=== PATIENT | female | born 1960 | race Caucasian/White ===

== ENCOUNTER 2016-08-14 20:20 | Inpatient (IN) | payer OTHER ==
[2016-08-14] VITALS (10 sets, daily range): BP systolic 69–183; BP diastolic 34–105; PULSE 84–110; RESP 18–36; TEMP 100.4–100.6; O2SAT 35–96
[~2016-08-14] VITALS: Ht 162.6 cm; Wt 96.4 kg
[~2016-08-14 20:20] MED LIST: HYDR-2768 PO; LEVO175T21 PO; MEVA40TA PO
[2016-08-14] MEDS ORDERED: NITROGLYCERIN 2% OINT 1 GM PACKET TOPICAL ONE (20:30)
[2016-08-14] MEDS ORDERED: FUROSEMIDE 100 MG/10 ML VIAL IVP ONE (20:30)
--- NOTE | 2016-08-14 20:39 | PD ---
HPI . Respiratory distress Chief Complaint: Respiratory Distress Time Seen by Provider: 20:26 Travel History International Travel<30 days: No Contact w/Intl Traveler<30days: No Traveled to known affect area: No History of Present Illness HPI Patient is brought in ambulatory by her daughter in respiratory distress. Very little history can be obtained from the patient because she is in respiratory distress. The majority of the history is obtained from her daughter notes her father (the patient's ). She has been sick for about a week with symptoms consistent with UTI. She's had fevers and chills. She's been short of breath. She's had fatigue. She has had a cough and chest pain with coughing. The father reports that she's been delirious for the last 3 days. [id number]: Respiratory SEVERITY: Severe DURATION: One week TIMING: Progressively worsening CONTEXT: Medical history of hypertension, obstructive sleep apnea and hypothyroidism MODIFYING FACTORS: No exacerbating or relieving factors ASSOCIATED SYMPTOMS: Fever, delirium, fatigue and cough PFSH Past Medical History Heart Rhythm Problems: No Cancer: No Cardiac Catheterization: No Cardiovascular Problems: No High Cholesterol: Yes Congestive Heart Failure: No Diabetes: No Endocrine: No Genitourinary: No Hepatitis: No Hiatal Hernia: No Immune Disorder: No Musculoskeletal: No Neurologic: No Psychiatric: No Reproductive: No Respiratory: Yes (SLEEP APNEA) Sleep Apnea: Yes Thyroid Disease: Yes (HYPOTHYRIOD) Tubal Ligation: Yes (1995) Past Surgical History Abdominal Surgery: No AICD: No Cardiac Surgery: No Coronary Artery Bypass Graft: No Ear Surgery: No Endocrine Surgery: No Eye Surgery: No Genitourinary Surgery: No Gynecologic Surgery: Yes (PARTIAL HYSTERECTOMY) Joint Replacement: No Oral Surgery: No Pacemaker: No Thoracic Surgery: No Social History Alcohol Use: No Tobacco Use: Yes (1PPD) Allergies-Medications (Allergen,Severity, Reaction): Coded Allergies: No Known Allergies (Verified , 08/14/16) Reported Meds & Prescriptions Reported Meds & Active Scripts Active Reported Levothyroxine (Levothyroxine Sodium) 50 Mcg Tab 50 Mcg PO DAILY Lovastatin 20 Mg Tab 20 Mg PO HS Levothyroxine (Levothyroxine Sodium) 200 Mcg Tab 200 Mcg PO DAILY Hydrochlorothiazide 12.5 Mg Cap 12.5 Mg PO DAILY Review of Systems ROS Limitations: Clinical Condition Except as stated in HPI: all other systems reviewed are Neg General / Constitutional: Positive: Fever, Chills Cardiovascular: Positive: Chest Pain or Discomfort Respiratory: Positive: Cough, Shortness of Breath Genitourinary: Positive: Urgency, Frequency, Dysuria Musculoskeletal: Positive: Myalgias Neurologic: Positive: Weakness, Change in Mentation Physical Exam Narrative GENERAL: The patient is very cyanotic with sats in the 30s to 40s on presentation. She is lucid. She is able to nod her head yes and no to questions. However, I am reluctant ask her questions because she is so short of breath. SKIN: Warm and dry. HEAD: Atraumatic. Normocephalic. EYES: Pupils equal and round. ENT: No nasal bleeding or discharge. Mucous membranes pink and moist. NECK: Trachea midline. Neck is supple. CARDIOVASCULAR: Regular, tachycardic rhythm. RESPIRATORY: No accessory muscle use. Diffuse rales. GASTROINTESTINAL: Abdomen soft, non-tender, nondistended. MUSCULOSKELETAL: No obvious deformities. One plus pretibial pitting edema. NEUROLOGICAL: Awake and alert. No obvious cranial nerve deficits. Motor grossly within normal limits. Minimal speech due to respiratory distress. PSYCHIATRIC: Unable to assess. Data Data Last Documented VS Vital Signs Date Time Temp Pulse Resp B/P Pulse Ox O2 Delivery O2 Flow Rate FiO2 08/14/16 22:21 92 100 08/14/16 20:54 106 36 BiPAP 08/14/16 20:50 100.6 178/103 08/14/16 20:20 15 Orders Complete Blood Count With Diff (08/14/16 20:26) Comprehensive Metabolic Panel (08/14/16 20:26) B-Type Natriuretic Peptide (08/14/16 20:26) D-Dimer (08/14/16 20:26) Magnesium (Mg) (08/14/16 20:26) Ckmb (Isoenzyme) Profile (08/14/16 20:26) Troponin I (08/14/16 20:26) Urinalysis - C+S If Indicated (08/14/16 20:26) Iv Access Insert/Monitor (08/14/16 20:26) Electrocardiogram (08/14/16 20:26) Ecg Monitoring (08/14/16 20:26) Oximetry (08/14/16 20:26) Oxygen Administration (08/14/16 20:26) Chest, Single Ap (08/14/16 20:26) Urinary Catheter Insert/Apply (08/14/16 20:26) Sodium Chloride 0.9% Flush (Ns Flush) (08/14/16 20:30) Furosemide Inj (Lasix Inj) (08/14/16 20:30) Resp Bipap / Cpap Non Invas Vt (08/14/16 20:26) Nitroglycerin 2% Oint (Nitroglycerin 2% (08/14/16 20:30) Arterial Blood Gas (Abg) (08/14/16 ) CKMB (08/14/16 20:30) CKMB% (08/14/16 20:30) Ceftriaxone Inj (Rocephin Inj) (08/14/16 21:30) Azithromycin Inj (Zithromax Inj) (08/14/16 21:30) Ct Pulmonary Angiogram (08/14/16 21:56) Arterial Blood Gas (Abg) (08/14/16 22:30) Labs Laboratory Tests Test 08/14/16 08/14/16 20:30 20:40 White Blood Count 13.6 TH/MM3 Red Blood Count 5.13 MIL/MM3 Hemoglobin 14.5 GM/DL Hematocrit 44.7 % Mean Corpuscular Volume 87.1 FL Mean Corpuscular Hemoglobin 28.2 PG Mean Corpuscular Hemoglobin 32.4 % Concent Red Cell Distribution Width 16.0 % Platelet Count 423 TH/MM3 Mean Platelet Volume 8.4 FL Neutrophils (%) (Auto) 87.3 % Lymphocytes (%) (Auto) 8.1 % Monocytes (%) (Auto) 4.3 % Eosinophils (%) (Auto) 0.0 % Basophils (%) (Auto) 0.3 % Neutrophils # (Auto) 11.9 TH/MM3 Lymphocytes # (Auto) 1.1 TH/MM3 Monocytes # (Auto) 0.6 TH/MM3 Eosinophils # (Auto) 0.0 TH/MM3 Basophils # (Auto) 0.0 TH/MM3 CBC Comment AUTO DIFF Differential Total Cells 100 Counted Neutrophils % (Manual) 69 % Band Neutrophils % 18 % Lymphocytes % 7 % Monocytes % 1 % Basophils % 1 % Neutrophils # (Manual) 12.4 TH/MM3 Metamyelocytes 1 % Myelocytes 1 % Promyelocytes 2 % Nucleated Red Blood Cells 10 /100 WBC Differential Comment FINAL DIFF MANUAL Platelet Estimate HIGH Platelet Morphology Comment ENLARGED D-Dimer Quantitative (PE/DVT) 1.62 MG/L FEU Sodium Level 135 MEQ/L Potassium Level 3.1 MEQ/L Chloride Level 87 MEQ/L Carbon Dioxide Level 40.7 MEQ/L Anion Gap 7 MEQ/L Blood Urea Nitrogen 23 MG/DL Creatinine 0.77 MG/DL Estimat Glomerular Filtration 78 ML/MIN Rate Random Glucose 204 MG/DL Calcium Level 8.3 MG/DL Magnesium Level 2.8 MG/DL Total Bilirubin 0.4 MG/DL Aspartate Amino Transf 77 U/L (AST/SGOT) Alanine Aminotransferase 72 U/L (ALT/SGPT) Alkaline Phosphatase 143 U/L Total Creatine Kinase 298 U/L Creatine Kinase MB 3.2 NG/ML Creatine Kinase MB % 1.1 % Troponin I 0.09 NG/ML B-Type Natriuretic Peptide 110 PG/ML Total Protein 8.1 GM/DL Albumin 2.5 GM/DL Urine Color YELLOW Urine Turbidity CLEAR Urine pH 6.0 Urine Specific [place] 1.033 Urine Protein 100 mg/dL Urine Glucose (UA) 70 mg/dL Urine Ketones NEG mg/dL Urine Occult Blood SMALL Urine Nitrite NEG Urine Bilirubin NEG Urine Urobilinogen 8.0 MG/DL Urine Leukocyte Esterase NEG Urine RBC 4 /hpf Urine WBC 5 /hpf Urine Squamous Epithelial 1 /hpf Cells Urine Mucus FEW /lpf Microscopic Urinalysis Comment CULT NOT INDICATED MDM Medical Decision Making Medical Screen Exam Complete: Yes Emergency Medical Condition: Yes Medical Record Reviewed: Yes (this patient does not have a whole lot of medical records in our system. She does have a history of hypertension and hypothyroidism.) Interpretation(s) EKG shows sinus tach at 111. No ST segment elevation or depression. Differential Diagnosis Differential diagnosis of dyspnea includes but is not limited to congestive heart failure, pneumonia, wheezing, pneumothorax, pulmonary embolism Narrative Course Patient presents in respiratory distress. Sats quickly improved with oxygen. She has not been placed on BiPAP and sats continued to improve. Her color is much better. Last Impressions Chest X-Ray 08/14/162025 Signed Impressions: Service Date/Time: Sunday, August 14, 2016 20:41 - CONCLUSION: 1. Bibasilar infiltrates, right greater than left 2. Pulmonary venous congestion 3. Cardiomegaly Kieran Ford MD The chest x-ray was independently viewed by me. She had already been given Nitropaste and based upon her physical exam. After seeing the chest x-ray, she was also given Rocephin and Zithromax for pneumonia. CBC & BMP Diagram 08/14/16 20:30 Her CK-MB is normal but her troponin is 0.09. BNP is 110. D-dimer is 1.62. UA is negative. Her blood gasses not in the computer but her PCO2 initially was 90. This patient has respiratory failure and both CHF and pneumonia. She probably also has COPD. Critical Care Narrative Aggregate critical care time was 45 minutes. Time to perform other separately billable procedures was not included in the critical care time. My time did not include minutes spent treating any other patients simultaneously or on activities that did not directly contribute to the patient's treatment. The services I provided to this patient were to treat and/or prevent clinically significant deterioration due to respiratory distress I provided critical care services requiring my management, as noted below: Chart data review, documentation time, medication orders and management, vital sign assessments/reviewing monitor data, ordering and reviewing lab tests, ordering and interpreting/reviewing x-rays and diagnostic studies, care of the patient and discussion of the patient with the admitting physicians Physician Communication Physician Communication Case discussed with Dr. Earl who will be admitting the patient to the ICU. Diagnosis Primary Impression: Respiratory failure Qualified Code: J96.02 - Acute respiratory failure with hypercapnia Additional Impressions: CHF (congestive heart failure) Qualified Code: I50.9 - Acute congestive heart failure, unspecified congestive heart failure type Pneumonia Qualified Code: J18.9 - Pneumonia of both lungs due to infectious organism, unspecified part of lung Admitting Information Admitting Physician Requests: Admit Condition: Serious Gissel Lopez MD Aug 14, 2016 20:39
--- NOTE | 2016-08-14 20:48 | RADRPT ---
EXAM DATE/TIME: 08/14/2016 20:41 [facility] COMPARISON: No previous studies available for comparison. INDICATIONS : Short of breath MEDICAL HISTORY : None. SURGICAL HISTORY : None. ENCOUNTER: Initial ACUITY: 1 week PAIN SCORE: 0/10 LOCATION: chest FINDINGS: A single view of the chest demonstrates bibasilar infiltrates, right greater than left. There is prom inence of the pulmonary vasculature characteristic of pulmonary venous congestion. The heart size is enlarged. Bony structures are grossly intact.. CONCLUSION: 1. Bibasilar infiltrates, right greater than left 2. Pulmonary venous congestion 3. Cardiomegaly Kieran Ford MD on August 14, 2016 at 20:46 Board Certified Radiologist. This report was verified electronically.
[2016-08-14 20:59] LABS: AUTOMATED NEUTROPHIL # 11.9 TH/MM3 (1.8-7.7); BASOPHIL % 0.3 % (0.0-2.0); HEMATOCRIT 44.7 % (35.0-46.0); LYMPH % 8.1 % (9.0-44.0); LYMPHOCYTE # 1.1 TH/MM3 (1.0-4.8); MEAN CELL VOLUME 87.1 FL (80.0-100.0); MEAN CORPUSCULAR HEMOGLOBIN 28.2 PG (27.0-34.0); MEAN CORPUSCULAR HGB CONC 32.4 % (32.0-36.0); MONO % 4.3 % (0.0-8.0); NEUT % 87.3 % (16.0-70.0); PLATELET COUNT 423 TH/MM3 (150-450); RED BLOOD COUNT 5.13 MIL/MM3 (4.00-5.30); WHITE BLOOD COUNT 13.6 TH/MM3 (4.0-11.0)
[2016-08-14 21:01] LABS: BLOOD, URINE SMALL (NEG); COMMENT (UR) CULT NOT INDICATED; CULTURE IF INDICATED CULT NOT INDICATED; GLUCOSE,URINE 70 mg/dL (NEG); KETONE, URINE NEG (NEG); MUCUS URINE FEW /lpf (OCC); NITRITE,URINE NEG (NEG); SQUAMOUS EPITHELIAL CELL URINE 1 /hpf (0-5); URINE COLOR YELLOW (YELLW/STRAW)
[2016-08-14 21:02] LABS: HEMO FLAGS AUTO DIFF
[2016-08-14 21:14] LABS: ANION GAP 7 MEQ/L (5-15); AST (GOT) 77 U/L (15-37); BICARBONATE 40.7 MEQ/L (21.0-32.0); BLOOD UREA NITROGEN 23 MG/DL (7-18); CHLORIDE 87 MEQ/L (98-107); GLOMERULAR FILTRATION RATE 78 ML/MIN (>89); MAGNESIUM 2.8 MG/DL (1.5-2.5); POTASSIUM 3.1 MEQ/L (3.5-5.1); SODIUM (NA) 135 MEQ/L (136-145)
[2016-08-14 21:19] LABS: ALKALINE PHOSPHATASE 143 U/L (45-117); ALT (GPT) 72 U/L (10-53); CREATINE KINASE 298 U/L (26-192); TOTAL BILIRUBIN ADULT 0.4 MG/DL (0.2-1.0)
[2016-08-14] MEDS ORDERED: HYDR12.57 PO (21:26)
[2016-08-14] MEDS ORDERED: LEVO200T4 PO (21:26)
[2016-08-14] MEDS ORDERED: LOVA20TA PO (21:26)
[2016-08-14] MEDS ORDERED: LEVO50TA4 PO (21:27)
[2016-08-14] MEDS ORDERED: AZITHROMYCIN INJ 500 MG in SODIUM CHLOR 0.9% 250 ML INJ 250 ML IV ONE (21:30)
[2016-08-14] MEDS ORDERED: cefTRIAXone INJ 2,000 MG in SODIUM CHLORIDE 0.9% INJ 100 ML IV ONE (21:30)
[2016-08-14 21:31] LABS: CKMB 3.2 NG/ML (0.5-3.6)
[2016-08-14 21:34] LABS: BANDS 18 % (0-6); BASOPHILS 1 % (0-2); CORRECTED NUCLEATED RBC 10 /100 WBC (0-0); METAMYELOCYTES 1 % (0-1); MYELOCYTES 1 % (0-0); NEUTROPHIL # MANUAL DIFF 12.4 TH/MM3 (1.8-7.7); POLYS (SEG NEUTROPHILS) 69 % (16-70); PROMYELOCYTES 2 % (0-0); SCAN/DIFF FINAL DIFF MANUAL; WBC DIFF SAMPLE 100
[2016-08-14 21:35] LABS: PLATELET ESTIMATE SMEAR HIGH (NORMAL); PLATELET MORPHOLOGY ENLARGED (NORMAL)
[2016-08-14] MEDS ORDERED: SUCCINYLCHOLINE CHLORIDE 200 MG/10 ML VIAL IM ONE (22:45)
[2016-08-14] MEDS ORDERED: SUCCINYLCHOLINE CHLORIDE 200 MG/10 ML VIAL ONE (22:45)
[2016-08-14] MEDS ORDERED: PROPOFOL 1000 MG/100 ML BTL IV PRN (22:45)
[2016-08-14] MEDS ORDERED: ETOMIDATE 20 MG/10 ML VIAL IV PUSH ONE (22:45)
[2016-08-14] MEDS ORDERED: MIDAZOLAM 100 MG/100 ML INJ 100 ML IV SCH (23:15)
[2016-08-14] MEDS ORDERED: MISCELLANEOUS NURSING INFORMATION XX SCH (23:15)
[2016-08-14] MEDS ORDERED: CHLORHEXIDINE GLUCONATE 2 % 1 PACK (2 CLOTHS) TOP PRN (23:15)
[2016-08-14] MEDS ORDERED: ONDANSETRON HCL 4 MG/2 ML VIAL IV PRN (23:15)
[2016-08-14] MEDS: DOCUSATE SODIUM 100 MG/10 ML UDC G-TUBE SCH (23:15)
[2016-08-14] MEDS ORDERED: METOCLOPRAMIDE HCL 10 MG/2 ML VIAL IV PRN (23:15)
--- NOTE | 2016-08-14 23:17 | HHI.HP ---
HPI Service Critical Care Medicine Primary Care Physician Unknown Admission Diagnosis RESP FAILURE, PNEUMONIA, CHF Diagnosis: Travel History International Travel<30 Days: No Contact w/Intl Traveler <30 Da: No Traveled to Known Affected Are: No History of Present Illness 56-year-old morbidly obese female brought in the emergency department in respiratory distress. She was intubated by ER attending. She has been sick for about a week with symptoms consistent with UTI. She's had fevers and chills. She's been short of breath. She's had fatigue. She has had a cough and chest pain with coughing. The family reports that she's been delirious for the last 3 days. Review of Systems ROS Unable to obtain patient is intubated Past Family Social History Allergies: Coded Allergies: No Known Allergies (Verified , 08/14/16) Past Medical History Hypothyroidism Dyslipidemia Obstructive sleep apnea Obesity hypoventilation syndrome Tobacco use disorder Past Surgical History Tubal ligation Hysterectomy Reported Medications Reported Meds & Active Scripts Active Reported Levothyroxine (Levothyroxine Sodium) 50 Mcg Tab 50 Mcg PO DAILY Lovastatin 20 Mg Tab 20 Mg PO HS Levothyroxine (Levothyroxine Sodium) 200 Mcg Tab 200 Mcg PO DAILY Hydrochlorothiazide 12.5 Mg Cap 12.5 Mg PO DAILY Active Ordered Medications Current Medications Medications (Trade) Dose Ordered Sig/Josephine Route PRN Reason Start Time Stop Time Status Last Admin Dose Admin IV Flush (NS Flush) 2 ml UNSCH PRN IVF FLUSH AFTER USING IV ACCESS 08/14/16 20:30 Propofol (Diprivan 1000 Mg/100ml Inj) search Sets for Drip. TITRATE PRN IV AGITATION 08/14/16 22:45 08/14/16 23:21 Hydrochlorothiazide (Microzide) 12.5 mg DAILY PO 08/15/16 09:00 Levothyroxine Sodium (Synthroid) 200 mcg DAILY@06 PO 08/15/16 06:00 Pravastatin Sodium 20 mg 20 mg HS PO 08/15/16 21:00 Sodium Chloride (NS 1000 ml Inj) 1,000 ml @ 84 mls/hr [id number] IV 08/14/16 23:09 Sodium Chloride (NS Flush) 2 ml UNSCH PRN IVF FLUSH AFTER USING IV ACCESS 08/14/16 23:15 Sodium Chloride (NS Flush) 2 ml BID IV FLUSH 08/15/16 09:00 Acetaminophen (Tylenol) 650 mg Q6H PRN PO PAIN 1-10 AND/OR FEVER >101F 08/14/16 23:15 Morphine Sulfate (Morphine Inj) 2 mg Q2H PRN IV PAIN SCALE 6 TO 10 08/14/16 23:15 Lorazepam (Ativan Inj) 2 mg Q4H PRN IV Agitation/Sedation 08/14/16 23:15 Artificial Tears (Tears Naturale Opth Soln) 1 drop TID EACH EYE 08/15/16 09:00 Ondansetron HCl (Zofran Inj) 4 mg Q6H PRN IV NAUSEA OR VOMITING 08/14/16 23:15 Metoclopramide HCl (Reglan Inj) 10 mg Q6H PRN IV NAUSEA OR VOMITING 08/14/16 23:15 Docusate Sodium (Colace Liq) 100 mg Q12H G-TUBE 08/14/16 23:15 Heparin Sodium (Porcine) (Heparin Inj) 5,000 units Q8H SQ 08/14/16 23:15 Miscellaneous Information 1 [id number] XX 08/14/16 23:15 Chlorhexidine Gluconate (Chlorhexidine 2% Cloth) 3 pack Taper DAILY@04 TOP 08/15/16 04:00 08/11/17 03:59 Chlorhexidine Gluconate 3 pack 3 pack UNSCH PRN TOP HYGIENIC CARE 08/14/16 23:15 Propofol (Diprivan 1000 Mg/100ml Inj) 100 ml @ 0 mls/hr TITRATE IV 08/14/16 23:15 Protein 2 pack 2 pack TID G-TUBE 08/15/16 09:00 Midazolam HCl 100 ml @ 0 mls/hr TITRATE IV 08/14/16 23:15 Fentanyl Citrate (fentaNYL DRIP) 250 ml @ 0 mls/hr TITRATE IV 08/14/16 23:15 Family History Noncontributory Social History Tobacco use Physical Exam Vital Signs Vital Signs Date Time Temp Pulse Resp B/P Pulse Ox O2 Delivery O2 Flow Rate FiO2 08/14/16 22:21 92 100 08/14/16 20:54 106 36 95 BiPAP 08/14/16 20:50 100.6 110 36 178/103 95 BiPAP 08/14/16 20:37 91 100 08/14/16 20:30 110 36 183/105 92 BiPAP 100 08/14/16 20:20 76 Non-Rebreather 15 08/14/16 20:20 108 28 158/88 35 Room Air Physical Exam GENERAL: Morbidly obese female, intubated, well-developed patient. SKIN: Warm and dry. HEAD: Normocephalic. EYES: No scleral icterus. No injection or drainage. NECK: Supple, trachea midline. No JVD or lymphadenopathy. CARDIOVASCULAR: Regular rate and rhythm without murmurs, gallops, or rubs. RESPIRATORY: Breath sounds equal bilaterally. No accessory muscle use. GASTROINTESTINAL: Abdomen soft, non-tender, nondistended. MUSCULOSKELETAL: No cyanosis, or edema. BACK: Nontender without obvious deformity. No CVA tenderness. EXTREMITIES: No edema clubbing or cyanosis Laboratory Laboratory Tests Test 08/14/16 08/14/16 20:30 20:40 White Blood Count 13.6 Red Blood Count 5.13 Hemoglobin 14.5 Hematocrit 44.7 Mean Corpuscular Volume 87.1 Mean Corpuscular Hemoglobin 28.2 Mean Corpuscular Hemoglobin 32.4 Concent Red Cell Distribution Width 16.0 Platelet Count 423 Mean Platelet Volume 8.4 Neutrophils (%) (Auto) 87.3 Lymphocytes (%) (Auto) 8.1 Monocytes (%) (Auto) 4.3 Eosinophils (%) (Auto) 0.0 Basophils (%) (Auto) 0.3 Neutrophils # (Auto) 11.9 Lymphocytes # (Auto) 1.1 Monocytes # (Auto) 0.6 Eosinophils # (Auto) 0.0 Basophils # (Auto) 0.0 CBC Comment AUTO DIFF Differential Total Cells 100 Counted Neutrophils % (Manual) 69 Band Neutrophils % 18 Lymphocytes % 7 Monocytes % 1 Basophils % 1 Neutrophils # (Manual) 12.4 Metamyelocytes 1 Myelocytes 1 Promyelocytes 2 Nucleated Red Blood Cells 10 Differential Comment FINAL DIFF MANUAL Platelet Estimate HIGH Platelet Morphology Comment ENLARGED D-Dimer Quantitative (PE/DVT) 1.62 Sodium Level 135 Potassium Level 3.1 Chloride Level 87 Carbon Dioxide Level 40.7 Anion Gap 7 Blood Urea Nitrogen 23 Creatinine 0.77 Estimat Glomerular Filtration 78 Rate Random Glucose 204 Calcium Level 8.3 Magnesium Level 2.8 Total Bilirubin 0.4 Aspartate Amino Transf 77 (AST/SGOT) Alanine Aminotransferase 72 (ALT/SGPT) Alkaline Phosphatase 143 Total Creatine Kinase 298 Creatine Kinase MB 3.2 Creatine Kinase MB % 1.1 Troponin I 0.09 B-Type Natriuretic Peptide 110 Total Protein 8.1 Albumin 2.5 Urine Color YELLOW Urine Turbidity CLEAR Urine pH 6.0 Urine Specific [place] 1.033 Urine Protein 100 Urine Glucose (UA) 70 Urine Ketones NEG Urine Occult Blood SMALL Urine Nitrite NEG Urine Bilirubin NEG Urine Urobilinogen 8.0 Urine Leukocyte Esterase NEG Urine RBC 4 Urine WBC 5 Urine Squamous Epithelial 1 Cells Urine Mucus FEW Microscopic Urinalysis Comment CULT NOT INDICATED Result Diagram: 08/14/16202908/14/162029 Imaging Last 24 hours Impressions Chest X-Ray 08/14/162025 Signed Impressions: Service Date/Time: Sunday, August 14, 2016 20:41 - CONCLUSION: 1. Bibasilar infiltrates, right greater than left 2. Pulmonary venous congestion 3. Cardiomegaly Kieran Ford MD Assessment and Plan Problem List: (1) CHF (congestive heart failure) ICD Code: I50.9 Status: Acute (2) Respiratory failure ICD Code: J96.90 Status: Acute (3) Pneumonia ICD Code: J18.9 Status: Acute Assessment and Plan Respiratory failure - Pneumonia community-acquired - Tobacco use disorder - Mechanical ventilation - DuoNeb scheduled and as needed - Broad-spectrum antibiotics - No weaning until acidosis resolves - We'll rule out cardiac origin of the distress with series of troponins and EKGs - Echocardiogram a.m. Pneumonia - Blood culture - Zosyn and azithromycin - Respiratory cultures - Follow-up results and sensitivity - Urine antigens Hypothyroidism - Repeat TSH level - Continue levothyroxine per home dosing Dyslipidemia - Statins DVT GI prophylaxis - Heparin subcutaneous and Pepcid Critical Care: The total critical care time was 35 minutes. Time to perform other separately billable procedures was not included in the critical care time. Problem Qualifiers (1) CHF (congestive heart failure): Qualified Code: I50.9 - Acute congestive heart failure, unspecified congestive heart failure type (2) Respiratory failure: Qualified Code: J96.02 - Acute respiratory failure with hypercapnia (3) Pneumonia: Qualified Code: J18.9 - Pneumonia of both lungs due to infectious organism, unspecified part of lung Arturo Ortiz MD Aug 14, 2016 23:17
[2016-08-14 23:38] LABS: BLOOD GAS BASE EXCESS 18.5 mmol/L (-2-2); BLOOD GAS CARBOXYHEMOGLOBIN 1.4 % (0-4); BLOOD GAS HCO3 46 mmol/L (22-26); BLOOD GAS METHEMOGLOBIN 0.9 % (0-2); BLOOD GAS O2 HGB SATURATION 94 % (90-100); BLOOD GAS OXYGEN CONTENT 19.7 Vol % (12.0-20.0); BLOOD GAS PCO2 95 mmHg (38-42); BLOOD GAS PO2 101 mmHG (61-120); BLOOD GAS TOTAL HGB 14.9 G/DL (12.0-16.0); TEMP CORR TO 98.6
[2016-08-14 23:39] LABS: CRITICAL VALUE YES; DRAW SITE LT RADIAL; FIO2 100 %; NUMBER OF ARTERIAL PUNCTURES 1; OXYGEN DEVICE BIPAP; STAT YES; ULNAR PULSE Y
[2016-08-14 23:40] LABS: BLOOD GAS BASE EXCESS 20.8 mmol/L (-2-2); BLOOD GAS CARBOXYHEMOGLOBIN 1.1 % (0-4); BLOOD GAS HCO3 50 mmol/L (22-26); BLOOD GAS METHEMOGLOBIN 1.2 % (0-2); BLOOD GAS O2 HGB SATURATION 91 % (90-100); BLOOD GAS OXYGEN CONTENT 19.6 Vol % (12.0-20.0); BLOOD GAS PCO2 146 mmHg (38-42); BLOOD GAS PO2 92 mmHG (61-120); BLOOD GAS TOTAL HGB 15.3 G/DL (12.0-16.0); TEMP CORR TO 98.6
[2016-08-14 23:41] LABS: CRITICAL VALUE YES; DRAW SITE LT RADIAL; FIO2 100 %; NUMBER OF ARTERIAL PUNCTURES 1; OXYGEN DEVICE BIPAP; STAT YES; ULNAR PULSE Y
[2016-08-14 23:42] LABS: BLOOD GAS BASE EXCESS 15.8 mmol/L (-2-2); BLOOD GAS CARBOXYHEMOGLOBIN 1.2 % (0-4); BLOOD GAS HCO3 43 mmol/L (22-26); BLOOD GAS METHEMOGLOBIN 0.9 % (0-2); BLOOD GAS O2 HGB SATURATION 90 % (90-100); BLOOD GAS OXYGEN CONTENT 17.6 Vol % (12.0-20.0); BLOOD GAS PCO2 98 mmHg (38-42); BLOOD GAS PO2 75 mmHG (61-120); BLOOD GAS TOTAL HGB 13.9 G/DL (12.0-16.0); TEMP CORR TO 98.6
[2016-08-14 23:43] LABS: CRITICAL VALUE YES; DRAW SITE RT RADIAL; NUMBER OF ARTERIAL PUNCTURES 1; OXYGEN DEVICE VENT; STAT NO; ULNAR PULSE Y
[2016-08-15] VITALS (21 sets, daily range): BP systolic 85–115; BP diastolic 55–66; PULSE 65–83; RESP 18–21; TEMP 98.8–100.6; O2SAT 91–99
--- NOTE | 2016-08-15 00:15 | RADRPT ---
EXAM DATE/TIME: 08/15/2016 00:04 [facility] COMPARISON: CHEST SINGLE AP, August 14, 2016, 20:41. INDICATIONS : Post intubation. MEDICAL HISTORY : None. SURGICAL HISTORY : None. ENCOUNTER: Initial ACUITY: 1 day PAIN SCORE: Non-responsive. LOCATION: Bilateral chest FINDINGS: Bilateral pleural effusions are again seen. Endotracheal tube tip at the inferior margin of the clavi cles. Enteric tube courses beneath the diaphragm. Patchy bilateral airspace disease. CONCLUSION: Endotracheal tube as above. Terry Estrada MD on August 15, 2016 at 0:13 Board Certified Radiologist. This report was verified electronically.
[2016-08-15] MEDS ORDERED: fentaNYL DRIP 250 ML ONE (00:31)
[2016-08-15] MEDS ORDERED: MIDAZOLAM 100 MG/100 ML INJ 100 ML ONE (00:32)
[2016-08-15] MEDS: SODIUM CHLOR 0.9% 1000 ML INJ 1,000 ML IV SCH ×3 (00:49→22:04)
[2016-08-15] MEDS: fentaNYL DRIP 250 ML IV SCH (00:49)
[2016-08-15] MEDS: HEPARIN SODIUM - SQ 10,000 UNITS/ML VIAL SQ SCH ×4 (00:50→22:05)
[2016-08-15] MEDS ORDERED: IOHEXOL 350 MG/ML 10 ML VIAL (for RAD DIAG) IV ONE (02:35)
--- NOTE | 2016-08-15 02:47 | RADRPT ---
EXAM DATE/TIME: 08/15/2016 02:33 [facility] COMPARISON: No previous studies available for comparison. INDICATIONS : Respiratory failure. Elevated D-Dimer. Possible emboli. IV CONTRAST: 72 cc Omnipaque 350 (iohexol) IV RADIATION DOSE: 23.38 CTDIvol (mGy) MEDICAL HISTORY : Hypertension. SURGICAL HISTORY : None. ENCOUNTER: Initial ACUITY: 1 day PAIN SCALE: 0/10 LOCATION: Bilateral chest TECHNIQUE: Volumetric scanning of the chest was performed using a pulmonary embolism protocol MIP images were re constructed. Using automated exposure control and adjustment of the mA and/or kV according to patien t size, radiation dose was kept as low as reasonably achievable to obtain optimal diagnostic quality images. FINDINGS: There is bilateral lower lobe consolidation with air bronchogram formation noted and minimal aerated right lower lobe. Patchy areas of consolidation right middle lobe and both upper lobes also noted. Th ere is subcarinal adenopathy measuring up to 2.1 cm in short axis dimension, right hilar adenopathy u p to 1.9 cm in short axis dimension, and right paratracheal adenopathy up to 1.5 cm in short axis dim ension. There is no evidence for pulmonary embolism. Endotracheal tube is present as well as an NG tu be. CONCLUSION: 1. No evidence for pulmonary embolism. 2. Multifocal consolidation greatest in the right lower lobe and associated adenopathy. Terry Estrada MD on August 15, 2016 at 2:42 Board Certified Radiologist. This report was verified electronically.
[2016-08-15] MEDS: RESP: ALBUTEROL 2.5 MG/IPRATROPIUM 0.5 MG NEB (SCH) INH ×4 (03:06→21:48)
[2016-08-15] MEDS: PIPERACIL-TAZO 4.5 GM PREMIX 100 ML IV SCH ×5 (03:51→22:10)
[2016-08-15] MEDS: CHLORHEXIDINE GLUCONATE 2 % 1 PACK (2 CLOTHS) TOP SCH (04:00)
[2016-08-15 04:17] LABS: BASOPHIL % 0.2 % (0.0-2.0); HEMATOCRIT 36.7 % (35.0-46.0); LYMPH % 7.4 % (9.0-44.0); LYMPHOCYTE # 0.7 TH/MM3 (1.0-4.8); MEAN CELL VOLUME 87.5 FL (80.0-100.0); MEAN CORPUSCULAR HEMOGLOBIN 29.5 PG (27.0-34.0); MEAN CORPUSCULAR HGB CONC 33.7 % (32.0-36.0); NEUT % 89.4 % (16.0-70.0); PLATELET COUNT 340 TH/MM3 (150-450); RED BLOOD COUNT 4.19 MIL/MM3 (4.00-5.30); RED CELL DISTRIBUTION WIDTH 16.3 % (11.6-17.2)
[2016-08-15 04:22] LABS: HEMO FLAGS AUTO DIFF
[2016-08-15 04:29] LABS: BICARBONATE 38.5 MEQ/L (21.0-32.0); CALCIUM-PROTEIN CORRECTED 7.8 MG/DL (8.5-10.1); MAGNESIUM 2.3 MG/DL (1.5-2.5); POTASSIUM 3.3 MEQ/L (3.5-5.1); TOTAL BILIRUBIN ADULT 0.2 MG/DL (0.2-1.0)
--- NOTE | 2016-08-15 05:44 | RADRPT ---
EXAM DATE/TIME: 08/15/2016 04:59 [facility] COMPARISON: CHEST SINGLE AP, August 15, 2016, 0:04. INDICATIONS : Respiratory failure. MEDICAL HISTORY : Unobtainable. SURGICAL HISTORY : Unobtainable. ENCOUNTER: Subsequent ACUITY: 1 day PAIN SCORE: Non-responsive. LOCATION: Bilateral chest FINDINGS: There is consolidation within both lower lobes. Endotracheal tube tip at the inferior margin of the c lavicles. NG tube courses beneath the diaphragm. Cardiomegaly. CONCLUSION: Pulmonary consolidation as above. Terry Estrada MD on August 15, 2016 at 5:42 Board Certified Radiologist. This report was verified electronically.
[2016-08-15] MEDS: LEVOTHYROXINE SODIUM 200 MCG TAB PO SCH (06:00)
[2016-08-15 06:35] LABS: BLOOD GAS BASE EXCESS 13.4 mmol/L (-2-2); BLOOD GAS CARBOXYHEMOGLOBIN 1.5 % (0-4); BLOOD GAS HCO3 38 mmol/L (22-26); BLOOD GAS METHEMOGLOBIN 1.2 % (0-2); BLOOD GAS O2 HGB SATURATION 91 % (90-100); BLOOD GAS OXYGEN CONTENT 16.1 Vol % (12.0-20.0); BLOOD GAS PCO2 50 mmHg (38-42); BLOOD GAS PO2 65 mmHg (61-120); BLOOD GAS TOTAL HGB 12.6 G/DL (12.0-16.0); CRITICAL VALUE NO; OXYGEN DEVICE VENTILATOR; TEMP CORR TO 98.6
[2016-08-15 06:36] LABS: DRAW SITE RT BRACHIAL; FIO2 75 %; NUMBER OF ARTERIAL PUNCTURES 1; STAT NO; VENT SETTINGS PRVC/AC
[2016-08-15 06:50] LABS: BANDS 6 % (0-6); CORRECTED NUCLEATED RBC 8 /100 WBC (0-0); NEUTROPHIL # MANUAL DIFF 8.6 TH/MM3 (1.8-7.7); POLYS (SEG NEUTROPHILS) 90 % (16-70); WBC DIFF SAMPLE 100
[2016-08-15 06:51] LABS: PLATELET ESTIMATE SMEAR NORMAL (NORMAL); PLATELET MORPHOLOGY NORMAL (NORMAL); SCAN/DIFF FINAL DIFF MANUAL
[2016-08-15] MEDS ORDERED: POTASSIUM PHOSPHATE INJ 30 MMOL in SODIUM CHLOR 0.9% 250 ML INJ 250 ML IV PRN (08:15)
[2016-08-15] MEDS ORDERED: POTASSIUM PHOSPHATE MONOBASIC 500 MG TAB PO/TUBE PRN (08:15)
[2016-08-15] MEDS ORDERED: SODIUM PHOSPHATE INJ 30 MMOL in SODIUM CHLOR 0.9% 250 ML INJ 240 ML IV PRN (08:15)
[2016-08-15] MEDS ORDERED: POTASSIUM PHOSPHATE MONOBASIC 500 MG TAB PO PRN (08:15)
[2016-08-15] MEDS ORDERED: MAGNESIUM OXIDE 400 MG TAB PO PRN (08:15)
[2016-08-15] MEDS ORDERED: MAGNESIUM SULFATE INJ 2 GM in SODIUM CHLORIDE 0.9% INJ 96 ML IV PRN (08:15)
[2016-08-15] MEDS ORDERED: MAGNESIUM SULFATE INJ 4 GM in SODIUM CHLORIDE 0.9% INJ 92 ML IV PRN (08:15)
[2016-08-15] MEDS: ARTIFICIAL TEARS OPTH SOLN 15 ML BTL EACH EYE SCH ×3 (08:23→17:01)
[2016-08-15] MEDS: BENEPROTEIN POWDER 1 PACK G-TUBE SCH ×3 (08:24→17:01)
[2016-08-15] MEDS: SODIUM CHLORIDE 0.9% FLUSH 10 ML FLUSH IV FLUSH SCH ×2 (08:25→21:00)
[2016-08-15] MEDS: SODIUM CHLORIDE 0.9% FLUSH 5 ML FLUSH IVF PRN ×2 (08:25→21:58)
--- NOTE | 2016-08-15 08:49 | HHI.CCPN ---
Subjective Remarks/Hospital Course 56-year-old morbidly obese female brought in the emergency department in respiratory distress. She was intubated by ER attending. She has been sick for about a week with symptoms consistent with UTI. She's had fevers and chills. She's been short of breath. She's had fatigue. She has had a cough and chest pain with coughing. The family reports that she's been delirious for the last 3 days. 08/15 Patient is sedated with Diprivan, Versed, Fentanyl and intubated. CTA chest showed no PE multifocal consolidation greatest in RLL. Tmax 100.6 Objective Vital Signs Date Time Temp Pulse Resp B/P Pulse Ox O2 Delivery O2 Flow Rate FiO2 08/15/16 07:22 93 50 08/15/16 06:00 69 08/15/16 04:00 99.4 18 101/56 08/15/16 01:05 Ventilator 08/14/16 20:20 15 Result Diagram: 08/15/16 0349 08/15/16 0349 Other Results Laboratory Tests Test 08/14/16 08/14/16 08/14/16 08/14/16 20:30 20:40 21:19 22:30 White Blood Count 13.6 TH/MM3 Red Blood Count 5.13 MIL/MM3 Hemoglobin 14.5 GM/DL Hematocrit 44.7 % Mean Corpuscular Volume 87.1 FL Mean Corpuscular Hemoglobin 28.2 PG Mean Corpuscular Hemoglobin 32.4 % Concent Red Cell Distribution Width 16.0 % Platelet Count 423 TH/MM3 Mean Platelet Volume 8.4 FL Neutrophils (%) (Auto) 87.3 % Lymphocytes (%) (Auto) 8.1 % Monocytes (%) (Auto) 4.3 % Eosinophils (%) (Auto) 0.0 % Basophils (%) (Auto) 0.3 % Neutrophils # (Auto) 11.9 TH/MM3 Lymphocytes # (Auto) 1.1 TH/MM3 Monocytes # (Auto) 0.6 TH/MM3 Eosinophils # (Auto) 0.0 TH/MM3 Basophils # (Auto) 0.0 TH/MM3 CBC Comment AUTO DIFF Differential Total Cells 100 Counted Neutrophils % (Manual) 69 % Band Neutrophils % 18 % Lymphocytes % 7 % Monocytes % 1 % Basophils % 1 % Neutrophils # (Manual) 12.4 TH/MM3 Metamyelocytes 1 % Myelocytes 1 % Promyelocytes 2 % Nucleated Red Blood Cells 10 /100 WBC Differential Comment FINAL DIFF MANUAL Platelet Estimate HIGH Platelet Morphology Comment ENLARGED D-Dimer Quantitative (PE/DVT) 1.62 MG/L FEU Sodium Level 135 MEQ/L Potassium Level 3.1 MEQ/L Chloride Level 87 MEQ/L Carbon Dioxide Level 40.7 MEQ/L Anion Gap 7 MEQ/L Blood Urea Nitrogen 23 MG/DL Creatinine 0.77 MG/DL Estimat Glomerular Filtration 78 ML/MIN Rate Random Glucose 204 MG/DL Calcium Level 8.3 MG/DL Magnesium Level 2.8 MG/DL Total Bilirubin 0.4 MG/DL Aspartate Amino Transf 77 U/L (AST/SGOT) Alanine Aminotransferase 72 U/L (ALT/SGPT) Alkaline Phosphatase 143 U/L Total Creatine Kinase 298 U/L Creatine Kinase MB 3.2 NG/ML Creatine Kinase MB % 1.1 % Troponin I 0.09 NG/ML B-Type Natriuretic Peptide 110 PG/ML Total Protein 8.1 GM/DL Albumin 2.5 GM/DL Urine Color YELLOW Urine Turbidity CLEAR Urine pH 6.0 Urine Specific [place] 1.033 Urine Protein 100 mg/dL Urine Glucose (UA) 70 mg/dL Urine Ketones NEG mg/dL Urine Occult Blood SMALL Urine Nitrite NEG Urine Bilirubin NEG Urine Urobilinogen 8.0 MG/DL Urine Leukocyte Esterase NEG Urine RBC 4 /hpf Urine WBC 5 /hpf Urine Squamous Epithelial 1 /hpf Cells Urine Mucus FEW /lpf Microscopic Urinalysis Comment CULT NOT INDICATED Blood Gas Puncture Site LT RADIAL LT RADIAL Blood Gas Patient Temperature 98.6 98.6 Blood Gas HCO3 46 mmol/L 50 mmol/L Blood Gas Base Excess 18.5 mmol/L 20.8 mmol/L Blood Gas Oxygen Saturation 94 % 91 % Arterial Blood pH 7.30 7.16 Arterial Blood Partial 95 mmHg 146 mmHg Pressure CO2 Arterial Blood Partial 101 mmHG 92 mmHG Pressure O2 Arterial Blood Oxygen Content 19.7 Vol % 19.6 Vol % Arterial Blood 1.4 % 1.1 % Carboxyhemoglobin Arterial Blood Methemoglobin 0.9 % 1.2 % Blood Gas Hemoglobin 14.9 G/DL 15.3 G/DL Oxygen Delivery Device BIPAP BIPAP Blood Gas Ventilator Setting SEE COMMENT SEE COMMENT Blood Gas Inspired Oxygen 100 % 100 % Test 08/14/16 08/15/16 08/15/16 08/15/16 23:30 03:17 03:49 06:20 Blood Gas Puncture Site RT RADIAL RT BRACHIAL Blood Gas Patient Temperature 98.6 98.6 Blood Gas HCO3 43 mmol/L 38 mmol/L Blood Gas Base Excess 15.8 mmol/L 13.4 mmol/L Blood Gas Oxygen Saturation 90 % 91 % Arterial Blood pH 7.27 7.49 Arterial Blood Partial 98 mmHg 50 mmHg Pressure CO2 Arterial Blood Partial 75 mmHG 65 mmHg Pressure O2 Arterial Blood Oxygen Content 17.6 Vol % 16.1 Vol % Arterial Blood 1.2 % 1.5 % Carboxyhemoglobin Arterial Blood Methemoglobin 0.9 % 1.2 % Blood Gas Hemoglobin 13.9 G/DL 12.6 G/DL Oxygen Delivery Device VENT VENTILATOR Blood Gas Ventilator Setting SEE COMMENT PRVC/AC Nasal Screen MRSA (PCR) NEGATIVE White Blood Count 9.0 TH/MM3 Red Blood Count 4.19 MIL/MM3 Hemoglobin 12.4 GM/DL Hematocrit 36.7 % Mean Corpuscular Volume 87.5 FL Mean Corpuscular Hemoglobin 29.5 PG Mean Corpuscular Hemoglobin 33.7 % Concent Red Cell Distribution Width 16.3 % Platelet Count 340 TH/MM3 Mean Platelet Volume 8.4 FL Neutrophils (%) (Auto) 89.4 % Lymphocytes (%) (Auto) 7.4 % Monocytes (%) (Auto) 3.0 % Eosinophils (%) (Auto) 0.0 % Basophils (%) (Auto) 0.2 % Neutrophils # (Auto) 8.0 TH/MM3 Lymphocytes # (Auto) 0.7 TH/MM3 Monocytes # (Auto) 0.3 TH/MM3 Eosinophils # (Auto) 0.0 TH/MM3 Basophils # (Auto) 0.0 TH/MM3 CBC Comment AUTO DIFF Differential Total Cells 100 Counted Neutrophils % (Manual) 90 % Band Neutrophils % 6 % Lymphocytes % 3 % Monocytes % 1 % Neutrophils # (Manual) 8.6 TH/MM3 Nucleated Red Blood Cells 8 /100 WBC Differential Comment FINAL DIFF MANUAL Platelet Estimate NORMAL Platelet Morphology Comment NORMAL Sodium Level 139 MEQ/L Potassium Level 3.3 MEQ/L Chloride Level 95 MEQ/L Carbon Dioxide Level 38.5 MEQ/L Anion Gap 6 MEQ/L Blood Urea Nitrogen 20 MG/DL Creatinine 0.63 MG/DL Estimat Glomerular Filtration 98 ML/MIN Rate Random Glucose 129 MG/DL Calcium Level 7.4 MG/DL Protein Corrected Calcium 7.8 MG/DL Phosphorus Level 3.4 MG/DL Magnesium Level 2.3 MG/DL Total Bilirubin 0.2 MG/DL Aspartate Amino Transf 61 U/L (AST/SGOT) Alanine Aminotransferase 55 U/L (ALT/SGPT) Alkaline Phosphatase 113 U/L Troponin I 0.09 NG/ML Total Protein 6.4 GM/DL Albumin 1.9 GM/DL Blood Gas Inspired Oxygen 75 % Imaging Last Impressions Chest X-Ray 08/15/16 0000 Signed Impressions: Service Date/Time: Monday, August 15, 2016 04:59 - CONCLUSION: Pulmonary consolidation as above. Terry Estrada MD CT Angiography 08/15/16 0000 Signed Impressions: Service Date/Time: Monday, August 15, 2016 02:33 - CONCLUSION: 1. No evidence for pulmonary embolism. 2. Multifocal consolidation greatest in the right lower lobe and associated adenopathy. Terry Estrada MD Objective Remarks GENERAL: Patient is intubated and sedated SKIN: Warm and dry. HEAD: Normocephalic. EYES: No scleral icterus. No injection or drainage. NECK: Supple, trachea midline. No JVD or lymphadenopathy. CARDIOVASCULAR: Regular rate and rhythm without murmurs, gallops, or rubs. RESPIRATORY: Breath sounds equal bilaterally. No accessory muscle use. GASTROINTESTINAL: Abdomen soft, non-tender, nondistended. MUSCULOSKELETAL: No cyanosis, or edema. Neuro: Sedated A/P Problem List: (1) CHF (congestive heart failure) ICD Code: I50.9 Status: Acute (2) Respiratory failure ICD Code: J96.90 Status: Acute (3) Pneumonia ICD Code: J18.9 Status: Acute Assessment and Plan 1)Acute hypercapnic and hypoxemic resp failure 2)Pneumonia community-acquired 3)Elevated LFT 4)Hypokalemia 5)Hypothyroidism 6)Dyslipidemia 7)Mild elevated trop likely 2nd resp failure 8)Morbid obesity Plan Neuro: On Diprivan, Versed, Fentanyl for sedation. Daily sedation vacation. Pulm: On PRVC/AC RR 18, TV 500, PEEP 5, IT: 1.0 and FIO2 75%. Decrease FIO2 as tiki. Continue with vent support keep sat >92% Bronchodilators, place on solumederol 60mg Q8 ICU vent bundle. CV: Monitor HR and BP keep MAP>65mmg Check 2D echo to eval LV function. : Monitor renal function, I/O's. electrolytes replacement per protocol. Will need K replacement today. On NS@84ml/hr GI: Monitor LFT's, check US liver. Place on Protonix 40mg daily for GI prophylaxis Start TF Glucerna 1.5 with goal rate 45ml/hr ID: Continue with abx ( Zithromax, Zosyn) monitor for signs of infections. Check sputum cx, follow up on strep pneumonia and Legionella urinary Ag Heme: Monitor CBC Endo: SSI for glycemic control GI prophylaxis- Protonix 40mg daily DVT prophylaxis- On Heparin SQ CCT 30 mins Problem Qualifiers (1) CHF (congestive heart failure): Qualified Code: I50.9 - Acute congestive heart failure, unspecified congestive heart failure type (2) Respiratory failure: Qualified Code: J96.02 - Acute respiratory failure with hypercapnia (3) Pneumonia: Qualified Code: J18.9 - Pneumonia of both lungs due to infectious organism, unspecified part of lung Ute Santamaria MD Aug 15, 2016 08:49
[2016-08-15] MEDS ORDERED: HYDROCHLOROTHIAZIDE 12.5 MG CAP PO SCH (09:00)
[2016-08-15] MEDS ORDERED: CALCIUM GLUCONATE INJ 1 GM in SODIUM CHLORIDE 0.9% INJ 100 ML IV ONE (09:40)
[2016-08-15] MEDS: POTASSIUM CHLOR 20 MEQ PREMIX 100 ML IV PRN ×2 (09:55→11:32)
--- NOTE | 2016-08-15 10:06 | EKG ---
Date Performed: 08/14/2016 Time Performed: 20:27:09 PTAGE: 56 years EKG: SINUS TACHYCARDIA ABNORMAL RHYTHM ECG PREVIOUS TRACING : 02/10/2015 08.16 DOCTOR: Nilesh Martinez Interpretating Date/Time 08/15/2016 10:04:50
[2016-08-15] MEDS: PANTOPRAZOLE SODIUM 40 MG VIAL IV PUSH SCH (11:29)
[2016-08-15] MEDS: methylPREDNISolone SOD SUCC 125 MG/2 ML VIAL IV SCH ×3 (11:30→21:58)
[2016-08-15] MEDS: DOCUSATE SODIUM 100 MG/10 ML UDC G-TUBE SCH ×2 (11:30→22:05)
--- NOTE | 2016-08-15 12:18 | EC ---
Study Study Date:08/15/2016 STUDY CONCLUSIONS SUMMARY - Procedure narrative: Transthoracic echocardiography. Image quality was fair. Scanning was performed from the parasternal, apical, and subcostal acoustic windows. - Left ventricle: The cavity size was normal. Wall thickness was normal. Systolic function was vigorous. The estimated ejection fraction was in the range of 65% to 70%. Although no diagnostic regional wall motion abnormality was identified, this possibility cannot be completely excluded on the basis of this study. - Aortic valve: Trileaflet; possible mild leaflet sclerosis. Trace regurgitation. - Tricuspid valve: Trace regurgitation. If LV function is below 40, please consider prescribing an ACEI or ARB or document rationale for non-use. PROCEDURE DATA STUDY STATUS: Elective. Procedure: Transthoracic echocardiography. Image quality was fair. Scanning was performed from the parasternal, apical, and subcostal acoustic windows. Study completion: The patient tolerated the procedure well. Transthoracic echocardiography. M-mode, complete 2D, complete spectral Doppler, and color Doppler. Weight: Weight: 199.6lb. Patient status: Inpatient. CARDIAC ANATOMY LEFT VENTRICLE: The cavity size was normal. Wall thickness was normal. Systolic function was vigorous. The estimated ejection fraction was in the range of 65% to 70%. Although no diagnostic regional wall motion abnormality was identified, this possibility cannot be completely excluded on the basis of this study. AORTIC VALVE: Trileaflet; possible mild leaflet sclerosis. Doppler: Transvalvular velocity was within the normal range. There was no stenosis. Trace regurgitation. Mean gradient: 6mm Hg (S). Peak gradient: 11mm Hg (S). AORTA: Aortic root: The aortic root was normal in size. MITRAL VALVE: Structurally normal valve. Doppler: Transvalvular velocity was within the normal range. There was no evidence for stenosis. No regurgitation. Peak gradient: 2mm Hg (D). LEFT ATRIUM: The atrium was normal in size. RIGHT VENTRICLE: The cavity size was normal. Wall thickness was normal. PULMONIC VALVE: Doppler: Transvalvular velocity was within the normal range. There was no evidence for stenosis. No regurgitation. TRICUSPID VALVE: Structurally normal valve. Doppler: Transvalvular velocity was within the normal range. Trace regurgitation. PULMONARY ARTERY: The main pulmonary artery was normal-sized. Systolic pressure was within the normal range. RIGHT ATRIUM: The atrium was normal in size. PERICARDIUM: There was no pericardial effusion. SYSTEMIC VEINS: Inferior vena cava: The vessel was normal in size. Patient weight: 199.6lb _Ejection fraction:_ 65-75% _Fractional shortening:_ 32% up to 5Kg 5-11.5Kg 11.6-22.9Kg 23-45Kg 45-57Kg Aortic Root 7-13 <17 13-22 17-27 17-27 LA diam 6-13 <23 24-38 33-47 37-40 RVID 10-17 7-15 7-15 7-18 8-17 LVIDd 12-22 <32 24-38 33-47 37-40 LVPW 2-4 3-6 5-7 6-8 7-8 IVS 2-4 3-6 5-7 6-8 7-8 BASIC MEASUREMENTS ADULT Normal Left ventricle LV internal dimension, ED, chordal level, 45.1 mm 43-52 PLAX LV internal dimension, ES, chordal level, 35 mm 23-38 PLAX Fractional shortening, chordal level, PLAX *22 % >29 LV posterior wall thickness, ED 7.76 mm IVS/LVPW ratio, ED *1.31 <1.3 Ventricular septum Septal thickness, ED 10.2 mm Aortic valve Leaflet separation 18 mm 15-26 Left atrium Anterior-posterior dimension 32 mm Right ventricle RV internal dimension, ED, PLAX 25.1 mm 19-38 BASIC MEASUREMENTS ADULT Normal Aortic valve Leaflet separation 18 mm 15-26 Aorta Root diameter, ED 36 mm 20-37 DOPPLER MEASUREMENTS ADULT Normal Aortic valve Peak velocity, S 168 cm/s Mean velocity, S 112 cm/s VTI, S 39.4 cm Mean gradient, S 6 mm Hg Peak gradient, S 11 mm Hg Mitral valve Peak E-wave velocity 72.6 cm/s Peak A-wave velocity 69.1 cm/s Peak gradient, D 2 mm Hg Peak E/A ratio 1.1 Tricuspid valve Regurgitant peak velocity 263 cm/s Peak RV-RA gradient, S 28 mm Hg LEGEND: Mean values are shown as u=mean value. Asterisk (*) newton values outside specified normal range. Prepared and signed by Levi Pratt [id number]
[2016-08-15 14:11] LABS: BLOOD GAS BASE EXCESS 13.6 mmol/L (-2-2); BLOOD GAS CARBOXYHEMOGLOBIN 1.3 % (0-4); BLOOD GAS HCO3 39 mmol/L (22-26); BLOOD GAS METHEMOGLOBIN 1.2 % (0-2); BLOOD GAS O2 HGB SATURATION 89 % (90-100); BLOOD GAS OXYGEN CONTENT 16.3 Vol % (12.0-20.0); BLOOD GAS PCO2 57 mmHg (38-42); BLOOD GAS PO2 66 mmHg (61-120); BLOOD GAS TOTAL HGB 12.9 G/DL (12.0-16.0); TEMP CORR TO 98.6
[2016-08-15 14:12] LABS: CRITICAL VALUE YES; DRAW SITE RT RADIAL; FIO2 65 %; NUMBER OF ARTERIAL PUNCTURES 1; OXYGEN DEVICE VENTILATOR; STAT NO; ULNAR PULSE PRESENT; VENT SETTINGS SEE COMMENTS
[2016-08-15] MEDS: PROPOFOL 1000 MG/100 ML INJ 100 ML IV SCH ×2 (17:02→22:30)
--- NOTE | 2016-08-15 18:11 | RADRPT ---
EXAM DATE/TIME: 08/15/2016 15:45 [facility] COMPARISON: No previous studies available for comparison. INDICATIONS : Increased lab values. MEDICAL HISTORY : Hypercholesterolemia. Hypertension. Hypothyroidism. Sleep apnea. SURGICAL HISTORY : Tubal ligation. Hysterectomy. ENCOUNTER: Initial ACUITY: 1 day PAIN SCORE: Nonresponsive. LOCATION: Bilateral upper quadrant MEASUREMENTS: LIVER: 23.4 cm length COMMON DUCT: 9 mm RIGHT KIDNEY: 12.8 x 5.8 x 6.6 cm SPLEEN: 10.7 cm length FINDINGS: The liver is slightly echogenic which maybe due to fatty infiltration and or hepatocellular dysfuncti on. The gallbladder has a stone in the neck with slight gallbladder wall thickening, and no perichole cystic fluid. The visualized head of the pancreas, and right kidney appear grossly intact for techni que. CONCLUSION: Fatty liver and cholelithiasis. Common bile duct is dilated and common bile duct ston e is not excluded. Danyel Escalante MD on August 15, 2016 at 18:08 Board Certified Radiologist. This report was verified electronically.
[2016-08-15 18:26] LABS: ALKALINE PHOSPHATASE 113 U/L (45-117); TOTAL BILIRUBIN ADULT 0.3 MG/DL (0.2-1.0)
[2016-08-15 18:49] LABS: ALT (GPT) 54 U/L (10-53); ANION GAP 7 MEQ/L (5-15); AST (GOT) 63 U/L (15-37); BICARBONATE 34.7 MEQ/L (21.0-32.0); BLOOD UREA NITROGEN 16 MG/DL (7-18); CHLORIDE 97 MEQ/L (98-107); GLOMERULAR FILTRATION RATE 104 ML/MIN (>89); MAGNESIUM 2.4 MG/DL (1.5-2.5); POTASSIUM 3.8 MEQ/L (3.5-5.1); SODIUM (NA) 139 MEQ/L (136-145)
--- NOTE | 2016-08-15 21:35 | MB ---
cc: ELGIN SANTAMARIA M.D., JOHN DATE OF CONSULTATION: 08/15/2016 REASON FOR CONSULTATION: Respiratory failure and possible sleep apnea. HISTORY OF PRESENT ILLNESS: This is a 56 year-old extremely obese white female who was brought to the emergency room with severe respiratory distress and respiratory failure. The patient was intubated in the ER for respiratory failure and placed on ventilator support. She was suspected to have UTI as well as pneumonia, and a chest x-ray done upon admission demonstrated evidence of infiltrates in the lower lung palafox and patchy bilateral pulmonary infiltreates. CT angiogram was done today which showed no evidence of pulmonary emboli but had multifocal consolidation moreso on the right lower lobe and adenopathy in the hilar areas. The patient's blood gases showed evidence of hypercapnia and hypoxemia. She is presently on 70% FIO2. PEEP of 10. The cultures on blood and sputum have not grown anything specific. PAST HISTORY The patient's past history has included dyslipidemia, hypothyroidism, obstructive sleep apnea, COPD. PAST SURGICAL HISTORY: Hysterectomy, tubal ligation. HABITS The patient was a prior smoker for over 10 years. Alcohol use unknown. FAMILY HISTORY: Noncontributory. MEDICATIONS: 1. Lovastatin 20 milligrams hs. 2. Synthroid 50 micrograms a day. 3. Hydrochlorothiazide 12.5 milligrams a day. SYSTEM REVIEW: The patient is intubated on ventilatory support. ALLERGIES No drug allergies are listed. PHYSICAL EXAMINATION This is an obese middle-aged white female who is sedated. She does open her eyes. She is intubated orally assisting the ventilator. VITAL SIGNS: Blood pressure 170/90, pulse is 110, respirations 26, temperature 100.4. HEENT: Head normocephalic. Pupils reactive and equal. Sclerae are injected. Throat has secretions. Nasal mucosa injected. Neck: Supple. No bruits, no thyroid enlargement, no lymphadenopathy. Chest: Distant breath sounds. Expiratory wheezes in the upper lung palafox. No crackles on both sides. Heart: Heart sounds were regular. S1-S2 no murmur, no S3. Abdomen: Soft, benign. No masses, no organomegaly or tenderness. Bowel sounds are active. Extremities: Mild edema with no calf tenderness. Reflexes are not elicited. She is sedated. IMPRESSION 1. Acute hypercapnic respiratory failure. 2. Pulmonary edema. 3. Basilar pneumonia 4. Obstructive sleep apnea syndrome 5. Hypertension 6. Hypothyroidism. 7. Obesity. PLAN The patient is already on antibiotic coverage which we will continue, Solu-Medrol 60 mg IV q. 8 hours could be continued as well. The patient will be given nebulized DuoNeb solution q.i.d. and sedation will be maintained for ventilator control. Cultures from the trach aspirated and blood cultures are pending. Mucomyst 2 cc 20% added with nebulizer solution. Repeat chest x-ray will be done in the a.m. If we can wean her down to 40% FIO2, attempts will be made to wean her to C-PAP and hopefully extubate. Thank you Dr. Santamaria for this consultation. MD JOSY Reis/JORGE /8:04 PM /9:26 PM
[2016-08-15] MEDS: PRAVASTATIN SOD 20 MG TAB PO SCH (21:58)
[2016-08-15] MEDS: AZITHROMYCIN INJ 500 MG in SODIUM CHLOR 0.9% 250 ML INJ 250 ML IV SCH ×3 (22:11)
[2016-08-16] VITALS (19 sets, daily range): BP systolic 97–129; BP diastolic 60–74; PULSE 55–94; RESP 18–24; TEMP 98.4–99.4; O2SAT 89–98
[2016-08-16] MEDS: PROPOFOL 1000 MG/100 ML INJ 100 ML IV SCH ×5 (02:31→22:22)
--- NOTE | 2016-08-16 02:57 | RADRPT ---
EXAM DATE/TIME: 08/16/2016 02:14 [facility] COMPARISON: CHEST SINGLE AP, August 15, 2016, 4:59. INDICATIONS : Shortness of breath. MEDICAL HISTORY : Hypertension. SURGICAL HISTORY : None. ENCOUNTER: Subsequent ACUITY: 2 days PAIN SCORE: Non-responsive. LOCATION: Bilateral chest FINDINGS: Cardiomegaly and patchy bilateral airspace disease increased from previous. Endotracheal tube in sati sfactory position. Enteric tube courses beneath the diaphragm. CONCLUSION: Increasing consolidation. Terry Estrada MD on August 16, 2016 at 2:55 Board Certified Radiologist. This report was verified electronically.
[2016-08-16] MEDS: RESP: ALBUTEROL 2.5 MG/IPRATROPIUM 0.5 MG NEB (SCH) INH ×4 (03:31→21:48)
[2016-08-16] MEDS: CHLORHEXIDINE GLUCONATE 2 % 1 PACK (2 CLOTHS) TOP SCH (04:00)
[2016-08-16 05:15] LABS: AUTOMATED NEUTROPHIL # 6.1 TH/MM3 (1.8-7.7); BASOPHIL % 0.4 % (0.0-2.0); HEMATOCRIT 35.5 % (35.0-46.0); LYMPH % 5.9 % (9.0-44.0); LYMPHOCYTE # 0.4 TH/MM3 (1.0-4.8); MEAN CELL VOLUME 90.2 FL (80.0-100.0); MEAN CORPUSCULAR HEMOGLOBIN 29.2 PG (27.0-34.0); MEAN CORPUSCULAR HGB CONC 32.4 % (32.0-36.0); NEUT % 89.7 % (16.0-70.0); PLATELET COUNT 339 TH/MM3 (150-450); RED BLOOD COUNT 3.93 MIL/MM3 (4.00-5.30); RED CELL DISTRIBUTION WIDTH 16.4 % (11.6-17.2); WHITE BLOOD COUNT 6.8 TH/MM3 (4.0-11.0)
[2016-08-16] MEDS: fentaNYL DRIP 250 ML IV SCH ×3 (05:18→22:23)
[2016-08-16 05:22] LABS: HEMO FLAGS AUTO DIFF
[2016-08-16] MEDS: methylPREDNISolone SOD SUCC 125 MG/2 ML VIAL IV SCH ×3 (05:23→20:58)
[2016-08-16] MEDS: LEVOTHYROXINE SODIUM 200 MCG TAB PO SCH (05:23)
[2016-08-16 05:35] LABS: ALT (GPT) 51 U/L (10-53); ANION GAP 6 MEQ/L (5-15); AST (GOT) 51 U/L (15-37); BICARBONATE 36.6 MEQ/L (21.0-32.0); BLOOD UREA NITROGEN 18 MG/DL (7-18); CHLORIDE 99 MEQ/L (98-107); GLOMERULAR FILTRATION RATE 134 ML/MIN (>89); MAGNESIUM 2.7 MG/DL (1.5-2.5); POTASSIUM 3.3 MEQ/L (3.5-5.1); SODIUM (NA) 142 MEQ/L (136-145)
[2016-08-16 05:37] LABS: ALKALINE PHOSPHATASE 106 U/L (45-117); TOTAL BILIRUBIN ADULT 0.3 MG/DL (0.2-1.0)
[2016-08-16] MEDS: PIPERACIL-TAZO 4.5 GM PREMIX 100 ML IV SCH ×4 (06:38→23:02)
[2016-08-16 07:33] LABS: BANDS 22 % (0-6); CORRECTED NUCLEATED RBC 2 /100 WBC (0-0); METAMYELOCYTES 1 % (0-1); NEUTROPHIL # MANUAL DIFF 6.4 TH/MM3 (1.8-7.7); POLYS (SEG NEUTROPHILS) 71 % (16-70); WBC DIFF SAMPLE 100
[2016-08-16 07:34] LABS: PLATELET ESTIMATE SMEAR NORMAL (NORMAL); PLATELET MORPHOLOGY NORMAL (NORMAL); SCAN/DIFF FINAL DIFF MANUAL
[2016-08-16] MEDS: PANTOPRAZOLE SODIUM 40 MG VIAL IV PUSH SCH (08:01)
[2016-08-16] MEDS: HEPARIN SODIUM - SQ 10,000 UNITS/ML VIAL SQ SCH ×3 (08:01→22:22)
[2016-08-16] MEDS: SODIUM CHLORIDE 0.9% FLUSH 5 ML FLUSH IVF PRN ×2 (08:02→20:57)
[2016-08-16] MEDS: SODIUM CHLORIDE 0.9% FLUSH 10 ML FLUSH IV FLUSH SCH ×2 (08:03→20:58)
[2016-08-16] MEDS: BENEPROTEIN POWDER 1 PACK G-TUBE SCH ×3 (08:03→17:44)
[2016-08-16] MEDS ORDERED: DEXTROSE 50% IN WATER 50 ML VIAL(D50) IV PUSH PRN (09:15)
[2016-08-16] MEDS ORDERED: GLUCAGON 1 MG/ML VIAL OTHER PRN (09:15)
--- NOTE | 2016-08-16 09:20 | HHI.CCPN ---
Subjective Remarks/Hospital Course 56-year-old morbidly obese female brought in the emergency department in respiratory distress. She was intubated by ER attending. She has been sick for about a week with symptoms consistent with UTI. She's had fevers and chills. She's been short of breath. She's had fatigue. She has had a cough and chest pain with coughing. The family reports that she's been delirious for the last 3 days. 08/15 Patient is sedated with Diprivan, Versed, Fentanyl and intubated. CTA chest showed no PE multifocal consolidation greatest in RLL. Tmax 100.6 08/16 Patient is sedated with Diprivan and Fentanyl. Afebrile. CXR this morning showed increase consolidation. Objective Vital Signs Date Time Temp Pulse Resp B/P Pulse Ox O2 Delivery O2 Flow Rate FiO2 08/16/16 08:48 92 70 08/16/16 06:00 63 08/16/16 04:00 98.8 18 97/60 08/15/16 01:05 Ventilator 08/14/16 20:20 15 Intake and Output 08/15/16 08/15/16 08/16/16 08:00 16:00 00:00 Intake Total 607 ml 1391 ml 1148 ml Output Total 1465 ml 475 ml 365 ml Balance -858 ml 916 ml 783 ml Result Diagram: 08/16/16 0449 08/16/16 0449 Other Results Laboratory Tests Test 08/15/16 08/15/16 08/15/16 08/16/16 11:17 14:05 17:17 04:49 Phosphorus Level 2.1 MG/DL 2.4 MG/DL 2.3 MG/DL Troponin I 0.05 NG/ML 0.03 NG/ML Thyroid Stimulating Hormone 1.370 uIU/ML 3rd Gen Blood Gas Puncture Site RT RADIAL Blood Gas Patient Temperature 98.6 Blood Gas HCO3 39 mmol/L Blood Gas Base Excess 13.6 mmol/L Blood Gas Oxygen Saturation 89 % Arterial Blood pH 7.45 Arterial Blood Partial 57 mmHg Pressure CO2 Arterial Blood Partial 66 mmHg Pressure O2 Arterial Blood Oxygen Content 16.3 Vol % Arterial Blood 1.3 % Carboxyhemoglobin Arterial Blood Methemoglobin 1.2 % Blood Gas Hemoglobin 12.9 G/DL Oxygen Delivery Device VENTILATOR Blood Gas Ventilator Setting SEE COMMENTS Blood Gas Inspired Oxygen 65 % Sodium Level 139 MEQ/L 142 MEQ/L Potassium Level 3.8 MEQ/L 3.3 MEQ/L Chloride Level 97 MEQ/L 99 MEQ/L Carbon Dioxide Level 34.7 MEQ/L 36.6 MEQ/L Anion Gap 7 MEQ/L 6 MEQ/L Blood Urea Nitrogen 16 MG/DL 18 MG/DL Creatinine 0.60 MG/DL 0.48 MG/DL Estimat Glomerular Filtration 104 ML/MIN 134 ML/MIN Rate Random Glucose 152 MG/DL 194 MG/DL Calcium Level 8.1 MG/DL 7.7 MG/DL Magnesium Level 2.4 MG/DL 2.7 MG/DL Total Bilirubin 0.3 MG/DL 0.3 MG/DL Aspartate Amino Transf 63 U/L 51 U/L (AST/SGOT) Alanine Aminotransferase 54 U/L 51 U/L (ALT/SGPT) Alkaline Phosphatase 113 U/L 106 U/L Total Protein 6.5 GM/DL 6.3 GM/DL Albumin 2.0 GM/DL 1.8 GM/DL White Blood Count 6.8 TH/MM3 Red Blood Count 3.93 MIL/MM3 Hemoglobin 11.5 GM/DL Hematocrit 35.5 % Mean Corpuscular Volume 90.2 FL Mean Corpuscular Hemoglobin 29.2 PG Mean Corpuscular Hemoglobin 32.4 % Concent Red Cell Distribution Width 16.4 % Platelet Count 339 TH/MM3 Mean Platelet Volume 8.4 FL Neutrophils (%) (Auto) 89.7 % Lymphocytes (%) (Auto) 5.9 % Monocytes (%) (Auto) 4.0 % Eosinophils (%) (Auto) 0.0 % Basophils (%) (Auto) 0.4 % Neutrophils # (Auto) 6.1 TH/MM3 Lymphocytes # (Auto) 0.4 TH/MM3 Monocytes # (Auto) 0.3 TH/MM3 Eosinophils # (Auto) 0.0 TH/MM3 Basophils # (Auto) 0.0 TH/MM3 CBC Comment AUTO DIFF Differential Total Cells 100 Counted Neutrophils % (Manual) 71 % Band Neutrophils % 22 % Lymphocytes % 3 % Monocytes % 3 % Neutrophils # (Manual) 6.4 TH/MM3 Metamyelocytes 1 % Nucleated Red Blood Cells 2 /100 WBC Differential Comment FINAL DIFF MANUAL Platelet Estimate NORMAL Platelet Morphology Comment NORMAL Red Cell Morphology Comment NORMAL Imaging Last Impressions Chest X-Ray 08/16/16 0600 Signed Impressions: Service Date/Time: Tuesday, August 16, 2016 02:14 - CONCLUSION: Increasing consolidation. Terry Estrada MD Liver Ultrasound 08/15/16 0000 Signed Impressions: Service Date/Time: Monday, August 15, 2016 15:45 - CONCLUSION: Fatty liver and cholelithiasis. Common bile duct is dilated and common bile duct stone is not excluded. Danyel Escalante MD CT Angiography 08/15/16 0000 Signed Impressions: Service Date/Time: Monday, August 15, 2016 02:33 - CONCLUSION: 1. No evidence for pulmonary embolism. 2. Multifocal consolidation greatest in the right lower lobe and associated adenopathy. Terry Estrada MD Objective Remarks GENERAL: Patient is intubated and sedated SKIN: Warm and dry. HEAD: Normocephalic. EYES: No scleral icterus. No injection or drainage. NECK: Supple, trachea midline. No JVD or lymphadenopathy. CARDIOVASCULAR: Regular rate and rhythm without murmurs, gallops, or rubs. RESPIRATORY: Breath sounds equal bilaterally. No accessory muscle use. GASTROINTESTINAL: Abdomen soft, non-tender, nondistended. MUSCULOSKELETAL: No cyanosis, or edema. Neuro: Sedated A/P Problem List: (1) CHF (congestive heart failure) ICD Code: I50.9 Status: Acute (2) Respiratory failure ICD Code: J96.90 Status: Acute (3) Pneumonia ICD Code: J18.9 Status: Acute Assessment and Plan 1)Acute hypercapnic and hypoxemic resp failure 2)Pneumonia community-acquired 3)Elevated LFT 4)Hypokalemia 5)Hypothyroidism 6)Dyslipidemia 7)Mild elevated trop likely 2nd resp failure 8)Morbid obesity Plan Neuro: On Diprivan, Versed, Fentanyl for sedation. Daily sedation vacation. Pulm: On PRVC/AC RR 18, TV 500, PEEP 5, IT: 1.0 and FIO2 70%. Decrease FIO2 as tiki. Continue with vent support keep sat >92% check ABG Bronchodilators, place on solumederol 60mg Q8 ICU vent bundle. Pulm is following- Dr. Beck CV: Monitor HR and BP keep MAP>65mmg Echo showed EG 65-70% : Monitor renal function, I/O's. electrolytes replacement per protocol. d/c IVF and diurese with Bumex 1mg x1 GI: Monitor LFT's..trending down, on Protonix 40mg daily for GI prophylaxis US liver: Fatty liver and cholelithiasis. TF Glucerna 1.5 with goal rate 45ml/hr ID: Continue with abx ( Zithromax, Zosyn) Give Vanco 1gram [id number] for signs of infections. Follow up on blood and sputum cx, strep pneumonia and Legionella urinary Ag negative Heme: Monitor CBC Endo: Place on SSI ( medium scale) for glycemic control On Synthroid 200mcg daily. TSH 1.37 GI prophylaxis- Protonix 40mg daily DVT prophylaxis- On Heparin SQ CCT 30 mins Problem Qualifiers (1) CHF (congestive heart failure): Qualified Code: I50.9 - Acute congestive heart failure, unspecified congestive heart failure type (2) Respiratory failure: Qualified Code: J96.02 - Acute respiratory failure with hypercapnia (3) Pneumonia: Qualified Code: J18.9 - Pneumonia of both lungs due to infectious organism, unspecified part of lung Ute Santamaria MD Aug 16, 2016 09:20
[2016-08-16] MEDS: ARTIFICIAL TEARS OPTH SOLN 15 ML BTL EACH EYE SCH ×3 (09:54→17:44)
[2016-08-16] MEDS ORDERED: VANCOMYCIN INJ 1,000 MG in SODIUM CHLOR 0.9% 250 ML INJ 250 ML IV ONE (10:00)
[2016-08-16] MEDS ORDERED: BUMETANIDE INJ 1 MG/4 ML VIAL IV PUSH ONE (10:00)
[2016-08-16 10:27] LABS: BLOOD GAS BASE EXCESS 11.2 mmol/L (-2-2); BLOOD GAS CARBOXYHEMOGLOBIN 1.1 % (0-4); BLOOD GAS HCO3 37 mmol/L (22-26); BLOOD GAS METHEMOGLOBIN 1.2 % (0-2); BLOOD GAS O2 HGB SATURATION 91 % (90-100); BLOOD GAS OXYGEN CONTENT 15.7 Vol % (12.0-20.0); BLOOD GAS PCO2 63 mmHg (38-42); BLOOD GAS PO2 70 mmHg (61-120); BLOOD GAS TOTAL HGB 12.3 G/DL (12.0-16.0); TEMP CORR TO 98.6
[2016-08-16 10:28] LABS: CRITICAL VALUE YES; OXYGEN DEVICE VENTILATOR
[2016-08-16 10:29] LABS: DRAW SITE LT RADIAL; FIO2 70 %; NUMBER OF ARTERIAL PUNCTURES 1; STAT NO; ULNAR PULSE PRESENT
[2016-08-16] MEDS: DOCUSATE SODIUM 100 MG/10 ML UDC G-TUBE SCH ×2 (11:52→22:22)
[2016-08-16] MEDS: INSULIN NovoLIN REGULAR SUPPLEMENTAL SCALE SQ SCH ×3 (11:57→22:21)
--- NOTE | 2016-08-16 19:29 | HHI.PR ---
Subjective Remarks Sedated on the vent . FIO2 at 70 %. CXR is worse. Objective Vital Signs Date Time Temp Pulse Resp B/P Pulse Ox O2 Delivery O2 Flow Rate FiO2 08/16/16 18:00 56 08/16/16 17:02 92 65 08/16/16 16:00 65 08/16/16 16:00 57 08/16/16 16:00 99.2 57 18 125/74 93 08/16/16 14:00 55 08/16/16 13:09 95 65 08/16/16 12:00 57 08/16/16 12:00 65 08/16/16 12:00 99.0 57 18 125/66 93 08/16/16 10:00 78 08/16/16 08:48 92 70 08/16/16 08:00 65 08/16/16 08:00 98.4 94 24 129/70 94 08/16/16 08:00 94 08/16/16 06:00 63 08/16/16 04:09 93 70 08/16/16 04:00 63 08/16/16 04:00 70 08/16/16 04:00 98.8 55 18 97/60 94 08/16/16 02:00 56 08/16/16 00:06 93 70 08/16/16 00:00 60 08/16/16 00:00 70 08/16/16 00:00 98.7 60 18 102/62 91 08/15/16 22:00 65 08/15/16 21:50 92 60 08/15/16 20:00 98.8 76 18 112/62 94 08/15/16 20:00 60 08/15/16 20:00 76 I/O 08/15/16 08/15/16 08/15/16 08/16/16 08/16/16 08/16/16 07:00 15:00 23:00 07:00 15:00 23:00 Intake Total 607 ml 1391 ml 1148 ml 1292 ml 1571 ml Output Total 1465 ml 475 ml 365 ml 250 ml 650 ml Balance -858 ml 916 ml 783 ml 1042 ml 921 ml Intake IV Total 577 ml 1291 ml 982 ml 1085 ml 1288 ml Tube Feeding 136 ml 177 ml 223 ml Tube Irrigant 100 ml 30 ml 30 ml 60 ml Other 30 ml Output Urine Total 1445 ml 475 ml 365 ml 250 ml 650 ml Gastric Drainage Total 20 ml Result Diagram: 08/16/1644808/16/169 Objective Remarks This is an obese middle-aged white female who is sedated. She does open her eyes. She is intubated orally assisting the ventilator. HEENT: Head normocephalic. Pupils reactive and equal. Sclerae are injected. Throat has secretions. Nasal mucosa injected. Neck: Supple. No bruits, no thyroid enlargement, no lymphadenopathy. Chest: Distant breath sounds. Expiratory wheezes in the upper lung palafox. No crackles on both sides. Heart: Heart sounds were regular. S1-S2 no murmur, no S3. Abdomen: Soft, benign. No masses, no organomegaly or tenderness. Bowel sounds are active. Extremities: Mild edema with no calf tenderness. Reflexes are not elicited. She is sedated. Assessment and Plan Assessment and Plan IMPRESSION 1. Acute hypercapnic respiratory failure. 2. Pulmonary edema. 3. Basilar pneumonia 4. Obstructive sleep apnea syndrome 5. Hypertension 6. Hypothyroidism. 7. Obesity. Plan : 1. Cont Antibiotics. 2. Wean FIo2 to keep sat >92. 3. Nebs qid , duoneb. 4. Continue Versed /Fentanyl. 5. Chest X ray ,BMP in am. 6. Trach suction and b lavage. 7. Tube feeds at 30 CC Abimael Beck MD Aug 16, 2016 19:29
[2016-08-16 19:38] LABS: POTASSIUM 3.9 MEQ/L (3.5-5.1)
[2016-08-16] MEDS: PRAVASTATIN SOD 20 MG TAB PO SCH (20:58)
[2016-08-16] MEDS: AZITHROMYCIN INJ 500 MG in SODIUM CHLOR 0.9% 250 ML INJ 250 ML IV SCH (23:02)
[2016-08-17] VITALS (19 sets, daily range): BP systolic 104–124; BP diastolic 64–69; PULSE 51–78; RESP 18–19; TEMP 98.2–100.4; O2SAT 89–95
[2016-08-17] MEDS: RESP: ALBUTEROL 2.5 MG/IPRATROPIUM 0.5 MG NEB (SCH) INH ×4 (03:39→21:36)
[2016-08-17] MEDS: CHLORHEXIDINE GLUCONATE 2 % 1 PACK (2 CLOTHS) TOP SCH (03:45)
[2016-08-17] MEDS: INSULIN NovoLIN REGULAR SUPPLEMENTAL SCALE SQ SCH ×3 (03:45→16:00)
[2016-08-17] MEDS: PROPOFOL 1000 MG/100 ML INJ 100 ML IV SCH ×7 (03:46→23:51)
[2016-08-17] MEDS: LEVOTHYROXINE SODIUM 200 MCG TAB PO SCH (05:22)
[2016-08-17] MEDS: methylPREDNISolone SOD SUCC 125 MG/2 ML VIAL IV SCH ×2 (05:23→13:35)
[2016-08-17] MEDS: PIPERACIL-TAZO 4.5 GM PREMIX 100 ML IV SCH ×3 (05:24→17:39)
[2016-08-17 05:59] LABS: AUTOMATED NEUTROPHIL # 5.8 TH/MM3 (1.8-7.7); BASOPHIL % 0.6 % (0.0-2.0); HEMATOCRIT 34.2 % (35.0-46.0); LYMPH % 7.4 % (9.0-44.0); LYMPHOCYTE # 0.5 TH/MM3 (1.0-4.8); MEAN CELL VOLUME 94.8 FL (80.0-100.0); MEAN CORPUSCULAR HEMOGLOBIN 32.5 PG (27.0-34.0); MEAN CORPUSCULAR HGB CONC 34.3 % (32.0-36.0); MONO % 7.7 % (0.0-8.0); NEUT % 84.3 % (16.0-70.0); PLATELET COUNT 335 TH/MM3 (150-450); RED BLOOD COUNT 3.61 MIL/MM3 (4.00-5.30); WHITE BLOOD COUNT 6.9 TH/MM3 (4.0-11.0)
[2016-08-17 06:05] LABS: ALT (GPT) 51 U/L (10-53); ANION GAP 6 MEQ/L (5-15); AST (GOT) 44 U/L (15-37); BICARBONATE 36.8 MEQ/L (21.0-32.0); BLOOD UREA NITROGEN 22 MG/DL (7-18); CHLORIDE 100 MEQ/L (98-107); GLOMERULAR FILTRATION RATE 93 ML/MIN (>89); MAGNESIUM 3.2 MG/DL (1.5-2.5); POTASSIUM 3.8 MEQ/L (3.5-5.1); SODIUM (NA) 143 MEQ/L (136-145)
[2016-08-17 06:07] LABS: ALKALINE PHOSPHATASE 115 U/L (45-117); TOTAL BILIRUBIN ADULT 0.3 MG/DL (0.2-1.0)
[2016-08-17 06:16] LABS: HEMO FLAGS AUTO DIFF
[2016-08-17 07:07] LABS: BANDS 7 % (0-6); CORRECTED NUCLEATED RBC 1 /100 WBC (0-0); POLYS (SEG NEUTROPHILS) 80 % (16-70); WBC DIFF SAMPLE 100
[2016-08-17 07:08] LABS: PLATELET ESTIMATE SMEAR NORMAL (NORMAL); PLATELET MORPHOLOGY NORMAL (NORMAL); POLYCHROMASIA 2.3 % (0.0-1.9); SCAN/DIFF FINAL DIFF MANUAL
--- NOTE | 2016-08-17 07:55 | HHI.CCPN ---
Subjective Remarks/Hospital Course 56-year-old morbidly obese female brought in the emergency department in respiratory distress. She was intubated by ER attending. She has been sick for about a week with symptoms consistent with UTI. She's had fevers and chills. She's been short of breath. She's had fatigue. She has had a cough and chest pain with coughing. The family reports that she's been delirious for the last 3 days. 08/15 Patient is sedated with Diprivan, Versed, Fentanyl and intubated. CTA chest showed no PE multifocal consolidation greatest in RLL. Tmax 100.6 08/16 Patient is sedated with Diprivan and Fentanyl. Afebrile. CXR this morning showed increase consolidation. 08/17 Patient remains sedated and intubated. T:100.4 On PRVC/AC RR 18, Tv 500, IT :1.0 PEEP:10, FIO2 75% Objective Vital Signs Date Time Temp Pulse Resp B/P Pulse Ox O2 Delivery O2 Flow Rate FiO2 08/17/16 06:00 60 08/17/16 04:00 75 08/17/16 04:00 100.4 19 115/68 93 08/15/16 01:05 Ventilator 08/14/16 20:20 15 Intake and Output 08/16/16 08/16/16 08/17/16 08:00 16:00 00:00 Intake Total 1292 ml 1571 ml 823 ml Output Total 250 ml 650 ml 250 ml Balance 1042 ml 921 ml 573 ml Result Diagram: 08/17/16 0516 08/17/16 0516 Other Results Laboratory Tests Test 08/16/16 08/16/16 08/17/16 10:18 18:40 05:16 Blood Gas Puncture Site LT RADIAL Blood Gas Patient Temperature 98.6 Blood Gas HCO3 37 mmol/L Blood Gas Base Excess 11.2 mmol/L Blood Gas Oxygen Saturation 91 % Arterial Blood pH 7.38 Arterial Blood Partial 63 mmHg Pressure CO2 Arterial Blood Partial 70 mmHg Pressure O2 Arterial Blood Oxygen Content 15.7 Vol % Arterial Blood 1.1 % Carboxyhemoglobin Arterial Blood Methemoglobin 1.2 % Blood Gas Hemoglobin 12.3 G/DL Oxygen Delivery Device VENTILATOR Blood Gas Ventilator Setting Blood Gas Inspired Oxygen 70 % Potassium Level 3.9 MEQ/L 3.8 MEQ/L Phosphorus Level 2.8 MG/DL 2.5 MG/DL White Blood Count 6.9 TH/MM3 Red Blood Count 3.61 MIL/MM3 Hemoglobin 11.7 GM/DL Hematocrit 34.2 % Mean Corpuscular Volume 94.8 FL Mean Corpuscular Hemoglobin 32.5 PG Mean Corpuscular Hemoglobin 34.3 % Concent Red Cell Distribution Width 17.0 % Platelet Count 335 TH/MM3 Mean Platelet Volume 8.7 FL Neutrophils (%) (Auto) 84.3 % Lymphocytes (%) (Auto) 7.4 % Monocytes (%) (Auto) 7.7 % Eosinophils (%) (Auto) 0.0 % Basophils (%) (Auto) 0.6 % Neutrophils # (Auto) 5.8 TH/MM3 Lymphocytes # (Auto) 0.5 TH/MM3 Monocytes # (Auto) 0.5 TH/MM3 Eosinophils # (Auto) 0.0 TH/MM3 Basophils # (Auto) 0.0 TH/MM3 CBC Comment AUTO DIFF Differential Total Cells 100 Counted Neutrophils % (Manual) 80 % Band Neutrophils % 7 % Lymphocytes % 7 % Monocytes % 6 % Neutrophils # (Manual) 6.0 TH/MM3 Nucleated Red Blood Cells 1 /100 WBC Differential Comment FINAL DIFF MANUAL Platelet Estimate NORMAL Platelet Morphology Comment NORMAL Polychromasia 2.3 % Sodium Level 143 MEQ/L Chloride Level 100 MEQ/L Carbon Dioxide Level 36.8 MEQ/L Anion Gap 6 MEQ/L Blood Urea Nitrogen 22 MG/DL Creatinine 0.66 MG/DL Estimat Glomerular Filtration 93 ML/MIN Rate Random Glucose 165 MG/DL Calcium Level 8.3 MG/DL Magnesium Level 3.2 MG/DL Total Bilirubin 0.3 MG/DL Aspartate Amino Transf 44 U/L (AST/SGOT) Alanine Aminotransferase 51 U/L (ALT/SGPT) Alkaline Phosphatase 115 U/L Total Protein 6.5 GM/DL Albumin 2.0 GM/DL Imaging Last Impressions Chest X-Ray 08/16/16 0600 Signed Impressions: Service Date/Time: Tuesday, August 16, 2016 02:14 - CONCLUSION: Increasing consolidation. Terry Estrada MD Liver Ultrasound 08/15/16 0000 Signed Impressions: Service Date/Time: Monday, August 15, 2016 15:45 - CONCLUSION: Fatty liver and cholelithiasis. Common bile duct is dilated and common bile duct stone is not excluded. Danyel Escalante MD CT Angiography 08/15/16 0000 Signed Impressions: Service Date/Time: Monday, August 15, 2016 02:33 - CONCLUSION: 1. No evidence for pulmonary embolism. 2. Multifocal consolidation greatest in the right lower lobe and associated adenopathy. Terry Estrada MD Objective Remarks GENERAL: Patient is intubated and sedated SKIN: Warm and dry. HEAD: Normocephalic. EYES: No scleral icterus. No injection or drainage. NECK: Supple, trachea midline. No JVD or lymphadenopathy. CARDIOVASCULAR: Regular rate and rhythm without murmurs, gallops, or rubs. RESPIRATORY: Breath sounds equal bilaterally. No accessory muscle use. GASTROINTESTINAL: Abdomen soft, non-tender, nondistended. MUSCULOSKELETAL: No cyanosis, or edema. Neuro: Sedated A/P Problem List: (1) CHF (congestive heart failure) ICD Code: I50.9 Status: Acute (2) Respiratory failure ICD Code: J96.90 Status: Acute (3) Pneumonia ICD Code: J18.9 Status: Acute Assessment and Plan 1)Acute hypercapnic and hypoxemic resp failure 2)Pneumonia community-acquired 3)Elevated LFT 4)Hypokalemia 5)Hypothyroidism 6)Dyslipidemia 7)Mild elevated trop likely 2nd resp failure 8)Morbid obesity Plan Neuro: On Diprivan, Fentanyl for sedation. Daily sedation vacation. Pulm: On PRVC/AC RR 18, TV 500, PEEP 10, IT: 1.0 and FIO2 75%. Decrease FIO2 as tiki. Continue with vent support keep sat >92% Bronchodilators, solumederol 60mg Q8 ICU vent bundle. Pulm is following- Dr. Beck CV: Monitor HR and BP keep MAP>65mmg Echo showed EG 65-70% : Monitor renal function, I/O's. electrolytes replacement per protocol. Place on Bumex 1mg daily GI: Monitor LFT's..trending down, on Protonix 40mg daily for GI prophylaxis US liver: Fatty liver and cholelithiasis. TF Glucerna 1.5 with goal rate 45ml/hr ID: Continue with abx ( Zithromax, Zosyn) Vanco 1gram x1 given yesterday monitor for signs of infections. Follow up on blood and sputum cx- NGTD strep pneumonia and Legionella urinary Ag negative Heme: Monitor CBC Endo: on SSI ( medium scale) for glycemic control On Synthroid 200mcg daily. TSH 1.37 GI prophylaxis- Protonix 40mg daily DVT prophylaxis- On Heparin SQ CCT 30 mins Problem Qualifiers (1) CHF (congestive heart failure): Qualified Code: I50.9 - Acute congestive heart failure, unspecified congestive heart failure type (2) Respiratory failure: Qualified Code: J96.02 - Acute respiratory failure with hypercapnia (3) Pneumonia: Qualified Code: J18.9 - Pneumonia of both lungs due to infectious organism, unspecified part of lung Ute Santamaria MD Aug 17, 2016 07:55
[2016-08-17] MEDS: PANTOPRAZOLE SODIUM 40 MG VIAL IV PUSH SCH (08:27)
[2016-08-17] MEDS: HEPARIN SODIUM - SQ 10,000 UNITS/ML VIAL SQ SCH ×2 (08:28→15:59)
[2016-08-17] MEDS: SODIUM CHLORIDE 0.9% FLUSH 5 ML FLUSH IVF PRN (08:30)
[2016-08-17] MEDS: BENEPROTEIN POWDER 1 PACK G-TUBE SCH ×3 (08:31→17:39)
[2016-08-17] MEDS: SODIUM CHLORIDE 0.9% FLUSH 10 ML FLUSH IV FLUSH SCH ×2 (08:34→20:22)
[2016-08-17] MEDS: ARTIFICIAL TEARS OPTH SOLN 15 ML BTL EACH EYE SCH ×3 (08:34→17:39)
[2016-08-17] MEDS ORDERED: BUMETANIDE INJ 1 MG/4 ML VIAL IV PUSH SCH (09:00)
[2016-08-17] MEDS: DOCUSATE SODIUM 100 MG/10 ML UDC G-TUBE SCH ×2 (10:29→23:15)
[2016-08-17] MEDS: fentaNYL DRIP 250 ML IV SCH (16:01)
--- NOTE | 2016-08-17 17:33 | HHI.PR ---
Subjective Remarks Sedated on the vent . FIO2 at 70 %. CXR is worse. She is restless when awake. Objective Vital Signs Date Time Temp Pulse Resp B/P Pulse Ox O2 Delivery O2 Flow Rate FiO2 08/17/16 16:00 56 08/17/16 16:00 70 08/17/16 16:00 100.1 56 18 109/69 89 08/17/16 15:16 91 70 08/17/16 14:00 52 08/17/16 12:00 51 08/17/16 12:00 70 08/17/16 12:00 99.6 51 18 104/64 93 08/17/16 11:03 92 70 08/17/16 10:00 58 08/17/16 08:00 78 08/17/16 08:00 98.2 78 18 124/64 95 08/17/16 08:00 65 08/17/16 07:44 94 65 08/17/16 06:00 60 08/17/16 04:00 68 08/17/16 04:00 75 08/17/16 04:00 100.4 68 19 115/68 93 08/17/16 03:39 94 75 08/17/16 02:00 54 08/17/16 01:01 94 75 08/17/16 00:00 56 08/17/16 00:00 65 08/17/16 00:00 99.3 56 18 109/67 94 08/16/16 22:00 55 08/16/16 21:47 89 75 08/16/16 20:00 55 08/16/16 20:00 65 08/16/16 20:00 99.4 55 18 107/67 98 08/16/16 19:55 94 70 08/16/16 18:00 56 I/O 08/16/16 08/16/16 08/16/16 08/17/16 08/17/16 08/17/16 07:00 15:00 23:00 07:00 15:00 23:00 Intake Total 1292 ml 1571 ml 823 ml 1000 ml 1180 ml Output Total 250 ml 650 ml 250 ml 250 ml 1000 ml Balance 1042 ml 921 ml 573 ml 750 ml 180 ml Intake IV Total 1085 ml 1288 ml 383 ml 838 ml 747 ml Tube Feeding 177 ml 223 ml 380 ml 102 ml 433 ml Tube Irrigant 30 ml 60 ml 60 ml 60 ml Output Urine Total 250 ml 650 ml 250 ml 250 ml 1000 ml # Bowel Movements 0 0 Result Diagram: 08/17/16 0516 08/17/16 0516 Objective Remarks This is an obese middle-aged white female who is sedated. She does open her eyes. She is intubated orally assisting the ventilator. HEENT: Head normocephalic. Pupils reactive and equal. Sclerae are injected. Throat has secretions. Nasal mucosa clear Neck: Supple. No bruits, no thyroid enlargement, no lymphadenopathy. Chest: Distant breath sounds. Expiratory wheezes in the upper lung palafox. No crackles on both sides. Heart: Heart sounds were regular. S1-S2 no murmur, no S3. Abdomen: Soft, benign. No masses, no organomegaly or tenderness. Bowel sounds are active. Extremities: Mild edema with no calf tenderness. Reflexes are not elicited. She is sedated. Assessment and Plan Assessment and Plan IMPRESSION 1. Acute hypercapnic respiratory failure. 2. Pulmonary edema. 3. Basilar pneumonia 4. Obstructive sleep apnea syndrome 5. Hypertension 6. Hypothyroidism. 7. Obesity. Plan : 1. Cont Antibiotics. 2. Wean FIo2 to keep sat >92. 3. Nebs qid , duoneb. 4. Continue Diprivan /Fentanyl. 5. Chest X ray ,BMP, CBC in am. 6. Trach suction and lavage. 7. Tube feeds at 50 CC 8. Reduce sedation in am Abimael Beck MD Aug 17, 2016 17:33
[2016-08-17] MEDS: PRAVASTATIN SOD 20 MG TAB PO SCH (20:20)
[2016-08-18] VITALS (20 sets, daily range): BP systolic 106–138; BP diastolic 61–91; PULSE 51–91; RESP 18–38; TEMP 98.2–100.2; O2SAT 91–96
[2016-08-18] MEDS: methylPREDNISolone SOD SUCC 125 MG/2 ML VIAL IV SCH ×4 (00:32→20:16)
[2016-08-18] MEDS: INSULIN NovoLIN REGULAR SUPPLEMENTAL SCALE SQ SCH ×5 (00:33→21:44)
[2016-08-18] MEDS: PIPERACIL-TAZO 4.5 GM PREMIX 100 ML IV SCH ×4 (00:34→17:30)
[2016-08-18] MEDS: AZITHROMYCIN INJ 500 MG in SODIUM CHLOR 0.9% 250 ML INJ 250 ML IV SCH (00:34)
[2016-08-18] MEDS: HEPARIN SODIUM - SQ 10,000 UNITS/ML VIAL SQ SCH ×3 (00:35→17:29)
[2016-08-18] MEDS: fentaNYL DRIP 250 ML IV SCH ×3 (00:37→22:53)
[2016-08-18] MEDS: PROPOFOL 1000 MG/100 ML INJ 100 ML IV SCH ×3 (01:55→08:24)
[2016-08-18] MEDS: CHLORHEXIDINE GLUCONATE 2 % 1 PACK (2 CLOTHS) TOP SCH (03:25)
[2016-08-18] MEDS: RESP: ALBUTEROL 2.5 MG/IPRATROPIUM 0.5 MG NEB (SCH) INH ×4 (04:56→21:08)
[2016-08-18] MEDS: LEVOTHYROXINE SODIUM 200 MCG TAB PO SCH (04:59)
--- NOTE | 2016-08-18 05:38 | RADRPT ---
EXAM DATE/TIME: 08/18/2016 03:08 [facility] COMPARISON: CHEST SINGLE AP, August 16, 2016, 2:14. INDICATIONS : Evaluate for pneumonia. MEDICAL HISTORY : Hypertension. SURGICAL HISTORY : None. ENCOUNTER: Subsequent ACUITY: 4 - 6 days PAIN SCORE: Non-responsive. LOCATION: chest FINDINGS: A single portable frontal view the chest shows an endotracheal tube with the tip approximately 3 cm p roximal to the armaan. Nasogastric tube tip courses off the inferior margin of the film. Bilateral pl eural effusions and bibasilar intra-alveolar infiltrates are unchanged. Heart is at the upper limits of normal in terms of size. CONCLUSION: Unchanged bilateral pleural effusions and bibasilar infiltrates. Taco Haas Jr., MD on August 18, 2016 at 5:35 Board Certified Radiologist. This report was verified electronically.
[2016-08-18 05:56] LABS: BASOPHIL # 0.1 TH/MM3 (0-0.2); BASOPHIL % 0.5 % (0.0-2.0); HEMATOCRIT 35.8 % (35.0-46.0); HEMO FLAGS DIFF FINAL; LYMPH % 5.7 % (9.0-44.0); LYMPHOCYTE # 0.7 TH/MM3 (1.0-4.8); MEAN CELL VOLUME 90.6 FL (80.0-100.0); MEAN CORPUSCULAR HEMOGLOBIN 29.9 PG (27.0-34.0); MONO % 6.1 % (0.0-8.0); NEUT % 87.7 % (16.0-70.0); PLATELET COUNT 335 TH/MM3 (150-450); RED BLOOD COUNT 3.95 MIL/MM3 (4.00-5.30); RED CELL DISTRIBUTION WIDTH 16.9 % (11.6-17.2); WHITE BLOOD COUNT 11.5 TH/MM3 (4.0-11.0)
[2016-08-18 06:25] LABS: BICARBONATE 35.5 MEQ/L (21.0-32.0); POTASSIUM 4.4 MEQ/L (3.5-5.1)
[2016-08-18] MEDS ORDERED: BUMETANIDE INJ 1 MG/4 ML VIAL IV PUSH ONE (08:15)
--- NOTE | 2016-08-18 08:23 | HHI.CCPN ---
Subjective Remarks/Hospital Course 56-year-old morbidly obese female brought in the emergency department in respiratory distress. She was intubated by ER attending. She has been sick for about a week with symptoms consistent with UTI. She's had fevers and chills. She's been short of breath. She's had fatigue. She has had a cough and chest pain with coughing. The family reports that she's been delirious for the last 3 days. 08/15 Patient is sedated with Diprivan, Versed, Fentanyl and intubated. CTA chest showed no PE multifocal consolidation greatest in RLL. Tmax 100.6 08/16 Patient is sedated with Diprivan and Fentanyl. Afebrile. CXR this morning showed increase consolidation. 08/17 Patient remains sedated and intubated. T:100.4 On PRVC/AC RR 18, Tv 500, IT :1.0 PEEP:10, FIO2 75% 08/18 Remains sedated and intubated. Afebrile. CXR this morning unchanged bibasilar infiltrates and effusions. Objective Vital Signs Date Time Temp Pulse Resp B/P Pulse Ox O2 Delivery O2 Flow Rate FiO2 08/18/16 07:28 91 75 08/18/16 06:00 60 08/18/16 04:00 98.2 18 113/74 08/15/16 01:05 Ventilator 08/14/16 20:20 15 Intake and Output 08/17/16 08/17/16 08/18/16 08:00 16:00 00:00 Intake Total 1000 ml 1180 ml 829 ml Output Total 250 ml 1000 ml 250 ml Balance 750 ml 180 ml 579 ml Result Diagram: 08/18/16 0530 08/18/16 0530 Other Results Laboratory Tests Test 08/18/16 05:30 White Blood Count 11.5 TH/MM3 Red Blood Count 3.95 MIL/MM3 Hemoglobin 11.8 GM/DL Hematocrit 35.8 % Mean Corpuscular Volume 90.6 FL Mean Corpuscular Hemoglobin 29.9 PG Mean Corpuscular Hemoglobin 33.0 % Concent Red Cell Distribution Width 16.9 % Platelet Count 335 TH/MM3 Mean Platelet Volume 8.7 FL Neutrophils (%) (Auto) 87.7 % Lymphocytes (%) (Auto) 5.7 % Monocytes (%) (Auto) 6.1 % Eosinophils (%) (Auto) 0.0 % Basophils (%) (Auto) 0.5 % Neutrophils # (Auto) 10.0 TH/MM3 Lymphocytes # (Auto) 0.7 TH/MM3 Monocytes # (Auto) 0.7 TH/MM3 Eosinophils # (Auto) 0.0 TH/MM3 Basophils # (Auto) 0.1 TH/MM3 CBC Comment DIFF FINAL Differential Comment Sodium Level 141 MEQ/L Potassium Level 4.4 MEQ/L Chloride Level 100 MEQ/L Carbon Dioxide Level 35.5 MEQ/L Anion Gap 6 MEQ/L Blood Urea Nitrogen 25 MG/DL Creatinine 0.55 MG/DL Estimat Glomerular Filtration 115 ML/MIN Rate Random Glucose 174 MG/DL Calcium Level 8.2 MG/DL Imaging Last Impressions Chest X-Ray 08/18/16 0600 Signed Impressions: Service Date/Time: Thursday, August 18, 2016 03:08 - CONCLUSION: Unchanged bilateral pleural effusions and bibasilar infiltrates. Taco Haas Jr., MD Liver Ultrasound 08/15/16 0000 Signed Impressions: Service Date/Time: Monday, August 15, 2016 15:45 - CONCLUSION: Fatty liver and cholelithiasis. Common bile duct is dilated and common bile duct stone is not excluded. Danyel Escalante MD CT Angiography 08/15/16 0000 Signed Impressions: Service Date/Time: Monday, August 15, 2016 02:33 - CONCLUSION: 1. No evidence for pulmonary embolism. 2. Multifocal consolidation greatest in the right lower lobe and associated adenopathy. Terry Estrada MD Objective Remarks GENERAL: Patient is intubated and sedated SKIN: Warm and dry. HEAD: Normocephalic. EYES: No scleral icterus. No injection or drainage. NECK: Supple, trachea midline. No JVD or lymphadenopathy. CARDIOVASCULAR: Regular rate and rhythm without murmurs, gallops, or rubs. RESPIRATORY: Breath sounds equal bilaterally. No accessory muscle use. GASTROINTESTINAL: Abdomen soft, non-tender, nondistended. MUSCULOSKELETAL: No cyanosis, or edema. Neuro: Sedated A/P Problem List: (1) CHF (congestive heart failure) ICD Code: I50.9 Status: Acute (2) Respiratory failure ICD Code: J96.90 Status: Acute (3) Pneumonia ICD Code: J18.9 Status: Acute Assessment and Plan 1)Acute hypercapnic and hypoxemic resp failure 2)Pneumonia community-acquired 3)Elevated LFT 4)Hypokalemia 5)Hypothyroidism 6)Dyslipidemia 7)Mild elevated trop likely 2nd resp failure 8)Morbid obesity Plan Neuro: On Diprivan, Fentanyl for sedation. Daily sedation vacation. Pulm: On PRVC/AC RR 18, TV 500, PEEP 12, IT: 1.0 and FIO2 75%. Decrease FIO2 as tiki. Will decrease TV to 6ml/kg/IBW and proceed with pronation. Continue with vent support keep sat >92% Bronchodilators, solumederol 60mg Q8 ICU vent bundle. Pulm is following- Dr. Beck CV: Monitor HR and BP keep MAP>65mmg Echo showed EG 65-70% : Monitor renal function, I/O's. electrolytes replacement per protocol. Will given Bumex 2mg IV x1 then Bumex drip 0.5mg/hr ( fluid overload) GI: Monitor LFT's..trending down, on Protonix 40mg daily for GI prophylaxis US liver: Fatty liver and cholelithiasis. TF Glucerna 1.5 with goal rate 45ml/hr ID: Continue with abx ( Zithromax, Zosyn) add Vanco, monitor for signs of infections. Follow up on blood and sputum cx- NGTD strep pneumonia and Legionella urinary Ag negative Heme: Monitor CBC Endo: on SSI ( medium scale) for glycemic control On Synthroid 200mcg daily. TSH 1.37 GI prophylaxis- Protonix 40mg daily DVT prophylaxis- On Heparin SQ CCT 30 mins Problem Qualifiers (1) CHF (congestive heart failure): Qualified Code: I50.9 - Acute congestive heart failure, unspecified congestive heart failure type (2) Respiratory failure: Qualified Code: J96.02 - Acute respiratory failure with hypercapnia (3) Pneumonia: Qualified Code: J18.9 - Pneumonia of both lungs due to infectious organism, unspecified part of lung Ute Santamaria MD Aug 18, 2016 08:23
[2016-08-18] MEDS: BENEPROTEIN POWDER 1 PACK G-TUBE SCH ×3 (09:00→17:29)
[2016-08-18] MEDS: SODIUM CHLORIDE 0.9% FLUSH 10 ML FLUSH IV FLUSH SCH ×2 (09:00→20:15)
[2016-08-18] MEDS: ARTIFICIAL TEARS OPTH SOLN 15 ML BTL EACH EYE SCH ×3 (09:00→17:29)
[2016-08-18] MEDS: PANTOPRAZOLE SODIUM 40 MG VIAL IV PUSH SCH (09:46)
[2016-08-18] MEDS ORDERED: BUMETANIDE INJ 100 ML IV SCH (10:15)
[2016-08-18] MEDS: DOCUSATE SODIUM 100 MG/10 ML UDC G-TUBE SCH ×3 (10:55→22:51)
[2016-08-18] MEDS: MIDAZOLAM 100 MG/100 ML INJ 100 ML IV SCH ×2 (11:59→22:53)
[2016-08-18] MEDS ORDERED: Vancomycin Consult Pharmacy 1 EA OTHER SCH ×2 (17:00)
[2016-08-18] MEDS ORDERED: VANCOMYCIN INJ 1,000 MG in SODIUM CHLOR 0.9% 250 ML INJ 250 ML IV ONE (17:00)
--- NOTE | 2016-08-18 17:39 | HHI.PR ---
Subjective Remarks Sedated on the vent . FIO2 at 75 %. CXR is stable . She is restless when awake. Objective Vital Signs Date Time Temp Pulse Resp B/P Pulse Ox O2 Delivery O2 Flow Rate FiO2 08/18/16 16:00 100.2 91 38 129/91 92 08/18/16 16:00 75 08/18/16 16:00 91 08/18/16 15:02 94 75 08/18/16 14:00 69 08/18/16 12:00 55 08/18/16 12:00 75 08/18/16 12:00 98.9 55 18 111/61 91 08/18/16 11:43 91 75 08/18/16 10:00 58 08/18/16 08:00 75 08/18/16 08:00 99.9 61 18 122/69 93 08/18/16 08:00 61 08/18/16 07:28 91 75 08/18/16 06:00 60 08/18/16 05:15 94 75 08/18/16 04:55 96 75 08/18/16 04:00 98.2 51 18 113/74 93 08/18/16 04:00 51 08/18/16 04:00 70 08/18/16 02:00 57 08/18/16 01:14 93 75 08/18/16 00:00 70 08/18/16 00:00 86 08/18/16 00:00 99.1 86 20 138/82 91 08/17/16 22:00 59 08/17/16 21:35 94 70 08/17/16 20:00 99.4 54 18 114/66 92 08/17/16 20:00 54 08/17/16 20:00 70 08/17/16 19:24 92 70 08/17/16 18:00 55 I/O 08/17/16 08/17/16 08/17/16 08/18/16 08/18/16 08/18/16 07:00 15:00 23:00 07:00 15:00 23:00 Intake Total 1000 ml 1180 ml 829 ml 1423 ml 1647 ml Output Total 250 ml 1000 ml 250 ml 360 ml 3400 ml Balance 750 ml 180 ml 579 ml 1063 ml -1753 ml Intake IV Total 838 ml 747 ml 549 ml 803 ml 887 ml Tube Feeding 102 ml 433 ml 280 ml 560 ml 400 ml Tube Irrigant 60 ml 60 ml Other 360 ml Output Urine Total 250 ml 1000 ml 250 ml 300 ml 3400 ml Gastric Drainage Total 60 ml # Bowel Movements 0 Result Diagram: 08/18/1652908/18/16529 Objective Remarks This is an obese middle-aged white female who is sedated. She does open her eyes. She is intubated orally assisting the ventilator. HEENT: Head normocephalic. Pupils reactive and equal. Sclerae are clear Throat has secretions. Nasal mucosa clear Neck: Supple. No bruits, no thyroid enlargement, no lymphadenopathy. Chest: Distant breath sounds. Expiratory wheezes in the upper lung palafox. Heart: Heart sounds were regular. S1-S2 no murmur, no S3. Abdomen: Soft, benign. No masses, no organomegaly or tenderness. Bowel sounds are active. Extremities: Mild edema . Reflexes are not elicited. She is sedated. Assessment and Plan Assessment and Plan IMPRESSION 1. Acute hypercapnic respiratory failure. 2. Pulmonary edema. 3. Basilar pneumonia 4. Obstructive sleep apnea syndrome 5. Hypertension 6. Hypothyroidism. 7. Obesity. Plan : 1. Cont Antibiotics. 2. Wean FIo2 to keep sat >92. 3. Nebs qid , duoneb. 4. Continue Diprivan /Fentanyl. 5. Chest X ray ,BMP, CBC in am. 6. Trach suction and lavage. 7. Tube feeds at 50 CC 8. May need bronchoscopy Abimael Beck MD Aug 18, 2016 17:39
[2016-08-18] MEDS ORDERED: VANCOMYCIN INJ 2,000 MG in SODIUM CHLORID 0.9% 500 ML INJ 500 ML IV ONE (18:00)
[2016-08-18 19:43] LABS: BLOOD GAS BASE EXCESS 16.3 mmol/L (-2-2); BLOOD GAS CARBOXYHEMOGLOBIN 1.4 % (0-4); BLOOD GAS HCO3 41 mmol/L (22-26); BLOOD GAS METHEMOGLOBIN 1.1 % (0-2); BLOOD GAS O2 HGB SATURATION 90 % (90-100); BLOOD GAS OXYGEN CONTENT 15.6 Vol % (12.0-20.0); BLOOD GAS PCO2 60 mmHg (38-42); BLOOD GAS PO2 68 mmHg (61-120); BLOOD GAS TOTAL HGB 12.3 G/DL (12.0-16.0); TEMP CORR TO 98.6
[2016-08-18 19:44] LABS: CRITICAL VALUE YES; OXYGEN DEVICE VENTILATOR
[2016-08-18 19:45] LABS: DRAW SITE RT RADIAL; FIO2 75 %; NUMBER OF ARTERIAL PUNCTURES 1; STAT NO; ULNAR PULSE PRESENT; VENT SETTINGS PRVC/AC
[2016-08-18] MEDS: PRAVASTATIN SOD 20 MG TAB PO SCH (20:15)
[2016-08-18] MEDS: RESP: ACETYLCYSTEINE 10% 30 ML NEB NEB SCH (21:21)
--- NOTE | 2016-08-18 22:54 | RADRPT ---
EXAM DATE/TIME: 08/18/2016 22:09 [facility] COMPARISON: CHEST SINGLE AP, August 18, 2016, 3:08. INDICATIONS : Central line placement. MEDICAL HISTORY : None. SURGICAL HISTORY : None. ENCOUNTER: Initial ACUITY: 1 day PAIN SCORE: Non-responsive. LOCATION: Bilateral chest FINDINGS: Endotracheal tube and nasogastric tube are stable. A right neck central line descends into the SVC. T here is no evidence of pneumothorax. Hazy bilateral pleural-parenchymal opacity persists, slightly wo rse on the right than the left. Visualized cardiac contours are grossly stable. CONCLUSION: Central line placement without pneumothorax. Dejan Cervantes MD on August 18, 2016 at 22:51 Board Certified Radiologist. This report was verified electronically.
--- NOTE | 2016-08-18 23:58 | PD.PROCEDR ---
Procedure Note Procedure Right IJ CL A time-out was completed verifying correct patient, procedure, site, positioning , and special equipment if applicable. The patient was placed in a dependent position appropriate for central line placement based on the vein to be cannulated. The patients right neck was prepped and draped in sterile fashion. 1% Lidocaine was used to anesthetize the surrounding skin area. A triple lumen 9 -[place] Cordis catheter was introduced into the the internal jugular vein using the Seldinger technique and under ultrasound guidance. The catheter was threaded smoothly over the guide wire and appropriate blood return was obtained. Each lumen of the catheter was evacuated of air and flushed with sterile saline. The catheter was then sutured in place to the skin and a sterile dressing applied. Perfusion to the extremity distal to the point of catheter insertion was checked and found to be adequate. Estimated Blood Loss: 1ml The patient tolerated the procedure well and there were no complications. Arturo Ortiz MD Aug 18, 2016 23:58
--- NOTE | 2016-08-18 23:59 | PD.PROCEDR ---
Procedure Note Procedure Right A. Line A time-out was completed verifying correct patient, procedure, site, positioning , and special equipment if applicable. Allens test was performed to ensure adequate perfusion. The patients right wrist was prepped and draped in sterile fashion. 1% Lidocaine was used to anesthetize the area. A 18G Arrow arterial line was introduced into the radial artery. The catheter was threaded over the guide wire and the needle was removed with appropriate pulsatile blood return. The catheter was then sutured in place to the skin and a sterile dressing applied. Perfusion to the extremity distal to the point of catheter insertion was checked and found to be adequate. Estimated Blood Loss: 1ml The patient tolerated the procedure well and there were no complications Arturo Ortiz MD Aug 18, 2016 23:59
[2016-08-19] VITALS (19 sets, daily range): BP systolic 95–137; BP diastolic 56–81; PULSE 58–72; RESP 20; TEMP 98.4–98.9; O2SAT 91–98
[2016-08-19] MEDS: AZITHROMYCIN INJ 500 MG in SODIUM CHLOR 0.9% 250 ML INJ 250 ML IV SCH ×2 (00:07→23:17)
[2016-08-19] MEDS: PIPERACIL-TAZO 4.5 GM PREMIX 100 ML IV SCH ×5 (00:07→23:17)
[2016-08-19] MEDS: HEPARIN SODIUM - SQ 10,000 UNITS/ML VIAL SQ SCH ×4 (00:08→23:17)
[2016-08-19] MEDS: PROPOFOL 1000 MG/100 ML INJ 100 ML IV SCH ×4 (01:10→23:17)
[2016-08-19] MEDS: RESP: ACETYLCYSTEINE 10% 30 ML NEB NEB SCH ×4 (04:02→22:00)
[2016-08-19] MEDS: RESP: ALBUTEROL 2.5 MG/IPRATROPIUM 0.5 MG NEB (PRN) INH (04:02)
[2016-08-19 05:04] LABS: AUTOMATED NEUTROPHIL # 8.5 TH/MM3 (1.8-7.7); BASOPHIL % 0.1 % (0.0-2.0); HEMATOCRIT 35.2 % (35.0-46.0); HEMO FLAGS DIFF FINAL; LYMPH % 5.8 % (9.0-44.0); LYMPHOCYTE # 0.6 TH/MM3 (1.0-4.8); MEAN CELL VOLUME 90.4 FL (80.0-100.0); MEAN CORPUSCULAR HEMOGLOBIN 29.9 PG (27.0-34.0); MEAN CORPUSCULAR HGB CONC 33.1 % (32.0-36.0); MONO % 5.8 % (0.0-8.0); NEUT % 88.3 % (16.0-70.0); PLATELET COUNT 330 TH/MM3 (150-450); RED CELL DISTRIBUTION WIDTH 16.2 % (11.6-17.2); WHITE BLOOD COUNT 9.7 TH/MM3 (4.0-11.0)
[2016-08-19] MEDS: LEVOTHYROXINE SODIUM 200 MCG TAB PO SCH (05:17)
[2016-08-19] MEDS: VANCOMYCIN INJ 1,250 MG in SODIUM CHLOR 0.9% 250 ML INJ 250 ML IV SCH ×2 (05:17→17:52)
[2016-08-19] MEDS: methylPREDNISolone SOD SUCC 125 MG/2 ML VIAL IV SCH ×3 (05:17→22:16)
[2016-08-19] MEDS: CHLORHEXIDINE GLUCONATE 2 % 1 PACK (2 CLOTHS) TOP SCH (05:18)
[2016-08-19] MEDS: INSULIN NovoLIN REGULAR SUPPLEMENTAL SCALE SQ SCH ×4 (05:18→22:00)
[2016-08-19 05:30] LABS: ALKALINE PHOSPHATASE 101 U/L (45-117); ALT (GPT) 57 U/L (10-53); ANION GAP 4 MEQ/L (5-15); AST (GOT) 46 U/L (15-37); BICARBONATE 44.1 MEQ/L (21.0-32.0); BLOOD UREA NITROGEN 21 MG/DL (7-18); CHLORIDE 91 MEQ/L (98-107); GLOMERULAR FILTRATION RATE 104 ML/MIN (>89); MAGNESIUM 2.3 MG/DL (1.5-2.5); POTASSIUM 3.6 MEQ/L (3.5-5.1); SODIUM (NA) 139 MEQ/L (136-145); TOTAL BILIRUBIN ADULT 0.5 MG/DL (0.2-1.0)
--- NOTE | 2016-08-19 07:23 | HHI.CCPN ---
Subjective Remarks/Hospital Course 56-year-old morbidly obese female brought in the emergency department in respiratory distress. She was intubated by ER attending. She has been sick for about a week with symptoms consistent with UTI. She's had fevers and chills. She's been short of breath. She's had fatigue. She has had a cough and chest pain with coughing. The family reports that she's been delirious for the last 3 days. 08/15 Patient is sedated with Diprivan, Versed, Fentanyl and intubated. CTA chest showed no PE multifocal consolidation greatest in RLL. Tmax 100.6 08/16 Patient is sedated with Diprivan and Fentanyl. Afebrile. CXR this morning showed increase consolidation. 08/17 Patient remains sedated and intubated. T:100.4 On PRVC/AC RR 18, Tv 500, IT :1.0 PEEP:10, FIO2 75% 08/18 Remains sedated and intubated. Afebrile. CXR this morning unchanged bibasilar infiltrates and effusions. 08/19 Patient was placed on rotoprone bed last night for proning sedated with Diprivan, Versed and Fentnayl in addition she is on Nimbex. On PRVC/AC RR 20, TV 400, IT:1.1, PEEP:14 and FIO2 80%. Afebrile. Objective Vital Signs Date Time Temp Pulse Resp B/P Pulse Ox O2 Delivery O2 Flow Rate FiO2 08/19/16 06:00 72 08/19/16 04:10 94 100 08/19/16 04:00 98.7 20 137/62 Intake and Output 08/18/16 08/18/16 08/19/16 08:00 16:00 00:00 Intake Total 1423 ml 1647 ml 1141 ml Output Total 360 ml 3400 ml 1725 ml Balance 1063 ml -1753 ml -584 ml Result Diagram: 08/19/16 0431 08/19/16 0431 Other Results Laboratory Tests Test 08/18/16 08/19/16 19:34 04:31 Blood Gas Puncture Site RT RADIAL Blood Gas Patient Temperature 98.6 Blood Gas HCO3 41 mmol/L Blood Gas Base Excess 16.3 mmol/L Blood Gas Oxygen Saturation 90 % Arterial Blood pH 7.46 Arterial Blood Partial 60 mmHg Pressure CO2 Arterial Blood Partial 68 mmHg Pressure O2 Arterial Blood Oxygen Content 15.6 Vol % Arterial Blood 1.4 % Carboxyhemoglobin Arterial Blood Methemoglobin 1.1 % Blood Gas Hemoglobin 12.3 G/DL Oxygen Delivery Device VENTILATOR Blood Gas Ventilator Setting PRVC/AC Blood Gas Inspired Oxygen 75 % White Blood Count 9.7 TH/MM3 Red Blood Count 3.90 MIL/MM3 Hemoglobin 11.7 GM/DL Hematocrit 35.2 % Mean Corpuscular Volume 90.4 FL Mean Corpuscular Hemoglobin 29.9 PG Mean Corpuscular Hemoglobin 33.1 % Concent Red Cell Distribution Width 16.2 % Platelet Count 330 TH/MM3 Mean Platelet Volume 8.8 FL Neutrophils (%) (Auto) 88.3 % Lymphocytes (%) (Auto) 5.8 % Monocytes (%) (Auto) 5.8 % Eosinophils (%) (Auto) 0.0 % Basophils (%) (Auto) 0.1 % Neutrophils # (Auto) 8.5 TH/MM3 Lymphocytes # (Auto) 0.6 TH/MM3 Monocytes # (Auto) 0.6 TH/MM3 Eosinophils # (Auto) 0.0 TH/MM3 Basophils # (Auto) 0.0 TH/MM3 CBC Comment DIFF FINAL Differential Comment Sodium Level 139 MEQ/L Potassium Level 3.6 MEQ/L Chloride Level 91 MEQ/L Carbon Dioxide Level 44.1 MEQ/L Anion Gap 4 MEQ/L Blood Urea Nitrogen 21 MG/DL Creatinine 0.60 MG/DL Estimat Glomerular Filtration 104 ML/MIN Rate Random Glucose 148 MG/DL Calcium Level 8.3 MG/DL Phosphorus Level 4.8 MG/DL Magnesium Level 2.3 MG/DL Total Bilirubin 0.5 MG/DL Aspartate Amino Transf 46 U/L (AST/SGOT) Alanine Aminotransferase 57 U/L (ALT/SGPT) Alkaline Phosphatase 101 U/L Total Protein 7.2 GM/DL Albumin 2.2 GM/DL Imaging Last Impressions Chest X-Ray 08/18/16 0600 Signed Impressions: Service Date/Time: Thursday, August 18, 2016 03:08 - CONCLUSION: Unchanged bilateral pleural effusions and bibasilar infiltrates. Taco Haas Jr., MD Liver Ultrasound 08/15/16 0000 Signed Impressions: Service Date/Time: Monday, August 15, 2016 15:45 - CONCLUSION: Fatty liver and cholelithiasis. Common bile duct is dilated and common bile duct stone is not excluded. Danyel Escalante MD CT Angiography 08/15/16 0000 Signed Impressions: Service Date/Time: Monday, August 15, 2016 02:33 - CONCLUSION: 1. No evidence for pulmonary embolism. 2. Multifocal consolidation greatest in the right lower lobe and associated adenopathy. Terry Estrada MD Objective Remarks GENERAL: Patient is intubated and sedated SKIN: Warm and dry. HEAD: Normocephalic. EYES: No scleral icterus. No injection or drainage. NECK: Supple, trachea midline. No JVD or lymphadenopathy. CARDIOVASCULAR: Regular rate and rhythm without murmurs, gallops, or rubs. RESPIRATORY: Breath sounds equal bilaterally. No accessory muscle use. GASTROINTESTINAL: Abdomen soft, non-tender, nondistended. MUSCULOSKELETAL: No cyanosis, or edema. Neuro: Sedated A/P Problem List: (1) CHF (congestive heart failure) ICD Code: I50.9 Status: Acute (2) Respiratory failure ICD Code: J96.90 Status: Acute (3) Pneumonia ICD Code: J18.9 Status: Acute Assessment and Plan 1)Acute hypercapnic and hypoxemic resp failure -ARDS 2)Pneumonia community-acquired 3)Elevated LFT 4)Hypokalemia 5)Hypothyroidism 6)Dyslipidemia 7)Mild elevated trop likely 2nd resp failure 8)Morbid obesity Plan Neuro: On Diprivan, Fentanyl and versed infusions for sedation in addition she is on neuromuscular blockade ( Nimbex) Pulm: On PRVC/AC RR 20, TV 400, PEEP 14, IT: 1.1 and FIO2 80%. Decrease FIO2 as tiki. Continue with vent support keep sat >92% Bronchodilators, solumederol 60mg Q8 , give Diamox 250mg IV x1 ICU vent bundle. Pulm is following- Dr. Beck Continue with pronation. CV: Monitor HR and BP keep MAP>65mmg Echo showed EG 65-70% : Monitor renal function, I/O's. electrolytes replacement per protocol. Continue with Bumex drip 0.5mg/hr GI: Monitor LFT's..trending down, on Protonix 40mg daily for GI prophylaxis US liver: Fatty liver and cholelithiasis. Resume TF Glucerna 1.5 with goal rate 45ml/hr ID: Continue with abx ( Zithromax, Zosyn, Vanco), monitor for signs of infections. Follow up on blood and sputum cx- NGTD strep pneumonia and Legionella urinary Ag negative Heme: Monitor CBC Endo: on SSI ( medium scale) for glycemic control On Synthroid 200mcg daily. TSH 1.37 GI prophylaxis- Protonix 40mg daily DVT prophylaxis- On Heparin SQ Lines: Right IJ CVP, right rad A-line CCT 30 mins Problem Qualifiers (1) CHF (congestive heart failure): Qualified Code: I50.9 - Acute congestive heart failure, unspecified congestive heart failure type (2) Respiratory failure: Qualified Code: J96.02 - Acute respiratory failure with hypercapnia (3) Pneumonia: Qualified Code: J18.9 - Pneumonia of both lungs due to infectious organism, unspecified part of lung Ute Santamaria MD Aug 19, 2016 07:23
--- NOTE | 2016-08-19 08:00 | RADRPT ---
EXAM DATE/TIME: 08/19/2016 07:25 [facility] COMPARISON: CHEST SINGLE AP, August 18, 2016, 22:09. INDICATIONS : VDRF. MEDICAL HISTORY : Hypercholesterolemia. Hypertension. Hypothyroidism. Sleep apnea. SURGICAL HISTORY : Tubal ligation. Hysterectomy. ENCOUNTER: Subsequent ACUITY: 1 day PAIN SCORE: Non-responsive. LOCATION: Bilateral chest FINDINGS: Single AP supine portable view the chest demonstrates stable appearance of a right-sided central line , endotracheal tube and gastric tube with the proximal port below the level of the diaphragm. The amaris gs are significant for persistent by basilar airspace consolidation and likely pleural fluid. The amaris g apices remain well aerated. The heart size appears mildly enlarged with prominence of the pulmonary vasculature, likely secondary to portable technique. CONCLUSION: Stable lines and tubes. Stable by basilar airspace consolidation and/or pleural fluid. No evidence of pneumothorax. Samantha Montenegro MD on August 19, 2016 at 7:56 Board Certified Radiologist. This report was verified electronically.
[2016-08-19] MEDS: RESP: ALBUTEROL 2.5 MG/IPRATROPIUM 0.5 MG NEB (SCH) NEB ×4 (08:06→20:07)
[2016-08-19] MEDS: MIDAZOLAM 100 MG/100 ML INJ 100 ML IV SCH ×2 (08:35→17:52)
[2016-08-19] MEDS: fentaNYL DRIP 250 ML IV SCH ×2 (08:37→17:52)
[2016-08-19] MEDS: PANTOPRAZOLE SODIUM 40 MG VIAL IV PUSH SCH (08:37)
[2016-08-19] MEDS: SODIUM CHLORIDE 0.9% FLUSH 10 ML FLUSH IV FLUSH SCH ×2 (08:38→19:24)
[2016-08-19] MEDS: BENEPROTEIN POWDER 1 PACK G-TUBE SCH ×3 (08:39→17:52)
[2016-08-19] MEDS: ARTIFICIAL TEARS OPTH SOLN 15 ML BTL EACH EYE SCH ×3 (08:40→17:52)
[2016-08-19] MEDS: DOCUSATE SODIUM 100 MG/10 ML UDC G-TUBE SCH ×2 (10:38→22:16)
[2016-08-19] MEDS: CISATRACURIUM INJ 100 MG in SODIUM CHLOR 0.9% 250 ML INJ 240 ML IV SCH ×2 (13:15→19:12)
--- NOTE | 2016-08-19 15:27 | HHI.PR ---
Subjective Remarks Sedated on the vent . FIO2 at 80 %. CXR is worse . She is restless. Now on prone bed. Objective Vital Signs Date Time Temp Pulse Resp B/P Pulse Ox O2 Delivery O2 Flow Rate FiO2 08/19/16 14:00 70 08/19/16 12:00 80 08/19/16 12:00 65 08/19/16 12:00 98.4 63 20 125/58 97 107/61 08/19/16 11:27 96 80 08/19/16 10:00 63 08/19/16 08:06 93 80 08/19/16 08:00 80 08/19/16 08:00 98.9 70 20 128/58 93 108/58 08/19/16 08:00 70 08/19/16 06:00 72 08/19/16 04:10 94 100 08/19/16 04:00 100 08/19/16 04:00 64 08/19/16 04:00 98.7 64 20 137/62 94 08/19/16 02:00 64 08/19/16 01:25 94 100 08/19/16 00:00 63 08/19/16 00:00 100 08/19/16 00:00 98.6 63 20 135/81 91 08/18/16 22:00 76 08/18/16 21:47 92 75 08/18/16 20:00 75 08/18/16 20:00 60 08/18/16 20:00 98.8 60 20 106/63 93 08/18/16 19:05 91 75 08/18/16 18:00 88 08/18/16 16:00 100.2 91 38 129/91 92 08/18/16 16:00 75 08/18/16 16:00 91 I/O 08/18/16 08/18/16 08/18/16 08/19/16 08/19/16 08/19/16 07:00 15:00 23:00 07:00 15:00 23:00 Intake Total 1423 ml 1647 ml 1141 ml 1394 ml 1174 ml Output Total 360 ml 3400 ml 1725 ml 2760 ml 2200 ml Balance 1063 ml -1753 ml -584 ml -1366 ml -1026 ml Intake IV Total 803 ml 887 ml 841 ml 1040 ml 1040 ml Tube Feeding 560 ml 400 ml 240 ml 294 ml 34 ml Tube Irrigant 60 ml Other 360 ml 60 ml 60 ml 100 ml Output Urine Total 300 ml 3400 ml 1725 ml 2500 ml 1900 ml Stool Total 200 ml 300 ml Gastric Drainage Total 60 ml 60 ml # Bowel Movements 1 Result Diagram: 08/19/1643008/19/16430 Objective Remarks This is an obese middle-aged white female who is sedated. She does open her eyes. She is intubated orally assisting the ventilator. HEENT: Head normocephalic. Pupils reactive and equal. Sclerae are clear Throat has secretions. Nasal mucosa clear Neck: Supple. No bruits, no thyroid enlargement, no lymphadenopathy. Chest: Distant breath sounds. Expiratory wheezes in the upper lung palafox. Heart: Heart sounds were regular. S1-S2 no murmur, no S3. Abdomen: Soft, benign. No masses, no organomegaly or tenderness. Bowel sounds are active. Extremities: Mild edema . Reflexes are not elicited. She is sedated. Assessment and Plan Assessment and Plan IMPRESSION 1. Acute hypercapnic respiratory failure. 2. Pulmonary edema. 3. Basilar pneumonia 4. Obstructive sleep apnea syndrome 5. Hypertension 6. Hypothyroidism. 7. Obesity. Plan : 1. Cont Antibiotics. 2. Wean FIo2 to keep sat >92. 3. Nebs qid , duoneb. 4. Continue Prone bed 5. Chest X ray ,BMP, CBC in am. 6. Trach suction and lavage. 7. Tube feeds at 50 CC 8. Keep sedated. Abimael Beck MD Aug 19, 2016 15:27
[2016-08-19] MEDS: PRAVASTATIN SOD 20 MG TAB PO SCH (19:24)
[2016-08-20] VITALS (20 sets, daily range): BP systolic 92–148; BP diastolic 53–79; PULSE 53–74; RESP 20; TEMP 98.7–99.5; O2SAT 92–97
[2016-08-20] MEDS: RESP: ALBUTEROL 2.5 MG/IPRATROPIUM 0.5 MG NEB (SCH) NEB ×7 (00:29→23:29)
[2016-08-20] MEDS: fentaNYL DRIP 250 ML IV SCH ×3 (03:34→23:09)
[2016-08-20] MEDS: CISATRACURIUM INJ 100 MG in SODIUM CHLOR 0.9% 250 ML INJ 240 ML IV SCH ×4 (03:34→23:16)
[2016-08-20] MEDS: MIDAZOLAM 100 MG/100 ML INJ 100 ML IV SCH ×3 (03:34→23:08)
[2016-08-20] MEDS: RESP: ACETYLCYSTEINE 10% 30 ML NEB NEB SCH ×4 (03:37→19:15)
[2016-08-20] MEDS: INSULIN NovoLIN REGULAR SUPPLEMENTAL SCALE SQ SCH ×4 (04:00→22:00)
[2016-08-20] MEDS: CHLORHEXIDINE GLUCONATE 2 % 1 PACK (2 CLOTHS) TOP SCH (04:00)
[2016-08-20 05:14] LABS: AUTOMATED NEUTROPHIL # 7.7 TH/MM3 (1.8-7.7); BASOPHIL % 0.2 % (0.0-2.0); HEMATOCRIT 33.5 % (35.0-46.0); HEMO FLAGS DIFF FINAL; LYMPH % 4.4 % (9.0-44.0); LYMPHOCYTE # 0.4 TH/MM3 (1.0-4.8); MEAN CELL VOLUME 88.3 FL (80.0-100.0); MEAN CORPUSCULAR HEMOGLOBIN 29.6 PG (27.0-34.0); MEAN CORPUSCULAR HGB CONC 33.6 % (32.0-36.0); MONO % 5.2 % (0.0-8.0); NEUT % 90.2 % (16.0-70.0); PLATELET COUNT 368 TH/MM3 (150-450); RED CELL DISTRIBUTION WIDTH 16.4 % (11.6-17.2); WHITE BLOOD COUNT 8.6 TH/MM3 (4.0-11.0)
[2016-08-20] MEDS: LEVOTHYROXINE SODIUM 200 MCG TAB PO SCH (05:23)
[2016-08-20] MEDS: methylPREDNISolone SOD SUCC 125 MG/2 ML VIAL IV SCH ×2 (05:24→13:19)
[2016-08-20] MEDS: PIPERACIL-TAZO 4.5 GM PREMIX 100 ML IV SCH ×3 (05:24→17:18)
[2016-08-20] MEDS: VANCOMYCIN INJ 1,250 MG in SODIUM CHLOR 0.9% 250 ML INJ 250 ML IV SCH (05:24)
[2016-08-20] MEDS ORDERED: PHARMACY ORDERED LAB XX ONE (05:45)
[2016-08-20 05:54] LABS: ALKALINE PHOSPHATASE 90 U/L (45-117); ALT (GPT) 70 U/L (10-53); ANION GAP 8 MEQ/L (5-15); AST (GOT) 57 U/L (15-37); BICARBONATE 35.7 MEQ/L (21.0-32.0); BLOOD UREA NITROGEN 21 MG/DL (7-18); CHLORIDE 94 MEQ/L (98-107); GLOMERULAR FILTRATION RATE 112 ML/MIN (>89); MAGNESIUM 2.6 MG/DL (1.5-2.5); POTASSIUM 3.7 MEQ/L (3.5-5.1); SODIUM (NA) 138 MEQ/L (136-145); TOTAL BILIRUBIN ADULT 0.5 MG/DL (0.2-1.0)
[2016-08-20] MEDS: PROPOFOL 1000 MG/100 ML INJ 100 ML IV SCH ×3 (05:56→21:35)
--- NOTE | 2016-08-20 07:20 | HHI.CCPN ---
Subjective Remarks/Hospital Course 56-year-old morbidly obese female brought in the emergency department in respiratory distress. She was intubated by ER attending. She has been sick for about a week with symptoms consistent with UTI. She's had fevers and chills. She's been short of breath. She's had fatigue. She has had a cough and chest pain with coughing. The family reports that she's been delirious for the last 3 days. 08/15 Patient is sedated with Diprivan, Versed, Fentanyl and intubated. CTA chest showed no PE multifocal consolidation greatest in RLL. Tmax 100.6 08/16 Patient is sedated with Diprivan and Fentanyl. Afebrile. CXR this morning showed increase consolidation. 08/17 Patient remains sedated and intubated. T:100.4 On PRVC/AC RR 18, Tv 500, IT :1.0 PEEP:10, FIO2 75% 08/18 Remains sedated and intubated. Afebrile. CXR this morning unchanged bibasilar infiltrates and effusions. 08/19 Patient was placed on rotoprone bed last night for proning sedated with Diprivan, Versed and Fentnayl in addition she is on Nimbex. On PRVC/AC RR 20, TV 400, IT:1.1, PEEP:14 and FIO2 80%. Afebrile. 08/20 Patient remains sedated and intubated. Remains on PRVC/AC mode with improvements in her oxygenation on FIO2 50% from 80% yesterday and PEEP:12. Objective Vital Signs Date Time Temp Pulse Resp B/P Pulse Ox O2 Delivery O2 Flow Rate FiO2 08/20/16 06:00 60 08/20/16 04:00 98.8 20 143/71 97 104/58 08/20/16 04:00 60 Intake and Output 08/19/16 08/19/16 08/20/16 08:00 16:00 00:00 Intake Total 1394 ml 1174 ml 1483 ml Output Total 2760 ml 2200 ml 2550 ml Balance -1366 ml -1026 ml -1067 ml Result Diagram: 08/20/16 0416 08/20/16 0416 Other Results Laboratory Tests Test 08/20/16 04:16 White Blood Count 8.6 TH/MM3 Red Blood Count 3.80 MIL/MM3 Hemoglobin 11.3 GM/DL Hematocrit 33.5 % Mean Corpuscular Volume 88.3 FL Mean Corpuscular Hemoglobin 29.6 PG Mean Corpuscular Hemoglobin 33.6 % Concent Red Cell Distribution Width 16.4 % Platelet Count 368 TH/MM3 Mean Platelet Volume 8.7 FL Neutrophils (%) (Auto) 90.2 % Lymphocytes (%) (Auto) 4.4 % Monocytes (%) (Auto) 5.2 % Eosinophils (%) (Auto) 0.0 % Basophils (%) (Auto) 0.2 % Neutrophils # (Auto) 7.7 TH/MM3 Lymphocytes # (Auto) 0.4 TH/MM3 Monocytes # (Auto) 0.5 TH/MM3 Eosinophils # (Auto) 0.0 TH/MM3 Basophils # (Auto) 0.0 TH/MM3 CBC Comment DIFF FINAL Differential Comment Sodium Level 138 MEQ/L Potassium Level 3.7 MEQ/L Chloride Level 94 MEQ/L Carbon Dioxide Level 35.7 MEQ/L Anion Gap 8 MEQ/L Blood Urea Nitrogen 21 MG/DL Creatinine 0.56 MG/DL Estimat Glomerular Filtration 112 ML/MIN Rate Random Glucose 173 MG/DL Calcium Level 8.5 MG/DL Phosphorus Level 3.0 MG/DL Magnesium Level 2.6 MG/DL Total Bilirubin 0.5 MG/DL Aspartate Amino Transf 57 U/L (AST/SGOT) Alanine Aminotransferase 70 U/L (ALT/SGPT) Alkaline Phosphatase 90 U/L Total Protein 7.0 GM/DL Albumin 2.0 GM/DL Imaging Last Impressions Chest X-Ray 08/19/16 0000 Signed Impressions: Service Date/Time: Friday, August 19, 2016 07:25 - CONCLUSION: Stable lines and tubes. Stable by basilar airspace consolidation and/or pleural fluid. No evidence of pneumothorax. Samantha Montenegro MD Liver Ultrasound 08/15/16 0000 Signed Impressions: Service Date/Time: Monday, August 15, 2016 15:45 - CONCLUSION: Fatty liver and cholelithiasis. Common bile duct is dilated and common bile duct stone is not excluded. Danyel Escalante MD CT Angiography 08/15/16 0000 Signed Impressions: Service Date/Time: Monday, August 15, 2016 02:33 - CONCLUSION: 1. No evidence for pulmonary embolism. 2. Multifocal consolidation greatest in the right lower lobe and associated adenopathy. Terry Estrada MD Objective Remarks GENERAL: Patient is intubated and sedated SKIN: Warm and dry. HEAD: Normocephalic. EYES: No scleral icterus. No injection or drainage. NECK: Supple, trachea midline. No JVD or lymphadenopathy. CARDIOVASCULAR: Regular rate and rhythm without murmurs, gallops, or rubs. RESPIRATORY: Breath sounds equal bilaterally. No accessory muscle use. GASTROINTESTINAL: Abdomen soft, non-tender, nondistended. MUSCULOSKELETAL: No cyanosis, or edema. Neuro: Sedated A/P Problem List: (1) CHF (congestive heart failure) ICD Code: I50.9 Status: Acute (2) Respiratory failure ICD Code: J96.90 Status: Acute (3) Pneumonia ICD Code: J18.9 Status: Acute Assessment and Plan 1)Acute hypercapnic and hypoxemic resp failure -ARDS 2)Pneumonia community-acquired 3)Elevated LFT 4)Hypokalemia 5)Hypothyroidism 6)Dyslipidemia 7)Mild elevated trop likely 2nd resp failure 8)Morbid obesity Plan Neuro: On Diprivan, Fentanyl and versed infusions for sedation in addition she is on neuromuscular blockade ( Nimbex) Not a candidate for sedation vacation yet as she is on rotoprone bed. Pulm: On PRVC/AC RR 20, TV 400, PEEP 12, IT: 1.1 and FIO2 50%. Decrease FIO2 as tiki. Continue with vent support keep sat >92% Bronchodilators, solumederol 60mg Q8 ICU vent bundle. Pulm is following- Dr. Beck Continue with pronation. CV: Monitor HR and BP keep MAP>65mmg Echo showed EG 65-70% : Monitor renal function, I/O's. electrolytes replacement per protocol. Continue with Bumex drip 0.5mg/hr GI: Monitor LFT's..trending down, on Protonix 40mg daily for GI prophylaxis US liver: Fatty liver and cholelithiasis. On TF Glucerna 1.5 with goal rate 45ml/hr ID: Continue with abx ( Zithromax, Zosyn) d/c, monitor for signs of infections. Follow up on blood and sputum cx- NGTD strep pneumonia and Legionella urinary Ag negative Heme: Monitor CBC Endo: on SSI ( medium scale) for glycemic control On Synthroid 200mcg daily. TSH 1.37 GI prophylaxis- Protonix 40mg daily DVT prophylaxis- On Heparin SQ Lines: Right IJ CVP, right rad A-line placed 08/18 CCT 30 mins Problem Qualifiers (1) CHF (congestive heart failure): Qualified Code: I50.9 - Acute congestive heart failure, unspecified congestive heart failure type (2) Respiratory failure: Qualified Code: J96.02 - Acute respiratory failure with hypercapnia (3) Pneumonia: Qualified Code: J18.9 - Pneumonia of both lungs due to infectious organism, unspecified part of lung Ute Santamaria MD Aug 20, 2016 07:20
[2016-08-20] MEDS: PANTOPRAZOLE SODIUM 40 MG VIAL IV PUSH SCH (07:52)
[2016-08-20] MEDS: SODIUM CHLORIDE 0.9% FLUSH 10 ML FLUSH IV FLUSH SCH ×2 (07:53→21:00)
[2016-08-20] MEDS: ARTIFICIAL TEARS OPTH SOLN 15 ML BTL EACH EYE SCH ×3 (07:53→17:18)
[2016-08-20] MEDS: BENEPROTEIN POWDER 1 PACK G-TUBE SCH ×3 (07:53→17:19)
[2016-08-20] MEDS: HEPARIN SODIUM - SQ 10,000 UNITS/ML VIAL SQ SCH ×2 (07:53→17:19)
[2016-08-20] MEDS ORDERED: BUMETANIDE INJ 100 ML IV SCH (09:00)
[2016-08-20] MEDS: DOCUSATE SODIUM 100 MG/10 ML UDC G-TUBE SCH ×2 (11:56→22:11)
--- NOTE | 2016-08-20 13:31 | HHI.PR ---
Subjective Remarks Sedated on the vent . FIO2 at 70 %. . She is on a prone bed. Desaturated early today Objective Vital Signs Date Time Temp Pulse Resp B/P Pulse Ox O2 Delivery O2 Flow Rate FiO2 08/20/16 13:08 92 70 08/20/16 12:00 68 08/20/16 12:00 98.7 67 20 148/79 93 104/56 08/20/16 12:00 70 08/20/16 10:00 66 08/20/16 09:49 96 50 08/20/16 08:00 50 08/20/16 08:00 71 08/20/16 08:00 99.0 71 20 141/73 93 108/59 08/20/16 07:30 50 08/20/16 07:21 93 50 08/20/16 06:00 60 08/20/16 04:00 98.8 53 20 143/71 97 104/58 08/20/16 04:00 53 08/20/16 04:00 60 08/20/16 03:37 97 60 08/20/16 02:00 58 08/20/16 00:29 96 70 08/20/16 00:00 60 08/20/16 00:00 70 08/20/16 00:00 98.7 60 20 136/65 97 92/53 08/19/16 22:00 61 08/19/16 20:07 98 70 08/19/16 20:00 70 08/19/16 20:00 66 08/19/16 20:00 98.9 58 20 134/60 97 95/56 08/19/16 18:00 63 08/19/16 17:38 97 70 08/19/16 16:00 70 08/19/16 16:00 68 08/19/16 16:00 97 70 08/19/16 16:00 98.8 68 20 136/61 97 106/61 08/19/16 15:00 70 08/19/16 14:32 98 80 08/19/16 14:00 70 I/O 08/19/16 08/19/16 08/19/16 08/20/16 08/20/16 08/20/16 07:00 15:00 23:00 07:00 15:00 23:00 Intake Total 1394 ml 1174 ml 1483 ml 1552 ml Output Total 2760 ml 2200 ml 2550 ml 1000 ml Balance -1366 ml -1026 ml -1067 ml 552 ml Intake IV Total 1040 ml 1040 ml 1325 ml 1286 ml Tube Feeding 294 ml 34 ml 98 ml 206 ml Tube Irrigant 60 ml Other 60 ml 100 ml 60 ml Output Urine Total 2500 ml 1900 ml 2350 ml 900 ml Stool Total 200 ml 300 ml 200 ml 100 ml Gastric Drainage Total 60 ml Result Diagram: 08/20/16 0416 08/20/16 041 Objective Remarks This is an obese middle-aged white female who is sedated. She does open her eyes. She is intubated orally assisting the ventilator. HEENT: Head normocephalic. Pupils reactive and equal. Throat clear Neck: Supple. No bruits, no thyroid enlargement, no lymphadenopathy. Chest: Distant breath sounds. Expiratory wheezes in the upper lung palafox. Heart: Heart sounds were regular. S1-S2 no murmur, no S3. Abdomen: Soft, benign. No masses, no organomegaly or tenderness. Bowel sounds are active. Extremities: Mild edema . Reflexes are not elicited.Moves feet She is sedated. Assessment and Plan Assessment and Plan IMPRESSION 1. Acute hypercapnic respiratory failure. 2. Pulmonary edema. 3. Basilar pneumonia 4. Obstructive sleep apnea syndrome 5. Hypertension 6. Hypothyroidism. 7. Obesity. Plan : 1. Cont Antibiotics. 2. Wean FIo2 to keep sat >92. 3. Nebs qid , duoneb. 4. Continue Prone bed 5. Chest X ray ,BMP, CBC in am. 6. Trach suction and lavage. 7. Tube feeds at 50 CC 8. Keep sedated. 9. Taper solumedrol to 40 mg q8h. Abimael Beck MD Aug 20, 2016 13:31
[2016-08-20] MEDS: methylPREDNISolone SOD SUCC 40 MG/1 ML VIAL IV SCH ×2 (14:00→21:06)
[2016-08-20] MEDS: PRAVASTATIN SOD 20 MG TAB PO SCH (21:06)
[2016-08-20] MEDS: AZITHROMYCIN INJ 500 MG in SODIUM CHLOR 0.9% 250 ML INJ 250 ML IV SCH (23:08)
[2016-08-21] VITALS (20 sets, daily range): BP systolic 103–150; BP diastolic 57–82; PULSE 54–96; RESP 20; TEMP 98.3–99.8; O2SAT 90–98
[2016-08-21] MEDS: PIPERACIL-TAZO 4.5 GM PREMIX 100 ML IV SCH ×5 (00:31→23:01)
[2016-08-21] MEDS: HEPARIN SODIUM - SQ 10,000 UNITS/ML VIAL SQ SCH ×4 (00:31→23:01)
[2016-08-21 02:28] LABS: AUTOMATED NEUTROPHIL # 7.2 TH/MM3 (1.8-7.7); BASOPHIL % 0.2 % (0.0-2.0); HEMATOCRIT 33.2 % (35.0-46.0); HEMO FLAGS DIFF FINAL; LYMPH % 3.1 % (9.0-44.0); LYMPHOCYTE # 0.3 TH/MM3 (1.0-4.8); MEAN CELL VOLUME 88.1 FL (80.0-100.0); MEAN CORPUSCULAR HEMOGLOBIN 28.9 PG (27.0-34.0); MEAN CORPUSCULAR HGB CONC 32.8 % (32.0-36.0); MONO % 8.3 % (0.0-8.0); NEUT % 88.4 % (16.0-70.0); PLATELET COUNT 386 TH/MM3 (150-450); RED BLOOD COUNT 3.77 MIL/MM3 (4.00-5.30); RED CELL DISTRIBUTION WIDTH 16.3 % (11.6-17.2); WHITE BLOOD COUNT 8.1 TH/MM3 (4.0-11.0)
[2016-08-21 02:41] LABS: ALT (GPT) 97 U/L (10-53); ANION GAP 6 MEQ/L (5-15); AST (GOT) 56 U/L (15-37); BICARBONATE 35.5 MEQ/L (21.0-32.0); BLOOD UREA NITROGEN 27 MG/DL (7-18); CHLORIDE 99 MEQ/L (98-107); GLOMERULAR FILTRATION RATE 115 ML/MIN (>89); POTASSIUM 3.8 MEQ/L (3.5-5.1); SODIUM (NA) 140 MEQ/L (136-145)
[2016-08-21 02:43] LABS: ALKALINE PHOSPHATASE 82 U/L (45-117); TOTAL BILIRUBIN ADULT 0.4 MG/DL (0.2-1.0)
[2016-08-21] MEDS: CHLORHEXIDINE GLUCONATE 2 % 1 PACK (2 CLOTHS) TOP SCH (03:10)
[2016-08-21] MEDS: RESP: ALBUTEROL 2.5 MG/IPRATROPIUM 0.5 MG NEB (SCH) NEB ×6 (03:41→23:14)
[2016-08-21] MEDS: RESP: ACETYLCYSTEINE 10% 30 ML NEB NEB SCH ×4 (03:41→19:10)
[2016-08-21] MEDS: INSULIN NovoLIN REGULAR SUPPLEMENTAL SCALE SQ SCH ×4 (04:00→22:00)
[2016-08-21] MEDS: methylPREDNISolone SOD SUCC 40 MG/1 ML VIAL IV SCH ×3 (05:09→20:08)
[2016-08-21] MEDS: LEVOTHYROXINE SODIUM 200 MCG TAB PO SCH (05:09)
[2016-08-21] MEDS: PROPOFOL 1000 MG/100 ML INJ 100 ML IV SCH ×4 (06:13→23:02)
[2016-08-21] MEDS: CISATRACURIUM INJ 100 MG in SODIUM CHLOR 0.9% 250 ML INJ 240 ML IV SCH ×3 (06:13→20:04)
--- NOTE | 2016-08-21 07:16 | HHI.CCPN ---
Subjective Remarks/Hospital Course 56-year-old morbidly obese female brought in the emergency department in respiratory distress. She was intubated by ER attending. She has been sick for about a week with symptoms consistent with UTI. She's had fevers and chills. She's been short of breath. She's had fatigue. She has had a cough and chest pain with coughing. The family reports that she's been delirious for the last 3 days. 08/15 Patient is sedated with Diprivan, Versed, Fentanyl and intubated. CTA chest showed no PE multifocal consolidation greatest in RLL. Tmax 100.6 08/16 Patient is sedated with Diprivan and Fentanyl. Afebrile. CXR this morning showed increase consolidation. 08/17 Patient remains sedated and intubated. T:100.4 On PRVC/AC RR 18, Tv 500, IT :1.0 PEEP:10, FIO2 75% 08/18 Remains sedated and intubated. Afebrile. CXR this morning unchanged bibasilar infiltrates and effusions. 08/19 Patient was placed on rotoprone bed last night for proning sedated with Diprivan, Versed and Fentnayl in addition she is on Nimbex. On PRVC/AC RR 20, TV 400, IT:1.1, PEEP:14 and FIO2 80%. Afebrile. 08/20 Patient remains sedated and intubated. Remains on PRVC/AC mode with improvements in her oxygenation on FIO2 50% from 80% yesterday and PEEP:12. 08/21 Patient remains sedated and intubated. On PRVC/AC mode with RR 20, TV 400, IT:1.1, PEEP: 12 and FIO2 50%. Afebrile. Objective Vital Signs Date Time Temp Pulse Resp B/P Pulse Ox O2 Delivery O2 Flow Rate FiO2 08/21/16 06:00 59 08/21/16 04:00 98.5 20 150/82 97 111/59 08/21/16 04:00 60 Intake and Output 08/20/16 08/20/16 08/20/16 07:59 15:59 23:59 Intake Total 1552 ml 1137 ml 1787 ml Output Total 1000 ml 2100 ml 1600 ml Balance 552 ml -963 ml 187 ml Result Diagram: 08/21/16 0154 08/21/16 0154 Other Results Laboratory Tests Test 08/20/16 08/21/16 17:30 01:54 Potassium Level 3.6 MEQ/L 3.8 MEQ/L White Blood Count 8.1 TH/MM3 Red Blood Count 3.77 MIL/MM3 Hemoglobin 10.9 GM/DL Hematocrit 33.2 % Mean Corpuscular Volume 88.1 FL Mean Corpuscular Hemoglobin 28.9 PG Mean Corpuscular Hemoglobin 32.8 % Concent Red Cell Distribution Width 16.3 % Platelet Count 386 TH/MM3 Mean Platelet Volume 8.6 FL Neutrophils (%) (Auto) 88.4 % Lymphocytes (%) (Auto) 3.1 % Monocytes (%) (Auto) 8.3 % Eosinophils (%) (Auto) 0.0 % Basophils (%) (Auto) 0.2 % Neutrophils # (Auto) 7.2 TH/MM3 Lymphocytes # (Auto) 0.3 TH/MM3 Monocytes # (Auto) 0.7 TH/MM3 Eosinophils # (Auto) 0.0 TH/MM3 Basophils # (Auto) 0.0 TH/MM3 CBC Comment DIFF FINAL Differential Comment Sodium Level 140 MEQ/L Chloride Level 99 MEQ/L Carbon Dioxide Level 35.5 MEQ/L Anion Gap 6 MEQ/L Blood Urea Nitrogen 27 MG/DL Creatinine 0.55 MG/DL Estimat Glomerular Filtration 115 ML/MIN Rate Random Glucose 199 MG/DL Calcium Level 8.4 MG/DL Total Bilirubin 0.4 MG/DL Aspartate Amino Transf 56 U/L (AST/SGOT) Alanine Aminotransferase 97 U/L (ALT/SGPT) Alkaline Phosphatase 82 U/L Total Protein 6.8 GM/DL Albumin 2.1 GM/DL Imaging Last Impressions Chest X-Ray 08/19/16 0000 Signed Impressions: Service Date/Time: Friday, August 19, 2016 07:25 - CONCLUSION: Stable lines and tubes. Stable by basilar airspace consolidation and/or pleural fluid. No evidence of pneumothorax. Samantha Montenegro MD Liver Ultrasound 08/15/16 0000 Signed Impressions: Service Date/Time: Monday, August 15, 2016 15:45 - CONCLUSION: Fatty liver and cholelithiasis. Common bile duct is dilated and common bile duct stone is not excluded. Danyel Escalante MD CT Angiography 08/15/16 0000 Signed Impressions: Service Date/Time: Monday, August 15, 2016 02:33 - CONCLUSION: 1. No evidence for pulmonary embolism. 2. Multifocal consolidation greatest in the right lower lobe and associated adenopathy. Terry Estrada MD Objective Remarks GENERAL: Patient is intubated and sedated SKIN: Warm and dry. HEAD: Normocephalic. EYES: No scleral icterus. No injection or drainage. NECK: Supple, trachea midline. No JVD or lymphadenopathy. CARDIOVASCULAR: Regular rate and rhythm without murmurs, gallops, or rubs. RESPIRATORY: Breath sounds equal bilaterally. No accessory muscle use. GASTROINTESTINAL: Abdomen soft, non-tender, nondistended. MUSCULOSKELETAL: No cyanosis, or edema. Neuro: Sedated A/P Problem List: (1) CHF (congestive heart failure) ICD Code: I50.9 Status: Acute (2) Respiratory failure ICD Code: J96.90 Status: Acute (3) Pneumonia ICD Code: J18.9 Status: Acute Assessment and Plan 1)Acute hypercapnic and hypoxemic resp failure -ARDS 2)Pneumonia community-acquired 3)Elevated LFT 4)Hypokalemia 5)Hypothyroidism 6)Dyslipidemia 7)Mild elevated trop likely 2nd resp failure 8)Morbid obesity Plan Neuro: On Diprivan, Fentanyl and versed infusions for sedation in addition she is on neuromuscular blockade ( Nimbex) Not a candidate for sedation vacation yet as she is on rotoprone bed. Pulm: On PRVC/AC RR 20, TV 400, PEEP 12, IT: 1.1 and FIO2 50%. Decrease FIO2 as tiki. Continue with vent support keep sat >92% Bronchodilators, solumederol 60mg Q8 ICU vent bundle. Pulm is following- Dr. Beck Continue with pronation. Check CXR and ABG CV: Monitor HR and BP keep MAP>65mmg Echo showed EG 65-70% : Monitor renal function, I/O's. electrolytes replacement per protocol. Continue with Bumex drip 0.5mg/hr GI: Monitor LFT's, on Protonix 40mg daily for GI prophylaxis US liver: Fatty liver and cholelithiasis. On TF Glucerna 1.5 @ 45ml/hr ID: Continue with abx ( Zithromax, Zosyn) monitor for signs of infections. Follow up on blood and sputum cx- NGTD strep pneumonia and Legionella urinary Ag negative Heme: Monitor CBC Endo: on SSI ( medium scale) for glycemic control On Synthroid 200mcg daily. TSH 1.37 GI prophylaxis- Protonix 40mg daily DVT prophylaxis- On Heparin SQ Lines: Right IJ CVP, right rad A-line placed 08/18 CCT 30 mins Problem Qualifiers (1) CHF (congestive heart failure): Qualified Code: I50.9 - Acute congestive heart failure, unspecified congestive heart failure type (2) Respiratory failure: Qualified Code: J96.02 - Acute respiratory failure with hypercapnia (3) Pneumonia: Qualified Code: J18.9 - Pneumonia of both lungs due to infectious organism, unspecified part of lung Ute Santamaria MD Aug 21, 2016 07:15
[2016-08-21] MEDS: BENEPROTEIN POWDER 1 PACK G-TUBE SCH ×3 (08:25→17:31)
[2016-08-21] MEDS: ARTIFICIAL TEARS OPTH SOLN 15 ML BTL EACH EYE SCH ×3 (08:25→17:31)
[2016-08-21] MEDS: SODIUM CHLORIDE 0.9% FLUSH 10 ML FLUSH IV FLUSH SCH ×2 (08:26→20:05)
[2016-08-21] MEDS: PANTOPRAZOLE SODIUM 40 MG VIAL IV PUSH SCH (08:26)
--- NOTE | 2016-08-21 08:42 | RADRPT ---
EXAM DATE/TIME: 08/21/2016 07:23 [facility] COMPARISON: CHEST SINGLE AP, August 19, 2016, 7:25. INDICATIONS : VDRF. MEDICAL HISTORY : Hypercholesterolemia. Hypertension. Hypothyroidism. Sleep apnea. SURGICAL HISTORY : Tubal ligation. Hysterectomy. ENCOUNTER: Subsequent ACUITY: 3 days PAIN SCORE: Non-responsive. LOCATION: Bilateral chest FINDINGS: A single portable frontal chest shows better aeration than on the prior study. A right lower lobe inf iltrate persists. No discrete effusion. Left lung is clear. Heart is mildly enlarged but stable. Righ t-sided central line and nasogastric tube noted. Tip of the endotracheal tube approximately 5 cm prox imal to the armaan. CONCLUSION: Better aeration from the prior study. Right lower lobe infiltrate is unchanged. Taco Haas Jr., MD on August 21, 2016 at 8:39 Board Certified Radiologist. This report was verified electronically.
[2016-08-21] MEDS: DOCUSATE SODIUM 100 MG/10 ML UDC G-TUBE SCH ×2 (10:17→20:08)
[2016-08-21 10:28] LABS: BLOOD GAS CARBOXYHEMOGLOBIN 1.3 % (0-4); BLOOD GAS HCO3 32 mmol/L (22-26); BLOOD GAS METHEMOGLOBIN 1.4 % (0-2); BLOOD GAS O2 HGB SATURATION 93 % (90-100); BLOOD GAS OXYGEN CONTENT 14.5 Vol % (12.0-20.0); BLOOD GAS PCO2 55 mmHg (38-42); BLOOD GAS PO2 81 mmHg (61-120); BLOOD GAS TOTAL HGB 11.1 G/DL (12.0-16.0); TEMP CORR TO 98.6
[2016-08-21 10:29] LABS: CRITICAL VALUE YES; DRAW SITE ART LINE; FIO2 45 %; OXYGEN DEVICE VENTILATOR; VENT SETTINGS PRVC/AC 400/20
[2016-08-21 10:30] LABS: STAT NO
[2016-08-21] MEDS: MIDAZOLAM 100 MG/100 ML INJ 100 ML IV SCH ×2 (11:23→20:05)
[2016-08-21] MEDS: fentaNYL DRIP 250 ML IV SCH ×2 (11:23→16:33)
--- NOTE | 2016-08-21 12:50 | HHI.PR ---
Subjective Remarks Sedated on the vent . FIO2 at 45 %. She is on a prone bed. CXR stable. Objective Vital Signs Date Time Temp Pulse Resp B/P Pulse Ox O2 Delivery O2 Flow Rate FiO2 08/21/16 12:00 71 08/21/16 12:00 99.5 70 20 131/65 90 107/61 08/21/16 12:00 45 08/21/16 11:50 98 45 08/21/16 10:00 61 08/21/16 08:00 50 08/21/16 08:00 98.7 60 20 136/72 94 134/79 08/21/16 08:00 60 08/21/16 07:30 94 50 08/21/16 06:00 59 08/21/16 04:00 54 08/21/16 04:00 98.5 54 20 150/82 97 111/59 08/21/16 04:00 60 08/21/16 03:41 96 60 08/21/16 02:00 55 08/21/16 01:00 98.3 67 20 127/65 98 126/75 08/21/16 00:00 96 08/21/16 00:00 100 08/20/16 23:29 96 60 08/20/16 22:00 64 08/20/16 20:00 99.5 71 20 125/56 96 104/55 08/20/16 20:00 71 08/20/16 20:00 60 08/20/16 19:15 95 60 08/20/16 18:00 74 08/20/16 16:50 96 70 08/20/16 16:00 70 08/20/16 16:00 72 08/20/16 16:00 99.1 71 20 131/60 96 100/55 08/20/16 14:00 74 08/20/16 13:08 92 70 I/O 08/20/16 08/20/16 08/20/16 08/21/16 08/21/16 08/21/16 07:00 15:00 23:00 07:00 15:00 23:00 Intake Total 1552 ml 1137 ml 1787 ml 1295 ml Output Total 1000 ml 2100 ml 1600 ml 500 ml Balance 552 ml -963 ml 187 ml 795 ml Intake IV Total 1286 ml 802 ml 1313 ml 1062 ml Tube Feeding 206 ml 235 ml 354 ml 173 ml Other 60 ml 100 ml 120 ml 60 ml Output Urine Total 900 ml 2100 ml 1600 ml 500 ml Stool Total 100 ml 0 ml 0 ml 0 ml Result Diagram: 08/21/1615308/21/16153 Objective Remarks This is an obese middle-aged white female who is sedated. She does open her eyes. She is intubated orally assisting the ventilator. HEENT: Head normocephalic. Pupils reactive and equal. Throat clear Neck: Supple. No bruits, no thyroid enlargement, no lymphadenopathy. Chest: Distant breath sounds. Expiratory wheezes in the upper lung palafox. Decreased breath sounds. Heart: Heart sounds were regular. S1-S2 no murmur, no S3. Abdomen: Soft, benign. No masses, no organomegaly or tenderness. Bowel sounds are active. Extremities: Mild edema . Reflexes are not elicited.Moves feet She is sedated. Assessment and Plan Assessment and Plan IMPRESSION 1. Acute hypercapnic respiratory failure. 2. Pulmonary edema. 3. Basilar pneumonia 4. Obstructive sleep apnea syndrome 5. Hypertension 6. Hypothyroidism. 7. Obesity. Plan : 1. Cont Antibiotics. 2. Wean FIo2 to keep sat >92. 3. Nebs qid , duoneb. 4. Continue Prone bed 5. Chest X ray ,BMP, CBC in am. 6. Trach suction and lavage. 7. Tube feeds at 50 CC 8. Keep sedated. 9. Cont solumedrol to 40 mg q8h. Abimael Beck MD Aug 21, 2016 12:50
[2016-08-21] MEDS: PRAVASTATIN SOD 20 MG TAB PO SCH (20:04)
[2016-08-21] MEDS: AZITHROMYCIN INJ 500 MG in SODIUM CHLOR 0.9% 250 ML INJ 250 ML IV SCH (23:01)
[2016-08-22] VITALS (18 sets, daily range): BP systolic 106–146; BP diastolic 58–80; PULSE 61–87; RESP 20; TEMP 97.2–99.8; O2SAT 91–96
[2016-08-22] MEDS: fentaNYL DRIP 250 ML IV SCH ×3 (03:06→19:27)
[2016-08-22] MEDS: PROPOFOL 1000 MG/100 ML INJ 100 ML IV SCH ×6 (03:06→19:26)
[2016-08-22] MEDS: CISATRACURIUM INJ 100 MG in SODIUM CHLOR 0.9% 250 ML INJ 240 ML IV SCH ×2 (03:06→17:17)
[2016-08-22 03:32] LABS: AUTOMATED NEUTROPHIL # 5.9 TH/MM3 (1.8-7.7); BASOPHIL % 0.4 % (0.0-2.0); HEMATOCRIT 34.6 % (35.0-46.0); HEMO FLAGS DIFF FINAL; LYMPHOCYTE # 0.5 TH/MM3 (1.0-4.8); MEAN CELL VOLUME 87.2 FL (80.0-100.0); MEAN CORPUSCULAR HEMOGLOBIN 28.4 PG (27.0-34.0); MEAN CORPUSCULAR HGB CONC 32.6 % (32.0-36.0); MONO % 9.4 % (0.0-8.0); NEUT % 83.2 % (16.0-70.0); PLATELET COUNT 398 TH/MM3 (150-450); RED BLOOD COUNT 3.97 MIL/MM3 (4.00-5.30); RED CELL DISTRIBUTION WIDTH 16.7 % (11.6-17.2); WHITE BLOOD COUNT 7.1 TH/MM3 (4.0-11.0)
[2016-08-22] MEDS: RESP: ALBUTEROL 2.5 MG/IPRATROPIUM 0.5 MG NEB (SCH) NEB ×6 (03:43→23:15)
[2016-08-22] MEDS: RESP: ACETYLCYSTEINE 10% 30 ML NEB NEB SCH ×3 (03:43→16:26)
[2016-08-22 03:51] LABS: ALT (GPT) 86 U/L (10-53); ANION GAP 8 MEQ/L (5-15); AST (GOT) 29 U/L (15-37); BICARBONATE 31.2 MEQ/L (21.0-32.0); BLOOD UREA NITROGEN 27 MG/DL (7-18); CHLORIDE 103 MEQ/L (98-107); GLOMERULAR FILTRATION RATE 131 ML/MIN (>89); MAGNESIUM 2.6 MG/DL (1.5-2.5); POTASSIUM 4.4 MEQ/L (3.5-5.1); SODIUM (NA) 142 MEQ/L (136-145)
[2016-08-22 03:54] LABS: ALKALINE PHOSPHATASE 75 U/L (45-117); TOTAL BILIRUBIN ADULT 0.3 MG/DL (0.2-1.0)
[2016-08-22] MEDS: INSULIN NovoLIN REGULAR SUPPLEMENTAL SCALE SQ SCH ×4 (04:00→22:00)
[2016-08-22] MEDS: CHLORHEXIDINE GLUCONATE 2 % 1 PACK (2 CLOTHS) TOP SCH (04:00)
[2016-08-22] MEDS: methylPREDNISolone SOD SUCC 40 MG/1 ML VIAL IV SCH ×2 (05:55→13:09)
[2016-08-22] MEDS: LEVOTHYROXINE SODIUM 200 MCG TAB PO SCH (05:55)
[2016-08-22] MEDS: PIPERACIL-TAZO 4.5 GM PREMIX 100 ML IV SCH ×3 (05:55→17:17)
--- NOTE | 2016-08-22 07:09 | HHI.CCPN ---
Subjective Remarks/Hospital Course 56-year-old morbidly obese female brought in the emergency department in respiratory distress. She was intubated by ER attending. She has been sick for about a week with symptoms consistent with UTI. She's had fevers and chills. She's been short of breath. She's had fatigue. She has had a cough and chest pain with coughing. The family reports that she's been delirious for the last 3 days. 08/15 Patient is sedated with Diprivan, Versed, Fentanyl and intubated. CTA chest showed no PE multifocal consolidation greatest in RLL. Tmax 100.6 08/16 Patient is sedated with Diprivan and Fentanyl. Afebrile. CXR this morning showed increase consolidation. 08/17 Patient remains sedated and intubated. T:100.4 On PRVC/AC RR 18, Tv 500, IT :1.0 PEEP:10, FIO2 75% 08/18 Remains sedated and intubated. Afebrile. CXR this morning unchanged bibasilar infiltrates and effusions. 08/19 Patient was placed on rotoprone bed last night for proning sedated with Diprivan, Versed and Fentnayl in addition she is on Nimbex. On PRVC/AC RR 20, TV 400, IT:1.1, PEEP:14 and FIO2 80%. Afebrile. 08/20 Patient remains sedated and intubated. Remains on PRVC/AC mode with improvements in her oxygenation on FIO2 50% from 80% yesterday and PEEP:12. 08/21 Patient remains sedated and intubated. On PRVC/AC mode with RR 20, TV 400, IT:1.1, PEEP: 12 and FIO2 50%. Afebrile. 08/22 No acute events overnight. Remains sedated, intubated and on Nimbex.. T: 99.8. On PRVC mode with PEP: 12, FIO2 50%. CXR from yesterday showed better aeration, RLL infiltrate unchanged. Objective Vital Signs Date Time Temp Pulse Resp B/P Pulse Ox O2 Delivery O2 Flow Rate FiO2 08/22/16 04:00 64 08/22/16 04:00 94 50 08/22/16 00:00 99.8 20 106/58 Intake and Output 308/21/16 08/22/16 08:00 16:00 00:00 Intake Total 1295 ml 1427 ml 1674 ml Output Total 500 ml 875 ml 750.0 ml Balance 795 ml 552 ml 924.0 ml Result Diagram: 08/22/16 0310 08/22/16 0310 Other Results Laboratory Tests Test 08/21/16 08/22/16 10:20 03:10 Blood Gas Puncture Site ART LINE Blood Gas Patient Temperature 98.6 Blood Gas HCO3 32 mmol/L Blood Gas Base Excess 7.0 mmol/L Blood Gas Oxygen Saturation 93 % Arterial Blood pH 7.38 Arterial Blood Partial 55 mmHg Pressure CO2 Arterial Blood Partial 81 mmHg Pressure O2 Arterial Blood Oxygen Content 14.5 Vol % Arterial Blood 1.3 % Carboxyhemoglobin Arterial Blood Methemoglobin 1.4 % Blood Gas Hemoglobin 11.1 G/DL Oxygen Delivery Device VENTILATOR Blood Gas Ventilator Setting PRVC/AC 400/20 Blood Gas Inspired Oxygen 45 % White Blood Count 7.1 TH/MM3 Red Blood Count 3.97 MIL/MM3 Hemoglobin 11.3 GM/DL Hematocrit 34.6 % Mean Corpuscular Volume 87.2 FL Mean Corpuscular Hemoglobin 28.4 PG Mean Corpuscular Hemoglobin 32.6 % Concent Red Cell Distribution Width 16.7 % Platelet Count 398 TH/MM3 Mean Platelet Volume 8.6 FL Neutrophils (%) (Auto) 83.2 % Lymphocytes (%) (Auto) 7.0 % Monocytes (%) (Auto) 9.4 % Eosinophils (%) (Auto) 0.0 % Basophils (%) (Auto) 0.4 % Neutrophils # (Auto) 5.9 TH/MM3 Lymphocytes # (Auto) 0.5 TH/MM3 Monocytes # (Auto) 0.7 TH/MM3 Eosinophils # (Auto) 0.0 TH/MM3 Basophils # (Auto) 0.0 TH/MM3 CBC Comment DIFF FINAL Differential Comment Sodium Level 142 MEQ/L Potassium Level 4.4 MEQ/L Chloride Level 103 MEQ/L Carbon Dioxide Level 31.2 MEQ/L Anion Gap 8 MEQ/L Blood Urea Nitrogen 27 MG/DL Creatinine 0.49 MG/DL Estimat Glomerular Filtration 131 ML/MIN Rate Random Glucose 158 MG/DL Calcium Level 8.3 MG/DL Phosphorus Level 2.8 MG/DL Magnesium Level 2.6 MG/DL Total Bilirubin 0.3 MG/DL Aspartate Amino Transf 29 U/L (AST/SGOT) Alanine Aminotransferase 86 U/L (ALT/SGPT) Alkaline Phosphatase 75 U/L Total Protein 6.7 GM/DL Albumin 2.2 GM/DL Imaging Last Impressions Chest X-Ray 08/21/16 0000 Signed Impressions: Service Date/Time: Sunday, August 21, 2016 07:23 - CONCLUSION: Better aeration from the prior study. Right lower lobe infiltrate is unchanged. Taco Haas Jr., MD Liver Ultrasound 08/15/16 0000 Signed Impressions: Service Date/Time: Monday, August 15, 2016 15:45 - CONCLUSION: Fatty liver and cholelithiasis. Common bile duct is dilated and common bile duct stone is not excluded. Danyel Escalante MD CT Angiography 08/15/16 0000 Signed Impressions: Service Date/Time: Monday, August 15, 2016 02:33 - CONCLUSION: 1. No evidence for pulmonary embolism. 2. Multifocal consolidation greatest in the right lower lobe and associated adenopathy. Terry Estrada MD Objective Remarks GENERAL: Patient is intubated and sedated SKIN: Warm and dry. HEAD: Normocephalic. EYES: No scleral icterus. No injection or drainage. NECK: Supple, trachea midline. No JVD or lymphadenopathy. CARDIOVASCULAR: Regular rate and rhythm without murmurs, gallops, or rubs. RESPIRATORY: Breath sounds equal bilaterally. No accessory muscle use. GASTROINTESTINAL: Abdomen soft, non-tender, nondistended. MUSCULOSKELETAL: No cyanosis, or edema. Neuro: Sedated A/P Problem List: (1) CHF (congestive heart failure) ICD Code: I50.9 Status: Acute (2) Respiratory failure ICD Code: J96.90 Status: Acute (3) Pneumonia ICD Code: J18.9 Status: Acute Assessment and Plan 1)Acute hypercapnic and hypoxemic resp failure -ARDS 2)Pneumonia community-acquired 3)Elevated LFT 4)Hypokalemia 5)Hypothyroidism 6)Dyslipidemia 7)Mild elevated trop likely 2nd resp failure 8)Morbid obesity Plan Neuro: On Diprivan, Fentanyl and versed infusions for sedation in addition she is on neuromuscular blockade ( Nimbex) Not a candidate for sedation vacation yet as she is on rotoprone bed. Pulm: On PRVC/AC RR 20, TV 400, PEEP 12, IT: 1.1 and FIO2 50%. Decrease FIO2 as tiki. Continue with vent support keep sat >92% Bronchodilators, solumederol 60mg Q8 ICU vent bundle. Pulm is following- Dr. Beck Continue with pronation. CXR yesterday showed better aeration and RLL infiltrate unchanged. CV: Monitor HR and BP keep MAP>65mmg Echo showed EG 65-70% : Monitor renal function, I/O's. electrolytes replacement per protocol. Diurese with Bumex 1mg x1 GI: Monitor LFT's ( trending down), on Protonix 40mg daily for GI prophylaxis US liver: Fatty liver and cholelithiasis. On TF Glucerna 1.5 @ 45ml/hr ID: Continue with abx ( Zosyn) d/c Zithromax has been on it since 08/15. monitor for signs of infections( Fever, WBC). Follow up on blood and sputum cx- NGTD strep pneumonia and Legionella urinary Ag negative Heme: Monitor CBC Endo: on SSI ( medium scale) for glycemic control On Synthroid 200mcg daily. TSH 1.37 GI prophylaxis- Protonix 40mg daily DVT prophylaxis- On Heparin SQ Lines: Right IJ CVP, right rad A-line placed 08/18 CCT 30 mins Problem Qualifiers (1) CHF (congestive heart failure): Qualified Code: I50.9 - Acute congestive heart failure, unspecified congestive heart failure type (2) Respiratory failure: Qualified Code: J96.02 - Acute respiratory failure with hypercapnia (3) Pneumonia: Qualified Code: J18.9 - Pneumonia of both lungs due to infectious organism, unspecified part of lung Ute Santamaria MD Aug 22, 2016 07:09
[2016-08-22] MEDS ORDERED: BUMETANIDE INJ 1 MG/4 ML VIAL IV PUSH ONE (07:15)
[2016-08-22] MEDS: MIDAZOLAM 100 MG/100 ML INJ 100 ML IV SCH ×2 (07:35→15:52)
[2016-08-22] MEDS: ARTIFICIAL TEARS OPTH SOLN 15 ML BTL EACH EYE SCH ×3 (08:16→17:17)
[2016-08-22] MEDS: BENEPROTEIN POWDER 1 PACK G-TUBE SCH ×3 (08:16→17:17)
[2016-08-22] MEDS: HEPARIN SODIUM - SQ 10,000 UNITS/ML VIAL SQ SCH ×2 (08:16→15:52)
[2016-08-22] MEDS: PANTOPRAZOLE SODIUM 40 MG VIAL IV PUSH SCH (08:16)
[2016-08-22] MEDS: SODIUM CHLORIDE 0.9% FLUSH 10 ML FLUSH IV FLUSH SCH ×2 (08:17→19:26)
[2016-08-22] MEDS: DOCUSATE SODIUM 100 MG/10 ML UDC G-TUBE SCH ×2 (10:15→22:22)
[2016-08-22] MEDS: PRAVASTATIN SOD 20 MG TAB PO SCH (19:26)
--- NOTE | 2016-08-22 19:50 | HHI.PR ---
Subjective Remarks Sedated on the vent . FIO2 at 50 %. She is on a prone bed. CXR stable. no fever. Objective Vital Signs Date Time Temp Pulse Resp B/P Pulse Ox O2 Delivery O2 Flow Rate FiO2 08/22/16 18:00 71 08/22/16 16:59 92 45 08/22/16 16:00 98.5 64 20 146/80 91 109/67 08/22/16 16:00 45 08/22/16 16:00 64 08/22/16 14:00 69 08/22/16 12:23 94 50 08/22/16 12:00 87 08/22/16 12:00 97.2 87 20 121/62 93 114/69 08/22/16 12:00 50 08/22/16 10:00 66 08/22/16 08:00 60 08/22/16 08:00 67 08/22/16 08:00 97.8 67 20 135/72 92 127/72 08/22/16 07:45 95 50 08/22/16 04:00 64 08/22/16 04:00 94 50 08/22/16 04:00 60 08/22/16 02:20 96 50 08/22/16 02:00 61 08/22/16 02:00 50 08/22/16 01:06 94 60 08/22/16 01:06 94 50 08/22/16 00:00 64 08/22/16 00:00 99.8 69 20 106/58 93 08/22/16 00:00 60 08/21/16 22:08 94 50 08/21/16 22:00 63 08/21/16 20:00 50 08/21/16 20:00 99.6 63 20 103/58 92 08/21/16 20:00 60 I/O 08/21/16 08/21/16 08/21/16 08/22/16 08/22/16 08/22/16 07:00 15:00 23:00 07:00 15:00 23:00 Intake Total 1295 ml 1427 ml 1674 ml 1290 ml 1950 ml Output Total 500 ml 875 ml 750 ml 700 ml 2150 ml Balance 795 ml 552 ml 924 ml 590 ml -200 ml Intake Oral 0 ml 0 ml IV Total 1062 ml 1051 ml 1172 ml 848 ml 1532 ml Tube Feeding 173 ml 316 ml 352 ml 292 ml 318 ml Tube Irrigant 60 ml 100 ml Other 60 ml 150 ml 150 ml Output Urine Total 500 ml 725 ml 650 ml 600 ml 1950 ml Stool Total 0 ml 150 ml 100 ml 100 ml 200 ml Gastric Drainage Total 0 ml Tube Feeding Residual Discard 0 ml 0 ml Result Diagram: 08/22/1630908/22/16309 Objective Remarks This is an obese middle-aged white female who is sedated. She is intubated orally assisting the ventilator. HEENT: Head normocephalic. Pupils reactive and equal. Throat clear Neck: Supple. No bruits, no thyroid enlargement, no lymphadenopathy. Chest: Decreased breath sounds. Heart: Heart sounds were regular. S1-S2 no murmur, no S3. Abdomen: Soft, benign. No masses, no organomegaly or tenderness. Bowel sounds are active. Extremities: Mild edema . Reflexes are not elicited. Moves feet She is sedated. Assessment and Plan Assessment and Plan IMPRESSION 1. Acute hypercapnic respiratory failure. 2. Pulmonary edema. 3. Basilar pneumonia 4. Obstructive sleep apnea syndrome 5. Hypertension 6. Hypothyroidism. 7. Obesity. Plan : 1. Cont Antibiotics. 2. Wean FIo2 to keep sat >92. 3. Nebs qid , duoneb. 4. Continue Prone bed 10 hrs and supine for 2 hrs. every shift. 5. CBC,BMP. 6. Trach suction and lavage. 7. Tube feeds at 50 CC 8. Keep sedated. 9. solumedrol to 40 mg q12h. Abimael Beck MD Aug 22, 2016 19:50
[2016-08-23] VITALS (21 sets, daily range): BP systolic 94–143; BP diastolic 57–78; PULSE 68–87; RESP 20; TEMP 99.3–100.3; O2SAT 88–96
[2016-08-23] MEDS: HEPARIN SODIUM - SQ 10,000 UNITS/ML VIAL SQ SCH ×4 (00:32→23:18)
[2016-08-23] MEDS: PIPERACIL-TAZO 4.5 GM PREMIX 100 ML IV SCH ×5 (00:32→23:18)
[2016-08-23] MEDS: PROPOFOL 1000 MG/100 ML INJ 100 ML IV SCH ×7 (00:57→23:19)
[2016-08-23] MEDS: MIDAZOLAM 100 MG/100 ML INJ 100 ML IV SCH ×3 (00:58→19:51)
[2016-08-23] MEDS: RESP: ALBUTEROL 2.5 MG/IPRATROPIUM 0.5 MG NEB (SCH) NEB (02:40)
[2016-08-23] MEDS: CHLORHEXIDINE GLUCONATE 2 % 1 PACK (2 CLOTHS) TOP SCH (04:00)
[2016-08-23] MEDS: INSULIN NovoLIN REGULAR SUPPLEMENTAL SCALE SQ SCH ×4 (04:00→21:38)
[2016-08-23] MEDS: LEVOTHYROXINE SODIUM 200 MCG TAB PO SCH (05:15)
[2016-08-23 06:16] LABS: AUTOMATED NEUTROPHIL # 6.5 TH/MM3 (1.8-7.7); BASOPHIL % 0.1 % (0.0-2.0); EOSINOPHIL % 0.5 % (0.0-4.0); HEMO FLAGS DIFF FINAL; LYMPH % 11.4 % (9.0-44.0); LYMPHOCYTE # 0.9 TH/MM3 (1.0-4.8); MEAN CELL VOLUME 89.2 FL (80.0-100.0); MEAN CORPUSCULAR HEMOGLOBIN 29.8 PG (27.0-34.0); MEAN CORPUSCULAR HGB CONC 33.4 % (32.0-36.0); MONO % 10.3 % (0.0-8.0); NEUT % 77.7 % (16.0-70.0); PLATELET COUNT 393 TH/MM3 (150-450); RED BLOOD COUNT 3.81 MIL/MM3 (4.00-5.30); RED CELL DISTRIBUTION WIDTH 16.5 % (11.6-17.2); WHITE BLOOD COUNT 8.3 TH/MM3 (4.0-11.0)
--- NOTE | 2016-08-23 06:31 | RADRPT ---
EXAM DATE/TIME: 08/23/2016 04:37 [facility] COMPARISON: CHEST SINGLE AP, August 21, 2016, 7:23. INDICATIONS : Shortness of breath. MEDICAL HISTORY : Hypercholesterolemia. Hypertension. Hypothyroidism. Sleep apnea. SURGICAL HISTORY : Tubal ligation. Hysterectomy ENCOUNTER: Subsequent ACUITY: 4 - 6 days PAIN SCORE: Non-responsive. LOCATION: Bilateral chest FINDINGS: A single view of the chest demonstrates endotracheal tube in satisfactory position. NG enters stomach . Right central line in superior vena cava. Again seen is right basilar airspace disease. Left perihi lar airspace disease slightly increased from August 21.. CONCLUSION: 1. Left perihilar airspace disease slightly increased from August 21. Right basilar consolidation pers ists. Endotracheal tube, nasogastric tube and right central line unchanged. Rony Malloy MD on August 23, 2016 at 6:29 Board Certified Radiologist. This report was verified electronically.
[2016-08-23 06:41] LABS: ALKALINE PHOSPHATASE 76 U/L (45-117); ALT (GPT) 70 U/L (10-53); ANION GAP 5 MEQ/L (5-15); AST (GOT) 22 U/L (15-37); BICARBONATE 34.9 MEQ/L (21.0-32.0); BLOOD UREA NITROGEN 31 MG/DL (7-18); CHLORIDE 100 MEQ/L (98-107); GLOMERULAR FILTRATION RATE 131 ML/MIN (>89); MAGNESIUM 2.5 MG/DL (1.5-2.5); POTASSIUM 3.9 MEQ/L (3.5-5.1); SODIUM (NA) 140 MEQ/L (136-145); TOTAL BILIRUBIN ADULT 0.3 MG/DL (0.2-1.0)
[2016-08-23] MEDS: ARTIFICIAL TEARS OPTH SOLN 15 ML BTL EACH EYE SCH ×3 (08:41→17:22)
[2016-08-23] MEDS: BENEPROTEIN POWDER 1 PACK G-TUBE SCH ×3 (08:41→17:22)
[2016-08-23] MEDS: CISATRACURIUM INJ 100 MG in SODIUM CHLOR 0.9% 250 ML INJ 240 ML IV SCH (08:41)
[2016-08-23] MEDS: SODIUM CHLORIDE 0.9% FLUSH 10 ML FLUSH IV FLUSH SCH ×2 (08:42→19:49)
[2016-08-23] MEDS: fentaNYL DRIP 250 ML IV SCH ×2 (08:42→17:23)
[2016-08-23] MEDS: PANTOPRAZOLE SODIUM 40 MG VIAL IV PUSH SCH (08:42)
[2016-08-23] MEDS: methylPREDNISolone SOD SUCC 40 MG/1 ML VIAL IV SCH ×2 (08:44→19:49)
[2016-08-23] MEDS: ACETAMINOPHEN 325 MG TAB PO PRN (09:16)
--- NOTE | 2016-08-23 10:20 | HHI.CCPN ---
Subjective Remarks/Hospital Course 56-year-old morbidly obese female brought in the emergency department in respiratory distress. She was intubated by ER attending. She has been sick for about a week with symptoms consistent with UTI. She's had fevers and chills. She's been short of breath. She's had fatigue. She has had a cough and chest pain with coughing. The family reports that she's been delirious for the last 3 days. 08/15 Patient is sedated with Diprivan, Versed, Fentanyl and intubated. CTA chest showed no PE multifocal consolidation greatest in RLL. Tmax 100.6 08/16 Patient is sedated with Diprivan and Fentanyl. Afebrile. CXR this morning showed increase consolidation. 08/17 Patient remains sedated and intubated. T:100.4 On PRVC/AC RR 18, Tv 500, IT :1.0 PEEP:10, FIO2 75% 08/18 Remains sedated and intubated. Afebrile. CXR this morning unchanged bibasilar infiltrates and effusions. 08/19 Patient was placed on rotoprone bed last night for proning sedated with Diprivan, Versed and Fentnayl in addition she is on Nimbex. On PRVC/AC RR 20, TV 400, IT:1.1, PEEP:14 and FIO2 80%. Afebrile. 08/20 Patient remains sedated and intubated. Remains on PRVC/AC mode with improvements in her oxygenation on FIO2 50% from 80% yesterday and PEEP:12. 08/21 Patient remains sedated and intubated. On PRVC/AC mode with RR 20, TV 400, IT:1.1, PEEP: 12 and FIO2 50%. Afebrile. 08/22 No acute events overnight. Remains sedated, intubated and on Nimbex.. T: 99.8. On PRVC mode with PEP: 12, FIO2 50%. CXR from yesterday showed better aeration, RLL infiltrate unchanged. 08/23 Chest x-ray worsening. Methylprednisolone taper to twice a day by pulmonary. The patient's FiO2 was found to be 100% this a.m., will continue to wean. Objective Vital Signs Date Time Temp Pulse Resp B/P Pulse Ox O2 Delivery O2 Flow Rate FiO2 08/23/16 10:00 77 08/23/16 08:13 93 60 08/23/16 08:00 100.3 20 143/78 94/57 Intake and Output 08/22/16 08/22/16 08/23/16 08:00 16:00 00:00 Intake Total 1290 ml 1950 ml 1332 ml Output Total 700 ml 2150 ml 825 ml Balance 590 ml -200 ml 507 ml Result Diagram: 08/23/16 0500 08/23/16 0500 Imaging Last Impressions Chest X-Ray 08/21/16 0000 Signed Impressions: Service Date/Time: Sunday, August 21, 2016 07:23 - CONCLUSION: Better aeration from the prior study. Right lower lobe infiltrate is unchanged. Taco Haas Jr., MD Liver Ultrasound 08/15/16 0000 Signed Impressions: Service Date/Time: Monday, August 15, 2016 15:45 - CONCLUSION: Fatty liver and cholelithiasis. Common bile duct is dilated and common bile duct stone is not excluded. Danyel Escalante MD CT Angiography 08/15/16 0000 Signed Impressions: Service Date/Time: Monday, August 15, 2016 02:33 - CONCLUSION: 1. No evidence for pulmonary embolism. 2. Multifocal consolidation greatest in the right lower lobe and associated adenopathy. Terry Estrada MD Objective Remarks GENERAL: Patient is intubated and sedated, on paralytics Rota prone SKIN: Warm and dry. HEAD: Normocephalic. EYES: No scleral icterus. No injection or drainage. NECK: Supple, trachea midline. No JVD or lymphadenopathy. CARDIOVASCULAR: Regular rate and rhythm without murmurs, gallops, or rubs. RESPIRATORY: Breath sounds equal bilaterally. No accessory muscle use. GASTROINTESTINAL: Abdomen soft, non-tender, nondistended. MUSCULOSKELETAL: No cyanosis, or edema. Neuro: Sedated Urinary Catheter: Yes Miller insert reason: Prolonged Immobilization A/P Problem List: (1) CHF (congestive heart failure) ICD Code: I50.9 Status: Acute (2) Respiratory failure ICD Code: J96.90 Status: Acute (3) Pneumonia ICD Code: J18.9 Status: Acute Assessment and Plan 1)Acute hypercapnic and hypoxemic resp failure -ARDS 2)Pneumonia community-acquired 3)Elevated LFT 4)Hypokalemia 5)Hypothyroidism 6)Dyslipidemia 7)Mild elevated trop likely 2nd resp failure 8)Morbid obesity Plan Neuro: On , Fentanyl and versed infusions for sedation in addition she is on neuromuscular blockade ( Nimbex) Not a candidate for sedation vacation yet as she is on rotoprone bed. Pulm: On PRVC/AC RR 20, TV 400, PEEP 12, IT: 1.1 and FIO2 1.0%. Decrease FIO2 as tiki. Continue with vent support keep sat >92% Bronchodilators, solumederol 60mg Q8 ICU vent bundle. Pulm is following- Dr. Beck Continue with pronation. CXR today revealed worsening aeration and RLL infiltrate unchanged. CV: Monitor HR and BP keep MAP>65mmg Echo showed EG 65-70% : Monitor renal function, I/O's. electrolytes replacement per protocol. Diurese with Bumex 1mg x1 GI: Monitor LFT's ( trending down), on Protonix 40mg daily for GI prophylaxis US liver: Fatty liver and cholelithiasis. On TF Glucerna 1.5 @ 45ml/hr, minimal residual ID: Continue with abx ( Zosyn) d/c Zithromax has been on it since 08/15. monitor for signs of infections( Fever, WBC). Follow up on blood and sputum cx- NGTD strep pneumonia and Legionella urinary Ag negative Heme: Monitor CBC Endo: on SSI ( medium scale) for glycemic control On Synthroid 200mcg daily. TSH 1.37 GI prophylaxis- Protonix 40mg daily DVT prophylaxis- On Heparin SQ Lines: Right IJ CVP, right rad A-line placed 08/18 my billing statement This patient remains critically ill with one or more organ systems which are or may become a threat to life. I have spent in excess of 39 minutes discontinuously in the care and management of this patient. This time is exclusive of procedures, and includes, but is not limited to, evaluation of the patient, review of the medical record, discussions with family, consultants, nursing staff, or respiratory therapy, and documentation in the medical record. Physician Noemi Payton Problem Qualifiers (1) CHF (congestive heart failure): Qualified Code: I50.9 - Acute congestive heart failure, unspecified congestive heart failure type (2) Respiratory failure: Qualified Code: J96.02 - Acute respiratory failure with hypercapnia (3) Pneumonia: Qualified Code: J18.9 - Pneumonia of both lungs due to infectious organism, unspecified part of lung Noemi aPyton MD Aug 23, 2016 10:20
[2016-08-23 10:42] LABS: BLOOD GAS VENOUS BASE EXCESS 7.3 mmol/L (-2-2); BLOOD GAS VENOUS HCO3 33 mmol/L (22-26); BLOOD GAS VENOUS O2 CONTENT 11.8 Vol % (9.0-17.0); BLOOD GAS VENOUS O2 HGB SAT 75 % (70-76); BLOOD GAS VENOUS PCO2 62 mmHg (44-48); BLOOD GAS VENOUS PO2 46 mmHg (35-40); BLOOD GAS VENOUS pH 7.34 (7.360-7.400); TEMP CORR TO 98.6
[2016-08-23 10:43] LABS: CRITICAL VALUE YES; OXYGEN DEVICE VENTILATOR
[2016-08-23 10:44] LABS: DRAW SITE RN; FIO2 60 %; STAT NO; VENT SETTINGS PRVC/AC
[2016-08-23] MEDS: DOCUSATE SODIUM 100 MG/10 ML UDC G-TUBE SCH ×2 (10:50→21:38)
[2016-08-23] MEDS: BUMETANIDE INJ 1 MG/4 ML VIAL IV PUSH SCH ×2 (10:50→19:50)
[2016-08-23] MEDS: RESP: ALBUTEROL 2.5 MG/IPRATROPIUM 0.5 MG NEB (PRN) INH (12:26)
--- NOTE | 2016-08-23 12:52 | HHI.PR ---
Subjective Remarks Sedated on the vent . FIO2 at 55 %. She is on a prone bed. CXR worse.. no fever. Objective Vital Signs Date Time Temp Pulse Resp B/P Pulse Ox O2 Delivery O2 Flow Rate FiO2 08/23/16 12:25 93 55 08/23/16 12:00 55 08/23/16 12:00 99.3 77 20 121/62 90 103/59 08/23/16 12:00 79 08/23/16 10:48 92 55 08/23/16 10:00 77 08/23/16 08:13 93 60 08/23/16 08:00 100.3 75 20 143/78 92 94/57 08/23/16 08:00 60 08/23/16 08:00 75 08/23/16 06:00 81 08/23/16 04:10 92 60 08/23/16 04:00 45 08/23/16 04:00 99.8 81 20 127/62 90 105/66 08/23/16 04:00 81 08/23/16 02:40 88 50 08/23/16 02:00 76 08/23/16 01:35 89 45 08/23/16 00:00 45 08/23/16 00:00 75 08/23/16 00:00 99.6 75 20 122/57 90 104/60 08/22/16 22:13 93 45 08/22/16 22:00 69 08/22/16 20:20 92 45 08/22/16 20:00 65 08/22/16 20:00 45 08/22/16 20:00 98.5 65 20 139/79 91 107/69 08/22/16 18:00 71 08/22/16 16:59 92 45 08/22/16 16:00 98.5 64 20 146/80 91 109/67 08/22/16 16:00 45 08/22/16 16:00 64 08/22/16 14:00 69 I/O 08/22/16 08/22/16 08/22/16 08/23/16 08/23/16 08/23/16 07:00 15:00 23:00 07:00 15:00 23:00 Intake Total 1290 ml 1950 ml 1332 ml 1472 ml Output Total 700 ml 2150 ml 825 ml 400 ml Balance 590 ml -200 ml 507 ml 1072 ml Intake Oral 0 ml 0 ml IV Total 848 ml 1532 ml 924 ml 1083 ml Tube Feeding 292 ml 318 ml 348 ml 329 ml Tube Irrigant 100 ml 60 ml 60 ml Other 150 ml Output Urine Total 600 ml 1950 ml 675 ml 400 ml Stool Total 100 ml 200 ml 150 ml 0 ml Gastric Drainage Total 0 ml 0 ml Tube Feeding Residual Discard 0 ml Result Diagram: 08/23/16 0500 08/23/16 0500 Objective Remarks This is an obese middle-aged white female who is sedated. She is intubated orally assisting the ventilator. HEENT: Head normocephalic. Pupils reactive and equal. Throat clear Neck: Supple. No bruits, no thyroid enlargement, no lymphadenopathy. Chest: Decreased breath sounds. Heart: Heart sounds were regular. S1-S2 no murmur, no S3. Abdomen: Soft, benign. No masses, no organomegaly or tenderness. Bowel sounds are active. Extremities: Mild edema . Reflexes are not elicited. She is sedated. Assessment and Plan Assessment and Plan IMPRESSION 1. Acute hypercapnic respiratory failure. 2. Pulmonary edema. 3. Basilar pneumonia 4. Obstructive sleep apnea syndrome 5. Hypertension 6. Hypothyroidism. 7. Obesity. Plan : 1. Cont Antibiotics. 2. Wean FIo2 to keep sat >92. 3. Nebs qid , duoneb. 4. Continue Prone bed 10 hrs and supine for 2 hrs. every shift. 5. CBC,BMP in am. 6. Trach suction and lavage. 7. Tube feeds at 50 CC 8. Keep sedated. 9. solumedrol to 40 mg q12h. Abimael Beck MD Aug 23, 2016 12:52
[2016-08-23] MEDS: PRAVASTATIN SOD 20 MG TAB PO SCH (19:50)
[2016-08-24] VITALS (18 sets, daily range): BP systolic 94–157; BP diastolic 45–87; PULSE 56–74; RESP 20; TEMP 98.7–100.7; O2SAT 91–96
[2016-08-24] MEDS: CISATRACURIUM INJ 100 MG in SODIUM CHLOR 0.9% 250 ML INJ 240 ML IV SCH ×3 (01:32→18:16)
[2016-08-24] MEDS: CHLORHEXIDINE GLUCONATE 2 % 1 PACK (2 CLOTHS) TOP SCH (02:26)
[2016-08-24] MEDS: PROPOFOL 1000 MG/100 ML INJ 100 ML IV SCH ×7 (02:38→21:44)
[2016-08-24] MEDS: INSULIN NovoLIN REGULAR SUPPLEMENTAL SCALE SQ SCH ×4 (03:59→21:28)
[2016-08-24 04:06] LABS: MEAN CELL VOLUME 86.8 FL (80.0-100.0); MEAN CORPUSCULAR HEMOGLOBIN 28.7 PG (27.0-34.0); MEAN CORPUSCULAR HGB CONC 33.1 % (32.0-36.0); PLATELET COUNT 387 TH/MM3 (150-450); RED BLOOD COUNT 3.92 MIL/MM3 (4.00-5.30); RED CELL DISTRIBUTION WIDTH 16.5 % (11.6-17.2); REVIEW FLAG FINAL; WHITE BLOOD COUNT 7.3 TH/MM3 (4.0-11.0)
[2016-08-24 04:35] LABS: BICARBONATE 36.7 MEQ/L (21.0-32.0); MAGNESIUM 2.6 MG/DL (1.5-2.5); POTASSIUM 4.1 MEQ/L (3.5-5.1)
[2016-08-24] MEDS: PIPERACIL-TAZO 4.5 GM PREMIX 100 ML IV SCH ×3 (04:51→17:45)
[2016-08-24] MEDS: LEVOTHYROXINE SODIUM 200 MCG TAB PO SCH (04:51)
[2016-08-24] MEDS: fentaNYL DRIP 250 ML IV SCH ×2 (05:05→14:12)
--- NOTE | 2016-08-24 05:48 | RADRPT ---
EXAM DATE/TIME: 08/24/2016 03:33 [facility] COMPARISON: CHEST SINGLE AP, August 23, 2016, 4:37. INDICATIONS : Shortness of breath, possible pulmonary disease. MEDICAL HISTORY : Hypercholesterolemia. Hypertension Hypothyroidism. Sleep apnea SURGICAL HISTORY : Tubal ligation. Hysterectomy. ENCOUNTER: Subsequent ACUITY: 4 - 6 days PAIN SCORE: Non-responsive. LOCATION: Bilateral chest FINDINGS: A single view of the chest demonstrates mild basilar airspace disease. No significant effusion. No pn eumothorax. NG tube tip in stomach. Right central line near cavoatrial junction. CONCLUSION: 1. NG tube in stomach. Bilateral mostly basilar airspace disease similar to August 23. Rony Malloy MD on August 24, 2016 at 5:44 Board Certified Radiologist. This report was verified electronically.
[2016-08-24] MEDS: MIDAZOLAM 100 MG/100 ML INJ 100 ML IV SCH ×2 (06:41→14:12)
[2016-08-24] MEDS: BUMETANIDE INJ 1 MG/4 ML VIAL IV PUSH SCH ×2 (07:35→19:53)
[2016-08-24] MEDS: HEPARIN SODIUM - SQ 10,000 UNITS/ML VIAL SQ SCH ×2 (07:35→16:47)
[2016-08-24] MEDS: methylPREDNISolone SOD SUCC 40 MG/1 ML VIAL IV SCH ×2 (07:35→19:53)
[2016-08-24] MEDS: PANTOPRAZOLE SODIUM 40 MG VIAL IV PUSH SCH (07:35)
[2016-08-24] MEDS: BENEPROTEIN POWDER 1 PACK G-TUBE SCH ×3 (07:36→17:45)
[2016-08-24] MEDS: ARTIFICIAL TEARS OPTH SOLN 15 ML BTL EACH EYE SCH ×3 (07:36→17:45)
[2016-08-24] MEDS: SODIUM CHLORIDE 0.9% FLUSH 10 ML FLUSH IV FLUSH SCH ×2 (07:38→19:53)
--- NOTE | 2016-08-24 08:47 | HHI.CCPN ---
Subjective Remarks/Hospital Course 56-year-old morbidly obese female brought in the emergency department in respiratory distress. She was intubated by ER attending. She has been sick for about a week with symptoms consistent with UTI. She's had fevers and chills. She's been short of breath. She's had fatigue. She has had a cough and chest pain with coughing. The family reports that she's been delirious for the last 3 days. 08/15 Patient is sedated with Diprivan, Versed, Fentanyl and intubated. CTA chest showed no PE multifocal consolidation greatest in RLL. Tmax 100.6 08/16 Patient is sedated with Diprivan and Fentanyl. Afebrile. CXR this morning showed increase consolidation. 08/17 Patient remains sedated and intubated. T:100.4 On PRVC/AC RR 18, Tv 500, IT :1.0 PEEP:10, FIO2 75% 08/18 Remains sedated and intubated. Afebrile. CXR this morning unchanged bibasilar infiltrates and effusions. 08/19 Patient was placed on rotoprone bed last night for proning sedated with Diprivan, Versed and Fentnayl in addition she is on Nimbex. On PRVC/AC RR 20, TV 400, IT:1.1, PEEP:14 and FIO2 80%. Afebrile. 08/20 Patient remains sedated and intubated. Remains on PRVC/AC mode with improvements in her oxygenation on FIO2 50% from 80% yesterday and PEEP:12. 08/21 Patient remains sedated and intubated. On PRVC/AC mode with RR 20, TV 400, IT:1.1, PEEP: 12 and FIO2 50%. Afebrile. 08/22 No acute events overnight. Remains sedated, intubated and on Nimbex.. T: 99.8. On PRVC mode with PEP: 12, FIO2 50%. CXR from yesterday showed better aeration, RLL infiltrate unchanged. 08/23 Chest x-ray worsening. Methylprednisolone taper to twice a day by pulmonary. The patient's FiO2 was found to be 100% this a.m., will continue to wean. 08/24: 1 desat episode yesterday when supine. still remains prone now. no vasopressors. sedated and paralyzed. Objective Vital Signs Date Time Temp Pulse Resp B/P Pulse Ox O2 Delivery O2 Flow Rate FiO2 08/24/16 08:39 93 60 08/24/16 08:00 60 08/24/16 08:00 100.7 20 144/79 105/62 Intake and Output 08/23/16 08/23/16 08/24/16 08:00 16:00 00:00 Intake Total 1472 ml 1347 ml 1545 ml Output Total 400 ml 1275 ml 1700 ml Balance 1072 ml 72 ml -155 ml Result Diagram: 08/24/16 0315 08/24/16 031 Other Results Laboratory Tests Test 08/23/16 10:30 Blood Gas Puncture Site RN Blood Gas Patient Temperature 98.6 Venous Blood pH 7.34 (7.360-7.400) Venous Blood Partial Pressure 62 mmHg (44-48) CO2 Venous Blood Partial Pressure 46 mmHg (35-40) O2 Venous Blood HCO3 33 mmol/L (22-26) Venous Blood Oxygen Saturation 75 % (70-76) Venous Blood Oxygen Content 11.8 Vol % (9.0-17.0) Venous Blood Base Excess 7.3 mmol/L (-2-2) Oxygen Delivery Device VENTILATOR Blood Gas Ventilator Setting PRVC/AC Blood Gas Inspired Oxygen 60 % Imaging Last Impressions Chest X-Ray 08/21/16 0000 Signed Impressions: Service Date/Time: Sunday, August 21, 2016 07:23 - CONCLUSION: Better aeration from the prior study. Right lower lobe infiltrate is unchanged. Taco Haas Jr., MD Liver Ultrasound 08/15/16 0000 Signed Impressions: Service Date/Time: Monday, August 15, 2016 15:45 - CONCLUSION: Fatty liver and cholelithiasis. Common bile duct is dilated and common bile duct stone is not excluded. Danyel Escalante MD CT Angiography 08/15/16 0000 Signed Impressions: Service Date/Time: Monday, August 15, 2016 02:33 - CONCLUSION: 1. No evidence for pulmonary embolism. 2. Multifocal consolidation greatest in the right lower lobe and associated adenopathy. Terry Estrada MD Objective Remarks GENERAL: Patient is intubated and sedated, on paralytics Rota prone SKIN: Warm and dry. HEAD: Normocephalic. EYES: No scleral icterus. No injection or drainage. NECK: trachea midline. morbid obesity prevents accurate assessment of JVD. CARDIOVASCULAR: Regular rate and rhythm without murmurs, gallops, or rubs. RESPIRATORY: Breath sounds equal bilaterally. No accessory muscle use. GASTROINTESTINAL: Abdomen soft, non-tender, nondistended. MUSCULOSKELETAL: No cyanosis, or edema. Neuro: Sedated, paralyzed. RASS -5. A/P Problem List: (1) CHF (congestive heart failure) ICD Code: I50.9 Status: Acute (2) Respiratory failure ICD Code: J96.90 Status: Acute (3) Pneumonia ICD Code: J18.9 Status: Acute Assessment and Plan 1)Acute hypercapnic and hypoxemic resp failure -ARDS 2)Pneumonia community-acquired 3)Elevated LFT 4)Hypokalemia 5)Hypothyroidism 6)Dyslipidemia 7)Mild elevated trop likely 2nd resp failure 8)Morbid obesity Plan Neuro: fentanyl, propofol, versed while paralyzed. will continue nimbex today. RASS goal -5. no sedation vacation. Pulm: On PRVC/AC RR 20, TV 400, PEEP 12, IT: 1.1 and FIO2 0.6%. Decrease FIO2 as tiki. for goal spo2 > 88% Bronchodilators, solumederol 40mg Q12 ICU vent bundle. Pulm is following- Dr. Beck will attempt unproning today to evaluate. unclear if she is ready to be supine or not today. she may need bronch for her persistent atelectasis. add flolan today. CV: Monitor HR and BP keep MAP>65mmg Echo showed EG 65-70% : Monitor renal function, I/O's. electrolytes replacement per protocol. Diurese with Bumex 1mg iv bid GI: Monitor LFT's ( trending down), on Protonix 40mg daily for GI prophylaxis US liver: Fatty liver and cholelithiasis. On TF Glucerna 1.5 @ 45ml/hr, minimal residual ID: today is day 7 of empiric abx. will complete full 7 day course and then d/c after today. if she spikes fever, leukocytosis, will re-culture and broaden abx. Follow up on blood and sputum cx- NGTD strep pneumonia and Legionella urinary Ag negative Heme: Monitor CBC Endo: on SSI ( medium scale) for glycemic control On Synthroid 200mcg daily. TSH 1.37 GI prophylaxis- Protonix 40mg daily DVT prophylaxis- On Heparin SQ Lines: Right IJ CVP, right rad A-line placed 08/18 my billing statement This patient remains critically ill with one or more organ systems which are or may become a threat to life. I have spent in excess of 34 minutes discontinuously in the care and management of this patient. This time is exclusive of procedures, and includes, but is not limited to, evaluation of the patient, review of the medical record, discussions with family, consultants, nursing staff, or respiratory therapy, and documentation in the medical record. Problem Qualifiers (1) CHF (congestive heart failure): Qualified Code: I50.9 - Acute congestive heart failure, unspecified congestive heart failure type (2) Respiratory failure: Qualified Code: J96.02 - Acute respiratory failure with hypercapnia (3) Pneumonia: Qualified Code: J18.9 - Pneumonia of both lungs due to infectious organism, unspecified part of lung Tutu Hoffman MD Aug 24, 2016 08:47 Tutu Hoffman MD Aug 24, 2016 08:47
[2016-08-24] MEDS: EPOPROSTENOL NEB SOLUTION 50 NG/KG/MIN 100 ML NEB SCH ×4 (10:34→18:33)
[2016-08-24] MEDS: RESP: ALBUTEROL 2.5 MG/IPRATROPIUM 0.5 MG NEB (SCH) INH ×4 (11:21→23:33)
[2016-08-24] MEDS: DOCUSATE SODIUM 100 MG/10 ML UDC G-TUBE SCH ×2 (12:07→21:44)
[2016-08-24] MEDS ORDERED: FUROSEMIDE 20 MG/2 ML VIAL IV PUSH ONE (13:45)
--- NOTE | 2016-08-24 18:40 | HHI.PR ---
Subjective Remarks Sedated on the vent . FIO2 at 70 %. She is on a prone bed. CXR worse..Has fever. Objective Vital Signs Date Time Temp Pulse Resp B/P Pulse Ox O2 Delivery O2 Flow Rate FiO2 08/24/16 18:00 58 08/24/16 16:00 56 08/24/16 16:00 60 08/24/16 16:00 98.9 56 20 130/71 92 100/56 08/24/16 15:48 93 55 08/24/16 14:00 56 08/24/16 12:00 60 08/24/16 12:00 74 08/24/16 12:00 100.5 74 20 134/79 91 101/45 08/24/16 11:22 96 60 08/24/16 10:00 63 08/24/16 08:39 93 60 08/24/16 08:00 60 08/24/16 08:00 60 08/24/16 08:00 100.7 60 20 144/79 94 105/62 08/24/16 08:00 105/62 08/24/16 06:00 61 08/24/16 04:06 96 60 08/24/16 04:00 62 08/24/16 04:00 100.3 62 20 140/76 94 110/68 08/24/16 04:00 60 08/24/16 02:00 64 08/24/16 00:00 68 08/24/16 00:00 99.5 68 20 157/87 94 113/67 08/24/16 00:00 60 08/23/16 23:26 94 60 08/23/16 22:00 68 08/23/16 20:00 69 08/23/16 20:00 100.2 69 20 126/63 96 103/60 08/23/16 20:00 60 08/23/16 19:27 95 60 I/O 08/23/16 08/23/16 08/23/16 08/24/16 08/24/16 08/24/16 07:00 15:00 23:00 07:00 15:00 23:00 Intake Total 1472 ml 1347 ml 1545 ml 1367 ml 1869 ml Output Total 400 ml 1275 ml 1700 ml 750 ml 1550 ml Balance 1072 ml 72 ml -155 ml 617 ml 319 ml Intake Oral 0 ml IV Total 1083 ml 1083 ml 1083 ml 990 ml 1280 ml Tube Feeding 329 ml 164 ml 402 ml 277 ml 289 ml Tube Irrigant 60 ml 100 ml Other 60 ml 100 ml 300 ml Output Urine Total 400 ml 1225 ml 1650 ml 700 ml 1550 ml Stool Total 0 ml 50 ml 50 ml 50 ml 0 ml Gastric Drainage Total 0 ml Result Diagram: 08/24/1631408/24/16314 Objective Remarks This is an obese middle-aged white female who is sedated. She is intubated orally . HEENT: Head normocephalic. ET tube in orally Neck: No bruits, no thyroid enlargement, no lymphadenopathy. Chest: Decreased breath sounds. Heart: Heart sounds were regular. S1-S2 no murmur, no S3. Abdomen: Soft, benign. No masses, or tenderness. Bowel sounds are active. Extremities: Mild edema . Neuro : She is sedated. Assessment and Plan Assessment and Plan IMPRESSION 1. Acute hypercapnic respiratory failure. 2. Pulmonary edema. 3. Basilar pneumonia 4. Obstructive sleep apnea syndrome 5. Hypertension 6. Hypothyroidism. 7. Obesity. Plan : 1. Cont Antibiotics. 2. Wean FIo2 to keep sat >92. 3. Nebs qid , duoneb. 4. Continue Prone bed 10 hrs and supine for 2 hrs. every shift. 5. Flolan inhalation 6. Trach suction and lavage. 7. Tube feeds at 50 CC 8. Keep sedated. 9. solumedrol 40 mg q12h. 10. CXR ,BMP in am Abimael Beck MD Aug 24, 2016 18:40
[2016-08-24] MEDS: PRAVASTATIN SOD 20 MG TAB PO SCH (19:54)
[2016-08-25] VITALS (21 sets, daily range): BP systolic 94–148; BP diastolic 58–87; PULSE 56–109; RESP 20; TEMP 98.5–99.7; O2SAT 88–95
[2016-08-25] MEDS: HEPARIN SODIUM - SQ 10,000 UNITS/ML VIAL SQ SCH ×4 (00:01→22:56)
[2016-08-25] MEDS: fentaNYL DRIP 250 ML IV SCH ×3 (00:01→20:52)
[2016-08-25] MEDS: PROPOFOL 1000 MG/100 ML INJ 100 ML IV SCH ×9 (00:01→22:56)
[2016-08-25] MEDS: MIDAZOLAM 100 MG/100 ML INJ 100 ML IV SCH ×2 (00:01→09:41)
[2016-08-25] MEDS: CISATRACURIUM INJ 100 MG in SODIUM CHLOR 0.9% 250 ML INJ 240 ML IV SCH (02:57)
[2016-08-25] MEDS: CHLORHEXIDINE GLUCONATE 2 % 1 PACK (2 CLOTHS) TOP SCH (02:57)
[2016-08-25] MEDS: RESP: ALBUTEROL 2.5 MG/IPRATROPIUM 0.5 MG NEB (SCH) INH ×6 (03:08→23:04)
[2016-08-25] MEDS: INSULIN NovoLIN REGULAR SUPPLEMENTAL SCALE SQ SCH ×4 (04:00→21:09)
[2016-08-25 05:17] LABS: POTASSIUM 4.1 MEQ/L (3.5-5.1)
[2016-08-25 05:20] LABS: HEMATOCRIT 32.2 % (35.0-46.0); MEAN CORPUSCULAR HEMOGLOBIN 30.5 PG (27.0-34.0); MEAN CORPUSCULAR HGB CONC 34.3 % (32.0-36.0); PLATELET COUNT 376 TH/MM3 (150-450); RED BLOOD COUNT 3.62 MIL/MM3 (4.00-5.30); RED CELL DISTRIBUTION WIDTH 16.5 % (11.6-17.2); REVIEW FLAG FINAL; WHITE BLOOD COUNT 6.5 TH/MM3 (4.0-11.0)
[2016-08-25] MEDS: LEVOTHYROXINE SODIUM 200 MCG TAB PO SCH (05:40)
--- NOTE | 2016-08-25 05:56 | RADRPT ---
EXAM DATE/TIME: 08/25/2016 04:06 [facility] COMPARISON: CHEST SINGLE AP, August 24, 2016, 3:33. INDICATIONS : Shortness of breath. MEDICAL HISTORY : Hypertension. Hypercholesterolemia. Sleep apnea. SURGICAL HISTORY : None. ENCOUNTER: Subsequent ACUITY: 1 week PAIN SCORE: Non-responsive. LOCATION: Bilateral chest FINDINGS: Portable AP view of the chest demonstrates a normal-sized cardiac silhouette. ETT, NG tube, and right IJ line remain present. Lungs are underinflated. There is mild opacity at the right lung base and ai rspace consolidation versus atelectasis at the left lung base. No pleural effusion or pneumothorax is visualized. CONCLUSION: Underinflated examination with mild bibasilar opacity representing atelectasis or consolidation. No s ignificant change is appreciated. Dejan Allison MD on August 25, 2016 at 5:54 Board Certified Radiologist. This report was verified electronically.
[2016-08-25] MEDS: BENEPROTEIN POWDER 1 PACK G-TUBE SCH ×3 (08:19→17:31)
[2016-08-25] MEDS: ARTIFICIAL TEARS OPTH SOLN 15 ML BTL EACH EYE SCH ×3 (08:19→17:31)
[2016-08-25] MEDS: SODIUM CHLORIDE 0.9% FLUSH 10 ML FLUSH IV FLUSH SCH ×2 (08:20→20:30)
[2016-08-25] MEDS: methylPREDNISolone SOD SUCC 40 MG/1 ML VIAL IV SCH ×2 (08:20→20:30)
[2016-08-25] MEDS: PANTOPRAZOLE SODIUM 40 MG VIAL IV PUSH SCH (08:20)
[2016-08-25] MEDS: SODIUM CHLORIDE 0.9% FLUSH 10 ML FLUSH IVF PRN (08:20)
[2016-08-25] MEDS: BUMETANIDE INJ 1 MG/4 ML VIAL IV PUSH SCH (08:20)
[2016-08-25] MEDS: EPOPROSTENOL NEB SOLUTION 50 NG/KG/MIN 100 ML NEB SCH ×4 (08:52→17:32)
--- NOTE | 2016-08-25 09:19 | HHI.CCPN ---
Subjective Remarks/Hospital Course 56-year-old morbidly obese female brought in the emergency department in respiratory distress. She was intubated by ER attending. She has been sick for about a week with symptoms consistent with UTI. She's had fevers and chills. She's been short of breath. She's had fatigue. She has had a cough and chest pain with coughing. The family reports that she's been delirious for the last 3 days. 08/15 Patient is sedated with Diprivan, Versed, Fentanyl and intubated. CTA chest showed no PE multifocal consolidation greatest in RLL. Tmax 100.6 08/16 Patient is sedated with Diprivan and Fentanyl. Afebrile. CXR this morning showed increase consolidation. 08/17 Patient remains sedated and intubated. T:100.4 On PRVC/AC RR 18, Tv 500, IT :1.0 PEEP:10, FIO2 75% 08/18 Remains sedated and intubated. Afebrile. CXR this morning unchanged bibasilar infiltrates and effusions. 08/19 Patient was placed on rotoprone bed last night for proning sedated with Diprivan, Versed and Fentnayl in addition she is on Nimbex. On PRVC/AC RR 20, TV 400, IT:1.1, PEEP:14 and FIO2 80%. Afebrile. 08/20 Patient remains sedated and intubated. Remains on PRVC/AC mode with improvements in her oxygenation on FIO2 50% from 80% yesterday and PEEP:12. 08/21 Patient remains sedated and intubated. On PRVC/AC mode with RR 20, TV 400, IT:1.1, PEEP: 12 and FIO2 50%. Afebrile. 08/22 No acute events overnight. Remains sedated, intubated and on Nimbex.. T: 99.8. On PRVC mode with PEP: 12, FIO2 50%. CXR from yesterday showed better aeration, RLL infiltrate unchanged. 08/23 Chest x-ray worsening. Methylprednisolone taper to twice a day by pulmonary. The patient's FiO2 was found to be 100% this a.m., will continue to wean. 08/24: 1 desat episode yesterday when supine. still remains prone now. no vasopressors. sedated and paralyzed. 08/25: flolan added yesterday. fio2 down to 60%. remained supine all night. still on neuromuscular blockade. net -500cc/24h. Objective Vital Signs Date Time Temp Pulse Resp B/P Pulse Ox O2 Delivery O2 Flow Rate FiO2 08/25/16 08:00 61 133/78 104/70 08/25/16 08:00 98.5 20 89 08/25/16 08:00 60 Intake and Output 08/24/16 08/24/16 08/25/16 08:00 16:00 00:00 Intake Total 1367 ml 1869 ml 1660 ml Output Total 750 ml 1550 ml 2700 ml Balance 617 ml 319 ml -1040 ml Result Diagram: 08/25/16 0310 08/25/16 0310 Imaging Last Impressions Chest X-Ray 08/21/16 0000 Signed Impressions: Service Date/Time: Sunday, August 21, 2016 07:23 - CONCLUSION: Better aeration from the prior study. Right lower lobe infiltrate is unchanged. Taco Haas Jr., MD Liver Ultrasound 08/15/16 0000 Signed Impressions: Service Date/Time: Monday, August 15, 2016 15:45 - CONCLUSION: Fatty liver and cholelithiasis. Common bile duct is dilated and common bile duct stone is not excluded. Danyel Escalante MD CT Angiography 08/15/16 0000 Signed Impressions: Service Date/Time: Monday, August 15, 2016 02:33 - CONCLUSION: 1. No evidence for pulmonary embolism. 2. Multifocal consolidation greatest in the right lower lobe and associated adenopathy. Terry Estrada MD Objective Remarks GENERAL: Patient is intubated and sedated, on paralytics supine but still on Rotaprone bed. SKIN: Warm and dry. HEAD: Normocephalic. EYES: No scleral icterus. No injection or drainage. NECK: trachea midline. morbid obesity prevents accurate assessment of JVD. CARDIOVASCULAR: Regular rate and rhythm without murmurs, gallops, or rubs. RESPIRATORY: Breath sounds equal bilaterally. No accessory muscle use. GASTROINTESTINAL: Abdomen soft, non-tender, nondistended. MUSCULOSKELETAL: No cyanosis, or edema. Neuro: Sedated, paralyzed. RASS -5. A/P Problem List: (1) CHF (congestive heart failure) ICD Code: I50.9 Status: Acute (2) Respiratory failure ICD Code: J96.90 Status: Acute (3) Pneumonia ICD Code: J18.9 Status: Acute Assessment and Plan 1)Acute hypercapnic and hypoxemic resp failure -ARDS 2)Pneumonia community-acquired 3)Elevated LFT 4)Hypokalemia 5)Hypothyroidism 6)Dyslipidemia 7)Mild elevated trop likely 2nd resp failure 8)Morbid obesity Plan Neuro: fentanyl, propofol, versed while paralyzed. d/c nimbex today. RASS goal - 2. wean versed today. Pulm: On PRVC/AC RR 20, TV 400, PEEP 12, IT: 1.1 and FIO2 0.6%. Decrease FIO2 as tiki. for goal spo2 > 88% continue flolan. Bronchodilators, solumederol 40mg Q12 ICU vent bundle. Pulm is following- Dr. Beck move to regular bed today continue flolan. no SBT today. CV: Monitor HR and BP keep MAP>65mmg Echo showed EG 65-70% : Monitor renal function, I/O's. electrolytes replacement per protocol. hold scheduled bumex. will start bumex drip 0.5mg/hr add diamox 500mg iv q8h x 3 doses for metabolic alkalosis. GI: Monitor LFT's ( trending down), on Protonix 40mg daily for GI prophylaxis US liver: Fatty liver and cholelithiasis. On TF Glucerna 1.5 @ 45ml/hr, minimal residual ID: d/c abx yesterday. if she spikes fever, leukocytosis, will re-culture and broaden abx. blood and sputum cx 08/15- NGTD strep pneumonia and Legionella urinary Ag negative Heme: Monitor CBC Endo: on SSI ( medium scale) for glycemic control On Synthroid 200mcg daily. TSH 1.37 GI prophylaxis- Protonix 40mg daily DVT prophylaxis- On Heparin SQ Lines: Right IJ CVP, right rad A-line placed 08/18 my billing statement This patient remains critically ill with one or more organ systems which are or may become a threat to life. I have spent in excess of 31 minutes discontinuously in the care and management of this patient. This time is exclusive of procedures, and includes, but is not limited to, evaluation of the patient, review of the medical record, discussions with family, consultants, nursing staff, or respiratory therapy, and documentation in the medical record. Problem Qualifiers (1) CHF (congestive heart failure): Qualified Code: I50.9 - Acute congestive heart failure, unspecified congestive heart failure type (2) Respiratory failure: Qualified Code: J96.02 - Acute respiratory failure with hypercapnia (3) Pneumonia: Qualified Code: J18.9 - Pneumonia of both lungs due to infectious organism, unspecified part of lung Tutu Hoffman MD Aug 25, 2016 09:19
[2016-08-25] MEDS ORDERED: BUMETANIDE INJ 100 ML IV SCH (10:00)
[2016-08-25] MEDS: DOCUSATE SODIUM 100 MG/10 ML UDC G-TUBE SCH ×2 (10:33→22:55)
[2016-08-25 10:44] LABS: BICARBONATE 37.8 MEQ/L (21.0-32.0); MAGNESIUM 2.4 MG/DL (1.5-2.5); POTASSIUM 3.8 MEQ/L (3.5-5.1)
[2016-08-25] MEDS: POTASSIUM CHLOR 20 MEQ PREMIX 100 ML IV PRN (10:59)
--- NOTE | 2016-08-25 13:03 | HHI.PR ---
Subjective Remarks Sedated on the vent . FIO2 at 60 %. PEEP is at 12 CM. She is Supine today CXR stable. Objective Vital Signs Date Time Temp Pulse Resp B/P Pulse Ox O2 Delivery O2 Flow Rate FiO2 08/25/16 12:00 67 08/25/16 12:00 60 08/25/16 12:00 99.5 67 20 136/72 90 112/63 08/25/16 10:21 88 60 08/25/16 10:00 66 08/25/16 08:00 61 133/78 104/70 08/25/16 08:00 98.5 61 20 133/78 89 103/71 08/25/16 08:00 60 08/25/16 08:00 61 08/25/16 07:09 92 60 08/25/16 06:00 60 08/25/16 04:03 95 60 08/25/16 04:00 60 08/25/16 04:00 63 08/25/16 04:00 98.8 63 20 137/76 94 109/62 08/25/16 02:00 63 08/25/16 01:05 93 60 08/25/16 00:00 98.8 66 20 126/65 92 109/63 08/25/16 00:00 60 08/25/16 00:00 66 08/24/16 22:02 95 60 08/24/16 22:00 60 08/24/16 20:00 57 08/24/16 20:00 57 129/74 94/52 08/24/16 20:00 98.7 57 20 129/74 91 94/52 08/24/16 20:00 60 08/24/16 19:43 92 60 08/24/16 18:00 58 08/24/16 16:00 56 08/24/16 16:00 60 08/24/16 16:00 98.9 56 20 130/71 92 100/56 08/24/16 15:48 93 55 08/24/16 14:00 56 I/O 08/24/16 08/24/16 08/24/16 08/25/16 08/25/16 08/25/16 07:00 15:00 23:00 07:00 15:00 23:00 Intake Total 1367 ml 1869 ml 1660 ml 1081 ml 943 ml Output Total 750 ml 1550 ml 2700 ml 950 ml 2250 ml Balance 617 ml 319 ml -1040 ml 131 ml -1307 ml IV Total 990 ml 1280 ml 1217 ml 772 ml 943 ml Tube Feeding 277 ml 289 ml 343 ml 249 ml Other 100 ml 300 ml 100 ml 60 ml Output Urine Total 700 ml 1550 ml 2600 ml 550 ml 2250 ml Stool Total 50 ml 0 ml 100 ml 400 ml Result Diagram: 08/25/16 0310 08/25/16 0945 Objective Remarks This is an obese middle-aged white female who is sedated. She is intubated orally . HEENT: Head normocephalic. PEERl ET tube in orally Neck: No bruits, no thyroid enlargement, no lymphadenopathy. Chest: Decreased breath sounds.Occ wheeze Heart: Heart sounds were regular. S1-S2 no murmur, no S3. Abdomen: Soft, benign. No masses, or tenderness. Bowel sounds are active. Extremities: Mild edema . Neuro : She is sedated. Assessment and Plan Assessment and Plan IMPRESSION 1. Acute hypercapnic respiratory failure. 2. Pulmonary edema. 3. Basilar pneumonia 4. Obstructive sleep apnea syndrome 5. Hypertension 6. Hypothyroidism. 7. Obesity. Plan : 1. Cont Antibiotics.Per Dr Haas. 2. Wean FIo2 to keep sat >92. 3. Nebs qid , duoneb. 4. Off Prone bed today 5. Flolan inhalation 6. Trach suction and lavage. 7. Tube feeds at 50 CC 8. Keep sedated. 9. solumedrol 40 mg q12h. 10. CXR ,CBC, BMP in am Abimael Beck MD Aug 25, 2016 13:03
[2016-08-25 16:23] LABS: MAGNESIUM 2.6 MG/DL (1.5-2.5); POTASSIUM 3.5 MEQ/L (3.5-5.1)
[2016-08-25] MEDS: POTASSIUM CHLOR 40 MEQ PREMIX 100 ML IV PRN (16:49)
[2016-08-25] MEDS: PRAVASTATIN SOD 20 MG TAB PO SCH (20:30)
[2016-08-25 21:31] LABS: MAGNESIUM 2.4 MG/DL (1.5-2.5); POTASSIUM 3.2 MEQ/L (3.5-5.1)
[2016-08-25] MEDS: POTASSIUM CHLORIDE INJ 30 MEQ in SODIUM CHLORIDE 0.9% INJ 100 ML IV-CENTRAL SCH (22:09)
[2016-08-26] VITALS (17 sets, daily range): BP systolic 96–183; BP diastolic 57–92; PULSE 54–110; RESP 20–21; TEMP 99.2–100; O2SAT 88–94
[2016-08-26] MEDS: POTASSIUM CHLORIDE INJ 30 MEQ in SODIUM CHLORIDE 0.9% INJ 100 ML IV-CENTRAL SCH ×3 (00:49→08:31)
[2016-08-26] MEDS: PROPOFOL 1000 MG/100 ML INJ 100 ML IV SCH ×9 (01:21→23:32)
[2016-08-26] MEDS: RESP: ALBUTEROL 2.5 MG/IPRATROPIUM 0.5 MG NEB (SCH) INH ×6 (03:34→23:34)
[2016-08-26] MEDS: INSULIN NovoLIN REGULAR SUPPLEMENTAL SCALE SQ SCH ×4 (04:00→20:40)
[2016-08-26] MEDS: CHLORHEXIDINE GLUCONATE 2 % 1 PACK (2 CLOTHS) TOP SCH ×2 (04:00→19:52)
[2016-08-26 04:36] LABS: HEMATOCRIT 38.4 % (35.0-46.0); MEAN CELL VOLUME 88.4 FL (80.0-100.0); MEAN CORPUSCULAR HGB CONC 32.7 % (32.0-36.0); PLATELET COUNT 387 TH/MM3 (150-450); RED BLOOD COUNT 4.35 MIL/MM3 (4.00-5.30); RED CELL DISTRIBUTION WIDTH 16.7 % (11.6-17.2); REVIEW FLAG FINAL; WHITE BLOOD COUNT 9.6 TH/MM3 (4.0-11.0)
[2016-08-26 04:49] LABS: BICARBONATE 34.4 MEQ/L (21.0-32.0); MAGNESIUM 2.7 MG/DL (1.5-2.5); POTASSIUM 3.4 MEQ/L (3.5-5.1)
[2016-08-26] MEDS: LEVOTHYROXINE SODIUM 200 MCG TAB PO SCH (05:32)
--- NOTE | 2016-08-26 08:05 | HHI.CCPN ---
Subjective Remarks/Hospital Course 56-year-old morbidly obese female brought in the emergency department in respiratory distress. She was intubated by ER attending. She has been sick for about a week with symptoms consistent with UTI. She's had fevers and chills. She's been short of breath. She's had fatigue. She has had a cough and chest pain with coughing. The family reports that she's been delirious for the last 3 days. 08/15 Patient is sedated with Diprivan, Versed, Fentanyl and intubated. CTA chest showed no PE multifocal consolidation greatest in RLL. Tmax 100.6 08/16 Patient is sedated with Diprivan and Fentanyl. Afebrile. CXR this morning showed increase consolidation. 08/17 Patient remains sedated and intubated. T:100.4 On PRVC/AC RR 18, Tv 500, IT :1.0 PEEP:10, FIO2 75% 08/18 Remains sedated and intubated. Afebrile. CXR this morning unchanged bibasilar infiltrates and effusions. 08/19 Patient was placed on rotoprone bed last night for proning sedated with Diprivan, Versed and Fentnayl in addition she is on Nimbex. On PRVC/AC RR 20, TV 400, IT:1.1, PEEP:14 and FIO2 80%. Afebrile. 08/20 Patient remains sedated and intubated. Remains on PRVC/AC mode with improvements in her oxygenation on FIO2 50% from 80% yesterday and PEEP:12. 08/21 Patient remains sedated and intubated. On PRVC/AC mode with RR 20, TV 400, IT:1.1, PEEP: 12 and FIO2 50%. Afebrile. 08/22 No acute events overnight. Remains sedated, intubated and on Nimbex.. T: 99.8. On PRVC mode with PEP: 12, FIO2 50%. CXR from yesterday showed better aeration, RLL infiltrate unchanged. 08/23 Chest x-ray worsening. Methylprednisolone taper to twice a day by pulmonary. The patient's FiO2 was found to be 100% this a.m., will continue to wean. 08/24: 1 desat episode yesterday when supine. still remains prone now. no vasopressors. sedated and paralyzed. 08/25: flolan added yesterday. fio2 down to 60%. remained supine all night. still on neuromuscular blockade. net -500cc/24h. 08/26: good diuresis. remained supine. fio2 70%. weaning flolan. remains with significant respiratory support and high peep despite 6L diuresis overnight. Cr still stable. Objective Vital Signs Date Time Temp Pulse Resp B/P Pulse Ox O2 Delivery O2 Flow Rate FiO2 08/26/16 06:00 64 08/26/16 04:47 94 70 08/26/16 04:00 99.2 20 128/68 104/63 Intake and Output 08/25/16 08/25/16 08/26/16 08:00 16:00 00:00 Intake Total 1081 ml 1696 ml 815 ml Output Total 950 ml 4925 ml 3430 ml Balance 131 ml -3229 ml -2615 ml Result Diagram: 08/26/16 0345 08/26/16 0345 Imaging Last Impressions Chest X-Ray 08/21/16 0000 Signed Impressions: Service Date/Time: Sunday, August 21, 2016 07:23 - CONCLUSION: Better aeration from the prior study. Right lower lobe infiltrate is unchanged. Taco Haas Jr., MD Liver Ultrasound 08/15/16 0000 Signed Impressions: Service Date/Time: Monday, August 15, 2016 15:45 - CONCLUSION: Fatty liver and cholelithiasis. Common bile duct is dilated and common bile duct stone is not excluded. Danyel Escalante MD CT Angiography 08/15/16 0000 Signed Impressions: Service Date/Time: Monday, August 15, 2016 02:33 - CONCLUSION: 1. No evidence for pulmonary embolism. 2. Multifocal consolidation greatest in the right lower lobe and associated adenopathy. Terry Estrada MD Objective Remarks GENERAL: Patient is intubated and sedated, critically ill SKIN: Warm and dry. HEAD: Normocephalic. EYES: No scleral icterus. No injection or drainage. NECK: trachea midline. morbid obesity prevents accurate assessment of JVD. CARDIOVASCULAR: Regular rate and rhythm without murmurs, gallops, or rubs. RESPIRATORY: Breath sounds equal bilaterally. No accessory muscle use. GASTROINTESTINAL: Abdomen soft, non-tender, nondistended. MUSCULOSKELETAL: No cyanosis, or edema. Neuro: RASS -2. follows commands. A/P Problem List: (1) CHF (congestive heart failure) ICD Code: I50.9 Status: Acute (2) Respiratory failure ICD Code: J96.90 Status: Acute (3) Pneumonia ICD Code: J18.9 Status: Acute Assessment and Plan 1)Acute hypercapnic and hypoxemic resp failure -ARDS 2)Pneumonia community-acquired 3)Elevated LFT 4)Hypokalemia 5)Hypothyroidism 6)Dyslipidemia 7)Mild elevated trop likely 2nd resp failure 8)Morbid obesity Plan Neuro: fentanyl, propofol for goal RASS -2. d/c versed yesterday. off nimbex. daily sedation vacation. Pulm: On PRVC/AC RR 20, TV 400, PEEP 12, IT: 1.1 and FIO2 0.7%. Decrease FIO2 as tiki. for goal spo2 > 88% wean flolan today. Bronchodilators, solumederol 40mg Q12 ICU vent bundle. Pulm is following- Dr. Beck no SBT today. still too hypoxic with high vent settings. CV: Monitor HR and BP keep MAP>65mmg Echo showed EG 65-70% : Monitor renal function, I/O's. electrolytes replacement per protocol. continue bumex drip 0.5mg/hr. Cr stable and we continue to have good diuresis. she still has edema and evidence of intravascular volume overload. continue diamox 500mg iv q8h for metabolic alkalosis. GI: Monitor LFT's ( trending down), on Protonix 40mg daily for GI prophylaxis US liver: Fatty liver and cholelithiasis. On TF Glucerna 1.5 @ 45ml/hr, minimal residual ID: s/p full course of broad spectrum abx. blood and sputum cx 08/15- NGTD strep pneumonia and Legionella urinary Ag negative Heme: Monitor CBC Endo: on SSI ( medium scale) for glycemic control On Synthroid 200mcg daily. TSH 1.37 GI prophylaxis- Protonix 40mg daily DVT prophylaxis- On Heparin SQ Lines: Right IJ CVP, right rad A-line placed 08/18 my billing statement This patient remains critically ill with one or more organ systems which are or may become a threat to life. I have spent in excess of 36 minutes discontinuously in the care and management of this patient. This time is exclusive of procedures, and includes, but is not limited to, evaluation of the patient, review of the medical record, discussions with family, consultants, nursing staff, or respiratory therapy, and documentation in the medical record. Problem Qualifiers (1) CHF (congestive heart failure): Qualified Code: I50.9 - Acute congestive heart failure, unspecified congestive heart failure type (2) Respiratory failure: Qualified Code: J96.02 - Acute respiratory failure with hypercapnia (3) Pneumonia: Qualified Code: J18.9 - Pneumonia of both lungs due to infectious organism, unspecified part of lung Tutu Hoffman MD Aug 26, 2016 08:05
[2016-08-26] MEDS: BENEPROTEIN POWDER 1 PACK G-TUBE SCH ×3 (08:30→16:43)
[2016-08-26] MEDS: PANTOPRAZOLE SODIUM 40 MG VIAL IV PUSH SCH (08:30)
[2016-08-26] MEDS: HEPARIN SODIUM - SQ 10,000 UNITS/ML VIAL SQ SCH ×3 (08:30→22:35)
[2016-08-26] MEDS: fentaNYL DRIP 250 ML IV SCH ×2 (08:30→20:27)
[2016-08-26] MEDS: methylPREDNISolone SOD SUCC 40 MG/1 ML VIAL IV SCH ×2 (08:30→20:25)
[2016-08-26] MEDS: ARTIFICIAL TEARS OPTH SOLN 15 ML BTL EACH EYE SCH ×3 (08:30→16:43)
[2016-08-26] MEDS: EPOPROSTENOL NEB SCH ×2 (08:31→16:00)
[2016-08-26] MEDS: SODIUM CHLORIDE NEB SCH ×2 (08:31→16:00)
[2016-08-26] MEDS: SODIUM CHLORIDE 0.9% FLUSH 10 ML FLUSH IV FLUSH SCH ×2 (09:04→19:53)
[2016-08-26] MEDS: DOCUSATE SODIUM 100 MG/10 ML UDC G-TUBE SCH ×2 (10:40→21:06)
[2016-08-26] MEDS ORDERED: BUMETANIDE INJ 100 ML IV SCH (11:00)
[2016-08-26 11:33] LABS: BICARBONATE 32.1 MEQ/L (21.0-32.0); MAGNESIUM 2.7 MG/DL (1.5-2.5); POTASSIUM 3.6 MEQ/L (3.5-5.1)
--- NOTE | 2016-08-26 13:05 | HHI.PR ---
Subjective Remarks Sedated on the vent . FIO2 at 60 %. PEEP is at 12 CM. She is back on a regular bed today CXR stable. Bibasal atelectasis. Objective Vital Signs Date Time Temp Pulse Resp B/P Pulse Ox O2 Delivery O2 Flow Rate FiO2 08/26/16 12:00 110 08/26/16 12:00 60 08/26/16 12:00 99.4 110 20 183/92 88 155/87 08/26/16 11:13 92 60 08/26/16 10:00 84 08/26/16 08:00 65 08/26/16 08:00 54 127/60 96/57 08/26/16 08:00 99.2 54 20 127/60 94 96/57 08/26/16 08:00 54 08/26/16 07:57 94 70 08/26/16 06:00 64 08/26/16 04:47 94 70 08/26/16 04:00 70 08/26/16 04:00 59 08/26/16 04:00 99.2 59 20 128/68 94 104/63 08/26/16 02:00 63 08/26/16 00:00 99.4 90 21 163/88 91 138/81 08/26/16 00:00 80 08/26/16 00:00 90 08/25/16 23:04 91 80 08/25/16 22:00 69 08/25/16 20:00 56 08/25/16 20:00 70 08/25/16 20:00 56 121/69 100/61 08/25/16 20:00 99.1 56 20 121/69 95 100/61 08/25/16 19:51 95 70 08/25/16 18:00 69 08/25/16 17:35 63 20 122/66 91 94/58 08/25/16 17:16 89 70 08/25/16 16:00 109 08/25/16 16:00 99.7 109 20 148/87 88 08/25/16 16:00 70 08/25/16 14:00 58 08/25/16 13:16 89 60 I/O 08/25/16 08/25/16 08/25/16 08/26/16 08/26/16 08/26/16 07:00 15:00 23:00 07:00 15:00 23:00 Intake Total 1081 ml 1696 ml 815 ml 1451 ml Output Total 950 ml 4475 ml 3355 ml 2395 ml 965 ml Balance 131 ml -2779 ml -2540 ml -944 ml -965 ml IV Total 772 ml 1204 ml 575 ml 951 ml Tube Feeding 249 ml 392 ml 180 ml 440 ml Tube Irrigant 100 ml Other 60 ml 60 ml 60 ml Output Urine Total 550 ml 4425 ml 2655 ml 2045 ml 965 ml Stool Total 400 ml 50 ml 700 ml 350 ml Result Diagram: 08/26/16 0345 08/26/16 1030 Objective Remarks This is an obese middle-aged white female who is sedated. She is intubated orally . HEENT: Head normocephalic. PEERl ET tube in orally Neck: No bruits, no thyroid enlargement, no lymphadenopathy. Chest: Decreased breath sounds.Occ wheeze Heart: Heart sounds were regular. S1-S2 no murmur, no S3. Abdomen: Soft, benign. No masses, or tenderness. Bowel sounds are active. Extremities: Mild edema . Neuro : She is sedated. Assessment and Plan Assessment and Plan IMPRESSION 1. Acute hypercapnic respiratory failure. 2. Pulmonary edema. 3. Basilar pneumonia 4. Obstructive sleep apnea syndrome 5. Hypertension 6. Hypothyroidism. 7. Obesity. Plan : 1. Cont Antibiotics.Per Dr Haas. 2. Wean FIo2 to keep sat >92. 3. Nebs qid , duoneb. 4. ABG today. 5. Wean Flolan . 6. Trach suction and lavage. 7. Tube feeds at 50 CC 8. Keep sedated. 9. Cont Bumex drip. 10. CBC, BMP in am Abimael Beck MD Aug 26, 2016 13:05
[2016-08-26] MEDS: POTASSIUM CHLOR 40 MEQ PREMIX 100 ML IV PRN ×2 (13:06→16:55)
[2016-08-26 15:58] LABS: BICARBONATE 33.3 MEQ/L (21.0-32.0); MAGNESIUM 2.6 MG/DL (1.5-2.5); POTASSIUM 3.6 MEQ/L (3.5-5.1)
[2016-08-26 16:57] LABS: BLOOD GAS BASE EXCESS 6.8 mmol/L (-2-2); BLOOD GAS CARBOXYHEMOGLOBIN 1.3 % (0-4); BLOOD GAS HCO3 31 mmol/L (22-26); BLOOD GAS METHEMOGLOBIN 1.2 % (0-2); BLOOD GAS O2 HGB SATURATION 94 % (90-100); BLOOD GAS OXYGEN CONTENT 17.3 Vol % (12.0-20.0); BLOOD GAS PCO2 50 mmHg (38-42); BLOOD GAS PO2 92 mmHg (61-120); CRITICAL VALUE NO; OXYGEN DEVICE VENTILATOR; TEMP CORR TO 98.6
[2016-08-26 17:00] LABS: DRAW SITE ART LINE; FIO2 60 %; STAT NO
[2016-08-26] MEDS: PRAVASTATIN SOD 20 MG TAB PO SCH (20:26)
[2016-08-27] VITALS (19 sets, daily range): BP systolic 102–161; BP diastolic 60–92; PULSE 58–109; RESP 20; TEMP 99.1–99.8; O2SAT 89–98
[2016-08-27 00:15] LABS: BICARBONATE 34.5 MEQ/L (21.0-32.0); MAGNESIUM 2.6 MG/DL (1.5-2.5); POTASSIUM 3.2 MEQ/L (3.5-5.1)
[2016-08-27] MEDS: POTASSIUM CHLOR 40 MEQ PREMIX 100 ML IV PRN ×3 (01:51→13:25)
[2016-08-27] MEDS: PROPOFOL 1000 MG/100 ML INJ 100 ML IV SCH ×8 (01:51→21:17)
[2016-08-27] MEDS: INSULIN NovoLIN REGULAR SUPPLEMENTAL SCALE SQ SCH ×4 (04:00→21:20)
[2016-08-27] MEDS: RESP: ALBUTEROL 2.5 MG/IPRATROPIUM 0.5 MG NEB (SCH) INH ×6 (04:28→23:41)
[2016-08-27] MEDS: LEVOTHYROXINE SODIUM 200 MCG TAB PO SCH (04:58)
[2016-08-27 07:36] LABS: HEMATOCRIT 40.1 % (35.0-46.0); MEAN CELL VOLUME 86.8 FL (80.0-100.0); MEAN CORPUSCULAR HEMOGLOBIN 28.2 PG (27.0-34.0); MEAN CORPUSCULAR HGB CONC 32.5 % (32.0-36.0); PLATELET COUNT 351 TH/MM3 (150-450); RED BLOOD COUNT 4.62 MIL/MM3 (4.00-5.30); RED CELL DISTRIBUTION WIDTH 16.5 % (11.6-17.2); REVIEW FLAG FINAL; WHITE BLOOD COUNT 9.3 TH/MM3 (4.0-11.0)
[2016-08-27 07:53] LABS: BICARBONATE 34.3 MEQ/L (21.0-32.0); MAGNESIUM 2.7 MG/DL (1.5-2.5); POTASSIUM 3.5 MEQ/L (3.5-5.1)
[2016-08-27] MEDS: ARTIFICIAL TEARS OPTH SOLN 15 ML BTL EACH EYE SCH ×3 (08:38→18:21)
[2016-08-27] MEDS: HEPARIN SODIUM - SQ 10,000 UNITS/ML VIAL SQ SCH ×2 (08:38→16:14)
[2016-08-27] MEDS: BENEPROTEIN POWDER 1 PACK G-TUBE SCH ×3 (08:39→18:00)
[2016-08-27] MEDS: PANTOPRAZOLE SODIUM 40 MG VIAL IV PUSH SCH (08:39)
[2016-08-27] MEDS: methylPREDNISolone SOD SUCC 40 MG/1 ML VIAL IV SCH ×2 (08:39→21:19)
[2016-08-27] MEDS: SODIUM CHLORIDE 0.9% FLUSH 10 ML FLUSH IV FLUSH SCH ×2 (08:39→21:19)
[2016-08-27] MEDS: SODIUM CHLORIDE 0.9% FLUSH 10 ML FLUSH IVF PRN (08:39)
--- NOTE | 2016-08-27 10:12 | HHI.CCPN ---
Subjective Remarks/Hospital Course 56-year-old morbidly obese female brought in the emergency department in respiratory distress. She was intubated by ER attending. She has been sick for about a week with symptoms consistent with UTI. She's had fevers and chills. She's been short of breath. She's had fatigue. She has had a cough and chest pain with coughing. The family reports that she's been delirious for the last 3 days. 08/15 Patient is sedated with Diprivan, Versed, Fentanyl and intubated. CTA chest showed no PE multifocal consolidation greatest in RLL. Tmax 100.6 08/16 Patient is sedated with Diprivan and Fentanyl. Afebrile. CXR this morning showed increase consolidation. 08/17 Patient remains sedated and intubated. T:100.4 On PRVC/AC RR 18, Tv 500, IT :1.0 PEEP:10, FIO2 75% 08/18 Remains sedated and intubated. Afebrile. CXR this morning unchanged bibasilar infiltrates and effusions. 08/19 Patient was placed on rotoprone bed last night for proning sedated with Diprivan, Versed and Fentnayl in addition she is on Nimbex. On PRVC/AC RR 20, TV 400, IT:1.1, PEEP:14 and FIO2 80%. Afebrile. 08/20 Patient remains sedated and intubated. Remains on PRVC/AC mode with improvements in her oxygenation on FIO2 50% from 80% yesterday and PEEP:12. 08/21 Patient remains sedated and intubated. On PRVC/AC mode with RR 20, TV 400, IT:1.1, PEEP: 12 and FIO2 50%. Afebrile. 08/22 No acute events overnight. Remains sedated, intubated and on Nimbex.. T: 99.8. On PRVC mode with PEP: 12, FIO2 50%. CXR from yesterday showed better aeration, RLL infiltrate unchanged. 08/23 Chest x-ray worsening. Methylprednisolone taper to twice a day by pulmonary. The patient's FiO2 was found to be 100% this a.m., will continue to wean. 08/24: 1 desat episode yesterday when supine. still remains prone now. no vasopressors. sedated and paralyzed. 08/25: flolan added yesterday. fio2 down to 60%. remained supine all night. still on neuromuscular blockade. net -500cc/24h. 08/26: good diuresis. remained supine. fio2 70%. weaning flolan. remains with significant respiratory support and high peep despite 6L diuresis overnight. Cr still stable. 08/27: continues with good diuresis. net negative 3L/24h. fio2 down to 55%. flolan off. still high peep. not ready for SBT. more agitated today. Cr remains stable despite aggressive diuresis. Objective Vital Signs Date Time Temp Pulse Resp B/P Pulse Ox O2 Delivery O2 Flow Rate FiO2 08/27/16 08:11 96 55 08/27/16 08:00 99.1 61 20 127/61 110/70 Intake and Output 08/26/16 08/26/16 08/27/16 08:00 16:00 00:00 Intake Total 1451 ml 1246 ml 516 ml Output Total 2025 ml 2740 ml 1665 ml Balance -574 ml -1494 ml -1149 ml Result Diagram: 08/27/16 0600 08/27/16 0600 Other Results Laboratory Tests Test 08/26/16 16:45 Blood Gas Puncture Site ART LINE Blood Gas Patient Temperature 98.6 Blood Gas HCO3 31 mmol/L (22-26) Blood Gas Base Excess 6.8 mmol/L (-2-2) Blood Gas Oxygen Saturation 94 % (90-100) Arterial Blood pH 7.42 (7.380-7.420) Arterial Blood Partial 50 mmHg (38-42) Pressure CO2 Arterial Blood Partial 92 mmHg Pressure O2 (61-120) Arterial Blood Oxygen Content 17.3 Vol % (12.0-20.0) Arterial Blood 1.3 % (0-4) Carboxyhemoglobin Arterial Blood Methemoglobin 1.2 % (0-2) Blood Gas Hemoglobin 13.0 G/DL (12.0-16.0) Oxygen Delivery Device VENTILATOR Blood Gas Ventilator Setting Blood Gas Inspired Oxygen 60 % Imaging Last Impressions Chest X-Ray 08/21/16 0000 Signed Impressions: Service Date/Time: Sunday, August 21, 2016 07:23 - CONCLUSION: Better aeration from the prior study. Right lower lobe infiltrate is unchanged. Taco Haas Jr., MD Liver Ultrasound 08/15/16 0000 Signed Impressions: Service Date/Time: Monday, August 15, 2016 15:45 - CONCLUSION: Fatty liver and cholelithiasis. Common bile duct is dilated and common bile duct stone is not excluded. Danyel Escalante MD CT Angiography 08/15/16 0000 Signed Impressions: Service Date/Time: Monday, August 15, 2016 02:33 - CONCLUSION: 1. No evidence for pulmonary embolism. 2. Multifocal consolidation greatest in the right lower lobe and associated adenopathy. Terry Estrada MD Objective Remarks GENERAL: Patient is intubated and sedated, critically ill SKIN: Warm and dry. HEAD: Normocephalic. EYES: No scleral icterus. No injection or drainage. NECK: trachea midline. morbid obesity prevents accurate assessment of JVD. CARDIOVASCULAR: Regular rate and rhythm without murmurs, gallops, or rubs. RESPIRATORY: Breath sounds equal bilaterally. No accessory muscle use. GASTROINTESTINAL: Abdomen soft, non-tender, nondistended. MUSCULOSKELETAL: No cyanosis, or edema. Neuro: RASS -2. follows commands. A/P Problem List: (1) CHF (congestive heart failure) ICD Code: I50.9 Status: Acute (2) Respiratory failure ICD Code: J96.90 Status: Acute (3) Pneumonia ICD Code: J18.9 Status: Acute Assessment and Plan 1)Acute hypercapnic and hypoxemic resp failure -ARDS 2)Pneumonia community-acquired 3)Elevated LFT 4)Hypokalemia 5)Hypothyroidism 6)Dyslipidemia 7)Mild elevated trop likely 2nd resp failure 8)Morbid obesity 9) agitated delirium Plan Neuro: fentanyl, propofol for goal RASS -2. daily sedation vacation. add seroquel 50mg po q8h for delirium and oxycodone 10mg po q4h femi for pain. Pulm: On PRVC/AC RR 20, TV 400, PEEP 12, IT: 1.1 and FIO2 0.55%. Decrease FIO2 as tiki. for goal spo2 > 88% Bronchodilators, solumederol 40mg Q12 ICU vent bundle. Pulm is following- Dr. Beck no SBT today. still too hypoxic with high vent settings. CV: Monitor HR and BP keep MAP>65mmg Echo showed EG 65-70% : Monitor renal function, I/O's. electrolytes replacement per protocol. continue bumex drip 0.5mg/hr. Cr stable and we continue to have good diuresis. she still has edema and evidence of intravascular volume overload. continue diamox 500mg iv q8h for metabolic alkalosis. GI: Monitor LFT's ( trending down), on Protonix 40mg daily for GI prophylaxis US liver: Fatty liver and cholelithiasis. On TF Glucerna 1.5 @ 45ml/hr, minimal residual ID: s/p full course of broad spectrum abx. blood and sputum cx 08/15- NGTD strep pneumonia and Legionella urinary Ag negative Heme: Monitor CBC Endo: on SSI ( medium scale) for glycemic control On Synthroid 200mcg daily. TSH 1.37 GI prophylaxis- Protonix 40mg daily DVT prophylaxis- On Heparin SQ Lines: Right IJ CVP, right rad A-line placed 08/18 my billing statement This patient remains critically ill with one or more organ systems which are or may become a threat to life. I have spent in excess of 32 minutes discontinuously in the care and management of this patient. This time is exclusive of procedures, and includes, but is not limited to, evaluation of the patient, review of the medical record, discussions with family, consultants, nursing staff, or respiratory therapy, and documentation in the medical record. Problem Qualifiers (1) CHF (congestive heart failure): Qualified Code: I50.9 - Acute congestive heart failure, unspecified congestive heart failure type (2) Respiratory failure: Qualified Code: J96.02 - Acute respiratory failure with hypercapnia (3) Pneumonia: Qualified Code: J18.9 - Pneumonia of both lungs due to infectious organism, unspecified part of lung Tutu Hoffman MD Aug 27, 2016 10:12
[2016-08-27] MEDS: oxyCODONE HCL ORAL CONC 20 MG/ML SYRINGE PO SCH ×4 (10:54→21:19)
[2016-08-27] MEDS: fentaNYL DRIP 250 ML IV SCH ×2 (10:54→21:18)
[2016-08-27] MEDS: DOCUSATE SODIUM 100 MG/10 ML UDC G-TUBE SCH ×2 (10:54→20:26)
[2016-08-27 10:55] LABS: BICARBONATE 34.8 MEQ/L (21.0-32.0); MAGNESIUM 2.6 MG/DL (1.5-2.5)
[2016-08-27] MEDS: LORazepam 2 MG/ML VIAL IV PRN ×2 (11:19→16:30)
--- NOTE | 2016-08-27 13:12 | HHI.PR ---
Subjective Remarks Sedated on the vent . FIO2 at 55 %. PEEP is at 12 CM. She is back on a regular bed . CXR stable. Bibasal atelectasis. Output was good with Bumex. Objective Vital Signs Date Time Temp Pulse Resp B/P Pulse Ox O2 Delivery O2 Flow Rate FiO2 08/27/16 12:23 91 55 08/27/16 12:00 72 08/27/16 12:00 99.8 72 20 118/60 90 105/68 08/27/16 12:00 55 08/27/16 10:00 109 08/27/16 08:11 96 55 08/27/16 08:00 55 08/27/16 08:00 99.1 61 20 127/61 95 110/70 08/27/16 08:00 61 08/27/16 06:00 62 08/27/16 04:28 95 60 08/27/16 04:00 60 08/27/16 04:00 99.4 63 20 146/77 92 118/77 08/27/16 04:00 63 08/27/16 02:00 58 08/27/16 01:01 94 60 08/27/16 00:00 90 08/27/16 00:00 60 08/27/16 00:00 99.1 90 20 161/79 93 160/92 08/26/16 22:00 62 08/26/16 20:00 60 08/26/16 20:00 61 08/26/16 20:00 99.3 61 20 131/69 93 141/71 08/26/16 20:00 54 133/69 141/71 08/26/16 19:28 94 60 08/26/16 18:00 84 08/26/16 16:00 60 08/26/16 16:00 64 08/26/16 16:00 100.0 64 20 138/68 93 111/69 08/26/16 15:16 92 60 08/26/16 14:00 104 I/O 08/26/16 08/26/16 08/26/16 08/27/16 08/27/16 08/27/16 07:00 15:00 23:00 07:00 15:00 23:00 Intake Total 1451 ml 1246 ml 446 ml 570 ml Output Total 2395 ml 2715 ml 1670 ml 1645 ml 1110 ml Balance -944 ml -1469 ml -1224 ml -1075 ml -1110 ml IV Total 951 ml 884 ml 446 ml 570 ml Tube Feeding 440 ml 362 ml Other 60 ml Output Urine Total 2045 ml 2515 ml 1670 ml 1645 ml 1110 ml Stool Total 350 ml 200 ml Result Diagram: 08/27/16 0600 08/27/16 0930 Objective Remarks This is an obese middle-aged white female who is sedated. She is intubated orally . HEENT: Head normocephalic. Pupils react Neck: No bruits, no thyroid enlargement, no lymphadenopathy. Chest: Decreased breath sounds.Occ wheeze and crackles Heart: Heart sounds were regular. S1-S2 no murmur, no S3. Abdomen: Soft, benign. No masses, or tenderness. Bowel sounds are active. Extremities: Mild edema . Neuro : She is sedated. Assessment and Plan Assessment and Plan IMPRESSION 1. Acute hypercapnic respiratory failure. 2. Pulmonary edema. 3. Basilar pneumonia 4. Obstructive sleep apnea syndrome 5. Hypertension 6. Hypothyroidism. 7. Obesity. Plan : 1. Cont Antibiotics.Per Dr Haas. 2. Wean FIo2 to keep sat >92. 3. Nebs qid , duoneb. 4. Reduce sedation 5. CPAP trial in am 6. Trach suction and lavage. 7. Tube feeds at 50 CC 8. Consider trach this week. 9. Cont Bumex bid 10. CBC, BMP in am Abimael Beck MD Aug 27, 2016 13:11
[2016-08-27] MEDS: QUEtiapine FUMARATE 25 MG TAB PO SCH ×2 (13:25→21:19)
[2016-08-27] MEDS: POTASSIUM CHLOR 20 MEQ PREMIX 100 ML IV PRN ×2 (16:13→18:34)
--- NOTE | 2016-08-27 16:26 | RADRPT ---
EXAM DATE/TIME: 08/27/2016 13:35 [facility] COMPARISON: CHEST SINGLE AP, August 25, 2016, 4:06. INDICATIONS : Short of breath. MEDICAL HISTORY : Hypertension. Hypercholesterolemia. SURGICAL HISTORY : None. ENCOUNTER: Subsequent ACUITY: 1 week PAIN SCORE: Non-responsive. LOCATION: Bilateral chest FINDINGS: A single view of the chest demonstrates endotracheal tube in good position. NG enters stomach. Right central line in superior vena cava. Mild bilateral mostly basilar airspace disease. No significant ef fusion. No pneumothorax. CONCLUSION: 1. Apparatus in satisfactory position. Basilar airspace disease slightly increased from August 25. Rony Malloy MD on August 27, 2016 at 16:23 Board Certified Radiologist. This report was verified electronically.
[2016-08-27] MEDS ORDERED: MIDAZOLAM HCL 2 MG/2 ML VIAL IV PUSH ONE (16:45)
[2016-08-27] MEDS ORDERED: MIDAZOLAM HCL 2 MG/2 ML VIAL IV ONE (17:00)
[2016-08-27 18:08] LABS: BICARBONATE 34.6 MEQ/L (21.0-32.0); MAGNESIUM 2.9 MG/DL (1.5-2.5); POTASSIUM 3.8 MEQ/L (3.5-5.1)
[2016-08-27] MEDS: PRAVASTATIN SOD 20 MG TAB PO SCH (21:19)
[2016-08-27] MEDS: CHLORHEXIDINE GLUCONATE 2 % 1 PACK (2 CLOTHS) TOP SCH (22:29)
[2016-08-28] VITALS (18 sets, daily range): BP systolic 105–137; BP diastolic 54–65; PULSE 69–93; RESP 17–21; TEMP 99.2–102.3; O2SAT 91–98
[2016-08-28] MEDS: HEPARIN SODIUM - SQ 10,000 UNITS/ML VIAL SQ SCH ×3 (00:10→17:03)
[2016-08-28] MEDS: PROPOFOL 1000 MG/100 ML INJ 100 ML IV SCH ×6 (00:10→21:47)
[2016-08-28] MEDS: oxyCODONE HCL ORAL CONC 20 MG/ML SYRINGE PO SCH ×6 (00:10→20:39)
[2016-08-28 01:08] LABS: BICARBONATE 34.4 MEQ/L (21.0-32.0); MAGNESIUM 2.9 MG/DL (1.5-2.5); POTASSIUM 3.4 MEQ/L (3.5-5.1)
[2016-08-28] MEDS: POTASSIUM CHLOR 40 MEQ PREMIX 100 ML IV PRN ×2 (02:09→08:21)
[2016-08-28] MEDS: ACETAMINOPHEN 325 MG TAB PO PRN ×3 (03:29→18:33)
[2016-08-28] MEDS: INSULIN NovoLIN REGULAR SUPPLEMENTAL SCALE SQ SCH ×4 (03:30→22:22)
[2016-08-28] MEDS: RESP: ALBUTEROL 2.5 MG/IPRATROPIUM 0.5 MG NEB (SCH) INH ×6 (03:50→23:39)
[2016-08-28] MEDS: QUEtiapine FUMARATE 25 MG TAB PO SCH ×3 (05:50→21:47)
[2016-08-28] MEDS: LEVOTHYROXINE SODIUM 200 MCG TAB PO SCH (05:50)
[2016-08-28 06:25] LABS: HEMATOCRIT 39.5 % (35.0-46.0); MEAN CELL VOLUME 86.4 FL (80.0-100.0); MEAN CORPUSCULAR HEMOGLOBIN 27.8 PG (27.0-34.0); MEAN CORPUSCULAR HGB CONC 32.2 % (32.0-36.0); PLATELET COUNT 300 TH/MM3 (150-450); RED BLOOD COUNT 4.57 MIL/MM3 (4.00-5.30); RED CELL DISTRIBUTION WIDTH 16.7 % (11.6-17.2); REVIEW FLAG FINAL; WHITE BLOOD COUNT 16.8 TH/MM3 (4.0-11.0)
[2016-08-28 06:56] LABS: BICARBONATE 35.5 MEQ/L (21.0-32.0); POTASSIUM 3.5 MEQ/L (3.5-5.1)
[2016-08-28] MEDS ORDERED: Vancomycin Consult Pharmacy 1 EA OTHER SCH (07:15)
[2016-08-28] MEDS: PANTOPRAZOLE SODIUM 40 MG VIAL IV PUSH SCH (08:21)
[2016-08-28] MEDS: methylPREDNISolone SOD SUCC 40 MG/1 ML VIAL IV SCH ×2 (08:22→20:04)
[2016-08-28] MEDS: CEFEPIME INJ 1,000 MG in SODIUM CHLORIDE 0.9% INJ 100 ML IV SCH ×2 (08:22→17:03)
[2016-08-28] MEDS: ARTIFICIAL TEARS OPTH SOLN 15 ML BTL EACH EYE SCH ×3 (08:23→17:04)
[2016-08-28] MEDS: BENEPROTEIN POWDER 1 PACK G-TUBE SCH ×3 (08:23→17:04)
[2016-08-28] MEDS: SODIUM CHLORIDE 0.9% FLUSH 10 ML FLUSH IV FLUSH SCH ×2 (08:23→20:04)
--- NOTE | 2016-08-28 08:57 | HHI.CCPN ---
Subjective Remarks/Hospital Course 56-year-old morbidly obese female brought in the emergency department in respiratory distress. She was intubated by ER attending. She has been sick for about a week with symptoms consistent with UTI. She's had fevers and chills. She's been short of breath. She's had fatigue. She has had a cough and chest pain with coughing. The family reports that she's been delirious for the last 3 days. 08/15 Patient is sedated with Diprivan, Versed, Fentanyl and intubated. CTA chest showed no PE multifocal consolidation greatest in RLL. Tmax 100.6 08/16 Patient is sedated with Diprivan and Fentanyl. Afebrile. CXR this morning showed increase consolidation. 08/17 Patient remains sedated and intubated. T:100.4 On PRVC/AC RR 18, Tv 500, IT :1.0 PEEP:10, FIO2 75% 08/18 Remains sedated and intubated. Afebrile. CXR this morning unchanged bibasilar infiltrates and effusions. 08/19 Patient was placed on rotoprone bed last night for proning sedated with Diprivan, Versed and Fentnayl in addition she is on Nimbex. On PRVC/AC RR 20, TV 400, IT:1.1, PEEP:14 and FIO2 80%. Afebrile. 08/20 Patient remains sedated and intubated. Remains on PRVC/AC mode with improvements in her oxygenation on FIO2 50% from 80% yesterday and PEEP:12. 08/21 Patient remains sedated and intubated. On PRVC/AC mode with RR 20, TV 400, IT:1.1, PEEP: 12 and FIO2 50%. Afebrile. 08/22 No acute events overnight. Remains sedated, intubated and on Nimbex.. T: 99.8. On PRVC mode with PEP: 12, FIO2 50%. CXR from yesterday showed better aeration, RLL infiltrate unchanged. 08/23 Chest x-ray worsening. Methylprednisolone taper to twice a day by pulmonary. The patient's FiO2 was found to be 100% this a.m., will continue to wean. 08/24: 1 desat episode yesterday when supine. still remains prone now. no vasopressors. sedated and paralyzed. 08/25: flolan added yesterday. fio2 down to 60%. remained supine all night. still on neuromuscular blockade. net -500cc/24h. 08/26: good diuresis. remained supine. fio2 70%. weaning flolan. remains with significant respiratory support and high peep despite 6L diuresis overnight. Cr still stable. 08/27: continues with good diuresis. net negative 3L/24h. fio2 down to 55%. flolan off. still high peep. not ready for SBT. more agitated today. Cr remains stable despite aggressive diuresis. 08/28: diuresis continues. -3.3L/24h. spiked fever overnight with a jump in wbc to 16 this AM. fio2 60%, but her pulmonary improvements have plateaued at this point. still on peep 12. Objective Vital Signs Date Time Temp Pulse Resp B/P Pulse Ox O2 Delivery O2 Flow Rate FiO2 08/28/16 07:11 93 60 08/28/16 06:00 78 08/28/16 04:00 101.5 20 110/54 105/64 Intake and Output 08/27/16 08/27/16 08/28/16 08:00 16:00 00:00 Intake Total 500 ml 1268 ml 616 ml Output Total 1645 ml 2220 ml 1660 ml Balance -1145 ml -952 ml -1044 ml Result Diagram: 08/28/16 0600 08/28/16 0600 Imaging Last Impressions Chest X-Ray 08/21/16 0000 Signed Impressions: Service Date/Time: Sunday, August 21, 2016 07:23 - CONCLUSION: Better aeration from the prior study. Right lower lobe infiltrate is unchanged. Taco Haas Jr., MD Liver Ultrasound 08/15/16 0000 Signed Impressions: Service Date/Time: Monday, August 15, 2016 15:45 - CONCLUSION: Fatty liver and cholelithiasis. Common bile duct is dilated and common bile duct stone is not excluded. Danyel Escalante MD CT Angiography 08/15/16 0000 Signed Impressions: Service Date/Time: Monday, August 15, 2016 02:33 - CONCLUSION: 1. No evidence for pulmonary embolism. 2. Multifocal consolidation greatest in the right lower lobe and associated adenopathy. Terry Estrada MD Objective Remarks GENERAL: Patient is intubated and sedated, critically ill SKIN: Warm and dry. HEAD: Normocephalic. EYES: No scleral icterus. No injection or drainage. NECK: trachea midline. morbid obesity prevents accurate assessment of JVD. CARDIOVASCULAR: Regular rate and rhythm without murmurs, gallops, or rubs. RESPIRATORY: Breath sounds equal bilaterally. No accessory muscle use. GASTROINTESTINAL: Abdomen obese, soft, non-tender, nondistended. MUSCULOSKELETAL: No cyanosis, or edema. Neuro: RASS -2. follows commands. A/P Problem List: (1) CHF (congestive heart failure) ICD Code: I50.9 Status: Acute (2) Respiratory failure ICD Code: J96.90 Status: Acute (3) Pneumonia ICD Code: J18.9 Status: Acute Assessment and Plan 1)Acute hypercapnic and hypoxemic resp failure -ARDS 2)Pneumonia community-acquired 3)Elevated LFT 4)Hypokalemia 5)Hypothyroidism 6)Dyslipidemia 7)Mild elevated trop likely 2nd resp failure 8)Morbid obesity 9) agitated delirium 10) fever, leukocytosis Plan Neuro: fentanyl, propofol for goal RASS -2. daily sedation vacation. continue seroquel 50mg po q8h for delirium and oxycodone 10mg po q4h femi for pain. these are improving her agitation. Pulm: On PRVC/AC RR 20, TV 400, PEEP 12, IT: 1.1 and FIO2 0.6%. Decrease FIO2 as tiki. for goal spo2 > 88% Bronchodilators, solumederol 40mg Q12 ICU vent bundle. Pulm is following- Dr. Beck no SBT today. still too hypoxic with high vent settings. she is not progressing as we would expect. she is off pathway. she will likely require tracheostomy, but fio2 and peep still too high. CV: Monitor HR and BP keep MAP>65mmg Echo showed EG 65-70% : Monitor renal function, I/O's. electrolytes replacement per protocol. continue bumex drip 0.5mg/hr. Cr stable and we continue to have good diuresis. she still has edema and evidence of intravascular volume overload. continue diamox 500mg iv q8h for metabolic alkalosis. will add 24h of continuous albumin infusion. I am worried she may have a new infection, and I do not want to cause intravascular volume depletion in the setting of a new infection, but her pulmonary status requires further diuresis. we will use the albumin to preserve intravascular volume in the setting of ongoing diuresis. GI: Monitor LFT's ( trending down), on Protonix 40mg daily for GI prophylaxis US liver: Fatty liver and cholelithiasis. On TF Glucerna 1.5 @ 45ml/hr, minimal residual ID: s/p full course of broad spectrum abx. blood and sputum cx 08/15- NGTD strep pneumonia and Legionella urinary Ag negative new fever: rudolph culture. start vancomycin and cefepime. may need to add flagyl , but will re-evaluate. most likely sources are urine and VAP. Heme: Monitor CBC Endo: on SSI ( medium scale) for glycemic control On Synthroid 200mcg daily. TSH 1.37 GI prophylaxis- Protonix 40mg daily DVT prophylaxis- On Heparin SQ Lines: Right IJ CVP, right rad A-line placed 08/18. we will replace the CVL in the setting of new fever and concern for infection. d/c art line. my billing statement This patient remains critically ill with one or more organ systems which are or may become a threat to life. I have spent in excess of 47 minutes discontinuously in the care and management of this patient. This time is exclusive of procedures, and includes, but is not limited to, evaluation of the patient, review of the medical record, discussions with family, consultants, nursing staff, or respiratory therapy, and documentation in the medical record. Problem Qualifiers (1) CHF (congestive heart failure): Qualified Code: I50.9 - Acute congestive heart failure, unspecified congestive heart failure type (2) Respiratory failure: Qualified Code: J96.02 - Acute respiratory failure with hypercapnia (3) Pneumonia: Qualified Code: J18.9 - Pneumonia of both lungs due to infectious organism, unspecified part of lung Tutu Hoffman MD Aug 28, 2016 08:57
[2016-08-28] MEDS ORDERED: VANCOMYCIN INJ 1,750 MG in SODIUM CHLORID 0.9% 500 ML INJ 500 ML IV ONE (09:00)
[2016-08-28] MEDS: ALBUMIN HUMAN 25% 12.5 GM/50 ML BAGP IV SCH ×2 (09:40→17:04)
[2016-08-28 10:30] LABS: BLOOD, URINE NEG (NEG); GLUCOSE,URINE NEG (NEG); HYALINE CAST, URINE 4 /lpf (RARE); KETONE, URINE NEG (NEG); MUCUS URINE FEW /lpf (OCC); NITRITE,URINE NEG (NEG); SQUAMOUS EPITHELIAL CELL URINE 1 /hpf (0-5); TRANSITIONAL EPI CELLS, URINE 1 /hpf; URINE COLOR LIGHT-YELLOW (YELLW/STRAW)
[2016-08-28 10:45] LABS: COMMENT (UR) CATH-CULT NOT IND; CULTURE IF INDICATED CATH CULTURE NOT IND
--- NOTE | 2016-08-28 11:06 | RADRPT ---
EXAM DATE/TIME: 08/28/2016 11:38 [facility] COMPARISON: CHEST SINGLE AP, August 27, 2016, 13:35. INDICATIONS : Central line placement MEDICAL HISTORY : None. SURGICAL HISTORY : None. ENCOUNTER: Initial ACUITY: 1 day PAIN SCORE: Non-responsive. LOCATION: Bilateral chest FINDINGS: A single view of the chest demonstrates stable linear atelectatic changes in the left perihilar distr ibution. Bibasilar consolidation/effusion, unchanged. Endotracheal tube remains appropriately positio lynn above the armaan nasogastric tube entering the stomach extending off the inferior aspect of the f ilm. Right IJ central venous catheter is unchanged in position. Interval placement of a left subclavi an central venous catheter with tip projecting over the central venous system. No pneumothorax. [place] us structures are intact. CONCLUSION: 1. Interval placement of a left subclavian central venous catheter with the tip projecting over the c entral venous system. Life support tubes are otherwise stable. 2. Stable right basilar consolidation/effusion with stable linear atelectatic changes in the left per ihilar distribution. 3. No pneumothorax. Beto Barbosa MD on August 28, 2016 at 11:00 Board Certified Radiologist. This report was verified electronically.
--- NOTE | 2016-08-28 12:49 | HHI.PR ---
Subjective Remarks Sedated on the vent . FIO2 at 60 %. PEEP is at 12 CM. CXR stable. Bibasal atelectasis. Output was good . Objective Vital Signs Date Time Temp Pulse Resp B/P Pulse Ox O2 Delivery O2 Flow Rate FiO2 08/28/16 12:00 78 08/28/16 12:00 60 08/28/16 10:00 74 08/28/16 09:50 94 60 08/28/16 08:00 60 08/28/16 08:00 73 08/28/16 07:11 93 60 08/28/16 06:00 78 08/28/16 04:00 60 08/28/16 04:00 101.5 70 20 110/54 92 105/64 08/28/16 04:00 70 08/28/16 03:50 94 60 08/28/16 02:00 71 08/28/16 00:00 99.2 74 20 123/58 92 108/65 08/28/16 00:00 60 08/28/16 00:00 74 08/27/16 23:41 92 60 08/27/16 22:00 74 08/27/16 20:12 93 60 08/27/16 20:00 99.4 77 20 115/61 93 102/63 08/27/16 20:00 77 08/27/16 20:00 60 08/27/16 18:00 88 08/27/16 16:00 60 08/27/16 16:00 99.4 85 20 122/65 98 138/82 08/27/16 16:00 85 08/27/16 15:08 89 70 08/27/16 14:20 25 08/27/16 14:00 96 I/O 08/27/16 08/27/16 08/27/16 08/28/16 08/28/16 08/28/16 07:00 15:00 23:00 07:00 15:00 23:00 Intake Total 570 ml 1268 ml 518 ml 741 ml Output Total 1645 ml 1975 ml 1905 ml 1720 ml Balance -1075 ml -707 ml -1387 ml -979 ml IV Total 570 ml 788 ml 270 ml 418 ml Tube Feeding 380 ml 248 ml 323 ml Tube Irrigant 100 ml Output Urine Total 1645 ml 1850 ml 1775 ml 1450 ml Stool Total 125 ml 130 ml 270 ml Result Diagram: 08/28/1659908/28/16 06 Objective Remarks This is an obese middle-aged white female who is sedated. She is intubated orally . HEENT: Head normocephalic. Pupils react Neck: No bruits, no thyroid enlargement, no lymphadenopathy. Chest: Decreased breath sounds.Occ wheeze and crackles Heart: Heart sounds were regular. S1-S2 no murmur, no S3. Abdomen: Soft, benign. No masses, or tenderness. Bowel sounds are active. Extremities: Mild edema . Neuro : She is sedated. Assessment and Plan Assessment and Plan IMPRESSION 1. Acute hypercapnic respiratory failure. 2. Pulmonary edema. 3. Basilar pneumonia 4. Obstructive sleep apnea syndrome 5. Hypertension 6. Hypothyroidism. 7. Obesity. Plan : 1. Cont Antibiotics. 2. Wean FIo2 to keep sat >92. 3. Nebs qid , duoneb. 4. Reduce PEEP to 10 cm 5. CPAP trial in am 6. Trach suction and lavage. 7. Tube feeds at 50 CC 8. Consider trach this week. 9. Cont Bumex bid 10. CBC, BMP in am Abimael Beck MD Aug 28, 2016 12:49
[2016-08-28] MEDS: DOCUSATE SODIUM 100 MG/10 ML UDC G-TUBE SCH ×2 (13:10→21:47)
--- NOTE | 2016-08-28 18:30 | PD.PROCEDR ---
Procedure Note Procedure Central Line Procedure Note Left subclavian 7 Tongan triple-lumen catheter Diagnosis: Severe ARDS Indications: Need for vasoactive substances, need for central pressure monitoring Consent: Written consent was obtained Anesthesia: Propofol IV Description of the Procedure: The patient was placed in the supine, mild- Trendelenburg position. The area was prepped and draped sterilely. A 19g needle was inserted under negative pressure aspiration and dark venous blood was obtained. A guidewire was inserted easily without resistance. A small incision was made using a #11 blade. Using a modified Seldinger technique, the dilator and 7 Tongan, 20 cm catheter were advanced over the guidewire without resistance. All ports were aspirated and flushed, and had brisk blood return. The line was secured at 20 cm at the skin using 2-0 silk interrupted sutures. A Biopatch and Transparent sterile dressing were applied. There were no immediate complications noted. There was minimal EBL. The patient tolerated the procedure well. Ultrasound guidance was not used for this procedure A Chest x-ray has been ordered. I personally performed the procedure. Tutu Hoffman MD Aug 28, 2016 18:30
[2016-08-28] MEDS: VANCOMYCIN INJ 1,250 MG in SODIUM CHLOR 0.9% 250 ML INJ 250 ML IV SCH (20:03)
[2016-08-28] MEDS: PRAVASTATIN SOD 20 MG TAB PO SCH (20:04)
[2016-08-29] VITALS (19 sets, daily range): BP systolic 116–138; BP diastolic 57–63; PULSE 66–85; RESP 17–22; TEMP 100.2–102.5; O2SAT 89–94
[2016-08-29] MEDS: ALBUMIN HUMAN 25% 12.5 GM/50 ML BAGP IV SCH (00:06)
[2016-08-29] MEDS: HEPARIN SODIUM - SQ 10,000 UNITS/ML VIAL SQ SCH ×4 (00:06→23:31)
[2016-08-29] MEDS: CEFEPIME INJ 1,000 MG in SODIUM CHLORIDE 0.9% INJ 100 ML IV SCH ×4 (00:06→23:30)
[2016-08-29] MEDS: PROPOFOL 1000 MG/100 ML INJ 100 ML IV SCH ×8 (00:22→23:31)
[2016-08-29] MEDS: ACETAMINOPHEN 325 MG TAB PO PRN ×2 (00:31→06:17)
[2016-08-29] MEDS: CHLORHEXIDINE GLUCONATE 2 % 1 PACK (2 CLOTHS) TOP SCH (03:27)
[2016-08-29] MEDS: RESP: ALBUTEROL 2.5 MG/IPRATROPIUM 0.5 MG NEB (SCH) INH ×5 (03:29→20:21)
[2016-08-29 03:53] LABS: HEMATOCRIT 34.8 % (35.0-46.0); MEAN CORPUSCULAR HEMOGLOBIN 28.1 PG (27.0-34.0); MEAN CORPUSCULAR HGB CONC 31.9 % (32.0-36.0); PLATELET COUNT 275 TH/MM3 (150-450); RED BLOOD COUNT 3.96 MIL/MM3 (4.00-5.30); REVIEW FLAG FINAL; WHITE BLOOD COUNT 21.2 TH/MM3 (4.0-11.0)
[2016-08-29 04:13] LABS: BICARBONATE 34.7 MEQ/L (21.0-32.0)
[2016-08-29 04:19] LABS: POTASSIUM 2.6 MEQ/L (3.5-5.1)
[2016-08-29] MEDS: oxyCODONE HCL ORAL CONC 20 MG/ML SYRINGE PO SCH ×7 (04:23→23:31)
[2016-08-29] MEDS: INSULIN NovoLIN REGULAR SUPPLEMENTAL SCALE SQ SCH ×4 (04:24→22:00)
[2016-08-29] MEDS: POTASSIUM CHLOR 40 MEQ PREMIX 100 ML IV PRN ×5 (04:24→17:14)
[2016-08-29] MEDS: LEVOTHYROXINE SODIUM 200 MCG TAB PO SCH (05:40)
[2016-08-29] MEDS: QUEtiapine FUMARATE 25 MG TAB PO SCH ×3 (05:40→22:19)
[2016-08-29] MEDS: metroNIDAZOLE 500 MG INJ 100 ML IV SCH ×4 (06:33→23:31)
--- NOTE | 2016-08-29 07:50 | HHI.CCPN ---
Subjective Remarks/Hospital Course 56-year-old morbidly obese female brought in the emergency department in respiratory distress. She was intubated by ER attending. She has been sick for about a week with symptoms consistent with UTI. She's had fevers and chills. She's been short of breath. She's had fatigue. She has had a cough and chest pain with coughing. The family reports that she's been delirious for the last 3 days. 08/15 Patient is sedated with Diprivan, Versed, Fentanyl and intubated. CTA chest showed no PE multifocal consolidation greatest in RLL. Tmax 100.6 08/16 Patient is sedated with Diprivan and Fentanyl. Afebrile. CXR this morning showed increase consolidation. 08/17 Patient remains sedated and intubated. T:100.4 On PRVC/AC RR 18, Tv 500, IT :1.0 PEEP:10, FIO2 75% 08/18 Remains sedated and intubated. Afebrile. CXR this morning unchanged bibasilar infiltrates and effusions. 08/19 Patient was placed on rotoprone bed last night for proning sedated with Diprivan, Versed and Fentnayl in addition she is on Nimbex. On PRVC/AC RR 20, TV 400, IT:1.1, PEEP:14 and FIO2 80%. Afebrile. 08/20 Patient remains sedated and intubated. Remains on PRVC/AC mode with improvements in her oxygenation on FIO2 50% from 80% yesterday and PEEP:12. 08/21 Patient remains sedated and intubated. On PRVC/AC mode with RR 20, TV 400, IT:1.1, PEEP: 12 and FIO2 50%. Afebrile. 08/22 No acute events overnight. Remains sedated, intubated and on Nimbex.. T: 99.8. On PRVC mode with PEP: 12, FIO2 50%. CXR from yesterday showed better aeration, RLL infiltrate unchanged. 08/23 Chest x-ray worsening. Methylprednisolone taper to twice a day by pulmonary. The patient's FiO2 was found to be 100% this a.m., will continue to wean. 08/24: 1 desat episode yesterday when supine. still remains prone now. no vasopressors. sedated and paralyzed. 08/25: flolan added yesterday. fio2 down to 60%. remained supine all night. still on neuromuscular blockade. net -500cc/24h. 08/26: good diuresis. remained supine. fio2 70%. weaning flolan. remains with significant respiratory support and high peep despite 6L diuresis overnight. Cr still stable. 08/27: continues with good diuresis. net negative 3L/24h. fio2 down to 55%. flolan off. still high peep. not ready for SBT. more agitated today. Cr remains stable despite aggressive diuresis. 08/28: diuresis continues. -3.3L/24h. spiked fever overnight with a jump in wbc to 16 this AM. fio2 60%, but her pulmonary improvements have plateaued at this point. still on peep 12. 08/29: net -1.7L/24h. Cr starting to rise. still spiking fevers despite vanc/ cefepime added yesterday. wbc continues to rise. clinically appears infected, although unclear source. peep 10, fio2 60%. will likely need trach. Objective Vital Signs Date Time Temp Pulse Resp B/P Pulse Ox O2 Delivery O2 Flow Rate FiO2 08/29/16 07:10 92 60 08/29/16 06:00 71 08/29/16 04:00 101.2 20 135/60 Intake and Output 08/28/16 08/28/16 08/29/16 08:00 16:00 00:00 Intake Total 643 ml 1519 ml 1087 ml Output Total 1714 ml 2499 ml 1752 ml Balance -1071 ml -980 ml -665 ml Result Diagram: 08/29/16 0315 08/29/16 0315 Imaging Last Impressions Chest X-Ray 08/21/16 0000 Signed Impressions: Service Date/Time: Sunday, August 21, 2016 07:23 - CONCLUSION: Better aeration from the prior study. Right lower lobe infiltrate is unchanged. Taco Haas Jr., MD Liver Ultrasound 08/15/16 0000 Signed Impressions: Service Date/Time: Monday, August 15, 2016 15:45 - CONCLUSION: Fatty liver and cholelithiasis. Common bile duct is dilated and common bile duct stone is not excluded. Danyel Escalante MD CT Angiography 08/15/16 0000 Signed Impressions: Service Date/Time: Monday, August 15, 2016 02:33 - CONCLUSION: 1. No evidence for pulmonary embolism. 2. Multifocal consolidation greatest in the right lower lobe and associated adenopathy. Terry Estrada MD Objective Remarks GENERAL: Patient is intubated and sedated, critically ill SKIN: Warm and dry. HEAD: Normocephalic. EYES: No scleral icterus. No injection or drainage. NECK: trachea midline. morbid obesity prevents accurate assessment of JVD. CARDIOVASCULAR: Regular rate and rhythm without murmurs, gallops, or rubs. RESPIRATORY: Breath sounds equal bilaterally. No accessory muscle use. GASTROINTESTINAL: Abdomen obese, soft, non-tender, nondistended. MUSCULOSKELETAL: No cyanosis, or edema. Neuro: RASS -2. follows commands. A/P Problem List: (1) CHF (congestive heart failure) ICD Code: I50.9 Status: Acute (2) Respiratory failure ICD Code: J96.90 Status: Acute (3) Pneumonia ICD Code: J18.9 Status: Acute Assessment and Plan 1)Acute hypercapnic and hypoxemic resp failure -ARDS 2)Pneumonia community-acquired 3)Elevated LFT 4)Hypokalemia 5)Hypothyroidism 6)Dyslipidemia 7)Mild elevated trop likely 2nd resp failure 8)Morbid obesity 9) agitated delirium 10) fever, leukocytosis Plan Neuro: fentanyl, propofol for goal RASS -2. daily sedation vacation. continue seroquel 50mg po q8h for delirium and oxycodone 10mg po q4h femi for pain. these are improving her agitation. Pulm: On PRVC/AC RR 20, TV 400, PEEP 10, IT: 1.1 and FIO2 0.6%. Decrease FIO2 as tiki. for goal spo2 > 88% Bronchodilators, d/c solumedrol, start prednisone taper. ICU vent bundle. Pulm is following- Dr. Beck no SBT today. still too hypoxic with high vent settings. she is not progressing as we would expect. she is off pathway. she will likely require tracheostomy, but fio2 and peep still too high. CV: Monitor HR and BP keep MAP>65mmg Echo showed EG 65-70% : Monitor renal function, I/O's. electrolytes replacement per protocol. hold bumex drip, as it appears that though her total body volume is still overloaded, her intravascular volume is deplete. continue diamox 500mg iv q8h for metabolic alkalosis. GI: Monitor LFT's ( trending down), on Protonix 40mg daily for GI prophylaxis US liver: Fatty liver and cholelithiasis. On TF Glucerna 1.5 @ 45ml/hr, minimal residual ID: s/p full course of broad spectrum abx. blood and sputum cx 08/15- NGTD strep pneumonia and Legionella urinary Ag negative Persistent fever. Blood cultures 08/28: NGTD Sputum culture 08/28: NGTD will send C. Diff continue Vanc/Cefepime Start Flagyl 500mg iv q6h. Add Levaquin 750mg iv q24h. Lines changed 08/28. Heme: Monitor CBC Endo: on SSI ( medium scale) for glycemic control On Synthroid 200mcg daily. TSH 1.37 GI prophylaxis- Protonix 40mg daily DVT prophylaxis- On Heparin SQ Lines: - Left SC TLC 08/28 - Miller my billing statement This patient remains critically ill with one or more organ systems which are or may become a threat to life. I have spent in excess of 33 minutes discontinuously in the care and management of this patient. This time is exclusive of procedures, and includes, but is not limited to, evaluation of the patient, review of the medical record, discussions with family, consultants, nursing staff, or respiratory therapy, and documentation in the medical record. Problem Qualifiers (1) CHF (congestive heart failure): Qualified Code: I50.9 - Acute congestive heart failure, unspecified congestive heart failure type (2) Respiratory failure: Qualified Code: J96.02 - Acute respiratory failure with hypercapnia (3) Pneumonia: Qualified Code: J18.9 - Pneumonia of both lungs due to infectious organism, unspecified part of lung Tutu Hoffman MD Aug 29, 2016 07:49
[2016-08-29] MEDS: LEVOFLOXACIN 750 MG PREMIX INJ 150 ML IV SCH (08:00)
[2016-08-29] MEDS: PANTOPRAZOLE SODIUM 40 MG VIAL IV PUSH SCH (08:54)
[2016-08-29] MEDS: BENEPROTEIN POWDER 1 PACK G-TUBE SCH ×3 (08:55→17:34)
[2016-08-29] MEDS: ARTIFICIAL TEARS OPTH SOLN 15 ML BTL EACH EYE SCH ×3 (08:55→17:36)
[2016-08-29] MEDS: VANCOMYCIN INJ 1,250 MG in SODIUM CHLOR 0.9% 250 ML INJ 250 ML IV SCH ×2 (08:56→19:37)
[2016-08-29] MEDS: SODIUM CHLORIDE 0.9% FLUSH 10 ML FLUSH IV FLUSH SCH ×2 (09:00→19:38)
[2016-08-29] MEDS: predniSONE 5 MG/5 ML CUP PO SCH (11:21)
[2016-08-29] MEDS: DOCUSATE SODIUM 100 MG/10 ML UDC G-TUBE SCH ×2 (11:21→22:19)
[2016-08-29 11:27] LABS: C. DIFF EPI 027 PRESUMPTIVE NEGATIVE (NEGATIVE)
--- NOTE | 2016-08-29 12:12 | HHI.PR ---
Subjective Remarks Sedated on the vent . FIO2 at 50 %. PEEP is at 12 CM. CXR with. Bibasal atelectasis. Output was good .Pseudomonas on trach culture Objective Vital Signs Date Time Temp Pulse Resp B/P Pulse Ox O2 Delivery O2 Flow Rate FiO2 08/29/16 10:14 94 60 08/29/16 10:00 74 08/29/16 08:00 68 08/29/16 08:00 60 08/29/16 07:10 92 60 08/29/16 06:00 71 08/29/16 04:40 94 60 08/29/16 04:00 101.2 72 20 135/60 91 08/29/16 04:00 60 08/29/16 04:00 72 08/29/16 02:27 94 60 08/29/16 02:00 69 08/29/16 00:00 102.5 72 22 138/62 90 08/29/16 00:00 60 08/29/16 00:00 72 08/28/16 22:00 69 08/28/16 20:00 60 08/28/16 20:00 100.4 76 21 137/65 94 Arterial Line 08/28/16 20:00 76 08/28/16 19:12 96 60 08/28/16 18:00 77 08/28/16 16:42 91 60 08/28/16 16:00 71 08/28/16 16:00 60 08/28/16 16:00 101.8 79 17 128/58 92 08/28/16 14:00 79 08/28/16 12:48 92 60 I/O 08/28/16 08/28/16 08/28/16 08/29/16 08/29/16 08/29/16 07:00 15:00 23:00 07:00 15:00 23:00 Intake Total 741 ml 1519 ml 1087 ml 838 ml Output Total 1807 ml 2278 ml 1905 ml 950 ml Balance -1066 ml -759 ml -818 ml -112 ml IV Total 418 ml 1148 ml 676 ml 469 ml Tube Feeding 323 ml 371 ml 291 ml 249 ml Other 120 ml 120 ml Output Urine Total 1537 ml 1878 ml 1505 ml 850 ml Stool Total 270 ml 400 ml 400 ml 100 ml Result Diagram: 08/29/1631408/29/165 Objective Remarks This is an obese middle-aged white female who is sedated. She is intubated orally . HEENT: Head normocephalic. Pupils react Neck: No bruits, no thyroid enlargement, no lymphadenopathy. Chest: Decreased breath sounds.Occ wheeze and crackles. Heart: Heart sounds were regular. S1-S2 no murmur, no S3. Abdomen: Soft, benign. No masses, or tenderness. Bowel sounds are active. Extremities: No edema . Neuro : She is sedated. Assessment and Plan Assessment and Plan IMPRESSION 1. Acute hypercapnic respiratory failure. 2. Pulmonary edema. 3. Basilar pneumonia 4. Obstructive sleep apnea syndrome 5. Hypertension 6. Hypothyroidism. 7. Obesity. Plan : 1. Cont Antibiotics.Zosyn /levaquin 2. Wean FIo2 to keep sat >92. 3. Nebs qid , duoneb. 4. Reduce sedation. 5. CPAP trial in am 6. Trach suction and lavage. 7. Tube feeds at 50 CC 8. Consider trach this week. 9. Cont Bumex bid 10. CBC, BMP in am Abimael Beck MD Aug 29, 2016 12:12
[2016-08-29 13:20] LABS: BICARBONATE 35.1 MEQ/L (21.0-32.0); MAGNESIUM 2.9 MG/DL (1.5-2.5)
[2016-08-29] MEDS: fentaNYL DRIP 250 ML IV SCH (17:34)
--- NOTE | 2016-08-29 18:25 | RADRPT ---
EXAM DATE/TIME: 08/29/2016 15:21 [facility] COMPARISON: No previous studies available for comparison. INDICATIONS : Gallstones. MEDICAL HISTORY : Hypothyroidism. Hypercholesterolemia. Hypertension. Apnea. SURGICAL HISTORY : Hysterectomy. Tubal ligation. ENCOUNTER: Initial ACUITY: 1 day PAIN SCORE: Nonresponsive. LOCATION: Right upper quadrant MEASUREMENTS: LIVER: 21.2 cm length COMMON DUCT: 5 mm RIGHT KIDNEY: 13.4 x 6.1 x 6.0 cm FINDINGS: LIVER: Mildly heterogeneous echotexture without focal lesion or ductal dilatation. Hepatopedal flow seen in the portal vein. COMMON DUCT: No intraluminal mass or stone visualized. GALLBLADDER: There is an echogenic focus with in the gallbladder near the neck which measures 1.4 x 1.0 cm suggest enzo of a stone. However, despite the large size, there is no shadowing on any of the views. Gallbla dder wall is normal thickness. No pericholecystic fluid. PANCREAS: The visualized portions are within normal limits. RIGHT KIDNEY: No evidence of hydronephrosis, stone, or mass. CONCLUSION: 1. Hepatomegaly with heterogeneous echotexture throughout the liver. 2. There is a large echogenic area near the neck of the gallbladder suggestive of a stone, but despit e its large size, demonstrates no acoustic shadowing in any of the views. Taco Davidson MD on August 29, 2016 at 18:20 Board Certified Radiologist. This report was verified electronically.
[2016-08-29] MEDS ORDERED: PHARMACY ORDERED LAB ONE (19:45)
[2016-08-29] MEDS: PRAVASTATIN SOD 20 MG TAB PO SCH (20:01)
[2016-08-29 20:40] LABS: BICARBONATE 31.5 MEQ/L (21.0-32.0); MAGNESIUM 2.9 MG/DL (1.5-2.5); POTASSIUM 3.7 MEQ/L (3.5-5.1)
[2016-08-29 20:57] LABS: VANCOMYCIN TROUGH 15.3 MCG/ML (5.0-10.0)
[2016-08-30] VITALS (20 sets, daily range): BP systolic 119–137; BP diastolic 60–67; PULSE 58–80; RESP 20–28; TEMP 99–99.7; O2SAT 93–97
[2016-08-30] MEDS: RESP: ALBUTEROL 2.5 MG/IPRATROPIUM 0.5 MG NEB (SCH) INH ×7 (01:03→23:09)
[2016-08-30] MEDS: CHLORHEXIDINE GLUCONATE 2 % 1 PACK (2 CLOTHS) TOP SCH (02:22)
[2016-08-30 02:49] LABS: BICARBONATE 31.4 MEQ/L (21.0-32.0); POTASSIUM 3.4 MEQ/L (3.5-5.1)
[2016-08-30] MEDS: POTASSIUM CHLOR 40 MEQ PREMIX 100 ML IV PRN (03:00)
[2016-08-30] MEDS: PROPOFOL 1000 MG/100 ML INJ 100 ML IV SCH ×5 (03:41→21:40)
[2016-08-30] MEDS: INSULIN NovoLIN REGULAR SUPPLEMENTAL SCALE SQ SCH ×4 (04:00→20:50)
[2016-08-30] MEDS: oxyCODONE HCL ORAL CONC 20 MG/ML SYRINGE PO SCH ×5 (04:26→20:50)
[2016-08-30] MEDS: LEVOTHYROXINE SODIUM 200 MCG TAB PO SCH (05:29)
[2016-08-30] MEDS: QUEtiapine FUMARATE 25 MG TAB PO SCH ×3 (05:29→20:49)
[2016-08-30] MEDS: metroNIDAZOLE 500 MG INJ 100 ML IV SCH (05:30)
[2016-08-30 06:02] LABS: HEMATOCRIT 31.7 % (35.0-46.0); MEAN CELL VOLUME 87.5 FL (80.0-100.0); PLATELET COUNT 247 TH/MM3 (150-450); RED BLOOD COUNT 3.62 MIL/MM3 (4.00-5.30); RED CELL DISTRIBUTION WIDTH 17.1 % (11.6-17.2); REVIEW FLAG FINAL; WHITE BLOOD COUNT 16.7 TH/MM3 (4.0-11.0)
[2016-08-30 06:20] LABS: BICARBONATE 29.8 MEQ/L (21.0-32.0); MAGNESIUM 3.1 MG/DL (1.5-2.5); POTASSIUM 3.7 MEQ/L (3.5-5.1)
[2016-08-30] MEDS: LEVOFLOXACIN 750 MG PREMIX INJ 150 ML IV SCH (08:00)
[2016-08-30] MEDS: predniSONE 5 MG/5 ML CUP PO SCH (08:07)
[2016-08-30] MEDS: CEFEPIME INJ 1,000 MG in SODIUM CHLORIDE 0.9% INJ 100 ML IV SCH ×3 (08:08→23:31)
[2016-08-30] MEDS: HEPARIN SODIUM - SQ 10,000 UNITS/ML VIAL SQ SCH ×3 (08:09→23:31)
[2016-08-30] MEDS: PANTOPRAZOLE SODIUM 40 MG VIAL IV PUSH SCH (08:09)
[2016-08-30] MEDS: ARTIFICIAL TEARS OPTH SOLN 15 ML BTL EACH EYE SCH ×3 (08:09→18:02)
[2016-08-30] MEDS: SODIUM CHLORIDE 0.9% FLUSH 10 ML FLUSH IV FLUSH SCH ×2 (08:09→20:48)
[2016-08-30] MEDS: BENEPROTEIN POWDER 1 PACK G-TUBE SCH ×3 (08:13→18:00)
--- NOTE | 2016-08-30 09:58 | HHI.CCPN ---
Subjective Remarks/Hospital Course 56-year-old morbidly obese female brought in the emergency department in respiratory distress. She was intubated by ER attending. She has been sick for about a week with symptoms consistent with UTI. She's had fevers and chills. She's been short of breath. She's had fatigue. She has had a cough and chest pain with coughing. The family reports that she's been delirious for the last 3 days. 08/15 Patient is sedated with Diprivan, Versed, Fentanyl and intubated. CTA chest showed no PE multifocal consolidation greatest in RLL. Tmax 100.6 08/16 Patient is sedated with Diprivan and Fentanyl. Afebrile. CXR this morning showed increase consolidation. 08/17 Patient remains sedated and intubated. T:100.4 On PRVC/AC RR 18, Tv 500, IT :1.0 PEEP:10, FIO2 75% 08/18 Remains sedated and intubated. Afebrile. CXR this morning unchanged bibasilar infiltrates and effusions. 08/19 Patient was placed on rotoprone bed last night for proning sedated with Diprivan, Versed and Fentnayl in addition she is on Nimbex. On PRVC/AC RR 20, TV 400, IT:1.1, PEEP:14 and FIO2 80%. Afebrile. 08/20 Patient remains sedated and intubated. Remains on PRVC/AC mode with improvements in her oxygenation on FIO2 50% from 80% yesterday and PEEP:12. 08/21 Patient remains sedated and intubated. On PRVC/AC mode with RR 20, TV 400, IT:1.1, PEEP: 12 and FIO2 50%. Afebrile. 08/22 No acute events overnight. Remains sedated, intubated and on Nimbex.. T: 99.8. On PRVC mode with PEP: 12, FIO2 50%. CXR from yesterday showed better aeration, RLL infiltrate unchanged. 08/23 Chest x-ray worsening. Methylprednisolone taper to twice a day by pulmonary. The patient's FiO2 was found to be 100% this a.m., will continue to wean. 08/24: 1 desat episode yesterday when supine. still remains prone now. no vasopressors. sedated and paralyzed. 08/25: flolan added yesterday. fio2 down to 60%. remained supine all night. still on neuromuscular blockade. net -500cc/24h. 08/26: good diuresis. remained supine. fio2 70%. weaning flolan. remains with significant respiratory support and high peep despite 6L diuresis overnight. Cr still stable. 08/27: continues with good diuresis. net negative 3L/24h. fio2 down to 55%. flolan off. still high peep. not ready for SBT. more agitated today. Cr remains stable despite aggressive diuresis. 08/28: diuresis continues. -3.3L/24h. spiked fever overnight with a jump in wbc to 16 this AM. fio2 60%, but her pulmonary improvements have plateaued at this point. still on peep 12. 08/29: net -1.7L/24h. Cr starting to rise. still spiking fevers despite vanc/ cefepime added yesterday. wbc continues to rise. clinically appears infected, although unclear source. peep 10, fio2 60%. will likely need trach. 08/30: net +800cc, but Cr downtrending. appears clinically euvolemic. fever curve downtrending. wbc downtrending. on 40% fio2, peep 8 today. still following commands. Objective Vital Signs Date Time Temp Pulse Resp B/P Pulse Ox O2 Delivery O2 Flow Rate FiO2 08/30/16 08:00 59 08/30/16 08:00 40 08/30/16 08:00 99.7 23 119/60 96 Intake and Output 08/29/16 08/29/16 08/30/16 08:00 16:00 00:00 Intake Total 838 ml 1667 ml 1218 ml Output Total 1156 ml 1305 ml 885 ml Balance -318 ml 362 ml 333 ml Result Diagram: 08/30/16 0540 08/30/16 0540 Imaging Last Impressions Chest X-Ray 08/21/16 0000 Signed Impressions: Service Date/Time: Sunday, August 21, 2016 07:23 - CONCLUSION: Better aeration from the prior study. Right lower lobe infiltrate is unchanged. Taco Haas Jr., MD Liver Ultrasound 08/15/16 0000 Signed Impressions: Service Date/Time: Monday, August 15, 2016 15:45 - CONCLUSION: Fatty liver and cholelithiasis. Common bile duct is dilated and common bile duct stone is not excluded. Danyel Escalante MD CT Angiography 08/15/16 0000 Signed Impressions: Service Date/Time: Monday, August 15, 2016 02:33 - CONCLUSION: 1. No evidence for pulmonary embolism. 2. Multifocal consolidation greatest in the right lower lobe and associated adenopathy. Terry Estrada MD Objective Remarks GENERAL: Patient is intubated and sedated, critically ill SKIN: Warm and dry. HEAD: Normocephalic. EYES: No scleral icterus. No injection or drainage. NECK: trachea midline. morbid obesity prevents accurate assessment of JVD. CARDIOVASCULAR: Regular rate and rhythm without murmurs, gallops, or rubs. RESPIRATORY: Breath sounds equal bilaterally. No accessory muscle use. GASTROINTESTINAL: Abdomen obese, soft, non-tender, nondistended. MUSCULOSKELETAL: No cyanosis, or edema. Neuro: RASS -2. follows commands. A/P Problem List: (1) CHF (congestive heart failure) ICD Code: I50.9 Status: Acute (2) Respiratory failure ICD Code: J96.90 Status: Acute (3) Pneumonia ICD Code: J18.9 Status: Acute Assessment and Plan 1)Acute hypercapnic and hypoxemic resp failure -ARDS 2)Pneumonia community-acquired 3)Elevated LFT 4)Hypokalemia 5)Hypothyroidism 6)Dyslipidemia 7)Mild elevated trop likely 2nd resp failure 8)Morbid obesity 9) agitated delirium 10) fever, leukocytosis Plan Neuro: fentanyl, propofol for goal RASS -2. daily sedation vacation. continue seroquel 50mg po q8h for delirium and oxycodone 10mg po q4h femi for pain. Pulm: On PRVC/AC RR 20, TV 400, PEEP 8, IT: 1.1 and FIO2 0.6%. Decrease FIO2 as tiki. for goal spo2 > 88% Bronchodilators, d/c solumedrol, prednisone taper. ICU vent bundle. Pulm is following- Dr. Beck We will attempt SBT today. If she fails, then we will talk about pursuing tracheostomy. CV: Monitor HR and BP keep MAP>65mmg Echo showed EG 65-70% : Monitor renal function, I/O's. electrolytes replacement per protocol. clinically euvolemic continue diamox 500mg iv q8h for metabolic alkalosis. GI: Monitor LFT's ( trending down), on Protonix 40mg daily for GI prophylaxis US liver: Fatty liver and cholelithiasis. On TF Glucerna 1.5 @ 45ml/hr, minimal residual ID: s/p full course of broad spectrum abx. blood and sputum cx 08/15- NGTD strep pneumonia and Legionella urinary Ag negative Blood cultures 08/28: NGTD Sputum culture 08/28: Pseudomonas, sensitivities pending. CDiff negative 08/28. d/c vanc. d/c flagyl. continue cefepime and levaquin until sensitivities return. Lines changed 08/28. Heme: Monitor CBC Endo: on SSI ( medium scale) for glycemic control On Synthroid 200mcg daily. TSH 1.37 GI prophylaxis- Protonix 40mg daily DVT prophylaxis- On Heparin SQ Lines: - Left SC TLC 08/28 - Miller my billing statement This patient remains critically ill with one or more organ systems which are or may become a threat to life. I have spent in excess of 31 minutes discontinuously in the care and management of this patient. This time is exclusive of procedures, and includes, but is not limited to, evaluation of the patient, review of the medical record, discussions with family, consultants, nursing staff, or respiratory therapy, and documentation in the medical record. Problem Qualifiers (1) CHF (congestive heart failure): Qualified Code: I50.9 - Acute congestive heart failure, unspecified congestive heart failure type (2) Respiratory failure: Qualified Code: J96.02 - Acute respiratory failure with hypercapnia (3) Pneumonia: Qualified Code: J18.9 - Pneumonia of both lungs due to infectious organism, unspecified part of lung Tutu Hoffman MD Aug 30, 2016 09:58
[2016-08-30] MEDS: DOCUSATE SODIUM 100 MG/10 ML UDC G-TUBE SCH ×2 (10:54→23:30)
[2016-08-30] MEDS: fentaNYL DRIP 250 ML IV SCH ×2 (18:01→21:41)
--- NOTE | 2016-08-30 19:04 | HHI.PR ---
Subjective Remarks Sedated on the vent . FIO2 at 40 %. PEEP is at 8 CM. CXR with. Bibasal atelectasis. Output was good .Pseudomonas on trach culture, and on antibiotics Objective Vital Signs Date Time Temp Pulse Resp B/P Pulse Ox O2 Delivery O2 Flow Rate FiO2 08/30/16 18:00 76 08/30/16 16:00 40 08/30/16 16:00 63 08/30/16 16:00 99.3 63 28 131/64 96 08/30/16 15:12 97 40 08/30/16 14:00 63 08/30/16 12:00 66 08/30/16 12:00 40 08/30/16 12:00 99.3 66 21 134/65 95 08/30/16 11:22 94 40 08/30/16 10:00 80 08/30/16 08:00 59 08/30/16 08:00 40 08/30/16 08:00 99.7 59 23 119/60 96 08/30/16 07:54 96 40 08/30/16 06:02 97 40 08/30/16 06:00 40 08/30/16 06:00 64 08/30/16 04:31 96 45 08/30/16 04:00 45 08/30/16 04:00 99.4 71 22 129/67 95 08/30/16 04:00 71 08/30/16 02:00 67 08/30/16 01:03 96 50 08/30/16 00:00 67 08/30/16 00:00 50 08/30/16 00:00 99.6 67 20 128/60 93 08/29/16 22:00 67 08/29/16 20:21 93 50 08/29/16 20:00 100.5 73 20 116/57 91 08/29/16 20:00 73 08/29/16 20:00 50 I/O 08/29/16 08/29/16 08/29/16 08/30/16 08/30/16 08/30/16 07:00 15:00 23:00 07:00 15:00 23:00 Intake Total 838 ml 1667 ml 1218 ml 996 ml 972 ml Output Total 1132 ml 1479 ml 735 ml 695 ml 585 ml 370 ml Balance -294 ml 188 ml 483 ml 301 ml 387 ml -370 ml IV Total 469 ml 1347 ml 1088 ml 627 ml 633 ml Tube Feeding 249 ml 320 ml 70 ml 249 ml 339 ml Other 120 ml 60 ml 120 ml Output Urine Total 1032 ml 1279 ml 635 ml 695 ml 585 ml 370 ml Stool Total 100 ml 200 ml 100 ml 0 ml # Bowel Movements 100 Result Diagram: 08/30/1640 08/30/16539 Objective Remarks This is an obese middle-aged white female who is sedated. She is intubated orally . HEENT: Head normocephalic. Pupils react, and throat clear. Neck: No bruits, no thyroid enlargement, no lymphadenopathy. Chest: Decreased breath sounds.Occ wheeze and crackles at bases. Heart: Heart sounds were regular. S1-S2 no murmur, no S3. Abdomen: Soft, benign. No masses, or tenderness. Bowel sounds are active. Extremities: No edema . Neuro : She is sedated. Assessment and Plan Assessment and Plan IMPRESSION 1. Acute hypercapnic respiratory failure. 2. Pulmonary edema. 3. Basilar pneumonia 4. Obstructive sleep apnea syndrome 5. Hypertension 6. Hypothyroidism. 7. Obesity. Plan : 1. Cont Antibiotics.Zosyn /levaquin 2. Wean FIo2 to keep sat >92. 3. Nebs qid , duoneb. 4. Reduce sedation. 5. CPAP trial for 1 hr. 6. Trach suction and lavage. 7. Tube feeds at 50 CC 8. Consider trach this week. 9. Cont Bumex 1 mg bid 10. CBC, BMP in am Abimael Beck MD Aug 30, 2016 19:04
[2016-08-30] MEDS: PRAVASTATIN SOD 20 MG TAB PO SCH (20:49)
[2016-08-31] VITALS (19 sets, daily range): BP systolic 121–160; BP diastolic 64–90; PULSE 57–86; RESP 16–29; TEMP 98.2–99.1; O2SAT 92–100
[2016-08-31] MEDS: oxyCODONE HCL ORAL CONC 20 MG/ML SYRINGE PO SCH ×6 (03:19→20:05)
[2016-08-31] MEDS: CHLORHEXIDINE GLUCONATE 2 % 1 PACK (2 CLOTHS) TOP SCH (03:20)
[2016-08-31] MEDS: RESP: ALBUTEROL 2.5 MG/IPRATROPIUM 0.5 MG NEB (SCH) INH ×6 (03:23→23:16)
[2016-08-31] MEDS: INSULIN NovoLIN REGULAR SUPPLEMENTAL SCALE SQ SCH ×4 (03:33→21:47)
[2016-08-31 04:30] LABS: HEMATOCRIT 31.6 % (35.0-46.0); MEAN CORPUSCULAR HEMOGLOBIN 28.5 PG (27.0-34.0); MEAN CORPUSCULAR HGB CONC 32.8 % (32.0-36.0); PLATELET COUNT 255 TH/MM3 (150-450); RED BLOOD COUNT 3.63 MIL/MM3 (4.00-5.30); RED CELL DISTRIBUTION WIDTH 16.8 % (11.6-17.2); REVIEW FLAG FINAL; WHITE BLOOD COUNT 10.6 TH/MM3 (4.0-11.0)
[2016-08-31 04:47] LABS: BICARBONATE 29.8 MEQ/L (21.0-32.0); POTASSIUM 3.2 MEQ/L (3.5-5.1)
[2016-08-31] MEDS: QUEtiapine FUMARATE 25 MG TAB PO SCH ×3 (05:17→21:47)
[2016-08-31] MEDS: LEVOTHYROXINE SODIUM 200 MCG TAB PO SCH (05:17)
[2016-08-31] MEDS: POTASSIUM CHLOR 40 MEQ PREMIX 100 ML IV PRN ×2 (05:27→05:30)
[2016-08-31] MEDS: LEVOFLOXACIN 750 MG PREMIX INJ 150 ML IV SCH (08:00)
[2016-08-31] MEDS ORDERED: MISC INFORMATION OTHER ONE (08:00)
[2016-08-31] MEDS: PANTOPRAZOLE SODIUM 40 MG VIAL IV PUSH SCH (08:07)
[2016-08-31] MEDS: predniSONE 5 MG/5 ML CUP PO SCH (08:07)
[2016-08-31] MEDS: CEFEPIME INJ 1,000 MG in SODIUM CHLORIDE 0.9% INJ 100 ML IV SCH (08:08)
[2016-08-31] MEDS: BENEPROTEIN POWDER 1 PACK G-TUBE SCH ×3 (08:09→17:18)
[2016-08-31] MEDS: ARTIFICIAL TEARS OPTH SOLN 15 ML BTL EACH EYE SCH ×3 (08:09→17:18)
[2016-08-31] MEDS: SODIUM CHLORIDE 0.9% FLUSH 10 ML FLUSH IV FLUSH SCH ×2 (08:09→20:04)
[2016-08-31] MEDS: PROPOFOL 1000 MG/100 ML INJ 100 ML IV SCH ×4 (09:40→21:55)
--- NOTE | 2016-08-31 09:48 | PD.CONS ---
HPI History of Present Illness This is a 56 year old who came to the ER on 08/14/16 for respiratory distress and was intubated by the ER physician. Since that time, she has remained on the mechanical ventilator. She is currently in the ICU, sedated- unable to provide any history and therefore the history has been obtained from the EMR and nursing staff. She is currently being treated for acute respiratory failure , CHF, pneumonia, hypothyroidism, and multiple electrolyte abnormalities. She has an OGT and is gettign Glucerna 1.5 at 45cc/hr via OGT as recommended by the lidar analyst. This was turned off at 8am per nursing staff in anticipation of having tracheostomy placed today at 2pm. GI was consulted for PEG tube placement. Called daughter Loree Marinelli to discuss EGD with PEG tube placement- procedure, risks, benefits and she would like to proceed. (Michelle Alba) PFSH Past Medical History Obesity Hypothyroidism Obstructive sleep apnea Past Surgical History Tubal ligation Hysterectomy (Michelle Alba) Coded Allergies: No Known Allergies (Verified , 08/14/16) Medications Allergies Coded Allergies Type Severity Reaction Last Updated Verified No Known Allergies 08/14/16 Yes Active Scripts Medications Dose Route/Sig Days Date Category Levothyroxine (Levothyroxine Sodium) 50 Mcg Tab 50 Mcg PO DAILY 08/14/16 Reported Lovastatin 20 Mg Tab 20 Mg PO HS 08/14/16 Reported Levothyroxine (Levothyroxine Sodium) 200 Mcg Tab 200 Mcg PO DAILY 08/14/16 Reported Hydrochlorothiazide 12.5 Mg Cap 12.5 Mg PO DAILY 08/14/16 Reported Family History Unable to obtain Social History Unable to obtain (Michelle Alba) Review of Systems ROS Unable to obtain (Michelle Alba) GI Exam Vitals I&O Vital Signs Date Time Temp Pulse Resp B/P Pulse Ox O2 Delivery O2 Flow Rate FiO2 08/31/16 08:00 40 08/31/16 08:00 86 08/31/16 08:00 98.2 86 29 134/67 97 08/31/16 07:37 97 40 08/31/16 06:00 83 08/31/16 04:32 92 40 08/31/16 04:00 83 08/31/16 04:00 98.9 83 16 129/90 93 08/31/16 04:00 40 08/31/16 02:00 68 08/31/16 01:32 93 40 08/31/16 00:00 40 08/31/16 00:00 75 08/31/16 00:00 98.8 75 20 122/70 94 08/30/16 22:34 93 40 08/30/16 22:00 58 08/30/16 20:00 40 08/30/16 20:00 72 08/30/16 20:00 99.0 72 24 137/66 96 08/30/16 19:26 97 40 08/30/16 18:00 76 08/30/16 16:00 40 08/30/16 16:00 63 08/30/16 16:00 99.3 63 28 131/64 96 08/30/16 15:12 97 40 08/30/16 14:00 63 08/30/16 12:00 66 08/30/16 12:00 40 08/30/16 12:00 99.3 66 21 134/65 95 08/30/16 11:22 94 40 08/30/16 10:00 80 I/O 08/30/16 08/30/16 08/30/16 08/31/16 08/31/16 08/31/16 07:00 15:00 23:00 07:00 15:00 23:00 Intake Total 996 ml 972 ml 435 ml 725 ml 60 ml Output Total 695 ml 585 ml 895 ml 365 ml 190 ml Balance 301 ml 387 ml -460 ml 360 ml -130 ml IV Total 627 ml 633 ml 210 ml 410 ml Tube Feeding 249 ml 339 ml 225 ml 315 ml 60 ml Other 120 ml Output Urine Total 695 ml 585 ml 845 ml 340 ml 190 ml Stool Total 0 ml 50 ml 25 ml # Bowel Movements 100 Laboratory Test 08/31/16 03:45 White Blood Count 10.6 TH/MM3 Red Blood Count 3.63 MIL/MM3 Hemoglobin 10.4 GM/DL Hematocrit 31.6 % Mean Corpuscular Volume 87.0 FL Mean Corpuscular Hemoglobin 28.5 PG Mean Corpuscular Hemoglobin 32.8 % Concent Red Cell Distribution Width 16.8 % Platelet Count 255 TH/MM3 Mean Platelet Volume 9.8 FL Sodium Level 141 MEQ/L Potassium Level 3.2 MEQ/L Chloride Level 104 MEQ/L Carbon Dioxide Level 29.8 MEQ/L Anion Gap 7 MEQ/L Blood Urea Nitrogen 27 MG/DL Creatinine 0.39 MG/DL Estimat Glomerular Filtration 171 ML/MIN Rate Random Glucose 107 MG/DL Calcium Level 9.0 MG/DL Date/Time Procedure Status Source Growth 08/28/16 08:55 Aerobic Blood Culture - Preliminary Resulted Blood Peripheral NO GROWTH IN 2 DAYS 08/28/16 08:55 Anaerobic Blood Culture - Preliminary Resulted Blood Peripheral NO GROWTH IN 2 DAYS 08/28/16 08:00 Gram Stain - Final Complete Sputum Endotracheal 08/28/16 08:00 Sputum Culture - Final Complete Pseudomonas Aeruginosa Physical Examination HEENT: Normocephalic; atraumatic; no jaundice. CHEST: Resp even/unlabored, diminished breath sounds. OETT to vent. CARDIAC: RRR ABDOMEN: Soft, obese, nondistended, nontender; no hepatosplenomegaly; bowel sounds are present in all four quadrants. EXTREMITIES: Generalized edema. SKIN: Normal; no rash; no jaundice. RETIREMENT ACTUARY: Sedated on vent. (Michelle Alba) Assessment and Plan Plan ASSESSMENT: - Dysphagia, FEN. In ICU being treated for acute respiratory failure, CHF, pneumonia, hypothyroidism, and multiple electrolyte abnormalities. Currently with OGT. Housing Assistant Property Manager recommends Glucerna 1.5 at 45cc/hr. Her TF was just turned off at 8am. She is scheduled for tracheostomy today 2-3pm. Unfortunately, her TF was turned off at 8am and it will be hard to schedule this to be placed today because we would be looking at after 4 today. Will schedule for Sunday. Called daughter Loree Marinelli to discuss EGD with PEG tube placement- procedure, risks, benefits and she would like to proceed. PLAN: - Plan for egd with peg tube placement - Obtain consents - Hold TF after MN - If anticoagulation restarted, hold after MN - Supportive care - Further recommendations to follow based on results of above - Pt seen and examined by Dr. Garcia and myself and this note is written on his behalf (Michelle Alba) Physician Comments Seen and examined with JINA, discussed with family at bedside. EGD/Peg tomorrow. Thank you (Kat Garcia MD) Michelle Alba Aug 31, 2016 09:48 Kat Garcia MD Aug 31, 2016 19:02
--- NOTE | 2016-08-31 11:36 | HHI.CCPN ---
Subjective Remarks/Hospital Course 56-year-old morbidly obese female brought in the emergency department in respiratory distress. She was intubated by ER attending. She has been sick for about a week with symptoms consistent with UTI. She's had fevers and chills. She's been short of breath. She's had fatigue. She has had a cough and chest pain with coughing. The family reports that she's been delirious for the last 3 days. 08/15 Patient is sedated with Diprivan, Versed, Fentanyl and intubated. CTA chest showed no PE multifocal consolidation greatest in RLL. Tmax 100.6 08/16 Patient is sedated with Diprivan and Fentanyl. Afebrile. CXR this morning showed increase consolidation. 08/17 Patient remains sedated and intubated. T:100.4 On PRVC/AC RR 18, Tv 500, IT :1.0 PEEP:10, FIO2 75% 08/18 Remains sedated and intubated. Afebrile. CXR this morning unchanged bibasilar infiltrates and effusions. 08/19 Patient was placed on rotoprone bed last night for proning sedated with Diprivan, Versed and Fentnayl in addition she is on Nimbex. On PRVC/AC RR 20, TV 400, IT:1.1, PEEP:14 and FIO2 80%. Afebrile. 08/20 Patient remains sedated and intubated. Remains on PRVC/AC mode with improvements in her oxygenation on FIO2 50% from 80% yesterday and PEEP:12. 08/21 Patient remains sedated and intubated. On PRVC/AC mode with RR 20, TV 400, IT:1.1, PEEP: 12 and FIO2 50%. Afebrile. 08/22 No acute events overnight. Remains sedated, intubated and on Nimbex.. T: 99.8. On PRVC mode with PEP: 12, FIO2 50%. CXR from yesterday showed better aeration, RLL infiltrate unchanged. 08/23 Chest x-ray worsening. Methylprednisolone taper to twice a day by pulmonary. The patient's FiO2 was found to be 100% this a.m., will continue to wean. 08/24: 1 desat episode yesterday when supine. still remains prone now. no vasopressors. sedated and paralyzed. 08/25: flolan added yesterday. fio2 down to 60%. remained supine all night. still on neuromuscular blockade. net -500cc/24h. 08/26: good diuresis. remained supine. fio2 70%. weaning flolan. remains with significant respiratory support and high peep despite 6L diuresis overnight. Cr still stable. 08/27: continues with good diuresis. net negative 3L/24h. fio2 down to 55%. flolan off. still high peep. not ready for SBT. more agitated today. Cr remains stable despite aggressive diuresis. 08/28: diuresis continues. -3.3L/24h. spiked fever overnight with a jump in wbc to 16 this AM. fio2 60%, but her pulmonary improvements have plateaued at this point. still on peep 12. 08/29: net -1.7L/24h. Cr starting to rise. still spiking fevers despite vanc/ cefepime added yesterday. wbc continues to rise. clinically appears infected, although unclear source. peep 10, fio2 60%. will likely need trach. 08/30: net +800cc, but Cr downtrending. appears clinically euvolemic. fever curve downtrending. wbc downtrending. on 40% fio2, peep 8 today. still following commands. 08/31: failed SBT after only 45 minutes yesterday. intubated for > 2 weeks at this point. will attempt to pursue trach/peg today. will continue with pulmonary strengthening. daily SBTs. Objective Vital Signs Date Time Temp Pulse Resp B/P Pulse Ox O2 Delivery O2 Flow Rate FiO2 08/31/16 11:11 99 40 08/31/16 08:00 86 08/31/16 08:00 98.2 29 134/67 Intake and Output 08/30/16 08/30/16 08/31/16 08:00 16:00 00:00 Intake Total 996 ml 972 ml 620 ml Output Total 620 ml 760 ml 720 ml Balance 376 ml 212 ml -100 ml Result Diagram: 08/31/16 0345 08/31/16 0345 Imaging Last Impressions Chest X-Ray 08/21/16 0000 Signed Impressions: Service Date/Time: Sunday, August 21, 2016 07:23 - CONCLUSION: Better aeration from the prior study. Right lower lobe infiltrate is unchanged. Taco Haas Jr., MD Liver Ultrasound 08/15/16 0000 Signed Impressions: Service Date/Time: Monday, August 15, 2016 15:45 - CONCLUSION: Fatty liver and cholelithiasis. Common bile duct is dilated and common bile duct stone is not excluded. Danyel Escalante MD CT Angiography 08/15/16 0000 Signed Impressions: Service Date/Time: Monday, August 15, 2016 02:33 - CONCLUSION: 1. No evidence for pulmonary embolism. 2. Multifocal consolidation greatest in the right lower lobe and associated adenopathy. Terry Estrada MD Objective Remarks GENERAL: Patient is intubated and sedated, critically ill SKIN: Warm and dry. HEAD: Normocephalic. EYES: No scleral icterus. No injection or drainage. NECK: trachea midline. morbid obesity prevents accurate assessment of JVD. CARDIOVASCULAR: Regular rate and rhythm without murmurs, gallops, or rubs. RESPIRATORY: Breath sounds equal bilaterally. No accessory muscle use. GASTROINTESTINAL: Abdomen obese, soft, non-tender, nondistended. MUSCULOSKELETAL: No cyanosis, or edema. Neuro: RASS -2. follows commands. A/P Problem List: (1) CHF (congestive heart failure) ICD Code: I50.9 Status: Acute (2) Respiratory failure ICD Code: J96.90 Status: Acute (3) Pneumonia ICD Code: J18.9 Status: Acute Assessment and Plan 1)Acute hypercapnic and hypoxemic resp failure -ARDS 2)Pneumonia community-acquired 3)Elevated LFT 4)Hypokalemia 5)Hypothyroidism 6)Dyslipidemia 7)Mild elevated trop likely 2nd resp failure 8)Morbid obesity 9) agitated delirium 10) fever, leukocytosis Plan Neuro: fentanyl, propofol for goal RASS -2. daily sedation vacation. continue seroquel 50mg po q8h for delirium and oxycodone 10mg po q4h femi for pain. Pulm: On PRVC/AC RR 20, TV 400, PEEP 8, IT: 1.1 and FIO2 0.4%. Decrease FIO2 as tiki. for goal spo2 > 88% Bronchodilators, prednisone taper. ICU vent bundle. Pulm is following- Dr. Beck consult gen surg for trach. may need palliative's assistance in clarifying goals of care with the family. CV: Monitor HR and BP keep MAP>65mmg Echo showed EG 65-70% : Monitor renal function, I/O's. electrolytes replacement per protocol. clinically euvolemic continue diamox 500mg iv q8h for metabolic alkalosis. GI: Monitor LFT's ( trending down), on Protonix 40mg daily for GI prophylaxis US liver: Fatty liver and cholelithiasis. On TF Glucerna 1.5 @ 45ml/hr, minimal residual consult GI for PEG tube placement. ID: s/p full course of broad spectrum abx. blood and sputum cx 08/15- NGTD strep pneumonia and Legionella urinary Ag negative Blood cultures 08/28: NGTD Sputum culture 08/28: Pseudomonas CDiff negative 08/28. Lines changed 08/28. d/c Cefepime continue Levaquin 750mg iv q24h for a full 7 day course (anticipated stop date 09/04) for Pseudomonas VAP Heme: Monitor CBC Endo: on SSI ( medium scale) for glycemic control On Synthroid 200mcg daily. TSH 1.37 GI prophylaxis- Protonix 40mg daily DVT prophylaxis- On Heparin SQ Lines: - Left SC TLC 08/28 - [facility] Case management to start LTAC work-up. With trach/PEG, she is nearing the end of her acute medical stay. Problem Qualifiers (1) CHF (congestive heart failure): Qualified Code: I50.9 - Acute congestive heart failure, unspecified congestive heart failure type (2) Respiratory failure: Qualified Code: J96.02 - Acute respiratory failure with hypercapnia (3) Pneumonia: Qualified Code: J18.9 - Pneumonia of both lungs due to infectious organism, unspecified part of lung Tutu Hoffman MD Aug 31, 2016 11:36
[2016-08-31] MEDS: DOCUSATE SODIUM 100 MG/10 ML UDC G-TUBE SCH (12:45)
--- NOTE | 2016-08-31 17:28 | PD.CONS ---
cc: Scotty Ortega MD HPI Service General Surgery Consult Requested By Dr. Hoffman Reason for Consult Percutaneous trach placement Primary Care Physician Unknown History of Present Illness This is a 56-year-old morbidly obese female who came to the emergency room in respiratory distress. She was intubated in the emergency department. Per reports, the family states the patient has been delirious for the past 3 days. She was out of breath and fatigue. She had subjective fevers. During this hospitalization she has required high ventilator settings. She was placed on a RotoProne bed. She has not been able to wean from the ventilator. A General Surgery consultation has been requested for placement of a percutaneous tracheostomy. Review of Systems ROS Limitations: Clinical Condition, Intubated Past Family Social History Past Medical History Hypothyroidism Dyslipidemia Obstructive sleep apnea Morbidly obese Past Surgical History Tubal ligation Hysterectomy Reported Medications See chart Allergies: Coded Allergies: No Known Allergies (Verified , 08/14/16) Active Ordered Medications Current Medications Medications (Trade) Dose Ordered Sig/Josephine Route Start Time Stop Time Status Last Admin (Synthroid) 200 mcg DAILY@06 PO 08/15/16 06:00 08/31/16 05:17 (Pravachol) 20 mg HS PO 08/15/16 21:00 08/30/16 20:49 (NS Flush) 2 ml UNSCH PRN IVF 08/14/16 23:15 08/27/16 08:39 (NS Flush) 2 ml BID IV FLUSH 08/15/16 09:00 08/31/16 08:09 (Tylenol) 650 mg Q6H PRN PO 08/14/16 23:15 08/29/16 06:17 (Morphine Inj) 2 mg Q2H PRN IV 08/14/16 23:15 (Tears Naturale Opth Soln) 1 drop TID EACH EYE 08/15/16 09:00 08/31/16 12:45 (Zofran Inj) 4 mg Q6H PRN IV 08/14/16 23:15 (Colace Liq) 100 mg Q12H G-TUBE 08/14/16 23:15 08/31/16 12:45 Miscellaneous Information 1 Q361D XX 08/14/16 23:15 (Chlorhexidine 2% Cloth) Taper DAILY@04 TOP 08/15/16 04:00 08/11/17 03:59 08/21/16 03:10 Chlorhexidine Gluconate 3 pack 3 pack UNSCH PRN TOP 08/14/16 23:15 (Diprivan 1000 Mg/100ml Inj) 100 ml @ 0 mls/hr TITRATE IV 08/14/16 23:15 08/31/16 12:45 Protein 2 pack 2 pack TID G-TUBE 08/15/16 09:00 08/31/16 12:45 Fentanyl Citrate 250 ml @ 0 mls/hr TITRATE IV 08/14/16 23:15 08/30/16 21:41 Potassium Chloride 100 ml @ 50 mls/hr Q2H PRN IV 08/15/16 08:15 08/31/16 05:30 Potassium Chloride 100 ml @ 50 mls/hr Q2H PRN IV 08/15/16 08:15 08/27/16 18:34 Potassium Chloride 100 ml @ 25 mls/hr UNSCH PRN IV 08/15/16 08:15 08/30/16 03:00 Potassium Chloride 100 ml @ 50 mls/hr Q2H PRN IV 08/15/16 08:15 08/25/16 10:59 (Magnesium Sulfate Inj/NS Inj) 100 ml @ 50 mls/hr UNSCH PRN IV 08/15/16 08:15 Magnesium Oxide 800 mg 800 mg UNSCH PRN PO 08/15/16 08:15 (Magnesium Sulfate Inj/NS Inj) 100 ml @ 50 mls/hr UNSCH PRN IV 08/15/16 08:15 Potassium Phosphate 2000 mg 2,000 mg Q4H PRN PO 08/15/16 08:15 (Sodium Phosphate Inj/NS 250 ml Inj) 250 ml @ 42 mls/hr UNSCH PRN IV 08/15/16 08:15 Potassium Phosphate 2000 mg 2,000 mg UNSCH PRN PO/TUBE 08/15/16 08:15 (Potassium Phosphate Inj/NS 250 ml Inj) 260 ml @ 42 mls/hr UNSCH PRN IV 08/15/16 08:15 08/16/16 08:01 (Protonix Inj) 40 mg DAILY IV PUSH 08/15/16 09:44 08/31/16 08:07 (D50w (Vial) Inj) 25 ml UNSCH PRN IV PUSH 08/16/16 09:15 (NovoLIN R SUPPLEMENTAL SCALE) 1 Q6H SQ 08/16/16 10:00 08/30/16 16:00 (Heparin Inj) 5,000 units Q8H SQ 08/17/16 16:00 08/30/16 23:31 (SEROquel) 50 mg Q8HR PO 08/27/16 14:00 08/31/16 15:44 (Roxicodone Intensol Liq) 10 mg Q4HR PO 08/27/16 10:15 08/31/16 15:44 Acetazolamide Sodium 500 mg 500 mg Q8H IV PUSH 08/28/16 10:00 08/31/16 09:40 (Levaquin 750 Mg Premix Inj) 150 ml @ 100 mls/hr Q24H IV 08/29/16 08:00 09/04/16 09:00 08/31/16 08:00 (predniSONE LIQ) 20 mg Taper DAILY PO 08/29/16 09:00 09/03/16 08:59 08/31/16 08:07 Family History Non-obtainable Social History Per chart positive tobacco use Unobtainable information about EtOH use Unobtainable information about illicit drug use Physical Exam Vital Signs Vital Signs Date Time Temp Pulse Resp B/P Pulse Ox O2 Delivery O2 Flow Rate FiO2 08/31/16 16:00 59 08/31/16 15:21 99 40 08/31/16 14:00 65 08/31/16 13:53 40 08/31/16 12:00 40 08/31/16 12:00 80 08/31/16 12:00 98.6 80 29 160/72 98 08/31/16 11:11 99 40 08/31/16 10:00 77 08/31/16 08:00 40 08/31/16 08:00 86 08/31/16 08:00 98.2 86 29 134/67 97 08/31/16 07:37 97 40 08/31/16 06:00 83 08/31/16 04:32 92 40 08/31/16 04:00 83 08/31/16 04:00 98.9 83 16 129/90 93 08/31/16 04:00 40 08/31/16 02:00 68 08/31/16 01:32 93 40 08/31/16 00:00 40 08/31/16 00:00 75 08/31/16 00:00 98.8 75 20 122/70 94 08/30/16 22:34 93 40 08/30/16 22:00 58 08/30/16 20:00 40 08/30/16 20:00 72 08/30/16 20:00 99.0 72 24 137/66 96 08/30/16 19:26 97 40 08/30/16 18:00 76 Physical Exam GENERAL: A 56-year-old morbidly obese female resting in bed on ventilator. SKIN: Warm and dry. HEAD: Atraumatic. Normocephalic. EYES: Pupils equal and round. No scleral icterus. No injection or drainage. ENT: No nasal bleeding or discharge. Mucous membranes pink and moist. NECK: Trachea midline. Obese neck. Palpable trachea. CARDIOVASCULAR: Regular rate and rhythm. RESPIRATORY: No accessory muscle use. Clear to auscultation. Breath sounds equal bilaterally. GASTROINTESTINAL: Abdomen soft, non-tender, nondistended. . MUSCULOSKELETAL: Extremities without clubbing, cyanosis, or edema. No obvious deformities. NEUROLOGICAL: Sedated on mechanical ventilation. PSYCHIATRIC: Unable to obtain due to clinical condition. Laboratory Laboratory Tests Test 08/31/16 03:45 White Blood Count 10.6 Red Blood Count 3.63 Hemoglobin 10.4 Hematocrit 31.6 Mean Corpuscular Volume 87.0 Mean Corpuscular Hemoglobin 28.5 Mean Corpuscular Hemoglobin 32.8 Concent Red Cell Distribution Width 16.8 Platelet Count 255 Mean Platelet Volume 9.8 Sodium Level 141 Potassium Level 3.2 Chloride Level 104 Carbon Dioxide Level 29.8 Anion Gap 7 Blood Urea Nitrogen 27 Creatinine 0.39 Estimat Glomerular Filtration 171 Rate Random Glucose 107 Calcium Level 9.0 Date/Time Procedure Status Source Growth 08/28/16 08:55 Aerobic Blood Culture - Preliminary Resulted Blood Peripheral NO GROWTH IN 3 DAYS 08/28/16 08:55 Anaerobic Blood Culture - Preliminary Resulted Blood Peripheral NO GROWTH IN 3 DAYS 08/28/16 08:00 Gram Stain - Final Complete Sputum Endotracheal 08/28/16 08:00 Sputum Culture - Final Complete Pseudomonas Aeruginosa Result Diagram: 08/31/16 0345 08/31/16 0345 Assessment and Plan Assessment and Plan This is a 56-year-old female with ventilator-dependent respiratory failure; in need of percutaneous tracheostomy placement General Surgery plan to place percutaneous tracheostomy when family agrees and signs consent At that time anticoagulation with need to be held in NPO status Obtain consent General Surgery will be available for placement of percutaneous tracheostomy tube at the bedside when family agrees I attempted to call daughter Loree ([phone]); no answer Discussed with Dr. Hoffman Thank you for allowing us to participate in Ms. rOtega's care General Surgery will follow along with you Attending Note - Dr. Ortega Patient morbidly obese; seen and examined Neck should be thin enough to do bedside trach Will proceed once consent obtained. The exam, history, and the medical decision-making described in the above note were completed with the assistance of the mid-level provider. I reviewed and agree with the findings presented. I attest that I had a [id number] encounter with the patient on the same day, and personally performed and documented my assessment and findings in the medical record. Discussed Condition With Kalyani Knutson Dr. Aug 31, 2016 17:28 Scotty Ortega MD Sep 20, 2016 11:42
--- NOTE | 2016-08-31 18:17 | HHI.PR ---
Subjective Remarks Sedated on the vent . FIO2 at 40 %. PEEP is at 8 CM. Opens eyes. Output was good .Pseudomonas on trach culture, and on antibiotics Objective Vital Signs Date Time Temp Pulse Resp B/P Pulse Ox O2 Delivery O2 Flow Rate FiO2 08/31/16 16:00 98.2 68 21 121/64 100 08/31/16 16:00 40 08/31/16 16:00 59 08/31/16 15:21 99 40 08/31/16 14:00 65 08/31/16 13:53 40 08/31/16 12:00 40 08/31/16 12:00 80 08/31/16 12:00 98.6 80 29 160/72 98 08/31/16 11:11 99 40 08/31/16 10:00 77 08/31/16 08:00 40 08/31/16 08:00 86 08/31/16 08:00 98.2 86 29 134/67 97 08/31/16 07:37 97 40 08/31/16 06:00 83 08/31/16 04:32 92 40 08/31/16 04:00 83 08/31/16 04:00 98.9 83 16 129/90 93 08/31/16 04:00 40 08/31/16 02:00 68 08/31/16 01:32 93 40 08/31/16 00:00 40 08/31/16 00:00 75 08/31/16 00:00 98.8 75 20 122/70 94 08/30/16 22:34 93 40 08/30/16 22:00 58 08/30/16 20:00 40 08/30/16 20:00 72 08/30/16 20:00 99.0 72 24 137/66 96 08/30/16 19:26 97 40 I/O 08/30/16 08/30/16 08/30/16 08/31/16 08/31/16 08/31/16 07:00 15:00 23:00 07:00 15:00 23:00 Intake Total 996 ml 972 ml 435 ml 725 ml 60 ml Output Total 695 ml 585 ml 895 ml 365 ml 540 ml 120 ml Balance 301 ml 387 ml -460 ml 360 ml -480 ml -120 ml IV Total 627 ml 633 ml 210 ml 410 ml Tube Feeding 249 ml 339 ml 225 ml 315 ml 60 ml Other 120 ml Output Urine Total 695 ml 585 ml 845 ml 340 ml 540 ml 120 ml Stool Total 0 ml 50 ml 25 ml # Bowel Movements 100 Result Diagram: 08/31/1634408/31/16344 Objective Remarks This is an obese middle-aged white female who is sedated. She is intubated orally . HEENT: Head normocephalic. Pupils react, and throat clear. Neck: No bruits, no thyroid enlargement, no lymphadenopathy. Chest: Decreased breath sounds.Occ wheeze heard. Heart: Heart sounds were regular. S1-S2 no murmur, no S3. Abdomen: Soft, benign. No masses, or tenderness. Bowel sounds are active. Extremities: No edema . Neuro : She is sedated. Assessment and Plan Assessment and Plan IMPRESSION 1. Acute hypercapnic respiratory failure. 2. Pulmonary edema. 3. Basilar pneumonia 4. Obstructive sleep apnea syndrome 5. Hypertension 6. Hypothyroidism. 7. Obesity. Plan : 1. Cont Antibiotics.Cefipime /Levaquin 2. Wean FIo2 to keep sat >92. 3. Nebs qid , duoneb. 4. Reduce sedation. 5. CPAP trial for 4 hrs 6. Trach suction and lavage. 7. Tube feeds at 50 CC 8. For trach this week. 9. Cont Bumex 1 mg bid 10. CBC, BMP in am Abimael Beck MD Aug 31, 2016 18:17
--- NOTE | 2016-08-31 18:47 | HHI.HCPN ---
Palliative care was consulted to assist with further clarification of treatment goals (trach/PEG) as there is disagreement among family. Discussed with nurse, Flaca to request her assistance in arranging family meeting on 09/01/16. She will notify palliative care team of time family is available on 09/01/16. . RUMA COOPER-Des Aug 31, 2016 18:47
[2016-08-31] MEDS: PRAVASTATIN SOD 20 MG TAB PO SCH (21:47)
[2016-09-01] VITALS (20 sets, daily range): BP systolic 105–137; BP diastolic 54–78; PULSE 56–92; RESP 16–27; TEMP 98.6–99.7; O2SAT 92–99
[2016-09-01] MEDS: DOCUSATE SODIUM 100 MG/10 ML UDC G-TUBE SCH ×3 (00:02→23:35)
[2016-09-01] MEDS: oxyCODONE HCL ORAL CONC 20 MG/ML SYRINGE PO SCH ×7 (00:02→23:35)
[2016-09-01] MEDS: fentaNYL DRIP 250 ML IV SCH ×2 (00:03→18:06)
[2016-09-01] MEDS: PROPOFOL 1000 MG/100 ML INJ 100 ML IV SCH ×6 (02:43→20:12)
[2016-09-01] MEDS: RESP: ALBUTEROL 2.5 MG/IPRATROPIUM 0.5 MG NEB (SCH) INH ×6 (03:19→23:44)
[2016-09-01] MEDS: INSULIN NovoLIN REGULAR SUPPLEMENTAL SCALE SQ SCH ×4 (04:00→21:02)
[2016-09-01] MEDS: CHLORHEXIDINE GLUCONATE 2 % 1 PACK (2 CLOTHS) TOP SCH (04:00)
--- NOTE | 2016-09-01 05:27 | RADRPT ---
EXAM DATE/TIME: 09/01/2016 04:28 [facility] COMPARISON: CHEST SINGLE AP, August 28, 2016, 11:38. INDICATIONS : Shortness of breath. MEDICAL HISTORY : Hypertension. Hypercholesterolemia. Sleep apnea. SURGICAL HISTORY : None. ENCOUNTER: Subsequent ACUITY: 2 weeks PAIN SCORE: Non-responsive. LOCATION: Bilateral chest FINDINGS: Lines and tubes are present not significantly changed. There is moderate bilateral mixed interstitial and alveolar process would mainly alveolar component in the left upper lobe worse since the prior ex am. Bibasilar opacities are present may be due to a combination of consolidation and or pleural effus ion. CONCLUSION: Probable worsening pulmonary edema, however pneumonia particularly in the lung bases is difficult to exclude. Danyel Escalante MD on September 01, 2016 at 5:25 Board Certified Radiologist. This report was verified electronically.
[2016-09-01] MEDS: QUEtiapine FUMARATE 25 MG TAB PO SCH ×3 (05:38→21:02)
[2016-09-01] MEDS: LEVOTHYROXINE SODIUM 200 MCG TAB PO SCH (05:38)
[2016-09-01] MEDS: LEVOFLOXACIN 750 MG PREMIX INJ 150 ML IV SCH (08:00)
[2016-09-01] MEDS: SODIUM CHLORIDE 0.9% FLUSH 10 ML FLUSH IVF PRN (08:27)
[2016-09-01] MEDS: ARTIFICIAL TEARS OPTH SOLN 15 ML BTL EACH EYE SCH ×3 (08:27→18:00)
[2016-09-01] MEDS: BENEPROTEIN POWDER 1 PACK G-TUBE SCH ×3 (08:27→18:00)
[2016-09-01] MEDS: SODIUM CHLORIDE 0.9% FLUSH 10 ML FLUSH IV FLUSH SCH ×2 (08:27→20:11)
[2016-09-01] MEDS: PANTOPRAZOLE SODIUM 40 MG VIAL IV PUSH SCH (08:28)
[2016-09-01] MEDS: predniSONE 5 MG/5 ML CUP PO SCH (08:28)
--- NOTE | 2016-09-01 09:32 | HHI.PR ---
Subjective Subjective Notes Intubated/Sedated Objective Vitals/I&O Vital Signs Date Time Temp Pulse Resp B/P Pulse Ox O2 Delivery O2 Flow Rate FiO2 09/01/16 08:00 99.3 74 27 117/58 93 09/01/16 08:00 40 Labs Laboratory Tests Test 08/31/16 18:55 Potassium Level 3.8 Date/Time Procedure Status Source Growth 08/28/16 08:55 Aerobic Blood Culture - Preliminary Resulted Blood Peripheral NO GROWTH IN 3 DAYS 08/28/16 08:55 Anaerobic Blood Culture - Preliminary Resulted Blood Peripheral NO GROWTH IN 3 DAYS 08/28/16 08:00 Gram Stain - Final Complete Sputum Endotracheal 08/28/16 08:00 Sputum Culture - Final Complete Pseudomonas Aeruginosa Cardiovascular: Regular Lungs: Clear Abdomen: Non-distended, Non-tender Extremities: No edema A/P Assessment and Plan 56 year old female with ventilator dependent respiratory failure in need of perc trach placement -Trach on hold until family establishes goals of treatment -PEG planned for today per RN -GS will be available next week if family agrees to have trach placed -I will follow up with Palliative Care team after family meeting Attending Note - Dr. Ortega Discussed with quarryman and RN As above No change in exam, except peripheral edema improved The exam, history, and the medical decision-making described in the above note were completed with the assistance of the mid-level provider. I reviewed and agree with the findings presented. I attest that I had a [id number] encounter with the patient on the same day, and personally performed and documented my assessment and findings in the medical record. Kalyani Rose Sep 01, 2016 09:32 Scotty Ortega MD Sep 20, 2016 11:44
[2016-09-01] MEDS ORDERED: PROPOFOL 200 MG/20 ML AMP IV ONE (10:35)
--- NOTE | 2016-09-01 10:48 | GIPROC ---
[facility] [address] [facility]. [facility] [place], [address] EGD PROCEDURE REPORT EXAM DATE: 09/01/2016 PATIENT NAME: Barbara Clayton MR #: [id number] BIRTHDATE: 1960 ATTENDING: Kat Garcia MD ORDER #: [id number] FRONT END UI DEVELOPER: Sabino Puckett and Jonna Willis STATUS: inpatient INDICATIONS: The patient is a 56 yr old female here for an EGD due to dysphagia PROCEDURE PERFORMED: EGD w/ percutaneous gastrostomy tube placement MEDICATIONS: Per Anesthesia and None. TOPICAL ANESTHETIC: CONSENT: The patient understands the risks and benefits of the procedure and understands that these risks include, but are not limited to: sedation, allergic reaction, infection, perforation and/or bleeding. Alternative means of evaluation and treatment include, among others: physical exam, x-rays, and/or surgical intervention. The patient elects to proceed with this endoscopic procedure. medical equipment was checked for proper function. Hand hygiene and appropriate measures for infection prevention was taken. After the risks, benefits and alternatives of the procedure were thoroughly explained, Informed consent was verified, confirmed and timeout was successfully executed by the treatment team. The patient was anesthetized with topical anesthesia and the Pentax EG-[id number] endoscope was introduced through the mouth and advanced to the second portion of the duodenum. Retroflexed views revealed no abnormalities The gastroscope was then slowly withdrawn and removed. ESOPHAGUS: The mucosa of the esophagus appeared normal. STOMACH: There was erythematous moderate gastritis in the gastric antrum. G tube placement , 20 Fr. ADVERSE EVENTS: There were no complications. IMPRESSIONS: 1. The esophagus appeared normal 2. There was erythematous gastritis in the gastric antrum 3. G tube placement , 20 Fr 4. Retroflexed views revealed no abnormalities RECOMMENDATIONS: PEG recomendations: 1- NPO for 6 hours except for meds 2- Flush PEG tube every 6 hours with water and after each PEG feeding 3- May resume regular diet in the morning 4- May use Ensure or Boost etc. for PEG tube feeding PATIENT CONDITION: stable DISPOSITION: Inpatient REPEAT EXAM: NONE Kat Garcia MD eSigned: Kat Garcia MD 09/01/2016 10:48 AM cc:
--- NOTE | 2016-09-01 10:52 | PD.CONS ---
Consult Service Palliative Care . Consult Requested By Dr. Hoffman . Primary Care Physician Unknown Reason for Consultation a. To assist with evaluation and management of symptoms including: dyspnea, pain. b. To assist medical decision maker(s) with: better understanding of current medical conditions; weighing benefits/burdens of medical treatment options; making medical treatment decisions. . HPI History of Present Illness Ms. Clayton is a 56 year old female with past medical history of hypothyroidism , obstructive sleep apnea, elevated BMI and high cholesterol. Patient presented to [facility] emergency department by family on 08/14/16 for evaluation of respiratory distress. Notes indicate the patient had reported being sick for one week prior to presentation with progressively worsening symptoms including fever, chills, shortness of breath, cough, chest pain with coughing, increase confusion and fatigue. Initial evaluation revealed : * temp 100.6, pulse 106, respiration 36, BP 178/103, oxygen saturation 92% on BiPAP 100% FI 02 * WBC 13.6, hemoglobin 14.5, hematocrit 44.7, platelet count 423, neutrophils 87.3% * D dimer 1.62 * sodium 135, potassium 3.1, chloride 87, carbon dioxide 40.7, BUN 23, creatinine 0.77, GFR 78, glucose 204, calcium 8.3, magnesium 2.8 * Total bilirubin 0.4, AST 77, ALT 72, Alk phos 143 * total creatine kinase 298, CK MB 3.2, troponin 0.09 * BNP 110 * total protein 8.1, albumin 2.5 * urinalysis negative * chest x-ray bibasilar infiltrates, right greater than left, pulmonary venous congestion, cardiomegaly. * EKG sinus tachycardia no ST segment elevation or depression. Patient is admitted to ICU with respiratory failure, CHF, pneumonia, probable underlying COPD. Patient was intubated and placed on mechanical ventilation. Pulmonology, Dr. Beck was consulted for respiratory failure/sleep apnea and continues to follow. 08/15/16 CTA showed no evidence of pulmonary embolism, multifocal consolidation greatest right lower lobe. Hospital course has been complicated by continued high oxygen ventilator needs, ARDS and inability to wean from vent. In speaking with Dr. Hoffman, he feels patient may be able to survive this acute illness, however will need trach/ PEG and LTAC. Daughter (Loree) gave consent for PEG tube which was placed 09/01/16. Chest x-ray showing increased bibasilar infiltrate. Failed CPAP trial after 5 minutes due to severe tachypnea today. sputum culture positive pseudomonas aeruginosa. Apparently there has been disagreement between the daughter (HCP) and patient's significant other (Rony) regarding tracheostomy. Per staff, daughter had consented to trach and then rescinded after significant other felt patient would not want it. Palliative care was consulted to assist with further clarification of treatment goals. Palliative care requested nursing temporary staff accountant arranging family meeting on 08/31/16, however they have not been able to get in touch with the family. Left message for Loree denson 09/01/16 to further clarify treatment goals, awaiting return call. . Function/Cognitive Trajectory Left message for patient's daughterLoree/HCP for further clarification of treatment goals in particular tracheostomy decision. Awaiting return call. Review of Systems ROS Limitations: Intubated (sedated on mechanical vent, patient unable to provide ROS, RS per EMR review, no family at bedside.) Constitutional: COMPLAINS OF: Fatigue, Change in appetite (decreased), Generalized weakness Respiratory: COMPLAINS OF: Cough, Shortness of breath Cardiovascular: COMPLAINS OF: Chest pain, Dyspnea on Exertion Musculoskeletal: COMPLAINS OF: Back pain Hematologic/Lymphatics: COMPLAINS OF: Bruising Neurologic: COMPLAINS OF: Headache Psychiatric: COMPLAINS OF: Anxiety Past Family Social History Coded Allergies: No Known Allergies (Verified , 08/14/16) Past Medical History Elevated BMI Hypothyroidism Obstructive sleep apnea Obesity hypoventilation syndrome Tobacco use disorder probable COPD hyperlipidemia hypertension . Past Surgical History Tubal ligation Partial hysterectomy . Reported Medications Reported Meds & Active Scripts Active Reported Levothyroxine (Levothyroxine Sodium) 50 Mcg Tab 50 Mcg PO DAILY Lovastatin 20 Mg Tab 20 Mg PO HS Levothyroxine (Levothyroxine Sodium) 200 Mcg Tab 200 Mcg PO DAILY Hydrochlorothiazide 12.5 Mg Cap 12.5 Mg PO DAILY . Current Medications Medications (Trade) Dose Ordered Sig/Josephine Route Start Time Stop Time Status Last Admin (Synthroid) 200 mcg DAILY@06 PO 08/15/16 06:00 09/01/16 05:38 (Pravachol) 20 mg HS PO 08/15/16 21:00 08/31/16 21:47 (NS Flush) 2 ml UNSCH PRN IVF 08/14/16 23:15 09/01/16 08:27 (NS Flush) 2 ml BID IV FLUSH 08/15/16 09:00 09/01/16 08:27 (Tylenol) 650 mg Q6H PRN PO 08/14/16 23:15 08/29/16 06:17 (Morphine Inj) 2 mg Q2H PRN IV 08/14/16 23:15 (Tears Naturale Opth Soln) 1 drop TID EACH EYE 08/15/16 09:00 09/01/16 08:27 (Zofran Inj) 4 mg Q6H PRN IV 08/14/16 23:15 (Colace Liq) 100 mg Q12H G-TUBE 08/14/16 23:15 09/01/16 00:02 Miscellaneous Information 1 Q361D XX 08/14/16 23:15 (Chlorhexidine 2% Cloth) Taper DAILY@04 TOP 08/15/16 04:00 08/11/17 03:59 08/21/16 03:10 Chlorhexidine Gluconate 3 pack 3 pack UNSCH PRN TOP 08/14/16 23:15 (Diprivan 1000 Mg/100ml Inj) 100 ml @ 0 mls/hr TITRATE IV 08/14/16 23:15 09/01/16 06:48 Protein 2 pack 2 pack TID G-TUBE 08/15/16 09:00 09/01/16 08:27 Fentanyl Citrate 250 ml @ 0 mls/hr TITRATE IV 08/14/16 23:15 09/01/16 00:03 Potassium Chloride 100 ml @ 50 mls/hr Q2H PRN IV 08/15/16 08:15 08/31/16 05:30 Potassium Chloride 100 ml @ 50 mls/hr Q2H PRN IV 08/15/16 08:15 08/27/16 18:34 Potassium Chloride 100 ml @ 25 mls/hr UNSCH PRN IV 08/15/16 08:15 08/30/16 03:00 Potassium Chloride 100 ml @ 50 mls/hr Q2H PRN IV 08/15/16 08:15 08/25/16 10:59 (Magnesium Sulfate Inj/NS Inj) 100 ml @ 50 mls/hr UNSCH PRN IV 08/15/16 08:15 Magnesium Oxide 800 mg 800 mg UNSCH PRN PO 08/15/16 08:15 (Magnesium Sulfate Inj/NS Inj) 100 ml @ 50 mls/hr UNSCH PRN IV 08/15/16 08:15 Potassium Phosphate 2000 mg 2,000 mg Q4H PRN PO 08/15/16 08:15 (Sodium Phosphate Inj/NS 250 ml Inj) 250 ml @ 42 mls/hr UNSCH PRN IV 08/15/16 08:15 Potassium Phosphate 2000 mg 2,000 mg UNSCH PRN PO/TUBE 08/15/16 08:15 (Potassium Phosphate Inj/NS 250 ml Inj) 260 ml @ 42 mls/hr UNSCH PRN IV 08/15/16 08:15 08/16/16 08:01 (Protonix Inj) 40 mg DAILY IV PUSH 08/15/16 09:44 09/01/16 08:28 (D50w (Vial) Inj) 25 ml UNSCH PRN IV PUSH 08/16/16 09:15 (NovoLIN R SUPPLEMENTAL SCALE) 1 Q6H SQ 08/16/16 10:00 08/30/16 16:00 (Heparin Inj) 5,000 units Q8H SQ 08/17/16 16:00 08/30/16 23:31 (SEROquel) 50 mg Q8HR PO 08/27/16 14:00 09/01/16 05:38 (Roxicodone Intensol Liq) 10 mg Q4HR PO 08/27/16 10:15 09/01/16 08:27 Acetazolamide Sodium 500 mg 500 mg Q8H IV PUSH 08/28/16 10:00 09/01/16 09:44 (Levaquin 750 Mg Premix Inj) 150 ml @ 100 mls/hr Q24H IV 08/29/16 08:00 09/04/16 09:00 09/01/16 08:00 (predniSONE LIQ) 10 mg Taper DAILY PO 08/29/16 09:00 09/03/16 08:59 09/01/16 08:28 . Family History Mother of lung cancer. Father of diabetes. Substance Use Tobacco: smokes 1 PPD Alcohol: none. Prescription med abuse: none. Illicits: none. . Psychosocial History Has a significant other, not legally have been together for approximately 38 years. Lives in [place]. Has a daughter, Loree. Has 2 sisters. From [place]. Moved to [place] in 1999. Worked in the [employer] business. . Spiritual/Cultural Factors Was raised Presbyterian. Declines cvt rn support. Family reports cvt rn support would scare the patient more than help. . Living Will: Never completed Health Care Surrogate: Never completed Durable Power of Him Director: Never completed Ethical and Legal Issues Patient is currently incapacitated to participate in healthcare decision- making. Single, does have a significant other not legally . Has one daughter. According to 4 to statutes, health care proxy decision-making falls to daughter Loree. . Physical Exam Vital Signs Date Time Temp Pulse Resp B/P Pulse Ox O2 Delivery O2 Flow Rate FiO2 09/01/16 09:44 25 09/01/16 08:00 99.3 74 27 117/58 93 09/01/16 08:00 40 09/01/16 08:00 74 09/01/16 07:49 98 40 09/01/16 06:00 71 09/01/16 04:56 92 50 09/01/16 04:37 95 40 09/01/16 04:00 92 09/01/16 04:00 99.1 92 20 137/78 96 09/01/16 04:00 40 09/01/16 02:00 59 09/01/16 01:22 94 40 09/01/16 00:00 98.6 58 23 105/54 99 09/01/16 00:00 40 09/01/16 00:00 58 08/31/16 22:50 100 40 08/31/16 22:00 66 08/31/16 20:00 62 08/31/16 20:00 99.1 62 23 143/67 98 08/31/16 20:00 40 08/31/16 19:24 99 40 08/31/16 18:00 57 08/31/16 16:00 98.2 68 21 121/64 100 08/31/16 16:00 40 08/31/16 16:00 59 08/31/16 15:21 99 40 08/31/16 14:00 65 08/31/16 13:53 40 08/31/16 12:00 40 08/31/16 12:00 80 08/31/16 12:00 98.6 80 29 160/72 98 08/31/16 11:11 99 40 08/31/16 09/01/16 19:00 07:00 Intake Total 1228 ml 617 ml Output Total 735 ml 1070.0 ml Balance 493 ml -453.0 ml IV Total 1108 ml 497 ml Tube Feeding 120 ml 0 ml Other 120 ml Output Urine Total 735 ml 900 ml Stool Total 110 ml Tube Feeding Residual Discard 60.0 ml Exam CONSTITUTIONAL/GENERAL: This is an adequately nourished patient, sedated on mechanical ventilation. TUBES/LINES/DRAINS: ETT, left subclavian centerline, PIV times 2 left, PEG tube , Miller,podus boots, specialty bed. SKIN: No jaundice, rashes, or lesions. Ecchymoses on upper extremities. No wounds seen anteriorly. Skin temperature appropriate. Not diaphoretic. HEAD: Atraumatic. Normocephalic. EYES: Eyes closed. ENT: Unable to assess hearing. earing grossly normal. Nose without bleeding or purulent drainage. Throat difficult to visualize secondary to ETT, poor dentition. NECK: Trachea midline. CARDIOVASCULAR: Regular rate and rhythm without murmurs, gallops, or rubs. No JVD. Peripheral pulses symmetric. RESPIRATORY/CHEST: Symmetric, unlabored respirations on mechanical vent. Few basilar crackles noted. GASTROINTESTINAL: Abdomen soft, non-tender, nondistended. No guarding. Bowel sounds present. GENITOURINARY: Without palpable bladder distension. Miller catheter in place. MUSCULOSKELETAL: Extremities without clubbing, cyanosis, or edema. No mottling or clubbing. LYMPHATICS: No palpable cervical or supraclavicular adenopathy. NEUROLOGICAL: sedated. PSYCHIATRIC: sedated. . Diagnostic Tests Laboratory Laboratory Tests Test 08/29/16 08/29/16 08/30/16 08/30/16 12:00 19:45 02:05 05:40 Sodium Level 141 MEQ/L 141 MEQ/L 141 MEQ/L 140 MEQ/L (136-145) (136-145) (136-145) (136-145) Potassium Level 3.0 MEQ/L 3.7 MEQ/L 3.4 MEQ/L 3.7 MEQ/L (3.5-5.1) (3.5-5.1) (3.5-5.1) (3.5-5.1) Chloride Level 98 MEQ/L 101 MEQ/L 103 MEQ/L 105 MEQ/L (98-107) (98-107) (98-107) (98-107) Carbon Dioxide Level 35.1 MEQ/L 31.5 MEQ/L 31.4 MEQ/L 29.8 MEQ/L (21.0-32.0) (21.0-32.0) (21.0-32.0) (21.0-32.0) Anion Gap 8 MEQ/L (5-15) 9 MEQ/L (5-15) 7 MEQ/L (5-15) 5 MEQ/L (5-15) Blood Urea Nitrogen 31 MG/DL (7-18) 32 MG/DL (7-18) 30 MG/DL (7-18) 30 MG/DL (7- 18) Creatinine 0.82 MG/DL 0.79 MG/DL 0.64 MG/DL 0.60 MG/DL (0.50-1.00) (0.50-1.00) (0.50-1.00) (0.50-1.00) Estimat Glomerular Filtration 72 ML/MIN (>89) 76 ML/MIN (>89) 96 ML/MIN (>89) 104 ML/MIN Rate (>89) Random Glucose 131 MG/DL 187 MG/DL 152 MG/DL 133 MG/DL (74-106) (74-106) (74-106) (74-106) Calcium Level 9.1 MG/DL 9.0 MG/DL 9.1 MG/DL 9.2 MG/DL (8.5-10.1) (8.5-10.1) (8.5-10.1) (8.5-10.1) Magnesium Level 2.9 MG/DL 2.9 MG/DL 3.0 MG/DL 3.1 MG/DL (1.5-2.5) (1.5-2.5) (1.5-2.5) (1.5-2.5) Lipase 56 U/L (73-393) Vancomycin Level Trough 15.3 MCG/ML (5.0-10.0) White Blood Count 16.7 TH/MM3 (4.0-11.0) Red Blood Count 3.62 MIL/MM3 (4.00-5.30) Hemoglobin 10.1 GM/DL (11.6-15.3) Hematocrit 31.7 % (35.0-46.0) Mean Corpuscular Volume 87.5 FL (80.0-100.0) Mean Corpuscular Hemoglobin 28.0 PG (27.0-34.0) Mean Corpuscular Hemoglobin 32.0 % Concent (32.0-36.0) Red Cell Distribution Width 17.1 % (11.6-17.2) Platelet Count 247 TH/MM3 (150-450) Mean Platelet Volume 9.5 FL (7.0-11.0) Test 08/31/16 08/31/16 03:45 18:55 White Blood Count 10.6 TH/MM3 (4.0-11.0) Red Blood Count 3.63 MIL/MM3 (4.00-5.30) Hemoglobin 10.4 GM/DL (11.6-15.3) Hematocrit 31.6 % (35.0-46.0) Mean Corpuscular Volume 87.0 FL (80.0-100.0) Mean Corpuscular Hemoglobin 28.5 PG (27.0-34.0) Mean Corpuscular Hemoglobin 32.8 % Concent (32.0-36.0) Red Cell Distribution Width 16.8 % (11.6-17.2) Platelet Count 255 TH/MM3 (150-450) Mean Platelet Volume 9.8 FL (7.0-11.0) Sodium Level 141 MEQ/L (136-145) Potassium Level 3.2 MEQ/L 3.8 MEQ/L (3.5-5.1) (3.5-5.1) Chloride Level 104 MEQ/L (98-107) Carbon Dioxide Level 29.8 MEQ/L (21.0-32.0) Anion Gap 7 MEQ/L (5-15) Blood Urea Nitrogen 27 MG/DL (7-18) Creatinine 0.39 MG/DL (0.50-1.00) Estimat Glomerular Filtration 171 ML/MIN Rate (>89) Random Glucose 107 MG/DL (74-106) Calcium Level 9.0 MG/DL (8.5-10.1) Result Diagram: 08/31/16 0345 08/31/16 1855 Microbiology Microbiology Date/Time Procedure Status Source Growth 08/28/16 08:55 Aerobic Blood Culture - Preliminary Resulted Blood Peripheral NO GROWTH IN 4 DAYS 08/28/16 08:55 Anaerobic Blood Culture - Preliminary Resulted Blood Peripheral NO GROWTH IN 4 DAYS 08/28/16 08:00 Gram Stain - Final Complete Sputum Endotracheal 08/28/16 08:00 Sputum Culture - Final Complete Pseudomonas Aeruginosa Imaging Last Impressions Chest X-Ray 09/01/16 0600 Signed Impressions: Service Date/Time: Thursday, September 01, 2016 04:28 - CONCLUSION: Probable worsening pulmonary edema, however pneumonia particularly in the lung bases is difficult to exclude. Danyel Escalante MD Gall Bladder Ultrasound 08/29/16 0000 Signed Impressions: Service Date/Time: Monday, August 29, 2016 15:21 - CONCLUSION: 1. Hepatomegaly with heterogeneous echotexture throughout the liver. 2. There is a large echogenic area near the neck of the gallbladder suggestive of a stone, but despite its large size, demonstrates no acoustic shadowing in any of the views. Taco Davidson MD Liver Ultrasound 08/15/16 0000 Signed Impressions: Service Date/Time: Monday, August 15, 2016 15:45 - CONCLUSION: Fatty liver and cholelithiasis. Common bile duct is dilated and common bile duct stone is not excluded. Danyel Escalante MD CT Angiography 08/15/16 0000 Signed Impressions: Service Date/Time: Monday, August 15, 2016 02:33 - CONCLUSION: 1. No evidence for pulmonary embolism. 2. Multifocal consolidation greatest in the right lower lobe and associated adenopathy. Terry Estrada MD . Procedures * 09/01/16 PEG tube placed * 08/28/16 left subclavian central line placed * 08/18/16 right arterial line placed * 08/18/16 right IJ central line placed * 08/14/16 intubation . Patient/Family Conference Present at Family Conference: Left message for daughterLoree to further clarify treatment goals. Awaiting return call. . Issues Discussed: * Palliative care contact information provided . Assessment and Plan Disease Oriented Problem List: (1) ARDS (adult respiratory distress syndrome) (2) acute hypercapneic and hypoxemic respiratory failure (3) HCAP (healthcare-associated pneumonia) (4) CHF (congestive heart failure) (5) Hypokalemia (6) Morbid obesity (7) Hypothyroidism (8) Dyslipidemia (9) Metabolic encephalopathy (10) Sepsis (11) Elevated LFTs Symptom Scale: (1) Pain 0-10 Scale: Unable to quantify Comment: Sedated with fentanyl and propofol (2) Dyspnea 0-10 Scale: Unable to quantify Comment: Remains on mechanical ventilation, sedated with fentanyl and propofol Pertinent Non-Medical Issues Psychosocial: single, significant other, not legally . As one daughter. Spiritual: [employer] benja. Legal: Patient is currently incapacitated to participate in healthcare decision- making. Single, does have a significant other not legally . Has one daughter. According to 4 to statutes, health care proxy decision-making falls to jarett Ralph. Ethical issues impacting care: no known concerns at this time. . Important Contacts * Loree Marinelli, daughter (HCP): [phone] * Rony Marinelli, significant other: [phone] . Code Status: Full Code Plan * Patient is currently incapacitated to participate in healthcare decision- making. Single, does have a significant other not legally . Has one daughter. According to 4 to statutes, health care proxy decision-making falls to jarett Ralph. * FULL CODE. * Palliative care requested nursing temporary staff accountant arranging family meeting on 08/31/16, however they have not been able to get in touch with the family. Left message for Loree denson 09/01/16 to further clarify treatment goals, awaiting return call. * SYMPTOMS: dyspnea: remains on mechanical ventilation, sedated with Fentanyl and Diprivan. Pain : secondary to infection, mech vent, recent PEG tube placement and bedbound status. * Palliative care number provided. * Palliative care will continue to follow to assist with symptom management and further clarification of treatment goals as needed. . Thank you for the opportunity to participate in the care of Ms. Clayton. Attestation To help prompt me to consider important information that might be impacting today's encounter and assessment, information from prior notes written by myself or my colleagues may have been "brought forward" into today's note. My signature on this note, however, is an attestation that I personally performed the exam, history, and/or decision-making noted today, and, unless otherwise indicated, the interactions with patient, family, and staff as well as the review of records all occurred today. I also attest that the listed assessment and stated plan reflect my best clinical judgment today based on the combination of historical information, prior notes, and today's exam/ interactions. When time spent is documented, it refers only to time spent today by the signer, or if indicated, combined time spent today by collaborating physician/nurse practitioner. RUMA COOPER Sep 01, 2016 10:52
--- NOTE | 2016-09-01 11:23 | HHI.CCPN ---
Subjective Remarks/Hospital Course 56-year-old morbidly obese female brought in the emergency department in respiratory distress. She was intubated by ER attending. She has been sick for about a week with symptoms consistent with UTI. She's had fevers and chills. She's been short of breath. She's had fatigue. She has had a cough and chest pain with coughing. The family reports that she's been delirious for the last 3 days. 08/15 Patient is sedated with Diprivan, Versed, Fentanyl and intubated. CTA chest showed no PE multifocal consolidation greatest in RLL. Tmax 100.6 08/16 Patient is sedated with Diprivan and Fentanyl. Afebrile. CXR this morning showed increase consolidation. 08/17 Patient remains sedated and intubated. T:100.4 On PRVC/AC RR 18, Tv 500, IT :1.0 PEEP:10, FIO2 75% 08/18 Remains sedated and intubated. Afebrile. CXR this morning unchanged bibasilar infiltrates and effusions. 08/19 Patient was placed on rotoprone bed last night for proning sedated with Diprivan, Versed and Fentnayl in addition she is on Nimbex. On PRVC/AC RR 20, TV 400, IT:1.1, PEEP:14 and FIO2 80%. Afebrile. 08/20 Patient remains sedated and intubated. Remains on PRVC/AC mode with improvements in her oxygenation on FIO2 50% from 80% yesterday and PEEP:12. 08/21 Patient remains sedated and intubated. On PRVC/AC mode with RR 20, TV 400, IT:1.1, PEEP: 12 and FIO2 50%. Afebrile. 08/22 No acute events overnight. Remains sedated, intubated and on Nimbex.. T: 99.8. On PRVC mode with PEP: 12, FIO2 50%. CXR from yesterday showed better aeration, RLL infiltrate unchanged. 08/23 Chest x-ray worsening. Methylprednisolone taper to twice a day by pulmonary. The patient's FiO2 was found to be 100% this a.m., will continue to wean. 08/24: 1 desat episode yesterday when supine. still remains prone now. no vasopressors. sedated and paralyzed. 08/25: flolan added yesterday. fio2 down to 60%. remained supine all night. still on neuromuscular blockade. net -500cc/24h. 08/26: good diuresis. remained supine. fio2 70%. weaning flolan. remains with significant respiratory support and high peep despite 6L diuresis overnight. Cr still stable. 08/27: continues with good diuresis. net negative 3L/24h. fio2 down to 55%. flolan off. still high peep. not ready for SBT. more agitated today. Cr remains stable despite aggressive diuresis. 08/28: diuresis continues. -3.3L/24h. spiked fever overnight with a jump in wbc to 16 this AM. fio2 60%, but her pulmonary improvements have plateaued at this point. still on peep 12. 08/29: net -1.7L/24h. Cr starting to rise. still spiking fevers despite vanc/ cefepime added yesterday. wbc continues to rise. clinically appears infected, although unclear source. peep 10, fio2 60%. will likely need trach. 08/30: net +800cc, but Cr downtrending. appears clinically euvolemic. fever curve downtrending. wbc downtrending. on 40% fio2, peep 8 today. still following commands. 08/31: failed SBT after only 45 minutes yesterday. intubated for > 2 weeks at this point. will attempt to pursue trach/peg today. will continue with pulmonary strengthening. daily SBTs. 09/01 CXR showing increasing bibasilar infiltrate. Failed C Pap trial in 5 minutes due to severe tachypnea. PEG tube today. Family has not decided on trach yet Objective Vital Signs Date Time Temp Pulse Resp B/P Pulse Ox O2 Delivery O2 Flow Rate FiO2 09/01/16 10:00 73 09/01/16 09:44 25 09/01/16 08:00 99.3 117/58 93 09/01/16 08:00 40 Intake and Output 08/31/16 08/31/16 09/01/16 08:00 16:00 00:00 Intake Total 600 ml 1380 ml Output Total 480 ml 470 ml 485.0 ml Balance 120 ml -470 ml 895.0 ml Result Diagram: 08/31/16 0345 08/31/16 3137 Imaging Last Impressions Chest X-Ray 08/21/16 0000 Signed Impressions: Service Date/Time: Sunday, August 21, 2016 07:23 - CONCLUSION: Better aeration from the prior study. Right lower lobe infiltrate is unchanged. Taco Haas Jr., MD Liver Ultrasound 08/15/16 0000 Signed Impressions: Service Date/Time: Monday, August 15, 2016 15:45 - CONCLUSION: Fatty liver and cholelithiasis. Common bile duct is dilated and common bile duct stone is not excluded. Danyel Escalante MD CT Angiography 08/15/16 0000 Signed Impressions: Service Date/Time: Monday, August 15, 2016 02:33 - CONCLUSION: 1. No evidence for pulmonary embolism. 2. Multifocal consolidation greatest in the right lower lobe and associated adenopathy. Terry Estrada MD Objective Remarks GENERAL: Patient is intubated and sedated, critically ill SKIN: Warm and dry. HEAD: Normocephalic. EYES: No scleral icterus. No injection or drainage. NECK: trachea midline. morbid obesity prevents accurate assessment of JVD. CARDIOVASCULAR: Regular rate and rhythm without murmurs, gallops, or rubs. RESPIRATORY: Breath sounds equal bilaterally. No accessory muscle use. Few basilar crackles GASTROINTESTINAL: Abdomen obese, soft, non-tender, nondistended. MUSCULOSKELETAL: No cyanosis, or edema. Neuro: RASS -2. follows commands on sedation hold Urinary Catheter: Yes Assessment to: Continue Vascular Central Line Catheter: Yes Assessment to: Continue A/P Problem List: (1) CHF (congestive heart failure) ICD Code: I50.9 Status: Acute (2) Respiratory failure ICD Code: J96.90 Status: Acute (3) Pneumonia ICD Code: J18.9 Status: Acute Assessment and Plan Acute hypercapnic and hypoxemic resp failure ARDS Pneumonia community-acquired, now with probable HCAP with pseudomonas Agitated delirium/metabolic encephalopathy Sepsis Elevated LFT Hypokalemia Hypothyroidism Dyslipidemia Mild elevated trop likely 2nd resp failure Morbid obesity Plan Neuro: fentanyl, propofol for goal RASS -2. daily sedation vacation. continue seroquel 50mg po q8h for delirium and oxycodone 10mg po q4h femi for pain. Pulm: On PRVC/AC RR 20, TV 400, PEEP 8, IT: 1.1 and FIO2 0.4%. Decrease FIO2 as tiki. for goal spo2 > 88% Bronchodilators, prednisone taper. ICU vent bundle. Pulm is following- Dr. Beck Gen surg consulted for trach. Palliative care following in clarifying goals of care with the family. Not decided on trach yet Vent day 18 CV: Monitor HR and BP keep MAP>65mmg Echo showed EG 65-70% : Monitor renal function, I/O's. electrolytes replacement per protocol. clinically euvolemic continue diamox 500mg iv q8h for metabolic alkalosis. GI: Monitor LFT's ( trending down), on Protonix 40mg daily for GI prophylaxis US liver: Fatty liver and cholelithiasis. On TF Glucerna 1.5 @ 45ml/hr, minimal residual consult GI for PEG tube placement-plan for today ID: s/p full course of broad spectrum abx. blood and sputum cx 08/15- NGTD strep pneumonia and Legionella urinary Ag negative Blood cultures 08/28: NGTD Sputum culture 08/28: Pseudomonas CDiff negative 08/28. Lines changed 08/28. d/cd Cefepime continue Levaquin 750mg iv q24h for a full 10day day course (anticipated stop date 09/04) for Pseudomonas VAP Heme: Monitor CBC Endo: on SSI ( medium scale) for glycemic control On Synthroid 200mcg daily. TSH 1.37 GI prophylaxis- Protonix 40mg daily DVT prophylaxis- On Heparin SQ Lines: - Left SC TLC 08/28 - [facility] Case management to start LTAC work-up. Need trach/PEG CCT 35 MIN Problem Qualifiers (1) CHF (congestive heart failure): Qualified Code: I50.9 - Acute congestive heart failure, unspecified congestive heart failure type (2) Respiratory failure: Qualified Code: J96.02 - Acute respiratory failure with hypercapnia (3) Pneumonia: Qualified Code: J18.9 - Pneumonia of both lungs due to infectious organism, unspecified part of lung Darian Wylie MD Sep 01, 2016 11:23
--- NOTE | 2016-09-01 12:18 | HHI.PR ---
Subjective Remarks Sedated on the vent .Still FIO2 at 40 %. PEEP is at 8 CM. Had PEG today Needs inge.Pseudomonas on trach culture, and on antibiotics Objective Vital Signs Date Time Temp Pulse Resp B/P Pulse Ox O2 Delivery O2 Flow Rate FiO2 09/01/16 11:19 93 50 09/01/16 10:00 73 09/01/16 09:44 25 09/01/16 08:00 99.3 74 27 117/58 93 09/01/16 08:00 40 09/01/16 08:00 74 09/01/16 07:49 98 40 09/01/16 06:00 71 09/01/16 04:56 92 50 09/01/16 04:37 95 40 09/01/16 04:00 92 09/01/16 04:00 99.1 92 20 137/78 96 09/01/16 04:00 40 09/01/16 02:00 59 09/01/16 01:22 94 40 09/01/16 00:00 98.6 58 23 105/54 99 09/01/16 00:00 40 09/01/16 00:00 58 08/31/16 22:50 100 40 08/31/16 22:00 66 08/31/16 20:00 62 08/31/16 20:00 99.1 62 23 143/67 98 08/31/16 20:00 40 08/31/16 19:24 99 40 08/31/16 18:00 57 08/31/16 16:00 98.2 68 21 121/64 100 08/31/16 16:00 40 08/31/16 16:00 59 08/31/16 15:21 99 40 08/31/16 14:00 65 08/31/16 13:53 40 I/O 08/31/16 08/31/16 08/31/16 09/01/16 09/01/16 09/01/16 07:00 15:00 23:00 07:00 15:00 23:00 Intake Total 725 ml 60 ml 1380 ml 405 ml 58 ml Output Total 365 ml 540 ml 605.0 ml 660.0 ml Balance 360 ml -480 ml 775.0 ml -255.0 ml 58 ml IV Total 410 ml 1260 ml 345 ml 58 ml Tube Feeding 315 ml 60 ml 60 ml 0 ml Other 60 ml 60 ml Output Urine Total 340 ml 540 ml 545 ml 550 ml Stool Total 25 ml 60 ml 50 ml Tube Feeding Residual Discard 0 ml 60.0 ml Result Diagram: 08/31/16 0345 08/31/16 1855 Objective Remarks This is an obese middle-aged white female who is sedated. HEENT: Head normocephalic. Pupils react, and throat clear. Neck: No bruits, no thyroid enlargement, no lymphadenopathy. Chest: Decreased breath sounds.Occ wheeze heard. Heart: Heart sounds were regular. S1-S2 no murmur, no S3. Abdomen: Soft, benign. No masses, or tenderness. Bowel sounds are active. Extremities: No edema . Neuro : She is sedated. Assessment and Plan Assessment and Plan IMPRESSION 1. Acute hypercapnic respiratory failure. 2. Pulmonary edema. 3. Basilar pneumonia 4. Obstructive sleep apnea syndrome 5. Hypertension 6. Hypothyroidism. 7. Obesity. Plan : 1. Cont Antibiotics. 2. Wean FIo2 to keep sat >92. 3. Nebs qid , duoneb. 4. Reduce sedation. 5. CPAP trial daily. 6. Trach suction and lavage. 7. Tube feeds at 50 CC 8. For trach this week. 9. Cont Bumex 1 mg bid Abimael Beck MD Sep 01, 2016 12:18
[2016-09-01] MEDS: PRAVASTATIN SOD 20 MG TAB PO SCH (20:11)
[2016-09-02] VITALS (20 sets, daily range): BP systolic 112–130; BP diastolic 54–61; PULSE 61–87; RESP 16–28; TEMP 98.9–101.1; O2SAT 93–99
--- NOTE | 2016-09-02 02:32 | RADRPT ---
EXAM DATE/TIME: 09/02/2016 01:23 [facility] COMPARISON: CT PULMONARY ANGIOGRAM, August 15, 2016, 2:33. CHEST SINGLE AP, September 01, 2016, 4:28. INDICATIONS : Shortness of breath, possible pulmonary disease. MEDICAL HISTORY : Hypertension. Hypercholesterolemia. Sleep Apnea SURGICAL HISTORY : None. ENCOUNTER: Subsequent ACUITY: 2 weeks PAIN SCORE: Non-responsive. LOCATION: Bilateral chest FINDINGS: ET tube and left subclavian line are well placed. The heart size is within normal limits. There some widening of the superior mediastinum. There continues to be increased density in the left upper lung and left perihilar region. There is an increased density at the right base with silhouetting of the r ight hemidiaphragm. CONCLUSION: Persistent suspected consolidation in the left upper lung and right base. Dejan Tucker MD on September 02, 2016 at 2:29 Board Certified Radiologist. This report was verified electronically.
[2016-09-02] MEDS: RESP: ALBUTEROL 2.5 MG/IPRATROPIUM 0.5 MG NEB (SCH) INH ×6 (03:36→23:22)
[2016-09-02] MEDS: INSULIN NovoLIN REGULAR SUPPLEMENTAL SCALE SQ SCH ×4 (04:00→22:00)
[2016-09-02] MEDS: CHLORHEXIDINE GLUCONATE 2 % 1 PACK (2 CLOTHS) TOP SCH (04:00)
[2016-09-02] MEDS: PROPOFOL 1000 MG/100 ML INJ 100 ML IV SCH ×5 (04:15→20:20)
[2016-09-02] MEDS: oxyCODONE HCL ORAL CONC 20 MG/ML SYRINGE PO SCH ×5 (04:15→20:20)
[2016-09-02 04:56] LABS: AUTOMATED NEUTROPHIL # 8.6 TH/MM3 (1.8-7.7); BASOPHIL # 0.1 TH/MM3 (0-0.2); BASOPHIL % 0.9 % (0.0-2.0); EOSINOPHIL # 0.2 TH/MM3 (0-0.4); EOSINOPHIL % 1.7 % (0.0-4.0); LYMPH % 10.1 % (9.0-44.0); LYMPHOCYTE # 1.1 TH/MM3 (1.0-4.8); MEAN CELL VOLUME 86.8 FL (80.0-100.0); MEAN CORPUSCULAR HEMOGLOBIN 27.6 PG (27.0-34.0); MEAN CORPUSCULAR HGB CONC 31.8 % (32.0-36.0); MONO % 6.6 % (0.0-8.0); NEUT % 80.7 % (16.0-70.0); PLATELET COUNT 239 TH/MM3 (150-450); RED BLOOD COUNT 3.92 MIL/MM3 (4.00-5.30); RED CELL DISTRIBUTION WIDTH 16.6 % (11.6-17.2); WHITE BLOOD COUNT 10.7 TH/MM3 (4.0-11.0)
[2016-09-02 05:15] LABS: HEMO FLAGS AUTO DIFF
[2016-09-02 05:57] LABS: ALKALINE PHOSPHATASE 89 U/L (45-117); ALT (GPT) 42 U/L (10-53); ANION GAP 8 MEQ/L (5-15); AST (GOT) 19 U/L (15-37); BICARBONATE 25.9 MEQ/L (21.0-32.0); BLOOD UREA NITROGEN 12 MG/DL (7-18); CHLORIDE 104 MEQ/L (98-107); GLOMERULAR FILTRATION RATE 214 ML/MIN (>89); MAGNESIUM 2.2 MG/DL (1.5-2.5); POTASSIUM 3.2 MEQ/L (3.5-5.1); SODIUM (NA) 138 MEQ/L (136-145); TOTAL BILIRUBIN ADULT 0.5 MG/DL (0.2-1.0)
[2016-09-02] MEDS: LEVOTHYROXINE SODIUM 200 MCG TAB PO SCH (06:01)
[2016-09-02] MEDS: QUEtiapine FUMARATE 25 MG TAB PO SCH ×3 (06:01→22:15)
[2016-09-02] MEDS: LEVOFLOXACIN 750 MG PREMIX INJ 150 ML IV SCH (07:43)
[2016-09-02] MEDS: ACETAMINOPHEN 325 MG TAB PO PRN (07:43)
[2016-09-02] MEDS: predniSONE 5 MG/5 ML CUP PO SCH (08:44)
[2016-09-02] MEDS: PANTOPRAZOLE SODIUM 40 MG VIAL IV PUSH SCH (08:44)
[2016-09-02] MEDS: SODIUM CHLORIDE 0.9% FLUSH 10 ML FLUSH IVF PRN (08:45)
[2016-09-02] MEDS: ARTIFICIAL TEARS OPTH SOLN 15 ML BTL EACH EYE SCH ×3 (08:45→17:09)
[2016-09-02] MEDS: BENEPROTEIN POWDER 1 PACK G-TUBE SCH ×3 (08:45→17:09)
[2016-09-02] MEDS: SODIUM CHLORIDE 0.9% FLUSH 10 ML FLUSH IV FLUSH SCH ×2 (08:45→20:19)
[2016-09-02] MEDS: fentaNYL DRIP 250 ML IV SCH (08:45)
[2016-09-02] MEDS: POTASSIUM CHLOR 40 MEQ PREMIX 100 ML IV PRN ×2 (08:46→13:36)
[2016-09-02] MEDS ORDERED: VANCOMYCIN INJ 1,000 MG in SODIUM CHLOR 0.9% 250 ML INJ 250 ML IV SCH (09:30)
[2016-09-02] MEDS: CEFEPIME INJ 2,000 MG in SODIUM CHLORIDE 0.9% INJ 100 ML IV SCH ×2 (10:06→17:08)
--- NOTE | 2016-09-02 10:21 | HHI.CCPN ---
Subjective Remarks/Hospital Course 56-year-old morbidly obese female brought in the emergency department in respiratory distress. She was intubated by ER attending. She has been sick for about a week with symptoms consistent with UTI. She's had fevers and chills. She's been short of breath. She's had fatigue. She has had a cough and chest pain with coughing. The family reports that she's been delirious for the last 3 days. 08/15 Patient is sedated with Diprivan, Versed, Fentanyl and intubated. CTA chest showed no PE multifocal consolidation greatest in RLL. Tmax 100.6 08/16 Patient is sedated with Diprivan and Fentanyl. Afebrile. CXR this morning showed increase consolidation. 08/17 Patient remains sedated and intubated. T:100.4 On PRVC/AC RR 18, Tv 500, IT :1.0 PEEP:10, FIO2 75% 08/18 Remains sedated and intubated. Afebrile. CXR this morning unchanged bibasilar infiltrates and effusions. 08/19 Patient was placed on rotoprone bed last night for proning sedated with Diprivan, Versed and Fentnayl in addition she is on Nimbex. On PRVC/AC RR 20, TV 400, IT:1.1, PEEP:14 and FIO2 80%. Afebrile. 08/20 Patient remains sedated and intubated. Remains on PRVC/AC mode with improvements in her oxygenation on FIO2 50% from 80% yesterday and PEEP:12. 08/21 Patient remains sedated and intubated. On PRVC/AC mode with RR 20, TV 400, IT:1.1, PEEP: 12 and FIO2 50%. Afebrile. 08/22 No acute events overnight. Remains sedated, intubated and on Nimbex.. T: 99.8. On PRVC mode with PEP: 12, FIO2 50%. CXR from yesterday showed better aeration, RLL infiltrate unchanged. 08/23 Chest x-ray worsening. Methylprednisolone taper to twice a day by pulmonary. The patient's FiO2 was found to be 100% this a.m., will continue to wean. 08/24: 1 desat episode yesterday when supine. still remains prone now. no vasopressors. sedated and paralyzed. 08/25: flolan added yesterday. fio2 down to 60%. remained supine all night. still on neuromuscular blockade. net -500cc/24h. 08/26: good diuresis. remained supine. fio2 70%. weaning flolan. remains with significant respiratory support and high peep despite 6L diuresis overnight. Cr still stable. 08/27: continues with good diuresis. net negative 3L/24h. fio2 down to 55%. flolan off. still high peep. not ready for SBT. more agitated today. Cr remains stable despite aggressive diuresis. 08/28: diuresis continues. -3.3L/24h. spiked fever overnight with a jump in wbc to 16 this AM. fio2 60%, but her pulmonary improvements have plateaued at this point. still on peep 12. 08/29: net -1.7L/24h. Cr starting to rise. still spiking fevers despite vanc/ cefepime added yesterday. wbc continues to rise. clinically appears infected, although unclear source. peep 10, fio2 60%. will likely need trach. 08/30: net +800cc, but Cr downtrending. appears clinically euvolemic. fever curve downtrending. wbc downtrending. on 40% fio2, peep 8 today. still following commands. 08/31: failed SBT after only 45 minutes yesterday. intubated for > 2 weeks at this point. will attempt to pursue trach/peg today. will continue with pulmonary strengthening. daily SBTs. 09/01 CXR showing increasing bibasilar infiltrate. Failed C Pap trial in 5 minutes due to severe tachypnea. PEG tube today. Family has not decided on trach yet 09/02: Patient febrile to 101.1, CXR increased infiltrate left upper lung and right lower lobe. Pancultured. Cefepime added today and one dose of vancomycin. Continues to fail C Pap trial due to tachypnea and respiratory distress Objective Vital Signs Date Time Temp Pulse Resp B/P Pulse Ox O2 Delivery O2 Flow Rate FiO2 09/02/16 10:14 95 50 09/02/16 08:44 26 09/02/16 08:00 87 09/02/16 08:00 101.1 127/58 Intake and Output 09/01/16 09/01/16 09/02/16 08:00 16:00 00:00 Intake Total 405 ml 670 ml 343 ml Output Total 660.0 ml 600 ml 600 ml Balance -255.0 ml 70 ml -257 ml Result Diagram: 09/02/16 0405 09/02/16 0405 Imaging Last Impressions Chest X-Ray 08/21/16 0000 Signed Impressions: Service Date/Time: Sunday, August 21, 2016 07:23 - CONCLUSION: Better aeration from the prior study. Right lower lobe infiltrate is unchanged. Taco Haas Jr., MD Liver Ultrasound 08/15/16 0000 Signed Impressions: Service Date/Time: Monday, August 15, 2016 15:45 - CONCLUSION: Fatty liver and cholelithiasis. Common bile duct is dilated and common bile duct stone is not excluded. Danyel Escalante MD CT Angiography 08/15/16 0000 Signed Impressions: Service Date/Time: Monday, August 15, 2016 02:33 - CONCLUSION: 1. No evidence for pulmonary embolism. 2. Multifocal consolidation greatest in the right lower lobe and associated adenopathy. Terry Estrada MD Objective Remarks GENERAL: Patient is intubated and sedated, critically ill SKIN: Warm and dry. HEAD: Normocephalic. EYES: No scleral icterus. No injection or drainage. NECK: trachea midline. morbid obesity prevents accurate assessment of JVD. CARDIOVASCULAR: Regular rate and rhythm without murmurs, gallops, or rubs. RESPIRATORY: Breath sounds equal bilaterally. Tachypneic on the ventilator. Few basilar crackles GASTROINTESTINAL: Abdomen obese, soft, non-tender, nondistended. MUSCULOSKELETAL: No cyanosis, or edema. Neuro: RASS -2. follows commands very weakly on sedation hold. Currently sedated with propofol and fentanyl A/P Problem List: (1) CHF (congestive heart failure) ICD Code: I50.9 Status: Acute (2) Respiratory failure ICD Code: J96.90 Status: Acute (3) Pneumonia ICD Code: J18.9 Status: Acute Assessment and Plan ASSESSMENT: Acute hypercapnic and hypoxemic respiratory failure ARDS Pneumonia community-acquired, now with HCAP with pseudomonas Sepsis Agitated delirium/metabolic encephalopathy Elevated LFT Hypokalemia Hypothyroidism Dyslipidemia Mild elevated trop likely 2nd resp failure Morbid obesity Plan Neuro: Fentanyl, propofol for goal RASS -2. Daily sedation vacation. continue seroquel 50mg po q8h for delirium and oxycodone 10mg po q4h femi for pain. Pulm: On PRVC/AC RR 20, TV 400, PEEP 8, IT: 1.1 and FIO2 0.4%. Decrease FIO2 as tiki. for goal spo2 > 88% Bronchodilators, prednisone taper. ICU vent bundle. Pulm is following- Dr. Beck Gen surg consulted for trach. Palliative care following in clarifying goals of care with the family. Not decided on trach yet Vent day , will definitely need trach -will talk to family CV: Monitor HR and BP keep MAP>65mmg Echo showed EG 65-70% : Monitor renal function, I/O's. electrolytes replacement per protocol. clinically euvolemic Hold diamox 500mg iv q8h due to new sepsis GI: Monitor LFT's ( trending down), on Protonix 40mg daily for GI prophylaxis US liver: Fatty liver and cholelithiasis. On TF Glucerna 1.5 @ 45ml/hr, minimal residual s/p PEG placement 09/01/16 ID: On Levaquin for PSAE VAP, add Cefepime and 1 dose of vancomycin. Panculture today. New sepsis due to HCAP blood and sputum cx 08/15- NGTD strep pneumonia and Legionella urinary Ag negative Blood cultures 08/28: NGTD Sputum culture 08/28: Pseudomonas C Diff negative 08/28. Lines changed 08/28. d/cd Cefepime Heme: Monitor CBC Endo: on SSI ( medium scale) for glycemic control On Synthroid 200mcg daily. TSH 1.37 GI prophylaxis- Protonix 40mg daily DVT prophylaxis- On Heparin SQ Lines: - Left SC TLC 08/28 - [facility] - PEG 09/01/16 Case management to start LTAC work-up. Need trach CCT 45 MIN Problem Qualifiers (1) CHF (congestive heart failure): Qualified Code: I50.9 - Acute congestive heart failure, unspecified congestive heart failure type (2) Respiratory failure: Qualified Code: J96.02 - Acute respiratory failure with hypercapnia (3) Pneumonia: Qualified Code: J18.9 - Pneumonia of both lungs due to infectious organism, unspecified part of lung Darian Wylie MD Sep 02, 2016 10:21 Darian Wylie MD Sep 02, 2016 10:21
--- NOTE | 2016-09-02 11:12 | HHI.PR ---
Subjective Remarks Patient remains sedated with Diprivan and Fentanyl and intubated. Spiked fever with T: 101.0 at 8 am. s/p PEG tube placement yesterday Objective Vital Signs Vital Signs Date Time Temp Pulse Resp B/P Pulse Ox O2 Delivery O2 Flow Rate FiO2 09/02/16 10:14 95 50 09/02/16 08:44 26 09/02/16 08:44 26 09/02/16 08:00 50 09/02/16 08:00 87 09/02/16 08:00 101.1 87 28 127/58 94 09/02/16 07:16 94 50 09/02/16 06:00 75 09/02/16 04:06 99 50 09/02/16 04:00 87 09/02/16 04:00 50 09/02/16 04:00 98.9 87 16 124/59 95 09/02/16 02:00 73 09/02/16 01:10 97 50 09/02/16 00:00 99.1 61 16 130/59 97 09/02/16 00:00 61 09/02/16 00:00 50 09/01/16 22:35 94 50 09/01/16 22:00 63 09/01/16 20:17 98 50 09/01/16 20:00 50 09/01/16 20:00 56 09/01/16 20:00 99.1 56 16 127/59 97 09/01/16 18:00 58 09/01/16 16:00 64 09/01/16 16:00 50 09/01/16 16:00 99.1 64 22 132/59 95 09/01/16 14:32 96 50 09/01/16 14:00 68 09/01/16 12:00 72 09/01/16 12:00 99.7 72 25 134/61 93 09/01/16 12:00 50 09/01/16 11:19 93 50 I/O 09/01/16 09/01/16 09/01/16 09/02/16 09/02/16 09/02/16 07:00 15:00 23:00 07:00 15:00 23:00 Intake Total 405 ml 670 ml 343 ml 267 ml Output Total 660.0 ml 600 ml 600 ml 500 ml Balance -255.0 ml 70 ml -257 ml -233 ml IV Total 345 ml 470 ml 293 ml 267 ml Tube Feeding 0 ml Tube Irrigant 200 ml Other 60 ml 50 ml Output Urine Total 550 ml 500 ml 600 ml 500 ml Stool Total 50 ml 100 ml Tube Feeding Residual Discard 60.0 ml Result Diagram: 09/02/16 0405 09/02/16 0405 Other Results Laboratory Tests Test 09/02/16 04:05 White Blood Count 10.7 TH/MM3 Red Blood Count 3.92 MIL/MM3 Hemoglobin 10.8 GM/DL Hematocrit 34.0 % Mean Corpuscular Volume 86.8 FL Mean Corpuscular Hemoglobin 27.6 PG Mean Corpuscular Hemoglobin 31.8 % Concent Red Cell Distribution Width 16.6 % Platelet Count 239 TH/MM3 Mean Platelet Volume 9.3 FL Neutrophils (%) (Auto) 80.7 % Lymphocytes (%) (Auto) 10.1 % Monocytes (%) (Auto) 6.6 % Eosinophils (%) (Auto) 1.7 % Basophils (%) (Auto) 0.9 % Neutrophils # (Auto) 8.6 TH/MM3 Lymphocytes # (Auto) 1.1 TH/MM3 Monocytes # (Auto) 0.7 TH/MM3 Eosinophils # (Auto) 0.2 TH/MM3 Basophils # (Auto) 0.1 TH/MM3 CBC Comment AUTO DIFF Sodium Level 138 MEQ/L Potassium Level 3.2 MEQ/L Chloride Level 104 MEQ/L Carbon Dioxide Level 25.9 MEQ/L Anion Gap 8 MEQ/L Blood Urea Nitrogen 12 MG/DL Creatinine 0.32 MG/DL Estimat Glomerular Filtration 214 ML/MIN Rate Random Glucose 88 MG/DL Calcium Level 8.7 MG/DL Magnesium Level 2.2 MG/DL Total Bilirubin 0.5 MG/DL Aspartate Amino Transf 19 U/L (AST/SGOT) Alanine Aminotransferase 42 U/L (ALT/SGPT) Alkaline Phosphatase 89 U/L Total Protein 6.6 GM/DL Albumin 2.0 GM/DL Objective Remarks GENERAL: Patient is 56y intubated and sedated SKIN: Warm and dry. HEAD: Normocephalic. EYES: No scleral icterus. No injection or drainage. NECK: Supple, trachea midline. No JVD or lymphadenopathy. CARDIOVASCULAR: Regular rate and rhythm without murmurs, gallops, or rubs. RESPIRATORY: Breath sounds equal bilaterally. No accessory muscle use. GASTROINTESTINAL: Abdomen soft, non-tender, nondistended. MUSCULOSKELETAL: No cyanosis, or edema. Neuro: Sedated A/P Assessment and Plan 1)VDRF 2)Pneumonia - sputum cx: Pseudomonas 3)Obstructive sleep apnea syndrome 4)Hypertension 5)Hypothyroidism. 6)Obesity 7)Anemia Plan Continue with vent support keep sat >92% Bronchodilators, ICU vent bundle On Prednisone 5 mg daily-taper dose. On PRVC/AC RR 16, TV 500, IT: 1.10, PEEP:8, FIO2 50%. Decrease FIO2 40%. CXR this morning showed TRELL consolidation and right base. Continue with abx ( Levaquin, Cefepime started today, Vanco x1 dose given) Follow up on sputum cx, check BC. Daughter agreed for trach per nursing staff. GI/DVT prophylaxis Continue treatment plan. Ute Santamaria MD Sep 02, 2016 11:12
--- NOTE | 2016-09-02 11:14 | HHI.GIFU ---
Subjective Remarks Pt sedated,on vent. (Maria Isabel Wayne) Objective Vitals I&O Vital Signs Date Time Temp Pulse Resp B/P Pulse Ox O2 Delivery O2 Flow Rate FiO2 09/02/16 10:14 95 50 09/02/16 08:44 26 09/02/16 08:44 26 09/02/16 08:00 50 09/02/16 08:00 87 09/02/16 08:00 101.1 87 28 127/58 94 09/02/16 07:16 94 50 09/02/16 06:00 75 09/02/16 04:06 99 50 09/02/16 04:00 87 09/02/16 04:00 50 09/02/16 04:00 98.9 87 16 124/59 95 09/02/16 02:00 73 09/02/16 01:10 97 50 09/02/16 00:00 99.1 61 16 130/59 97 09/02/16 00:00 61 09/02/16 00:00 50 09/01/16 22:35 94 50 09/01/16 22:00 63 09/01/16 20:17 98 50 09/01/16 20:00 50 09/01/16 20:00 56 09/01/16 20:00 99.1 56 16 127/59 97 09/01/16 18:00 58 09/01/16 16:00 64 09/01/16 16:00 50 09/01/16 16:00 99.1 64 22 132/59 95 09/01/16 14:32 96 50 09/01/16 14:00 68 09/01/16 12:00 72 09/01/16 12:00 99.7 72 25 134/61 93 09/01/16 12:00 50 09/01/16 11:19 93 50 I/O 09/01/16 09/01/16 09/01/16 09/02/16 09/02/16 09/02/16 07:00 15:00 23:00 07:00 15:00 23:00 Intake Total 405 ml 670 ml 343 ml 267 ml Output Total 660.0 ml 600 ml 600 ml 500 ml Balance -255.0 ml 70 ml -257 ml -233 ml IV Total 345 ml 470 ml 293 ml 267 ml Tube Feeding 0 ml Tube Irrigant 200 ml Other 60 ml 50 ml Output Urine Total 550 ml 500 ml 600 ml 500 ml Stool Total 50 ml 100 ml Tube Feeding Residual Discard 60.0 ml Laboratory Laboratory Tests Test 09/02/16 04:05 White Blood Count 10.7 Red Blood Count 3.92 Hemoglobin 10.8 Hematocrit 34.0 Mean Corpuscular Volume 86.8 Mean Corpuscular Hemoglobin 27.6 Mean Corpuscular Hemoglobin 31.8 Concent Red Cell Distribution Width 16.6 Platelet Count 239 Mean Platelet Volume 9.3 Neutrophils (%) (Auto) 80.7 Lymphocytes (%) (Auto) 10.1 Monocytes (%) (Auto) 6.6 Eosinophils (%) (Auto) 1.7 Basophils (%) (Auto) 0.9 Neutrophils # (Auto) 8.6 Lymphocytes # (Auto) 1.1 Monocytes # (Auto) 0.7 Eosinophils # (Auto) 0.2 Basophils # (Auto) 0.1 CBC Comment AUTO DIFF Sodium Level 138 Potassium Level 3.2 Chloride Level 104 Carbon Dioxide Level 25.9 Anion Gap 8 Blood Urea Nitrogen 12 Creatinine 0.32 Estimat Glomerular Filtration 214 Rate Random Glucose 88 Calcium Level 8.7 Magnesium Level 2.2 Total Bilirubin 0.5 Aspartate Amino Transf 19 (AST/SGOT) Alanine Aminotransferase 42 (ALT/SGPT) Alkaline Phosphatase 89 Total Protein 6.6 Albumin 2.0 Date/Time Procedure Status Source Growth 09/02/16 09:38 Gram Stain Received Sputum Endotracheal Pending 09/02/16 09:38 Sputum Culture Received Sputum Endotracheal Pending 09/02/16 09:12 Urine Culture Received Urine Catheterized Urine Pending Imaging Last Impressions Chest X-Ray 09/02/16 0600 Signed Impressions: Service Date/Time: Friday, September 02, 2016 01:23 - CONCLUSION: Persistent suspected consolidation in the left upper lung and right base. Dejan Tucker MD Gall Bladder Ultrasound 08/29/16 0000 Signed Impressions: Service Date/Time: Monday, August 29, 2016 15:21 - CONCLUSION: 1. Hepatomegaly with heterogeneous echotexture throughout the liver. 2. There is a large echogenic area near the neck of the gallbladder suggestive of a stone, but despite its large size, demonstrates no acoustic shadowing in any of the views. Taco Davidson MD Liver Ultrasound 08/15/16 0000 Signed Impressions: Service Date/Time: Monday, August 15, 2016 15:45 - CONCLUSION: Fatty liver and cholelithiasis. Common bile duct is dilated and common bile duct stone is not excluded. Danyel Escalante MD CT Angiography 08/15/16 0000 Signed Impressions: Service Date/Time: Monday, August 15, 2016 02:33 - CONCLUSION: 1. No evidence for pulmonary embolism. 2. Multifocal consolidation greatest in the right lower lobe and associated adenopathy. Terry Estrada MD Physical Exam HEENT: pt on vent, normocephalic NECK: Neck is supple CHEST: course breath sounds CARDIAC: Regular rate and rhythm with no murmur gallop or rubs. ABDOMEN: Soft, obese; bowel sounds are present in all four quadrants. Peg site clean, dry, no redness or drainage. EXTREMITIES: No clubbing, cyanosis, or edema. SKIN: Normal; no rash; no jaundice. 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 In ICU being treated for acute respiratory failure, CHF, pneumonia, hypothyroidism, and multiple electrolyte abnormalities. s/p peg tube placement, EGD showed erythematous gastritis. PLAN: - await recommendation from dietary re TF - Supportive care -Pt seen and examined by Dr. Cooper and myself and this note is written on his behalf (Maria Isabel Wayne) Physician Comments Patient was seen and examined, agree with above note and plan, we will sign off. PEG tube site is in good condition, start previous feeding gradually ( Terra Cooper MD) Maria Isabel Wayne Sep 02, 2016 11:14 Terra Cooper MD Sep 02, 2016 16:51
[2016-09-02 11:39] LABS: BANDS 13 % (0-6); EOSINOPHILS 1 % (0-4); NEUTROPHIL # MANUAL DIFF 9.2 TH/MM3 (1.8-7.7); PLATELET ESTIMATE SMEAR NORMAL (NORMAL); PLATELET MORPHOLOGY NORMAL (NORMAL); POLYS (SEG NEUTROPHILS) 73 % (16-70); SCAN/DIFF FINAL DIFF MANUAL; WBC DIFF SAMPLE 100
[2016-09-02] MEDS: DOCUSATE SODIUM 100 MG/10 ML UDC G-TUBE SCH ×2 (11:54→22:15)
[2016-09-02] MEDS: PRAVASTATIN SOD 20 MG TAB PO SCH (20:20)
[2016-09-03] VITALS (20 sets, daily range): BP systolic 100–132; BP diastolic 54–68; PULSE 81–125; RESP 16–28; TEMP 98.5–101; O2SAT 90–95
[2016-09-03] MEDS: PROPOFOL 1000 MG/100 ML INJ 100 ML IV SCH ×5 (00:33→22:51)
[2016-09-03] MEDS: fentaNYL DRIP 250 ML IV SCH ×2 (00:34→17:23)
[2016-09-03] MEDS: CHLORHEXIDINE GLUCONATE 2 % 1 PACK (2 CLOTHS) TOP SCH (03:04)
[2016-09-03] MEDS: CEFEPIME INJ 2,000 MG in SODIUM CHLORIDE 0.9% INJ 100 ML IV SCH ×3 (03:04→17:21)
[2016-09-03] MEDS: RESP: ALBUTEROL 2.5 MG/IPRATROPIUM 0.5 MG NEB (SCH) INH ×5 (03:21→20:04)
[2016-09-03] MEDS: INSULIN NovoLIN REGULAR SUPPLEMENTAL SCALE SQ SCH ×4 (04:00→22:50)
[2016-09-03] MEDS: ACETAMINOPHEN 325 MG TAB PO PRN ×2 (05:00→22:50)
[2016-09-03] MEDS: oxyCODONE HCL ORAL CONC 20 MG/ML SYRINGE PO SCH ×6 (05:00→20:31)
[2016-09-03] MEDS: LEVOTHYROXINE SODIUM 200 MCG TAB PO SCH (05:01)
[2016-09-03] MEDS: QUEtiapine FUMARATE 25 MG TAB PO SCH ×3 (05:01→22:50)
[2016-09-03 06:39] LABS: BLOOD GAS BASE EXCESS -3.3 mmol/L (-2-2); BLOOD GAS CARBOXYHEMOGLOBIN 1.7 % (0-4); BLOOD GAS HCO3 21 mmol/L (22-26); BLOOD GAS METHEMOGLOBIN 1.1 % (0-2); BLOOD GAS O2 HGB SATURATION 90 % (90-100); BLOOD GAS OXYGEN CONTENT 13.9 Vol % (12.0-20.0); BLOOD GAS PCO2 40 mmHg (38-42); BLOOD GAS PO2 68 mmHg (61-120); TEMP CORR TO 98.6
[2016-09-03 06:40] LABS: CRITICAL VALUE NO; OXYGEN DEVICE VENTILATOR
[2016-09-03 06:41] LABS: DRAW SITE RT RADIAL; FIO2 70 %; NUMBER OF ARTERIAL PUNCTURES 1; STAT NO; ULNAR PULSE PRESENT; VENT SETTINGS PRVC/AC
[2016-09-03] MEDS: BENEPROTEIN POWDER 1 PACK G-TUBE SCH ×3 (09:00→17:23)
[2016-09-03] MEDS: SODIUM CHLORIDE 0.9% FLUSH 10 ML FLUSH IV FLUSH SCH ×2 (09:00→20:31)
[2016-09-03] MEDS: PANTOPRAZOLE SODIUM 40 MG VIAL IV PUSH SCH (09:02)
[2016-09-03] MEDS: LEVOFLOXACIN 750 MG PREMIX INJ 150 ML IV SCH (09:03)
[2016-09-03] MEDS: ARTIFICIAL TEARS OPTH SOLN 15 ML BTL EACH EYE SCH ×3 (09:04→17:23)
[2016-09-03] MEDS: DOCUSATE SODIUM 100 MG/10 ML UDC G-TUBE SCH ×2 (12:20→22:50)
--- NOTE | 2016-09-03 14:07 | RADRPT ---
EXAM DATE/TIME: 09/03/2016 13:13 [facility] COMPARISON: CHEST SINGLE AP, September 02, 2016, 1:23. INDICATIONS : Respiratory distress MEDICAL HISTORY : Hypertension. Hypercholesterolemia. SURGICAL HISTORY : None. ENCOUNTER: Initial ACUITY: 2 weeks PAIN SCORE: Non-responsive. LOCATION: Bilateral chest FINDINGS: Portable supine view of the chest is obtained. Stable appearance of endotracheal tube with the tip at the level of the clavicles. There is improved aeration of the right hemithorax. There is stable to h azy increased opacity of the left hemithorax. The heart size appears grossly normal. CONCLUSION: Improved aeration of the right hemithorax. Stable appearance of the left. Samantha Montenegro MD on September 03, 2016 at 14:04 Board Certified Radiologist. This report was verified electronically.
--- NOTE | 2016-09-03 14:18 | HHI.CCPN ---
Subjective Remarks/Hospital Course 56-year-old morbidly obese female brought in the emergency department in respiratory distress. She was intubated by ER attending. She has been sick for about a week with symptoms consistent with UTI. She's had fevers and chills. She's been short of breath. She's had fatigue. She has had a cough and chest pain with coughing. The family reports that she's been delirious for the last 3 days. 08/15 Patient is sedated with Diprivan, Versed, Fentanyl and intubated. CTA chest showed no PE multifocal consolidation greatest in RLL. Tmax 100.6 08/16 Patient is sedated with Diprivan and Fentanyl. Afebrile. CXR this morning showed increase consolidation. 08/17 Patient remains sedated and intubated. T:100.4 On PRVC/AC RR 18, Tv 500, IT :1.0 PEEP:10, FIO2 75% 08/18 Remains sedated and intubated. Afebrile. CXR this morning unchanged bibasilar infiltrates and effusions. 08/19 Patient was placed on rotoprone bed last night for proning sedated with Diprivan, Versed and Fentnayl in addition she is on Nimbex. On PRVC/AC RR 20, TV 400, IT:1.1, PEEP:14 and FIO2 80%. Afebrile. 08/20 Patient remains sedated and intubated. Remains on PRVC/AC mode with improvements in her oxygenation on FIO2 50% from 80% yesterday and PEEP:12. 08/21 Patient remains sedated and intubated. On PRVC/AC mode with RR 20, TV 400, IT:1.1, PEEP: 12 and FIO2 50%. Afebrile. 08/22 No acute events overnight. Remains sedated, intubated and on Nimbex.. T: 99.8. On PRVC mode with PEP: 12, FIO2 50%. CXR from yesterday showed better aeration, RLL infiltrate unchanged. 08/23 Chest x-ray worsening. Methylprednisolone taper to twice a day by pulmonary. The patient's FiO2 was found to be 100% this a.m., will continue to wean. 08/24: 1 desat episode yesterday when supine. still remains prone now. no vasopressors. sedated and paralyzed. 08/25: flolan added yesterday. fio2 down to 60%. remained supine all night. still on neuromuscular blockade. net -500cc/24h. 08/26: good diuresis. remained supine. fio2 70%. weaning flolan. remains with significant respiratory support and high peep despite 6L diuresis overnight. Cr still stable. 08/27: continues with good diuresis. net negative 3L/24h. fio2 down to 55%. flolan off. still high peep. not ready for SBT. more agitated today. Cr remains stable despite aggressive diuresis. 08/28: diuresis continues. -3.3L/24h. spiked fever overnight with a jump in wbc to 16 this AM. fio2 60%, but her pulmonary improvements have plateaued at this point. still on peep 12. 08/29: net -1.7L/24h. Cr starting to rise. still spiking fevers despite vanc/ cefepime added yesterday. wbc continues to rise. clinically appears infected, although unclear source. peep 10, fio2 60%. will likely need trach. 08/30: net +800cc, but Cr downtrending. appears clinically euvolemic. fever curve downtrending. wbc downtrending. on 40% fio2, peep 8 today. still following commands. 08/31: failed SBT after only 45 minutes yesterday. intubated for > 2 weeks at this point. will attempt to pursue trach/peg today. will continue with pulmonary strengthening. daily SBTs. 09/01 CXR showing increasing bibasilar infiltrate. Failed C Pap trial in 5 minutes due to severe tachypnea. PEG tube today. Family has not decided on trach yet 09/02: Patient febrile to 101.1, CXR increased infiltrate left upper lung and right lower lobe. Pancultured. Cefepime added today and one dose of vancomycin. Continues to fail C Pap trial due to tachypnea and respiratory distress 09/03: Remains hypoxemic on 75% oxygen with new pneumonia. Sputum culture 09/02/16 with GNR. Family agreeable for tracheostomy but patient is not stable at this point for trach Objective Vital Signs Date Time Temp Pulse Resp B/P Pulse Ox O2 Delivery O2 Flow Rate FiO2 09/03/16 13:40 92 75 09/03/16 10:00 90 09/03/16 08:00 99.1 28 100/54 Intake and Output 09/02/16 09/02/16 09/03/16 08:00 16:00 00:00 Intake Total 267 ml 922 ml 432 ml Output Total 500 ml 1400 ml 1000 ml Balance -233 ml -478 ml -568 ml Result Diagram: 09/02/16 0405 09/02/16 1655 Other Results Laboratory Tests Test 09/03/16 06:29 Blood Gas Puncture Site RT RADIAL Blood Gas Patient Temperature 98.6 Blood Gas HCO3 21 mmol/L (22-26) Blood Gas Base Excess -3.3 mmol/L (-2-2) Blood Gas Oxygen Saturation 90 % (90-100) Arterial Blood pH 7.35 (7.380-7.420) Arterial Blood Partial 40 mmHg (38-42) Pressure CO2 Arterial Blood Partial 68 mmHg Pressure O2 (61-120) Arterial Blood Oxygen Content 13.9 Vol % (12.0-20.0) Arterial Blood 1.7 % (0-4) Carboxyhemoglobin Arterial Blood Methemoglobin 1.1 % (0-2) Blood Gas Hemoglobin 11.0 G/DL (12.0-16.0) Oxygen Delivery Device VENTILATOR Blood Gas Ventilator Setting PRVC/AC Blood Gas Inspired Oxygen 70 % Imaging Last Impressions Chest X-Ray 08/21/16 0000 Signed Impressions: Service Date/Time: Sunday, August 21, 2016 07:23 - CONCLUSION: Better aeration from the prior study. Right lower lobe infiltrate is unchanged. Taco Haas Jr., MD Liver Ultrasound 08/15/16 0000 Signed Impressions: Service Date/Time: Monday, August 15, 2016 15:45 - CONCLUSION: Fatty liver and cholelithiasis. Common bile duct is dilated and common bile duct stone is not excluded. Danyel Escalante MD CT Angiography 08/15/16 0000 Signed Impressions: Service Date/Time: Monday, August 15, 2016 02:33 - CONCLUSION: 1. No evidence for pulmonary embolism. 2. Multifocal consolidation greatest in the right lower lobe and associated adenopathy. Terry Estrada MD Objective Remarks GENERAL: Patient is intubated and sedated, critically ill SKIN: Warm and dry. HEAD: Normocephalic. EYES: No scleral icterus. No injection or drainage. NECK: trachea midline. morbid obesity prevents accurate assessment of JVD. CARDIOVASCULAR: Regular rate and rhythm without murmurs, gallops, or rubs. RESPIRATORY: Breath sounds equal bilaterally. Tachypneic on the ventilator. Few basilar crackles GASTROINTESTINAL: Abdomen obese, soft, non-tender, nondistended. MUSCULOSKELETAL: No cyanosis, or edema. Neuro: RASS -2. follows commands very weakly on sedation hold. Currently sedated with propofol and fentanyl Urinary Catheter: Yes Assessment to: Continue A/P Problem List: (1) CHF (congestive heart failure) ICD Code: I50.9 Status: Acute (2) Respiratory failure ICD Code: J96.90 Status: Acute (3) Pneumonia ICD Code: J18.9 Status: Acute (4) ARDS (adult respiratory distress syndrome) ICD Code: J80 Status: Acute Assessment and Plan ASSESSMENT: Acute hypercapnic and hypoxemic respiratory failure ARDS Pneumonia community-acquired, now with HCAP with pseudomonas Sepsis Agitated delirium/metabolic encephalopathy Elevated LFT Hypokalemia Hypothyroidism Dyslipidemia Mild elevated trop likely 2nd resp failure Morbid obesity PLAN: Neuro: Fentanyl, propofol for goal RASS -2. Hold Daily sedation vacation due to hypoxia. continue Seroquel 50mg po q8h for delirium and oxycodone 10mg po q4h femi for pain. Pulm: On PRVC/AC RR 18, TV 550, PEEP 12, IT: 1.1 and FIO2 0.75%. Decrease FIO2 as tiki. for goal spo2 > 88% Bronchodilators, prednisone taper. ICU vent bundle. Pulm is following- Dr. Kiran Culver surg consulted for trach. Palliative care following in clarifying goals of care with the family. Not decided on trach yet Vent day 20, family agreeable for trach -currently not stable resp thompson for trach. Gen surgery on board CV: Monitor HR and BP keep MAP>65mmg Echo showed EG 65-70% : Monitor renal function, I/O's. electrolytes replacement per protocol. Clinically euvolemic Holding Diamox 500mg iv q8h due to new sepsis GI: Monitor LFT's ( trending down), on Protonix 40mg daily for GI prophylaxis US liver: Fatty liver and cholelithiasis. Repeat US if fever persists On TF Glucerna 1.5 @ 45ml/hr, minimal residual s/p PEG placement 09/01/16 ID: On Levaquin for PSAE VAP, added Cefepime scheduled and 1 dose of vancomycin on 09/02. New sepsis due to HCAP blood and sputum cx 08/15- NGTD strep pneumonia and Legionella urinary Ag negative Blood cultures 08/28: NGTD Sputum culture 08/28: Pseudomonas C Diff negative 08/28. Lines changed 08/28. Sputum 09/02 GNR Heme: Monitor CBC Endo: on SSI ( medium scale) for glycemic control On Synthroid 200mcg daily. TSH 1.37 GI prophylaxis- Protonix 40mg daily DVT prophylaxis- On Heparin SQ Lines: - Left SC TLC 08/28 - Miller - PEG 09/01/16 Not stable for trach at this time. Anticipate transfer to LTAC after Trach CCT 45 MIN Problem Qualifiers (1) CHF (congestive heart failure): Qualified Code: I50.9 - Acute congestive heart failure, unspecified congestive heart failure type (2) Respiratory failure: Qualified Code: J96.02 - Acute respiratory failure with hypercapnia (3) Pneumonia: Qualified Code: J18.9 - Pneumonia of both lungs due to infectious organism, unspecified part of lung Darian Wylie MD Sep 03, 2016 14:18
[2016-09-03] MEDS: PRAVASTATIN SOD 20 MG TAB PO SCH (20:31)
[2016-09-04] VITALS (19 sets, daily range): BP systolic 102–115; BP diastolic 53–57; PULSE 85–114; RESP 16–28; TEMP 98.9–100.1; O2SAT 90–96
[2016-09-04] MEDS: oxyCODONE HCL ORAL CONC 20 MG/ML SYRINGE PO SCH ×6 (00:03→19:31)
[2016-09-04] MEDS: RESP: ALBUTEROL 2.5 MG/IPRATROPIUM 0.5 MG NEB (SCH) INH ×7 (00:50→23:00)
[2016-09-04] MEDS: PROPOFOL 1000 MG/100 ML INJ 100 ML IV SCH ×6 (02:43→22:18)
[2016-09-04] MEDS: CEFEPIME INJ 2,000 MG in SODIUM CHLORIDE 0.9% INJ 100 ML IV SCH ×3 (02:43→18:03)
[2016-09-04] MEDS: CHLORHEXIDINE GLUCONATE 2 % 1 PACK (2 CLOTHS) TOP SCH (04:00)
[2016-09-04 04:43] LABS: AUTOMATED NEUTROPHIL # 12.4 TH/MM3 (1.8-7.7); BASOPHIL % 0.1 % (0.0-2.0); EOSINOPHIL # 0.1 TH/MM3 (0-0.4); EOSINOPHIL % 0.8 % (0.0-4.0); LYMPH % 3.7 % (9.0-44.0); LYMPHOCYTE # 0.5 TH/MM3 (1.0-4.8); MEAN CELL VOLUME 86.1 FL (80.0-100.0); MEAN CORPUSCULAR HEMOGLOBIN 28.1 PG (27.0-34.0); MEAN CORPUSCULAR HGB CONC 32.6 % (32.0-36.0); MONO % 2.6 % (0.0-8.0); NEUT % 92.8 % (16.0-70.0); PLATELET COUNT 229 TH/MM3 (150-450); RED BLOOD COUNT 3.95 MIL/MM3 (4.00-5.30); WHITE BLOOD COUNT 13.4 TH/MM3 (4.0-11.0)
[2016-09-04 04:49] LABS: HEMO FLAGS AUTO DIFF
[2016-09-04 05:07] LABS: ALKALINE PHOSPHATASE 130 U/L (45-117); ALT (GPT) 43 U/L (10-53); ANION GAP 9 MEQ/L (5-15); AST (GOT) 31 U/L (15-37); BICARBONATE 25.9 MEQ/L (21.0-32.0); BLOOD UREA NITROGEN 12 MG/DL (7-18); CHLORIDE 103 MEQ/L (98-107); GLOMERULAR FILTRATION RATE 181 ML/MIN (>89); MAGNESIUM 2.1 MG/DL (1.5-2.5); POTASSIUM 3.5 MEQ/L (3.5-5.1); SODIUM (NA) 138 MEQ/L (136-145); TOTAL BILIRUBIN ADULT 0.6 MG/DL (0.2-1.0)
[2016-09-04] MEDS: QUEtiapine FUMARATE 25 MG TAB PO SCH ×3 (05:07→22:00)
[2016-09-04] MEDS: LEVOTHYROXINE SODIUM 200 MCG TAB PO SCH (05:07)
[2016-09-04] MEDS: INSULIN NovoLIN REGULAR SUPPLEMENTAL SCALE SQ SCH ×4 (05:46→22:00)
--- NOTE | 2016-09-04 06:11 | RADRPT ---
EXAM DATE/TIME: 09/04/2016 03:31 [facility] COMPARISON: CHEST SINGLE AP, September 03, 2016, 13:13. INDICATIONS : Shortness of breath, possible pulmonary disease. MEDICAL HISTORY : Hypertension. Hypercholesterolemia. SURGICAL HISTORY : None. ENCOUNTER: Subsequent ACUITY: 2 weeks PAIN SCORE: Non-responsive. LOCATION: Bilateral chest FINDINGS: A single view of the chest demonstrates slightly improving left upper lobe consolidation. There is al so increased density in the right upper and right lower lobe. Endotracheal tube and left subclavian c entral line unchanged in position. The cardiomediastinal contours are unremarkable. Osseous structur es are intact. CONCLUSION: Slight improvement of left upper lobe air space disease. Patchy densities are seen throughout the rig ht lung. Tyrel White MD on September 04, 2016 at 6:07 Board Certified Radiologist. This report was verified electronically.
[2016-09-04 07:05] LABS: BANDS 32 % (0-6); METAMYELOCYTES 1 % (0-1); NEUTROPHIL # MANUAL DIFF 12.6 TH/MM3 (1.8-7.7); POLYS (SEG NEUTROPHILS) 61 % (16-70); WBC DIFF SAMPLE 100
[2016-09-04 07:06] LABS: PLATELET ESTIMATE SMEAR NORMAL (NORMAL); PLATELET MORPHOLOGY NORMAL (NORMAL); SCAN/DIFF FINAL DIFF MANUAL
[2016-09-04] MEDS: LEVOFLOXACIN 750 MG PREMIX INJ 150 ML IV SCH (07:52)
[2016-09-04] MEDS: PANTOPRAZOLE SODIUM 40 MG VIAL IV PUSH SCH (07:53)
[2016-09-04] MEDS: ARTIFICIAL TEARS OPTH SOLN 15 ML BTL EACH EYE SCH ×3 (07:53→18:03)
[2016-09-04] MEDS: SODIUM CHLORIDE 0.9% FLUSH 10 ML FLUSH IV FLUSH SCH ×2 (09:00→19:31)
[2016-09-04] MEDS: POTASSIUM CHLOR 40 MEQ PREMIX 100 ML IV PRN (09:08)
[2016-09-04] MEDS: BENEPROTEIN POWDER 1 PACK G-TUBE SCH ×3 (09:21→18:03)
[2016-09-04] MEDS: fentaNYL DRIP 250 ML IV SCH ×2 (09:30→22:19)
--- NOTE | 2016-09-04 09:50 | HHI.CCPN ---
Subjective Remarks/Hospital Course 56-year-old morbidly obese female brought in the emergency department in respiratory distress. She was intubated by ER attending. She has been sick for about a week with symptoms consistent with UTI. She's had fevers and chills. She's been short of breath. She's had fatigue. She has had a cough and chest pain with coughing. The family reports that she's been delirious for the last 3 days. 08/15 Patient is sedated with Diprivan, Versed, Fentanyl and intubated. CTA chest showed no PE multifocal consolidation greatest in RLL. Tmax 100.6 08/16 Patient is sedated with Diprivan and Fentanyl. Afebrile. CXR this morning showed increase consolidation. 08/17 Patient remains sedated and intubated. T:100.4 On PRVC/AC RR 18, Tv 500, IT :1.0 PEEP:10, FIO2 75% 08/18 Remains sedated and intubated. Afebrile. CXR this morning unchanged bibasilar infiltrates and effusions. 08/19 Patient was placed on rotoprone bed last night for proning sedated with Diprivan, Versed and Fentnayl in addition she is on Nimbex. On PRVC/AC RR 20, TV 400, IT:1.1, PEEP:14 and FIO2 80%. Afebrile. 08/20 Patient remains sedated and intubated. Remains on PRVC/AC mode with improvements in her oxygenation on FIO2 50% from 80% yesterday and PEEP:12. 08/21 Patient remains sedated and intubated. On PRVC/AC mode with RR 20, TV 400, IT:1.1, PEEP: 12 and FIO2 50%. Afebrile. 08/22 No acute events overnight. Remains sedated, intubated and on Nimbex.. T: 99.8. On PRVC mode with PEP: 12, FIO2 50%. CXR from yesterday showed better aeration, RLL infiltrate unchanged. 08/23 Chest x-ray worsening. Methylprednisolone taper to twice a day by pulmonary. The patient's FiO2 was found to be 100% this a.m., will continue to wean. 08/24: 1 desat episode yesterday when supine. still remains prone now. no vasopressors. sedated and paralyzed. 08/25: flolan added yesterday. fio2 down to 60%. remained supine all night. still on neuromuscular blockade. net -500cc/24h. 08/26: good diuresis. remained supine. fio2 70%. weaning flolan. remains with significant respiratory support and high peep despite 6L diuresis overnight. Cr still stable. 08/27: continues with good diuresis. net negative 3L/24h. fio2 down to 55%. flolan off. still high peep. not ready for SBT. more agitated today. Cr remains stable despite aggressive diuresis. 08/28: diuresis continues. -3.3L/24h. spiked fever overnight with a jump in wbc to 16 this AM. fio2 60%, but her pulmonary improvements have plateaued at this point. still on peep 12. 08/29: net -1.7L/24h. Cr starting to rise. still spiking fevers despite vanc/ cefepime added yesterday. wbc continues to rise. clinically appears infected, although unclear source. peep 10, fio2 60%. will likely need trach. 08/30: net +800cc, but Cr downtrending. appears clinically euvolemic. fever curve downtrending. wbc downtrending. on 40% fio2, peep 8 today. still following commands. 08/31: failed SBT after only 45 minutes yesterday. intubated for > 2 weeks at this point. will attempt to pursue trach/peg today. will continue with pulmonary strengthening. daily SBTs. 09/01 CXR showing increasing bibasilar infiltrate. Failed C Pap trial in 5 minutes due to severe tachypnea. PEG tube today. Family has not decided on trach yet 09/02: Patient febrile to 101.1, CXR increased infiltrate left upper lung and right lower lobe. Pancultured. Cefepime added today and one dose of vancomycin. Continues to fail C Pap trial due to tachypnea and respiratory distress 09/03: Remains hypoxemic on 75% oxygen with new pneumonia. Sputum culture 09/02/16 with GNR. Family agreeable for tracheostomy but patient is not stable at this point for trach 09/04: still on 70% fio2. still hypoxic. pneumonia persists. needs trach, but too unstable at this point. Objective Vital Signs Date Time Temp Pulse Resp B/P Pulse Ox O2 Delivery O2 Flow Rate FiO2 09/04/16 09:16 94 70 09/04/16 06:33 16 09/04/16 06:00 93 09/04/16 04:00 99.2 110/53 Intake and Output 09/03/16 09/03/16 09/04/16 08:00 16:00 00:00 Intake Total 480 ml 1027 ml 728 ml Output Total 550 ml 675 ml 600 ml Balance -70 ml 352 ml 128 ml Result Diagram: 09/04/16 0300 09/04/16 0300 Other Results Microbiology Date/Time Procedure Status Source Growth 09/02/16 09:12 Urine Culture - Final Complete Urine Catheterized Urine NO GROWTH IN 48 HOURS. Imaging Last Impressions Chest X-Ray 08/21/16 0000 Signed Impressions: Service Date/Time: Sunday, August 21, 2016 07:23 - CONCLUSION: Better aeration from the prior study. Right lower lobe infiltrate is unchanged. Taco Haas Jr., MD Liver Ultrasound 08/15/16 0000 Signed Impressions: Service Date/Time: Monday, August 15, 2016 15:45 - CONCLUSION: Fatty liver and cholelithiasis. Common bile duct is dilated and common bile duct stone is not excluded. Danyel Escalante MD CT Angiography 08/15/16 0000 Signed Impressions: Service Date/Time: Monday, August 15, 2016 02:33 - CONCLUSION: 1. No evidence for pulmonary embolism. 2. Multifocal consolidation greatest in the right lower lobe and associated adenopathy. Terry Estrada MD Objective Remarks GENERAL: Patient is intubated and sedated, critically ill SKIN: Warm and dry. HEAD: Normocephalic. EYES: No scleral icterus. No injection or drainage. NECK: trachea midline. morbid obesity prevents accurate assessment of JVD. CARDIOVASCULAR: Regular rate and rhythm without murmurs, gallops, or rubs. RESPIRATORY: Breath sounds equal bilaterally. Tachypneic on the ventilator. Few basilar crackles GASTROINTESTINAL: Abdomen obese, soft, non-tender, nondistended. MUSCULOSKELETAL: No cyanosis, or edema. Neuro: RASS -2. follows commands very weakly on sedation hold. Currently sedated with propofol and fentanyl A/P Problem List: (1) CHF (congestive heart failure) ICD Code: I50.9 Status: Acute (2) Respiratory failure ICD Code: J96.90 Status: Acute (3) Pneumonia ICD Code: J18.9 Status: Acute (4) ARDS (adult respiratory distress syndrome) ICD Code: J80 Status: Acute Assessment and Plan ASSESSMENT: Acute hypercapnic and hypoxemic respiratory failure ARDS Pneumonia community-acquired, now with HCAP with pseudomonas Sepsis Agitated delirium/metabolic encephalopathy Elevated LFT Hypokalemia Hypothyroidism Dyslipidemia Mild elevated trop likely 2nd resp failure Morbid obesity PLAN: Neuro: Fentanyl, propofol for goal RASS -2. Hold Daily sedation vacation due to hypoxia. continue Seroquel 50mg po q8h for delirium and oxycodone 10mg po q4h femi for pain. Pulm: On PRVC/AC RR 22, TV 550, PEEP 12, IT: 1.1 and FIO2 0.70. Decrease FIO2 as tiki. for goal spo2 > 88% Bronchodilators, prednisone taper. ICU vent bundle. Pulm is following- Dr. Kiran Culver surg consulted for trach. Palliative care following in clarifying goals of care with the family. Vent day 21, family agreeable for trach -currently not stable resp thompson for trach. Gen surgery on board CV: Monitor HR and BP keep MAP>65mmg Echo showed EG 65-70% : Monitor renal function, I/O's. electrolytes replacement per protocol. Clinically euvolemic GI: Monitor LFT's ( trending down), on Protonix 40mg daily for GI prophylaxis US liver: Fatty liver and cholelithiasis. Repeat US if fever persists On TF Glucerna 1.5 @ 45ml/hr, minimal residual, restart after PEG. s/p PEG placement 09/01/16 ID: On Levaquin for PSAE VAP, added Cefepime scheduled and 1 dose of vancomycin on 09/02. New sepsis due to HCAP blood and sputum cx 08/15- NG strep pneumonia and Legionella urinary Ag negative Blood cultures 08/28: NGTD Sputum culture 08/28: Pseudomonas C Diff negative 08/28. Lines changed 08/28. Sputum 09/02 GNR, speciation pending. Heme: Monitor CBC Endo: on SSI ( medium scale) for glycemic control On Synthroid 200mcg daily. TSH 1.37 GI prophylaxis- d/c protonix, start prevacid per tube. DVT prophylaxis-restart Heparin SQ Lines: - Left SC TLC 08/28 - Miller - PEG 09/01/16 Not stable for trach at this time. Anticipate transfer to LTAC after Trach CCT 40 minutes, exclusive of separately billable procedures. Problem Qualifiers (1) CHF (congestive heart failure): Qualified Code: I50.9 - Acute congestive heart failure, unspecified congestive heart failure type (2) Respiratory failure: Qualified Code: J96.02 - Acute respiratory failure with hypercapnia (3) Pneumonia: Qualified Code: J18.9 - Pneumonia of both lungs due to infectious organism, unspecified part of lung Tutu Hoffman MD Sep 04, 2016 09:50
[2016-09-04] MEDS: HEPARIN SODIUM - SQ 10,000 UNITS/ML VIAL SQ SCH (15:38)
[2016-09-04] MEDS: SODIUM CHLORIDE 0.9% FLUSH 10 ML FLUSH IVF PRN ×2 (15:42→18:07)
--- NOTE | 2016-09-04 15:48 | HHI.HCPN ---
Reason for visit a. To assist with evaluation and management of symptoms including: dyspnea, pain. b. To assist medical decision maker(s) with: better understanding of current medical conditions; weighing benefits/burdens of medical treatment options; making medical treatment decisions. . (RUMA COOPER) Subjective/Interval History Patient seen and examined in ICU. Discussed with nurse En[place] and Dr. Hoffman. Daughter, Loree and sister, Gabi bedside. Patient remains sedated on mechanical ventilation, FI 02 70%, PEEP 12. Patient is required increasing oxygen needs on mechanical ventilation over the past few days. Tmax 101. Vital signs otherwise stable. WBC 13.4, increased from 10.7. Alkaline phosphatase increased from 89 to 130. Albumin remains low at 1.8, total protein 6.3. Patient had PEG tube placed last week, tolerating PEG tube feedings, during my visit rate 20 mL per hour as tube feedings were held overnight for possible tracheostomy. Patient too unstable to undergo tracheostomy at this time. 09/02/16 sputum culture positive pseudomonas aeruginosa, blood cultures no growth in 2 days. Chest x-ray slight improvement left upper lobe airspace disease, patchy density seen throughout the right lung. In speaking with Dr. Hoffman, he feels patient has pneumonia complicated by worsening COPD, while she will likely have a long road to recovery it is possible she will survive given her young age. She also remains high risk for further setbacks her decline given prolonged ICU stay and prolonged mechanical ventilation. . Family/friend interactions Family meeting arranged 09/04/16 4 PM. Met with daughter (Loree), sister (Rochelle ) and significant other of 38 years (Wili). Palliative care meeting with family at 4 PM. Lengthy conversation reviewing hospital course, medical update and prognosis. Explained patient unable to have trach at this time, though medical team will need a decision, they will consider tonight and let me know. They desires FULL CODE. Many questions about lack of insurance, they are working to gather necessary information to apply for Medicaid. . (RUMA COOPER) Advance Directives Living Will: Never completed Health Care Surrogate: Never completed Durable Power of Cytologist: Never completed (RUMA COOPER) Advance Directive Specifics Health Care Surrogate(s): No known written advance directives. Patient is currently incapacitated to make her own health care decisions, uncertain if she will regain capacity. According to [place] statutes, health care proxy decision-making falls to the patient's daughter, Loree. Patient is not legally . . Significant change in goals: FULL CODE. Family is going to talk tonight about trach and will let me know. . (RUMA COOPER) Objective Vital Signs Date Time Temp Pulse Resp B/P Pulse Ox O2 Delivery O2 Flow Rate FiO2 09/04/16 14:00 101 09/04/16 13:17 94 70 09/04/16 12:00 98 09/04/16 12:00 70 09/04/16 12:00 100.1 98 26 113/56 94 09/04/16 10:00 85 09/04/16 09:16 94 70 09/04/16 08:00 99.8 94 28 109/56 96 09/04/16 08:00 87 09/04/16 08:00 70 09/04/16 06:33 16 09/04/16 06:00 93 09/04/16 04:00 70 09/04/16 04:00 99.2 95 16 110/53 92 09/04/16 04:00 95 09/04/16 03:55 92 70 09/04/16 02:00 101 09/04/16 00:50 91 70 09/04/16 00:00 114 09/04/16 00:00 70 09/04/16 00:00 100.0 114 16 115/54 90 09/03/16 22:00 125 09/03/16 20:04 93 70 09/03/16 20:00 75 09/03/16 20:00 114 09/03/16 20:00 101.0 114 16 132/68 93 09/03/16 18:00 120 09/03/16 16:21 92 70 09/03/16 16:00 75 09/03/16 16:00 98.7 90 27 103/54 93 09/03/16 16:00 90 Intake & Output 09/04/16 09/04/16 07:00 19:00 Intake Total 1166 ml 333 ml Output Total 1200 ml 350 ml Balance -34 ml -17 ml Intake Oral 0 ml IV Total 882 ml 278 ml Tube Feeding 284 ml 55 ml Output Urine Total 850 ml 350 ml Stool Total 350 ml Physical Exam CONSTITUTIONAL/GENERAL: This is an adequately nourished patient, sedated on mechanical ventilation. TUBES/LINES/DRAINS: ETT, left subclavian centerline, PIV times 2 left, PEG tube , Miller,podus boots, specialty bed. SKIN: No jaundice, rashes, or lesions. Ecchymoses on upper extremities. No wounds seen anteriorly. Skin temperature appropriate. Not diaphoretic. ENT: Unable to assess hearing. earing grossly normal. Nose without bleeding or purulent drainage. Throat difficult to visualize secondary to ETT, poor dentition. CARDIOVASCULAR: Regular rate and rhythm without murmurs, gallops, or rubs. RESPIRATORY/CHEST: Symmetric, tachypneic on mechanical vent. Few basilar crackles noted. GASTROINTESTINAL: Abdomen soft, non-tender, nondistended. No guarding. Bowel sounds present. GENITOURINARY: Without palpable bladder distension. Miller catheter in place. MUSCULOSKELETAL: Extremities without clubbing, cyanosis, or edema. No mottling or clubbing. NEUROLOGICAL: sedated. PSYCHIATRIC: sedated. . (RUMA COOPER-Des) Diagnostic Tests Laboratory Laboratory Tests Test 09/02/16 09/02/16 09/03/16 09/04/16 04:05 16:55 06:29 03:00 White Blood Count 10.7 TH/MM3 13.4 TH/MM3 (4.0-11.0) (4.0-11.0) Red Blood Count 3.92 MIL/MM3 3.95 MIL/MM3 (4.00-5.30) (4.00-5.30) Hemoglobin 10.8 GM/DL 11.1 GM/DL (11.6-15.3) (11.6-15.3) Hematocrit 34.0 % 34.0 % (35.0-46.0) (35.0-46.0) Mean Corpuscular Volume 86.8 FL 86.1 FL (80.0-100.0) (80.0-100.0) Mean Corpuscular Hemoglobin 27.6 PG 28.1 PG (27.0-34.0) (27.0-34.0) Mean Corpuscular Hemoglobin 31.8 % 32.6 % Concent (32.0-36.0) (32.0-36.0) Red Cell Distribution Width 16.6 % 17.0 % (11.6-17.2) (11.6-17.2) Platelet Count 239 TH/MM3 229 TH/MM3 (150-450) (150-450) Mean Platelet Volume 9.3 FL 9.1 FL (7.0-11.0) (7.0-11.0) Neutrophils (%) (Auto) 80.7 % 92.8 % (16.0-70.0) (16.0-70.0) Lymphocytes (%) (Auto) 10.1 % 3.7 % (9.0-44.0) (9.0-44.0) Monocytes (%) (Auto) 6.6 % (0.0-8.0) 2.6 % (0.0-8.0) Eosinophils (%) (Auto) 1.7 % (0.0-4.0) 0.8 % (0.0-4.0) Basophils (%) (Auto) 0.9 % (0.0-2.0) 0.1 % (0.0-2.0) Neutrophils # (Auto) 8.6 TH/MM3 12.4 TH/MM3 (1.8-7.7) (1.8-7.7) Lymphocytes # (Auto) 1.1 TH/MM3 0.5 TH/MM3 (1.0-4.8) (1.0-4.8) Monocytes # (Auto) 0.7 TH/MM3 0.4 TH/MM3 (0-0.9) (0-0.9) Eosinophils # (Auto) 0.2 TH/MM3 0.1 TH/MM3 (0-0.4) (0-0.4) Basophils # (Auto) 0.1 TH/MM3 0.0 TH/MM3 (0-0.2) (0-0.2) CBC Comment AUTO DIFF AUTO DIFF Differential Total Cells 100 100 Counted Neutrophils % (Manual) 73 % (16-70) 61 % (16-70) Band Neutrophils % 13 % (0-6) 32 % (0-6) Lymphocytes % 9 % (9-44) 3 % (9-44) Monocytes % 4 % (0-8) 3 % (0-8) Eosinophils % 1 % (0-4) Neutrophils # (Manual) 9.2 TH/MM3 12.6 TH/MM3 (1.8-7.7) (1.8-7.7) Differential Comment FINAL DIFF FINAL DIFF MANUAL MANUAL Platelet Estimate NORMAL NORMAL (NORMAL) (NORMAL) Platelet Morphology Comment NORMAL NORMAL (NORMAL) (NORMAL) Sodium Level 138 MEQ/L 138 MEQ/L (136-145) (136-145) Potassium Level 3.2 MEQ/L 3.9 MEQ/L 3.5 MEQ/L (3.5-5.1) (3.5-5.1) (3.5-5.1) Chloride Level 104 MEQ/L 103 MEQ/L (98-107) (98-107) Carbon Dioxide Level 25.9 MEQ/L 25.9 MEQ/L (21.0-32.0) (21.0-32.0) Anion Gap 8 MEQ/L (5-15) 9 MEQ/L (5-15) Blood Urea Nitrogen 12 MG/DL (7-18) 12 MG/DL (7-18) Creatinine 0.32 MG/DL 0.37 MG/DL (0.50-1.00) (0.50-1.00) Estimat Glomerular Filtration 214 ML/MIN 181 ML/MIN Rate (>89) (>89) Random Glucose 88 MG/DL 152 MG/DL (74-106) (74-106) Calcium Level 8.7 MG/DL 8.6 MG/DL (8.5-10.1) (8.5-10.1) Magnesium Level 2.2 MG/DL 2.1 MG/DL (1.5-2.5) (1.5-2.5) Total Bilirubin 0.5 MG/DL 0.6 MG/DL (0.2-1.0) (0.2-1.0) Aspartate Amino Transf 19 U/L (15-37) 31 U/L (15-37) (AST/SGOT) Alanine Aminotransferase 42 U/L (10-53) 43 U/L (10-53) (ALT/SGPT) Alkaline Phosphatase 89 U/L (45-117) 130 U/L (45-117) Total Protein 6.6 GM/DL 6.3 GM/DL (6.4-8.2) (6.4-8.2) Albumin 2.0 GM/DL 1.8 GM/DL (3.4-5.0) (3.4-5.0) Blood Gas Puncture Site RT RADIAL Blood Gas Patient Temperature 98.6 Blood Gas HCO3 21 mmol/L (22-26) Blood Gas Base Excess -3.3 mmol/L (-2-2) Blood Gas Oxygen Saturation 90 % (90-100) Arterial Blood pH 7.35 (7.380-7.420) Arterial Blood Partial 40 mmHg (38-42) Pressure CO2 Arterial Blood Partial 68 mmHg Pressure O2 (61-120) Arterial Blood Oxygen Content 13.9 Vol % (12.0-20.0) Arterial Blood 1.7 % (0-4) Carboxyhemoglobin Arterial Blood Methemoglobin 1.1 % (0-2) Blood Gas Hemoglobin 11.0 G/DL (12.0-16.0) Oxygen Delivery Device VENTILATOR Blood Gas Ventilator Setting PRVC/AC Blood Gas Inspired Oxygen 70 % Metamyelocytes 1 % (0-1) (RUMA COOPER) Result Diagram: 09/04/16 0300 09/04/16 0300 Microbiology Microbiology Date/Time Procedure Status Source Growth 09/02/16 09:12 Urine Culture - Final Complete Urine Catheterized Urine NO GROWTH IN 48 HOURS. 09/02/16 09:38 Gram Stain - Final Complete Sputum Endotracheal 09/02/16 09:38 Sputum Culture - Final Complete Pseudomonas Aeruginosa 09/02/16 11:00 Aerobic Blood Culture - Preliminary Resulted Blood Peripheral NO GROWTH IN 2 DAYS 09/02/16 11:00 Anaerobic Blood Culture - Preliminary Resulted Blood Peripheral NO GROWTH IN 2 DAYS 09/02/16 11:10 Aerobic Blood Culture - Preliminary Resulted Blood Peripheral NO GROWTH IN 2 DAYS 09/02/16 11:10 Anaerobic Blood Culture - Preliminary Resulted Blood Peripheral NO GROWTH IN 2 DAYS . Imaging Last Impressions Chest X-Ray 09/04/16 0600 Signed Impressions: Service Date/Time: Sunday, September 04, 2016 03:31 - CONCLUSION: Slight improvement of left upper lobe air space disease. Patchy densities are seen throughout the right lung. Tyrel White MD Gall Bladder Ultrasound 08/29/16 0000 Signed Impressions: Service Date/Time: Monday, August 29, 2016 15:21 - CONCLUSION: 1. Hepatomegaly with heterogeneous echotexture throughout the liver. 2. There is a large echogenic area near the neck of the gallbladder suggestive of a stone, but despite its large size, demonstrates no acoustic shadowing in any of the views. Taco Davidson MD Liver Ultrasound 08/15/16 0000 Signed Impressions: Service Date/Time: Monday, August 15, 2016 15:45 - CONCLUSION: Fatty liver and cholelithiasis. Common bile duct is dilated and common bile duct stone is not excluded. Danyel Escalante MD CT Angiography 08/15/16 0000 Signed Impressions: Service Date/Time: Monday, August 15, 2016 02:33 - CONCLUSION: 1. No evidence for pulmonary embolism. 2. Multifocal consolidation greatest in the right lower lobe and associated adenopathy. Terry Estrada MD . Procedures * 09/01/16 PEG tube placed * 08/28/16 left subclavian central line placed * 08/18/16 right arterial line placed * 08/18/16 right IJ central line placed * 08/14/16 intubation . (RUMA COOPER PUNCH BOX TENDER-C) Assessment and Plan Disease Oriented Problem List: (1) ARDS (adult respiratory distress syndrome) (2) acute hypercapneic and hypoxemic respiratory failure (3) HCAP (healthcare-associated pneumonia) (4) CHF (congestive heart failure) (5) Hypokalemia (6) Morbid obesity (7) Hypothyroidism (8) Dyslipidemia (9) Metabolic encephalopathy (10) Sepsis (11) Elevated LFTs Symptom Scale: (1) Pain 0-10 Scale: Unable to quantify Comment: Sedated with fentanyl 150 and propofol 25 (2) Dyspnea 0-10 Scale: Unable to quantify Comment: Remains on mechanical ventilation, sedated with fentanyl and propofol Pertinent Non-Medical Issues Psychosocial: single, significant other, not legally . As one daughter. Spiritual: [employer]. Legal: Patient is currently incapacitated to participate in healthcare decision- making. Single, does have a significant other not legally . Has one daughter. According to 4 to statutes, health care proxy decision-making falls to jarett Ralph. Ethical issues impacting care: no known concerns at this time. . Important Contacts * Loree Marinelli, daughter (HCP): [phone] * Rony Marinelli, significant other: [phone] . Prognosis In speaking with Dr. Hoffman, he feels patient has pneumonia complicated by worsening COPD, while she will likely have a long road to recovery it is possible she will survive given her young age. She also remains high risk for further setbacks her decline given prolonged ICU stay and prolonged mechanical ventilation. . Code Status: Full Code Plan * Patient is currently incapacitated to participate in healthcare decision- making. Single, does have a significant other not legally . Has one daughter. According to 4 to statutes, health care proxy decision-making falls to daughter Loree. * FULL CODE. * Palliative care meeting with family 09/04/16 at 4 PM. Lengthy conversation reviewing hospital course, medical update and prognosis. Explained patient unable to have trach at this time, though medical team will need a decision, they will consider tonight and let me know. They desires FULL CODE. Many questions about lack of insurance, they are working to gather necessary information to apply for Medicaid. * SYMPTOMS: dyspnea: remains on mechanical ventilation, sedated with Fentanyl and Diprivan. Pain : secondary to infection, mech vent, recent PEG tube placement and bedbound status. * Palliative care number provided. * Palliative care will continue to follow to assist with symptom management and further clarification of treatment goals as needed. . (RUMA COOPER) Time Spent Total Floor Time (mins): 100 Face to Face Time (mins): 75 >50% Counseling/Coord of Care: Yes (RUMA COOPER) Attestation To help prompt me to consider important information that might be impacting today's encounter and assessment, information from prior notes written by myself or my colleagues may have been "brought forward" into today's note. My signature on this note, however, is an attestation that I personally performed the exam, history, and/or decision-making noted today, and, unless otherwise indicated, the interactions with patient, family, and staff as well as the review of records all occurred today. I also attest that the listed assessment and stated plan reflect my best clinical judgment today based on the combination of historical information, prior notes, and today's exam/ interactions. When time spent is documented, it refers only to time spent today by the signer, or if indicated, combined time spent today by collaborating physician/nurse practitioner. (RUMA COOPER) Collaborating MD Comments . Chart reviewed. Cased discussed with palliative care PUNCH BOX TENDER. Above PUNCH BOX TENDER note reviewed and I concur. . (Benny Sosa MD) RUMA COOPER Sep 04, 2016 15:48 Benny Sosa MD October 23, 2016 14:50
[2016-09-04] MEDS: PRAVASTATIN SOD 20 MG TAB PO SCH (19:31)
[2016-09-05] VITALS (18 sets, daily range): BP systolic 93–116; BP diastolic 53–58; PULSE 90–108; RESP 20–59; TEMP 98.7–102; O2SAT 85–97
[2016-09-05] MEDS: oxyCODONE HCL ORAL CONC 20 MG/ML SYRINGE PO SCH ×6 (00:28→19:49)
[2016-09-05] MEDS: HEPARIN SODIUM - SQ 10,000 UNITS/ML VIAL SQ SCH ×3 (00:28→15:48)
[2016-09-05] MEDS: CEFEPIME INJ 2,000 MG in SODIUM CHLORIDE 0.9% INJ 100 ML IV SCH (02:13)
[2016-09-05] MEDS: RESP: ALBUTEROL 2.5 MG/IPRATROPIUM 0.5 MG NEB (SCH) INH ×6 (03:10→23:26)
[2016-09-05] MEDS: CHLORHEXIDINE GLUCONATE 2 % 1 PACK (2 CLOTHS) TOP SCH (04:00)
[2016-09-05] MEDS: INSULIN NovoLIN REGULAR SUPPLEMENTAL SCALE SQ SCH ×4 (04:00→22:00)
[2016-09-05] MEDS: QUEtiapine FUMARATE 25 MG TAB PO SCH ×3 (04:20→21:09)
[2016-09-05] MEDS: PROPOFOL 1000 MG/100 ML INJ 100 ML IV SCH ×4 (04:48→19:49)
[2016-09-05 05:04] LABS: HEMATOCRIT 32.3 % (35.0-46.0); MEAN CELL VOLUME 86.7 FL (80.0-100.0); MEAN CORPUSCULAR HGB CONC 32.3 % (32.0-36.0); PLATELET COUNT 238 TH/MM3 (150-450); RED BLOOD COUNT 3.73 MIL/MM3 (4.00-5.30); RED CELL DISTRIBUTION WIDTH 17.6 % (11.6-17.2); REVIEW FLAG FINAL; WHITE BLOOD COUNT 13.1 TH/MM3 (4.0-11.0)
[2016-09-05 05:20] LABS: BICARBONATE 24.8 MEQ/L (21.0-32.0); POTASSIUM 3.6 MEQ/L (3.5-5.1)
[2016-09-05] MEDS: LEVOTHYROXINE SODIUM 200 MCG TAB PO SCH (05:52)
[2016-09-05] MEDS: ARTIFICIAL TEARS OPTH SOLN 15 ML BTL EACH EYE SCH ×3 (07:48→18:22)
[2016-09-05] MEDS: BENEPROTEIN POWDER 1 PACK G-TUBE SCH ×3 (07:48→18:00)
[2016-09-05] MEDS: LANSOPRAZOLE SOLUTAB 30 MG TAB NG SCH (07:49)
[2016-09-05] MEDS: SODIUM CHLORIDE 0.9% FLUSH 10 ML FLUSH IV FLUSH SCH ×2 (07:49→19:53)
[2016-09-05] MEDS: ACETAMINOPHEN 325 MG TAB PO PRN ×2 (08:05→16:00)
[2016-09-05] MEDS ORDERED: LEVOFLOXACIN 750 MG PREMIX INJ 150 ML IV SCH (09:00)
--- NOTE | 2016-09-05 10:13 | HHI.CCPN ---
Subjective Remarks/Hospital Course 56-year-old morbidly obese female brought in the emergency department in respiratory distress. She was intubated by ER attending. She has been sick for about a week with symptoms consistent with UTI. She's had fevers and chills. She's been short of breath. She's had fatigue. She has had a cough and chest pain with coughing. The family reports that she's been delirious for the last 3 days. 08/15 Patient is sedated with Diprivan, Versed, Fentanyl and intubated. CTA chest showed no PE multifocal consolidation greatest in RLL. Tmax 100.6 08/16 Patient is sedated with Diprivan and Fentanyl. Afebrile. CXR this morning showed increase consolidation. 08/17 Patient remains sedated and intubated. T:100.4 On PRVC/AC RR 18, Tv 500, IT :1.0 PEEP:10, FIO2 75% 08/18 Remains sedated and intubated. Afebrile. CXR this morning unchanged bibasilar infiltrates and effusions. 08/19 Patient was placed on rotoprone bed last night for proning sedated with Diprivan, Versed and Fentnayl in addition she is on Nimbex. On PRVC/AC RR 20, TV 400, IT:1.1, PEEP:14 and FIO2 80%. Afebrile. 08/20 Patient remains sedated and intubated. Remains on PRVC/AC mode with improvements in her oxygenation on FIO2 50% from 80% yesterday and PEEP:12. 08/21 Patient remains sedated and intubated. On PRVC/AC mode with RR 20, TV 400, IT:1.1, PEEP: 12 and FIO2 50%. Afebrile. 08/22 No acute events overnight. Remains sedated, intubated and on Nimbex.. T: 99.8. On PRVC mode with PEP: 12, FIO2 50%. CXR from yesterday showed better aeration, RLL infiltrate unchanged. 08/23 Chest x-ray worsening. Methylprednisolone taper to twice a day by pulmonary. The patient's FiO2 was found to be 100% this a.m., will continue to wean. 08/24: 1 desat episode yesterday when supine. still remains prone now. no vasopressors. sedated and paralyzed. 08/25: flolan added yesterday. fio2 down to 60%. remained supine all night. still on neuromuscular blockade. net -500cc/24h. 08/26: good diuresis. remained supine. fio2 70%. weaning flolan. remains with significant respiratory support and high peep despite 6L diuresis overnight. Cr still stable. 08/27: continues with good diuresis. net negative 3L/24h. fio2 down to 55%. flolan off. still high peep. not ready for SBT. more agitated today. Cr remains stable despite aggressive diuresis. 08/28: diuresis continues. -3.3L/24h. spiked fever overnight with a jump in wbc to 16 this AM. fio2 60%, but her pulmonary improvements have plateaued at this point. still on peep 12. 08/29: net -1.7L/24h. Cr starting to rise. still spiking fevers despite vanc/ cefepime added yesterday. wbc continues to rise. clinically appears infected, although unclear source. peep 10, fio2 60%. will likely need trach. 08/30: net +800cc, but Cr downtrending. appears clinically euvolemic. fever curve downtrending. wbc downtrending. on 40% fio2, peep 8 today. still following commands. 08/31: failed SBT after only 45 minutes yesterday. intubated for > 2 weeks at this point. will attempt to pursue trach/peg today. will continue with pulmonary strengthening. daily SBTs. 09/01 CXR showing increasing bibasilar infiltrate. Failed C Pap trial in 5 minutes due to severe tachypnea. PEG tube today. Family has not decided on trach yet 09/02: Patient febrile to 101.1, CXR increased infiltrate left upper lung and right lower lobe. Pancultured. Cefepime added today and one dose of vancomycin. Continues to fail C Pap trial due to tachypnea and respiratory distress 09/03: Remains hypoxemic on 75% oxygen with new pneumonia. Sputum culture 09/02/16 with GNR. Family agreeable for tracheostomy but patient is not stable at this point for trach 09/04: still on 70% fio2. still hypoxic. pneumonia persists. needs trach, but too unstable at this point. 09/05: remains on 75% fio2. pseudomonas sensitivities came back resistant to carbapenems, intermediate to levaquin. still spiking fevers. not clinically improving. wbc remains elevated. Objective Vital Signs Date Time Temp Pulse Resp B/P Pulse Ox O2 Delivery O2 Flow Rate FiO2 09/05/16 09:01 94 75 09/05/16 08:00 108 09/05/16 08:00 102.0 59 116/58 Intake and Output 09/04/16 09/04/16 09/05/16 08:00 16:00 00:00 Intake Total 438 ml 333 ml 865 ml Output Total 600 ml 350 ml 500 ml Balance -162 ml -17 ml 365 ml Result Diagram: 09/05/16 0416 09/05/16 0416 Imaging Last Impressions Chest X-Ray 08/21/16 0000 Signed Impressions: Service Date/Time: Sunday, August 21, 2016 07:23 - CONCLUSION: Better aeration from the prior study. Right lower lobe infiltrate is unchanged. Taco Haas Jr., MD Liver Ultrasound 08/15/16 0000 Signed Impressions: Service Date/Time: Monday, August 15, 2016 15:45 - CONCLUSION: Fatty liver and cholelithiasis. Common bile duct is dilated and common bile duct stone is not excluded. Danyel Escalante MD CT Angiography 08/15/16 0000 Signed Impressions: Service Date/Time: Monday, August 15, 2016 02:33 - CONCLUSION: 1. No evidence for pulmonary embolism. 2. Multifocal consolidation greatest in the right lower lobe and associated adenopathy. Terry Estrada MD Objective Remarks GENERAL: Patient is intubated and sedated, critically ill SKIN: Warm and dry. HEAD: Normocephalic. EYES: No scleral icterus. No injection or drainage. NECK: trachea midline. morbid obesity prevents accurate assessment of JVD. CARDIOVASCULAR: Regular rate and rhythm without murmurs, gallops, or rubs. RESPIRATORY: Breath sounds equal bilaterally. Tachypneic on the ventilator. Few basilar crackles GASTROINTESTINAL: Abdomen obese, soft, non-tender, nondistended. MUSCULOSKELETAL: No cyanosis, or edema. Neuro: RASS -2. follows commands very weakly on sedation hold. Currently sedated with propofol and fentanyl A/P Problem List: (1) CHF (congestive heart failure) ICD Code: I50.9 Status: Acute (2) Respiratory failure ICD Code: J96.90 Status: Acute (3) Pneumonia ICD Code: J18.9 Status: Acute (4) ARDS (adult respiratory distress syndrome) ICD Code: J80 Status: Acute Assessment and Plan ASSESSMENT: Acute hypercapnic and hypoxemic respiratory failure ARDS Pneumonia community-acquired, now with HCAP with carbapenem-resistant pseudomonas Sepsis Agitated delirium/metabolic encephalopathy Elevated LFT Hypokalemia Hypothyroidism Dyslipidemia Mild elevated trop likely 2nd resp failure Morbid obesity PLAN: Neuro: Fentanyl, propofol for goal RASS -2. Hold Daily sedation vacation due to hypoxia. continue Seroquel 50mg po q8h for delirium and oxycodone 10mg po q4h femi for pain. Pulm: On PRVC/AC RR 22, TV 550, PEEP 12, IT: 1.1 and FIO2 0.75. Decrease FIO2 as tiki. for goal spo2 > 88% Bronchodilators, prednisone taper. ICU vent bundle. Pulm is following- Dr. Kiran Culver surg consulted for trach. Palliative care following in clarifying goals of care with the family. Vent day 22, family agreeable for trach -currently not stable resp htompson for trach. Gen surgery on board CV: Monitor HR and BP keep MAP>65mmg Echo showed EG 65-70% : Monitor renal function, I/O's. electrolytes replacement per protocol. Clinically euvolemic GI: Monitor LFT's ( trending down), on Protonix 40mg daily for GI prophylaxis US liver: Fatty liver and cholelithiasis. Repeat US if fever persists On TF Glucerna 1.5 @ 45ml/hr, minimal residual, restart after PEG. s/p PEG placement 09/01/16 ID: d/c blood and sputum cx 08/15- NG strep pneumonia and Legionella urinary Ag negative Blood cultures 08/28: NGTD Sputum culture 08/28: Pseudomonas C Diff negative 08/28. Lines changed 08/28. Sputum 09/02 PSAE, resistant to carbapenem, intermediate to levaquin. - will d/c cefepime/levaquin. start zosyn 4.5gm iv q6h and tobramycin 7 mg/kg/ day. I think she has clearly failed monotherapy given the development of resistance without clinical improvement. we will plan on full course of double coverage. Heme: Monitor CBC Endo: on SSI ( medium scale) for glycemic control On Synthroid 200mcg daily. TSH 1.37 GI prophylaxis- d/c protonix, start prevacid per tube. DVT prophylaxis-Heparin SQ, SCDs Lines: - Left SC TLC 08/28 - Miller - PEG 09/01/16 Not stable for trach at this time. Anticipate transfer to LTAC after Trach CCT 48 minutes, exclusive of separately billable procedures. Problem Qualifiers (1) CHF (congestive heart failure): Qualified Code: I50.9 - Acute congestive heart failure, unspecified congestive heart failure type (2) Respiratory failure: Qualified Code: J96.02 - Acute respiratory failure with hypercapnia (3) Pneumonia: Qualified Code: J18.9 - Pneumonia of both lungs due to infectious organism, unspecified part of lung Tutu Hoffman MD Sep 05, 2016 10:12
[2016-09-05] MEDS ORDERED: [UNRECOGNIZED DRUG - REMARK] OTHER SCH (10:15)
[2016-09-05] MEDS ORDERED: Tobramycin Consult Pharmacy 1 EA OTHER SCH (10:15)
[2016-09-05] MEDS: TOBRAMYCIN INJ 560 MG in SODIUM CHLORIDE 0.9% INJ 100 ML IV SCH (11:07)
[2016-09-05] MEDS: PIPERACIL-TAZO 4.5 GM PREMIX 100 ML IV SCH ×3 (11:07→21:10)
[2016-09-05] MEDS: fentaNYL DRIP 250 ML IV SCH ×2 (15:47→19:52)
[2016-09-05] MEDS: PRAVASTATIN SOD 20 MG TAB PO SCH (19:52)
[2016-09-06] VITALS (19 sets, daily range): BP systolic 95–109; BP diastolic 52–56; PULSE 90–101; RESP 20–25; TEMP 99–102; O2SAT 93–99
[2016-09-06] MEDS: PROPOFOL 1000 MG/100 ML INJ 100 ML IV SCH ×5 (00:03→20:55)
[2016-09-06] MEDS: HEPARIN SODIUM - SQ 10,000 UNITS/ML VIAL SQ SCH ×3 (00:09→16:32)
[2016-09-06] MEDS: oxyCODONE HCL ORAL CONC 20 MG/ML SYRINGE PO SCH ×6 (00:10→20:14)
[2016-09-06] MEDS: RESP: ALBUTEROL 2.5 MG/IPRATROPIUM 0.5 MG NEB (SCH) INH ×6 (03:51→23:22)
[2016-09-06] MEDS: INSULIN NovoLIN REGULAR SUPPLEMENTAL SCALE SQ SCH ×4 (04:00→22:00)
[2016-09-06] MEDS: CHLORHEXIDINE GLUCONATE 2 % 1 PACK (2 CLOTHS) TOP SCH (04:00)
[2016-09-06] MEDS: PIPERACIL-TAZO 4.5 GM PREMIX 100 ML IV SCH ×4 (04:01→22:15)
[2016-09-06 04:23] LABS: HEMATOCRIT 31.9 % (35.0-46.0); MEAN CELL VOLUME 86.2 FL (80.0-100.0); MEAN CORPUSCULAR HEMOGLOBIN 27.2 PG (27.0-34.0); MEAN CORPUSCULAR HGB CONC 31.6 % (32.0-36.0); PLATELET COUNT 244 TH/MM3 (150-450); RED BLOOD COUNT 3.71 MIL/MM3 (4.00-5.30); RED CELL DISTRIBUTION WIDTH 17.2 % (11.6-17.2); REVIEW FLAG FINAL; WHITE BLOOD COUNT 11.5 TH/MM3 (4.0-11.0)
[2016-09-06 04:53] LABS: BICARBONATE 25.4 MEQ/L (21.0-32.0); POTASSIUM 3.8 MEQ/L (3.5-5.1)
[2016-09-06] MEDS: LEVOTHYROXINE SODIUM 200 MCG TAB PO SCH (05:55)
[2016-09-06] MEDS: QUEtiapine FUMARATE 25 MG TAB PO SCH ×3 (05:55→22:15)
[2016-09-06] MEDS: BENEPROTEIN POWDER 1 PACK G-TUBE SCH ×3 (09:00→18:00)
[2016-09-06] MEDS: ACETAMINOPHEN 325 MG TAB PO PRN ×2 (10:27→16:48)
[2016-09-06] MEDS: LANSOPRAZOLE SOLUTAB 30 MG TAB NG SCH (10:27)
[2016-09-06] MEDS: ARTIFICIAL TEARS OPTH SOLN 15 ML BTL EACH EYE SCH ×3 (10:28→16:32)
[2016-09-06] MEDS: SODIUM CHLORIDE 0.9% FLUSH 10 ML FLUSH IV FLUSH SCH ×2 (10:29→20:15)
--- NOTE | 2016-09-06 11:13 | HHI.CCPN ---
Subjective Remarks/Hospital Course 56-year-old morbidly obese female brought in the emergency department in respiratory distress. She was intubated by ER attending. She has been sick for about a week with symptoms consistent with UTI. She's had fevers and chills. She's been short of breath. She's had fatigue. She has had a cough and chest pain with coughing. The family reports that she's been delirious for the last 3 days. 08/15 Patient is sedated with Diprivan, Versed, Fentanyl and intubated. CTA chest showed no PE multifocal consolidation greatest in RLL. Tmax 100.6 08/16 Patient is sedated with Diprivan and Fentanyl. Afebrile. CXR this morning showed increase consolidation. 08/17 Patient remains sedated and intubated. T:100.4 On PRVC/AC RR 18, Tv 500, IT :1.0 PEEP:10, FIO2 75% 08/18 Remains sedated and intubated. Afebrile. CXR this morning unchanged bibasilar infiltrates and effusions. 08/19 Patient was placed on rotoprone bed last night for proning sedated with Diprivan, Versed and Fentnayl in addition she is on Nimbex. On PRVC/AC RR 20, TV 400, IT:1.1, PEEP:14 and FIO2 80%. Afebrile. 08/20 Patient remains sedated and intubated. Remains on PRVC/AC mode with improvements in her oxygenation on FIO2 50% from 80% yesterday and PEEP:12. 08/21 Patient remains sedated and intubated. On PRVC/AC mode with RR 20, TV 400, IT:1.1, PEEP: 12 and FIO2 50%. Afebrile. 08/22 No acute events overnight. Remains sedated, intubated and on Nimbex.. T: 99.8. On PRVC mode with PEP: 12, FIO2 50%. CXR from yesterday showed better aeration, RLL infiltrate unchanged. 08/23 Chest x-ray worsening. Methylprednisolone taper to twice a day by pulmonary. The patient's FiO2 was found to be 100% this a.m., will continue to wean. 08/24: 1 desat episode yesterday when supine. still remains prone now. no vasopressors. sedated and paralyzed. 08/25: flolan added yesterday. fio2 down to 60%. remained supine all night. still on neuromuscular blockade. net -500cc/24h. 08/26: good diuresis. remained supine. fio2 70%. weaning flolan. remains with significant respiratory support and high peep despite 6L diuresis overnight. Cr still stable. 08/27: continues with good diuresis. net negative 3L/24h. fio2 down to 55%. flolan off. still high peep. not ready for SBT. more agitated today. Cr remains stable despite aggressive diuresis. 08/28: diuresis continues. -3.3L/24h. spiked fever overnight with a jump in wbc to 16 this AM. fio2 60%, but her pulmonary improvements have plateaued at this point. still on peep 12. 08/29: net -1.7L/24h. Cr starting to rise. still spiking fevers despite vanc/ cefepime added yesterday. wbc continues to rise. clinically appears infected, although unclear source. peep 10, fio2 60%. will likely need trach. 08/30: net +800cc, but Cr downtrending. appears clinically euvolemic. fever curve downtrending. wbc downtrending. on 40% fio2, peep 8 today. still following commands. 08/31: failed SBT after only 45 minutes yesterday. intubated for > 2 weeks at this point. will attempt to pursue trach/peg today. will continue with pulmonary strengthening. daily SBTs. 09/01 CXR showing increasing bibasilar infiltrate. Failed C Pap trial in 5 minutes due to severe tachypnea. PEG tube today. Family has not decided on trach yet 09/02: Patient febrile to 101.1, CXR increased infiltrate left upper lung and right lower lobe. Pancultured. Cefepime added today and one dose of vancomycin. Continues to fail C Pap trial due to tachypnea and respiratory distress 09/03: Remains hypoxemic on 75% oxygen with new pneumonia. Sputum culture 09/02/16 with GNR. Family agreeable for tracheostomy but patient is not stable at this point for trach 09/04: still on 70% fio2. still hypoxic. pneumonia persists. needs trach, but too unstable at this point. 09/05: remains on 75% fio2. pseudomonas sensitivities came back resistant to carbapenems, intermediate to levaquin. still spiking fevers. not clinically improving. wbc remains elevated. 09/06: Remains on 12 of PEEP and FiO2 75%. Zosyn and tobramycin started yesterday. WBC count trending down today 11.5 from 13.1. Remains heavily sedated for ventilator synchrony. MAXIMUM TEMPERATURE 100.3 Objective Vital Signs Date Time Temp Pulse Resp B/P Pulse Ox O2 Delivery O2 Flow Rate FiO2 09/06/16 08:03 94 75 09/06/16 06:00 92 09/06/16 04:00 100.1 22 100/56 Intake and Output 09/05/16 09/05/16 09/06/16 08:00 16:00 00:00 Intake Total 705 ml 1218 ml 950 ml Output Total 400 ml 550 ml 500 ml Balance 305 ml 668 ml 450 ml Result Diagram: 09/06/16 0330 09/06/16 0330 Imaging Last Impressions Chest X-Ray 08/21/16 0000 Signed Impressions: Service Date/Time: Sunday, August 21, 2016 07:23 - CONCLUSION: Better aeration from the prior study. Right lower lobe infiltrate is unchanged. Taco Haas Jr., MD Liver Ultrasound 08/15/16 0000 Signed Impressions: Service Date/Time: Monday, August 15, 2016 15:45 - CONCLUSION: Fatty liver and cholelithiasis. Common bile duct is dilated and common bile duct stone is not excluded. Danyel Escalante MD CT Angiography 08/15/16 0000 Signed Impressions: Service Date/Time: Monday, August 15, 2016 02:33 - CONCLUSION: 1. No evidence for pulmonary embolism. 2. Multifocal consolidation greatest in the right lower lobe and associated adenopathy. Trery Estrada MD Objective Remarks GENERAL: Patient is intubated and sedated, critically ill SKIN: Warm and dry. HEAD: Normocephalic. EYES: No scleral icterus. No injection or drainage. NECK: trachea midline. morbid obesity prevents accurate assessment of JVD. CARDIOVASCULAR: Regular rate and rhythm without murmurs, gallops, or rubs. RESPIRATORY: Breath sounds equal bilaterally. Tachypneic on the ventilator. Few basilar crackles. On 12 PEEP, 75% FiO2 GASTROINTESTINAL: Abdomen obese, soft, non-tender, nondistended. MUSCULOSKELETAL: No cyanosis, or edema. Neuro: RASS -2. follows commands very weakly on sedation hold. Currently sedated with propofol and fentanyl A/P Problem List: (1) CHF (congestive heart failure) ICD Code: I50.9 Status: Acute (2) Respiratory failure ICD Code: J96.90 Status: Acute (3) Pneumonia ICD Code: J18.9 Status: Acute (4) ARDS (adult respiratory distress syndrome) ICD Code: J80 Status: Acute Assessment and Plan ASSESSMENT: Acute hypercapnic and hypoxemic respiratory failure ARDS Pneumonia community-acquired, now with HCAP with carbapenem-resistant pseudomonas Sepsis Agitated delirium/metabolic encephalopathy Elevated LFT Hypokalemia Hypothyroidism Dyslipidemia Mild elevated trop likely 2nd resp failure Morbid obesity PLAN: Neuro: Fentanyl, propofol for goal RASS -2. Hold Daily sedation vacation due to hypoxia. continue Seroquel 50mg po q8h for delirium and oxycodone 10mg po q4h femi for pain. Pulm: On PRVC/AC RR 16, TV 550, PEEP 12--increase to 14, IT: 1.1 and FIO2 0.70. Decrease FIO2 as tiki. for goal spo2 > 88% Bronchodilators, prednisone taper. ICU vent bundle. Pulm is following- Dr. Beck Palliative care following in clarifying goals of care with the family. Vent day 23, family agreeable for trach -currently not stable resp thompson for trach. Gen surgery on board CV: Monitor HR and BP keep MAP>65mmg Echo showed EF 65-70% : Monitor renal function, I/O's. electrolytes replacement per protocol. Clinically euvolemic GI: Monitor LFT's ( trending down), on Protonix 40mg daily for GI prophylaxis US liver: Fatty liver and cholelithiasis. Repeat US if fever persists On TF Glucerna 1.5 @ 45ml/hr, minimal residual, restart after PEG. s/p PEG placement 09/01/16 ID: blood and sputum cx 08/15- NG strep pneumonia and Legionella urinary Ag negative Blood cultures 08/28: NGTD Sputum culture 08/28: Pseudomonas C Diff negative 08/28. Lines changed 08/28. Sputum 09/02 PSAE, resistant to carbapenem, intermediate to Levaquin. - Dcd cefepime/Levaquin on 09/05. started on Zosyn 4.5gm iv q6h and tobramycin 7 mg/kg/day. - she has clearly failed monotherapy given the development of resistance without clinical improvement. we will plan on full course of double coverage. - Consult ID if no improvement in 24-48 hours Heme: Monitor CBC Endo: on SSI ( medium scale) for glycemic control On Synthroid 200mcg daily. TSH 1.37 GI prophylaxis- Prevacid per tube. DVT prophylaxis-Heparin SQ, SCDs Lines: - Left SC TLC 08/28 - Miller - PEG 09/01/16 Not stable for trach at this time. Anticipate transfer to LTAC after Trach, if patient clinically improves CCT 45 minutes, exclusive of separately billable procedures. Problem Qualifiers (1) CHF (congestive heart failure): Qualified Code: I50.9 - Acute congestive heart failure, unspecified congestive heart failure type (2) Respiratory failure: Qualified Code: J96.02 - Acute respiratory failure with hypercapnia (3) Pneumonia: Qualified Code: J18.9 - Pneumonia of both lungs due to infectious organism, unspecified part of lung Darian Wylie MD Sep 06, 2016 11:12
--- NOTE | 2016-09-06 12:13 | RADRPT ---
EXAM DATE/TIME: 09/06/2016 11:09 [facility] COMPARISON: CHEST SINGLE AP, September 04, 2016, 3:31. INDICATIONS : Respiratory distress. MEDICAL HISTORY : Hypothyroidism. Hypercholesterolemia. Hypertension. Apnea. SURGICAL HISTORY : Hysterectomy. Tubal ligation. ENCOUNTER: Subsequent ACUITY: 4 - 6 days PAIN SCORE: Non-responsive. LOCATION: Bilateral chest FINDINGS: Endotracheal tube at the superior margin the clavicles. Patchy bilateral consolidation greatest in th e right lung base and left upper lobe. Cardiomegaly. CONCLUSION: No significant change has occurred. Terry Estrada MD on September 06, 2016 at 12:11 Board Certified Radiologist. This report was verified electronically.
[2016-09-06] MEDS: TOBRAMYCIN INJ 560 MG in SODIUM CHLORIDE 0.9% INJ 100 ML IV SCH (13:20)
[2016-09-06] MEDS: fentaNYL DRIP 250 ML IV SCH (17:14)
--- NOTE | 2016-09-06 17:33 | HHI.HCPN ---
Reason for visit a. To assist with evaluation and management of symptoms including: dyspnea, pain. b. To assist medical decision maker(s) with: better understanding of current medical conditions; weighing benefits/burdens of medical treatment options; making medical treatment decisions. . (RUMA COOPER) Subjective/Interval History Patient seen and examined in ICU. Discussed with nurse, . Also present Sara Candelario, [employer] med student. Patient remains sedated on mechanical ventilation , FI 02 70%, PEEP 14. Patient continues with high FiO2 needs. Chest xray no significant change. Tmax 102. BP 97/53. WBC 11.5. Remains on Fentanyl and Diprivan drips. No obvious signs of pain during my visit. Nurse reports increased HR, respirations and BP when off sedation. . Family/friend interactions Spoke with daughterLoree via telephone. She indicates family now on the same page and wants to proceed with trach when medically stable. She understands patient is not yet stable enough to proceed. Medical update provided. . (RUMA COOPER) Advance Directives Living Will: Never completed Health Care Surrogate: Never completed Durable Power of Dj Instructor: Never completed (RUMA COOPER) Advance Directive Specifics Health Care Surrogate(s): No known written advance directives. Patient is currently incapacitated to make her own health care decisions, uncertain if she will regain capacity. According to [place] statutes, health care proxy decision-making falls to the patient's daughter, Loree. Patient is not legally . . Significant change in goals: FULL CODE. Desires continued aggressive care including trach when medically stable. . (RUMA COOPER) Objective Vital Signs Date Time Temp Pulse Resp B/P Pulse Ox O2 Delivery O2 Flow Rate FiO2 09/06/16 15:38 96 70 09/06/16 14:21 22 09/06/16 14:00 98 09/06/16 12:24 94 70 09/06/16 12:00 100.7 96 24 97/53 94 09/06/16 12:00 96 09/06/16 12:00 75 09/06/16 11:26 22 09/06/16 10:00 101 09/06/16 08:03 94 75 09/06/16 08:00 75 4/12/17 08:00 102.0 90 22 102/55 94 09/06/16 08:00 90 09/06/16 06:00 92 09/06/16 04:00 93 09/06/16 04:00 75 09/06/16 04:00 100.1 93 22 100/56 94 09/06/16 03:51 97 75 09/06/16 02:05 93 75 09/06/16 02:00 96 09/06/16 00:00 75 09/06/16 00:00 99.0 90 20 95/52 93 09/06/16 00:00 90 09/05/16 22:00 94 09/05/16 21:33 93 75 09/05/16 20:00 92 09/05/16 20:00 75 09/05/16 20:00 99.6 92 20 95/53 93 09/05/16 18:00 90 Intake & Output 09/06/16 09/06/16 07:00 19:00 Intake Total 2049 ml 893 ml Output Total 1100 ml 800 ml Balance 949 ml 93 ml IV Total 968 ml 437 ml Tube Feeding 181 ml 156 ml Other 900 ml 300 ml Output Urine Total 1100 ml 800 ml Physical Exam CONSTITUTIONAL/GENERAL: This is an adequately nourished patient, sedated on mechanical ventilation. TUBES/LINES/DRAINS: ETT, left subclavian central line, PEG tube, Miller,podus boots, specialty bed. SKIN: No jaundice, rashes, or lesions. Ecchymoses on upper extremities. No wounds seen anteriorly. Skin temperature appropriate. Not diaphoretic. ENT: Unable to assess hearing. earing grossly normal. Nose without bleeding or purulent drainage. Throat difficult to visualize secondary to ETT, poor dentition. CARDIOVASCULAR: Regular rate and rhythm without murmurs, gallops, or rubs. RESPIRATORY/CHEST: Symmetric, tachypneic on mechanical vent. Few basilar crackles noted. GASTROINTESTINAL: Abdomen soft, non-tender, nondistended. No guarding. Bowel sounds present. GENITOURINARY: Without palpable bladder distension. Miller catheter in place. MUSCULOSKELETAL: Extremities without clubbing, cyanosis, or edema. No mottling or clubbing. NEUROLOGICAL: sedated. PSYCHIATRIC: sedated. . (RUMA COOPER-Des) Diagnostic Tests Laboratory Laboratory Tests Test 09/04/16 09/05/16 09/06/16 03:00 04:16 03:30 White Blood Count 13.4 TH/MM3 13.1 TH/MM3 11.5 TH/MM3 (4.0-11.0) (4.0-11.0) (4.0-11.0) Red Blood Count 3.95 MIL/MM3 3.73 MIL/MM3 3.71 MIL/MM3 (4.00-5.30) (4.00-5.30) (4.00-5.30) Hemoglobin 11.1 GM/DL 10.4 GM/DL 10.1 GM/DL (11.6-15.3) (11.6-15.3) (11.6-15.3) Hematocrit 34.0 % 32.3 % 31.9 % (35.0-46.0) (35.0-46.0) (35.0-46.0) Mean Corpuscular Volume 86.1 FL 86.7 FL 86.2 FL (80.0-100.0) (80.0-100.0) (80.0-100.0) Mean Corpuscular Hemoglobin 28.1 PG 28.0 PG 27.2 PG (27.0-34.0) (27.0-34.0) (27.0-34.0) Mean Corpuscular Hemoglobin 32.6 % 32.3 % 31.6 % Concent (32.0-36.0) (32.0-36.0) (32.0-36.0) Red Cell Distribution Width 17.0 % 17.6 % 17.2 % (11.6-17.2) (11.6-17.2) (11.6-17.2) Platelet Count 229 TH/MM3 238 TH/MM3 244 TH/MM3 (150-450) (150-450) (150-450) Mean Platelet Volume 9.1 FL 9.1 FL 9.2 FL (7.0-11.0) (7.0-11.0) (7.0-11.0) Neutrophils (%) (Auto) 92.8 % (16.0-70.0) Lymphocytes (%) (Auto) 3.7 % (9.0-44.0) Monocytes (%) (Auto) 2.6 % (0.0-8.0) Eosinophils (%) (Auto) 0.8 % (0.0-4.0) Basophils (%) (Auto) 0.1 % (0.0-2.0) Neutrophils # (Auto) 12.4 TH/MM3 (1.8-7.7) Lymphocytes # (Auto) 0.5 TH/MM3 (1.0-4.8) Monocytes # (Auto) 0.4 TH/MM3 (0-0.9) Eosinophils # (Auto) 0.1 TH/MM3 (0-0.4) Basophils # (Auto) 0.0 TH/MM3 (0-0.2) CBC Comment AUTO DIFF Differential Total Cells 100 Counted Neutrophils % (Manual) 61 % (16-70) Band Neutrophils % 32 % (0-6) Lymphocytes % 3 % (9-44) Monocytes % 3 % (0-8) Neutrophils # (Manual) 12.6 TH/MM3 (1.8-7.7) Metamyelocytes 1 % (0-1) Differential Comment FINAL DIFF MANUAL Platelet Estimate NORMAL (NORMAL) Platelet Morphology Comment NORMAL (NORMAL) Sodium Level 138 MEQ/L 138 MEQ/L 136 MEQ/L (136-145) (136-145) (136-145) Potassium Level 3.5 MEQ/L 3.6 MEQ/L 3.8 MEQ/L (3.5-5.1) (3.5-5.1) (3.5-5.1) Chloride Level 103 MEQ/L 104 MEQ/L 102 MEQ/L (98-107) (98-107) (98-107) Carbon Dioxide Level 25.9 MEQ/L 24.8 MEQ/L 25.4 MEQ/L (21.0-32.0) (21.0-32.0) (21.0-32.0) Anion Gap 9 MEQ/L (5-15) 9 MEQ/L (5-15) 9 MEQ/L (5-15) Blood Urea Nitrogen 12 MG/DL (7-18) 12 MG/DL (7-18) 11 MG/DL (7-18) Creatinine 0.37 MG/DL 0.30 MG/DL 0.37 MG/DL (0.50-1.00) (0.50-1.00) (0.50-1.00) Estimat Glomerular Filtration 181 ML/MIN 231 ML/MIN 181 ML/MIN Rate (>89) (>89) (>89) Random Glucose 152 MG/DL 133 MG/DL 103 MG/DL (74-106) (74-106) (74-106) Calcium Level 8.6 MG/DL 8.7 MG/DL 8.4 MG/DL (8.5-10.1) (8.5-10.1) (8.5-10.1) Magnesium Level 2.1 MG/DL (1.5-2.5) Total Bilirubin 0.6 MG/DL (0.2-1.0) Aspartate Amino Transf 31 U/L (15-37) (AST/SGOT) Alanine Aminotransferase 43 U/L (10-53) (ALT/SGPT) Alkaline Phosphatase 130 U/L (45-117) Total Protein 6.3 GM/DL (6.4-8.2) Albumin 1.8 GM/DL (3.4-5.0) (RUMA COOPER) Result Diagram: 09/06/16 03309/06/16 0330 Microbiology Microbiology Date/Time Procedure Status Source Growth 09/02/16 11:10 Aerobic Blood Culture - Preliminary Resulted Blood Peripheral NO GROWTH IN 4 DAYS 09/02/16 11:10 Anaerobic Blood Culture - Preliminary Resulted Blood Peripheral NO GROWTH IN 4 DAYS 09/02/16 09:38 Gram Stain - Final Complete Sputum Endotracheal 09/02/16 09:38 Sputum Culture - Final Complete Pseudomonas Aeruginosa 09/02/16 09:12 Urine Culture - Final Complete Urine Catheterized Urine NO GROWTH IN 48 HOURS. . Imaging Last Impressions Chest X-Ray 09/06/16 0000 Signed Impressions: Service Date/Time: Tuesday, September 06, 2016 11:09 - CONCLUSION: No significant change has occurred. Terry Estrada MD Gall Bladder Ultrasound 08/29/16 0000 Signed Impressions: Service Date/Time: Monday, August 29, 2016 15:21 - CONCLUSION: 1. Hepatomegaly with heterogeneous echotexture throughout the liver. 2. There is a large echogenic area near the neck of the gallbladder suggestive of a stone, but despite its large size, demonstrates no acoustic shadowing in any of the views. Taco Davidson MD Liver Ultrasound 08/15/16 0000 Signed Impressions: Service Date/Time: Monday, August 15, 2016 15:45 - CONCLUSION: Fatty liver and cholelithiasis. Common bile duct is dilated and common bile duct stone is not excluded. Danyel Escalante MD CT Angiography 08/15/16 0000 Signed Impressions: Service Date/Time: Monday, August 15, 2016 02:33 - CONCLUSION: 1. No evidence for pulmonary embolism. 2. Multifocal consolidation greatest in the right lower lobe and associated adenopathy. Trery Estrada MD . Procedures * 09/01/16 PEG tube placed * 08/28/16 left subclavian central line placed * 08/18/16 right arterial line placed * 08/18/16 right IJ central line placed * 08/14/16 intubation . (RUMA COOPER TANK CLEANING SUPERVISOR-C) Assessment and Plan Disease Oriented Problem List: (1) ARDS (adult respiratory distress syndrome) (2) acute hypercapneic and hypoxemic respiratory failure (3) HCAP (healthcare-associated pneumonia) (4) CHF (congestive heart failure) (5) Hypokalemia (6) Morbid obesity (7) Hypothyroidism (8) Dyslipidemia (9) Metabolic encephalopathy (10) Sepsis (11) Elevated LFTs Symptom Scale: (1) Pain 0-10 Scale: Unable to quantify Comment: Sedated with fentanyl and propofol. (2) Dyspnea 0-10 Scale: Unable to quantify Comment: Remains on mechanical ventilation, sedated with fentanyl and propofol Pertinent Non-Medical Issues Psychosocial: single, significant other, not legally . As one daughter. Spiritual: [employer]. Legal: Patient is currently incapacitated to participate in healthcare decision- making. Single, does have a significant other not legally . Has one daughter. According to 4 to statutes, health care proxy decision-making falls to daughter Loree. Ethical issues impacting care: no known concerns at this time. . Important Contacts * Loree Marinelli, daughter (HCP): [phone] * Rony Marinelli, significant other: [phone] . Prognosis In speaking with Dr. Hoffman, he feels patient has pneumonia complicated by worsening COPD, while she will likely have a long road to recovery it is possible she will survive given her young age. She also remains high risk for further setbacks her decline given prolonged ICU stay and prolonged mechanical ventilation. . Code Status: Full Code Plan * Patient is currently incapacitated to participate in healthcare decision- making. Single, does have a significant other not legally . Has one daughter. According to [place] statutes, health care proxy decision-making falls to daughter Loree. * FULL CODE. * 09/06/16 - Spoke with daughter, Loree via telephone. She indicates family now on the same page and wants to proceed with trach when medically stable. She understands patient is not yet stable enough to proceed. Medical update provided. * SYMPTOMS: dyspnea: remains on mechanical ventilation, sedated with Fentanyl and Diprivan. Pain : secondary to infection, mech vent, recent PEG tube placement and bedbound status. No new medication recommendations at this time. * Palliative care will continue to follow to assist with symptom management and further clarification of treatment goals as needed. . (RUMA COOPER) Attestation To help prompt me to consider important information that might be impacting today's encounter and assessment, information from prior notes written by myself or my colleagues may have been "brought forward" into today's note. My signature on this note, however, is an attestation that I personally performed the exam, history, and/or decision-making noted today, and, unless otherwise indicated, the interactions with patient, family, and staff as well as the review of records all occurred today. I also attest that the listed assessment and stated plan reflect my best clinical judgment today based on the combination of historical information, prior notes, and today's exam/ interactions. When time spent is documented, it refers only to time spent today by the signer, or if indicated, combined time spent today by collaborating physician/nurse practitioner. (RUMA COOPER) Collaborating MD Comments . Chart reviewed. Cased discussed with palliative care TANK CLEANING SUPERVISOR. Above TANK CLEANING SUPERVISOR note reviewed and I concur. . (Benny Sosa MD) RUMA COOPER Sep 06, 2016 17:33 Benny Sosa MD October 23, 2016 15:03
[2016-09-06] MEDS: PRAVASTATIN SOD 20 MG TAB PO SCH (20:15)
[2016-09-07] VITALS (19 sets, daily range): BP systolic 95–109; BP diastolic 49–58; PULSE 86–104; RESP 23–26; TEMP 99.5–102; O2SAT 92–100
[2016-09-07] MEDS: HEPARIN SODIUM - SQ 10,000 UNITS/ML VIAL SQ SCH ×4 (01:14→23:58)
[2016-09-07] MEDS: PROPOFOL 1000 MG/100 ML INJ 100 ML IV SCH ×5 (01:14→22:19)
[2016-09-07] MEDS: RESP: ALBUTEROL 2.5 MG/IPRATROPIUM 0.5 MG NEB (SCH) INH ×6 (03:00→23:26)
[2016-09-07] MEDS: CHLORHEXIDINE GLUCONATE 2 % 1 PACK (2 CLOTHS) TOP SCH (04:00)
[2016-09-07] MEDS: INSULIN NovoLIN REGULAR SUPPLEMENTAL SCALE SQ SCH ×4 (04:00→22:00)
[2016-09-07] MEDS: oxyCODONE HCL ORAL CONC 20 MG/ML SYRINGE PO SCH ×7 (04:52→23:58)
[2016-09-07] MEDS: PIPERACIL-TAZO 4.5 GM PREMIX 100 ML IV SCH ×2 (04:52→10:45)
[2016-09-07] MEDS: ACETAMINOPHEN 325 MG TAB PO PRN (04:53)
[2016-09-07] MEDS: QUEtiapine FUMARATE 25 MG TAB PO SCH ×3 (04:53→22:20)
[2016-09-07] MEDS: LEVOTHYROXINE SODIUM 200 MCG TAB PO SCH (04:53)
[2016-09-07 05:22] LABS: AUTOMATED NEUTROPHIL # 7.7 TH/MM3 (1.8-7.7); BASOPHIL # 0.1 TH/MM3 (0-0.2); BASOPHIL % 0.6 % (0.0-2.0); EOSINOPHIL # 0.1 TH/MM3 (0-0.4); EOSINOPHIL % 1.6 % (0.0-4.0); HEMATOCRIT 30.8 % (35.0-46.0); LYMPH % 6.2 % (9.0-44.0); LYMPHOCYTE # 0.6 TH/MM3 (1.0-4.8); MEAN CELL VOLUME 85.4 FL (80.0-100.0); MEAN CORPUSCULAR HEMOGLOBIN 28.3 PG (27.0-34.0); MEAN CORPUSCULAR HGB CONC 33.2 % (32.0-36.0); MONO % 6.4 % (0.0-8.0); NEUT % 85.2 % (16.0-70.0); PLATELET COUNT 270 TH/MM3 (150-450); RED BLOOD COUNT 3.61 MIL/MM3 (4.00-5.30); RED CELL DISTRIBUTION WIDTH 17.3 % (11.6-17.2)
[2016-09-07 05:25] LABS: HEMO FLAGS AUTO DIFF
[2016-09-07 05:46] LABS: ALT (GPT) 28 U/L (10-53); ANION GAP 9 MEQ/L (5-15); AST (GOT) 23 U/L (15-37); BICARBONATE 26.5 MEQ/L (21.0-32.0); BLOOD UREA NITROGEN 10 MG/DL (7-18); CHLORIDE 102 MEQ/L (98-107); GLOMERULAR FILTRATION RATE 148 ML/MIN (>89); MAGNESIUM 2.3 MG/DL (1.5-2.5); POTASSIUM 3.6 MEQ/L (3.5-5.1); SODIUM (NA) 137 MEQ/L (136-145)
[2016-09-07 05:48] LABS: ALKALINE PHOSPHATASE 147 U/L (45-117); TOTAL BILIRUBIN ADULT 0.6 MG/DL (0.2-1.0)
[2016-09-07 06:55] LABS: BANDS 9 % (0-6); EOSINOPHILS 2 % (0-4); METAMYELOCYTES 1 % (0-1); NEUTROPHIL # MANUAL DIFF 7.7 TH/MM3 (1.8-7.7); POLYS (SEG NEUTROPHILS) 75 % (16-70); WBC DIFF SAMPLE 100
[2016-09-07 06:56] LABS: PLATELET ESTIMATE SMEAR NORMAL (NORMAL); PLATELET MORPHOLOGY NORMAL (NORMAL); SCAN/DIFF FINAL DIFF MANUAL
[2016-09-07] MEDS: BENEPROTEIN POWDER 1 PACK G-TUBE SCH ×3 (09:00→18:00)
[2016-09-07] MEDS: TOBRAMYCIN INJ 560 MG in SODIUM CHLORIDE 0.9% INJ 100 ML IV SCH (10:45)
[2016-09-07] MEDS: ARTIFICIAL TEARS OPTH SOLN 15 ML BTL EACH EYE SCH ×3 (10:45→18:18)
[2016-09-07] MEDS: fentaNYL DRIP 250 ML IV SCH ×2 (10:48→22:19)
[2016-09-07] MEDS: LANSOPRAZOLE SOLUTAB 30 MG TAB NG SCH (10:48)
[2016-09-07] MEDS: SODIUM CHLORIDE 0.9% FLUSH 10 ML FLUSH IV FLUSH SCH ×2 (10:49→20:47)
[2016-09-07] MEDS ORDERED: BUMETANIDE INJ 1 MG/4 ML VIAL IV PUSH ONE (12:30)
[2016-09-07] MEDS: POTASSIUM CHLORIDE 20 MEQ CONTROLLED RELEASE TAB PO SCH ×2 (12:30→20:47)
--- NOTE | 2016-09-07 12:51 | HHI.CCPN ---
Subjective Remarks/Hospital Course 56-year-old morbidly obese female brought in the emergency department in respiratory distress. She was intubated by ER attending. She has been sick for about a week with symptoms consistent with UTI. She's had fevers and chills. She's been short of breath. She's had fatigue. She has had a cough and chest pain with coughing. The family reports that she's been delirious for the last 3 days. 08/15 Patient is sedated with Diprivan, Versed, Fentanyl and intubated. CTA chest showed no PE multifocal consolidation greatest in RLL. Tmax 100.6 08/16 Patient is sedated with Diprivan and Fentanyl. Afebrile. CXR this morning showed increase consolidation. 08/17 Patient remains sedated and intubated. T:100.4 On PRVC/AC RR 18, Tv 500, IT :1.0 PEEP:10, FIO2 75% 08/18 Remains sedated and intubated. Afebrile. CXR this morning unchanged bibasilar infiltrates and effusions. 08/19 Patient was placed on rotoprone bed last night for proning sedated with Diprivan, Versed and Fentnayl in addition she is on Nimbex. On PRVC/AC RR 20, TV 400, IT:1.1, PEEP:14 and FIO2 80%. Afebrile. 08/20 Patient remains sedated and intubated. Remains on PRVC/AC mode with improvements in her oxygenation on FIO2 50% from 80% yesterday and PEEP:12. 08/21 Patient remains sedated and intubated. On PRVC/AC mode with RR 20, TV 400, IT:1.1, PEEP: 12 and FIO2 50%. Afebrile. 08/22 No acute events overnight. Remains sedated, intubated and on Nimbex.. T: 99.8. On PRVC mode with PEP: 12, FIO2 50%. CXR from yesterday showed better aeration, RLL infiltrate unchanged. 08/23 Chest x-ray worsening. Methylprednisolone taper to twice a day by pulmonary. The patient's FiO2 was found to be 100% this a.m., will continue to wean. 08/24: 1 desat episode yesterday when supine. still remains prone now. no vasopressors. sedated and paralyzed. 08/25: flolan added yesterday. fio2 down to 60%. remained supine all night. still on neuromuscular blockade. net -500cc/24h. 08/26: good diuresis. remained supine. fio2 70%. weaning flolan. remains with significant respiratory support and high peep despite 6L diuresis overnight. Cr still stable. 08/27: continues with good diuresis. net negative 3L/24h. fio2 down to 55%. flolan off. still high peep. not ready for SBT. more agitated today. Cr remains stable despite aggressive diuresis. 08/28: diuresis continues. -3.3L/24h. spiked fever overnight with a jump in wbc to 16 this AM. fio2 60%, but her pulmonary improvements have plateaued at this point. still on peep 12. 08/29: net -1.7L/24h. Cr starting to rise. still spiking fevers despite vanc/ cefepime added yesterday. wbc continues to rise. clinically appears infected, although unclear source. peep 10, fio2 60%. will likely need trach. 08/30: net +800cc, but Cr downtrending. appears clinically euvolemic. fever curve downtrending. wbc downtrending. on 40% fio2, peep 8 today. still following commands. 08/31: failed SBT after only 45 minutes yesterday. intubated for > 2 weeks at this point. will attempt to pursue trach/peg today. will continue with pulmonary strengthening. daily SBTs. 09/01 CXR showing increasing bibasilar infiltrate. Failed C Pap trial in 5 minutes due to severe tachypnea. PEG tube today. Family has not decided on trach yet 09/02: Patient febrile to 101.1, CXR increased infiltrate left upper lung and right lower lobe. Pancultured. Cefepime added today and one dose of vancomycin. Continues to fail C Pap trial due to tachypnea and respiratory distress 09/03: Remains hypoxemic on 75% oxygen with new pneumonia. Sputum culture 09/02/16 with GNR. Family agreeable for tracheostomy but patient is not stable at this point for trach 09/04: still on 70% fio2. still hypoxic. pneumonia persists. needs trach, but too unstable at this point. 09/05: remains on 75% fio2. pseudomonas sensitivities came back resistant to carbapenems, intermediate to levaquin. still spiking fevers. not clinically improving. wbc remains elevated. 09/06: Remains on 12 of PEEP and FiO2 75%. Zosyn and tobramycin started yesterday. WBC count trending down today 11.5 from 13.1. Remains heavily sedated for ventilator synchrony. MAXIMUM TEMPERATURE 100.3 09/07: Continues to spike fever. CXR unchanged. WBC count improving. PEEP 14. FiO2 60%. Will start IV Bumex 1mg IV q12 Objective Vital Signs Date Time Temp Pulse Resp B/P Pulse Ox O2 Delivery O2 Flow Rate FiO2 09/07/16 11:37 94 70 09/07/16 06:00 89 09/07/16 04:00 102.0 26 106/54 Intake and Output 09/06/16 09/06/16 09/07/16 08:00 16:00 00:00 Intake Total 1099 ml 893 ml 806 ml Output Total 600 ml 800 ml 1000 ml Balance 499 ml 93 ml -194 ml Result Diagram: 09/07/16 0500 09/07/16 0500 Imaging Last Impressions Chest X-Ray 08/21/16 0000 Signed Impressions: Service Date/Time: Sunday, August 21, 2016 07:23 - CONCLUSION: Better aeration from the prior study. Right lower lobe infiltrate is unchanged. Taco Haas Jr., MD Liver Ultrasound 08/15/16 0000 Signed Impressions: Service Date/Time: Monday, August 15, 2016 15:45 - CONCLUSION: Fatty liver and cholelithiasis. Common bile duct is dilated and common bile duct stone is not excluded. Danyel Escalante MD CT Angiography 08/15/16 0000 Signed Impressions: Service Date/Time: Monday, August 15, 2016 02:33 - CONCLUSION: 1. No evidence for pulmonary embolism. 2. Multifocal consolidation greatest in the right lower lobe and associated adenopathy. Terry Estrada MD Objective Remarks GENERAL: Patient is intubated and sedated, critically ill SKIN: Warm and dry. HEAD: Normocephalic. EYES: No scleral icterus. No injection or drainage. NECK: trachea midline. morbid obesity prevents accurate assessment of JVD. CARDIOVASCULAR: Regular rate and rhythm without murmurs, gallops, or rubs. RESPIRATORY: Breath sounds equal bilaterally. Tachypneic on the ventilator. Few basilar crackles. On 14 PEEP, 60% FiO2 GASTROINTESTINAL: Abdomen obese, soft, non-tender, nondistended. MUSCULOSKELETAL: No cyanosis, or edema. Neuro: RASS -2. follows commands very weakly on sedation hold. Currently sedated with propofol and fentanyl Urinary Catheter: Yes Assessment to: Continue A/P Problem List: (1) CHF (congestive heart failure) ICD Code: I50.9 Status: Acute (2) Respiratory failure ICD Code: J96.90 Status: Acute (3) Pneumonia ICD Code: J18.9 Status: Acute (4) ARDS (adult respiratory distress syndrome) ICD Code: J80 Status: Acute Assessment and Plan ASSESSMENT: Acute hypercapnic and hypoxemic respiratory failure ARDS Pneumonia community-acquired, now with HCAP with carbapenem-resistant pseudomonas Severe sepsis Agitated delirium/metabolic encephalopathy Elevated LFT Hypokalemia Hypothyroidism Dyslipidemia Mild elevated trop likely 2nd resp failure Morbid obesity PLAN: Neuro: Fentanyl, propofol for goal RASS -2. Holding Daily sedation vacation due to hypoxia. continue Seroquel 50mg po q8h for delirium and oxycodone 10mg po q4h femi for pain. Pulm: On PRVC/AC RR 16, TV 550, PEEP 14, IT: 1.1 and FIO2 0.70. Decrease FIO2 as tiki. for goal spo2 > 88% Bronchodilators, prednisone taper. ICU vent bundle. Pulm is following- Dr. Beck Palliative care following in clarifying goals of care with the family. Vent day 24, family agreeable for trach -currently not stable resp thompson for trach. Gen surgery on board CV: Monitor HR and BP keep MAP>65mmg Echo showed EF 65-70% : Monitor renal function, I/O's. electrolytes replacement per protocol. Clinically euvolemic GI: Monitor LFT's ( trending down), on Protonix 40mg daily for GI prophylaxis US liver: Fatty liver and cholelithiasis. Repeat today to evaluate cholecystitis On TF Glucerna 1.5 @ 45ml/hr, minimal residual, restart after PEG. s/p PEG placement 09/01/16 ID: blood and sputum cx 08/15- NG strep pneumonia and Legionella urinary Ag negative Blood cultures 08/28: NGTD Sputum culture 08/28: Pseudomonas C Diff negative 08/28. Lines changed 08/28. Sputum 09/02 PSAE, resistant to carbapenem, intermediate to Levaquin. - Dcd cefepime/Levaquin on 09/05. started on Zosyn 4.5gm iv q6h and tobramycin 7 mg/kg/day. - she has clearly failed monotherapy given the development of resistance without clinical improvement. we will plan on full course of double coverage. - Consult ID today due to recurrent fever. Add vancomycin. Coelho culture Heme: Monitor CBC Endo: on SSI ( medium scale) for glycemic control On Synthroid 200mcg daily. TSH 1.37 GI prophylaxis- Prevacid per tube. DVT prophylaxis Heparin SQ, SCDs Lines: - Left SC TLC 08/28 - Miller - PEG 09/01/16 Not stable for trach at this time. CCT 45 minutes, exclusive of separately billable procedures. Problem Qualifiers (1) CHF (congestive heart failure): Qualified Code: I50.9 - Acute congestive heart failure, unspecified congestive heart failure type (2) Respiratory failure: Qualified Code: J96.02 - Acute respiratory failure with hypercapnia (3) Pneumonia: Qualified Code: J18.9 - Pneumonia of both lungs due to infectious organism, unspecified part of lung Darian Wylie MD Sep 07, 2016 12:50
[2016-09-07] MEDS: POTASSIUM CHLOR 20 MEQ PREMIX 100 ML IV PRN (13:04)
--- NOTE | 2016-09-07 14:07 | PD.ID.CON ---
History of Present Illness Service ID Consult Requested By Dr.Sinoj Wylie Reason for Consult Evaluation and Mment of new fevers in patient being treated for PSAE pneumonia. Primary Care Physician Unknown Diagnoses: History of Present Illness Patient intubated. No family in the room. Most of the history is from review of medical records and discussion with RN taking care of the patient. Ms. Clayton is a 56 year old female with past medical history of Morbid Obesity , hypothyroidism, obstructive sleep apnea, and high cholesterol. Patient reportedly is on oxygen at home 2L, and was supposed to be using BiPAP at night for OJE but was reportedly non compliant. Patient presented to [facility] emergency department with family on 08/14/16 for evaluation of respiratory distress. Review of notes indicate the patient had reported being sick for one week prior to presentation with progressively worsening symptoms including fever , chills, shortness of breath, cough, chest pain with coughing, increase confusion and fatigue. Initial evaluation in the ED revealed temp of 100.6 F, HR 106, RR 36, BP 178/103, O2 Sats 100% FiO2. Her WBC was 13.6, Plts 423, Cr 0.77. LFTs were elevated total bilirubin 0.4, AST 77, ALT 72, Alk phos 143. Patient had sepsis workup initiated. UA was negative CXR with bilateral infiltrated. Patient is admitted to ICU with respiratory failure, CHF, pneumonia, probable underlying COPD. Patient was intubated and placed on mechanical ventilation. Pulmonology, Dr. Beck was consulted for respiratory failure/sleep apnea and continues to follow. 08/15/16 CTA showed no evidence of pulmonary embolism, multifocal consolidation greatest right lower lobe. Hospital course has been complicated by continued high oxygen ventilator needs, ARDS and inability to wean from vent. Patient was started on Zosyn IV and Tobramycin pharmacy consult placed by Toy Stuffer. At the time of my evaluation patient is in the ICU on ventilator (AC 16, PEEP 14 , FiO2 60%). Upon discussion with RN it appears patient does not have much in terms of respiratory secretions but are mcpherson colored and thick. Patient has a macular fine rash all over her abdomen and chest wall as well as back. Urine output is good. Not on any pressors. Sedation vacation not attempted today but patient appears to be moving her extremities and opens eyes spontaneously transiently per discussion with RN. Review of Systems ROS Limitations: Intubated, Altered Mental Status Past Family Social History Allergies: Coded Allergies: No Known Allergies (Verified , 08/14/16) Past Medical History Elevated BMI Hypothyroidism Obstructive sleep apnea Obesity hypoventilation syndrome Tobacco use disorder probable COPD hyperlipidemia hypertension Past Surgical History Tubal ligation Partial hysterectomy Reported Medications Reported Meds & Active Scripts Active Reported Levothyroxine (Levothyroxine Sodium) 50 Mcg Tab 50 Mcg PO DAILY Lovastatin 20 Mg Tab 20 Mg PO HS Levothyroxine (Levothyroxine Sodium) 200 Mcg Tab 200 Mcg PO DAILY Hydrochlorothiazide 12.5 Mg Cap 12.5 Mg PO DAILY Active Ordered Medications Current Medications Medications (Trade) Dose Ordered Sig/Josephine Route Start Time Stop Time Status Last Admin (Synthroid) 200 mcg DAILY@06 PO 08/15/16 06:00 09/07/16 04:53 (Pravachol) 20 mg HS PO 08/15/16 21:00 09/06/16 20:15 (NS Flush) 2 ml UNSCH PRN IVF 08/14/16 23:15 09/04/16 18:07 (NS Flush) 2 ml BID IV FLUSH 08/15/16 09:00 09/07/16 10:49 (Tylenol) 650 mg Q6H PRN PO 08/14/16 23:15 09/07/16 04:53 (Morphine Inj) 2 mg Q2H PRN IV 08/14/16 23:15 (Tears Naturale Opth Soln) 1 drop TID EACH EYE 08/15/16 09:00 09/07/16 13:04 (Zofran Inj) 4 mg Q6H PRN IV 08/14/16 23:15 Miscellaneous Information 1 Q361D XX 08/14/16 23:15 (Chlorhexidine 2% Cloth) 3 pack Taper DAILY@04 TOP 08/15/16 04:00 08/11/17 03:59 09/07/16 04:00 Chlorhexidine Gluconate 3 pack 3 pack UNSCH PRN TOP 08/14/16 23:15 (Diprivan 1000 Mg/100ml Inj) 100 ml @ 0 mls/hr TITRATE IV 08/14/16 23:15 09/07/16 13:03 Protein 2 pack 2 pack TID G-TUBE 08/15/16 09:00 09/07/16 13:00 Fentanyl Citrate 250 ml @ 0 mls/hr TITRATE IV 08/14/16 23:15 09/07/16 10:48 Potassium Chloride 100 ml @ 50 mls/hr Q2H PRN IV 08/15/16 08:15 09/02/16 13:36 Potassium Chloride 100 ml @ 50 mls/hr Q2H PRN IV 08/15/16 08:15 09/07/16 13:04 Potassium Chloride 100 ml @ 25 mls/hr UNSCH PRN IV 08/15/16 08:15 09/04/16 09:08 Potassium Chloride 100 ml @ 50 mls/hr Q2H PRN IV 08/15/16 08:15 08/25/16 10:59 (Magnesium Sulfate Inj/NS Inj) 100 ml @ 50 mls/hr UNSCH PRN IV 08/15/16 08:15 Magnesium Oxide 800 mg 800 mg UNSCH PRN PO 08/15/16 08:15 (Magnesium Sulfate Inj/NS Inj) 100 ml @ 50 mls/hr UNSCH PRN IV 08/15/16 08:15 Potassium Phosphate 2000 mg 2,000 mg Q4H PRN PO 08/15/16 08:15 (Sodium Phosphate Inj/NS 250 ml Inj) 250 ml @ 42 mls/hr UNSCH PRN IV 08/15/16 08:15 Potassium Phosphate 2000 mg 2,000 mg UNSCH PRN PO/TUBE 08/15/16 08:15 (Potassium Phosphate Inj/NS 250 ml Inj) 260 ml @ 42 mls/hr UNSCH PRN IV 08/15/16 08:15 08/16/16 08:01 (D50w (Vial) Inj) 25 ml UNSCH PRN IV PUSH 08/16/16 09:15 (NovoLIN R SUPPLEMENTAL SCALE) 1 Q6H SQ 08/16/16 10:00 09/04/16 10:23 (Heparin Inj) 5,000 units Q8H SQ 08/17/16 16:00 09/07/16 11:04 (SEROquel) 50 mg Q8HR PO 08/27/16 14:00 09/07/16 13:03 (Roxicodone Intensol Liq) 10 mg Q4HR PO 08/27/16 10:15 09/07/16 10:44 (Prevacid Odt) 30 mg DAILY NG 09/05/16 09:00 09/07/16 10:48 (Bumex Inj) 1 mg BID@09,18 IV PUSH 09/07/16 18:00 Potassium Chloride 20 meq 20 meq Q12HR PO 09/07/16 12:30 (Maxipime Inj/NS Inj) 100 ml @ 200 mls/hr Q8H IV 09/07/16 15:00 Family History Mother of lung cancer. Father of diabetes. Social History Tobacco: smokes 1 PPD ? duration unknown. Alcohol: none. Prescription med abuse: none. Illicits: none. Has a significant other, not legally have been together for approximately 38 years. Lives in [place]. Has a daughter, Loree. Has 2 sisters. From [place]. Moved to [place] in 1999. Worked in the [employer] business. Physical Exam Vital Signs Vital Signs Date Time Temp Pulse Resp B/P Pulse Ox O2 Delivery O2 Flow Rate FiO2 09/07/16 13:04 20 09/07/16 11:37 94 70 09/07/16 07:33 96 70 09/07/16 06:00 89 09/07/16 04:06 100 70 09/07/16 04:00 70 09/07/16 04:00 102.0 88 26 106/54 96 09/07/16 04:00 88 09/07/16 02:00 86 09/07/16 01:05 98 70 09/07/16 00:00 70 09/07/16 00:00 100.2 90 25 106/58 99 09/07/16 00:00 90 09/06/16 22:05 97 70 09/06/16 22:00 91 09/06/16 20:00 92 09/06/16 20:00 99.7 92 25 109/55 98 09/06/16 20:00 70 09/06/16 19:22 99 70 09/06/16 18:00 99 09/06/16 17:33 25 09/06/16 16:00 100.3 91 24 105/56 97 09/06/16 16:00 75 09/06/16 16:00 91 09/06/16 15:38 96 70 Physical Exam GENERAL: Morbidly obese CF patient, in no apparent distress. SKIN: Fine macular rash on chest, abdomen, back. Skin folds with erythema noted. HEAD: Atraumatic. Normocephalic. No temporal or scalp tenderness. EYES: Pupils equal round and reactive. Extraocular motions intact. No scleral icterus. No injection or drainage. ENT: Intubated. NECK: Large neck. Intubated. Supple, nontender, no meningeal signs. CARDIOVASCULAR: RRR. RESPIRATORY: Clear to auscultation. Breath sounds equal bilaterally. GASTROINTESTINAL: Abdomen soft, non-tender, nondistended. MUSCULOSKELETAL: Extremities without clubbing, cyanosis. Edema. NEUROLOGICAL: Sedated. IV line sites with no e.o infection. Miller in place with clear urine. Laboratory Laboratory Tests Test 09/07/16 05:00 White Blood Count 9.0 Red Blood Count 3.61 Hemoglobin 10.2 Hematocrit 30.8 Mean Corpuscular Volume 85.4 Mean Corpuscular Hemoglobin 28.3 Mean Corpuscular Hemoglobin 33.2 Concent Red Cell Distribution Width 17.3 Platelet Count 270 Mean Platelet Volume 8.6 Neutrophils (%) (Auto) 85.2 Lymphocytes (%) (Auto) 6.2 Monocytes (%) (Auto) 6.4 Eosinophils (%) (Auto) 1.6 Basophils (%) (Auto) 0.6 Neutrophils # (Auto) 7.7 Lymphocytes # (Auto) 0.6 Monocytes # (Auto) 0.6 Eosinophils # (Auto) 0.1 Basophils # (Auto) 0.1 CBC Comment AUTO DIFF Differential Total Cells 100 Counted Neutrophils % (Manual) 75 Band Neutrophils % 9 Lymphocytes % 9 Monocytes % 4 Eosinophils % 2 Neutrophils # (Manual) 7.7 Metamyelocytes 1 Differential Comment FINAL DIFF MANUAL Platelet Estimate NORMAL Platelet Morphology Comment NORMAL Sodium Level 137 Potassium Level 3.6 Chloride Level 102 Carbon Dioxide Level 26.5 Anion Gap 9 Blood Urea Nitrogen 10 Creatinine 0.44 Estimat Glomerular Filtration 148 Rate Random Glucose 127 Calcium Level 8.3 Magnesium Level 2.3 Total Bilirubin 0.6 Aspartate Amino Transf 23 (AST/SGOT) Alanine Aminotransferase 28 (ALT/SGPT) Alkaline Phosphatase 147 Total Protein 6.1 Albumin 1.5 Date/Time Procedure Status Source Growth 09/07/16 13:30 Urine Culture Received Urine Catheterized Urine Pending 09/07/16 13:30 Gram Stain Received Sputum Endotracheal Pending 09/07/16 13:30 Sputum Culture Received Sputum Endotracheal Pending Result Diagram: 09/07/16 0500 09/07/16 0500 Imaging Last Impressions Chest X-Ray 09/06/16 Signed Impressions: Service Date/Time: Tuesday, September 06, 2016 11:09 - CONCLUSION: No significant change has occurred. Terry Estrada MD Gall Bladder Ultrasound 08/29/16 Signed Impressions: Service Date/Time: Monday, August 29, 2016 15:21 - CONCLUSION: 1. Hepatomegaly with heterogeneous echotexture throughout the liver. 2. There is a large echogenic area near the neck of the gallbladder suggestive of a stone, but despite its large size, demonstrates no acoustic shadowing in any of the views. Taco Davidson MD Liver Ultrasound 08/15/16 Signed Impressions: Service Date/Time: Monday, August 15, 2016 15:45 - CONCLUSION: Fatty liver and cholelithiasis. Common bile duct is dilated and common bile duct stone is not excluded. Danyel Escalante MD CT Angiography 08/15/16 Signed Impressions: Service Date/Time: Monday, August 15, 2016 02:33 - CONCLUSION: 1. No evidence for pulmonary embolism. 2. Multifocal consolidation greatest in the right lower lobe and associated adenopathy. Terry Estrada MD Assessment and Plan Assessment and Plan Sepsis present on admission. Now with SIRS/Sepsis new. New Rash: ? cause for SIRS. Drug induced: Zosyn IV most likely. Reviewed MAR. PSAE pneumonia: pansensitive. R/o HCAP/VAP. Morbid Obesity (BMI 45.8 kg/m2) Obstructive Sleep Apnea (supposed to be on CPAP at home and home oxygen 2L) Acute respiratory failure vent dependent. Acute metabolic encephalopathy: infection, meds. Recs: Agree with rudolph cultures. Blood culture from periphery and line (d.w salvage winder and inspector to label line appropriately) DC Zosyn IV DC Tobramycin IV Start Cefepime IV Start Tobramycin nebs. Depending on clinical progression, if clinically stable if infiltrates not improving consider bronchoscopy (diagnostic and therapeutic) Lisa Pandey: Nick for rash as appropriate, Possible need for bronchoscopy. MAR reviewed, imaging reviewed and compared, WBC and fever trends reviewed (wbc normal today), critical thinking and decision making, d.w RN and MD. d/w pts significant other: Mr. Marinelli. Terri Uribe MD Sep 07, 2016 14:07 improving consider bronchoscopy (diagnostic and therapeutic) Lisa Pandey: Benadryl for rash as appropriate, Possible need for bronchoscopy. MAR reviewed, imaging reviewed and compared, WBC and fever trends reviewed (wbc normal today), critical thinking and decision making, lisa RN and MD. Terri Uribe MD Sep 07, 2016 14:07
[2016-09-07] MEDS: CEFEPIME INJ 2,000 MG in SODIUM CHLORIDE 0.9% INJ 100 ML IV SCH ×2 (15:32→22:19)
[2016-09-07] MEDS: BUMETANIDE INJ 1 MG/4 ML VIAL IV PUSH SCH (18:00)
[2016-09-07] MEDS: RESP: TOBRAMYCIN SULFATE 80 MG/2 ML NEB NEB SCH (19:16)
[2016-09-07] MEDS: PRAVASTATIN SOD 20 MG TAB PO SCH (20:47)
[2016-09-08] VITALS (20 sets, daily range): BP systolic 95–119; BP diastolic 50–71; PULSE 96–115; RESP 22–28; TEMP 98.6–99.8; O2SAT 92–97
[2016-09-08] MEDS: RESP: ALBUTEROL 2.5 MG/IPRATROPIUM 0.5 MG NEB (SCH) INH ×6 (03:21→23:08)
[2016-09-08] MEDS: oxyCODONE HCL ORAL CONC 20 MG/ML SYRINGE PO SCH ×5 (04:00→20:00)
[2016-09-08] MEDS: CHLORHEXIDINE GLUCONATE 2 % 1 PACK (2 CLOTHS) TOP SCH (04:00)
[2016-09-08] MEDS: INSULIN NovoLIN REGULAR SUPPLEMENTAL SCALE SQ SCH ×4 (04:00→21:18)
[2016-09-08 04:41] LABS: AUTOMATED NEUTROPHIL # 5.7 TH/MM3 (1.8-7.7); BASOPHIL % 0.5 % (0.0-2.0); EOSINOPHIL # 0.2 TH/MM3 (0-0.4); EOSINOPHIL % 2.2 % (0.0-4.0); HEMATOCRIT 31.7 % (35.0-46.0); LYMPH % 12.4 % (9.0-44.0); LYMPHOCYTE # 0.9 TH/MM3 (1.0-4.8); MEAN CELL VOLUME 85.4 FL (80.0-100.0); MEAN CORPUSCULAR HEMOGLOBIN 28.5 PG (27.0-34.0); MEAN CORPUSCULAR HGB CONC 33.4 % (32.0-36.0); MONO % 8.5 % (0.0-8.0); NEUT % 76.4 % (16.0-70.0); PLATELET COUNT 311 TH/MM3 (150-450); RED BLOOD COUNT 3.71 MIL/MM3 (4.00-5.30); RED CELL DISTRIBUTION WIDTH 17.6 % (11.6-17.2); WHITE BLOOD COUNT 7.4 TH/MM3 (4.0-11.0)
[2016-09-08 04:50] LABS: HEMO FLAGS AUTO DIFF
[2016-09-08 05:01] LABS: BICARBONATE 27.8 MEQ/L (21.0-32.0); POTASSIUM 3.5 MEQ/L (3.5-5.1)
[2016-09-08] MEDS: QUEtiapine FUMARATE 25 MG TAB PO SCH ×3 (06:05→21:18)
[2016-09-08] MEDS: LEVOTHYROXINE SODIUM 200 MCG TAB PO SCH (06:05)
[2016-09-08] MEDS: CEFEPIME INJ 2,000 MG in SODIUM CHLORIDE 0.9% INJ 100 ML IV SCH ×3 (06:07→23:00)
[2016-09-08] MEDS: PROPOFOL 1000 MG/100 ML INJ 100 ML IV SCH ×3 (06:07→21:19)
[2016-09-08 06:59] LABS: BANDS 22 % (0-6); EOSINOPHILS 2 % (0-4); MYELOCYTES 1 % (0-0); NEUTROPHIL # MANUAL DIFF 6.4 TH/MM3 (1.8-7.7); POLYS (SEG NEUTROPHILS) 63 % (16-70); WBC DIFF SAMPLE 100
[2016-09-08 07:01] LABS: PLATELET ESTIMATE SMEAR NORMAL (NORMAL)
[2016-09-08 07:02] LABS: PLATELET MORPHOLOGY NORMAL (NORMAL); SCAN/DIFF FINAL DIFF MANUAL
[2016-09-08] MEDS: RESP: TOBRAMYCIN SULFATE 80 MG/2 ML NEB NEB SCH ×2 (07:37→20:43)
[2016-09-08] MEDS: BENEPROTEIN POWDER 1 PACK G-TUBE SCH ×3 (09:00→17:26)
[2016-09-08] MEDS: HEPARIN SODIUM - SQ 10,000 UNITS/ML VIAL SQ SCH ×2 (09:05→17:25)
[2016-09-08] MEDS: LANSOPRAZOLE SOLUTAB 30 MG TAB NG SCH (09:06)
[2016-09-08] MEDS: POTASSIUM CHLORIDE 20 MEQ CONTROLLED RELEASE TAB PO SCH ×2 (09:06→21:00)
[2016-09-08] MEDS: BUMETANIDE INJ 1 MG/4 ML VIAL IV PUSH SCH ×2 (09:06→17:25)
[2016-09-08] MEDS: ARTIFICIAL TEARS OPTH SOLN 15 ML BTL EACH EYE SCH ×3 (09:07→17:31)
[2016-09-08] MEDS: SODIUM CHLORIDE 0.9% FLUSH 10 ML FLUSH IV FLUSH SCH ×2 (09:08→20:13)
--- NOTE | 2016-09-08 10:24 | RADRPT ---
EXAM DATE/TIME: 09/08/2016 08:45 [facility] COMPARISON: US ABDOMEN - GALLBLADDER, August 29, 2016, 15:21. US ABDOMEN - LIVER, August 15, 2016, 15:45. INDICATIONS : Now has fever, follow up to prior ultrasound. Acute cholecystitis. MEDICAL HISTORY : Hypothyroidism. Hypercholesterolemia. Hypertension. Apnea. SURGICAL HISTORY : Hysterectomy. Tubal ligation. ENCOUNTER: Subsequent ACUITY: 1 week PAIN SCORE: Nonresponsive. LOCATION: Bilateral upper quadrant MEASUREMENTS: LIVER: 19.0 cm length COMMON DUCT: 6 mm RIGHT KIDNEY: 13.9 x 7.0 X 6.7 cm SPLEEN: 11.7 cm length FINDINGS: LIVER: Very heterogeneous and increased echotexture without focal lesion or ductal dilatation. COMMON DUCT: No intraluminal mass or stone visualized. GALLBLADDER: There are multiple stones within the gallbladder. No wall thickening or pericholecystic fluid is pres ent. Sonographic Segundo's sinus negative. Gallbladder is distended measuring 13.7 cm in length. PANCREAS: Not well visualized due to bowel gas. RIGHT KIDNEY: No hydronephrosis, stone or mass. SPLEEN: No focal lesion. CONCLUSION: 1. Cholelithiasis with distended gallbladder. However, there are no associated findings present to di agnose acute cholecystitis. If there is persistent clinical concern for acute cholecystitis could shazia luate for cystic duct obstruction with hepatobiliary scintigraphy. 2. Hepatomegaly with very heterogeneous echotexture and steatosis. Dejan Allison MD on September 08, 2016 at 10:19 Board Certified Radiologist. This report was verified electronically.
--- NOTE | 2016-09-08 15:40 | HHI.IDPN ---
Subjective Subjective Remarks Ms. Clayton is a 56 year old female with past medical history of Morbid Obesity , hypothyroidism, obstructive sleep apnea, and high cholesterol. Patient reportedly is on oxygen at home 2L, and was supposed to be using BiPAP at night for JOE but was reportedly non compliant. Patient presented to [facility] emergency department with family on 08/14/16 for evaluation of respiratory distress. Review of notes indicate the patient had reported being sick for one week prior to presentation with progressively worsening symptoms including fever , chills, shortness of breath, cough, chest pain with coughing, increase confusion and fatigue. Initial evaluation in the ED revealed temp of 100.6 F, HR 106, RR 36, BP 178/103, O2 Sats 100% FiO2. Her WBC was 13.6, Plts 423, Cr 0.77. LFTs were elevated total bilirubin 0.4, AST 77, ALT 72, Alk phos 143. Patient had sepsis workup initiated. UA was negative CXR with bilateral infiltrated. Patient is admitted to ICU with respiratory failure, CHF, pneumonia, probable underlying COPD. Patient was intubated and placed on mechanical ventilation. Pulmonology, Dr. Beck was consulted for respiratory failure/sleep apnea and continues to follow. 08/15/16 CTA showed no evidence of pulmonary embolism, multifocal consolidation greatest right lower lobe. Hospital course has been complicated by continued high oxygen ventilator needs, ARDS and inability to wean from vent. Patient was started on Zosyn IV and Tobramycin pharmacy consult placed by Gemologist. ID consulted for fever in patient being treated for PSAE Pneumonia. Fevers defervescing. Rash better. No diarrhea Not much secretions. small, mcpherson mostly oral. UO ok remains on vent. Antibiotics Cefepime IV tobramycin nebs Lines Line sites with no e.o infection Past Medical History reviewed. Allergies: Coded Allergies: No Known Allergies (Verified , 08/14/16) Objective . Vital Signs Date Time Temp Pulse Resp B/P Pulse Ox O2 Delivery O2 Flow Rate FiO2 09/08/16 12:48 95 45 09/08/16 10:43 93 40 09/08/16 10:17 18 09/08/16 07:40 95 40 09/08/16 06:00 111 09/08/16 04:05 95 50 09/08/16 04:00 50 09/08/16 04:00 99.6 109 28 103/50 95 4/14/17 04:00 109 09/08/16 02:00 101 09/08/16 01:06 94 50 09/08/16 00:00 50 09/08/16 00:00 96 09/08/16 00:00 99.8 96 24 95/54 94 09/07/16 22:05 93 50 09/07/16 22:00 91 09/07/16 20:00 50 09/07/16 20:00 100.0 101 25 97/49 94 09/07/16 20:00 101 09/07/16 19:15 95 50 09/07/16 18:00 101 09/07/16 16:00 70 09/07/16 16:00 104 09/07/16 16:00 99.5 104 26 99/53 93 09/07/16 15:41 94 50 09/07/16 09/07/16 09/08/16 15:00 23:00 07:00 Intake Total 902 ml 745 ml 455 ml Output Total 550 ml 1350 ml 350 ml Balance 352 ml -605 ml 105 ml IV Total 516 ml 552 ml 180 ml Tube Feeding 136 ml 133 ml 215 ml Tube Irrigant 60 ml 60 ml Other 250 ml Output Urine Total 550 ml 1350 ml 350 ml # Bowel Movements 0 0 . Laboratory Tests Test 09/07/16 09/08/16 05:00 04:20 White Blood Count 9.0 TH/MM3 7.4 TH/MM3 Red Blood Count 3.61 MIL/MM3 3.71 MIL/MM3 Hemoglobin 10.2 GM/DL 10.6 GM/DL Hematocrit 30.8 % 31.7 % Mean Corpuscular Volume 85.4 FL 85.4 FL Mean Corpuscular Hemoglobin 28.3 PG 28.5 PG Mean Corpuscular Hemoglobin 33.2 % 33.4 % Concent Red Cell Distribution Width 17.3 % 17.6 % Platelet Count 270 TH/MM3 311 TH/MM3 Mean Platelet Volume 8.6 FL 8.5 FL Neutrophils (%) (Auto) 85.2 % 76.4 % Lymphocytes (%) (Auto) 6.2 % 12.4 % Monocytes (%) (Auto) 6.4 % 8.5 % Eosinophils (%) (Auto) 1.6 % 2.2 % Basophils (%) (Auto) 0.6 % 0.5 % Neutrophils # (Auto) 7.7 TH/MM3 5.7 TH/MM3 Lymphocytes # (Auto) 0.6 TH/MM3 0.9 TH/MM3 Monocytes # (Auto) 0.6 TH/MM3 0.6 TH/MM3 Eosinophils # (Auto) 0.1 TH/MM3 0.2 TH/MM3 Basophils # (Auto) 0.1 TH/MM3 0.0 TH/MM3 CBC Comment AUTO DIFF AUTO DIFF Differential Total Cells 100 100 Counted Neutrophils % (Manual) 75 % 63 % Band Neutrophils % 9 % 22 % Lymphocytes % 9 % 10 % Monocytes % 4 % 2 % Eosinophils % 2 % 2 % Neutrophils # (Manual) 7.7 TH/MM3 6.4 TH/MM3 Metamyelocytes 1 % Differential Comment FINAL DIFF FINAL DIFF MANUAL MANUAL Platelet Estimate NORMAL NORMAL Platelet Morphology Comment NORMAL NORMAL Myelocytes 1 % Stomatocytes Laboratory Tests Test 09/07/16 09/08/16 05:00 04:20 Sodium Level 137 MEQ/L 139 MEQ/L Potassium Level 3.6 MEQ/L 3.5 MEQ/L Chloride Level 102 MEQ/L 101 MEQ/L Carbon Dioxide Level 26.5 MEQ/L 27.8 MEQ/L Anion Gap 9 MEQ/L 10 MEQ/L Blood Urea Nitrogen 10 MG/DL 14 MG/DL Creatinine 0.44 MG/DL 0.58 MG/DL Estimat Glomerular Filtration 148 ML/MIN 108 ML/MIN Rate Random Glucose 127 MG/DL 127 MG/DL Calcium Level 8.3 MG/DL 8.3 MG/DL Magnesium Level 2.3 MG/DL Total Bilirubin 0.6 MG/DL Aspartate Amino Transf 23 U/L (AST/SGOT) Alanine Aminotransferase 28 U/L (ALT/SGPT) Alkaline Phosphatase 147 U/L Total Protein 6.1 GM/DL Albumin 1.5 GM/DL Microbiology Date/Time Procedure Status Source Growth 09/07/16 13:30 Gram Stain - Final Resulted Sputum Endotracheal 09/07/16 13:30 Sputum Culture - Preliminary Resulted Pseudomonas Species 09/07/16 13:30 Urine Culture - Preliminary Resulted Urine Catheterized Urine Yeast-Id To Follow 09/07/16 14:23 Aerobic Blood Culture - Preliminary Resulted Blood Peripheral NO GROWTH IN 1 DAY 09/07/16 14:23 Anaerobic Blood Culture - Preliminary Resulted Blood Peripheral NO GROWTH IN 1 DAY 09/07/16 18:00 Aerobic Blood Culture - Preliminary Resulted Blood Peripheral NO GROWTH IN 1 DAY 09/07/16 18:00 Anaerobic Blood Culture - Preliminary Resulted Blood Peripheral NO GROWTH IN 1 DAY Imaging Last Impressions Liver Ultrasound 09/08/16 0000 Signed Impressions: Service Date/Time: Thursday, September 08, 2016 08:45 - CONCLUSION: 1. Cholelithiasis with distended gallbladder. However, there are no associated findings present to diagnose acute cholecystitis. If there is persistent clinical concern for acute cholecystitis could evaluate for cystic duct obstruction with hepatobiliary scintigraphy. 2. Hepatomegaly with very heterogeneous echotexture and steatosis. Dejan Allison MD Chest X-Ray 09/06/16 0000 Signed Impressions: Service Date/Time: Tuesday, September 06, 2016 11:09 - CONCLUSION: No significant change has occurred. Terry Estrada MD Gall Bladder Ultrasound 08/29/16 0000 Signed Impressions: Service Date/Time: Monday, August 29, 2016 15:21 - CONCLUSION: 1. Hepatomegaly with heterogeneous echotexture throughout the liver. 2. There is a large echogenic area near the neck of the gallbladder suggestive of a stone, but despite its large size, demonstrates no acoustic shadowing in any of the views. Taco Davidson MD CT Angiography 08/15/16 0000 Signed Impressions: Service Date/Time: Monday, August 15, 2016 02:33 - CONCLUSION: 1. No evidence for pulmonary embolism. 2. Multifocal consolidation greatest in the right lower lobe and associated adenopathy. Terry Estrada MD Physical Exam GENERAL: Morbidly obese CF patient, in no apparent distress. SKIN: Fine macular rash on chest, abdomen, back fading today. Skin folds with erythema noted. HEAD: Atraumatic. Normocephalic. No temporal or scalp tenderness. EYES: Pupils equal round and reactive. Extraocular motions intact. No scleral icterus. No injection or drainage. ENT: Intubated. NECK: Large neck. Intubated. Supple, nontender, no meningeal signs. CARDIOVASCULAR: RRR. RESPIRATORY: Clear to auscultation. Breath sounds equal bilaterally. GASTROINTESTINAL: Abdomen soft, non-tender, nondistended. MUSCULOSKELETAL: Extremities without clubbing, cyanosis. Edema. NEUROLOGICAL: Sedated. IV line sites with no e.o infection. Miller in place with clear urine. Assessment & Plan Remarks Sepsis present on admission. Now with SIRS/Sepsis new. New Rash: ? cause for SIRS. Drug induced: Zosyn IV most likely. Reviewed JUL. PSA pneumonia: pansensitive. R/o HCAP/VAP. Morbid Obesity (BMI 45.8 kg/m2) Obstructive Sleep Apnea (supposed to be on CPAP at home and home oxygen 2L) Acute respiratory failure vent dependent. Acute metabolic encephalopathy: infection, meds. Recs: Continue Cefepime IV Continue Tobramycin nebs. Depending on clinical progression, if clinically stable if infiltrates not improving consider bronchoscopy (diagnostic and therapeutic) Follow cultures Follow clinically. d/w RN to cover for me this weekend. Terri Uribe MD Sep 08, 2016 15:40
[2016-09-08] MEDS: PRAVASTATIN SOD 20 MG TAB PO SCH (21:18)
[2016-09-08] MEDS: POTASSIUM CHLOR 20 MEQ PREMIX 100 ML IV PRN (21:18)
[2016-09-09] VITALS (19 sets, daily range): BP systolic 96–118; BP diastolic 52–74; PULSE 86–117; RESP 19–27; TEMP 98.3–99.7; O2SAT 91–99
[2016-09-09] MEDS: HEPARIN SODIUM - SQ 10,000 UNITS/ML VIAL SQ SCH ×4 (00:32→23:33)
[2016-09-09] MEDS: RESP: ALBUTEROL 2.5 MG/IPRATROPIUM 0.5 MG NEB (SCH) INH ×5 (03:10→23:10)
[2016-09-09 03:17] LABS: BACTERIA, URINE FEW /hpf; BLOOD, URINE MOD (NEG); GLUCOSE,URINE NEG (NEG); KETONE, URINE NEG (NEG); MUCUS URINE FEW /lpf (OCC); NITRITE,URINE NEG (NEG); PH, URINE 5.5 (5.0-8.5); SQUAMOUS EPITHELIAL CELL URINE 5 /hpf (0-5); URINE COLOR YELLOW (YELLW/STRAW)
[2016-09-09 03:18] LABS: COMMENT (UR) CATH-CULTURE IND; CULTURE IF INDICATED CATH CULTURE IND
[2016-09-09] MEDS: oxyCODONE HCL ORAL CONC 20 MG/ML SYRINGE PO SCH ×6 (03:46→20:51)
[2016-09-09] MEDS: PROPOFOL 1000 MG/100 ML INJ 100 ML IV SCH ×4 (03:47→18:48)
[2016-09-09] MEDS: CHLORHEXIDINE GLUCONATE 2 % 1 PACK (2 CLOTHS) TOP SCH (03:47)
[2016-09-09] MEDS: INSULIN NovoLIN REGULAR SUPPLEMENTAL SCALE SQ SCH ×4 (04:00→22:00)
[2016-09-09] MEDS: fentaNYL DRIP 250 ML IV SCH (05:00)
[2016-09-09 05:09] LABS: HEMATOCRIT 32.2 % (35.0-46.0); MEAN CELL VOLUME 84.7 FL (80.0-100.0); MEAN CORPUSCULAR HEMOGLOBIN 27.8 PG (27.0-34.0); MEAN CORPUSCULAR HGB CONC 32.8 % (32.0-36.0); PLATELET COUNT 318 TH/MM3 (150-450); RED CELL DISTRIBUTION WIDTH 17.3 % (11.6-17.2); REVIEW FLAG FINAL; WHITE BLOOD COUNT 5.8 TH/MM3 (4.0-11.0)
[2016-09-09 05:32] LABS: BICARBONATE 30.2 MEQ/L (21.0-32.0)
[2016-09-09] MEDS: QUEtiapine FUMARATE 25 MG TAB PO SCH ×3 (06:23→23:34)
[2016-09-09] MEDS: CEFEPIME INJ 2,000 MG in SODIUM CHLORIDE 0.9% INJ 100 ML IV SCH ×3 (06:23→23:33)
[2016-09-09] MEDS: ACETAMINOPHEN 325 MG TAB PO PRN (06:23)
[2016-09-09] MEDS: LEVOTHYROXINE SODIUM 200 MCG TAB PO SCH (06:23)
[2016-09-09] MEDS: POTASSIUM CHLOR 40 MEQ PREMIX 100 ML IV PRN ×2 (06:49→12:09)
[2016-09-09] MEDS: BUMETANIDE INJ 1 MG/4 ML VIAL IV PUSH SCH ×2 (08:05→18:45)
[2016-09-09] MEDS: SODIUM CHLORIDE 0.9% FLUSH 10 ML FLUSH IV FLUSH SCH ×2 (08:06→20:50)
[2016-09-09] MEDS: ARTIFICIAL TEARS OPTH SOLN 15 ML BTL EACH EYE SCH ×3 (08:06→18:46)
[2016-09-09] MEDS: POTASSIUM CHLORIDE 20 MEQ CONTROLLED RELEASE TAB PO SCH (08:06)
[2016-09-09] MEDS: LANSOPRAZOLE SOLUTAB 30 MG TAB NG SCH (08:06)
[2016-09-09] MEDS: BENEPROTEIN POWDER 1 PACK G-TUBE SCH ×3 (08:19→18:46)
--- NOTE | 2016-09-09 11:02 | HHI.CCPN ---
Subjective Remarks/Hospital Course 56-year-old morbidly obese female brought in the emergency department in respiratory distress. She was intubated by ER attending. She has been sick for about a week with symptoms consistent with UTI. She's had fevers and chills. She's been short of breath. She's had fatigue. She has had a cough and chest pain with coughing. The family reports that she's been delirious for the last 3 days. 08/15 Patient is sedated with Diprivan, Versed, Fentanyl and intubated. CTA chest showed no PE multifocal consolidation greatest in RLL. Tmax 100.6 08/16 Patient is sedated with Diprivan and Fentanyl. Afebrile. CXR this morning showed increase consolidation. 08/17 Patient remains sedated and intubated. T:100.4 On PRVC/AC RR 18, Tv 500, IT :1.0 PEEP:10, FIO2 75% 08/18 Remains sedated and intubated. Afebrile. CXR this morning unchanged bibasilar infiltrates and effusions. 08/19 Patient was placed on rotoprone bed last night for proning sedated with Diprivan, Versed and Fentnayl in addition she is on Nimbex. On PRVC/AC RR 20, TV 400, IT:1.1, PEEP:14 and FIO2 80%. Afebrile. 08/20 Patient remains sedated and intubated. Remains on PRVC/AC mode with improvements in her oxygenation on FIO2 50% from 80% yesterday and PEEP:12. 08/21 Patient remains sedated and intubated. On PRVC/AC mode with RR 20, TV 400, IT:1.1, PEEP: 12 and FIO2 50%. Afebrile. 08/22 No acute events overnight. Remains sedated, intubated and on Nimbex.. T: 99.8. On PRVC mode with PEP: 12, FIO2 50%. CXR from yesterday showed better aeration, RLL infiltrate unchanged. 08/23 Chest x-ray worsening. Methylprednisolone taper to twice a day by pulmonary. The patient's FiO2 was found to be 100% this a.m., will continue to wean. 08/24: 1 desat episode yesterday when supine. still remains prone now. no vasopressors. sedated and paralyzed. 08/25: flolan added yesterday. fio2 down to 60%. remained supine all night. still on neuromuscular blockade. net -500cc/24h. 08/26: good diuresis. remained supine. fio2 70%. weaning flolan. remains with significant respiratory support and high peep despite 6L diuresis overnight. Cr still stable. 08/27: continues with good diuresis. net negative 3L/24h. fio2 down to 55%. flolan off. still high peep. not ready for SBT. more agitated today. Cr remains stable despite aggressive diuresis. 08/28: diuresis continues. -3.3L/24h. spiked fever overnight with a jump in wbc to 16 this AM. fio2 60%, but her pulmonary improvements have plateaued at this point. still on peep 12. 08/29: net -1.7L/24h. Cr starting to rise. still spiking fevers despite vanc/ cefepime added yesterday. wbc continues to rise. clinically appears infected, although unclear source. peep 10, fio2 60%. will likely need trach. 08/30: net +800cc, but Cr downtrending. appears clinically euvolemic. fever curve downtrending. wbc downtrending. on 40% fio2, peep 8 today. still following commands. 08/31: failed SBT after only 45 minutes yesterday. intubated for > 2 weeks at this point. will attempt to pursue trach/peg today. will continue with pulmonary strengthening. daily SBTs. 09/01 CXR showing increasing bibasilar infiltrate. Failed C Pap trial in 5 minutes due to severe tachypnea. PEG tube today. Family has not decided on trach yet 09/02: Patient febrile to 101.1, CXR increased infiltrate left upper lung and right lower lobe. Pancultured. Cefepime added today and one dose of vancomycin. Continues to fail C Pap trial due to tachypnea and respiratory distress 09/03: Remains hypoxemic on 75% oxygen with new pneumonia. Sputum culture 09/02/16 with GNR. Family agreeable for tracheostomy but patient is not stable at this point for trach 09/04: still on 70% fio2. still hypoxic. pneumonia persists. needs trach, but too unstable at this point. 09/05: remains on 75% fio2. pseudomonas sensitivities came back resistant to carbapenems, intermediate to levaquin. still spiking fevers. not clinically improving. wbc remains elevated. 09/06: Remains on 12 of PEEP and FiO2 75%. Zosyn and tobramycin started yesterday. WBC count trending down today 11.5 from 13.1. Remains heavily sedated for ventilator synchrony. MAXIMUM TEMPERATURE 100.3 09/07: Continues to spike fever. CXR unchanged. WBC count improving. PEEP 14. FiO2 60%. Will start IV Bumex 1mg IV q12 Subjective 09/09: Tolerating tube feeds at goal. Afebrile. No documented bowel movement. Currently sedated on the ventilator Objective Vital Signs Date Time Temp Pulse Resp B/P Pulse Ox O2 Delivery O2 Flow Rate FiO2 09/09/16 09:15 98 40 09/09/16 06:00 96 09/09/16 04:00 99.7 27 114/57 Intake and Output 09/08/16 09/08/16 09/09/16 08:00 16:00 00:00 Intake Total 455 ml 662 ml 628 ml Output Total 350 ml 750 ml 1550 ml Balance 105 ml -88 ml -922 ml Result Diagram: 09/09/16 0440 09/09/16 0440 Other Results Microbiology Date/Time Procedure Status Source Growth 09/09/16 01:48 Urine Culture Received Urine Catheterized Urine Pending 09/07/16 18:00 Aerobic Blood Culture - Preliminary Resulted Blood Peripheral NO GROWTH IN 1 DAY 09/07/16 18:00 Anaerobic Blood Culture - Preliminary Resulted Blood Peripheral NO GROWTH IN 1 DAY 09/07/16 13:30 Urine Culture - Preliminary Resulted Urine Catheterized Urine Yeast-Id To Follow 09/07/16 13:30 Gram Stain - Final Resulted Sputum Endotracheal 09/07/16 13:30 Sputum Culture - Preliminary Resulted Pseudomonas Species Imaging Last Impressions Liver Ultrasound 09/08/16 0000 Signed Impressions: Service Date/Time: Thursday, September 08, 2016 08:45 - CONCLUSION: 1. Cholelithiasis with distended gallbladder. However, there are no associated findings present to diagnose acute cholecystitis. If there is persistent clinical concern for acute cholecystitis could evaluate for cystic duct obstruction with hepatobiliary scintigraphy. 2. Hepatomegaly with very heterogeneous echotexture and steatosis. Dejan Allison MD Chest X-Ray 09/06/16 0000 Signed Impressions: Service Date/Time: Tuesday, September 06, 2016 11:09 - CONCLUSION: No significant change has occurred. Terry Estrada MD Gall Bladder Ultrasound 08/29/16 0000 Signed Impressions: Service Date/Time: Monday, August 29, 2016 15:21 - CONCLUSION: 1. Hepatomegaly with heterogeneous echotexture throughout the liver. 2. There is a large echogenic area near the neck of the gallbladder suggestive of a stone, but despite its large size, demonstrates no acoustic shadowing in any of the views. Taco Davidson MD CT Angiography 08/15/16 0000 Signed Impressions: Service Date/Time: Monday, August 15, 2016 02:33 - CONCLUSION: 1. No evidence for pulmonary embolism. 2. Multifocal consolidation greatest in the right lower lobe and associated adenopathy. Terry Estrada MD Objective Remarks GENERAL: 56 yo female, critically ill currently orotracheally intubated SKIN: Warm and dry. Positive rash resolving HEAD: Normocephalic. EYES: No scleral icterus. No injection or drainage. NECK: trachea midline. Neck is obese. CARDIOVASCULAR: RR. S1, S2 no S4 murmur RESPIRATORY: Breath sounds equal bilaterally. Tachypneic on the ventilator. Few basilar crackles. On 14 PEEP, 60% FiO2 GASTROINTESTINAL: Abdomen obese, soft, non-tender, I Colbert bowel sounds MUSCULOSKELETAL: Trace lower extremity edema Neuro: RASS -2. follows commands very weakly on sedation hold. Currently sedated with propofol and fentanyl A/P Problem List: (1) CHF (congestive heart failure) ICD Code: I50.9 Status: Acute (2) Respiratory failure ICD Code: J96.90 Status: Acute (3) Pneumonia ICD Code: J18.9 Status: Acute (4) ARDS (adult respiratory distress syndrome) ICD Code: J80 Status: Acute Assessment and Plan PLAN: Neuro/Psych: Acute toxic metabolic encephalopathy Agitated delirium Fentanyl at 90 g an hour, propofol at 15 mics as per kilogram per minute for sedation/analgesia while intubated. Goal RASS -2. Holding Daily sedation vacation due to hypoxia. continue Seroquel 50mg po q8h for delirium and oxycodone 10mg po q4h femi for pain. EEG ordered today. No CT since admission Pulm: Acute hypercapnic and hypoxemic respiratory failure ARDS Pneumonia community-acquired, now with HCAP with carbapenem-resistant pseudomonas Likely JOE On PRVC/AC RR 16, TV 550, PEEP 10, IT: 1.1 and FIO2 0.40. Decrease FIO2 as tiki. for goal spo2 > 88% Bronchodilator therapy every 4 hours and as needed ICU vent bundle. Pulm is following- Dr. Beck Vent day 25, family agreeable for trach -currently not stable resp thompson for trach. Gen surgery on board CV: Hypertension Dyslipidemia Elevated troponin - likely strain Monitor HR and BP keep MAP>65mmg Echo 08/14 showed EF 65-70% mild AR/TR Home medications HCTZ 12.5 mill grams daily currently on hold while on Bumex. Resume when clinically indicated Home medication lovastatin 20 mg by mouth daily switch to Pravachol 20 mg a night. : Maintain Miller while on diuretics and exchange with funguria Monitor renal function, I/O's GI: Elevated transaminases Cholelithiasis Monitor LFT's ( trending down), on Protonix 40mg daily for GI prophylaxis US liver: Fatty liver and cholelithiasis. Repeat 09/08 revealed cholelithiasis with no acute signs of cholecystitis. Recommend a HIDA scan if indicated On TF Glucerna 1.5 @ 45ml/hr with 2 packets of been a protein 3 times a day minimal residual, restart after PEG. s/p PEG placement 09/01/[address] Ritter Prevacid 30 mg daily for GI prophylaxis Colace/Senokot for bowel regimen. Lactulose daily added ID: Pseudomonas pneumonia Funguria Pertinent cultures blood and sputum cx 08/15- NG strep pneumonia and Legionella urinary Ag negative Blood cultures 08/28: NGTD C Diff negative 08/28. Lines changed 08/28. Sputum 08/30 - Pseudomonas Sputum 09/02 PSAE, resistant to carbapenem, intermediate to Levaquin. 09/07 - urine - yeast 09/07 - blood cultures 2 - no growth 09/09 - urine - pending - Dcd cefepime/Levaquin on 09/05. started on Zosyn 4.5gm iv q6h and tobramycin 7 mg/kg/day. Zosyn discontinued secondary to rash Currently on cefepime and tobramycin aerosols per infectious disease - Consult ID today due to recurrent fever. Add vancomycin. Coelho culture Heme: Normocytic anemia Monitor CBC No indication for transfusion of blood product at this time Endo: Diabetes mellitus Hypothyroidism on SSI ( medium scale) for glycemic control On Synthroid 200mcg daily. TSH 1.37 FEN: Hypokalemia ICU electrolyte protocol initiated. 40 mEq IV potassium is 1. Recheck at 1800 along with magnesium KCl 20 mEq scheduled daily GI prophylaxis- Prevacid per tube. DVT prophylaxis Heparin SQ, SCDs Lines: - Left SC TLC 08/28 - Miller - PEG 09/01/16 Not stable for trach at this time. Critical Care: The total critical care time was 35 minutes. Time to perform other separately billable procedures was not included in the critical care time. Problem Qualifiers (1) CHF (congestive heart failure): Qualified Code: I50.9 - Acute congestive heart failure, unspecified congestive heart failure type (2) Respiratory failure: Qualified Code: J96.02 - Acute respiratory failure with hypercapnia (3) Pneumonia: Qualified Code: J18.9 - Pneumonia of both lungs due to infectious organism, unspecified part of lung Fadi Villa MD Sep 09, 2016 11:02
[2016-09-09] MEDS ORDERED: POTASSIUM CHLOR 40 MEQ PREMIX 100 ML IV ONE (11:15)
[2016-09-09] MEDS ORDERED: LACTULOSE SYRUP 20 GM/30 ML CUP PO ONE (11:15)
[2016-09-09] MEDS: RESP: TOBRAMYCIN SULFATE 80 MG/2 ML NEB NEB SCH ×2 (11:44→20:16)
[2016-09-09] MEDS: SENNOSIDES SYRUP 8.8 MG/5 ML CUP PO SCH (20:50)
[2016-09-09] MEDS: PRAVASTATIN SOD 20 MG TAB PO SCH (20:50)
[2016-09-09] MEDS: DOCUSATE SODIUM 100 MG CAP PO SCH (20:50)
[2016-09-09 22:30] LABS: POTASSIUM 4.3 MEQ/L (3.5-5.1)
[2016-09-10] VITALS (18 sets, daily range): BP systolic 104–112; BP diastolic 53–64; PULSE 97–109; RESP 20–23; TEMP 99.2–102.6; O2SAT 90–99
[2016-09-10] MEDS: PROPOFOL 1000 MG/100 ML INJ 100 ML IV SCH ×5 (00:24→23:13)
[2016-09-10] MEDS: oxyCODONE HCL ORAL CONC 20 MG/ML SYRINGE PO SCH ×6 (00:26→20:53)
[2016-09-10] MEDS: fentaNYL DRIP 250 ML IV SCH (00:37)
[2016-09-10] MEDS: RESP: ALBUTEROL 2.5 MG/IPRATROPIUM 0.5 MG NEB (SCH) INH ×6 (03:07→23:39)
[2016-09-10] MEDS: CHLORHEXIDINE GLUCONATE 2 % 1 PACK (2 CLOTHS) TOP SCH (04:00)
[2016-09-10] MEDS: INSULIN NovoLIN REGULAR SUPPLEMENTAL SCALE SQ SCH ×4 (04:00→22:00)
[2016-09-10 05:30] LABS: AUTOMATED NEUTROPHIL # 4.3 TH/MM3 (1.8-7.7); BASOPHIL # 0.1 TH/MM3 (0-0.2); BASOPHIL % 0.9 % (0.0-2.0); EOSINOPHIL # 0.2 TH/MM3 (0-0.4); EOSINOPHIL % 3.6 % (0.0-4.0); LYMPH % 15.9 % (9.0-44.0); MEAN CELL VOLUME 84.7 FL (80.0-100.0); MEAN CORPUSCULAR HEMOGLOBIN 28.2 PG (27.0-34.0); MEAN CORPUSCULAR HGB CONC 33.3 % (32.0-36.0); NEUT % 71.6 % (16.0-70.0); PLATELET COUNT 315 TH/MM3 (150-450); RED BLOOD COUNT 3.66 MIL/MM3 (4.00-5.30); RED CELL DISTRIBUTION WIDTH 17.4 % (11.6-17.2)
[2016-09-10] MEDS: QUEtiapine FUMARATE 25 MG TAB PO SCH ×3 (05:38→20:54)
[2016-09-10] MEDS: CEFEPIME INJ 2,000 MG in SODIUM CHLORIDE 0.9% INJ 100 ML IV SCH ×3 (05:39→23:13)
[2016-09-10] MEDS: LEVOTHYROXINE SODIUM 200 MCG TAB PO SCH (05:39)
[2016-09-10 05:40] LABS: HEMO FLAGS AUTO DIFF
--- NOTE | 2016-09-10 05:44 | MG ---
cc: EDUARDO SARKAR MD Sex: F DATE OF STUDY: 09/09/2016 [id number] DATE OF : 1960 HISTORY: 56-year-old with history of confusion, respiratory distress, 1-3 Hz delta activity 10 to 15 microvolts alternating with 4-5 Hz theta activity in a generalized fashion. No significant driving with photic stimulation. Single lead EKG showing sinus rhythm with occasional artifact. INTERPRETATION Moderate to severe encephalopathy, no epileptic activity. Clinical correlation. Eduardo Sarkar MD MG/JORGE /11:45 PM /5:12 AM
[2016-09-10 05:48] LABS: ANION GAP 7 MEQ/L (5-15); AST (GOT) 36 U/L (15-37); BICARBONATE 32.1 MEQ/L (21.0-32.0); BLOOD UREA NITROGEN 22 MG/DL (7-18); CHLORIDE 98 MEQ/L (98-107); GLOMERULAR FILTRATION RATE 104 ML/MIN (>89); SODIUM (NA) 137 MEQ/L (136-145)
[2016-09-10 05:52] LABS: ALKALINE PHOSPHATASE 132 U/L (45-117); ALT (GPT) 32 U/L (10-53); TOTAL BILIRUBIN ADULT 0.4 MG/DL (0.2-1.0)
[2016-09-10 06:03] LABS: CREATINE KINASE 14 U/L (26-192)
--- NOTE | 2016-09-10 07:31 | HHI.CCPN ---
Subjective Remarks/Hospital Course *LATE ENTRY NOTE FOR 09/08/16* 56-year-old morbidly obese female brought in the emergency department in respiratory distress. She was intubated by ER attending. She has been sick for about a week with symptoms consistent with UTI. She's had fevers and chills. She's been short of breath. She's had fatigue. She has had a cough and chest pain with coughing. The family reports that she's been delirious for the last 3 days. 08/15 Patient is sedated with Diprivan, Versed, Fentanyl and intubated. CTA chest showed no PE multifocal consolidation greatest in RLL. Tmax 100.6 08/16 Patient is sedated with Diprivan and Fentanyl. Afebrile. CXR this morning showed increase consolidation. 08/17 Patient remains sedated and intubated. T:100.4 On PRVC/AC RR 18, Tv 500, IT :1.0 PEEP:10, FIO2 75% 08/18 Remains sedated and intubated. Afebrile. CXR this morning unchanged bibasilar infiltrates and effusions. 08/19 Patient was placed on rotoprone bed last night for proning sedated with Diprivan, Versed and Fentnayl in addition she is on Nimbex. On PRVC/AC RR 20, TV 400, IT:1.1, PEEP:14 and FIO2 80%. Afebrile. 08/20 Patient remains sedated and intubated. Remains on PRVC/AC mode with improvements in her oxygenation on FIO2 50% from 80% yesterday and PEEP:12. 08/21 Patient remains sedated and intubated. On PRVC/AC mode with RR 20, TV 400, IT:1.1, PEEP: 12 and FIO2 50%. Afebrile. 08/22 No acute events overnight. Remains sedated, intubated and on Nimbex.. T: 99.8. On PRVC mode with PEP: 12, FIO2 50%. CXR from yesterday showed better aeration, RLL infiltrate unchanged. 08/23 Chest x-ray worsening. Methylprednisolone taper to twice a day by pulmonary. The patient's FiO2 was found to be 100% this a.m., will continue to wean. 08/24: 1 desat episode yesterday when supine. still remains prone now. no vasopressors. sedated and paralyzed. 08/25: flolan added yesterday. fio2 down to 60%. remained supine all night. still on neuromuscular blockade. net -500cc/24h. 08/26: good diuresis. remained supine. fio2 70%. weaning flolan. remains with significant respiratory support and high peep despite 6L diuresis overnight. Cr still stable. 08/27: continues with good diuresis. net negative 3L/24h. fio2 down to 55%. flolan off. still high peep. not ready for SBT. more agitated today. Cr remains stable despite aggressive diuresis. 08/28: diuresis continues. -3.3L/24h. spiked fever overnight with a jump in wbc to 16 this AM. fio2 60%, but her pulmonary improvements have plateaued at this point. still on peep 12. 08/29: net -1.7L/24h. Cr starting to rise. still spiking fevers despite vanc/ cefepime added yesterday. wbc continues to rise. clinically appears infected, although unclear source. peep 10, fio2 60%. will likely need trach. 08/30: net +800cc, but Cr downtrending. appears clinically euvolemic. fever curve downtrending. wbc downtrending. on 40% fio2, peep 8 today. still following commands. 08/31: failed SBT after only 45 minutes yesterday. intubated for > 2 weeks at this point. will attempt to pursue trach/peg today. will continue with pulmonary strengthening. daily SBTs. 09/01 CXR showing increasing bibasilar infiltrate. Failed C Pap trial in 5 minutes due to severe tachypnea. PEG tube today. Family has not decided on trach yet 09/02: Patient febrile to 101.1, CXR increased infiltrate left upper lung and right lower lobe. Pancultured. Cefepime added today and one dose of vancomycin. Continues to fail C Pap trial due to tachypnea and respiratory distress 09/03: Remains hypoxemic on 75% oxygen with new pneumonia. Sputum culture 09/02/16 with GNR. Family agreeable for tracheostomy but patient is not stable at this point for trach 09/04: still on 70% fio2. still hypoxic. pneumonia persists. needs trach, but too unstable at this point. 09/05: remains on 75% fio2. pseudomonas sensitivities came back resistant to carbapenems, intermediate to levaquin. still spiking fevers. not clinically improving. wbc remains elevated. 09/06: Remains on 12 of PEEP and FiO2 75%. Zosyn and tobramycin started yesterday. WBC count trending down today 11.5 from 13.1. Remains heavily sedated for ventilator synchrony. MAXIMUM TEMPERATURE 100.3 09/07: Continues to spike fever. CXR unchanged. WBC count improving. PEEP 14. FiO2 60%. Will start IV Bumex 1mg IV q12 Subjective *LATE ENTRY NOTE FOR 09/08/16* 09/08: Fever trending down. Fio2 reduced to 40%, stile heavily sedated. WBC Count improving. Plan for trach when PEEP improves. UO excellent on Bumex Objective Vital Signs Date Time Temp Pulse Resp B/P Pulse Ox O2 Delivery O2 Flow Rate FiO2 09/10/16 04:15 90 40 09/10/16 04:00 98 09/10/16 00:00 99.2 23 112/60 Intake and Output 09/09/16 09/09/16 09/10/16 08:00 16:00 00:00 Intake Total 611 ml 906 ml 928 ml Output Total 500 ml 1150 ml 750 ml Balance 111 ml -244 ml 178 ml Result Diagram: 09/10/16 0500 09/10/16 0500 Other Results Microbiology Date/Time Procedure Status Source Growth 09/07/16 13:30 Urine Culture - Final Complete Urine Catheterized Urine Maribell Guilliermondii Imaging Last Impressions Liver Ultrasound 09/08/16 0000 Signed Impressions: Service Date/Time: Thursday, September 08, 2016 08:45 - CONCLUSION: 1. Cholelithiasis with distended gallbladder. However, there are no associated findings present to diagnose acute cholecystitis. If there is persistent clinical concern for acute cholecystitis could evaluate for cystic duct obstruction with hepatobiliary scintigraphy. 2. Hepatomegaly with very heterogeneous echotexture and steatosis. Dejan Allison MD Chest X-Ray 09/06/16 0000 Signed Impressions: Service Date/Time: Tuesday, September 06, 2016 11:09 - CONCLUSION: No significant change has occurred. Terry Estrada MD Gall Bladder Ultrasound 08/29/16 0000 Signed Impressions: Service Date/Time: Monday, August 29, 2016 15:21 - CONCLUSION: 1. Hepatomegaly with heterogeneous echotexture throughout the liver. 2. There is a large echogenic area near the neck of the gallbladder suggestive of a stone, but despite its large size, demonstrates no acoustic shadowing in any of the views. Taco Davidson MD CT Angiography 08/15/16 0000 Signed Impressions: Service Date/Time: Monday, August 15, 2016 02:33 - CONCLUSION: 1. No evidence for pulmonary embolism. 2. Multifocal consolidation greatest in the right lower lobe and associated adenopathy. Terry Estrada MD Objective Remarks GENERAL: 56 yo female, critically ill currently orotracheally intubated SKIN: Warm and dry. Rash resolving, ? drug rash HEAD: Normocephalic. EYES: No scleral icterus. No injection or drainage. NECK: trachea midline. Neck is obese. CARDIOVASCULAR: RR. S1, S2 no S4 murmur RESPIRATORY: Breath sounds equal bilaterally. Tachypneic on the ventilator. Few basilar crackles. 40-45% FiO2 GASTROINTESTINAL: Abdomen obese, soft, non-tender MUSCULOSKELETAL: Trace lower extremity edema Neuro: RASS -2. follows commands very weakly on sedation hold. Currently sedated with propofol and fentanyl A/P Problem List: (1) ARDS (adult respiratory distress syndrome) ICD Code: J80 Status: Acute (2) CHF (congestive heart failure) ICD Code: I50.9 Status: Acute (3) Respiratory failure ICD Code: J96.90 Status: Acute (4) Pneumonia ICD Code: J18.9 Status: Acute Assessment and Plan PLAN: Neuro/Psych: Acute toxic metabolic encephalopathy Agitated delirium Fentanyl and propofol for sedation/analgesia while intubated. Goal RASS -2. Resume Daily sedation vacation due to hypoxia. Continue Seroquel 50mg po q8h for delirium and oxycodone 10mg po q4h femi for pain. Pulm: Acute hypercapnic and hypoxemic respiratory failure ARDS Pneumonia community-acquired, now with HCAP with carbapenem-resistant pseudomonas Likely JOE On PRVC/AC RR 16, TV 550, PEEP 10, IT: 1.1 and FIO2 0.40. Decrease FIO2 as tiki. for goal spo2 > 88% Bronchodilator therapy every 4 hours and as needed ICU vent bundle. Pulm is following- Dr. Beck Resume daily CPAP trials if tolerated Vent day 25, family agreeable for trach -currently not stable resp thompson for trach. Gen surgery on board CV: Hypertension Dyslipidemia Elevated troponin - likely strain Monitor HR and BP keep MAP>65mmg Echo 08/14 showed EF 65-70% mild AR/TR Continue Bumex IV Home medication lovastatin 20 mg by mouth daily switch to Pravachol 20 mg a night. : Maintain Miller while on diuretics and exchange with funguria Monitor renal function, I/O's Bumex as above GI: Elevated transaminases Cholelithiasis Monitor LFT's ( trending down), on Protonix 40mg daily for GI prophylaxis US liver: Fatty liver and cholelithiasis. Repeat US 09/08 rprevious US showed revealed cholelithiasis On TF Glucerna 1.5 @ 45ml/hr with 2 packets of been a protein 3 times a day minimal residual, restart after PEG. s/p PEG placement 09/01/[address] Ritter Prevacid 30 mg daily for GI prophylaxis Colace/Senokot for bowel regimen. Lactulose daily added ID: Pseudomonas pneumonia Funguria Pertinent cultures blood and sputum cx 08/15- NG strep pneumonia and Legionella urinary Ag negative Blood cultures 08/28: NGTD C Diff negative 08/28. Lines changed 08/28. Sputum 08/30 - Pseudomonas Sputum 09/02 PSAE, resistant to carbapenem, intermediate to Levaquin. 09/07 - urine - yeast 09/07 - blood cultures 2 - no growth - Dcd cefepime/Levaquin on 09/05. started on Zosyn 4.5gm iv q6h and tobramycin 7 mg/kg/day. Zosyn discontinued secondary to rash Currently on cefepime and tobramycin aerosols per infectious disease Heme: Normocytic anemia Monitor CBC No indication for transfusion of blood product at this time Endo: Diabetes mellitus Hypothyroidism on SSI ( medium scale) for glycemic control On Synthroid 200mcg daily. TSH 1.37 FEN: Hypokalemia Aggressive electrolyte replacement GI prophylaxis- Prevacid per tube. DVT prophylaxis Heparin SQ, SCDs Lines: - Left SC TLC 08/28 - Miller - PEG 09/01/16 Not stable for trach at this time. Critical Care: The total critical care time was 35 minutes. Time to perform other separately billable procedures was not included in the critical care time. Problem Qualifiers (1) CHF (congestive heart failure): Qualified Code: I50.9 - Acute congestive heart failure, unspecified congestive heart failure type (2) Respiratory failure: Qualified Code: J96.02 - Acute respiratory failure with hypercapnia (3) Pneumonia: Qualified Code: J18.9 - Pneumonia of both lungs due to infectious organism, unspecified part of lung Darian Wylie MD Sep 10, 2016 07:31 (3) Pneumonia: Qualified Code: J18.9 - Pneumonia of both lungs due to infectious organism, unspecified part of lung Darian Wylie MD Sep 10, 2016 07:31
[2016-09-10] MEDS: BUMETANIDE INJ 1 MG/4 ML VIAL IV PUSH SCH ×2 (08:17→17:57)
[2016-09-10] MEDS: LANSOPRAZOLE SOLUTAB 30 MG TAB NG SCH (08:18)
[2016-09-10] MEDS: POTASSIUM CHLORIDE 25 MEQ EFFERVESCENT TAB NG SCH (08:18)
[2016-09-10] MEDS: SODIUM CHLORIDE 0.9% FLUSH 10 ML FLUSH IV FLUSH SCH ×2 (08:18→20:54)
[2016-09-10] MEDS: ARTIFICIAL TEARS OPTH SOLN 15 ML BTL EACH EYE SCH ×3 (08:18→17:56)
[2016-09-10] MEDS: SENNOSIDES SYRUP 8.8 MG/5 ML CUP PO SCH ×2 (08:18→20:53)
[2016-09-10] MEDS: DOCUSATE SODIUM 100 MG CAP PO SCH ×2 (08:18→20:53)
[2016-09-10] MEDS: BENEPROTEIN POWDER 1 PACK G-TUBE SCH ×3 (08:19→17:57)
[2016-09-10] MEDS: HEPARIN SODIUM - SQ 10,000 UNITS/ML VIAL SQ SCH ×3 (08:19→23:15)
[2016-09-10] MEDS ORDERED: LACTULOSE SYRUP 20 GM/30 ML CUP PO SCH (09:00)
[2016-09-10 09:08] LABS: BANDS 19 % (0-6); BASOPHILS 3 % (0-2); CORRECTED NUCLEATED RBC 3 /100 WBC (0-0); EOSINOPHILS 2 % (0-4); METAMYELOCYTES 2 % (0-1); MYELOCYTES 4 % (0-0); NEUTROPHIL # MANUAL DIFF 4.8 TH/MM3 (1.8-7.7); POLYS (SEG NEUTROPHILS) 55 % (16-70); WBC DIFF SAMPLE 100
[2016-09-10 09:10] LABS: PLATELET ESTIMATE SMEAR NORMAL (NORMAL); PLATELET MORPHOLOGY NORMAL (NORMAL); SCAN/DIFF FINAL DIFF MANUAL
[2016-09-10] MEDS ORDERED: METHYLNALTREXONE BROMIDE 12 MG/0.6 ML VIAL SQ ONE (10:15)
[2016-09-10] MEDS ORDERED: MINERAL OIL LIQUID 30 ML CUP PO ONE (10:15)
--- NOTE | 2016-09-10 10:19 | HHI.CCPN ---
Subjective Remarks/Hospital Course 56-year-old morbidly obese female brought in the emergency department in respiratory distress. She was intubated by ER attending. She has been sick for about a week with symptoms consistent with UTI. She's had fevers and chills. She's been short of breath. She's had fatigue. She has had a cough and chest pain with coughing. The family reports that she's been delirious for the last 3 days. 08/15 Patient is sedated with Diprivan, Versed, Fentanyl and intubated. CTA chest showed no PE multifocal consolidation greatest in RLL. Tmax 100.6 08/16 Patient is sedated with Diprivan and Fentanyl. Afebrile. CXR this morning showed increase consolidation. 08/17 Patient remains sedated and intubated. T:100.4 On PRVC/AC RR 18, Tv 500, IT :1.0 PEEP:10, FIO2 75% 08/18 Remains sedated and intubated. Afebrile. CXR this morning unchanged bibasilar infiltrates and effusions. 08/19 Patient was placed on rotoprone bed last night for proning sedated with Diprivan, Versed and Fentnayl in addition she is on Nimbex. On PRVC/AC RR 20, TV 400, IT:1.1, PEEP:14 and FIO2 80%. Afebrile. 08/20 Patient remains sedated and intubated. Remains on PRVC/AC mode with improvements in her oxygenation on FIO2 50% from 80% yesterday and PEEP:12. 08/21 Patient remains sedated and intubated. On PRVC/AC mode with RR 20, TV 400, IT:1.1, PEEP: 12 and FIO2 50%. Afebrile. 08/22 No acute events overnight. Remains sedated, intubated and on Nimbex.. T: 99.8. On PRVC mode with PEP: 12, FIO2 50%. CXR from yesterday showed better aeration, RLL infiltrate unchanged. 08/23 Chest x-ray worsening. Methylprednisolone taper to twice a day by pulmonary. The patient's FiO2 was found to be 100% this a.m., will continue to wean. 08/24: 1 desat episode yesterday when supine. still remains prone now. no vasopressors. sedated and paralyzed. 08/25: flolan added yesterday. fio2 down to 60%. remained supine all night. still on neuromuscular blockade. net -500cc/24h. 08/26: good diuresis. remained supine. fio2 70%. weaning flolan. remains with significant respiratory support and high peep despite 6L diuresis overnight. Cr still stable. 08/27: continues with good diuresis. net negative 3L/24h. fio2 down to 55%. flolan off. still high peep. not ready for SBT. more agitated today. Cr remains stable despite aggressive diuresis. 08/28: diuresis continues. -3.3L/24h. spiked fever overnight with a jump in wbc to 16 this AM. fio2 60%, but her pulmonary improvements have plateaued at this point. still on peep 12. 08/29: net -1.7L/24h. Cr starting to rise. still spiking fevers despite vanc/ cefepime added yesterday. wbc continues to rise. clinically appears infected, although unclear source. peep 10, fio2 60%. will likely need trach. 08/30: net +800cc, but Cr downtrending. appears clinically euvolemic. fever curve downtrending. wbc downtrending. on 40% fio2, peep 8 today. still following commands. 08/31: failed SBT after only 45 minutes yesterday. intubated for > 2 weeks at this point. will attempt to pursue trach/peg today. will continue with pulmonary strengthening. daily SBTs. 09/01 CXR showing increasing bibasilar infiltrate. Failed C Pap trial in 5 minutes due to severe tachypnea. PEG tube today. Family has not decided on trach yet 09/02: Patient febrile to 101.1, CXR increased infiltrate left upper lung and right lower lobe. Pancultured. Cefepime added today and one dose of vancomycin. Continues to fail C Pap trial due to tachypnea and respiratory distress 09/03: Remains hypoxemic on 75% oxygen with new pneumonia. Sputum culture 09/02/16 with GNR. Family agreeable for tracheostomy but patient is not stable at this point for trach 09/04: still on 70% fio2. still hypoxic. pneumonia persists. needs trach, but too unstable at this point. 09/05: remains on 75% fio2. pseudomonas sensitivities came back resistant to carbapenems, intermediate to levaquin. still spiking fevers. not clinically improving. wbc remains elevated. 09/06: Remains on 12 of PEEP and FiO2 75%. Zosyn and tobramycin started yesterday. WBC count trending down today 11.5 from 13.1. Remains heavily sedated for ventilator synchrony. MAXIMUM TEMPERATURE 100.3 09/07: Continues to spike fever. CXR unchanged. WBC count improving. PEEP 14. FiO2 60%. Will start IV Bumex 1mg IV q12 09/09: Tolerating tube feeds at goal. Afebrile. No documented bowel movement. Currently sedated on the ventilator Subjective 09/10: Tmax 99.7. Currently 99.4. No bowel movement yesterday. None document since 09/04. Arousable on the ventilator Objective Vital Signs Date Time Temp Pulse Resp B/P Pulse Ox O2 Delivery O2 Flow Rate FiO2 09/10/16 06:00 97 09/10/16 04:15 90 40 09/10/16 04:00 99.4 22 110/59 Intake and Output 09/09/16 09/09/16 09/10/16 08:00 16:00 00:00 Intake Total 611 ml 906 ml 928 ml Output Total 500 ml 1150 ml 750 ml Balance 111 ml -244 ml 178 ml Result Diagram: 09/10/16 0500 09/10/16 0500 Other Results Microbiology Date/Time Procedure Status Source Growth 09/09/16 01:48 Urine Culture Received Urine Catheterized Urine Pending 09/07/16 18:00 Aerobic Blood Culture - Preliminary Resulted Blood Peripheral NO GROWTH IN 2 DAYS 09/07/16 18:00 Anaerobic Blood Culture - Preliminary Resulted Blood Peripheral NO GROWTH IN 2 DAYS 09/07/16 13:30 Urine Culture - Final Complete Urine Catheterized Urine Maribell Guilliermondii 09/07/16 13:30 Gram Stain - Final Resulted Sputum Endotracheal 09/07/16 13:30 Sputum Culture - Preliminary Resulted Pseudomonas Aeruginosa Imaging Last Impressions Liver Ultrasound 09/08/16 0000 Signed Impressions: Service Date/Time: Thursday, September 08, 2016 08:45 - CONCLUSION: 1. Cholelithiasis with distended gallbladder. However, there are no associated findings present to diagnose acute cholecystitis. If there is persistent clinical concern for acute cholecystitis could evaluate for cystic duct obstruction with hepatobiliary scintigraphy. 2. Hepatomegaly with very heterogeneous echotexture and steatosis. Dejan Allison MD Chest X-Ray 09/06/16 0000 Signed Impressions: Service Date/Time: Tuesday, September 06, 2016 11:09 - CONCLUSION: No significant change has occurred. Terry Estrada MD Gall Bladder Ultrasound 08/29/16 0000 Signed Impressions: Service Date/Time: Monday, August 29, 2016 15:21 - CONCLUSION: 1. Hepatomegaly with heterogeneous echotexture throughout the liver. 2. There is a large echogenic area near the neck of the gallbladder suggestive of a stone, but despite its large size, demonstrates no acoustic shadowing in any of the views. Taco Davidson MD CT Angiography 08/15/16 0000 Signed Impressions: Service Date/Time: Monday, August 15, 2016 02:33 - CONCLUSION: 1. No evidence for pulmonary embolism. 2. Multifocal consolidation greatest in the right lower lobe and associated adenopathy. Terry Estrada MD Objective Remarks GENERAL: 56 yo female, critically ill currently orotracheally intubated SKIN: Warm and dry. Positive diffuse rash resolving HEAD: Normocephalic. EYES: No scleral icterus. No injection or drainage. NECK: trachea midline. Neck is obese. CARDIOVASCULAR: RRR. S1, S2 no S4 . No murmur RESPIRATORY: Breath sounds equal bilaterally. Tachypneic on the ventilator. Few basilar crackles. On 14 PEEP, 60% FiO2 GASTROINTESTINAL: Abdomen obese, soft, non-tender, no active bowel sounds MUSCULOSKELETAL: Trace bilateral lower extremity edema Neuro: RASS -2. follows commands very weakly on sedation hold. Currently sedated with propofol and fentanyl A/P Problem List: (1) ARDS (adult respiratory distress syndrome) ICD Code: J80 Status: Acute (2) CHF (congestive heart failure) ICD Code: I50.9 Status: Acute (3) Respiratory failure ICD Code: J96.90 Status: Acute (4) Pneumonia ICD Code: J18.9 Status: Acute Assessment and Plan PLAN: Neuro/Psych: Acute toxic metabolic encephalopathy Agitated delirium Fentanyl at 150 g an hour, propofol at 15 mics as per kilogram per minute for sedation/analgesia while intubated. Goal RASS -2. Holding Daily sedation vacation due to hypoxia. continue Seroquel 50mg po q8h for delirium and oxycodone 10mg po q4h [facility] for pain. EEG 09/09 moderate to severe encephalopathy Pulm: Acute hypercapnic and hypoxemic respiratory failure ARDS Pneumonia community-acquired, now with HCAP with carbapenem-resistant pseudomonas Likely JOE On PRVC/AC RR 16, TV 550, PEEP 10, IT: 1.1 and FIO2 0.50. Decrease FIO2 as tiki. for goal spo2 > 88% Bronchodilator therapy every 4 hours and as needed ICU vent bundle. Pulm is following- Dr. Beck Vent day , family agreeable for trach -currently not stable resp thompson for trach. Gen surgery on board CV: Hypertension Dyslipidemia Elevated troponin - likely strain Monitor HR and BP keep MAP>65mmg Echo 08/14 showed EF 65-70% mild AR/TR Home medications HCTZ 12.5 mill grams daily currently on hold while on Bumex. Resume when clinically indicated Home medication lovastatin 20 mg by mouth daily switch to Pravachol 20 mg a night. : Maintain Miller while on diuretics and exchange Miller with funguria Monitor renal function, I/O's GI: Elevated transaminases Cholelithiasis Monitor LFT's ( trending down), on Protonix 40mg daily for GI prophylaxis US liver: Fatty liver and cholelithiasis. Repeat 09/08 revealed cholelithiasis with no acute signs of cholecystitis. Recommend a HIDA scan if indicated On TF Glucerna 1.5 @ 45ml/hr with 2 packets of been a protein 3 times a day minimal residual, restart after PEG. s/p PEG placement 09/01/[address] Ritter Prevacid 30 mg daily for GI prophylaxis Colace/Senokot for bowel regimen. Lactulose daily added ID: Pseudomonas pneumonia Funguria Pertinent cultures blood and sputum cx 08/15- NG strep pneumonia and Legionella urinary Ag negative Blood cultures 08/28: NGTD C Diff negative 08/28. Lines changed 08/28. Sputum 08/30 - Pseudomonas Sputum 09/02 PSAE, resistant to carbapenem, intermediate to Levaquin. 09/07 - urine - yeast 09/07 - blood cultures 2 - no growth 09/09 - urine - no growth - Dcd cefepime/Levaquin on 09/05. started on Zosyn 4.5gm iv q6h and tobramycin 7 mg/kg/day. Zosyn discontinued secondary to rash Currently on cefepime and tobramycin aerosols per infectious disease - Consult ID today due to recurrent fever. Add vancomycin. Coelho culture Heme: Normocytic anemia Monitor CBC No indication for transfusion of blood product at this time Endo: Diabetes mellitus Hypothyroidism on SSI ( medium scale) for glycemic control On Synthroid 200mcg daily. TSH 1.37 FEN: Hypokalemia - resolved ICU electrolyte protocol initiated. 40 mEq IV potassium is 1. Recheck at 1800 along with magnesium KCl 20 mEq scheduled daily GI prophylaxis- Prevacid per tube. DVT prophylaxis Heparin SQ, SCDs Lines: - Left SC TLC 08/28 - Miller - PEG 09/01/16 Not stable for trach at this time. Critical Care: The total critical care time was 35 minutes. Time to perform other separately billable procedures was not included in the critical care time. Problem Qualifiers (1) CHF (congestive heart failure): Qualified Code: I50.9 - Acute congestive heart failure, unspecified congestive heart failure type (2) Respiratory failure: Qualified Code: J96.02 - Acute respiratory failure with hypercapnia (3) Pneumonia: Qualified Code: J18.9 - Pneumonia of both lungs due to infectious organism, unspecified part of lung Fadi Villa MD Sep 10, 2016 10:19 Fadi Villa MD Sep 10, 2016 10:19
[2016-09-10] MEDS: LACTULOSE SYRUP 20 GM/30 ML CUP PO SCH ×3 (10:31→23:14)
[2016-09-10] MEDS: RESP: TOBRAMYCIN SULFATE 80 MG/2 ML NEB NEB SCH ×2 (11:54→20:24)
[2016-09-10 15:35] LABS: C. DIFF EPI 027 PRESUMPTIVE NEGATIVE (NEGATIVE)
[2016-09-10] MEDS ORDERED: Vancomycin Consult Pharmacy 1 EA OTHER SCH (17:45)
[2016-09-10] MEDS: ACETAMINOPHEN 325 MG TAB PO PRN (17:56)
--- NOTE | 2016-09-10 19:14 | PD.PROCEDR ---
Central Line Procedure REASON FOR PROCEDURE Central venous access PROCEDURE PERFORMED Central line placement: Left IJ CVL CONSENT Informed consent for procedure was obtained. The risks and benefits of the procedure were discussed to include but limited to bleeding, clot formation, infection, and even . ANESTHESIA Local injection of 1% Lidocaine DESCRIPTION OF THE PROCEDURE The patient was placed in supine, mild Trendelenburg position. The area was exposed and cleansed with ChloraPrep, times two. Large sterile drape was used to cover the patient, with the site exposed, under sterile conditions including cap, face mask, sterile gown, and sterile gloves. On single attempt, the introducer needle was inserted with negative pressure in syringe and venous flash was obtained. The guide wire was then advanced without any restriction and the needle was removed. The dilator was used without any complications. Using Seldinger technique the triple lumen catheter was advanced over the guide wire to a depth of 20 centimeters. The guide wire was removed. All ports were aspirated with dark venous blood return and flushed easily with sterile saline. All ports were capped. Antibiotic disc was placed around central line at puncture site. The central line was secured to the skin with two interrupted 2.0 silk sutures. The area was bandaged with sterile see-through central line bandage. RADIOLOGICAL DATA Ultrasound guidance was used to locate the left IJ. Doppler/color flow was used to confirm venous flow. COMPLICATIONS: No apparent complications ESTIMATED BLOOD LOSS: Less than 10 cc. Fadi Villa MD Sep 10, 2016 19:14
--- NOTE | 2016-09-10 19:52 | RADRPT ---
EXAM DATE/TIME: 09/10/2016 19:29 [facility] COMPARISON: No previous studies available for comparison. INDICATIONS : Central line placement. MEDICAL HISTORY : Hypothyroidism. Hypercholesterolemia. Hypertension. Apnea. SURGICAL HISTORY : None. ENCOUNTER: Subsequent ACUITY: 1 week PAIN SCORE: Non-responsive. LOCATION: Bilateral chest FINDINGS: A single view of the chest demonstrates endotracheal tube in satisfactory position. Left central line in superior vena cava. Bilateral airspace disease present, slightly increased on the left since Apri l 12. CONCLUSION: 1. Left central line in superior vena cava without pneumothorax. Endotracheal tube unchanged. Rony Malloy MD on September 10, 2016 at 19:50 Board Certified Radiologist. This report was verified electronically.
[2016-09-10] MEDS: VANCOMYCIN INJ 1,300 MG in SODIUM CHLORID 0.9% 500 ML INJ 500 ML IV SCH (20:50)
[2016-09-10] MEDS: PRAVASTATIN SOD 20 MG TAB PO SCH (20:53)
[2016-09-11] VITALS (19 sets, daily range): BP systolic 111–120; BP diastolic 58–67; PULSE 94–107; RESP 17–22; TEMP 98.6–100.7; O2SAT 90–96
[2016-09-11] MEDS: oxyCODONE HCL ORAL CONC 20 MG/ML SYRINGE PO SCH ×7 (00:50→22:51)
[2016-09-11] MEDS: fentaNYL DRIP 250 ML IV SCH ×2 (00:59→23:01)
[2016-09-11] MEDS: RESP: ALBUTEROL 2.5 MG/IPRATROPIUM 0.5 MG NEB (SCH) INH ×6 (03:29→23:28)
[2016-09-11] MEDS: CHLORHEXIDINE GLUCONATE 2 % 1 PACK (2 CLOTHS) TOP SCH (04:00)
[2016-09-11] MEDS: PROPOFOL 1000 MG/100 ML INJ 100 ML IV SCH ×4 (04:30→20:53)
[2016-09-11] MEDS: INSULIN NovoLIN REGULAR SUPPLEMENTAL SCALE SQ SCH ×4 (05:35→22:00)
[2016-09-11] MEDS: LACTULOSE SYRUP 20 GM/30 ML CUP PO SCH ×2 (07:51→12:00)
[2016-09-11] MEDS: CEFEPIME INJ 2,000 MG in SODIUM CHLORIDE 0.9% INJ 100 ML IV SCH ×3 (07:52→22:51)
[2016-09-11] MEDS: LEVOTHYROXINE SODIUM 200 MCG TAB PO SCH (07:52)
[2016-09-11] MEDS: QUEtiapine FUMARATE 25 MG TAB PO SCH ×3 (07:52→20:54)
[2016-09-11] MEDS: RESP: TOBRAMYCIN SULFATE 80 MG/2 ML NEB NEB SCH ×2 (08:12→19:42)
[2016-09-11 08:53] LABS: HEMATOCRIT 32.1 % (35.0-46.0); MEAN CELL VOLUME 85.5 FL (80.0-100.0); MEAN CORPUSCULAR HEMOGLOBIN 28.3 PG (27.0-34.0); MEAN CORPUSCULAR HGB CONC 33.1 % (32.0-36.0); PLATELET COUNT 256 TH/MM3 (150-450); RED BLOOD COUNT 3.75 MIL/MM3 (4.00-5.30)
[2016-09-11 08:54] LABS: REVIEW FLAG FINAL
[2016-09-11] MEDS ORDERED: FLUCONAZOLE 400 MG PREMIX BAG 200 ML IV SCH (09:00)
[2016-09-11] MEDS: ARTIFICIAL TEARS OPTH SOLN 15 ML BTL EACH EYE SCH ×3 (09:00→17:39)
[2016-09-11] MEDS: SODIUM CHLORIDE 0.9% FLUSH 10 ML FLUSH IV FLUSH SCH ×2 (09:00→20:54)
[2016-09-11] MEDS: SENNOSIDES SYRUP 8.8 MG/5 ML CUP PO SCH ×2 (09:00→20:54)
[2016-09-11] MEDS: DOCUSATE SODIUM 100 MG CAP PO SCH ×2 (09:00→20:54)
[2016-09-11] MEDS: BENEPROTEIN POWDER 1 PACK G-TUBE SCH ×3 (09:00→17:38)
[2016-09-11] MEDS: SODIUM CHLORIDE 0.9% FLUSH 10 ML FLUSH IVF SCH (09:00)
[2016-09-11] MEDS: VANCOMYCIN INJ 1,300 MG in SODIUM CHLORID 0.9% 500 ML INJ 500 ML IV SCH ×2 (09:06→20:53)
[2016-09-11] MEDS: BUMETANIDE INJ 1 MG/4 ML VIAL IV PUSH SCH ×2 (09:07→17:38)
[2016-09-11] MEDS: POTASSIUM CHLORIDE 25 MEQ EFFERVESCENT TAB NG SCH (09:07)
[2016-09-11] MEDS: HEPARIN SODIUM - SQ 10,000 UNITS/ML VIAL SQ SCH ×3 (09:07→22:51)
[2016-09-11] MEDS: LANSOPRAZOLE SOLUTAB 30 MG TAB NG SCH (09:07)
[2016-09-11 09:26] LABS: BICARBONATE 30.5 MEQ/L (21.0-32.0); POTASSIUM 3.6 MEQ/L (3.5-5.1)
--- NOTE | 2016-09-11 10:42 | HHI.CCPN ---
Subjective Remarks/Hospital Course 56-year-old morbidly obese female brought in the emergency department in respiratory distress. She was intubated by ER attending. She has been sick for about a week with symptoms consistent with UTI. She's had fevers and chills. She's been short of breath. She's had fatigue. She has had a cough and chest pain with coughing. The family reports that she's been delirious for the last 3 days. 08/15 Patient is sedated with Diprivan, Versed, Fentanyl and intubated. CTA chest showed no PE multifocal consolidation greatest in RLL. Tmax 100.6 08/16 Patient is sedated with Diprivan and Fentanyl. Afebrile. CXR this morning showed increase consolidation. 08/17 Patient remains sedated and intubated. T:100.4 On PRVC/AC RR 18, Tv 500, IT :1.0 PEEP:10, FIO2 75% 08/18 Remains sedated and intubated. Afebrile. CXR this morning unchanged bibasilar infiltrates and effusions. 08/19 Patient was placed on rotoprone bed last night for proning sedated with Diprivan, Versed and Fentnayl in addition she is on Nimbex. On PRVC/AC RR 20, TV 400, IT:1.1, PEEP:14 and FIO2 80%. Afebrile. 08/20 Patient remains sedated and intubated. Remains on PRVC/AC mode with improvements in her oxygenation on FIO2 50% from 80% yesterday and PEEP:12. 08/21 Patient remains sedated and intubated. On PRVC/AC mode with RR 20, TV 400, IT:1.1, PEEP: 12 and FIO2 50%. Afebrile. 08/22 No acute events overnight. Remains sedated, intubated and on Nimbex.. T: 99.8. On PRVC mode with PEP: 12, FIO2 50%. CXR from yesterday showed better aeration, RLL infiltrate unchanged. 08/23 Chest x-ray worsening. Methylprednisolone taper to twice a day by pulmonary. The patient's FiO2 was found to be 100% this a.m., will continue to wean. 08/24: 1 desat episode yesterday when supine. still remains prone now. no vasopressors. sedated and paralyzed. 08/25: flolan added yesterday. fio2 down to 60%. remained supine all night. still on neuromuscular blockade. net -500cc/24h. 08/26: good diuresis. remained supine. fio2 70%. weaning flolan. remains with significant respiratory support and high peep despite 6L diuresis overnight. Cr still stable. 08/27: continues with good diuresis. net negative 3L/24h. fio2 down to 55%. flolan off. still high peep. not ready for SBT. more agitated today. Cr remains stable despite aggressive diuresis. 08/28: diuresis continues. -3.3L/24h. spiked fever overnight with a jump in wbc to 16 this AM. fio2 60%, but her pulmonary improvements have plateaued at this point. still on peep 12. 08/29: net -1.7L/24h. Cr starting to rise. still spiking fevers despite vanc/ cefepime added yesterday. wbc continues to rise. clinically appears infected, although unclear source. peep 10, fio2 60%. will likely need trach. 08/30: net +800cc, but Cr downtrending. appears clinically euvolemic. fever curve downtrending. wbc downtrending. on 40% fio2, peep 8 today. still following commands. 08/31: failed SBT after only 45 minutes yesterday. intubated for > 2 weeks at this point. will attempt to pursue trach/peg today. will continue with pulmonary strengthening. daily SBTs. 09/01 CXR showing increasing bibasilar infiltrate. Failed C Pap trial in 5 minutes due to severe tachypnea. PEG tube today. Family has not decided on trach yet 09/02: Patient febrile to 101.1, CXR increased infiltrate left upper lung and right lower lobe. Pancultured. Cefepime added today and one dose of vancomycin. Continues to fail C Pap trial due to tachypnea and respiratory distress 09/03: Remains hypoxemic on 75% oxygen with new pneumonia. Sputum culture 09/02/16 with GNR. Family agreeable for tracheostomy but patient is not stable at this point for trach 09/04: still on 70% fio2. still hypoxic. pneumonia persists. needs trach, but too unstable at this point. 09/05: remains on 75% fio2. pseudomonas sensitivities came back resistant to carbapenems, intermediate to levaquin. still spiking fevers. not clinically improving. wbc remains elevated. 09/06: Remains on 12 of PEEP and FiO2 75%. Zosyn and tobramycin started yesterday. WBC count trending down today 11.5 from 13.1. Remains heavily sedated for ventilator synchrony. MAXIMUM TEMPERATURE 100.3 09/07: Continues to spike fever. CXR unchanged. WBC count improving. PEEP 14. FiO2 60%. Will start IV Bumex 1mg IV q12 09/09: Tolerating tube feeds at goal. Afebrile. No documented bowel movement. Currently sedated on the ventilator 09/10: Tmax 99.7. Currently 99.4. No bowel movement yesterday. None document since 09/04. Arousable on the ventilator Subjective 09/11: Tmax 102.6. Currently 100. Positive BM. Arousable on the ventilator. Tolerating tube feeds. Central line changed yesterday. Plan for bronchoscopy at 1 PM. Objective Vital Signs Date Time Temp Pulse Resp B/P Pulse Ox O2 Delivery O2 Flow Rate FiO2 09/11/16 07:41 90 40 09/11/16 04:00 100.0 95 22 117/67 Intake and Output 09/10/16 09/10/16 09/11/16 08:00 16:00 00:00 Intake Total 784 ml 1031 ml 577 ml Output Total 450 ml 1050 ml 725 ml Balance 334 ml -19 ml -148 ml Result Diagram: 09/11/16 0640 09/11/16 0640 Other Results Microbiology Date/Time Procedure Status Source Growth 09/10/16 20:07 Aerobic Blood Culture Received Blood Peripheral Pending 09/10/16 20:07 Anaerobic Blood Culture Received Blood Peripheral Pending 09/09/16 01:48 Urine Culture - Preliminary Resulted Urine Catheterized Urine Yeast-Id To Follow 09/07/16 18:00 Aerobic Blood Culture - Preliminary Resulted Blood Peripheral NO GROWTH IN 3 DAYS 09/07/16 18:00 Anaerobic Blood Culture - Preliminary Resulted Blood Peripheral NO GROWTH IN 3 DAYS 09/07/16 13:30 Urine Culture - Final Complete Urine Catheterized Urine Maribell Guilliermondii 09/07/16 13:30 Gram Stain - Final Complete Sputum Endotracheal 09/07/16 13:30 Sputum Culture - Final Complete Pseudomonas Aeruginosa Imaging Last Impressions Chest X-Ray 09/10/16 1912 Signed Impressions: Service Date/Time: Saturday, September 10, 2016 19:29 - CONCLUSION: 1. Left central line in superior vena cava without pneumothorax. Endotracheal tube unchanged. Rony Malloy MD Liver Ultrasound 09/08/16 0000 Signed Impressions: Service Date/Time: Thursday, September 08, 2016 08:45 - CONCLUSION: 1. Cholelithiasis with distended gallbladder. However, there are no associated findings present to diagnose acute cholecystitis. If there is persistent clinical concern for acute cholecystitis could evaluate for cystic duct obstruction with hepatobiliary scintigraphy. 2. Hepatomegaly with very heterogeneous echotexture and steatosis. Dejan Allison MD Gall Bladder Ultrasound 08/29/16 0000 Signed Impressions: Service Date/Time: Monday, August 29, 2016 15:21 - CONCLUSION: 1. Hepatomegaly with heterogeneous echotexture throughout the liver. 2. There is a large echogenic area near the neck of the gallbladder suggestive of a stone, but despite its large size, demonstrates no acoustic shadowing in any of the views. Taco Davidson MD CT Angiography 08/15/16 0000 Signed Impressions: Service Date/Time: Monday, August 15, 2016 02:33 - CONCLUSION: 1. No evidence for pulmonary embolism. 2. Multifocal consolidation greatest in the right lower lobe and associated adenopathy. Terry Estrada MD Objective Remarks GENERAL: 56 yo female, critically ill currently orotracheally intubated SKIN: Warm and dry. Positive diffuse rash resolving HEAD: Normocephalic. EYES: No scleral icterus. No injection or drainage. NECK: trachea midline. Neck is obese. Left IJ clean dry and intact CARDIOVASCULAR: RRR. S1, S2 no S4 . No murmur RESPIRATORY: Breath sounds equal bilaterally. Tachypneic on the ventilator. Few basilar crackles. On 14 PEEP, 60% FiO2 GASTROINTESTINAL: Abdomen obese, soft, non-tender, no active bowel sounds MUSCULOSKELETAL: Trace bilateral lower extremity edema Neuro: RASS -2. follows commands very weakly on sedation hold. Currently sedated with propofol and fentanyl A/P Problem List: (1) ARDS (adult respiratory distress syndrome) ICD Code: J80 Status: Acute (2) CHF (congestive heart failure) ICD Code: I50.9 Status: Acute (3) Respiratory failure ICD Code: J96.90 Status: Acute (4) Pneumonia ICD Code: J18.9 Status: Acute Assessment and Plan PLAN: Neuro/Psych: Acute toxic metabolic encephalopathy Agitated delirium Fentanyl at 150 g an hour, propofol at 15 mics as per kilogram per minute for sedation/analgesia while intubated. Goal RASS -2. Holding Daily sedation vacation due to hypoxia. continue Seroquel 50mg po q8h for delirium and oxycodone 10mg po q4h femi for pain. EEG 09/09 moderate to severe encephalopathy Pulm: Acute hypercapnic and hypoxemic respiratory failure ARDS Pneumonia community-acquired, now with HCAP with carbapenem-resistant pseudomonas Likely JOE On PRVC/AC RR 16, TV 550, PEEP 10, IT: 1.1 and FIO2 0.40. Decrease FIO2 as tiki. for goal spo2 > 88% Bronchodilator therapy every 4 hours and as needed ICU vent bundle. Pulm is following- Dr. Beck ID request bronchoscopy for samples. Vent day 28, family agreeable for trach -currently stable resp thompson for trach. Gen surgery Dr. Ortega on board. Plan tracheostomy on CV: Hypertension Dyslipidemia Elevated troponin - likely strain Monitor HR and BP keep MAP>65mmg Echo 08/14 showed EF 65-70% mild AR/TR Home medications HCTZ 12.5 mill grams daily currently on hold while on Bumex. Resume when clinically indicated Home medication lovastatin 20 mg by mouth daily switch to Pravachol 20 mg a night. : Maintain Miller while on diuretics Bumex 1 mg twice a day and exchange Miller with funguria Monitor renal function, I/O's GI: Elevated transaminases Cholelithiasis Monitor LFT's ( trending down), on Protonix 40mg daily for GI prophylaxis US liver: Fatty liver and cholelithiasis. Repeat 09/08 revealed cholelithiasis with no acute signs of cholecystitis. Recommend a HIDA scan if indicated On TF Glucerna 1.5 @ 45ml/hr with 2 packets of been a protein 3 times a day minimal residual, restart after PEG. s/p PEG placement 09/01/[address] Ritter Prevacid 30 mg daily for GI prophylaxis Colace/Senokot for bowel regimen. Lactulose daily added ID: Pseudomonas pneumonia Funguria Pertinent cultures blood and sputum cx 08/15- NG strep pneumonia and Legionella urinary Ag negative Blood cultures 08/28: NGTD C Diff negative 08/28. Lines changed 08/28. Sputum 08/30 - Pseudomonas Sputum 09/02 PSAE, resistant to carbapenem, intermediate to Levaquin. 09/07 - urine -Maribell Guilliermondii 09/07 - blood cultures 2 - no growth 09/09 - urine - no growth 09/10 - blood cultures 2 - pending - Dcd cefepime/Levaquin on 09/05. started on Zosyn 4.5gm iv q6h and tobramycin 7 mg/kg/day. Zosyn discontinued secondary to rash Currently on cefepime and tobramycin aerosols per infectious disease and Diflucan - Consult ID due to recurrent fever. Add vancomycin Heme: Normocytic anemia Monitor CBC No indication for transfusion of blood product at this time Endo: Diabetes mellitus Hypothyroidism on SSI ( medium scale) for glycemic control On Synthroid 200mcg daily. TSH 1.37 FEN: Hypokalemia - resolved ICU electrolyte protocol initiated. 20 mEq down tube 1.. KCl 25 mEq scheduled daily GI prophylaxis- Prevacid per tube. DVT prophylaxis Heparin SQ, SCDs Lines: - Left IJ TLC 09/10 the present - Miller - PEG 09/01/16 Critical Care: The total critical care time was 35 minutes. Time to perform other separately billable procedures was not included in the critical care time. Problem Qualifiers (1) CHF (congestive heart failure): Qualified Code: I50.9 - Acute congestive heart failure, unspecified congestive heart failure type (2) Respiratory failure: Qualified Code: J96.02 - Acute respiratory failure with hypercapnia (3) Pneumonia: Qualified Code: J18.9 - Pneumonia of both lungs due to infectious organism, unspecified part of lung Fadi Villa MD Sep 11, 2016 10:42
[2016-09-11] MEDS ORDERED: POTASSIUM CHLORIDE 20 MEQ PWD PACKET PO ONE (10:45)
[2016-09-11] MEDS ORDERED: ROCURONIUM INJ 100 MG/10 ML VIAL IV ONE (13:15)
[2016-09-11] MEDS ORDERED: MIDAZOLAM HCL 5 MG/5 ML VIAL IV PUSH ONE (13:15)
--- NOTE | 2016-09-11 13:47 | PD.PROCEDR ---
Procedure Note Procedure DATE: 09/11/2016 FIBREOPTIC BRONCHOSCOPY INDICATION: Vent dependent respiratory failure/persistent fevers CONSENT Informed consent for procedure was obtained from healthcare proxy/daughter. DESCRIPTION OF THE PROCEDURE The patient is placed on PRVC ventilation with FiO2 100%. Rate of 18. Tidal volume around 600. PEEP to 10. I time 1.2. Patient sedated on propofol and fentanyl drips. Patient received 25 fentanyl and 2 mg Versed IV along with 100 mg rocuronium. The fibrotic [place] of Synvisc into the 8.0 ET tube. Findings the main armaan was sharp. The left mainstem bronchus/upper and lower lobes are clear of any secretions. Mucosa appeared somewhat erythematous. Hyperdynamic airway. The scope was retracted in the right mainstem was evaluated. Right upper lobe findings were normal. The right bronchus intermedius was then evaluated to right middle lobe revealed can't thin white mucus that was suctioned with 30 cc sterile saline into a Luken's trap. Sent for appropriate cultures. The right lower lobe showed again erythematous mucosa without secretions. The bronchoscope was removed. Saturations remained above 95% all times. ESTIMATED BLOOD LOSS: Minimal COMPLICATIONS: No apparent complications. STAT chest x-ray pending at time of dictation Fadi Villa MD Sep 11, 2016 13:47
--- NOTE | 2016-09-11 14:33 | HHI.IDPN ---
Subjective Subjective Remarks Ms. Clayton is a 56 year old female with past medical history of Morbid Obesity , hypothyroidism, obstructive sleep apnea, and high cholesterol. Patient reportedly is on oxygen at home 2L, and was supposed to be using BiPAP at night for JOE but was reportedly non compliant. Patient presented to [facility] emergency department with family on 08/14/16 for evaluation of respiratory distress. Review of notes indicate the patient had reported being sick for one week prior to presentation with progressively worsening symptoms including fever , chills, shortness of breath, cough, chest pain with coughing, increase confusion and fatigue. Initial evaluation in the ED revealed temp of 100.6 F, HR 106, RR 36, BP 178/103, O2 Sats 100% FiO2. Her WBC was 13.6, Plts 423, Cr 0.77. LFTs were elevated total bilirubin 0.4, AST 77, ALT 72, Alk phos 143. Patient had sepsis workup initiated. UA was negative CXR with bilateral infiltrated. Patient is admitted to ICU with respiratory failure, CHF, pneumonia, probable underlying COPD. Patient was intubated and placed on mechanical ventilation. Pulmonology, Dr. Beck was consulted for respiratory failure/sleep apnea and continues to follow. 08/15/16 CTA showed no evidence of pulmonary embolism, multifocal consolidation greatest right lower lobe. Hospital course has been complicated by continued high oxygen ventilator needs, ARDS and inability to wean from vent. Patient was started on Zosyn IV and Tobramycin pharmacy consult placed by Drill Bit Sharpener. ID consulted for fever in patient being treated for PSAE Pneumonia. Persistent fevers low grade. s/p bronchoscopy today: not much resp secretions. No mucus plugs. Rash better. No diarrhea Not much secretions. small, mcpherson mostly oral. UO ok remains on vent. Antibiotics Cefepime IV tobramycin nebs Diflucan Lines Line sites with no e.o infection Past Medical History reviewed. Allergies: Coded Allergies: No Known Allergies (Verified , 08/14/16) Objective . Vital Signs Date Time Temp Pulse Resp B/P Pulse Ox O2 Delivery O2 Flow Rate FiO2 09/11/16 13:20 96 100 09/11/16 12:00 107 09/11/16 11:00 92 40 09/11/16 10:00 105 09/11/16 08:00 96 09/11/16 07:41 90 40 09/11/16 06:00 45 09/11/16 04:23 93 40 09/11/16 04:00 100.0 95 22 117/67 96 09/11/16 04:00 45 09/11/16 02:00 101 09/11/16 01:19 94 50 09/11/16 00:00 45 09/11/16 00:00 103 09/11/16 00:00 100.0 103 21 120/64 95 09/10/16 22:23 94 60 09/10/16 22:00 104 09/10/16 20:24 94 50 09/10/16 20:00 103 09/10/16 20:00 45 09/10/16 20:00 100.1 103 20 108/56 94 09/10/16 18:00 106 09/10/16 16:12 20 09/10/16 16:00 108 09/10/16 16:00 102.6 106 22 111/53 92 09/10/16 16:00 45 09/10/16 15:12 96 50 09/10/16 09/10/16 09/11/16 15:00 23:00 07:00 Intake Total 1031 ml 577 ml 1486 ml Output Total 1050 ml 725 ml 478 ml Balance -19 ml -148 ml 1008 ml IV Total 445 ml 269 ml 888 ml Tube Feeding 386 ml 158 ml 398 ml Other 200 ml 150 ml 200 ml Output Urine Total 1050 ml 725 ml 478 ml # Bowel Movements 2 0 . Laboratory Tests Test 09/10/16 09/11/16 05:00 06:40 White Blood Count 6.0 TH/MM3 8.0 TH/MM3 Red Blood Count 3.66 MIL/MM3 3.75 MIL/MM3 Hemoglobin 10.3 GM/DL 10.6 GM/DL Hematocrit 31.0 % 32.1 % Mean Corpuscular Volume 84.7 FL 85.5 FL Mean Corpuscular Hemoglobin 28.2 PG 28.3 PG Mean Corpuscular Hemoglobin 33.3 % 33.1 % Concent Red Cell Distribution Width 17.4 % 18.0 % Platelet Count 315 TH/MM3 256 TH/MM3 Mean Platelet Volume 8.4 FL 8.7 FL Neutrophils (%) (Auto) 71.6 % Lymphocytes (%) (Auto) 15.9 % Monocytes (%) (Auto) 8.0 % Eosinophils (%) (Auto) 3.6 % Basophils (%) (Auto) 0.9 % Neutrophils # (Auto) 4.3 TH/MM3 Lymphocytes # (Auto) 1.0 TH/MM3 Monocytes # (Auto) 0.5 TH/MM3 Eosinophils # (Auto) 0.2 TH/MM3 Basophils # (Auto) 0.1 TH/MM3 CBC Comment AUTO DIFF Differential Total Cells 100 Counted Neutrophils % (Manual) 55 % Band Neutrophils % 19 % Lymphocytes % 12 % Monocytes % 3 % Eosinophils % 2 % Basophils % 3 % Neutrophils # (Manual) 4.8 TH/MM3 Metamyelocytes 2 % Myelocytes 4 % Nucleated Red Blood Cells 3 /100 WBC Differential Comment FINAL DIFF MANUAL Platelet Estimate NORMAL Platelet Morphology Comment NORMAL Red Cell Morphology Comment NORMAL Laboratory Tests Test 09/09/16 09/09/16 09/10/16 09/11/16 18:00 22:15 05:00 06:40 Potassium Level 4.3 MEQ/L 3.9 MEQ/L 4.0 MEQ/L 3.6 MEQ/L Magnesium Level 2.0 MG/DL 2.0 MG/DL Sodium Level 137 MEQ/L 136 MEQ/L Chloride Level 98 MEQ/L 97 MEQ/L Carbon Dioxide Level 32.1 MEQ/L 30.5 MEQ/L Anion Gap 7 MEQ/L 9 MEQ/L Blood Urea Nitrogen 22 MG/DL 24 MG/DL Creatinine 0.60 MG/DL 0.61 MG/DL Estimat Glomerular Filtration 104 ML/MIN 102 ML/MIN Rate Random Glucose 128 MG/DL 148 MG/DL Calcium Level 8.4 MG/DL 8.7 MG/DL Phosphorus Level 3.2 MG/DL Total Bilirubin 0.4 MG/DL Aspartate Amino Transf 36 U/L (AST/SGOT) Alanine Aminotransferase 32 U/L (ALT/SGPT) Alkaline Phosphatase 132 U/L Ammonia 17 MCMOL/L Total Creatine Kinase 14 U/L Total Protein 6.3 GM/DL Albumin 1.6 GM/DL Microbiology Date/Time Procedure Status Source Growth 09/09/16 01:48 Urine Culture - Final Complete Urine Catheterized Urine Maribell Parapsilosis Viridans Streptococcus Grp 09/10/16 20:00 Aerobic Blood Culture - Preliminary Resulted Blood Peripheral NO GROWTH IN 1 DAY 09/10/16 20:00 Anaerobic Blood Culture - Preliminary Resulted Blood Peripheral NO GROWTH IN 1 DAY 09/10/16 20:07 Aerobic Blood Culture - Preliminary Resulted Blood Peripheral NO GROWTH IN 1 DAY 09/10/16 20:07 Anaerobic Blood Culture - Preliminary Resulted Blood Peripheral NO GROWTH IN 1 DAY 09/11/16 13:40 Gram Stain Received Bronchial Washings Bronchial Pending 09/11/16 13:40 Bronchial Culture Received Bronchial Washings Bronchial Pending 09/11/16 13:40 Acid Fast Stain Received Bronchial Washings Bronchial Pending 09/11/16 13:40 Mycobacterial Culture Received Bronchial Washings Bronchial Pending 09/11/16 13:40 Fungal Smear Received Bronchial Washings Bronchial Pending 09/11/16 13:40 Fungal Culture Received Bronchial Washings Bronchial Pending Imaging Last Impressions Liver Ultrasound 09/08/16 0000 Signed Impressions: Service Date/Time: Thursday, September 08, 2016 08:45 - CONCLUSION: 1. Cholelithiasis with distended gallbladder. However, there are no associated findings present to diagnose acute cholecystitis. If there is persistent clinical concern for acute cholecystitis could evaluate for cystic duct obstruction with hepatobiliary scintigraphy. 2. Hepatomegaly with very heterogeneous echotexture and steatosis. Dejan Allison MD Chest X-Ray 09/06/16 0000 Signed Impressions: Service Date/Time: Tuesday, September 06, 2016 11:09 - CONCLUSION: No significant change has occurred. Terry Estrada MD Gall Bladder Ultrasound 08/29/16 0000 Signed Impressions: Service Date/Time: Monday, August 29, 2016 15:21 - CONCLUSION: 1. Hepatomegaly with heterogeneous echotexture throughout the liver. 2. There is a large echogenic area near the neck of the gallbladder suggestive of a stone, but despite its large size, demonstrates no acoustic shadowing in any of the views. Taco Davidson MD CT Angiography 08/15/16 0000 Signed Impressions: Service Date/Time: Monday, August 15, 2016 02:33 - CONCLUSION: 1. No evidence for pulmonary embolism. 2. Multifocal consolidation greatest in the right lower lobe and associated adenopathy. Terry Estrada MD Physical Exam GENERAL: Morbidly obese CF patient, in no apparent distress. SKIN: Skin folds with erythema noted. HEAD: Atraumatic. Normocephalic. No temporal or scalp tenderness. EYES: Pupils equal round and reactive. Extraocular motions intact. No scleral icterus. No injection or drainage. ENT: Intubated. NECK: Large neck. Intubated. Supple, nontender, no meningeal signs. CARDIOVASCULAR: RRR. RESPIRATORY: Clear to auscultation. Breath sounds equal bilaterally. GASTROINTESTINAL: Abdomen soft, non-tender, nondistended. MUSCULOSKELETAL: Extremities without clubbing, cyanosis. Edema. NEUROLOGICAL: Sedated. IV line sites with no e.o infection. Miller in place with clear urine. Assessment & Plan Remarks Sepsis present on admission. Now with SIRS/Sepsis new. New Rash: ? cause for SIRS. Drug induced: Zosyn IV most likely. Reviewed pneumonia: pansensitive. R/o HCAP/VAP. Morbid Obesity (BMI 45.8 kg/m2) Obstructive Sleep Apnea (supposed to be on CPAP at home and home oxygen 2L) Acute respiratory failure vent dependent. Acute metabolic encephalopathy: infection, meds. Recs: Continue Cefepime IV Continue Tobramycin nebs. Maribell G can be resistant to Diflucan. Miller changed already. Start Voriconazole Follow cultures Follow clinically. d/w RN and Terri Cabello MD Sep 11, 2016 14:33 Terri Uribe MD Sep 11, 2016 14:33
--- NOTE | 2016-09-11 14:35 | RADRPT ---
EXAM DATE/TIME: 09/11/2016 13:42 [facility] COMPARISON: CHEST SINGLE AP, September 10, 2016, 19:29. INDICATIONS : Post bronchoscopy MEDICAL HISTORY : Hypertension. apnea SURGICAL HISTORY : g-tube ENCOUNTER: Subsequent ACUITY: 1 week PAIN SCORE: Non-responsive. LOCATION: Bilateral chest FINDINGS: Diffuse bilateral mixed interstitial and alveolar process has not changed. Lines and tubes have not c hanged. The rest of the examination has not changed. IMPRESSION: No appreciable change. Danyel Escalante MD on September 11, 2016 at 14:29 Board Certified Radiologist. This report was verified electronically.
--- NOTE | 2016-09-11 14:48 | HHI.HCPN ---
Reason for visit a. To assist with evaluation and management of symptoms including: dyspnea, pain. b. To assist medical decision maker(s) with: better understanding of current medical conditions; weighing benefits/burdens of medical treatment options; making medical treatment decisions. . Subjective/Interval History Patient seen and examined in ICU. Discussed with nurse, Shila and Dr. Villa. Plan for bronchoscopy later today and tracheostomy on . Also present Sara Candelario, [employer] med student. Patient remains sedated on mechanical ventilation , FI 02 40%, PEEP 10. No new imaging. Tmax 102.6. WBC 8.0. Remains on Fentanyl and Diprivan drips. No obvious signs of pain during my visit. Albumin 1.6. . Family/friend interactions No family at bedside. Palliative care number previously provided. . Advance Directives Living Will: Never completed Health Care Surrogate: Never completed Durable Power of End Trimmer: Never completed Advance Directive Specifics Health Care Surrogate(s): No known written advance directives. Patient is currently incapacitated to make her own health care decisions, uncertain if she will regain capacity. According to [place] statutes, health care proxy decision-making falls to the patient's daughter, Loree. Patient is not legally . . Significant change in goals: FULL CODE. Family has elected to proceed with bronchoscopy and tracheostomy. . Objective Vital Signs Date Time Temp Pulse Resp B/P Pulse Ox O2 Delivery O2 Flow Rate FiO2 09/11/16 13:20 96 100 09/11/16 12:00 107 09/11/16 11:00 92 40 09/11/16 10:00 105 09/11/16 08:00 96 09/11/16 07:41 90 40 09/11/16 06:00 45 09/11/16 04:23 93 40 09/11/16 04:00 100.0 95 22 117/67 96 09/11/16 04:00 45 09/11/16 02:00 101 09/11/16 01:19 94 50 09/11/16 00:00 45 09/11/16 00:00 103 09/11/16 00:00 100.0 103 21 120/64 95 09/10/16 22:23 94 60 09/10/16 22:00 104 09/10/16 20:24 94 50 09/10/16 20:00 103 09/10/16 20:00 45 09/10/16 20:00 100.1 103 20 108/56 94 09/10/16 18:00 106 09/10/16 16:12 20 09/10/16 16:00 108 09/10/16 16:00 102.6 106 22 111/53 92 09/10/16 16:00 45 09/10/16 15:12 96 50 Physical Exam CONSTITUTIONAL/GENERAL: This is an adequately nourished patient, sedated on mechanical ventilation. TUBES/LINES/DRAINS: ETT, left IJ central line, PEG tube, Miller,podus boots, specialty bed. SKIN: No jaundice, rashes, or lesions. Ecchymoses on upper extremities. No wounds seen anteriorly. Skin temperature appropriate. Not diaphoretic. ENT: Unable to assess hearing. earing grossly normal. Nose without bleeding or purulent drainage. Throat difficult to visualize secondary to ETT, poor dentition. CARDIOVASCULAR: Regular rate and rhythm without murmurs, gallops, or rubs. RESPIRATORY/CHEST: Symmetric on mechanical vent. Few basilar crackles noted. GASTROINTESTINAL: Abdomen soft, non-tender, nondistended. No guarding. Bowel sounds present. GENITOURINARY: Without palpable bladder distension. Miller catheter in place. MUSCULOSKELETAL: Extremities with edema. No mottling or clubbing. NEUROLOGICAL: sedated. PSYCHIATRIC: sedated. . Diagnostic Tests Laboratory Laboratory Tests Test 09/09/16 09/09/16 09/09/16 09/09/16 01:48 04:40 18:00 22:15 Urine Color YELLOW (YELLW/STRAW) Urine Turbidity HAZY (CLEAR) Urine pH 5.5 (5.0-8.5) Urine Specific [place] 1.019 (1.002-1.035) Urine Protein 30 mg/dL (NEG-TRACE) Urine Glucose (UA) NEG mg/dL (NEG) Urine Ketones NEG mg/dL (NEG) Urine Occult Blood MOD (NEG) Urine Nitrite NEG (NEG) Urine Bilirubin NEG (NEG) Urine Urobilinogen LESS THAN 2.0 MG/DL (LESS THAN 2.0) Urine Leukocyte Esterase MOD (NEG) Urine RBC /hpf (0-3) Urine WBC 14 /hpf (0-5) Urine Squamous Epithelial 5 /hpf (0-5) Cells Urine Amorphous Sediment RARE Urine Bacteria FEW /hpf (NONE) Urine Mucus FEW /lpf (OCC) Microscopic Urinalysis Comment CATH-CULTURE IND White Blood Count 5.8 TH/MM3 (4.0-11.0) Red Blood Count 3.80 MIL/MM3 (4.00-5.30) Hemoglobin 10.6 GM/DL (11.6-15.3) Hematocrit 32.2 % (35.0-46.0) Mean Corpuscular Volume 84.7 FL (80.0-100.0) Mean Corpuscular Hemoglobin 27.8 PG (27.0-34.0) Mean Corpuscular Hemoglobin 32.8 % Concent (32.0-36.0) Red Cell Distribution Width 17.3 % (11.6-17.2) Platelet Count 318 TH/MM3 (150-450) Mean Platelet Volume 8.4 FL (7.0-11.0) Sodium Level 140 MEQ/L (136-145) Potassium Level 3.0 MEQ/L 4.3 MEQ/L 3.9 MEQ/L (3.5-5.1) (3.5-5.1) (3.5-5.1) Chloride Level 100 MEQ/L (98-107) Carbon Dioxide Level 30.2 MEQ/L (21.0-32.0) Anion Gap 10 MEQ/L (5-15) Blood Urea Nitrogen 17 MG/DL (7-18) Creatinine 0.49 MG/DL (0.50-1.00) Estimat Glomerular Filtration 131 ML/MIN Rate (>89) Random Glucose 149 MG/DL (74-106) Calcium Level 8.4 MG/DL (8.5-10.1) Magnesium Level 2.0 MG/DL (1.5-2.5) Test 09/10/16 09/10/16 09/11/16 05:00 13:10 06:40 White Blood Count 6.0 TH/MM3 8.0 TH/MM3 (4.0-11.0) (4.0-11.0) Red Blood Count 3.66 MIL/MM3 3.75 MIL/MM3 (4.00-5.30) (4.00-5.30) Hemoglobin 10.3 GM/DL 10.6 GM/DL (11.6-15.3) (11.6-15.3) Hematocrit 31.0 % 32.1 % (35.0-46.0) (35.0-46.0) Mean Corpuscular Volume 84.7 FL 85.5 FL (80.0-100.0) (80.0-100.0) Mean Corpuscular Hemoglobin 28.2 PG 28.3 PG (27.0-34.0) (27.0-34.0) Mean Corpuscular Hemoglobin 33.3 % 33.1 % Concent (32.0-36.0) (32.0-36.0) Red Cell Distribution Width 17.4 % 18.0 % (11.6-17.2) (11.6-17.2) Platelet Count 315 TH/MM3 256 TH/MM3 (150-450) (150-450) Mean Platelet Volume 8.4 FL 8.7 FL (7.0-11.0) (7.0-11.0) Neutrophils (%) (Auto) 71.6 % (16.0-70.0) Lymphocytes (%) (Auto) 15.9 % (9.0-44.0) Monocytes (%) (Auto) 8.0 % (0.0-8.0) Eosinophils (%) (Auto) 3.6 % (0.0-4.0) Basophils (%) (Auto) 0.9 % (0.0-2.0) Neutrophils # (Auto) 4.3 TH/MM3 (1.8-7.7) Lymphocytes # (Auto) 1.0 TH/MM3 (1.0-4.8) Monocytes # (Auto) 0.5 TH/MM3 (0-0.9) Eosinophils # (Auto) 0.2 TH/MM3 (0-0.4) Basophils # (Auto) 0.1 TH/MM3 (0-0.2) CBC Comment AUTO DIFF Differential Total Cells 100 Counted Neutrophils % (Manual) 55 % (16-70) Band Neutrophils % 19 % (0-6) Lymphocytes % 12 % (9-44) Monocytes % 3 % (0-8) Eosinophils % 2 % (0-4) Basophils % 3 % (0-2) Neutrophils # (Manual) 4.8 TH/MM3 (1.8-7.7) Metamyelocytes 2 % (0-1) Myelocytes 4 % (0-0) Nucleated Red Blood Cells 3 /100 WBC (0-0) Differential Comment FINAL DIFF MANUAL Platelet Estimate NORMAL (NORMAL) Platelet Morphology Comment NORMAL (NORMAL) Red Cell Morphology Comment NORMAL (NORMAL) Sodium Level 137 MEQ/L 136 MEQ/L (136-145) (136-145) Potassium Level 4.0 MEQ/L 3.6 MEQ/L (3.5-5.1) (3.5-5.1) Chloride Level 98 MEQ/L 97 MEQ/L (98-107) (98-107) Carbon Dioxide Level 32.1 MEQ/L 30.5 MEQ/L (21.0-32.0) (21.0-32.0) Anion Gap 7 MEQ/L (5-15) 9 MEQ/L (5-15) Blood Urea Nitrogen 22 MG/DL (7-18) 24 MG/DL (7-18) Creatinine 0.60 MG/DL 0.61 MG/DL (0.50-1.00) (0.50-1.00) Estimat Glomerular Filtration 104 ML/MIN 102 ML/MIN Rate (>89) (>89) Random Glucose 128 MG/DL 148 MG/DL (74-106) (74-106) Calcium Level 8.4 MG/DL 8.7 MG/DL (8.5-10.1) (8.5-10.1) Phosphorus Level 3.2 MG/DL (2.5-4.9) Magnesium Level 2.0 MG/DL (1.5-2.5) Total Bilirubin 0.4 MG/DL (0.2-1.0) Aspartate Amino Transf 36 U/L (15-37) (AST/SGOT) Alanine Aminotransferase 32 U/L (10-53) (ALT/SGPT) Alkaline Phosphatase 132 U/L (45-117) Ammonia 17 MCMOL/L (11-32) Total Creatine Kinase 14 U/L (26-192) Total Protein 6.3 GM/DL (6.4-8.2) Albumin 1.6 GM/DL (3.4-5.0) Stool C. difficile Toxin (PCR) NEGATIVE (NEGATIVE) Stl C. difficile Toxin PRESUMPTIVE Epiderm 027 NEGATIVE (NEGATIVE) Result Diagram: 09/11/16 0640 09/11/1640 Microbiology Microbiology Date/Time Procedure Status Source Growth 4/15/17 01:48 Urine Culture - Final Complete Urine Catheterized Urine Maribell Parapsilosis Viridans Streptococcus Grp 09/10/16 20:00 Aerobic Blood Culture - Preliminary Resulted Blood Peripheral NO GROWTH IN 1 DAY 09/10/16 20:00 Anaerobic Blood Culture - Preliminary Resulted Blood Peripheral NO GROWTH IN 1 DAY 09/10/16 20:07 Aerobic Blood Culture - Preliminary Resulted Blood Peripheral NO GROWTH IN 1 DAY 09/10/16 20:07 Anaerobic Blood Culture - Preliminary Resulted Blood Peripheral NO GROWTH IN 1 DAY 09/11/16 13:40 Gram Stain Received Bronchial Washings Bronchial Pending 09/11/16 13:40 Bronchial Culture Received Bronchial Washings Bronchial Pending 09/11/16 13:40 Acid Fast Stain Received Bronchial Washings Bronchial Pending 09/11/16 13:40 Mycobacterial Culture Received Bronchial Washings Bronchial Pending 09/11/16 13:40 Fungal Smear Received Bronchial Washings Bronchial Pending 09/11/16 13:40 Fungal Culture Received Bronchial Washings Bronchial Pending . Imaging Last Impressions Chest X-Ray 09/10/161911 Signed Impressions: Service Date/Time: Saturday, September 10, 2016 19:29 - CONCLUSION: 1. Left central line in superior vena cava without pneumothorax. Endotracheal tube unchanged. Rony Malloy MD Liver Ultrasound 09/08/16 0000 Signed Impressions: Service Date/Time: Thursday, September 08, 2016 08:45 - CONCLUSION: 1. Cholelithiasis with distended gallbladder. However, there are no associated findings present to diagnose acute cholecystitis. If there is persistent clinical concern for acute cholecystitis could evaluate for cystic duct obstruction with hepatobiliary scintigraphy. 2. Hepatomegaly with very heterogeneous echotexture and steatosis. Dejan Allison MD Gall Bladder Ultrasound 08/29/16 0000 Signed Impressions: Service Date/Time: Monday, August 29, 2016 15:21 - CONCLUSION: 1. Hepatomegaly with heterogeneous echotexture throughout the liver. 2. There is a large echogenic area near the neck of the gallbladder suggestive of a stone, but despite its large size, demonstrates no acoustic shadowing in any of the views. Taco Davidson MD CT Angiography 08/15/16 0000 Signed Impressions: Service Date/Time: Monday, August 15, 2016 02:33 - CONCLUSION: 1. No evidence for pulmonary embolism. 2. Multifocal consolidation greatest in the right lower lobe and associated adenopathy. Terry Estrada MD . Procedures * 09/01/16 PEG tube placed * 08/28/16 left subclavian central line placed * 08/18/16 right arterial line placed * 08/18/16 right IJ central line placed * 08/14/16 intubation . Assessment and Plan Disease Oriented Problem List: (1) ARDS (adult respiratory distress syndrome) (2) acute hypercapneic and hypoxemic respiratory failure (3) HCAP (healthcare-associated pneumonia) (4) CHF (congestive heart failure) (5) Hypokalemia (6) Morbid obesity (7) Hypothyroidism (8) Dyslipidemia (9) Metabolic encephalopathy (10) Sepsis (11) Elevated LFTs Symptom Scale: (1) Pain 0-10 Scale: Unable to quantify Comment: Sedated with fentanyl and propofol. (2) Dyspnea 0-10 Scale: Unable to quantify Comment: Remains on mechanical ventilation, sedated with fentanyl and propofol Pertinent Non-Medical Issues Psychosocial: single, significant other, not legally . As one daughter. Spiritual: [employer]. Legal: Patient is currently incapacitated to participate in healthcare decision- making. Single, does have a significant other not legally . Has one daughter. According to [facility] statutes, health care proxy decision-making falls to daughter Loree. Ethical issues impacting care: no known concerns at this time. . Important Contacts * Loree Marinelli, daughter (HCP): [phone] * Rony Marinelli, significant other: [phone] . Prognosis In speaking with Dr. Hoffman, he feels patient has pneumonia complicated by worsening COPD, while she will likely have a long road to recovery it is possible she will survive given her young age. She also remains high risk for further setbacks her decline given prolonged ICU stay and prolonged mechanical ventilation. . Code Status: Full Code Plan * Patient is currently incapacitated to participate in healthcare decision- making. Single, does have a significant other, not legally . Has one daughter. According to [place] statutes, health care proxy decision-making falls to daughter Loree. * FULL CODE. * Goals remain aggressive including FULL CODE, bronchoscopy and proceed with trach later this week. * SYMPTOMS: dyspnea: remains on mechanical ventilation, sedated with Fentanyl and Diprivan. Pain : secondary to infection, mech vent, recent PEG tube placement and bedbound status. No new medication recommendations at this time. * Palliative care will continue to follow to assist with symptom management and further clarification of treatment goals as needed. . Attestation To help prompt me to consider important information that might be impacting today's encounter and assessment, information from prior notes written by myself or my colleagues may have been "brought forward" into today's note. My signature on this note, however, is an attestation that I personally performed the exam, history, and/or decision-making noted today, and, unless otherwise indicated, the interactions with patient, family, and staff as well as the review of records all occurred today. I also attest that the listed assessment and stated plan reflect my best clinical judgment today based on the combination of historical information, prior notes, and today's exam/ interactions. When time spent is documented, it refers only to time spent today by the signer, or if indicated, combined time spent today by collaborating physician/nurse practitioner. RUMA COOPER Sep 11, 2016 14:48
[2016-09-11 14:53] LABS: BRONCHOAVEOLAR EOSINOPHILS 1 %; BRONCHOAVEOLAR HISTIOCYTES 2 %; BRONCHOAVEOLAR LYMPHOCYTES 7 %; BRONCHOAVEOLAR NEUTROPHILS 90 %
[2016-09-11] MEDS: PRAVASTATIN SOD 20 MG TAB PO SCH (20:54)
[2016-09-11] MEDS: VORICONAZOLE 200 MG TAB PO SCH (20:54)
[2016-09-12] VITALS (19 sets, daily range): BP systolic 105–141; BP diastolic 52–76; PULSE 92–117; RESP 17–21; TEMP 97.9–100.1; O2SAT 91–98
[2016-09-12] MEDS: ACETAMINOPHEN 325 MG TAB PO PRN (01:28)
[2016-09-12] MEDS: PROPOFOL 1000 MG/100 ML INJ 100 ML IV SCH ×3 (01:34→19:53)
[2016-09-12] MEDS: RESP: ALBUTEROL 2.5 MG/IPRATROPIUM 0.5 MG NEB (SCH) INH ×6 (03:23→22:44)
[2016-09-12] MEDS: INSULIN NovoLIN REGULAR SUPPLEMENTAL SCALE SQ SCH ×4 (04:00→22:00)
[2016-09-12] MEDS: CHLORHEXIDINE GLUCONATE 2 % 1 PACK (2 CLOTHS) TOP SCH (04:00)
[2016-09-12] MEDS: oxyCODONE HCL ORAL CONC 20 MG/ML SYRINGE PO SCH ×6 (04:22→23:28)
[2016-09-12 04:49] LABS: AUTOMATED NEUTROPHIL # 5.7 TH/MM3 (1.8-7.7); BASOPHIL % 0.6 % (0.0-2.0); EOSINOPHIL # 0.3 TH/MM3 (0-0.4); EOSINOPHIL % 3.8 % (0.0-4.0); LYMPH % 13.5 % (9.0-44.0); MEAN CELL VOLUME 85.9 FL (80.0-100.0); MEAN CORPUSCULAR HEMOGLOBIN 28.6 PG (27.0-34.0); MEAN CORPUSCULAR HGB CONC 33.3 % (32.0-36.0); MONO % 4.7 % (0.0-8.0); NEUT % 77.4 % (16.0-70.0); PLATELET COUNT 196 TH/MM3 (150-450); RED BLOOD COUNT 3.49 MIL/MM3 (4.00-5.30); RED CELL DISTRIBUTION WIDTH 17.1 % (11.6-17.2); WHITE BLOOD COUNT 7.4 TH/MM3 (4.0-11.0)
[2016-09-12 05:00] LABS: HEMO FLAGS AUTO DIFF
[2016-09-12 05:15] LABS: ALT (GPT) 38 U/L (10-53); ANION GAP 8 MEQ/L (5-15); AST (GOT) 42 U/L (15-37); BLOOD UREA NITROGEN 23 MG/DL (7-18); CHLORIDE 98 MEQ/L (98-107); GLOMERULAR FILTRATION RATE 106 ML/MIN (>89); POTASSIUM 3.8 MEQ/L (3.5-5.1); SODIUM (NA) 137 MEQ/L (136-145)
[2016-09-12 05:17] LABS: ALKALINE PHOSPHATASE 126 U/L (45-117); TOTAL BILIRUBIN ADULT 0.3 MG/DL (0.2-1.0)
[2016-09-12] MEDS: LEVOTHYROXINE SODIUM 200 MCG TAB PO SCH (05:51)
[2016-09-12] MEDS: QUEtiapine FUMARATE 25 MG TAB PO SCH ×3 (05:51→20:09)
[2016-09-12] MEDS: CEFEPIME INJ 2,000 MG in SODIUM CHLORIDE 0.9% INJ 100 ML IV SCH ×3 (05:52→22:22)
[2016-09-12 07:20] LABS: BANDS 30 % (0-6); BASOPHILS 1 % (0-2); EOSINOPHILS 5 % (0-4); NEUTROPHIL # MANUAL DIFF 6.5 TH/MM3 (1.8-7.7); POLYS (SEG NEUTROPHILS) 58 % (16-70); WBC DIFF SAMPLE 100
[2016-09-12 07:21] LABS: POLYCHROMASIA 2.4 % (0.0-1.9)
[2016-09-12 07:22] LABS: PLATELET ESTIMATE SMEAR NORMAL (NORMAL); PLATELET MORPHOLOGY NORMAL (NORMAL); SCAN/DIFF FINAL DIFF MANUAL
[2016-09-12] MEDS: VANCOMYCIN INJ 1,300 MG in SODIUM CHLORID 0.9% 500 ML INJ 500 ML IV SCH (07:36)
[2016-09-12] MEDS: LANSOPRAZOLE SOLUTAB 30 MG TAB NG SCH (07:37)
[2016-09-12] MEDS: HEPARIN SODIUM - SQ 10,000 UNITS/ML VIAL SQ SCH ×3 (07:37→23:28)
[2016-09-12] MEDS: POTASSIUM CHLORIDE 25 MEQ EFFERVESCENT TAB NG SCH (07:37)
[2016-09-12] MEDS: BUMETANIDE INJ 1 MG/4 ML VIAL IV PUSH SCH ×2 (07:37→17:31)
[2016-09-12] MEDS: SODIUM CHLORIDE 0.9% FLUSH 10 ML FLUSH IV FLUSH SCH ×2 (07:37→19:54)
[2016-09-12] MEDS: DOCUSATE SODIUM 100 MG CAP PO SCH ×2 (07:38→19:54)
[2016-09-12] MEDS: SODIUM CHLORIDE 0.9% FLUSH 10 ML FLUSH IVF SCH (07:38)
[2016-09-12] MEDS: SENNOSIDES SYRUP 8.8 MG/5 ML CUP PO SCH ×2 (07:38→19:54)
[2016-09-12] MEDS: BENEPROTEIN POWDER 1 PACK G-TUBE SCH ×3 (07:38→17:31)
[2016-09-12] MEDS ORDERED: PHARMACY ORDERED LAB ONE (07:45)
[2016-09-12] MEDS: RESP: TOBRAMYCIN SULFATE 80 MG/2 ML NEB NEB SCH ×2 (07:55→19:27)
[2016-09-12] MEDS: VORICONAZOLE 200 MG TAB PO SCH ×2 (10:10→19:53)
[2016-09-12] MEDS: ARTIFICIAL TEARS OPTH SOLN 15 ML BTL EACH EYE SCH ×3 (10:10→17:31)
[2016-09-12 10:46] LABS: BACTERIA, URINE RARE /hpf; BLOOD, URINE SMALL (NEG); GLUCOSE,URINE NEG (NEG); GRANULAR CAST, URINE 6 /lpf; KETONE, URINE NEG (NEG); MUCUS URINE FEW /lpf (OCC); NITRITE,URINE NEG (NEG); SQUAMOUS EPITHELIAL CELL URINE 2 /hpf (0-5); URINE COLOR LIGHT-YELLOW (YELLW/STRAW)
[2016-09-12 10:47] LABS: COMMENT (UR) CATH-CULTURE IND; CULTURE IF INDICATED CATH CULTURE IND
--- NOTE | 2016-09-12 12:54 | HHI.PR ---
Addendum to Inpatient Note Additional Information DC Vanco IV (no MRSA identified) possible cause of low grade fever. Continue Tobra nebs (for PSAE pneumonia) Continue Cefepime IV (for PSAE pneumonia) Continue Voriconazole (for Maribell Guillermi CAUTI: resistant to Fluconazole) Terri Uribe MD Sep 12, 2016 12:54
--- NOTE | 2016-09-12 13:38 | HHI.CCPN ---
Subjective Remarks/Hospital Course 56-year-old morbidly obese female brought in the emergency department in respiratory distress. She was intubated by ER attending. She has been sick for about a week with symptoms consistent with UTI. She's had fevers and chills. She's been short of breath. She's had fatigue. She has had a cough and chest pain with coughing. The family reports that she's been delirious for the last 3 days. 08/15 Patient is sedated with Diprivan, Versed, Fentanyl and intubated. CTA chest showed no PE multifocal consolidation greatest in RLL. Tmax 100.6 08/16 Patient is sedated with Diprivan and Fentanyl. Afebrile. CXR this morning showed increase consolidation. 08/17 Patient remains sedated and intubated. T:100.4 On PRVC/AC RR 18, Tv 500, IT :1.0 PEEP:10, FIO2 75% 08/18 Remains sedated and intubated. Afebrile. CXR this morning unchanged bibasilar infiltrates and effusions. 08/19 Patient was placed on rotoprone bed last night for proning sedated with Diprivan, Versed and Fentnayl in addition she is on Nimbex. On PRVC/AC RR 20, TV 400, IT:1.1, PEEP:14 and FIO2 80%. Afebrile. 08/20 Patient remains sedated and intubated. Remains on PRVC/AC mode with improvements in her oxygenation on FIO2 50% from 80% yesterday and PEEP:12. 08/21 Patient remains sedated and intubated. On PRVC/AC mode with RR 20, TV 400, IT:1.1, PEEP: 12 and FIO2 50%. Afebrile. 08/22 No acute events overnight. Remains sedated, intubated and on Nimbex.. T: 99.8. On PRVC mode with PEP: 12, FIO2 50%. CXR from yesterday showed better aeration, RLL infiltrate unchanged. 08/23 Chest x-ray worsening. Methylprednisolone taper to twice a day by pulmonary. The patient's FiO2 was found to be 100% this a.m., will continue to wean. 08/24: 1 desat episode yesterday when supine. still remains prone now. no vasopressors. sedated and paralyzed. 08/25: flolan added yesterday. fio2 down to 60%. remained supine all night. still on neuromuscular blockade. net -500cc/24h. 08/26: good diuresis. remained supine. fio2 70%. weaning flolan. remains with significant respiratory support and high peep despite 6L diuresis overnight. Cr still stable. 08/27: continues with good diuresis. net negative 3L/24h. fio2 down to 55%. flolan off. still high peep. not ready for SBT. more agitated today. Cr remains stable despite aggressive diuresis. 08/28: diuresis continues. -3.3L/24h. spiked fever overnight with a jump in wbc to 16 this AM. fio2 60%, but her pulmonary improvements have plateaued at this point. still on peep 12. 08/29: net -1.7L/24h. Cr starting to rise. still spiking fevers despite vanc/ cefepime added yesterday. wbc continues to rise. clinically appears infected, although unclear source. peep 10, fio2 60%. will likely need trach. 08/30: net +800cc, but Cr downtrending. appears clinically euvolemic. fever curve downtrending. wbc downtrending. on 40% fio2, peep 8 today. still following commands. 08/31: failed SBT after only 45 minutes yesterday. intubated for > 2 weeks at this point. will attempt to pursue trach/peg today. will continue with pulmonary strengthening. daily SBTs. 09/01 CXR showing increasing bibasilar infiltrate. Failed C Pap trial in 5 minutes due to severe tachypnea. PEG tube today. Family has not decided on trach yet 09/02: Patient febrile to 101.1, CXR increased infiltrate left upper lung and right lower lobe. Pancultured. Cefepime added today and one dose of vancomycin. Continues to fail C Pap trial due to tachypnea and respiratory distress 09/03: Remains hypoxemic on 75% oxygen with new pneumonia. Sputum culture 09/02/16 with GNR. Family agreeable for tracheostomy but patient is not stable at this point for trach 09/04: still on 70% fio2. still hypoxic. pneumonia persists. needs trach, but too unstable at this point. 09/05: remains on 75% fio2. pseudomonas sensitivities came back resistant to carbapenems, intermediate to levaquin. still spiking fevers. not clinically improving. wbc remains elevated. 09/06: Remains on 12 of PEEP and FiO2 75%. Zosyn and tobramycin started yesterday. WBC count trending down today 11.5 from 13.1. Remains heavily sedated for ventilator synchrony. MAXIMUM TEMPERATURE 100.3 09/07: Continues to spike fever. CXR unchanged. WBC count improving. PEEP 14. FiO2 60%. Will start IV Bumex 1mg IV q12 09/09: Tolerating tube feeds at goal. Afebrile. No documented bowel movement. Currently sedated on the ventilator 09/10: Tmax 99.7. Currently 99.4. No bowel movement yesterday. None document since 09/04. Arousable on the ventilator 09/11: Tmax 102.6. Currently 100. Positive BM. Arousable on the ventilator. Tolerating tube feeds. Central line changed yesterday. Plan for bronchoscopy at 1 PM. Subjective 09/12: Tmax 100.1. Currently afebrile. Follows commands today. Wiggles toes and give thumbs up appropriately. MRI brain canceled. Tolerating tube feeding with positive BM. Tracheostomy currently planned for . Objective Vital Signs Date Time Temp Pulse Resp B/P Pulse Ox O2 Delivery O2 Flow Rate FiO2 09/12/16 12:08 95 40 09/12/16 10:00 117 09/12/16 08:00 100.1 18 141/67 Intake and Output 09/11/16 09/11/16 09/12/16 08:00 16:00 00:00 Intake Total 1486 ml 1697 ml 830 ml Output Total 478 ml 1000 ml 1600 ml Balance 1008 ml 697 ml -770 ml Result Diagram: 09/12/16 0345 09/12/16 0345 Other Results Microbiology Date/Time Procedure Status Source Growth 09/12/16 09:00 Urine Culture Received Urine Catheterized Urine Pending 09/11/16 13:40 Gram Stain - Final Resulted Bronchial Washings Bronchial 09/11/16 13:40 Bronchial Culture - Preliminary Resulted Bronchial Washings Bronchial NO GROWTH IN 24 HOURS. 09/11/16 13:40 Fungal Smear - Final Resulted Bronchial Washings Bronchial NO FUNGAL ELEMENTS SEEN. 09/11/16 13:40 Fungal Culture Resulted Bronchial Washings Bronchial Pending 09/11/16 13:40 Acid Fast Stain - Final Resulted Bronchial Washings Bronchial NO ACID FAST BACILLI SEEN 09/11/16 13:40 Mycobacterial Culture Resulted Bronchial Washings Bronchial Pending 09/10/16 20:07 Aerobic Blood Culture - Preliminary Resulted Blood Peripheral NO GROWTH IN 2 DAYS 09/10/16 20:07 Anaerobic Blood Culture - Preliminary Resulted Blood Peripheral NO GROWTH IN 2 DAYS 09/09/16 01:48 Urine Culture - Final Complete Urine Catheterized Urine Maribell Parapsilosis Viridans Streptococcus Grp 09/07/16 18:00 Aerobic Blood Culture - Final Complete Blood Peripheral NO GROWTH IN 5 DAYS 09/07/16 18:00 Anaerobic Blood Culture - Final Complete Blood Peripheral NO GROWTH IN 5 DAYS Imaging Last Impressions Chest X-Ray 09/10/16 191 Signed Impressions: Service Date/Time: Saturday, September 10, 2016 19:29 - CONCLUSION: 1. Left central line in superior vena cava without pneumothorax. Endotracheal tube unchanged. Rony Malloy MD Liver Ultrasound 09/08/16 0000 Signed Impressions: Service Date/Time: Thursday, September 08, 2016 08:45 - CONCLUSION: 1. Cholelithiasis with distended gallbladder. However, there are no associated findings present to diagnose acute cholecystitis. If there is persistent clinical concern for acute cholecystitis could evaluate for cystic duct obstruction with hepatobiliary scintigraphy. 2. Hepatomegaly with very heterogeneous echotexture and steatosis. Dejan Allison MD Gall Bladder Ultrasound 08/29/16 0000 Signed Impressions: Service Date/Time: Monday, August 29, 2016 15:21 - CONCLUSION: 1. Hepatomegaly with heterogeneous echotexture throughout the liver. 2. There is a large echogenic area near the neck of the gallbladder suggestive of a stone, but despite its large size, demonstrates no acoustic shadowing in any of the views. Taco Davidson MD CT Angiography 08/15/16 0000 Signed Impressions: Service Date/Time: Monday, August 15, 2016 02:33 - CONCLUSION: 1. No evidence for pulmonary embolism. 2. Multifocal consolidation greatest in the right lower lobe and associated adenopathy. Terry Estrada MD Objective Remarks GENERAL: 56 yo female, critically ill currently orotracheally intubated SKIN: Warm and dry. Positive diffuse rash resolving HEAD: Normocephalic. EYES: No scleral icterus. No injection or drainage. NECK: trachea midline. Neck is obese. Left IJ clean dry and intact CARDIOVASCULAR: RRR. S1, S2 no S4 . No murmur RESPIRATORY: Breath sounds equal bilaterally. Tachypneic on the ventilator. Few basilar crackles. On 14 PEEP, 60% FiO2 GASTROINTESTINAL: Abdomen obese, soft, non-tender, no active bowel sounds MUSCULOSKELETAL: Trace bilateral lower extremity edema Neuro: RASS -2. follows commands very weakly on sedation hold. Currently sedated with propofol and fentanyl A/P Problem List: (1) ARDS (adult respiratory distress syndrome) ICD Code: J80 Status: Acute (2) CHF (congestive heart failure) ICD Code: I50.9 Status: Acute (3) Respiratory failure ICD Code: J96.90 Status: Acute (4) Pneumonia ICD Code: J18.9 Status: Acute Assessment and Plan PLAN: Neuro/Psych: Acute toxic metabolic encephalopathy Agitated delirium Fentanyl at 50 g an hour, propofol at 18 mics as per kilogram per minute for sedation/analgesia while intubated. Goal RASS -2. Holding Daily sedation vacation due to hypoxia. continue Seroquel 50mg po q8h for delirium and oxycodone 10mg po q4h femi for pain. EEG 09/09 moderate to severe encephalopathy Pulm: Acute hypercapnic and hypoxemic respiratory failure ARDS Pneumonia community-acquired, now with HCAP with carbapenem-resistant pseudomonas Likely JOE On PRVC/AC RR 16, TV 550, PEEP 10, IT: 1.1 and FIO2 0.40. Decrease FIO2 as tiki. for goal spo2 > 88% Bronchodilator therapy every 4 hours and as needed ICU vent bundle. Pulm is following- Dr. Beck ID request bronchoscopy for samples. Vent day 28, family agreeable for trach -currently stable resp thompson for trach. Gen surgery Dr. Ortega on board. Plan tracheostomy on CV: Hypertension Dyslipidemia Elevated troponin - likely strain Monitor HR and BP keep MAP>65mmg Echo 08/14 showed EF 65-70% mild AR/TR Home medications HCTZ 12.5 mill grams daily currently on hold while on Bumex. Resume when clinically indicated Home medication lovastatin 20 mg by mouth daily switch to Pravachol 20 mg a night. : Maintain Miller while on diuretics Bumex 1 mg twice a day and exchange Miller with funguria Monitor renal function, I/O's GI: Elevated transaminases Cholelithiasis Monitor LFT's ( trending down), on Protonix 40mg daily for GI prophylaxis US liver: Fatty liver and cholelithiasis. Repeat 09/08 revealed cholelithiasis with no acute signs of cholecystitis. Recommend a HIDA scan if indicated On TF Glucerna 1.5 @ 45ml/hr with 2 packets of been a protein 3 times a day minimal residual, restart after PEG. s/p PEG placement 09/01/[address] Ritter Prevacid 30 mg daily for GI prophylaxis Colace/Senokot for bowel regimen. Lactulose daily added ID: Pseudomonas pneumonia Funguria Pertinent cultures blood and sputum cx 08/15- NG strep pneumonia and Legionella urinary Ag negative Blood cultures 08/28: NGTD C Diff negative 08/28. Lines changed 08/28. Sputum 08/30 - Pseudomonas Sputum 09/02 PSAE, resistant to carbapenem, intermediate to Levaquin. 09/07 - urine -Maribell Guilliermondii 09/07 - blood cultures 2 - no growth 09/09 - urine -strep veridians, Maribell parapsilosis 09/10 - blood cultures 2 -no growth 09/11 - broch washings - pending 09/12 - urine - pending - Dcd cefepime/Levaquin on 09/05. started on Zosyn 4.5gm iv q6h and tobramycin 7 mg/kg/day. Zosyn discontinued secondary to rash Currently on cefepime and tobramycin aerosols per infectious disease Vfend day #2 200 every 12 - Consult ID due to recurrent fever. Add vancomycin Heme: Normocytic anemia Monitor CBC No indication for transfusion of blood product at this time Endo: Diabetes mellitus Hypothyroidism on SSI ( medium scale) for glycemic control On Synthroid 200mcg daily. TSH 1.37 FEN: Hypokalemia - resolved ICU electrolyte protocol initiated. KCl 25 mEq scheduled daily GI prophylaxis- Prevacid per tube. DVT prophylaxis Heparin SQ, SCDs Lines: - Left IJ TLC 09/10 to present - Miller - PEG 09/01/16 Critical Care: The total critical care time was 35 minutes. Time to perform other separately billable procedures was not included in the critical care time. Problem Qualifiers (1) CHF (congestive heart failure): Qualified Code: I50.9 - Acute congestive heart failure, unspecified congestive heart failure type (2) Respiratory failure: Qualified Code: J96.02 - Acute respiratory failure with hypercapnia (3) Pneumonia: Qualified Code: J18.9 - Pneumonia of both lungs due to infectious organism, unspecified part of lung Fadi Villa MD Sep 12, 2016 13:38
[2016-09-12] MEDS: SODIUM CHLORIDE 0.9% FLUSH 10 ML FLUSH IVF PRN (17:31)
[2016-09-12] MEDS: PRAVASTATIN SOD 20 MG TAB PO SCH (19:53)
[2016-09-13] VITALS (17 sets, daily range): BP systolic 102–126; BP diastolic 56–67; PULSE 97–118; RESP 17–24; TEMP 98.2–102; O2SAT 92–95
[2016-09-13] MEDS: oxyCODONE HCL ORAL CONC 20 MG/ML SYRINGE PO SCH ×5 (03:02→21:01)
[2016-09-13] MEDS: INSULIN NovoLIN REGULAR SUPPLEMENTAL SCALE SQ SCH ×4 (03:02→22:00)
[2016-09-13] MEDS: CHLORHEXIDINE GLUCONATE 2 % 1 PACK (2 CLOTHS) TOP SCH (03:02)
[2016-09-13] MEDS: RESP: ALBUTEROL 2.5 MG/IPRATROPIUM 0.5 MG NEB (SCH) INH ×5 (03:08→23:18)
[2016-09-13 03:26] LABS: AUTOMATED NEUTROPHIL # 6.6 TH/MM3 (1.8-7.7); BASOPHIL % 0.5 % (0.0-2.0); EOSINOPHIL # 0.5 TH/MM3 (0-0.4); EOSINOPHIL % 5.3 % (0.0-4.0); HEMATOCRIT 33.6 % (35.0-46.0); LYMPH % 13.1 % (9.0-44.0); LYMPHOCYTE # 1.2 TH/MM3 (1.0-4.8); MEAN CELL VOLUME 86.9 FL (80.0-100.0); MEAN CORPUSCULAR HEMOGLOBIN 28.1 PG (27.0-34.0); MEAN CORPUSCULAR HGB CONC 32.4 % (32.0-36.0); MONO % 6.1 % (0.0-8.0); PLATELET COUNT 151 TH/MM3 (150-450); RED BLOOD COUNT 3.87 MIL/MM3 (4.00-5.30); RED CELL DISTRIBUTION WIDTH 17.6 % (11.6-17.2); WHITE BLOOD COUNT 8.8 TH/MM3 (4.0-11.0)
[2016-09-13 03:31] LABS: HEMO FLAGS AUTO DIFF
[2016-09-13 03:56] LABS: BICARBONATE 30.2 MEQ/L (21.0-32.0); MAGNESIUM 2.2 MG/DL (1.5-2.5); POTASSIUM 4.7 MEQ/L (3.5-5.1)
[2016-09-13 04:14] LABS: BANDS 11 % (0-6); BASOPHILS 1 % (0-2); CORRECTED NUCLEATED RBC 2 /100 WBC (0-0); EOSINOPHILS 6 % (0-4); METAMYELOCYTES 1 % (0-1); MYELOCYTES 3 % (0-0); NEUTROPHIL # MANUAL DIFF 7.1 TH/MM3 (1.8-7.7); POLYS (SEG NEUTROPHILS) 66 % (16-70); WBC DIFF SAMPLE 100
[2016-09-13 04:15] LABS: PLATELET ESTIMATE SMEAR LOW (NORMAL); PLATELET MORPHOLOGY NORMAL (NORMAL); SCAN/DIFF FINAL DIFF MANUAL
[2016-09-13] MEDS: PROPOFOL 1000 MG/100 ML INJ 100 ML IV SCH ×2 (04:54→18:50)
[2016-09-13] MEDS: LEVOTHYROXINE SODIUM 200 MCG TAB PO SCH (05:15)
[2016-09-13] MEDS: QUEtiapine FUMARATE 25 MG TAB PO SCH ×3 (05:15→21:02)
[2016-09-13] MEDS: CEFEPIME INJ 2,000 MG in SODIUM CHLORIDE 0.9% INJ 100 ML IV SCH ×2 (05:16→14:27)
[2016-09-13] MEDS: LANSOPRAZOLE SOLUTAB 30 MG TAB NG SCH (08:34)
[2016-09-13] MEDS: BUMETANIDE INJ 1 MG/4 ML VIAL IV PUSH SCH (08:34)
[2016-09-13] MEDS: POTASSIUM CHLORIDE 25 MEQ EFFERVESCENT TAB NG SCH (08:34)
[2016-09-13] MEDS: HEPARIN SODIUM - SQ 10,000 UNITS/ML VIAL SQ SCH ×2 (08:35→17:30)
[2016-09-13] MEDS: ACETAMINOPHEN 325 MG TAB PO PRN ×2 (08:35→17:30)
[2016-09-13] MEDS: VORICONAZOLE 200 MG TAB PO SCH ×2 (08:35→21:02)
[2016-09-13] MEDS: ARTIFICIAL TEARS OPTH SOLN 15 ML BTL EACH EYE SCH ×3 (08:36→18:50)
[2016-09-13] MEDS: DOCUSATE SODIUM 100 MG CAP PO SCH ×2 (08:36→21:02)
[2016-09-13] MEDS: BENEPROTEIN POWDER 1 PACK G-TUBE SCH ×3 (08:36→18:00)
[2016-09-13] MEDS: SENNOSIDES SYRUP 8.8 MG/5 ML CUP PO SCH ×2 (08:37→21:01)
[2016-09-13] MEDS: SODIUM CHLORIDE 0.9% FLUSH 10 ML FLUSH IV FLUSH SCH ×2 (08:37→21:02)
[2016-09-13] MEDS: SODIUM CHLORIDE 0.9% FLUSH 10 ML FLUSH IVF SCH (08:37)
[2016-09-13] MEDS: RESP: TOBRAMYCIN SULFATE 80 MG/2 ML NEB NEB SCH ×2 (11:01→19:33)
--- NOTE | 2016-09-13 13:40 | HHI.CCPN ---
Subjective Remarks/Hospital Course 56-year-old morbidly obese female brought in the emergency department in respiratory distress. She was intubated by ER attending. She has been sick for about a week with symptoms consistent with UTI. She's had fevers and chills. She's been short of breath. She's had fatigue. She has had a cough and chest pain with coughing. The family reports that she's been delirious for the last 3 days. 08/15 Patient is sedated with Diprivan, Versed, Fentanyl and intubated. CTA chest showed no PE multifocal consolidation greatest in RLL. Tmax 100.6 08/16 Patient is sedated with Diprivan and Fentanyl. Afebrile. CXR this morning showed increase consolidation. 08/17 Patient remains sedated and intubated. T:100.4 On PRVC/AC RR 18, Tv 500, IT :1.0 PEEP:10, FIO2 75% 08/18 Remains sedated and intubated. Afebrile. CXR this morning unchanged bibasilar infiltrates and effusions. 08/19 Patient was placed on rotoprone bed last night for proning sedated with Diprivan, Versed and Fentnayl in addition she is on Nimbex. On PRVC/AC RR 20, TV 400, IT:1.1, PEEP:14 and FIO2 80%. Afebrile. 08/20 Patient remains sedated and intubated. Remains on PRVC/AC mode with improvements in her oxygenation on FIO2 50% from 80% yesterday and PEEP:12. 08/21 Patient remains sedated and intubated. On PRVC/AC mode with RR 20, TV 400, IT:1.1, PEEP: 12 and FIO2 50%. Afebrile. 08/22 No acute events overnight. Remains sedated, intubated and on Nimbex.. T: 99.8. On PRVC mode with PEP: 12, FIO2 50%. CXR from yesterday showed better aeration, RLL infiltrate unchanged. 08/23 Chest x-ray worsening. Methylprednisolone taper to twice a day by pulmonary. The patient's FiO2 was found to be 100% this a.m., will continue to wean. 08/24: 1 desat episode yesterday when supine. still remains prone now. no vasopressors. sedated and paralyzed. 08/25: flolan added yesterday. fio2 down to 60%. remained supine all night. still on neuromuscular blockade. net -500cc/24h. 08/26: good diuresis. remained supine. fio2 70%. weaning flolan. remains with significant respiratory support and high peep despite 6L diuresis overnight. Cr still stable. 08/27: continues with good diuresis. net negative 3L/24h. fio2 down to 55%. flolan off. still high peep. not ready for SBT. more agitated today. Cr remains stable despite aggressive diuresis. 08/28: diuresis continues. -3.3L/24h. spiked fever overnight with a jump in wbc to 16 this AM. fio2 60%, but her pulmonary improvements have plateaued at this point. still on peep 12. 08/29: net -1.7L/24h. Cr starting to rise. still spiking fevers despite vanc/ cefepime added yesterday. wbc continues to rise. clinically appears infected, although unclear source. peep 10, fio2 60%. will likely need trach. 08/30: net +800cc, but Cr downtrending. appears clinically euvolemic. fever curve downtrending. wbc downtrending. on 40% fio2, peep 8 today. still following commands. 08/31: failed SBT after only 45 minutes yesterday. intubated for > 2 weeks at this point. will attempt to pursue trach/peg today. will continue with pulmonary strengthening. daily SBTs. 09/01 CXR showing increasing bibasilar infiltrate. Failed C Pap trial in 5 minutes due to severe tachypnea. PEG tube today. Family has not decided on trach yet 09/02: Patient febrile to 101.1, CXR increased infiltrate left upper lung and right lower lobe. Pancultured. Cefepime added today and one dose of vancomycin. Continues to fail C Pap trial due to tachypnea and respiratory distress 09/03: Remains hypoxemic on 75% oxygen with new pneumonia. Sputum culture 09/02/16 with GNR. Family agreeable for tracheostomy but patient is not stable at this point for trach 09/04: still on 70% fio2. still hypoxic. pneumonia persists. needs trach, but too unstable at this point. 09/05: remains on 75% fio2. pseudomonas sensitivities came back resistant to carbapenems, intermediate to levaquin. still spiking fevers. not clinically improving. wbc remains elevated. 09/06: Remains on 12 of PEEP and FiO2 75%. Zosyn and tobramycin started yesterday. WBC count trending down today 11.5 from 13.1. Remains heavily sedated for ventilator synchrony. MAXIMUM TEMPERATURE 100.3 09/07: Continues to spike fever. CXR unchanged. WBC count improving. PEEP 14. FiO2 60%. Will start IV Bumex 1mg IV q12 09/09: Tolerating tube feeds at goal. Afebrile. No documented bowel movement. Currently sedated on the ventilator 09/10: Tmax 99.7. Currently 99.4. No bowel movement yesterday. None document since 09/04. Arousable on the ventilator 09/11: Tmax 102.6. Currently 100. Positive BM. Arousable on the ventilator. Tolerating tube feeds. Central line changed yesterday. Plan for bronchoscopy at 1 PM. 09/12: Tmax 100.1. Currently afebrile. Follows commands today. Wiggles toes and give thumbs up appropriately. MRI brain canceled. Tolerating tube feeding with positive BM. Tracheostomy currently planned for . Subjective 09/13: Tmax 102. Again on sedation vacation falls commands by wiggling toes bilaterally and giving thumbs up bilaterally appropriate. Tolerating tube feeding with positive BM. Tracheostomy planned for tomorrow with Dr. Ortega. Objective Vital Signs Date Time Temp Pulse Resp B/P Pulse Ox O2 Delivery O2 Flow Rate FiO2 09/13/16 12:00 104 09/13/16 11:02 94 40 09/13/16 09:35 22 09/13/16 04:00 98.4 113/56 Intake and Output 09/12/16 09/12/16 09/13/16 08:00 16:00 00:00 Intake Total 760 ml 1423 ml 445 ml Output Total 350 ml 900 ml 500 ml Balance 410 ml 523 ml -55 ml Result Diagram: 09/13/16 0305 09/13/16 0305 Other Results Microbiology Date/Time Procedure Status Source Growth 09/12/16 09:00 Urine Culture - Preliminary Resulted Urine Catheterized Urine IMMATURE GROWTH - REINCUBATE 09/11/16 13:40 Gram Stain - Final Resulted Bronchial Washings Bronchial 09/11/16 13:40 Bronchial Culture - Preliminary Resulted Bronchial Washings Bronchial NO GROWTH IN 24 HOURS. 09/11/16 13:40 Fungal Smear - Final Resulted Bronchial Washings Bronchial NO FUNGAL ELEMENTS SEEN. 09/11/16 13:40 Fungal Culture Resulted Bronchial Washings Bronchial Pending 09/11/16 13:40 Acid Fast Stain - Final Resulted Bronchial Washings Bronchial NO ACID FAST BACILLI SEEN 09/11/16 13:40 Mycobacterial Culture Resulted Bronchial Washings Bronchial Pending 09/10/16 20:07 Aerobic Blood Culture - Preliminary Resulted Blood Peripheral NO GROWTH IN 3 DAYS 09/10/16 20:07 Anaerobic Blood Culture - Preliminary Resulted Blood Peripheral NO GROWTH IN 3 DAYS 09/09/16 01:48 Urine Culture - Final Complete Urine Catheterized Urine Maribell Parapsilosis Viridans Streptococcus Grp Imaging Last Impressions Chest X-Ray 09/10/16 191 Signed Impressions: Service Date/Time: Saturday, September 10, 2016 19:29 - CONCLUSION: 1. Left central line in superior vena cava without pneumothorax. Endotracheal tube unchanged. Rony Malloy MD Liver Ultrasound 09/08/16 0000 Signed Impressions: Service Date/Time: Thursday, September 08, 2016 08:45 - CONCLUSION: 1. Cholelithiasis with distended gallbladder. However, there are no associated findings present to diagnose acute cholecystitis. If there is persistent clinical concern for acute cholecystitis could evaluate for cystic duct obstruction with hepatobiliary scintigraphy. 2. Hepatomegaly with very heterogeneous echotexture and steatosis. Dejan Allison MD Gall Bladder Ultrasound 08/29/16 0000 Signed Impressions: Service Date/Time: Monday, August 29, 2016 15:21 - CONCLUSION: 1. Hepatomegaly with heterogeneous echotexture throughout the liver. 2. There is a large echogenic area near the neck of the gallbladder suggestive of a stone, but despite its large size, demonstrates no acoustic shadowing in any of the views. Taco Davidson MD CT Angiography 08/15/16 0000 Signed Impressions: Service Date/Time: Monday, August 15, 2016 02:33 - CONCLUSION: 1. No evidence for pulmonary embolism. 2. Multifocal consolidation greatest in the right lower lobe and associated adenopathy. Terry Estrada MD Objective Remarks GENERAL: 56 yo female, critically ill currently orotracheally intubated SKIN: Warm and dry. Currently no rash HEAD: Normocephalic. EYES: No scleral icterus. No injection or drainage. NECK: trachea midline. Neck is obese. Left IJ clean dry and intact CARDIOVASCULAR: RRR. S1, S2 no S4 . No murmur RESPIRATORY: Breath sounds equal mahogany but very distant GASTROINTESTINAL: Abdomen obese, soft, non-tender, hypoactive active bowel sounds MUSCULOSKELETAL: Trace bilateral lower extremity edema Neuro: RASS -2. follows commands very weakly on sedation hold. Positive gag and corneal reflex. A/P Problem List: (1) ARDS (adult respiratory distress syndrome) ICD Code: J80 Status: Acute (2) CHF (congestive heart failure) ICD Code: I50.9 Status: Acute (3) Respiratory failure ICD Code: J96.90 Status: Acute (4) Pneumonia ICD Code: J18.9 Status: Acute Assessment and Plan PLAN: Neuro/Psych: Acute toxic metabolic encephalopathy Agitated delirium Fentanyl at 50 g an hour, propofol at 13 mics as per kilogram per minute for sedation/analgesia while intubated. Goal RASS -2. Daily sedation vacation continue Seroquel 50mg po q8h for delirium and oxycodone 10mg po q4h femi for pain. EEG 09/09 moderate to severe encephalopathy Pulm: Acute hypercapnic and hypoxemic respiratory failure ARDS Pneumonia community-acquired, now with HCAP with carbapenem-resistant pseudomonas Likely JOE On PRVC/AC RR 16, TV 550, PEEP 10, IT: 1.1 and FIO2 0.40. Decrease FIO2 as tiki. for goal spo2 > 88% Bronchodilator therapy every 4 hours and as needed ICU vent bundle. Pulm is following- Dr. Beck ID request bronchoscopy for samples. Vent day 29, family agreeable for trach -currently stable resp thompson for trach. Gen surgery Dr. Ortega on board. Plan tracheostomy on CV: Hypertension Dyslipidemia Elevated troponin - likely strain Monitor HR and BP keep MAP>65mmg Echo 08/14 showed EF 65-70% mild AR/TR Home medications HCTZ 12.5 mill grams daily currently on hold while on Bumex. Resume when clinically indicated Home medication lovastatin 20 mg by mouth daily switch to Pravachol 20 mg a night. : Maintain Miller while on diuretics Bumex 1 mg once a day and exchange Miller with funguria Monitor renal function, I/O's GI: Elevated transaminases Cholelithiasis Monitor LFT's ( trending down), on Protonix 40mg daily for GI prophylaxis US liver: Fatty liver and cholelithiasis. Repeat 09/08 revealed cholelithiasis with no acute signs of cholecystitis. Recommend a HIDA scan if indicated On TF Glucerna 1.5 @ 45ml/hr with 2 packets of been a protein 3 times a day minimal residual, restart after PEG. s/p PEG placement 09/01/[address] Ritter Prevacid 30 mg daily for GI prophylaxis Colace/Senokot for bowel regimen. Lactulose daily added ID: Pseudomonas pneumonia Funguria Pertinent cultures blood and sputum cx 08/15- NG strep pneumonia and Legionella urinary Ag negative Blood cultures 08/28: NGTD C Diff negative 08/28. Lines changed 08/28. Sputum 08/30 - Pseudomonas Sputum 09/02 PSAE, resistant to carbapenem, intermediate to Levaquin. 09/07 - urine -Maribell Guilliermondii 09/07 - blood cultures 2 - no growth 09/09 - urine -strep veridians, Maribell parapsilosis 09/10 - blood cultures 2 -no growth 09/11 - broch washings - pending 09/12 - urine - pending - Dcd cefepime/Levaquin on 09/05. started on Zosyn 4.5gm iv q6h and tobramycin 7 mg/kg/day. Zosyn discontinued secondary to rash Currently on cefepime and tobramycin aerosols per infectious disease Vfend day #3 200 every 12 - Consult ID due to recurrent fever. Add vancomycin Heme: Normocytic anemia Monitor CBC No indication for transfusion of blood product at this time Endo: Diabetes mellitus Hypothyroidism on SSI (medium scale) for glycemic control On Synthroid 200mcg daily. TSH 1.37 FEN: Hypokalemia - resolved ICU electrolyte protocol initiated. KCl 25 mEq scheduled daily GI prophylaxis- Prevacid per tube. DVT prophylaxis Heparin SQ, SCDs Lines: - Left IJ TLC 09/10 to present - Miller - PEG 09/01/16 Critical Care: The total critical care time was 35 minutes. Time to perform other separately billable procedures was not included in the critical care time. Problem Qualifiers (1) CHF (congestive heart failure): Qualified Code: I50.9 - Acute congestive heart failure, unspecified congestive heart failure type (2) Respiratory failure: Qualified Code: J96.02 - Acute respiratory failure with hypercapnia (3) Pneumonia: Qualified Code: J18.9 - Pneumonia of both lungs due to infectious organism, unspecified part of lung aFdi Villa MD Sep 13, 2016 13:40
[2016-09-13] MEDS: fentaNYL DRIP 250 ML IV SCH (14:28)
--- NOTE | 2016-09-13 15:11 | HHI.IDPN ---
Subjective Subjective Remarks Ms. Clayton is a 56 year old female with past medical history of Morbid Obesity , hypothyroidism, obstructive sleep apnea, and high cholesterol. Patient reportedly is on oxygen at home 2L, and was supposed to be using BiPAP at night for JOE but was reportedly non compliant. Patient presented to [facility] emergency department with family on 08/14/16 for evaluation of respiratory distress. Review of notes indicate the patient had reported being sick for one week prior to presentation with progressively worsening symptoms including fever , chills, shortness of breath, cough, chest pain with coughing, increase confusion and fatigue. Initial evaluation in the ED revealed temp of 100.6 F, HR 106, RR 36, BP 178/103, O2 Sats 100% FiO2. Her WBC was 13.6, Plts 423, Cr 0.77. LFTs were elevated total bilirubin 0.4, AST 77, ALT 72, Alk phos 143. Patient had sepsis workup initiated. UA was negative CXR with bilateral infiltrated. Patient is admitted to ICU with respiratory failure, CHF, pneumonia, probable underlying COPD. Patient was intubated and placed on mechanical ventilation. Pulmonology, Dr. Beck was consulted for respiratory failure/sleep apnea and continues to follow. 08/15/16 CTA showed no evidence of pulmonary embolism, multifocal consolidation greatest right lower lobe. Hospital course has been complicated by continued high oxygen ventilator needs, ARDS and inability to wean from vent. Patient was started on Zosyn IV and Tobramycin pharmacy consult placed by [employer]. ID consulted for fever in patient being treated for PSAE Pneumonia. Persistent fevers 102 F this am per RN. No diarrhea Not much secretions. small, mcpherson mostly oral. UO ok remains on vent. Antibiotics Cefepime IV tobramycin nebs Diflucan Lines Line sites with no e.o infection Past Medical History reviewed. Allergies: Coded Allergies: No Known Allergies (Verified , 08/14/16) Objective . Vital Signs Date Time Temp Pulse Resp B/P Pulse Ox O2 Delivery O2 Flow Rate FiO2 09/13/16 13:05 18 09/13/16 12:00 45 09/13/16 12:00 100.8 104 21 117/58 93 09/13/16 12:00 104 09/13/16 11:02 94 40 09/13/16 10:00 108 09/13/16 09:35 22 09/13/16 08:00 102.0 110 20 126/67 92 09/13/16 08:00 45 09/13/16 08:00 110 09/13/16 07:59 93 40 09/13/16 06:00 110 09/13/16 04:00 98.4 114 19 113/56 93 09/13/16 04:00 114 09/13/16 04:00 40 09/13/16 03:09 94 40 09/13/16 02:00 115 09/13/16 00:00 112 09/13/16 00:00 40 09/13/16 00:00 98.2 112 17 118/65 94 09/12/16 22:45 94 40 09/12/16 22:00 111 09/12/16 20:00 98.5 115 21 111/76 94 09/12/16 20:00 40 09/12/16 20:00 115 09/12/16 19:27 94 40 09/12/16 18:00 109 09/12/16 16:48 93 40 09/12/16 16:00 40 09/12/16 16:00 115 09/12/16 16:00 100.0 115 19 115/72 91 09/12/16 09/12/16 09/13/16 15:00 23:00 07:00 Intake Total 1423 ml 445 ml 585 ml Output Total 900 ml 500 ml 300 ml Balance 523 ml -55 ml 285 ml Intake Oral 0 ml 0 ml IV Total 686 ml 105 ml 220 ml Tube Feeding 377 ml 280 ml 305 ml Other 360 ml 60 ml 60 ml Output Urine Total 900 ml 500 ml 300 ml # Bowel Movements 0 0 0 . Laboratory Tests Test 09/12/16 09/13/16 03:45 03:05 White Blood Count 7.4 TH/MM3 8.8 TH/MM3 Red Blood Count 3.49 MIL/MM3 3.87 MIL/MM3 Hemoglobin 10.0 GM/DL 10.9 GM/DL Hematocrit 30.0 % 33.6 % Mean Corpuscular Volume 85.9 FL 86.9 FL Mean Corpuscular Hemoglobin 28.6 PG 28.1 PG Mean Corpuscular Hemoglobin 33.3 % 32.4 % Concent Red Cell Distribution Width 17.1 % 17.6 % Platelet Count 196 TH/MM3 151 TH/MM3 Mean Platelet Volume 9.2 FL 9.3 FL Neutrophils (%) (Auto) 77.4 % 75.0 % Lymphocytes (%) (Auto) 13.5 % 13.1 % Monocytes (%) (Auto) 4.7 % 6.1 % Eosinophils (%) (Auto) 3.8 % 5.3 % Basophils (%) (Auto) 0.6 % 0.5 % Neutrophils # (Auto) 5.7 TH/MM3 6.6 TH/MM3 Lymphocytes # (Auto) 1.0 TH/MM3 1.2 TH/MM3 Monocytes # (Auto) 0.4 TH/MM3 0.5 TH/MM3 Eosinophils # (Auto) 0.3 TH/MM3 0.5 TH/MM3 Basophils # (Auto) 0.0 TH/MM3 0.0 TH/MM3 CBC Comment AUTO DIFF AUTO DIFF Differential Total Cells 100 100 Counted Neutrophils % (Manual) 58 % 66 % Band Neutrophils % 30 % 11 % Lymphocytes % 3 % 8 % Monocytes % 3 % 4 % Eosinophils % 5 % 6 % Basophils % 1 % 1 % Neutrophils # (Manual) 6.5 TH/MM3 7.1 TH/MM3 Differential Comment FINAL DIFF FINAL DIFF MANUAL MANUAL Platelet Estimate NORMAL LOW Platelet Morphology Comment NORMAL NORMAL Polychromasia 2.4 % Metamyelocytes 1 % Myelocytes 3 % Nucleated Red Blood Cells 2 /100 WBC Red Cell Morphology Comment NORMAL Laboratory Tests Test 09/12/16 09/13/16 03:45 03:05 Sodium Level 137 MEQ/L 136 MEQ/L Potassium Level 3.8 MEQ/L 4.7 MEQ/L Chloride Level 98 MEQ/L 98 MEQ/L Carbon Dioxide Level 31.0 MEQ/L 30.2 MEQ/L Anion Gap 8 MEQ/L 8 MEQ/L Blood Urea Nitrogen 23 MG/DL 30 MG/DL Creatinine 0.59 MG/DL 0.79 MG/DL Estimat Glomerular Filtration 106 ML/MIN 76 ML/MIN Rate Random Glucose 110 MG/DL 145 MG/DL Calcium Level 8.1 MG/DL 8.2 MG/DL Phosphorus Level 3.4 MG/DL 3.4 MG/DL Magnesium Level 2.0 MG/DL 2.2 MG/DL Total Bilirubin 0.3 MG/DL Aspartate Amino Transf 42 U/L (AST/SGOT) Alanine Aminotransferase 38 U/L (ALT/SGPT) Alkaline Phosphatase 126 U/L Total Protein 5.8 GM/DL Albumin 1.6 GM/DL Microbiology Date/Time Procedure Status Source Growth 09/10/16 20:00 Aerobic Blood Culture - Preliminary Resulted Blood Peripheral NO GROWTH IN 3 DAYS 09/10/16 20:00 Anaerobic Blood Culture - Preliminary Resulted Blood Peripheral NO GROWTH IN 3 DAYS 09/10/16 20:07 Aerobic Blood Culture - Preliminary Resulted Blood Peripheral NO GROWTH IN 3 DAYS 09/10/16 20:07 Anaerobic Blood Culture - Preliminary Resulted Blood Peripheral NO GROWTH IN 3 DAYS 09/11/16 13:40 Gram Stain - Final Complete Bronchial Washings Bronchial 09/11/16 13:40 Bronchial Culture - Final Complete Bronchial Washings Bronchial NO GROWTH IN 48 HOURS. 09/11/16 13:40 Acid Fast Stain - Final Resulted Bronchial Washings Bronchial NO ACID FAST BACILLI SEEN 09/11/16 13:40 Mycobacterial Culture Resulted Bronchial Washings Bronchial Pending 09/11/16 13:40 Fungal Smear - Final Resulted Bronchial Washings Bronchial NO FUNGAL ELEMENTS SEEN. 09/11/16 13:40 Fungal Culture Resulted Bronchial Washings Bronchial Pending 09/12/16 09:00 Urine Culture - Preliminary Resulted Urine Catheterized Urine IMMATURE GROWTH - REINCUBATE Imaging Last Impressions Liver Ultrasound 09/08/16 0000 Signed Impressions: Service Date/Time: Thursday, September 08, 2016 08:45 - CONCLUSION: 1. Cholelithiasis with distended gallbladder. However, there are no associated findings present to diagnose acute cholecystitis. If there is persistent clinical concern for acute cholecystitis could evaluate for cystic duct obstruction with hepatobiliary scintigraphy. 2. Hepatomegaly with very heterogeneous echotexture and steatosis. Dejan Allison MD Chest X-Ray 09/06/16 0000 Signed Impressions: Service Date/Time: Tuesday, September 06, 2016 11:09 - CONCLUSION: No significant change has occurred. Terry Estrada MD Gall Bladder Ultrasound 08/29/16 0000 Signed Impressions: Service Date/Time: Monday, August 29, 2016 15:21 - CONCLUSION: 1. Hepatomegaly with heterogeneous echotexture throughout the liver. 2. There is a large echogenic area near the neck of the gallbladder suggestive of a stone, but despite its large size, demonstrates no acoustic shadowing in any of the views. Taco Davidson MD CT Angiography 08/15/16 0000 Signed Impressions: Service Date/Time: Maryse, August 15, 2016 02:33 - CONCLUSION: 1. No evidence for pulmonary embolism. 2. Multifocal consolidation greatest in the right lower lobe and associated adenopathy. Terry Estrada MD Physical Exam GENERAL: Morbidly obese CF patient, in no apparent distress. SKIN: Skin folds with erythema noted. HEAD: Atraumatic. Normocephalic. No temporal or scalp tenderness. EYES: Pupils equal round and reactive. Extraocular motions intact. No scleral icterus. No injection or drainage. ENT: Intubated. NECK: Large neck. Intubated. Supple, nontender, no meningeal signs. CARDIOVASCULAR: RRR. RESPIRATORY: Clear to auscultation. Breath sounds equal bilaterally. GASTROINTESTINAL: Abdomen soft, non-tender, nondistended. MUSCULOSKELETAL: Extremities without clubbing, cyanosis. Edema. NEUROLOGICAL: Sedated. IV line sites with no e.o infection. Miller in place with clear urine. Assessment & Plan Remarks Sepsis present on admission. Now with SIRS/Sepsis new. New Rash: ? cause for SIRS. Drug induced: Zosyn IV most likely. Reviewed JUL. PSAE pneumonia: pansensitive. R/o HCAP/VAP. Morbid Obesity (BMI 45.8 kg/m2) Obstructive Sleep Apnea (supposed to be on CPAP at home and home oxygen 2L) Acute respiratory failure vent dependent. Acute metabolic encephalopathy: infection, meds. Recs: Continue Cefepime IV Continue Tobramycin nebs. Maribell G can be resistant to Diflucan. Miller changed already. Continue Voriconazole. Check Doppler UE and Doppler LE. Check Procalcitonin will help with trending to assess response to antibiotics and deescalation. Follow cultures Follow clinically. d/w Terri Basilio MD Sep 13, 2016 15:11
[2016-09-13] MEDS: PRAVASTATIN SOD 20 MG TAB PO SCH (21:02)
[2016-09-13] MEDS: DOCUSATE SODIUM 100 MG/10 ML UDC PO SCH (21:30)
--- NOTE | 2016-09-13 23:33 | RADRPT ---
EXAM DATE/TIME: 09/13/2016 22:33 CORRECTION Corrected on: February 21, 2017; Added Bilateral leg swelling to indications [facility] COMPARISON: No previous studies available for comparison. INDICATIONS : Bilateral leg swelling. MEDICAL HISTORY : Hypercholesterolemia. Hypothyroidism. Hypertension. Apnea. SURGICAL HISTORY : Hysterectomy.Tubal ligation. ENCOUNTER: Initial ACUITY: 1 day PAIN SCORE: Non-responsive LOCATION: Bilateral legs. TECHNIQUE: Venous ultrasound of the left and right leg was performed from the inguinal ligament to the proximal calf. Real-time, color Doppler and spectral tracing, compression and augmentation techniques were us ed. FINDINGS: RIGHT LEG: There is normal compressibility of the deep venous system from the inguinal region to the proximal ca lf. No echogenic clot is seen in the lumen of the common femoral, femoral, popliteal, and posterior tibial veins. There is a normal response of the venous system to proximal and distal augmentation an d respiration. LEFT LEG: There is normal compressibility of the deep venous system from the inguinal region to the proximal ca lf. No echogenic clot is seen in the lumen of the common femoral, femoral, popliteal, and posterior tibial veins. There is a normal response of the venous system to proximal and distal augmentation an d respiration. CONCLUSION: Normal examination. Leonides Mason MD on September 13, 2016 at 23:31 Board Certified Radiologist. This report was verified electronically.
[2016-09-14] VITALS (18 sets, daily range): BP systolic 103–155; BP diastolic 55–69; PULSE 90–122; RESP 17–28; TEMP 98–100.5; O2SAT 91–95
[2016-09-14] MEDS: HEPARIN SODIUM - SQ 10,000 UNITS/ML VIAL SQ SCH ×3 (00:11→15:32)
[2016-09-14] MEDS: CEFEPIME INJ 2,000 MG in SODIUM CHLORIDE 0.9% INJ 100 ML IV SCH ×3 (00:12→13:58)
[2016-09-14] MEDS: oxyCODONE HCL ORAL CONC 20 MG/ML SYRINGE PO SCH ×6 (00:12→21:32)
[2016-09-14] MEDS: PROPOFOL 1000 MG/100 ML INJ 100 ML IV SCH ×3 (01:06→09:08)
[2016-09-14] MEDS: RESP: ALBUTEROL 2.5 MG/IPRATROPIUM 0.5 MG NEB (SCH) INH ×6 (02:58→23:51)
[2016-09-14 03:56] LABS: HEMATOCRIT 32.2 % (35.0-46.0); MEAN CELL VOLUME 86.7 FL (80.0-100.0); MEAN CORPUSCULAR HEMOGLOBIN 28.5 PG (27.0-34.0); MEAN CORPUSCULAR HGB CONC 32.9 % (32.0-36.0); PLATELET COUNT 152 TH/MM3 (150-450); RED BLOOD COUNT 3.71 MIL/MM3 (4.00-5.30); RED CELL DISTRIBUTION WIDTH 17.7 % (11.6-17.2); WHITE BLOOD COUNT 10.1 TH/MM3 (4.0-11.0)
[2016-09-14] MEDS: CHLORHEXIDINE GLUCONATE 2 % 1 PACK (2 CLOTHS) TOP SCH (04:00)
[2016-09-14] MEDS: INSULIN NovoLIN REGULAR SUPPLEMENTAL SCALE SQ SCH ×4 (04:00→20:00)
[2016-09-14 04:19] LABS: REVIEW FLAG FINAL
[2016-09-14 04:20] LABS: BICARBONATE 29.8 MEQ/L (21.0-32.0); POTASSIUM 5.7 MEQ/L (3.5-5.1)
[2016-09-14 04:53] LABS: APTT (PATIENT) 27.1 SEC (24.3-30.1); PROTHROMBIN TIME - PATIENT 10.9 SEC (9.8-11.6)
--- NOTE | 2016-09-14 05:05 | RADRPT ---
EXAM DATE/TIME: 09/14/2016 03:21 [facility] COMPARISON: CHEST SINGLE AP, September 11, 2016, 13:42. INDICATIONS : Shortness of breath, possible pulmonary disease. MEDICAL HISTORY : Hypertension. Apnea SURGICAL HISTORY : Gastric tube ENCOUNTER: Subsequent ACUITY: 2 weeks PAIN SCORE: Non-responsive. LOCATION: Bilateral chest FINDINGS: A single view of the chest demonstrates the endotracheal tube and left IJ central line are both in go od position. As the minimal airspace disease in the right lung base and the left lung apex. The card iomediastinal contours are unremarkable. Osseous structures are intact. CONCLUSION: Infiltrates left upper lobe and right lung base slightly more pronounced than onn the previous film. Endotracheal tube in good position. Leonides Mason MD on September 14, 2016 at 5:03 Board Certified Radiologist. This report was verified electronically.
[2016-09-14] MEDS: RESP: TOBRAMYCIN SULFATE 80 MG/2 ML NEB NEB SCH ×2 (08:00→20:05)
[2016-09-14] MEDS: BENEPROTEIN POWDER 1 PACK G-TUBE SCH ×3 (09:00→18:15)
[2016-09-14] MEDS: ARTIFICIAL TEARS OPTH SOLN 15 ML BTL EACH EYE SCH ×3 (09:00→18:15)
[2016-09-14] MEDS ORDERED: BUMETANIDE INJ 1 MG/4 ML VIAL IV PUSH SCH (09:00)
[2016-09-14] MEDS: POTASSIUM CHLORIDE 25 MEQ EFFERVESCENT TAB NG SCH (09:00)
[2016-09-14] MEDS: SENNOSIDES SYRUP 8.8 MG/5 ML CUP PO SCH ×2 (09:09→21:30)
[2016-09-14] MEDS: SODIUM CHLORIDE 0.9% FLUSH 10 ML FLUSH IV FLUSH SCH ×2 (09:09→21:33)
[2016-09-14] MEDS: LANSOPRAZOLE SOLUTAB 30 MG TAB NG SCH (09:09)
[2016-09-14] MEDS: VORICONAZOLE 200 MG TAB PO SCH ×2 (09:09→21:32)
[2016-09-14] MEDS: DOCUSATE SODIUM 100 MG/10 ML UDC PO SCH ×2 (09:09→21:30)
--- NOTE | 2016-09-14 10:17 | HHI.CCPN ---
Subjective Remarks/Hospital Course 56-year-old morbidly obese female brought in the emergency department in respiratory distress. She was intubated by ER attending. She has been sick for about a week with symptoms consistent with UTI. She's had fevers and chills. She's been short of breath. She's had fatigue. She has had a cough and chest pain with coughing. The family reports that she's been delirious for the last 3 days. 08/15 Patient is sedated with Diprivan, Versed, Fentanyl and intubated. CTA chest showed no PE multifocal consolidation greatest in RLL. Tmax 100.6 08/16 Patient is sedated with Diprivan and Fentanyl. Afebrile. CXR this morning showed increase consolidation. 08/17 Patient remains sedated and intubated. T:100.4 On PRVC/AC RR 18, Tv 500, IT :1.0 PEEP:10, FIO2 75% 08/18 Remains sedated and intubated. Afebrile. CXR this morning unchanged bibasilar infiltrates and effusions. 08/19 Patient was placed on rotoprone bed last night for proning sedated with Diprivan, Versed and Fentnayl in addition she is on Nimbex. On PRVC/AC RR 20, TV 400, IT:1.1, PEEP:14 and FIO2 80%. Afebrile. 08/20 Patient remains sedated and intubated. Remains on PRVC/AC mode with improvements in her oxygenation on FIO2 50% from 80% yesterday and PEEP:12. 08/21 Patient remains sedated and intubated. On PRVC/AC mode with RR 20, TV 400, IT:1.1, PEEP: 12 and FIO2 50%. Afebrile. 08/22 No acute events overnight. Remains sedated, intubated and on Nimbex.. T: 99.8. On PRVC mode with PEP: 12, FIO2 50%. CXR from yesterday showed better aeration, RLL infiltrate unchanged. 08/23 Chest x-ray worsening. Methylprednisolone taper to twice a day by pulmonary. The patient's FiO2 was found to be 100% this a.m., will continue to wean. 08/24: 1 desat episode yesterday when supine. still remains prone now. no vasopressors. sedated and paralyzed. 08/25: flolan added yesterday. fio2 down to 60%. remained supine all night. still on neuromuscular blockade. net -500cc/24h. 08/26: good diuresis. remained supine. fio2 70%. weaning flolan. remains with significant respiratory support and high peep despite 6L diuresis overnight. Cr still stable. 08/27: continues with good diuresis. net negative 3L/24h. fio2 down to 55%. flolan off. still high peep. not ready for SBT. more agitated today. Cr remains stable despite aggressive diuresis. 08/28: diuresis continues. -3.3L/24h. spiked fever overnight with a jump in wbc to 16 this AM. fio2 60%, but her pulmonary improvements have plateaued at this point. still on peep 12. 08/29: net -1.7L/24h. Cr starting to rise. still spiking fevers despite vanc/ cefepime added yesterday. wbc continues to rise. clinically appears infected, although unclear source. peep 10, fio2 60%. will likely need trach. 08/30: net +800cc, but Cr downtrending. appears clinically euvolemic. fever curve downtrending. wbc downtrending. on 40% fio2, peep 8 today. still following commands. 08/31: failed SBT after only 45 minutes yesterday. intubated for > 2 weeks at this point. will attempt to pursue trach/peg today. will continue with pulmonary strengthening. daily SBTs. 09/01 CXR showing increasing bibasilar infiltrate. Failed C Pap trial in 5 minutes due to severe tachypnea. PEG tube today. Family has not decided on trach yet 09/02: Patient febrile to 101.1, CXR increased infiltrate left upper lung and right lower lobe. Pancultured. Cefepime added today and one dose of vancomycin. Continues to fail C Pap trial due to tachypnea and respiratory distress 09/03: Remains hypoxemic on 75% oxygen with new pneumonia. Sputum culture 09/02/16 with GNR. Family agreeable for tracheostomy but patient is not stable at this point for trach 09/04: still on 70% fio2. still hypoxic. pneumonia persists. needs trach, but too unstable at this point. 09/05: remains on 75% fio2. pseudomonas sensitivities came back resistant to carbapenems, intermediate to levaquin. still spiking fevers. not clinically improving. wbc remains elevated. 09/06: Remains on 12 of PEEP and FiO2 75%. Zosyn and tobramycin started yesterday. WBC count trending down today 11.5 from 13.1. Remains heavily sedated for ventilator synchrony. MAXIMUM TEMPERATURE 100.3 09/07: Continues to spike fever. CXR unchanged. WBC count improving. PEEP 14. FiO2 60%. Will start IV Bumex 1mg IV q12 09/09: Tolerating tube feeds at goal. Afebrile. No documented bowel movement. Currently sedated on the ventilator 09/10: Tmax 99.7. Currently 99.4. No bowel movement yesterday. None document since 09/04. Arousable on the ventilator 09/11: Tmax 102.6. Currently 100. Positive BM. Arousable on the ventilator. Tolerating tube feeds. Central line changed yesterday. Plan for bronchoscopy at 1 PM. 09/12: Tmax 100.1. Currently afebrile. Follows commands today. Wiggles toes and give thumbs up appropriately. MRI brain canceled. Tolerating tube feeding with positive BM. Tracheostomy currently planned for . Subjective 09/13: Tmax 102. Again on sedation vacation falls commands by wiggling toes bilaterally and giving thumbs up bilaterally appropriate. Tolerating tube feeding with positive BM. Tracheostomy planned for tomorrow with Dr. Ortega. 09/14: Low grade fever. CXR showing more prominent infiltrate on the right lower lobe and left upper lobe. Wbc trending up still in normal range. Patient is on 40% FiO2 but continues to fail CPAP due to tachypnea Objective Vital Signs Date Time Temp Pulse Resp B/P Pulse Ox O2 Delivery O2 Flow Rate FiO2 09/14/16 07:25 95 40 09/14/16 06:00 94 09/14/16 04:00 99.9 22 107/56 Intake and Output 09/13/16 09/13/16 09/14/16 08:00 16:00 00:00 Intake Total 585 ml 885 ml 693 ml Output Total 300 ml 400 ml 400 ml Balance 285 ml 485 ml 293 ml Result Diagram: 09/14/16 0340 09/14/16 0340 Other Results Microbiology Date/Time Procedure Status Source Growth 09/11/16 13:40 Gram Stain - Final Complete Bronchial Washings Bronchial 09/11/16 13:40 Bronchial Culture - Final Complete Bronchial Washings Bronchial NO GROWTH IN 48 HOURS. Imaging Last Impressions Chest X-Ray 09/10/16 1912 Signed Impressions: Service Date/Time: Saturday, September 10, 2016 19:29 - CONCLUSION: 1. Left central line in superior vena cava without pneumothorax. Endotracheal tube unchanged. Rony Malloy MD Liver Ultrasound 09/08/16 0000 Signed Impressions: Service Date/Time: Thursday, September 08, 2016 08:45 - CONCLUSION: 1. Cholelithiasis with distended gallbladder. However, there are no associated findings present to diagnose acute cholecystitis. If there is persistent clinical concern for acute cholecystitis could evaluate for cystic duct obstruction with hepatobiliary scintigraphy. 2. Hepatomegaly with very heterogeneous echotexture and steatosis. Dejan Allison MD Gall Bladder Ultrasound 08/29/16 0000 Signed Impressions: Service Date/Time: Monday, August 29, 2016 15:21 - CONCLUSION: 1. Hepatomegaly with heterogeneous echotexture throughout the liver. 2. There is a large echogenic area near the neck of the gallbladder suggestive of a stone, but despite its large size, demonstrates no acoustic shadowing in any of the views. Taco Davidson MD CT Angiography 08/15/16 0000 Signed Impressions: Service Date/Time: Monday, August 15, 2016 02:33 - CONCLUSION: 1. No evidence for pulmonary embolism. 2. Multifocal consolidation greatest in the right lower lobe and associated adenopathy. Terry Estrada MD Objective Remarks GENERAL: 56 yo female, critically ill currently orotracheally intubated SKIN: Warm and dry. Currently no rash HEAD: Normocephalic. EYES: No scleral icterus. No injection or drainage. NECK: trachea midline. Neck is obese. Left IJ clean dry and intact CARDIOVASCULAR: RRR. S1, S2 no S4 . No murmur RESPIRATORY: Breath sounds equal mahogany but distant GASTROINTESTINAL: Abdomen obese, soft, non-tender, hypoactive active bowel sounds MUSCULOSKELETAL: Trace bilateral lower extremity edema Neuro: RASS -2. follows commands very weakly on sedation hold. Positive gag and corneal reflex. Urinary Catheter: Yes Assessment to: Continue Vascular Central Line Catheter: Yes Assessment to: Continue A/P Problem List: (1) ARDS (adult respiratory distress syndrome) ICD Code: J80 Status: Acute (2) CHF (congestive heart failure) ICD Code: I50.9 Status: Acute (3) Respiratory failure ICD Code: J96.90 Status: Acute (4) Pneumonia ICD Code: J18.9 Status: Acute Assessment and Plan PLAN: Neuro/Psych: Acute toxic metabolic encephalopathy Agitated delirium Continue propofol and fentanyl for sedation/analgesia while intubated. Goal RASS -2. Daily sedation vacation continue Seroquel 50mg po q8h for delirium and oxycodone 10mg po q4h femi for pain. EEG 09/09 moderate to severe encephalopathy Pulm: Acute hypercapnic and hypoxemic respiratory failure ARDS Pneumonia community-acquired, now with HCAP with carbapenem-resistant pseudomonas Likely JOE On PRVC/AC RR 16, TV 550, PEEP 10, IT: 1.1 and FIO2 0.40. Decrease FIO2 as tiki. for goal spo2 > 88% Bronchodilator therapy every 4 hours and as needed ICU vent bundle. Pulm is following- Dr. Beck ID request bronchoscopy for samples. Vent day , family agreeable for trach -currently stable resp thompson for trach. Gen surgery Dr. Ortega on board. Plan tracheostomy on Friday 09/15 CV: Hypertension Dyslipidemia Elevated troponin - likely strain Monitor HR and BP keep MAP>65mmg Echo 08/14 showed EF 65-70% mild AR/TR Home medications HCTZ 12.5 mill grams daily currently on hold while on Bumex. Home medication lovastatin 20 mg by mouth daily switch to Pravachol 20 mg a night. : Maintain Miller while on diuretics Bumex 1 mg once a day -hold Bumex due to increase in BUM s/p exchange Miller with funguria Monitor renal function, I/O's GI: Elevated transaminases Cholelithiasis Monitor LFT's ( trending down), on Protonix 40mg daily for GI prophylaxis US liver: Fatty liver and cholelithiasis. Repeat 09/08 revealed cholelithiasis with no acute signs of cholecystitis. Recommend a HIDA scan if indicated On TF Glucerna 1.5 @ 45ml/hr with 2 packets of been a protein 3 times a day minimal residual, restart after PEG. s/p PEG placement 09/01/[address] Ritter Prevacid 30 mg daily for GI prophylaxis Colace/Senokot for bowel regimen. Lactulose daily added ID: Pseudomonas pneumonia Funguria Pertinent cultures blood and sputum cx 08/15- NG strep pneumonia and Legionella urinary Ag negative Blood cultures 08/28: NGTD C Diff negative 08/28. Lines changed 08/28. Sputum 08/30 - Pseudomonas Sputum 09/02 PSAE, resistant to carbapenem, intermediate to Levaquin. 09/07 - urine -Maribell Guilliermondii 09/07 - blood cultures 2 - no growth 09/09 - urine -strep veridians, Maribell parapsilosis 09/10 - blood cultures 2 -no growth 09/11 - broch washings - pending 09/12 - urine - pending - Dcd cefepime/Levaquin on 09/05. started on Zosyn 4.5gm iv q6h and tobramycin 7 mg/kg/day. Zosyn discontinued secondary to rash Currently on cefepime and tobramycin aerosols per infectious disease Vfend day #4 200 every 12 - ID following Heme: Normocytic anemia Monitor CBC No indication for transfusion of blood product at this time Endo: Diabetes mellitus Hypothyroidism on SSI (medium scale) for glycemic control On Synthroid 200mcg daily. TSH 1.37 FEN: Hypokalemia - resolved ICU electrolyte protocol initiated. KCl 25 mEq scheduled daily-Hold due to K 5.7 GI prophylaxis- Prevacid per tube. DVT prophylaxis Heparin SQ, SCDs Lines: - Left IJ TLC 09/10 to present - Miller - PEG 09/01/16 Critical Care: The total critical care time was 35 minutes. Time to perform other separately billable procedures was not included in the critical care time. Problem Qualifiers (1) CHF (congestive heart failure): Qualified Code: I50.9 - Acute congestive heart failure, unspecified congestive heart failure type (2) Respiratory failure: Qualified Code: J96.02 - Acute respiratory failure with hypercapnia (3) Pneumonia: Qualified Code: J18.9 - Pneumonia of both lungs due to infectious organism, unspecified part of lung Darian Wylie MD Sep 14, 2016 10:17
[2016-09-14] MEDS: SODIUM CHLORIDE 0.9% FLUSH 10 ML FLUSH IVF SCH (12:09)
[2016-09-14] MEDS: QUEtiapine FUMARATE 25 MG TAB PO SCH ×2 (13:58→21:32)
--- NOTE | 2016-09-14 15:37 | RADRPT ---
EXAM DATE/TIME: 09/14/2016 08:32 [facility] COMPARISON: No previous studies available for comparison. INDICATIONS : Thrombosis. MEDICAL HISTORY : Hypercholesterolemia. Hypothyroidism. Hypertension. Apnea. SURGICAL HISTORY : Hysterectomy.Tubal ligation. ENCOUNTER: Initial ACUITY: 1 day PAIN SCORE: Non-responsive LOCATION: Bilateral arm. FINDINGS: RIGHT UPPER EXTREMITY: There is spontaneous flow documented in the brachial, basilic, cephalic, axillary, and subclavian vei ns. The vessels are compressible and augmentation response is documented. No filling defects are se en. The flow is phasic with respiration. Direction of flow in the jugular vein is caudal. LEFT UPPER EXTREMITY: There is spontaneous flow documented in the brachial, basilic, cephalic, axillary veins. There is non occlusive thrombus in the left subclavian and internal jugular veins. CONCLUSION: There is thrombus within the left subclavian and internal jugular veins. Danyel Escalante MD on September 14, 2016 at 15:34 Board Certified Radiologist. This report was verified electronically.
[2016-09-14 17:57] LABS: HEMATOCRIT 32.8 % (35.0-46.0); MEAN CELL VOLUME 87.5 FL (80.0-100.0); MEAN CORPUSCULAR HEMOGLOBIN 27.5 PG (27.0-34.0); MEAN CORPUSCULAR HGB CONC 31.4 % (32.0-36.0); PLATELET COUNT 147 TH/MM3 (150-450); RED BLOOD COUNT 3.75 MIL/MM3 (4.00-5.30); RED CELL DISTRIBUTION WIDTH 17.9 % (11.6-17.2); WHITE BLOOD COUNT 9.8 TH/MM3 (4.0-11.0)
[2016-09-14 17:58] LABS: REVIEW FLAG FINAL
[2016-09-14 18:00] LABS: APTT (PATIENT) 28.8 SEC (24.3-30.1); PROTHROMBIN TIME - PATIENT 10.7 SEC (9.8-11.6)
[2016-09-14 18:07] LABS: ALKALINE PHOSPHATASE 125 U/L (45-117); ALT (GPT) 70 U/L (10-53); ANION GAP 7 MEQ/L (5-15); AST (GOT) 92 U/L (15-37); BICARBONATE 32.3 MEQ/L (21.0-32.0); BLOOD UREA NITROGEN 49 MG/DL (7-18); CHLORIDE 96 MEQ/L (98-107); GLOMERULAR FILTRATION RATE 39 ML/MIN (>89); POTASSIUM 5.2 MEQ/L (3.5-5.1); SODIUM (NA) 135 MEQ/L (136-145); TOTAL BILIRUBIN ADULT 0.3 MG/DL (0.2-1.0)
[2016-09-14] MEDS: HEPARIN-D5W 25,000 U/250 ML 250 ML IV SCH (21:29)
[2016-09-14] MEDS: PRAVASTATIN SOD 20 MG TAB PO SCH (21:32)
[2016-09-15] VITALS (19 sets, daily range): BP systolic 101–154; BP diastolic 53–84; PULSE 92–120; RESP 16–20; TEMP 99.1–101.1; O2SAT 92–98
[2016-09-15 02:29] LABS: APTT (PATIENT) 44.4 SEC (24.3-30.1)
[2016-09-15] MEDS: oxyCODONE HCL ORAL CONC 20 MG/ML SYRINGE PO SCH ×6 (03:04→21:50)
[2016-09-15 03:53] LABS: AUTOMATED NEUTROPHIL # 5.9 TH/MM3 (1.8-7.7); BASOPHIL # 0.2 TH/MM3 (0-0.2); BASOPHIL % 2.2 % (0.0-2.0); EOSINOPHIL % 10.7 % (0.0-4.0); HEMATOCRIT 32.7 % (35.0-46.0); LYMPHOCYTE # 1.3 TH/MM3 (1.0-4.8); MEAN CELL VOLUME 87.5 FL (80.0-100.0); MEAN CORPUSCULAR HEMOGLOBIN 27.9 PG (27.0-34.0); MEAN CORPUSCULAR HGB CONC 31.9 % (32.0-36.0); MONO % 9.5 % (0.0-8.0); NEUT % 63.6 % (16.0-70.0); PLATELET COUNT 148 TH/MM3 (150-450); RED BLOOD COUNT 3.74 MIL/MM3 (4.00-5.30); RED CELL DISTRIBUTION WIDTH 17.7 % (11.6-17.2); WHITE BLOOD COUNT 9.3 TH/MM3 (4.0-11.0)
[2016-09-15 03:54] LABS: APTT (PATIENT) 44.7 SEC (24.3-30.1)
[2016-09-15 04:01] LABS: HEMO FLAGS AUTO DIFF
[2016-09-15] MEDS: RESP: ALBUTEROL 2.5 MG/IPRATROPIUM 0.5 MG NEB (SCH) INH ×4 (04:10→21:24)
[2016-09-15 04:21] LABS: ALT (GPT) 69 U/L (10-53); ANION GAP 7 MEQ/L (5-15); AST (GOT) 84 U/L (15-37); BICARBONATE 28.7 MEQ/L (21.0-32.0); BLOOD UREA NITROGEN 53 MG/DL (7-18); CHLORIDE 98 MEQ/L (98-107); GLOMERULAR FILTRATION RATE 37 ML/MIN (>89); MAGNESIUM 2.8 MG/DL (1.5-2.5); POTASSIUM 5.4 MEQ/L (3.5-5.1); SODIUM (NA) 134 MEQ/L (136-145)
[2016-09-15 04:23] LABS: ALKALINE PHOSPHATASE 124 U/L (45-117); TOTAL BILIRUBIN ADULT 0.3 MG/DL (0.2-1.0)
[2016-09-15 05:00] LABS: BANDS 20 % (0-6); BASOPHILS 1 % (0-2); CORRECTED NUCLEATED RBC 9 /100 WBC (0-0); EOSINOPHILS 11 % (0-4); MYELOCYTES 2 % (0-0); NEUTROPHIL # MANUAL DIFF 6.2 TH/MM3 (1.8-7.7); PLATELET ESTIMATE SMEAR NORMAL (NORMAL); PLATELET MORPHOLOGY NORMAL (NORMAL); POLYS (SEG NEUTROPHILS) 45 % (16-70); SCAN/DIFF FINAL DIFF MANUAL; WBC DIFF SAMPLE 100
[2016-09-15] MEDS: CEFEPIME INJ 2,000 MG in SODIUM CHLORIDE 0.9% INJ 100 ML IV SCH ×2 (05:59→18:04)
[2016-09-15] MEDS: QUEtiapine FUMARATE 25 MG TAB PO SCH ×3 (06:00→21:50)
[2016-09-15] MEDS: LEVOTHYROXINE SODIUM 200 MCG TAB PO SCH (06:00)
--- NOTE | 2016-09-15 06:07 | RADRPT ---
EXAM DATE/TIME: 09/15/2016 03:52 [facility] COMPARISON: CHEST SINGLE AP, September 14, 2016, 3:21. INDICATIONS : Shortness of breath. MEDICAL HISTORY : Hypertension. Apnea. SURGICAL HISTORY : Gastric tube. ENCOUNTER: Subsequent ACUITY: 2 weeks PAIN SCORE: Non-responsive. LOCATION: Bilateral chest FINDINGS: A single portable frontal view of the chest shows persistent basilar consolidations more pronounced o n the right. These are unchanged. No effusions. Heart is normal in size. Tip of endotracheal tube 4 c m proximal to the armaan. Left-sided central line has been removed. CONCLUSION: Persistent and unchanged bibasilar infiltrates. Taco Haas Jr., MD on September 15, 2016 at 6:05 Board Certified Radiologist. This report was verified electronically.
[2016-09-15] MEDS: fentaNYL DRIP 250 ML IV SCH (06:27)
[2016-09-15] MEDS: RESP: TOBRAMYCIN SULFATE 80 MG/2 ML NEB NEB SCH ×2 (07:36→21:24)
[2016-09-15] MEDS: INSULIN NovoLIN REGULAR SUPPLEMENTAL SCALE SQ SCH ×2 (08:00→20:00)
[2016-09-15] MEDS: SODIUM CHLORIDE 0.9% FLUSH 10 ML FLUSH IVF SCH (09:00)
[2016-09-15] MEDS: BENEPROTEIN POWDER 1 PACK G-TUBE SCH ×3 (09:00→18:00)
[2016-09-15] MEDS: DOCUSATE SODIUM 100 MG/10 ML UDC PO SCH ×2 (09:00→21:49)
[2016-09-15] MEDS: SODIUM CHLORIDE 0.9% FLUSH 10 ML FLUSH IV FLUSH SCH (09:00)
[2016-09-15] MEDS: SENNOSIDES SYRUP 8.8 MG/5 ML CUP PO SCH ×2 (09:00→21:49)
[2016-09-15] MEDS: ARTIFICIAL TEARS OPTH SOLN 15 ML BTL EACH EYE SCH ×3 (09:42→18:04)
[2016-09-15] MEDS ORDERED: ROCURONIUM INJ 50 MG/5 ML VIAL IV ONE (09:45)
[2016-09-15] MEDS ORDERED: MIDAZOLAM HCL 2 MG/2 ML VIAL IV PUSH ONE (09:45)
[2016-09-15] MEDS ORDERED: fentaNYL CITRATE 250 MCG/5 ML AMP IV PUSH ONE (09:45)
--- NOTE | 2016-09-15 10:57 | PD.PROCEDR ---
Procedure Note Procedure Procedure: Fiberoptic Bronchoscopy guidance for tracheostomy Diagnosis/Indication: Respiratory failure, unable to wean off the ventilator Consent: Informed consent obtained and a time out performed Anesthesia: Continue sedation with propofol. Total 100 g of fentanyl, 3 mg IV Versed given for pain control and additional sedation. Neuromuscular paralysis with rocuronium Description of the Procedure: The patient was sedated and mechanically ventilated, was placed on 100% FIO2 and a volume control mode of ventilation. The fiberoptic bronchoscopy was inserted via endotracheal tube and the ETT was withdrawn slowly to 16 CM. The trachea, right and left mainstem bronchi, and sub -segmental bronchi were evaluated. The endobronchial anatomy was normal. Insertion of introducer needle, guidewire, followed by serial Blue Rhino dilation and tracheostomy placement was directly visualized on video bronchoscopy. (see separate tracheostomy procedure note from Dr. Ortega). After tracheostomy placement, position was confirmed by introducing the bronchoscope through the new trach and visualizing the main armaan. The patient tolerated the procedure well with no hemodynamic instability or hypoxia. There were no immediate complications noted. A chest x-ray has been ordered. I personally performed the procedure. Darian Wylie MD Sep 15, 2016 10:56
--- NOTE | 2016-09-15 10:58 | HHI.CCPN ---
Subjective Remarks/Hospital Course 56-year-old morbidly obese female brought in the emergency department in respiratory distress. She was intubated by ER attending. She has been sick for about a week with symptoms consistent with UTI. She's had fevers and chills. She's been short of breath. She's had fatigue. She has had a cough and chest pain with coughing. The family reports that she's been delirious for the last 3 days. 08/15 Patient is sedated with Diprivan, Versed, Fentanyl and intubated. CTA chest showed no PE multifocal consolidation greatest in RLL. Tmax 100.6 08/16 Patient is sedated with Diprivan and Fentanyl. Afebrile. CXR this morning showed increase consolidation. 08/17 Patient remains sedated and intubated. T:100.4 On PRVC/AC RR 18, Tv 500, IT :1.0 PEEP:10, FIO2 75% 08/18 Remains sedated and intubated. Afebrile. CXR this morning unchanged bibasilar infiltrates and effusions. 08/19 Patient was placed on rotoprone bed last night for proning sedated with Diprivan, Versed and Fentnayl in addition she is on Nimbex. On PRVC/AC RR 20, TV 400, IT:1.1, PEEP:14 and FIO2 80%. Afebrile. 08/20 Patient remains sedated and intubated. Remains on PRVC/AC mode with improvements in her oxygenation on FIO2 50% from 80% yesterday and PEEP:12. 08/21 Patient remains sedated and intubated. On PRVC/AC mode with RR 20, TV 400, IT:1.1, PEEP: 12 and FIO2 50%. Afebrile. 08/22 No acute events overnight. Remains sedated, intubated and on Nimbex.. T: 99.8. On PRVC mode with PEP: 12, FIO2 50%. CXR from yesterday showed better aeration, RLL infiltrate unchanged. 08/23 Chest x-ray worsening. Methylprednisolone taper to twice a day by pulmonary. The patient's FiO2 was found to be 100% this a.m., will continue to wean. 08/24: 1 desat episode yesterday when supine. still remains prone now. no vasopressors. sedated and paralyzed. 08/25: flolan added yesterday. fio2 down to 60%. remained supine all night. still on neuromuscular blockade. net -500cc/24h. 08/26: good diuresis. remained supine. fio2 70%. weaning flolan. remains with significant respiratory support and high peep despite 6L diuresis overnight. Cr still stable. 08/27: continues with good diuresis. net negative 3L/24h. fio2 down to 55%. flolan off. still high peep. not ready for SBT. more agitated today. Cr remains stable despite aggressive diuresis. 08/28: diuresis continues. -3.3L/24h. spiked fever overnight with a jump in wbc to 16 this AM. fio2 60%, but her pulmonary improvements have plateaued at this point. still on peep 12. 08/29: net -1.7L/24h. Cr starting to rise. still spiking fevers despite vanc/ cefepime added yesterday. wbc continues to rise. clinically appears infected, although unclear source. peep 10, fio2 60%. will likely need trach. 08/30: net +800cc, but Cr downtrending. appears clinically euvolemic. fever curve downtrending. wbc downtrending. on 40% fio2, peep 8 today. still following commands. 08/31: failed SBT after only 45 minutes yesterday. intubated for > 2 weeks at this point. will attempt to pursue trach/peg today. will continue with pulmonary strengthening. daily SBTs. 09/01 CXR showing increasing bibasilar infiltrate. Failed C Pap trial in 5 minutes due to severe tachypnea. PEG tube today. Family has not decided on trach yet 09/02: Patient febrile to 101.1, CXR increased infiltrate left upper lung and right lower lobe. Pancultured. Cefepime added today and one dose of vancomycin. Continues to fail C Pap trial due to tachypnea and respiratory distress 09/03: Remains hypoxemic on 75% oxygen with new pneumonia. Sputum culture 09/02/16 with GNR. Family agreeable for tracheostomy but patient is not stable at this point for trach 09/04: still on 70% fio2. still hypoxic. pneumonia persists. needs trach, but too unstable at this point. 09/05: remains on 75% fio2. pseudomonas sensitivities came back resistant to carbapenems, intermediate to levaquin. still spiking fevers. not clinically improving. wbc remains elevated. 09/06: Remains on 12 of PEEP and FiO2 75%. Zosyn and tobramycin started yesterday. WBC count trending down today 11.5 from 13.1. Remains heavily sedated for ventilator synchrony. MAXIMUM TEMPERATURE 100.3 09/07: Continues to spike fever. CXR unchanged. WBC count improving. PEEP 14. FiO2 60%. Will start IV Bumex 1mg IV q12 09/09: Tolerating tube feeds at goal. Afebrile. No documented bowel movement. Currently sedated on the ventilator 09/10: Tmax 99.7. Currently 99.4. No bowel movement yesterday. None document since 09/04. Arousable on the ventilator 09/11: Tmax 102.6. Currently 100. Positive BM. Arousable on the ventilator. Tolerating tube feeds. Central line changed yesterday. Plan for bronchoscopy at 1 PM. 09/12: Tmax 100.1. Currently afebrile. Follows commands today. Wiggles toes and give thumbs up appropriately. MRI brain canceled. Tolerating tube feeding with positive BM. Tracheostomy currently planned for . Subjective 09/13: Tmax 102. Again on sedation vacation falls commands by wiggling toes bilaterally and giving thumbs up bilaterally appropriate. Tolerating tube feeding with positive BM. Tracheostomy planned for tomorrow with Dr. Ortega. 09/14: Low grade fever. CXR showing more prominent infiltrate on the right lower lobe and left upper lobe. WBC trending up still in normal range. Patient is on 40% FiO2 but continues to fail CPAP due to tachypnea 09/15: Remains intubated sedated, unable to wean off the vent. Plan for tracheostomy today with Dr. Ortega. Continues to have low grade fever. CXR with persistent bibasilar infiltrates Objective Vital Signs Date Time Temp Pulse Resp B/P Pulse Ox O2 Delivery O2 Flow Rate FiO2 09/15/16 07:38 16 09/15/16 07:36 98 100 09/15/16 06:00 103 09/15/16 04:00 99.4 106/59 Intake and Output 09/14/16 09/14/16 09/15/16 08:00 16:00 00:00 Intake Total 729 ml 998 ml 413 ml Output Total 150 ml 750 ml 300 ml Balance 579 ml 248 ml 113 ml Result Diagram: 09/15/16 0324 09/15/16 0324 Imaging Last Impressions Chest X-Ray 09/10/16 1912 Signed Impressions: Service Date/Time: Saturday, September 10, 2016 19:29 - CONCLUSION: 1. Left central line in superior vena cava without pneumothorax. Endotracheal tube unchanged. Rony Malloy MD Liver Ultrasound 09/08/16 0000 Signed Impressions: Service Date/Time: Thursday, September 08, 2016 08:45 - CONCLUSION: 1. Cholelithiasis with distended gallbladder. However, there are no associated findings present to diagnose acute cholecystitis. If there is persistent clinical concern for acute cholecystitis could evaluate for cystic duct obstruction with hepatobiliary scintigraphy. 2. Hepatomegaly with very heterogeneous echotexture and steatosis. Dejan Allison MD Gall Bladder Ultrasound 08/29/16 0000 Signed Impressions: Service Date/Time: Monday, August 29, 2016 15:21 - CONCLUSION: 1. Hepatomegaly with heterogeneous echotexture throughout the liver. 2. There is a large echogenic area near the neck of the gallbladder suggestive of a stone, but despite its large size, demonstrates no acoustic shadowing in any of the views. Taco Davidson MD CT Angiography 08/15/16 0000 Signed Impressions: Service Date/Time: Monday, August 15, 2016 02:33 - CONCLUSION: 1. No evidence for pulmonary embolism. 2. Multifocal consolidation greatest in the right lower lobe and associated adenopathy. Terry Estrada MD Objective Remarks GENERAL: 56 yo female, critically ill currently orotracheally intubated SKIN: Warm and dry. Currently no rash HEAD: Normocephalic. EYES: No scleral icterus. No injection or drainage. NECK: trachea midline. Neck is obese. Left IJ clean dry and intact CARDIOVASCULAR: RRR. S1, S2 no S4 . No murmur RESPIRATORY: Breath sounds equal mahogany but distant, few basilar crackles GASTROINTESTINAL: Abdomen obese, soft, non-tender, hypoactive active bowel sounds MUSCULOSKELETAL: Trace bilateral lower extremity edema Neuro: RASS -2. follows commands very weakly on sedation hold. Positive gag and corneal reflex. Urinary Catheter: Yes Assessment to: Continue A/P Problem List: (1) ARDS (adult respiratory distress syndrome) ICD Code: J80 Status: Acute (2) CHF (congestive heart failure) ICD Code: I50.9 Status: Acute (3) Respiratory failure ICD Code: J96.90 Status: Acute (4) Pneumonia ICD Code: J18.9 Status: Acute Assessment and Plan PLAN: Neuro/Psych: Acute toxic metabolic encephalopathy Agitated delirium Continue propofol and fentanyl for sedation/analgesia while intubated. Goal RASS -2. Daily sedation vacation Continue Seroquel 50mg po q8h for delirium and oxycodone 10mg po q4h femi for pain. EEG 09/09 moderate to severe encephalopathy Pulm: Acute hypercapnic and hypoxemic respiratory failure ARDS Pneumonia community-acquired, now with HCAP with carbapenem-resistant pseudomonas Probable JOE On PRVC/AC RR 16, TV 550, PEEP 8, IT: 1.1 and FIO2 0.40. Decrease FIO2 as tiki. for goal spo2 > 88% Bronchodilator therapy every 4 hours and as needed ICU vent bundle. Pulm is following- Dr. Kiran vides to date Gen surgery Dr. Ortega on board. Plan tracheostomy today 09/15 CV: Hypertension Dyslipidemia Elevated troponin - likely strain Monitor HR and BP keep MAP>65mmg Echo 08/14 showed EF 65-70% mild AR/TR Home medications HCTZ 12.5 mill grams daily currently on hold Home medication lovastatin 20 mg by mouth daily switch to Pravachol 20 mg a night. : Maintain Miller while on diuretics Bumex 1 mg once a day -hold Bumex due to increase in BUN/creat s/p exchange Miller with funguria Monitor renal function, I/O's GI: Elevated transaminases Cholelithiasis Monitor LFT's ( trending down), on Protonix 40mg daily for GI prophylaxis US liver: Fatty liver and cholelithiasis. Repeat 09/08 revealed cholelithiasis with no acute signs of cholecystitis. Recommend a HIDA scan if indicated On TF Glucerna 1.5 @ 45ml/hr with 2 packets of been a protein 3 times a day minimal residual. On hold for trach s/p PEG placement 09/01/[address] Ritter Prevacid 30 mg daily for GI prophylaxis Colace/Senokot for bowel regimen. Lactulose daily added ID: Pseudomonas pneumonia Funguria Pertinent cultures blood and sputum cx 08/15- NG strep pneumonia and Legionella urinary Ag negative Blood cultures 08/28: NGTD C Diff negative 08/28. Lines changed 08/28. Sputum 08/30 - Pseudomonas Sputum 09/02 PSAE, resistant to carbapenem, intermediate to Levaquin. 09/07 - urine -Maribell Guilliermondii 09/07 - blood cultures 2 - no growth 09/09 - urine -strep veridians, Maribell parapsilosis 09/10 - blood cultures 2 -no growth 09/11 - broch washings - pending 09/12 - urine - immature growth - Dcd cefepime/Levaquin on 09/05. started on Zosyn 4.5gm iv q6h and tobramycin 7 mg/kg/day. Zosyn discontinued secondary to rash Currently on cefepime and tobramycin aerosols per infectious disease Vfend day #5 200 every 12 - ID following Heme: Normocytic anemia Monitor CBC No indication for transfusion of blood product at this time Endo: Diabetes mellitus Hypothyroidism on SSI (medium scale) for glycemic control On Synthroid 200mcg daily. TSH 1.37 FEN: Hypokalemia - resolved ICU electrolyte protocol initiated. KCl 25 mEq scheduled daily-Hold due to K 5.7 GI prophylaxis- Prevacid per tube. DVT prophylaxis Heparin SQ, SCDs Lines: - Left IJ TLC 09/10 to present - Miller - PEG 09/01/16 - Trach 09/15 Critical Care: The total critical care time was 35 minutes. Time to perform other separately billable procedures was not included in the critical care time. Problem Qualifiers (1) CHF (congestive heart failure): Qualified Code: I50.9 - Acute congestive heart failure, unspecified congestive heart failure type (2) Respiratory failure: Qualified Code: J96.02 - Acute respiratory failure with hypercapnia (3) Pneumonia: Qualified Code: J18.9 - Pneumonia of both lungs due to infectious organism, unspecified part of lung Darian Wylie MD Sep 15, 2016 10:58
[2016-09-15] MEDS: LANSOPRAZOLE SOLUTAB 30 MG TAB NG SCH (11:24)
[2016-09-15] MEDS: VORICONAZOLE 200 MG TAB PO SCH ×2 (11:24→21:49)
--- NOTE | 2016-09-15 11:54 | RADRPT ---
EXAM DATE/TIME: 09/15/2016 11:00 [facility] COMPARISON: CHEST SINGLE AP, September 15, 2016, 3:52. INDICATIONS : Post tracheostomy MEDICAL HISTORY : Hypertension. SURGICAL HISTORY : Gastric tube ENCOUNTER: Subsequent ACUITY: 2 weeks PAIN SCORE: Non-responsive. LOCATION: chest FINDINGS: Tracheostomy tube is present in satisfactory position. Bilateral parenchymal infiltrates are present mainly in the mid and lower lung palafox with air space process in the left upper lobe not significant ly changed. CONCLUSION: Placement of tracheostomy tube otherwise not changed. Danyel Escalante MD on September 15, 2016 at 11:51 Board Certified Radiologist. This report was verified electronically.
--- NOTE | 2016-09-15 15:21 | HHI.IDPN ---
Subjective Subjective Remarks Ms. Clayton is a 56 year old female with past medical history of Morbid Obesity , hypothyroidism, obstructive sleep apnea, and high cholesterol. Patient reportedly is on oxygen at home 2L, and was supposed to be using BiPAP at night for JOE but was reportedly non compliant. Patient presented to [facility] emergency department with family on 08/14/16 for evaluation of respiratory distress. Review of notes indicate the patient had reported being sick for one week prior to presentation with progressively worsening symptoms including fever , chills, shortness of breath, cough, chest pain with coughing, increase confusion and fatigue. Initial evaluation in the ED revealed temp of 100.6 F, HR 106, RR 36, BP 178/103, O2 Sats 100% FiO2. Her WBC was 13.6, Plts 423, Cr 0.77. LFTs were elevated total bilirubin 0.4, AST 77, ALT 72, Alk phos 143. Patient had sepsis workup initiated. UA was negative CXR with bilateral infiltrated. Patient is admitted to ICU with respiratory failure, CHF, pneumonia, probable underlying COPD. Patient was intubated and placed on mechanical ventilation. Pulmonology, Dr. Beck was consulted for respiratory failure/sleep apnea and continues to follow. 08/15/16 CTA showed no evidence of pulmonary embolism, multifocal consolidation greatest right lower lobe. Hospital course has been complicated by continued high oxygen ventilator needs, ARDS and inability to wean from vent. Patient was started on Zosyn IV and Tobramycin pharmacy consult placed by [employer]. ID consulted for fever in patient being treated for PSAE Pneumonia. Persistent low grade fevers. No diarrhea Not much secretions. small, mcpherson mostly oral. UO ok remains on vent. Trach today. Has a PEG. Antibiotics Cefepime IV tobramycin nebs Diflucan Lines Line sites with no e.o infection Past Medical History reviewed. Allergies: Coded Allergies: No Known Allergies (Verified , 08/14/16) Objective . Vital Signs Date Time Temp Pulse Resp B/P Pulse Ox O2 Delivery O2 Flow Rate FiO2 09/15/16 12:00 100 09/15/16 12:00 120 09/15/16 11:42 92 100 09/15/16 10:45 97 100 09/15/16 10:00 102 09/15/16 08:00 40 09/15/16 08:00 95 09/15/16 08:00 100.1 95 17 101/55 98 09/15/16 07:38 16 09/15/16 07:36 98 100 09/15/16 06:00 103 09/15/16 04:17 93 40 09/15/16 04:00 99.4 100 20 106/59 94 09/15/16 04:00 40 09/15/16 04:00 103 09/15/16 02:00 103 09/15/16 01:02 93 40 09/15/16 00:00 40 09/15/16 00:00 99.1 97 18 154/84 98 09/15/16 00:00 103 09/14/16 22:00 102 09/14/16 20:06 92 40 09/14/16 20:00 98 09/14/16 20:00 99.8 102 28 112/62 94 09/14/16 20:00 40 09/14/16 18:00 104 09/14/16 16:00 110 09/14/16 16:00 98.8 110 27 111/58 93 09/14/16 16:00 40 09/14/16 15:43 92 40 09/14/16 09/14/16 09/15/16 15:00 23:00 07:00 Intake Total 998 ml 413 ml 246 ml Output Total 750 ml 300 ml 250 ml Balance 248 ml 113 ml -4 ml IV Total 365 ml 60 ml 131 ml Tube Feeding 393 ml 353 ml 115 ml Other 240 ml Output Urine Total 750 ml 300 ml 250 ml . Laboratory Tests Test 09/14/16 09/14/16 09/15/16 03:40 17:30 03:24 White Blood Count 10.1 TH/MM3 9.8 TH/MM3 9.3 TH/MM3 Red Blood Count 3.71 MIL/MM3 3.75 MIL/MM3 3.74 MIL/MM3 Hemoglobin 10.6 GM/DL 10.3 GM/DL 10.4 GM/DL Hematocrit 32.2 % 32.8 % 32.7 % Mean Corpuscular Volume 86.7 FL 87.5 FL 87.5 FL Mean Corpuscular Hemoglobin 28.5 PG 27.5 PG 27.9 PG Mean Corpuscular Hemoglobin 32.9 % 31.4 % 31.9 % Concent Red Cell Distribution Width 17.7 % 17.9 % 17.7 % Platelet Count 152 TH/MM3 147 TH/MM3 148 TH/MM3 Mean Platelet Volume 10.1 FL 9.8 FL 9.9 FL Neutrophils (%) (Auto) 63.6 % Lymphocytes (%) (Auto) 14.0 % Monocytes (%) (Auto) 9.5 % Eosinophils (%) (Auto) 10.7 % Basophils (%) (Auto) 2.2 % Neutrophils # (Auto) 5.9 TH/MM3 Lymphocytes # (Auto) 1.3 TH/MM3 Monocytes # (Auto) 0.9 TH/MM3 Eosinophils # (Auto) 1.0 TH/MM3 Basophils # (Auto) 0.2 TH/MM3 CBC Comment AUTO DIFF Differential Total Cells 100 Counted Neutrophils % (Manual) 45 % Band Neutrophils % 20 % Lymphocytes % 9 % Monocytes % 12 % Eosinophils % 11 % Basophils % 1 % Neutrophils # (Manual) 6.2 TH/MM3 Myelocytes 2 % Nucleated Red Blood Cells 9 /100 WBC Differential Comment FINAL DIFF MANUAL Platelet Estimate NORMAL Platelet Morphology Comment NORMAL Laboratory Tests Test 09/13/16 09/14/16 09/14/16 09/15/16 17:20 03:40 17:30 03:24 Procalcitonin 1.97 ng/mL Sodium Level 134 MEQ/L 135 MEQ/L 134 MEQ/L Potassium Level 5.7 MEQ/L 5.2 MEQ/L 5.4 MEQ/L Chloride Level 98 MEQ/L 96 MEQ/L 98 MEQ/L Carbon Dioxide Level 29.8 MEQ/L 32.3 MEQ/L 28.7 MEQ/L Anion Gap 6 MEQ/L 7 MEQ/L 7 MEQ/L Blood Urea Nitrogen 43 MG/DL 49 MG/DL 53 MG/DL Creatinine 1.20 MG/DL 1.40 MG/DL 1.45 MG/DL Estimat Glomerular Filtration 47 ML/MIN 39 ML/MIN 37 ML/MIN Rate Random Glucose 144 MG/DL 133 MG/DL 114 MG/DL Calcium Level 8.2 MG/DL 8.2 MG/DL 8.3 MG/DL Total Bilirubin 0.3 MG/DL 0.3 MG/DL Aspartate Amino Transf 92 U/L 84 U/L (AST/SGOT) Alanine Aminotransferase 70 U/L 69 U/L (ALT/SGPT) Alkaline Phosphatase 125 U/L 124 U/L Total Protein 6.1 GM/DL 6.1 GM/DL Albumin 1.7 GM/DL 1.7 GM/DL Magnesium Level 2.8 MG/DL Imaging Last Impressions Liver Ultrasound 09/08/16 0000 Signed Impressions: Service Date/Time: Thursday, September 08, 2016 08:45 - CONCLUSION: 1. Cholelithiasis with distended gallbladder. However, there are no associated findings present to diagnose acute cholecystitis. If there is persistent clinical concern for acute cholecystitis could evaluate for cystic duct obstruction with hepatobiliary scintigraphy. 2. Hepatomegaly with very heterogeneous echotexture and steatosis. Dejan Allison MD Chest X-Ray 09/06/16 0000 Signed Impressions: Service Date/Time: Tuesday, September 06, 2016 11:09 - CONCLUSION: No significant change has occurred. Terry Estrada MD Gall Bladder Ultrasound 08/29/16 0000 Signed Impressions: Service Date/Time: Monday, August 29, 2016 15:21 - CONCLUSION: 1. Hepatomegaly with heterogeneous echotexture throughout the liver. 2. There is a large echogenic area near the neck of the gallbladder suggestive of a stone, but despite its large size, demonstrates no acoustic shadowing in any of the views. Taco Davidson MD CT Angiography 08/15/16 0000 Signed Impressions: Service Date/Time: Monday, August 15, 2016 02:33 - CONCLUSION: 1. No evidence for pulmonary embolism. 2. Multifocal consolidation greatest in the right lower lobe and associated adenopathy. Terry Estrada MD Physical Exam GENERAL: Morbidly obese CF patient, in no apparent distress. SKIN: Skin folds with erythema noted. HEAD: Atraumatic. Normocephalic. No temporal or scalp tenderness. EYES: Pupils equal round and reactive. Extraocular motions intact. No scleral icterus. No injection or drainage. ENT: Intubated. NECK: Large neck. Intubated. Supple, nontender, no meningeal signs. CARDIOVASCULAR: RRR. RESPIRATORY: Clear to auscultation. Breath sounds equal bilaterally. GASTROINTESTINAL: Abdomen soft, non-tender, nondistended. MUSCULOSKELETAL: Extremities without clubbing, cyanosis. Edema. NEUROLOGICAL: Sedated. IV line sites with no e.o infection. Miller in place with clear urine. Assessment & Plan Remarks Sepsis present on admission. Now with SIRS/Sepsis new. New Rash: ? cause for SIRS. Drug induced: Zosyn IV most likely. Reviewed MAR. PSA pneumonia: pansensitive. R/o HCAP/VAP. Morbid Obesity (BMI 45.8 kg/m2) Obstructive Sleep Apnea (supposed to be on CPAP at home and home oxygen 2L) Acute respiratory failure vent dependent. Acute metabolic encephalopathy: infection, meds. Thrombosis of cephalic vein. Recs: Continue Cefepime IV Continue Tobramycin nebs. Continue Voriconazole (for Maribell G) anticoagulation per primary. Likely cause for persistent low grade fevers. Follow cultures Follow clinically. d/w RN to cover for ri 09/16/16 to 09/18/16. Terri Uribe MD Sep 15, 2016 15:21
[2016-09-15] MEDS: ACETAMINOPHEN 325 MG TAB PO PRN ×2 (16:31→21:49)
[2016-09-15] MEDS: PRAVASTATIN SOD 20 MG TAB PO SCH (21:00)
[2016-09-15] MEDS: HEPARIN-D5W 25,000 U/250 ML 250 ML IV SCH (21:52)
[2016-09-15] MEDS: PROPOFOL 1000 MG/100 ML INJ 100 ML IV SCH (21:59)
[2016-09-15 23:52] LABS: APTT (PATIENT) 34.4 SEC (24.3-30.1)
[2016-09-16] VITALS (19 sets, daily range): BP systolic 98–107; BP diastolic 55–60; PULSE 85–101; RESP 16–21; TEMP 98.5–100.8; O2SAT 93–98
[2016-09-16] MEDS: RESP: ALBUTEROL 2.5 MG/IPRATROPIUM 0.5 MG NEB (SCH) INH ×4 (03:00→21:39)
[2016-09-16] MEDS: oxyCODONE HCL ORAL CONC 20 MG/ML SYRINGE PO SCH ×5 (04:00→22:18)
[2016-09-16] MEDS: CEFEPIME INJ 2,000 MG in SODIUM CHLORIDE 0.9% INJ 100 ML IV SCH ×2 (05:43→18:00)
[2016-09-16] MEDS: ACETAMINOPHEN 325 MG TAB PO PRN (05:43)
[2016-09-16] MEDS: QUEtiapine FUMARATE 25 MG TAB PO SCH ×3 (05:44→22:09)
[2016-09-16] MEDS: LEVOTHYROXINE SODIUM 200 MCG TAB PO SCH (05:44)
[2016-09-16] MEDS: RESP: TOBRAMYCIN SULFATE 80 MG/2 ML NEB NEB SCH ×2 (07:53→19:22)
[2016-09-16] MEDS: INSULIN NovoLIN REGULAR SUPPLEMENTAL SCALE SQ SCH ×2 (08:00→20:00)
[2016-09-16] MEDS: VORICONAZOLE 200 MG TAB PO SCH ×2 (08:29→21:00)
[2016-09-16] MEDS: DOCUSATE SODIUM 100 MG/10 ML UDC PO SCH ×2 (08:29→21:00)
[2016-09-16] MEDS: LANSOPRAZOLE SOLUTAB 30 MG TAB NG SCH (08:29)
[2016-09-16] MEDS: SENNOSIDES SYRUP 8.8 MG/5 ML CUP PO SCH ×2 (08:29→21:00)
[2016-09-16] MEDS: ARTIFICIAL TEARS OPTH SOLN 15 ML BTL EACH EYE SCH ×3 (08:32→18:00)
[2016-09-16] MEDS: BENEPROTEIN POWDER 1 PACK G-TUBE SCH ×3 (08:32→18:00)
[2016-09-16] MEDS: SODIUM CHLORIDE 0.9% FLUSH 10 ML FLUSH IV FLUSH SCH ×2 (08:32→21:15)
[2016-09-16] MEDS: SODIUM CHLORIDE 0.9% FLUSH 10 ML FLUSH IVF SCH (08:32)
--- NOTE | 2016-09-16 08:50 | HHI.IDPN ---
Subjective Subjective Remarks ID COVERAGE Admitte with F/C, Cough, SOB, congestion, confusion, and CP. Patient is admitted to ICU with respiratory failure, CHF, pneumonia, probable underlying COPD. Patient was intubated and placed on mechanical ventilation. NOt weaning and had trach done 09/15. Has been having fevers. ON Rx for PSAE PNA and C glabrat UTI D/W RN Continues to have fevers Sedated on the vent Not a long of secretions WBC normal Creatinine has been rising UO low No diarrhea No central line, has clot in her LUE, on heparin Antibiotics Cefepime IV tobramycin nebs Voriconazole Lines PIV Past Medical History reviewed. Allergies: Coded Allergies: No Known Allergies (Verified , 08/14/16) Objective . Vital Signs Date Time Temp Pulse Resp B/P Pulse Ox O2 Delivery O2 Flow Rate FiO2 09/16/16 07:54 95 50 09/16/16 06:00 96 09/16/16 04:08 94 50 09/16/16 04:00 90 09/16/16 04:00 96 09/16/16 04:00 100.8 98 16 102/57 98 09/16/16 02:00 96 09/16/16 01:04 95 60 09/16/16 00:00 100.0 93 20 98/55 98 09/16/16 00:00 101 09/16/16 00:00 90 09/15/16 22:00 101 09/15/16 20:00 90 09/15/16 20:00 101.0 93 20 119/81 96 09/15/16 20:00 92 09/15/16 19:28 98 90 09/15/16 18:00 100 09/15/16 16:27 97 90 09/15/16 16:00 90 09/15/16 16:00 101.1 104 16 102/55 97 09/15/16 16:00 104 09/15/16 14:00 109 09/15/16 12:00 100 09/15/16 12:00 120 09/15/16 12:00 100.4 120 20 105/53 93 09/15/16 11:42 92 100 09/15/16 10:45 97 100 09/15/16 10:00 102 09/15/16 09/15/16 09/16/16 15:00 23:00 07:00 Intake Total 314 ml 305 ml Output Total 200 ml 200 ml Balance 114 ml 105 ml IV Total 194 ml 165 ml Tube Feeding 0 ml 140 ml Other 120 ml Output Urine Total 200 ml 200 ml # Bowel Movements 1 . Laboratory Tests Test 09/14/16 09/15/16 17:30 03:24 White Blood Count 9.8 TH/MM3 9.3 TH/MM3 Red Blood Count 3.75 MIL/MM3 3.74 MIL/MM3 Hemoglobin 10.3 GM/DL 10.4 GM/DL Hematocrit 32.8 % 32.7 % Mean Corpuscular Volume 87.5 FL 87.5 FL Mean Corpuscular Hemoglobin 27.5 PG 27.9 PG Mean Corpuscular Hemoglobin 31.4 % 31.9 % Concent Red Cell Distribution Width 17.9 % 17.7 % Platelet Count 147 TH/MM3 148 TH/MM3 Mean Platelet Volume 9.8 FL 9.9 FL Neutrophils (%) (Auto) 63.6 % Lymphocytes (%) (Auto) 14.0 % Monocytes (%) (Auto) 9.5 % Eosinophils (%) (Auto) 10.7 % Basophils (%) (Auto) 2.2 % Neutrophils # (Auto) 5.9 TH/MM3 Lymphocytes # (Auto) 1.3 TH/MM3 Monocytes # (Auto) 0.9 TH/MM3 Eosinophils # (Auto) 1.0 TH/MM3 Basophils # (Auto) 0.2 TH/MM3 CBC Comment AUTO DIFF Differential Total Cells 100 Counted Neutrophils % (Manual) 45 % Band Neutrophils % 20 % Lymphocytes % 9 % Monocytes % 12 % Eosinophils % 11 % Basophils % 1 % Neutrophils # (Manual) 6.2 TH/MM3 Myelocytes 2 % Nucleated Red Blood Cells 9 /100 WBC Differential Comment FINAL DIFF MANUAL Platelet Estimate NORMAL Platelet Morphology Comment NORMAL Laboratory Tests Test 09/14/16 09/15/16 17:30 03:24 Sodium Level 135 MEQ/L 134 MEQ/L Potassium Level 5.2 MEQ/L 5.4 MEQ/L Chloride Level 96 MEQ/L 98 MEQ/L Carbon Dioxide Level 32.3 MEQ/L 28.7 MEQ/L Anion Gap 7 MEQ/L 7 MEQ/L Blood Urea Nitrogen 49 MG/DL 53 MG/DL Creatinine 1.40 MG/DL 1.45 MG/DL Estimat Glomerular Filtration 39 ML/MIN 37 ML/MIN Rate Random Glucose 133 MG/DL 114 MG/DL Calcium Level 8.2 MG/DL 8.3 MG/DL Total Bilirubin 0.3 MG/DL 0.3 MG/DL Aspartate Amino Transf 92 U/L 84 U/L (AST/SGOT) Alanine Aminotransferase 70 U/L 69 U/L (ALT/SGPT) Alkaline Phosphatase 125 U/L 124 U/L Total Protein 6.1 GM/DL 6.1 GM/DL Albumin 1.7 GM/DL 1.7 GM/DL Magnesium Level 2.8 MG/DL Imaging Chest X-Ray 09/15/16 0600 Signed Impressions: Service Date/Time: Thursday, September 15, 2016 03:52 - CONCLUSION: Persistent and unchanged bibasilar infiltrates. Taco Haas Jr., MD Chest X-Ray 09/15/16 0000 Signed Impressions: Service Date/Time: Thursday, September 15, 2016 11:00 - CONCLUSION: Placement of tracheostomy tube otherwise not changed. Danyel Escalante MD Liver Ultrasound 09/08/16 0000 Signed Impressions: Service Date/Time: Thursday, September 08, 2016 08:45 - CONCLUSION: 1. Cholelithiasis with distended gallbladder. However, there are no associated findings present to diagnose acute cholecystitis. If there is persistent clinical concern for acute cholecystitis could evaluate for cystic duct obstruction with hepatobiliary scintigraphy. 2. Hepatomegaly with very heterogeneous echotexture and steatosis. Dejan Allison MD Chest X-Ray 09/06/16 0000 Signed Impressions: Service Date/Time: Tuesday, September 06, 2016 11:09 - CONCLUSION: No significant change has occurred. Terry Estrada MD Gall Bladder Ultrasound 08/29/16 0000 Signed Impressions: Service Date/Time: Monday, August 29, 2016 15:21 - CONCLUSION: 1. Hepatomegaly with heterogeneous echotexture throughout the liver. 2. There is a large echogenic area near the neck of the gallbladder suggestive of a stone, but despite its large size, demonstrates no acoustic shadowing in any of the views. Taco Davidson MD CT Angiography 08/15/16 0000 Signed Impressions: Service Date/Time: Monday, August 15, 2016 02:33 - CONCLUSION: 1. No evidence for pulmonary embolism. 2. Multifocal consolidation greatest in the right lower lobe and associated adenopathy. Terry Estrada MD Physical Exam GENERAL: Morbidly obese CF patient, sedated on the vent, NAD SKIN: Skin folds with erythema noted. Has patches of redness on her trunk, and some papules in extremities HEAD: Atraumatic. Normocephalic. No temporal or scalp tenderness. EYES: Pupils equal round and reactive. No scleral icterus. Has conjunctival injection in her left eye ENT: NO nasal discharge. Dry oral mucosa NECK: Large neck. Supple. Trach in place CARDIOVASCULAR: RRR. RESPIRATORY: Clear to auscultation. Breath sounds equal bilaterally. GASTROINTESTINAL: Abdomen soft, obese, non-tender, nondistended. MUSCULOSKELETAL: Extremities without clubbing, cyanosis. Edema. NEUROLOGICAL: Sedated. PIV with no evidence of infection Miller in place with clear urine. Assessment & Plan Remarks Sepsis present on admission. Now with SIRS/Sepsis new. New Rash: ? cause for SIRS. Drug induced: Zosyn IV most likely. Reviewed JUL. PSAE pneumonia: pansensitive. R/O new HCAP/VAP. Morbid Obesity (BMI 45.8 kg/m2) Obstructive Sleep Apnea (supposed to be on CPAP at home and home oxygen 2L) Acute respiratory failure vent dependent. Acute metabolic encephalopathy: infection, meds. Thrombosis of cephalic vein. Renal insufficiency, worsening Recs: Repeat C/S: blood, urine and sputum Continue Cefepime IV Continue Tobramycin nebs. Continue Voriconazole (for Maribell G) Follow cultures MOnitor temps MOnitor progress D/W Sarahi Anthony MD Sep 16, 2016 08:50
[2016-09-16 09:31] LABS: APTT (PATIENT) 31.2 SEC (24.3-30.1)
[2016-09-16] MEDS: HEPARIN-D5W 25,000 U/250 ML 250 ML IV SCH (11:00)
[2016-09-16] MEDS ORDERED: SODIUM CHLOR 0.9% 1000 ML INJ 1,000 ML IV ONE ×3 (13:15→18:15)
--- NOTE | 2016-09-16 13:18 | HHI.CCPN ---
Subjective Remarks/Hospital Course 56-year-old morbidly obese female brought in the emergency department in respiratory distress. She was intubated by ER attending. She has been sick for about a week with symptoms consistent with UTI. She's had fevers and chills. She's been short of breath. She's had fatigue. She has had a cough and chest pain with coughing. The family reports that she's been delirious for the last 3 days. 08/15 Patient is sedated with Diprivan, Versed, Fentanyl and intubated. CTA chest showed no PE multifocal consolidation greatest in RLL. Tmax 100.6 08/16 Patient is sedated with Diprivan and Fentanyl. Afebrile. CXR this morning showed increase consolidation. 08/17 Patient remains sedated and intubated. T:100.4 On PRVC/AC RR 18, Tv 500, IT :1.0 PEEP:10, FIO2 75% 08/18 Remains sedated and intubated. Afebrile. CXR this morning unchanged bibasilar infiltrates and effusions. 08/19 Patient was placed on rotoprone bed last night for proning sedated with Diprivan, Versed and Fentnayl in addition she is on Nimbex. On PRVC/AC RR 20, TV 400, IT:1.1, PEEP:14 and FIO2 80%. Afebrile. 08/20 Patient remains sedated and intubated. Remains on PRVC/AC mode with improvements in her oxygenation on FIO2 50% from 80% yesterday and PEEP:12. 08/21 Patient remains sedated and intubated. On PRVC/AC mode with RR 20, TV 400, IT:1.1, PEEP: 12 and FIO2 50%. Afebrile. 08/22 No acute events overnight. Remains sedated, intubated and on Nimbex.. T: 99.8. On PRVC mode with PEP: 12, FIO2 50%. CXR from yesterday showed better aeration, RLL infiltrate unchanged. 08/23 Chest x-ray worsening. Methylprednisolone taper to twice a day by pulmonary. The patient's FiO2 was found to be 100% this a.m., will continue to wean. 08/24: 1 desat episode yesterday when supine. still remains prone now. no vasopressors. sedated and paralyzed. 08/25: flolan added yesterday. fio2 down to 60%. remained supine all night. still on neuromuscular blockade. net -500cc/24h. 08/26: good diuresis. remained supine. fio2 70%. weaning flolan. remains with significant respiratory support and high peep despite 6L diuresis overnight. Cr still stable. 08/27: continues with good diuresis. net negative 3L/24h. fio2 down to 55%. flolan off. still high peep. not ready for SBT. more agitated today. Cr remains stable despite aggressive diuresis. 08/28: diuresis continues. -3.3L/24h. spiked fever overnight with a jump in wbc to 16 this AM. fio2 60%, but her pulmonary improvements have plateaued at this point. still on peep 12. 08/29: net -1.7L/24h. Cr starting to rise. still spiking fevers despite vanc/ cefepime added yesterday. wbc continues to rise. clinically appears infected, although unclear source. peep 10, fio2 60%. will likely need trach. 08/30: net +800cc, but Cr downtrending. appears clinically euvolemic. fever curve downtrending. wbc downtrending. on 40% fio2, peep 8 today. still following commands. 08/31: failed SBT after only 45 minutes yesterday. intubated for > 2 weeks at this point. will attempt to pursue trach/peg today. will continue with pulmonary strengthening. daily SBTs. 09/01 CXR showing increasing bibasilar infiltrate. Failed C Pap trial in 5 minutes due to severe tachypnea. PEG tube today. Family has not decided on trach yet 09/02: Patient febrile to 101.1, CXR increased infiltrate Tmax Tmax 101.1. Currently 9.7 left upper lung and right lower lobe. Pancultured. Cefepime added today and one dose of vancomycin. Continues to fail C Pap trial due to tachypnea and respiratory distress 09/03: Remains hypoxemic on 75% oxygen with new pneumonia. Sputum culture 09/02/16 with GNR. Family agreeable for tracheostomy but patient is not stable at this point for trach 09/04: still on 70% fio2. still hypoxic. pneumonia persists. needs trach, but too unstable at this point. 09/05: remains on 75% fio2. pseudomonas sensitivities came back resistant to carbapenems, intermediate to levaquin. still spiking fevers. not clinically improving. wbc remains elevated. 09/06: Remains on 12 of PEEP and FiO2 75%. Zosyn and tobramycin started yesterday. WBC count trending down today 11.5 from 13.1. Remains heavily sedated for ventilator synchrony. MAXIMUM TEMPERATURE 100.3 09/07: Continues to spike fever. CXR unchanged. WBC count improving. PEEP 14. FiO2 60%. Will start IV Bumex 1mg IV q12 09/09: Tolerating tube feeds at goal. Afebrile. No documented bowel movement. Currently sedated on the ventilator 09/10: Tmax 99.7. Currently 99.4. No bowel movement yesterday. None document since 09/04. Arousable on the ventilator 09/11: Tmax 102.6. Currently 100. Positive BM. Arousable on the ventilator. Tolerating tube feeds. Central line changed yesterday. Plan for bronchoscopy at 1 PM. 09/12: Tmax 100.1. Currently afebrile. Follows commands today. Wiggles toes and give thumbs up appropriately. MRI brain canceled. Tolerating tube feeding with positive BM. Tracheostomy currently planned for . 09/13: Tmax 102. Again on sedation vacation falls commands by wiggling toes bilaterally and giving thumbs up bilaterally appropriate. Tolerating tube feeding with positive BM. Tracheostomy planned for tomorrow with Dr. Ortega. 09/14: Low grade fever. CXR showing more prominent infiltrate on the right lower lobe and left upper lobe. WBC trending up still in normal range. Patient is on 40% FiO2 but continues to fail CPAP due to tachypnea 09/15: Remains intubated sedated, unable to wean off the vent. Plan for tracheostomy today with Dr. Ortega. Continues to have low grade fever. CXR with persistent bibasilar infiltrates Subjective 09/16: Tmax 101.1. Currently 100.7. Awake and alert. Following commands. Objective Vital Signs Date Time Temp Pulse Resp B/P Pulse Ox O2 Delivery O2 Flow Rate FiO2 09/16/16 12:00 85 09/16/16 12:00 50 09/16/16 11:49 96 09/16/16 08:00 100.7 20 107/60 Intake and Output 09/15/16 09/15/16 09/16/16 08:00 16:00 00:00 Intake Total 246 ml 314 ml Output Total 250 ml 200 ml Balance -4 ml 114 ml Result Diagram: 09/15/16 0324 09/15/16 0324 Other Results Microbiology Date/Time Procedure Status Source Growth 09/16/16 11:08 Aerobic Blood Culture Received Blood Peripheral Pending 09/16/16 11:08 Anaerobic Blood Culture Received Blood Peripheral Pending 09/12/16 09:00 Urine Culture - Final Complete Urine Catheterized Urine Maribell Glabrata Maribell Parapsilosis 09/11/16 13:40 Gram Stain - Final Complete Bronchial Washings Bronchial 09/11/16 13:40 Bronchial Culture - Final Complete Bronchial Washings Bronchial NO GROWTH IN 48 HOURS. 09/11/16 13:40 Fungal Smear - Final Resulted Bronchial Washings Bronchial NO FUNGAL ELEMENTS SEEN. 09/11/16 13:40 Fungal Culture Resulted Bronchial Washings Bronchial Pending 09/11/16 13:40 Acid Fast Stain - Final Resulted Bronchial Washings Bronchial NO ACID FAST BACILLI SEEN 09/11/16 13:40 Mycobacterial Culture Resulted Bronchial Washings Bronchial Pending Imaging Last Impressions Chest X-Ray 09/15/16 0600 Signed Impressions: Service Date/Time: Thursday, September 15, 2016 03:52 - CONCLUSION: Persistent and unchanged bibasilar infiltrates. Taco Haas Jr., MD Upper Extremity Ultrasound 09/14/16 0000 Signed Impressions: Service Date/Time: August 08:32 - CONCLUSION: There is thrombus within the left subclavian and internal jugular veins. Danyel Escalante MD Lower Extremity Ultrasound 09/13/16 0000 Signed Impressions: Service Date/Time: Tuesday, September 13, 2016 22:33 - CONCLUSION: Normal examination. Leonides Mason MD Liver Ultrasound 09/08/16 0000 Signed Impressions: Service Date/Time: Thursday, September 08, 2016 08:45 - CONCLUSION: 1. Cholelithiasis with distended gallbladder. However, there are no associated findings present to diagnose acute cholecystitis. If there is persistent clinical concern for acute cholecystitis could evaluate for cystic duct obstruction with hepatobiliary scintigraphy. 2. Hepatomegaly with very heterogeneous echotexture and steatosis. Dejan Allison MD Gall Bladder Ultrasound 08/29/16 0000 Signed Impressions: Service Date/Time: Monday, August 29, 2016 15:21 - CONCLUSION: 1. Hepatomegaly with heterogeneous echotexture throughout the liver. 2. There is a large echogenic area near the neck of the gallbladder suggestive of a stone, but despite its large size, demonstrates no acoustic shadowing in any of the views. Taco Davidson MD CT Angiography 08/15/16 0000 Signed Impressions: Service Date/Time: Monday, August 15, 2016 02:33 - CONCLUSION: 1. No evidence for pulmonary embolism. 2. Multifocal consolidation greatest in the right lower lobe and associated adenopathy. Terry Estrada MD Objective Remarks GENERAL: 56 yo female, critically ill currently resting in bed in no acute distress SKIN: Warm and dry. Currently no rash HEAD: Normocephalic. EYES: No scleral icterus. No injection or drainage. NECK: trachea midline. Tracheostomy is currently clean dry and intact will packed Neck is obese. Left IJ clean dry and intact CARDIOVASCULAR: RRR. S1, S2 no S4 . No murmur RESPIRATORY: Breath sounds equal mahogany but distant, few basilar crackles GASTROINTESTINAL: Abdomen obese, soft, non-tender, hypoactive active bowel sounds MUSCULOSKELETAL: Trace bilateral lower extremity edema Neuro: RASS -2. follows commands very weakly on sedation hold. Positive gag and corneal reflex. A/P Problem List: (1) ARDS (adult respiratory distress syndrome) ICD Code: J80 Status: Acute (2) CHF (congestive heart failure) ICD Code: I50.9 Status: Acute (3) Respiratory failure ICD Code: J96.90 Status: Acute (4) Pneumonia ICD Code: J18.9 Status: Acute Assessment and Plan Neuro/Psych: Acute toxic metabolic encephalopathy Agitated delirium Continue propofol and fentanyl for sedation/analgesia while intubated. Goal RASS -2. Daily sedation vacation Continue Seroquel 50mg po q8h for delirium and oxycodone 10mg po q4h femi for pain. EEG 09/09 moderate to severe encephalopathy Pulm: Acute hypercapnic and hypoxemic respiratory failure ARDS Pneumonia community-acquired, now with HCAP with carbapenem-resistant pseudomonas Probable JOE On PRVC/AC RR 20, TV 600, PEEP 10, IT: 1.1 and FIO2 0.50. Decrease FIO2 as tiki. for goal spo2 > 88% Bronchodilator therapy every 4 hours and as needed ICU vent bundle. Pulm is following- Dr. Beck Gen surgery Dr. Ortega status post purged history gasping 09/15 CV: Hypertension Dyslipidemia Elevated troponin - likely strain Monitor HR and BP keep MAP>65mmg Echo 08/14 showed EF 65-70% mild AR/TR Home medications HCTZ 12.5 mill grams daily currently on hold Home medication lovastatin 20 mg by mouth daily switched to Pravachol 20 mg a night. : Maintain Miller while on diuretics Bumex 1 mg once a day - Bumex due to increase in BUN/creat s/p exchange Miller with funguria Monitor renal function, I/O's GI: Elevated transaminases Cholelithiasis Monitor LFT's ( trending down), on Protonix 40mg daily for GI prophylaxis US liver: Fatty liver and cholelithiasis. Repeat 09/08 revealed cholelithiasis with no acute signs of cholecystitis. Recommend a HIDA scan if indicated On TF Glucerna 1.5 @ 45ml/hr with 2 packets of been a protein 3 times a day minimal residual. On hold for trach s/p PEG placement 09/01/[address] Ritter Prevacid 30 mg daily for GI prophylaxis Colace/Senokot for bowel regimen. Lactulose daily added ID: Pseudomonas pneumonia Funguria Pertinent cultures blood and sputum cx 08/15- NG strep pneumonia and Legionella urinary Ag negative Blood cultures 08/28: NGTD C Diff negative 08/28. Lines changed 08/28. Sputum 08/30 - Pseudomonas Sputum 09/02 PSAE, resistant to carbapenem, intermediate to Levaquin. 09/07 - urine -Maribell Guilliermondii 09/07 - blood cultures 2 - no growth 09/09 - urine -strep veridians, Maribell parapsilosis 09/10 - blood cultures 2 -no growth 09/11 - broch washings - pending 09/12 - urine -Maribell glabrata and parapsilosis 09/16 - blood cultures 2 - - Dcd cefepime/Levaquin on 09/05. started on Zosyn 4.5gm iv q6h and tobramycin 7 mg/kg/day. Zosyn discontinued secondary to rash Currently on cefepime and tobramycin aerosols per infectious disease Vfend day #6 200 every 12 - ID following Heme: Normocytic anemia Left IJ/subclavian nonocclusive thrombus Monitor CBC No indication for transfusion of blood product at this time Currently heparin drip at 2000 units an hour and transition to Coumadin once stable Endo: Diabetes mellitus Hypothyroidism on SSI (medium scale) for glycemic control On Synthroid 200mcg daily. TSH 1.37 FEN: Hypokalemia - resolved ICU electrolyte protocol initiated. GI prophylaxis- Prevacid per tube. DVT prophylaxis Heparin SQ, SCDs Lines: Peripheral IV. - Miller - PEG 09/01/16 - Trach 09/15 Critical Care: The total critical care time was 35 minutes. Time to perform other separately billable procedures was not included in the critical care time. Problem Qualifiers (1) CHF (congestive heart failure): Qualified Code: I50.9 - Acute congestive heart failure, unspecified congestive heart failure type (2) Respiratory failure: Qualified Code: J96.02 - Acute respiratory failure with hypercapnia (3) Pneumonia: Qualified Code: J18.9 - Pneumonia of both lungs due to infectious organism, unspecified part of lung Fadi Villa MD Sep 16, 2016 13:18
[2016-09-16] MEDS: ALBUMIN HUMAN 25% 25 GM/100 ML BAGP IV SCH ×2 (13:41→18:00)
--- NOTE | 2016-09-16 16:57 | HHI.PR ---
Subjective Subjective Notes ROGE, on vent Objective Vitals/I&O Vital Signs Date Time Temp Pulse Resp B/P Pulse Ox O2 Delivery O2 Flow Rate FiO2 09/16/16 16:09 94 50 09/16/16 16:00 98.8 87 20 107/58 Labs Laboratory Tests Test 09/15/16 09/16/16 22:59 08:55 Activated Partial 34.4 31.2 Thromboplast Time Date/Time Procedure Status Source Growth 09/16/16 11:08 Aerobic Blood Culture Received Blood Peripheral Pending 09/16/16 11:08 Anaerobic Blood Culture Received Blood Peripheral Pending 09/12/16 09:00 Urine Culture - Final Complete Urine Catheterized Urine Maribell Glabrata Maribell Parapsilosis Narrative Exam trach site clean, intact, functioning well A/P Assessment and Plan 56yo f s/p trach, trach site clean, intact, functioning well, will sign off. Valentino Pearson MD Sep 16, 2016 16:57
[2016-09-16 17:13] LABS: AUTOMATED NEUTROPHIL # 5.4 TH/MM3 (1.8-7.7); BASOPHIL # 0.1 TH/MM3 (0-0.2); BASOPHIL % 1.3 % (0.0-2.0); EOSINOPHIL # 1.1 TH/MM3 (0-0.4); HEMATOCRIT 28.3 % (35.0-46.0); LYMPH % 20.1 % (9.0-44.0); LYMPHOCYTE # 1.9 TH/MM3 (1.0-4.8); MEAN CELL VOLUME 88.1 FL (80.0-100.0); MEAN CORPUSCULAR HEMOGLOBIN 27.9 PG (27.0-34.0); MEAN CORPUSCULAR HGB CONC 31.6 % (32.0-36.0); MONO % 10.1 % (0.0-8.0); NEUT % 56.5 % (16.0-70.0); PLATELET COUNT 180 TH/MM3 (150-450); RED BLOOD COUNT 3.21 MIL/MM3 (4.00-5.30); RED CELL DISTRIBUTION WIDTH 18.2 % (11.6-17.2); WHITE BLOOD COUNT 9.5 TH/MM3 (4.0-11.0)
[2016-09-16 17:16] LABS: APTT (PATIENT) 60.4 SEC (24.3-30.1); HEMO FLAGS AUTO DIFF
[2016-09-16 18:02] LABS: BICARBONATE 26.4 MEQ/L (21.0-32.0); MAGNESIUM 3.1 MG/DL (1.5-2.5); POTASSIUM 5.8 MEQ/L (3.5-5.1)
[2016-09-16] MEDS ORDERED: RESP: ALBUTEROL 2.5 MG/3 ML NEB (SCH) NEB ONE (18:15)
[2016-09-16] MEDS ORDERED: CALCIUM GLUCONATE 10% 1 GM/10 ML VIAL SLOW IVP ONE (18:15)
[2016-09-16] MEDS ORDERED: DEXTROSE 50% IN WATER 50 ML VIAL(D50) IV PUSH ONE (18:15)
[2016-09-16] MEDS ORDERED: SODIUM POLYSTYRENE SULFONATE SUSP 15 GM/60 ML CUP PO ONE (18:15)
[2016-09-16] MEDS ORDERED: SODIUM BICARBONATE 8.4% SOLN 50 MEQ/50 ML VIAL SLOW IVP ONE (18:15)
[2016-09-16] MEDS ORDERED: INSULIN HUMAN REGULAR 1,000 UNITS/10 ML VIAL IV PUSH ONE (18:30)
[2016-09-16 19:08] LABS: BANDS 9 % (0-6); BASOPHILS 2 % (0-2); CORRECTED NUCLEATED RBC 3 /100 WBC (0-0); EOSINOPHILS 7 % (0-4); MYELOCYTES 2 % (0-0); NEUTROPHIL # MANUAL DIFF 6.2 TH/MM3 (1.8-7.7); POLYS (SEG NEUTROPHILS) 53 % (16-70); PROMYELOCYTES 1 % (0-0); WBC DIFF SAMPLE 100
[2016-09-16 19:11] LABS: KERATOCYTES OCC (NORMAL); PLATELET ESTIMATE SMEAR NORMAL (NORMAL); POLYCHROMASIA 2.1 % (0.0-1.9)
[2016-09-16 19:12] LABS: PLATELET MORPHOLOGY ENLARGED (NORMAL); SCAN/DIFF FINAL DIFF MANUAL
[2016-09-16] MEDS: PRAVASTATIN SOD 20 MG TAB PO SCH (21:00)
[2016-09-16 21:46] LABS: BACTERIA, URINE RARE /hpf; BLOOD, URINE MOD (NEG); GLUCOSE,URINE NEG (NEG); KETONE, URINE NEG (NEG); MUCUS URINE FEW /lpf (OCC); NITRITE,URINE NEG (NEG); PH, URINE 5.5 (5.0-8.5); SQUAMOUS EPITHELIAL CELL URINE 4 /hpf (0-5); URINE COLOR YELLOW (YELLW/STRAW)
[2016-09-16 21:47] LABS: COMMENT (UR) CATH-CULTURE IND; CULTURE IF INDICATED CATH CULTURE IND
[2016-09-17] VITALS (18 sets, daily range): BP systolic 109–123; BP diastolic 61–84; PULSE 80–103; RESP 20–26; TEMP 98.1–98.9; O2SAT 92–95
[2016-09-17] MEDS: fentaNYL DRIP 250 ML IV SCH (00:25)
[2016-09-17] MEDS: PROPOFOL 1000 MG/100 ML INJ 100 ML IV SCH ×2 (00:25→12:50)
[2016-09-17] MEDS: ALBUMIN HUMAN 25% 25 GM/100 ML BAGP IV SCH ×2 (00:28→08:30)
[2016-09-17] MEDS: oxyCODONE HCL ORAL CONC 20 MG/ML SYRINGE PO SCH ×6 (00:54→20:10)
[2016-09-17] MEDS: RESP: ALBUTEROL 2.5 MG/IPRATROPIUM 0.5 MG NEB (SCH) INH ×4 (03:01→22:15)
[2016-09-17] MEDS: CHLORHEXIDINE GLUCONATE 2 % 1 PACK (2 CLOTHS) TOP SCH (04:00)
[2016-09-17] MEDS: CEFEPIME INJ 2,000 MG in SODIUM CHLORIDE 0.9% INJ 100 ML IV SCH (05:21)
[2016-09-17] MEDS: LEVOTHYROXINE SODIUM 200 MCG TAB PO SCH (05:21)
[2016-09-17] MEDS: QUEtiapine FUMARATE 25 MG TAB PO SCH ×3 (05:22→22:10)
[2016-09-17] MEDS: RESP: TOBRAMYCIN SULFATE 80 MG/2 ML NEB NEB SCH ×2 (07:31→20:22)
[2016-09-17] MEDS: INSULIN NovoLIN REGULAR SUPPLEMENTAL SCALE SQ SCH ×2 (08:00→20:00)
[2016-09-17 08:16] LABS: HEMATOCRIT 27.2 % (35.0-46.0); MEAN CELL VOLUME 87.9 FL (80.0-100.0); MEAN CORPUSCULAR HEMOGLOBIN 28.6 PG (27.0-34.0); MEAN CORPUSCULAR HGB CONC 32.6 % (32.0-36.0); PLATELET COUNT 174 TH/MM3 (150-450); RED CELL DISTRIBUTION WIDTH 18.3 % (11.6-17.2); WHITE BLOOD COUNT 6.5 TH/MM3 (4.0-11.0)
[2016-09-17 08:21] LABS: HEMO FLAGS AUTO DIFF
--- NOTE | 2016-09-17 08:31 | HHI.CCPN ---
Subjective Remarks/Hospital Course 56-year-old morbidly obese female brought in the emergency department in respiratory distress. She was intubated by ER attending. She has been sick for about a week with symptoms consistent with UTI. She's had fevers and chills. She's been short of breath. She's had fatigue. She has had a cough and chest pain with coughing. The family reports that she's been delirious for the last 3 days. 08/15 Patient is sedated with Diprivan, Versed, Fentanyl and intubated. CTA chest showed no PE multifocal consolidation greatest in RLL. Tmax 100.6 08/16 Patient is sedated with Diprivan and Fentanyl. Afebrile. CXR this morning showed increase consolidation. 08/17 Patient remains sedated and intubated. T:100.4 On PRVC/AC RR 18, Tv 500, IT :1.0 PEEP:10, FIO2 75% 08/18 Remains sedated and intubated. Afebrile. CXR this morning unchanged bibasilar infiltrates and effusions. 08/19 Patient was placed on rotoprone bed last night for proning sedated with Diprivan, Versed and Fentnayl in addition she is on Nimbex. On PRVC/AC RR 20, TV 400, IT:1.1, PEEP:14 and FIO2 80%. Afebrile. 08/20 Patient remains sedated and intubated. Remains on PRVC/AC mode with improvements in her oxygenation on FIO2 50% from 80% yesterday and PEEP:12. 08/21 Patient remains sedated and intubated. On PRVC/AC mode with RR 20, TV 400, IT:1.1, PEEP: 12 and FIO2 50%. Afebrile. 08/22 No acute events overnight. Remains sedated, intubated and on Nimbex.. T: 99.8. On PRVC mode with PEP: 12, FIO2 50%. CXR from yesterday showed better aeration, RLL infiltrate unchanged. 08/23 Chest x-ray worsening. Methylprednisolone taper to twice a day by pulmonary. The patient's FiO2 was found to be 100% this a.m., will continue to wean. 08/24: 1 desat episode yesterday when supine. still remains prone now. no vasopressors. sedated and paralyzed. 08/25: flolan added yesterday. fio2 down to 60%. remained supine all night. still on neuromuscular blockade. net -500cc/24h. 08/26: good diuresis. remained supine. fio2 70%. weaning flolan. remains with significant respiratory support and high peep despite 6L diuresis overnight. Cr still stable. 08/27: continues with good diuresis. net negative 3L/24h. fio2 down to 55%. flolan off. still high peep. not ready for SBT. more agitated today. Cr remains stable despite aggressive diuresis. 08/28: diuresis continues. -3.3L/24h. spiked fever overnight with a jump in wbc to 16 this AM. fio2 60%, but her pulmonary improvements have plateaued at this point. still on peep 12. 08/29: net -1.7L/24h. Cr starting to rise. still spiking fevers despite vanc/ cefepime added yesterday. wbc continues to rise. clinically appears infected, although unclear source. peep 10, fio2 60%. will likely need trach. 08/30: net +800cc, but Cr downtrending. appears clinically euvolemic. fever curve downtrending. wbc downtrending. on 40% fio2, peep 8 today. still following commands. 08/31: failed SBT after only 45 minutes yesterday. intubated for > 2 weeks at this point. will attempt to pursue trach/peg today. will continue with pulmonary strengthening. daily SBTs. 09/01 CXR showing increasing bibasilar infiltrate. Failed C Pap trial in 5 minutes due to severe tachypnea. PEG tube today. Family has not decided on trach yet 09/02: Patient febrile to 101.1, CXR increased infiltrate Tmax Tmax 101.1. Currently 9.7 left upper lung and right lower lobe. Pancultured. Cefepime added today and one dose of vancomycin. Continues to fail C Pap trial due to tachypnea and respiratory distress 09/03: Remains hypoxemic on 75% oxygen with new pneumonia. Sputum culture 09/02/16 with GNR. Family agreeable for tracheostomy but patient is not stable at this point for trach 09/04: still on 70% fio2. still hypoxic. pneumonia persists. needs trach, but too unstable at this point. 09/05: remains on 75% fio2. pseudomonas sensitivities came back resistant to carbapenems, intermediate to levaquin. still spiking fevers. not clinically improving. wbc remains elevated. 09/06: Remains on 12 of PEEP and FiO2 75%. Zosyn and tobramycin started yesterday. WBC count trending down today 11.5 from 13.1. Remains heavily sedated for ventilator synchrony. MAXIMUM TEMPERATURE 100.3 09/07: Continues to spike fever. CXR unchanged. WBC count improving. PEEP 14. FiO2 60%. Will start IV Bumex 1mg IV q12 09/09: Tolerating tube feeds at goal. Afebrile. No documented bowel movement. Currently sedated on the ventilator 09/10: Tmax 99.7. Currently 99.4. No bowel movement yesterday. None document since 09/04. Arousable on the ventilator 09/11: Tmax 102.6. Currently 100. Positive BM. Arousable on the ventilator. Tolerating tube feeds. Central line changed yesterday. Plan for bronchoscopy at 1 PM. 09/12: Tmax 100.1. Currently afebrile. Follows commands today. Wiggles toes and give thumbs up appropriately. MRI brain canceled. Tolerating tube feeding with positive BM. Tracheostomy currently planned for . 09/13: Tmax 102. Again on sedation vacation falls commands by wiggling toes bilaterally and giving thumbs up bilaterally appropriate. Tolerating tube feeding with positive BM. Tracheostomy planned for tomorrow with Dr. Ortega. 09/14: Low grade fever. CXR showing more prominent infiltrate on the right lower lobe and left upper lobe. WBC trending up still in normal range. Patient is on 40% FiO2 but continues to fail CPAP due to tachypnea 09/15: Remains intubated sedated, unable to wean off the vent. Plan for tracheostomy today with Dr. Ortega. Continues to have low grade fever. CXR with persistent bibasilar infiltrates 09/16: Tmax 101.1. Currently 100.7. Awake and alert. Following commands. Subjective 09/17: Afebrile. Currently on PSV trial. Tolerating tube feeds. One bowel movement. Noted decreased urine output past 48 hours. Diuretics have been discontinued. This a.m. creatinine currently pending. Objective Vital Signs Date Time Temp Pulse Resp B/P Pulse Ox O2 Delivery O2 Flow Rate FiO2 09/17/16 08:04 45 09/17/16 07:32 93 09/17/16 06:00 103 09/17/16 04:00 98.3 23 116/84 Intake and Output 09/16/16 09/16/16 09/17/16 08:00 16:00 00:00 Intake Total 305 ml 1298 ml 3249 ml Output Total 200 ml 125 ml 125 ml Balance 105 ml 1173 ml 3124 ml Result Diagram: 09/17/16 0807 09/16/162051 Other Results Microbiology Date/Time Procedure Status Source Growth 09/16/16 18:25 Urine Culture Received Urine Catheterized Urine Pending 09/16/16 15:05 Gram Stain - Final Resulted Sputum Endotracheal 09/16/16 15:05 Sputum Culture Resulted Sputum Endotracheal Pending 09/16/16 11:08 Aerobic Blood Culture Received Blood Peripheral Pending 09/16/16 11:08 Anaerobic Blood Culture Received Blood Peripheral Pending 09/12/16 09:00 Urine Culture - Final Complete Urine Catheterized Urine Maribell [place] Maribell Parapsilosis Imaging Last Impressions Chest X-Ray 09/15/16 0600 Signed Impressions: Service Date/Time: Thursday, September 15, 2016 03:52 - CONCLUSION: Persistent and unchanged bibasilar infiltrates. Taco Haas Jr., MD Upper Extremity Ultrasound 09/14/16 0000 Signed Impressions: Service Date/Time: August 08:32 - CONCLUSION: There is thrombus within the left subclavian and internal jugular veins. Danyel Escalante MD Lower Extremity Ultrasound 09/13/16 0000 Signed Impressions: Service Date/Time: Tuesday, September 13, 2016 22:33 - CONCLUSION: Normal examination. Leonides Mason MD Liver Ultrasound 09/08/16 0000 Signed Impressions: Service Date/Time: Thursday, September 08, 2016 08:45 - CONCLUSION: 1. Cholelithiasis with distended gallbladder. However, there are no associated findings present to diagnose acute cholecystitis. If there is persistent clinical concern for acute cholecystitis could evaluate for cystic duct obstruction with hepatobiliary scintigraphy. 2. Hepatomegaly with very heterogeneous echotexture and steatosis. Dejan Allison MD Gall Bladder Ultrasound 08/29/16 0000 Signed Impressions: Service Date/Time: Monday, August 29, 2016 15:21 - CONCLUSION: 1. Hepatomegaly with heterogeneous echotexture throughout the liver. 2. There is a large echogenic area near the neck of the gallbladder suggestive of a stone, but despite its large size, demonstrates no acoustic shadowing in any of the views. Taco Davidson MD CT Angiography 08/15/16 0000 Signed Impressions: Service Date/Time: Monday, August 15, 2016 02:33 - CONCLUSION: 1. No evidence for pulmonary embolism. 2. Multifocal consolidation greatest in the right lower lobe and associated adenopathy. Terry Estrada MD Objective Remarks GENERAL: 56 yo female, critically ill currently resting in bed in no acute distress SKIN: Warm and dry. Currently no rash HEAD: Normocephalic. EYES: No scleral icterus. No injection or drainage. NECK: trachea midline. Tracheostomy is currently clean dry and intact will packed Neck is obese. Left IJ clean dry and intact CARDIOVASCULAR: RRR. S1, S2 no S4 . No murmur RESPIRATORY: Breath sounds equal mahogany but distant, few basilar crackles GASTROINTESTINAL: Abdomen obese, soft, non-tender, hypoactive active bowel sounds MUSCULOSKELETAL: Trace to 1+ lower extremity edema Neuro: Currently following commands moving upper and lower extremity spontaneously Positive gag and corneal reflex. A/P Problem List: (1) ARDS (adult respiratory distress syndrome) ICD Code: J80 Status: Acute (2) CHF (congestive heart failure) ICD Code: I50.9 Status: Acute (3) Respiratory failure ICD Code: J96.90 Status: Acute (4) Pneumonia ICD Code: J18.9 Status: Acute Assessment and Plan Neuro/Psych: Acute toxic metabolic encephalopathy Agitated delirium Currently off propofol and fentanyl for sedation/analgesia while intubated. Goal RASS -2. Daily sedation vacation Continue Seroquel 50mg po q8h for delirium and oxycodone 10mg po q4h femi for pain. EEG 09/09 moderate to severe encephalopathy Pulm: Acute hypercapnic and hypoxemic respiratory failure ARDS Pneumonia community-acquired, now with HCAP with carbapenem-resistant pseudomonas Probable JOE On PRVC/AC RR 20, TV 600, PEEP 10, IT: 1.1 and FIO2 0.50. Decrease FIO2 as tiki. for goal spo2 > 88% Currently on PSV trial 15/10 at 40% Bronchodilator therapy every 4 hours and as needed ICU vent bundle. Pulm is following- Dr. Beck Gen surgery Dr. Ortega status post percutaneous tracheostomy 09/15 CV: Hypertension Dyslipidemia Elevated troponin - likely strain Monitor HR and BP keep MAP>65mmg Echo 08/14 showed EF 65-70% mild AR/TR Home medications HCTZ 12.5 mill grams daily currently on hold Home medication lovastatin 20 mg by mouth daily switched to Pravachol 20 mg a night. Renal/: Acute kidney injury A.m. creatinine currently pending. 2.5 yesterday Received crystalloid and colloid boluses yesterday. Bumex discontinued 09/15 Urine eosinophils negative. Renal ultrasound pending 450 cc urine past 24 hours. s/p exchange Miller with funguria Monitor renal function, I/O's GI: Elevated transaminases Cholelithiasis Monitor LFT's ( trending down), on Protonix 40mg daily for GI prophylaxis US liver: Fatty liver and cholelithiasis. Repeat 09/08 revealed cholelithiasis with no acute signs of cholecystitis. Recommend a HIDA scan if indicated On TF Glucerna 1.5 @ 45ml/hr with 2 packets of been a protein 3 times a day minimal residual. Switch to Nepro's 45 cc an hour with increased phosphorus s/p PEG placement 09/01/[address] Ritter Prevacid 30 mg daily for GI prophylaxis Colace/Senokot for bowel regimen. Lactulose daily added ID: Pseudomonas pneumonia Funguria Pertinent cultures blood and sputum cx 08/15- NG strep pneumonia and Legionella urinary Ag negative Blood cultures 08/28: NGTD C Diff negative 08/28. Lines changed 08/28. Sputum 08/30 - Pseudomonas Sputum 09/02 PSAE, resistant to carbapenem, intermediate to Levaquin. 09/07 - urine -Maribell Guilliermondii 09/07 - blood cultures 2 - no growth 09/09 - urine -strep veridians, Maribell parapsilosis 09/10 - blood cultures 2 -no growth 09/11 - broch washings -no growth to date 09/12 - urine -Maribell glabrata and parapsilosis 09/16 - blood cultures 2 - pending 09/16 - sputum - pending 09/16 - urine - pending - Dcd cefepime/Levaquin on 09/05. started on Zosyn 4.5gm iv q6h and tobramycin 7 mg/kg/day. Zosyn discontinued secondary to rash Currently on cefepime and tobramycin aerosols per infectious disease Vfend day #7 200 every 12 - ID following Heme: Normocytic anemia Left IJ/subclavian nonocclusive thrombus Monitor CBC No indication for transfusion of blood product at this time Daily holding heparin drip for DVT with oozing around tracheostomy. Resume the next day or 2 Endo: Diabetes mellitus Hypothyroidism on SSI (medium scale) for glycemic control On Synthroid 200mcg daily. TSH 1.37 FEN: Hyperkalemia Received D 50/insulin/bicarbonate, calcium overnight. Recheck potassium this AM. Last 4.9 GI prophylaxis- Prevacid per tube. DVT prophylaxis Heparin SQ, SCDs Lines: Peripheral IV. - Miller - PEG 09/01/16 - Trach 09/15 Critical Care: The total critical care time was 35 minutes. Time to perform other separately billable procedures was not included in the critical care time. Problem Qualifiers (1) CHF (congestive heart failure): Qualified Code: I50.9 - Acute congestive heart failure, unspecified congestive heart failure type (2) Respiratory failure: Qualified Code: J96.02 - Acute respiratory failure with hypercapnia (3) Pneumonia: Qualified Code: J18.9 - Pneumonia of both lungs due to infectious organism, unspecified part of lung Fadi Villa MD Sep 17, 2016 08:31
[2016-09-17 08:45] LABS: ALT (GPT) 37 U/L (10-53); ANION GAP 12 MEQ/L (5-15); AST (GOT) 41 U/L (15-37); BICARBONATE 23.7 MEQ/L (21.0-32.0); BLOOD UREA NITROGEN 66 MG/DL (7-18); CHLORIDE 101 MEQ/L (98-107); GLOMERULAR FILTRATION RATE 19 ML/MIN (>89); MAGNESIUM 2.8 MG/DL (1.5-2.5); POTASSIUM 4.7 MEQ/L (3.5-5.1); SODIUM (NA) 137 MEQ/L (136-145)
[2016-09-17] MEDS ORDERED: FLUCONAZOLE 400 MG PREMIX BAG 200 ML IV ONE (08:45)
--- NOTE | 2016-09-17 08:46 | HHI.IDPN ---
Subjective Subjective Remarks ID COVERAGE Admitte with F/C, Cough, SOB, congestion, confusion, and CP. Patient is admitted to ICU with respiratory failure, CHF, pneumonia, probable underlying COPD. Patient was intubated and placed on mechanical ventilation. NOt weaning and had trach done 09/15. Has been having fevers. ON Rx for PSAE PNA and C glabrat UTI Notes reviewed Temps ok overnight UO low Creatinine continues to rise Urine for eos negative On CPAP this morning WBC normal No diarrhea No central line, has clot in her LUE, on heparin Antibiotics Cefepime IV tobramycin nebs Voriconazole Lines PIV Past Medical History reviewed. Allergies: Coded Allergies: No Known Allergies (Verified , 08/14/16) Objective . Vital Signs Date Time Temp Pulse Resp B/P Pulse Ox O2 Delivery O2 Flow Rate FiO2 09/17/16 08:04 45 09/17/16 07:32 93 45 09/17/16 06:00 103 09/17/16 04:05 93 45 09/17/16 04:00 98.3 103 23 116/84 94 09/17/16 04:00 45 09/17/16 04:00 100 09/17/16 02:00 96 09/17/16 01:04 95 45 09/17/16 00:00 45 09/17/16 00:00 92 09/17/16 00:00 98.1 92 20 123/69 94 09/16/16 22:04 94 50 09/16/16 22:00 94 09/16/16 20:00 50 09/16/16 20:00 97 09/16/16 20:00 98.5 97 21 106/57 97 09/16/16 19:20 93 50 09/16/16 18:00 101 09/16/16 16:09 94 50 09/16/16 16:00 50 09/16/16 16:00 98.8 87 20 107/58 94 09/16/16 16:00 87 09/16/16 14:00 85 09/16/16 12:00 85 09/16/16 12:00 50 09/16/16 12:00 98.7 85 20 102/57 95 09/16/16 11:49 96 50 09/16/16 10:00 86 09/16/16 09/16/16 09/17/16 15:00 23:00 07:00 Intake Total 1298 ml 3249 ml 378 ml Output Total 125 ml 125 ml 175 ml Balance 1173 ml 3124 ml 203 ml IV Total 591 ml 2880 ml 156 ml Tube Feeding 367 ml 269 ml 222 ml Albumin 100 ml 100 ml Other 240 ml Output Urine Total 125 ml 125 ml 175 ml . Laboratory Tests Test 09/16/16 09/17/16 16:36 08:07 White Blood Count 9.5 TH/MM3 6.5 TH/MM3 Red Blood Count 3.21 MIL/MM3 3.10 MIL/MM3 Hemoglobin 9.0 GM/DL 8.9 GM/DL Hematocrit 28.3 % 27.2 % Mean Corpuscular Volume 88.1 FL 87.9 FL Mean Corpuscular Hemoglobin 27.9 PG 28.6 PG Mean Corpuscular Hemoglobin 31.6 % 32.6 % Concent Red Cell Distribution Width 18.2 % 18.3 % Platelet Count 180 TH/MM3 174 TH/MM3 Mean Platelet Volume 9.8 FL 9.1 FL Neutrophils (%) (Auto) 56.5 % % Lymphocytes (%) (Auto) 20.1 % % Monocytes (%) (Auto) 10.1 % % Eosinophils (%) (Auto) 12.0 % % Basophils (%) (Auto) 1.3 % % Neutrophils # (Auto) 5.4 TH/MM3 TH/MM3 Lymphocytes # (Auto) 1.9 TH/MM3 TH/MM3 Monocytes # (Auto) 1.0 TH/MM3 TH/MM3 Eosinophils # (Auto) 1.1 TH/MM3 TH/MM3 Basophils # (Auto) 0.1 TH/MM3 TH/MM3 CBC Comment AUTO DIFF AUTO DIFF Differential Total Cells 100 Counted Neutrophils % (Manual) 53 % Band Neutrophils % 9 % Lymphocytes % 18 % Monocytes % 8 % Eosinophils % 7 % Basophils % 2 % Neutrophils # (Manual) 6.2 TH/MM3 Myelocytes 2 % Promyelocytes 1 % Nucleated Red Blood Cells 3 /100 WBC Differential Comment FINAL DIFF MANUAL Platelet Estimate NORMAL Platelet Morphology Comment ENLARGED Polychromasia 2.1 % Keratocytes OCC Laboratory Tests Test 09/16/16 09/16/16 09/17/16 16:36 20:52 08:07 Sodium Level 134 MEQ/L Potassium Level 5.8 MEQ/L 4.9 MEQ/L Chloride Level 96 MEQ/L Carbon Dioxide Level 26.4 MEQ/L Anion Gap 12 MEQ/L Blood Urea Nitrogen 62 MG/DL Creatinine 2.51 MG/DL Estimat Glomerular Filtration 20 ML/MIN Rate Random Glucose 111 MG/DL Calcium Level 8.3 MG/DL Phosphorus Level 6.6 MG/DL Magnesium Level 3.1 MG/DL Lactic Acid Level 1.0 mmol/L Microbiology Date/Time Procedure Status Source Growth 09/16/16 08:55 Aerobic Blood Culture Received Blood Peripheral Pending 09/16/16 08:55 Anaerobic Blood Culture Received Blood Peripheral Pending 09/16/16 11:08 Aerobic Blood Culture Received Blood Peripheral Pending 09/16/16 11:08 Anaerobic Blood Culture Received Blood Peripheral Pending 09/16/16 15:05 Gram Stain - Final Resulted Sputum Endotracheal 09/16/16 15:05 Sputum Culture Resulted Sputum Endotracheal Pending 09/16/16 18:25 Urine Culture Received Urine Catheterized Urine Pending Imaging Chest X-Ray 09/15/16 0600 Signed Impressions: Service Date/Time: Thursday, September 15, 2016 03:52 - CONCLUSION: Persistent and unchanged bibasilar infiltrates. Taco Haas Jr., MD Chest X-Ray 09/15/16 0000 Signed Impressions: Service Date/Time: Thursday, September 15, 2016 11:00 - CONCLUSION: Placement of tracheostomy tube otherwise not changed. Danyel Escalante MD Liver Ultrasound 09/08/16 0000 Signed Impressions: Service Date/Time: Thursday, September 08, 2016 08:45 - CONCLUSION: 1. Cholelithiasis with distended gallbladder. However, there are no associated findings present to diagnose acute cholecystitis. If there is persistent clinical concern for acute cholecystitis could evaluate for cystic duct obstruction with hepatobiliary scintigraphy. 2. Hepatomegaly with very heterogeneous echotexture and steatosis. Dejan Allison MD Chest X-Ray 09/06/16 0000 Signed Impressions: Service Date/Time: Tuesday, September 06, 2016 11:09 - CONCLUSION: No significant change has occurred. Terry Estrada MD Gall Bladder Ultrasound 08/29/16 0000 Signed Impressions: Service Date/Time: Monday, August 29, 2016 15:21 - CONCLUSION: 1. Hepatomegaly with heterogeneous echotexture throughout the liver. 2. There is a large echogenic area near the neck of the gallbladder suggestive of a stone, but despite its large size, demonstrates no acoustic shadowing in any of the views. Taco Davidson MD CT Angiography 08/15/16 0000 Signed Impressions: Service Date/Time: Monday, August 15, 2016 02:33 - CONCLUSION: 1. No evidence for pulmonary embolism. 2. Multifocal consolidation greatest in the right lower lobe and associated adenopathy. Terry Estrada MD Physical Exam GENERAL: Morbidly obese CF patient, awake, did not focus, NAD, on CPAP SKIN: Has patches of redness on her trunk, and some papules in extremities HEAD: Atraumatic. Normocephalic. No temporal or scalp tenderness. EYES: Pupils equal round and reactive. No scleral icterus. Has conjunctival injection in her left eye ENT: No nasal discharge. Dry oral mucosa NECK: Large neck. Supple. Trach in place CARDIOVASCULAR: Regular rate and rhythm RESPIRATORY: Clear to auscultation. Breath sounds equal bilaterally. GASTROINTESTINAL: Abdomen soft, obese, non-tender, nondistended. MUSCULOSKELETAL: Extremities without clubbing, cyanosis. Edema (+) NEUROLOGICAL: eyes open, did not track of focus PIV with no evidence of infection Miller in place with clear urine. Assessment & Plan Remarks Sepsis present on admission. Now with SIRS/Sepsis new. New Rash: ? cause for SIRS. Drug induced: Zosyn IV most likely. . PSAE pneumonia: pansensitive. R/O new HCAP/VAP. Morbid Obesity (BMI 45.8 kg/m2) Obstructive Sleep Apnea (supposed to be on CPAP at home and home oxygen 2L) Acute respiratory failure vent dependent. Acute metabolic encephalopathy: infection, meds. Thrombosis of cephalic vein. Renal insufficiency, worsening Recs: Follow new C/S: blood, urine and sputum Continue Cefepime IV, decrease dose further Continue Tobramycin nebs. Continue Voriconazole (for Maribell G) Agree with renal US Follow cultures Monitor temps Monitor progress Sarahi iPttman MD Sep 17, 2016 08:45
[2016-09-17 08:47] LABS: ALKALINE PHOSPHATASE 95 U/L (45-117); TOTAL BILIRUBIN ADULT 0.4 MG/DL (0.2-1.0)
[2016-09-17] MEDS: VORICONAZOLE 200 MG TAB PO SCH ×2 (08:50→20:10)
[2016-09-17] MEDS: LANSOPRAZOLE SOLUTAB 30 MG TAB NG SCH (08:50)
[2016-09-17] MEDS: SENNOSIDES SYRUP 8.8 MG/5 ML CUP PO SCH ×2 (08:52→20:09)
[2016-09-17] MEDS: DOCUSATE SODIUM 100 MG/10 ML UDC PO SCH ×2 (08:52→20:28)
[2016-09-17] MEDS: SODIUM CHLORIDE 0.9% FLUSH 10 ML FLUSH IV FLUSH SCH ×2 (08:52→20:12)
[2016-09-17] MEDS: ARTIFICIAL TEARS OPTH SOLN 15 ML BTL EACH EYE SCH ×3 (08:52→17:33)
[2016-09-17] MEDS: SODIUM CHLORIDE 0.9% FLUSH 10 ML FLUSH IVF SCH (08:53)
[2016-09-17] MEDS: BENEPROTEIN POWDER 1 PACK G-TUBE SCH ×3 (09:00→17:33)
[2016-09-17] MEDS ORDERED: SODIUM CHLOR 0.9% 1000 ML INJ 1,000 ML IV ONE ×2 (09:15)
[2016-09-17] MEDS ORDERED: ALBUMIN HUMAN 25% 25 GM/100 ML BAGP IV ONE (09:21)
[2016-09-17 09:31] LABS: BETA HCG QUANT 2 MIU/ML (0-5)
[2016-09-17 09:41] LABS: BANDS 12 % (0-6); BASOPHILS 2 % (0-2); CORRECTED NUCLEATED RBC 2 /100 WBC (0-0); EOSINOPHILS 9 % (0-4); MYELOCYTES 2 % (0-0); POLYS (SEG NEUTROPHILS) 48 % (16-70); WBC DIFF SAMPLE 100
[2016-09-17 09:42] LABS: PLATELET ESTIMATE SMEAR NORMAL (NORMAL); PLATELET MORPHOLOGY NORMAL (NORMAL); POLYCHROMASIA 2.4 % (0.0-1.9); SCAN/DIFF FINAL DIFF MANUAL
--- NOTE | 2016-09-17 15:33 | RADRPT ---
EXAM DATE/TIME: 09/17/2016 13:31 [facility] COMPARISON: No previous studies available for comparison. INDICATIONS : Increased BUN and Creatinine. MEDICAL HISTORY : Hypercholesterolemia. Hypothyroidism. Hypertension. Headaches. Sleep apnea. Anxiety. SURGICAL HISTORY : Tubal ligation. Partial hysterectomy. ENCOUNTER: Subsequent ACUITY: 1 day PAIN SCORE: Nonresponsive. LOCATION: Bilateral flank MEASUREMENTS: RIGHT KIDNEY: 13.7 x 6.6 x 7.9 cm LEFT KIDNEY: 13.0 x 7.7 x 6.7 cm FINDINGS: RIGHT KIDNEY: Renal cortex is normal in thickness and echotexture. No hydronephrosis, stone, or mass. LEFT KIDNEY: Renal cortex is normal in thickness and echotexture. No hydronephrosis, stone, or mass. BLADDER: Nondistended. Miller catheter. CONCLUSION: Negative renal sonogram. Taco Davidson MD on September 17, 2016 at 15:31 Board Certified Radiologist. This report was verified electronically.
[2016-09-17] MEDS: PRAVASTATIN SOD 20 MG TAB PO SCH (20:10)
[2016-09-18] VITALS (19 sets, daily range): BP systolic 108–134; BP diastolic 56–78; PULSE 86–105; RESP 20–27; TEMP 98.2–98.8; O2SAT 9–96
[2016-09-18] MEDS: oxyCODONE HCL ORAL CONC 20 MG/ML SYRINGE PO SCH ×6 (00:30→21:00)
[2016-09-18] MEDS: RESP: ALBUTEROL 2.5 MG/IPRATROPIUM 0.5 MG NEB (SCH) INH ×4 (03:14→20:50)
[2016-09-18] MEDS: CHLORHEXIDINE GLUCONATE 2 % 1 PACK (2 CLOTHS) TOP SCH (04:00)
[2016-09-18] MEDS: QUEtiapine FUMARATE 25 MG TAB PO SCH ×3 (05:12→21:01)
[2016-09-18] MEDS: LEVOTHYROXINE SODIUM 200 MCG TAB PO SCH (05:12)
--- NOTE | 2016-09-18 06:04 | RADRPT ---
EXAM DATE/TIME: 09/18/2016 04:38 [facility] COMPARISON: CHEST SINGLE AP, September 15, 2016, 11:00. INDICATIONS : Respiratory failure. Fever. MEDICAL HISTORY : Congestive heart failure. SURGICAL HISTORY : None. ENCOUNTER: Subsequent ACUITY: 4 - 6 days PAIN SCORE: Non-responsive. LOCATION: Bilateral chest FINDINGS: The tracheostomy tube remains in place. There is scattered infiltrates bilaterally. The heart size is stable. No significant pleural effusions. The bony structures are stable. There is no evidence of pn eumothorax. CONCLUSION: Scattered bilateral pulmonary infiltrates. No significant change. Kieran Ford MD on September 18, 2016 at 6:02 Board Certified Radiologist. This report was verified electronically.
[2016-09-18 06:52] LABS: MEAN CORPUSCULAR HEMOGLOBIN 27.8 PG (27.0-34.0); MEAN CORPUSCULAR HGB CONC 31.9 % (32.0-36.0); PLATELET COUNT 181 TH/MM3 (150-450); RED BLOOD COUNT 3.21 MIL/MM3 (4.00-5.30); RED CELL DISTRIBUTION WIDTH 18.8 % (11.6-17.2); WHITE BLOOD COUNT 6.3 TH/MM3 (4.0-11.0)
[2016-09-18 06:54] LABS: HEMO FLAGS AUTO DIFF
[2016-09-18 07:09] LABS: APTT (PATIENT) 30.9 SEC (24.3-30.1); PROTHROMBIN TIME - PATIENT 10.8 SEC (9.8-11.6)
[2016-09-18 07:30] LABS: ALKALINE PHOSPHATASE 114 U/L (45-117); ALT (GPT) 29 U/L (10-53); ANION GAP 12 MEQ/L (5-15); AST (GOT) 30 U/L (15-37); BICARBONATE 24.7 MEQ/L (21.0-32.0); BLOOD UREA NITROGEN 70 MG/DL (7-18); CHLORIDE 101 MEQ/L (98-107); CREATINE KINASE 25 U/L (26-192); GLOMERULAR FILTRATION RATE 18 ML/MIN (>89); MAGNESIUM 2.9 MG/DL (1.5-2.5); POTASSIUM 4.6 MEQ/L (3.5-5.1); SODIUM (NA) 138 MEQ/L (136-145); TOTAL BILIRUBIN ADULT 0.4 MG/DL (0.2-1.0)
[2016-09-18] MEDS: INSULIN NovoLIN REGULAR SUPPLEMENTAL SCALE SQ SCH ×2 (08:00→20:00)
[2016-09-18 08:09] LABS: BANDS 16 % (0-6); BASOPHILS 1 % (0-2); CORRECTED NUCLEATED RBC 4 /100 WBC (0-0); EOSINOPHILS 13 % (0-4); NEUTROPHIL # MANUAL DIFF 3.9 TH/MM3 (1.8-7.7); PLATELET ESTIMATE SMEAR NORMAL (NORMAL); PLATELET MORPHOLOGY NORMAL (NORMAL); POLYS (SEG NEUTROPHILS) 46 % (16-70); SCAN/DIFF FINAL DIFF MANUAL; WBC DIFF SAMPLE 100
[2016-09-18] MEDS: VORICONAZOLE 200 MG TAB PO SCH (08:39)
[2016-09-18] MEDS: LANSOPRAZOLE SOLUTAB 30 MG TAB NG SCH (08:39)
[2016-09-18] MEDS: DOCUSATE SODIUM 100 MG/10 ML UDC PO SCH ×2 (08:40→21:01)
[2016-09-18] MEDS: SENNOSIDES SYRUP 8.8 MG/5 ML CUP PO SCH ×2 (08:40→21:01)
[2016-09-18] MEDS: ARTIFICIAL TEARS OPTH SOLN 15 ML BTL EACH EYE SCH ×3 (08:41→17:14)
[2016-09-18] MEDS: BENEPROTEIN POWDER 1 PACK G-TUBE SCH ×3 (08:41→18:00)
[2016-09-18] MEDS ORDERED: FLUCONAZOLE 200 MG PREMIX BAG 100 ML IV SCH (08:45)
[2016-09-18] MEDS: SODIUM CHLORIDE 0.9% FLUSH 10 ML FLUSH IV FLUSH SCH ×2 (09:00→21:01)
[2016-09-18] MEDS: SODIUM CHLORIDE 0.9% FLUSH 10 ML FLUSH IVF SCH (09:00)
[2016-09-18] MEDS ORDERED: CEFEPIME INJ 2,000 MG in SODIUM CHLORIDE 0.9% INJ 100 ML IV SCH (09:00)
--- NOTE | 2016-09-18 09:44 | HHI.IDPN ---
Subjective Subjective Remarks ID COVERAGE Admitte with F/C, Cough, SOB, congestion, confusion, and CP. Patient is admitted to ICU with respiratory failure, CHF, pneumonia, probable underlying COPD. Patient was intubated and placed on mechanical ventilation. NOt weaning and had trach done 09/15. Has been having fevers. ON Rx for PSAE PNA and C glabrat UTI Notes reviewed D/W RN Temps ok overnight UO better, but creatinine continues to rise BP ok Renal US no hydro Repeat UC negative Sputum negative Creatinine continues to rise Urine for eos negative WBC normal No diarrhea No central line, has clot in her LUE, on heparin Antibiotics Cefepime IV tobramycin nebs Voriconazole Lines PIV Past Medical History reviewed. Allergies: Coded Allergies: No Known Allergies (Verified , 08/14/16) Objective . Vital Signs Date Time Temp Pulse Resp B/P Pulse Ox O2 Delivery O2 Flow Rate FiO2 09/18/16 08:00 98.3 89 20 114/78 96 09/18/16 08:00 45 09/18/16 08:00 86 09/18/16 07:57 9 45 09/18/16 06:00 96 09/18/16 04:00 99 09/18/16 04:00 45 09/18/16 04:00 98.7 99 20 108/72 96 09/18/16 03:58 96 45 09/18/16 02:00 92 09/18/16 01:07 94 45 09/18/16 00:00 45 09/18/16 00:00 98.8 90 21 116/61 95 09/18/16 00:00 90 09/17/16 22:00 86 09/17/16 20:23 95 45 09/17/16 20:00 45 09/17/16 20:00 92 09/17/16 20:00 98.9 92 21 116/61 92 09/17/16 18:10 88 09/17/16 17:37 22 09/17/16 16:42 98.4 82 26 109/63 93 09/17/16 16:00 45 09/17/16 16:00 80 09/17/16 15:09 95 45 09/17/16 14:00 90 09/17/16 12:00 45 09/17/16 12:00 97 09/17/16 10:00 98 409/17/16 09/18/16 15:00 23:00 07:00 Intake Total 2800 ml 1489 ml 484 ml Output Total 600 ml 750 ml 290 ml Balance 2200 ml 739 ml 194 ml IV Total 2650 ml 517 ml 194 ml Tube Feeding 150 ml 822 ml 290 ml Other 150 ml Output Urine Total 600 ml 750 ml 290 ml # Bowel Movements 0 0 . Laboratory Tests Test 09/16/16 09/17/16 09/18/16 16:36 08:07 06:28 White Blood Count 9.5 TH/MM3 6.5 TH/MM3 6.3 TH/MM3 Red Blood Count 3.21 MIL/MM3 3.10 MIL/MM3 3.21 MIL/MM3 Hemoglobin 9.0 GM/DL 8.9 GM/DL 8.9 GM/DL Hematocrit 28.3 % 27.2 % 28.0 % Mean Corpuscular Volume 88.1 FL 87.9 FL 87.0 FL Mean Corpuscular Hemoglobin 27.9 PG 28.6 PG 27.8 PG Mean Corpuscular Hemoglobin 31.6 % 32.6 % 31.9 % Concent Red Cell Distribution Width 18.2 % 18.3 % 18.8 % Platelet Count 180 TH/MM3 174 TH/MM3 181 TH/MM3 Mean Platelet Volume 9.8 FL 9.1 FL 9.1 FL Neutrophils (%) (Auto) 56.5 % % % Lymphocytes (%) (Auto) 20.1 % % % Monocytes (%) (Auto) 10.1 % % % Eosinophils (%) (Auto) 12.0 % % % Basophils (%) (Auto) 1.3 % % % Neutrophils # (Auto) 5.4 TH/MM3 TH/MM3 TH/MM3 Lymphocytes # (Auto) 1.9 TH/MM3 TH/MM3 TH/MM3 Monocytes # (Auto) 1.0 TH/MM3 TH/MM3 TH/MM3 Eosinophils # (Auto) 1.1 TH/MM3 TH/MM3 TH/MM3 Basophils # (Auto) 0.1 TH/MM3 TH/MM3 TH/MM3 CBC Comment AUTO DIFF AUTO DIFF AUTO DIFF Differential Total Cells 100 100 100 Counted Neutrophils % (Manual) 53 % 48 % 46 % Band Neutrophils % 9 % 12 % 16 % Lymphocytes % 18 % 13 % 16 % Monocytes % 8 % 14 % 8 % Eosinophils % 7 % 9 % 13 % Basophils % 2 % 2 % 1 % Neutrophils # (Manual) 6.2 TH/MM3 4.0 TH/MM3 3.9 TH/MM3 Myelocytes 2 % 2 % Promyelocytes 1 % Nucleated Red Blood Cells 3 /100 WBC 2 /100 WBC 4 /100 WBC Differential Comment FINAL DIFF FINAL DIFF FINAL DIFF MANUAL MANUAL MANUAL Platelet Estimate NORMAL NORMAL NORMAL Platelet Morphology Comment ENLARGED NORMAL NORMAL Polychromasia 2.1 % 2.4 % Keratocytes OCC Laboratory Tests Test 09/16/16 09/16/16 09/17/16 09/18/16 16:36 20:52 08:07 06:28 Sodium Level 134 MEQ/L 137 MEQ/L 138 MEQ/L Potassium Level 5.8 MEQ/L 4.9 MEQ/L 4.7 MEQ/L 4.6 MEQ/L Chloride Level 96 MEQ/L 101 MEQ/L 101 MEQ/L Carbon Dioxide Level 26.4 MEQ/L 23.7 MEQ/L 24.7 MEQ/L Anion Gap 12 MEQ/L 12 MEQ/L 12 MEQ/L Blood Urea Nitrogen 62 MG/DL 66 MG/DL 70 MG/DL Creatinine 2.51 MG/DL 2.58 MG/DL 2.77 MG/DL Estimat Glomerular Filtration 20 ML/MIN 19 ML/MIN 18 ML/MIN Rate Random Glucose 111 MG/DL 99 MG/DL 101 MG/DL Calcium Level 8.3 MG/DL 8.2 MG/DL 8.3 MG/DL Phosphorus Level 6.6 MG/DL 5.6 MG/DL 5.3 MG/DL Magnesium Level 3.1 MG/DL 2.8 MG/DL 2.9 MG/DL Lactic Acid Level 1.0 mmol/L Total Bilirubin 0.4 MG/DL 0.4 MG/DL Aspartate Amino Transf 41 U/L 30 U/L (AST/SGOT) Alanine Aminotransferase 37 U/L 29 U/L (ALT/SGPT) Alkaline Phosphatase 95 U/L 114 U/L Total Protein 5.9 GM/DL 5.9 GM/DL Albumin 2.3 GM/DL 2.1 GM/DL Human Chorionic Gonadotropin, 2 MIU/ML Quant Total Creatine Kinase 25 U/L Microbiology Date/Time Procedure Status Source Growth 09/16/16 08:55 Aerobic Blood Culture - Preliminary Resulted Blood Peripheral NO GROWTH IN 1 DAY 09/16/16 08:55 Anaerobic Blood Culture - Preliminary Resulted Blood Peripheral NO GROWTH IN 1 DAY 09/16/16 11:08 Aerobic Blood Culture - Preliminary Resulted Blood Peripheral NO GROWTH IN 1 DAY 09/16/16 11:08 Anaerobic Blood Culture - Preliminary Resulted Blood Peripheral NO GROWTH IN 1 DAY 09/16/16 15:05 Gram Stain - Final Resulted Sputum Endotracheal 09/16/16 15:05 Sputum Culture - Preliminary Resulted Sputum Endotracheal NO GROWTH IN 24 HOURS. 09/16/16 18:25 Urine Culture - Preliminary Resulted Urine Catheterized Urine NO GROWTH IN 24 HOURS. Imaging Chest X-Ray 09/15/16 0600 Signed Impressions: Service Date/Time: Thursday, September 15, 2016 03:52 - CONCLUSION: Persistent and unchanged bibasilar infiltrates. Taco Haas Jr., MD Chest X-Ray 09/15/16 0000 Signed Impressions: Service Date/Time: Thursday, September 15, 2016 11:00 - CONCLUSION: Placement of tracheostomy tube otherwise not changed. Danyel Escalante MD Liver Ultrasound 09/08/16 0000 Signed Impressions: Service Date/Time: Thursday, September 08, 2016 08:45 - CONCLUSION: 1. Cholelithiasis with distended gallbladder. However, there are no associated findings present to diagnose acute cholecystitis. If there is persistent clinical concern for acute cholecystitis could evaluate for cystic duct obstruction with hepatobiliary scintigraphy. 2. Hepatomegaly with very heterogeneous echotexture and steatosis. Dejan Allison MD Chest X-Ray 09/06/16 0000 Signed Impressions: Service Date/Time: Tuesday, September 06, 2016 11:09 - CONCLUSION: No significant change has occurred. Terry Estrada MD Gall Bladder Ultrasound 08/29/16 0000 Signed Impressions: Service Date/Time: Monday, August 29, 2016 15:21 - CONCLUSION: 1. Hepatomegaly with heterogeneous echotexture throughout the liver. 2. There is a large echogenic area near the neck of the gallbladder suggestive of a stone, but despite its large size, demonstrates no acoustic shadowing in any of the views. Taco Davidson MD CT Angiography 08/15/16 0000 Signed Impressions: Service Date/Time: Monday, August 15, 2016 02:33 - CONCLUSION: 1. No evidence for pulmonary embolism. 2. Multifocal consolidation greatest in the right lower lobe and associated adenopathy. Terry Estrada MD Physical Exam GENERAL: Morbidly obese CF patient, awake, NAD, on the vent SKIN: Has patches of redness on her trunk, and some papules in extremities HEAD: Atraumatic. Normocephalic. No temporal or scalp tenderness. EYES: Pupils equal round and reactive. No scleral icterus. Moist mucosa ENT: No nasal discharge. Dry oral mucosa NECK: Large neck. Supple. Trach in place CARDIOVASCULAR: Regular rate and rhythm RESPIRATORY: Clear to auscultation. Breath sounds equal bilaterally. GASTROINTESTINAL: Abdomen soft, obese, non-tender, nondistended. MUSCULOSKELETAL: Extremities without clubbing, cyanosis. Edema (+) NEUROLOGICAL: eyes open, did not track of focus PIV with no evidence of infection Miller in place with clear urine. Assessment & Plan Remarks Sepsis present on admission. Now with SIRS/Sepsis new. Better New Rash: ? cause for SIRS. Drug induced: Zosyn IV most likely. . PSAE pneumonia: pansensitive. R/O new HCAP/VAP. - new C/S negative Morbid Obesity (BMI 45.8 kg/m2) Obstructive Sleep Apnea (supposed to be on CPAP at home and home oxygen 2L) Acute respiratory failure vent dependent. Acute metabolic encephalopathy: infection, meds. Thrombosis of cephalic vein. Renal insufficiency, worsening Candiduria - repeat UC negative Recs: Stop Abx: Cefepime IV, Tobra nebs and Voriconazole Monitor off Abx Monitor renal function - creatinine still rising, but UO has improved Weaning per [facility] Monitor progress Follow oscar Uriarte/Sarahi Garg RN, MD Sep 18, 2016 09:43
[2016-09-18] MEDS: PROPOFOL 1000 MG/100 ML INJ 100 ML IV SCH ×2 (12:37→21:01)
--- NOTE | 2016-09-18 13:01 | HHI.CCPN ---
Subjective Remarks/Hospital Course 56-year-old morbidly obese female brought in the emergency department in respiratory distress. She was intubated by ER attending. She has been sick for about a week with symptoms consistent with UTI. She's had fevers and chills. She's been short of breath. She's had fatigue. She has had a cough and chest pain with coughing. The family reports that she's been delirious for the last 3 days. 08/15 Patient is sedated with Diprivan, Versed, Fentanyl and intubated. CTA chest showed no PE multifocal consolidation greatest in RLL. Tmax 100.6 08/16 Patient is sedated with Diprivan and Fentanyl. Afebrile. CXR this morning showed increase consolidation. 08/17 Patient remains sedated and intubated. T:100.4 On PRVC/AC RR 18, Tv 500, IT :1.0 PEEP:10, FIO2 75% 08/18 Remains sedated and intubated. Afebrile. CXR this morning unchanged bibasilar infiltrates and effusions. 08/19 Patient was placed on rotoprone bed last night for proning sedated with Diprivan, Versed and Fentnayl in addition she is on Nimbex. On PRVC/AC RR 20, TV 400, IT:1.1, PEEP:14 and FIO2 80%. Afebrile. 08/20 Patient remains sedated and intubated. Remains on PRVC/AC mode with improvements in her oxygenation on FIO2 50% from 80% yesterday and PEEP:12. 08/21 Patient remains sedated and intubated. On PRVC/AC mode with RR 20, TV 400, IT:1.1, PEEP: 12 and FIO2 50%. Afebrile. 08/22 No acute events overnight. Remains sedated, intubated and on Nimbex.. T: 99.8. On PRVC mode with PEP: 12, FIO2 50%. CXR from yesterday showed better aeration, RLL infiltrate unchanged. 08/23 Chest x-ray worsening. Methylprednisolone taper to twice a day by pulmonary. The patient's FiO2 was found to be 100% this a.m., will continue to wean. 08/24: 1 desat episode yesterday when supine. still remains prone now. no vasopressors. sedated and paralyzed. 08/25: flolan added yesterday. fio2 down to 60%. remained supine all night. still on neuromuscular blockade. net -500cc/24h. 08/26: good diuresis. remained supine. fio2 70%. weaning flolan. remains with significant respiratory support and high peep despite 6L diuresis overnight. Cr still stable. 08/27: continues with good diuresis. net negative 3L/24h. fio2 down to 55%. flolan off. still high peep. not ready for SBT. more agitated today. Cr remains stable despite aggressive diuresis. 08/28: diuresis continues. -3.3L/24h. spiked fever overnight with a jump in wbc to 16 this AM. fio2 60%, but her pulmonary improvements have plateaued at this point. still on peep 12. 08/29: net -1.7L/24h. Cr starting to rise. still spiking fevers despite vanc/ cefepime added yesterday. wbc continues to rise. clinically appears infected, although unclear source. peep 10, fio2 60%. will likely need trach. 08/30: net +800cc, but Cr downtrending. appears clinically euvolemic. fever curve downtrending. wbc downtrending. on 40% fio2, peep 8 today. still following commands. 08/31: failed SBT after only 45 minutes yesterday. intubated for > 2 weeks at this point. will attempt to pursue trach/peg today. will continue with pulmonary strengthening. daily SBTs. 09/01 CXR showing increasing bibasilar infiltrate. Failed C Pap trial in 5 minutes due to severe tachypnea. PEG tube today. Family has not decided on trach yet 09/02: Patient febrile to 101.1, CXR increased infiltrate Tmax Tmax 101.1. Currently 9.7 left upper lung and right lower lobe. Pancultured. Cefepime added today and one dose of vancomycin. Continues to fail C Pap trial due to tachypnea and respiratory distress 09/03: Remains hypoxemic on 75% oxygen with new pneumonia. Sputum culture 09/02/16 with GNR. Family agreeable for tracheostomy but patient is not stable at this point for trach 09/04: still on 70% fio2. still hypoxic. pneumonia persists. needs trach, but too unstable at this point. 09/05: remains on 75% fio2. pseudomonas sensitivities came back resistant to carbapenems, intermediate to levaquin. still spiking fevers. not clinically improving. wbc remains elevated. 09/06: Remains on 12 of PEEP and FiO2 75%. Zosyn and tobramycin started yesterday. WBC count trending down today 11.5 from 13.1. Remains heavily sedated for ventilator synchrony. MAXIMUM TEMPERATURE 100.3 09/07: Continues to spike fever. CXR unchanged. WBC count improving. PEEP 14. FiO2 60%. Will start IV Bumex 1mg IV q12 09/09: Tolerating tube feeds at goal. Afebrile. No documented bowel movement. Currently sedated on the ventilator 09/10: Tmax 99.7. Currently 99.4. No bowel movement yesterday. None document since 09/04. Arousable on the ventilator 09/11: Tmax 102.6. Currently 100. Positive BM. Arousable on the ventilator. Tolerating tube feeds. Central line changed yesterday. Plan for bronchoscopy at 1 PM. 09/12: Tmax 100.1. Currently afebrile. Follows commands today. Wiggles toes and give thumbs up appropriately. MRI brain canceled. Tolerating tube feeding with positive BM. Tracheostomy currently planned for . 09/13: Tmax 102. Again on sedation vacation falls commands by wiggling toes bilaterally and giving thumbs up bilaterally appropriate. Tolerating tube feeding with positive BM. Tracheostomy planned for tomorrow with Dr. Ortega. 09/14: Low grade fever. CXR showing more prominent infiltrate on the right lower lobe and left upper lobe. WBC trending up still in normal range. Patient is on 40% FiO2 but continues to fail CPAP due to tachypnea 09/15: Remains intubated sedated, unable to wean off the vent. Plan for tracheostomy today with Dr. Ortega. Continues to have low grade fever. CXR with persistent bibasilar infiltrates 09/16: Tmax 101.1. Currently 100.7. Awake and alert. Following commands. 09/17: Afebrile. Currently on PSV trial. Tolerating tube feeds. One bowel movement. Noted decreased urine output past 48 hours. Diuretics have been discontinued. This a.m. creatinine currently pending. Subjective 09/18: Afebrile. Adequate urine output yesterday but decreased 150 past 8 hours. Tolerating tube feeds. One bowel movement. Not tolerating PSV trials today. Objective Vital Signs Date Time Temp Pulse Resp B/P Pulse Ox O2 Delivery O2 Flow Rate FiO2 09/18/16 11:35 95 45 09/18/16 10:00 87 09/18/16 08:00 98.3 20 114/78 Intake and Output 09/17/16 09/17/16 09/18/16 08:00 16:00 00:00 Intake Total 378 ml 2800 ml 1489 ml Output Total 175 ml 600 ml 750 ml Balance 203 ml 2200 ml 739 ml Result Diagram: 09/18/16 0628 09/18/16 0628 Other Results Microbiology Date/Time Procedure Status Source Growth 09/16/16 18:25 Urine Culture - Final Complete Urine Catheterized Urine Maribell Glabrata Maribell Parapsilosis 09/16/16 15:05 Gram Stain - Final Complete Sputum Endotracheal 09/16/16 15:05 Sputum Culture - Final Complete Sputum Endotracheal NO GROWTH IN 48 HOURS. 09/16/16 11:08 Aerobic Blood Culture - Preliminary Resulted Blood Peripheral NO GROWTH IN 2 DAYS 09/16/16 11:08 Anaerobic Blood Culture - Preliminary Resulted Blood Peripheral NO GROWTH IN 2 DAYS Imaging Last Impressions Chest X-Ray 09/18/16 0600 Signed Impressions: Service Date/Time: Sunday, September 18, 2016 04:38 - CONCLUSION: Scattered bilateral pulmonary infiltrates. No significant change. Kieran Ford MD Renal Ultrasound 09/17/16 0000 Signed Impressions: Service Date/Time: Saturday, September 17, 2016 13:31 - CONCLUSION: Negative renal sonogram. Taco Davidson MD Upper Extremity Ultrasound 09/14/16 0000 Signed Impressions: Service Date/Time: August 08:32 - CONCLUSION: There is thrombus within the left subclavian and internal jugular veins. Danyel Escalante MD Lower Extremity Ultrasound 09/13/16 0000 Signed Impressions: Service Date/Time: Tuesday, September 13, 2016 22:33 - CONCLUSION: Normal examination. Leonides Mason MD Liver Ultrasound 09/08/16 0000 Signed Impressions: Service Date/Time: Thursday, September 08, 2016 08:45 - CONCLUSION: 1. Cholelithiasis with distended gallbladder. However, there are no associated findings present to diagnose acute cholecystitis. If there is persistent clinical concern for acute cholecystitis could evaluate for cystic duct obstruction with hepatobiliary scintigraphy. 2. Hepatomegaly with very heterogeneous echotexture and steatosis. Dejan Allison MD Gall Bladder Ultrasound 08/29/16 0000 Signed Impressions: Service Date/Time: Monday, August 29, 2016 15:21 - CONCLUSION: 1. Hepatomegaly with heterogeneous echotexture throughout the liver. 2. There is a large echogenic area near the neck of the gallbladder suggestive of a stone, but despite its large size, demonstrates no acoustic shadowing in any of the views. Taco Davidson MD CT Angiography 08/15/16 0000 Signed Impressions: Service Date/Time: Monday, August 15, 2016 02:33 - CONCLUSION: 1. No evidence for pulmonary embolism. 2. Multifocal consolidation greatest in the right lower lobe and associated adenopathy. Terry Estrada MD Objective Remarks GENERAL: 56 yo female, critically ill currently resting in bed in no acute distress SKIN: Warm and dry. Currently no rash HEAD: Normocephalic. EYES: No scleral icterus. No injection or drainage. NECK: trachea midline. Tracheostomy is currently clean dry and intact will packed Neck is obese. Left IJ clean dry and intact CARDIOVASCULAR: RRR. S1, S2 no S4 . No murmur RESPIRATORY: Breath sounds equal mahogany but distant, few basilar crackles GASTROINTESTINAL: Abdomen obese, soft, non-tender, hypoactive active bowel sounds MUSCULOSKELETAL: Trace to 1+ lower extremity edema Neuro: Currently following commands moving upper and lower extremity spontaneously Positive gag and corneal reflex. A/P Problem List: (1) ARDS (adult respiratory distress syndrome) ICD Code: J80 Status: Acute (2) CHF (congestive heart failure) ICD Code: I50.9 Status: Acute (3) Respiratory failure ICD Code: J96.90 Status: Acute (4) Pneumonia ICD Code: J18.9 Status: Acute Assessment and Plan Neuro/Psych: Acute toxic metabolic encephalopathy Agitated delirium Currently 20 mcg/kg minute propofol and 100 g per minute of fentanyl for sedation/analgesia while tracheostomy/ventilator mode Daily sedation vacation Continue Seroquel 50mg po q8h for delirium and oxycodone 10mg po q4h femi for pain. EEG 09/09 moderate to severe encephalopathy Pulm: Acute hypercapnic and hypoxemic respiratory failure ARDS Pneumonia community-acquired, now with HCAP with carbapenem-resistant pseudomonas Probable JOE On PRVC/AC RR 20, TV 600, PEEP 10, IT: 1.1 and FIO2 0.45. Decrease FIO2 as tiki. for goal spo2 > 88% Currently on PSV trial 11/03 at 40% Bronchodilator therapy every 4 hours and as needed ICU vent bundle. Pulm is following- Dr. Beck Gen surgery Dr. Ortega status post percutaneous tracheostomy 09/15 CV: Hypertension Dyslipidemia Elevated troponin - likely strain Monitor HR and BP keep MAP>65mmg Echo 08/14 showed EF 65-70% mild AR/TR Home medications HCTZ 12.5 mill grams daily currently on hold Home medication lovastatin 20 mg by mouth daily switched to Pravachol 20 mg a night. Renal/: Acute kidney injury A.m. creatinine 2.7. 2.5 yesterday Received crystalloid bolus 2 L normal saline today Bumex discontinued 09/15 Urine eosinophils negative. Renal ultrasound revealed no hydronephrosis 1650 cc urine past 24 hours. s/p exchange Miller with funguria Monitor renal function, I/O's Will consult nephrology. Noted antibiotics antifungals discontinued today GI: Elevated transaminases Cholelithiasis Monitor LFT's ( trending down), on Protonix 40mg daily for GI prophylaxis US liver: Fatty liver and cholelithiasis. Repeat 09/08 revealed cholelithiasis with no acute signs of cholecystitis. Recommend a HIDA scan if indicated On TF Glucerna 1.5 @ 45ml/hr with 2 packets of been a protein 3 times a day minimal residual. Switch to Nepro's 45 cc an hour with increased phosphorus s/p PEG placement 09/01/[address] Ritter Prevacid 30 mg daily for GI prophylaxis Colace/Senokot for bowel regimen. Lactulose daily added ID: Pseudomonas pneumonia Funguria Pertinent cultures blood and sputum cx 08/15- NG strep pneumonia and Legionella urinary Ag negative Blood cultures 08/28: NGTD C Diff negative 08/28. Lines changed 08/28. Sputum 08/30 - Pseudomonas Sputum 09/02 PSAE, resistant to carbapenem, intermediate to Levaquin. 09/07 - urine -Maribell Guilliermondii 09/07 - blood cultures 2 - no growth 09/09 - urine -strep veridians, Maribell parapsilosis 09/10 - blood cultures 2 -no growth 09/11 - broch washings -no growth to date 09/12 - urine -Maribell glabrata and parapsilosis 09/16 - blood cultures 2 - pending 09/16 - sputum -no growth 09/16 - urine -Maribell glabrata and parapsilosis - Dcd cefepime/Levaquin on 09/05. started on Zosyn 4.5gm iv q6h and tobramycin 7 mg/kg/day. Zosyn discontinued secondary to rash Currently cefepime and tobramycin aerosols per infectious disease Vfend day # 8 200 every 12 and Diflucan all discontinued 09/18 - ID following Heme: Normocytic anemia Left IJ/subclavian nonocclusive thrombus Monitor CBC No indication for transfusion of blood product at this time Daily holding heparin drip for DVT with oozing around tracheostomy. Resume today Endo: Diabetes mellitus Hypothyroidism on SSI (medium scale) for glycemic control On Synthroid 200mcg daily. TSH 1.37 FEN: Hyperkalemia Received D 50/insulin/bicarbonate, calcium overnight. Recheck potassium this AM. Last 4.9 GI prophylaxis- Prevacid per tube. DVT prophylaxis Heparin SQ - resume heparin drip today, SCDs Lines: Peripheral IV. - Miller - PEG 09/01/16 - Trach 09/15 Critical Care: The total care time was 35 minutes. Time to perform other separately billable procedures was not included in the critical care time. Problem Qualifiers (1) CHF (congestive heart failure): Qualified Code: I50.9 - Acute congestive heart failure, unspecified congestive heart failure type (2) Respiratory failure: Qualified Code: J96.02 - Acute respiratory failure with hypercapnia (3) Pneumonia: Qualified Code: J18.9 - Pneumonia of both lungs due to infectious organism, unspecified part of lung Fadi Villa MD Sep 18, 2016 13:01
[2016-09-18] MEDS ORDERED: SODIUM CHLOR 0.9% 1000 ML INJ 1,000 ML IV ONE ×2 (13:15)
[2016-09-18 14:14] LABS: BRONCHOALVEOLAR LAVAGE RBC 80 /MM3; BRONCHOALVEOLAR LAVAGE WBC 500 /MM3
--- NOTE | 2016-09-18 15:16 | PD.CONS ---
[facility] Service Nephrology Consult Requested By Dr. Villa Reason for Consult Acute kidney injury Primary Care Physician Unknown History of Present Illness Patient was admitted on the 14 of August, intubated in the ER. Appears to have been on the ventilator since then. ARDS is suspected. Received CT angiogram to rule out PE. Sputum is positive for Pseudomonas. Has Maribell in the urine. Was on Vancomycin, last dose on the of this month. Was on Bumex drip, and then intermittent Bumex. Last dose was 09/15. ID is following the patient. All antimicrobials: Voriconazole, Cefepime, and Tobramycin nebulizer stopped today. Previously was on Levaquin and Zosyn. Appears to be non oliguric. Vancomycin level was 22.5 on the . On the , she had eosinophilia. Creatinine was 0.79 on the , since then it has progressively increased. Review of Systems ROS Limitations: Clinical Condition Past Family Social History Allergies: Coded Allergies: No Known Allergies (Verified , 08/14/16) Past Medical History Hypothyroidism Dyslipidemia Obstructive sleep apnea Obesity hypoventilation syndrome Tobacco use disorder Past Surgical History Tubal ligation Hysterectomy Reported Medications Reported Meds & Active Scripts Active Reported Levothyroxine (Levothyroxine Sodium) 50 Mcg Tab 50 Mcg PO DAILY Lovastatin 20 Mg Tab 20 Mg PO HS Levothyroxine (Levothyroxine Sodium) 200 Mcg Tab 200 Mcg PO DAILY Hydrochlorothiazide 12.5 Mg Cap 12.5 Mg PO DAILY Active Ordered Medications Current Medications Medications (Trade) Dose Ordered Sig/Josephine Route Start Time Stop Time Status Last Admin (Synthroid) 200 mcg DAILY@06 PO 08/15/16 06:00 09/18/16 05:12 (Pravachol) 20 mg HS PO 08/15/16 21:00 09/17/16 20:10 (NS Flush) 2 ml UNSCH PRN IVF 08/14/16 23:15 09/12/16 17:31 (NS Flush) 2 ml BID IV FLUSH 08/15/16 09:00 09/18/16 09:00 (Tylenol) 650 mg Q6H PRN PO 08/14/16 23:15 09/16/16 05:43 (Morphine Inj) 2 mg Q2H PRN IV 08/14/16 23:15 (Tears Naturale Opth Soln) 1 drop TID EACH EYE 08/15/16 09:00 09/18/16 12:38 (Zofran Inj) 4 mg Q6H PRN IV 08/14/16 23:15 Miscellaneous Information 1 Q361D XX 08/14/16 23:15 (Chlorhexidine 2% Cloth) Taper DAILY@04 TOP 08/15/16 04:00 08/11/17 03:59 09/18/16 04:00 Chlorhexidine Gluconate 3 pack 3 pack UNSCH PRN TOP 08/14/16 23:15 (Diprivan 1000 Mg/100ml Inj) 100 ml @ 0 mls/hr TITRATE IV 08/14/16 23:15 09/18/16 12:37 Protein 2 pack 2 pack TID G-TUBE 08/15/16 09:00 09/18/16 12:39 (fentaNYL DRIP) 250 ml @ 0 mls/hr TITRATE IV 08/14/16 23:15 09/17/16 00:25 (D50w (Vial) Inj) 25 ml UNSCH PRN IV PUSH 08/16/16 09:15 (SEROquel) 50 mg Q8HR PO 08/27/16 14:00 09/18/16 12:38 (Roxicodone Intensol Liq) 10 mg Q4HR PO 08/27/16 10:15 09/18/16 12:38 (Prevacid Odt) 30 mg DAILY NG 09/05/16 09:00 09/18/16 08:39 (Senna Liq) 8.8 mg BID PO 09/09/16 21:00 09/17/16 20:09 (NS Flush) DAILY IVF 09/11/16 09:00 09/18/16 09:00 (NS Flush) UNSCH PRN IVF 09/10/16 19:15 (Colace Liq) 100 mg BID PO 09/13/16 21:30 09/17/16 20:28 Insulin Human Regular 1 1 Q12H SQ 09/14/16 20:00 (Heparin-D5W Inj) 250 ml @ 0 mls/hr TITRATE IV 09/18/16 13:30 Family History mother of complications of lung cancer Father had diabetes. Social History smoked 1 ppd Physical Exam Vital Signs Vital Signs Date Time Temp Pulse Resp B/P Pulse Ox O2 Delivery O2 Flow Rate FiO2 09/18/16 11:35 95 45 09/18/16 10:00 87 09/18/16 09:39 22 09/18/16 08:00 98.3 89 20 114/78 96 09/18/16 08:00 45 09/18/16 08:00 86 09/18/16 07:57 9 45 09/18/16 06:00 96 09/18/16 04:00 99 09/18/16 04:00 45 09/18/16 04:00 98.7 99 20 108/72 96 09/18/16 03:58 96 45 09/18/16 02:00 92 09/18/16 01:07 94 45 09/18/16 00:00 45 09/18/16 00:00 98.8 90 21 116/61 95 09/18/16 00:00 90 09/17/16 22:00 86 09/17/16 20:23 95 45 09/17/16 20:00 45 09/17/16 20:00 92 09/17/16 20:00 98.9 92 21 116/61 92 09/17/16 18:10 88 09/17/16 16:42 98.4 82 26 109/63 93 09/17/16 16:00 45 09/17/16 16:00 80 Physical Exam GENERAL: patient is intubated, obese. Sedated. SKIN: Warm and dry. HEAD: Normocephalic. EYES: No scleral icterus. No injection or drainage. NECK: Supple, trachea midline. No JVD or lymphadenopathy. CARDIOVASCULAR: Regular rate and rhythm without murmurs, gallops, or rubs. RESPIRATORY: Vented breath sounds heard bilaterally. GASTROINTESTINAL: Abdomen soft, non-tender, nondistended. MUSCULOSKELETAL: No cyanosis, dependent edema. BACK: Nontender without obvious deformity. Laboratory Laboratory Tests Test 09/18/16 06:28 White Blood Count 6.3 Red Blood Count 3.21 Hemoglobin 8.9 Hematocrit 28.0 Mean Corpuscular Volume 87.0 Mean Corpuscular Hemoglobin 27.8 Mean Corpuscular Hemoglobin 31.9 Concent Red Cell Distribution Width 18.8 Platelet Count 181 Mean Platelet Volume 9.1 Neutrophils (%) (Auto) Lymphocytes (%) (Auto) Monocytes (%) (Auto) Eosinophils (%) (Auto) Basophils (%) (Auto) Neutrophils # (Auto) Lymphocytes # (Auto) Monocytes # (Auto) Eosinophils # (Auto) Basophils # (Auto) CBC Comment AUTO DIFF Differential Total Cells 100 Counted Neutrophils % (Manual) 46 Band Neutrophils % 16 Lymphocytes % 16 Monocytes % 8 Eosinophils % 13 Basophils % 1 Neutrophils # (Manual) 3.9 Nucleated Red Blood Cells 4 Differential Comment FINAL DIFF MANUAL Platelet Estimate NORMAL Platelet Morphology Comment NORMAL Prothrombin Time 10.8 Prothromb Time International 1.0 Ratio Activated Partial 30.9 Thromboplast Time Fibrinogen 377 Sodium Level 138 Potassium Level 4.6 Chloride Level 101 Carbon Dioxide Level 24.7 Anion Gap 12 Blood Urea Nitrogen 70 Creatinine 2.77 Estimat Glomerular Filtration 18 Rate Random Glucose 101 Calcium Level 8.3 Phosphorus Level 5.3 Magnesium Level 2.9 Total Bilirubin 0.4 Aspartate Amino Transf 30 (AST/SGOT) Alanine Aminotransferase 29 (ALT/SGPT) Alkaline Phosphatase 114 Total Creatine Kinase 25 Total Protein 5.9 Albumin 2.1 Date/Time Procedure Status Source Growth 09/16/16 18:25 Urine Culture - Final Complete Urine Catheterized Urine Maribell [place] Maribell Parapsilosis 09/16/16 15:05 Gram Stain - Final Complete Sputum Endotracheal 09/16/16 15:05 Sputum Culture - Final Complete Sputum Endotracheal NO GROWTH IN 48 HOURS. 09/16/16 11:08 Aerobic Blood Culture - Preliminary Resulted Blood Peripheral NO GROWTH IN 2 DAYS 09/16/16 11:08 Anaerobic Blood Culture - Preliminary Resulted Blood Peripheral NO GROWTH IN 2 DAYS Result Diagram: 09/18/1662709/18/16627 Assessment and Plan Problem List: (1) Acute kidney injury Plan: Differential diagnosis is broad. May have ATN due to sepsis, inflammation, hemodynamic instability. Drug induced allergic interstitial nephritis is another possibility. Vancomycin induced nephrotoxicity should also be considered. Appears to have positive fluid balance for the past several days. May need diuresis, may need renal replacement therapy. Avoid nephrotoxic agents. Stop all non essential medications. Monitor urine output and renal function. May need renal replacement therapy. (2) ARDS (adult respiratory distress syndrome) Plan: Ventilator support: PSV mode. Manager Inpatient managing. (3) Morbid obesity (4) Hypothyroidism Plan: continue replacement. (5) Pneumonia Plan: Pseudomonas in the sputum. ID following. Antibiotics stopped. Assessment and Plan Thanks for the consult. We will follow. Problem Qualifiers (1) Pneumonia: Qualified Code: J18.9 - Pneumonia of both lungs due to infectious organism, unspecified part of lung Anshu Tan MD Sep 18, 2016 15:16
[2016-09-18] MEDS: HEPARIN-D5W 25,000 U/250 ML 250 ML IV SCH (17:12)
[2016-09-18] MEDS: PRAVASTATIN SOD 20 MG TAB PO SCH (21:01)
[2016-09-18] MEDS: fentaNYL DRIP 250 ML IV SCH (21:01)
[2016-09-18 22:24] LABS: APTT (PATIENT) 24.2 SEC (24.3-30.1)
[2016-09-19] VITALS (19 sets, daily range): BP systolic 95–137; BP diastolic 51–65; PULSE 87–113; RESP 20–30; TEMP 99–100.5; O2SAT 92–96
[2016-09-19] MEDS: oxyCODONE HCL ORAL CONC 20 MG/ML SYRINGE PO SCH ×6 (00:22→21:20)
[2016-09-19] MEDS: RESP: ALBUTEROL 2.5 MG/IPRATROPIUM 0.5 MG NEB (SCH) INH ×4 (03:03→20:51)
[2016-09-19] MEDS: CHLORHEXIDINE GLUCONATE 2 % 1 PACK (2 CLOTHS) TOP SCH (04:00)
[2016-09-19] MEDS: QUEtiapine FUMARATE 25 MG TAB PO SCH ×3 (04:08→21:21)
[2016-09-19] MEDS: LEVOTHYROXINE SODIUM 200 MCG TAB PO SCH (04:08)
[2016-09-19] MEDS: HEPARIN-D5W 25,000 U/250 ML 250 ML IV SCH ×2 (04:11→13:43)
[2016-09-19 04:30] LABS: APTT (PATIENT) 50.4 SEC (24.3-30.1)
[2016-09-19 04:32] LABS: HEMATOCRIT 28.9 % (35.0-46.0); MEAN CELL VOLUME 86.8 FL (80.0-100.0); MEAN CORPUSCULAR HEMOGLOBIN 28.4 PG (27.0-34.0); MEAN CORPUSCULAR HGB CONC 32.7 % (32.0-36.0); PLATELET COUNT 221 TH/MM3 (150-450); RED BLOOD COUNT 3.33 MIL/MM3 (4.00-5.30)
[2016-09-19 04:38] LABS: HEMO FLAGS AUTO DIFF
[2016-09-19 05:01] LABS: BICARBONATE 24.5 MEQ/L (21.0-32.0); POTASSIUM 4.4 MEQ/L (3.5-5.1)
[2016-09-19 06:05] LABS: BANDS 5 % (0-6); BASOPHILS 2 % (0-2); CORRECTED NUCLEATED RBC 9 /100 WBC (0-0); EOSINOPHILS 14 % (0-4); METAMYELOCYTES 3 % (0-1); POLYS (SEG NEUTROPHILS) 52 % (16-70); WBC DIFF SAMPLE 100
[2016-09-19 06:06] LABS: PLATELET ESTIMATE SMEAR NORMAL (NORMAL); PLATELET MORPHOLOGY NORMAL (NORMAL); SCAN/DIFF FINAL DIFF MANUAL
[2016-09-19] MEDS: PROPOFOL 1000 MG/100 ML INJ 100 ML IV SCH ×3 (06:12→21:21)
--- NOTE | 2016-09-19 06:58 | HHI.PR ---
Addendum to Inpatient Note Addendum Reason: Additional Documentation Additional Information Per chart review documentation etc Off antibiotics no fever overnight. Normal WBC Will sign off please call back if any change in clinical condition or questions. Terri Uribe MD Sep 19, 2016 06:58
[2016-09-19] MEDS: INSULIN NovoLIN REGULAR SUPPLEMENTAL SCALE SQ SCH ×2 (08:00→20:00)
[2016-09-19] MEDS: SENNOSIDES SYRUP 8.8 MG/5 ML CUP PO SCH ×2 (08:03→21:00)
[2016-09-19] MEDS: LANSOPRAZOLE SOLUTAB 30 MG TAB NG SCH (08:03)
[2016-09-19] MEDS: DOCUSATE SODIUM 100 MG/10 ML UDC PO SCH ×2 (08:03→21:00)
[2016-09-19] MEDS: BENEPROTEIN POWDER 1 PACK G-TUBE SCH ×3 (08:04→17:10)
[2016-09-19] MEDS: SODIUM CHLORIDE 0.9% FLUSH 10 ML FLUSH IVF PRN ×2 (08:04)
[2016-09-19] MEDS: SODIUM CHLORIDE 0.9% FLUSH 10 ML FLUSH IVF SCH (08:04)
[2016-09-19] MEDS: ARTIFICIAL TEARS OPTH SOLN 15 ML BTL EACH EYE SCH ×3 (08:04→17:10)
[2016-09-19] MEDS: SODIUM CHLORIDE 0.9% FLUSH 10 ML FLUSH IV FLUSH SCH ×2 (08:04→21:20)
[2016-09-19] MEDS: ACETAMINOPHEN 325 MG TAB PO PRN (08:22)
--- NOTE | 2016-09-19 09:54 | HHI.NPPN ---
Subjective Complaints: Obesity General Problems: Edema, Hypotension Renal Failure: Acute Interval History Remains on vent via trach. Eyes open but does not follow commands. She is demonstrating fluid overload (Genny Lowery) Review of Systems General General Remarks unable to evaluate (Genny Lowery) Objective Data Data 09/18/16 09/19/16 19:00 07:00 Intake Total 3028 ml 1643 ml Output Total 360 ml 700 ml Balance 2668 ml 943 ml Intake Oral 0 ml IV Total 2488 ml 582 ml Tube Feeding 540 ml 1061 ml Output Urine Total 360 ml 700 ml # Bowel Movements 0 Vital Signs Date Time Temp Pulse Resp B/P Pulse Ox O2 Delivery O2 Flow Rate FiO2 09/19/16 08:39 94 40 09/19/16 06:00 96 09/19/16 04:46 95 40 09/19/16 04:00 96 09/19/16 04:00 40 09/19/16 04:00 99.5 96 22 113/58 94 09/19/16 02:00 89 09/19/16 00:08 95 40 09/19/16 00:00 40 09/19/16 00:00 91 09/19/16 00:00 99.0 91 20 102/63 95 09/18/16 22:00 96 09/18/16 20:43 96 40 09/18/16 20:00 45 09/18/16 20:00 98.2 97 27 134/77 94 09/18/16 20:00 97 09/18/16 18:18 103 09/18/16 17:00 18 09/18/16 16:22 98.4 91 20 108/56 96 09/18/16 16:05 103 09/18/16 16:03 45 09/18/16 15:31 95 45 09/18/16 14:00 105 09/18/16 12:00 90 09/18/16 12:00 45 09/18/16 11:35 95 45 09/18/16 10:00 87 (Genny Lowery) -: 09/19/16 0351 09/19/16 0351 Imaging Last 72 hours Impressions Chest X-Ray 09/18/16 0600 Signed Impressions: Service Date/Time: Sunday, September 18, 2016 04:38 - CONCLUSION: Scattered bilateral pulmonary infiltrates. No significant change. Kieran Ford MD Renal Ultrasound 09/17/16 0000 Signed Impressions: Service Date/Time: Saturday, September 17, 2016 13:31 - CONCLUSION: Negative renal sonogram. Taco Davidson MD Tubes & Lines: Miller Tubes & Lines Comment trach, PEG Drip Comment heparin, propofol, fentanyl (Beverley,Genny B. ASSOCIATE DIRECTOR CAREER SERVICES) Physical Exam General Appearance: Well Developed, No Acute Distress, Comfortable, Obese (Beverley, Genny B. ASSOCIATE DIRECTOR CAREER SERVICES) Throat Throat Exam: Oral Mucosa Hilger & Moist (Beverley,Genny B. ASSOCIATE DIRECTOR CAREER SERVICES) Neck Neck Exam: Neck Supple Neck Remarks trach (Beverley,Genny B. ASSOCIATE DIRECTOR CAREER SERVICES) Pulmonary Resp Remarks vented lung sounds (Beverley,Genny B. ASSOCIATE DIRECTOR CAREER SERVICES) Cardiology CV Exam: Regular, Normal Sinus Rhythm (Beverley,Genny B. ASSOCIATE DIRECTOR CAREER SERVICES) Gastrointestinal/Abdomen GI Exam: Soft, Bowel Sounds Present GI Remarks morbidly obese, + PEG infusing (Beverley,Genny B. ASSOCIATE DIRECTOR CAREER SERVICES) Musculoskeletal MS Exam: Joints Intact, Good Strength, Unable to Ambulate (Beverley,Genny B. ASSOCIATE DIRECTOR CAREER SERVICES) Integumentary Skin Exam: Warm, Dry (Beverley,Genny B. ASSOCIATE DIRECTOR CAREER SERVICES) Extremeties Extremities Exam: Pedal Pulses Palpable, Moderate Edema, Pitting Edema ( Beverley,Genny B. ASSOCIATE DIRECTOR CAREER SERVICES) Neurologic Neuro Exam: Awake, Unresponsive (Beverley,Genny B. ASSOCIATE DIRECTOR CAREER SERVICES) VTE Prophylaxis Device: SCDs Meds: Heparin (Beverley,Genny B. ASSOCIATE DIRECTOR CAREER SERVICES) Assessment/Plan Assessment Summary: MIKE/Acute Renal Failure, Acute Tubular Necrosis, Hypotension Problem List: (1) Acute kidney injury Plan: In a pt with normal renal function at [facility] MIKE: ATN may be due to sepsis syndrome and diminished renal perfusion vancomycin induced nephrotoxicity is a possibility, it has since been stopped renal function is worse today, She is demonstrating positive fluid balance, begin Bumex 2 mg IV TID currently non oliguric, monitor response to diuretics, may require dialysis depending on response Avoid nephrotoxic agents. antibiotics have been stopped Avoid IVF maintain adequate MAP, pressors if needed daily renal panel (2) ARDS (adult respiratory distress syndrome) Plan: Ventilator support: PSV mode. settings: 20/600/40/10 Sports Manager managing. (3) Pneumonia Plan: Pseudomonas in the sputum. ID following. monitor the pt clinically, she is currently off antibiotics (4) Hypothyroidism Plan: on synthroid (5) Morbid obesity (Genny Lowery) Plan patient was seen and examined. She has tracheostomy. On the vent. Generalized edema is noted. Positive fluid balance. Renal function is worse. Start diuretics. She likely needs dialysis in the near future. (Anshu Tan MD) Problem Qualifiers (1) Pneumonia: Qualified Code: J18.9 - Pneumonia of both lungs due to infectious organism, unspecified part of lung Genny Lowery Sep 19, 2016 09:54 Anshu Tan MD Sep 19, 2016 11:48
[2016-09-19] MEDS ORDERED: LACTULOSE SYRUP 20 GM/30 ML CUP PO ONE (13:15)
[2016-09-19] MEDS ORDERED: MINERAL OIL LIQUID 30 ML CUP PO ONE (13:15)
[2016-09-19] MEDS ORDERED: POLYETHYLENE GLYCOL 17 GM PKG PO ONE (13:15)
--- NOTE | 2016-09-19 13:21 | HHI.CCPN ---
Subjective Remarks/Hospital Course 56-year-old morbidly obese female brought in the emergency department in respiratory distress. She was intubated by ER attending. She has been sick for about a week with symptoms consistent with UTI. She's had fevers and chills. She's been short of breath. She's had fatigue. She has had a cough and chest pain with coughing. The family reports that she's been delirious for the last 3 days. 08/15 Patient is sedated with Diprivan, Versed, Fentanyl and intubated. CTA chest showed no PE multifocal consolidation greatest in RLL. Tmax 100.6 08/16 Patient is sedated with Diprivan and Fentanyl. Afebrile. CXR this morning showed increase consolidation. 08/17 Patient remains sedated and intubated. T:100.4 On PRVC/AC RR 18, Tv 500, IT :1.0 PEEP:10, FIO2 75% 08/18 Remains sedated and intubated. Afebrile. CXR this morning unchanged bibasilar infiltrates and effusions. 08/19 Patient was placed on rotoprone bed last night for proning sedated with Diprivan, Versed and Fentnayl in addition she is on Nimbex. On PRVC/AC RR 20, TV 400, IT:1.1, PEEP:14 and FIO2 80%. Afebrile. 08/20 Patient remains sedated and intubated. Remains on PRVC/AC mode with improvements in her oxygenation on FIO2 50% from 80% yesterday and PEEP:12. 08/21 Patient remains sedated and intubated. On PRVC/AC mode with RR 20, TV 400, IT:1.1, PEEP: 12 and FIO2 50%. Afebrile. 08/22 No acute events overnight. Remains sedated, intubated and on Nimbex.. T: 99.8. On PRVC mode with PEP: 12, FIO2 50%. CXR from yesterday showed better aeration, RLL infiltrate unchanged. 08/23 Chest x-ray worsening. Methylprednisolone taper to twice a day by pulmonary. The patient's FiO2 was found to be 100% this a.m., will continue to wean. 08/24: 1 desat episode yesterday when supine. still remains prone now. no vasopressors. sedated and paralyzed. 08/25: flolan added yesterday. fio2 down to 60%. remained supine all night. still on neuromuscular blockade. net -500cc/24h. 08/26: good diuresis. remained supine. fio2 70%. weaning flolan. remains with significant respiratory support and high peep despite 6L diuresis overnight. Cr still stable. 08/27: continues with good diuresis. net negative 3L/24h. fio2 down to 55%. flolan off. still high peep. not ready for SBT. more agitated today. Cr remains stable despite aggressive diuresis. 08/28: diuresis continues. -3.3L/24h. spiked fever overnight with a jump in wbc to 16 this AM. fio2 60%, but her pulmonary improvements have plateaued at this point. still on peep 12. 08/29: net -1.7L/24h. Cr starting to rise. still spiking fevers despite vanc/ cefepime added yesterday. wbc continues to rise. clinically appears infected, although unclear source. peep 10, fio2 60%. will likely need trach. 08/30: net +800cc, but Cr downtrending. appears clinically euvolemic. fever curve downtrending. wbc downtrending. on 40% fio2, peep 8 today. still following commands. 08/31: failed SBT after only 45 minutes yesterday. intubated for > 2 weeks at this point. will attempt to pursue trach/peg today. will continue with pulmonary strengthening. daily SBTs. 09/01 CXR showing increasing bibasilar infiltrate. Failed C Pap trial in 5 minutes due to severe tachypnea. PEG tube today. Family has not decided on trach yet 09/02: Patient febrile to 101.1, CXR increased infiltrate Tmax Tmax 101.1. Currently 9.7 left upper lung and right lower lobe. Pancultured. Cefepime added today and one dose of vancomycin. Continues to fail C Pap trial due to tachypnea and respiratory distress 09/03: Remains hypoxemic on 75% oxygen with new pneumonia. Sputum culture 09/02/16 with GNR. Family agreeable for tracheostomy but patient is not stable at this point for trach 09/04: still on 70% fio2. still hypoxic. pneumonia persists. needs trach, but too unstable at this point. 09/05: remains on 75% fio2. pseudomonas sensitivities came back resistant to carbapenems, intermediate to levaquin. still spiking fevers. not clinically improving. wbc remains elevated. 09/06: Remains on 12 of PEEP and FiO2 75%. Zosyn and tobramycin started yesterday. WBC count trending down today 11.5 from 13.1. Remains heavily sedated for ventilator synchrony. MAXIMUM TEMPERATURE 100.3 09/07: Continues to spike fever. CXR unchanged. WBC count improving. PEEP 14. FiO2 60%. Will start IV Bumex 1mg IV q12 09/09: Tolerating tube feeds at goal. Afebrile. No documented bowel movement. Currently sedated on the ventilator 09/10: Tmax 99.7. Currently 99.4. No bowel movement yesterday. None document since 09/04. Arousable on the ventilator 09/11: Tmax 102.6. Currently 100. Positive BM. Arousable on the ventilator. Tolerating tube feeds. Central line changed yesterday. Plan for bronchoscopy at 1 PM. 09/12: Tmax 100.1. Currently afebrile. Follows commands today. Wiggles toes and give thumbs up appropriately. MRI brain canceled. Tolerating tube feeding with positive BM. Tracheostomy currently planned for . 09/13: Tmax 102. Again on sedation vacation falls commands by wiggling toes bilaterally and giving thumbs up bilaterally appropriate. Tolerating tube feeding with positive BM. Tracheostomy planned for tomorrow with Dr. Ortega. 09/14: Low grade fever. CXR showing more prominent infiltrate on the right lower lobe and left upper lobe. WBC trending up still in normal range. Patient is on 40% FiO2 but continues to fail CPAP due to tachypnea 09/15: Remains intubated sedated, unable to wean off the vent. Plan for tracheostomy today with Dr. Ortega. Continues to have low grade fever. CXR with persistent bibasilar infiltrates 09/16: Tmax 101.1. Currently 100.7. Awake and alert. Following commands. 09/17: Afebrile. Currently on PSV trial. Tolerating tube feeds. One bowel movement. Noted decreased urine output past 48 hours. Diuretics have been discontinued. This a.m. creatinine currently pending. 09/18: Afebrile. Adequate urine output yesterday but decreased 150 past 8 hours. Tolerating tube feeds. One bowel movement. Not tolerating PSV trials today. Subjective 09/19: Tmax 100.5. Urine output picking up. Tolerating tube feeds. No bowel movement 48 hours. Not tolerating PSV trials. Objective Vital Signs Date Time Temp Pulse Resp B/P Pulse Ox O2 Delivery O2 Flow Rate FiO2 09/19/16 12:36 93 40 09/19/16 10:00 96 09/19/16 08:00 100.5 23 107/59 Intake and Output 09/18/16 09/18/16 09/19/16 08:00 16:00 00:00 Intake Total 484 ml 3028 ml 933 ml Output Total 290 ml 360 ml 500 ml Balance 194 ml 2668 ml 433 ml Result Diagram: 09/19/16 0351 09/19/16 0351 Other Results Microbiology Date/Time Procedure Status Source Growth 09/16/16 18:25 Urine Culture - Final Complete Urine Catheterized Urine Maribell [place] Maribell Parapsilosis 09/16/16 15:05 Gram Stain - Final Complete Sputum Endotracheal 09/16/16 15:05 Sputum Culture - Final Complete Sputum Endotracheal NO GROWTH IN 48 HOURS. 09/16/16 11:08 Aerobic Blood Culture - Preliminary Resulted Blood Peripheral NO GROWTH IN 3 DAYS 09/16/16 11:08 Anaerobic Blood Culture - Preliminary Resulted Blood Peripheral NO GROWTH IN 3 DAYS Imaging Last Impressions Chest X-Ray 09/18/16 0600 Signed Impressions: Service Date/Time: Sunday, September 18, 2016 04:38 - CONCLUSION: Scattered bilateral pulmonary infiltrates. No significant change. Kieran Ford MD Renal Ultrasound 09/17/16 0000 Signed Impressions: Service Date/Time: Saturday, September 17, 2016 13:31 - CONCLUSION: Negative renal sonogram. Taco Davidson MD Upper Extremity Ultrasound 09/14/16 0000 Signed Impressions: Service Date/Time: August 08:32 - CONCLUSION: There is thrombus within the left subclavian and internal jugular veins. Danyel Escalante MD Lower Extremity Ultrasound 09/13/16 0000 Signed Impressions: Service Date/Time: Tuesday, September 13, 2016 22:33 - CONCLUSION: Normal examination. Leonides Mason MD Liver Ultrasound 09/08/16 0000 Signed Impressions: Service Date/Time: Thursday, September 08, 2016 08:45 - CONCLUSION: 1. Cholelithiasis with distended gallbladder. However, there are no associated findings present to diagnose acute cholecystitis. If there is persistent clinical concern for acute cholecystitis could evaluate for cystic duct obstruction with hepatobiliary scintigraphy. 2. Hepatomegaly with very heterogeneous echotexture and steatosis. Dejan Allison MD Gall Bladder Ultrasound 08/29/16 0000 Signed Impressions: Service Date/Time: Monday, August 29, 2016 15:21 - CONCLUSION: 1. Hepatomegaly with heterogeneous echotexture throughout the liver. 2. There is a large echogenic area near the neck of the gallbladder suggestive of a stone, but despite its large size, demonstrates no acoustic shadowing in any of the views. Taco Davidson MD CT Angiography 08/15/16 0000 Signed Impressions: Service Date/Time: Monday, August 15, 2016 02:33 - CONCLUSION: 1. No evidence for pulmonary embolism. 2. Multifocal consolidation greatest in the right lower lobe and associated adenopathy. Terry Estrada MD Objective Remarks GENERAL: 56 yo female, critically ill currently resting in bed in no acute distress SKIN: Warm and dry. Currently no rash HEAD: Normocephalic. EYES: No scleral icterus. No injection or drainage. NECK: trachea midline. Tracheostomy is currently clean dry and intact with old dried blood packed. Neck is obese. CARDIOVASCULAR: RRR. S1, S2 no S4 . No murmur RESPIRATORY: Breath sounds equal mahogany but distant, few basilar crackles GASTROINTESTINAL: Abdomen obese, soft, non-tender, hypoactive active bowel sounds MUSCULOSKELETAL: 1+ lower extremity edema Neuro: Currently following commands moving upper and lower extremity spontaneously Positive gag and corneal reflex. A/P Problem List: (1) ARDS (adult respiratory distress syndrome) ICD Code: J80 Status: Acute (2) CHF (congestive heart failure) ICD Code: I50.9 Status: Acute (3) Respiratory failure ICD Code: J96.90 Status: Acute (4) Pneumonia ICD Code: J18.9 Status: Acute Assessment and Plan Neuro/Psych: Acute toxic metabolic encephalopathy Agitated delirium Currently 10 mcg/kg minute propofol and 50 g per minute of fentanyl for sedation/analgesia while tracheostomy/ventilator mode Daily sedation vacation Continue Seroquel 50mg po q8h for delirium and oxycodone 10mg po q4h femi for pain. EEG 09/09 moderate to severe encephalopathy Pulm: Acute hypercapnic and hypoxemic respiratory failure ARDS Pneumonia community-acquired, now with HCAP with carbapenem-resistant pseudomonas Probable JOE On PRVC/AC RR 20, TV 600, PEEP 10, IT: 1.1 and FIO2 0.40. Decrease FIO2 as tiki. for goal spo2 > 88% Bronchodilator therapy every 4 hours and as needed ICU vent bundle. Pulm is following- Dr. Beck Gen surgery Dr. Ortega status post percutaneous tracheostomy 09/15 CV: Hypertension Dyslipidemia Elevated troponin - likely strain Monitor HR and BP keep MAP>65mmg Echo 08/14 showed EF 65-70% mild AR/TR Home medications HCTZ 12.5 mill grams daily currently on hold Home medication lovastatin 20 mg by mouth daily switched to Pravachol 20 mg a night. Renal/: Acute kidney injury A.m. creatinine 2.7. 2.5 yesterday Received crystalloid bolus 2 L normal saline today Bumex discontinued 09/15 Urine eosinophils negative. Renal ultrasound revealed no hydronephrosis 1650 cc urine past 24 hours. s/p exchange Miller with funguria Monitor renal function, I/O's Will consult nephrology. Noted antibiotics antifungals discontinued today GI: Elevated transaminases Cholelithiasis Monitor LFT's ( trending down), on Protonix 40mg daily for GI prophylaxis US liver: Fatty liver and cholelithiasis. Repeat 09/08 revealed cholelithiasis with no acute signs of cholecystitis. Recommend a HIDA scan if indicated On TF Glucerna 1.5 @ 45ml/hr with 2 packets of been a protein 3 times a day minimal residual. Switch to Nepro's 45 cc an hour with increased phosphorus s/p PEG placement 09/01/[address] Ritter Prevacid 30 mg daily for GI prophylaxis Colace/Senokot for bowel regimen. Lactulose daily added ID: Pseudomonas pneumonia Funguria Pertinent cultures blood and sputum cx 08/15- NG strep pneumonia and Legionella urinary Ag negative Blood cultures 08/28: NGTD C Diff negative 08/28. Lines changed 08/28. Sputum 08/30 - Pseudomonas Sputum 09/02 PSAE, resistant to carbapenem, intermediate to Levaquin. 09/07 - urine -Maribell Guilliermondii 09/07 - blood cultures 2 - no growth 09/09 - urine -strep veridians, Maribell parapsilosis 09/10 - blood cultures 2 -no growth 09/11 - broch washings -no growth to date 09/12 - urine -Maribell glabrata and parapsilosis 09/16 - blood cultures 2 - pending 09/16 - sputum -no growth 09/16 - urine -Maribell glabrata and parapsilosis - Dcd cefepime/Levaquin on 09/05. started on Zosyn 4.5gm iv q6h and tobramycin 7 mg/kg/day. Zosyn discontinued secondary to rash Currently cefepime and tobramycin aerosols per infectious disease Vfend day # 8 200 every 12 and Diflucan all discontinued 09/18 - ID following Heme: Normocytic anemia Left IJ/subclavian nonocclusive thrombus Monitor CBC No indication for transfusion of blood product at this time Daily holding heparin drip for DVT with oozing around tracheostomy. Resume today Endo: Diabetes mellitus Hypothyroidism on SSI (medium scale) for glycemic control On Synthroid 200mcg daily. TSH 1.37 FEN: Hyperkalemia Received D 50/insulin/bicarbonate, calcium overnight. Recheck potassium this AM. Last 4.9 GI prophylaxis- Prevacid per tube. DVT prophylaxis Heparin SQ - resume heparin drip today, SCDs Lines: Peripheral IV. - Miller - PEG 09/01/16 - Trach 09/15 Critical Care: The total care time was 35 minutes. Time to perform other separately billable procedures was not included in the critical care time. Problem Qualifiers (1) CHF (congestive heart failure): Qualified Code: I50.9 - Acute congestive heart failure, unspecified congestive heart failure type (2) Respiratory failure: Qualified Code: J96.02 - Acute respiratory failure with hypercapnia (3) Pneumonia: Qualified Code: J18.9 - Pneumonia of both lungs due to infectious organism, unspecified part of lung Fadi Villa MD Sep 19, 2016 13:21
[2016-09-19] MEDS: BUMETANIDE INJ 1 MG/4 ML VIAL IV PUSH SCH ×2 (13:26→17:09)
[2016-09-19] MEDS: CALCIUM ACETATE 667 MG CAP PO SCH ×2 (13:26→17:10)
[2016-09-19] MEDS: METOCLOPRAMIDE HCL 10 MG/2 ML VIAL IV PUSH SCH ×2 (13:36→21:21)
[2016-09-19] MEDS: LACTULOSE SYRUP 20 GM/30 ML CUP PO SCH ×2 (17:10→21:00)
--- NOTE | 2016-09-19 18:25 | MP ---
cc: NICHOLE ORTEGA M.D. DATE OF SURGERY: 09/15/2016 PROCEDURE: Percutaneous tracheostomy. PREOPERATIVE DIAGNOSIS: Ventilator dependent secondary to ARDS and COPD. POSTOPERATIVE DIAGNOSIS: Ventilator dependent secondary to ARDS and COPD. ANESTHESIA: IV sedation. SURGEON: Erum Ortega MD. PUBLIC HEALTH NURSE: Dr. Darian Wylie ESTIMATED BLOOD LOSS: Minimal COMPLICATIONS: None. DRAINS: None. SPECIMEN: None. PROCEDURE IN DETAIL: Please see Dr. Wylie's note for the bronchoscopic portion of the procedure. Following this the endotracheal tube tape was loosened and the neck was sterilely prepped and draped. Time-out was taken confirming the correct patient, site and procedure to be performed. The skin was infiltrated with local anesthetic and a small transverse incision was made two fingerbreadths above the sternal notch. The 18 gauge needle and angiocatheter were then passed into the trachea and the needle withdrawn. The guidewire was passed down the angiocatheter and seen to pass toward the armaan. The angiocatheter was removed. The tracheal punch was passed over the guidewire and was seen to be in the trachea. Following this, the blue rhino was passed over the guidewire with the white catheter guide. The blue rhino was removed leaving the white catheter guide. The #8 percutaneous tracheostomy tube with the 28-Pashto tracheostomy guide were both passed over the white catheter guide and the green guidewire. The tracheostomy tube was seen to pass into the trachea by the bronchoscope. The guidewire, white catheter guide, and 28-Pashto tracheostomy guide were all removed. Dr. Wylie then confirmed the tracheostomy tube was in the trachea by direct visualization through the tracheostomy. The balloon was then inflated, the obturator inserted and the circuit switched over to the tracheostomy tube. The endotracheal tube was removed and the tracheostomy tube secured in place with four 2-0 Prolene sutures. There was good volume return and good end-tidal CO2 on the monitor. The tracheostomy site was clean and dry. Stat chest x-ray was obtained which demonstrated no evidence of pneumothorax. The patient tolerated the procedure well with sats in the 100s and 99 range for the entire procedure. MD GLEN Bunn/JORGE /10:36 AM /5:41 PM
[2016-09-19] MEDS: PRAVASTATIN SOD 20 MG TAB PO SCH (21:20)
[2016-09-20] VITALS (19 sets, daily range): BP systolic 88–120; BP diastolic 50–59; PULSE 86–104; RESP 21–26; TEMP 99.5–100.6; O2SAT 91–99
[2016-09-20] MEDS: oxyCODONE HCL ORAL CONC 20 MG/ML SYRINGE PO SCH ×3 (01:32→07:54)
[2016-09-20] MEDS: RESP: ALBUTEROL 2.5 MG/IPRATROPIUM 0.5 MG NEB (SCH) INH ×4 (02:58→19:28)
[2016-09-20] MEDS: CHLORHEXIDINE GLUCONATE 2 % 1 PACK (2 CLOTHS) TOP SCH (03:21)
[2016-09-20] MEDS: PROPOFOL 1000 MG/100 ML INJ 100 ML IV SCH ×5 (03:21→20:58)
--- NOTE | 2016-09-20 03:38 | RADRPT ---
EXAM DATE/TIME: 09/20/2016 02:26 [facility] COMPARISON: CHEST SINGLE AP, September 18, 2016, 4:38. INDICATIONS : Short of breath. MEDICAL HISTORY : Congestive heart failure. SURGICAL HISTORY : None. ENCOUNTER: Subsequent ACUITY: 1 week PAIN SCORE: Non-responsive. LOCATION: Bilateral chest FINDINGS: There continue to be scattered bilateral pulmonary infiltrates without significant change compared to the prior study. No evidence of pneumothorax. The heart size is stable. The tracheostomy tube remain s in place. No significant pleural effusions. CONCLUSION: No significant interval change. Kieran Ford MD on September 20, 2016 at 3:36 Board Certified Radiologist. This report was verified electronically.
[2016-09-20] MEDS: QUEtiapine FUMARATE 25 MG TAB PO SCH ×3 (05:27→21:01)
[2016-09-20] MEDS: LEVOTHYROXINE SODIUM 200 MCG TAB PO SCH (05:27)
[2016-09-20] MEDS: METOCLOPRAMIDE HCL 10 MG/2 ML VIAL IV PUSH SCH ×3 (05:27→21:00)
[2016-09-20] MEDS: HEPARIN-D5W 25,000 U/250 ML 250 ML IV SCH (05:28)
[2016-09-20] MEDS: ACETAMINOPHEN 325 MG TAB PO PRN (05:46)
[2016-09-20 06:08] LABS: BASOPHIL # 0.1 TH/MM3 (0-0.2); BASOPHIL % 1.6 % (0.0-2.0); EOSINOPHIL # 1.2 TH/MM3 (0-0.4); EOSINOPHIL % 18.5 % (0.0-4.0); HEMATOCRIT 29.5 % (35.0-46.0); LYMPH % 21.1 % (9.0-44.0); LYMPHOCYTE # 1.3 TH/MM3 (1.0-4.8); MEAN CORPUSCULAR HEMOGLOBIN 27.8 PG (27.0-34.0); MEAN CORPUSCULAR HGB CONC 31.9 % (32.0-36.0); MONO % 11.1 % (0.0-8.0); NEUT % 47.7 % (16.0-70.0); PLATELET COUNT 227 TH/MM3 (150-450); RED BLOOD COUNT 3.39 MIL/MM3 (4.00-5.30); RED CELL DISTRIBUTION WIDTH 19.4 % (11.6-17.2); WHITE BLOOD COUNT 6.3 TH/MM3 (4.0-11.0)
[2016-09-20 06:13] LABS: HEMO FLAGS AUTO DIFF
[2016-09-20 06:28] LABS: BICARBONATE 21.1 MEQ/L (21.0-32.0); POTASSIUM 4.5 MEQ/L (3.5-5.1)
[2016-09-20] MEDS: LACTULOSE SYRUP 20 GM/30 ML CUP PO SCH ×4 (07:22→20:58)
[2016-09-20] MEDS: CALCIUM ACETATE 667 MG CAP PO SCH ×4 (07:53→17:34)
[2016-09-20] MEDS: DOCUSATE SODIUM 100 MG/10 ML UDC PO SCH ×2 (07:54→20:58)
[2016-09-20] MEDS: POLYETHYLENE GLYCOL 17 GM PKG PO SCH (07:54)
[2016-09-20] MEDS: SENNOSIDES SYRUP 8.8 MG/5 ML CUP PO SCH ×2 (07:54→20:58)
[2016-09-20] MEDS: BUMETANIDE INJ 1 MG/4 ML VIAL IV PUSH SCH ×3 (07:54→17:34)
[2016-09-20] MEDS: SODIUM CHLORIDE 0.9% FLUSH 10 ML FLUSH IV FLUSH SCH ×2 (07:55→20:58)
[2016-09-20] MEDS: SODIUM CHLORIDE 0.9% FLUSH 10 ML FLUSH IVF SCH (07:55)
[2016-09-20] MEDS: LANSOPRAZOLE SOLUTAB 30 MG TAB NG SCH (07:55)
[2016-09-20] MEDS: SODIUM CHLORIDE 0.9% FLUSH 10 ML FLUSH IVF PRN ×2 (07:55)
[2016-09-20] MEDS: BENEPROTEIN POWDER 1 PACK G-TUBE SCH ×3 (07:56→17:34)
[2016-09-20] MEDS: ARTIFICIAL TEARS OPTH SOLN 15 ML BTL EACH EYE SCH ×3 (07:56→17:34)
[2016-09-20] MEDS: INSULIN NovoLIN REGULAR SUPPLEMENTAL SCALE SQ SCH ×2 (07:56→20:00)
[2016-09-20 08:32] LABS: BANDS 14 % (0-6); BASOPHILS 1 % (0-2); CORRECTED NUCLEATED RBC 2 /100 WBC (0-0); EOSINOPHILS 9 % (0-4); MYELOCYTES 1 % (0-0); NEUTROPHIL # MANUAL DIFF 4.7 TH/MM3 (1.8-7.7); POLYS (SEG NEUTROPHILS) 59 % (16-70); WBC DIFF SAMPLE 100
[2016-09-20 08:34] LABS: PLATELET ESTIMATE SMEAR NORMAL (NORMAL); PLATELET MORPHOLOGY NORMAL (NORMAL); POLYCHROMASIA 2.7 % (0.0-1.9); SCAN/DIFF FINAL DIFF MANUAL
[2016-09-20 08:36] LABS: OVALOCYTES 1+ (NORMAL)
--- NOTE | 2016-09-20 10:01 | HHI.CCPN ---
Subjective Remarks/Hospital Course 56-year-old morbidly obese female brought in the emergency department in respiratory distress. She was intubated by ER attending. She has been sick for about a week with symptoms consistent with UTI. She's had fevers and chills. She's been short of breath. She's had fatigue. She has had a cough and chest pain with coughing. The family reports that she's been delirious for the last 3 days. 08/15 Patient is sedated with Diprivan, Versed, Fentanyl and intubated. CTA chest showed no PE multifocal consolidation greatest in RLL. Tmax 100.6 08/16 Patient is sedated with Diprivan and Fentanyl. Afebrile. CXR this morning showed increase consolidation. 08/17 Patient remains sedated and intubated. T:100.4 On PRVC/AC RR 18, Tv 500, IT :1.0 PEEP:10, FIO2 75% 08/18 Remains sedated and intubated. Afebrile. CXR this morning unchanged bibasilar infiltrates and effusions. 08/19 Patient was placed on rotoprone bed last night for proning sedated with Diprivan, Versed and Fentnayl in addition she is on Nimbex. On PRVC/AC RR 20, TV 400, IT:1.1, PEEP:14 and FIO2 80%. Afebrile. 08/20 Patient remains sedated and intubated. Remains on PRVC/AC mode with improvements in her oxygenation on FIO2 50% from 80% yesterday and PEEP:12. 08/21 Patient remains sedated and intubated. On PRVC/AC mode with RR 20, TV 400, IT:1.1, PEEP: 12 and FIO2 50%. Afebrile. 08/22 No acute events overnight. Remains sedated, intubated and on Nimbex.. T: 99.8. On PRVC mode with PEP: 12, FIO2 50%. CXR from yesterday showed better aeration, RLL infiltrate unchanged. 08/23 Chest x-ray worsening. Methylprednisolone taper to twice a day by pulmonary. The patient's FiO2 was found to be 100% this a.m., will continue to wean. 08/24: 1 desat episode yesterday when supine. still remains prone now. no vasopressors. sedated and paralyzed. 08/25: flolan added yesterday. fio2 down to 60%. remained supine all night. still on neuromuscular blockade. net -500cc/24h. 08/26: good diuresis. remained supine. fio2 70%. weaning flolan. remains with significant respiratory support and high peep despite 6L diuresis overnight. Cr still stable. 08/27: continues with good diuresis. net negative 3L/24h. fio2 down to 55%. flolan off. still high peep. not ready for SBT. more agitated today. Cr remains stable despite aggressive diuresis. 08/28: diuresis continues. -3.3L/24h. spiked fever overnight with a jump in wbc to 16 this AM. fio2 60%, but her pulmonary improvements have plateaued at this point. still on peep 12. 08/29: net -1.7L/24h. Cr starting to rise. still spiking fevers despite vanc/ cefepime added yesterday. wbc continues to rise. clinically appears infected, although unclear source. peep 10, fio2 60%. will likely need trach. 08/30: net +800cc, but Cr downtrending. appears clinically euvolemic. fever curve downtrending. wbc downtrending. on 40% fio2, peep 8 today. still following commands. 08/31: failed SBT after only 45 minutes yesterday. intubated for > 2 weeks at this point. will attempt to pursue trach/peg today. will continue with pulmonary strengthening. daily SBTs. 09/01 CXR showing increasing bibasilar infiltrate. Failed C Pap trial in 5 minutes due to severe tachypnea. PEG tube today. Family has not decided on trach yet 09/02: Patient febrile to 101.1, CXR increased infiltrate Tmax Tmax 101.1. Currently 9.7 left upper lung and right lower lobe. Pancultured. Cefepime added today and one dose of vancomycin. Continues to fail C Pap trial due to tachypnea and respiratory distress 09/03: Remains hypoxemic on 75% oxygen with new pneumonia. Sputum culture 09/02/16 with GNR. Family agreeable for tracheostomy but patient is not stable at this point for trach 09/04: still on 70% fio2. still hypoxic. pneumonia persists. needs trach, but too unstable at this point. 09/05: remains on 75% fio2. pseudomonas sensitivities came back resistant to carbapenems, intermediate to levaquin. still spiking fevers. not clinically improving. wbc remains elevated. 09/06: Remains on 12 of PEEP and FiO2 75%. Zosyn and tobramycin started yesterday. WBC count trending down today 11.5 from 13.1. Remains heavily sedated for ventilator synchrony. MAXIMUM TEMPERATURE 100.3 09/07: Continues to spike fever. CXR unchanged. WBC count improving. PEEP 14. FiO2 60%. Will start IV Bumex 1mg IV q12 09/09: Tolerating tube feeds at goal. Afebrile. No documented bowel movement. Currently sedated on the ventilator 09/10: Tmax 99.7. Currently 99.4. No bowel movement yesterday. None document since 09/04. Arousable on the ventilator 09/11: Tmax 102.6. Currently 100. Positive BM. Arousable on the ventilator. Tolerating tube feeds. Central line changed yesterday. Plan for bronchoscopy at 1 PM. 09/12: Tmax 100.1. Currently afebrile. Follows commands today. Wiggles toes and give thumbs up appropriately. MRI brain canceled. Tolerating tube feeding with positive BM. Tracheostomy currently planned for . 09/13: Tmax 102. Again on sedation vacation [place] commands by wiggling toes bilaterally and giving thumbs up bilaterally appropriate. Tolerating tube feeding with positive BM. Tracheostomy planned for tomorrow with Dr. Ortega. 09/14: Low grade fever. CXR showing more prominent infiltrate on the right lower lobe and left upper lobe. WBC trending up still in normal range. Patient is on 40% FiO2 but continues to fail CPAP due to tachypnea 09/15: Remains intubated sedated, unable to wean off the vent. Plan for tracheostomy today with Dr. Ortega. Continues to have low grade fever. CXR with persistent bibasilar infiltrates 09/16: Tmax 101.1. Currently 100.7. Awake and alert. Following commands. 09/17: Afebrile. Currently on PSV trial. Tolerating tube feeds. One bowel movement. Noted decreased urine output past 48 hours. Diuretics have been discontinued. This a.m. creatinine currently pending. 09/18: Afebrile. Adequate urine output yesterday but decreased 150 past 8 hours. Tolerating tube feeds. One bowel movement. Not tolerating PSV trials today. 09/19: Tmax 100.5. Urine output picking up. Tolerating tube feeds. No bowel movement 48 hours. Not tolerating PSV trials. Subjective 09/20: Diffuse drug morbilliform exanthem noted this a.m. Tmax 100.6. Urine output around 20 cc an hour. Not tolerating PSV trials. Possibly new right pleural effusion noted on chest x-ray. Will need hemodialysis Objective Vital Signs Date Time Temp Pulse Resp B/P Pulse Ox O2 Delivery O2 Flow Rate FiO2 09/20/16 07:41 40 09/20/16 07:41 95 09/20/16 06:00 103 09/20/16 04:00 100.6 25 104/57 Intake and Output 09/19/16 09/19/16 09/20/16 08:00 16:00 00:00 Intake Total 710 ml 543 ml 565 ml Output Total 200.0 ml 145.0 ml 325 ml Balance 510.0 ml 398.0 ml 240 ml Result Diagram: 09/20/16 0522 09/20/16 0522 Other Results Microbiology Date/Time Procedure Status Source Growth 09/20/16 01:50 Stool Occult Blood (BRITTANI) Received Stool Stool Pending 09/16/16 18:25 Urine Culture - Final Complete Urine Catheterized Urine Maribell [place] Maribell Parapsilosis 09/16/16 15:05 Gram Stain - Final Complete Sputum Endotracheal 09/16/16 15:05 Sputum Culture - Final Complete Sputum Endotracheal NO GROWTH IN 48 HOURS. 09/16/16 11:08 Aerobic Blood Culture - Preliminary Resulted Blood Peripheral NO GROWTH IN 3 DAYS 09/16/16 11:08 Anaerobic Blood Culture - Preliminary Resulted Blood Peripheral NO GROWTH IN 3 DAYS Imaging Last Impressions Chest X-Ray 09/20/16 0600 Signed Impressions: Service Date/Time: Tuesday, September 20, 2016 02:26 - CONCLUSION: No significant interval change. Kieran Ford MD Renal Ultrasound 09/17/16 0000 Signed Impressions: Service Date/Time: Saturday, September 17, 2016 13:31 - CONCLUSION: Negative renal sonogram. Taco Davidson MD Upper Extremity Ultrasound 09/14/16 0000 Signed Impressions: Service Date/Time: August 08:32 - CONCLUSION: There is thrombus within the left subclavian and internal jugular veins. Danyel Escalante MD Lower Extremity Ultrasound 09/13/16 0000 Signed Impressions: Service Date/Time: Tuesday, September 13, 2016 22:33 - CONCLUSION: Normal examination. Leonides Mason MD Liver Ultrasound 09/08/16 0000 Signed Impressions: Service Date/Time: Thursday, September 08, 2016 08:45 - CONCLUSION: 1. Cholelithiasis with distended gallbladder. However, there are no associated findings present to diagnose acute cholecystitis. If there is persistent clinical concern for acute cholecystitis could evaluate for cystic duct obstruction with hepatobiliary scintigraphy. 2. Hepatomegaly with very heterogeneous echotexture and steatosis. Dejan Allison MD Gall Bladder Ultrasound 08/29/16 0000 Signed Impressions: Service Date/Time: Monday, August 29, 2016 15:21 - CONCLUSION: 1. Hepatomegaly with heterogeneous echotexture throughout the liver. 2. There is a large echogenic area near the neck of the gallbladder suggestive of a stone, but despite its large size, demonstrates no acoustic shadowing in any of the views. Taco Davidson MD CT Angiography 08/15/16 0000 Signed Impressions: Service Date/Time: Monday, August 15, 2016 02:33 - CONCLUSION: 1. No evidence for pulmonary embolism. 2. Multifocal consolidation greatest in the right lower lobe and associated adenopathy. Terry Estrada MD Objective Remarks GENERAL: 56 yo female, critically ill currently resting in bed in no acute distress SKIN: Warm and dry. With diffuse morbilliform exanthem rash HEAD: Normocephalic. EYES: No scleral icterus. No injection or drainage. NECK: trachea midline. Tracheostomy is currently clean dry and intact with old dried blood packed. Neck is obese. CARDIOVASCULAR: RRR. S1, S2 no S4 . No murmur RESPIRATORY: Breath sounds equal mahogany but distant, few basilar crackles GASTROINTESTINAL: Abdomen obese, soft, non-tender, hypoactive active bowel sounds MUSCULOSKELETAL: 1+ lower extremity edema Neuro: Currently following commands moving upper and lower extremity spontaneously Positive gag and corneal reflex. A/P Problem List: (1) ARDS (adult respiratory distress syndrome) ICD Code: J80 Status: Acute (2) CHF (congestive heart failure) ICD Code: I50.9 Status: Acute (3) Respiratory failure ICD Code: J96.90 Status: Acute (4) Pneumonia ICD Code: J18.9 Status: Acute Assessment and Plan Neuro/Psych: Acute toxic metabolic encephalopathy Agitated delirium Currently 10 mcg/kg minute propofol and 50 g per minute of fentanyl for sedation/analgesia while tracheostomy/ventilator mode Discontinue fentanyl today secondary to rash Daily sedation vacation Continue Seroquel 50mg po q8h for delirium and oxycodone 10mg po q4h femi for pain. Discontinued oxycodone secondary to rash EEG 09/09 moderate to severe encephalopathy Pulm: Acute hypercapnic and hypoxemic respiratory failure ARDS Pneumonia community-acquired, now with HCAP with carbapenem-resistant pseudomonas Probable JOE On PRVC/AC RR 20, TV 600, PEEP 10, IT: 1.1 and FIO2 0.40. Decrease FIO2 as tiki. for goal spo2 > 88% Bronchodilator therapy every 4 hours and as needed ICU vent bundle. Pulm rick goins- Dr. Beck Gen surgery Dr. Ortega status post percutaneous tracheostomy 09/15 CV: Hypertension Dyslipidemia Elevated troponin - likely strain Monitor HR and BP keep MAP>65mmg Echo 08/14 showed EF 65-70% mild AR/TR Home medications HCTZ 12.5 mill grams daily currently on hold Home medication lovastatin 20 mg by mouth daily switched to Pravachol 20 mg a night. Renal/: Acute kidney injury A.m. creatinine 3.5. 3.1 yesterday Received crystalloid bolus 2 L normal saline today Bumex discontinued 09/15 and restarted 09/19 Urine eosinophils negative. Renal ultrasound revealed no hydronephrosis 450 cc urine past 24 hours. s/p exchange Miller with funguria Monitor renal function, I/O's Will consult nephrology. Noted antibiotics antifungals discontinued 09/18 GI: Elevated transaminases Cholelithiasis Monitor LFT's ( trending down), on Protonix 40mg daily for GI prophylaxis US liver: Fatty liver and cholelithiasis. Repeat 09/08 revealed cholelithiasis with no acute signs of cholecystitis. Recommend a HIDA scan if indicated On TF Glucerna 1.5 @ 45ml/hr with 2 packets of been a protein 3 times a day minimal residual. Switch to Nepro's 45 cc an hour with increased phosphorus s/p PEG placement 09/01/[address] Ritter Pepcid 10 mg IV twice a day for GI prophylaxis Colace/Senokot for bowel regimen. Lactulose daily added ID: Pseudomonas pneumonia Funguria Pertinent cultures blood and sputum cx 08/15- NG strep pneumonia and Legionella urinary Ag negative Blood cultures 08/28: NGTD C Diff negative 08/28. Lines changed 08/28. Sputum 08/30 - Pseudomonas Sputum 09/02 PSAE, resistant to carbapenem, intermediate to Levaquin. 09/07 - urine -Maribell Guilliermondii 09/07 - blood cultures 2 - no growth 09/09 - urine -strep veridians, Maribell parapsilosis 09/10 - blood cultures 2 -no growth 09/11 - broch washings -no growth to date 09/12 - urine -Maribell glabrata and parapsilosis 09/16 - blood cultures 2 - pending 09/16 - sputum -no growth 09/16 - urine -Maribell glabrata and parapsilosis - Dcd cefepime/Levaquin on 09/05. started on Zosyn 4.5gm iv q6h and tobramycin 7 mg/kg/day. 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 Resume today Endo: Diabetes mellitus Hypothyroidism on SSI (medium scale) for glycemic control On Synthroid 200mcg daily. TSH 1.37 FEN: Hyperkalemia Received D 50/insulin/bicarbonate, calcium overnight. Recheck potassium this AM. Last 4.9 GI prophylaxis- Prevacid per tube. DVT prophylaxis Heparin SQ - resume heparin drip today, SCDs Derm: Exanthem - morbilliform Discontinue fentanyl and oxycodone Pepcid 10 twice a day/Benadryl 25 every 6 and Solu-Medrol 40 every 8 Lines: Peripheral IV. - Miller - PEG 09/01/16 - Trach 09/15 Critical Care: The total care time was 35 minutes. Time to perform other separately billable procedures was not included in the critical care time. Loree Marinelli, daughter (HCP): [phone] Rony Marinelli, significant other: [phone] Problem Qualifiers (1) CHF (congestive heart failure): Qualified Code: I50.9 - Acute congestive heart failure, unspecified congestive heart failure type (2) Respiratory failure: Qualified Code: J96.02 - Acute respiratory failure with hypercapnia (3) Pneumonia: Qualified Code: J18.9 - Pneumonia of both lungs due to infectious organism, unspecified part of lung Fadi Villa MD Sep 20, 2016 10:01
[2016-09-20] MEDS ORDERED: SODIUM CHLOR 0.9% 1000 ML INJ 1,000 ML IV PRN ×2 (10:21)
[2016-09-20] MEDS ORDERED: NITROGLYCERIN 0.4 MG SL 25 TABS/BTL SL PRN (10:30)
[2016-09-20] MEDS ORDERED: HEPARIN SODIUM - IV 10,000 UNITS/10 ML VIAL IVF PRN (10:30)
[2016-09-20] MEDS ORDERED: cloNIDine HCL 0.1 MG TAB PO PRN (10:30)
[2016-09-20] MEDS ORDERED: SODIUM CHLORIDE 0.9% FLUSH 10 ML FLUSH IV FLUSH PRN (10:30)
[2016-09-20] MEDS ORDERED: ACETAMINOPHEN 325 MG TAB PO PRN (10:30)
[2016-09-20] MEDS ORDERED: GELATIN 12 MM/7 MM FOAM TOP PRN (10:30)
[2016-09-20] MEDS ORDERED: ONDANSETRON HCL 4 MG/2 ML VIAL IV PRN (10:30)
[2016-09-20] MEDS: FAMOTIDINE 20 MG/2 ML VIAL IV PUSH SCH ×2 (10:47→22:19)
[2016-09-20] MEDS: diphenhydrAMINE HCL 50 MG/ML VIAL IV PUSH SCH ×3 (10:48→22:19)
--- NOTE | 2016-09-20 11:56 | PD.RAD ---
Post Procedure Progress Note Pre Procedure Diagnosis: (1) Acute kidney injury Post Procedure Diagnosis: (1) Acute kidney injury Procedure Date: Sep 20, 2016 Supervising Radiologist: Beto Barbosa Proceduralist/Assist: RT Channing(R), RT Braydon(R) Anesthesia: Local Plan of Activity Patient to Unit: Critical Care Patient Condition: Poor See PACS Report for procedural detail/treatment Central Venous Access Device Procedure 1 Right Subclavian Hemodialysis Catheter Non-Tunneled Placement dual lumen [place]: 14 PICC Line Length (cm): 20 Beto Barbosa MD Sep 20, 2016 11:56
[2016-09-20] MEDS ORDERED: HEPARIN SODIUM - IV 2,000 UNITS/2 ML VIAL IV FLUSH PRN (12:00)
[2016-09-20] MEDS ORDERED: SODIUM CHLORIDE 0.9% FLUSH 10 ML FLUSH IVF PRN (12:00)
--- NOTE | 2016-09-20 13:10 | RADRPT ---
EXAM DATE/TIME: 09/20/2016 11:11 [place] COMPARISON: No previous studies available for comparison. INDICATIONS : Patient presents with renal insufficiency in need of dialysis catheter placement. MEDICAL HISTORY : Hypothyroidism Dyslipidemia Obstructive sleep apnea Obesity hypoventilation syndrome Tobacco use disorder SURGICAL HISTORY : Tubal ligation Hysterectomy ENCOUNTER: Subsequent ACUITY: 1 month PAIN SCORE: Nonresponsive. LOCATION: N/A. FLUORO TIME: 0.9 minutes IMAGE SERIES: 1 ACCESS: Right subclavian vein (patient has a trach collar) DEVICE(S): 1.) 14 [place] dual lumen 20 cm Schon catheter PROCEDURE : 1. Ultrasound guided venipuncture. 2. Fluoroscopic guidance. 3. Central line placement. The risks, benefits and alternatives to the procedure were explained and verbal and written consent w as obtained. The site was prepped in sterile fashion. Full sterile technique was used, including ca p, mask, sterile gloves and gown and a large sterile sheet. Hand hygiene and 2% chlorhexidine prep w as utilized per protocol for cutaneous antisepsis with appropriate dry time for site. The skin and subcutaneous tissues were infiltrated with local anesthetic solution. A suitable site a faheem the vein was selected with ultrasound and fluoroscopic guidance. A small incision was made. Th e vein was accessed under direct ultrasound visualization using the micropuncture technique. The evangelina ropuncture set was exchanged for a 0.035 wire. The tract was dilated. The catheter was advanced int o position under direct fluoroscopic visualization. The catheter was fixed in place with suture and a sterile dressing was applied. The patient tolerated the procedure well and there were no complications. CONCLUSION: Uncomplicated line placement as above. Beto Barbosa MD on September 20, 2016 at 13:07 Board Certified Radiologist. This report was verified electronically.
--- NOTE | 2016-09-20 13:23 | HHI.NPPN ---
Subjective General Problems: Edema, Hypotension, Obesity Renal Failure: Acute Interval History Renal function is worse, urine output has decreased despite Bumex. She is unresponsive, febrile, tachycardic, fluid overloaded. (Genny Lowery) Review of Systems General General Remarks unable to evaluate (Genny Lowery) Objective Data Data 09/19/16 09/20/16 19:00 07:00 Intake Total 543 ml 1228 ml Output Total 145.0 ml 1350 ml Balance 398.0 ml -122 ml Intake Oral 0 ml 0 ml IV Total 248 ml 602 ml Tube Feeding 295 ml 626 ml Output Urine Total 145 ml 350 ml Stool Total 1000 ml Tube Feeding Residual Discard 0 ml # Bowel Movements 0 2 Vital Signs Date Time Temp Pulse Resp B/P Pulse Ox O2 Delivery O2 Flow Rate FiO2 09/20/16 12:53 95 40 09/20/16 11:57 99 100 09/20/16 10:16 94 40 09/20/16 07:41 40 09/20/16 07:41 95 40 09/20/16 06:00 103 09/20/16 04:00 40 09/20/16 04:00 100.6 102 25 104/57 94 09/20/16 04:00 94 40 09/20/16 04:00 102 09/20/16 02:00 101 09/20/16 00:00 100.3 104 25 109/57 96 09/20/16 00:00 104 09/20/16 00:00 40 09/19/16 23:59 96 40 09/19/16 22:00 113 09/19/16 20:47 92 40 09/19/16 20:00 99.6 111 30 137/65 94 09/19/16 20:00 111 09/19/16 20:00 40 09/19/16 18:00 92 09/19/16 16:00 94 09/19/16 16:00 40 09/19/16 16:00 99.8 94 21 100/52 93 09/19/16 15:00 93 40 09/19/16 14:00 87 (Genny Lowery) -: 09/20/16 0522 09/20/16 0522 Microbiology 09/20/16 Stool Occult Blood (BRITTANI) - Final, Complete HEMOCCULT NEGATIVE Imaging Last 72 hours Impressions Chest X-Ray 09/20/16 06 Signed Impressions: Service Date/Time: Tuesday, September 20, 2016 02:26 - CONCLUSION: No significant interval change. Kieran Ford MD Chest X-Ray 09/18/16 06 Signed Impressions: Service Date/Time: Sunday, September 18, 2016 04:38 - CONCLUSION: Scattered bilateral pulmonary infiltrates. No significant change. Kieran Ford MD Tubes & Lines: Miller Tubes & Lines Comment trach, PEG Drip Comment heparin, propofol, fentanyl (Genny Lowery B. VOCAL MUSIC TEACHER) Physical Exam General Appearance: Well Developed, No Acute Distress, Comfortable, Obese (Genny Lowery B. [employer]OC[employer] MUSIC TEACHER) Throat Throat Exam: Oral Mucosa [place] & Moist (Genny Lowery B. VOCAL MUSIC TEACHER) Neck Neck Exam: Neck Supple Neck Remarks trach (Genny Lowery B. VOCAL MUSIC TEACHER) Pulmonary Resp Remarks vented lung sounds (Genny Lowery B. VOCAL MUSIC TEACHER) Cardiology CV Exam: Regular, Normal Sinus Rhythm (Genny Lowery B. VOC[employer] MUSIC TEACHER) Gastrointestinal/Abdomen GI Exam: Soft, Bowel Sounds Present GI Remarks morbidly obese, + PEG infusing (Genny Lowery B. VOC[employer] MUSIC TEACHER) Musculoskeletal MS Exam: Joints Intact, Good Strength, Unable to Ambulate (Genny Lowery B. VOCAL MUSIC TEACHER) Integumentary Skin Exam: Warm, Dry (Genny Lowery B. VOCAL MUSIC TEACHER) Extremeties Extremities Exam: Pedal Pulses Palpable, Moderate Edema, Pitting Edema ( Genny Lowery B. VOCAL MUSIC TEACHER) Neurologic Neuro Exam: Unresponsive, Sedated (BeverleyGenny B. VOCAL MUSIC TEACHER) VTE Prophylaxis Device: SCDs Meds: Heparin (BeverleyGenny B. VOCAL MUSIC TEACHER) Assessment/Plan Assessment Summary: MIKE/Acute Renal Failure, Acute Tubular Necrosis, Hypotension Problem List: (1) Acute kidney injury Plan: In a pt with normal renal function at [facility] MIKE: ATN from sepsis syndrome and diminished renal perfusion aminoglycoside induced nephrotoxicity likely also contributing , she was given vancomycin and tobramycin renal function is worse today, urine output has dropped despite diuretics vascath to be placed, initiate HD today UF as tolerated avoid IVF, nephrotoxins maintain adequate MAP, pressors if needed daily renal panel (2) ARDS (adult respiratory distress syndrome) Plan: s/p trach placement continue Ventilator support: 20/600/40/10 Vinyl Hanger managing. (3) Pneumonia Plan: Pseudomonas in the sputum. ID following. monitor the pt clinically, she is currently off antibiotics however she is febrile today (4) Hypothyroidism Plan: on synthroid (5) Morbid obesity (Genny Lowery) Plan patient was seen and examined. Inadequate response to diuretics, volume overload persists. To initiate dialysis from today. Discussed with Dr. Villa. Patient had received IV Tobramycin in the past. MIKE likely drug induced, either ATN from aminoglycosides or AIN. (Anshu Tan MD) Problem Qualifiers (1) Pneumonia: Qualified Code: J18.9 - Pneumonia of both lungs due to infectious organism, unspecified part of lung Genny Lowery Sep 20, 2016 13:23 Anshu Tan MD Sep 20, 2016 17:27
[2016-09-20] MEDS: methylPREDNISolone SOD SUCC 40 MG/1 ML VIAL IV PUSH SCH ×2 (15:18→21:00)
[2016-09-20] MEDS: HEPARIN SODIUM - IV 10,000 UNITS/10 ML VIAL PRN (17:14)
[2016-09-20] MEDS: GENTAMICIN SULFATE (DIALYSIS USE ONLY) 20 MG/2 ML VIAL IV PRN (17:14)
--- NOTE | 2016-09-20 17:50 | HHI.PR ---
Subjective Remarks Sedated on the vent .FIO2 at 40 %. PEEP is at 8 CM. Had Trach and PEG. did not tolerate weaning. Output is better Objective Vital Signs Date Time Temp Pulse Resp B/P Pulse Ox O2 Delivery O2 Flow Rate FiO2 09/20/16 16:39 91 50 09/20/16 16:00 86 09/20/16 16:00 100.2 97 26 88/50 95 09/20/16 16:00 50 09/20/16 14:00 93 09/20/16 12:53 95 40 09/20/16 12:00 40 09/20/16 12:00 99.9 104 21 101/52 93 09/20/16 12:00 104 09/20/16 11:57 99 100 09/20/16 10:16 94 40 09/20/16 10:00 98 09/20/16 08:00 101 09/20/16 08:00 40 09/20/16 08:00 99.7 101 24 104/52 94 09/20/16 07:41 40 09/20/16 07:41 95 40 09/20/16 06:00 103 09/20/16 04:00 40 09/20/16 04:00 100.6 102 25 104/57 94 09/20/16 04:00 94 40 09/20/16 04:00 102 09/20/16 02:00 101 09/20/16 00:00 100.3 104 25 109/57 96 09/20/16 00:00 104 09/20/16 00:00 40 09/19/16 23:59 96 40 09/19/16 22:00 113 09/19/16 20:47 92 40 09/19/16 20:00 99.6 111 30 137/65 94 09/19/16 20:00 111 09/19/16 20:00 40 09/19/16 18:00 92 I/O 09/19/16 09/19/16 09/19/16 09/20/16 09/20/16 09/20/16 07:00 15:00 23:00 07:00 15:00 23:00 Intake Total 710 ml 543 ml 565 ml 663 ml 558 ml Output Total 200 ml 145 ml 325 ml 1025 ml 400 ml 4000 ml Balance 510 ml 398 ml 240 ml -362 ml 158 ml -4000 ml Intake Oral 0 ml 0 ml 0 ml 0 ml 0 ml IV Total 320 ml 248 ml 279 ml 323 ml 274 ml Tube Feeding 390 ml 295 ml 286 ml 340 ml 284 ml Output Urine Total 200 ml 145 ml 175 ml 175 ml 200 ml Stool Total 150 ml 850 ml 200 ml Tube Feeding Residual Discard 0 ml 0 ml Hemodialysis 4000 ml # Bowel Movements 0 0 2 Result Diagram: 09/20/1652109/20/16521 Objective Remarks This is an obese middle-aged white female who is sedated. HEENT: Head normocephalic. Pupils react. Neck: No bruits, no thyroid enlargement, no lymphadenopathy. Chest: Decreased breath sounds.Occ wheeze heard. Heart: Heart sounds were regular. S1-S2 no murmur, no S3. Abdomen: Soft, benign. No masses, or tenderness. Bowel sounds are active. Extremities: No edema ,but has a Diffuse excoriating rash . Neuro : She is sedated. Assessment and Plan Assessment and Plan IMPRESSION 1. Acute hypercapnic respiratory failure. 2. Pulmonary edema. 3. Drug rash 4. Obstructive sleep apnea syndrome 5. Hypertension 6. Hypothyroidism. 7. MIKE Plan : 1. Cont weaning FIO2 and PEEP to keep sat >92 2. Trach toilet and suctioning 3. Nebs qid , duoneb. 4. Reduce sedation. 5. CPAP trial daily. 6. Chest X ray. 7. Tube feeds at 50 CC 8. Diuretic per renal. Abimael Beck MD Sep 20, 2016 17:50
[2016-09-20] MEDS: PRAVASTATIN SOD 20 MG TAB PO SCH (20:58)
[2016-09-20 22:56] LABS: APTT (PATIENT) 47.2 SEC (24.3-30.1)
[2016-09-21] VITALS (17 sets, daily range): BP systolic 107–126; BP diastolic 55–59; PULSE 81–105; RESP 20–24; TEMP 98.4–99.5; O2SAT 89–98
[2016-09-21] MEDS: HEPARIN-D5W 25,000 U/250 ML 250 ML IV SCH ×2 (01:08→13:28)
[2016-09-21] MEDS: PROPOFOL 1000 MG/100 ML INJ 100 ML IV SCH ×5 (01:08→21:27)
[2016-09-21] MEDS: CHLORHEXIDINE GLUCONATE 2 % 1 PACK (2 CLOTHS) TOP SCH (04:00)
[2016-09-21] MEDS: RESP: ALBUTEROL 2.5 MG/IPRATROPIUM 0.5 MG NEB (SCH) INH ×4 (04:06→19:38)
--- NOTE | 2016-09-21 04:12 | RADRPT ---
EXAM DATE/TIME: 09/21/2016 02:46 [facility] COMPARISON: CHEST SINGLE AP, September 20, 2016, 2:26. INDICATIONS : Shortness of breath MEDICAL HISTORY : Congestive heart failure. SURGICAL HISTORY : None. ENCOUNTER: Subsequent ACUITY: 1 week PAIN SCORE: Non-responsive. LOCATION: Bilateral chest FINDINGS: The tracheostomy tube remains in place. No pneumothorax. There continues to be bilateral pulmonary in filtrates without significant change compared to the prior examination. The heart size is enlarged bu t stable. The bony structures are stable. CONCLUSION: No significant change of bilateral pulmonary infiltrates. Kieran Ford MD on September 21, 2016 at 4:10 Board Certified Radiologist. This report was verified electronically.
[2016-09-21] MEDS: methylPREDNISolone SOD SUCC 40 MG/1 ML VIAL IV PUSH SCH ×3 (05:09→22:11)
[2016-09-21] MEDS: QUEtiapine FUMARATE 25 MG TAB PO SCH ×3 (05:10→22:11)
[2016-09-21] MEDS: diphenhydrAMINE HCL 50 MG/ML VIAL IV PUSH SCH ×2 (05:10→09:52)
[2016-09-21] MEDS: LEVOTHYROXINE SODIUM 200 MCG TAB PO SCH (05:10)
[2016-09-21] MEDS: METOCLOPRAMIDE HCL 10 MG/2 ML VIAL IV PUSH SCH ×3 (05:10→22:11)
[2016-09-21 06:59] LABS: HEMATOCRIT 29.6 % (35.0-46.0); MEAN CELL VOLUME 86.4 FL (80.0-100.0); MEAN CORPUSCULAR HEMOGLOBIN 27.8 PG (27.0-34.0); MEAN CORPUSCULAR HGB CONC 32.2 % (32.0-36.0); PLATELET COUNT 230 TH/MM3 (150-450); RED BLOOD COUNT 3.43 MIL/MM3 (4.00-5.30); RED CELL DISTRIBUTION WIDTH 19.1 % (11.6-17.2); REVIEW FLAG FINAL; WHITE BLOOD COUNT 6.6 TH/MM3 (4.0-11.0)
[2016-09-21 07:14] LABS: APTT (PATIENT) 65.4 SEC (24.3-30.1)
[2016-09-21 07:50] LABS: BICARBONATE 23.5 MEQ/L (21.0-32.0); MAGNESIUM 2.7 MG/DL (1.5-2.5); POTASSIUM 4.8 MEQ/L (3.5-5.1)
[2016-09-21] MEDS: SODIUM CHLOR 0.9% 1000 ML INJ 1,000 ML IV PRN (08:37)
[2016-09-21] MEDS: HEPARIN SODIUM - IV 10,000 UNITS/10 ML VIAL PRN (08:38)
[2016-09-21] MEDS: GENTAMICIN SULFATE (DIALYSIS USE ONLY) 20 MG/2 ML VIAL IV PRN (08:38)
[2016-09-21] MEDS: ALBUMIN HUMAN 25% 25 GM/100 ML BAGP IV PRN (08:50)
[2016-09-21] MEDS: LACTULOSE SYRUP 20 GM/30 ML CUP PO SCH (09:00)
[2016-09-21] MEDS: POLYETHYLENE GLYCOL 17 GM PKG PO SCH (09:00)
[2016-09-21] MEDS: BENEPROTEIN POWDER 1 PACK G-TUBE SCH ×3 (09:00→17:38)
[2016-09-21] MEDS: SENNOSIDES SYRUP 8.8 MG/5 ML CUP PO SCH ×2 (09:00→20:18)
[2016-09-21] MEDS: CALCIUM ACETATE 667 MG CAP PO SCH ×3 (09:37→17:38)
[2016-09-21] MEDS: BUMETANIDE INJ 1 MG/4 ML VIAL IV PUSH SCH (09:37)
[2016-09-21] MEDS: DOCUSATE SODIUM 100 MG/10 ML UDC PO SCH ×2 (09:37→20:18)
[2016-09-21] MEDS: SODIUM CHLORIDE 0.9% FLUSH 10 ML FLUSH IVF PRN ×2 (09:38)
[2016-09-21] MEDS: SODIUM CHLORIDE 0.9% FLUSH 10 ML FLUSH IVF SCH (09:38)
[2016-09-21] MEDS: ARTIFICIAL TEARS OPTH SOLN 15 ML BTL EACH EYE SCH ×3 (09:38→17:39)
[2016-09-21] MEDS: SODIUM CHLORIDE 0.9% FLUSH 10 ML FLUSH IV FLUSH SCH ×2 (09:38→20:19)
[2016-09-21] MEDS: FAMOTIDINE 20 MG/2 ML VIAL IV PUSH SCH ×2 (09:51→22:11)
[2016-09-21] MEDS: INSULIN NovoLIN REGULAR SUPPLEMENTAL SCALE SQ SCH ×3 (09:53→17:46)
--- NOTE | 2016-09-21 10:47 | HHI.CCPN ---
Subjective Remarks/Hospital Course 56-year-old morbidly obese female brought in the emergency department in respiratory distress. She was intubated by ER attending. She has been sick for about a week with symptoms consistent with UTI. She's had fevers and chills. She's been short of breath. She's had fatigue. She has had a cough and chest pain with coughing. The family reports that she's been delirious for the last 3 days. 08/15 Patient is sedated with Diprivan, Versed, Fentanyl and intubated. CTA chest showed no PE multifocal consolidation greatest in RLL. Tmax 100.6 08/16 Patient is sedated with Diprivan and Fentanyl. Afebrile. CXR this morning showed increase consolidation. 08/17 Patient remains sedated and intubated. T:100.4 On PRVC/AC RR 18, Tv 500, IT :1.0 PEEP:10, FIO2 75% 08/18 Remains sedated and intubated. Afebrile. CXR this morning unchanged bibasilar infiltrates and effusions. 08/19 Patient was placed on rotoprone bed last night for proning sedated with Diprivan, Versed and Fentnayl in addition she is on Nimbex. On PRVC/AC RR 20, TV 400, IT:1.1, PEEP:14 and FIO2 80%. Afebrile. 08/20 Patient remains sedated and intubated. Remains on PRVC/AC mode with improvements in her oxygenation on FIO2 50% from 80% yesterday and PEEP:12. 08/21 Patient remains sedated and intubated. On PRVC/AC mode with RR 20, TV 400, IT:1.1, PEEP: 12 and FIO2 50%. Afebrile. 08/22 No acute events overnight. Remains sedated, intubated and on Nimbex.. T: 99.8. On PRVC mode with PEP: 12, FIO2 50%. CXR from yesterday showed better aeration, RLL infiltrate unchanged. 08/23 Chest x-ray worsening. Methylprednisolone taper to twice a day by pulmonary. The patient's FiO2 was found to be 100% this a.m., will continue to wean. 08/24: 1 desat episode yesterday when supine. still remains prone now. no vasopressors. sedated and paralyzed. 08/25: flolan added yesterday. fio2 down to 60%. remained supine all night. still on neuromuscular blockade. net -500cc/24h. 08/26: good diuresis. remained supine. fio2 70%. weaning flolan. remains with significant respiratory support and high peep despite 6L diuresis overnight. Cr still stable. 08/27: continues with good diuresis. net negative 3L/24h. fio2 down to 55%. flolan off. still high peep. not ready for SBT. more agitated today. Cr remains stable despite aggressive diuresis. 08/28: diuresis continues. -3.3L/24h. spiked fever overnight with a jump in wbc to 16 this AM. fio2 60%, but her pulmonary improvements have plateaued at this point. still on peep 12. 08/29: net -1.7L/24h. Cr starting to rise. still spiking fevers despite vanc/ cefepime added yesterday. wbc continues to rise. clinically appears infected, although unclear source. peep 10, fio2 60%. will likely need trach. 08/30: net +800cc, but Cr downtrending. appears clinically euvolemic. fever curve downtrending. wbc downtrending. on 40% fio2, peep 8 today. still following commands. 08/31: failed SBT after only 45 minutes yesterday. intubated for > 2 weeks at this point. will attempt to pursue trach/peg today. will continue with pulmonary strengthening. daily SBTs. 09/01 CXR showing increasing bibasilar infiltrate. Failed C Pap trial in 5 minutes due to severe tachypnea. PEG tube today. Family has not decided on trach yet 09/02: Patient febrile to 101.1, CXR increased infiltrate Tmax Tmax 101.1. Currently 9.7 left upper lung and right lower lobe. Pancultured. Cefepime added today and one dose of vancomycin. Continues to fail C Pap trial due to tachypnea and respiratory distress 09/03: Remains hypoxemic on 75% oxygen with new pneumonia. Sputum culture 09/02/16 with GNR. Family agreeable for tracheostomy but patient is not stable at this point for trach 09/04: still on 70% fio2. still hypoxic. pneumonia persists. needs trach, but too unstable at this point. 09/05: remains on 75% fio2. pseudomonas sensitivities came back resistant to carbapenems, intermediate to levaquin. still spiking fevers. not clinically improving. wbc remains elevated. 09/06: Remains on 12 of PEEP and FiO2 75%. Zosyn and tobramycin started yesterday. WBC count trending down today 11.5 from 13.1. Remains heavily sedated for ventilator synchrony. MAXIMUM TEMPERATURE 100.3 09/07: Continues to spike fever. CXR unchanged. WBC count improving. PEEP 14. FiO2 60%. Will start IV Bumex 1mg IV q12 09/09: Tolerating tube feeds at goal. Afebrile. No documented bowel movement. Currently sedated on the ventilator 09/10: Tmax 99.7. Currently 99.4. No bowel movement yesterday. None document since 09/04. Arousable on the ventilator 09/11: Tmax 102.6. Currently 100. Positive BM. Arousable on the ventilator. Tolerating tube feeds. Central line changed yesterday. Plan for bronchoscopy at 1 PM. 09/12: Tmax 100.1. Currently afebrile. Follows commands today. Wiggles toes and give thumbs up appropriately. MRI brain canceled. Tolerating tube feeding with positive BM. Tracheostomy currently planned for . 09/13: Tmax 102. Again on sedation vacation [place] commands by wiggling toes bilaterally and giving thumbs up bilaterally appropriate. Tolerating tube feeding with positive BM. Tracheostomy planned for tomorrow with Dr. Ortega. 09/14: Low grade fever. CXR showing more prominent infiltrate on the right lower lobe and left upper lobe. WBC trending up still in normal range. Patient is on 40% FiO2 but continues to fail CPAP due to tachypnea 09/15: Remains intubated sedated, unable to wean off the vent. Plan for tracheostomy today with Dr. Ortega. Continues to have low grade fever. CXR with persistent bibasilar infiltrates 09/16: Tmax 101.1. Currently 100.7. Awake and alert. Following commands. 09/17: Afebrile. Currently on PSV trial. Tolerating tube feeds. One bowel movement. Noted decreased urine output past 48 hours. Diuretics have been discontinued. This a.m. creatinine currently pending. 09/18: Afebrile. Adequate urine output yesterday but decreased 150 past 8 hours. Tolerating tube feeds. One bowel movement. Not tolerating PSV trials today. 09/19: Tmax 100.5. Urine output picking up. Tolerating tube feeds. No bowel movement 48 hours. Not tolerating PSV trials. 09/20: Diffuse drug morbilliform exanthem noted this a.m. Tmax 100.6. Urine output around 20 cc an hour. Not tolerating PSV trials. Possibly new right pleural effusion noted on chest x-ray. Will need hemodialysis Subjective 09/21: Tmax 100.6 currently 98.7. -4 L with hemodialysis yesterday and today. FiO2 to 60%. Tolerating tube feeds. Positive BM. Still requiring sedation Objective Vital Signs Date Time Temp Pulse Resp B/P Pulse Ox O2 Delivery O2 Flow Rate FiO2 09/21/16 09:16 91 60 09/21/16 06:00 102 09/21/16 04:00 98.7 22 126/59 Intake and Output 09/20/16 09/20/16 09/21/16 08:00 16:00 00:00 Intake Total 663 ml 558 ml 713 ml Output Total 1025 ml 400 ml 4200 ml Balance -362 ml 158 ml -3487 ml Result Diagram: 09/21/16 0614 09/21/16 0614 Other Results Microbiology Date/Time Procedure Status Source Growth 09/20/16 01:50 Stool Occult Blood (BRITTANI) - Final Complete Stool Stool HEMOCCULT NEGATIVE 09/16/16 18:25 Urine Culture - Final Complete Urine Catheterized Urine Maribell [place] Maribell Parapsilosis 09/16/16 15:05 Gram Stain - Final Complete Sputum Endotracheal 09/16/16 15:05 Sputum Culture - Final Complete Sputum Endotracheal NO GROWTH IN 48 HOURS. 09/16/16 11:08 Aerobic Blood Culture - Preliminary Resulted Blood Peripheral NO GROWTH IN 4 DAYS 09/16/16 11:08 Anaerobic Blood Culture - Preliminary Resulted Blood Peripheral NO GROWTH IN 4 DAYS Imaging Last Impressions Chest X-Ray 09/21/16 0600 Signed Impressions: Service Date/Time: August 02:46 - CONCLUSION: No significant change of bilateral pulmonary infiltrates. Kieran Ford MD Catheter Placement X-Ray 09/20/16 0000 Signed Impressions: Service Date/Time: Tuesday, September 20, 2016 11:11 - CONCLUSION: Uncomplicated line placement as above. Beto Barbosa MD Renal Ultrasound 09/17/16 Signed Impressions: Service Date/Time: Saturday, September 17, 2016 13:31 - CONCLUSION: Negative renal sonogram. Taco Davidson MD Upper Extremity Ultrasound 09/14/16 0000 Signed Impressions: Service Date/Time: August 08:32 - CONCLUSION: There is thrombus within the left subclavian and internal jugular veins. Danyel Escalante MD Lower Extremity Ultrasound 09/13/16 0000 Signed Impressions: Service Date/Time: Tuesday, September 13, 2016 22:33 - CONCLUSION: Normal examination. Leonides Mason MD Liver Ultrasound 09/08/16 Signed Impressions: Service Date/Time: Thursday, September 08, 2016 08:45 - CONCLUSION: 1. Cholelithiasis with distended gallbladder. However, there are no associated findings present to diagnose acute cholecystitis. If there is persistent clinical concern for acute cholecystitis could evaluate for cystic duct obstruction with hepatobiliary scintigraphy. 2. Hepatomegaly with very heterogeneous echotexture and steatosis. Dejan Allison MD Gall Bladder Ultrasound 08/29/16 Signed Impressions: Service Date/Time: Monday, August 29, 2016 15:21 - CONCLUSION: 1. Hepatomegaly with heterogeneous echotexture throughout the liver. 2. There is a large echogenic area near the neck of the gallbladder suggestive of a stone, but despite its large size, demonstrates no acoustic shadowing in any of the views. Taco Davidson MD CT Angiography 08/15/16 Signed Impressions: Service Date/Time: Monday, August 15, 2016 02:33 - CONCLUSION: 1. No evidence for pulmonary embolism. 2. Multifocal consolidation greatest in the right lower lobe and associated adenopathy. Terry Estrada MD Objective Remarks GENERAL: 56 yo female, critically ill currently resting in bed in no acute distress SKIN: Warm and dry. Much improved diffuse morbilliform exanthem rash HEAD: Normocephalic. EYES: No scleral icterus. No injection or drainage. NECK: trachea midline. Tracheostomy is currently clean dry and intact with old dried blood packed. Neck is obese. Right subclavian hemodialysis catheters clean dry and intact CARDIOVASCULAR: RRR. S1, S2 no S4 . No murmur RESPIRATORY: Breath sounds equal mahogany but distant, few basilar crackles GASTROINTESTINAL: Abdomen obese, soft, non-tender, hypoactive active bowel sounds MUSCULOSKELETAL: 1+ lower extremity edema Neuro: Currently following commands moving upper and lower extremity spontaneously Positive gag and corneal reflex. A/P Problem List: (1) ARDS (adult respiratory distress syndrome) ICD Code: J80 Status: Acute (2) CHF (congestive heart failure) ICD Code: I50.9 Status: Acute (3) Respiratory failure ICD Code: J96.90 Status: Acute (4) Pneumonia ICD Code: J18.9 Status: Acute Assessment and Plan Neuro/Psych: Acute toxic metabolic encephalopathy Agitated delirium Currently 10 mcg/kg minute propofol and 50 g per minute of fentanyl for sedation/analgesia while tracheostomy/ventilator mode Discontinue fentanyl today secondary to rash Daily sedation vacation Continue Seroquel 50mg po q8h for delirium. As needed morphine the pain Discontinued oxycodone secondary to rash EEG 09/09 moderate to severe encephalopathy Pulm: Acute hypercapnic and hypoxemic respiratory failure ARDS Pneumonia community-acquired, now with HCAP with carbapenem-resistant pseudomonas Probable JOE On PRVC/AC RR 20, TV 600, PEEP 10, IT: 1.1 and FIO2 0.60. Decrease FIO2 as tiki. for goal spo2 > 88% Bronchodilator therapy every 4 hours and as needed ICU vent bundle. Pulm rick followrd- Dr. Beck Gen surgery Dr. Ortega status post percutaneous tracheostomy 09/15 CV: Hypertension Dyslipidemia Elevated troponin - likely strain Monitor HR and BP keep MAP>65mmg Echo 08/14 showed EF 65-70% mild AR/TR Home medications HCTZ 12.5 mill grams daily currently on hold Home medication lovastatin 20 mg by mouth daily switched to Pravachol 20 mg a night. Renal/: Acute kidney injury A.m. creatinine 3 3 yesterday Received crystalloid bolus 2 L normal saline today Bumex discontinued 09/15 and restarted 09/19 Urine eosinophils negative. Renal ultrasound revealed no hydronephrosis 450 cc urine past 24 hours. s/p exchange Miller with funguria Monitor renal function, I/O's Status post dialysis yesterday -4 L and today -4 L. GI: Elevated transaminases Cholelithiasis Monitor LFT's ( trending down), on Protonix 40mg daily for GI prophylaxis US liver: Fatty liver and cholelithiasis. Repeat 09/08 revealed cholelithiasis with no acute signs of cholecystitis. Recommend a HIDA scan if indicated On TF Glucerna 1.5 @ 45ml/hr with 2 packets of been a protein 3 times a day minimal residual. Switch to Nepro's 45 cc an hour with increased phosphorus s/p PEG placement 09/01/[address] Ritter Pepcid 10 mg IV twice a day for GI prophylaxis Colace/Senokot for bowel regimen. Lactulose daily added ID: Pseudomonas pneumonia Funguria Pertinent cultures blood and sputum cx 08/15- NG strep pneumonia and Legionella urinary Ag negative Blood cultures 08/28: NGTD C Diff negative 08/28. Lines changed 08/28. Sputum 08/30 - Pseudomonas Sputum 09/02 PSAE, resistant to carbapenem, intermediate to Levaquin. 09/07 - urine -Maribell Guilliermondii 09/07 - blood cultures 2 - no growth 09/09 - urine -strep veridians, Maribell parapsilosis 09/10 - blood cultures 2 -no growth 09/11 - broch washings -no growth to date 09/12 - urine -Maribell glabrata and parapsilosis 09/16 - blood cultures 2 - pending 09/16 - sputum -no growth 09/16 - urine -Maribell glabrata and parapsilosis - Dcd cefepime/Levaquin on 09/05. started on Zosyn 4.5gm iv q6h and tobramycin 7 mg/kg/day. 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 Resume today Endo: Diabetes mellitus Hypothyroidism on SSI (medium scale) for glycemic control On Synthroid 200mcg daily. TSH 1.37 FEN: Hyperkalemia - resolved GI prophylaxis- Prevacid per tube. DVT prophylaxis Heparin SQ - resume heparin drip today, SCDs Derm: Exanthem - morbilliform - resolved Discontinue fentanyl and oxycodone Pepcid 10 twice a day/Benadryl 25 every 6 and Solu-Medrol 40 every 8 Lines: Peripheral IV. - Miller - PEG 09/01/16 - Trach 09/15 - Right subclavian US catheter placed 09/20 by IR Critical Care: The total care time was 35 minutes. Time to perform other separately billable procedures was not included in the critical care time. Loree Marinelli, daughter (HCP): [phone] Rony Marinelli, significant other: [phone] Problem Qualifiers (1) CHF (congestive heart failure): Qualified Code: I50.9 - Acute congestive heart failure, unspecified congestive heart failure type (2) Respiratory failure: Qualified Code: J96.02 - Acute respiratory failure with hypercapnia (3) Pneumonia: Qualified Code: J18.9 - Pneumonia of both lungs due to infectious organism, unspecified part of lung Fadi Villa MD Sep 21, 2016 10:47 Fadi Villa MD Sep 21, 2016 10:47
--- NOTE | 2016-09-21 12:10 | HHI.NPPN ---
Subjective General Problems: Edema, Hypotension, Obesity Renal Failure: Acute Interval History She developed reaction (rash) to fentanyl. On propofol for sedations. On 60% Fi02, PEEP 10. Had dialysis again today. (Genny Lowery) Review of Systems General General Remarks unable to evaluate (Genny Lowery) Objective Data Data 09/20/16 09/21/16 19:00 07:00 Intake Total 558 ml 1467 ml Output Total 4400 ml 335 ml Balance -3842 ml 1132 ml Intake Oral 0 ml IV Total 274 ml 630 ml Tube Feeding 284 ml 557 ml Tube Irrigant 280 ml Output Urine Total 200 ml 335 ml Stool Total 200 ml Hemodialysis 4000 ml # Bowel Movements 0 Vital Signs Date Time Temp Pulse Resp B/P Pulse Ox O2 Delivery O2 Flow Rate FiO2 09/21/16 11:17 93 60 09/21/16 09:16 91 60 09/21/16 06:00 102 09/21/16 04:11 89 50 09/21/16 04:00 98.7 86 22 126/59 89 09/21/16 04:00 50 09/21/16 04:00 85 09/21/16 02:00 86 09/21/16 00:00 87 09/21/16 00:00 50 09/21/16 00:00 99.5 87 23 107/55 91 09/20/16 22:52 92 50 09/20/16 22:00 99 09/20/16 20:00 97 09/20/16 20:00 99.5 97 23 120/59 93 09/20/16 20:00 50 09/20/16 19:28 93 50 09/20/16 18:00 96 09/20/16 16:39 91 50 09/20/16 16:00 86 09/20/16 16:00 100.2 97 26 88/50 95 09/20/16 16:00 50 09/20/16 14:00 93 09/20/16 12:53 95 40 09/20/16 12:00 40 09/20/16 12:00 99.9 104 21 101/52 93 09/20/16 12:00 104 (Genny Lowery) -: 09/21/16 0614 09/21/16 0614 Imaging Last Impressions Chest X-Ray 09/21/16 0600 Signed Impressions: Service Date/Time: August 02:46 - CONCLUSION: No significant change of bilateral pulmonary infiltrates. Kieran Ford MD Catheter Placement X-Ray 09/20/16 0000 Signed Impressions: Service Date/Time: Tuesday, September 20, 2016 11:11 - CONCLUSION: Uncomplicated line placement as above. Beto Barbosa MD Renal Ultrasound 09/17/16 0000 Signed Impressions: Service Date/Time: Saturday, September 17, 2016 13:31 - CONCLUSION: Negative renal sonogram. Taco Davidson MD Upper Extremity Ultrasound 09/14/16 0000 Signed Impressions: Service Date/Time: August 08:32 - CONCLUSION: There is thrombus within the left subclavian and internal jugular veins. Danyel Escalante MD Lower Extremity Ultrasound 09/13/16 0000 Signed Impressions: Service Date/Time: Tuesday, September 13, 2016 22:33 - CONCLUSION: Normal examination. Leonides Mason MD Liver Ultrasound 09/08/16 0000 Signed Impressions: Service Date/Time: Thursday, September 08, 2016 08:45 - CONCLUSION: 1. Cholelithiasis with distended gallbladder. However, there are no associated findings present to diagnose acute cholecystitis. If there is persistent clinical concern for acute cholecystitis could evaluate for cystic duct obstruction with hepatobiliary scintigraphy. 2. Hepatomegaly with very heterogeneous echotexture and steatosis. Dejan Allison MD Gall Bladder Ultrasound 08/29/16 0000 Signed Impressions: Service Date/Time: Monday, August 29, 2016 15:21 - CONCLUSION: 1. Hepatomegaly with heterogeneous echotexture throughout the liver. 2. There is a large echogenic area near the neck of the gallbladder suggestive of a stone, but despite its large size, demonstrates no acoustic shadowing in any of the views. Taco Davidson MD CT Angiography 08/15/16 0000 Signed Impressions: Service Date/Time: Monday, August 15, 2016 02:33 - CONCLUSION: 1. No evidence for pulmonary embolism. 2. Multifocal consolidation greatest in the right lower lobe and associated adenopathy. Terry Estrada MD Tubes & Lines: Miller Tubes & Lines Comment trach, PEG Drip Comment heparin, propofol, fentanyl (Genny Lowery LOG PEELER) Physical Exam General Appearance: Well Developed, No Acute Distress, Comfortable, Obese (Genny Lowery LOG PEELER) Throat Throat Exam: Oral Mucosa Braman & Moist (Genny Lowery LOG PEELER) Neck Neck Exam: Neck Supple Neck Remarks trach (Genny Lowery LOG PEELER) Pulmonary Resp Remarks vented lung sounds (Genny Lowery) Cardiology CV Exam: Regular, Normal Sinus Rhythm (Genny Lowery) Gastrointestinal/Abdomen GI Exam: Soft, Bowel Sounds Present GI Remarks morbidly obese, + PEG infusing (Genny Lowery) Musculoskeletal MS Exam: Joints Intact, Good Strength, Unable to Ambulate (Genny Lowery LOG PEELER) Integumentary Skin Exam: Warm, Dry (Genny Lowery) Extremeties Extremities Exam: Pedal Pulses Palpable, Moderate Edema, Pitting Edema ( Genny Lowery) Neurologic Neuro Exam: Unresponsive, Sedated (Genny Lowery) VTE Prophylaxis Device: SCDs (Genny Lowery) Assessment/Plan Assessment Summary: MIKE/Acute Renal Failure, Acute Tubular Necrosis, Hypotension Problem List: (1) Acute kidney injury Plan: In a pt with normal renal function at baseline MIKE: ATN from sepsis syndrome and diminished renal perfusion ; also aminoglycoside induced nephrotoxicity likely also contributing; possibly AIN HD initiated 09/20 (4L UF) dialyzed again today with another 4L UF reevaluate the pt tomorrow, may convert to TTS dialysis await renal recovery currently oliguric continue phoslo for hyperphosphatemia avoid IVF, nephrotoxins maintain adequate MAP, pressors if needed daily renal panel (2) ARDS (adult respiratory distress syndrome) Plan: s/p trach placement continue Ventilator support: 20/600/60/10 Change Control Specialist managing. (3) Pneumonia Plan: Pseudomonas in the sputum. ID following. monitor the pt clinically, she is currently off antibiotics afebrile today (4) Hypothyroidism Plan: on synthroid (5) Morbid obesity (Genny Lowery) Problem List: (1) Acute kidney injury Plan: In a pt with normal renal function at baseline MIKE: ATN from sepsis syndrome and diminished renal perfusion ; also aminoglycoside induced nephrotoxicity likely also contributing; possibly AIN HD initiated 09/20 (4L UF) dialyzed again today with another 4L UF reevaluate the pt tomorrow, may convert to TTS dialysis await renal recovery currently oliguric continue phoslo for hyperphosphatemia avoid IVF, nephrotoxins maintain adequate MAP, pressors if needed daily renal panel (2) ARDS (adult respiratory distress syndrome) Plan: s/p trach placement continue Ventilator support: 20/600/60/10 Change Control Specialist managing. (3) Pneumonia Plan: Pseudomonas in the sputum. ID following. monitor the pt clinically, she is currently off antibiotics afebrile today (4) Hypothyroidism Plan: on synthroid (5) Morbid obesity Plan patient was seen and examined. Dialyzed today. Continue dialysis TTS. (Anshu Tan MD) Problem Qualifiers (1) Pneumonia: Qualified Code: J18.9 - Pneumonia of both lungs due to infectious organism, unspecified part of lung Genny Lowery Sep 21, 2016 12:10 Anshu Tan MD Sep 22, 2016 13:21
--- NOTE | 2016-09-21 12:56 | HHI.PR ---
Subjective Remarks Sedated on the vent .FIO2 at 60 %. PEEP is at 10 CM. Had Trach and PEG. CXR shows bilat Infiltrates.Had dialysis. Objective Vital Signs Date Time Temp Pulse Resp B/P Pulse Ox O2 Delivery O2 Flow Rate FiO2 09/21/16 11:17 93 60 09/21/16 09:16 91 60 09/21/16 06:00 102 09/21/16 04:11 89 50 09/21/16 04:00 98.7 86 22 126/59 89 09/21/16 04:00 50 09/21/16 04:00 85 09/21/16 02:00 86 09/21/16 00:00 87 09/21/16 00:00 50 09/21/16 00:00 99.5 87 23 107/55 91 09/20/16 22:52 92 50 09/20/16 22:00 99 09/20/16 20:00 97 09/20/16 20:00 99.5 97 23 120/59 93 09/20/16 20:00 50 09/20/16 19:28 93 50 09/20/16 18:00 96 09/20/16 16:39 91 50 09/20/16 16:00 86 09/20/16 16:00 100.2 97 26 88/50 95 09/20/16 16:00 50 09/20/16 14:00 93 I/O 09/20/16 09/20/16 09/20/16 09/21/16 09/21/16 09/21/16 07:00 15:00 23:00 07:00 15:00 23:00 Intake Total 663 ml 558 ml 713 ml 754 ml Output Total 1025 ml 400 ml 4200 ml 135 ml 4000 ml Balance -362 ml 158 ml -3487 ml 619 ml -4000 ml Intake Oral 0 ml 0 ml IV Total 323 ml 274 ml 300 ml 330 ml Tube Feeding 340 ml 284 ml 293 ml 264 ml Tube Irrigant 120 ml 160 ml Output Urine Total 175 ml 200 ml 200 ml 135 ml Stool Total 850 ml 200 ml Hemodialysis 4000 ml 4000 ml # Bowel Movements 0 Result Diagram: 09/21/1661309/21/16613 Objective Remarks This is an obese middle-aged white female who is sedated. HEENT: Head normocephalic. Pupils react. Neck: No bruits, no thyroid enlargement, no lymphadenopathy. Chest: Decreased breath sounds.Occ wheeze heard.Few crackles. Heart: Heart sounds were regular. S1-S2 no murmur, no S3. Abdomen: Soft, benign. No masses, or tenderness. Bowel sounds are active. Extremities: No edema ,but has a Diffuse excoriating rash . Neuro : She is sedated. Assessment and Plan Assessment and Plan IMPRESSION 1. Acute hypercapnic respiratory failure. 2. Pulmonary edema. 3. Drug rash 4. Obstructive sleep apnea syndrome 5. Hypertension 6. Hypothyroidism. 7. MIKE Plan : 1. Cont weaning FIO2 and PEEP to keep sat >92 2. Trach toilet and suctioning 3. Nebs qid , duoneb. 4. Chest X ray in am. 5. CPAP trial daily. 6. CBC,BMP. 7. Tube feeds at 50 CC 8. Diuretic per renal. Abimael Beck MD Sep 21, 2016 12:56
[2016-09-21] MEDS: MORPHINE SULFATE 4 MG/ML INJ IV PRN ×2 (17:46→20:20)
[2016-09-21] MEDS: oxyCODONE HCL ORAL CONC 20 MG/ML SYRINGE G-TUBE SCH (20:19)
[2016-09-21] MEDS: PRAVASTATIN SOD 20 MG TAB PO SCH (20:20)
[2016-09-22] VITALS (20 sets, daily range): BP systolic 129–149; BP diastolic 63–79; PULSE 72–112; RESP 20–28; TEMP 98–99.1; O2SAT 92–98
[2016-09-22] MEDS: PROPOFOL 1000 MG/100 ML INJ 100 ML IV SCH ×6 (00:44→22:33)
[2016-09-22] MEDS: INSULIN NovoLIN REGULAR SUPPLEMENTAL SCALE SQ SCH ×4 (00:44→18:19)
[2016-09-22] MEDS: oxyCODONE HCL ORAL CONC 20 MG/ML SYRINGE G-TUBE SCH ×6 (00:44→20:24)
[2016-09-22] MEDS: CHLORHEXIDINE GLUCONATE 2 % 1 PACK (2 CLOTHS) TOP SCH (04:00)
[2016-09-22] MEDS: RESP: ALBUTEROL 2.5 MG/IPRATROPIUM 0.5 MG NEB (SCH) INH ×4 (04:33→20:36)
[2016-09-22 04:36] LABS: AUTOMATED NEUTROPHIL # 7.1 TH/MM3 (1.8-7.7); BASOPHIL # 0.1 TH/MM3 (0-0.2); BASOPHIL % 0.8 % (0.0-2.0); EOSINOPHIL # 0.1 TH/MM3 (0-0.4); EOSINOPHIL % 0.6 % (0.0-4.0); HEMATOCRIT 27.6 % (35.0-46.0); LYMPH % 10.3 % (9.0-44.0); MEAN CELL VOLUME 86.4 FL (80.0-100.0); MEAN CORPUSCULAR HEMOGLOBIN 28.3 PG (27.0-34.0); MEAN CORPUSCULAR HGB CONC 32.8 % (32.0-36.0); MONO % 11.9 % (0.0-8.0); NEUT % 76.4 % (16.0-70.0); PLATELET COUNT 274 TH/MM3 (150-450); RED CELL DISTRIBUTION WIDTH 19.9 % (11.6-17.2); WHITE BLOOD COUNT 9.2 TH/MM3 (4.0-11.0)
[2016-09-22 04:42] LABS: APTT (PATIENT) 53.9 SEC (24.3-30.1)
[2016-09-22 04:48] LABS: HEMO FLAGS AUTO DIFF
[2016-09-22 04:55] LABS: BICARBONATE 25.5 MEQ/L (21.0-32.0)
[2016-09-22] MEDS: QUEtiapine FUMARATE 25 MG TAB PO SCH ×3 (05:47→22:33)
[2016-09-22] MEDS: methylPREDNISolone SOD SUCC 40 MG/1 ML VIAL IV PUSH SCH ×2 (05:47→12:44)
[2016-09-22] MEDS: LEVOTHYROXINE SODIUM 200 MCG TAB PO SCH (05:47)
[2016-09-22] MEDS: METOCLOPRAMIDE HCL 10 MG/2 ML VIAL IV PUSH SCH ×3 (05:47→22:33)
[2016-09-22] MEDS: HEPARIN-D5W 25,000 U/250 ML 250 ML IV SCH ×2 (05:48→16:14)
[2016-09-22 05:51] LABS: SCAN/DIFF AUTO DIFF CONFIRMED
[2016-09-22] MEDS: MORPHINE SULFATE 4 MG/ML INJ IV PRN ×2 (06:42→09:54)
[2016-09-22] MEDS: SODIUM CHLORIDE 0.9% FLUSH 10 ML FLUSH IVF SCH (09:00)
[2016-09-22] MEDS: BENEPROTEIN POWDER 1 PACK G-TUBE SCH ×3 (09:00→18:00)
[2016-09-22] MEDS: POLYETHYLENE GLYCOL 17 GM PKG PO SCH (09:49)
[2016-09-22] MEDS: DOCUSATE SODIUM 100 MG/10 ML UDC PO SCH ×2 (09:50→20:24)
[2016-09-22] MEDS: CALCIUM ACETATE 667 MG CAP PO SCH ×3 (09:50→18:17)
[2016-09-22] MEDS: SENNOSIDES SYRUP 8.8 MG/5 ML CUP PO SCH ×2 (09:50→20:24)
[2016-09-22] MEDS: SODIUM CHLORIDE 0.9% FLUSH 10 ML FLUSH IV FLUSH SCH ×2 (09:50→20:24)
[2016-09-22] MEDS: FAMOTIDINE 20 MG/2 ML VIAL IV PUSH SCH ×2 (09:54→22:33)
--- NOTE | 2016-09-22 10:02 | HHI.NPPN ---
Subjective General Problems: Edema, Hypotension, Obesity Renal Failure: Acute Interval History Dialyzed yesterday. Oliguric. Sedated on vent. (Genny Lowery) Review of Systems General General Remarks unable to evaluate (Genny Lowery) Objective Data Data 09/21/16 09/22/16 19:00 07:00 Intake Total 699 ml 1592 ml Output Total 4075.0 ml 110 ml Balance -3376.0 ml 1482 ml IV Total 316 ml 703 ml Tube Feeding 263 ml 649 ml Tube Irrigant 120 ml 240 ml Output Urine Total 75 ml 110 ml Tube Feeding Residual Discard 0 ml Hemodialysis 4000 ml # Bowel Movements 0 0 Vital Signs Date Time Temp Pulse Resp B/P Pulse Ox O2 Delivery O2 Flow Rate FiO2 09/22/16 09:25 94 50 09/22/16 06:00 97 09/22/16 04:33 96 50 09/22/16 04:00 99.1 80 20 138/72 96 09/22/16 04:00 60 09/22/16 04:00 80 09/22/16 02:00 92 09/22/16 01:15 95 60 09/22/16 00:00 60 09/22/16 00:00 99.1 89 23 129/70 95 09/22/16 00:00 89 09/21/16 22:00 85 09/21/16 20:00 60 09/21/16 20:00 98.8 96 23 123/59 91 09/21/16 20:00 96 09/21/16 19:38 98 60 09/21/16 18:00 94 09/21/16 16:16 92 60 09/21/16 16:00 60 09/21/16 16:00 99.3 81 20 122/58 92 09/21/16 16:00 81 09/21/16 14:00 85 09/21/16 12:00 81 09/21/16 12:00 98.4 81 20 116/57 93 09/21/16 12:00 60 09/21/16 11:17 93 60 09/21/16 10:00 105 (Genny Lowery) -: 09/22/16 0347 09/22/16 0347 Tubes & Lines: Miller Tubes & Lines Comment trach, PEG Drip Comment heparin, propofol, fentanyl (Genny Lowery REFUELING RAMP ATTENDANT) Physical Exam General Appearance: Well Developed, No Acute Distress, Comfortable, Obese (Genny Lowery REFUELING RAMP ATTENDANT) Throat Throat Exam: Oral Mucosa Dupo & Moist (Genny Lowery REFUELING RAMP ATTENDANT) Neck Neck Exam: Neck Supple Neck Remarks trach (Genny Lowery REFUELING RAMP ATTENDANT) Pulmonary Resp Remarks vented lung sounds (Genny LoweryP) Cardiology CV Exam: Regular, Normal Sinus Rhythm (Genny Lowery REFUELING RAMP ATTENDANT) Gastrointestinal/Abdomen GI Exam: Soft, Bowel Sounds Present GI Remarks morbidly obese, + PEG infusing (Genny Lowery REFUELING RAMP ATTENDANT) Musculoskeletal MS Exam: Joints Intact, Good Strength, Unable to Ambulate (Genny LoweryP) Integumentary Skin Exam: Warm, Dry (Genny Lowery) Extremeties Extremities Exam: Pedal Pulses Palpable, Moderate Edema, Pitting Edema ( Genny Lowery) Neurologic Neuro Exam: Unresponsive, Sedated (Genny Lowery) VTE Prophylaxis Device: SCDs (Genny Lowery) Assessment/Plan Assessment Summary: MIKE/Acute Renal Failure, Acute Tubular Necrosis, Hypotension Problem List: (1) Acute kidney injury Plan: In a pt with normal renal function at baseline MIKE: ATN from sepsis syndrome and diminished renal perfusion ; also aminoglycoside induced nephrotoxicity likely also contributing; possibly AIN HD initiated 09/20 (4L UF) and 09/21 hold HD today, convert to TTS await renal recovery, she is currently oliguric Bumex has been stopped continue phoslo for hyperphosphatemia avoid IVF, nephrotoxins maintain adequate MAP, pressors if needed although not requiring daily renal panel (2) ARDS (adult respiratory distress syndrome) Plan: s/p trach placement continue Ventilator support: 20/600/50/10 Carder Blankets managing. (3) Pneumonia Plan: Pseudomonas in the sputum. ID following. monitor the pt clinically, she is currently off antibiotics afebrile today (4) Hypothyroidism Plan: on synthroid (5) Morbid obesity (Genny Lowery) Plan patient was seen and examined. Agree with above assessment and plan. Dialysis tomorrow. (Anshu Tan MD) Problem Qualifiers (1) Pneumonia: Qualified Code: J18.9 - Pneumonia of both lungs due to infectious organism, unspecified part of lung Genny LoweryP Sep 22, 2016 10:02 Anshu Tan MD Sep 22, 2016 13:44
[2016-09-22] MEDS: ARTIFICIAL TEARS OPTH SOLN 15 ML BTL EACH EYE SCH ×3 (10:05→18:00)
--- NOTE | 2016-09-22 12:48 | HHI.PR ---
Subjective Remarks Awake and on the vent .FIO2 at 50 %. On CPAP now. .Had dialysis. Objective Vital Signs Date Time Temp Pulse Resp B/P Pulse Ox O2 Delivery O2 Flow Rate FiO2 09/22/16 12:05 93 50 09/22/16 10:15 50 09/22/16 10:00 107 09/22/16 09:25 94 50 09/22/16 08:00 78 09/22/16 08:00 98.4 78 21 139/69 94 09/22/16 08:00 50 09/22/16 06:00 97 09/22/16 04:33 96 50 09/22/16 04:00 99.1 80 20 138/72 96 09/22/16 04:00 60 09/22/16 04:00 80 09/22/16 02:00 92 09/22/16 01:15 95 60 09/22/16 00:00 60 09/22/16 00:00 99.1 89 23 129/70 95 09/22/16 00:00 89 09/21/16 22:00 85 09/21/16 20:00 60 09/21/16 20:00 98.8 96 23 123/59 91 09/21/16 20:00 96 09/21/16 19:38 98 60 09/21/16 18:00 94 09/21/16 16:16 92 60 09/21/16 16:00 60 09/21/16 16:00 99.3 81 20 122/58 92 09/21/16 16:00 81 09/21/16 14:00 85 I/O 09/21/16 09/21/16 09/21/16 09/22/16 09/22/16 09/22/16 07:00 15:00 23:00 07:00 15:00 23:00 Intake Total 754 ml 699 ml 817 ml 775 ml Output Total 135 ml 4075.0 ml 60 ml 50 ml 0 ml Balance 619 ml -3376.0 ml 757 ml 725 ml 0 ml IV Total 330 ml 316 ml 370 ml 333 ml Tube Feeding 264 ml 263 ml 327 ml 322 ml Tube Irrigant 160 ml 120 ml 120 ml 120 ml Output Urine Total 135 ml 75 ml 60 ml 50 ml Tube Feeding Residual Discard 0 ml 0 ml 0 ml Hemodialysis 4000 ml # Bowel Movements 0 0 0 Result Diagram: 09/22/16 0347 09/22/16 0347 Objective Remarks This is an obese middle-aged white female who is sedated. HEENT: Head normocephalic. Pupils react. Neck: No bruits, no thyroid enlargement, no lymphadenopathy. Chest: Decreased breath sounds.Occ wheeze heard.Few basal crackles. Heart: Heart sounds were regular. S1-S2 no murmur, no S3. Abdomen: Soft, benign. No masses, or tenderness. Bowel sounds are active. Extremities: No edema ,but has a Diffuse healing rash . Neuro : Awake . Assessment and Plan Assessment and Plan IMPRESSION 1. Acute hypercapnic respiratory failure. 2. Pulmonary edema. 3. Drug rash 4. Obstructive sleep apnea syndrome 5. Hypertension 6. Hypothyroidism. 7. MIKE Plan : 1. Cont weaning vent with PSV /CPAP for 6 hrs. 2. Trach toilet and suctioning 3. Nebs qid , duoneb. 4. A/C rate 15, PEEP +8 after CPAP. 5. Reduce sedation 6. CBC,BMP. 7. Tube feeds at 50 CC 8. Diuretic per renal. Abimael Beck MD Sep 22, 2016 12:48
[2016-09-22] MEDS: PRAVASTATIN SOD 20 MG TAB PO SCH (20:24)
--- NOTE | 2016-09-22 21:09 | HHI.CCPN ---
Subjective Remarks/Hospital Course 56-year-old morbidly obese female brought in the emergency department in respiratory distress. She was intubated by ER attending. She has been sick for about a week with symptoms consistent with UTI. She's had fevers and chills. She's been short of breath. She's had fatigue. She has had a cough and chest pain with coughing. The family reports that she's been delirious for the last 3 days. 08/15 Patient is sedated with Diprivan, Versed, Fentanyl and intubated. CTA chest showed no PE multifocal consolidation greatest in RLL. Tmax 100.6 08/16 Patient is sedated with Diprivan and Fentanyl. Afebrile. CXR this morning showed increase consolidation. 08/17 Patient remains sedated and intubated. T:100.4 On PRVC/AC RR 18, Tv 500, IT :1.0 PEEP:10, FIO2 75% 08/18 Remains sedated and intubated. Afebrile. CXR this morning unchanged bibasilar infiltrates and effusions. 08/19 Patient was placed on rotoprone bed last night for proning sedated with Diprivan, Versed and Fentnayl in addition she is on Nimbex. On PRVC/AC RR 20, TV 400, IT:1.1, PEEP:14 and FIO2 80%. Afebrile. 08/20 Patient remains sedated and intubated. Remains on PRVC/AC mode with improvements in her oxygenation on FIO2 50% from 80% yesterday and PEEP:12. 08/21 Patient remains sedated and intubated. On PRVC/AC mode with RR 20, TV 400, IT:1.1, PEEP: 12 and FIO2 50%. Afebrile. 08/22 No acute events overnight. Remains sedated, intubated and on Nimbex.. T: 99.8. On PRVC mode with PEP: 12, FIO2 50%. CXR from yesterday showed better aeration, RLL infiltrate unchanged. 08/23 Chest x-ray worsening. Methylprednisolone taper to twice a day by pulmonary. The patient's FiO2 was found to be 100% this a.m., will continue to wean. 08/24: 1 desat episode yesterday when supine. still remains prone now. no vasopressors. sedated and paralyzed. 08/25: flolan added yesterday. fio2 down to 60%. remained supine all night. still on neuromuscular blockade. net -500cc/24h. 08/26: good diuresis. remained supine. fio2 70%. weaning flolan. remains with significant respiratory support and high peep despite 6L diuresis overnight. Cr still stable. 08/27: continues with good diuresis. net negative 3L/24h. fio2 down to 55%. flolan off. still high peep. not ready for SBT. more agitated today. Cr remains stable despite aggressive diuresis. 08/28: diuresis continues. -3.3L/24h. spiked fever overnight with a jump in wbc to 16 this AM. fio2 60%, but her pulmonary improvements have plateaued at this point. still on peep 12. 08/29: net -1.7L/24h. Cr starting to rise. still spiking fevers despite vanc/ cefepime added yesterday. wbc continues to rise. clinically appears infected, although unclear source. peep 10, fio2 60%. will likely need trach. 08/30: net +800cc, but Cr downtrending. appears clinically euvolemic. fever curve downtrending. wbc downtrending. on 40% fio2, peep 8 today. still following commands. 08/31: failed SBT after only 45 minutes yesterday. intubated for > 2 weeks at this point. will attempt to pursue trach/peg today. will continue with pulmonary strengthening. daily SBTs. 09/01 CXR showing increasing bibasilar infiltrate. Failed C Pap trial in 5 minutes due to severe tachypnea. PEG tube today. Family has not decided on trach yet 09/02: Patient febrile to 101.1, CXR increased infiltrate Tmax Tmax 101.1. Currently 9.7 left upper lung and right lower lobe. Pancultured. Cefepime added today and one dose of vancomycin. Continues to fail C Pap trial due to tachypnea and respiratory distress 09/03: Remains hypoxemic on 75% oxygen with new pneumonia. Sputum culture 09/02/16 with GNR. Family agreeable for tracheostomy but patient is not stable at this point for trach 09/04: still on 70% fio2. still hypoxic. pneumonia persists. needs trach, but too unstable at this point. 09/05: remains on 75% fio2. pseudomonas sensitivities came back resistant to carbapenems, intermediate to levaquin. still spiking fevers. not clinically improving. wbc remains elevated. 09/06: Remains on 12 of PEEP and FiO2 75%. Zosyn and tobramycin started yesterday. WBC count trending down today 11.5 from 13.1. Remains heavily sedated for ventilator synchrony. MAXIMUM TEMPERATURE 100.3 09/07: Continues to spike fever. CXR unchanged. WBC count improving. PEEP 14. FiO2 60%. Will start IV Bumex 1mg IV q12 09/09: Tolerating tube feeds at goal. Afebrile. No documented bowel movement. Currently sedated on the ventilator 09/10: Tmax 99.7. Currently 99.4. No bowel movement yesterday. None document since 09/04. Arousable on the ventilator 09/11: Tmax 102.6. Currently 100. Positive BM. Arousable on the ventilator. Tolerating tube feeds. Central line changed yesterday. Plan for bronchoscopy at 1 PM. 09/12: Tmax 100.1. Currently afebrile. Follows commands today. Wiggles toes and give thumbs up appropriately. MRI brain canceled. Tolerating tube feeding with positive BM. Tracheostomy currently planned for . 09/13: Tmax 102. Again on sedation vacation falls commands by wiggling toes bilaterally and giving thumbs up bilaterally appropriate. Tolerating tube feeding with positive BM. Tracheostomy planned for tomorrow with Dr. Ortega. 09/14: Low grade fever. CXR showing more prominent infiltrate on the right lower lobe and left upper lobe. WBC trending up still in normal range. Patient is on 40% FiO2 but continues to fail CPAP due to tachypnea 09/15: Remains intubated sedated, unable to wean off the vent. Plan for tracheostomy today with Dr. Ortega. Continues to have low grade fever. CXR with persistent bibasilar infiltrates 09/16: Tmax 101.1. Currently 100.7. Awake and alert. Following commands. 09/17: Afebrile. Currently on PSV trial. Tolerating tube feeds. One bowel movement. Noted decreased urine output past 48 hours. Diuretics have been discontinued. This a.m. creatinine currently pending. 09/18: Afebrile. Adequate urine output yesterday but decreased 150 past 8 hours. Tolerating tube feeds. One bowel movement. Not tolerating PSV trials today. 09/19: Tmax 100.5. Urine output picking up. Tolerating tube feeds. No bowel movement 48 hours. Not tolerating PSV trials. 09/20: Diffuse drug morbilliform exanthem noted this a.m. Tmax 100.6. Urine output around 20 cc an hour. Not tolerating PSV trials. Possibly new right pleural effusion noted on chest x-ray. Will need hemodialysis 09/21: Tmax 100.6 currently 98.7. -4 L with hemodialysis yesterday and today. FiO2 to 60%. Tolerating tube feeds. Positive BM. Still requiring sedation Subjective 09/22: Afebrile. Tolerating tube feeds. Positive BM. 30 g per kilogram per minute of propofol. Tolerated PSV trials 3 hours today Objective Vital Signs Date Time Temp Pulse Resp B/P Pulse Ox O2 Delivery O2 Flow Rate FiO2 09/22/16 18:00 84 09/22/16 16:00 99.1 20 134/71 98 09/22/16 16:00 50 Intake and Output 09/21/16 09/21/16 09/22/16 08:00 16:00 00:00 Intake Total 754 ml 699 ml 817 ml Output Total 135.0 ml 4075.0 ml 60 ml Balance 619.0 ml -3376.0 ml 757 ml Result Diagram: 09/22/16 0347 09/22/16 0347 Other Results Microbiology Date/Time Procedure Status Source Growth 09/20/16 01:50 Stool Occult Blood (BRITTANI) - Final Complete Stool Stool HEMOCCULT NEGATIVE Imaging Last Impressions Chest X-Ray 09/21/16 0600 Signed Impressions: Service Date/Time: August 02:46 - CONCLUSION: No significant change of bilateral pulmonary infiltrates. Kieran Ford MD Catheter Placement X-Ray 09/20/16 0000 Signed Impressions: Service Date/Time: Tuesday, September 20, 2016 11:11 - CONCLUSION: Uncomplicated line placement as above. Beto Barbosa MD Renal Ultrasound 09/17/16 0000 Signed Impressions: Service Date/Time: Saturday, September 17, 2016 13:31 - CONCLUSION: Negative renal sonogram. Taco Davidson MD Upper Extremity Ultrasound 09/14/16 0000 Signed Impressions: Service Date/Time: August 08:32 - CONCLUSION: There is thrombus within the left subclavian and internal jugular veins. Danyel Escalante MD Lower Extremity Ultrasound 09/13/16 0000 Signed Impressions: Service Date/Time: Tuesday, September 13, 2016 22:33 - CONCLUSION: Normal examination. Leonides Mason MD Liver Ultrasound 09/08/16 0000 Signed Impressions: Service Date/Time: Thursday, September 08, 2016 08:45 - CONCLUSION: 1. Cholelithiasis with distended gallbladder. However, there are no associated findings present to diagnose acute cholecystitis. If there is persistent clinical concern for acute cholecystitis could evaluate for cystic duct obstruction with hepatobiliary scintigraphy. 2. Hepatomegaly with very heterogeneous echotexture and steatosis. Dejan Allison MD Gall Bladder Ultrasound 08/29/16 Signed Impressions: Service Date/Time: Monday, August 29, 2016 15:21 - CONCLUSION: 1. Hepatomegaly with heterogeneous echotexture throughout the liver. 2. There is a large echogenic area near the neck of the gallbladder suggestive of a stone, but despite its large size, demonstrates no acoustic shadowing in any of the views. Taco Davidson MD CT Angiography 08/15/16 Signed Impressions: Service Date/Time: Monday, August 15, 2016 02:33 - CONCLUSION: 1. No evidence for pulmonary embolism. 2. Multifocal consolidation greatest in the right lower lobe and associated adenopathy. Terry Estrada MD Objective Remarks GENERAL: 56 yo female, critically ill currently resting in bed in no acute distress SKIN: Warm and dry. Much improved diffuse morbilliform exanthem rash HEAD: Normocephalic. EYES: No scleral icterus. No injection or drainage. NECK: trachea midline. Tracheostomy is currently clean dry and intact with old dried blood packed. Neck is obese. Right subclavian hemodialysis catheters clean dry and intact CARDIOVASCULAR: RRR. S1, S2 no S4 . No murmur RESPIRATORY: Breath sounds equal mahogany but distant, few basilar crackles GASTROINTESTINAL: Abdomen obese, soft, non-tender, hypoactive active bowel sounds MUSCULOSKELETAL: 1+ lower extremity edema Neuro: Currently following commands moving upper and lower extremity spontaneously Positive gag and corneal reflex. A/P Problem List: (1) ARDS (adult respiratory distress syndrome) ICD Code: J80 Status: Acute (2) CHF (congestive heart failure) ICD Code: I50.9 Status: Acute (3) Respiratory failure ICD Code: J96.90 Status: Acute (4) Pneumonia ICD Code: J18.9 Status: Acute Assessment and Plan Neuro/Psych: Acute toxic metabolic encephalopathy Agitated delirium Currently 10 mcg/kg minute propofol and 50 g per minute of fentanyl for sedation/analgesia while tracheostomy/ventilator mode Discontinue fentanyl secondary to rash Daily sedation vacation Continue Seroquel 50mg po q8h for delirium. Oxycodone 10 mg every 4 hours EEG 09/09 moderate to severe encephalopathy Pulm: Acute hypercapnic and hypoxemic respiratory failure ARDS Pneumonia community-acquired, now with HCAP with carbapenem-resistant pseudomonas Probable JOE On PRVC/AC RR 20, TV 650, PEEP 10, IT: 1.16 and FIO2 0.50. Decrease FIO2 as tiki. for goal spo2 > 88% Bronchodilator therapy every 4 hours and as needed ICU vent bundle. Pulm has followed- Dr. Beck Gen surgery Dr. Ortega status post percutaneous tracheostomy 09/15 CV: Hypertension Dyslipidemia Elevated troponin - likely strain Monitor HR and BP keep MAP>65mmg Echo 08/14 showed EF 65-70% mild AR/TR Home medications HCTZ 12.5 milligrams daily currently on hold Home medication lovastatin 20 mg by mouth daily switched to Pravachol 20 mg a night. Renal/: Acute kidney injury - requiring hemodialysis Dr. Tan -nephrology following MIKE: ATN from sepsis syndrome and diminished renal perfusion ; also aminoglycoside induced nephrotoxicity likely also contributing; possibly AIN -> per nephrology note Urine eosinophils negative. Renal ultrasound revealed no hydronephrosis s/p exchange Miller with funguria Monitor renal function, I/O's Status post dialysis 09/20 and 09/21-4 L. Plan for hemodialysis Sunday GI: Elevated transaminases Cholelithiasis Monitor LFT's ( trending down), on Protonix 40mg daily for GI prophylaxis US liver: Fatty liver and cholelithiasis. Repeat 09/08 revealed cholelithiasis with no acute signs of cholecystitis. Recommend a HIDA scan if indicated On TF Glucerna 1.5 @ 45ml/hr with 2 packets of been a protein 3 times a day minimal residual. Switch to Nepro's 45 cc an hour with increased phosphorus s/p PEG placement 09/01/[address] Ritter Pepcid 10 mg IV twice a day for GI prophylaxis Colace/Senokot for bowel regimen. Lactulose 30 cc daily added ID: Pseudomonas pneumonia Funguria Pertinent cultures blood and sputum cx 08/15- NG strep pneumonia and Legionella urinary Ag negative Blood cultures 08/28: NGTD C Diff negative 08/28. Lines changed 08/28. Sputum 08/30 - Pseudomonas Sputum 09/02 PSAE, resistant to carbapenem, intermediate to Levaquin. 09/07 - urine -Maribell Guilliermondii 09/07 - blood cultures 2 - no growth 09/09 - urine -strep veridians, Maribell parapsilosis 09/10 - blood cultures 2 -no growth 09/11 - broch washings -no growth to date 09/12 - urine -Maribell glabrata and parapsilosis 09/16 - blood cultures 2 - pending 09/16 - sputum -no growth 09/16 - urine -Maribell glabrata and parapsilosis - Dcd cefepime/Levaquin on 09/05. started on Zosyn 4.5gm iv q6h and tobramycin 7 mg/kg/day. 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 TSH 1.37 FEN: Hyperkalemia - resolved GI prophylaxis- Prevacid per tube. DVT prophylaxis Heparin SQ - resume heparin drip today, SCDs Derm: Exanthem - morbilliform - resolved Discontinue fentanyl and Ativan allergy list Lines: Peripheral IV. - Miller - PEG 09/01/16 - Trach 09/15 - Right subclavian US catheter placed 09/20 by IR Critical Care: The total care time was 35 minutes. Time to perform other separately billable procedures was not included in the critical care time. Loree Marinelli, daughter (HCP): [phone] Rony Marinelli, significant other: [phone] Problem Qualifiers (1) CHF (congestive heart failure): Qualified Code: I50.9 - Acute congestive heart failure, unspecified congestive heart failure type (2) Respiratory failure: Qualified Code: J96.02 - Acute respiratory failure with hypercapnia (3) Pneumonia: Qualified Code: J18.9 - Pneumonia of both lungs due to infectious organism, unspecified part of lung Fadi Villa MD Sep 22, 2016 21:09 Fadi Villa MD Sep 22, 2016 21:09
[2016-09-23] VITALS (20 sets, daily range): BP systolic 127–161; BP diastolic 62–84; PULSE 80–123; RESP 22–29; TEMP 97.9–98.9; O2SAT 93–98
[2016-09-23] MEDS: oxyCODONE HCL ORAL CONC 20 MG/ML SYRINGE G-TUBE SCH ×6 (00:12→20:11)
[2016-09-23] MEDS: INSULIN NovoLIN REGULAR SUPPLEMENTAL SCALE SQ SCH ×4 (00:12→18:00)
[2016-09-23] MEDS: PROPOFOL 1000 MG/100 ML INJ 100 ML IV SCH ×5 (02:50→21:37)
[2016-09-23] MEDS: RESP: ALBUTEROL 2.5 MG/IPRATROPIUM 0.5 MG NEB (SCH) INH ×4 (03:27→20:32)
[2016-09-23] MEDS: CHLORHEXIDINE GLUCONATE 2 % 1 PACK (2 CLOTHS) TOP SCH (04:00)
[2016-09-23] MEDS: MORPHINE SULFATE 4 MG/ML INJ IV PRN (05:07)
[2016-09-23] MEDS: LEVOTHYROXINE SODIUM 200 MCG TAB PO SCH (05:07)
[2016-09-23] MEDS: QUEtiapine FUMARATE 25 MG TAB PO SCH ×3 (05:07→21:38)
[2016-09-23] MEDS: METOCLOPRAMIDE HCL 10 MG/2 ML VIAL IV PUSH SCH ×3 (05:07→21:38)
--- NOTE | 2016-09-23 06:39 | RADRPT ---
EXAM DATE/TIME: 09/23/2016 05:10 [facility] COMPARISON: CHEST SINGLE AP, September 21, 2016, 2:46. INDICATIONS : Shortness of breath, possible pulmonary disease. MEDICAL HISTORY : Congestive heart failure. SURGICAL HISTORY : None. ENCOUNTER: Subsequent ACUITY: 1 week PAIN SCORE: Non-responsive. LOCATION: Bilateral chest FINDINGS: Mild bibasilar consolidation and small effusions are slightly improved on both sides. No pneumothorax seen. Heart size stable, upper limits of normal. Tracheostomy tube again noted, appears normally positioned. There is a right subclavian central venou s catheter with tip in the right atrium. CONCLUSION: Improving edema and effusions. Dejan Gill MD on September 23, 2016 at 6:37 Board Certified Radiologist. This report was verified electronically.
[2016-09-23 06:59] LABS: BICARBONATE 24.8 MEQ/L (21.0-32.0); POTASSIUM 3.9 MEQ/L (3.5-5.1)
[2016-09-23 07:05] LABS: AUTOMATED NEUTROPHIL # 7.7 TH/MM3 (1.8-7.7); BASOPHIL # 0.1 TH/MM3 (0-0.2); BASOPHIL % 0.5 % (0.0-2.0); EOSINOPHIL # 0.1 TH/MM3 (0-0.4); EOSINOPHIL % 1.2 % (0.0-4.0); HEMATOCRIT 27.4 % (35.0-46.0); LYMPH % 8.1 % (9.0-44.0); LYMPHOCYTE # 0.9 TH/MM3 (1.0-4.8); MEAN CELL VOLUME 85.9 FL (80.0-100.0); MEAN CORPUSCULAR HEMOGLOBIN 27.9 PG (27.0-34.0); MEAN CORPUSCULAR HGB CONC 32.4 % (32.0-36.0); MONO % 17.2 % (0.0-8.0); PLATELET COUNT 299 TH/MM3 (150-450); RED BLOOD COUNT 3.19 MIL/MM3 (4.00-5.30); WHITE BLOOD COUNT 10.6 TH/MM3 (4.0-11.0)
[2016-09-23 07:12] LABS: APTT (PATIENT) 33.1 SEC (24.3-30.1); PROTHROMBIN TIME - PATIENT 10.7 SEC (9.8-11.6)
[2016-09-23] MEDS: HEPARIN-D5W 25,000 U/250 ML 250 ML IV SCH ×2 (07:28→18:08)
[2016-09-23 07:45] LABS: HEMO FLAGS AUTO DIFF
[2016-09-23] MEDS: ARTIFICIAL TEARS OPTH SOLN 15 ML BTL EACH EYE SCH ×3 (08:30→16:24)
[2016-09-23] MEDS: POLYETHYLENE GLYCOL 17 GM PKG PO SCH (08:31)
[2016-09-23] MEDS: BENEPROTEIN POWDER 1 PACK G-TUBE SCH ×3 (08:31→18:00)
[2016-09-23] MEDS: SENNOSIDES SYRUP 8.8 MG/5 ML CUP PO SCH ×2 (08:31→20:11)
[2016-09-23] MEDS: CALCIUM ACETATE 667 MG CAP PO SCH ×3 (08:31→16:24)
[2016-09-23] MEDS: SODIUM CHLORIDE 0.9% FLUSH 10 ML FLUSH IVF SCH (08:32)
[2016-09-23] MEDS: SODIUM CHLORIDE 0.9% FLUSH 10 ML FLUSH IV FLUSH SCH ×2 (08:32→20:12)
[2016-09-23] MEDS: DOCUSATE SODIUM 100 MG/10 ML UDC PO SCH ×2 (08:32→20:11)
--- NOTE | 2016-09-23 10:40 | HHI.NPPN ---
Subjective General Problems: Edema, Hypotension, Obesity Renal Failure: Acute Interval History patient was seen during dialysis. On 3K, UF goal is 3 liters. BFR is 350 ml/ min. Patient remains intubated. Review of Systems General General Remarks unable to evaluate Objective Data Data 09/22/16 09/23/16 19:00 07:00 Intake Total 668 ml 1646 ml Output Total 40.0 ml 195 ml Balance 628.0 ml 1451 ml IV Total 264 ml 740 ml Tube Feeding 284 ml 666 ml Tube Irrigant 120 ml 240 ml Output Urine Total 40 ml 195 ml Tube Feeding Residual Discard 0 ml # Bowel Movements 1 2 Vital Signs Date Time Temp Pulse Resp B/P Pulse Ox O2 Delivery O2 Flow Rate FiO2 09/23/16 07:30 95 35 09/23/16 06:00 101 09/23/16 04:43 98 50 09/23/16 04:00 45 09/23/16 04:00 98.0 107 23 154/84 97 09/23/16 04:00 107 09/23/16 02:00 80 09/23/16 01:41 96 50 09/23/16 00:00 50 09/23/16 00:00 98.9 112 22 154/79 96 09/23/16 00:00 112 09/22/16 22:25 97 50 09/22/16 22:00 72 09/22/16 20:30 96 50 09/22/16 20:00 78 09/22/16 20:00 50 09/22/16 20:00 98.0 100 20 140/79 95 09/22/16 18:00 84 09/22/16 16:00 99.1 103 20 134/71 98 09/22/16 16:00 103 09/22/16 16:00 50 09/22/16 15:30 92 50 09/22/16 14:00 89 09/22/16 13:00 50 09/22/16 12:57 94 50 09/22/16 12:05 93 50 09/22/16 12:00 112 09/22/16 12:00 50 09/22/16 12:00 98.9 112 28 149/63 94 -: 09/23/16 0621 09/23/16 0521 Tubes & Lines: Miller Tubes & Lines Comment trach, PEG Drip Comment heparin, propofol, fentanyl Physical Exam General Appearance: Well Developed, No Acute Distress, Comfortable, Obese Throat Throat Exam: Oral Mucosa [place] & Moist Neck Neck Exam: Neck Supple Cardiology CV Exam: Regular, Normal Sinus Rhythm Gastrointestinal/Abdomen GI Exam: Soft, Bowel Sounds Present Musculoskeletal MS Exam: Joints Intact, Good Strength, Unable to Ambulate Integumentary Skin Exam: Warm, Dry Extremeties Extremities Exam: Pedal Pulses Palpable, Moderate Edema, Pitting Edema Neurologic Neuro Exam: Unresponsive, Sedated VTE Prophylaxis Device: SCDs Assessment/Plan Assessment Summary: MIKE/Acute Renal Failure, Acute Tubular Necrosis, Hypotension Problem List: (1) Acute kidney injury Plan: In a pt with normal renal function at baseline MIKE: ATN from sepsis syndrome and diminished renal perfusion ; also aminoglycoside induced nephrotoxicity likely also contributing; possibly AIN HD initiated 09/20 (4L UF) Dialysis today as above. await renal recovery currently oliguric continue phoslo for hyperphosphatemia avoid IVF, nephrotoxins maintain adequate MAP, pressors if needed daily renal panel (2) ARDS (adult respiratory distress syndrome) Plan: s/p trach placement continue Ventilator support: 20/600/60/10 Hydropulper Operator managing. (3) Pneumonia Plan: Pseudomonas in the sputum. ID following. monitor the pt clinically, she is currently off antibiotics afebrile today (4) Hypothyroidism Plan: on synthroid (5) Morbid obesity Problem Qualifiers (1) Pneumonia: Qualified Code: J18.9 - Pneumonia of both lungs due to infectious organism, unspecified part of lung Anshu Tan MD Sep 23, 2016 10:40
[2016-09-23 11:54] LABS: BANDS 13 % (0-6); CORRECTED NUCLEATED RBC 3 /100 WBC (0-0); METAMYELOCYTES 2 % (0-1); MYELOCYTES 3 % (0-0); NEUTROPHIL # MANUAL DIFF 8.9 TH/MM3 (1.8-7.7); POLYS (SEG NEUTROPHILS) 66 % (16-70); WBC DIFF SAMPLE 100
[2016-09-23 11:55] LABS: PLATELET ESTIMATE SMEAR NORMAL (NORMAL); PLATELET MORPHOLOGY NORMAL (NORMAL); POLYCHROMASIA 2.4 % (0.0-1.9); SCAN/DIFF FINAL DIFF MANUAL
[2016-09-23] MEDS: FAMOTIDINE 20 MG/2 ML VIAL IV PUSH SCH (12:06)
[2016-09-23] MEDS: HEPARIN SODIUM - IV 10,000 UNITS/10 ML VIAL PRN (12:19)
[2016-09-23] MEDS: GENTAMICIN SULFATE (DIALYSIS USE ONLY) 20 MG/2 ML VIAL IV PRN (12:20)
--- NOTE | 2016-09-23 14:48 | HHI.CCPN ---
Subjective Remarks/Hospital Course 56-year-old morbidly obese female brought in the emergency department in respiratory distress. She was intubated by ER attending. She has been sick for about a week with symptoms consistent with UTI. She's had fevers and chills. She's been short of breath. She's had fatigue. She has had a cough and chest pain with coughing. The family reports that she's been delirious for the last 3 days. 08/15 Patient is sedated with Diprivan, Versed, Fentanyl and intubated. CTA chest showed no PE multifocal consolidation greatest in RLL. Tmax 100.6 08/16 Patient is sedated with Diprivan and Fentanyl. Afebrile. CXR this morning showed increase consolidation. 08/17 Patient remains sedated and intubated. T:100.4 On PRVC/AC RR 18, Tv 500, IT :1.0 PEEP:10, FIO2 75% 08/18 Remains sedated and intubated. Afebrile. CXR this morning unchanged bibasilar infiltrates and effusions. 08/19 Patient was placed on rotoprone bed last night for proning sedated with Diprivan, Versed and Fentnayl in addition she is on Nimbex. On PRVC/AC RR 20, TV 400, IT:1.1, PEEP:14 and FIO2 80%. Afebrile. 08/20 Patient remains sedated and intubated. Remains on PRVC/AC mode with improvements in her oxygenation on FIO2 50% from 80% yesterday and PEEP:12. 08/21 Patient remains sedated and intubated. On PRVC/AC mode with RR 20, TV 400, IT:1.1, PEEP: 12 and FIO2 50%. Afebrile. 08/22 No acute events overnight. Remains sedated, intubated and on Nimbex.. T: 99.8. On PRVC mode with PEP: 12, FIO2 50%. CXR from yesterday showed better aeration, RLL infiltrate unchanged. 08/23 Chest x-ray worsening. Methylprednisolone taper to twice a day by pulmonary. The patient's FiO2 was found to be 100% this a.m., will continue to wean. 08/24: 1 desat episode yesterday when supine. still remains prone now. no vasopressors. sedated and paralyzed. 08/25: flolan added yesterday. fio2 down to 60%. remained supine all night. still on neuromuscular blockade. net -500cc/24h. 08/26: good diuresis. remained supine. fio2 70%. weaning flolan. remains with significant respiratory support and high peep despite 6L diuresis overnight. Cr still stable. 08/27: continues with good diuresis. net negative 3L/24h. fio2 down to 55%. flolan off. still high peep. not ready for SBT. more agitated today. Cr remains stable despite aggressive diuresis. 08/28: diuresis continues. -3.3L/24h. spiked fever overnight with a jump in wbc to 16 this AM. fio2 60%, but her pulmonary improvements have plateaued at this point. still on peep 12. 08/29: net -1.7L/24h. Cr starting to rise. still spiking fevers despite vanc/ cefepime added yesterday. wbc continues to rise. clinically appears infected, although unclear source. peep 10, fio2 60%. will likely need trach. 08/30: net +800cc, but Cr downtrending. appears clinically euvolemic. fever curve downtrending. wbc downtrending. on 40% fio2, peep 8 today. still following commands. 08/31: failed SBT after only 45 minutes yesterday. intubated for > 2 weeks at this point. will attempt to pursue trach/peg today. will continue with pulmonary strengthening. daily SBTs. 09/01 CXR showing increasing bibasilar infiltrate. Failed C Pap trial in 5 minutes due to severe tachypnea. PEG tube today. Family has not decided on trach yet 09/02: Patient febrile to 101.1, CXR increased infiltrate Tmax Tmax 101.1. Currently 9.7 left upper lung and right lower lobe. Pancultured. Cefepime added today and one dose of vancomycin. Continues to fail C Pap trial due to tachypnea and respiratory distress 09/03: Remains hypoxemic on 75% oxygen with new pneumonia. Sputum culture 09/02/16 with GNR. Family agreeable for tracheostomy but patient is not stable at this point for trach 09/04: still on 70% fio2. still hypoxic. pneumonia persists. needs trach, but too unstable at this point. 09/05: remains on 75% fio2. pseudomonas sensitivities came back resistant to carbapenems, intermediate to levaquin. still spiking fevers. not clinically improving. wbc remains elevated. 09/06: Remains on 12 of PEEP and FiO2 75%. Zosyn and tobramycin started yesterday. WBC count trending down today 11.5 from 13.1. Remains heavily sedated for ventilator synchrony. MAXIMUM TEMPERATURE 100.3 09/07: Continues to spike fever. CXR unchanged. WBC count improving. PEEP 14. FiO2 60%. Will start IV Bumex 1mg IV q12 09/09: Tolerating tube feeds at goal. Afebrile. No documented bowel movement. Currently sedated on the ventilator 09/10: Tmax 99.7. Currently 99.4. No bowel movement yesterday. None document since 09/04. Arousable on the ventilator 09/11: Tmax 102.6. Currently 100. Positive BM. Arousable on the ventilator. Tolerating tube feeds. Central line changed yesterday. Plan for bronchoscopy at 1 PM. 09/12: Tmax 100.1. Currently afebrile. Follows commands today. Wiggles toes and give thumbs up appropriately. MRI brain canceled. Tolerating tube feeding with positive BM. Tracheostomy currently planned for . 09/13: Tmax 102. Again on sedation vacation [place] commands by wiggling toes bilaterally and giving thumbs up bilaterally appropriate. Tolerating tube feeding with positive BM. Tracheostomy planned for tomorrow with Dr. Ortega. 09/14: Low grade fever. CXR showing more prominent infiltrate on the right lower lobe and left upper lobe. WBC trending up still in normal range. Patient is on 40% FiO2 but continues to fail CPAP due to tachypnea 09/15: Remains intubated sedated, unable to wean off the vent. Plan for tracheostomy today with Dr. Ortega. Continues to have low grade fever. CXR with persistent bibasilar infiltrates 09/16: Tmax 101.1. Currently 100.7. Awake and alert. Following commands. 09/17: Afebrile. Currently on PSV trial. Tolerating tube feeds. One bowel movement. Noted decreased urine output past 48 hours. Diuretics have been discontinued. This a.m. creatinine currently pending. 09/18: Afebrile. Adequate urine output yesterday but decreased 150 past 8 hours. Tolerating tube feeds. One bowel movement. Not tolerating PSV trials today. 09/19: Tmax 100.5. Urine output picking up. Tolerating tube feeds. No bowel movement 48 hours. Not tolerating PSV trials. 09/20: Diffuse drug morbilliform exanthem noted this a.m. Tmax 100.6. Urine output around 20 cc an hour. Not tolerating PSV trials. Possibly new right pleural effusion noted on chest x-ray. Will need hemodialysis 09/21: Tmax 100.6 currently 98.7. -4 L with hemodialysis yesterday and today. FiO2 to 60%. Tolerating tube feeds. Positive BM. Still requiring sedation 09/22: Afebrile. Tolerating tube feeds. Positive BM. 30 g per kilogram per minute of propofol. Tolerated PSV trials 3 hours today Subjective 09/23 HD today with 3.5 L removal. Tolerating CPAP for 8 hours, currently 12/ 10 45% with RSBI 45%. Objective Vital Signs Date Time Temp Pulse Resp B/P Pulse Ox O2 Delivery O2 Flow Rate FiO2 09/23/16 12:33 93 45 09/23/16 12:00 92 09/23/16 09:30 18 09/23/16 08:00 97.9 158/75 Intake and Output 09/22/16 09/22/16 09/23/16 08:00 16:00 00:00 Intake Total 775 ml 668 ml 920 ml Output Total 50.0 ml 40.0 ml 125 ml Balance 725.0 ml 628.0 ml 795 ml Result Diagram: 09/23/16 0621 09/23/16 0521 Imaging Last Impressions Chest X-Ray 09/21/16 0600 Signed Impressions: Service Date/Time: August 02:46 - CONCLUSION: No significant change of bilateral pulmonary infiltrates. Kieran Ford MD Catheter Placement X-Ray 09/20/16 0000 Signed Impressions: Service Date/Time: Tuesday, September 20, 2016 11:11 - CONCLUSION: Uncomplicated line placement as above. Beto Barbosa MD Renal Ultrasound 09/17/16 0000 Signed Impressions: Service Date/Time: Saturday, September 17, 2016 13:31 - CONCLUSION: Negative renal sonogram. Taco Davidson MD Upper Extremity Ultrasound 09/14/16 0000 Signed Impressions: Service Date/Time: August 08:32 - CONCLUSION: There is thrombus within the left subclavian and internal jugular veins. Danyel Escalante MD Lower Extremity Ultrasound 09/13/16 0000 Signed Impressions: Service Date/Time: Tuesday, September 13, 2016 22:33 - CONCLUSION: Normal examination. Leonides Mason MD Liver Ultrasound 09/08/16 0000 Signed Impressions: Service Date/Time: Thursday, September 08, 2016 08:45 - CONCLUSION: 1. Cholelithiasis with distended gallbladder. However, there are no associated findings present to diagnose acute cholecystitis. If there is persistent clinical concern for acute cholecystitis could evaluate for cystic duct obstruction with hepatobiliary scintigraphy. 2. Hepatomegaly with very heterogeneous echotexture and steatosis. Dejan Allison MD Gall Bladder Ultrasound 08/29/16 0000 Signed Impressions: Service Date/Time: Monday, August 29, 2016 15:21 - CONCLUSION: 1. Hepatomegaly with heterogeneous echotexture throughout the liver. 2. There is a large echogenic area near the neck of the gallbladder suggestive of a stone, but despite its large size, demonstrates no acoustic shadowing in any of the views. Taco Davidson MD CT Angiography 08/15/16 0000 Signed Impressions: Service Date/Time: Monday, August 15, 2016 02:33 - CONCLUSION: 1. No evidence for pulmonary embolism. 2. Multifocal consolidation greatest in the right lower lobe and associated adenopathy. Terry Estrada MD Objective Remarks Drips: Propofol 30 g per KG per minute GENERAL: 56 yo female, sitting [place] [facility] [place] via trach. SKIN: Warm and dry. Rash now dry, exfoliative. HEAD: Normocephalic. EYES: No scleral icterus. No injection or drainage. NECK: trachea midline. 8.0 perc Tracheostomy without exudate. Neck is obese. Right subclavian hemodialysis catheters clean dry and intact CARDIOVASCULAR: RRR. S1, S2 no S4 . No murmur RESPIRATORY: Appears reasonably comfortable on C Pap no accessory muscle use. Scattered rhonchi. GASTROINTESTINAL: Abdomen obese, soft, non-tender, hypoactive active bowel sounds. Tolerating tube feeds MUSCULOSKELETAL: Crinkling of bilateral lower extremities. 1+ edema BUE. Neuro: Awake, makes eye contact and nods to questions. Currently following commands moving upper and lower extremity spontaneously. Generally very weak, cannot lift BUE off bed. A/P Problem List: (1) ARDS (adult respiratory distress syndrome) ICD Code: J80 Status: Acute (2) CHF (congestive heart failure) ICD Code: I50.9 Status: Acute (3) Respiratory failure ICD Code: J96.90 Status: Acute (4) Pneumonia ICD Code: J18.9 Status: Acute Assessment and Plan Neuro/Psych: Critical illness associated weakness Acute toxic metabolic encephalopathy Agitated delirium Currently 10 mcg/kg minute propofol. Discontinued fentanyl 09/20 secondary to rash Daily sedation vacation Continue Seroquel 50mg po q8h for delirium. Oxycodone 5 mg every 4 hours. Additional 5 mg q 4hours as needed. EEG 09/09 moderate to severe encephalopathy PT/OT. Ordering multipodus boots. Pulm: Acute hypercapnic and hypoxemic respiratory failure ARDS Pneumonia community-acquired, now with HCAP with carbapenem-resistant pseudomonas Probable JOE CPAP trials daily. . Decrease FIO2 as tiki. for goal spo2 > 88% Bronchodilator therapy every 4 hours and as needed ICU vent bundle. Pulm has followed- Dr. Beck Gen surgery Dr. Ortega status post percutaneous tracheostomy 09/15 CV: Hypertension Dyslipidemia Elevated troponin - likely strain Hypertensive . Metoprolol 12.5 mg by mouth twice a day Echo 08/14 showed EF 65-70% mild AR/TR Home medications HCTZ 12.5 milligrams daily currently on hold Home medication lovastatin 20 mg by mouth daily switched to Pravachol 20 mg a night. Renal/: Acute kidney injury - requiring hemodialysis Dr. Tan -nephrology following MIKE: ATN from sepsis syndrome and diminished renal perfusion ; also aminoglycoside induced nephrotoxicity likely also contributing; possibly AIN -> per nephrology note Urine eosinophils negative. Renal ultrasound revealed no hydronephrosis s/p exchange Miller with funguria Monitor renal function, I/O's. UOP ~ 200 /24 hours. Status post dialysis 09/20 and 09/21-4 L., -3.5 kg on 09/23. GI: Elevated transaminases Cholelithiasis Monitor LFT's ( trending down), on Protonix 40mg daily for GI prophylaxis US liver: Fatty liver and cholelithiasis. Repeat 09/08 revealed cholelithiasis with no acute signs of cholecystitis. Recommend a HIDA scan if indicated On TF Nepro's 45 cc an hour and beneprotein 2 packs 3 times a day s/p PEG placement 09/01/[address] Ritter Pepcid 10 mg IV twice a day for GI prophylaxis Colace/Senokot for bowel regimen. Lactulose 30 cc daily added Having bowel movements ID: Pseudomonas pneumonia Funguria, Maribell glabrata and parapsilosis. Pertinent cultures blood and sputum cx 08/15- NG strep pneumonia and Legionella urinary Ag negative Blood cultures 08/28: NGTD C Diff negative 08/28. Lines changed 08/28. Sputum 08/30 - Pseudomonas Sputum 09/02 PSAE, resistant to carbapenem, intermediate to Levaquin. 09/07 - urine -Maribell Guilliermondii 09/07 - blood cultures 2 - no growth 09/09 - urine -strep veridians, Maribell parapsilosis 09/10 - blood cultures 2 -no growth 09/11 - broch washings -no growth to date 09/12 - urine -Maribell glabrata and parapsilosis 09/16 - blood cultures 2 - pending 09/16 - sputum -no growth 09/16 - urine -Maribell glabrata and parapsilosis - Dcd cefepime/Levaquin on 09/05. started on Zosyn 4.5gm iv q6h and tobramycin 7 mg/kg/day. 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 Warfarin started 09/23 Endo: Diabetes mellitus Hypothyroidism on SSI (medium scale) for glycemic control On Synthroid 200mcg daily. TSH 1.37 FEN: Hyperkalemia - resolved GI prophylaxis- Prevacid per tube. DVT prophylaxis Heparin SQ - Continue , SCDs Derm: Exanthem - morbilliform - resolved Discontinue fentanyl and Ativan allergy list. Now rash is dry, exfoliative. Moisturizer. Lines: Peripheral IV. - PEG 09/01/16 - Trach 09/15 - Right subclavian US catheter placed 09/20 by IR Critical Care: Discussed with Dr. Beck. The total care time was 32 minutes. Time to perform other separately billable procedures was not included in the critical care time. Loree Marinelli, daughter (HCP): [phone] Rony Marinelli, significant other: [phone] Problem Qualifiers (1) CHF (congestive heart failure): Qualified Code: I50.9 - Acute congestive heart failure, unspecified congestive heart failure type (2) Respiratory failure: Qualified Code: J96.02 - Acute respiratory failure with hypercapnia (3) Pneumonia: Qualified Code: J18.9 - Pneumonia of both lungs due to infectious organism, unspecified part of lung Allegra Earl MD Sep 23, 2016 14:48
[2016-09-23] MEDS ORDERED: PETROLATUM 30 GM TUBE TOPICAL ONE (15:00)
--- NOTE | 2016-09-23 15:05 | HHI.PR ---
Subjective Remarks Awake and on CPAP .FIO2 at 45 %. Better over the last 2 days. Able to respond to questions. Objective Vital Signs Date Time Temp Pulse Resp B/P Pulse Ox O2 Delivery O2 Flow Rate FiO2 09/23/16 12:33 93 45 09/23/16 12:00 92 09/23/16 10:00 88 09/23/16 09:30 18 09/23/16 08:00 105 09/23/16 08:00 97.9 105 22 158/75 95 09/23/16 08:00 45 09/23/16 07:30 95 35 09/23/16 06:00 101 09/23/16 04:43 98 50 09/23/16 04:00 45 09/23/16 04:00 98.0 107 23 154/84 97 09/23/16 04:00 107 09/23/16 02:00 80 09/23/16 01:41 96 50 09/23/16 00:00 50 09/23/16 00:00 98.9 112 22 154/79 96 09/23/16 00:00 112 09/22/16 22:25 97 50 09/22/16 22:00 72 09/22/16 20:30 96 50 09/22/16 20:00 78 09/22/16 20:00 50 09/22/16 20:00 98.0 100 20 140/79 95 09/22/16 18:00 84 09/22/16 16:00 99.1 103 20 134/71 98 09/22/16 16:00 103 09/22/16 16:00 50 09/22/16 15:30 92 50 I/O 09/22/16 09/22/16 09/22/16 09/23/16 09/23/16 09/23/16 07:00 15:00 23:00 07:00 15:00 23:00 Intake Total 775 ml 668 ml 920 ml 726 ml Output Total 50 ml 40 ml 125 ml 70 ml 3500 ml Balance 725 ml 628 ml 795 ml 656 ml -3500 ml IV Total 333 ml 264 ml 427 ml 313 ml Tube Feeding 322 ml 284 ml 373 ml 293 ml Tube Irrigant 120 ml 120 ml 120 ml 120 ml Output Urine Total 50 ml 40 ml 125 ml 70 ml Tube Feeding Residual Discard 0 ml 0 ml Hemodialysis 3500 ml # Bowel Movements 0 1 1 1 Result Diagram: 09/23/16 0621 09/23/16 0521 Objective Remarks This is an obese middle-aged white female who is sedated. HEENT: Head normocephalic. Pupils react. Neck: No bruits, no thyroid enlargement, no lymphadenopathy. Chest: Decreased breath sounds.Occ wheeze heard. Few basal crackles. Heart: Heart sounds were regular. S1-S2 no murmur, no S3. Abdomen: Soft, benign. No masses, or tenderness. Bowel sounds are active. Extremities: No edema ,but has a Diffuse healing rash . Neuro : Awake . Assessment and Plan Assessment and Plan IMPRESSION 1. Acute hypercapnic respiratory failure. 2. Pulmonary edema. 3. Drug rash 4. Obstructive sleep apnea syndrome 5. Hypertension 6. Hypothyroidism. 7. MIKE Plan : 1. Cont weaning vent with PSV /CPAP for 12 hrs. 2. Trach toilet and suctioning 3. Nebs qid , duoneb. 4. A/C rate 12, PEEP +10 after CPAP. 5. Reduce sedation 6. PT evaluation 7. Tube feeds at 50 CC 8. Diuretic per renal. Abimael Beck MD Sep 23, 2016 15:05
[2016-09-23] MEDS ORDERED: WARFARIN SOD 2.5 MG TAB PO SCH (16:00)
[2016-09-23] MEDS: PRAVASTATIN SOD 20 MG TAB PO SCH (20:11)
[2016-09-23] MEDS: METOPROLOL TARTRATE 25 MG TAB G-TUBE SCH (20:12)
[2016-09-24] VITALS (17 sets, daily range): BP systolic 113–205; BP diastolic 57–117; PULSE 80–107; RESP 22–30; TEMP 98.7–100; O2SAT 92–96
[2016-09-24] MEDS: oxyCODONE HCL ORAL CONC 20 MG/ML SYRINGE G-TUBE SCH ×6 (00:03→23:55)
[2016-09-24] MEDS: FAMOTIDINE 20 MG/2 ML VIAL IV PUSH SCH ×3 (00:03→23:20)
[2016-09-24] MEDS: PROPOFOL 1000 MG/100 ML INJ 100 ML IV SCH ×4 (02:19→19:45)
[2016-09-24] MEDS: RESP: ALBUTEROL 2.5 MG/IPRATROPIUM 0.5 MG NEB (SCH) INH ×4 (03:11→19:52)
[2016-09-24] MEDS: CHLORHEXIDINE GLUCONATE 2 % 1 PACK (2 CLOTHS) TOP SCH (03:48)
[2016-09-24] MEDS: QUEtiapine FUMARATE 25 MG TAB PO SCH ×3 (05:31→20:39)
[2016-09-24] MEDS: METOCLOPRAMIDE HCL 10 MG/2 ML VIAL IV PUSH SCH ×3 (05:31→20:40)
[2016-09-24] MEDS: LEVOTHYROXINE SODIUM 200 MCG TAB PO SCH (05:31)
[2016-09-24] MEDS: INSULIN NovoLIN REGULAR SUPPLEMENTAL SCALE SQ SCH ×5 (05:34→23:55)
[2016-09-24] MEDS: HEPARIN-D5W 25,000 U/250 ML 250 ML IV SCH (06:10)
[2016-09-24 06:47] LABS: HEMATOCRIT 28.5 % (35.0-46.0); MEAN CELL VOLUME 85.4 FL (80.0-100.0); MEAN CORPUSCULAR HEMOGLOBIN 27.9 PG (27.0-34.0); MEAN CORPUSCULAR HGB CONC 32.6 % (32.0-36.0); PLATELET COUNT 275 TH/MM3 (150-450); RED BLOOD COUNT 3.34 MIL/MM3 (4.00-5.30); WHITE BLOOD COUNT 9.8 TH/MM3 (4.0-11.0)
[2016-09-24 07:12] LABS: APTT (PATIENT) 45.4 SEC (24.3-30.1); PROTHROMBIN TIME - PATIENT 10.7 SEC (9.8-11.6)
[2016-09-24 07:32] LABS: REVIEW FLAG FINAL
--- NOTE | 2016-09-24 08:47 | HHI.NPPN ---
Subjective General Problems: Edema, Hypotension, Obesity Renal Failure: Acute Interval History she was dialyzed yesterday. She is oliguric. Review of Systems General General Remarks unable to evaluate Objective Data Data 09/23/16 09/24/16 19:00 07:00 Intake Total 834 ml 1107 ml Output Total 3550 ml 100 ml Balance -2716 ml 1007 ml IV Total 379 ml 523 ml Tube Feeding 335 ml 584 ml Tube Irrigant 120 ml Output Urine Total 50 ml 100 ml Hemodialysis 3500 ml # Bowel Movements 1 3 Vital Signs Date Time Temp Pulse Resp B/P Pulse Ox O2 Delivery O2 Flow Rate FiO2 09/24/16 07:36 96 45 09/24/16 06:00 95 09/24/16 04:00 45 09/24/16 04:00 102 09/24/16 04:00 98.7 102 27 140/66 92 09/24/16 03:56 92 45 09/24/16 02:00 89 09/24/16 00:00 93 09/24/16 00:00 45 09/24/16 00:00 98.7 93 24 134/65 94 09/23/16 23:00 95 45 09/23/16 22:00 96 09/23/16 20:31 94 45 09/23/16 20:00 45 09/23/16 20:00 90 09/23/16 20:00 98.6 90 24 131/63 95 09/23/16 18:00 109 09/23/16 17:24 21 09/23/16 16:00 45 09/23/16 16:00 123 09/23/16 16:00 98.9 111 29 161/72 94 09/23/16 15:18 93 35 09/23/16 14:00 100 09/23/16 12:33 93 45 09/23/16 12:00 45 09/23/16 12:00 98.6 92 22 127/62 94 09/23/16 12:00 92 09/23/16 10:00 88 -: 09/24/16 0613 09/23/16 0521 Tubes & Lines: Miller Tubes & Lines Comment trach, PEG Drip Comment heparin, propofol, fentanyl Physical Exam General Appearance: Well Developed, No Acute Distress, Comfortable, Obese Throat Throat Exam: Oral Mucosa [place] & Moist Neck Neck Exam: Neck Supple Cardiology CV Exam: Regular, Normal Sinus Rhythm Gastrointestinal/Abdomen GI Exam: Soft, Bowel Sounds Present Musculoskeletal MS Exam: Joints Intact, Good Strength, Unable to Ambulate Integumentary Skin Exam: Warm, Dry Extremeties Extremities Exam: Pedal Pulses Palpable, Moderate Edema, Pitting Edema Neurologic Neuro Exam: Unresponsive, Sedated VTE Prophylaxis Device: SCDs Assessment/Plan Assessment Summary: MIKE/Acute Renal Failure, Acute Tubular Necrosis, Hypotension Problem List: (1) Acute kidney injury Plan: In a pt with normal renal function at baseline MIKE: ATN from sepsis syndrome and diminished renal perfusion ; also aminoglycoside induced nephrotoxicity likely also contributing; possibly AIN HD initiated 09/20 (4L UF) No signs of renal recovery. currently oliguric continue PhosLo for hyperphosphatemia Avoid nephrotoxic agents. Continue supportive care. (2) ARDS (adult respiratory distress syndrome) Plan: s/p trach placement continue Ventilator support: 20/600/60/10 Rehabilitation Manager managing. (3) Pneumonia Plan: Pseudomonas in the sputum. ID following. monitor the pt clinically, she is currently off antibiotics afebrile today (4) Hypothyroidism Plan: on synthroid (5) Morbid obesity Plan Prognosis is guarded. Problem Qualifiers (1) Pneumonia: Qualified Code: J18.9 - Pneumonia of both lungs due to infectious organism, unspecified part of lung Anshu Tan MD Sep 24, 2016 08:47
[2016-09-24] MEDS: DOCUSATE SODIUM 100 MG/10 ML UDC PO SCH ×2 (08:51→20:40)
[2016-09-24] MEDS: SODIUM CHLORIDE 0.9% FLUSH 10 ML FLUSH IVF SCH (08:51)
[2016-09-24] MEDS: ARTIFICIAL TEARS OPTH SOLN 15 ML BTL EACH EYE SCH ×3 (08:51→18:46)
[2016-09-24] MEDS: BENEPROTEIN POWDER 1 PACK G-TUBE SCH ×3 (08:51→18:00)
[2016-09-24] MEDS: SODIUM CHLORIDE 0.9% FLUSH 10 ML FLUSH IV FLUSH SCH ×2 (08:51→20:40)
[2016-09-24] MEDS: POLYETHYLENE GLYCOL 17 GM PKG PO SCH (08:51)
[2016-09-24] MEDS: METOPROLOL TARTRATE 25 MG TAB G-TUBE SCH ×2 (08:51→20:39)
[2016-09-24] MEDS: SENNOSIDES SYRUP 8.8 MG/5 ML CUP PO SCH ×2 (08:52→20:39)
[2016-09-24] MEDS: CALCIUM ACETATE 667 MG CAP PO SCH ×3 (08:52→18:46)
[2016-09-24] MEDS: PANTOPRAZOLE INJ 80 MG in SODIUM CHLORIDE 0.9% INJ 100 ML IV SCH (09:25)
[2016-09-24] MEDS ORDERED: PANTOPRAZOLE INJ 80 MG in SODIUM CHLORIDE 0.9% INJ 35 ML IV ONE (09:45)
--- NOTE | 2016-09-24 12:28 | HHI.GIFU ---
Subjective Remarks 56 yo female lying in bed in no apparent distress. Nurse reports that patient had an episode of liquid BM with red tinged blood in it. Nurse reports foul odor to BM. Patient had been on Heparin drip, but this has been put on hold and patient is taking PO Coumadin. Hemoccult was ordered and results are pending at this time. (Kym Haider) Objective Vitals I&O Vital Signs Date Time Temp Pulse Resp B/P Pulse Ox O2 Delivery O2 Flow Rate FiO2 09/24/16 07:36 96 45 09/24/16 06:00 95 09/24/16 04:00 45 09/24/16 04:00 102 09/24/16 04:00 98.7 102 27 140/66 92 09/24/16 03:56 92 45 09/24/16 02:00 89 09/24/16 00:00 93 09/24/16 00:00 45 09/24/16 00:00 98.7 93 24 134/65 94 09/23/16 23:00 95 45 09/23/16 22:00 96 09/23/16 20:31 94 45 09/23/16 20:00 45 09/23/16 20:00 90 09/23/16 20:00 98.6 90 24 131/63 95 09/23/16 18:00 109 09/23/16 17:24 21 09/23/16 16:00 45 09/23/16 16:00 123 09/23/16 16:00 98.9 111 29 161/72 94 09/23/16 15:18 93 35 09/23/16 14:00 100 09/23/16 12:33 93 45 I/O 09/23/16 09/23/16 09/23/16 09/24/16 09/24/16 09/24/16 07:00 15:00 23:00 07:00 15:00 23:00 Intake Total 726 ml 834 ml 549 ml 558 ml Output Total 70 ml 3550 ml 40 ml 60 ml Balance 656 ml -2716 ml 509 ml 498 ml IV Total 313 ml 379 ml 261 ml 262 ml Tube Feeding 293 ml 335 ml 288 ml 296 ml Tube Irrigant 120 ml 120 ml Output Urine Total 70 ml 50 ml 40 ml 60 ml Hemodialysis 3500 ml # Bowel Movements 1 1 1 2 Laboratory Laboratory Tests Test 09/24/16 06:13 White Blood Count 9.8 Red Blood Count 3.34 Hemoglobin 9.3 Hematocrit 28.5 Mean Corpuscular Volume 85.4 Mean Corpuscular Hemoglobin 27.9 Mean Corpuscular Hemoglobin 32.6 Concent Red Cell Distribution Width 20.0 Platelet Count 275 Mean Platelet Volume 8.4 Prothrombin Time 10.7 Prothromb Time International 1.0 Ratio Activated Partial 45.4 Thromboplast Time Date/Time Procedure Status Source Growth 09/24/16 07:45 Stool Occult Blood (BRITTANI) Received Stool Stool Pending 09/20/16 01:50 Stool Occult Blood (BRITTANI) - Final Complete Stool Stool HEMOCCULT NEGATIVE Imaging Last Impressions Chest X-Ray 09/23/16 0600 Signed Impressions: Service Date/Time: Friday, September 23, 2016 05:10 - CONCLUSION: Improving edema and effusions. Dejan Gill MD Catheter Placement X-Ray 09/20/16 0000 Signed Impressions: Service Date/Time: Tuesday, September 20, 2016 11:11 - CONCLUSION: Uncomplicated line placement as above. Beto Barbosa MD Renal Ultrasound 09/17/16 0000 Signed Impressions: Service Date/Time: Saturday, September 17, 2016 13:31 - CONCLUSION: Negative renal sonogram. Taco Davidson MD Upper Extremity Ultrasound 09/14/16 0000 Signed Impressions: Service Date/Time: August 08:32 - CONCLUSION: There is thrombus within the left subclavian and internal jugular veins. Danyel Escalante MD Lower Extremity Ultrasound 09/13/16 0000 Signed Impressions: Service Date/Time: Tuesday, September 13, 2016 22:33 - CONCLUSION: Normal examination. Leonides Mason MD Liver Ultrasound 09/08/16 0000 Signed Impressions: Service Date/Time: Thursday, September 08, 2016 08:45 - CONCLUSION: 1. Cholelithiasis with distended gallbladder. However, there are no associated findings present to diagnose acute cholecystitis. If there is persistent clinical concern for acute cholecystitis could evaluate for cystic duct obstruction with hepatobiliary scintigraphy. 2. Hepatomegaly with very heterogeneous echotexture and steatosis. Dejan Allison MD Gall Bladder Ultrasound 08/29/16 0000 Signed Impressions: Service Date/Time: Monday, August 29, 2016 15:21 - CONCLUSION: 1. Hepatomegaly with heterogeneous echotexture throughout the liver. 2. There is a large echogenic area near the neck of the gallbladder suggestive of a stone, but despite its large size, demonstrates no acoustic shadowing in any of the views. Taco Davidson MD CT Angiography 08/15/16 0000 Signed Impressions: Service Date/Time: Monday, August 15, 2016 02:33 - CONCLUSION: 1. No evidence for pulmonary embolism. 2. Multifocal consolidation greatest in the right lower lobe and associated adenopathy. Terry Estrada MD Physical Exam HEENT: Pupils equal and round. NECK: Neck is supple. Trachea midline. 8.0 perc Tracheostomy without exudate. Right SC hemodialysis catheter C/D/I CHEST: Course breath sounds CARDIAC: RRR ABDOMEN: Soft, obese; bowel sounds are present, but hypoactive. Peg site clean , dry, no redness or drainage. EXTREMITIES: No clubbing, cyanosis, or edema. SKIN: Normal; no rash; no jaundice. SENIOR JAVASCRIPT DEVELOPER: Awake, makes eye contact. Nods to questions. (Kym Haider) Assessment and Plan Plan ASSESSMENT: - Dysphagia, FEN. In ICU being treated for acute respiratory failure, CHF, pneumonia, hypothyroidism, and multiple electrolyte abnormalities. s/p peg tube placement, EGD showed erythematous gastritis. - GI bleed, Episode of rectal bleeding x 1. Hemoccult ordered, results pending. H/H stable, 9.3/28.5. APTT 45.4, PT 10.7, INR 1. Heparin on hold. PLAN: -Await results of Hemoccult -H/H stable, transfuse as needed -Consider Colonoscopy once stable, if Hemoccult positive -Further recommendations to follow based on the results of above. Patient seen and examined by Dr. Bowers and myself and this note is written on his behalf (Kym Haider) Physician Comments Patient seen and examined Continue with current supportive care Monitor labs If any further episodes of bleeding or a drop in hemoglobin we will consider evaluating with a sigmoidoscopy or colonoscopy At this point the patient does not appear to have active bleeding (Otis Bowers MD) Kym HaiderP Sep 24, 2016 12:28 Otis Bowers MD Sep 24, 2016 21:55
--- NOTE | 2016-09-24 14:14 | HHI.PR ---
Subjective Remarks Awake and on CPAP /PSV10/12 . FIO2 at 45 %. Has a GI bleed now.. Able to respond to questions. Objective Vital Signs Date Time Temp Pulse Resp B/P Pulse Ox O2 Delivery O2 Flow Rate FiO2 09/24/16 12:26 95 45 09/24/16 12:00 86 09/24/16 10:00 96 09/24/16 09:50 28 09/24/16 08:00 107 09/24/16 07:36 96 45 09/24/16 06:00 95 09/24/16 04:00 45 09/24/16 04:00 102 09/24/16 04:00 98.7 102 27 140/66 92 09/24/16 03:56 92 45 09/24/16 02:00 89 09/24/16 00:00 93 09/24/16 00:00 45 09/24/16 00:00 98.7 93 24 134/65 94 09/23/16 23:00 95 45 09/23/16 22:00 96 09/23/16 20:31 94 45 09/23/16 20:00 45 09/23/16 20:00 90 09/23/16 20:00 98.6 90 24 131/63 95 09/23/16 18:00 109 09/23/16 16:00 45 09/23/16 16:00 123 09/23/16 16:00 98.9 111 29 161/72 94 09/23/16 15:18 93 35 I/O 09/23/16 09/23/16 09/23/16 09/24/16 09/24/16 09/24/16 07:00 15:00 23:00 07:00 15:00 23:00 Intake Total 726 ml 834 ml 549 ml 558 ml Output Total 70 ml 3550 ml 40 ml 60 ml Balance 656 ml -2716 ml 509 ml 498 ml IV Total 313 ml 379 ml 261 ml 262 ml Tube Feeding 293 ml 335 ml 288 ml 296 ml Tube Irrigant 120 ml 120 ml Output Urine Total 70 ml 50 ml 40 ml 60 ml Hemodialysis 3500 ml # Bowel Movements 1 1 1 2 Result Diagram: 09/24/16 0613 09/23/16 0521 Objective Remarks This is an obese middle-aged white female who is lethargic. HEENT: Head normocephalic. Pupils react. Neck: No bruits, no thyroid enlargement, no lymphadenopathy. Chest: Decreased breath sounds.Occ wheeze heard. Few basal crackles. Heart: Heart sounds were regular. S1-S2 no murmur, no S3. Abdomen: Soft, benign. No masses, or tenderness. Bowel sounds are active. Extremities: 1 + edema ,but has a Diffuse excoriating rash . Neuro : Awake . Assessment and Plan Assessment and Plan IMPRESSION 1. Acute hypercapnic respiratory failure. 2. Pulmonary edema. 3. Drug rash 4. Obstructive sleep apnea syndrome 5. Hypertension 6. Hypothyroidism. 7. MIKE Plan : 1. Cont weaning vent with PSV /CPAP for 12 hrs. 2. Trach toilet and suctioning 3. Nebs qid , duoneb. 4. A/C rate 12, PEEP +10 after CPAP. 5. CBC,BMP 6. PT evaluation 7. Tube feeds at 50 CC 8. Dialysis in am. Abimael Beck MD Sep 24, 2016 14:14
--- NOTE | 2016-09-24 19:04 | HHI.CCPN ---
Subjective Remarks/Hospital Course 56-year-old morbidly obese female brought in the emergency department in respiratory distress. She was intubated by ER attending. She has been sick for about a week with symptoms consistent with UTI. She's had fevers and chills. She's been short of breath. She's had fatigue. She has had a cough and chest pain with coughing. The family reports that she's been delirious for the last 3 days. 08/15 Patient is sedated with Diprivan, Versed, Fentanyl and intubated. CTA chest showed no PE multifocal consolidation greatest in RLL. Tmax 100.6 08/16 Patient is sedated with Diprivan and Fentanyl. Afebrile. CXR this morning showed increase consolidation. 08/17 Patient remains sedated and intubated. T:100.4 On PRVC/AC RR 18, Tv 500, IT :1.0 PEEP:10, FIO2 75% 08/18 Remains sedated and intubated. Afebrile. CXR this morning unchanged bibasilar infiltrates and effusions. 08/19 Patient was placed on rotoprone bed last night for proning sedated with Diprivan, Versed and Fentnayl in addition she is on Nimbex. On PRVC/AC RR 20, TV 400, IT:1.1, PEEP:14 and FIO2 80%. Afebrile. 08/20 Patient remains sedated and intubated. Remains on PRVC/AC mode with improvements in her oxygenation on FIO2 50% from 80% yesterday and PEEP:12. 08/21 Patient remains sedated and intubated. On PRVC/AC mode with RR 20, TV 400, IT:1.1, PEEP: 12 and FIO2 50%. Afebrile. 08/22 No acute events overnight. Remains sedated, intubated and on Nimbex.. T: 99.8. On PRVC mode with PEP: 12, FIO2 50%. CXR from yesterday showed better aeration, RLL infiltrate unchanged. 08/23 Chest x-ray worsening. Methylprednisolone taper to twice a day by pulmonary. The patient's FiO2 was found to be 100% this a.m., will continue to wean. 08/24: 1 desat episode yesterday when supine. still remains prone now. no vasopressors. sedated and paralyzed. 08/25: flolan added yesterday. fio2 down to 60%. remained supine all night. still on neuromuscular blockade. net -500cc/24h. 08/26: good diuresis. remained supine. fio2 70%. weaning flolan. remains with significant respiratory support and high peep despite 6L diuresis overnight. Cr still stable. 08/27: continues with good diuresis. net negative 3L/24h. fio2 down to 55%. flolan off. still high peep. not ready for SBT. more agitated today. Cr remains stable despite aggressive diuresis. 08/28: diuresis continues. -3.3L/24h. spiked fever overnight with a jump in wbc to 16 this AM. fio2 60%, but her pulmonary improvements have plateaued at this point. still on peep 12. 08/29: net -1.7L/24h. Cr starting to rise. still spiking fevers despite vanc/ cefepime added yesterday. wbc continues to rise. clinically appears infected, although unclear source. peep 10, fio2 60%. will likely need trach. 08/30: net +800cc, but Cr downtrending. appears clinically euvolemic. fever curve downtrending. wbc downtrending. on 40% fio2, peep 8 today. still following commands. 08/31: failed SBT after only 45 minutes yesterday. intubated for > 2 weeks at this point. will attempt to pursue trach/peg today. will continue with pulmonary strengthening. daily SBTs. 09/01 CXR showing increasing bibasilar infiltrate. Failed C Pap trial in 5 minutes due to severe tachypnea. PEG tube today. Family has not decided on trach yet 09/02: Patient febrile to 101.1, CXR increased infiltrate Tmax Tmax 101.1. Currently 9.7 left upper lung and right lower lobe. Pancultured. Cefepime added today and one dose of vancomycin. Continues to fail C Pap trial due to tachypnea and respiratory distress 09/03: Remains hypoxemic on 75% oxygen with new pneumonia. Sputum culture 09/02/16 with GNR. Family agreeable for tracheostomy but patient is not stable at this point for trach 09/04: still on 70% fio2. still hypoxic. pneumonia persists. needs trach, but too unstable at this point. 09/05: remains on 75% fio2. pseudomonas sensitivities came back resistant to carbapenems, intermediate to levaquin. still spiking fevers. not clinically improving. wbc remains elevated. 09/06: Remains on 12 of PEEP and FiO2 75%. Zosyn and tobramycin started yesterday. WBC count trending down today 11.5 from 13.1. Remains heavily sedated for ventilator synchrony. MAXIMUM TEMPERATURE 100.3 09/07: Continues to spike fever. CXR unchanged. WBC count improving. PEEP 14. FiO2 60%. Will start IV Bumex 1mg IV q12 09/09: Tolerating tube feeds at goal. Afebrile. No documented bowel movement. Currently sedated on the ventilator 09/10: Tmax 99.7. Currently 99.4. No bowel movement yesterday. None document since 09/04. Arousable on the ventilator 09/11: Tmax 102.6. Currently 100. Positive BM. Arousable on the ventilator. Tolerating tube feeds. Central line changed yesterday. Plan for bronchoscopy at 1 PM. 09/12: Tmax 100.1. Currently afebrile. Follows commands today. Wiggles toes and give thumbs up appropriately. MRI brain canceled. Tolerating tube feeding with positive BM. Tracheostomy currently planned for . 09/13: Tmax 102. Again on sedation vacation falls commands by wiggling toes bilaterally and giving thumbs up bilaterally appropriate. Tolerating tube feeding with positive BM. Tracheostomy planned for tomorrow with Dr. Ortega. 09/14: Low grade fever. CXR showing more prominent infiltrate on the right lower lobe and left upper lobe. WBC trending up still in normal range. Patient is on 40% FiO2 but continues to fail CPAP due to tachypnea 09/15: Remains intubated sedated, unable to wean off the vent. Plan for tracheostomy today with Dr. Ortega. Continues to have low grade fever. CXR with persistent bibasilar infiltrates 09/16: Tmax 101.1. Currently 100.7. Awake and alert. Following commands. 09/17: Afebrile. Currently on PSV trial. Tolerating tube feeds. One bowel movement. Noted decreased urine output past 48 hours. Diuretics have been discontinued. This a.m. creatinine currently pending. 09/18: Afebrile. Adequate urine output yesterday but decreased 150 past 8 hours. Tolerating tube feeds. One bowel movement. Not tolerating PSV trials today. 09/19: Tmax 100.5. Urine output picking up. Tolerating tube feeds. No bowel movement 48 hours. Not tolerating PSV trials. 09/20: Diffuse drug morbilliform exanthem noted this a.m. Tmax 100.6. Urine output around 20 cc an hour. Not tolerating PSV trials. Possibly new right pleural effusion noted on chest x-ray. Will need hemodialysis 09/21: Tmax 100.6 currently 98.7. -4 L with hemodialysis yesterday and today. FiO2 to 60%. Tolerating tube feeds. Positive BM. Still requiring sedation 09/22: Afebrile. Tolerating tube feeds. Positive BM. 30 g per kilogram per minute of propofol. Tolerated PSV trials 3 hours today 09/23 HD today with 3.5 L removal. Tolerating CPAP for 8 hours, currently 45% with RSBI 45%. Subjective 09/24 Called by RN this morning for concern for bloody BMs. Placed heparin and warfarin on hold. Serial Hgb ordered. Hgb 9.3 -->8.6 and hemodynamically unchanged. Started on protonix drip. Heme stool is negative and now RN states she is concerned about the adequacy of specimen, so sending repeat. Had asked GI to see, however further workup will not be indicated if hemoccult is negative. Tolerating PSV 05/06 Objective Vital Signs Date Time Temp Pulse Resp B/P Pulse Ox O2 Delivery O2 Flow Rate FiO2 09/24/16 18:00 85 09/24/16 16:00 45 09/24/16 16:00 98.9 22 118/71 95 Intake and Output 09/23/16 09/23/16 09/24/16 08:00 16:00 00:00 Intake Total 726 ml 834 ml 549 ml Output Total 70 ml 3550 ml 40 ml Balance 656 ml -2716 ml 509 ml Result Diagram: 09/24/16 1353 09/23/16 0521 Other Results Microbiology Date/Time Procedure Status Source Growth 09/24/16 07:45 Stool Occult Blood (BRITTANI) - Final Complete Stool Stool HEMOCCULT NEGATIVE Imaging Last Impressions Chest X-Ray 09/21/16 0600 Signed Impressions: Service Date/Time: August 02:46 - CONCLUSION: No significant change of bilateral pulmonary infiltrates. Kieran Ford MD Catheter Placement X-Ray 09/20/16 Signed Impressions: Service Date/Time: Tuesday, September 20, 2016 11:11 - CONCLUSION: Uncomplicated line placement as above. Beto Barbosa MD Renal Ultrasound 09/17/16 0000 Signed Impressions: Service Date/Time: Saturday, September 17, 2016 13:31 - CONCLUSION: Negative renal sonogram. Taco Davidson MD Upper Extremity Ultrasound 09/14/16 0000 Signed Impressions: Service Date/Time: August 08:32 - CONCLUSION: There is thrombus within the left subclavian and internal jugular veins. Danyel Escalante MD Lower Extremity Ultrasound 09/13/16 0000 Signed Impressions: Service Date/Time: Tuesday, September 13, 2016 22:33 - CONCLUSION: Normal examination. Leonides Mason MD Liver Ultrasound 09/08/16 Signed Impressions: Service Date/Time: Thursday, September 08, 2016 08:45 - CONCLUSION: 1. Cholelithiasis with distended gallbladder. However, there are no associated findings present to diagnose acute cholecystitis. If there is persistent clinical concern for acute cholecystitis could evaluate for cystic duct obstruction with hepatobiliary scintigraphy. 2. Hepatomegaly with very heterogeneous echotexture and steatosis. Dejan Allison MD Gall Bladder Ultrasound 08/29/16 0000 Signed Impressions: Service Date/Time: Monday, August 29, 2016 15:21 - CONCLUSION: 1. Hepatomegaly with heterogeneous echotexture throughout the liver. 2. There is a large echogenic area near the neck of the gallbladder suggestive of a stone, but despite its large size, demonstrates no acoustic shadowing in any of the views. Taco Davidson MD CT Angiography 08/15/16 Signed Impressions: Service Date/Time: Monday, August 15, 2016 02:33 - CONCLUSION: 1. No evidence for pulmonary embolism. 2. Multifocal consolidation greatest in the right lower lobe and associated adenopathy. Terry Estrada MD Objective Remarks Drips: Propofol 20 g per KG per minute Protonix 8 mg per hour GENERAL: 56 yo female, sitting up in [facility] bed on CPAP via trach. SKIN: Warm and dry. Rash now dry, exfoliative. HEAD: Normocephalic. EYES: No scleral icterus. No injection or drainage. NECK: trachea midline. 8.0 perc Tracheostomy without exudate. Neck is obese. Right subclavian hemodialysis catheters clean dry and intact CARDIOVASCULAR: RRR. S1, S2 no S4 . No murmur RESPIRATORY: Appears reasonably comfortable on C Pap no accessory muscle use. Scattered rhonchi. GASTROINTESTINAL: Abdomen obese, soft, non-tender, hypoactive active bowel sounds. Tolerating tube feeds MUSCULOSKELETAL: Crinkling of bilateral lower extremities. 1+ edema BUE. Neuro: Awake, makes eye contact and nods to questions. Currently following commands moving upper and lower extremity spontaneously. Generally very weak, cannot lift BUE off bed. A/P Problem List: (1) ARDS (adult respiratory distress syndrome) ICD Code: J80 Status: Acute (2) CHF (congestive heart failure) ICD Code: I50.9 Status: Acute (3) Respiratory failure ICD Code: J96.90 Status: Acute (4) Pneumonia ICD Code: J18.9 Status: Acute Assessment and Plan Neuro/Psych: Critical illness associated weakness Acute toxic metabolic encephalopathy Agitated delirium Currently 10 mcg/kg/minute propofol. Discontinued fentanyl 09/20 secondary to rash Daily sedation vacation Continue Seroquel 50mg po q8h . Oxycodone 5 mg every 4 hours. Additional 5 mg q 4hours as needed in an effort to discontinue continuous sedation. . EEG 09/09 moderate to severe encephalopathy PT/OT. Ordering multipodus boots. Pulm: Acute hypercapnic and hypoxemic respiratory failure ARDS Pneumonia community-acquired, now with HCAP with carbapenem-resistant pseudomonas Probable JOE PSV/CPAP trials daily with slow weaning. 05/06 45%. Follow-up chest x-ray in a.m. Bronchodilator therapy every 4 hours and as needed ICU vent bundle. Pulm has followed- Dr. Beck Gen surgery Dr. Ortega status post percutaneous tracheostomy 09/15 CV: Hypertension Dyslipidemia Elevated troponin - likely strain Hypertensive . Metoprolol 12.5 mg by mouth twice a day Echo 08/14 showed EF 65-70% mild AR/TR Home medications HCTZ 12.5 milligrams daily currently on hold Home medication lovastatin 20 mg by mouth daily switched to Pravachol 20 mg a night. Renal/: Acute kidney injury - requiring hemodialysis Dr. Tan -nephrology following MIKE: ATN from sepsis syndrome and diminished renal perfusion ; also aminoglycoside induced nephrotoxicity likely also contributing; possibly AIN -> per nephrology note Urine eosinophils negative. Renal ultrasound revealed no hydronephrosis s/p exchange Miller with funguria Monitor renal function, I/O's. UOP ~ 200 /24 hours. Status post dialysis 09/20 and 09/21-4 L., -3.5 kg on 09/23. Appreciate nephrology assistance with ongoing fluid removal; she is slowly making progress towards vent weaning. GI: ?bloody stools Elevated transaminases Cholelithiasis Hemoccult stool pending Protonix drip. GI reconsulted, will scope if hemoccult positive. Monitor LFT's ( trending down), US liver: Fatty liver and cholelithiasis. Repeat 09/08 revealed cholelithiasis with no acute signs of cholecystitis. Recommend a HIDA scan if indicated On TF Nepro's 45 cc an hour and beneprotein 2 packs 3 times a day s/p PEG placement 09/01/[address] Ritter Pepcid 10 mg IV twice a day for GI prophylaxis Colace/Senokot for bowel regimen. Lactulose 30 cc daily added Having bowel movements ID: Pseudomonas pneumonia Funguria, Maribell glabrata and parapsilosis. Pertinent cultures blood and sputum cx 08/15- NG strep pneumonia and Legionella urinary Ag negative Blood cultures 08/28: NGTD C Diff negative 08/28. Lines changed 08/28. Sputum 08/30 - Pseudomonas Sputum 09/02 PSAE, resistant to carbapenem, intermediate to Levaquin. 09/07 - urine -Maribell Guilliermondii 09/07 - blood cultures 2 - no growth 09/09 - urine -strep veridians, Maribell parapsilosis 09/10 - blood cultures 2 -no growth 09/11 - broch washings -no growth to date 09/12 - urine -Maribell glabrata and parapsilosis 09/16 - blood cultures 2 - pending 09/16 - sputum -no growth 09/16 - urine -Maribell glabrata and parapsilosis Zosyn previously discontinued secondary to rash Has been off abx since 09/18 when ID discontinued Cefepime , tobramycin aerosols per infectious disease, diflucan, and Vfend. - ID following at a distance currently. Afebrile, no leukocytosis. 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 Warfarin started 09/23, holding anticoagulation now until determine if GI bleeding. Endo: Diabetes mellitus Hypothyroidism on SSI (medium scale) for glycemic control On Synthroid 200mcg daily. TSH 1.37 FEN: Hyperkalemia - resolved GI prophylaxis- Prevacid per tube. DVT prophylaxis Heparin SQ - Continue , SCDs Derm: Exanthem - morbilliform - resolved Discontinue fentanyl and Ativan allergy list. Now rash is dry, exfoliative. Moisturizer. Lines: Peripheral IV. - PEG 09/01/16 - Trach 09/15 - Right subclavian US catheter placed 09/20 by IR #5. Critical Care: Discussed with Dr. Beck. Significant other updated at bedside 09/24 and multiple questions answered. Discussed with Dr. Bowers evening of 09/24. He recommends resume heparin and monitor for bleeding. LEvel 3 followup Loree Marinelli, daughter (HCP): [phone] Rony Marinelli, significant other: [phone] Problem Qualifiers (1) CHF (congestive heart failure): Qualified Code: I50.9 - Acute congestive heart failure, unspecified congestive heart failure type (2) Respiratory failure: Qualified Code: J96.02 - Acute respiratory failure with hypercapnia (3) Pneumonia: Qualified Code: J18.9 - Pneumonia of both lungs due to infectious organism, unspecified part of lung Allegra Earl MD Sep 24, 2016 19:03
[2016-09-24] MEDS: PRAVASTATIN SOD 20 MG TAB PO SCH (20:39)
[2016-09-25] VITALS (17 sets, daily range): BP systolic 113–151; BP diastolic 57–70; PULSE 74–113; RESP 21–31; TEMP 98.5–99.2; O2SAT 94–98
[2016-09-25] MEDS: PROPOFOL 1000 MG/100 ML INJ 100 ML IV SCH ×5 (01:47→20:44)
[2016-09-25] MEDS: RESP: ALBUTEROL 2.5 MG/IPRATROPIUM 0.5 MG NEB (SCH) INH ×4 (03:09→21:16)
[2016-09-25] MEDS: CHLORHEXIDINE GLUCONATE 2 % 1 PACK (2 CLOTHS) TOP SCH (04:00)
[2016-09-25] MEDS: oxyCODONE HCL ORAL CONC 20 MG/ML SYRINGE G-TUBE SCH ×6 (04:16→23:33)
[2016-09-25] MEDS: PANTOPRAZOLE INJ 80 MG in SODIUM CHLORIDE 0.9% INJ 100 ML IV SCH ×3 (04:16→16:29)
--- NOTE | 2016-09-25 05:30 | RADRPT ---
EXAM DATE/TIME: 09/25/2016 04:36 [place] COMPARISON: CHEST SINGLE AP, September 23, 2016, 5:10. INDICATIONS : Shortness of breath, possible pulmonary disease. MEDICAL HISTORY : Congestive heart failure. SURGICAL HISTORY : None. ENCOUNTER: Subsequent ACUITY: 2 weeks PAIN SCORE: Non-responsive. LOCATION: Bilateral chest FINDINGS: The cardiac silhouette is enlarged in transverse diameter. A tracheostomy tube is in place in the mid line. There is prominence of the central pulmonary vasculature with indistinct vascular margins sabrina tible with vascular congestion but no evidence of overt failure. There has been no significant change when compared to the prior exam. A small right sided effusion is present. CONCLUSION: 1. Cardiomegaly and findings of vascular congestion without overt failure. Small right effusion 2. There has been no significant change when compared to the prior exam. Didier Zhang MD on September 25, 2016 at 5:28 Board Certified Radiologist. This report was verified electronically.
[2016-09-25] MEDS: METOCLOPRAMIDE HCL 10 MG/2 ML VIAL IV PUSH SCH ×3 (05:47→20:57)
[2016-09-25] MEDS: QUEtiapine FUMARATE 25 MG TAB PO SCH ×3 (05:47→20:58)
[2016-09-25] MEDS: LEVOTHYROXINE SODIUM 200 MCG TAB PO SCH (05:48)
[2016-09-25] MEDS: INSULIN NovoLIN REGULAR SUPPLEMENTAL SCALE SQ SCH ×3 (05:51→17:37)
[2016-09-25] MEDS: DOCUSATE SODIUM 100 MG/10 ML UDC PO SCH ×2 (09:00→20:43)
[2016-09-25] MEDS: SENNOSIDES SYRUP 8.8 MG/5 ML CUP PO SCH ×2 (09:00→20:43)
[2016-09-25] MEDS: POLYETHYLENE GLYCOL 17 GM PKG PO SCH (09:00)
[2016-09-25] MEDS: SODIUM CHLORIDE 0.9% FLUSH 10 ML FLUSH IVF SCH (09:00)
[2016-09-25] MEDS: BENEPROTEIN POWDER 1 PACK G-TUBE SCH ×3 (09:00→16:30)
[2016-09-25] MEDS: ARTIFICIAL TEARS OPTH SOLN 15 ML BTL EACH EYE SCH ×3 (10:01→16:30)
[2016-09-25] MEDS: SODIUM CHLORIDE 0.9% FLUSH 10 ML FLUSH IV FLUSH SCH ×2 (10:03→20:43)
[2016-09-25] MEDS: CALCIUM ACETATE 667 MG CAP PO SCH ×3 (10:04→16:29)
[2016-09-25] MEDS: FAMOTIDINE 20 MG/2 ML VIAL IV PUSH SCH ×2 (10:05→23:32)
[2016-09-25] MEDS: METOPROLOL TARTRATE 25 MG TAB G-TUBE SCH ×2 (10:05→20:43)
--- NOTE | 2016-09-25 10:06 | HHI.NPPN ---
Subjective General Problems: Edema, Hypotension, Obesity Renal Failure: Acute Interval History Remains on vent, on CPAP trial. Has had low grade fevers. Oliguric. (Genny Lowery) Review of Systems General General Remarks unable to evaluate (Genny Lowery) Objective Data Data 09/24/16 09/25/16 19:00 07:00 Intake Total 886 ml 916 ml Output Total 100 ml 140 ml Balance 786 ml 776 ml IV Total 357 ml 278 ml Tube Feeding 529 ml 458 ml Other 180 ml Output Urine Total 100 ml 140 ml # Bowel Movements 4 0 Vital Signs Date Time Temp Pulse Resp B/P Pulse Ox O2 Delivery O2 Flow Rate FiO2 09/25/16 07:29 97 45 09/25/16 07:29 45 09/25/16 06:00 79 09/25/16 04:00 45 09/25/16 04:00 96 45 09/25/16 04:00 99.0 76 22 135/61 96 09/25/16 04:00 76 09/25/16 02:00 74 09/25/16 00:40 97 45 09/25/16 00:00 82 09/25/16 00:00 99.2 82 21 151/70 98 09/25/16 00:00 45 09/24/16 22:00 80 09/24/16 20:00 90 09/24/16 20:00 45 09/24/16 20:00 99.6 90 22 145/69 95 09/24/16 19:45 96 45 09/24/16 18:00 85 09/24/16 16:00 82 09/24/16 16:00 45 09/24/16 16:00 98.9 85 22 118/71 95 09/24/16 14:30 96 45 09/24/16 14:00 88 09/24/16 13:18 22 09/24/16 12:26 95 45 09/24/16 12:00 45 09/24/16 12:00 86 09/24/16 12:00 99.2 86 23 113/57 96 09/24/16 10:00 96 (Genny Lowery) -: 09/25/16 0334 09/23/16 0521 Tubes & Lines: Miller Tubes & Lines Comment trach, PEG Drip Comment protonix, propofol (Genny Lowery) Physical Exam General Appearance: Well Developed, No Acute Distress, Comfortable, Obese (Genny Lowery) Throat Throat Exam: Oral Mucosa [place] & Moist (Genny Lowery) Neck Neck Exam: Neck Supple Neck Remarks trach (Genny LoweryP) Pulmonary Resp Remarks vented lung sounds (Genny Lowery) Cardiology CV Exam: Regular, Normal Sinus Rhythm (Genny Lowery) Gastrointestinal/Abdomen GI Exam: Soft, Bowel Sounds Present GI Remarks morbidly obese, + PEG infusing (Genny Lowery) Musculoskeletal MS Exam: Joints Intact, Good Strength, Unable to Ambulate (Genny Lowery) Integumentary Skin Exam: Warm, Dry Skin Remarks dry flaking skin (Genny Lowery) Extremeties Extremities Exam: Pedal Pulses Palpable, Moderate Edema, Pitting Edema ( Genny Lowery) Neurologic Neuro Exam: Unresponsive, Sedated (Genny Lowery) VTE Prophylaxis Device: SCDs (Genny Lowery) Assessment/Plan Assessment Summary: MIKE/Acute Renal Failure, Acute Tubular Necrosis, Hypotension Problem List: (1) Acute kidney injury Plan: In a pt with normal renal function at baseline MIKE: ATN from sepsis syndrome and diminished renal perfusion ; also aminoglycoside induced nephrotoxicity likely also contributing; possibly AIN HD initiated 09/20; currently on TTS schedule remains oliguric, No signs of renal recovery. daily renal panel continue PhosLo for hyperphosphatemia Avoid nephrotoxic agents. Avoid IVF Continue supportive care. (2) ARDS (adult respiratory distress syndrome) Plan: s/p trach placement continue Ventilator support: on CPAP trials Cement Breaker managing. (3) Pneumonia Plan: Pseudomonas in the sputum. ID following. monitor the pt clinically, she is currently off antibiotics afebrile today (4) Hypothyroidism Plan: on synthroid (5) Anemia Plan: suspected GI bleed heparin is off, she is on protonix gtt repeat stool for OB pending GI has been consulted (6) Morbid obesity Plan Prognosis is guarded. (Genny Lowery) Plan patient was seen and examined. Oliguric. Dialysis dependent. dialysis will be TTS. (Anshu Tan MD) Problem Qualifiers (1) Pneumonia: Qualified Code: J18.9 - Pneumonia of both lungs due to infectious organism, unspecified part of lung Genny Lowery September 25, 2016 10:06 Anshu Tan MD September 26, 2016 10:50
[2016-09-25 11:12] LABS: INTERNATIONAL NORMALIZED RATIO 0.9 RATIO; PROTHROMBIN TIME - PATIENT 10.3 SEC (9.8-11.6)
[2016-09-25 11:13] LABS: APTT (PATIENT) 26.7 SEC (24.3-30.1)
[2016-09-25] MEDS: HEPARIN-D5W 25,000 U/250 ML 250 ML IV SCH (11:59)
--- NOTE | 2016-09-25 12:25 | HHI.PR ---
Subjective Remarks Awake and on CPAP / PSV10/12 . FIO2 at 45 %. Hgb stable. Able to respond to questions. Objective Vital Signs Date Time Temp Pulse Resp B/P Pulse Ox O2 Delivery O2 Flow Rate FiO2 09/25/16 11:23 95 45 09/25/16 07:29 97 45 09/25/16 07:29 45 09/25/16 06:00 79 09/25/16 04:00 45 09/25/16 04:00 96 45 09/25/16 04:00 99.0 76 22 135/61 96 09/25/16 04:00 76 09/25/16 02:00 74 09/25/16 00:40 97 45 09/25/16 00:00 82 09/25/16 00:00 99.2 82 21 151/70 98 09/25/16 00:00 45 09/24/16 22:00 80 09/24/16 20:00 90 09/24/16 20:00 45 09/24/16 20:00 99.6 90 22 145/69 95 09/24/16 19:45 96 45 09/24/16 18:00 85 09/24/16 16:00 82 09/24/16 16:00 45 09/24/16 16:00 98.9 85 22 118/71 95 09/24/16 14:30 96 45 09/24/16 14:00 88 09/24/16 13:18 22 09/24/16 12:26 95 45 I/O 09/24/16 09/24/16 09/24/16 09/25/16 09/25/16 09/25/16 07:00 15:00 23:00 07:00 15:00 23:00 Intake Total 558 ml 886 ml 419 ml 497 ml Output Total 60 ml 100 ml 60 ml 80 ml Balance 498 ml 786 ml 359 ml 417 ml IV Total 262 ml 357 ml 106 ml 172 ml Tube Feeding 296 ml 529 ml 193 ml 265 ml Other 120 ml 60 ml Output Urine Total 60 ml 100 ml 60 ml 80 ml # Bowel Movements 2 4 0 0 Result Diagram: 09/25/16 0334 09/23/16 0521 Objective Remarks This is an obese middle-aged white female who is lethargic. HEENT: Head normocephalic. Pupils react. Neck: No bruits, no thyroid enlargement, no lymphadenopathy. Chest: Decreased breath sounds. Few basal crackles. Heart: Heart sounds were regular. S1-S2 no murmur, no S3. Abdomen: Soft, benign. No masses, or tenderness. Bowel sounds are active. Extremities: 1 + edema . Neuro :Moves feet Awake . Assessment and Plan Assessment and Plan IMPRESSION 1. Acute hypercapnic respiratory failure. 2. Pulmonary edema. 3. Drug rash 4. Obstructive sleep apnea syndrome 5. Hypertension 6. Hypothyroidism. 7. MIKE Plan : 1. Cont weaning vent with PSV /CPAP , FIO2 45 % for 12 hrs. 2. Trach toilet and suctioning 3. Nebs qid , duoneb. 4. A/C rate 12, PEEP +10 after CPAP. 5. CBC,BMP. 6. PT evaluation 7. Tube feeds at 50 CC 8. Dialysis in am. Abimael Beck MD September 25, 2016 12:25
--- NOTE | 2016-09-25 13:55 | HHI.GIFU ---
Subjective Remarks Pt on vent. Per RN no sign of bleeding. (Maria Isabel Wayne) Objective Vitals I&O Vital Signs Date Time Temp Pulse Resp B/P Pulse Ox O2 Delivery O2 Flow Rate FiO2 09/25/16 11:23 95 45 09/25/16 07:29 97 45 09/25/16 07:29 45 09/25/16 06:00 79 09/25/16 04:00 45 09/25/16 04:00 96 45 09/25/16 04:00 99.0 76 22 135/61 96 09/25/16 04:00 76 09/25/16 02:00 74 09/25/16 00:40 97 45 09/25/16 00:00 82 09/25/16 00:00 99.2 82 21 151/70 98 09/25/16 00:00 45 09/24/16 22:00 80 09/24/16 20:00 90 09/24/16 20:00 45 09/24/16 20:00 99.6 90 22 145/69 95 09/24/16 19:45 96 45 09/24/16 18:00 85 09/24/16 16:00 82 09/24/16 16:00 45 09/24/16 16:00 98.9 85 22 118/71 95 09/24/16 14:30 96 45 09/24/16 14:00 88 I/O 09/24/16 09/24/16 09/24/16 09/25/16 09/25/16 09/25/16 07:00 15:00 23:00 07:00 15:00 23:00 Intake Total 558 ml 886 ml 419 ml 497 ml Output Total 60 ml 100 ml 60 ml 80 ml Balance 498 ml 786 ml 359 ml 417 ml IV Total 262 ml 357 ml 106 ml 172 ml Tube Feeding 296 ml 529 ml 193 ml 265 ml Other 120 ml 60 ml Output Urine Total 60 ml 100 ml 60 ml 80 ml # Bowel Movements 2 4 0 0 Laboratory Laboratory Tests Test 09/24/16 09/24/16 09/25/16 09/25/16 13:53 21:27 03:34 10:18 Hemoglobin 8.6 8.6 8.4 Prothrombin Time 10.3 Prothromb Time International 0.9 Ratio Activated Partial 26.7 Thromboplast Time Date/Time Procedure Status Source Growth 09/24/16 07:45 Stool Occult Blood (BRITTANI) - Final Complete Stool Stool HEMOCCULT NEGATIVE Imaging Last Impressions Chest X-Ray 09/25/16 0600 Signed Impressions: Service Date/Time: Sunday, September 25, 2016 04:36 - CONCLUSION: 1. Cardiomegaly and findings of vascular congestion without overt failure. Small right effusion 2. There has been no significant change when compared to the prior exam. Didier Zhang MD Catheter Placement X-Ray 09/20/16 0000 Signed Impressions: Service Date/Time: Tuesday, September 20, 2016 11:11 - CONCLUSION: Uncomplicated line placement as above. Beto Barbosa MD Renal Ultrasound 09/17/16 0000 Signed Impressions: Service Date/Time: Saturday, September 17, 2016 13:31 - CONCLUSION: Negative renal sonogram. Taco Davidson MD Upper Extremity Ultrasound 09/14/16 0000 Signed Impressions: Service Date/Time: August 08:32 - CONCLUSION: There is thrombus within the left subclavian and internal jugular veins. Danyel Escalante MD Lower Extremity Ultrasound 09/13/16 0000 Signed Impressions: Service Date/Time: Tuesday, September 13, 2016 22:33 - CONCLUSION: Normal examination. Leonides Mason MD Liver Ultrasound 09/08/16 0000 Signed Impressions: Service Date/Time: Thursday, September 08, 2016 08:45 - CONCLUSION: 1. Cholelithiasis with distended gallbladder. However, there are no associated findings present to diagnose acute cholecystitis. If there is persistent clinical concern for acute cholecystitis could evaluate for cystic duct obstruction with hepatobiliary scintigraphy. 2. Hepatomegaly with very heterogeneous echotexture and steatosis. Dejan Allison MD Gall Bladder Ultrasound 08/29/16 0000 Signed Impressions: Service Date/Time: Monday, August 29, 2016 15:21 - CONCLUSION: 1. Hepatomegaly with heterogeneous echotexture throughout the liver. 2. There is a large echogenic area near the neck of the gallbladder suggestive of a stone, but despite its large size, demonstrates no acoustic shadowing in any of the views. Taco Davidson MD CT Angiography 08/15/16 0000 Signed Impressions: Service Date/Time: Monday, August 15, 2016 02:33 - CONCLUSION: 1. No evidence for pulmonary embolism. 2. Multifocal consolidation greatest in the right lower lobe and associated adenopathy. Terry Estrada MD Physical Exam HEENT: Pupils equal and round. vent to trach CHEST: Course breath sounds CARDIAC: RRR ABDOMEN: Soft, obese; bowel sounds hypoactive. Peg site clean, dry, no redness or drainage. EXTREMITIES: No clubbing, cyanosis, or edema. SKIN: macular rash SERVICES CLERK: unresponsive (Maria Isabel Wayne) Assessment and Plan Plan ASSESSMENT: - Dysphagia, FEN. In ICU being treated for acute respiratory failure, CHF, pneumonia, hypothyroidism, and multiple electrolyte abnormalities. s/p peg tube placement, EGD showed erythematous gastritis. - GI bleed, Episode of rectal bleeding x 1. Hemoccult negative Hgb stable, 8.4 PLAN: -H/H stable, hemoccult neg, transfuse as needed - supportive care - monitor HH Patient seen and examined by Dr. Garcia and myself and this note is written on his behalf (Maria Isabel Wayne) Physician Comments Seen and examined with MACHINIST INSTRUCTOR, no active bleeding reported. MOnitor labs. Colonoscopy when stable or if active bleeding. TF as tolerated. Will sign off, reconsult as needed. Thank you (Kat Garcia MD) Maria Isabel Wayne September 25, 2016 13:55 Kat Garcia MD September 25, 2016 18:23
--- NOTE | 2016-09-25 18:41 | HHI.CCPN ---
Subjective Remarks/Hospital Course 56-year-old morbidly obese female brought in the emergency department in respiratory distress. She was intubated by ER attending. She has been sick for about a week with symptoms consistent with UTI. She's had fevers and chills. She's been short of breath. She's had fatigue. She has had a cough and chest pain with coughing. The family reports that she's been delirious for the last 3 days. 08/15 Patient is sedated with Diprivan, Versed, Fentanyl and intubated. CTA chest showed no PE multifocal consolidation greatest in RLL. Tmax 100.6 08/16 Patient is sedated with Diprivan and Fentanyl. Afebrile. CXR this morning showed increase consolidation. 08/17 Patient remains sedated and intubated. T:100.4 On PRVC/AC RR 18, Tv 500, IT :1.0 PEEP:10, FIO2 75% 08/18 Remains sedated and intubated. Afebrile. CXR this morning unchanged bibasilar infiltrates and effusions. 08/19 Patient was placed on rotoprone bed last night for proning sedated with Diprivan, Versed and Fentnayl in addition she is on Nimbex. On PRVC/AC RR 20, TV 400, IT:1.1, PEEP:14 and FIO2 80%. Afebrile. 08/20 Patient remains sedated and intubated. Remains on PRVC/AC mode with improvements in her oxygenation on FIO2 50% from 80% yesterday and PEEP:12. 08/21 Patient remains sedated and intubated. On PRVC/AC mode with RR 20, TV 400, IT:1.1, PEEP: 12 and FIO2 50%. Afebrile. 08/22 No acute events overnight. Remains sedated, intubated and on Nimbex.. T: 99.8. On PRVC mode with PEP: 12, FIO2 50%. CXR from yesterday showed better aeration, RLL infiltrate unchanged. 08/23 Chest x-ray worsening. Methylprednisolone taper to twice a day by pulmonary. The patient's FiO2 was found to be 100% this a.m., will continue to wean. 08/24: 1 desat episode yesterday when supine. still remains prone now. no vasopressors. sedated and paralyzed. 08/25: flolan added yesterday. fio2 down to 60%. remained supine all night. still on neuromuscular blockade. net -500cc/24h. 08/26: good diuresis. remained supine. fio2 70%. weaning flolan. remains with significant respiratory support and high peep despite 6L diuresis overnight. Cr still stable. 08/27: continues with good diuresis. net negative 3L/24h. fio2 down to 55%. flolan off. still high peep. not ready for SBT. more agitated today. Cr remains stable despite aggressive diuresis. 08/28: diuresis continues. -3.3L/24h. spiked fever overnight with a jump in wbc to 16 this AM. fio2 60%, but her pulmonary improvements have plateaued at this point. still on peep 12. 08/29: net -1.7L/24h. Cr starting to rise. still spiking fevers despite vanc/ cefepime added yesterday. wbc continues to rise. clinically appears infected, although unclear source. peep 10, fio2 60%. will likely need trach. 08/30: net +800cc, but Cr downtrending. appears clinically euvolemic. fever curve downtrending. wbc downtrending. on 40% fio2, peep 8 today. still following commands. 08/31: failed SBT after only 45 minutes yesterday. intubated for > 2 weeks at this point. will attempt to pursue trach/peg today. will continue with pulmonary strengthening. daily SBTs. 09/01 CXR showing increasing bibasilar infiltrate. Failed C Pap trial in 5 minutes due to severe tachypnea. PEG tube today. Family has not decided on trach yet 09/02: Patient febrile to 101.1, CXR increased infiltrate Tmax Tmax 101.1. Currently 9.7 left upper lung and right lower lobe. Pancultured. Cefepime added today and one dose of vancomycin. Continues to fail C Pap trial due to tachypnea and respiratory distress 09/03: Remains hypoxemic on 75% oxygen with new pneumonia. Sputum culture 09/02/16 with GNR. Family agreeable for tracheostomy but patient is not stable at this point for trach 09/04: still on 70% fio2. still hypoxic. pneumonia persists. needs trach, but too unstable at this point. 09/05: remains on 75% fio2. pseudomonas sensitivities came back resistant to carbapenems, intermediate to levaquin. still spiking fevers. not clinically improving. wbc remains elevated. 09/06: Remains on 12 of PEEP and FiO2 75%. Zosyn and tobramycin started yesterday. WBC count trending down today 11.5 from 13.1. Remains heavily sedated for ventilator synchrony. MAXIMUM TEMPERATURE 100.3 09/07: Continues to spike fever. CXR unchanged. WBC count improving. PEEP 14. FiO2 60%. Will start IV Bumex 1mg IV q12 09/09: Tolerating tube feeds at goal. Afebrile. No documented bowel movement. Currently sedated on the ventilator 09/10: Tmax 99.7. Currently 99.4. No bowel movement yesterday. None document since 09/04. Arousable on the ventilator 09/11: Tmax 102.6. Currently 100. Positive BM. Arousable on the ventilator. Tolerating tube feeds. Central line changed yesterday. Plan for bronchoscopy at 1 PM. 09/12: Tmax 100.1. Currently afebrile. Follows commands today. Wiggles toes and give thumbs up appropriately. MRI brain canceled. Tolerating tube feeding with positive BM. Tracheostomy currently planned for . 09/13: Tmax 102. Again on sedation vacation falls commands by wiggling toes bilaterally and giving thumbs up bilaterally appropriate. Tolerating tube feeding with positive BM. Tracheostomy planned for tomorrow with Dr. Ortega. 09/14: Low grade fever. CXR showing more prominent infiltrate on the right lower lobe and left upper lobe. WBC trending up still in normal range. Patient is on 40% FiO2 but continues to fail CPAP due to tachypnea 09/15: Remains intubated sedated, unable to wean off the vent. Plan for tracheostomy today with Dr. Ortega. Continues to have low grade fever. CXR with persistent bibasilar infiltrates 09/16: Tmax 101.1. Currently 100.7. Awake and alert. Following commands. 09/17: Afebrile. Currently on PSV trial. Tolerating tube feeds. One bowel movement. Noted decreased urine output past 48 hours. Diuretics have been discontinued. This a.m. creatinine currently pending. 09/18: Afebrile. Adequate urine output yesterday but decreased 150 past 8 hours. Tolerating tube feeds. One bowel movement. Not tolerating PSV trials today. 09/19: Tmax 100.5. Urine output picking up. Tolerating tube feeds. No bowel movement 48 hours. Not tolerating PSV trials. 09/20: Diffuse drug morbilliform exanthem noted this a.m. Tmax 100.6. Urine output around 20 cc an hour. Not tolerating PSV trials. Possibly new right pleural effusion noted on chest x-ray. Will need hemodialysis 09/21: Tmax 100.6 currently 98.7. -4 L with hemodialysis yesterday and today. FiO2 to 60%. Tolerating tube feeds. Positive BM. Still requiring sedation 09/22: Afebrile. Tolerating tube feeds. Positive BM. 30 g per kilogram per minute of propofol. Tolerated PSV trials 3 hours today 09/23 HD today with 3.5 L removal. Tolerating CPAP for 8 hours, currently 45% with RSBI 45%. 09/24 Called by RN this morning for concern for bloody BMs. Placed heparin and warfarin on hold. Serial Hgb ordered. Hgb 9.3 -->8.6 and hemodynamically unchanged. Started on protonix drip. Heme stool is negative and now RN states she is concerned about the adequacy of specimen, so sending repeat. Had asked GI to see, however further workup will not be indicated if hemoccult is negative. Tolerating PSV 05/06 Subjective 09/25: heparin restarted. hemocult negative x 2. Objective Vital Signs Date Time Temp Pulse Resp B/P Pulse Ox O2 Delivery O2 Flow Rate FiO2 09/25/16 16:47 96 45 09/25/16 16:00 83 09/25/16 16:00 99.2 31 113/63 Intake and Output 09/24/16 09/24/16 09/25/16 08:00 16:00 00:00 Intake Total 558 ml 886 ml 419 ml Output Total 60 ml 100 ml 60 ml Balance 498 ml 786 ml 359 ml Result Diagram: 09/25/16 1555 09/23/16 0521 Other Results Microbiology Date/Time Procedure Status Source Growth 09/24/16 07:45 Stool Occult Blood (BRITTANI) - Final Complete Stool Stool HEMOCCULT NEGATIVE Imaging Last Impressions Chest X-Ray 09/21/16 0600 Signed Impressions: Service Date/Time: August 02:46 - CONCLUSION: No significant change of bilateral pulmonary infiltrates. Kieran Ford MD Catheter Placement X-Ray 09/20/16 0000 Signed Impressions: Service Date/Time: Tuesday, September 20, 2016 11:11 - CONCLUSION: Uncomplicated line placement as above. Beto Barbosa MD Renal Ultrasound 09/17/16 0000 Signed Impressions: Service Date/Time: Saturday, September 17, 2016 13:31 - CONCLUSION: Negative renal sonogram. Taco Davidson MD Upper Extremity Ultrasound 09/14/16 0000 Signed Impressions: Service Date/Time: August 08:32 - CONCLUSION: There is thrombus within the left subclavian and internal jugular veins. Danyel Escalante MD Lower Extremity Ultrasound 09/13/16 0000 Signed Impressions: Service Date/Time: Tuesday, September 13, 2016 22:33 - CONCLUSION: Normal examination. Leonides Mason MD Liver Ultrasound 09/08/16 0000 Signed Impressions: Service Date/Time: Thursday, September 08, 2016 08:45 - CONCLUSION: 1. Cholelithiasis with distended gallbladder. However, there are no associated findings present to diagnose acute cholecystitis. If there is persistent clinical concern for acute cholecystitis could evaluate for cystic duct obstruction with hepatobiliary scintigraphy. 2. Hepatomegaly with very heterogeneous echotexture and steatosis. Dejan Allison MD Gall Bladder Ultrasound 08/29/16 0000 Signed Impressions: Service Date/Time: Monday, August 29, 2016 15:21 - CONCLUSION: 1. Hepatomegaly with heterogeneous echotexture throughout the liver. 2. There is a large echogenic area near the neck of the gallbladder suggestive of a stone, but despite its large size, demonstrates no acoustic shadowing in any of the views. Taco Davidson MD CT Angiography 08/15/16 0000 Signed Impressions: Service Date/Time: Monday, August 15, 2016 02:33 - CONCLUSION: 1. No evidence for pulmonary embolism. 2. Multifocal consolidation greatest in the right lower lobe and associated adenopathy. Terry Estrada MD Objective Remarks GENERAL: 56 yo female on CPAP via trach. SKIN: Warm and dry. HEAD: Normocephalic. EYES: No scleral icterus. No injection or drainage. NECK: trachea midline. 8.0 perc Tracheostomy without exudate. Neck is obese. Right subclavian hemodialysis catheters clean dry and intact CARDIOVASCULAR: RRR. S1, S2 no S4 . No murmur RESPIRATORY: Appears reasonably comfortable on C Pap no accessory muscle use. Scattered rhonchi. GASTROINTESTINAL: Abdomen obese, soft, non-tender, hypoactive active bowel sounds. Tolerating tube feeds MUSCULOSKELETAL: Crinkling of bilateral lower extremities. 1+ edema BUE. Neuro: Awake, makes eye contact and nods to questions. Currently following commands moving upper and lower extremity spontaneously. Generally very weak, cannot lift BUE off bed. A/P Problem List: (1) ARDS (adult respiratory distress syndrome) ICD Code: J80 Status: Acute (2) CHF (congestive heart failure) ICD Code: I50.9 Status: Acute (3) Respiratory failure ICD Code: J96.90 Status: Acute (4) Pneumonia ICD Code: J18.9 Status: Acute Assessment and Plan Neuro/Psych: Critical illness associated weakness Acute toxic metabolic encephalopathy Agitated delirium start haldol 5mg iv q4h prn Daily sedation vacation Continue Seroquel 50mg po q8h . Oxycodone 5 mg every 4 hours. Additional 5 mg q 4hours as needed in an effort to discontinue continuous sedation. . EEG 09/09 moderate to severe encephalopathy PT/OT. Ordering multipodus boots. Pulm: Acute hypercapnic and hypoxemic respiratory failure ARDS Pneumonia community-acquired, now with HCAP with carbapenem-resistant pseudomonas Probable JOE PSV/CPAP trials daily with slow weaning. 05/06 45%. Bronchodilator therapy every 4 hours and as needed ICU vent bundle. Pulm has followed- Dr. Beck Gen surgery Dr. Ortega status post percutaneous tracheostomy 09/15 OOB to stretcher chair daily. CV: Hypertension Dyslipidemia Elevated troponin - likely strain Hypertensive . Metoprolol 12.5 mg by mouth twice a day Echo 08/14 showed EF 65-70% mild AR/TR Home medications HCTZ 12.5 milligrams daily currently on hold Home medication lovastatin 20 mg by mouth daily switched to Pravachol 20 mg a night. Renal/: Acute kidney injury - requiring hemodialysis Dr. Hoskote -nephrology following MIKE: ATN from sepsis syndrome and diminished renal perfusion ; also aminoglycoside induced nephrotoxicity likely also contributing; possibly AIN -> per nephrology note Urine eosinophils negative. Renal ultrasound revealed no hydronephrosis s/p exchange Miller with funguria Monitor renal function, I/O's. UOP ~ 200 /24 hours. Status post dialysis 09/20 and 09/21-4 L., -3.5 kg on 09/23. Appreciate nephrology assistance with ongoing fluid removal; she is slowly making progress towards vent weaning. GI: ?bloody stools Elevated transaminases Cholelithiasis Hemoccult stool pending Protonix drip. GI reconsulted, will scope if hemoccult positive. Monitor LFT's ( trending down), US liver: Fatty liver and cholelithiasis. Repeat 09/08 revealed cholelithiasis with no acute signs of cholecystitis. Recommend a HIDA scan if indicated On TF Nepro's 45 cc an hour and beneprotein 2 packs 3 times a day s/p PEG placement 09/01/[address] Ritter Pepcid 10 mg IV twice a day for GI prophylaxis Colace/Senokot for bowel regimen. Lactulose 30 cc daily added Having bowel movements ID: Pseudomonas pneumonia Funguria, Maribell glabrata and parapsilosis. Pertinent cultures blood and sputum cx 08/15- NG strep pneumonia and Legionella urinary Ag negative Blood cultures 08/28: NGTD C Diff negative 08/28. Lines changed 08/28. Sputum 08/30 - Pseudomonas Sputum 09/02 PSAE, resistant to carbapenem, intermediate to Levaquin. 09/07 - urine -Maribell Guilliermondii 09/07 - blood cultures 2 - no growth 09/09 - urine -strep veridians, Maribell parapsilosis 09/10 - blood cultures 2 -no growth 09/11 - broch washings -no growth to date 09/12 - urine -Maribell glabrata and parapsilosis 09/16 - blood cultures 2 - pending 09/16 - sputum -no growth 09/16 - urine -Maribell glabrata and parapsilosis Zosyn previously discontinued secondary to rash Has been off abx since 09/18 when ID discontinued Cefepime , tobramycin aerosols per infectious disease, diflucan, and Vfend. - ID following at a distance currently. Afebrile, no leukocytosis. 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 Warfarin started 09/23 Endo: Diabetes mellitus Hypothyroidism on SSI (medium scale) for glycemic control On Synthroid 200mcg daily. TSH 1.37 FEN: Hyperkalemia - resolved GI prophylaxis- Prevacid per tube. DVT prophylaxis Heparin SQ - Continue , SCDs Lines: Peripheral IV. - PEG 09/01/16 - Trach 09/15 - Right subclavian US catheter placed 09/20 by IR. Critical Care: Discussed with Dr. Beck. Significant other updated at bedside 09/24 and multiple questions answered. Discussed with Dr. Bowers evening of 09/24. He recommends resume heparin and monitor for bleeding. Loree Marinelli, daughter (HCP): [phone] Rony Marinelli, significant other: [phone] Problem Qualifiers (1) CHF (congestive heart failure): Qualified Code: I50.9 - Acute congestive heart failure, unspecified congestive heart failure type (2) Respiratory failure: Qualified Code: J96.02 - Acute respiratory failure with hypercapnia (3) Pneumonia: Qualified Code: J18.9 - Pneumonia of both lungs due to infectious organism, unspecified part of lung Tutu Hoffman MD September 25, 2016 18:41
[2016-09-25] MEDS ORDERED: HALOPERIDOL LACTATE 5 MG/ML AMP IV PRN (19:00)
[2016-09-25 19:27] LABS: APTT (PATIENT) 33.3 SEC (24.3-30.1)
[2016-09-25] MEDS: PRAVASTATIN SOD 20 MG TAB PO SCH (20:43)
[2016-09-26] VITALS (17 sets, daily range): BP systolic 109–135; BP diastolic 53–69; PULSE 90–104; RESP 20–31; TEMP 98.4–101.5; O2SAT 90–95
[2016-09-26] MEDS: HEPARIN-D5W 25,000 U/250 ML 250 ML IV SCH ×2 (01:31→13:49)
[2016-09-26] MEDS: PANTOPRAZOLE INJ 80 MG in SODIUM CHLORIDE 0.9% INJ 100 ML IV SCH (01:31)
[2016-09-26] MEDS: RESP: ALBUTEROL 2.5 MG/IPRATROPIUM 0.5 MG NEB (SCH) INH ×4 (03:51→20:04)
[2016-09-26] MEDS: CHLORHEXIDINE GLUCONATE 2 % 1 PACK (2 CLOTHS) TOP SCH (04:00)
[2016-09-26] MEDS: oxyCODONE HCL ORAL CONC 20 MG/ML SYRINGE G-TUBE SCH ×5 (04:04→20:29)
[2016-09-26 04:43] LABS: HEMATOCRIT 25.6 % (35.0-46.0); MEAN CORPUSCULAR HEMOGLOBIN 28.1 PG (27.0-34.0); PLATELET COUNT 256 TH/MM3 (150-450); RED BLOOD COUNT 3.01 MIL/MM3 (4.00-5.30); RED CELL DISTRIBUTION WIDTH 19.5 % (11.6-17.2); REVIEW FLAG FINAL; WHITE BLOOD COUNT 12.4 TH/MM3 (4.0-11.0)
[2016-09-26 04:52] LABS: APTT (PATIENT) 34.9 SEC (24.3-30.1); INTERNATIONAL NORMALIZED RATIO 0.9 RATIO; PROTHROMBIN TIME - PATIENT 10.3 SEC (9.8-11.6)
[2016-09-26] MEDS: QUEtiapine FUMARATE 25 MG TAB PO SCH ×3 (05:10→20:33)
[2016-09-26] MEDS: METOCLOPRAMIDE HCL 10 MG/2 ML VIAL IV PUSH SCH ×3 (05:10→20:32)
[2016-09-26] MEDS: LEVOTHYROXINE SODIUM 200 MCG TAB PO SCH (05:10)
[2016-09-26 05:14] LABS: BICARBONATE 23.6 MEQ/L (21.0-32.0); POTASSIUM 5.5 MEQ/L (3.5-5.1)
[2016-09-26] MEDS: INSULIN NovoLIN REGULAR SUPPLEMENTAL SCALE SQ SCH ×3 (05:29→11:42)
[2016-09-26] MEDS: PROPOFOL 1000 MG/100 ML INJ 100 ML IV SCH ×3 (06:13→20:28)
[2016-09-26] MEDS: METOPROLOL TARTRATE 25 MG TAB G-TUBE SCH ×2 (08:34→20:30)
[2016-09-26] MEDS: BENEPROTEIN POWDER 1 PACK G-TUBE SCH ×3 (08:37→16:31)
[2016-09-26] MEDS: ARTIFICIAL TEARS OPTH SOLN 15 ML BTL EACH EYE SCH ×3 (08:37→16:31)
[2016-09-26] MEDS: SODIUM CHLORIDE 0.9% FLUSH 10 ML FLUSH IV FLUSH SCH ×2 (08:38→20:31)
[2016-09-26] MEDS: SODIUM CHLORIDE 0.9% FLUSH 10 ML FLUSH IVF SCH (08:38)
[2016-09-26] MEDS: DOCUSATE SODIUM 100 MG/10 ML UDC PO SCH ×2 (08:39→20:31)
[2016-09-26] MEDS: POLYETHYLENE GLYCOL 17 GM PKG PO SCH (08:39)
[2016-09-26] MEDS: SENNOSIDES SYRUP 8.8 MG/5 ML CUP PO SCH ×2 (08:40→20:31)
[2016-09-26] MEDS: CALCIUM ACETATE 667 MG CAP PO SCH ×3 (08:40→16:31)
[2016-09-26] MEDS: GENTAMICIN SULFATE (DIALYSIS USE ONLY) 20 MG/2 ML VIAL IV PRN (08:59)
[2016-09-26] MEDS: HEPARIN SODIUM - IV 10,000 UNITS/10 ML VIAL PRN (08:59)
[2016-09-26] MEDS: SODIUM CHLOR 0.9% 1000 ML INJ 1,000 ML IV PRN (08:59)
[2016-09-26] MEDS: ALBUMIN HUMAN 25% 25 GM/100 ML BAGP IV PRN ×2 (09:03→09:32)
--- NOTE | 2016-09-26 10:21 | HHI.NPPN ---
Subjective General Problems: Edema, Hypotension, Obesity Renal Failure: Acute Interval History Seen during dialysis. Oliguric but urine output appears to be increasing. ( Genny Lowery) Review of Systems General General Remarks unable to evaluate (Genny Lowery) Objective Data Data 09/25/16 09/26/16 19:00 07:00 Intake Total 776 ml 1647 ml Output Total 150 ml 230 ml Balance 626 ml 1417 ml Intake Oral 0 ml IV Total 296 ml 739 ml Tube Feeding 420 ml 668 ml Other 60 ml 240 ml Output Urine Total 150 ml 230 ml # Bowel Movements 0 0 Vital Signs Date Time Temp Pulse Resp B/P Pulse Ox O2 Delivery O2 Flow Rate FiO2 09/26/16 08:09 94 40 09/26/16 08:00 101.5 100 28 133/68 93 09/26/16 08:00 45 09/26/16 06:00 100 09/26/16 04:20 92 40 09/26/16 04:00 98.4 102 20 126/61 92 09/26/16 04:00 102 09/26/16 04:00 45 09/26/16 02:00 97 09/26/16 00:16 95 40 09/26/16 00:00 98.7 95 23 135/69 95 09/26/16 00:00 95 09/26/16 00:00 45 09/25/16 22:00 113 09/25/16 21:11 95 40 09/25/16 20:00 45 09/25/16 20:00 79 09/25/16 20:00 98.9 79 27 118/59 95 09/25/16 18:00 80 09/25/16 16:47 96 45 09/25/16 16:00 83 09/25/16 16:00 99.2 83 31 113/63 94 09/25/16 16:00 45 09/25/16 14:00 86 09/25/16 12:00 98.8 85 29 120/57 96 09/25/16 12:00 85 09/25/16 12:00 45 09/25/16 11:23 95 45 (Genny Lowery) -: 09/26/16 0413 09/26/16 0413 Tubes & Lines: Miller Tubes & Lines Comment trach, PEG Drip Comment protonix, propofol (Genny Lowery. MISDRAW HAND) Physical Exam General Appearance: Well Developed, No Acute Distress, Comfortable, Obese (Genny Lowery MISDRAW HAND) Throat Throat Exam: Oral Mucosa [place] & Moist (Genny Lowery MISDRAW HAND) Neck Neck Exam: Neck Supple Neck Remarks trach (Genny Lowery. MISDRAW HAND) Pulmonary Resp Remarks vented lung sounds (Genny Lowery MISDRAW HAND) Cardiology CV Exam: Regular, Normal Sinus Rhythm (Genny Lowery MISDRAW HAND) Gastrointestinal/Abdomen GI Exam: Soft, Bowel Sounds Present GI Remarks morbidly obese, + PEG infusing (Genny Lowery MISDRAW HAND) Musculoskeletal MS Exam: Joints Intact, Good Strength, Unable to Ambulate (Genny Lowery MISDRAW HAND) Integumentary Skin Exam: Warm, Dry Skin Remarks dry flaking skin (Genny Lowery MISDRAW HAND) Extremeties Extremities Exam: Pedal Pulses Palpable, Moderate Edema, Pitting Edema ( Genny Lowery MISDRAW HAND) Neurologic Neuro Exam: Unresponsive, Sedated (Genny Lowery MISDRAW HAND) VTE Prophylaxis Device: SCDs (Genny Lowery MISDRAW HAND) Assessment/Plan Assessment Summary: MIKE/Acute Renal Failure, Acute Tubular Necrosis, Hypotension Problem List: (1) Acute kidney injury Plan: In a pt with normal renal function at baseline MIKE: ATN from sepsis syndrome and diminished renal perfusion ; also aminoglycoside induced nephrotoxicity likely also contributing; possibly AIN HD initiated 09/20; currently on TTS schedule seen during dialysis today on a 2K, 300 BFR, goal 4L remains oliguric, ? improving urine output, await signs of renal recovery daily renal panel continue PhosLo for hyperphosphatemia Nepro tube feeding , avoid free water flushes due to hyponatremia Avoid nephrotoxic agents. Avoid IVF Continue supportive care. (2) ARDS (adult respiratory distress syndrome) Plan: s/p trach placement continue Ventilator support: A/C /40/10 Manager Transmission managing. Sanaz when able (3) Pneumonia Plan: Pseudomonas in the sputum. ID following. monitor the pt clinically, she is currently off antibiotics afebrile today (4) Hypothyroidism Plan: on synthroid (5) Anemia Plan: negative stool for occult blood x 2 heparin is off, she is on protonix gtt but will be converted to BID dosage GI following, transfuse PRN (6) Morbid obesity Plan Prognosis is guarded. (Genny Lowery) Plan patient was seen and examined. Agree with above assessment and plan. Monitor for signs of renal recovery. (Anshu Tan MD) Problem Qualifiers (1) Pneumonia: Qualified Code: J18.9 - Pneumonia of both lungs due to infectious organism, unspecified part of lung Genny Lowery September 26, 2016 10:20 Anshu Tan MD September 26, 2016 11:10
[2016-09-26] MEDS: PANTOPRAZOLE SODIUM 40 MG VIAL IV PUSH SCH (11:19)
[2016-09-26] MEDS: FAMOTIDINE 20 MG/2 ML VIAL IV PUSH SCH (11:20)
[2016-09-26 12:41] LABS: APTT (PATIENT) 50.5 SEC (24.3-30.1)
[2016-09-26] MEDS: BUMETANIDE INJ 1 MG/4 ML VIAL IV PUSH SCH (16:31)
--- NOTE | 2016-09-26 19:59 | HHI.HCPN ---
Reason for visit a. To assist with evaluation and management of symptoms including: dyspnea, pain. b. To assist medical decision maker(s) with: better understanding of current medical conditions; weighing benefits/burdens of medical treatment options; making medical treatment decisions. . Subjective/Interval History Discussed with Dr. Hoffman indicates likely overall poor prognosis, need for prolonged ventilation/tracheostomy. Patient seen and examined in ICU. Patient remains sedated on mechanical ventilation, FI 02 40%, PEEP 10. On Diprivan 20mcg/kg/min. Opens eyes to voice , does not appear to be tracking. Tmax 101.5. WBC 12.4, hemoglobin 8.4, hematocrit 25.6, platelet 256. Creatinine elevated 3.85. Dialysis today with removal 4000 mL. Tolerating tube feeding, albumin 2.4. 09/25/16 chest x-ray cardiomegaly findings of vascular congestion without overt failure, small right effusion, no significant change. . Family/friend interactions Will attempt to call family 09/27/16. Advance Directives Living Will: Never completed Health Care Surrogate: Never completed Durable Power of Dairy Cattle [employer] Manager: Never completed Advance Directive Specifics Health Care Surrogate(s): No known written advance directives. Patient is currently incapacitated to make her own health care decisions, uncertain if she will regain capacity. According to [place] statutes, health care proxy decision-making falls to the patient's daughter, Loree. Patient is not legally . . Significant change in goals: FULL CODE. Goals remain aggressive. Objective Vital Signs Date Time Temp Pulse Resp B/P Pulse Ox O2 Delivery O2 Flow Rate FiO2 09/26/16 16:06 92 40 09/26/16 16:00 99.9 90 24 109/53 93 09/26/16 16:00 40 09/26/16 12:00 102 09/26/16 12:00 100.2 102 31 123/58 92 09/26/16 12:00 40 09/26/16 11:27 93 40 09/26/16 10:00 98 09/26/16 08:09 94 40 09/26/16 08:00 101.5 100 28 133/68 93 09/26/16 08:00 45 09/26/16 08:00 100 09/26/16 06:00 100 09/26/16 04:20 92 40 09/26/16 04:00 98.4 102 20 126/61 92 09/26/16 04:00 102 09/26/16 04:00 45 09/26/16 02:00 97 09/26/16 00:16 95 40 09/26/16 00:00 98.7 95 23 135/69 95 09/26/16 00:00 95 09/26/16 00:00 45 09/25/16 22:00 113 09/25/16 21:11 95 40 09/25/16 20:00 45 09/25/16 20:00 79 09/25/16 20:00 98.9 79 27 118/59 95 Intake & Output 09/26/16 09/26/16 07:00 19:00 Intake Total 1647 ml 1140 ml Output Total 230 ml 4125 ml Balance 1417 ml -2985 ml IV Total 739 ml 501 ml Tube Feeding 668 ml 519 ml Other 240 ml 120 ml Output Urine Total 230 ml 125 ml Hemodialysis 4000 ml # Bowel Movements 0 0 Physical Exam CONSTITUTIONAL/GENERAL: This is an adequately nourished, critically ill patient , sedated on mechanical ventilation. TUBES/LINES/DRAINS: tracheostomy to vent, PEG tube, right upper arm IV,Imller, podus boots, specialty bed. SKIN: severe dry, flaking skin all extremities. ENT: opens eyes to voice. + injection. Nose without bleeding or purulent drainage. CARDIOVASCULAR: Regular rate and rhythm without murmurs, gallops, or rubs. RESPIRATORY/CHEST: Symmetric on mechanical vent. Scattered rhonchi noted. GASTROINTESTINAL: Abdomen protuberant, soft, non-tender, nondistended. Bowel sounds hypoactive. GENITOURINARY: Without palpable bladder distension. Miller catheter in place. MUSCULOSKELETAL: Extremities with edema. No mottling or clubbing. NEUROLOGICAL: sedated. Opens eyes to voice. PSYCHIATRIC: sedated. . Diagnostic Tests Laboratory Laboratory Tests Test 09/24/16 09/24/16 09/24/16 09/25/16 06:13 13:53 21:27 03:34 White Blood Count 9.8 TH/MM3 (4.0-11.0) Red Blood Count 3.34 MIL/MM3 (4.00-5.30) Hemoglobin 9.3 GM/DL 8.6 GM/DL 8.6 GM/DL 8.4 GM/DL (11.6-15.3) (11.6-15.3) (11.6-15.3) (11.6-15.3) Hematocrit 28.5 % (35.0-46.0) Mean Corpuscular Volume 85.4 FL (80.0-100.0) Mean Corpuscular Hemoglobin 27.9 PG (27.0-34.0) Mean Corpuscular Hemoglobin 32.6 % Concent (32.0-36.0) Red Cell Distribution Width 20.0 % (11.6-17.2) Platelet Count 275 TH/MM3 (150-450) Mean Platelet Volume 8.4 FL (7.0-11.0) Prothrombin Time 10.7 SEC (9.8-11.6) Prothromb Time International 1.0 RATIO Ratio Activated Partial 45.4 SEC Thromboplast Time (24.3-30.1) Test 09/25/16 09/25/16 09/25/16 09/26/16 10:18 15:55 19:04 04:13 Prothrombin Time 10.3 SEC 10.3 SEC (9.8-11.6) (9.8-11.6) Prothromb Time International 0.9 RATIO 0.9 RATIO Ratio Activated Partial 26.7 SEC 33.3 SEC 34.9 SEC Thromboplast Time (24.3-30.1) (24.3-30.1) (24.3-30.1) Hemoglobin 8.0 GM/DL 8.4 GM/DL (11.6-15.3) (11.6-15.3) White Blood Count 12.4 TH/MM3 (4.0-11.0) Red Blood Count 3.01 MIL/MM3 (4.00-5.30) Hematocrit 25.6 % (35.0-46.0) Mean Corpuscular Volume 85.0 FL (80.0-100.0) Mean Corpuscular Hemoglobin 28.1 PG (27.0-34.0) Mean Corpuscular Hemoglobin 33.0 % Concent (32.0-36.0) Red Cell Distribution Width 19.5 % (11.6-17.2) Platelet Count 256 TH/MM3 (150-450) Mean Platelet Volume 8.3 FL (7.0-11.0) Sodium Level 127 MEQ/L (136-145) Potassium Level 5.5 MEQ/L (3.5-5.1) Chloride Level 88 MEQ/L (98-107) Carbon Dioxide Level 23.6 MEQ/L (21.0-32.0) Anion Gap 15 MEQ/L (5-15) Blood Urea Nitrogen 82 MG/DL (7-18) Creatinine 3.85 MG/DL (0.50-1.00) Estimat Glomerular Filtration 12 ML/MIN (>89) Rate Random Glucose 100 MG/DL (74-106) Calcium Level 9.1 MG/DL (8.5-10.1) Test 09/26/16 12:07 Activated Partial 50.5 SEC Thromboplast Time (24.3-30.1) Result Diagram: 09/26/16 0413 09/26/16 0413 Microbiology Microbiology Date/Time Procedure Status Source Growth 09/24/16 07:45 Stool Occult Blood (BRITTANI) - Final Complete Stool Stool HEMOCCULT NEGATIVE Imaging Last Impressions Chest X-Ray 09/25/16 0600 Signed Impressions: Service Date/Time: Sunday, September 25, 2016 04:36 - CONCLUSION: 1. Cardiomegaly and findings of vascular congestion without overt failure. Small right effusion 2. There has been no significant change when compared to the prior exam. Didier Zhang MD Catheter Placement X-Ray 09/20/16 0000 Signed Impressions: Service Date/Time: Tuesday, September 20, 2016 11:11 - CONCLUSION: Uncomplicated line placement as above. Beto Barbosa MD Renal Ultrasound 09/17/16 0000 Signed Impressions: Service Date/Time: Saturday, September 17, 2016 13:31 - CONCLUSION: Negative renal sonogram. Taco Davidson MD Upper Extremity Ultrasound 09/14/16 0000 Signed Impressions: Service Date/Time: August 08:32 - CONCLUSION: There is thrombus within the left subclavian and internal jugular veins. Danyel Escalante MD Lower Extremity Ultrasound 09/13/16 0000 Signed Impressions: Service Date/Time: Tuesday, September 13, 2016 22:33 - CONCLUSION: Normal examination. Leonides Mason MD Liver Ultrasound 09/08/16 0000 Signed Impressions: Service Date/Time: Thursday, September 08, 2016 08:45 - CONCLUSION: 1. Cholelithiasis with distended gallbladder. However, there are no associated findings present to diagnose acute cholecystitis. If there is persistent clinical concern for acute cholecystitis could evaluate for cystic duct obstruction with hepatobiliary scintigraphy. 2. Hepatomegaly with very heterogeneous echotexture and steatosis. Dejan Allison MD Gall Bladder Ultrasound 08/29/16 0000 Signed Impressions: Service Date/Time: Monday, August 29, 2016 15:21 - CONCLUSION: 1. Hepatomegaly with heterogeneous echotexture throughout the liver. 2. There is a large echogenic area near the neck of the gallbladder suggestive of a stone, but despite its large size, demonstrates no acoustic shadowing in any of the views. Taco Davidson MD CT Angiography 08/15/16 0000 Signed Impressions: Service Date/Time: Monday, August 15, 2016 02:33 - CONCLUSION: 1. No evidence for pulmonary embolism. 2. Multifocal consolidation greatest in the right lower lobe and associated adenopathy. Terry Estrada MD Procedures * 09/01/16 PEG tube placed * 08/28/16 left subclavian central line placed * 08/18/16 right arterial line placed * 08/18/16 right IJ central line placed * 08/14/16 intubation . Assessment and Plan Disease Oriented Problem List: (1) ARDS (adult respiratory distress syndrome) (2) acute hypercapneic and hypoxemic respiratory failure (3) HCAP (healthcare-associated pneumonia) (4) CHF (congestive heart failure) (5) Morbid obesity (6) Hypothyroidism (7) Dyslipidemia (8) Metabolic encephalopathy Symptom Scale: (1) Pain 0-10 Scale: Unable to quantify Comment: Sedated propofol. (2) Dyspnea 0-10 Scale: Unable to quantify Comment: Remains on mechanical ventilation, sedated with propofol Pertinent Non-Medical Issues Psychosocial: single, significant other, not legally . As one daughter. Spiritual: [employer]. Legal: Patient is currently incapacitated to participate in healthcare decision- making. Single, does have a significant other not legally . Has one daughter. According to 4 to statutes, health care proxy decision-making falls to jarett Ralph. Ethical issues impacting care: no known concerns at this time. . Important Contacts * Loree Isis, daughter (HCP): [phone] * Rony Marinelli, significant other: [phone] . Prognosis In speaking with Dr. Hoffman, he feels patient has pneumonia complicated by worsening COPD, while she will likely have a long road to recovery it is possible she will survive given her young age. She also remains high risk for further setbacks her decline given prolonged ICU stay and prolonged mechanical ventilation. . Code Status: Full Code Plan * Patient is currently incapacitated to participate in healthcare decision- making. Single, does have a significant other, not legally . Has one daughter. According to [place] statutes, health care proxy decision-making falls to daughter Loree. * FULL CODE. * Goals remain aggressive including FULL CODE, will attempt to contact daughter on 09/27/16 to further clarify goals at this time. * SYMPTOMS: dyspnea: remains on mechanical ventilation, sedated with Fentanyl and Diprivan. Pain : secondary to infection, mech vent, recent PEG tube placement and bedbound status. No new medication recommendations at this time. * Palliative care will continue to follow to assist with symptom management and further clarification of treatment goals as needed. . Attestation To help prompt me to consider important information that might be impacting today's encounter and assessment, information from prior notes written by myself or my colleagues may have been "brought forward" into today's note. My signature on this note, however, is an attestation that I personally performed the exam, history, and/or decision-making noted today, and, unless otherwise indicated, the interactions with patient, family, and staff as well as the review of records all occurred today. I also attest that the listed assessment and stated plan reflect my best clinical judgment today based on the combination of historical information, prior notes, and today's exam/ interactions. When time spent is documented, it refers only to time spent today by the signer, or if indicated, combined time spent today by collaborating physician/nurse practitioner. RUMA COOPER September 26, 2016 19:59
[2016-09-26] MEDS: PRAVASTATIN SOD 20 MG TAB PO SCH (20:33)
--- NOTE | 2016-09-26 20:44 | HHI.CCPN ---
Subjective Remarks/Hospital Course 56-year-old morbidly obese female brought in the emergency department in respiratory distress. She was intubated by ER attending. She has been sick for about a week with symptoms consistent with UTI. She's had fevers and chills. She's been short of breath. She's had fatigue. She has had a cough and chest pain with coughing. The family reports that she's been delirious for the last 3 days. 08/15 Patient is sedated with Diprivan, Versed, Fentanyl and intubated. CTA chest showed no PE multifocal consolidation greatest in RLL. Tmax 100.6 08/16 Patient is sedated with Diprivan and Fentanyl. Afebrile. CXR this morning showed increase consolidation. 08/17 Patient remains sedated and intubated. T:100.4 On PRVC/AC RR 18, Tv 500, IT :1.0 PEEP:10, FIO2 75% 08/18 Remains sedated and intubated. Afebrile. CXR this morning unchanged bibasilar infiltrates and effusions. 08/19 Patient was placed on rotoprone bed last night for proning sedated with Diprivan, Versed and Fentnayl in addition she is on Nimbex. On PRVC/AC RR 20, TV 400, IT:1.1, PEEP:14 and FIO2 80%. Afebrile. 08/20 Patient remains sedated and intubated. Remains on PRVC/AC mode with improvements in her oxygenation on FIO2 50% from 80% yesterday and PEEP:12. 08/21 Patient remains sedated and intubated. On PRVC/AC mode with RR 20, TV 400, IT:1.1, PEEP: 12 and FIO2 50%. Afebrile. 08/22 No acute events overnight. Remains sedated, intubated and on Nimbex.. T: 99.8. On PRVC mode with PEP: 12, FIO2 50%. CXR from yesterday showed better aeration, RLL infiltrate unchanged. 08/23 Chest x-ray worsening. Methylprednisolone taper to twice a day by pulmonary. The patient's FiO2 was found to be 100% this a.m., will continue to wean. 08/24: 1 desat episode yesterday when supine. still remains prone now. no vasopressors. sedated and paralyzed. 08/25: flolan added yesterday. fio2 down to 60%. remained supine all night. still on neuromuscular blockade. net -500cc/24h. 08/26: good diuresis. remained supine. fio2 70%. weaning flolan. remains with significant respiratory support and high peep despite 6L diuresis overnight. Cr still stable. 08/27: continues with good diuresis. net negative 3L/24h. fio2 down to 55%. flolan off. still high peep. not ready for SBT. more agitated today. Cr remains stable despite aggressive diuresis. 08/28: diuresis continues. -3.3L/24h. spiked fever overnight with a jump in wbc to 16 this AM. fio2 60%, but her pulmonary improvements have plateaued at this point. still on peep 12. 08/29: net -1.7L/24h. Cr starting to rise. still spiking fevers despite vanc/ cefepime added yesterday. wbc continues to rise. clinically appears infected, although unclear source. peep 10, fio2 60%. will likely need trach. 08/30: net +800cc, but Cr downtrending. appears clinically euvolemic. fever curve downtrending. wbc downtrending. on 40% fio2, peep 8 today. still following commands. 08/31: failed SBT after only 45 minutes yesterday. intubated for > 2 weeks at this point. will attempt to pursue trach/peg today. will continue with pulmonary strengthening. daily SBTs. 09/01 CXR showing increasing bibasilar infiltrate. Failed C Pap trial in 5 minutes due to severe tachypnea. PEG tube today. Family has not decided on trach yet 09/02: Patient febrile to 101.1, CXR increased infiltrate Tmax Tmax 101.1. Currently 9.7 left upper lung and right lower lobe. Pancultured. Cefepime added today and one dose of vancomycin. Continues to fail C Pap trial due to tachypnea and respiratory distress 09/03: Remains hypoxemic on 75% oxygen with new pneumonia. Sputum culture 09/02/16 with GNR. Family agreeable for tracheostomy but patient is not stable at this point for trach 09/04: still on 70% fio2. still hypoxic. pneumonia persists. needs trach, but too unstable at this point. 09/05: remains on 75% fio2. pseudomonas sensitivities came back resistant to carbapenems, intermediate to levaquin. still spiking fevers. not clinically improving. wbc remains elevated. 09/06: Remains on 12 of PEEP and FiO2 75%. Zosyn and tobramycin started yesterday. WBC count trending down today 11.5 from 13.1. Remains heavily sedated for ventilator synchrony. MAXIMUM TEMPERATURE 100.3 09/07: Continues to spike fever. CXR unchanged. WBC count improving. PEEP 14. FiO2 60%. Will start IV Bumex 1mg IV q12 09/09: Tolerating tube feeds at goal. Afebrile. No documented bowel movement. Currently sedated on the ventilator 09/10: Tmax 99.7. Currently 99.4. No bowel movement yesterday. None document since 09/04. Arousable on the ventilator 09/11: Tmax 102.6. Currently 100. Positive BM. Arousable on the ventilator. Tolerating tube feeds. Central line changed yesterday. Plan for bronchoscopy at 1 PM. 09/12: Tmax 100.1. Currently afebrile. Follows commands today. Wiggles toes and give thumbs up appropriately. MRI brain canceled. Tolerating tube feeding with positive BM. Tracheostomy currently planned for . 09/13: Tmax 102. Again on sedation vacation [place] commands by wiggling toes bilaterally and giving thumbs up bilaterally appropriate. Tolerating tube feeding with positive BM. Tracheostomy planned for tomorrow with Dr. Ortega. 09/14: Low grade fever. CXR showing more prominent infiltrate on the right lower lobe and left upper lobe. WBC trending up still in normal range. Patient is on 40% FiO2 but continues to fail CPAP due to tachypnea 09/15: Remains intubated sedated, unable to wean off the vent. Plan for tracheostomy today with Dr. Ortega. Continues to have low grade fever. CXR with persistent bibasilar infiltrates 09/16: Tmax 101.1. Currently 100.7. Awake and alert. Following commands. 09/17: Afebrile. Currently on PSV trial. Tolerating tube feeds. One bowel movement. Noted decreased urine output past 48 hours. Diuretics have been discontinued. This a.m. creatinine currently pending. 09/18: Afebrile. Adequate urine output yesterday but decreased 150 past 8 hours. Tolerating tube feeds. One bowel movement. Not tolerating PSV trials today. 09/19: Tmax 100.5. Urine output picking up. Tolerating tube feeds. No bowel movement 48 hours. Not tolerating PSV trials. 09/20: Diffuse drug morbilliform exanthem noted this a.m. Tmax 100.6. Urine output around 20 cc an hour. Not tolerating PSV trials. Possibly new right pleural effusion noted on chest x-ray. Will need hemodialysis 09/21: Tmax 100.6 currently 98.7. -4 L with hemodialysis yesterday and today. FiO2 to 60%. Tolerating tube feeds. Positive BM. Still requiring sedation 09/22: Afebrile. Tolerating tube feeds. Positive BM. 30 g per kilogram per minute of propofol. Tolerated PSV trials 3 hours today 09/23 HD today with 3.5 L removal. Tolerating CPAP for 8 hours, currently 45% with RSBI 45%. 09/24 Called by RN this morning for concern for bloody BMs. Placed heparin and warfarin on hold. Serial Hgb ordered. Hgb 9.3 -->8.6 and hemodynamically unchanged. Started on protonix drip. Heme stool is negative and now RN states she is concerned about the adequacy of specimen, so sending repeat. Had asked GI to see, however further workup will not be indicated if hemoccult is negative. Tolerating PSV 05/06 09/25: heparin restarted. hemocult negative x 2. Subjective 09/26: no changes. still failing cpap trials. Objective Vital Signs Date Time Temp Pulse Resp B/P Pulse Ox O2 Delivery O2 Flow Rate FiO2 09/26/16 20:06 92 40 09/26/16 16:00 99.9 90 24 109/53 Intake and Output 09/25/16 09/25/16 09/26/16 08:00 16:00 00:00 Intake Total 497 ml 776 ml 879 ml Output Total 80 ml 150 ml 100 ml Balance 417 ml 626 ml 779 ml Result Diagram: 09/26/16 0413 09/26/16 0413 Other Results Microbiology Date/Time Procedure Status Source Growth 09/24/16 07:45 Stool Occult Blood (BRITTANI) - Final Complete Stool Stool HEMOCCULT NEGATIVE Imaging Last Impressions Chest X-Ray 09/21/16 0600 Signed Impressions: Service Date/Time: August 02:46 - CONCLUSION: No significant change of bilateral pulmonary infiltrates. Kieran Ford MD Catheter Placement X-Ray 09/20/16 0000 Signed Impressions: Service Date/Time: Tuesday, September 20, 2016 11:11 - CONCLUSION: Uncomplicated line placement as above. Beto Barbosa MD Renal Ultrasound 09/17/16 0000 Signed Impressions: Service Date/Time: Saturday, September 17, 2016 13:31 - CONCLUSION: Negative renal sonogram. Taco Davidson MD Upper Extremity Ultrasound 09/14/16 0000 Signed Impressions: Service Date/Time: August 08:32 - CONCLUSION: There is thrombus within the left subclavian and internal jugular veins. Danyel Escalante MD Lower Extremity Ultrasound 09/13/16 0000 Signed Impressions: Service Date/Time: Tuesday, September 13, 2016 22:33 - CONCLUSION: Normal examination. Leonides Mason MD Liver Ultrasound 09/08/16 0000 Signed Impressions: Service Date/Time: Thursday, September 08, 2016 08:45 - CONCLUSION: 1. Cholelithiasis with distended gallbladder. However, there are no associated findings present to diagnose acute cholecystitis. If there is persistent clinical concern for acute cholecystitis could evaluate for cystic duct obstruction with hepatobiliary scintigraphy. 2. Hepatomegaly with very heterogeneous echotexture and steatosis. Dejan Allison MD Gall Bladder Ultrasound 08/29/16 0000 Signed Impressions: Service Date/Time: Monday, August 29, 2016 15:21 - CONCLUSION: 1. Hepatomegaly with heterogeneous echotexture throughout the liver. 2. There is a large echogenic area near the neck of the gallbladder suggestive of a stone, but despite its large size, demonstrates no acoustic shadowing in any of the views. Taco Davidson MD CT Angiography 08/15/16 0000 Signed Impressions: Service Date/Time: Monday, August 15, 2016 02:33 - CONCLUSION: 1. No evidence for pulmonary embolism. 2. Multifocal consolidation greatest in the right lower lobe and associated adenopathy. Terry Estrada MD Objective Remarks GENERAL: 56 yo female on CPAP via trach. SKIN: Warm and dry. HEAD: Normocephalic. EYES: No scleral icterus. No injection or drainage. NECK: trachea midline. 8.0 perc Tracheostomy without exudate. Neck is obese. Right subclavian hemodialysis catheters clean dry and intact CARDIOVASCULAR: RRR. S1, S2 no S4 . No murmur RESPIRATORY: Appears reasonably comfortable on C Pap no accessory muscle use. Scattered rhonchi. GASTROINTESTINAL: Abdomen obese, soft, non-tender, hypoactive active bowel sounds. Tolerating tube feeds MUSCULOSKELETAL: Crinkling of bilateral lower extremities. 1+ edema BUE. Neuro: Awake, makes eye contact and nods to questions. Currently following commands moving upper and lower extremity spontaneously. Generally very weak, cannot lift BUE off bed. A/P Problem List: (1) ARDS (adult respiratory distress syndrome) ICD Code: J80 Status: Acute (2) CHF (congestive heart failure) ICD Code: I50.9 Status: Acute (3) Respiratory failure ICD Code: J96.90 Status: Acute (4) Pneumonia ICD Code: J18.9 Status: Acute Assessment and Plan Neuro/Psych: Critical illness associated weakness Acute toxic metabolic encephalopathy Agitated delirium haldol 5mg iv q4h prn Daily sedation vacation Continue Seroquel 50mg po q8h . Oxycodone 5 mg every 4 hours. Additional 5 mg q 4hours as needed in an effort to discontinue continuous sedation. . EEG 09/09 moderate to severe encephalopathy PT/OT. Multipodus boots. Pulm: Acute hypercapnic and hypoxemic respiratory failure ARDS Pneumonia community-acquired, now with HCAP with carbapenem-resistant pseudomonas Probable JOE PSV/CPAP trials daily with slow weaning. 05/06 45%. Bronchodilator therapy every 4 hours and as needed ICU vent bundle. Pulm has followed- Dr. Beck Gen surgery Dr. Ortega status post percutaneous tracheostomy 09/15 OOB to stretcher chair daily. CV: Hypertension Dyslipidemia Elevated troponin - likely strain Hypertensive . Metoprolol 12.5 mg by mouth twice a day Echo 08/14 showed EF 65-70% mild AR/TR Home medications HCTZ 12.5 milligrams daily currently on hold Home medication lovastatin 20 mg by mouth daily switched to Pravachol 20 mg a night. Renal/: Acute kidney injury - requiring hemodialysis Dr. Tan -nephrology following MIKE: ATN from sepsis syndrome and diminished renal perfusion ; also aminoglycoside induced nephrotoxicity likely also contributing; possibly AIN -> per nephrology note Urine eosinophils negative. Renal ultrasound revealed no hydronephrosis s/p exchange Miller with funguria Monitor renal function, I/O's. UOP ~ 200 /24 hours. Status post dialysis 09/20 and 09/21-4 L., -3.5 kg on 09/23. Appreciate nephrology assistance with ongoing fluid removal; she is slowly making progress towards vent weaning. GI: ?bloody stools Elevated transaminases Cholelithiasis Hemoccult stool pending Protonix drip. GI reconsulted, will scope if hemoccult positive but hemocult negative x 2. Monitor LFT's ( trending down), US liver: Fatty liver and cholelithiasis. Repeat 09/08 revealed cholelithiasis with no acute signs of cholecystitis. Recommend a HIDA scan if indicated On TF Nepro's 45 cc an hour and beneprotein 2 packs 3 times a day s/p PEG placement 09/01/[address] Ritter Pepcid 10 mg IV twice a day for GI prophylaxis Colace/Senokot for bowel regimen. Lactulose 30 cc daily added Having bowel movements ID: Pseudomonas pneumonia Funguria, Marbiell glabrata and parapsilosis. Pertinent cultures blood and sputum cx 08/15- NG strep pneumonia and Legionella urinary Ag negative Blood cultures 08/28: NGTD C Diff negative 08/28. Lines changed 08/28. Sputum 08/30 - Pseudomonas Sputum 09/02 PSAE, resistant to carbapenem, intermediate to Levaquin. 09/07 - urine -Maribell Guilliermondii 09/07 - blood cultures 2 - no growth 09/09 - urine -strep veridians, Maribell parapsilosis 09/10 - blood cultures 2 -no growth 09/11 - broch washings -no growth to date 09/12 - urine -Maribell glabrata and parapsilosis 09/16 - blood cultures 2 - pending 09/16 - sputum -no growth 09/16 - urine -Maribell glabrata and parapsilosis Zosyn previously discontinued secondary to rash Has been off abx since 09/18 when ID discontinued Cefepime , tobramycin aerosols per infectious disease, diflucan, and Vfend. - ID following at a distance currently. Afebrile, no leukocytosis. 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 Warfarin started 09/23, held in the setting of possible GI bleed, restarted 09/26. Endo: Diabetes mellitus Hypothyroidism on SSI (medium scale) for glycemic control On Synthroid 200mcg daily. TSH 1.37 FEN: Hyperkalemia - resolved GI prophylaxis- Prevacid per tube. DVT prophylaxis Heparin SQ - Continue , SCDs Lines: Peripheral IV. - PEG 09/01/16 - Trach 09/15 - Right subclavian US catheter placed 09/20 by IR. Critical Care: Discussed with Dr. Beck. Discussed with Dr. Bowers evening of 09/24. He recommends resume heparin and monitor for bleeding. Loere Marinelli, daughter (HCP): [phone] Rony Marinelli, significant other: [phone] Problem Qualifiers (1) CHF (congestive heart failure): Qualified Code: I50.9 - Acute congestive heart failure, unspecified congestive heart failure type (2) Respiratory failure: Qualified Code: J96.02 - Acute respiratory failure with hypercapnia (3) Pneumonia: Qualified Code: J18.9 - Pneumonia of both lungs due to infectious organism, unspecified part of lung Tutu Hoffman MD September 26, 2016 20:44
[2016-09-26 20:47] LABS: APTT (PATIENT) 46.9 SEC (24.3-30.1)
[2016-09-27] VITALS (36 sets, daily range): BP systolic 107–155; BP diastolic 57–75; PULSE 83–125; RESP 12–29; TEMP 98.8–101.5; O2SAT 90–100
[2016-09-27] MEDS: WARFARIN SOD 2.5 MG TAB PO SCH ×2 (00:04→16:08)
[2016-09-27] MEDS: FAMOTIDINE 20 MG/2 ML VIAL IV PUSH SCH ×2 (00:04→09:37)
[2016-09-27] MEDS: PANTOPRAZOLE SODIUM 40 MG VIAL IV PUSH SCH ×3 (00:04→23:56)
[2016-09-27] MEDS: oxyCODONE HCL ORAL CONC 20 MG/ML SYRINGE G-TUBE SCH ×7 (00:05→23:57)
[2016-09-27] MEDS: MORPHINE SULFATE 4 MG/ML INJ IV PRN (00:17)
[2016-09-27] MEDS: ACETAMINOPHEN 325 MG TAB PO PRN ×2 (01:16→09:36)
[2016-09-27] MEDS: PROPOFOL 1000 MG/100 ML INJ 100 ML IV SCH ×4 (01:17→16:09)
[2016-09-27] MEDS: HEPARIN-D5W 25,000 U/250 ML 250 ML IV SCH ×2 (03:07→15:18)
[2016-09-27] MEDS: CHLORHEXIDINE GLUCONATE 2 % 1 PACK (2 CLOTHS) TOP SCH (03:07)
[2016-09-27] MEDS: RESP: ALBUTEROL 2.5 MG/IPRATROPIUM 0.5 MG NEB (SCH) INH ×3 (03:44→19:48)
[2016-09-27 05:21] LABS: HEMATOCRIT 23.6 % (35.0-46.0); MEAN CELL VOLUME 85.3 FL (80.0-100.0); MEAN CORPUSCULAR HEMOGLOBIN 28.1 PG (27.0-34.0); MEAN CORPUSCULAR HGB CONC 32.9 % (32.0-36.0); PLATELET COUNT 262 TH/MM3 (150-450); RED BLOOD COUNT 2.77 MIL/MM3 (4.00-5.30); RED CELL DISTRIBUTION WIDTH 18.9 % (11.6-17.2); REVIEW FLAG FINAL; WHITE BLOOD COUNT 14.6 TH/MM3 (4.0-11.0)
[2016-09-27 05:39] LABS: PROTHROMBIN TIME - PATIENT 11.1 SEC (9.8-11.6)
[2016-09-27] MEDS: METOCLOPRAMIDE HCL 10 MG/2 ML VIAL IV PUSH SCH ×3 (05:43→20:47)
[2016-09-27] MEDS: LEVOTHYROXINE SODIUM 200 MCG TAB PO SCH (05:43)
[2016-09-27] MEDS: QUEtiapine FUMARATE 25 MG TAB PO SCH ×3 (05:43→20:46)
[2016-09-27 05:50] LABS: APTT (PATIENT) 122.8 SEC (24.3-30.1)
[2016-09-27 05:58] LABS: BICARBONATE 25.6 MEQ/L (21.0-32.0); POTASSIUM 4.1 MEQ/L (3.5-5.1)
[2016-09-27] MEDS: ARTIFICIAL TEARS OPTH SOLN 15 ML BTL EACH EYE SCH ×3 (09:00→17:40)
[2016-09-27] MEDS: SENNOSIDES SYRUP 8.8 MG/5 ML CUP PO SCH ×2 (09:00→20:45)
[2016-09-27] MEDS: POLYETHYLENE GLYCOL 17 GM PKG PO SCH (09:00)
[2016-09-27] MEDS: SODIUM CHLORIDE 0.9% FLUSH 10 ML FLUSH IVF SCH (09:00)
[2016-09-27] MEDS: BENEPROTEIN POWDER 1 PACK G-TUBE SCH ×3 (09:00→17:39)
[2016-09-27] MEDS: BUMETANIDE INJ 1 MG/4 ML VIAL IV PUSH SCH ×2 (09:37→16:09)
[2016-09-27] MEDS: METOPROLOL TARTRATE 25 MG TAB G-TUBE SCH ×2 (09:38→20:46)
[2016-09-27] MEDS: CALCIUM ACETATE 667 MG CAP PO SCH ×3 (09:38→18:00)
[2016-09-27] MEDS: SODIUM CHLORIDE 0.9% FLUSH 10 ML FLUSH IV FLUSH SCH ×2 (09:38→20:47)
[2016-09-27] MEDS: DOCUSATE SODIUM 100 MG/10 ML UDC PO SCH ×2 (09:40→20:45)
--- NOTE | 2016-09-27 10:49 | HHI.NPPN ---
Subjective General Problems: Edema, Hypotension, Obesity Renal Failure: Acute Interval History Febrile and tachycardic today. On vent via trach high PEEP requirement. Dialyzed yesterday. (Genny Lowery) Review of Systems General General Remarks unable to evaluate (Genny Lowery) Objective Data Data 09/26/16 09/27/16 19:00 07:00 Intake Total 1140 ml 1141 ml Output Total 4125 ml 160 ml Balance -2985 ml 981 ml IV Total 501 ml 497 ml Tube Feeding 519 ml 524 ml Other 120 ml 120 ml Output Urine Total 125 ml 160 ml Hemodialysis 4000 ml # Bowel Movements 0 0 Vital Signs Date Time Temp Pulse Resp B/P Pulse Ox O2 Delivery O2 Flow Rate FiO2 09/27/16 09:49 96 40 09/27/16 09:41 96 40 09/27/16 09:41 40 09/27/16 09:38 96 40 09/27/16 06:00 116 09/27/16 04:21 90 40 09/27/16 04:16 27 09/27/16 04:00 40 09/27/16 04:00 100.3 104 27 126/64 92 09/27/16 02:00 101 09/27/16 00:31 29 09/27/16 00:13 98 40 09/27/16 00:00 105 09/27/16 00:00 100.8 105 29 127/69 91 09/27/16 00:00 40 09/26/16 22:00 101 09/26/16 20:06 92 40 09/26/16 20:00 40 09/26/16 20:00 104 09/26/16 20:00 100.0 104 27 120/63 90 09/26/16 16:06 92 40 09/26/16 16:00 99.9 90 24 109/53 93 09/26/16 16:00 40 09/26/16 12:00 102 09/26/16 12:00 100.2 102 31 123/58 92 09/26/16 12:00 40 09/26/16 11:27 93 40 (Genny Lowery) -: 09/27/16 0426 09/27/16 0426 Imaging Last 72 hours Impressions Chest X-Ray 09/25/16 0600 Signed Impressions: Service Date/Time: Sunday, September 25, 2016 04:36 - CONCLUSION: 1. Cardiomegaly and findings of vascular congestion without overt failure. Small right effusion 2. There has been no significant change when compared to the prior exam. Didier Zhang MD Tubes & Lines: Miller Tubes & Lines Comment trach, PEG Drip Comment protonix, propofol (Genny Lowery B. PRODUCT MANAGEMENT INTERN) Physical Exam General Appearance: Well Developed, No Acute Distress, Comfortable, Obese Appearance Remarks eyes open with blank stare, no eye movements (Genny Lowery B. PRODUCT MANAGEMENT INTERN) Throat Throat Exam: Oral Mucosa [place] & Moist (Genny Lowery B. PRODUCT MANAGEMENT INTERN) Neck Neck Exam: Neck Supple Neck Remarks trach (Genny Lowery B. PRODUCT MANAGEMENT INTERN) Pulmonary Resp Remarks vented lung sounds clear in upper palafox (Genny Lowery B. PRODUCT MANAGEMENT INTERN) Cardiology CV Exam: Regular, Normal Sinus Rhythm (Genny Lowery B. PRODUCT MANAGEMENT INTERN) Gastrointestinal/Abdomen GI Exam: Soft, Bowel Sounds Present GI Remarks morbidly obese, + PEG infusing (Genny Lowery B. PRODUCT MANAGEMENT INTERN) Musculoskeletal MS Exam: Joints Intact, Good Strength, Unable to Ambulate (Genny Lowery B. PRODUCT MANAGEMENT INTERN) Integumentary Skin Exam: Warm, Dry Skin Remarks dry flaking skin (Genny Lowery. PRODUCT MANAGEMENT INTERN) Extremeties Extremities Exam: Pedal Pulses Palpable, Moderate Edema, Pitting Edema ( Genny Lowery B. PRODUCT MANAGEMENT INTERN) Neurologic Neuro Exam: Unresponsive, Sedated (Genny Lowery. PRODUCT MANAGEMENT INTERN) VTE Prophylaxis Device: SCDs (Genny Lowery. PRODUCT MANAGEMENT INTERN) Assessment/Plan Assessment Summary: MIKE/Acute Renal Failure, Acute Tubular Necrosis, Fluid/ Volume Overload, Hypotension Electrolyte Assessment: Hyponatremia Problem List: (1) Acute kidney injury Plan: In a pt with normal renal function at baseline MIKE: ATN from sepsis syndrome and diminished renal perfusion ; also aminoglycoside induced nephrotoxicity likely also contributing; possibly AIN HD initiated 09/20; currently on TTS schedule 4L UF yesterday, now with negative fluid balance remains oliguric , continue Bumex 2 mg BID IV obtain daily renal panel continue PhosLo for hyperphosphatemia Nepro tube feeding , avoid free water flushes due to hyponatremia Avoid nephrotoxic agents. Avoid IVF await signs of renal recovery Continue supportive care. (2) ARDS (adult respiratory distress syndrome) Plan: s/p trach placement continue Ventilator support: A/C //10 [place] Regenerator managing. Sanaz when able (3) Anemia Plan: worsening anemia, recent stool for occult bleeding negative x 2 on heparin also on protonix GI following, transfuse PRN (4) Pneumonia Plan: Pseudomonas in the sputum. ID following. monitor the pt clinically, she is currently off antibiotics febrile today (5) Hypothyroidism Plan: on synthroid (6) Morbid obesity (7) DVT (deep venous thrombosis) Plan: in IJ after central line was placed on heparin bridge to coumadin (Genny Lowery) Plan patient was seen and examined. Dialysis tomorrow. Monitor urine output and renal function. (Anshu Tan MD) Problem Qualifiers (1) Pneumonia: Qualified Code: J18.9 - Pneumonia of both lungs due to infectious organism, unspecified part of lung Genny Lowery September 27, 2016 10:48 Anshu Tan MD September 28, 2016 10:19
--- NOTE | 2016-09-27 13:11 | HHI.PR ---
Subjective Remarks Awake and on A/C rate 12,. FIO2 at 40 %. Hgb stable. Failed CPAP today. Objective Vital Signs Date Time Temp Pulse Resp B/P Pulse Ox O2 Delivery O2 Flow Rate FiO2 09/27/16 12:00 40 09/27/16 11:45 93 40 09/27/16 11:30 123 153/73 94 09/27/16 11:15 121 152/72 94 09/27/16 11:00 117 136/63 93 09/27/16 10:36 24 09/27/16 10:36 24 09/27/16 10:30 118 94 09/27/16 10:00 105 130/64 95 09/27/16 09:49 96 40 09/27/16 09:41 96 40 09/27/16 09:41 40 09/27/16 09:38 96 40 09/27/16 09:30 104 96 09/27/16 09:00 106 131/66 96 09/27/16 08:30 107 96 09/27/16 08:00 110 143/75 95 09/27/16 08:00 40 09/27/16 06:00 116 09/27/16 04:21 90 40 09/27/16 04:00 40 09/27/16 04:00 100.3 104 27 126/64 92 09/27/16 02:00 101 09/27/16 00:31 29 09/27/16 00:13 98 40 09/27/16 00:00 105 09/27/16 00:00 100.8 105 29 127/69 91 09/27/16 00:00 40 09/26/16 22:00 101 09/26/16 20:06 92 40 09/26/16 20:00 40 09/26/16 20:00 104 09/26/16 20:00 100.0 104 27 120/63 90 09/26/16 16:06 92 40 09/26/16 16:00 99.9 90 24 109/53 93 09/26/16 16:00 40 I/O 09/26/16 09/26/16 09/26/16 09/27/16 09/27/16 09/27/16 07:00 15:00 23:00 07:00 15:00 23:00 Intake Total 768 ml 1140 ml 516 ml 625 ml Output Total 130 ml 4125 ml 75 ml 85 ml Balance 638 ml -2985 ml 441 ml 540 ml IV Total 341 ml 501 ml 225 ml 272 ml Tube Feeding 307 ml 519 ml 231 ml 293 ml Other 120 ml 120 ml 60 ml 60 ml Output Urine Total 130 ml 125 ml 75 ml 85 ml Hemodialysis 4000 ml # Bowel Movements 0 0 0 0 Result Diagram: 09/27/1642509/27/16425 Objective Remarks This is an obese middle-aged white female who is lethargic. HEENT: Head normocephalic. Pupils react. Neck: No bruits, no thyroid enlargement, no lymphadenopathy. Chest: Decreased breath sounds. Occ wheezes and Few basal crackles. Heart: Heart sounds were regular. S1-S2 no murmur, no S3. Abdomen: Soft, benign. No masses, or tenderness. Bowel sounds are active. Extremities: 1 + edema . Neuro :Moves feet Awake . Assessment and Plan Assessment and Plan IMPRESSION 1. Acute hypercapnic respiratory failure. 2. Pulmonary edema. 3. Drug rash 4. Obstructive sleep apnea syndrome 5. Hypertension 6. Hypothyroidism. 7. MIKE Plan : 1. Cont weaning vent with PSV /CPAP , FIO2 40 % in am 2. Trach toilet and suctioning 3. Nebs qid , duoneb. 4. A/C rate 12, PEEP +10 after CPAP. 5. CBC,BMP. 6. PT evaluation 7. Tube feeds at 50 CC 8. Up in chair as tolerated Abimael Beck MD September 27, 2016 13:11
--- NOTE | 2016-09-27 19:08 | HHI.CCPN ---
Subjective Remarks/Hospital Course 56-year-old morbidly obese female brought in the emergency department in respiratory distress. She was intubated by ER attending. She has been sick for about a week with symptoms consistent with UTI. She's had fevers and chills. She's been short of breath. She's had fatigue. She has had a cough and chest pain with coughing. The family reports that she's been delirious for the last 3 days. 08/15 Patient is sedated with Diprivan, Versed, Fentanyl and intubated. CTA chest showed no PE multifocal consolidation greatest in RLL. Tmax 100.6 08/16 Patient is sedated with Diprivan and Fentanyl. Afebrile. CXR this morning showed increase consolidation. 08/17 Patient remains sedated and intubated. T:100.4 On PRVC/AC RR 18, Tv 500, IT :1.0 PEEP:10, FIO2 75% 08/18 Remains sedated and intubated. Afebrile. CXR this morning unchanged bibasilar infiltrates and effusions. 08/19 Patient was placed on rotoprone bed last night for proning sedated with Diprivan, Versed and Fentnayl in addition she is on Nimbex. On PRVC/AC RR 20, TV 400, IT:1.1, PEEP:14 and FIO2 80%. Afebrile. 08/20 Patient remains sedated and intubated. Remains on PRVC/AC mode with improvements in her oxygenation on FIO2 50% from 80% yesterday and PEEP:12. 08/21 Patient remains sedated and intubated. On PRVC/AC mode with RR 20, TV 400, IT:1.1, PEEP: 12 and FIO2 50%. Afebrile. 08/22 No acute events overnight. Remains sedated, intubated and on Nimbex.. T: 99.8. On PRVC mode with PEP: 12, FIO2 50%. CXR from yesterday showed better aeration, RLL infiltrate unchanged. 08/23 Chest x-ray worsening. Methylprednisolone taper to twice a day by pulmonary. The patient's FiO2 was found to be 100% this a.m., will continue to wean. 08/24: 1 desat episode yesterday when supine. still remains prone now. no vasopressors. sedated and paralyzed. 08/25: flolan added yesterday. fio2 down to 60%. remained supine all night. still on neuromuscular blockade. net -500cc/24h. 08/26: good diuresis. remained supine. fio2 70%. weaning flolan. remains with significant respiratory support and high peep despite 6L diuresis overnight. Cr still stable. 08/27: continues with good diuresis. net negative 3L/24h. fio2 down to 55%. flolan off. still high peep. not ready for SBT. more agitated today. Cr remains stable despite aggressive diuresis. 08/28: diuresis continues. -3.3L/24h. spiked fever overnight with a jump in wbc to 16 this AM. fio2 60%, but her pulmonary improvements have plateaued at this point. still on peep 12. 08/29: net -1.7L/24h. Cr starting to rise. still spiking fevers despite vanc/ cefepime added yesterday. wbc continues to rise. clinically appears infected, although unclear source. peep 10, fio2 60%. will likely need trach. 08/30: net +800cc, but Cr downtrending. appears clinically euvolemic. fever curve downtrending. wbc downtrending. on 40% fio2, peep 8 today. still following commands. 08/31: failed SBT after only 45 minutes yesterday. intubated for > 2 weeks at this point. will attempt to pursue trach/peg today. will continue with pulmonary strengthening. daily SBTs. 09/01 CXR showing increasing bibasilar infiltrate. Failed C Pap trial in 5 minutes due to severe tachypnea. PEG tube today. Family has not decided on trach yet 09/02: Patient febrile to 101.1, CXR increased infiltrate Tmax Tmax 101.1. Currently 9.7 left upper lung and right lower lobe. Pancultured. Cefepime added today and one dose of vancomycin. Continues to fail C Pap trial due to tachypnea and respiratory distress 09/03: Remains hypoxemic on 75% oxygen with new pneumonia. Sputum culture 09/02/16 with GNR. Family agreeable for tracheostomy but patient is not stable at this point for trach 09/04: still on 70% fio2. still hypoxic. pneumonia persists. needs trach, but too unstable at this point. 09/05: remains on 75% fio2. pseudomonas sensitivities came back resistant to carbapenems, intermediate to levaquin. still spiking fevers. not clinically improving. wbc remains elevated. 09/06: Remains on 12 of PEEP and FiO2 75%. Zosyn and tobramycin started yesterday. WBC count trending down today 11.5 from 13.1. Remains heavily sedated for ventilator synchrony. MAXIMUM TEMPERATURE 100.3 09/07: Continues to spike fever. CXR unchanged. WBC count improving. PEEP 14. FiO2 60%. Will start IV Bumex 1mg IV q12 09/09: Tolerating tube feeds at goal. Afebrile. No documented bowel movement. Currently sedated on the ventilator 09/10: Tmax 99.7. Currently 99.4. No bowel movement yesterday. None document since 09/04. Arousable on the ventilator 09/11: Tmax 102.6. Currently 100. Positive BM. Arousable on the ventilator. Tolerating tube feeds. Central line changed yesterday. Plan for bronchoscopy at 1 PM. 09/12: Tmax 100.1. Currently afebrile. Follows commands today. Wiggles toes and give thumbs up appropriately. MRI brain canceled. Tolerating tube feeding with positive BM. Tracheostomy currently planned for . 09/13: Tmax 102. Again on sedation [place] commands by wiggling toes bilaterally and giving thumbs up bilaterally appropriate. Tolerating tube feeding with positive BM. Tracheostomy planned for tomorrow with Dr. Ortega. 09/14: Low grade fever. CXR showing more prominent infiltrate on the right lower lobe and left upper lobe. WBC trending up still in normal range. Patient is on 40% FiO2 but continues to fail CPAP due to tachypnea 09/15: Remains intubated sedated, unable to wean off the vent. Plan for tracheostomy today with Dr. Ortega. Continues to have low grade fever. CXR with persistent bibasilar infiltrates 09/16: Tmax 101.1. Currently 100.7. Awake and alert. Following commands. 09/17: Afebrile. Currently on PSV trial. Tolerating tube feeds. One bowel movement. Noted decreased urine output past 48 hours. Diuretics have been discontinued. This a.m. creatinine currently pending. 09/18: Afebrile. Adequate urine output yesterday but decreased 150 past 8 hours. Tolerating tube feeds. One bowel movement. Not tolerating PSV trials today. 09/19: Tmax 100.5. Urine output picking up. Tolerating tube feeds. No bowel movement 48 hours. Not tolerating PSV trials. 09/20: Diffuse drug morbilliform exanthem noted this a.m. Tmax 100.6. Urine output around 20 cc an hour. Not tolerating PSV trials. Possibly new right pleural effusion noted on chest x-ray. Will need hemodialysis 09/21: Tmax 100.6 currently 98.7. -4 L with hemodialysis yesterday and today. FiO2 to 60%. Tolerating tube feeds. Positive BM. Still requiring sedation 09/22: Afebrile. Tolerating tube feeds. Positive BM. 30 g per kilogram per minute of propofol. Tolerated PSV trials 3 hours today 09/23 HD today with 3.5 L removal. Tolerating CPAP for 8 hours, currently 45% with RSBI 45%. 09/24 Called by RN this morning for concern for bloody BMs. Placed heparin and warfarin on hold. Serial Hgb ordered. Hgb 9.3 -->8.6 and hemodynamically unchanged. Started on protonix drip. Heme stool is negative and now RN states she is concerned about the adequacy of specimen, so sending repeat. Had asked GI to see, however further workup will not be indicated if hemoccult is negative. Tolerating PSV 05/06 09/25: heparin restarted. hemocult negative x 2. 09/26: no changes. still failing cpap trials. Subjective 09/27: Tmax 11.5. Currently 99.5. Resting on Diprivan drip at 25 mcg/kg/m. Currently tolerating tube feeding.. One bowel movement. Objective Vital Signs Date Time Temp Pulse Resp B/P Pulse Ox O2 Delivery O2 Flow Rate FiO2 09/27/16 16:00 99.6 104 125/61 96 09/27/16 16:00 40 09/27/16 13:35 24 Intake and Output 09/26/16 09/26/16 09/27/16 08:00 16:00 00:00 Intake Total 768 ml 1140 ml 516 ml Output Total 130 ml 4125 ml 75 ml Balance 638 ml -2985 ml 441 ml Result Diagram: 09/27/16 0426 09/27/16 0426 Other Results Microbiology Date/Time Procedure Status Source Growth 09/24/16 07:45 Stool Occult Blood (BRITTANI) - Final Complete Stool Stool HEMOCCULT NEGATIVE Imaging Last Impressions Chest X-Ray 09/25/16 0600 Signed Impressions: Service Date/Time: Sunday, September 25, 2016 04:36 - CONCLUSION: 1. Cardiomegaly and findings of vascular congestion without overt failure. Small right effusion 2. There has been no significant change when compared to the prior exam. Didier Zhang MD Catheter Placement X-Ray 09/20/16 0000 Signed Impressions: Service Date/Time: Tuesday, September 20, 2016 11:11 - CONCLUSION: Uncomplicated line placement as above. Beto Barbosa MD Renal Ultrasound 09/17/16 0000 Signed Impressions: Service Date/Time: Saturday, September 17, 2016 13:31 - CONCLUSION: Negative renal sonogram. Taco Davidson MD Upper Extremity Ultrasound 09/14/16 0000 Signed Impressions: Service Date/Time: August 08:32 - CONCLUSION: There is thrombus within the left subclavian and internal jugular veins. Danyel Escalante MD Lower Extremity Ultrasound 09/13/16 0000 Signed Impressions: Service Date/Time: Tuesday, September 13, 2016 22:33 - CONCLUSION: Normal examination. Leonides Mason MD Liver Ultrasound 09/08/16 0000 Signed Impressions: Service Date/Time: Thursday, September 08, 2016 08:45 - CONCLUSION: 1. Cholelithiasis with distended gallbladder. However, there are no associated findings present to diagnose acute cholecystitis. If there is persistent clinical concern for acute cholecystitis could evaluate for cystic duct obstruction with hepatobiliary scintigraphy. 2. Hepatomegaly with very heterogeneous echotexture and steatosis. Dejan Allison MD Gall Bladder Ultrasound 08/29/16 0000 Signed Impressions: Service Date/Time: Monday, August 29, 2016 15:21 - CONCLUSION: 1. Hepatomegaly with heterogeneous echotexture throughout the liver. 2. There is a large echogenic area near the neck of the gallbladder suggestive of a stone, but despite its large size, demonstrates no acoustic shadowing in any of the views. Taco Daivdson MD CT Angiography 08/15/16 0000 Signed Impressions: Service Date/Time: Monday, August 15, 2016 02:33 - CONCLUSION: 1. No evidence for pulmonary embolism. 2. Multifocal consolidation greatest in the right lower lobe and associated adenopathy. Terry Estrada MD Objective Remarks GENERAL: 56 yo female currently resting in bed mechanically ventilated SKIN: Warm and dry. Skin is flaky. Rash is resolved. Noted stage I to 2 decubitus ulcer\coccyx and back covered with Mepilex HEAD: Normocephalic. EYES: No scleral icterus. No injection or drainage. NECK: Neck is obese. Right subclavian hemodialysis catheters clean dry and intact. Tracheostomy is clean dry and intact CARDIOVASCULAR: RRR. S1, S2 no S4 . No murmur RESPIRATORY: Diminished breath sounds throughout due to body habitus GASTROINTESTINAL: Abdomen obese, soft, non-tender, hypoactive active bowel sounds. G-tube is clean dry and intact MUSCULOSKELETAL: Crinkling of bilateral lower extremities. 1+ edema BUE. Neuro: Awake, makes eye contact and nods to questions. Currently following commands moving upper and lower extremity spontaneously. A/P Problem List: (1) ARDS (adult respiratory distress syndrome) ICD Code: J80 Status: Acute (2) CHF (congestive heart failure) ICD Code: I50.9 Status: Acute (3) Respiratory failure ICD Code: J96.90 Status: Acute (4) Pneumonia ICD Code: J18.9 Status: Acute Assessment and Plan Neuro/Psych: Acute toxic metabolic encephalopathy Agitated delirium Currently on Diprivan at 25 mics grams per kilogram per minute. Fentanyl allergy Continue Seroquel but increased to 75mg po q8h . Oxycodone 5 mg every 4 hours. Additional 5 mg q 4hours as needed EEG 09/09 moderate to severe encephalopathy Pulm: Acute hypercapnic and hypoxemic respiratory failure ARDS Pneumonia community-acquired, now with HCAP with carbapenem-resistant pseudomonas Probable JOE PRVC 16/650/1.08/05/39 Ventilator bundle Bronchodilator therapy every 4 hours and as needed Pulm has followed- Dr. Beck Gen surgery Dr. Ortega status post percutaneous tracheostomy 09/15 CV: Hypertension Dyslipidemia Elevated troponin - likely strain Metoprolol 12.5 mg by mouth 3 times a day Echo 3/20 showed EF 65-70% mild AR/TR Home medications HCTZ 12.5 milligrams daily currently on hold Home medication lovastatin 20 mg by mouth daily switched to Pravachol 20 mg a night. Renal/: Acute kidney injury - requiring hemodialysis Dr. Tan -nephrology following. Hemodialysis Sunday//Sunday MIKE: ATN from sepsis syndrome and diminished renal perfusion ; also aminoglycoside induced nephrotoxicity likely also contributing; possibly AIN -> per nephrology note Urine eosinophils negative. Renal ultrasound revealed no hydronephrosis s/p exchange Miller with funguria Monitor renal function Restarted on Bumex to IV twice a day Status post dialysis 09/20 on -4 L /2 GI: Elevated transaminases Cholelithiasis US liver: Fatty liver and cholelithiasis. Repeat 09/08 revealed cholelithiasis with no acute signs of cholecystitis. Recommend a HIDA scan if indicated On TF Nepro's 45 cc an hour and beneprotein 2 packs 3 times a day s/p PEG placement 09/01/[address] Stone Mac/Moses for bowel regimen. MiraLAX daily added for bowel regimen Pepcid 20 mg liquid daily GI prophylaxis ID: Pseudomonas pneumonia Funguria, Maribell glabrata and parapsilosis. Pertinent cultures blood and sputum cx 08/15- NG strep pneumonia and Legionella urinary Ag negative Blood cultures 08/28: NGTD C Diff negative 08/28. Lines changed 08/28. Sputum 08/30 - Pseudomonas Sputum 09/02 PSAE, resistant to carbapenem, intermediate to Levaquin. 09/07 - urine -Maribell Guilliermondii 09/07 - blood cultures 2 - no growth 09/09 - urine -strep veridians, Maribell parapsilosis 09/10 - blood cultures 2 -no growth 09/11 - broch washings -no growth to date 09/12 - urine -Maribell glabrata and parapsilosis 09/16 - blood cultures 2 - pending 09/16 - sputum -no growth 09/16 - urine -Maribell glabrata and parapsilosis Zosyn previously discontinued secondary to rash Has been off abx since 09/18 when ID discontinued Cefepime , tobramycin aerosols per infectious disease, diflucan, and Vfend. - ID following at a distance currently. 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 Warfarin started 09/23, held in the setting of possible GI bleed, restarted 09/26 at 2.5 mg daily Endo: Diabetes mellitus Hypothyroidism on SSI (medium scale) for glycemic control On Synthroid 200mcg daily. TSH 1.37 FEN: Hyperkalemia - resolved GI prophylaxis-Pepcid DVT - Heparin gtt - Continue , SCDs Lines: Peripheral IV. - PEG 09/01/16 - Trach 09/15 - Right subclavian US catheter placed 09/20 by IR. Critical Care: Critical Care: The total critical care time was 35 minutes. Time to perform other separately billable procedures was not included in the critical care time. Loree Marinelli, daughter (HCP): [phone] oRny Marinelli, significant other: [phone] Problem Qualifiers (1) CHF (congestive heart failure): Qualified Code: I50.9 - Acute congestive heart failure, unspecified congestive heart failure type (2) Respiratory failure: Qualified Code: J96.02 - Acute respiratory failure with hypercapnia (3) Pneumonia: Qualified Code: J18.9 - Pneumonia of both lungs due to infectious organism, unspecified part of lung Fadi Villa MD September 27, 2016 19:08 Fadi Villa MD September 27, 2016 19:08
[2016-09-27] MEDS: PRAVASTATIN SOD 20 MG TAB PO SCH (20:46)
[2016-09-27] MEDS: EUCERIN CREAM 120 GM JAR TOPICAL SCH (20:46)
[2016-09-28] VITALS (40 sets, daily range): BP systolic 104–144; BP diastolic 54–71; PULSE 70–93; RESP 12–18; TEMP 98–99.5; O2SAT 93–99
[2016-09-28] MEDS: HEPARIN-D5W 25,000 U/250 ML 250 ML IV SCH ×2 (02:54→15:12)
[2016-09-28] MEDS: PROPOFOL 1000 MG/100 ML INJ 100 ML IV SCH ×4 (02:55→18:03)
[2016-09-28] MEDS: CHLORHEXIDINE GLUCONATE 2 % 1 PACK (2 CLOTHS) TOP SCH (04:00)
[2016-09-28 04:26] LABS: HEMATOCRIT 21.9 % (35.0-46.0); MEAN CORPUSCULAR HEMOGLOBIN 27.5 PG (27.0-34.0); MEAN CORPUSCULAR HGB CONC 32.7 % (32.0-36.0); PLATELET COUNT 262 TH/MM3 (150-450); RED BLOOD COUNT 2.61 MIL/MM3 (4.00-5.30); RED CELL DISTRIBUTION WIDTH 18.9 % (11.6-17.2); REVIEW FLAG FINAL; WHITE BLOOD COUNT 11.9 TH/MM3 (4.0-11.0)
[2016-09-28] MEDS: oxyCODONE HCL ORAL CONC 20 MG/ML SYRINGE G-TUBE SCH ×5 (04:32→21:15)
[2016-09-28 04:43] LABS: POTASSIUM 4.1 MEQ/L (3.5-5.1)
[2016-09-28 05:28] LABS: APTT (PATIENT) 41.1 SEC (24.3-30.1); PROTHROMBIN TIME - PATIENT 10.6 SEC (9.8-11.6)
[2016-09-28] MEDS: LEVOTHYROXINE SODIUM 200 MCG TAB PO SCH (05:36)
[2016-09-28] MEDS: METOCLOPRAMIDE HCL 10 MG/2 ML VIAL IV PUSH SCH ×3 (05:36→21:16)
[2016-09-28] MEDS: QUEtiapine FUMARATE 25 MG TAB PO SCH ×3 (05:36→21:15)
[2016-09-28] MEDS: METOPROLOL TARTRATE 25 MG TAB G-TUBE SCH ×3 (05:36→21:15)
[2016-09-28] MEDS: RESP: ALBUTEROL 2.5 MG/IPRATROPIUM 0.5 MG NEB (SCH) INH ×3 (08:23→20:22)
[2016-09-28] MEDS: BENEPROTEIN POWDER 1 PACK G-TUBE SCH ×3 (09:00→18:00)
[2016-09-28] MEDS: DOCUSATE SODIUM 100 MG/10 ML UDC PO SCH ×2 (09:00→21:15)
[2016-09-28] MEDS: FAMOTIDINE 20 MG TAB NG SCH (09:00)
[2016-09-28] MEDS: SODIUM CHLORIDE 0.9% FLUSH 10 ML FLUSH IVF SCH (09:00)
[2016-09-28] MEDS: ARTIFICIAL TEARS OPTH SOLN 15 ML BTL EACH EYE SCH ×3 (09:00→18:04)
[2016-09-28] MEDS: POLYETHYLENE GLYCOL 17 GM PKG PO SCH (09:00)
[2016-09-28] MEDS: EUCERIN CREAM 120 GM JAR TOPICAL SCH ×2 (09:00→21:17)
[2016-09-28] MEDS: SENNOSIDES SYRUP 8.8 MG/5 ML CUP PO SCH ×2 (09:00→21:15)
[2016-09-28] MEDS: CALCIUM ACETATE 667 MG CAP PO SCH ×3 (09:00→18:03)
[2016-09-28] MEDS: BUMETANIDE INJ 1 MG/4 ML VIAL IV PUSH SCH ×2 (09:00→18:04)
[2016-09-28] MEDS: SODIUM CHLORIDE 0.9% FLUSH 10 ML FLUSH IV FLUSH SCH ×2 (09:00→21:15)
[2016-09-28] MEDS: MANNITOL 12.5 GM/50 ML VIAL IV PRN (09:30)
[2016-09-28] MEDS: SODIUM CHLOR 0.9% 1000 ML INJ 1,000 ML IV PRN (09:31)
[2016-09-28] MEDS: GENTAMICIN SULFATE (DIALYSIS USE ONLY) 20 MG/2 ML VIAL IV PRN (09:31)
[2016-09-28] MEDS: ALBUMIN HUMAN 25% 25 GM/100 ML BAGP IV PRN (09:31)
[2016-09-28] MEDS: HEPARIN SODIUM - IV 10,000 UNITS/10 ML VIAL PRN (09:31)
[2016-09-28] MEDS: PANTOPRAZOLE SODIUM 40 MG VIAL IV PUSH SCH (11:00)
--- NOTE | 2016-09-28 11:26 | HHI.CCPN ---
Subjective Remarks/Hospital Course 56-year-old morbidly obese female brought in the emergency department in respiratory distress. She was intubated by ER attending. She has been sick for about a week with symptoms consistent with UTI. She's had fevers and chills. She's been short of breath. She's had fatigue. She has had a cough and chest pain with coughing. The family reports that she's been delirious for the last 3 days. 08/15 Patient is sedated with Diprivan, Versed, Fentanyl and intubated. CTA chest showed no PE multifocal consolidation greatest in RLL. Tmax 100.6 08/16 Patient is sedated with Diprivan and Fentanyl. Afebrile. CXR this morning showed increase consolidation. 08/17 Patient remains sedated and intubated. T:100.4 On PRVC/AC RR 18, Tv 500, IT :1.0 PEEP:10, FIO2 75% 08/18 Remains sedated and intubated. Afebrile. CXR this morning unchanged bibasilar infiltrates and effusions. 08/19 Patient was placed on rotoprone bed last night for proning sedated with Diprivan, Versed and Fentnayl in addition she is on Nimbex. On PRVC/AC RR 20, TV 400, IT:1.1, PEEP:14 and FIO2 80%. Afebrile. 08/20 Patient remains sedated and intubated. Remains on PRVC/AC mode with improvements in her oxygenation on FIO2 50% from 80% yesterday and PEEP:12. 08/21 Patient remains sedated and intubated. On PRVC/AC mode with RR 20, TV 400, IT:1.1, PEEP: 12 and FIO2 50%. Afebrile. 08/22 No acute events overnight. Remains sedated, intubated and on Nimbex.. T: 99.8. On PRVC mode with PEP: 12, FIO2 50%. CXR from yesterday showed better aeration, RLL infiltrate unchanged. 08/23 Chest x-ray worsening. Methylprednisolone taper to twice a day by pulmonary. The patient's FiO2 was found to be 100% this a.m., will continue to wean. 08/24: 1 desat episode yesterday when supine. still remains prone now. no vasopressors. sedated and paralyzed. 08/25: flolan added yesterday. fio2 down to 60%. remained supine all night. still on neuromuscular blockade. net -500cc/24h. 08/26: good diuresis. remained supine. fio2 70%. weaning flolan. remains with significant respiratory support and high peep despite 6L diuresis overnight. Cr still stable. 08/27: continues with good diuresis. net negative 3L/24h. fio2 down to 55%. flolan off. still high peep. not ready for SBT. more agitated today. Cr remains stable despite aggressive diuresis. 08/28: diuresis continues. -3.3L/24h. spiked fever overnight with a jump in wbc to 16 this AM. fio2 60%, but her pulmonary improvements have plateaued at this point. still on peep 12. 08/29: net -1.7L/24h. Cr starting to rise. still spiking fevers despite vanc/ cefepime added yesterday. wbc continues to rise. clinically appears infected, although unclear source. peep 10, fio2 60%. will likely need trach. 08/30: net +800cc, but Cr downtrending. appears clinically euvolemic. fever curve downtrending. wbc downtrending. on 40% fio2, peep 8 today. still following commands. 08/31: failed SBT after only 45 minutes yesterday. intubated for > 2 weeks at this point. will attempt to pursue trach/peg today. will continue with pulmonary strengthening. daily SBTs. 09/01 CXR showing increasing bibasilar infiltrate. Failed C Pap trial in 5 minutes due to severe tachypnea. PEG tube today. Family has not decided on trach yet 09/02: Patient febrile to 101.1, CXR increased infiltrate Tmax Tmax 101.1. Currently 9.7 left upper lung and right lower lobe. Pancultured. Cefepime added today and one dose of vancomycin. Continues to fail C Pap trial due to tachypnea and respiratory distress 09/03: Remains hypoxemic on 75% oxygen with new pneumonia. Sputum culture 09/02/16 with GNR. Family agreeable for tracheostomy but patient is not stable at this point for trach 09/04: still on 70% fio2. still hypoxic. pneumonia persists. needs trach, but too unstable at this point. 09/05: remains on 75% fio2. pseudomonas sensitivities came back resistant to carbapenems, intermediate to levaquin. still spiking fevers. not clinically improving. wbc remains elevated. 09/06: Remains on 12 of PEEP and FiO2 75%. Zosyn and tobramycin started yesterday. WBC count trending down today 11.5 from 13.1. Remains heavily sedated for ventilator synchrony. MAXIMUM TEMPERATURE 100.3 09/07: Continues to spike fever. CXR unchanged. WBC count improving. PEEP 14. FiO2 60%. Will start IV Bumex 1mg IV q12 09/09: Tolerating tube feeds at goal. Afebrile. No documented bowel movement. Currently sedated on the ventilator 09/10: Tmax 99.7. Currently 99.4. No bowel movement yesterday. None document since 09/04. Arousable on the ventilator 09/11: Tmax 102.6. Currently 100. Positive BM. Arousable on the ventilator. Tolerating tube feeds. Central line changed yesterday. Plan for bronchoscopy at 1 PM. 09/12: Tmax 100.1. Currently afebrile. Follows commands today. Wiggles toes and give thumbs up appropriately. MRI brain canceled. Tolerating tube feeding with positive BM. Tracheostomy currently planned for . 09/13: Tmax 102. Again on sedation [place] commands by wiggling toes bilaterally and giving thumbs up bilaterally appropriate. Tolerating tube feeding with positive BM. Tracheostomy planned for tomorrow with Dr. Ortega. 09/14: Low grade fever. CXR showing more prominent infiltrate on the right lower lobe and left upper lobe. WBC trending up still in normal range. Patient is on 40% FiO2 but continues to fail CPAP due to tachypnea 09/15: Remains intubated sedated, unable to wean off the vent. Plan for tracheostomy today with Dr. Ortega. Continues to have low grade fever. CXR with persistent bibasilar infiltrates 09/16: Tmax 101.1. Currently 100.7. Awake and alert. Following commands. 09/17: Afebrile. Currently on PSV trial. Tolerating tube feeds. One bowel movement. Noted decreased urine output past 48 hours. Diuretics have been discontinued. This a.m. creatinine currently pending. 09/18: Afebrile. Adequate urine output yesterday but decreased 150 past 8 hours. Tolerating tube feeds. One bowel movement. Not tolerating PSV trials today. 09/19: Tmax 100.5. Urine output picking up. Tolerating tube feeds. No bowel movement 48 hours. Not tolerating PSV trials. 09/20: Diffuse drug morbilliform exanthem noted this a.m. Tmax 100.6. Urine output around 20 cc an hour. Not tolerating PSV trials. Possibly new right pleural effusion noted on chest x-ray. Will need hemodialysis 09/21: Tmax 100.6 currently 98.7. -4 L with hemodialysis yesterday and today. FiO2 to 60%. Tolerating tube feeds. Positive BM. Still requiring sedation 09/22: Afebrile. Tolerating tube feeds. Positive BM. 30 g per kilogram per minute of propofol. Tolerated PSV trials 3 hours today 09/23 HD today with 3.5 L removal. Tolerating CPAP for 8 hours, currently 45% with RSBI 45%. 09/24 Called by RN this morning for concern for bloody BMs. Placed heparin and warfarin on hold. Serial Hgb ordered. Hgb 9.3 -->8.6 and hemodynamically unchanged. Started on protonix drip. Heme stool is negative and now RN states she is concerned about the adequacy of specimen, so sending repeat. Had asked GI to see, however further workup will not be indicated if hemoccult is negative. Tolerating PSV 05/06 09/25: heparin restarted. hemocult negative x 2. 09/26: no changes. still failing cpap trials. 09/27: Tmax 101.5. Currently 99.5. Resting on Diprivan drip at 25 mcg/kg/m. Currently tolerating tube feeding.. One bowel movement. Subjective 09/28: Hemoglobin trending downward. Transfusing 1 unit PRBCs with hemodialysis today. Currently afebrile. Appears comfortable ventilator 2 bowel movements Objective Vital Signs Date Time Temp Pulse Resp B/P Pulse Ox O2 Delivery O2 Flow Rate FiO2 09/28/16 09:30 85 117/56 93 09/28/16 08:23 40 09/28/16 08:00 98.7 09/28/16 05:36 16 Intake and Output 09/27/16 09/27/16 09/28/16 08:00 16:00 00:00 Intake Total 625 ml 1104 ml 924 ml Output Total 85 ml 100 ml 200 ml Balance 540 ml 1004 ml 724 ml Result Diagram: 09/28/16 0340 09/28/16 0340 Other Results Microbiology Date/Time Procedure Status Source Growth 09/24/16 07:45 Stool Occult Blood (BRITTANI) - Final Complete Stool Stool HEMOCCULT NEGATIVE Imaging Last Impressions Chest X-Ray 09/25/16 0600 Signed Impressions: Service Date/Time: Sunday, September 25, 2016 04:36 - CONCLUSION: 1. Cardiomegaly and findings of vascular congestion without overt failure. Small right effusion 2. There has been no significant change when compared to the prior exam. Didier Zhang MD Catheter Placement X-Ray 09/20/16 0000 Signed Impressions: Service Date/Time: Tuesday, September 20, 2016 11:11 - CONCLUSION: Uncomplicated line placement as above. Beto Barbosa MD Renal Ultrasound 09/17/16 0000 Signed Impressions: Service Date/Time: Saturday, September 17, 2016 13:31 - CONCLUSION: Negative renal sonogram. Taco Davidson MD Upper Extremity Ultrasound 09/14/16 0000 Signed Impressions: Service Date/Time: August 08:32 - CONCLUSION: There is thrombus within the left subclavian and internal jugular veins. Danyel Escalante MD Lower Extremity Ultrasound 09/13/16 0000 Signed Impressions: Service Date/Time: Tuesday, September 13, 2016 22:33 - CONCLUSION: Normal examination. Leonides Mason MD Liver Ultrasound 09/08/16 0000 Signed Impressions: Service Date/Time: Thursday, September 08, 2016 08:45 - CONCLUSION: 1. Cholelithiasis with distended gallbladder. However, there are no associated findings present to diagnose acute cholecystitis. If there is persistent clinical concern for acute cholecystitis could evaluate for cystic duct obstruction with hepatobiliary scintigraphy. 2. Hepatomegaly with very heterogeneous echotexture and steatosis. Dejan Allison MD Gall Bladder Ultrasound 08/29/16 0000 Signed Impressions: Service Date/Time: Monday, August 29, 2016 15:21 - CONCLUSION: 1. Hepatomegaly with heterogeneous echotexture throughout the liver. 2. There is a large echogenic area near the neck of the gallbladder suggestive of a stone, but despite its large size, demonstrates no acoustic shadowing in any of the views. Taco Davidson MD CT Angiography 08/15/16 0000 Signed Impressions: Service Date/Time: Monday, August 15, 2016 02:33 - CONCLUSION: 1. No evidence for pulmonary embolism. 2. Multifocal consolidation greatest in the right lower lobe and associated adenopathy. Terry Estrada MD Objective Remarks GENERAL: 56 yo female currently resting in bed mechanically ventilated SKIN: Warm and dry. Skin is flaky. Rash is resolved. Noted stage I to 2 decubitus ulcer\coccyx and back covered with Mepilex HEAD: Normocephalic. EYES: No scleral icterus. No injection or drainage. NECK: Neck is obese. Right subclavian hemodialysis catheters clean dry and intact. Tracheostomy is clean dry and intact CARDIOVASCULAR: RRR. S1, S2 no S4 . No murmur RESPIRATORY: Diminished breath sounds throughout due to body habitus GASTROINTESTINAL: Abdomen obese, soft, non-tender, hypoactive active bowel sounds. G-tube is clean dry and intact MUSCULOSKELETAL: Crinkling of bilateral lower extremities. 1+ edema BUE. Neuro: Awake, makes eye contact and nods to questions. Currently following commands moving upper and lower extremity spontaneously. A/P Problem List: (1) ARDS (adult respiratory distress syndrome) ICD Code: J80 Status: Acute (2) CHF (congestive heart failure) ICD Code: I50.9 Status: Acute (3) Respiratory failure ICD Code: J96.90 Status: Acute (4) Pneumonia ICD Code: J18.9 Status: Acute Assessment and Plan Neuro/Psych: Acute toxic metabolic encephalopathy Agitated delirium Currently on Diprivan at 25 mics grams per kilogram per minute. Fentanyl allergy Continue Seroquel 75mg po q8h . Oxycodone 5 mg every 4 hours. Additional 5 mg q 4hours as needed EEG 09/09 moderate to severe encephalopathy Pulm: Acute hypercapnic and hypoxemic respiratory failure ARDS Pneumonia community-acquired, now with HCAP with carbapenem-resistant pseudomonas Probable JOE PRVC 16/650/1.3/40 Ventilator bundle Bronchodilator therapy every 4 hours and as needed Pulm has followed- Dr. Beck Gen surgery Dr. Ortega status post percutaneous tracheostomy 09/15 CV: Hypertension Dyslipidemia Elevated troponin - likely strain Metoprolol 12.5 mg by mouth 3 times a day Echo 08/14 showed EF 65-70% mild AR/TR Home medications HCTZ 12.5 milligrams daily currently on hold Home medication lovastatin 20 mg by mouth daily switched to Pravachol 20 mg a night. Renal/: Acute kidney injury - requiring hemodialysis Dr. Tan -nephrology following. Hemodialysis Sunday//Sunday MIKE: ATN from sepsis syndrome and diminished renal perfusion ; also aminoglycoside induced nephrotoxicity likely also contributing; possibly AIN -> per nephrology note Urine eosinophils negative. Renal ultrasound revealed no hydronephrosis s/p exchange Miller with funguria Monitor renal function Restarted on Bumex to IV twice a day Status post dialysis 09/20 on -4 L /2 GI: Elevated transaminases Cholelithiasis US liver: Fatty liver and cholelithiasis. Repeat 09/08 revealed cholelithiasis with no acute signs of cholecystitis. Recommend a HIDA scan if indicated On TF Nepro's 45 cc an hour and beneprotein 2 packs 3 times a day s/p PEG placement 09/01/[address] Stone Mac/Msoes for bowel regimen. MiraLAX daily added for bowel regimen Pepcid 20 mg liquid daily GI prophylaxis ID: Pseudomonas pneumonia Funguria, Maribell glabrata and parapsilosis. Pertinent cultures blood and sputum cx 08/15- NG strep pneumonia and Legionella urinary Ag negative Blood cultures 08/28: NGTD C Diff negative 08/28. Lines changed 08/28. Sputum 08/30 - Pseudomonas Sputum 09/02 PSAE, resistant to carbapenem, intermediate to Levaquin. 09/07 - urine -Maribell Guilliermondii 09/07 - blood cultures 2 - no growth 09/09 - urine -strep viridans, Maribell parapsilosis 09/10 - blood cultures 2 -no growth 09/11 - broch washings -no growth to date 09/12 - urine -Maribell glabrata and parapsilosis 09/16 - blood cultures 2 - pending 09/16 - sputum -no growth 09/16 - urine -Maribell glabrata and parapsilosis Zosyn previously discontinued secondary to rash Has been off abx since 09/18 when ID discontinued Cefepime, tobramycin aerosols , Diflucan, and Vfend. - ID following at a distance currently. 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 Warfarin started 09/23, held in the setting of possible GI bleed, restarted 09/26 at 2.5 mg daily Transfusing 1 unit PRBCs with hemodialysis today. Hemoccult negative 2. Endo: Diabetes mellitus Hypothyroidism on SSI (medium scale) for glycemic control On Synthroid 200mcg daily. TSH 1.37 FEN: Hyponatremia For hemodialysis Sunday/ and Sunday.. GI prophylaxis-Pepcid DVT - Heparin gtt - Continue , SCDs Lines: Peripheral IV. - PEG 09/01/16 - Trach 09/15 - Right subclavian US catheter placed 09/20 by IR. Critical Care: Critical Care: The total critical care time was 35 minutes. Time to perform other separately billable procedures was not included in the critical care time. Loree Marinelli, daughter (HCP): [phone] Rony Marinelli, significant other: [phone] Problem Qualifiers (1) CHF (congestive heart failure): Qualified Code: I50.9 - Acute congestive heart failure, unspecified congestive heart failure type (2) Respiratory failure: Qualified Code: J96.02 - Acute respiratory failure with hypercapnia (3) Pneumonia: Qualified Code: J18.9 - Pneumonia of both lungs due to infectious organism, unspecified part of lung Fadi Villa MD September 28, 2016 11:25
--- NOTE | 2016-09-28 12:23 | HHI.NPPN ---
Subjective General Problems: Edema, Hypotension, Obesity Renal Failure: Acute Interval History Seen during dialysis. No changes. (Genny Lowery) Review of Systems General General Remarks unable to evaluate (Genny Lowery) Objective Data Data 09/27/16 09/28/16 19:00 07:00 Intake Total 1104 ml 1335 ml Output Total 100 ml 285 ml Balance 1004 ml 1050 ml Intake Oral 0 ml IV Total 621 ml 599 ml Tube Feeding 383 ml 636 ml Other 100 ml 100 ml Output Urine Total 100 ml 285 ml # Bowel Movements 1 1 Vital Signs Date Time Temp Pulse Resp B/P Pulse Ox O2 Delivery O2 Flow Rate FiO2 09/28/16 09:30 85 117/56 93 09/28/16 09:15 81 130/63 96 09/28/16 09:00 72 104/54 96 09/28/16 08:45 72 117/59 96 09/28/16 08:30 74 132/62 97 09/28/16 08:23 96 40 09/28/16 08:15 70 111/58 96 09/28/16 08:00 98.7 73 124/58 96 09/28/16 08:00 40 09/28/16 05:36 16 09/28/16 04:01 95 40 09/28/16 04:00 40 09/28/16 04:00 98.2 93 12 144/71 99 09/28/16 00:11 97 40 09/28/16 00:00 98.2 75 12 118/59 97 09/28/16 00:00 40 09/27/16 20:00 98.8 83 12 107/57 95 09/27/16 20:00 40 09/27/16 19:48 100 40 09/27/16 16:00 99.6 104 125/61 96 09/27/16 16:00 40 09/27/16 15:00 104 126/58 95 09/27/16 14:45 104 124/58 95 09/27/16 14:30 106 127/58 95 09/27/16 14:18 93 40 09/27/16 14:15 109 130/60 95 09/27/16 14:00 100.0 111 130/61 95 09/27/16 13:45 112 132/62 94 09/27/16 13:35 24 09/27/16 13:30 114 134/62 95 09/27/16 13:15 100.5 115 141/62 94 09/27/16 13:00 117 140/66 94 09/27/16 12:45 119 137/67 94 09/27/16 12:30 123 145/69 94 (Genny Lowery) -: 09/28/16 0340 09/28/16 0340 Tubes & Lines: Miller Tubes & Lines Comment trach, PEG Drip Comment heparin, propofol (Genny Lowery) Physical Exam General Appearance: Well Developed, No Acute Distress, Comfortable, Obese Appearance Remarks eyes open with blank stare, no eye movements (Genny Lowery) Throat Throat Exam: Oral Mucosa [place] & Moist (Genny Lowery) Neck Neck Exam: Neck Supple Neck Remarks trach (Genny Lowery) Pulmonary Resp Remarks vented lung sounds clear in upper palafox (Genny Lowery) Cardiology CV Exam: Regular, Normal Sinus Rhythm (Genny Lowery) Gastrointestinal/Abdomen GI Exam: Soft, Bowel Sounds Present GI Remarks morbidly obese, + PEG infusing (Genny Lowery) Musculoskeletal MS Exam: Joints Intact, Good Strength, Unable to Ambulate (Genny Lowery) Integumentary Skin Exam: Warm, Dry Skin Remarks dry flaking skin (Genny Lowery) Extremeties Extremities Exam: Pedal Pulses Palpable, Moderate Edema, Pitting Edema ( Genny Lowery) Neurologic Neuro Exam: Unresponsive, Sedated (Genny Lowery) VTE Prophylaxis Device: SCDs (Genny Lowery) Assessment/Plan Assessment Summary: MIKE/Acute Renal Failure, Acute Tubular Necrosis, Fluid/ Volume Overload, Hypotension Electrolyte Assessment: Hyponatremia Problem List: (1) Acute kidney injury Plan: In a pt with normal renal function at baseline MIKE: ATN from sepsis syndrome and diminished renal perfusion ; also aminoglycoside induced nephrotoxicity likely also contributing; possibly AIN HD initiated 09/20; currently on TTS schedule seen during dialysis on a 3K, 300 BFR, goal 4L consult IR for permcath placement tomorrow obtain daily renal panel continue PhosLo for hyperphosphatemia Nepro tube feeding , avoid free water flushes due to hyponatremia Avoid nephrotoxic agents. Avoid IVF await signs of renal recovery Continue supportive care. 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 Ween when able (3) Anemia Plan: worsening anemia, recent stool for occult bleeding negative x 2 on heparin also on protonix GI following, transfuse PRN (4) Pneumonia Plan: Pseudomonas in the sputum. ID following. monitor the pt clinically, she is currently off antibiotics afebrile today (5) Hypothyroidism Plan: on synthroid (6) Morbid obesity (7) DVT (deep venous thrombosis) Plan: in IJ after central line was placed on heparin bridge to coumadin will need anticoagulants held pre procedure (Genny Lowery) Plan patient was seen and examined. Monitor urine output, remains oliguric, but there may be mild improvement in urine output. Needs PermCath. (Anshu Tan MD) Problem Qualifiers (1) Pneumonia: Qualified Code: J18.9 - Pneumonia of both lungs due to infectious organism, unspecified part of lung Genny Lowery September 28, 2016 12:23 Anshu Tan MD September 28, 2016 20:34
--- NOTE | 2016-09-28 12:56 | HHI.HCPN ---
Reason for visit a. To assist with evaluation and management of symptoms including: dyspnea, pain. b. To assist medical decision maker(s) with: better understanding of current medical conditions; weighing benefits/burdens of medical treatment options; making medical treatment decisions. . Subjective/Interval History Patient seen and examined in ICU. Discussed with Dr. Villa. Remains on mech vent. FiO2 40%. Completing dialysis when I visit, removal of 4 liters. LBM 09/28/16. Opens eyes to voice. Tmax 100.0. WBC 11.9, hemoglobin 7.2, hematocrit 21.9, platelet 262. Creatinine 3.82. Tolerating tube feeding. No new imaging. . Family/friend interactions Left message for daughterLoree to attempt to arrange family meeting to further clarify treatment goals. . Advance Directives Living Will: Never completed Health Care Surrogate: Never completed Durable Power of Secondary Connector Armature: Never completed Advance Directive Specifics Health Care Surrogate(s): No known written advance directives. Patient is currently incapacitated to make her own health care decisions, uncertain if she will regain capacity. According to [place] statutes, health care proxy decision-making falls to the patient's daughterLoree. Patient is not legally . . Significant change in goals: FULL CODE. Goals remain aggressive at this time. . Objective Vital Signs Date Time Temp Pulse Resp B/P Pulse Ox O2 Delivery O2 Flow Rate FiO2 09/28/16 12:15 93 40 09/28/16 09:30 85 117/56 93 09/28/16 09:15 81 130/63 96 09/28/16 09:00 72 104/54 96 09/28/16 08:45 72 117/59 96 09/28/16 08:30 74 132/62 97 09/28/16 08:23 96 40 09/28/16 08:15 70 111/58 96 09/28/16 08:00 98.7 73 124/58 96 09/28/16 08:00 40 09/28/16 05:36 16 09/28/16 04:01 95 40 09/28/16 04:00 40 09/28/16 04:00 98.2 93 12 144/71 99 09/28/16 00:11 97 40 09/28/16 00:00 98.2 75 12 118/59 97 09/28/16 00:00 40 09/27/16 20:00 98.8 83 12 107/57 95 09/27/16 20:00 40 09/27/16 19:48 100 40 09/27/16 16:00 99.6 104 125/61 96 09/27/16 16:00 40 09/27/16 15:00 104 126/58 95 09/27/16 14:45 104 124/58 95 09/27/16 14:30 106 127/58 95 09/27/16 14:18 93 40 09/27/16 14:15 109 130/60 95 09/27/16 14:00 100.0 111 130/61 95 09/27/16 13:45 112 132/62 94 09/27/16 13:35 24 09/27/16 13:30 114 134/62 95 09/27/16 13:15 100.5 115 141/62 94 09/27/16 13:00 117 140/66 94 Intake & Output 09/28/16 09/28/16 07:00 19:00 Intake Total 1335 ml Output Total 285 ml 4000 ml Balance 1050 ml -4000 ml Intake Oral 0 ml IV Total 599 ml Tube Feeding 636 ml Other 100 ml Output Urine Total 285 ml Hemodialysis 4000 ml # Bowel Movements 1 Physical Exam CONSTITUTIONAL/GENERAL: This is an adequately nourished, critically ill patient , sedated on mechanical ventilation. TUBES/LINES/DRAINS: tracheostomy to vent, PEG tube, right upper arm IV,Miller, podus boots, specialty bed. SKIN: severe dry, flaking skin all extremities. ENT: opens eyes to voice. + injection. CARDIOVASCULAR: Regular rate and rhythm without murmurs, gallops, or rubs. RESPIRATORY/CHEST: Symmetric on mechanical vent. Scattered rhonchi noted. GASTROINTESTINAL: Abdomen protuberant, soft, non-tender, nondistended. Bowel sounds hypoactive. GENITOURINARY: Without palpable bladder distension. Miller catheter in place. MUSCULOSKELETAL: Extremities with edema. No mottling or clubbing. NEUROLOGICAL: sedated. Opens eyes to voice. PSYCHIATRIC: sedated. . Diagnostic Tests Laboratory Laboratory Tests Test 09/25/16 09/25/16 09/26/16 09/26/16 15:55 19:04 04:13 12:07 Hemoglobin 8.0 GM/DL 8.4 GM/DL (11.6-15.3) (11.6-15.3) Activated Partial 33.3 SEC 34.9 SEC 50.5 SEC Thromboplast Time (24.3-30.1) (24.3-30.1) (24.3-30.1) White Blood Count 12.4 TH/MM3 (4.0-11.0) Red Blood Count 3.01 MIL/MM3 (4.00-5.30) Hematocrit 25.6 % (35.0-46.0) Mean Corpuscular Volume 85.0 FL (80.0-100.0) Mean Corpuscular Hemoglobin 28.1 PG (27.0-34.0) Mean Corpuscular Hemoglobin 33.0 % Concent (32.0-36.0) Red Cell Distribution Width 19.5 % (11.6-17.2) Platelet Count 256 TH/MM3 (150-450) Mean Platelet Volume 8.3 FL (7.0-11.0) Prothrombin Time 10.3 SEC (9.8-11.6) Prothromb Time International 0.9 RATIO Ratio Sodium Level 127 MEQ/L (136-145) Potassium Level 5.5 MEQ/L (3.5-5.1) Chloride Level 88 MEQ/L (98-107) Carbon Dioxide Level 23.6 MEQ/L (21.0-32.0) Anion Gap 15 MEQ/L (5-15) Blood Urea Nitrogen 82 MG/DL (7-18) Creatinine 3.85 MG/DL (0.50-1.00) Estimat Glomerular Filtration 12 ML/MIN (>89) Rate Random Glucose 100 MG/DL (74-106) Calcium Level 9.1 MG/DL (8.5-10.1) Test 09/26/16 09/27/16 09/27/16 09/27/16 18:45 04:26 06:35 14:20 Activated Partial 46.9 SEC 122.8 SEC 45.0 SEC 42.0 SEC Thromboplast Time (24.3-30.1) (24.3-30.1) (24.3-30.1) (24.3-30.1) White Blood Count 14.6 TH/MM3 (4.0-11.0) Red Blood Count 2.77 MIL/MM3 (4.00-5.30) Hemoglobin 7.8 GM/DL (11.6-15.3) Hematocrit 23.6 % (35.0-46.0) Mean Corpuscular Volume 85.3 FL (80.0-100.0) Mean Corpuscular Hemoglobin 28.1 PG (27.0-34.0) Mean Corpuscular Hemoglobin 32.9 % Concent (32.0-36.0) Red Cell Distribution Width 18.9 % (11.6-17.2) Platelet Count 262 TH/MM3 (150-450) Mean Platelet Volume 8.2 FL (7.0-11.0) Prothrombin Time 11.1 SEC (9.8-11.6) Prothromb Time International 1.0 RATIO Ratio Sodium Level 131 MEQ/L (136-145) Potassium Level 4.1 MEQ/L (3.5-5.1) Chloride Level 91 MEQ/L (98-107) Carbon Dioxide Level 25.6 MEQ/L (21.0-32.0) Anion Gap 14 MEQ/L (5-15) Blood Urea Nitrogen 56 MG/DL (7-18) Creatinine 3.16 MG/DL (0.50-1.00) Estimat Glomerular Filtration 15 ML/MIN (>89) Rate Random Glucose 124 MG/DL (74-106) Calcium Level 8.6 MG/DL (8.5-10.1) Test 09/28/16 09/28/16 03:40 10:40 White Blood Count 11.9 TH/MM3 (4.0-11.0) Red Blood Count 2.61 MIL/MM3 (4.00-5.30) Hemoglobin 7.2 GM/DL (11.6-15.3) Hematocrit 21.9 % (35.0-46.0) Mean Corpuscular Volume 84.0 FL (80.0-100.0) Mean Corpuscular Hemoglobin 27.5 PG (27.0-34.0) Mean Corpuscular Hemoglobin 32.7 % Concent (32.0-36.0) Red Cell Distribution Width 18.9 % (11.6-17.2) Platelet Count 262 TH/MM3 (150-450) Mean Platelet Volume 7.9 FL (7.0-11.0) Prothrombin Time 10.6 SEC (9.8-11.6) Prothromb Time International 1.0 RATIO Ratio Activated Partial 41.1 SEC Thromboplast Time (24.3-30.1) Sodium Level 127 MEQ/L (136-145) Potassium Level 4.1 MEQ/L (3.5-5.1) Chloride Level 88 MEQ/L (98-107) Carbon Dioxide Level 25.0 MEQ/L (21.0-32.0) Anion Gap 14 MEQ/L (5-15) Blood Urea Nitrogen 74 MG/DL (7-18) Creatinine 3.82 MG/DL (0.50-1.00) Estimat Glomerular Filtration 12 ML/MIN (>89) Rate Random Glucose 92 MG/DL (74-106) Calcium Level 8.7 MG/DL (8.5-10.1) Blood Type A NEGATIVE Antibody Screen NEGATIVE Crossmatch Leukocyte-Reduced Red Blood Cells Blood Bank Comment Result Diagram: 09/28/16 0340 09/28/16 0340 Microbiology Microbiology Date/Time Procedure Status Source Growth 09/24/16 07:45 Stool Occult Blood (BRITTANI) - Final Complete Stool Stool HEMOCCULT NEGATIVE . Imaging Last Impressions Chest X-Ray 09/25/16 0600 Signed Impressions: Service Date/Time: Sunday, September 25, 2016 04:36 - CONCLUSION: 1. Cardiomegaly and findings of vascular congestion without overt failure. Small right effusion 2. There has been no significant change when compared to the prior exam. Didier Zhang MD Catheter Placement X-Ray 09/20/16 0000 Signed Impressions: Service Date/Time: Tuesday, September 20, 2016 11:11 - CONCLUSION: Uncomplicated line placement as above. Beto Barbosa MD Renal Ultrasound 09/17/16 0000 Signed Impressions: Service Date/Time: Saturday, September 17, 2016 13:31 - CONCLUSION: Negative renal sonogram. Taco Davidson MD Upper Extremity Ultrasound 09/14/16 0000 Signed Impressions: Service Date/Time: August 08:32 - CONCLUSION: There is thrombus within the left subclavian and internal jugular veins. Danyel Escalante MD Lower Extremity Ultrasound 09/13/16 0000 Signed Impressions: Service Date/Time: Tuesday, September 13, 2016 22:33 - CONCLUSION: Normal examination. Leonides Mason MD Liver Ultrasound 09/08/16 0000 Signed Impressions: Service Date/Time: Thursday, September 08, 2016 08:45 - CONCLUSION: 1. Cholelithiasis with distended gallbladder. However, there are no associated findings present to diagnose acute cholecystitis. If there is persistent clinical concern for acute cholecystitis could evaluate for cystic duct obstruction with hepatobiliary scintigraphy. 2. Hepatomegaly with very heterogeneous echotexture and steatosis. Dejan Allison MD Gall Bladder Ultrasound 08/29/16 0000 Signed Impressions: Service Date/Time: Monday, August 29, 2016 15:21 - CONCLUSION: 1. Hepatomegaly with heterogeneous echotexture throughout the liver. 2. There is a large echogenic area near the neck of the gallbladder suggestive of a stone, but despite its large size, demonstrates no acoustic shadowing in any of the views. Taco Davidson MD CT Angiography 08/15/16 0000 Signed Impressions: Service Date/Time: Monday, August 15, 2016 02:33 - CONCLUSION: 1. No evidence for pulmonary embolism. 2. Multifocal consolidation greatest in the right lower lobe and associated adenopathy. Terry Estrada MD . Procedures * 09/01/16 PEG tube placed * 08/28/16 left subclavian central line placed * 08/18/16 right arterial line placed * 08/18/16 right IJ central line placed * 08/14/16 intubation . Assessment and Plan Disease Oriented Problem List: (1) ARDS (adult respiratory distress syndrome) (2) acute hypercapneic and hypoxemic respiratory failure (3) HCAP (healthcare-associated pneumonia) (4) CHF (congestive heart failure) (5) Morbid obesity (6) Hypothyroidism (7) Dyslipidemia (8) Metabolic encephalopathy Symptom Scale: (1) Pain 0-10 Scale: Unable to quantify Comment: Sedated propofol. (2) Dyspnea 0-10 Scale: Unable to quantify Comment: Remains on mechanical ventilation, sedated with propofol Pertinent Non-Medical Issues Psychosocial: single, significant other, not legally . As one daughter. Spiritual: [employer]. Legal: Patient is currently incapacitated to participate in healthcare decision- making. Single, does have a significant other not legally . Has one daughter. According to 4 to statutes, health care proxy decision-making falls to daughter Loree. Ethical issues impacting care: no known concerns at this time. . Important Contacts * Loree Marinelli, daughter (HCP): [phone] * Rony Marinelli, significant other: [phone] . Prognosis In speaking with Dr. Hoffman, he feels patient has pneumonia complicated by worsening COPD, while she will likely have a long road to recovery it is possible she will survive given her young age. She also remains high risk for further setbacks her decline given prolonged ICU stay and prolonged mechanical ventilation. . Code Status: Full Code Plan * Patient is currently incapacitated to participate in healthcare decision- making. Single, does have a significant other, not legally . Has one daughter. According to [place] statutes, health care proxy decision-making falls to jarett Ralph. * FULL CODE. * Discussed with nursing staff and Dr. Villa. * 09/28/16 - Left message for Loree denson to offer family meeting to further clarify halfway goals. * SYMPTOMS: dyspnea: remains on mechanical ventilation, sedated with Fentanyl and Diprivan. Pain : secondary to infection, mech vent, recent PEG tube placement and bedbound status. No new medication recommendations at this time. * Palliative care will continue to follow to assist with symptom management and further clarification of treatment goals as needed. . Attestation To help prompt me to consider important information that might be impacting today's encounter and assessment, information from prior notes written by myself or my colleagues may have been "brought forward" into today's note. My signature on this note, however, is an attestation that I personally performed the exam, history, and/or decision-making noted today, and, unless otherwise indicated, the interactions with patient, family, and staff as well as the review of records all occurred today. I also attest that the listed assessment and stated plan reflect my best clinical judgment today based on the combination of historical information, prior notes, and today's exam/ interactions. When time spent is documented, it refers only to time spent today by the signer, or if indicated, combined time spent today by collaborating physician/nurse practitioner. RUMA COOPER September 28, 2016 12:56
[2016-09-28] MEDS: PRAVASTATIN SOD 20 MG TAB PO SCH (21:15)
[2016-09-29] VITALS (20 sets, daily range): BP systolic 112–123; BP diastolic 57–69; PULSE 79–94; RESP 18–28; TEMP 99–99.7; O2SAT 93–100
[2016-09-29] MEDS: PANTOPRAZOLE SODIUM 40 MG VIAL IV PUSH SCH ×3 (00:28→22:14)
[2016-09-29] MEDS: CHLORHEXIDINE GLUCONATE 2 % 1 PACK (2 CLOTHS) TOP SCH (00:29)
[2016-09-29] MEDS: PROPOFOL 1000 MG/100 ML INJ 100 ML IV SCH ×6 (00:30→22:14)
[2016-09-29] MEDS: oxyCODONE HCL ORAL CONC 20 MG/ML SYRINGE G-TUBE SCH ×6 (04:00→20:57)
[2016-09-29] MEDS: RESP: ALBUTEROL 2.5 MG/IPRATROPIUM 0.5 MG NEB (SCH) INH ×4 (04:23→19:44)
[2016-09-29] MEDS: METOCLOPRAMIDE HCL 10 MG/2 ML VIAL IV PUSH SCH ×3 (04:56→22:15)
[2016-09-29] MEDS: LEVOTHYROXINE SODIUM 200 MCG TAB PO SCH (04:56)
[2016-09-29] MEDS: METOPROLOL TARTRATE 25 MG TAB G-TUBE SCH ×3 (04:56→22:14)
[2016-09-29] MEDS: QUEtiapine FUMARATE 25 MG TAB PO SCH ×3 (04:56→22:15)
[2016-09-29] MEDS: HEPARIN-D5W 25,000 U/250 ML 250 ML IV SCH (05:10)
[2016-09-29] MEDS: ARTIFICIAL TEARS OPTH SOLN 15 ML BTL EACH EYE SCH ×3 (08:15→16:44)
[2016-09-29] MEDS: BUMETANIDE INJ 1 MG/4 ML VIAL IV PUSH SCH ×2 (08:18→16:44)
[2016-09-29] MEDS: FAMOTIDINE 20 MG TAB NG SCH (08:18)
[2016-09-29] MEDS: CALCIUM ACETATE 667 MG CAP PO SCH ×3 (08:19→16:45)
[2016-09-29] MEDS: POLYETHYLENE GLYCOL 17 GM PKG PO SCH (08:19)
[2016-09-29] MEDS: DOCUSATE SODIUM 100 MG/10 ML UDC PO SCH ×2 (08:19→20:57)
[2016-09-29] MEDS: SENNOSIDES SYRUP 8.8 MG/5 ML CUP PO SCH ×2 (08:20→20:58)
[2016-09-29] MEDS: EUCERIN CREAM 120 GM JAR TOPICAL SCH ×2 (08:20→20:58)
[2016-09-29] MEDS: SODIUM CHLORIDE 0.9% FLUSH 10 ML FLUSH IVF SCH (08:20)
[2016-09-29] MEDS: BENEPROTEIN POWDER 1 PACK G-TUBE SCH ×4 (08:21→16:44)
[2016-09-29] MEDS: SODIUM CHLORIDE 0.9% FLUSH 10 ML FLUSH IV FLUSH SCH ×2 (08:21→20:57)
[2016-09-29] MEDS ORDERED: ceFAZolin 2 GM PREMIX 50 ML IV SCH (08:45)
[2016-09-29] MEDS ORDERED: VANCOMYCIN INJ 1,000 MG in SODIUM CHLOR 0.9% 250 ML INJ 250 ML IV SCH (08:45)
[2016-09-29 09:42] LABS: APTT (PATIENT) 43.6 SEC (24.3-30.1); INTERNATIONAL NORMALIZED RATIO 0.9 RATIO; PROTHROMBIN TIME - PATIENT 10.2 SEC (9.8-11.6)
[2016-09-29 09:49] LABS: HEMATOCRIT 24.6 % (35.0-46.0); MEAN CELL VOLUME 84.9 FL (80.0-100.0); MEAN CORPUSCULAR HEMOGLOBIN 27.7 PG (27.0-34.0); MEAN CORPUSCULAR HGB CONC 32.6 % (32.0-36.0); PLATELET COUNT 288 TH/MM3 (150-450); RED CELL DISTRIBUTION WIDTH 18.1 % (11.6-17.2); REVIEW FLAG FINAL; WHITE BLOOD COUNT 9.7 TH/MM3 (4.0-11.0)
--- NOTE | 2016-09-29 10:02 | HHI.NPPN ---
Subjective General Problems: Edema, Hypotension, Obesity Renal Failure: Acute Interval History Dialyzed yesterday. Remains oliguric. NPO for Permcath placement today. ( Genny Lowery) Review of Systems General General Remarks unable to evaluate (Genny Lowery) Objective Data Data 09/28/16 09/29/16 19:00 07:00 Intake Total 928 ml 1008 ml Output Total 4100 ml 185 ml Balance -3172 ml 823 ml IV Total 399 ml 514 ml Tube Feeding 429 ml 374 ml Other 100 ml 120 ml Output Urine Total 100 ml 185 ml Hemodialysis 4000 ml # Bowel Movements 0 Vital Signs Date Time Temp Pulse Resp B/P Pulse Ox O2 Delivery O2 Flow Rate FiO2 09/29/16 09:31 96 40 09/29/16 09:17 17 09/29/16 08:00 40 09/29/16 06:00 89 09/29/16 04:24 99 40 09/29/16 04:00 40 09/29/16 04:00 86 09/29/16 04:00 99.7 86 18 117/58 94 09/29/16 02:00 94 09/29/16 01:33 93 40 09/29/16 00:00 86 09/29/16 00:00 40 09/29/16 00:00 99.5 86 18 112/57 95 09/28/16 22:32 94 40 09/28/16 22:00 91 09/28/16 20:25 97 40 09/28/16 20:00 99.5 85 18 114/56 94 09/28/16 20:00 85 09/28/16 20:00 40 09/28/16 17:30 91 123/58 93 09/28/16 17:15 86 131/61 93 09/28/16 17:00 82 127/60 93 09/28/16 16:45 82 129/60 94 09/28/16 16:30 84 125/61 93 09/28/16 16:15 84 119/59 94 09/28/16 16:00 40 09/28/16 16:00 98.8 86 129/59 94 09/28/16 15:57 94 40 09/28/16 15:45 98.0 86 133/61 94 09/28/16 15:30 85 134/61 94 09/28/16 15:15 87 134/63 94 09/28/16 15:00 77 123/59 94 09/28/16 14:45 77 115/57 94 09/28/16 14:30 79 122/58 94 09/28/16 14:15 79 127/60 94 09/28/16 14:00 80 125/58 94 09/28/16 13:45 79 126/58 95 09/28/16 13:30 79 124/57 95 09/28/16 13:15 80 126/59 95 09/28/16 13:00 82 124/58 96 09/28/16 12:45 82 121/58 95 09/28/16 12:30 83 123/60 95 09/28/16 12:15 93 40 09/28/16 12:15 93 125/69 97 09/28/16 12:00 83 119/62 95 09/28/16 12:00 40 (Genny Lowery) -: 09/29/16 0751 09/28/16 0340 Imaging Last Impressions Chest X-Ray 09/25/16 0600 Signed Impressions: Service Date/Time: Sunday, September 25, 2016 04:36 - CONCLUSION: 1. Cardiomegaly and findings of vascular congestion without overt failure. Small right effusion 2. There has been no significant change when compared to the prior exam. Didier Zhang MD Catheter Placement X-Ray 09/20/16 0000 Signed Impressions: Service Date/Time: Tuesday, September 20, 2016 11:11 - CONCLUSION: Uncomplicated line placement as above. Beto Barbosa MD Renal Ultrasound 09/17/16 0000 Signed Impressions: Service Date/Time: Saturday, September 17, 2016 13:31 - CONCLUSION: Negative renal sonogram. Taco Davidson MD Upper Extremity Ultrasound 09/14/16 0000 Signed Impressions: Service Date/Time: August 08:32 - CONCLUSION: There is thrombus within the left subclavian and internal jugular veins. Danyel Escalante MD Lower Extremity Ultrasound 09/13/16 0000 Signed Impressions: Service Date/Time: Tuesday, September 13, 2016 22:33 - CONCLUSION: Normal examination. Leonides Mason MD Liver Ultrasound 09/08/16 0000 Signed Impressions: Service Date/Time: Thursday, September 08, 2016 08:45 - CONCLUSION: 1. Cholelithiasis with distended gallbladder. However, there are no associated findings present to diagnose acute cholecystitis. If there is persistent clinical concern for acute cholecystitis could evaluate for cystic duct obstruction with hepatobiliary scintigraphy. 2. Hepatomegaly with very heterogeneous echotexture and steatosis. Dejan Allison MD Gall Bladder Ultrasound 08/29/16 0000 Signed Impressions: Service Date/Time: Monday, August 29, 2016 15:21 - CONCLUSION: 1. Hepatomegaly with heterogeneous echotexture throughout the liver. 2. There is a large echogenic area near the neck of the gallbladder suggestive of a stone, but despite its large size, demonstrates no acoustic shadowing in any of the views. Taco Davidson MD CT Angiography 08/15/16 0000 Signed Impressions: Service Date/Time: Monday, August 15, 2016 02:33 - CONCLUSION: 1. No evidence for pulmonary embolism. 2. Multifocal consolidation greatest in the right lower lobe and associated adenopathy. Terry Estrada MD Tubes & Lines: Miller Tubes & Lines Comment trach, PEG Drip Comment heparin, propofol (Genny LoweryP) Physical Exam General Appearance: Well Developed, No Acute Distress, Comfortable, Obese Appearance Remarks eyes open with blank stare, no eye movements (Genny Lowery DATA SYSTEMS ANALYST) Throat Throat Exam: Oral Mucosa [place] & Moist (Genny Lowery BRamos DATA SYSTEMS ANALYST) Neck Neck Exam: Neck Supple Neck Remarks trach (Genny Lowery DATA SYSTEMS ANALYST) Pulmonary Resp Remarks vented lung sounds clear in upper palafox (Genny Lowery BRamos DATA SYSTEMS ANALYST) Cardiology CV Exam: Regular, Normal Sinus Rhythm (Genny Lowery DATA SYSTEMS ANALYST) Gastrointestinal/Abdomen GI Exam: Soft, Bowel Sounds Present GI Remarks morbidly obese, + PEG infusing (Genny Lowery DATA SYSTEMS ANALYST) Musculoskeletal MS Exam: Joints Intact, Good Strength, Unable to Ambulate (Genny Lowery DATA SYSTEMS ANALYST) Integumentary Skin Exam: Warm, Dry Skin Remarks dry flaking skin (Genny Lowery) Extremeties Extremities Exam: Pedal Pulses Palpable, Moderate Edema, Pitting Edema ( Genny Lowery) Neurologic Neuro Exam: Unresponsive, Sedated (Genny Lowery) VTE Prophylaxis Device: SCDs (Genny Lowery) Assessment/Plan Assessment Summary: MIKE/Acute Renal Failure, Acute Tubular Necrosis, Fluid/ Volume Overload, Hypotension Electrolyte Assessment: Hyponatremia Problem List: (1) Acute kidney injury Plan: In a pt with normal renal function at baseline MIKE: ATN from sepsis syndrome and diminished renal perfusion ; also aminoglycoside induced nephrotoxicity likely also contributing; possibly AIN HD initiated 09/20; currently on TTS schedule 4L UF yesterday awaiting permcath placement today obtain daily renal panel continue PhosLo for hyperphosphatemia on Nepro tube feeding , avoid free water flushes due to hyponatremia Avoid nephrotoxic agents. Avoid IVF await signs of renal recovery Continue supportive care. (2) ARDS (adult respiratory distress syndrome) Plan: s/p trach placement continue Ventilator support: A/C 14/650/40/10 Actuarial Science Professor managing. Sanaz when able (3) Anemia Plan: Hb low but improved, had recent stool for occult bleeding test negative x 2 on heparin also on protonix GI following, transfuse PRN; given 1 unit 09/28 (4) Pneumonia Plan: Pseudomonas in the sputum. ID following. monitor the pt clinically, she is currently off antibiotics afebrile today (5) Hypothyroidism Plan: on synthroid (6) Morbid obesity (7) DVT (deep venous thrombosis) Plan: in IJ after central line was placed on heparin bridge to coumadin will need anticoagulants held pre procedure (Genny Lowery) Plan patient was seen and examined. PermCath placement today. Dialysis tomorrow. Continue to monitor for signs of renal recovery. (Anshu Tan MD) Problem Qualifiers (1) Pneumonia: Qualified Code: J18.9 - Pneumonia of both lungs due to infectious organism, unspecified part of lung Genny Lowery September 29, 2016 10:02 Anshu Tan MD September 29, 2016 13:57
[2016-09-29 10:21] LABS: POTASSIUM 3.7 MEQ/L (3.5-5.1)
[2016-09-29] MEDS ORDERED: LIDOCAINE 1%/EPINEPHrine 1:100,000 SOLN 20 ML VIAL ONE (11:44)
--- NOTE | 2016-09-29 12:36 | PD.RAD ---
Post Procedure Progress Note Pre Procedure Diagnosis: (1) Acute kidney injury Post Procedure Diagnosis: (1) Acute kidney injury Procedure Date: September 29, 2016 Supervising Radiologist: Taco Haas JR Proceduralist/Assist: Reba Salmeron, RT(R), Amanda Boogie RT(R) Anesthesia: Conscious Sedation Plan of Activity Patient to Unit: Critical Care Patient Condition: Fair See PACS Report for procedural detail/treatment Central Venous Access Device Procedure 1 Right Subclavian Hemodialysis Catheter Tunneled Conversion dual lumen [place]: 15 Findings: Patient has a trach. Current Vascath exchanged for a permcath. Functions well. OK to use Jr. Haas Thomas Justin MD September 29, 2016 12:36
[2016-09-29] MEDS ORDERED: HEPARIN SODIUM - IV 2,000 UNITS/2 ML VIAL IV FLUSH PRN (12:45)
--- NOTE | 2016-09-29 12:53 | HHI.CCPN ---
Subjective Remarks/Hospital Course 56-year-old morbidly obese female brought in the emergency department in respiratory distress. She was intubated by ER attending. She has been sick for about a week with symptoms consistent with UTI. She's had fevers and chills. She's been short of breath. She's had fatigue. She has had a cough and chest pain with coughing. The family reports that she's been delirious for the last 3 days. 08/15 Patient is sedated with Diprivan, Versed, Fentanyl and intubated. CTA chest showed no PE multifocal consolidation greatest in RLL. Tmax 100.6 08/16 Patient is sedated with Diprivan and Fentanyl. Afebrile. CXR this morning showed increase consolidation. 08/17 Patient remains sedated and intubated. T:100.4 On PRVC/AC RR 18, Tv 500, IT :1.0 PEEP:10, FIO2 75% 08/18 Remains sedated and intubated. Afebrile. CXR this morning unchanged bibasilar infiltrates and effusions. 08/19 Patient was placed on rotoprone bed last night for proning sedated with Diprivan, Versed and Fentnayl in addition she is on Nimbex. On PRVC/AC RR 20, TV 400, IT:1.1, PEEP:14 and FIO2 80%. Afebrile. 08/20 Patient remains sedated and intubated. Remains on PRVC/AC mode with improvements in her oxygenation on FIO2 50% from 80% yesterday and PEEP:12. 08/21 Patient remains sedated and intubated. On PRVC/AC mode with RR 20, TV 400, IT:1.1, PEEP: 12 and FIO2 50%. Afebrile. 08/22 No acute events overnight. Remains sedated, intubated and on Nimbex.. T: 99.8. On PRVC mode with PEP: 12, FIO2 50%. CXR from yesterday showed better aeration, RLL infiltrate unchanged. 08/23 Chest x-ray worsening. Methylprednisolone taper to twice a day by pulmonary. The patient's FiO2 was found to be 100% this a.m., will continue to wean. 08/24: 1 desat episode yesterday when supine. still remains prone now. no vasopressors. sedated and paralyzed. 08/25: flolan added yesterday. fio2 down to 60%. remained supine all night. still on neuromuscular blockade. net -500cc/24h. 08/26: good diuresis. remained supine. fio2 70%. weaning flolan. remains with significant respiratory support and high peep despite 6L diuresis overnight. Cr still stable. 08/27: continues with good diuresis. net negative 3L/24h. fio2 down to 55%. flolan off. still high peep. not ready for SBT. more agitated today. Cr remains stable despite aggressive diuresis. 08/28: diuresis continues. -3.3L/24h. spiked fever overnight with a jump in wbc to 16 this AM. fio2 60%, but her pulmonary improvements have plateaued at this point. still on peep 12. 08/29: net -1.7L/24h. Cr starting to rise. still spiking fevers despite vanc/ cefepime added yesterday. wbc continues to rise. clinically appears infected, although unclear source. peep 10, fio2 60%. will likely need trach. 08/30: net +800cc, but Cr downtrending. appears clinically euvolemic. fever curve downtrending. wbc downtrending. on 40% fio2, peep 8 today. still following commands. 08/31: failed SBT after only 45 minutes yesterday. intubated for > 2 weeks at this point. will attempt to pursue trach/peg today. will continue with pulmonary strengthening. daily SBTs. 09/01 CXR showing increasing bibasilar infiltrate. Failed C Pap trial in 5 minutes due to severe tachypnea. PEG tube today. Family has not decided on trach yet 09/02: Patient febrile to 101.1, CXR increased infiltrate Tmax Tmax 101.1. Currently 9.7 left upper lung and right lower lobe. Pancultured. Cefepime added today and one dose of vancomycin. Continues to fail C Pap trial due to tachypnea and respiratory distress 09/03: Remains hypoxemic on 75% oxygen with new pneumonia. Sputum culture 09/02/16 with GNR. Family agreeable for tracheostomy but patient is not stable at this point for trach 09/04: still on 70% fio2. still hypoxic. pneumonia persists. needs trach, but too unstable at this point. 09/05: remains on 75% fio2. pseudomonas sensitivities came back resistant to carbapenems, intermediate to levaquin. still spiking fevers. not clinically improving. wbc remains elevated. 09/06: Remains on 12 of PEEP and FiO2 75%. Zosyn and tobramycin started yesterday. WBC count trending down today 11.5 from 13.1. Remains heavily sedated for ventilator synchrony. MAXIMUM TEMPERATURE 100.3 09/07: Continues to spike fever. CXR unchanged. WBC count improving. PEEP 14. FiO2 60%. Will start IV Bumex 1mg IV q12 09/09: Tolerating tube feeds at goal. Afebrile. No documented bowel movement. Currently sedated on the ventilator 09/10: Tmax 99.7. Currently 99.4. No bowel movement yesterday. None document since 09/04. Arousable on the ventilator 09/11: Tmax 102.6. Currently 100. Positive BM. Arousable on the ventilator. Tolerating tube feeds. Central line changed yesterday. Plan for bronchoscopy at 1 PM. 09/12: Tmax 100.1. Currently afebrile. Follows commands today. Wiggles toes and give thumbs up appropriately. MRI brain canceled. Tolerating tube feeding with positive BM. Tracheostomy currently planned for . 09/13: Tmax 102. Again on sedation vacation falls commands by wiggling toes bilaterally and giving thumbs up bilaterally appropriate. Tolerating tube feeding with positive BM. Tracheostomy planned for tomorrow with Dr. Ortega. 09/14: Low grade fever. CXR showing more prominent infiltrate on the right lower lobe and left upper lobe. WBC trending up still in normal range. Patient is on 40% FiO2 but continues to fail CPAP due to tachypnea 09/15: Remains intubated sedated, unable to wean off the vent. Plan for tracheostomy today with Dr. Ortega. Continues to have low grade fever. CXR with persistent bibasilar infiltrates 09/16: Tmax 101.1. Currently 100.7. Awake and alert. Following commands. 09/17: Afebrile. Currently on PSV trial. Tolerating tube feeds. One bowel movement. Noted decreased urine output past 48 hours. Diuretics have been discontinued. This a.m. creatinine currently pending. 09/18: Afebrile. Adequate urine output yesterday but decreased 150 past 8 hours. Tolerating tube feeds. One bowel movement. Not tolerating PSV trials today. 09/19: Tmax 100.5. Urine output picking up. Tolerating tube feeds. No bowel movement 48 hours. Not tolerating PSV trials. 09/20: Diffuse drug morbilliform exanthem noted this a.m. Tmax 100.6. Urine output around 20 cc an hour. Not tolerating PSV trials. Possibly new right pleural effusion noted on chest x-ray. Will need hemodialysis 09/21: Tmax 100.6 currently 98.7. -4 L with hemodialysis yesterday and today. FiO2 to 60%. Tolerating tube feeds. Positive BM. Still requiring sedation 09/22: Afebrile. Tolerating tube feeds. Positive BM. 30 g per kilogram per minute of propofol. Tolerated PSV trials 3 hours today 09/23 HD today with 3.5 L removal. Tolerating CPAP for 8 hours, currently 45% with RSBI 45%. 09/24 Called by RN this morning for concern for bloody BMs. Placed heparin and warfarin on hold. Serial Hgb ordered. Hgb 9.3 -->8.6 and hemodynamically unchanged. Started on protonix drip. Heme stool is negative and now RN states she is concerned about the adequacy of specimen, so sending repeat. Had asked GI to see, however further workup will not be indicated if hemoccult is negative. Tolerating PSV 05/06 09/25: heparin restarted. hemocult negative x 2. 09/26: no changes. still failing cpap trials. 09/27: Tmax 101.5. Currently 99.5. Resting on Diprivan drip at 25 mcg/kg/m. Currently tolerating tube feeding.. One bowel movement. Subjective 09/28: Hemoglobin trending downward. Transfusing 1 unit PRBCs with hemodialysis today. Currently afebrile. Appears comfortable ventilator 2 bowel movements 09/29 No events overnight. Sedated with Diprivan and on ventilator via trach. T: 99.9 For Perma Cath placement today. s/p HD yesterday with removal 4L and transfusion 1unit PRBC with HD. Objective Vital Signs Date Time Temp Pulse Resp B/P Pulse Ox O2 Delivery O2 Flow Rate FiO2 09/29/16 09:31 96 40 09/29/16 09:17 17 09/29/16 06:00 89 09/29/16 04:00 99.7 117/58 Intake and Output 09/28/16 09/28/16 09/29/16 08:00 16:00 00:00 Intake Total 411 ml 928 ml 668 ml Output Total 85 ml 4100 ml 110 ml Balance 326 ml -3172 ml 558 ml Result Diagram: 09/29/16 0751 09/29/16 0751 Other Results Laboratory Tests Test 09/29/16 07:51 White Blood Count 9.7 TH/MM3 Red Blood Count 2.90 MIL/MM3 Hemoglobin 8.0 GM/DL Hematocrit 24.6 % Mean Corpuscular Volume 84.9 FL Mean Corpuscular Hemoglobin 27.7 PG Mean Corpuscular Hemoglobin 32.6 % Concent Red Cell Distribution Width 18.1 % Platelet Count 288 TH/MM3 Mean Platelet Volume 7.8 FL Prothrombin Time 10.2 SEC Prothromb Time International 0.9 RATIO Ratio Activated Partial 43.6 SEC Thromboplast Time Sodium Level 132 MEQ/L Potassium Level 3.7 MEQ/L Chloride Level 91 MEQ/L Carbon Dioxide Level 27.0 MEQ/L Anion Gap 14 MEQ/L Blood Urea Nitrogen 52 MG/DL Creatinine 3.13 MG/DL Estimat Glomerular Filtration 15 ML/MIN Rate Random Glucose 81 MG/DL Calcium Level 8.6 MG/DL Phosphorus Level 5.0 MG/DL Imaging Last Impressions Chest X-Ray 09/25/16 0600 Signed Impressions: Service Date/Time: Sunday, September 25, 2016 04:36 - CONCLUSION: 1. Cardiomegaly and findings of vascular congestion without overt failure. Small right effusion 2. There has been no significant change when compared to the prior exam. Didier Zhang MD Catheter Placement X-Ray 09/20/16 0000 Signed Impressions: Service Date/Time: Tuesday, September 20, 2016 11:11 - CONCLUSION: Uncomplicated line placement as above. Beto Barbosa MD Renal Ultrasound 09/17/16 0000 Signed Impressions: Service Date/Time: Saturday, September 17, 2016 13:31 - CONCLUSION: Negative renal sonogram. Taco Davidson MD Upper Extremity Ultrasound 09/14/16 0000 Signed Impressions: Service Date/Time: August 08:32 - CONCLUSION: There is thrombus within the left subclavian and internal jugular veins. KRamos Escalante MD Lower Extremity Ultrasound 09/13/16 0000 Signed Impressions: Service Date/Time: Tuesday, September 13, 2016 22:33 - CONCLUSION: Normal examination. Leonides Mason MD Liver Ultrasound 09/08/16 0000 Signed Impressions: Service Date/Time: Thursday, September 08, 2016 08:45 - CONCLUSION: 1. Cholelithiasis with distended gallbladder. However, there are no associated findings present to diagnose acute cholecystitis. If there is persistent clinical concern for acute cholecystitis could evaluate for cystic duct obstruction with hepatobiliary scintigraphy. 2. Hepatomegaly with very heterogeneous echotexture and steatosis. Dejan Allison MD Gall Bladder Ultrasound 08/29/16 0000 Signed Impressions: Service Date/Time: Monday, August 29, 2016 15:21 - CONCLUSION: 1. Hepatomegaly with heterogeneous echotexture throughout the liver. 2. There is a large echogenic area near the neck of the gallbladder suggestive of a stone, but despite its large size, demonstrates no acoustic shadowing in any of the views. Taco Davidson MD CT Angiography 08/15/16 0000 Signed Impressions: Service Date/Time: Monday, August 15, 2016 02:33 - CONCLUSION: 1. No evidence for pulmonary embolism. 2. Multifocal consolidation greatest in the right lower lobe and associated adenopathy. Terry Estrada MD Objective Remarks GENERAL: 56 yo female currently resting in bed mechanically ventilated SKIN: Warm and dry. Skin is flaky. Rash is resolved. Noted stage I to 2 decubitus ulcer\coccyx and back covered with Mepilex HEAD: Normocephalic. EYES: No scleral icterus. No injection or drainage. NECK: Neck is obese. Right subclavian hemodialysis catheters clean dry and intact. Tracheostomy is clean dry and intact CARDIOVASCULAR: RRR. S1, S2 no S4 . No murmur RESPIRATORY: Diminished breath sounds throughout due to body habitus GASTROINTESTINAL: Abdomen obese, soft, non-tender, hypoactive active bowel sounds. G-tube is clean dry and intact MUSCULOSKELETAL: Crinkling of bilateral lower extremities. 1+ edema BUE. Neuro: Awake, makes eye contact and nods to questions. Currently following commands moving upper and lower extremity spontaneously. A/P Problem List: (1) ARDS (adult respiratory distress syndrome) ICD Code: J80 Status: Acute (2) CHF (congestive heart failure) ICD Code: I50.9 Status: Acute (3) Respiratory failure ICD Code: J96.90 Status: Acute (4) Pneumonia ICD Code: J18.9 Status: Acute Assessment and Plan Neuro/Psych: Acute toxic metabolic encephalopathy Agitated delirium On Diprivan infusion for sedation, daily sedation vacation. Fentanyl allergy Continue Seroquel 75mg po q8h . Oxycodone 5 mg every 4 hours. Additional 5 mg q 4hours as needed EEG 09/09 moderate to severe encephalopathy Pulm: Acute hypercapnic and hypoxemic respiratory failure ARDS Pneumonia community-acquired, now with HCAP with carbapenem-resistant pseudomonas Probable JOE PRVC 14/1.08/05/39, decrease PEEP:5 Ventilator bundle Bronchodilator therapy every 4 hours and as needed Pulm has followed- Dr. Beck Gen surgery Dr. Ortega s/p s tracheostomy 09/15 Pulm toilet, trach care CV: Hypertension Dyslipidemia Elevated troponin - likely strain Metoprolol 12.5 mg by mouth 3 times a day Echo 08/14 showed EF 65-70% mild AR/TR On Pravachol 20 mg a night. Renal/: Acute kidney injury - requiring hemodialysis Dr. Tan -nephrology following. Hemodialysis Sunday//Sunday MIKE: ATN from sepsis syndrome and diminished renal perfusion ; also aminoglycoside induced nephrotoxicity likely also contributing; possibly AIN -> per nephrology note Urine eosinophils negative. Renal ultrasound revealed no hydronephrosis Monitor renal function, I/O's, avoid nephrotoxins On Bumex 2mg IV BID s/p HD yesterday with removal 4L. GI: Elevated transaminases Cholelithiasis US liver: Fatty liver and cholelithiasis. Repeat 09/08 revealed cholelithiasis with no acute signs of cholecystitis. Recommend a HIDA scan if indicated On TF Nepro's 45 cc an hour and beneprotein 2 packs 3 times a day s/p PEG placement 09/01/[address] Stone Mac/Lucero Lopes for bowel regimen. Pepcid 20 mg liquid daily GI prophylaxis ID: Pseudomonas pneumonia Funguria, Maribell glabrata and parapsilosis. Pertinent cultures blood and sputum cx 08/15- NG strep pneumonia and Legionella urinary Ag negative Blood cultures 08/28: NGTD C Diff negative 08/28. Lines changed 08/28. Sputum 08/30 - Pseudomonas Sputum 09/02 PSAE, resistant to carbapenem, intermediate to Levaquin. 09/07 - urine -Maribell Guilliermondii 09/07 - blood cultures 2 - no growth 09/09 - urine -strep viridans, Maribell parapsilosis 09/10 - blood cultures 2 -no growth 09/11 - broch washings -no growth to date 09/12 - urine -Maribell glabrata and parapsilosis 09/16 - blood cultures 2 - pending 09/16 - sputum -no growth 09/16 - urine -Maribell glabrata and parapsilosis Zosyn previously discontinued secondary to rash Has been off abx since 09/18 when ID discontinued Cefepime, tobramycin aerosols , Diflucan, and Vfend. - ID following at a distance currently. 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 Resume Heparin once Perma Cath placed today Endo: Diabetes mellitus Hypothyroidism on SSI (medium scale) for glycemic control On Synthroid 200mcg daily. TSH 1.37 GI prophylaxis-Protonix 40mg Q12 DVT - Heparin gtt - Continue , SCDs Lines: Peripheral IV. - PEG 09/01/16 - Trach 09/15 - Right subclavian US catheter placed 09/20 by IR. Will d/c once Perma cath is placed today. Critical Care: Critical Care: The total critical care time was 30 minutes. Time to perform other separately billable procedures was not included in the critical care time. Loree Marinelli, daughter (HCP): [phone] Rony Marinelli, significant other: [phone] Problem Qualifiers (1) CHF (congestive heart failure): Qualified Code: I50.9 - Acute congestive heart failure, unspecified congestive heart failure type (2) Respiratory failure: Qualified Code: J96.02 - Acute respiratory failure with hypercapnia (3) Pneumonia: Qualified Code: J18.9 - Pneumonia of both lungs due to infectious organism, unspecified part of lung Ute Santamaria MD September 29, 2016 12:53
--- NOTE | 2016-09-29 15:19 | RADRPT ---
EXAM DATE/TIME: 09/29/2016 12:31 [facility] COMPARISON: No previous studies available for comparison. INDICATIONS : Patient with a history of renal insuffiency. MEDICAL HISTORY : Hypothyroidism Dyslipidemia Obstructive sleep apnea Obesity hypoventilation syndrome Tobacco use disorder SURGICAL HISTORY : Tubal ligation Hysterectomy ENCOUNTER: Subsequent ACUITY: 1 month PAIN SCORE: Nonresponsive. FLUORO TIME: 1.2 minutes IMAGE SERIES: 1 DEVICE(S): 1.) 15FR 27cm Permcath PROCEDURE : The risks, benefits, and alternatives of the procedure were explained. The patient fully understood a nd wished to proceed. A signed consent was obtained and placed on the chart. A full sterile field was used. A cap, mask, gown, gloves, and sterile sheet were utilized. 1% lidocai ne was utilized for local anesthetic. Fluoroscopic evaluation of the current tube shows the tip withi n the superior vena cava. The heparin was aspirated from each lumen of the catheter. The catheter was removed over wire. A Leong perm catheter was passed over the wire and back tunneled over the right collar bone. It was appropriately assembled. The tips are at the mid right atrial level. The catheter functions well. Each lumen was flushed with the appropriate 1000 unit per cc heparin solution. 2-0 s ilk suture was used to anchor the catheter. The patient tolerated the procedure well. CONCLUSION: Vas-Cath to PermCath exchange as detailed above. Taco Haas Jr., MD on September 29, 2016 at 15:14 Board Certified Radiologist. This report was verified electronically.
--- NOTE | 2016-09-29 17:02 | HHI.PR ---
Subjective Remarks Sedated and on vent support , FIO2 at 40 %. Was dialyzed. Has a Vascath. Objective Vital Signs Date Time Temp Pulse Resp B/P Pulse Ox O2 Delivery O2 Flow Rate FiO2 09/29/16 13:52 93 40 09/29/16 12:00 40 09/29/16 12:00 99.1 88 22 120/69 98 09/29/16 11:05 98 100 09/29/16 09:31 96 40 09/29/16 09:17 17 09/29/16 08:00 40 09/29/16 08:00 99.2 85 18 123/62 94 09/29/16 06:00 89 09/29/16 04:24 99 40 09/29/16 04:00 40 09/29/16 04:00 86 09/29/16 04:00 99.7 86 18 117/58 94 09/29/16 02:00 94 09/29/16 01:33 93 40 09/29/16 00:00 86 09/29/16 00:00 40 09/29/16 00:00 99.5 86 18 112/57 95 09/28/16 22:32 94 40 09/28/16 22:00 91 09/28/16 20:25 97 40 09/28/16 20:00 99.5 85 18 114/56 94 09/28/16 20:00 85 09/28/16 20:00 40 09/28/16 17:30 91 123/58 93 09/28/16 17:15 86 131/61 93 09/28/16 17:00 82 127/60 93 I/O 09/28/16 09/28/16 09/28/16 09/29/16 09/29/16 09/29/16 07:00 15:00 23:00 07:00 15:00 23:00 Intake Total 411 ml 928 ml 546 ml 462 ml 406 ml Output Total 85 ml 4100 ml 110 ml 75 ml 60 ml Balance 326 ml -3172 ml 436 ml 387 ml 346 ml Intake Oral 0 ml IV Total 208 ml 399 ml 234 ml 280 ml 280 ml Tube Feeding 203 ml 429 ml 252 ml 122 ml 66 ml Other 100 ml 60 ml 60 ml 60 ml Output Urine Total 85 ml 100 ml 110 ml 75 ml 60 ml Hemodialysis 4000 ml # Bowel Movements 1 0 0 0 Result Diagram: 09/29/16 075 09/29/16 0751 Objective Remarks This is an obese middle-aged white female who is lethargic. HEENT: Head normocephalic. Pupils react. Neck: No bruits, no thyroid enlargement, no lymphadenopathy. Chest: Decreased breath sounds. Few basal crackles. Heart: Heart sounds were regular. S1-S2 no murmur, no S3. Abdomen: Soft, benign. No masses, or tenderness. Bowel sounds are active. Extremities: 1 + edema . Neuro :Moves feet. Awake . Assessment and Plan Assessment and Plan IMPRESSION 1. Acute hypercapnic respiratory failure. 2. Pulmonary edema. 3. Drug rash 4. Obstructive sleep apnea syndrome 5. Hypertension 6. Hypothyroidism. 7. MIKE Plan : 1. Cont weaning vent with PSV /CPAP , FIO2 40 % 2. Trach toilet and suctioning. 3. Nebs qid , duoneb. 4. A/C rate 12, PEEP +10 after CPAP. 5. Chest X ray in am 6. PT evaluation 7. Tube feeds at 50 CC 8. Up in chair as tolerated Abimael Beck MD September 29, 2016 17:02
[2016-09-29 17:50] LABS: APTT (PATIENT) 29.3 SEC (24.3-30.1)
[2016-09-29] MEDS: PRAVASTATIN SOD 20 MG TAB PO SCH (20:58)
[2016-09-30] VITALS (20 sets, daily range): BP systolic 113–133; BP diastolic 59–77; PULSE 80–105; RESP 14–21; TEMP 98.9–101.2; O2SAT 90–98
[2016-09-30] MEDS: oxyCODONE HCL ORAL CONC 20 MG/ML SYRINGE G-TUBE SCH ×6 (00:45→20:03)
[2016-09-30] MEDS: RESP: ALBUTEROL 2.5 MG/IPRATROPIUM 0.5 MG NEB (SCH) INH ×4 (02:46→20:28)
[2016-09-30] MEDS: CHLORHEXIDINE GLUCONATE 2 % 1 PACK (2 CLOTHS) TOP SCH (03:29)
[2016-09-30] MEDS: HEPARIN-D5W 25,000 U/250 ML 250 ML IV SCH ×2 (03:54→16:40)
[2016-09-30 04:06] LABS: AUTOMATED NEUTROPHIL # 7.9 TH/MM3 (1.8-7.7); BASOPHIL # 0.1 TH/MM3 (0-0.2); EOSINOPHIL # 1.2 TH/MM3 (0-0.4); LYMPH % 7.8 % (9.0-44.0); LYMPHOCYTE # 0.8 TH/MM3 (1.0-4.8); MEAN CELL VOLUME 83.5 FL (80.0-100.0); MEAN CORPUSCULAR HEMOGLOBIN 28.6 PG (27.0-34.0); MEAN CORPUSCULAR HGB CONC 34.2 % (32.0-36.0); MONO % 5.7 % (0.0-8.0); NEUT % 74.5 % (16.0-70.0); PLATELET COUNT 291 TH/MM3 (150-450); RED CELL DISTRIBUTION WIDTH 18.1 % (11.6-17.2); WHITE BLOOD COUNT 10.6 TH/MM3 (4.0-11.0)
[2016-09-30 04:09] LABS: HEMO FLAGS AUTO DIFF
[2016-09-30 04:16] LABS: INTERNATIONAL NORMALIZED RATIO 0.9 RATIO
[2016-09-30 04:17] LABS: APTT (PATIENT) 35.9 SEC (24.3-30.1)
[2016-09-30 04:32] LABS: BICARBONATE 25.6 MEQ/L (21.0-32.0); POTASSIUM 3.7 MEQ/L (3.5-5.1)
[2016-09-30 04:48] LABS: BANDS 7 % (0-6); EOSINOPHILS 13 % (0-4); MYELOCYTES 1 % (0-0); NEUTROPHIL # MANUAL DIFF 7.7 TH/MM3 (1.8-7.7); POLYS (SEG NEUTROPHILS) 64 % (16-70); PROMYELOCYTES 1 % (0-0); SCAN/DIFF FINAL DIFF MANUAL; WBC DIFF SAMPLE 100
[2016-09-30 04:49] LABS: PLATELET ESTIMATE SMEAR NORMAL (NORMAL); PLATELET MORPHOLOGY NORMAL (NORMAL)
[2016-09-30] MEDS: METOPROLOL TARTRATE 25 MG TAB G-TUBE SCH ×3 (04:52→20:15)
[2016-09-30] MEDS: QUEtiapine FUMARATE 25 MG TAB PO SCH ×3 (04:52→20:14)
[2016-09-30] MEDS: LEVOTHYROXINE SODIUM 200 MCG TAB PO SCH (04:53)
[2016-09-30] MEDS: PROPOFOL 1000 MG/100 ML INJ 100 ML IV SCH ×4 (04:53→20:02)
[2016-09-30] MEDS: METOCLOPRAMIDE HCL 10 MG/2 ML VIAL IV PUSH SCH ×3 (04:57→20:14)
[2016-09-30] MEDS: SODIUM CHLORIDE 0.9% FLUSH 10 ML FLUSH IV FLUSH SCH ×2 (08:12→20:03)
[2016-09-30] MEDS: BENEPROTEIN POWDER 1 PACK G-TUBE SCH ×3 (08:12→17:06)
[2016-09-30] MEDS: ARTIFICIAL TEARS OPTH SOLN 15 ML BTL EACH EYE SCH ×3 (08:12→17:06)
[2016-09-30] MEDS: EUCERIN CREAM 120 GM JAR TOPICAL SCH ×2 (08:12→20:04)
[2016-09-30] MEDS: BUMETANIDE INJ 1 MG/4 ML VIAL IV PUSH SCH ×2 (08:13→17:06)
[2016-09-30] MEDS: SENNOSIDES SYRUP 8.8 MG/5 ML CUP PO SCH ×2 (08:13→20:03)
[2016-09-30] MEDS: DOCUSATE SODIUM 100 MG/10 ML UDC PO SCH ×2 (08:13→20:02)
[2016-09-30] MEDS: POLYETHYLENE GLYCOL 17 GM PKG PO SCH ×2 (08:13→20:03)
[2016-09-30] MEDS: CALCIUM ACETATE 667 MG CAP PO SCH ×3 (08:13→17:06)
[2016-09-30] MEDS: SODIUM CHLORIDE 0.9% FLUSH 10 ML FLUSH IVF SCH (08:14)
[2016-09-30 10:04] LABS: APTT (PATIENT) 39.7 SEC (24.3-30.1)
--- NOTE | 2016-09-30 10:43 | HHI.PR ---
Subjective Remarks 5/6 No acute events overnight. Sedated with Diprivan on ventilator via trach. s/ p Perm a cath placement yesterday for HD today. Afebrile and is on heparin drip. Objective Vital Signs Vital Signs Date Time Temp Pulse Resp B/P Pulse Ox O2 Delivery O2 Flow Rate FiO2 09/30/16 09:50 92 40 09/30/16 07:37 93 40 09/30/16 06:00 83 09/30/16 04:33 94 40 09/30/16 04:00 40 09/30/16 04:00 99.5 88 19 131/77 93 09/30/16 04:00 88 09/30/16 02:00 94 09/30/16 00:18 95 40 09/30/16 00:00 98.9 84 21 117/65 97 09/30/16 00:00 40 09/30/16 00:00 80 09/29/16 23:17 100 40 09/29/16 22:00 80 09/29/16 21:32 95 40 09/29/16 20:00 40 09/29/16 20:00 99.0 82 28 117/65 94 09/29/16 20:00 82 09/29/16 18:00 86 09/29/16 17:06 99 40 09/29/16 16:17 19 09/29/16 16:00 99.2 79 19 115/61 95 09/29/16 16:00 79 09/29/16 16:00 40 09/29/16 14:00 79 09/29/16 13:52 93 40 09/29/16 12:00 88 09/29/16 12:00 40 09/29/16 12:00 99.1 88 22 120/69 98 09/29/16 11:05 98 100 I/O 09/29/16 09/29/16 09/29/16 09/30/16 09/30/16 09/30/16 07:00 15:00 23:00 07:00 15:00 23:00 Intake Total 462 ml 406 ml 630 ml 610 ml Output Total 75 ml 60 ml 200 ml 100 ml Balance 387 ml 346 ml 430 ml 510 ml IV Total 280 ml 280 ml 200 ml 260 ml Tube Feeding 122 ml 66 ml 370 ml 310 ml Tube Irrigant 60 ml 40 ml Other 60 ml 60 ml Output Urine Total 75 ml 60 ml 200 ml 100 ml Stool Total 0 ml 0 ml # Bowel Movements 0 0 Result Diagram: 09/30/16 0256 09/30/16 0311 Other Results Laboratory Tests Test 09/29/16 09/30/16 09/30/16 09/30/16 16:59 02:56 03:11 09:47 Activated Partial 29.3 SEC 35.9 SEC 39.7 SEC Thromboplast Time White Blood Count 10.6 TH/MM3 Red Blood Count 3.00 MIL/MM3 Hemoglobin 8.6 GM/DL Hematocrit 25.0 % Mean Corpuscular Volume 83.5 FL Mean Corpuscular Hemoglobin 28.6 PG Mean Corpuscular Hemoglobin 34.2 % Concent Red Cell Distribution Width 18.1 % Platelet Count 291 TH/MM3 Mean Platelet Volume 7.4 FL Neutrophils (%) (Auto) 74.5 % Lymphocytes (%) (Auto) 7.8 % Monocytes (%) (Auto) 5.7 % Eosinophils (%) (Auto) 11.0 % Basophils (%) (Auto) 1.0 % Neutrophils # (Auto) 7.9 TH/MM3 Lymphocytes # (Auto) 0.8 TH/MM3 Monocytes # (Auto) 0.6 TH/MM3 Eosinophils # (Auto) 1.2 TH/MM3 Basophils # (Auto) 0.1 TH/MM3 CBC Comment AUTO DIFF Differential Total Cells 100 Counted Neutrophils % (Manual) 64 % Band Neutrophils % 7 % Lymphocytes % 9 % Monocytes % 5 % Eosinophils % 13 % Neutrophils # (Manual) 7.7 TH/MM3 Myelocytes 1 % Promyelocytes 1 % Differential Comment FINAL DIFF MANUAL Platelet Estimate NORMAL Platelet Morphology Comment NORMAL Prothrombin Time 10.0 SEC Prothromb Time International 0.9 RATIO Ratio Sodium Level 132 MEQ/L Potassium Level 3.7 MEQ/L Chloride Level 89 MEQ/L Carbon Dioxide Level 25.6 MEQ/L Anion Gap 17 MEQ/L Blood Urea Nitrogen 57 MG/DL Creatinine 3.42 MG/DL Estimat Glomerular Filtration 14 ML/MIN Rate Random Glucose 110 MG/DL Calcium Level 9.0 MG/DL Objective Remarks GENERAL: Patient is 56y intubated and sedated SKIN: Warm and dry. HEAD: Normocephalic. EYES: No scleral icterus. No injection or drainage. NECK: Supple, trachea midline. No JVD or lymphadenopathy. Trach in place CARDIOVASCULAR: Regular rate and rhythm without murmurs, gallops, or rubs. RESPIRATORY: Breath sounds equal bilaterally. No accessory muscle use. GASTROINTESTINAL: Abdomen soft, non-tender, nondistended. MUSCULOSKELETAL: No cyanosis, or edema. Neuro: Sedated A/P Assessment and Plan 1)VDRF 2)Pneumonia - sputum cx: Pseudomonas 3)Obstructive sleep apnea syndrome 4)Hypertension 5)Hypothyroidism. 6)Obesity 7)Anemia 8)ESRD 9)Left IJ/subclavian nonocclusive thrombus Plan On Diprivan infusion for sedation, daily sedation vacation and monitor neuro status. Continue with vent support keep sat >92% Bronchodilators, ICU vent bundle, SBT daily as tiki On PRVC/AC RR 12, TV 650, IT: 1.30, PEEP:10, FIO2 40%. Decrease PEEP: 5 discussed with RT. Off abx monitor for signs of infections ( Fever, WBC) For HD today s/p perma cath placement yesterday, on Bumex 2mg IV BID per renal. GI/DVT prophylaxis- on Heparin drip, monitor PTT. Continue treatment plan. Ute Santamaria MD September 30, 2016 10:43
[2016-09-30] MEDS: PANTOPRAZOLE SODIUM 40 MG VIAL IV PUSH SCH ×2 (11:14→21:37)
--- NOTE | 2016-09-30 12:21 | HHI.NPPN ---
Subjective General Problems: Edema, Hypotension, Obesity Renal Failure: Acute Additional Remarks Patient remain intubated and sedated, moving all extremities. Review of Systems General General Remarks unable to evaluate Objective Data Data 09/29/16 09/30/16 19:00 07:00 Intake Total 406 ml 1240 ml Output Total 60 ml 300 ml Balance 346 ml 940 ml IV Total 280 ml 460 ml Tube Feeding 66 ml 680 ml Tube Irrigant 100 ml Other 60 ml Output Urine Total 60 ml 300 ml Stool Total 0 ml # Bowel Movements 0 Vital Signs Date Time Temp Pulse Resp B/P Pulse Ox O2 Delivery O2 Flow Rate FiO2 09/30/16 12:00 40 09/30/16 12:00 92 09/30/16 12:00 100.8 92 18 117/60 91 09/30/16 10:00 92 09/30/16 09:50 92 40 09/30/16 08:00 100.0 95 16 133/66 92 09/30/16 08:00 40 09/30/16 08:00 95 09/30/16 07:37 93 40 09/30/16 06:00 83 09/30/16 04:33 94 40 09/30/16 04:00 40 09/30/16 04:00 99.5 88 19 131/77 93 09/30/16 04:00 88 09/30/16 02:00 94 09/30/16 00:18 95 40 09/30/16 00:00 98.9 84 21 117/65 97 09/30/16 00:00 40 09/30/16 00:00 80 09/29/16 23:17 100 40 09/29/16 22:00 80 09/29/16 21:32 95 40 09/29/16 20:00 40 09/29/16 20:00 99.0 82 28 117/65 94 09/29/16 20:00 82 09/29/16 18:00 86 09/29/16 17:06 99 40 09/29/16 16:17 19 09/29/16 16:00 99.2 79 19 115/61 95 09/29/16 16:00 79 09/29/16 16:00 40 09/29/16 14:00 79 09/29/16 13:52 93 40 -: 09/30/16 0256 09/30/16 0311 Tubes & Lines: Miller Tubes & Lines Comment trach, PEG Drip Comment heparin, propofol Physical Exam General Appearance: No Acute Distress, Comfortable, Obese Appearance Remarks Intubated and sedated. Throat Throat Exam: Oral Mucosa [place] & Moist Neck Neck Exam: Neck Supple Cardiology CV Exam: Regular, Normal Sinus Rhythm Gastrointestinal/Abdomen GI Exam: Soft, Bowel Sounds Present, Distended Musculoskeletal MS Exam: Joints Intact Integumentary Skin Exam: Warm, Dry Extremeties Extremities Exam: Moderate Edema, Pitting Edema, Dependent Edema Neurologic Neuro Exam: Unresponsive, Sedated VTE Prophylaxis Device: SCDs Assessment/Plan Assessment Summary: MIKE/Acute Renal Failure, Acute Tubular Necrosis, Fluid/ Volume Overload, Hypotension Electrolyte Assessment: Hyponatremia Problem List: (1) Acute kidney injury Plan: In a pt with normal renal function at baseline MIKE: ATN from sepsis syndrome and diminished renal perfusion ; also aminoglycoside induced nephrotoxicity likely also contributing; possibly AIN HD initiated 09/20; currently on TTS schedule permcath placement done yesterday. obtain daily renal panel continue PhosLo for hyperphosphatemia on Nepro tube feeding , avoid free water flushes due to hyponatremia Avoid nephrotoxic agents. Avoid IVF await signs of renal recovery Continue supportive care. HD will be again today. (2) ARDS (adult respiratory distress syndrome) Plan: s/p trach placement continue Ventilator support: A/C 14/650/40/10 Public Policy Analyst managing. [place] when able (3) Anemia Plan: Hb low but improved, had recent stool for occult bleeding test negative x 2 on heparin also on protonix GI following, transfuse PRN; given 1 unit 5/4 (4) Pneumonia Plan: Pseudomonas in the sputum. ID following. monitor the pt clinically, she is currently off antibiotics afebrile today (5) Hypothyroidism Plan: on synthroid (6) Morbid obesity (7) DVT (deep venous thrombosis) Plan: in IJ after central line was placed on heparin bridge to coumadin will need anticoagulants held pre procedure Problem Qualifiers (1) Pneumonia: Qualified Code: J18.9 - Pneumonia of both lungs due to infectious organism, unspecified part of lung Stefanie Dennis MD September 30, 2016 12:21
--- NOTE | 2016-09-30 12:54 | HHI.CCPN ---
Subjective Remarks/Hospital Course 56-year-old morbidly obese female brought in the emergency department in respiratory distress. She was intubated by ER attending. She has been sick for about a week with symptoms consistent with UTI. She's had fevers and chills. She's been short of breath. She's had fatigue. She has had a cough and chest pain with coughing. The family reports that she's been delirious for the last 3 days. 08/15 Patient is sedated with Diprivan, Versed, Fentanyl and intubated. CTA chest showed no PE multifocal consolidation greatest in RLL. Tmax 100.6 08/16 Patient is sedated with Diprivan and Fentanyl. Afebrile. CXR this morning showed increase consolidation. 08/17 Patient remains sedated and intubated. T:100.4 On PRVC/AC RR 18, Tv 500, IT :1.0 PEEP:10, FIO2 75% 08/18 Remains sedated and intubated. Afebrile. CXR this morning unchanged bibasilar infiltrates and effusions. 08/19 Patient was placed on rotoprone bed last night for proning sedated with Diprivan, Versed and Fentnayl in addition she is on Nimbex. On PRVC/AC RR 20, TV 400, IT:1.1, PEEP:14 and FIO2 80%. Afebrile. 08/20 Patient remains sedated and intubated. Remains on PRVC/AC mode with improvements in her oxygenation on FIO2 50% from 80% yesterday and PEEP:12. 08/21 Patient remains sedated and intubated. On PRVC/AC mode with RR 20, TV 400, IT:1.1, PEEP: 12 and FIO2 50%. Afebrile. 08/22 No acute events overnight. Remains sedated, intubated and on Nimbex.. T: 99.8. On PRVC mode with PEP: 12, FIO2 50%. CXR from yesterday showed better aeration, RLL infiltrate unchanged. 08/23 Chest x-ray worsening. Methylprednisolone taper to twice a day by pulmonary. The patient's FiO2 was found to be 100% this a.m., will continue to wean. 08/24: 1 desat episode yesterday when supine. still remains prone now. no vasopressors. sedated and paralyzed. 08/25: flolan added yesterday. fio2 down to 60%. remained supine all night. still on neuromuscular blockade. net -500cc/24h. 08/26: good diuresis. remained supine. fio2 70%. weaning flolan. remains with significant respiratory support and high peep despite 6L diuresis overnight. Cr still stable. 08/27: continues with good diuresis. net negative 3L/24h. fio2 down to 55%. flolan off. still high peep. not ready for SBT. more agitated today. Cr remains stable despite aggressive diuresis. 08/28: diuresis continues. -3.3L/24h. spiked fever overnight with a jump in wbc to 16 this AM. fio2 60%, but her pulmonary improvements have plateaued at this point. still on peep 12. 08/29: net -1.7L/24h. Cr starting to rise. still spiking fevers despite vanc/ cefepime added yesterday. wbc continues to rise. clinically appears infected, although unclear source. peep 10, fio2 60%. will likely need trach. 08/30: net +800cc, but Cr downtrending. appears clinically euvolemic. fever curve downtrending. wbc downtrending. on 40% fio2, peep 8 today. still following commands. 08/31: failed SBT after only 45 minutes yesterday. intubated for > 2 weeks at this point. will attempt to pursue trach/peg today. will continue with pulmonary strengthening. daily SBTs. 09/01 CXR showing increasing bibasilar infiltrate. Failed C Pap trial in 5 minutes due to severe tachypnea. PEG tube today. Family has not decided on trach yet 09/02: Patient febrile to 101.1, CXR increased infiltrate Tmax Tmax 101.1. Currently 9.7 left upper lung and right lower lobe. Pancultured. Cefepime added today and one dose of vancomycin. Continues to fail C Pap trial due to tachypnea and respiratory distress 09/03: Remains hypoxemic on 75% oxygen with new pneumonia. Sputum culture 09/02/16 with GNR. Family agreeable for tracheostomy but patient is not stable at this point for trach 09/04: still on 70% fio2. still hypoxic. pneumonia persists. needs trach, but too unstable at this point. 09/05: remains on 75% fio2. pseudomonas sensitivities came back resistant to carbapenems, intermediate to levaquin. still spiking fevers. not clinically improving. wbc remains elevated. 09/06: Remains on 12 of PEEP and FiO2 75%. Zosyn and tobramycin started yesterday. WBC count trending down today 11.5 from 13.1. Remains heavily sedated for ventilator synchrony. MAXIMUM TEMPERATURE 100.3 09/07: Continues to spike fever. CXR unchanged. WBC count improving. PEEP 14. FiO2 60%. Will start IV Bumex 1mg IV q12 09/09: Tolerating tube feeds at goal. Afebrile. No documented bowel movement. Currently sedated on the ventilator 09/10: Tmax 99.7. Currently 99.4. No bowel movement yesterday. None document since 09/04. Arousable on the ventilator 09/11: Tmax 102.6. Currently 100. Positive BM. Arousable on the ventilator. Tolerating tube feeds. Central line changed yesterday. Plan for bronchoscopy at 1 PM. 09/12: Tmax 100.1. Currently afebrile. Follows commands today. Wiggles toes and give thumbs up appropriately. MRI brain canceled. Tolerating tube feeding with positive BM. Tracheostomy currently planned for . 09/13: Tmax 102. Again on sedation vacation falls commands by wiggling toes bilaterally and giving thumbs up bilaterally appropriate. Tolerating tube feeding with positive BM. Tracheostomy planned for tomorrow with Dr. Ortega. 09/14: Low grade fever. CXR showing more prominent infiltrate on the right lower lobe and left upper lobe. WBC trending up still in normal range. Patient is on 40% FiO2 but continues to fail CPAP due to tachypnea 09/15: Remains intubated sedated, unable to wean off the vent. Plan for tracheostomy today with Dr. Ortega. Continues to have low grade fever. CXR with persistent bibasilar infiltrates 09/16: Tmax 101.1. Currently 100.7. Awake and alert. Following commands. 09/17: Afebrile. Currently on PSV trial. Tolerating tube feeds. One bowel movement. Noted decreased urine output past 48 hours. Diuretics have been discontinued. This a.m. creatinine currently pending. 09/18: Afebrile. Adequate urine output yesterday but decreased 150 past 8 hours. Tolerating tube feeds. One bowel movement. Not tolerating PSV trials today. 09/19: Tmax 100.5. Urine output picking up. Tolerating tube feeds. No bowel movement 48 hours. Not tolerating PSV trials. 09/20: Diffuse drug morbilliform exanthem noted this a.m. Tmax 100.6. Urine output around 20 cc an hour. Not tolerating PSV trials. Possibly new right pleural effusion noted on chest x-ray. Will need hemodialysis 09/21: Tmax 100.6 currently 98.7. -4 L with hemodialysis yesterday and today. FiO2 to 60%. Tolerating tube feeds. Positive BM. Still requiring sedation 09/22: Afebrile. Tolerating tube feeds. Positive BM. 30 g per kilogram per minute of propofol. Tolerated PSV trials 3 hours today 09/23 HD today with 3.5 L removal. Tolerating CPAP for 8 hours, currently 45% with RSBI 45%. 09/24 Called by RN this morning for concern for bloody BMs. Placed heparin and warfarin on hold. Serial Hgb ordered. Hgb 9.3 -->8.6 and hemodynamically unchanged. Started on protonix drip. Heme stool is negative and now RN states she is concerned about the adequacy of specimen, so sending repeat. Had asked GI to see, however further workup will not be indicated if hemoccult is negative. Tolerating PSV 05/06 09/25: heparin restarted. hemocult negative x 2. 09/26: no changes. still failing cpap trials. 09/27: Tmax 101.5. Currently 99.5. Resting on Diprivan drip at 25 mcg/kg/m. Currently tolerating tube feeding.. One bowel movement. 09/28: Hemoglobin trending downward. Transfusing 1 unit PRBCs with hemodialysis today. Currently afebrile. Appears comfortable ventilator 2 bowel movements 5 No events overnight. Sedated with Diprivan and on ventilator via trach. T: 99.9 For Perma Cath placement today. s/p HD yesterday with removal 4L and transfusion 1unit PRBC with HD. Subjective 09/30: Tmax 100.8. No events overnight. No bowel movement. Tolerating tube feeds. Objective Vital Signs Date Time Temp Pulse Resp B/P Pulse Ox O2 Delivery O2 Flow Rate FiO2 09/30/16 12:00 40 09/30/16 12:00 92 09/30/16 12:00 100.8 18 117/60 91 Intake and Output 09/29/16 09/29/16 09/30/16 08:00 16:00 00:00 Intake Total 340 ml 406 ml 630 ml Output Total 75 ml 60 ml 200 ml Balance 265 ml 346 ml 430 ml Result Diagram: 09/30/16 0256 09/30/16 0311 Imaging Last Impressions Catheter Placement X-Ray 09/29/16 1223 Signed Impressions: Service Date/Time: Thursday, September 29, 2016 12:31 - CONCLUSION: Vas-Cath to PermCath exchange as detailed above. Taco Haas Jr., MD Chest X-Ray 09/25/16 0600 Signed Impressions: Service Date/Time: Sunday, September 25, 2016 04:36 - CONCLUSION: 1. Cardiomegaly and findings of vascular congestion without overt failure. Small right effusion 2. There has been no significant change when compared to the prior exam. Didier Zhang MD Renal Ultrasound 09/17/16 0000 Signed Impressions: Service Date/Time: Saturday, September 17, 2016 13:31 - CONCLUSION: Negative renal sonogram. Taco Davidson MD Upper Extremity Ultrasound 09/14/16 0000 Signed Impressions: Service Date/Time: August 08:32 - CONCLUSION: There is thrombus within the left subclavian and internal jugular veins. Danyel Escalante MD Lower Extremity Ultrasound 09/13/16 0000 Signed Impressions: Service Date/Time: Tuesday, September 13, 2016 22:33 - CONCLUSION: Normal examination. Leonides Mason MD Liver Ultrasound 09/08/16 0000 Signed Impressions: Service Date/Time: Thursday, September 08, 2016 08:45 - CONCLUSION: 1. Cholelithiasis with distended gallbladder. However, there are no associated findings present to diagnose acute cholecystitis. If there is persistent clinical concern for acute cholecystitis could evaluate for cystic duct obstruction with hepatobiliary scintigraphy. 2. Hepatomegaly with very heterogeneous echotexture and steatosis. Dejan Allison MD Gall Bladder Ultrasound 08/29/16 0000 Signed Impressions: Service Date/Time: Monday, August 29, 2016 15:21 - CONCLUSION: 1. Hepatomegaly with heterogeneous echotexture throughout the liver. 2. There is a large echogenic area near the neck of the gallbladder suggestive of a stone, but despite its large size, demonstrates no acoustic shadowing in any of the views. Taco Davidson MD CT Angiography 08/15/16 0000 Signed Impressions: Service Date/Time: Monday, August 15, 2016 02:33 - CONCLUSION: 1. No evidence for pulmonary embolism. 2. Multifocal consolidation greatest in the right lower lobe and associated adenopathy. Terry Estrada MD Objective Remarks GENERAL: 56 yo female currently resting in bed mechanically ventilated SKIN: Warm and dry. Skin is flaky. Rash is resolved. Noted stage I to 2 decubitus ulcer\coccyx and back covered with Mepilex HEAD: Normocephalic. EYES: No scleral icterus. No injection or drainage. NECK: Neck is obese. Right subclavian hemodialysis catheters clean dry and intact. Tracheostomy is clean dry and intact CARDIOVASCULAR: RRR. S1, S2 no S4 . No murmur RESPIRATORY: Diminished breath sounds throughout due to body habitus GASTROINTESTINAL: Abdomen obese, soft, non-tender, hypoactive active bowel sounds. G-tube is clean dry and intact MUSCULOSKELETAL: Crinkling of bilateral lower extremities. 1+ edema BUE. Neuro: Awake, makes eye contact and nods to questions. Currently following commands moving upper and lower extremity spontaneously. A/P Problem List: (1) ARDS (adult respiratory distress syndrome) ICD Code: J80 Status: Acute (2) CHF (congestive heart failure) ICD Code: I50.9 Status: Acute (3) Respiratory failure ICD Code: J96.90 Status: Acute (4) Pneumonia ICD Code: J18.9 Status: Acute Assessment and Plan Neuro/Psych: Acute toxic metabolic encephalopathy Agitated delirium On Diprivan infusion for sedation, daily sedation vacation. Fentanyl allergy Continue Seroquel 75mg po q8h . Oxycodone 5 mg every 4 hours. Additional 5 mg q 4hours as needed EEG 09/09 moderate to severe encephalopathy Pulm: Acute hypercapnic and hypoxemic respiratory failure ARDS Pneumonia community-acquired, now with HCAP with carbapenem-resistant pseudomonas Probable JOE PRVC /1.07/31/39, Ventilator bundle Bronchodilator therapy every 4 hours and as needed Pulm has followed- Dr. Beck Gen surgery Dr. Ortega s/p s tracheostomy 09/15 Pulm toilet, trach care CV: Hypertension Dyslipidemia Elevated troponin - likely strain Metoprolol 12.5 mg by mouth 3 times a day Echo 08/14 showed EF 65-70% mild AR/TR On Pravachol 20 mg a night. For dyslipidemia Renal/: Acute kidney injury - requiring hemodialysis Dr. Tan -nephrology following. Hemodialysis Sunday//Sunday MIKE: ATN from sepsis syndrome and diminished renal perfusion ; also aminoglycoside induced nephrotoxicity likely also contributing; possibly AIN -> per nephrology note Urine eosinophils negative. Renal ultrasound revealed no hydronephrosis Monitor renal function, I/O's, avoid nephrotoxins On Bumex 2mg IV BID nephrology HD today with planned removal 4L. GI: Elevated transaminases Cholelithiasis US liver: Fatty liver and cholelithiasis. Repeat 09/08 revealed cholelithiasis with no acute signs of cholecystitis. Recommend a HIDA scan if indicated On TF Nepro's 45 cc an hour and beneprotein 2 packs 3 times a day s/p PEG placement 09/01/[address] Stone Mac/Winston LopesaLAMulugeta for bowel regimen. Pepcid 20 mg liquid daily GI prophylaxis ID: Pseudomonas pneumonia Funguria, Maribell glabrata and parapsilosis. Pertinent cultures blood and sputum cx 08/15- NG strep pneumonia and Legionella urinary Ag negative Blood cultures 08/28: NGTD C Diff negative 08/28. Lines changed 08/28. Sputum 08/30 - Pseudomonas Sputum 09/02 PSAE, resistant to carbapenem, intermediate to Levaquin. 09/07 - urine -Maribell Guilliermondii 09/07 - blood cultures 2 - no growth 09/09 - urine -strep viridans, Maribell parapsilosis 09/10 - blood cultures 2 -no growth 09/11 - broch washings -no growth to date 09/12 - urine -Maribell glabrata and parapsilosis 09/16 - blood cultures 2 - pending 09/16 - sputum -no growth 09/16 - urine -Maribell glabrata and parapsilosis Zosyn previously discontinued secondary to rash Has been off abx since 4/24 when ID discontinued Cefepime, tobramycin aerosols , Diflucan, and Vfend. - ID following at a distance currently. 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 Resume Heparin once Perma Cath placed today Endo: Diabetes mellitus Hypothyroidism on SSI (medium scale) for glycemic control On Synthroid 200mcg daily. TSH 1.37 GI prophylaxis-Protonix 40mg Q12 DVT - Heparin gtt - Continue , SCDs Lines: Peripheral IV. - PEG 09/01/16 - Trach 09/15 -Right Permacath placed 09/29 Critical Care: The total critical care time was 35 minutes. Time to perform other separately billable procedures was not included in the critical care time. Loree Marinelli, daughter (HCP): [phone] Rony Marinelli, significant other: [phone] Problem Qualifiers (1) CHF (congestive heart failure): Qualified Code: I50.9 - Acute congestive heart failure, unspecified congestive heart failure type (2) Respiratory failure: Qualified Code: J96.02 - Acute respiratory failure with hypercapnia (3) Pneumonia: Qualified Code: J18.9 - Pneumonia of both lungs due to infectious organism, unspecified part of lung Fadi Villa MD September 30, 2016 12:54
[2016-09-30] MEDS ORDERED: MINERAL OIL LIQUID 30 ML CUP PO ONE (13:00)
[2016-09-30] MEDS: ALBUMIN HUMAN 25% 25 GM/100 ML BAGP IV PRN (13:29)
[2016-09-30] MEDS: GENTAMICIN SULFATE (DIALYSIS USE ONLY) 20 MG/2 ML VIAL IV PRN (13:29)
[2016-09-30] MEDS: SODIUM CHLOR 0.9% 1000 ML INJ 1,000 ML IV PRN (13:29)
[2016-09-30] MEDS: HEPARIN SODIUM - IV 10,000 UNITS/10 ML VIAL PRN (13:29)
[2016-09-30] MEDS: WARFARIN SOD 2.5 MG TAB PO SCH (16:21)
[2016-09-30] MEDS: PRAVASTATIN SOD 20 MG TAB PO SCH (20:03)
[2016-09-30 20:34] LABS: APTT (PATIENT) 38.1 SEC (24.3-30.1)
[2016-09-30] MEDS: ACETAMINOPHEN 325 MG TAB PO PRN (22:30)
[2016-10-01] VITALS (19 sets, daily range): BP systolic 92–139; BP diastolic 51–75; PULSE 80–104; RESP 12–20; TEMP 98.9–101.3; O2SAT 90–100
[2016-10-01] MEDS: oxyCODONE HCL ORAL CONC 20 MG/ML SYRINGE G-TUBE SCH ×7 (00:36→23:07)
[2016-10-01 03:26] LABS: BICARBONATE 26.9 MEQ/L (21.0-32.0); POTASSIUM 3.6 MEQ/L (3.5-5.1)
[2016-10-01 03:29] LABS: HEMATOCRIT 26.9 % (35.0-46.0); MEAN CORPUSCULAR HEMOGLOBIN 27.5 PG (27.0-34.0); MEAN CORPUSCULAR HGB CONC 32.8 % (32.0-36.0); PLATELET COUNT 269 TH/MM3 (150-450); RED CELL DISTRIBUTION WIDTH 17.9 % (11.6-17.2); REVIEW FLAG FINAL; WHITE BLOOD COUNT 14.9 TH/MM3 (4.0-11.0)
[2016-10-01] MEDS: RESP: ALBUTEROL 2.5 MG/IPRATROPIUM 0.5 MG NEB (SCH) INH ×4 (03:30→21:04)
[2016-10-01 03:45] LABS: APTT (PATIENT) 30.8 SEC (24.3-30.1); PROTHROMBIN TIME - PATIENT 10.7 SEC (9.8-11.6)
[2016-10-01] MEDS: CHLORHEXIDINE GLUCONATE 2 % 1 PACK (2 CLOTHS) TOP SCH (04:00)
[2016-10-01] MEDS: HEPARIN-D5W 25,000 U/250 ML 250 ML IV SCH ×2 (04:38→14:15)
[2016-10-01] MEDS: METOCLOPRAMIDE HCL 10 MG/2 ML VIAL IV PUSH SCH ×3 (05:41→19:55)
[2016-10-01] MEDS: QUEtiapine FUMARATE 25 MG TAB PO SCH ×3 (05:42→19:55)
[2016-10-01] MEDS: METOPROLOL TARTRATE 25 MG TAB G-TUBE SCH ×3 (05:42→19:55)
[2016-10-01] MEDS: LEVOTHYROXINE SODIUM 200 MCG TAB PO SCH (05:42)
[2016-10-01] MEDS: ARTIFICIAL TEARS OPTH SOLN 15 ML BTL EACH EYE SCH ×3 (08:04→17:00)
[2016-10-01] MEDS: EUCERIN CREAM 120 GM JAR TOPICAL SCH ×2 (08:04→19:57)
[2016-10-01] MEDS: DOCUSATE SODIUM 100 MG/10 ML UDC PO SCH ×2 (08:05→19:56)
[2016-10-01] MEDS: BUMETANIDE INJ 1 MG/4 ML VIAL IV PUSH SCH ×2 (08:05→17:01)
[2016-10-01] MEDS: CALCIUM ACETATE 667 MG CAP PO SCH ×3 (08:05→17:01)
[2016-10-01] MEDS: POLYETHYLENE GLYCOL 17 GM PKG PO SCH ×2 (08:05→19:56)
[2016-10-01] MEDS: SODIUM CHLORIDE 0.9% FLUSH 10 ML FLUSH IV FLUSH SCH ×2 (08:05→19:56)
[2016-10-01] MEDS: SENNOSIDES SYRUP 8.8 MG/5 ML CUP PO SCH ×2 (08:05→19:56)
[2016-10-01] MEDS: SODIUM CHLORIDE 0.9% FLUSH 10 ML FLUSH IVF SCH (08:06)
[2016-10-01] MEDS: BENEPROTEIN POWDER 1 PACK G-TUBE SCH ×3 (08:06→17:01)
[2016-10-01] MEDS: PROPOFOL 1000 MG/100 ML INJ 100 ML IV SCH ×3 (08:16→20:08)
[2016-10-01 09:01] LABS: APTT (PATIENT) 39.9 SEC (24.3-30.1)
--- NOTE | 2016-10-01 10:02 | HHI.PR ---
Subjective Remarks Patient remains sedated with Diprivan and on ventilator via trach. s/p HD yesterday with removal 4L. Afebrile and is on heparin drip. Objective Vital Signs Vital Signs Date Time Temp Pulse Resp B/P Pulse Ox O2 Delivery O2 Flow Rate FiO2 10/01/16 07:39 91 40 10/01/16 06:00 91 10/01/16 04:09 90 40 10/01/16 04:00 95 10/01/16 04:00 98.9 95 12 139/75 95 10/01/16 04:00 40 10/01/16 02:00 104 10/01/16 01:09 92 40 10/01/16 00:00 99.0 90 14 106/56 92 10/01/16 00:00 90 10/01/16 00:00 40 09/30/16 22:08 93 40 09/30/16 22:00 93 09/30/16 20:00 40 09/30/16 20:00 102 09/30/16 20:00 101.2 102 14 113/59 90 09/30/16 19:08 98 40 09/30/16 18:00 105 09/30/16 16:27 93 40 09/30/16 16:00 99.5 99 20 124/67 93 09/30/16 16:00 99 09/30/16 16:00 40 09/30/16 14:00 94 09/30/16 13:05 92 40 09/30/16 12:00 40 09/30/16 12:00 92 09/30/16 12:00 100.8 92 18 117/60 91 09/30/16 10:00 92 I/O 09/30/16 09/30/16 09/30/16 10/01/16 10/01/16 10/01/16 07:00 15:00 23:00 07:00 15:00 23:00 Intake Total 610 ml 862 ml 605 ml 614 ml Output Total 100 ml 125 ml 5050 ml 65 ml Balance 510 ml 737 ml -4445 ml 549 ml Intake Oral 0 ml 0 ml IV Total 260 ml 321 ml 280 ml 282 ml Tube Feeding 310 ml 341 ml 265 ml 272 ml Tube Irrigant 40 ml 200 ml 60 ml 60 ml Output Urine Total 100 ml 125 ml 50 ml 65 ml Stool Total 0 ml Hemodialysis 5000 ml # Bowel Movements 1 1 1 Result Diagram: 10/01/16 0239 10/01/16 0239 Other Results Laboratory Tests Test 09/30/16 10/01/16 10/01/16 20:15 02:39 08:19 Activated Partial 38.1 SEC 30.8 SEC 39.9 SEC Thromboplast Time White Blood Count 14.9 TH/MM3 Red Blood Count 3.20 MIL/MM3 Hemoglobin 8.8 GM/DL Hematocrit 26.9 % Mean Corpuscular Volume 84.0 FL Mean Corpuscular Hemoglobin 27.5 PG Mean Corpuscular Hemoglobin 32.8 % Concent Red Cell Distribution Width 17.9 % Platelet Count 269 TH/MM3 Mean Platelet Volume 7.7 FL Prothrombin Time 10.7 SEC Prothromb Time International 1.0 RATIO Ratio Sodium Level 133 MEQ/L Potassium Level 3.6 MEQ/L Chloride Level 93 MEQ/L Carbon Dioxide Level 26.9 MEQ/L Anion Gap 13 MEQ/L Blood Urea Nitrogen 36 MG/DL Creatinine 2.65 MG/DL Estimat Glomerular Filtration 19 ML/MIN Rate Random Glucose 112 MG/DL Calcium Level 8.9 MG/DL Objective Remarks GENERAL: Patient is 56y intubated and sedated SKIN: Warm and dry. HEAD: Normocephalic. EYES: No scleral icterus. No injection or drainage. NECK: Supple, trachea midline. No JVD or lymphadenopathy. Trach in place CARDIOVASCULAR: Regular rate and rhythm without murmurs, gallops, or rubs. RESPIRATORY: Breath sounds equal bilaterally. No accessory muscle use. GASTROINTESTINAL: Abdomen soft, non-tender, nondistended. MUSCULOSKELETAL: No cyanosis, or edema. Neuro: Sedated A/P Assessment and Plan 1)VDRF 2)Pneumonia - sputum cx: Pseudomonas 3)Obstructive sleep apnea syndrome 4)Hypertension 5)Hypothyroidism. 6)Obesity 7)Anemia 8)ESRD 9)Left IJ/subclavian nonocclusive thrombus Plan On Diprivan infusion for sedation, daily sedation vacation and monitor neuro status. Continue with vent support keep sat >92% Bronchodilators, ICU vent bundle, SBT daily as tiki On PRVC/AC RR 12, TV 650, IT: 1.30, PEEP:5, FIO2 40%. Check CXR Off abx monitor for signs of infections ( Fever, WBC) s/p HD today with removal 4L yesterday, on Bumex 2mg IV BID per renal. GI/DVT prophylaxis- on Heparin drip/Coumadin, monitor PTT/INR d/c heparin drip once INR>2.0 Continue treatment plan. Ute Santamaria MD October 01, 2016 10:02
--- NOTE | 2016-10-01 10:24 | RADRPT ---
EXAM DATE/TIME: 10/01/2016 10:04 [facility] COMPARISON: CHEST SINGLE AP, September 25, 2016, 4:36. INDICATIONS : Short of breath MEDICAL HISTORY : Congestive heart failure. SURGICAL HISTORY : None. ENCOUNTER: Subsequent ACUITY: 3 weeks PAIN SCORE: Non-responsive. LOCATION: Bilateral chest FINDINGS: 2 Limited AP supine views of the chest were obtained. The patient is rotated. The tracheostomy tube r emains in place. The heart size appears at the upper limits of normal. A right-sided double-lumen lissette tral venous line remains in place. There is mild streaky opacity at the lung bases most consistent wi th atelectasis. CONCLUSION: 1. Streaky opacity at the lung bases most consistent with atelectasis. 2. Suboptimal exam with no confluent infiltrates. Scotty Huynh MD on October 01, 2016 at 10:21 Board Certified Radiologist. This report was verified electronically.
[2016-10-01] MEDS: ACETAMINOPHEN 325 MG TAB PO PRN ×2 (11:28→17:01)
[2016-10-01] MEDS: PANTOPRAZOLE SODIUM 40 MG VIAL IV PUSH SCH ×2 (11:28→23:07)
--- NOTE | 2016-10-01 12:22 | HHI.NPPN ---
Subjective General Problems: Edema, Hypotension, Obesity Renal Failure: Acute Additional Remarks Patient remain intubated and sedated, moving all extremities, clinically same. Review of Systems General General Remarks unable to evaluate Objective Data Data 09/30/16 10/01/16 19:00 07:00 Intake Total 862 ml 1219 ml Output Total 5125 ml 115 ml Balance -4263 ml 1104 ml Intake Oral 0 ml IV Total 321 ml 562 ml Tube Feeding 341 ml 537 ml Tube Irrigant 200 ml 120 ml Output Urine Total 125 ml 115 ml Hemodialysis 5000 ml # Bowel Movements 1 2 Vital Signs Date Time Temp Pulse Resp B/P Pulse Ox O2 Delivery O2 Flow Rate FiO2 10/01/16 11:05 94 50 10/01/16 10:00 92 10/01/16 08:00 100.8 88 16 124/67 90 10/01/16 08:00 88 10/01/16 08:00 40 10/01/16 07:39 91 40 10/01/16 06:00 91 10/01/16 04:09 90 40 10/01/16 04:00 95 10/01/16 04:00 98.9 95 12 139/75 95 10/01/16 04:00 40 10/01/16 02:00 104 10/01/16 01:09 92 40 10/01/16 00:00 99.0 90 14 106/56 92 10/01/16 00:00 90 10/01/16 00:00 40 09/30/16 22:08 93 40 09/30/16 22:00 93 09/30/16 20:00 40 09/30/16 20:00 102 09/30/16 20:00 101.2 102 14 113/59 90 09/30/16 19:08 98 40 09/30/16 18:00 105 09/30/16 16:27 93 40 09/30/16 16:00 99.5 99 20 124/67 93 09/30/16 16:00 99 09/30/16 16:00 40 09/30/16 14:00 94 09/30/16 13:05 92 40 -: 10/01/16 0239 10/01/16 0239 Tubes & Lines: Miller Tubes & Lines Comment trach, PEG Drip Comment heparin, propofol Physical Exam General Appearance: No Acute Distress, Comfortable, Obese Appearance Remarks Intubated and sedated. Throat Throat Exam: Oral Mucosa Gough & Moist Neck Neck Exam: Neck Supple Cardiology CV Exam: Regular, Normal Sinus Rhythm Gastrointestinal/Abdomen GI Exam: Soft, Bowel Sounds Present, Distended Musculoskeletal MS Exam: Joints Intact Integumentary Skin Exam: Warm, Dry Extremeties Extremities Exam: Moderate Edema, Pitting Edema, Dependent Edema Neurologic Neuro Exam: Unresponsive, Sedated VTE Prophylaxis Device: SCDs Assessment/Plan Assessment Summary: MIKE/Acute Renal Failure, Acute Tubular Necrosis, Fluid/ Volume Overload, Hypotension Electrolyte Assessment: Hyponatremia Problem List: (1) Acute kidney injury Plan: In a pt with normal renal function at baseline MIKE: ATN from sepsis syndrome and diminished renal perfusion ; also aminoglycoside induced nephrotoxicity likely also contributing; possibly AIN HD initiated 09/20; currently on TTS schedule permcath placement done yesterday. obtain daily renal panel continue PhosLo for hyperphosphatemia on Nepro tube feeding , avoid free water flushes due to hyponatremia Avoid nephrotoxic agents. Avoid IVF await signs of renal recovery Continue supportive care. HD done yesterday and 5 liters removed. Urine out put remain low. HD to continue as needed. (2) ARDS (adult respiratory distress syndrome) Plan: s/p trach placement continue Ventilator support: A/C 14/650/40/10 Sap [employer] managing. Sanaz when able (3) Anemia Plan: Hb low but improved, had recent stool for occult bleeding test negative x 2 on heparin also on protonix GI following, transfuse PRN; given 1 unit 5/4 (4) Pneumonia Plan: Pseudomonas in the sputum. ID following. monitor the pt clinically, she is currently off antibiotics afebrile today (5) Hypothyroidism Plan: on synthroid (6) Morbid obesity (7) DVT (deep venous thrombosis) Plan: in IJ after central line was placed on heparin bridge to coumadin will need anticoagulants held pre procedure Problem Qualifiers (1) Pneumonia: Qualified Code: J18.9 - Pneumonia of both lungs due to infectious organism, unspecified part of lung Stefanie Dennis MD October 01, 2016 12:22
--- NOTE | 2016-10-01 13:07 | HHI.CCPN ---
Subjective Remarks/Hospital Course 56-year-old morbidly obese female brought in the emergency department in respiratory distress. She was intubated by ER attending. She has been sick for about a week with symptoms consistent with UTI. She's had fevers and chills. She's been short of breath. She's had fatigue. She has had a cough and chest pain with coughing. The family reports that she's been delirious for the last 3 days. 08/15 Patient is sedated with Diprivan, Versed, Fentanyl and intubated. CTA chest showed no PE multifocal consolidation greatest in RLL. Tmax 100.6 08/16 Patient is sedated with Diprivan and Fentanyl. Afebrile. CXR this morning showed increase consolidation. 08/17 Patient remains sedated and intubated. T:100.4 On PRVC/AC RR 18, Tv 500, IT :1.0 PEEP:10, FIO2 75% 08/18 Remains sedated and intubated. Afebrile. CXR this morning unchanged bibasilar infiltrates and effusions. 08/19 Patient was placed on rotoprone bed last night for proning sedated with Diprivan, Versed and Fentnayl in addition she is on Nimbex. On PRVC/AC RR 20, TV 400, IT:1.1, PEEP:14 and FIO2 80%. Afebrile. 08/20 Patient remains sedated and intubated. Remains on PRVC/AC mode with improvements in her oxygenation on FIO2 50% from 80% yesterday and PEEP:12. 08/21 Patient remains sedated and intubated. On PRVC/AC mode with RR 20, TV 400, IT:1.1, PEEP: 12 and FIO2 50%. Afebrile. 08/22 No acute events overnight. Remains sedated, intubated and on Nimbex.. T: 99.8. On PRVC mode with PEP: 12, FIO2 50%. CXR from yesterday showed better aeration, RLL infiltrate unchanged. 08/23 Chest x-ray worsening. Methylprednisolone taper to twice a day by pulmonary. The patient's FiO2 was found to be 100% this a.m., will continue to wean. 08/24: 1 desat episode yesterday when supine. still remains prone now. no vasopressors. sedated and paralyzed. 08/25: flolan added yesterday. fio2 down to 60%. remained supine all night. still on neuromuscular blockade. net -500cc/24h. 08/26: good diuresis. remained supine. fio2 70%. weaning flolan. remains with significant respiratory support and high peep despite 6L diuresis overnight. Cr still stable. 08/27: continues with good diuresis. net negative 3L/24h. fio2 down to 55%. flolan off. still high peep. not ready for SBT. more agitated today. Cr remains stable despite aggressive diuresis. 08/28: diuresis continues. -3.3L/24h. spiked fever overnight with a jump in wbc to 16 this AM. fio2 60%, but her pulmonary improvements have plateaued at this point. still on peep 12. 08/29: net -1.7L/24h. Cr starting to rise. still spiking fevers despite vanc/ cefepime added yesterday. wbc continues to rise. clinically appears infected, although unclear source. peep 10, fio2 60%. will likely need trach. 08/30: net +800cc, but Cr downtrending. appears clinically euvolemic. fever curve downtrending. wbc downtrending. on 40% fio2, peep 8 today. still following commands. 08/31: failed SBT after only 45 minutes yesterday. intubated for > 2 weeks at this point. will attempt to pursue trach/peg today. will continue with pulmonary strengthening. daily SBTs. 09/01 CXR showing increasing bibasilar infiltrate. Failed C Pap trial in 5 minutes due to severe tachypnea. PEG tube today. Family has not decided on trach yet 09/02: Patient febrile to 101.1, CXR increased infiltrate Tmax Tmax 101.1. Currently 9.7 left upper lung and right lower lobe. Pancultured. Cefepime added today and one dose of vancomycin. Continues to fail C Pap trial due to tachypnea and respiratory distress 09/03: Remains hypoxemic on 75% oxygen with new pneumonia. Sputum culture 09/02/16 with GNR. Family agreeable for tracheostomy but patient is not stable at this point for trach 09/04: still on 70% fio2. still hypoxic. pneumonia persists. needs trach, but too unstable at this point. 09/05: remains on 75% fio2. pseudomonas sensitivities came back resistant to carbapenems, intermediate to levaquin. still spiking fevers. not clinically improving. wbc remains elevated. 09/06: Remains on 12 of PEEP and FiO2 75%. Zosyn and tobramycin started yesterday. WBC count trending down today 11.5 from 13.1. Remains heavily sedated for ventilator synchrony. MAXIMUM TEMPERATURE 100.3 09/07: Continues to spike fever. CXR unchanged. WBC count improving. PEEP 14. FiO2 60%. Will start IV Bumex 1mg IV q12 09/09: Tolerating tube feeds at goal. Afebrile. No documented bowel movement. Currently sedated on the ventilator 09/10: Tmax 99.7. Currently 99.4. No bowel movement yesterday. None document since 09/04. Arousable on the ventilator 09/11: Tmax 102.6. Currently 100. Positive BM. Arousable on the ventilator. Tolerating tube feeds. Central line changed yesterday. Plan for bronchoscopy at 1 PM. 09/12: Tmax 100.1. Currently afebrile. Follows commands today. Wiggles toes and give thumbs up appropriately. MRI brain canceled. Tolerating tube feeding with positive BM. Tracheostomy currently planned for . 09/13: Tmax 102. Again on sedation vacation falls commands by wiggling toes bilaterally and giving thumbs up bilaterally appropriate. Tolerating tube feeding with positive BM. Tracheostomy planned for tomorrow with Dr. Ortega. 09/14: Low grade fever. CXR showing more prominent infiltrate on the right lower lobe and left upper lobe. WBC trending up still in normal range. Patient is on 40% FiO2 but continues to fail CPAP due to tachypnea 09/15: Remains intubated sedated, unable to wean off the vent. Plan for tracheostomy today with Dr. Ortega. Continues to have low grade fever. CXR with persistent bibasilar infiltrates 09/16: Tmax 101.1. Currently 100.7. Awake and alert. Following commands. 09/17: Afebrile. Currently on PSV trial. Tolerating tube feeds. One bowel movement. Noted decreased urine output past 48 hours. Diuretics have been discontinued. This a.m. creatinine currently pending. 09/18: Afebrile. Adequate urine output yesterday but decreased 150 past 8 hours. Tolerating tube feeds. One bowel movement. Not tolerating PSV trials today. 09/19: Tmax 100.5. Urine output picking up. Tolerating tube feeds. No bowel movement 48 hours. Not tolerating PSV trials. 09/20: Diffuse drug morbilliform exanthem noted this a.m. Tmax 100.6. Urine output around 20 cc an hour. Not tolerating PSV trials. Possibly new right pleural effusion noted on chest x-ray. Will need hemodialysis 09/21: Tmax 100.6 currently 98.7. -4 L with hemodialysis yesterday and today. FiO2 to 60%. Tolerating tube feeds. Positive BM. Still requiring sedation 09/22: Afebrile. Tolerating tube feeds. Positive BM. 30 g per kilogram per minute of propofol. Tolerated PSV trials 3 hours today 09/23 HD today with 3.5 L removal. Tolerating CPAP for 8 hours, currently 45% with RSBI 45%. 09/24 Called by RN this morning for concern for bloody BMs. Placed heparin and warfarin on hold. Serial Hgb ordered. Hgb 9.3 -->8.6 and hemodynamically unchanged. Started on protonix drip. Heme stool is negative and now RN states she is concerned about the adequacy of specimen, so sending repeat. Had asked GI to see, however further workup will not be indicated if hemoccult is negative. Tolerating PSV 05/06 09/25: heparin restarted. hemocult negative x 2. 09/26: no changes. still failing cpap trials. 09/27: Tmax 101.5. Currently 99.5. Resting on Diprivan drip at 25 mcg/kg/m. Currently tolerating tube feeding.. One bowel movement. 09/28: Hemoglobin trending downward. Transfusing 1 unit PRBCs with hemodialysis today. Currently afebrile. Appears comfortable ventilator 2 bowel movements 09/29 No events overnight. Sedated with Diprivan and on ventilator via trach. T: 99.9 For Perma Cath placement today. s/p HD yesterday with removal 4L and transfusion 1unit PRBC with HD. 09/30: Tmax 100.8. No events overnight. No bowel movement. Tolerating tube feeds. Subjective 10/01: Tmax 101.3. Currently resting in bed in no acute distress. Tolerating tube feeds. Chest x-ray revealed atelectasis. -5 L with hemodialysis yesterday. Objective Vital Signs Date Time Temp Pulse Resp B/P Pulse Ox O2 Delivery O2 Flow Rate FiO2 10/01/16 12:00 86 10/01/16 12:00 40 10/01/16 12:00 101.3 20 95/55 93 Intake and Output 09/30/16 09/30/16 10/01/16 08:00 16:00 00:00 Intake Total 610 ml 862 ml 605 ml Output Total 100 ml 125 ml 5050 ml Balance 510 ml 737 ml -4445 ml Result Diagram: 10/01/16 0239 10/01/16 0239 Imaging Last Impressions Catheter Placement X-Ray 09/29/16 1223 Signed Impressions: Service Date/Time: Thursday, September 29, 2016 12:31 - CONCLUSION: Vas-Cath to PermCath exchange as detailed above. Taco Haas Jr., MD Chest X-Ray 09/25/16 0600 Signed Impressions: Service Date/Time: Sunday, September 25, 2016 04:36 - CONCLUSION: 1. Cardiomegaly and findings of vascular congestion without overt failure. Small right effusion 2. There has been no significant change when compared to the prior exam. Didier Zhang MD Renal Ultrasound 09/17/16 0000 Signed Impressions: Service Date/Time: Saturday, September 17, 2016 13:31 - CONCLUSION: Negative renal sonogram. Taco Davidson MD Upper Extremity Ultrasound 09/14/16 0000 Signed Impressions: Service Date/Time: August 08:32 - CONCLUSION: There is thrombus within the left subclavian and internal jugular veins. Danyel Escalante MD Lower Extremity Ultrasound 09/13/16 0000 Signed Impressions: Service Date/Time: Tuesday, September 13, 2016 22:33 - CONCLUSION: Normal examination. Leonides Mason MD Liver Ultrasound 09/08/16 0000 Signed Impressions: Service Date/Time: Thursday, September 08, 2016 08:45 - CONCLUSION: 1. Cholelithiasis with distended gallbladder. However, there are no associated findings present to diagnose acute cholecystitis. If there is persistent clinical concern for acute cholecystitis could evaluate for cystic duct obstruction with hepatobiliary scintigraphy. 2. Hepatomegaly with very heterogeneous echotexture and steatosis. Dejan Allison MD Gall Bladder Ultrasound 08/29/16 0000 Signed Impressions: Service Date/Time: Monday, August 29, 2016 15:21 - CONCLUSION: 1. Hepatomegaly with heterogeneous echotexture throughout the liver. 2. There is a large echogenic area near the neck of the gallbladder suggestive of a stone, but despite its large size, demonstrates no acoustic shadowing in any of the views. Taco Davidson MD CT Angiography 08/15/16 0000 Signed Impressions: Service Date/Time: Monday, August 15, 2016 02:33 - CONCLUSION: 1. No evidence for pulmonary embolism. 2. Multifocal consolidation greatest in the right lower lobe and associated adenopathy. Terry Estrada MD Objective Remarks GENERAL: 56 yo female currently resting in bed mechanically ventilated SKIN: Warm and dry. Skin is flaky. Rash is resolved. Noted stage I to 2 decubitus ulcer\coccyx and back covered with Mepilex HEAD: Normocephalic. EYES: No scleral icterus. No injection or drainage. NECK: Neck is obese. Right subclavian hemodialysis catheters clean dry and intact. Tracheostomy is clean dry and intact CARDIOVASCULAR: RRR. S1, S2 no S4 . No murmur RESPIRATORY: Diminished breath sounds throughout due to body habitus GASTROINTESTINAL: Abdomen obese, soft, non-tender, hypoactive active bowel sounds. G-tube is clean dry and intact MUSCULOSKELETAL: Crinkling of bilateral lower extremities. 1+ edema BUE. Neuro: Awake, makes eye contact and nods to questions. Currently following commands moving upper and lower extremity spontaneously. A/P Problem List: (1) ARDS (adult respiratory distress syndrome) ICD Code: J80 Status: Acute (2) CHF (congestive heart failure) ICD Code: I50.9 Status: Acute (3) Respiratory failure ICD Code: J96.90 Status: Acute (4) Pneumonia ICD Code: J18.9 Status: Acute Assessment and Plan Neuro/Psych: Acute toxic metabolic encephalopathy Agitated delirium On Diprivan infusion for sedation, daily sedation vacation. Fentanyl allergy Continue Seroquel 75mg po q8h . Oxycodone 5 mg every 4 hours. Additional 5 mg q 4hours as needed EEG 09/09 moderate to severe encephalopathy Pulm: Acute hypercapnic and hypoxemic respiratory failure ARDS Pneumonia community-acquired, now with HCAP with carbapenem-resistant pseudomonas Probable JOE PRVC 16/650/1.07/30/49, Ventilator bundle Bronchodilator therapy every 4 hours and as needed Pulm has followed- Dr. Beck Gen surgery Dr. Ortega s/p s tracheostomy 09/15 Pulm toilet, trach care Chest x-ray 10/11 revealed atelectasis CV: Hypertension Dyslipidemia Elevated troponin - likely strain Metoprolol 12.5 mg by mouth 3 times a day Echo 08/14 showed EF 65-70% mild AR/TR On Pravachol 20 mg a night. For dyslipidemia Renal/: Acute kidney injury - requiring hemodialysis Dr. Tan -nephrology following. Hemodialysis Sunday//Sunday MIKE: ATN from sepsis syndrome and diminished renal perfusion ; also aminoglycoside induced nephrotoxicity likely also contributing; possibly AIN -> per nephrology note Urine eosinophils negative. Renal ultrasound revealed no hydronephrosis Monitor renal function, I/O's, avoid nephrotoxins On Bumex 2mg IV BID nephrology HD 09/30 with planned removal 5L. GI: Elevated transaminases Cholelithiasis US liver: Fatty liver and cholelithiasis. Repeat 09/08 revealed cholelithiasis with no acute signs of cholecystitis. Recommend a HIDA scan if indicated On TF Nepro's 45 cc an hour and beneprotein 2 packs 3 times a day s/p PEG placement 09/01/[address] Stone Mac/[facility] MiraLAX for bowel regimen. Pepcid 20 mg liquid daily GI prophylaxis ID: Pseudomonas pneumonia Funguria, Maribell glabrata and parapsilosis. Pertinent cultures blood and sputum cx 08/15- NG strep pneumonia and Legionella urinary Ag negative Blood cultures 08/28: NGTD C Diff negative 08/28. Lines changed 08/28. Sputum 08/30 - Pseudomonas Sputum 09/02 PSAE, resistant to carbapenem, intermediate to Levaquin. 09/07 - urine -Maribell Guilliermondii 09/07 - blood cultures 2 - no growth 09/09 - urine -strep viridans, Maribell parapsilosis 09/10 - blood cultures 2 -no growth 09/11 - broch washings -no growth to date 09/12 - urine -Maribell glabrata and parapsilosis 09/16 - blood cultures 2 - pending 09/16 - sputum -no growth 09/16 - urine -Maribell glabrata and parapsilosis Zosyn previously discontinued secondary to rash Has been off abx since 09/18 when ID discontinued Cefepime, tobramycin aerosols , Diflucan, and Vfend. - ID following at a distance currently. 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 Resume Heparin once Perma Cath placed today Endo: Diabetes mellitus Hypothyroidism on SSI (medium scale) for glycemic control On Synthroid 200mcg daily. TSH 1.37 GI prophylaxis-Protonix 40mg Q12 DVT - Heparin gtt - Continue , SCDs Lines: Peripheral IV. - PEG 09/01/16 - Trach 09/15 -Right Permacath placed 09/29 Critical Care: The total critical care time was 35 minutes. Time to perform other separately billable procedures was not included in the critical care time. Loree Marinelli, daughter (HCP): [phone] Rony Marinelli, significant other: [phone] Problem Qualifiers (1) CHF (congestive heart failure): Qualified Code: I50.9 - Acute congestive heart failure, unspecified congestive heart failure type (2) Respiratory failure: Qualified Code: J96.02 - Acute respiratory failure with hypercapnia (3) Pneumonia: Qualified Code: J18.9 - Pneumonia of both lungs due to infectious organism, unspecified part of lung Fadi Villa MD October 01, 2016 13:07
[2016-10-01] MEDS: WARFARIN SOD 2.5 MG TAB PO SCH (14:20)
[2016-10-01 16:22] LABS: APTT (PATIENT) 34.9 SEC (24.3-30.1)
[2016-10-01] MEDS: PRAVASTATIN SOD 20 MG TAB PO SCH (19:56)
[2016-10-01 23:42] LABS: APTT (PATIENT) 46.6 SEC (24.3-30.1)
[2016-10-02] VITALS (18 sets, daily range): BP systolic 96–128; BP diastolic 51–76; PULSE 80–105; RESP 18–22; TEMP 98.8–102.1; O2SAT 92–95
[2016-10-02] MEDS: PROPOFOL 1000 MG/100 ML INJ 100 ML IV SCH (03:14)
[2016-10-02] MEDS: oxyCODONE HCL ORAL CONC 20 MG/ML SYRINGE G-TUBE SCH ×5 (03:15→21:23)
[2016-10-02] MEDS: CHLORHEXIDINE GLUCONATE 2 % 1 PACK (2 CLOTHS) TOP SCH (03:16)
[2016-10-02] MEDS: ACETAMINOPHEN 325 MG TAB PO PRN ×3 (03:26→18:18)
[2016-10-02] MEDS: RESP: ALBUTEROL 2.5 MG/IPRATROPIUM 0.5 MG NEB (SCH) INH ×4 (04:25→22:29)
[2016-10-02] MEDS: HEPARIN-D5W 25,000 U/250 ML 250 ML IV SCH ×2 (04:27→14:33)
[2016-10-02 04:41] LABS: HEMATOCRIT 23.7 % (35.0-46.0); MEAN CELL VOLUME 83.9 FL (80.0-100.0); MEAN CORPUSCULAR HEMOGLOBIN 28.1 PG (27.0-34.0); MEAN CORPUSCULAR HGB CONC 33.5 % (32.0-36.0); PLATELET COUNT 266 TH/MM3 (150-450); RED BLOOD COUNT 2.82 MIL/MM3 (4.00-5.30); RED CELL DISTRIBUTION WIDTH 17.9 % (11.6-17.2); REVIEW FLAG FINAL; WHITE BLOOD COUNT 13.9 TH/MM3 (4.0-11.0)
[2016-10-02 05:02] LABS: APTT (PATIENT) 41.3 SEC (24.3-30.1); PROTHROMBIN TIME - PATIENT 10.7 SEC (9.8-11.6)
[2016-10-02 05:19] LABS: BICARBONATE 26.8 MEQ/L (21.0-32.0); MAGNESIUM 2.2 MG/DL (1.5-2.5); POTASSIUM 3.8 MEQ/L (3.5-5.1)
[2016-10-02] MEDS: METOPROLOL TARTRATE 25 MG TAB G-TUBE SCH ×3 (05:36→21:24)
[2016-10-02] MEDS: LEVOTHYROXINE SODIUM 200 MCG TAB PO SCH (05:36)
[2016-10-02] MEDS: METOCLOPRAMIDE HCL 10 MG/2 ML VIAL IV PUSH SCH ×3 (05:36→21:23)
[2016-10-02] MEDS: QUEtiapine FUMARATE 25 MG TAB PO SCH ×3 (05:36→21:23)
[2016-10-02] MEDS: EUCERIN CREAM 120 GM JAR TOPICAL SCH ×2 (08:03→21:00)
[2016-10-02] MEDS: BUMETANIDE INJ 1 MG/4 ML VIAL IV PUSH SCH ×2 (08:04→18:17)
[2016-10-02] MEDS: CALCIUM ACETATE 667 MG CAP PO SCH ×3 (08:04→18:17)
[2016-10-02] MEDS: SODIUM CHLORIDE 0.9% FLUSH 10 ML FLUSH IVF SCH (08:05)
[2016-10-02] MEDS: SODIUM CHLORIDE 0.9% FLUSH 10 ML FLUSH IV FLUSH SCH ×2 (08:05→20:42)
[2016-10-02] MEDS: BENEPROTEIN POWDER 1 PACK G-TUBE SCH ×3 (08:05→18:00)
[2016-10-02] MEDS: ARTIFICIAL TEARS OPTH SOLN 15 ML BTL EACH EYE SCH ×3 (08:05→18:16)
[2016-10-02] MEDS: DOCUSATE SODIUM 100 MG/10 ML UDC PO SCH ×2 (08:06→20:45)
[2016-10-02] MEDS: SENNOSIDES SYRUP 8.8 MG/5 ML CUP PO SCH ×2 (08:06→20:45)
[2016-10-02] MEDS: POLYETHYLENE GLYCOL 17 GM PKG PO SCH ×2 (08:06→20:45)
--- NOTE | 2016-10-02 08:37 | HHI.CCPN ---
Subjective Remarks/Hospital Course 56-year-old morbidly obese female brought in the emergency department in respiratory distress. She was intubated by ER attending. She has been sick for about a week with symptoms consistent with UTI. She's had fevers and chills. She's been short of breath. She's had fatigue. She has had a cough and chest pain with coughing. The family reports that she's been delirious for the last 3 days. 08/15 Patient is sedated with Diprivan, Versed, Fentanyl and intubated. CTA chest showed no PE multifocal consolidation greatest in RLL. Tmax 100.6 08/16 Patient is sedated with Diprivan and Fentanyl. Afebrile. CXR this morning showed increase consolidation. 08/17 Patient remains sedated and intubated. T:100.4 On PRVC/AC RR 18, Tv 500, IT :1.0 PEEP:10, FIO2 75% 08/18 Remains sedated and intubated. Afebrile. CXR this morning unchanged bibasilar infiltrates and effusions. 08/19 Patient was placed on rotoprone bed last night for proning sedated with Diprivan, Versed and Fentnayl in addition she is on Nimbex. On PRVC/AC RR 20, TV 400, IT:1.1, PEEP:14 and FIO2 80%. Afebrile. 08/20 Patient remains sedated and intubated. Remains on PRVC/AC mode with improvements in her oxygenation on FIO2 50% from 80% yesterday and PEEP:12. 08/21 Patient remains sedated and intubated. On PRVC/AC mode with RR 20, TV 400, IT:1.1, PEEP: 12 and FIO2 50%. Afebrile. 08/22 No acute events overnight. Remains sedated, intubated and on Nimbex.. T: 99.8. On PRVC mode with PEP: 12, FIO2 50%. CXR from yesterday showed better aeration, RLL infiltrate unchanged. 08/23 Chest x-ray worsening. Methylprednisolone taper to twice a day by pulmonary. The patient's FiO2 was found to be 100% this a.m., will continue to wean. 08/24: 1 desat episode yesterday when supine. still remains prone now. no vasopressors. sedated and paralyzed. 08/25: flolan added yesterday. fio2 down to 60%. remained supine all night. still on neuromuscular blockade. net -500cc/24h. 08/26: good diuresis. remained supine. fio2 70%. weaning flolan. remains with significant respiratory support and high peep despite 6L diuresis overnight. Cr still stable. 08/27: continues with good diuresis. net negative 3L/24h. fio2 down to 55%. flolan off. still high peep. not ready for SBT. more agitated today. Cr remains stable despite aggressive diuresis. 08/28: diuresis continues. -3.3L/24h. spiked fever overnight with a jump in wbc to 16 this AM. fio2 60%, but her pulmonary improvements have plateaued at this point. still on peep 12. 08/29: net -1.7L/24h. Cr starting to rise. still spiking fevers despite vanc/ cefepime added yesterday. wbc continues to rise. clinically appears infected, although unclear source. peep 10, fio2 60%. will likely need trach. 08/30: net +800cc, but Cr downtrending. appears clinically euvolemic. fever curve downtrending. wbc downtrending. on 40% fio2, peep 8 today. still following commands. 08/31: failed SBT after only 45 minutes yesterday. intubated for > 2 weeks at this point. will attempt to pursue trach/peg today. will continue with pulmonary strengthening. daily SBTs. 09/01 CXR showing increasing bibasilar infiltrate. Failed C Pap trial in 5 minutes due to severe tachypnea. PEG tube today. Family has not decided on trach yet 09/02: Patient febrile to 101.1, CXR increased infiltrate Tmax Tmax 101.1. Currently 9.7 left upper lung and right lower lobe. Pancultured. Cefepime added today and one dose of vancomycin. Continues to fail C Pap trial due to tachypnea and respiratory distress 09/03: Remains hypoxemic on 75% oxygen with new pneumonia. Sputum culture 09/02/16 with GNR. Family agreeable for tracheostomy but patient is not stable at this point for trach 09/04: still on 70% fio2. still hypoxic. pneumonia persists. needs trach, but too unstable at this point. 09/05: remains on 75% fio2. pseudomonas sensitivities came back resistant to carbapenems, intermediate to levaquin. still spiking fevers. not clinically improving. wbc remains elevated. 09/06: Remains on 12 of PEEP and FiO2 75%. Zosyn and tobramycin started yesterday. WBC count trending down today 11.5 from 13.1. Remains heavily sedated for ventilator synchrony. MAXIMUM TEMPERATURE 100.3 09/07: Continues to spike fever. CXR unchanged. WBC count improving. PEEP 14. FiO2 60%. Will start IV Bumex 1mg IV q12 09/09: Tolerating tube feeds at goal. Afebrile. No documented bowel movement. Currently sedated on the ventilator 09/10: Tmax 99.7. Currently 99.4. No bowel movement yesterday. None document since 09/04. Arousable on the ventilator 09/11: Tmax 102.6. Currently 100. Positive BM. Arousable on the ventilator. Tolerating tube feeds. Central line changed yesterday. Plan for bronchoscopy at 1 PM. 09/12: Tmax 100.1. Currently afebrile. Follows commands today. Wiggles toes and give thumbs up appropriately. MRI brain canceled. Tolerating tube feeding with positive BM. Tracheostomy currently planned for . 09/13: Tmax 102. Again on sedation vacation falls commands by wiggling toes bilaterally and giving thumbs up bilaterally appropriate. Tolerating tube feeding with positive BM. Tracheostomy planned for tomorrow with Dr. Ortega. 09/14: Low grade fever. CXR showing more prominent infiltrate on the right lower lobe and left upper lobe. WBC trending up still in normal range. Patient is on 40% FiO2 but continues to fail CPAP due to tachypnea 09/15: Remains intubated sedated, unable to wean off the vent. Plan for tracheostomy today with Dr. Ortega. Continues to have low grade fever. CXR with persistent bibasilar infiltrates 09/16: Tmax 101.1. Currently 100.7. Awake and alert. Following commands. 09/17: Afebrile. Currently on PSV trial. Tolerating tube feeds. One bowel movement. Noted decreased urine output past 48 hours. Diuretics have been discontinued. This a.m. creatinine currently pending. 09/18: Afebrile. Adequate urine output yesterday but decreased 150 past 8 hours. Tolerating tube feeds. One bowel movement. Not tolerating PSV trials today. 09/19: Tmax 100.5. Urine output picking up. Tolerating tube feeds. No bowel movement 48 hours. Not tolerating PSV trials. 09/20: Diffuse drug morbilliform exanthem noted this a.m. Tmax 100.6. Urine output around 20 cc an hour. Not tolerating PSV trials. Possibly new right pleural effusion noted on chest x-ray. Will need hemodialysis 09/21: Tmax 100.6 currently 98.7. -4 L with hemodialysis yesterday and today. FiO2 to 60%. Tolerating tube feeds. Positive BM. Still requiring sedation 09/22: Afebrile. Tolerating tube feeds. Positive BM. 30 g per kilogram per minute of propofol. Tolerated PSV trials 3 hours today 09/23 HD today with 3.5 L removal. Tolerating CPAP for 8 hours, currently 45% with RSBI 45%. 09/24 Called by RN this morning for concern for bloody BMs. Placed heparin and warfarin on hold. Serial Hgb ordered. Hgb 9.3 -->8.6 and hemodynamically unchanged. Started on protonix drip. Heme stool is negative and now RN states she is concerned about the adequacy of specimen, so sending repeat. Had asked GI to see, however further workup will not be indicated if hemoccult is negative. Tolerating PSV 05/06 09/25: heparin restarted. hemocult negative x 2. 09/26: no changes. still failing cpap trials. 09/27: Tmax 101.5. Currently 99.5. Resting on Diprivan drip at 25 mcg/kg/m. Currently tolerating tube feeding.. One bowel movement. 09/28: Hemoglobin trending downward. Transfusing 1 unit PRBCs with hemodialysis today. Currently afebrile. Appears comfortable ventilator 2 bowel movements 09/29 No events overnight. Sedated with Diprivan and on ventilator via trach. T: 99.9 For Perma Cath placement today. s/p HD yesterday with removal 4L and transfusion 1unit PRBC with HD. 09/30: Tmax 100.8. No events overnight. No bowel movement. Tolerating tube feeds. Subjective 10/01: Tmax 101.3. Currently resting in bed in no acute distress. Tolerating tube feeds. Chest x-ray revealed atelectasis. -5 L with hemodialysis yesterday. 10/02 Patient remains on ventilator via trach on PRVC/AC with PEEP: 10 and FIO2 50 %. T: 102.1 at 4 am. Objective Vital Signs Date Time Temp Pulse Resp B/P Pulse Ox O2 Delivery O2 Flow Rate FiO2 10/02/16 06:00 88 10/02/16 04:25 95 50 10/02/16 04:15 99.4 10/02/16 04:00 18 96/52 Intake and Output 10/01/16 10/01/16 10/02/16 08:00 16:00 00:00 Intake Total 614 ml 846 ml 693 ml Output Total 65 ml 50 ml 25 ml Balance 549 ml 796 ml 668 ml Result Diagram: 10/02/16 0425 10/02/16 0425 Other Results Laboratory Tests Test 10/01/16 10/01/16 10/02/16 15:40 23:07 04:25 Activated Partial 34.9 SEC 46.6 SEC 41.3 SEC Thromboplast Time White Blood Count 13.9 TH/MM3 Red Blood Count 2.82 MIL/MM3 Hemoglobin 7.9 GM/DL Hematocrit 23.7 % Mean Corpuscular Volume 83.9 FL Mean Corpuscular Hemoglobin 28.1 PG Mean Corpuscular Hemoglobin 33.5 % Concent Red Cell Distribution Width 17.9 % Platelet Count 266 TH/MM3 Mean Platelet Volume 7.2 FL Prothrombin Time 10.7 SEC Prothromb Time International 1.0 RATIO Ratio Sodium Level 129 MEQ/L Potassium Level 3.8 MEQ/L Chloride Level 86 MEQ/L Carbon Dioxide Level 26.8 MEQ/L Anion Gap 16 MEQ/L Blood Urea Nitrogen 51 MG/DL Creatinine 3.66 MG/DL Estimat Glomerular Filtration 13 ML/MIN Rate Random Glucose 100 MG/DL Calcium Level 8.4 MG/DL Phosphorus Level 4.0 MG/DL Magnesium Level 2.2 MG/DL Imaging Last Impressions Chest X-Ray 10/01/16 0000 Signed Impressions: Service Date/Time: Saturday, October 01, 2016 10:04 - CONCLUSION: 1. Streaky opacity at the lung bases most consistent with atelectasis. 2. Suboptimal exam with no confluent infiltrates. Scotty Huynh MD Catheter Placement X-Ray 09/29/16 1223 Signed Impressions: Service Date/Time: Thursday, September 29, 2016 12:31 - CONCLUSION: Vas-Cath to PermCath exchange as detailed above. Taco Haas Jr., MD Renal Ultrasound 09/17/16 0000 Signed Impressions: Service Date/Time: Saturday, September 17, 2016 13:31 - CONCLUSION: Negative renal sonogram. Taco Davidson MD Upper Extremity Ultrasound 09/14/16 0000 Signed Impressions: Service Date/Time: August 08:32 - CONCLUSION: There is thrombus within the left subclavian and internal jugular veins. Danyel Escalante MD Lower Extremity Ultrasound 09/13/16 0000 Signed Impressions: Service Date/Time: Tuesday, September 13, 2016 22:33 - CONCLUSION: Normal examination. Leonides Mason MD Liver Ultrasound 09/08/16 0000 Signed Impressions: Service Date/Time: Thursday, September 08, 2016 08:45 - CONCLUSION: 1. Cholelithiasis with distended gallbladder. However, there are no associated findings present to diagnose acute cholecystitis. If there is persistent clinical concern for acute cholecystitis could evaluate for cystic duct obstruction with hepatobiliary scintigraphy. 2. Hepatomegaly with very heterogeneous echotexture and steatosis. Dejan Allison MD Gall Bladder Ultrasound 08/29/16 0000 Signed Impressions: Service Date/Time: Monday, August 29, 2016 15:21 - CONCLUSION: 1. Hepatomegaly with heterogeneous echotexture throughout the liver. 2. There is a large echogenic area near the neck of the gallbladder suggestive of a stone, but despite its large size, demonstrates no acoustic shadowing in any of the views. Taco Davidson MD CT Angiography 08/15/16 0000 Signed Impressions: Service Date/Time: Monday, August 15, 2016 02:33 - CONCLUSION: 1. No evidence for pulmonary embolism. 2. Multifocal consolidation greatest in the right lower lobe and associated adenopathy. Terry Estrada MD Objective Remarks GENERAL: 56 yo female currently resting in bed mechanically ventilated SKIN: Warm and dry. Skin is flaky. Rash is resolved. Noted stage I to 2 decubitus ulcer\coccyx and back covered with Mepilex HEAD: Normocephalic. EYES: No scleral icterus. No injection or drainage. NECK: Neck is obese. Right subclavian hemodialysis catheters clean dry and intact. Tracheostomy is clean dry and intact CARDIOVASCULAR: RRR. S1, S2 no S4 . No murmur RESPIRATORY: Diminished breath sounds throughout due to body habitus GASTROINTESTINAL: Abdomen obese, soft, non-tender, hypoactive active bowel sounds. G-tube is clean dry and intact MUSCULOSKELETAL: Crinkling of bilateral lower extremities. 1+ edema BUE. Neuro: Awake, makes eye contact and nods to questions. Currently following commands moving upper and lower extremity spontaneously. A/P Problem List: (1) ARDS (adult respiratory distress syndrome) ICD Code: J80 Status: Acute (2) CHF (congestive heart failure) ICD Code: I50.9 Status: Acute (3) Respiratory failure ICD Code: J96.90 Status: Acute (4) Pneumonia ICD Code: J18.9 Status: Acute Assessment and Plan Neuro/Psych: Acute toxic metabolic encephalopathy Agitated delirium On Diprivan infusion for sedation, daily sedation vacation. Fentanyl allergy On Seroquel d/c Oxycodone EEG 09/09 moderate to severe encephalopathy Pulm: Acute hypercapnic and hypoxemic respiratory failure ARDS Pneumonia community-acquired, now with HCAP with carbapenem-resistant pseudomonas Probable JOE PRVC 18/650/1.08/04/49, decrease FIO2 40% as tiki Ventilator bundle, check ABG CXR 10/01: Atelectasis. Suboptimal exam with no confluent infiltrates. Bronchodilator therapy every 4 hours and as needed Pulm has followed- Dr. Beck Gen surgery Dr. Ortega s/p s tracheostomy 09/15 Pulm toilet, trach care CV: Hypertension Dyslipidemia Elevated troponin - likely strain Metoprolol 12.5 mg by mouth 3 times a day Echo 08/14 showed EF 65-70% mild AR/TR On Pravachol 20 mg a night for dyslipidemia Renal/: Acute kidney injury - requiring hemodialysis Dr. Tan -nephrology following. Hemodialysis Sunday//Sunday MIKE: ATN from sepsis syndrome and diminished renal perfusion ; also aminoglycoside induced nephrotoxicity likely also contributing; possibly AIN -> per nephrology note Urine eosinophils negative. Renal ultrasound revealed no hydronephrosis Monitor renal function, I/O's, avoid nephrotoxins On Bumex 2mg IV BID nephrology HD 09/30 with planned removal 5L. GI: Elevated transaminases Cholelithiasis US liver: Fatty liver and cholelithiasis. Repeat 09/08 revealed cholelithiasis with no acute signs of cholecystitis. Recommend a HIDA scan if indicated On TF Nepro's 45 cc an hour and beneprotein 2 packs 3 times a day s/p PEG placement 09/01/[address] Stone Mac/Winston LopesaLAMulugeta for bowel regimen. Pepcid 20 mg liquid daily GI prophylaxis ID: Pseudomonas pneumonia Funguria, Maribell glabrata and parapsilosis. Will panculture ( Blood cx x 2 sets, sputum, replace Miller and send UA) Reconsult ID, place on Cefepime and give 1 dose of Vanco Pertinent cultures blood and sputum cx 08/15- NG strep pneumonia and Legionella urinary Ag negative Blood cultures 08/28: NGTD C Diff negative 08/28. Lines changed 08/28. Sputum 08/30 - Pseudomonas Sputum 09/02 PSAE, resistant to carbapenem, intermediate to Levaquin. 09/07 - urine -Maribell Guilliermondii 09/07 - blood cultures 2 - no growth 09/09 - urine -strep viridans, Maribell parapsilosis 09/10 - blood cultures 2 -no growth 09/11 - broch washings -no growth to date 09/12 - urine -Maribell glabrata and parapsilosis 09/16 - blood cultures 2 - pending 09/16 - sputum -no growth 09/16 - urine -Maribell glabrata and parapsilosis Zosyn previously discontinued secondary to rash Heme: Normocytic anemia Left IJ/subclavian nonocclusive thrombus Peripheral smear with leukoerythroblastosis - likely reactive Monitor CBC, s/p transfusion 1unit PRBC with HD 09/29 On heparin drip bridging to therapeutic INR with Warfarin. Monitor PTT/INR Endo: Diabetes mellitus Hypothyroidism on SSI (medium scale) for glycemic control On Synthroid 200mcg daily. TSH 1.37 GI prophylaxis-Protonix 40mg Q12 DVT - Heparin gtt - Continue , SCDs Lines: Peripheral IV. - PEG 09/01/16 - Trach 09/15 -Right Permacath placed 09/29 Critical Care: The total critical care time was 30 minutes. Time to perform other separately billable procedures was not included in the critical care time. Loree Marinelli, daughter (HCP): [phone] Rony Marinelli, significant other: [phone] Problem Qualifiers (1) CHF (congestive heart failure): Qualified Code: I50.9 - Acute congestive heart failure, unspecified congestive heart failure type (2) Respiratory failure: Qualified Code: J96.02 - Acute respiratory failure with hypercapnia (3) Pneumonia: Qualified Code: J18.9 - Pneumonia of both lungs due to infectious organism, unspecified part of lung Ute Santamaria MD October 02, 2016 08:37
[2016-10-02] MEDS ORDERED: VANCOMYCIN INJ 1,000 MG in SODIUM CHLOR 0.9% 250 ML INJ 250 ML IV ONE (09:00)
[2016-10-02] MEDS ORDERED: CEFEPIME INJ 1,000 MG in SODIUM CHLORIDE 0.9% INJ 100 ML IV SCH (10:00)
--- NOTE | 2016-10-02 10:26 | HHI.NPPN ---
Subjective General Problems: Edema, Hypotension, Obesity Renal Failure: Acute Interval History Remains oligoanuric. On vent via trach, 50% Fi02, PEEP 18. Eyes open and locates /tracks to voice but does not follow commands. She is off sedation. Febrile. ( Genny Lowery) Review of Systems General Constitutional: Fever General Remarks unable to evaluate (Genny Lowery) Objective Data Data 10/01/16 10/02/16 18:59 06:59 Intake Total 846 ml 1295 ml Output Total 50 ml 40 ml Balance 796 ml 1255 ml Intake Oral 0 ml IV Total 324 ml 541 ml Tube Feeding 372 ml 634 ml Tube Irrigant 150 ml 120 ml Output Urine Total 50 ml 40 ml # Bowel Movements 1 Vital Signs Date Time Temp Pulse Resp B/P Pulse Ox O2 Delivery O2 Flow Rate FiO2 10/02/16 08:20 95 50 10/02/16 06:00 88 10/02/16 04:25 95 50 10/02/16 04:15 99.4 10/02/16 04:00 50 10/02/16 04:00 102.1 80 18 96/52 94 10/02/16 04:00 80 10/02/16 02:00 84 10/02/16 01:31 94 50 10/02/16 00:00 83 10/02/16 00:00 50 10/02/16 00:00 99.9 83 18 98/51 93 10/01/16 22:00 84 10/01/16 21:04 100 50 10/01/16 20:00 50 10/01/16 20:00 99.8 80 20 92/51 98 10/01/16 20:00 80 10/01/16 18:00 81 10/01/16 16:05 95 50 10/01/16 16:00 40 10/01/16 16:00 101.0 86 20 95/55 93 10/01/16 16:00 82 10/01/16 14:00 89 10/01/16 13:10 94 50 10/01/16 12:00 86 10/01/16 12:00 40 10/01/16 12:00 101.3 86 20 95/55 93 10/01/16 11:05 94 50 (Genny Lowery) -: 10/02/16 0425 10/02/16 0425 Microbiology 10/02/16 Gram Stain, Received Pending 10/02/16 Sputum Culture, Received Pending 10/02/16 Aerobic Blood Culture, Received Pending 10/02/16 Anaerobic Blood Culture, Received Pending 10/02/16 Aerobic Blood Culture, Received Pending 10/02/16 Anaerobic Blood Culture, Received Pending Imaging Last 72 hours Impressions Chest X-Ray 10/01/16 0000 Signed Impressions: Service Date/Time: Saturday, October 01, 2016 10:04 - CONCLUSION: 1. Streaky opacity at the lung bases most consistent with atelectasis. 2. Suboptimal exam with no confluent infiltrates. Scotty Huynh MD Catheter Placement X-Ray 09/29/16 1223 Signed Impressions: Service Date/Time: Thursday, September 29, 2016 12:31 - CONCLUSION: Vas-Cath to PermCath exchange as detailed above. Taco Haas Jr., MD Tubes & Lines: Miller Tubes & Lines Comment trach, PEG Drip Comment heparin, propofol on hold (Genny Lowery) Physical Exam General Appearance: No Acute Distress, Comfortable, Obese Appearance Remarks eyes open with blank stare, tracks with eyes (Genny Lowery) Throat Throat Exam: Oral Mucosa [place] & Moist Throat Remarks increased secretions (Genny Lowery) Neck Neck Exam: Neck Supple Neck Remarks trach (Genny Lowery) Pulmonary Resp Exam: Rhonchi, Sputum, Diminished Breath Sounds Resp Remarks vented lung sounds clear in upper palafox (Genny Lowery) Cardiology CV Exam: Regular, Normal Sinus Rhythm (Genny Lowery) Gastrointestinal/Abdomen GI Exam: Soft, Bowel Sounds Present, Distended GI Remarks morbidly obese, + PEG infusing (Genny Lowery) Musculoskeletal MS Exam: Joints Intact (Genny Lowery) Integumentary Skin Exam: Warm, Dry Skin Remarks flaking/peeling skin (Genny Lowery) Extremeties Extremities Exam: Moderate Edema, Pitting Edema, Dependent Edema (Genny Lowery) Neurologic Neuro Exam: Awake Neuro Remarks awake but unresponsive (Genny Lowery) VTE Prophylaxis Device: SCDs Meds: Heparin (Genny Lowery) Assessment/Plan Assessment Summary: MIKE/Acute Renal Failure, Acute Tubular Necrosis, Fluid/ Volume Overload, Hypotension Electrolyte Assessment: Hyponatremia Problem List: (1) Acute kidney injury Plan: In a pt with normal renal function at baseline MIKE: ATN from sepsis syndrome and diminished renal perfusion; also aminoglycoside induced nephrotoxicity likely also contributing; possibly AIN HD initiated 09/20; currently on TTS schedule s/p permcath placement remains oligoanuric, due for dialysis tomorrow not on pressors or IVF; on Nepro tube feeding , avoid free water flushes due to hyponatremia continue PhosLo for hyperphosphatemia continue Bumex BID IV Avoid nephrotoxic agents. await signs of renal recovery Continue supportive care. (2) ARDS (adult respiratory distress syndrome) Plan: s/p trach placement continue Ventilator support: PSV Fi02 50%, PEEP 18 [employer] managing. [place] when able (3) Anemia Plan: Hb low but improved, had recent stool for occult bleeding test negative x 2 on heparin and protonix GI following, transfuse PRN; given 1 unit 5/4 follow Hb (4) Pneumonia Plan: has had Pseudomonas in the sputum. ID had signed off but she has developed fevers therefore they were reconsulted given a dose of cefepime and vancomycin (5) Hypothyroidism Plan: on synthroid (6) Morbid obesity (7) DVT (deep venous thrombosis) Plan: in IJ after central line placement (provoked) on heparin bridge to Coumadin , follow INR (Genny Lowery) Plan patient was seen and examined. Urine output has dropped. Febrile. ID consulted. Prognosis is guarded. We will continue dialysis support. (Anshu Tan MD) Problem Qualifiers (1) Pneumonia: Qualified Code: J18.9 - Pneumonia of both lungs due to infectious organism, unspecified part of lung Genny Lowery October 02, 2016 10:26 Anshu Tan MD October 02, 2016 16:26
[2016-10-02] MEDS: PANTOPRAZOLE SODIUM 40 MG VIAL IV PUSH SCH ×2 (11:53→23:14)
[2016-10-02 12:29] LABS: BLOOD GAS BASE EXCESS -0.4 mmol/L (-2-2); BLOOD GAS CARBOXYHEMOGLOBIN 1.7 % (0-4); BLOOD GAS HCO3 24 mmol/L (22-26); BLOOD GAS METHEMOGLOBIN 1.8 % (0-2); BLOOD GAS O2 HGB SATURATION 93 % (90-100); BLOOD GAS OXYGEN CONTENT 11.3 Vol % (12.0-20.0); BLOOD GAS PCO2 39 mmHg (38-42); BLOOD GAS PO2 82 mmHg (61-120); BLOOD GAS TOTAL HGB 8.5 G/DL (12.0-16.0); CRITICAL VALUE NO; OXYGEN DEVICE VENTILATOR; TEMP CORR TO 98.6
[2016-10-02 12:30] LABS: DRAW SITE RT RADIAL; FIO2 50 %; NUMBER OF ARTERIAL PUNCTURES 1; ULNAR PULSE PRESENT
[2016-10-02 12:31] LABS: STAT NO
--- NOTE | 2016-10-02 15:07 | HHI.IDPN ---
Subjective Subjective Remarks Patient is admitted to ICU with respiratory failure, CHF, pneumonia, probable underlying COPD. Patient was intubated and placed on mechanical ventilation. NOt weaning and had trach done 09/15. Has been having fevers. s/p Rx for PSAE PNA and C glabrat UTI Chart reviewed since last seen by me. ID reconsulted for persistent high grade fevers with leucocytosis. Oliguric, Now on HD Tues, Thurs, Sat. Remains on vent. Secretions thick, yellow, moderate. Not on pressors. On Tube feeds, tolerating. PEG tube site ok. No diarrhea Has clot in her LUE, on heparin Antibiotics Cefepime IV Linezolid IV tobramycin nebs Lines Line sites with no e.o infection. Past Medical History reviewed. Allergies: Coded Allergies: Fentanyl (Verified Adverse Reaction, Severe, rash, 09/21/16) Objective . Vital Signs Date Time Temp Pulse Resp B/P Pulse Ox O2 Delivery O2 Flow Rate FiO2 10/02/16 12:39 92 50 10/02/16 12:00 101.4 105 21 128/76 93 10/02/16 12:00 105 10/02/16 12:00 50 10/02/16 10:00 100 10/02/16 09:03 20 10/02/16 09:03 20 10/02/16 08:20 95 50 10/02/16 08:00 101.5 98 20 113/59 95 10/02/16 08:00 98 10/02/16 08:00 50 10/02/16 06:00 88 10/02/16 04:25 95 50 10/02/16 04:15 99.4 10/02/16 04:00 50 10/02/16 04:00 102.1 80 18 96/52 94 10/02/16 04:00 80 10/02/16 02:00 84 10/02/16 01:31 94 50 10/02/16 00:00 83 10/02/16 00:00 50 10/02/16 00:00 99.9 83 18 98/51 93 10/01/16 22:00 84 10/01/16 21:04 100 50 10/01/16 20:00 50 10/01/16 20:00 99.8 80 20 92/51 98 10/01/16 20:00 80 10/01/16 18:00 81 10/01/16 16:05 95 50 10/01/16 16:00 40 10/01/16 16:00 101.0 86 20 95/55 93 10/01/16 16:00 82 10/01/16 10/01/16 10/02/16 15:00 23:00 07:00 Intake Total 846 ml 693 ml 602 ml Output Total 50 ml 25 ml 15 ml Balance 796 ml 668 ml 587 ml Intake Oral 0 ml 0 ml IV Total 324 ml 311 ml 230 ml Tube Feeding 372 ml 322 ml 312 ml Tube Irrigant 150 ml 60 ml 60 ml Output Urine Total 50 ml 25 ml 15 ml # Bowel Movements 1 0 . Laboratory Tests Test 10/01/16 10/02/16 02:39 04:25 White Blood Count 14.9 TH/MM3 13.9 TH/MM3 Red Blood Count 3.20 MIL/MM3 2.82 MIL/MM3 Hemoglobin 8.8 GM/DL 7.9 GM/DL Hematocrit 26.9 % 23.7 % Mean Corpuscular Volume 84.0 FL 83.9 FL Mean Corpuscular Hemoglobin 27.5 PG 28.1 PG Mean Corpuscular Hemoglobin 32.8 % 33.5 % Concent Red Cell Distribution Width 17.9 % 17.9 % Platelet Count 269 TH/MM3 266 TH/MM3 Mean Platelet Volume 7.7 FL 7.2 FL Laboratory Tests Test 10/01/16 10/02/16 02:39 04:25 Sodium Level 133 MEQ/L 129 MEQ/L Potassium Level 3.6 MEQ/L 3.8 MEQ/L Chloride Level 93 MEQ/L 86 MEQ/L Carbon Dioxide Level 26.9 MEQ/L 26.8 MEQ/L Anion Gap 13 MEQ/L 16 MEQ/L Blood Urea Nitrogen 36 MG/DL 51 MG/DL Creatinine 2.65 MG/DL 3.66 MG/DL Estimat Glomerular Filtration 19 ML/MIN 13 ML/MIN Rate Random Glucose 112 MG/DL 100 MG/DL Calcium Level 8.9 MG/DL 8.4 MG/DL Phosphorus Level 4.0 MG/DL Magnesium Level 2.2 MG/DL Microbiology Date/Time Procedure Status Source Growth 10/02/16 08:30 Gram Stain Received Sputum Endotracheal Pending 10/02/16 08:30 Sputum Culture Received Sputum Endotracheal Pending 10/02/16 09:39 Aerobic Blood Culture Received Blood Peripheral Pending 10/02/16 09:39 Anaerobic Blood Culture Received Blood Peripheral Pending 10/02/16 09:47 Aerobic Blood Culture Received Blood Peripheral Pending 10/02/16 09:47 Anaerobic Blood Culture Received Blood Peripheral Pending Imaging Chest X-Ray 09/15/16 0600 Signed Impressions: Service Date/Time: Thursday, September 15, 2016 03:52 - CONCLUSION: Persistent and unchanged bibasilar infiltrates. Taco Haas Jr., MD Chest X-Ray 09/15/16 0000 Signed Impressions: Service Date/Time: Thursday, September 15, 2016 11:00 - CONCLUSION: Placement of tracheostomy tube otherwise not changed. Danyel Escalante MD Liver Ultrasound 09/08/16 0000 Signed Impressions: Service Date/Time: Thursday, September 08, 2016 08:45 - CONCLUSION: 1. Cholelithiasis with distended gallbladder. However, there are no associated findings present to diagnose acute cholecystitis. If there is persistent clinical concern for acute cholecystitis could evaluate for cystic duct obstruction with hepatobiliary scintigraphy. 2. Hepatomegaly with very heterogeneous echotexture and steatosis. Dejan Allison MD Chest X-Ray 09/06/16 0000 Signed Impressions: Service Date/Time: Tuesday, September 06, 2016 11:09 - CONCLUSION: No significant change has occurred. Terry Estrada MD Gall Bladder Ultrasound 08/29/16 0000 Signed Impressions: Service Date/Time: Monday, August 29, 2016 15:21 - CONCLUSION: 1. Hepatomegaly with heterogeneous echotexture throughout the liver. 2. There is a large echogenic area near the neck of the gallbladder suggestive of a stone, but despite its large size, demonstrates no acoustic shadowing in any of the views. Taco Davidson MD CT Angiography 08/15/16 0000 Signed Impressions: Service Date/Time: Monday, August 15, 2016 02:33 - CONCLUSION: 1. No evidence for pulmonary embolism. 2. Multifocal consolidation greatest in the right lower lobe and associated adenopathy. Terry Estrada MD Physical Exam GENERAL: Morbidly obese CF patient, awake, NAD, on the vent SKIN: Has patches of redness on her trunk, and some papules in extremities HEAD: Atraumatic. Normocephalic. No temporal or scalp tenderness. EYES: Pupils equal round and reactive. No scleral icterus. Moist mucosa ENT: No nasal discharge. Dry oral mucosa NECK: Large neck. Supple. Trach in place CARDIOVASCULAR: Regular rate and rhythm RESPIRATORY: Clear to auscultation. Breath sounds equal bilaterally. GASTROINTESTINAL: Abdomen soft, obese, non-tender, nondistended. MUSCULOSKELETAL: Extremities without clubbing, cyanosis. Edema (+) NEUROLOGICAL: eyes open, did not track of focus PIV with no evidence of infection Miller in place with clear urine. Assessment & Plan Remarks Sepsis present on admission. Possible HCAP. Possible CLABSI. Morbid Obesity (BMI 45.8 kg/m2) Obstructive Sleep Apnea (supposed to be on CPAP at home and home oxygen 2L) Acute respiratory failure vent dependent. Acute metabolic encephalopathy: infection, meds. Thrombosis of cephalic vein. Renal insufficiency, now on HD Recs: Changed Cefepime IV dose for Hemodialysis. Start Zyvox IV (would like to avoid nephrotoxins, cannot give Dapto IV) Start Moses nebs. Monitor off Abx Monitor renal function - creatinine still rising, but UO has improved Weaning per CCM Monitor progress Follow oscar D/W Terri Basilio MD October 02, 2016 15:07 D/W Terri Basilio MD October 02, 2016 15:07
[2016-10-02 15:32] LABS: BACTERIA, URINE MANY /hpf; BLOOD, URINE MOD (NEG); GLUCOSE,URINE NEG (NEG); KETONE, URINE NEG (NEG); NITRITE,URINE NEG (NEG); RENAL EPITHELIAL CELLS 8 /hpf; SQUAMOUS EPITHELIAL CELL URINE 1 /hpf (0-5)
[2016-10-02 15:33] LABS: COMMENT (UR) CATH-CULTURE IND; CULTURE IF INDICATED CATH CULTURE IND; URINE COLOR LIGHT-RED (YELLW/STRAW)
[2016-10-02] MEDS ORDERED: WARFARIN SOD 2.5 MG TAB PO SCH (16:00)
[2016-10-02] MEDS: LINEZOLID 600 MG PREMIX 300 ML IV SCH (18:16)
[2016-10-02] MEDS: WARFARIN SOD 2.5 MG TAB PO SCH (18:16)
--- NOTE | 2016-10-02 19:14 | HHI.PR ---
Subjective Remarks Awake and on vent support , FIO2 at 50 %. Was dialyzed. No fever. Objective Vital Signs Date Time Temp Pulse Resp B/P Pulse Ox O2 Delivery O2 Flow Rate FiO2 10/02/16 16:24 94 50 10/02/16 16:00 83 10/02/16 16:00 100.8 83 22 114/64 94 10/02/16 16:00 50 10/02/16 15:26 19 10/02/16 12:39 92 50 10/02/16 12:00 101.4 105 21 128/76 93 10/02/16 12:00 105 10/02/16 12:00 50 10/02/16 10:00 100 10/02/16 09:03 20 10/02/16 08:20 95 50 10/02/16 08:00 101.5 98 20 113/59 95 10/02/16 08:00 98 10/02/16 08:00 50 10/02/16 06:00 88 10/02/16 04:25 95 50 10/02/16 04:15 99.4 10/02/16 04:00 50 10/02/16 04:00 102.1 80 18 96/52 94 10/02/16 04:00 80 10/02/16 02:00 84 10/02/16 01:31 94 50 10/02/16 00:00 83 10/02/16 00:00 50 10/02/16 00:00 99.9 83 18 98/51 93 10/01/16 22:00 84 10/01/16 21:04 100 50 10/01/16 20:00 50 10/01/16 20:00 99.8 80 20 92/51 98 10/01/16 20:00 80 I/O 10/01/16 10/01/16 10/01/16 10/02/16 10/02/16 10/02/16 06:59 14:59 22:59 06:59 14:59 22:59 Intake Total 614 ml 846 ml 693 ml 602 ml 944 ml Output Total 65 ml 50 ml 25 ml 15 ml 65 ml Balance 549 ml 796 ml 668 ml 587 ml 879 ml Intake Oral 0 ml 0 ml 0 ml IV Total 282 ml 324 ml 311 ml 230 ml 502 ml Tube Feeding 272 ml 372 ml 322 ml 312 ml 322 ml Tube Irrigant 60 ml 150 ml 60 ml 60 ml 120 ml Output Urine Total 65 ml 50 ml 25 ml 15 ml 65 ml # Bowel Movements 1 1 0 0 Result Diagram: 10/02/165 10/02/16424 Objective Remarks This is an obese middle-aged white female who is lethargic. HEENT: Head normocephalic. Pupils react. Neck: No bruits, no thyroid enlargement, no lymphadenopathy. Chest: Decreased breath sounds. Bilateral Wheezes.Few basal crackles. Heart: Heart sounds were regular. S1-S2 no murmur, no S3. Abdomen: Soft, benign. No masses, or tenderness. Bowel sounds are active. Extremities: 1 + edema . Neuro :Moves feet. Awake . Assessment and Plan Assessment and Plan IMPRESSION 1. Acute hypercapnic respiratory failure. 2. Pulmonary edema. 3. Drug rash 4. Obstructive sleep apnea syndrome 5. Hypertension 6. Hypothyroidism. 7. MIKE Plan : 1. Cont weaning vent and Increase PEEP to 10, FIO2 45 % 2. Trach toilet and suctioning. 3. Nebs qid , duoneb. 4. A/C rate 15,and daily CPAP trial 5. Chest X ray in am 6. PT evaluation 7. Tube feeds at 50 CC Abimael Beck MD October 02, 2016 19:14
[2016-10-02] MEDS: PRAVASTATIN SOD 20 MG TAB PO SCH (21:23)
[2016-10-02] MEDS: RESP: TOBRAMYCIN SULFATE 300 MG/5 ML NEB NEB SCH (22:29)
[2016-10-03] VITALS (29 sets, daily range): BP systolic 83–119; BP diastolic 45–64; PULSE 71–96; RESP 20; TEMP 100.2–101.5; O2SAT 92–97
[2016-10-03] MEDS: oxyCODONE HCL ORAL CONC 20 MG/ML SYRINGE G-TUBE SCH ×5 (01:09→21:10)
[2016-10-03] MEDS: RESP: ALBUTEROL 2.5 MG/IPRATROPIUM 0.5 MG NEB (SCH) INH ×4 (03:31→20:50)
[2016-10-03] MEDS: CHLORHEXIDINE GLUCONATE 2 % 1 PACK (2 CLOTHS) TOP SCH (04:00)
[2016-10-03] MEDS: ACETAMINOPHEN 325 MG TAB PO PRN (05:30)
[2016-10-03] MEDS: QUEtiapine FUMARATE 25 MG TAB PO SCH ×3 (05:31→21:10)
[2016-10-03] MEDS: LINEZOLID 600 MG PREMIX 300 ML IV SCH (05:31)
[2016-10-03] MEDS: METOPROLOL TARTRATE 25 MG TAB G-TUBE SCH ×3 (05:31→21:13)
[2016-10-03] MEDS: LEVOTHYROXINE SODIUM 200 MCG TAB PO SCH (05:31)
[2016-10-03] MEDS: METOCLOPRAMIDE HCL 10 MG/2 ML VIAL IV PUSH SCH ×3 (05:32→21:10)
[2016-10-03 05:57] LABS: AUTOMATED NEUTROPHIL # 12.6 TH/MM3 (1.8-7.7); BASOPHIL # 0.2 TH/MM3 (0-0.2); EOSINOPHIL # 1.4 TH/MM3 (0-0.4); EOSINOPHIL % 8.6 % (0.0-4.0); HEMATOCRIT 25.6 % (35.0-46.0); MEAN CELL VOLUME 84.4 FL (80.0-100.0); MEAN CORPUSCULAR HEMOGLOBIN 27.5 PG (27.0-34.0); MEAN CORPUSCULAR HGB CONC 32.6 % (32.0-36.0); MONO % 4.8 % (0.0-8.0); NEUT % 79.6 % (16.0-70.0); PLATELET COUNT 273 TH/MM3 (150-450); RED BLOOD COUNT 3.03 MIL/MM3 (4.00-5.30); RED CELL DISTRIBUTION WIDTH 18.1 % (11.6-17.2); WHITE BLOOD COUNT 15.9 TH/MM3 (4.0-11.0)
[2016-10-03 06:03] LABS: APTT (PATIENT) 41.2 SEC (24.3-30.1); PROTHROMBIN TIME - PATIENT 10.7 SEC (9.8-11.6)
[2016-10-03 06:05] LABS: HEMO FLAGS AUTO DIFF
[2016-10-03 06:30] LABS: BICARBONATE 23.9 MEQ/L (21.0-32.0)
[2016-10-03 07:59] LABS: BANDS 24 % (0-6); EOSINOPHILS 5 % (0-4); METAMYELOCYTES 3 % (0-1); MYELOCYTES 1 % (0-0); POLYS (SEG NEUTROPHILS) 60 % (16-70); WBC DIFF SAMPLE 100
[2016-10-03 08:00] LABS: SCAN/DIFF FINAL DIFF MANUAL
[2016-10-03] MEDS: MICAFUNGIN INJ 150 MG in SODIUM CHLORIDE 0.9% INJ 100 ML IV SCH (08:07)
[2016-10-03] MEDS: DOCUSATE SODIUM 100 MG/10 ML UDC PO SCH ×2 (08:08→21:10)
[2016-10-03] MEDS: BENEPROTEIN POWDER 1 PACK G-TUBE SCH ×3 (08:08→18:00)
[2016-10-03] MEDS: ARTIFICIAL TEARS OPTH SOLN 15 ML BTL EACH EYE SCH ×3 (08:08→18:00)
[2016-10-03] MEDS: SODIUM CHLORIDE 0.9% FLUSH 10 ML FLUSH IV FLUSH SCH ×2 (08:08→21:09)
[2016-10-03] MEDS: SENNOSIDES SYRUP 8.8 MG/5 ML CUP PO SCH ×2 (08:09→21:10)
[2016-10-03] MEDS: POLYETHYLENE GLYCOL 17 GM PKG PO SCH ×2 (08:09→21:10)
[2016-10-03] MEDS: EUCERIN CREAM 120 GM JAR TOPICAL SCH ×2 (08:09→21:11)
[2016-10-03] MEDS: CALCIUM ACETATE 667 MG CAP PO SCH ×3 (08:10→18:00)
[2016-10-03] MEDS: SODIUM CHLORIDE 0.9% FLUSH 10 ML FLUSH IVF SCH (08:10)
[2016-10-03] MEDS: SODIUM CHLOR 0.9% 1000 ML INJ 1,000 ML IV PRN (08:21)
[2016-10-03] MEDS: GENTAMICIN SULFATE (DIALYSIS USE ONLY) 20 MG/2 ML VIAL IV PRN (08:21)
[2016-10-03] MEDS: HEPARIN SODIUM - IV 10,000 UNITS/10 ML VIAL PRN (08:22)
[2016-10-03] MEDS: ALBUMIN HUMAN 25% 25 GM/100 ML BAGP IV PRN (08:22)
[2016-10-03] MEDS: RESP: TOBRAMYCIN SULFATE 300 MG/5 ML NEB NEB SCH ×2 (09:10→21:50)
--- NOTE | 2016-10-03 09:39 | HHI.NPPN ---
Subjective General Problems: Edema, Hypotension, Obesity Renal Failure: Acute Interval History Remains anuric. Seen during bedside dialysis. Febrile overnight. Antibiotics have been started. (Genny Lowery) Review of Systems General Constitutional: Fever General Remarks unable to evaluate (Genny Lowery) Objective Data Data 10/02/16 10/03/16 19:00 07:00 Intake Total 944 ml 1639 ml Output Total 65 ml 20 ml Balance 879 ml 1619 ml Intake Oral 0 ml IV Total 502 ml 918 ml Tube Feeding 322 ml 541 ml Tube Irrigant 120 ml 180 ml Output Urine Total 65 ml 20 ml # Bowel Movements 0 0 Vital Signs Date Time Temp Pulse Resp B/P Pulse Ox O2 Delivery O2 Flow Rate FiO2 10/03/16 08:45 87 83/45 93 10/03/16 08:31 90 86/45 92 10/03/16 08:30 92 92 10/03/16 08:15 93 104/56 94 10/03/16 08:08 97 50 10/03/16 08:00 79 10/03/16 08:00 50 10/03/16 08:00 100.8 85 115/59 95 10/03/16 07:45 75 95 10/03/16 07:30 78 103/51 96 10/03/16 07:15 78 95 10/03/16 07:00 78 91/52 95 10/03/16 06:00 80 10/03/16 04:00 100.2 92 20 119/64 93 10/03/16 04:00 50 10/03/16 04:00 92 10/03/16 03:31 93 50 10/03/16 02:00 88 10/03/16 01:17 94 50 10/03/16 00:00 50 10/03/16 00:00 87 10/03/16 00:00 100.5 85 20 116/60 93 10/02/16 22:30 95 50 10/02/16 22:00 81 10/02/16 20:00 50 10/02/16 20:00 101.2 84 22 106/56 93 10/02/16 20:00 84 10/02/16 18:00 84 10/02/16 16:24 94 50 10/02/16 16:00 83 10/02/16 16:00 100.8 83 22 114/64 94 10/02/16 16:00 50 10/02/16 15:26 19 10/02/16 12:39 92 50 10/02/16 12:00 101.4 105 21 128/76 93 10/02/16 12:00 105 10/02/16 12:00 50 10/02/16 10:00 100 (Genny Lowery) -: 10/03/16 0445 10/03/16 0445 Microbiology 10/02/16 Aerobic Blood Culture, Received Pending 10/02/16 Anaerobic Blood Culture, Received Pending 10/02/16 Aerobic Blood Culture, Received Pending 10/02/16 Anaerobic Blood Culture, Received Pending 10/02/16 Urine Culture, Received Pending Imaging Last 72 hours Impressions Chest X-Ray 10/01/16 0000 Signed Impressions: Service Date/Time: Saturday, October 01, 2016 10:04 - CONCLUSION: 1. Streaky opacity at the lung bases most consistent with atelectasis. 2. Suboptimal exam with no confluent infiltrates. Scotty Huynh MD Tubes & Lines: Perma-Cath Tubes & Lines Comment trach, PEG Drip Comment heparin only (Genny Lowery) Physical Exam General Appearance: No Acute Distress, Comfortable, Obese Appearance Remarks eyes open with blank stare, tracks with eyes (Genny Lowery) Throat Throat Exam: Oral Mucosa [place] & Moist Throat Remarks increased secretions from trach and oropharynx (Genny Lowery) Neck Neck Exam: Neck Supple Neck Remarks trach (Genny Lowery) Pulmonary Resp Exam: Rhonchi, Sputum, Diminished Breath Sounds Resp Remarks vented lung sounds clear in upper [place] (Genny Lowery) Cardiology CV Exam: Regular, Normal Sinus Rhythm, Good Perfusion (Genny Lowery) Gastrointestinal/Abdomen GI Exam: Soft, Bowel Sounds Present, Distended GI Remarks morbidly obese, + PEG infusing (Genny Lowery) Musculoskeletal MS Exam: Joints Intact (Genny Lowery) Integumentary Skin Exam: Warm, Dry Skin Remarks flaking/peeling skin (Genny Lowery) Extremeties Extremities Exam: Moderate Edema, Pitting Edema, Dependent Edema (Genny Lowery) Neurologic Neuro Exam: Awake Neuro Remarks awake but unresponsive (Genny Lowery) VTE Prophylaxis Device: SCDs (Genny Lowery) Assessment/Plan Assessment Summary: MIKE/Acute Renal Failure, Acute Tubular Necrosis, Fluid/ Volume Overload Electrolyte Assessment: Hyponatremia Problem List: (1) Acute kidney injury Plan: In a pt with normal renal function at baseline MIKE: ATN from sepsis syndrome and diminished renal perfusion; also aminoglycoside induced nephrotoxicity likely also contributing; possibly AIN HD initiated 09/20; currently on TTS schedule seen during bedside dialysis on a 3K, 380 BFR, goal 3.5-4.5 or as tolerated s/p PermCath placement remains oliguric, cline removed not on pressors or IVF; continue Nepro tube feeding , avoid free water flushes due to hyponatremia continue PhosLo for hyperphosphatemia continue Bumex BID IV Avoid nephrotoxic agents. await signs of renal recovery Continue supportive care. (2) ARDS (adult respiratory distress syndrome) Plan: s/p trach placement continue Ventilator support: A/C 18/650/50/10 Maintenance Team Leader managing. [place]az when able (3) Anemia Plan: Hb low but improving on heparin and protonix GI following, transfuse PRN; given 1 unit 5/4 follow Hb (4) Pneumonia Plan: has had Pseudomonas in the sputum. ID following, on cefepime, Zyvox, micafungin, and tobra bebs given a dose of cefepime and vancomycin (5) Hypothyroidism Plan: on synthroid (6) Morbid obesity (7) DVT (deep venous thrombosis) Plan: in IJ after central line placement (provoked) on heparin bridge to Coumadin , follow INR (Genny Lowery) Problem List: (1) Acute kidney injury Plan: In a pt with normal renal function at baseline MIKE: ATN from sepsis syndrome and diminished renal perfusion; also aminoglycoside induced nephrotoxicity likely also contributing; possibly AIN HD initiated 09/20; currently on TTS schedule seen during bedside dialysis on a 3K, 380 BFR, goal 3.5-4.5 or as tolerated s/p PermCath placement remains oliguric, cline removed not on pressors or IVF; continue Nepro tube feeding , avoid free water flushes due to hyponatremia continue PhosLo for hyperphosphatemia continue Bumex BID IV Avoid nephrotoxic agents. await signs of renal recovery Continue supportive care. (2) ARDS (adult respiratory distress syndrome) Plan: s/p trach placement continue Ventilator support: A/C 18/650/50/10 Maintenance Team Leader managing. Ween when able (3) Anemia Plan: Hb low but improving on heparin and protonix GI following, transfuse PRN; given 1 unit 5/4 follow Hb (4) Pneumonia Plan: has had Pseudomonas in the sputum. ID following, on cefepime, Zyvox, micafungin, and tobramycin nebulizer given a dose of cefepime and vancomycin (5) Hypothyroidism Plan: on synthroid (6) Morbid obesity (7) DVT (deep venous thrombosis) Plan: in IJ after central line placement (provoked) on heparin bridge to Coumadin , follow INR Plan patient was seen and examined during dialysis. Involuntary twitching of right lower extremity is noted. Febrile last night. ID has started several antimicrobials. Urine output is very low. Poor prognosis. Continue dialysis support. (Anshu Tan MD) Problem Qualifiers (1) Pneumonia: Qualified Code: J18.9 - Pneumonia of both lungs due to infectious organism, unspecified part of lung Genny Lowery [facility] October 03, 2016 09:38 Anshu Tan MD October 03, 2016 13:59
--- NOTE | 2016-10-03 09:53 | HHI.CCPN ---
Subjective Remarks/Hospital Course 56-year-old morbidly obese female brought in the emergency department in respiratory distress. She was intubated by ER attending. She has been sick for about a week with symptoms consistent with UTI. She's had fevers and chills. She's been short of breath. She's had fatigue. She has had a cough and chest pain with coughing. The family reports that she's been delirious for the last 3 days. 08/15 Patient is sedated with Diprivan, Versed, Fentanyl and intubated. CTA chest showed no PE multifocal consolidation greatest in RLL. Tmax 100.6 08/16 Patient is sedated with Diprivan and Fentanyl. Afebrile. CXR this morning showed increase consolidation. 08/17 Patient remains sedated and intubated. T:100.4 On PRVC/AC RR 18, Tv 500, IT :1.0 PEEP:10, FIO2 75% 08/18 Remains sedated and intubated. Afebrile. CXR this morning unchanged bibasilar infiltrates and effusions. 08/19 Patient was placed on rotoprone bed last night for proning sedated with Diprivan, Versed and Fentnayl in addition she is on Nimbex. On PRVC/AC RR 20, TV 400, IT:1.1, PEEP:14 and FIO2 80%. Afebrile. 08/20 Patient remains sedated and intubated. Remains on PRVC/AC mode with improvements in her oxygenation on FIO2 50% from 80% yesterday and PEEP:12. 08/21 Patient remains sedated and intubated. On PRVC/AC mode with RR 20, TV 400, IT:1.1, PEEP: 12 and FIO2 50%. Afebrile. 08/22 No acute events overnight. Remains sedated, intubated and on Nimbex.. T: 99.8. On PRVC mode with PEP: 12, FIO2 50%. CXR from yesterday showed better aeration, RLL infiltrate unchanged. 08/23 Chest x-ray worsening. Methylprednisolone taper to twice a day by pulmonary. The patient's FiO2 was found to be 100% this a.m., will continue to wean. 08/24: 1 desat episode yesterday when supine. still remains prone now. no vasopressors. sedated and paralyzed. 08/25: flolan added yesterday. fio2 down to 60%. remained supine all night. still on neuromuscular blockade. net -500cc/24h. 08/26: good diuresis. remained supine. fio2 70%. weaning flolan. remains with significant respiratory support and high peep despite 6L diuresis overnight. Cr still stable. 08/27: continues with good diuresis. net negative 3L/24h. fio2 down to 55%. flolan off. still high peep. not ready for SBT. more agitated today. Cr remains stable despite aggressive diuresis. 08/28: diuresis continues. -3.3L/24h. spiked fever overnight with a jump in wbc to 16 this AM. fio2 60%, but her pulmonary improvements have plateaued at this point. still on peep 12. 08/29: net -1.7L/24h. Cr starting to rise. still spiking fevers despite vanc/ cefepime added yesterday. wbc continues to rise. clinically appears infected, although unclear source. peep 10, fio2 60%. will likely need trach. 08/30: net +800cc, but Cr downtrending. appears clinically euvolemic. fever curve downtrending. wbc downtrending. on 40% fio2, peep 8 today. still following commands. 08/31: failed SBT after only 45 minutes yesterday. intubated for > 2 weeks at this point. will attempt to pursue trach/peg today. will continue with pulmonary strengthening. daily SBTs. 09/01 CXR showing increasing bibasilar infiltrate. Failed C Pap trial in 5 minutes due to severe tachypnea. PEG tube today. Family has not decided on trach yet 09/02: Patient febrile to 101.1, CXR increased infiltrate Tmax Tmax 101.1. Currently 9.7 left upper lung and right lower lobe. Pancultured. Cefepime added today and one dose of vancomycin. Continues to fail C Pap trial due to tachypnea and respiratory distress 09/03: Remains hypoxemic on 75% oxygen with new pneumonia. Sputum culture 09/02/16 with GNR. Family agreeable for tracheostomy but patient is not stable at this point for trach 09/04: still on 70% fio2. still hypoxic. pneumonia persists. needs trach, but too unstable at this point. 09/05: remains on 75% fio2. pseudomonas sensitivities came back resistant to carbapenems, intermediate to levaquin. still spiking fevers. not clinically improving. wbc remains elevated. 09/06: Remains on 12 of PEEP and FiO2 75%. Zosyn and tobramycin started yesterday. WBC count trending down today 11.5 from 13.1. Remains heavily sedated for ventilator synchrony. MAXIMUM TEMPERATURE 100.3 09/07: Continues to spike fever. CXR unchanged. WBC count improving. PEEP 14. FiO2 60%. Will start IV Bumex 1mg IV q12 09/09: Tolerating tube feeds at goal. Afebrile. No documented bowel movement. Currently sedated on the ventilator 09/10: Tmax 99.7. Currently 99.4. No bowel movement yesterday. None document since 09/04. Arousable on the ventilator 09/11: Tmax 102.6. Currently 100. Positive BM. Arousable on the ventilator. Tolerating tube feeds. Central line changed yesterday. Plan for bronchoscopy at 1 PM. 09/12: Tmax 100.1. Currently afebrile. Follows commands today. Wiggles toes and give thumbs up appropriately. MRI brain canceled. Tolerating tube feeding with positive BM. Tracheostomy currently planned for . 09/13: Tmax 102. Again on sedation [place] commands by wiggling toes bilaterally and giving thumbs up bilaterally appropriate. Tolerating tube feeding with positive BM. Tracheostomy planned for tomorrow with Dr. Ortega. 09/14: Low grade fever. CXR showing more prominent infiltrate on the right lower lobe and left upper lobe. WBC trending up still in normal range. Patient is on 40% FiO2 but continues to fail CPAP due to tachypnea 09/15: Remains intubated sedated, unable to wean off the vent. Plan for tracheostomy today with Dr. Ortega. Continues to have low grade fever. CXR with persistent bibasilar infiltrates 09/16: Tmax 101.1. Currently 100.7. Awake and alert. Following commands. 09/17: Afebrile. Currently on PSV trial. Tolerating tube feeds. One bowel movement. Noted decreased urine output past 48 hours. Diuretics have been discontinued. This a.m. creatinine currently pending. 09/18: Afebrile. Adequate urine output yesterday but decreased 150 past 8 hours. Tolerating tube feeds. One bowel movement. Not tolerating PSV trials today. 09/19: Tmax 100.5. Urine output picking up. Tolerating tube feeds. No bowel movement 48 hours. Not tolerating PSV trials. 09/20: Diffuse drug morbilliform exanthem noted this a.m. Tmax 100.6. Urine output around 20 cc an hour. Not tolerating PSV trials. Possibly new right pleural effusion noted on chest x-ray. Will need hemodialysis 09/21: Tmax 100.6 currently 98.7. -4 L with hemodialysis yesterday and today. FiO2 to 60%. Tolerating tube feeds. Positive BM. Still requiring sedation 09/22: Afebrile. Tolerating tube feeds. Positive BM. 30 g per kilogram per minute of propofol. Tolerated PSV trials 3 hours today 09/23 HD today with 3.5 L removal. Tolerating CPAP for 8 hours, currently 45% with RSBI 45%. 09/24 Called by RN this morning for concern for bloody BMs. Placed heparin and warfarin on hold. Serial Hgb ordered. Hgb 9.3 -->8.6 and hemodynamically unchanged. Started on protonix drip. Heme stool is negative and now RN states she is concerned about the adequacy of specimen, so sending repeat. Had asked GI to see, however further workup will not be indicated if hemoccult is negative. Tolerating PSV 05/06 09/25: heparin restarted. hemocult negative x 2. 09/26: no changes. still failing cpap trials. 09/27: Tmax 101.5. Currently 99.5. Resting on Diprivan drip at 25 mcg/kg/m. Currently tolerating tube feeding.. One bowel movement. 09/28: Hemoglobin trending downward. Transfusing 1 unit PRBCs with hemodialysis today. Currently afebrile. Appears comfortable ventilator 2 bowel movements 09/29 No events overnight. Sedated with Diprivan and on ventilator via trach. T: 99.9 For Perma Cath placement today. s/p HD yesterday with removal 4L and transfusion 1unit PRBC with HD. 09/30: Tmax 100.8. No events overnight. No bowel movement. Tolerating tube feeds. Subjective 10/01: Tmax 101.3. Currently resting in bed in no acute distress. Tolerating tube feeds. Chest x-ray revealed atelectasis. -5 L with hemodialysis yesterday. 10/02 Patient remains on ventilator via trach on PRVC/AC with PEEP: 10 and FIO2 50 %. T: 102.1 at 4 am. 10/03 Patient is off sedation on ventilator via trach. Tmax 101.2 last night. For HD today. Objective Vital Signs Date Time Temp Pulse Resp B/P Pulse Ox O2 Delivery O2 Flow Rate FiO2 10/03/16 08:45 87 83/45 93 10/03/16 08:08 50 10/03/16 08:00 100.8 10/03/16 04:00 20 Intake and Output 10/02/16 10/02/16 10/03/16 08:00 16:00 00:00 Intake Total 602 ml 944 ml 1009 ml Output Total 15 ml 65 ml 20 ml Balance 587 ml 879 ml 989 ml Result Diagram: 10/03/16 0445 10/03/16 0445 Other Results Laboratory Tests Test 10/02/16 10/02/16 10/03/16 12:20 12:45 04:45 Blood Gas Puncture Site RT RADIAL Blood Gas Patient Temperature 98.6 Blood Gas HCO3 24 mmol/L Blood Gas Base Excess -0.4 mmol/L Blood Gas Oxygen Saturation 93 % Arterial Blood pH 7.41 Arterial Blood Partial 39 mmHg Pressure CO2 Arterial Blood Partial 82 mmHg Pressure O2 Arterial Blood Oxygen Content 11.3 Vol % Arterial Blood 1.7 % Carboxyhemoglobin Arterial Blood Methemoglobin 1.8 % Blood Gas Hemoglobin 8.5 G/DL Oxygen Delivery Device VENTILATOR Blood Gas Ventilator Setting Blood Gas Inspired Oxygen 50 % Urine Color LIGHT-RED Urine Turbidity CLOUDY Urine pH 6.0 Urine Specific [place] 1.021 Urine Protein 100 mg/dL Urine Glucose (UA) NEG mg/dL Urine Ketones NEG mg/dL Urine Occult Blood MOD Urine Nitrite NEG Urine Bilirubin NEG Urine Urobilinogen LESS THAN 2.0 MG/DL Urine Leukocyte Esterase LARGE Urine RBC 72 /hpf Urine WBC /hpf Urine Squamous Epithelial 1 /hpf Cells Urine Renal Epithelial Cells 8 /hpf Urine Bacteria MANY /hpf Microscopic Urinalysis Comment CATH-CULTURE IND White Blood Count 15.9 TH/MM3 Red Blood Count 3.03 MIL/MM3 Hemoglobin 8.3 GM/DL Hematocrit 25.6 % Mean Corpuscular Volume 84.4 FL Mean Corpuscular Hemoglobin 27.5 PG Mean Corpuscular Hemoglobin 32.6 % Concent Red Cell Distribution Width 18.1 % Platelet Count 273 TH/MM3 Mean Platelet Volume 7.7 FL Neutrophils (%) (Auto) 79.6 % Lymphocytes (%) (Auto) 6.0 % Monocytes (%) (Auto) 4.8 % Eosinophils (%) (Auto) 8.6 % Basophils (%) (Auto) 1.0 % Neutrophils # (Auto) 12.6 TH/MM3 Lymphocytes # (Auto) 1.0 TH/MM3 Monocytes # (Auto) 0.8 TH/MM3 Eosinophils # (Auto) 1.4 TH/MM3 Basophils # (Auto) 0.2 TH/MM3 CBC Comment AUTO DIFF Differential Total Cells 100 Counted Neutrophils % (Manual) 60 % Band Neutrophils % 24 % Lymphocytes % 6 % Monocytes % 1 % Eosinophils % 5 % Neutrophils # (Manual) 14.0 TH/MM3 Metamyelocytes 3 % Myelocytes 1 % Differential Comment FINAL DIFF MANUAL Prothrombin Time 10.7 SEC Prothromb Time International 1.0 RATIO Ratio Activated Partial 41.2 SEC Thromboplast Time Sodium Level 126 MEQ/L Potassium Level 4.0 MEQ/L Chloride Level 85 MEQ/L Carbon Dioxide Level 23.9 MEQ/L Anion Gap 17 MEQ/L Blood Urea Nitrogen 65 MG/DL Creatinine 4.11 MG/DL Estimat Glomerular Filtration 11 ML/MIN Rate Random Glucose 128 MG/DL Calcium Level 9.0 MG/DL Phosphorus Level 4.5 MG/DL Imaging Last Impressions Chest X-Ray 10/01/16 0000 Signed Impressions: Service Date/Time: Saturday, October 01, 2016 10:04 - CONCLUSION: 1. Streaky opacity at the lung bases most consistent with atelectasis. 2. Suboptimal exam with no confluent infiltrates. Scotty Huynh MD Catheter Placement X-Ray 09/29/16 1223 Signed Impressions: Service Date/Time: Thursday, September 29, 2016 12:31 - CONCLUSION: Vas-Cath to PermCath exchange as detailed above. Taco Haas Jr., MD Renal Ultrasound 09/17/16 0000 Signed Impressions: Service Date/Time: Saturday, September 17, 2016 13:31 - CONCLUSION: Negative renal sonogram. Taco Davidson MD Upper Extremity Ultrasound 09/14/16 0000 Signed Impressions: Service Date/Time: August 08:32 - CONCLUSION: There is thrombus within the left subclavian and internal jugular veins. Danyel Escalante MD Lower Extremity Ultrasound 09/13/16 0000 Signed Impressions: Service Date/Time: Tuesday, September 13, 2016 22:33 - CONCLUSION: Normal examination. Leonides Mason MD Liver Ultrasound 09/08/16 0000 Signed Impressions: Service Date/Time: Thursday, September 08, 2016 08:45 - CONCLUSION: 1. Cholelithiasis with distended gallbladder. However, there are no associated findings present to diagnose acute cholecystitis. If there is persistent clinical concern for acute cholecystitis could evaluate for cystic duct obstruction with hepatobiliary scintigraphy. 2. Hepatomegaly with very heterogeneous echotexture and steatosis. Dejan Allison MD Gall Bladder Ultrasound 08/29/16 0000 Signed Impressions: Service Date/Time: Monday, August 29, 2016 15:21 - CONCLUSION: 1. Hepatomegaly with heterogeneous echotexture throughout the liver. 2. There is a large echogenic area near the neck of the gallbladder suggestive of a stone, but despite its large size, demonstrates no acoustic shadowing in any of the views. Taco Davidson MD CT Angiography 08/15/16 0000 Signed Impressions: Service Date/Time: Monday, August 15, 2016 02:33 - CONCLUSION: 1. No evidence for pulmonary embolism. 2. Multifocal consolidation greatest in the right lower lobe and associated adenopathy. Terry Estrada MD Objective Remarks GENERAL: 56 yo female currently resting in bed mechanically ventilated SKIN: Warm and dry. Skin is flaky. Rash is resolved. Noted stage I to 2 decubitus ulcer\coccyx and back covered with Mepilex HEAD: Normocephalic. EYES: No scleral icterus. No injection or drainage. NECK: Neck is obese. Right subclavian hemodialysis catheters clean dry and intact. Tracheostomy is clean dry and intact CARDIOVASCULAR: RRR. S1, S2 no S4 . No murmur RESPIRATORY: Diminished breath sounds throughout due to body habitus GASTROINTESTINAL: Abdomen obese, soft, non-tender, hypoactive active bowel sounds. G-tube is clean dry and intact MUSCULOSKELETAL: Crinkling of bilateral lower extremities. 1+ edema BUE. Neuro: Awake, makes eye contact and nods to questions. Currently following commands moving upper and lower extremity spontaneously. A/P Problem List: (1) ARDS (adult respiratory distress syndrome) ICD Code: J80 Status: Acute (2) CHF (congestive heart failure) ICD Code: I50.9 Status: Acute (3) Respiratory failure ICD Code: J96.90 Status: Acute (4) Pneumonia ICD Code: J18.9 Status: Acute Assessment and Plan Neuro/Psych: Acute toxic metabolic encephalopathy Agitated delirium Off sedation. Monitor neuro status. Fentanyl allergy On Seroquel EEG 09/09 moderate to severe encephalopathy Pulm: Acute hypercapnic and hypoxemic respiratory failure ARDS Pneumonia community-acquired, now with HCAP with carbapenem-resistant pseudomonas Probable JOE PRVC 18/650/1.08/04/49, decrease FIO2 40% as tiki Ventilator bundle, check ABG CXR 10/01: Atelectasis. Suboptimal exam with no confluent infiltrates. Bronchodilator therapy every 4 hours and as needed Pulm has followed- Dr. Beck Gen surgery Dr. Ortega s/p s tracheostomy 09/15 Pulm toilet, trach care CV: Hypertension Dyslipidemia Elevated troponin - likely strain Metoprolol 12.5 mg by mouth 3 times a day Echo 08/14 showed EF 65-70% mild AR/TR On Pravachol 20 mg a night for dyslipidemia Renal/: Acute kidney injury - requiring hemodialysis Dr. Tan -nephrology following. Hemodialysis Sunday//Sunday MIKE: ATN from sepsis syndrome and diminished renal perfusion ; also aminoglycoside induced nephrotoxicity likely also contributing; possibly AIN -> per nephrology note Urine eosinophils negative. Renal ultrasound revealed no hydronephrosis Monitor renal function, I/O's, avoid nephrotoxins On Bumex 2mg IV BID nephrology HD 09/30 with planned removal 5L. For HD today GI: Elevated transaminases Cholelithiasis US liver: Fatty liver and cholelithiasis. Repeat 09/08 revealed cholelithiasis with no acute signs of cholecystitis. Recommend a HIDA scan if indicated On TF Nepro's 45 cc an hour and beneprotein 2 packs 3 times a day s/p PEG placement 09/01/[address] Stone Mac/Lucero Lopes for bowel regimen. Pepcid 20 mg liquid daily GI prophylaxis ID: Pseudomonas pneumonia Funguria, Maribell glabrata and parapsilosis. Continue with abx ( Cefepime, Tobra nebs, Micafungin, Zyvox). ID is following. Pancultured 10/03 ( Blood, sputum, urine) Monitor for signs of infections ( Fever , WBC) Pertinent cultures blood and sputum cx 08/15- NG strep pneumonia and Legionella urinary Ag negative Blood cultures 08/28: NGTD C Diff negative 08/28. Lines changed 08/28. Sputum 08/30 - Pseudomonas Sputum 09/02 PSAE, resistant to carbapenem, intermediate to Levaquin. 09/07 - urine -Maribell Guilliermondii 09/07 - blood cultures 2 - no growth 09/09 - urine -strep viridans, Maribell parapsilosis 09/10 - blood cultures 2 -no growth 09/11 - broch washings -no growth to date 09/12 - urine -Maribell glabrata and parapsilosis 09/16 - blood cultures 2 - pending 09/16 - sputum -no growth 09/16 - urine -Maribell glabrata and parapsilosis Zosyn previously discontinued secondary to rash Heme: Normocytic anemia Left IJ/subclavian nonocclusive thrombus Peripheral smear with leukoerythroblastosis - likely reactive Monitor CBC, s/p transfusion 1unit PRBC with HD 09/29 On heparin drip bridging to therapeutic INR with Warfarin. Monitor PTT/INR Endo: Diabetes mellitus Hypothyroidism on SSI (medium scale) for glycemic control On Synthroid 200mcg daily. TSH 1.37 GI prophylaxis-Protonix 40mg Q12 DVT - Heparin gtt/Coumadin d/c heparin drip once INR>2.0 - Continue , SCDs Lines: Peripheral IV. - PEG 09/01/16 - Trach 09/15 -Right Permacath placed 09/29 Level 3 Loree Marinelli, daughter (HCP): [phone] Rony Marinelli, significant other: [phone] Problem Qualifiers (1) CHF (congestive heart failure): Qualified Code: I50.9 - Acute congestive heart failure, unspecified congestive heart failure type (2) Respiratory failure: Qualified Code: J96.02 - Acute respiratory failure with hypercapnia (3) Pneumonia: Qualified Code: J18.9 - Pneumonia of both lungs due to infectious organism, unspecified part of lung Ute Santamaria MD October 03, 2016 09:53
[2016-10-03] MEDS: PANTOPRAZOLE SODIUM 40 MG VIAL IV PUSH SCH (11:00)
[2016-10-03] MEDS: BUMETANIDE INJ 1 MG/4 ML VIAL IV PUSH SCH ×2 (11:30→18:00)
[2016-10-03] MEDS ORDERED: CEFEPIME INJ 1,000 MG in SODIUM CHLORIDE 0.9% INJ 100 ML IV SCH (12:00)
--- NOTE | 2016-10-03 12:40 | HHI.PR ---
Subjective Remarks Awake and on vent support , FIO2 at 45 %. Was dialyzed. Has some fever. Objective Vital Signs Date Time Temp Pulse Resp B/P Pulse Ox O2 Delivery O2 Flow Rate FiO2 10/03/16 12:08 81 83/45 93 10/03/16 12:06 76 10/03/16 12:00 50 10/03/16 11:57 95 50 10/03/16 10:02 75 10/03/16 08:45 87 83/45 93 10/03/16 08:31 90 86/45 92 10/03/16 08:30 92 92 10/03/16 08:15 93 104/56 94 10/03/16 08:08 97 50 10/03/16 08:00 79 10/03/16 08:00 50 10/03/16 08:00 100.8 85 115/59 95 10/03/16 07:45 75 95 10/03/16 07:30 78 103/51 96 10/03/16 07:15 78 95 10/03/16 07:00 78 91/52 95 10/03/16 06:00 80 10/03/16 04:00 100.2 92 20 119/64 93 10/03/16 04:00 50 10/03/16 04:00 92 10/03/16 03:31 93 50 10/03/16 02:00 88 10/03/16 01:17 94 50 10/03/16 00:00 50 10/03/16 00:00 87 10/03/16 00:00 100.5 85 20 116/60 93 10/02/16 22:30 95 50 10/02/16 22:00 81 10/02/16 20:00 50 10/02/16 20:00 101.2 84 22 106/56 93 10/02/16 20:00 84 10/02/16 18:00 84 10/02/16 16:24 94 50 10/02/16 16:00 83 10/02/16 16:00 100.8 83 22 114/64 94 10/02/16 16:00 50 10/02/16 15:26 19 I/O 10/02/16 10/02/16 10/02/16 10/03/16 10/03/16 10/03/16 07:00 15:00 23:00 07:00 15:00 23:00 Intake Total 602 ml 944 ml 1009 ml 630 ml Output Total 15 ml 65 ml 20 ml 0 ml 4500 ml Balance 587 ml 879 ml 989 ml 630 ml -4500 ml Intake Oral 0 ml 0 ml 0 ml IV Total 230 ml 502 ml 618 ml 300 ml Tube Feeding 312 ml 322 ml 331 ml 210 ml Tube Irrigant 60 ml 120 ml 60 ml 120 ml Output Urine Total 15 ml 65 ml 20 ml 0 ml Hemodialysis 4500 ml # Bowel Movements 0 0 0 0 Result Diagram: 10/03/165 10/03/16 0445 Objective Remarks This is an obese middle-aged white female who is lethargic. HEENT: Head normocephalic. Pupils react. Neck: No bruits, no thyroid enlargement, no lymphadenopathy. Chest: Decreased breath sounds. Few basal crackles. Heart: Heart sounds were regular. S1-S2 no murmur, no S3. Abdomen: Soft, benign. No masses, or tenderness. Bowel sounds are active. Extremities: 1 + edema . Neuro :Moves feet. Awake . Assessment and Plan Assessment and Plan IMPRESSION 1. Acute hypercapnic respiratory failure. 2. Pulmonary edema. 3. Drug rash 4. Obstructive sleep apnea syndrome 5. Hypertension 6. Hypothyroidism. 7. MIKE Plan : 1. Cont weaning vent and Increase PEEP to 10, FIO2 45 % 2. Trach toilet and suctioning. 3. Nebs qid , duoneb. 4. A/C rate 14,and daily CPAP trial 5. Labs in am 6. PT evaluation 7. Tube feeds at 50 CC Abimael Beck MD October 03, 2016 12:40
--- NOTE | 2016-10-03 14:02 | HHI.IDPN ---
Subjective Subjective Remarks Patient is admitted to ICU with respiratory failure, CHF, pneumonia, probable underlying COPD. Patient was intubated and placed on mechanical ventilation. NOt weaning and had trach done 09/15. Has been having fevers. s/p Rx for PSAE PNA and C glabrat UTI Chart reviewed since last seen by me. ID reconsulted for persistent high grade fevers with leucocytosis. Oliguric, Now on HD Tues, Thurs, Sat. Remains on vent. Secretions thick, yellow, moderate. Not on pressors. On Tube feeds, tolerating. PEG tube site ok. No diarrhea Has clot in her LUE, on heparin Antibiotics Cefepime IV Linezolid IV tobramycin nebs Lines Line sites with no e.o infection. Past Medical History reviewed. Allergies: Coded Allergies: Fentanyl (Verified Adverse Reaction, Severe, rash, 09/21/16) Objective . Vital Signs Date Time Temp Pulse Resp B/P Pulse Ox O2 Delivery O2 Flow Rate FiO2 10/03/16 12:08 81 83/45 93 10/03/16 12:06 76 10/03/16 12:00 50 10/03/16 11:57 95 50 10/03/16 10:02 75 10/03/16 08:45 87 83/45 93 10/03/16 08:31 90 86/45 92 10/03/16 08:30 92 92 10/03/16 08:15 93 104/56 94 10/03/16 08:08 97 50 10/03/16 08:00 79 10/03/16 08:00 50 10/03/16 08:00 100.8 85 115/59 95 10/03/16 07:45 75 95 10/03/16 07:30 78 103/51 96 10/03/16 07:15 78 95 10/03/16 07:00 78 91/52 95 10/03/16 06:00 80 10/03/16 04:00 100.2 92 20 119/64 93 10/03/16 04:00 50 10/03/16 04:00 92 10/03/16 03:31 93 50 10/03/16 02:00 88 10/03/16 01:17 94 50 10/03/16 00:00 50 10/03/16 00:00 87 10/03/16 00:00 100.5 85 20 116/60 93 10/02/16 22:30 95 50 10/02/16 22:00 81 10/02/16 20:00 50 10/02/16 20:00 101.2 84 22 106/56 93 10/02/16 20:00 84 10/02/16 18:00 84 10/02/16 16:24 94 50 10/02/16 16:00 83 10/02/16 16:00 100.8 83 22 114/64 94 10/02/16 16:00 50 10/02/16 15:26 19 10/02/16 10/02/16 10/03/16 15:00 23:00 07:00 Intake Total 944 ml 1009 ml 630 ml Output Total 65 ml 20 ml 0 ml Balance 879 ml 989 ml 630 ml Intake Oral 0 ml 0 ml IV Total 502 ml 618 ml 300 ml Tube Feeding 322 ml 331 ml 210 ml Tube Irrigant 120 ml 60 ml 120 ml Output Urine Total 65 ml 20 ml 0 ml # Bowel Movements 0 0 0 . Laboratory Tests Test 10/02/16 10/03/16 04:25 04:45 White Blood Count 13.9 TH/MM3 15.9 TH/MM3 Red Blood Count 2.82 MIL/MM3 3.03 MIL/MM3 Hemoglobin 7.9 GM/DL 8.3 GM/DL Hematocrit 23.7 % 25.6 % Mean Corpuscular Volume 83.9 FL 84.4 FL Mean Corpuscular Hemoglobin 28.1 PG 27.5 PG Mean Corpuscular Hemoglobin 33.5 % 32.6 % Concent Red Cell Distribution Width 17.9 % 18.1 % Platelet Count 266 TH/MM3 273 TH/MM3 Mean Platelet Volume 7.2 FL 7.7 FL Neutrophils (%) (Auto) 79.6 % Lymphocytes (%) (Auto) 6.0 % Monocytes (%) (Auto) 4.8 % Eosinophils (%) (Auto) 8.6 % Basophils (%) (Auto) 1.0 % Neutrophils # (Auto) 12.6 TH/MM3 Lymphocytes # (Auto) 1.0 TH/MM3 Monocytes # (Auto) 0.8 TH/MM3 Eosinophils # (Auto) 1.4 TH/MM3 Basophils # (Auto) 0.2 TH/MM3 CBC Comment AUTO DIFF Differential Total Cells 100 Counted Neutrophils % (Manual) 60 % Band Neutrophils % 24 % Lymphocytes % 6 % Monocytes % 1 % Eosinophils % 5 % Neutrophils # (Manual) 14.0 TH/MM3 Metamyelocytes 3 % Myelocytes 1 % Differential Comment FINAL DIFF MANUAL Laboratory Tests Test 10/02/16 10/03/16 04:25 04:45 Sodium Level 129 MEQ/L 126 MEQ/L Potassium Level 3.8 MEQ/L 4.0 MEQ/L Chloride Level 86 MEQ/L 85 MEQ/L Carbon Dioxide Level 26.8 MEQ/L 23.9 MEQ/L Anion Gap 16 MEQ/L 17 MEQ/L Blood Urea Nitrogen 51 MG/DL 65 MG/DL Creatinine 3.66 MG/DL 4.11 MG/DL Estimat Glomerular Filtration 13 ML/MIN 11 ML/MIN Rate Random Glucose 100 MG/DL 128 MG/DL Calcium Level 8.4 MG/DL 9.0 MG/DL Phosphorus Level 4.0 MG/DL 4.5 MG/DL Magnesium Level 2.2 MG/DL Microbiology Date/Time Procedure Status Source Growth 10/02/16 08:30 Gram Stain - Final Resulted Sputum Endotracheal 10/02/16 08:30 Sputum Culture - Preliminary Resulted Gram Negative [place] 10/02/16 09:39 Aerobic Blood Culture - Preliminary Resulted Blood Peripheral NO GROWTH IN 1 DAY 10/02/16 09:39 Anaerobic Blood Culture - Preliminary Resulted Blood Peripheral NO GROWTH IN 1 DAY 10/02/16 09:47 Aerobic Blood Culture - Preliminary Resulted Blood Peripheral NO GROWTH IN 1 DAY 10/02/16 09:47 Anaerobic Blood Culture - Preliminary Resulted Blood Peripheral NO GROWTH IN 1 DAY 10/02/16 12:45 Urine Culture Received Urine Catheterized Urine Pending Imaging Chest X-Ray 09/15/16 0600 Signed Impressions: Service Date/Time: Thursday, September 15, 2016 03:52 - CONCLUSION: Persistent and unchanged bibasilar infiltrates. Taco Haas Jr., MD Chest X-Ray 09/15/16 0000 Signed Impressions: Service Date/Time: Thursday, September 15, 2016 11:00 - CONCLUSION: Placement of tracheostomy tube otherwise not changed. Danyel Escalante MD Liver Ultrasound 09/08/16 0000 Signed Impressions: Service Date/Time: Thursday, September 08, 2016 08:45 - CONCLUSION: 1. Cholelithiasis with distended gallbladder. However, there are no associated findings present to diagnose acute cholecystitis. If there is persistent clinical concern for acute cholecystitis could evaluate for cystic duct obstruction with hepatobiliary scintigraphy. 2. Hepatomegaly with very heterogeneous echotexture and steatosis. Dejan Allison MD Chest X-Ray 09/06/16 0000 Signed Impressions: Service Date/Time: Tuesday, September 06, 2016 11:09 - CONCLUSION: No significant change has occurred. Terry Estrada MD Gall Bladder Ultrasound 08/29/16 0000 Signed Impressions: Service Date/Time: Monday, August 29, 2016 15:21 - CONCLUSION: 1. Hepatomegaly with heterogeneous echotexture throughout the liver. 2. There is a large echogenic area near the neck of the gallbladder suggestive of a stone, but despite its large size, demonstrates no acoustic shadowing in any of the views. Taco Davidson MD CT Angiography 08/15/16 0000 Signed Impressions: Service Date/Time: Monday, August 15, 2016 02:33 - CONCLUSION: 1. No evidence for pulmonary embolism. 2. Multifocal consolidation greatest in the right lower lobe and associated adenopathy. Terry Estrada MD Physical Exam GENERAL: Morbidly obese CF patient, awake, NAD, on the vent SKIN: Has patches of redness on her trunk, and some papules in extremities HEAD: Atraumatic. Normocephalic. No temporal or scalp tenderness. EYES: Pupils equal round and reactive. No scleral icterus. Moist mucosa ENT: No nasal discharge. Dry oral mucosa NECK: Large neck. Supple. Trach in place CARDIOVASCULAR: Regular rate and rhythm RESPIRATORY: Clear to auscultation. Breath sounds equal bilaterally. GASTROINTESTINAL: Abdomen soft, obese, non-tender, nondistended. MUSCULOSKELETAL: Extremities without clubbing, cyanosis. Edema (+) NEUROLOGICAL: eyes open, did not track of focus PIV with no evidence of infection Miller in place with clear urine. Assessment & Plan Remarks Sepsis present on admission. Possible HCAP. Possible CLABSI. Morbid Obesity (BMI 45.8 kg/m2) Obstructive Sleep Apnea (supposed to be on CPAP at home and home oxygen 2L) Acute respiratory failure vent dependent. Acute metabolic encephalopathy: infection, meds. Thrombosis of cephalic vein. Renal insufficiency, now on HD Recs: Changed Cefepime IV dose for Hemodialysis. If overnight any change in clinical condition change Cefepime to Meropenem IV. Continue Zyvox IV (would like to avoid nephrotoxins, cannot give Dapto IV) Continue Moses nebs. Weaning per CCM Monitor progress Follow oscar D/W Terri Basilio MD October 03, 2016 14:02
[2016-10-03] MEDS: WARFARIN SOD 2.5 MG TAB PO SCH (16:00)
[2016-10-03] MEDS ORDERED: WARFARIN SOD 5 MG TAB PO SCH (16:00)
[2016-10-03] MEDS: PRAVASTATIN SOD 20 MG TAB PO SCH (21:10)
[2016-10-04] VITALS (17 sets, daily range): BP systolic 94–139; BP diastolic 56–77; PULSE 87–104; RESP 15–18; TEMP 98.9–101; O2SAT 90–99
[2016-10-04] MEDS: PANTOPRAZOLE SODIUM 40 MG VIAL IV PUSH SCH ×3 (00:43→23:54)
[2016-10-04] MEDS: oxyCODONE HCL ORAL CONC 20 MG/ML SYRINGE G-TUBE SCH ×6 (00:43→21:40)
[2016-10-04] MEDS: HEPARIN-D5W 25,000 U/250 ML 250 ML IV SCH ×2 (01:02→13:18)
[2016-10-04] MEDS: RESP: ALBUTEROL 2.5 MG/IPRATROPIUM 0.5 MG NEB (SCH) INH ×4 (02:53→21:45)
[2016-10-04] MEDS: CHLORHEXIDINE GLUCONATE 2 % 1 PACK (2 CLOTHS) TOP SCH (04:00)
[2016-10-04 05:56] LABS: AUTOMATED NEUTROPHIL # 9.2 TH/MM3 (1.8-7.7); BASOPHIL # 0.1 TH/MM3 (0-0.2); EOSINOPHIL # 1.5 TH/MM3 (0-0.4); EOSINOPHIL % 12.4 % (0.0-4.0); HEMATOCRIT 25.1 % (35.0-46.0); LYMPH % 7.2 % (9.0-44.0); LYMPHOCYTE # 0.9 TH/MM3 (1.0-4.8); MEAN CELL VOLUME 84.9 FL (80.0-100.0); MEAN CORPUSCULAR HEMOGLOBIN 27.2 PG (27.0-34.0); MONO % 5.3 % (0.0-8.0); NEUT % 74.1 % (16.0-70.0); PLATELET COUNT 259 TH/MM3 (150-450); RED BLOOD COUNT 2.95 MIL/MM3 (4.00-5.30); RED CELL DISTRIBUTION WIDTH 18.1 % (11.6-17.2); WHITE BLOOD COUNT 12.4 TH/MM3 (4.0-11.0)
[2016-10-04 06:04] LABS: HEMO FLAGS AUTO DIFF
[2016-10-04 06:14] LABS: APTT (PATIENT) 52.7 SEC (24.3-30.1); PROTHROMBIN TIME - PATIENT 11.5 SEC (9.8-11.6)
[2016-10-04] MEDS: QUEtiapine FUMARATE 25 MG TAB PO SCH ×3 (06:16→21:39)
[2016-10-04] MEDS: LINEZOLID 600 MG PREMIX 300 ML IV SCH (06:16)
[2016-10-04] MEDS: METOCLOPRAMIDE HCL 10 MG/2 ML VIAL IV PUSH SCH ×3 (06:17→21:39)
[2016-10-04] MEDS: LEVOTHYROXINE SODIUM 200 MCG TAB PO SCH (06:17)
[2016-10-04] MEDS: METOPROLOL TARTRATE 25 MG TAB G-TUBE SCH ×4 (06:17→21:39)
[2016-10-04 06:28] LABS: BICARBONATE 27.5 MEQ/L (21.0-32.0); POTASSIUM 3.3 MEQ/L (3.5-5.1)
--- NOTE | 2016-10-04 06:37 | RADRPT ---
EXAM DATE/TIME: 10/04/2016 04:47 [facility] COMPARISON: CHEST SINGLE AP, October 01, 2016, 10:04. INDICATIONS : Shortness of breath. MEDICAL HISTORY : Congestive heart failure. SURGICAL HISTORY : None. ENCOUNTER: Initial ACUITY: 3 weeks PAIN SCORE: Non-responsive. LOCATION: Bilateral chest FINDINGS: A single portable frontal view the chest shows developing infiltrate within the right lung base. The heart is enlarged. Pulmonary vascular engorgement noted. No effusion seen. Dialysis catheter overlies the right chest. Tracheostomy tube observed. CONCLUSION: 1. Pulmonary vascular engorgement. 2. Developing intra-alveolar infiltrate right lung base. Infectious etiology versus asymmetrical pulm onary edema. Taco Haas Jr., MD on October 04, 2016 at 6:35 Board Certified Radiologist. This report was verified electronically.
[2016-10-04] MEDS: RESP: TOBRAMYCIN SULFATE 300 MG/5 ML NEB NEB SCH (08:00)
[2016-10-04] MEDS: ARTIFICIAL TEARS OPTH SOLN 15 ML BTL EACH EYE SCH ×3 (08:10→16:31)
[2016-10-04] MEDS: BENEPROTEIN POWDER 1 PACK G-TUBE SCH ×3 (08:10→16:30)
[2016-10-04] MEDS: POLYETHYLENE GLYCOL 17 GM PKG PO SCH ×2 (08:12→21:38)
[2016-10-04] MEDS: DOCUSATE SODIUM 100 MG/10 ML UDC PO SCH ×2 (08:12→21:38)
[2016-10-04] MEDS: CALCIUM ACETATE 667 MG CAP PO SCH ×3 (08:12→16:29)
[2016-10-04] MEDS: BUMETANIDE INJ 1 MG/4 ML VIAL IV PUSH SCH ×2 (08:12→16:30)
[2016-10-04] MEDS: SENNOSIDES SYRUP 8.8 MG/5 ML CUP PO SCH ×2 (08:13→21:38)
[2016-10-04] MEDS: SODIUM CHLORIDE 0.9% FLUSH 10 ML FLUSH IVF SCH (08:14)
[2016-10-04] MEDS: SODIUM CHLORIDE 0.9% FLUSH 10 ML FLUSH IV FLUSH SCH ×2 (08:14→21:40)
[2016-10-04] MEDS: EUCERIN CREAM 120 GM JAR TOPICAL SCH ×2 (08:14→21:40)
[2016-10-04] MEDS ORDERED: MEROPENEM INJ 500 MG in SODIUM CHLORIDE 0.9% INJ 100 ML IV SCH (09:00)
[2016-10-04] MEDS ORDERED: POTASSIUM CHLORIDE 20 MEQ PWD PACKET PO ONE (09:15)
[2016-10-04 09:43] LABS: BANDS 10 % (0-6); EOSINOPHILS 6 % (0-4); MYELOCYTES 2 % (0-0); NEUTROPHIL # MANUAL DIFF 10.2 TH/MM3 (1.8-7.7); POLYS (SEG NEUTROPHILS) 70 % (16-70); WBC DIFF SAMPLE 100
[2016-10-04 09:44] LABS: PLATELET ESTIMATE SMEAR NORMAL (NORMAL); PLATELET MORPHOLOGY NORMAL (NORMAL); SCAN/DIFF FINAL DIFF MANUAL
--- NOTE | 2016-10-04 10:09 | HHI.NPPN ---
Subjective General Problems: Edema, Hypotension, Obesity Renal Failure: Acute Interval History Borderline hypotensive. Minimally responsive, has generalized twitching on all 4 extremities. She has become anuric. (Genny Lowery) Review of Systems General Constitutional: Fever General Remarks unable to evaluate (Genny Lowery) Objective Data Data 10/03/16 10/04/16 18:59 06:59 Intake Total 799 ml 2114 ml Output Total 4500 ml 0 ml Balance -3701 ml 2114 ml Intake Oral 0 ml IV Total 424 ml 1068 ml Tube Feeding 275 ml 846 ml Tube Irrigant 100 ml 200 ml Output Urine Total 0 ml 0 ml Hemodialysis 4500 ml # Bowel Movements 0 3 Vital Signs Date Time Temp Pulse Resp B/P Pulse Ox O2 Delivery O2 Flow Rate FiO2 10/04/16 09:07 98 50 10/04/16 08:00 98.9 94 18 101/63 98 10/04/16 08:00 50 10/04/16 08:00 91 10/04/16 07:16 18 10/04/16 06:00 94 10/04/16 04:21 93 50 10/04/16 04:00 99.5 93 15 139/77 94 10/04/16 04:00 93 10/04/16 04:00 50 10/04/16 02:00 89 10/04/16 01:41 94 50 10/04/16 00:00 50 10/04/16 00:00 101.0 99 15 116/56 99 10/04/16 00:00 99 10/03/16 22:34 93 50 10/03/16 22:00 96 10/03/16 20:49 94 50 10/03/16 20:00 91 10/03/16 20:00 50 10/03/16 20:00 101.5 91 101/50 94 10/03/16 18:00 73 10/03/16 17:35 81 83/45 93 10/03/16 16:00 50 10/03/16 16:00 71 10/03/16 15:31 95 50 10/03/16 14:00 72 10/03/16 12:08 81 83/45 93 10/03/16 12:06 76 10/03/16 12:00 50 10/03/16 11:57 95 50 (Genny Lowery) -: 10/04/16 0416 10/04/16 0416 Imaging Last Impressions Chest X-Ray 10/04/16 0000 Signed Impressions: Service Date/Time: Tuesday, October 04, 2016 04:47 - CONCLUSION: 1. Pulmonary vascular engorgement. 2. Developing intra-alveolar infiltrate right lung base. Infectious etiology versus asymmetrical pulmonary edema. Taco Haas Jr., MD Catheter Placement X-Ray 09/29/16 1223 Signed Impressions: Service Date/Time: Thursday, September 29, 2016 12:31 - CONCLUSION: Vas-Cath to PermCath exchange as detailed above. Taco Haas Jr., MD Renal Ultrasound 09/17/16 0000 Signed Impressions: Service Date/Time: Saturday, September 17, 2016 13:31 - CONCLUSION: Negative renal sonogram. Taco Davidson MD Upper Extremity Ultrasound 09/14/16 0000 Signed Impressions: Service Date/Time: August 08:32 - CONCLUSION: There is thrombus within the left subclavian and internal jugular veins. Danyel Escalante MD Lower Extremity Ultrasound 09/13/16 0000 Signed Impressions: Service Date/Time: Tuesday, September 13, 2016 22:33 - CONCLUSION: Normal examination. Leonides Mason MD Liver Ultrasound 09/08/16 0000 Signed Impressions: Service Date/Time: Thursday, September 08, 2016 08:45 - CONCLUSION: 1. Cholelithiasis with distended gallbladder. However, there are no associated findings present to diagnose acute cholecystitis. If there is persistent clinical concern for acute cholecystitis could evaluate for cystic duct obstruction with hepatobiliary scintigraphy. 2. Hepatomegaly with very heterogeneous echotexture and steatosis. Dejan Allison MD Gall Bladder Ultrasound 08/29/16 0000 Signed Impressions: Service Date/Time: Monday, August 29, 2016 15:21 - CONCLUSION: 1. Hepatomegaly with heterogeneous echotexture throughout the liver. 2. There is a large echogenic area near the neck of the gallbladder suggestive of a stone, but despite its large size, demonstrates no acoustic shadowing in any of the views. Taco Davidson MD CT Angiography 08/15/16 0000 Signed Impressions: Service Date/Time: Monday, August 15, 2016 02:33 - CONCLUSION: 1. No evidence for pulmonary embolism. 2. Multifocal consolidation greatest in the right lower lobe and associated adenopathy. Terry Estrada MD Tubes & Lines: Perma-Cath Tubes & Lines Comment trach, PEG Drip Comment heparin only (Genny LoweryP) Physical Exam General Appearance: No Acute Distress, Comfortable, Obese Appearance Remarks eyes open with blank stare, tracks with eyes (Genny Lowery MEDICAL DOCTOR MD/MEDICAL DIRECTOR) Throat Throat Exam: Oral Mucosa [place] & Moist Throat Remarks increased secretions from trach and oropharynx (Genny Lowery MEDICAL DOCTOR MD/MEDICAL DIRECTOR) Neck Neck Exam: Neck Supple Neck Remarks trach (Genny Lowery MEDICAL DOCTOR MD/MEDICAL DIRECTOR) Pulmonary Resp Exam: Rhonchi, Sputum, Diminished Breath Sounds Resp Remarks vented lung sounds clear in upper [place] (Genny Lowery MEDICAL DOCTOR MD/MEDICAL DIRECTOR) Cardiology CV Exam: Regular, Normal Sinus Rhythm, Good Perfusion (Genny Lowery MEDICAL DOCTOR MD/MEDICAL DIRECTOR) Gastrointestinal/Abdomen GI Exam: Soft, Bowel Sounds Present, Distended GI Remarks morbidly obese, + PEG infusing (Genny Lowery MEDICAL DOCTOR MD/MEDICAL DIRECTOR) Musculoskeletal MS Exam: Joints Intact (Genny LoweryP) Integumentary Skin Exam: Warm, Dry Skin Remarks flaking/peeling skin (Genny Lowery MEDICAL DOCTOR MD/MEDICAL DIRECTOR) Extremeties Extremities Exam: Moderate Edema, Pitting Edema, Dependent Edema (Genny Lowery. MEDICAL DOCTOR MD/MEDICAL DIRECTOR) Neurologic Neuro Exam: Awake Neuro Remarks awake but unresponsive muscle fasiculation in all 4 extremities, eye twitching (Genny LoweryP) VTE Prophylaxis Device: SCDs (Genny Lowery MEDICAL DOCTOR MD/MEDICAL DIRECTOR) Assessment/Plan Assessment Summary: MIKE/Acute Renal Failure, Acute Tubular Necrosis, Fluid/ Volume Overload Electrolyte Assessment: Hyponatremia Problem List: (1) Acute kidney injury Plan: In a pt with normal renal function at baseline oliguric renal failure, ATN she has become anuric HD initiated 09/20; she is dialysis dependent and currently on TTS schedule (due tomorrow) 4500 ml UF yesterday s/p PermCath placement K was replaced continue Nepro tube feeding ,avoid free water flushes due to hyponatremia; continue PhosLo for hyperphosphatemia continue Bumex BID IV Avoid nephrotoxic agents. Avoid IVF await signs of renal recovery, Continue supportive care. (2) ARDS (adult respiratory distress syndrome) Plan: s/p trach placement continue Ventilator support: A/C 18/650/50/10 Farm Equipment Operator managing. Ween when able (3) Anemia Plan: Hb low but stable on heparin and protonix GI following, transfuse PRN; given 1 unit 5/4 follow Hb (4) Pneumonia Plan: febrile with leukocytosis; recent sputum culture showing Pseudomonas ID following, on cefepime, Zyvox, micafungin, and tobramycin nebulizer (5) Hypothyroidism Plan: on synthroid (6) Morbid obesity (7) DVT (deep venous thrombosis) Plan: in IJ after central line placement (provoked) on heparin bridge to Coumadin , follow INR (Genny Lowery) Problem List: (1) Acute kidney injury Plan: In a pt with normal renal function at baseline oliguric renal failure, ATN she has become anuric HD initiated 09/20; she is dialysis dependent and currently on TTS schedule (due tomorrow) 4500 ml UF yesterday s/p PermCath placement K was replaced continue Nepro tube feeding ,avoid free water flushes due to hyponatremia; continue PhosLo for hyperphosphatemia continue Bumex BID IV Avoid nephrotoxic agents. Avoid IVF await signs of renal recovery, Continue supportive care. (2) ARDS (adult respiratory distress syndrome) Plan: s/p trach placement continue Ventilator support: A/C 18/650/50/10 Farm Equipment Operator managing. Ween when able (3) Anemia Plan: Hb low but stable on heparin and protonix GI following, transfuse PRN; given 1 unit 5/4 follow Hb (4) Pneumonia Plan: febrile with leukocytosis; recent sputum culture showing Pseudomonas ID following, on cefepime, Zyvox, micafungin, and tobramycin nebulizer (5) Hypothyroidism Plan: on synthroid (6) Morbid obesity (7) DVT (deep venous thrombosis) Plan: in IJ after central line placement (provoked) on heparin bridge to Coumadin , follow INR Plan patient was seen and examined. Agree with above assessment and plan. (Anshu Tan MD) Problem Qualifiers (1) Pneumonia: Qualified Code: J18.9 - Pneumonia of both lungs due to infectious organism, unspecified part of lung Genny Lowery October 04, 2016 10:09 Anshu Tan MD October 05, 2016 11:07
--- NOTE | 2016-10-04 10:25 | HHI.CCPN ---
Subjective Remarks/Hospital Course 56-year-old morbidly obese female brought in the emergency department in respiratory distress. She was intubated by ER attending. She has been sick for about a week with symptoms consistent with UTI. She's had fevers and chills. She's been short of breath. She's had fatigue. She has had a cough and chest pain with coughing. The family reports that she's been delirious for the last 3 days. 08/15 Patient is sedated with Diprivan, Versed, Fentanyl and intubated. CTA chest showed no PE multifocal consolidation greatest in RLL. Tmax 100.6 08/16 Patient is sedated with Diprivan and Fentanyl. Afebrile. CXR this morning showed increase consolidation. 08/17 Patient remains sedated and intubated. T:100.4 On PRVC/AC RR 18, Tv 500, IT :1.0 PEEP:10, FIO2 75% 08/18 Remains sedated and intubated. Afebrile. CXR this morning unchanged bibasilar infiltrates and effusions. 08/19 Patient was placed on rotoprone bed last night for proning sedated with Diprivan, Versed and Fentnayl in addition she is on Nimbex. On PRVC/AC RR 20, TV 400, IT:1.1, PEEP:14 and FIO2 80%. Afebrile. 08/20 Patient remains sedated and intubated. Remains on PRVC/AC mode with improvements in her oxygenation on FIO2 50% from 80% yesterday and PEEP:12. 08/21 Patient remains sedated and intubated. On PRVC/AC mode with RR 20, TV 400, IT:1.1, PEEP: 12 and FIO2 50%. Afebrile. 08/22 No acute events overnight. Remains sedated, intubated and on Nimbex.. T: 99.8. On PRVC mode with PEP: 12, FIO2 50%. CXR from yesterday showed better aeration, RLL infiltrate unchanged. 08/23 Chest x-ray worsening. Methylprednisolone taper to twice a day by pulmonary. The patient's FiO2 was found to be 100% this a.m., will continue to wean. 08/24: 1 desat episode yesterday when supine. still remains prone now. no vasopressors. sedated and paralyzed. 08/25: flolan added yesterday. fio2 down to 60%. remained supine all night. still on neuromuscular blockade. net -500cc/24h. 08/26: good diuresis. remained supine. fio2 70%. weaning flolan. remains with significant respiratory support and high peep despite 6L diuresis overnight. Cr still stable. 08/27: continues with good diuresis. net negative 3L/24h. fio2 down to 55%. flolan off. still high peep. not ready for SBT. more agitated today. Cr remains stable despite aggressive diuresis. 08/28: diuresis continues. -3.3L/24h. spiked fever overnight with a jump in wbc to 16 this AM. fio2 60%, but her pulmonary improvements have plateaued at this point. still on peep 12. 08/29: net -1.7L/24h. Cr starting to rise. still spiking fevers despite vanc/ cefepime added yesterday. wbc continues to rise. clinically appears infected, although unclear source. peep 10, fio2 60%. will likely need trach. 08/30: net +800cc, but Cr downtrending. appears clinically euvolemic. fever curve downtrending. wbc downtrending. on 40% fio2, peep 8 today. still following commands. 08/31: failed SBT after only 45 minutes yesterday. intubated for > 2 weeks at this point. will attempt to pursue trach/peg today. will continue with pulmonary strengthening. daily SBTs. 09/01 CXR showing increasing bibasilar infiltrate. Failed C Pap trial in 5 minutes due to severe tachypnea. PEG tube today. Family has not decided on trach yet 09/02: Patient febrile to 101.1, CXR increased infiltrate Tmax Tmax 101.1. Currently 9.7 left upper lung and right lower lobe. Pancultured. Cefepime added today and one dose of vancomycin. Continues to fail C Pap trial due to tachypnea and respiratory distress 09/03: Remains hypoxemic on 75% oxygen with new pneumonia. Sputum culture 09/02/16 with GNR. Family agreeable for tracheostomy but patient is not stable at this point for trach 09/04: still on 70% fio2. still hypoxic. pneumonia persists. needs trach, but too unstable at this point. 09/05: remains on 75% fio2. pseudomonas sensitivities came back resistant to carbapenems, intermediate to levaquin. still spiking fevers. not clinically improving. wbc remains elevated. 09/06: Remains on 12 of PEEP and FiO2 75%. Zosyn and tobramycin started yesterday. WBC count trending down today 11.5 from 13.1. Remains heavily sedated for ventilator synchrony. MAXIMUM TEMPERATURE 100.3 09/07: Continues to spike fever. CXR unchanged. WBC count improving. PEEP 14. FiO2 60%. Will start IV Bumex 1mg IV q12 09/09: Tolerating tube feeds at goal. Afebrile. No documented bowel movement. Currently sedated on the ventilator 09/10: Tmax 99.7. Currently 99.4. No bowel movement yesterday. None document since 09/04. Arousable on the ventilator 09/11: Tmax 102.6. Currently 100. Positive BM. Arousable on the ventilator. Tolerating tube feeds. Central line changed yesterday. Plan for bronchoscopy at 1 PM. 09/12: Tmax 100.1. Currently afebrile. Follows commands today. Wiggles toes and give thumbs up appropriately. MRI brain canceled. Tolerating tube feeding with positive BM. Tracheostomy currently planned for . 09/13: Tmax 102. Again on sedation [place] commands by wiggling toes bilaterally and giving thumbs up bilaterally appropriate. Tolerating tube feeding with positive BM. Tracheostomy planned for tomorrow with Dr. Ortega. 09/14: Low grade fever. CXR showing more prominent infiltrate on the right lower lobe and left upper lobe. WBC trending up still in normal range. Patient is on 40% FiO2 but continues to fail CPAP due to tachypnea 09/15: Remains intubated sedated, unable to wean off the vent. Plan for tracheostomy today with Dr. Ortega. Continues to have low grade fever. CXR with persistent bibasilar infiltrates 09/16: Tmax 101.1. Currently 100.7. Awake and alert. Following commands. 09/17: Afebrile. Currently on PSV trial. Tolerating tube feeds. One bowel movement. Noted decreased urine output past 48 hours. Diuretics have been discontinued. This a.m. creatinine currently pending. 09/18: Afebrile. Adequate urine output yesterday but decreased 150 past 8 hours. Tolerating tube feeds. One bowel movement. Not tolerating PSV trials today. 09/19: Tmax 100.5. Urine output picking up. Tolerating tube feeds. No bowel movement 48 hours. Not tolerating PSV trials. 09/20: Diffuse drug morbilliform exanthem noted this a.m. Tmax 100.6. Urine output around 20 cc an hour. Not tolerating PSV trials. Possibly new right pleural effusion noted on chest x-ray. Will need hemodialysis 09/21: Tmax 100.6 currently 98.7. -4 L with hemodialysis yesterday and today. FiO2 to 60%. Tolerating tube feeds. Positive BM. Still requiring sedation 09/22: Afebrile. Tolerating tube feeds. Positive BM. 30 g per kilogram per minute of propofol. Tolerated PSV trials 3 hours today 09/23 HD today with 3.5 L removal. Tolerating CPAP for 8 hours, currently 45% with RSBI 45%. 09/24 Called by RN this morning for concern for bloody BMs. Placed heparin and warfarin on hold. Serial Hgb ordered. Hgb 9.3 -->8.6 and hemodynamically unchanged. Started on protonix drip. Heme stool is negative and now RN states she is concerned about the adequacy of specimen, so sending repeat. Had asked GI to see, however further workup will not be indicated if hemoccult is negative. Tolerating PSV 05/06 09/25: heparin restarted. hemocult negative x 2. 09/26: no changes. still failing cpap trials. 09/27: Tmax 101.5. Currently 99.5. Resting on Diprivan drip at 25 mcg/kg/m. Currently tolerating tube feeding.. One bowel movement. 09/28: Hemoglobin trending downward. Transfusing 1 unit PRBCs with hemodialysis today. Currently afebrile. Appears comfortable ventilator 2 bowel movements 09/29 No events overnight. Sedated with Diprivan and on ventilator via trach. T: 99.9 For Perma Cath placement today. s/p HD yesterday with removal 4L and transfusion 1unit PRBC with HD. 09/30: Tmax 100.8. No events overnight. No bowel movement. Tolerating tube feeds. 10/01: Tmax 101.3. Currently resting in bed in no acute distress. Tolerating tube feeds. Chest x-ray revealed atelectasis. -5 L with hemodialysis yesterday. 10/02 Patient remains on ventilator via trach on PRVC/AC with PEEP: 10 and FIO2 50 %. T: 102.1 at 4 am. 10/03 Patient is off sedation on ventilator via trach. Tmax 101.2 last night. For HD today. Subjective 10/04: Tmax 101.5. Currently afebrile. Tolerating PSV trial. Hemodialysis - 4.5 L yesterday. Positive BM. New rash. Received chlorhexidine today. Objective Vital Signs Date Time Temp Pulse Resp B/P Pulse Ox O2 Delivery O2 Flow Rate FiO2 10/04/16 09:07 98 50 10/04/16 08:00 98.9 94 18 101/63 Intake and Output 10/03/16 10/03/16 10/04/16 08:00 16:00 00:00 Intake Total 630 ml 799 ml 1444 ml Output Total 0 ml 4500 ml 0 ml Balance 630 ml -3701 ml 1444 ml Result Diagram: 10/04/16 0416 10/04/16 0416 Other Results Microbiology Date/Time Procedure Status Source Growth 10/02/16 12:45 Urine Culture - Final Complete Urine Catheterized Urine Klebsiella Pneumoniae Esbl Pos 10/02/16 09:47 Aerobic Blood Culture - Preliminary Resulted Blood Peripheral Staphylococcus Epidermidis 10/02/16 09:47 Anaerobic Blood Culture - Preliminary Resulted Blood Peripheral NO GROWTH IN 1 DAY 10/02/16 08:30 Gram Stain - Final Resulted Sputum Endotracheal 10/02/16 08:30 Sputum Culture - Preliminary Resulted Gram Negative [facility] Last Impressions Chest X-Ray 10/04/16 0000 Signed Impressions: Service Date/Time: Tuesday, October 04, 2016 04:47 - CONCLUSION: 1. Pulmonary vascular engorgement. 2. Developing intra-alveolar infiltrate right lung base. Infectious etiology versus asymmetrical pulmonary edema. Taco Haas Jr., MD Catheter Placement X-Ray 09/29/16 1223 Signed Impressions: Service Date/Time: Thursday, September 29, 2016 12:31 - CONCLUSION: Vas-Cath to PermCath exchange as detailed above. Taco Haas Jr., MD Renal Ultrasound 09/17/16 0000 Signed Impressions: Service Date/Time: Zhang, September 17, 2016 13:31 - CONCLUSION: Negative renal sonogram. Taco Davidson MD Upper Extremity Ultrasound 09/14/16 0000 Signed Impressions: Service Date/Time: August 08:32 - CONCLUSION: There is thrombus within the left subclavian and internal jugular veins. Danyel Escalante MD Lower Extremity Ultrasound 09/13/16 0000 Signed Impressions: Service Date/Time: Tuesday, September 13, 2016 22:33 - CONCLUSION: Normal examination. Leonides Mason MD Liver Ultrasound 09/08/16 0000 Signed Impressions: Service Date/Time: Thursday, September 08, 2016 08:45 - CONCLUSION: 1. Cholelithiasis with distended gallbladder. However, there are no associated findings present to diagnose acute cholecystitis. If there is persistent clinical concern for acute cholecystitis could evaluate for cystic duct obstruction with hepatobiliary scintigraphy. 2. Hepatomegaly with very heterogeneous echotexture and steatosis. Dejan Allison MD Gall Bladder Ultrasound 08/29/16 0000 Signed Impressions: Service Date/Time: Monday, August 29, 2016 15:21 - CONCLUSION: 1. Hepatomegaly with heterogeneous echotexture throughout the liver. 2. There is a large echogenic area near the neck of the gallbladder suggestive of a stone, but despite its large size, demonstrates no acoustic shadowing in any of the views. Taco Davidson MD CT Angiography 08/15/16 0000 Signed Impressions: Service Date/Time: Monday, August 15, 2016 02:33 - CONCLUSION: 1. No evidence for pulmonary embolism. 2. Multifocal consolidation greatest in the right lower lobe and associated adenopathy. Terry Estrada MD Objective Remarks GENERAL: 56 yo female currently resting in bed mechanically ventilated SKIN: Warm and dry. Skin is flaky. Rash is returned bright red. Noted stage I to 2 decubitus ulcer\coccyx and back covered with Mepilex HEAD: Normocephalic. EYES: No scleral icterus. No injection or drainage. NECK: Neck is obese. Right subclavian hemodialysis catheters clean dry and intact. Tracheostomy is clean dry and intact CARDIOVASCULAR: RRR. S1, S2 no S4 . No murmur RESPIRATORY: Diminished breath sounds throughout due to body habitus GASTROINTESTINAL: Abdomen obese, soft, non-tender, hypoactive active bowel sounds. G-tube is clean dry and intact MUSCULOSKELETAL: Crinkling of bilateral lower extremities. 1+ edema BUE. Neuro: Awake, makes eye contact and nods to questions. Currently following commands moving upper and lower extremity spontaneously. A/P Problem List: (1) ARDS (adult respiratory distress syndrome) ICD Code: J80 Status: Acute (2) CHF (congestive heart failure) ICD Code: I50.9 Status: Acute (3) Respiratory failure ICD Code: J96.90 Status: Acute (4) Pneumonia ICD Code: J18.9 Status: Acute Assessment and Plan Neuro/Psych: Acute toxic metabolic encephalopathy Agitated delirium Off sedation. Monitor neuro status. Fentanyl allergy On Seroquel 75 mg every 8 hours and oxycodone 10 mg every 4 hours EEG 09/09 moderate to severe encephalopathy Pulm: Acute hypercapnic and hypoxemic respiratory failure ARDS Pneumonia community-acquired, now with HCAP with carbapenem-resistant pseudomonas Probable JOE PRVC 18/650/1.08/04/49, decrease FIO2 40% as tiki Ventilator bundle, check ABG CXR 10/01: Atelectasis. Suboptimal exam with no confluent infiltrates. Bronchodilator therapy every 4 hours and as needed Pulm has followed- Dr. Beck Gen surgery Dr. Ortega s/p s tracheostomy 09/15 Pulm toilet, trach care CV: Hypertension Dyslipidemia Elevated troponin - likely strain Metoprolol 12.5 mg by mouth 3 times a day Echo 08/14 showed EF 65-70% mild AR/TR On Pravachol 20 mg a night for dyslipidemia Renal/: Acute kidney injury - requiring hemodialysis Dr. Tan -nephrology following. Hemodialysis Sunday//Sunday MIKE: ATN from sepsis syndrome and diminished renal perfusion ; also aminoglycoside induced nephrotoxicity likely also contributing; possibly AIN -> per nephrology note Urine eosinophils negative. Renal ultrasound revealed no hydronephrosis Monitor renal function, I/O's, avoid nephrotoxins On Bumex 2mg IV BID nephrology HD 09/30 with planned removal 4.5L. For HD tomorrow GI: Elevated transaminases Cholelithiasis US liver: Fatty liver and cholelithiasis. Repeat 09/08 revealed cholelithiasis with no acute signs of cholecystitis. Recommend a HIDA scan if indicated On TF Nepro's 45 cc an hour and beneprotein 2 packs 3 times a day s/p PEG placement 09/01/[address] Stone Mac/Winston LopesaLAX for bowel regimen. Pepcid 20 mg liquid daily GI prophylaxis ID: Pseudomonas pneumonia Funguria, Maribell glabrata and parapsilosis. Continue with abx ( Cefepime, Tobra nebs, Micafungin, Zyvox). ID is following. Will likely switch to carbapenem Pancultured 10/03 ( Blood, sputum, urine) Monitor for signs of infections ( Fever , WBC) Pertinent cultures blood and sputum cx 08/15- NG strep pneumonia and Legionella urinary Ag negative Blood cultures 08/28: NGTD C Diff negative 08/28. Lines changed 08/28. Sputum 08/30 - Pseudomonas Sputum 09/02 PSAE, resistant to carbapenem, intermediate to Levaquin. 09/07 - urine -Maribell Guilliermondii 09/07 - blood cultures 2 - no growth 09/09 - urine -strep viridans, Maribell parapsilosis 09/10 - blood cultures 2 -no growth 09/11 - broch washings -no growth to date 09/12 - urine -Maribell glabrata and parapsilosis 09/16 - blood cultures 2 - pending 09/16 - sputum -no growth 09/16 - urine -Maribell glabrata and parapsilosis 10/02 - blood cultures 2 - staph epi 10/02 - urine - ESBL positive Klebsiella Zosyn previously discontinued secondary to rash Heme: Normocytic anemia Left IJ/subclavian nonocclusive thrombus Peripheral smear with leukoerythroblastosis - likely reactive Monitor CBC, s/p transfusion 1unit PRBC with HD 09/29 On heparin drip bridging to therapeutic INR with Warfarin 7.5 mg daily. Monitor PTT/INR Endo: Diabetes mellitus Hypothyroidism on SSI (medium scale) for glycemic control On Synthroid 200mcg daily. TSH 1.37 GI prophylaxis-Protonix 40mg Q12 DVT - Heparin gtt/Coumadin d/c heparin drip once INR>2.0 - Continue , SCDs Lines: Peripheral IV. - PEG 09/01/16 - Trach 09/15 -Right Permacath placed 09/29 Level 3 Loree Marinelli, daughter (HCP): [phone] Rony Catalanlone, significant other: [phone] Problem Qualifiers (1) CHF (congestive heart failure): Qualified Code: I50.9 - Acute congestive heart failure, unspecified congestive heart failure type (2) Respiratory failure: Qualified Code: J96.02 - Acute respiratory failure with hypercapnia (3) Pneumonia: Qualified Code: J18.9 - Pneumonia of both lungs due to infectious organism, unspecified part of lung Fadi Villa MD October 04, 2016 10:25
[2016-10-04] MEDS: MICAFUNGIN INJ 150 MG in SODIUM CHLORIDE 0.9% INJ 100 ML IV SCH (10:54)
[2016-10-04] MEDS ORDERED: MISCELLANEOUS PHARMACY INFORMATION XX PRN (11:00)
[2016-10-04] MEDS ORDERED: ASP: Path resistant to other antimicrobials, culture proven PRN (11:00)
[2016-10-04] MEDS ORDERED: diphenhydrAMINE HCL 50 MG/ML VIAL IV PUSH PRN (12:00)
--- NOTE | 2016-10-04 12:07 | HHI.PR ---
Subjective Remarks Awake and on vent support , FIO2 at 50 %. Objective Vital Signs Date Time Temp Pulse Resp B/P Pulse Ox O2 Delivery O2 Flow Rate FiO2 10/04/16 09:07 98 50 10/04/16 08:00 98.9 94 18 101/63 98 10/04/16 08:00 50 10/04/16 08:00 91 10/04/16 07:16 18 10/04/16 06:00 94 10/04/16 04:21 93 50 10/04/16 04:00 99.5 93 15 139/77 94 10/04/16 04:00 93 10/04/16 04:00 50 10/04/16 02:00 89 10/04/16 01:41 94 50 10/04/16 00:00 50 10/04/16 00:00 101.0 99 15 116/56 99 10/04/16 00:00 99 10/03/16 22:34 93 50 10/03/16 22:00 96 10/03/16 20:49 94 50 10/03/16 20:00 91 10/03/16 20:00 50 10/03/16 20:00 101.5 91 101/50 94 10/03/16 18:00 73 10/03/16 17:35 81 83/45 93 10/03/16 16:00 50 10/03/16 16:00 71 10/03/16 15:31 95 50 10/03/16 14:00 72 10/03/16 12:08 81 83/45 93 10/03/16 12:06 76 I/O 10/03/16 10/03/16 10/03/16 10/04/16 10/04/16 10/04/16 07:00 15:00 23:00 07:00 15:00 23:00 Intake Total 630 ml 799 ml 1444 ml 670 ml Output Total 0 ml 4500 ml 0 ml 0 ml Balance 630 ml -3701 ml 1444 ml 670 ml Intake Oral 0 ml 0 ml 0 ml IV Total 300 ml 424 ml 804 ml 264 ml Tube Feeding 210 ml 275 ml 540 ml 306 ml Tube Irrigant 120 ml 100 ml 100 ml 100 ml Output Urine Total 0 ml 0 ml 0 ml 0 ml Hemodialysis 4500 ml # Bowel Movements 0 0 1 2 Result Diagram: 10/04/16 0416 10/04/16 0416 Objective Remarks This is an obese middle-aged white female who is lethargic. HEENT: Head normocephalic. Pupils react. Neck: No bruits, no thyroid enlargement, no lymphadenopathy. Chest: Decreased breath sounds. Few basal crackles. Decreased breath sounds Heart: Heart sounds were regular. S1-S2 no murmur, no S3. Abdomen: Soft, benign. No masses, or tenderness. Bowel sounds are active. Extremities: 1 + edema . Neuro :Moves feet. Awake . Assessment and Plan Assessment and Plan IMPRESSION 1. Acute hypercapnic respiratory failure. 2. Pulmonary edema. 3. Drug rash 4. Obstructive sleep apnea syndrome 5. Hypertension 6. Hypothyroidism. 7. MIKE Plan : 1. Cont weaning vent and FIO2 to 45 % 2. Trach toilet and suctioning. 3. Nebs qid , duoneb. 4. A/C rate 15,and PEEP + 10. daily CPAP trial 5. Reduce sedation 6. PT evaluation 7. Tube feeds at 50 CC Abimael Beck MD October 04, 2016 12:07
[2016-10-04] MEDS ORDERED: WARFARIN SOD 7.5 MG TAB PO SCH (16:00)
[2016-10-04] MEDS: WARFARIN SOD 2.5 MG TAB PO SCH (16:29)
--- NOTE | 2016-10-04 16:46 | HHI.IDPN ---
Subjective Subjective Remarks Patient is admitted to ICU with respiratory failure, CHF, pneumonia, probable underlying COPD. Patient was intubated and placed on mechanical ventilation. NOt weaning and had trach done 09/15. Has been having fevers. s/p Rx for PSAE PNA and C glabrat UTI Overnight events reviewed. Oliguric,on HD Tues, Thurs, Sat. Remains on vent. Secretions thick, yellow, moderate. Not on pressors. On Tube feeds, tolerating. PEG tube site ok. No diarrhea Has clot in her LUE, on heparin Antibiotics Cefepime IV Linezolid IV tobramycin nebs Lines Line sites with no e.o infection. Past Medical History reviewed. Allergies: Coded Allergies: Fentanyl (Verified Adverse Reaction, Severe, rash, 09/21/16) *MDRO Multi-Drug Resistant Organism (Verified Adverse Reaction, Unknown, ) ESBL (urine)-10/02/16 Objective . Vital Signs Date Time Temp Pulse Resp B/P Pulse Ox O2 Delivery O2 Flow Rate FiO2 10/04/16 15:04 97 50 10/04/16 14:00 91 10/04/16 12:00 99.3 91 16 99/56 94 10/04/16 12:00 50 10/04/16 12:00 104 10/04/16 10:00 96 10/04/16 09:07 98 50 10/04/16 08:00 98.9 94 18 101/63 98 10/04/16 08:00 50 10/04/16 08:00 91 10/04/16 07:16 18 10/04/16 06:00 94 10/04/16 04:21 93 50 10/04/16 04:00 99.5 93 15 139/77 94 10/04/16 04:00 93 10/04/16 04:00 50 10/04/16 02:00 89 10/04/16 01:41 94 50 10/04/16 00:00 50 10/04/16 00:00 101.0 99 15 116/56 99 10/04/16 00:00 99 10/03/16 22:34 93 50 10/03/16 22:00 96 10/03/16 20:49 94 50 10/03/16 20:00 91 10/03/16 20:00 50 10/03/16 20:00 101.5 91 101/50 94 10/03/16 18:00 73 10/03/16 17:35 81 83/45 93 10/03/16 10/03/16 10/04/16 15:00 23:00 07:00 Intake Total 799 ml 1444 ml 670 ml Output Total 4500 ml 0 ml 0 ml Balance -3701 ml 1444 ml 670 ml Intake Oral 0 ml 0 ml IV Total 424 ml 804 ml 264 ml Tube Feeding 275 ml 540 ml 306 ml Tube Irrigant 100 ml 100 ml 100 ml Output Urine Total 0 ml 0 ml 0 ml Hemodialysis 4500 ml # Bowel Movements 0 1 2 . Laboratory Tests Test 10/03/16 10/04/16 04:45 04:16 White Blood Count 15.9 TH/MM3 12.4 TH/MM3 Red Blood Count 3.03 MIL/MM3 2.95 MIL/MM3 Hemoglobin 8.3 GM/DL 8.0 GM/DL Hematocrit 25.6 % 25.1 % Mean Corpuscular Volume 84.4 FL 84.9 FL Mean Corpuscular Hemoglobin 27.5 PG 27.2 PG Mean Corpuscular Hemoglobin 32.6 % 32.0 % Concent Red Cell Distribution Width 18.1 % 18.1 % Platelet Count 273 TH/MM3 259 TH/MM3 Mean Platelet Volume 7.7 FL 7.7 FL Neutrophils (%) (Auto) 79.6 % 74.1 % Lymphocytes (%) (Auto) 6.0 % 7.2 % Monocytes (%) (Auto) 4.8 % 5.3 % Eosinophils (%) (Auto) 8.6 % 12.4 % Basophils (%) (Auto) 1.0 % 1.0 % Neutrophils # (Auto) 12.6 TH/MM3 9.2 TH/MM3 Lymphocytes # (Auto) 1.0 TH/MM3 0.9 TH/MM3 Monocytes # (Auto) 0.8 TH/MM3 0.7 TH/MM3 Eosinophils # (Auto) 1.4 TH/MM3 1.5 TH/MM3 Basophils # (Auto) 0.2 TH/MM3 0.1 TH/MM3 CBC Comment AUTO DIFF AUTO DIFF Differential Total Cells 100 100 Counted Neutrophils % (Manual) 60 % 70 % Band Neutrophils % 24 % 10 % Lymphocytes % 6 % 7 % Monocytes % 1 % 5 % Eosinophils % 5 % 6 % Neutrophils # (Manual) 14.0 TH/MM3 10.2 TH/MM3 Metamyelocytes 3 % Myelocytes 1 % 2 % Differential Comment FINAL DIFF FINAL DIFF MANUAL MANUAL Platelet Estimate NORMAL Platelet Morphology Comment NORMAL Laboratory Tests Test 10/03/16 10/04/16 04:45 04:16 Sodium Level 126 MEQ/L 134 MEQ/L Potassium Level 4.0 MEQ/L 3.3 MEQ/L Chloride Level 85 MEQ/L 92 MEQ/L Carbon Dioxide Level 23.9 MEQ/L 27.5 MEQ/L Anion Gap 17 MEQ/L 15 MEQ/L Blood Urea Nitrogen 65 MG/DL 49 MG/DL Creatinine 4.11 MG/DL 3.33 MG/DL Estimat Glomerular Filtration 11 ML/MIN 14 ML/MIN Rate Random Glucose 128 MG/DL 129 MG/DL Calcium Level 9.0 MG/DL 9.0 MG/DL Phosphorus Level 4.5 MG/DL Microbiology Date/Time Procedure Status Source Growth 10/02/16 08:30 Gram Stain - Final Resulted Sputum Endotracheal 10/02/16 08:30 Sputum Culture - Preliminary Resulted Klebsiella Pneumoniae Esbl Pos Pseudomonas Species 10/02/16 09:39 Aerobic Blood Culture - Preliminary Resulted Blood Peripheral NO GROWTH IN 2 DAYS 10/02/16 09:39 Anaerobic Blood Culture - Preliminary Resulted Blood Peripheral NO GROWTH IN 2 DAYS 10/02/16 09:47 Aerobic Blood Culture - Preliminary Resulted Blood Peripheral Staphylococcus Epidermidis 10/02/16 09:47 Anaerobic Blood Culture - Preliminary Resulted Blood Peripheral NO GROWTH IN 2 DAYS 10/02/16 12:45 Urine Culture - Final Complete Urine Catheterized Urine Klebsiella Pneumoniae Esbl Pos 10/04/16 11:21 Aerobic Blood Culture Received Blood Peripheral Pending 10/04/16 11:21 Anaerobic Blood Culture Received Blood Peripheral Pending 10/04/16 11:30 Aerobic Blood Culture Received Blood Peripheral Pending 10/04/16 11:30 Anaerobic Blood Culture Received Blood Peripheral Pending Imaging Chest X-Ray 09/15/16 0600 Signed Impressions: Service Date/Time: Thursday, September 15, 2016 03:52 - CONCLUSION: Persistent and unchanged bibasilar infiltrates. Taco Haas Jr., MD Chest X-Ray 09/15/16 0000 Signed Impressions: Service Date/Time: Thursday, September 15, 2016 11:00 - CONCLUSION: Placement of tracheostomy tube otherwise not changed. aDnyel Escalante MD Liver Ultrasound 09/08/16 0000 Signed Impressions: Service Date/Time: Thursday, September 08, 2016 08:45 - CONCLUSION: 1. Cholelithiasis with distended gallbladder. However, there are no associated findings present to diagnose acute cholecystitis. If there is persistent clinical concern for acute cholecystitis could evaluate for cystic duct obstruction with hepatobiliary scintigraphy. 2. Hepatomegaly with very heterogeneous echotexture and steatosis. Dejan Allison MD Chest X-Ray 09/06/16 0000 Signed Impressions: Service Date/Time: Tuesday, September 06, 2016 11:09 - CONCLUSION: No significant change has occurred. Terry Estrada MD Gall Bladder Ultrasound 08/29/16 0000 Signed Impressions: Service Date/Time: Monday, August 29, 2016 15:21 - CONCLUSION: 1. Hepatomegaly with heterogeneous echotexture throughout the liver. 2. There is a large echogenic area near the neck of the gallbladder suggestive of a stone, but despite its large size, demonstrates no acoustic shadowing in any of the views. Taco Davidson MD CT Angiography 08/15/16 0000 Signed Impressions: Service Date/Time: Monday, August 15, 2016 02:33 - CONCLUSION: 1. No evidence for pulmonary embolism. 2. Multifocal consolidation greatest in the right lower lobe and associated adenopathy. Terry Estrada MD Physical Exam GENERAL: Morbidly obese CF patient, awake, NAD, on the vent SKIN: Has patches of redness on her trunk, and some papules in extremities HEAD: Atraumatic. Normocephalic. No temporal or scalp tenderness. EYES: Pupils equal round and reactive. No scleral icterus. Moist mucosa ENT: No nasal discharge. Dry oral mucosa NECK: Large neck. Supple. Trach in place CARDIOVASCULAR: Regular rate and rhythm RESPIRATORY: Clear to auscultation. Breath sounds equal bilaterally. GASTROINTESTINAL: Abdomen soft, obese, non-tender, nondistended. MUSCULOSKELETAL: Extremities without clubbing, cyanosis. Edema (+) NEUROLOGICAL: eyes open, did not track of focus PIV with no evidence of infection Miller in place with clear urine. Assessment & Plan Remarks Sepsis present on admission. Possible HCAP. Possible CLABSI. Morbid Obesity (BMI 45.8 kg/m2) Obstructive Sleep Apnea (supposed to be on CPAP at home and home oxygen 2L) Acute respiratory failure vent dependent. Acute metabolic encephalopathy: infection, meds. Thrombosis of cephalic vein. Renal insufficiency, now on HD Recs: DC Cefepime IV Start Meropenem IV(ASP: ESBL Kleb Pneumo) DC Zyvox IV DC Moses nebs (Moses resistant) Weaning per CCM Monitor progress Follow oscar Uriarte/Terri Stoddard RN, MD October 04, 2016 16:46
[2016-10-04] MEDS: PRAVASTATIN SOD 20 MG TAB PO SCH (21:39)
[2016-10-05] VITALS (18 sets, daily range): BP systolic 89–156; BP diastolic 52–91; PULSE 86–123; RESP 12–13; TEMP 98.9–100; O2SAT 92–97
[2016-10-05] MEDS: HEPARIN-D5W 25,000 U/250 ML 250 ML IV SCH ×2 (00:12→14:32)
[2016-10-05] MEDS: oxyCODONE HCL ORAL CONC 20 MG/ML SYRINGE G-TUBE SCH ×6 (00:13→21:15)
[2016-10-05] MEDS: CHLORHEXIDINE GLUCONATE 2 % 1 PACK (2 CLOTHS) TOP SCH (04:00)
[2016-10-05] MEDS: QUEtiapine FUMARATE 25 MG TAB PO SCH ×3 (05:02→21:16)
[2016-10-05] MEDS: METOCLOPRAMIDE HCL 10 MG/2 ML VIAL IV PUSH SCH ×3 (05:02→21:16)
[2016-10-05] MEDS: METOPROLOL TARTRATE 25 MG TAB G-TUBE SCH ×3 (05:03→14:29)
[2016-10-05] MEDS: LEVOTHYROXINE SODIUM 200 MCG TAB PO SCH (05:03)
[2016-10-05] MEDS: RESP: ALBUTEROL 2.5 MG/IPRATROPIUM 0.5 MG NEB (SCH) INH ×4 (05:27→20:32)
[2016-10-05 05:59] LABS: AUTOMATED NEUTROPHIL # 9.1 TH/MM3 (1.8-7.7); BASOPHIL # 0.1 TH/MM3 (0-0.2); BASOPHIL % 1.1 % (0.0-2.0); EOSINOPHIL # 1.2 TH/MM3 (0-0.4); EOSINOPHIL % 10.4 % (0.0-4.0); HEMATOCRIT 23.5 % (35.0-46.0); LYMPH % 7.5 % (9.0-44.0); LYMPHOCYTE # 0.9 TH/MM3 (1.0-4.8); MEAN CELL VOLUME 84.7 FL (80.0-100.0); MEAN CORPUSCULAR HEMOGLOBIN 27.6 PG (27.0-34.0); MEAN CORPUSCULAR HGB CONC 32.5 % (32.0-36.0); MONO % 4.6 % (0.0-8.0); NEUT % 76.4 % (16.0-70.0); PLATELET COUNT 243 TH/MM3 (150-450); RED BLOOD COUNT 2.77 MIL/MM3 (4.00-5.30); RED CELL DISTRIBUTION WIDTH 18.1 % (11.6-17.2); WHITE BLOOD COUNT 11.9 TH/MM3 (4.0-11.0)
[2016-10-05 06:11] LABS: HEMO FLAGS AUTO DIFF
[2016-10-05 06:26] LABS: BICARBONATE 26.9 MEQ/L (21.0-32.0); MAGNESIUM 2.2 MG/DL (1.5-2.5); POTASSIUM 3.7 MEQ/L (3.5-5.1)
[2016-10-05 06:27] LABS: APTT (PATIENT) 47.4 SEC (24.3-30.1); INTERNATIONAL NORMALIZED RATIO 1.2 RATIO; PROTHROMBIN TIME - PATIENT 13.4 SEC (9.8-11.6)
[2016-10-05 07:18] LABS: BANDS 19 % (0-6); BASOPHILS 2 % (0-2); EOSINOPHILS 9 % (0-4); POLYS (SEG NEUTROPHILS) 57 % (16-70); WBC DIFF SAMPLE 100
[2016-10-05 07:19] LABS: PLATELET ESTIMATE SMEAR NORMAL (NORMAL); PLATELET MORPHOLOGY NORMAL (NORMAL); SCAN/DIFF FINAL DIFF MANUAL
[2016-10-05] MEDS: SENNOSIDES SYRUP 8.8 MG/5 ML CUP PO SCH ×2 (08:14→21:16)
[2016-10-05] MEDS: POLYETHYLENE GLYCOL 17 GM PKG PO SCH ×2 (08:15→21:17)
[2016-10-05] MEDS: CALCIUM ACETATE 667 MG CAP PO SCH ×3 (08:15→17:45)
[2016-10-05] MEDS: DOCUSATE SODIUM 100 MG/10 ML UDC PO SCH ×2 (08:15→21:15)
[2016-10-05] MEDS: BUMETANIDE INJ 1 MG/4 ML VIAL IV PUSH SCH ×2 (08:16→17:45)
[2016-10-05] MEDS: SODIUM CHLORIDE 0.9% FLUSH 10 ML FLUSH IV FLUSH SCH ×2 (08:16→21:17)
[2016-10-05] MEDS: SODIUM CHLORIDE 0.9% FLUSH 10 ML FLUSH IVF SCH (08:16)
[2016-10-05] MEDS: EUCERIN CREAM 120 GM JAR TOPICAL SCH ×2 (08:17→21:16)
[2016-10-05] MEDS: ARTIFICIAL TEARS OPTH SOLN 15 ML BTL EACH EYE SCH ×3 (08:17→17:47)
[2016-10-05] MEDS: BENEPROTEIN POWDER 1 PACK G-TUBE SCH ×3 (08:17→18:00)
[2016-10-05] MEDS ORDERED: MEROPENEM INJ 500 MG in SODIUM CHLORIDE 0.9% INJ 100 ML IV SCH (09:00)
[2016-10-05] MEDS: MANNITOL 12.5 GM/50 ML VIAL IV PRN (09:40)
[2016-10-05] MEDS: ALBUMIN HUMAN 25% 25 GM/100 ML BAGP IV PRN (09:52)
--- NOTE | 2016-10-05 10:06 | HHI.IDPN ---
Subjective Subjective Remarks Patient is admitted to ICU with respiratory failure, CHF, pneumonia, probable underlying COPD. Patient was intubated and placed on mechanical ventilation. NOt weaning and had trach done 09/15. Has been having fevers. s/p Rx for PSAE PNA and C glabrata UTI. ID now following for ESBL HCAP. Overnight events reviewed. Low grade fevers 100 F. Oliguric,on HD Tues, Thurs, Sat. Remains on vent. Secretions thick, yellow, moderate. Not on pressors. On Tube feeds, tolerating. PEG tube site ok. No diarrhea Has clot in her LUE, on heparin Antibiotics Meropenem IV Lines Line sites with no e.o infection. Past Medical History reviewed. Allergies: Coded Allergies: Fentanyl (Verified Adverse Reaction, Severe, rash, 09/21/16) *MDRO Multi-Drug Resistant Organism (Verified Adverse Reaction, Unknown, ) ESBL (urine)-10/02/16 Objective . Vital Signs Date Time Temp Pulse Resp B/P Pulse Ox O2 Delivery O2 Flow Rate FiO2 10/05/16 08:00 105 10/05/16 08:00 98.9 105 12 106/58 96 10/05/16 08:00 50 10/05/16 07:18 96 45 10/05/16 06:00 96 10/05/16 05:27 92 50 10/05/16 04:00 100.0 92 12 95/57 96 10/05/16 04:00 92 10/05/16 04:00 50 10/05/16 02:48 12 10/05/16 02:45 95 50 10/05/16 02:00 93 10/05/16 00:00 50 10/05/16 00:00 109 10/05/16 00:00 100.0 109 89/54 97 10/04/16 22:17 91 50 10/04/16 22:00 95 10/04/16 20:00 50 10/04/16 20:00 99.5 89 94/59 90 10/04/16 20:00 89 10/04/16 18:00 91 10/04/16 16:00 50 10/04/16 16:00 103 10/04/16 16:00 100.0 87 18 132/72 95 10/04/16 15:04 97 50 10/04/16 14:00 91 10/04/16 12:00 99.3 91 16 99/56 94 10/04/16 12:00 50 10/04/16 12:00 104 10/04/16 10/04/16 10/05/16 15:00 23:00 07:00 Intake Total 1094 ml 806 ml 370 ml Output Total 0 ml Balance 1094 ml 806 ml 370 ml Intake Oral 0 ml 0 ml IV Total 495 ml 251 ml 119 ml Tube Feeding 349 ml 355 ml 151 ml Other 250 ml 200 ml 100 ml Output Urine Total 0 ml # Voids 1 0 # Bowel Movements 1 0 2 . Laboratory Tests Test 10/04/16 10/05/16 04:16 04:34 White Blood Count 12.4 TH/MM3 11.9 TH/MM3 Red Blood Count 2.95 MIL/MM3 2.77 MIL/MM3 Hemoglobin 8.0 GM/DL 7.6 GM/DL Hematocrit 25.1 % 23.5 % Mean Corpuscular Volume 84.9 FL 84.7 FL Mean Corpuscular Hemoglobin 27.2 PG 27.6 PG Mean Corpuscular Hemoglobin 32.0 % 32.5 % Concent Red Cell Distribution Width 18.1 % 18.1 % Platelet Count 259 TH/MM3 243 TH/MM3 Mean Platelet Volume 7.7 FL 7.7 FL Neutrophils (%) (Auto) 74.1 % 76.4 % Lymphocytes (%) (Auto) 7.2 % 7.5 % Monocytes (%) (Auto) 5.3 % 4.6 % Eosinophils (%) (Auto) 12.4 % 10.4 % Basophils (%) (Auto) 1.0 % 1.1 % Neutrophils # (Auto) 9.2 TH/MM3 9.1 TH/MM3 Lymphocytes # (Auto) 0.9 TH/MM3 0.9 TH/MM3 Monocytes # (Auto) 0.7 TH/MM3 0.5 TH/MM3 Eosinophils # (Auto) 1.5 TH/MM3 1.2 TH/MM3 Basophils # (Auto) 0.1 TH/MM3 0.1 TH/MM3 CBC Comment AUTO DIFF AUTO DIFF Differential Total Cells 100 100 Counted Neutrophils % (Manual) 70 % 57 % Band Neutrophils % 10 % 19 % Lymphocytes % 7 % 9 % Monocytes % 5 % 4 % Eosinophils % 6 % 9 % Neutrophils # (Manual) 10.2 TH/MM3 9.0 TH/MM3 Myelocytes 2 % Differential Comment FINAL DIFF FINAL DIFF MANUAL MANUAL Platelet Estimate NORMAL NORMAL Platelet Morphology Comment NORMAL NORMAL Basophils % 2 % Laboratory Tests Test 10/04/16 10/05/16 04:16 04:34 Sodium Level 134 MEQ/L 132 MEQ/L Potassium Level 3.3 MEQ/L 3.7 MEQ/L Chloride Level 92 MEQ/L 90 MEQ/L Carbon Dioxide Level 27.5 MEQ/L 26.9 MEQ/L Anion Gap 15 MEQ/L 15 MEQ/L Blood Urea Nitrogen 49 MG/DL 63 MG/DL Creatinine 3.33 MG/DL 4.06 MG/DL Estimat Glomerular Filtration 14 ML/MIN 11 ML/MIN Rate Random Glucose 129 MG/DL 109 MG/DL Calcium Level 9.0 MG/DL 8.9 MG/DL Phosphorus Level 3.4 MG/DL Magnesium Level 2.2 MG/DL Albumin 2.5 GM/DL Microbiology Date/Time Procedure Status Source Growth 10/02/16 12:45 Urine Culture - Final Complete Urine Catheterized Urine Klebsiella Pneumoniae Esbl Pos 10/04/16 11:21 Aerobic Blood Culture Received Blood Peripheral Pending 10/04/16 11:21 Anaerobic Blood Culture Received Blood Peripheral Pending 10/04/16 11:30 Aerobic Blood Culture Received Blood Peripheral Pending 10/04/16 11:30 Anaerobic Blood Culture Received Blood Peripheral Pending Imaging Chest X-Ray 09/15/16 0600 Signed Impressions: Service Date/Time: Thursday, September 15, 2016 03:52 - CONCLUSION: Persistent and unchanged bibasilar infiltrates. Taco Haas Jr., MD Chest X-Ray 09/15/16 0000 Signed Impressions: Service Date/Time: Thursday, September 15, 2016 11:00 - CONCLUSION: Placement of tracheostomy tube otherwise not changed. Danyel Escalante MD Liver Ultrasound 09/08/16 0000 Signed Impressions: Service Date/Time: Thursday, September 08, 2016 08:45 - CONCLUSION: 1. Cholelithiasis with distended gallbladder. However, there are no associated findings present to diagnose acute cholecystitis. If there is persistent clinical concern for acute cholecystitis could evaluate for cystic duct obstruction with hepatobiliary scintigraphy. 2. Hepatomegaly with very heterogeneous echotexture and steatosis. Dejan Allison MD Chest X-Ray 09/06/16 0000 Signed Impressions: Service Date/Time: Tuesday, September 06, 2016 11:09 - CONCLUSION: No significant change has occurred. Terry Estrada MD Gall Bladder Ultrasound 08/29/16 0000 Signed Impressions: Service Date/Time: Monday, August 29, 2016 15:21 - CONCLUSION: 1. Hepatomegaly with heterogeneous echotexture throughout the liver. 2. There is a large echogenic area near the neck of the gallbladder suggestive of a stone, but despite its large size, demonstrates no acoustic shadowing in any of the views. Taco Davidson MD CT Angiography 08/15/16 0000 Signed Impressions: Service Date/Time: Monday, August 15, 2016 02:33 - CONCLUSION: 1. No evidence for pulmonary embolism. 2. Multifocal consolidation greatest in the right lower lobe and associated adenopathy. Terry Estrada MD Physical Exam GENERAL: Morbidly obese CF patient, awake, NAD, on the vent SKIN: Has patches of redness on her trunk, and some papules in extremities HEAD: Atraumatic. Normocephalic. No temporal or scalp tenderness. EYES: Pupils equal round and reactive. No scleral icterus. Moist mucosa ENT: No nasal discharge. Dry oral mucosa NECK: Large neck. Supple. Trach in place CARDIOVASCULAR: Regular rate and rhythm RESPIRATORY: Clear to auscultation. Breath sounds equal bilaterally. GASTROINTESTINAL: Abdomen soft, obese, non-tender, nondistended. MUSCULOSKELETAL: Extremities without clubbing, cyanosis. Edema (+) NEUROLOGICAL: eyes open, did not track of focus PIV with no evidence of infection Miller in place with clear urine. Assessment & Plan Remarks Sepsis present on admission. HCAP: ESBL and very MDR PSAE Staph epidermidis: possible contaminant but will repeat HD cath culture. Morbid Obesity (BMI 45.8 kg/m2) Obstructive Sleep Apnea (supposed to be on CPAP at home and home oxygen 2L) Acute respiratory failure vent dependent. Acute metabolic encephalopathy: infection, meds. Thrombosis of cephalic vein. Renal insufficiency, now on HD Recs: DC Meropenem IV Start Zerbaxa IV (ASP: MDR PSAE resistant to carbapenem, fevers persistent) Vanco IV x 1 dose today. Blood culture 1 from HD cath and 1 from periphery. Weaning per CCM Monitor progress Follow temps D/W RN d/w Micro: MDR PSAE resistant to aminoglyco, Carbapenems. Special contact A isolation, Recommend [facility] room on discharge. d.w Clinical pharmacist. Terri Uribe MD October 05, 2016 10:06
--- NOTE | 2016-10-05 10:11 | HHI.NPPN ---
Subjective General Problems: Edema, Hypotension, Obesity Renal Failure: Acute Interval History Seen during dialysis. She continues to have tremors. Edematous and anuric. ( Genny Lowery) Review of Systems General Constitutional: Fever General Remarks unable to evaluate (Genny Lowery) Objective Data Data 10/04/16 10/05/16 19:00 07:00 Intake Total 1094 ml 1176 ml Output Total 0 ml Balance 1094 ml 1176 ml Intake Oral 0 ml IV Total 495 ml 370 ml Tube Feeding 349 ml 506 ml Other 250 ml 300 ml Output Urine Total 0 ml # Voids 1 # Bowel Movements 1 2 Vital Signs Date Time Temp Pulse Resp B/P Pulse Ox O2 Delivery O2 Flow Rate FiO2 10/05/16 08:00 105 10/05/16 08:00 98.9 105 12 106/58 96 10/05/16 08:00 50 10/05/16 07:18 96 45 10/05/16 06:00 96 10/05/16 05:27 92 50 10/05/16 04:00 100.0 92 12 95/57 96 10/05/16 04:00 92 10/05/16 04:00 50 10/05/16 02:48 12 10/05/16 02:45 95 50 10/05/16 02:00 93 10/05/16 00:00 50 10/05/16 00:00 109 10/05/16 00:00 100.0 109 89/54 97 10/04/16 22:17 91 50 10/04/16 22:00 95 10/04/16 20:00 50 10/04/16 20:00 99.5 89 94/59 90 10/04/16 20:00 89 10/04/16 18:00 91 10/04/16 16:00 50 10/04/16 16:00 103 10/04/16 16:00 100.0 87 18 132/72 95 10/04/16 15:04 97 50 10/04/16 14:00 91 10/04/16 12:00 99.3 91 16 99/56 94 10/04/16 12:00 50 10/04/16 12:00 104 (Genny Lowery) -: 10/05/16 0434 10/05/16 0434 Microbiology 10/04/16 Aerobic Blood Culture, Received Pending 10/04/16 Anaerobic Blood Culture, Received Pending 10/04/16 Aerobic Blood Culture, Received Pending 10/04/16 Anaerobic Blood Culture, Received Pending Imaging Last 72 hours Impressions Chest X-Ray 10/04/16 0000 Signed Impressions: Service Date/Time: Tuesday, October 04, 2016 04:47 - CONCLUSION: 1. Pulmonary vascular engorgement. 2. Developing intra-alveolar infiltrate right lung base. Infectious etiology versus asymmetrical pulmonary edema. Taco Haas Jr., MD Tubes & Lines: Perma-Cath Tubes & Lines Comment trach, PEG Drip Comment heparin only (Genny Lowery) Physical Exam General Appearance: No Acute Distress, Comfortable, Obese Appearance Remarks eyes open with blank stare, tracks with eyes (Genny Lowery) Throat Throat Exam: Oral Mucosa [place] & Moist Throat Remarks increased secretions from trach and oropharynx (Genny Lowery) Neck Neck Exam: Neck Supple Neck Remarks trach (Genny Lowery) Pulmonary Resp Exam: Rhonchi, Sputum, Diminished Breath Sounds Resp Remarks vented lung sounds clear in upper palafox (Genny Lowery) Cardiology CV Exam: Regular, Normal Sinus Rhythm, Good Perfusion (Genny Lowery) Gastrointestinal/Abdomen GI Exam: Soft, Bowel Sounds Present, Distended GI Remarks morbidly obese, + PEG infusing (Genny Lowery) Musculoskeletal MS Exam: Joints Intact (Genny Lowery) Integumentary Skin Exam: Warm, Dry Skin Remarks flaking/peeling skin (Genny Lowery) Extremeties Extremities Exam: Moderate Edema, Pitting Edema, Dependent Edema (Genny Lowery) Neurologic Neuro Exam: Awake Neuro Remarks awake but unresponsive muscle fasiculation in all 4 extremities, eye twitching (Genny Lowery) VTE Prophylaxis Device: SCDs (Genny Lowery) Assessment/Plan Assessment Summary: MIKE/Acute Renal Failure, Acute Tubular Necrosis, Fluid/ Volume Overload Electrolyte Assessment: Hyponatremia Problem List: (1) Acute kidney injury Plan: In a pt with normal renal function at baseline oliguric renal failure, ATN, she is anuric HD initiated 09/20; she is dialysis dependent and currently on TTS schedule (due tomorrow) PermCath for dialysis, seen during treatment today on a 3K, 400 BFR, goal 4L as tolerated K has normalized continue Nepro tube feeding ,avoid free water flushes due to hyponatremia; continue PhosLo for hyperphosphatemia continue Bumex BID IV Avoid nephrotoxic agents. Avoid IVF await signs of renal recovery, Continue supportive care. 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 Sanaz when able (3) Anemia Plan: Hb is dropping, no acute bleeding identified on heparin and protonix GI following, transfuse PRN; given 1 unit 5/4 follow Hb (4) Pneumonia Plan: febrile with leukocytosis; recent sputum culture showing Pseudomonas and Klebsiella ID following, Abx changed to include Meropenem only on contact isolation (5) Hypothyroidism Plan: on synthroid (6) Morbid obesity (7) DVT (deep venous thrombosis) Plan: in IJ after central line placement (provoked) on heparin bridge to Coumadin , follow INR (Genny Lowery) Plan patient was seen and examined. Seen during dialysis. On 3K, UF goal is 4 liters. BP dropped, but now more stable. (Anshu Tan MD) Problem Qualifiers (1) Pneumonia: Qualified Code: J18.9 - Pneumonia of both lungs due to infectious organism, unspecified part of lung Genny Lowery October 05, 2016 10:10 Anshu Tan MD October 05, 2016 14:27
[2016-10-05] MEDS: PANTOPRAZOLE SODIUM 40 MG VIAL IV PUSH SCH ×2 (11:00→22:57)
[2016-10-05] MEDS ORDERED: CEFTOLOZANE-TAZOBACTAM INJ 750 MG in SODIUM CHLORIDE 0.9% INJ 100 ML IV ONE (11:30)
[2016-10-05] MEDS ORDERED: VANCOMYCIN INJ 2,000 MG in SODIUM CHLORID 0.9% 500 ML INJ 500 ML IV ONE (12:00)
[2016-10-05] MEDS ORDERED: CEFTOLOZANE-TAZOBACTAM INJ 150 MG in SODIUM CHLORIDE 0.9% INJ 100 ML IV SCH (12:00)
[2016-10-05] MEDS: HEPARIN SODIUM - IV 10,000 UNITS/10 ML VIAL PRN (12:33)
[2016-10-05] MEDS: GENTAMICIN SULFATE (DIALYSIS USE ONLY) 20 MG/2 ML VIAL IV PRN (12:33)
--- NOTE | 2016-10-05 13:49 | HHI.CCPN ---
Subjective Remarks/Hospital Course 56-year-old morbidly obese female brought in the emergency department in respiratory distress. She was intubated by ER attending. She has been sick for about a week with symptoms consistent with UTI. She's had fevers and chills. She's been short of breath. She's had fatigue. She has had a cough and chest pain with coughing. The family reports that she's been delirious for the last 3 days. 08/15 Patient is sedated with Diprivan, Versed, Fentanyl and intubated. CTA chest showed no PE multifocal consolidation greatest in RLL. Tmax 100.6 08/16 Patient is sedated with Diprivan and Fentanyl. Afebrile. CXR this morning showed increase consolidation. 08/17 Patient remains sedated and intubated. T:100.4 On PRVC/AC RR 18, Tv 500, IT :1.0 PEEP:10, FIO2 75% 08/18 Remains sedated and intubated. Afebrile. CXR this morning unchanged bibasilar infiltrates and effusions. 08/19 Patient was placed on rotoprone bed last night for proning sedated with Diprivan, Versed and Fentnayl in addition she is on Nimbex. On PRVC/AC RR 20, TV 400, IT:1.1, PEEP:14 and FIO2 80%. Afebrile. 08/20 Patient remains sedated and intubated. Remains on PRVC/AC mode with improvements in her oxygenation on FIO2 50% from 80% yesterday and PEEP:12. 08/21 Patient remains sedated and intubated. On PRVC/AC mode with RR 20, TV 400, IT:1.1, PEEP: 12 and FIO2 50%. Afebrile. 08/22 No acute events overnight. Remains sedated, intubated and on Nimbex.. T: 99.8. On PRVC mode with PEP: 12, FIO2 50%. CXR from yesterday showed better aeration, RLL infiltrate unchanged. 08/23 Chest x-ray worsening. Methylprednisolone taper to twice a day by pulmonary. The patient's FiO2 was found to be 100% this a.m., will continue to wean. 08/24: 1 desat episode yesterday when supine. still remains prone now. no vasopressors. sedated and paralyzed. 08/25: flolan added yesterday. fio2 down to 60%. remained supine all night. still on neuromuscular blockade. net -500cc/24h. 08/26: good diuresis. remained supine. fio2 70%. weaning flolan. remains with significant respiratory support and high peep despite 6L diuresis overnight. Cr still stable. 08/27: continues with good diuresis. net negative 3L/24h. fio2 down to 55%. flolan off. still high peep. not ready for SBT. more agitated today. Cr remains stable despite aggressive diuresis. 08/28: diuresis continues. -3.3L/24h. spiked fever overnight with a jump in wbc to 16 this AM. fio2 60%, but her pulmonary improvements have plateaued at this point. still on peep 12. 08/29: net -1.7L/24h. Cr starting to rise. still spiking fevers despite vanc/ cefepime added yesterday. wbc continues to rise. clinically appears infected, although unclear source. peep 10, fio2 60%. will likely need trach. 08/30: net +800cc, but Cr downtrending. appears clinically euvolemic. fever curve downtrending. wbc downtrending. on 40% fio2, peep 8 today. still following commands. 08/31: failed SBT after only 45 minutes yesterday. intubated for > 2 weeks at this point. will attempt to pursue trach/peg today. will continue with pulmonary strengthening. daily SBTs. 09/01 CXR showing increasing bibasilar infiltrate. Failed C Pap trial in 5 minutes due to severe tachypnea. PEG tube today. Family has not decided on trach yet 09/02: Patient febrile to 101.1, CXR increased infiltrate Tmax Tmax 101.1. Currently 9.7 left upper lung and right lower lobe. Pancultured. Cefepime added today and one dose of vancomycin. Continues to fail C Pap trial due to tachypnea and respiratory distress 09/03: Remains hypoxemic on 75% oxygen with new pneumonia. Sputum culture 09/02/16 with GNR. Family agreeable for tracheostomy but patient is not stable at this point for trach 09/04: still on 70% fio2. still hypoxic. pneumonia persists. needs trach, but too unstable at this point. 09/05: remains on 75% fio2. pseudomonas sensitivities came back resistant to carbapenems, intermediate to levaquin. still spiking fevers. not clinically improving. wbc remains elevated. 09/06: Remains on 12 of PEEP and FiO2 75%. Zosyn and tobramycin started yesterday. WBC count trending down today 11.5 from 13.1. Remains heavily sedated for ventilator synchrony. MAXIMUM TEMPERATURE 100.3 09/07: Continues to spike fever. CXR unchanged. WBC count improving. PEEP 14. FiO2 60%. Will start IV Bumex 1mg IV q12 09/09: Tolerating tube feeds at goal. Afebrile. No documented bowel movement. Currently sedated on the ventilator 09/10: Tmax 99.7. Currently 99.4. No bowel movement yesterday. None document since 09/04. Arousable on the ventilator 09/11: Tmax 102.6. Currently 100. Positive BM. Arousable on the ventilator. Tolerating tube feeds. Central line changed yesterday. Plan for bronchoscopy at 1 PM. 09/12: Tmax 100.1. Currently afebrile. Follows commands today. Wiggles toes and give thumbs up appropriately. MRI brain canceled. Tolerating tube feeding with positive BM. Tracheostomy currently planned for . 09/13: Tmax 102. Again on sedation [place] commands by wiggling toes bilaterally and giving thumbs up bilaterally appropriate. Tolerating tube feeding with positive BM. Tracheostomy planned for tomorrow with Dr. Ortega. 09/14: Low grade fever. CXR showing more prominent infiltrate on the right lower lobe and left upper lobe. WBC trending up still in normal range. Patient is on 40% FiO2 but continues to fail CPAP due to tachypnea 09/15: Remains intubated sedated, unable to wean off the vent. Plan for tracheostomy today with Dr. Ortega. Continues to have low grade fever. CXR with persistent bibasilar infiltrates 09/16: Tmax 101.1. Currently 100.7. Awake and alert. Following commands. 09/17: Afebrile. Currently on PSV trial. Tolerating tube feeds. One bowel movement. Noted decreased urine output past 48 hours. Diuretics have been discontinued. This a.m. creatinine currently pending. 09/18: Afebrile. Adequate urine output yesterday but decreased 150 past 8 hours. Tolerating tube feeds. One bowel movement. Not tolerating PSV trials today. 09/19: Tmax 100.5. Urine output picking up. Tolerating tube feeds. No bowel movement 48 hours. Not tolerating PSV trials. 09/20: Diffuse drug morbilliform exanthem noted this a.m. Tmax 100.6. Urine output around 20 cc an hour. Not tolerating PSV trials. Possibly new right pleural effusion noted on chest x-ray. Will need hemodialysis 09/21: Tmax 100.6 currently 98.7. -4 L with hemodialysis yesterday and today. FiO2 to 60%. Tolerating tube feeds. Positive BM. Still requiring sedation 09/22: Afebrile. Tolerating tube feeds. Positive BM. 30 g per kilogram per minute of propofol. Tolerated PSV trials 3 hours today 09/23 HD today with 3.5 L removal. Tolerating CPAP for 8 hours, currently 45% with RSBI 45%. 09/24 Called by RN this morning for concern for bloody BMs. Placed heparin and warfarin on hold. Serial Hgb ordered. Hgb 9.3 -->8.6 and hemodynamically unchanged. Started on protonix drip. Heme stool is negative and now RN states she is concerned about the adequacy of specimen, so sending repeat. Had asked GI to see, however further workup will not be indicated if hemoccult is negative. Tolerating PSV 05/06 09/25: heparin restarted. hemocult negative x 2. 09/26: no changes. still failing cpap trials. 09/27: Tmax 101.5. Currently 99.5. Resting on Diprivan drip at 25 mcg/kg/m. Currently tolerating tube feeding.. One bowel movement. 09/28: Hemoglobin trending downward. Transfusing 1 unit PRBCs with hemodialysis today. Currently afebrile. Appears comfortable ventilator 2 bowel movements 09/29 No events overnight. Sedated with Diprivan and on ventilator via trach. T: 99.9 For Perma Cath placement today. s/p HD yesterday with removal 4L and transfusion 1unit PRBC with HD. 09/30: Tmax 100.8. No events overnight. No bowel movement. Tolerating tube feeds. 10/01: Tmax 101.3. Currently resting in bed in no acute distress. Tolerating tube feeds. Chest x-ray revealed atelectasis. -5 L with hemodialysis yesterday. 10/02 Patient remains on ventilator via trach on PRVC/AC with PEEP: 10 and FIO2 50 %. T: 102.1 at 4 am. 10/03 Patient is off sedation on ventilator via trach. Tmax 101.2 last night. For HD today. 10/04: Tmax 101.5. Currently afebrile. Tolerating PSV trial. Hemodialysis - 4.5 L yesterday. Positive BM. New rash. Received chlorhexidine today. Subjective 10/05: Tmax 100. Currently 98.9. Positive BM. Tolerating tube feeds. Less erythematous today. Currently on dialysis Objective Vital Signs Date Time Temp Pulse Resp B/P Pulse Ox O2 Delivery O2 Flow Rate FiO2 10/05/16 12:00 50 10/05/16 12:00 99.7 123 12 156/91 97 Intake and Output 10/04/16 10/04/16 10/05/16 08:00 16:00 00:00 Intake Total 670 ml 1094 ml 806 ml Output Total 0 ml 0 ml Balance 670 ml 1094 ml 806 ml Result Diagram: 10/05/16 0434 10/05/16 0434 Other Results Microbiology Date/Time Procedure Status Source Growth 10/05/16 10:26 Aerobic Blood Culture Received Blood Peripheral Pending 10/05/16 10:26 Anaerobic Blood Culture Received Blood Peripheral Pending 10/04/16 11:30 Aerobic Blood Culture - Preliminary Resulted Blood Peripheral NO GROWTH IN 1 DAY 10/04/16 11:30 Anaerobic Blood Culture - Preliminary Resulted Blood Peripheral NO GROWTH IN 1 DAY 10/02/16 12:45 Urine Culture - Final Complete Urine Catheterized Urine Klebsiella Pneumoniae Esbl Pos 10/02/16 09:47 Aerobic Blood Culture - Final Resulted Blood Peripheral Staphylococcus Epidermidis 10/02/16 09:47 Anaerobic Blood Culture - Preliminary Resulted Blood Peripheral NO GROWTH IN 3 DAYS 10/02/16 08:30 Gram Stain - Final Resulted Sputum Endotracheal 10/02/16 08:30 Sputum Culture - Preliminary Resulted Klebsiella Pneumoniae Esbl Pos Pseudomonas Aeruginosa Imaging Last Impressions Chest X-Ray 10/04/16 0000 Signed Impressions: Service Date/Time: Tuesday, October 04, 2016 04:47 - CONCLUSION: 1. Pulmonary vascular engorgement. 2. Developing intra-alveolar infiltrate right lung base. Infectious etiology versus asymmetrical pulmonary edema. Taco Haas Jr., MD Catheter Placement X-Ray 09/29/16 1223 Signed Impressions: Service Date/Time: Thursday, September 29, 2016 12:31 - CONCLUSION: Vas-Cath to PermCath exchange as detailed above. Taco Haas Jr., MD Renal Ultrasound 09/17/16 0000 Signed Impressions: Service Date/Time: Saturday, September 17, 2016 13:31 - CONCLUSION: Negative renal sonogram. Taco Davidson MD Upper Extremity Ultrasound 09/14/16 0000 Signed Impressions: Service Date/Time: August 08:32 - CONCLUSION: There is thrombus within the left subclavian and internal jugular veins. Danyel Escalante MD Lower Extremity Ultrasound 09/13/16 0000 Signed Impressions: Service Date/Time: Tuesday, September 13, 2016 22:33 - CONCLUSION: Normal examination. Leonides Mason MD Liver Ultrasound 09/08/16 0000 Signed Impressions: Service Date/Time: Thursday, September 08, 2016 08:45 - CONCLUSION: 1. Cholelithiasis with distended gallbladder. However, there are no associated findings present to diagnose acute cholecystitis. If there is persistent clinical concern for acute cholecystitis could evaluate for cystic duct obstruction with hepatobiliary scintigraphy. 2. Hepatomegaly with very heterogeneous echotexture and steatosis. Dejan Allison MD Gall Bladder Ultrasound 08/29/16 0000 Signed Impressions: Service Date/Time: Monday, August 29, 2016 15:21 - CONCLUSION: 1. Hepatomegaly with heterogeneous echotexture throughout the liver. 2. There is a large echogenic area near the neck of the gallbladder suggestive of a stone, but despite its large size, demonstrates no acoustic shadowing in any of the views. Taco Davidson MD CT Angiography 08/15/16 0000 Signed Impressions: Service Date/Time: Monday, August 15, 2016 02:33 - CONCLUSION: 1. No evidence for pulmonary embolism. 2. Multifocal consolidation greatest in the right lower lobe and associated adenopathy. Terry Estrada MD Objective Remarks GENERAL: 56 yo female currently resting in bed mechanically ventilated SKIN: Warm and dry. Skin is flaky. Rash much improved/less erythematous. Noted stage I to 2 decubitus ulcer\coccyx and back covered with Mepilex HEAD: Normocephalic. EYES: No scleral icterus. No injection or drainage. NECK: Neck is obese. Right subclavian hemodialysis catheters clean dry and intact. Tracheostomy is clean dry and intact CARDIOVASCULAR: RRR. S1, S2 no S4 . No murmur RESPIRATORY: Diminished breath sounds throughout due to body habitus GASTROINTESTINAL: Abdomen obese, soft, non-tender, hypoactive active bowel sounds. G-tube is clean dry and intact MUSCULOSKELETAL: Crinkling of bilateral lower extremities. 1+ edema BUE. Neuro: Awake, makes eye contact and nods to questions. Currently following commands moving upper and lower extremity spontaneously. A/P Problem List: (1) ARDS (adult respiratory distress syndrome) ICD Code: J80 Status: Acute (2) CHF (congestive heart failure) ICD Code: I50.9 Status: Acute (3) Respiratory failure ICD Code: J96.90 Status: Acute (4) Pneumonia ICD Code: J18.9 Status: Acute Assessment and Plan Neuro/Psych: Acute toxic metabolic encephalopathy Agitated delirium Off sedation. Monitor neuro status. Fentanyl allergy On Seroquel 75 mg every 8 hours and oxycodone 10 mg every 4 hours EEG 09/09 moderate to severe encephalopathy Pulm: Acute hypercapnic and hypoxemic respiratory failure ARDS Pneumonia community-acquired, now with HCAP with carbapenem-resistant pseudomonas Probable JOE PRVC /1.08/02/44, decrease FIO2 40% as tiki Ventilator bundle. Bronchodilator therapy every 4 hours and as needed Pulm has followed- Dr. Beck Gen surgery Dr. Ortega s/p s tracheostomy 09/15 Pulm toilet, trach care CV: Hypertension Dyslipidemia Elevated troponin - likely strain Metoprolol 12.5 mg by mouth 3 times a day Echo 08/14 showed EF 65-70% mild AR/TR On Pravachol 20 mg a night for dyslipidemia Renal/: Acute kidney injury - requiring hemodialysis Dr. Tan -nephrology following. Hemodialysis Sunday//Sunday MIKE: ATN from sepsis syndrome and diminished renal perfusion ; also aminoglycoside induced nephrotoxicity likely also contributing; possibly AIN -> per nephrology note Urine eosinophils negative. Renal ultrasound revealed no hydronephrosis Monitor renal function, I/O's, avoid nephrotoxins On Bumex 2mg IV BID nephrology HD 09/30 with planned removal 5 L today GI: Elevated transaminases Cholelithiasis US liver: Fatty liver and cholelithiasis. Repeat 09/08 revealed cholelithiasis with no acute signs of cholecystitis. Recommend a HIDA scan if indicated On TF Nepro's 45 cc an hour and beneprotein 2 packs 3 times a day s/p PEG placement 09/01/[address] Stone Mac/Lucero Lopes for bowel regimen. Pepcid 20 mg liquid daily GI prophylaxis ID: Pseudomonas pneumonia Funguria, Maribell glabrata and parapsilosis. Continue with abx (Zerbaxa, vancomycin). ID is following. Pertinent cultures blood and sputum cx 08/15- NG strep pneumonia and Legionella urinary Ag negative Blood cultures 08/28: NGTD C Diff negative 08/28. Lines changed 08/28. Sputum 08/30 - Pseudomonas Sputum 09/02 PSAE, resistant to carbapenem, intermediate to Levaquin. 09/07 - urine -Maribell Guilliermondii 09/07 - blood cultures 2 - no growth 09/09 - urine -strep viridans, Maribell parapsilosis 09/10 - blood cultures 2 -no growth 09/11 - broch washings -no growth to date 09/12 - urine -Maribell glabrata and parapsilosis 09/16 - blood cultures 2 - pending 09/16 - sputum -no growth 09/16 - urine -Maribell glabrata and parapsilosis 10/02 - blood cultures 2 - staph epi 10/02 - urine - ESBL positive Klebsiella 10/04 - blood cultures 2 - pending 10/05 - blood cultures 2 - pending Zosyn previously discontinued secondary to rash Heme: Normocytic anemia Left IJ/subclavian nonocclusive thrombus Peripheral smear with leukoerythroblastosis - likely reactive Monitor CBC, s/p transfusion 1unit PRBC with HD 09/29 On heparin drip bridging to therapeutic INR with Warfarin 7.5 mg daily. Monitor PTT/INR INR currently 1.2 Endo: Diabetes mellitus Hypothyroidism on SSI (medium scale) for glycemic control On Synthroid 200mcg daily. TSH 1.37 GI prophylaxis-Protonix 40mg Q12 DVT - Heparin gtt/Coumadin d/c heparin drip once INR>2.0 - Continue , SCDs Lines: Peripheral IV. - PEG 09/01/16 - Trach 09/15 -Right Permacath placed 09/29 Level 3 oLree Marinelli, daughter (HCP): [phone] Rony Marinelli, significant other: [phone] Problem Qualifiers (1) CHF (congestive heart failure): Qualified Code: I50.9 - Acute congestive heart failure, unspecified congestive heart failure type (2) Respiratory failure: Qualified Code: J96.02 - Acute respiratory failure with hypercapnia (3) Pneumonia: Qualified Code: J18.9 - Pneumonia of both lungs due to infectious organism, unspecified part of lung Fadi Villa MD October 05, 2016 13:49
[2016-10-05] MEDS ORDERED: WARFARIN SOD 7.5 MG TAB PO SCH (16:00)
[2016-10-05] MEDS: WARFARIN SOD 2.5 MG TAB PO SCH (17:46)
[2016-10-05] MEDS: PRAVASTATIN SOD 20 MG TAB PO SCH (21:16)
[2016-10-05] MEDS: CEFTOLOZANE-TAZOBACTAM INJ 150 MG in SODIUM CHLORIDE 0.9% INJ 100 ML IV SCH (21:17)
[2016-10-06] VITALS (18 sets, daily range): BP systolic 103–128; BP diastolic 57–80; PULSE 86–106; RESP 12–16; TEMP 98.1–99.9; O2SAT 92–100
[2016-10-06] MEDS: HEPARIN-D5W 25,000 U/250 ML 250 ML IV SCH ×3 (00:24→22:28)
[2016-10-06] MEDS: RESP: ALBUTEROL 2.5 MG/IPRATROPIUM 0.5 MG NEB (SCH) INH ×4 (03:26→19:40)
[2016-10-06] MEDS: CHLORHEXIDINE GLUCONATE 2 % 1 PACK (2 CLOTHS) TOP SCH (04:00)
[2016-10-06] MEDS: CEFTOLOZANE-TAZOBACTAM INJ 150 MG in SODIUM CHLORIDE 0.9% INJ 100 ML IV SCH ×3 (04:16→19:31)
[2016-10-06] MEDS: oxyCODONE HCL ORAL CONC 20 MG/ML SYRINGE G-TUBE SCH ×6 (04:16→23:32)
[2016-10-06] MEDS: QUEtiapine FUMARATE 25 MG TAB PO SCH ×3 (05:07→22:10)
[2016-10-06] MEDS: LEVOTHYROXINE SODIUM 200 MCG TAB PO SCH (05:08)
[2016-10-06] MEDS: METOPROLOL TARTRATE 25 MG TAB G-TUBE SCH ×3 (05:08→22:00)
[2016-10-06] MEDS: METOCLOPRAMIDE HCL 10 MG/2 ML VIAL IV PUSH SCH ×3 (05:08→22:10)
[2016-10-06 06:57] LABS: AUTOMATED NEUTROPHIL # 10.3 TH/MM3 (1.8-7.7); BASOPHIL # 0.1 TH/MM3 (0-0.2); EOSINOPHIL # 1.1 TH/MM3 (0-0.4); HEMATOCRIT 23.5 % (35.0-46.0); LYMPH % 7.4 % (9.0-44.0); MEAN CELL VOLUME 84.7 FL (80.0-100.0); MEAN CORPUSCULAR HEMOGLOBIN 27.3 PG (27.0-34.0); MEAN CORPUSCULAR HGB CONC 32.2 % (32.0-36.0); MONO % 5.7 % (0.0-8.0); NEUT % 77.9 % (16.0-70.0); PLATELET COUNT 272 TH/MM3 (150-450); RED BLOOD COUNT 2.78 MIL/MM3 (4.00-5.30); RED CELL DISTRIBUTION WIDTH 18.5 % (11.6-17.2); WHITE BLOOD COUNT 13.2 TH/MM3 (4.0-11.0)
[2016-10-06 07:01] LABS: HEMO FLAGS AUTO DIFF
[2016-10-06 07:09] LABS: APTT (PATIENT) 70.6 SEC (24.3-30.1)
[2016-10-06 07:13] LABS: INTERNATIONAL NORMALIZED RATIO 1.5 RATIO; PROTHROMBIN TIME - PATIENT 16.5 SEC (9.8-11.6)
[2016-10-06 07:31] LABS: BICARBONATE 26.4 MEQ/L (21.0-32.0); POTASSIUM 3.7 MEQ/L (3.5-5.1)
[2016-10-06 07:53] LABS: BANDS 12 % (0-6); EOSINOPHILS 13 % (0-4); MYELOCYTES 2 % (0-0); NEUTROPHIL # MANUAL DIFF 10.6 TH/MM3 (1.8-7.7); POLYS (SEG NEUTROPHILS) 66 % (16-70); WBC DIFF SAMPLE 100
[2016-10-06 07:54] LABS: PLATELET ESTIMATE SMEAR NORMAL (NORMAL); PLATELET MORPHOLOGY NORMAL (NORMAL); SCAN/DIFF FINAL DIFF MANUAL
[2016-10-06] MEDS: BUMETANIDE INJ 1 MG/4 ML VIAL IV PUSH SCH (08:01)
[2016-10-06] MEDS: DOCUSATE SODIUM 100 MG/10 ML UDC PO SCH ×2 (08:01→20:17)
[2016-10-06] MEDS: POLYETHYLENE GLYCOL 17 GM PKG PO SCH ×2 (08:01→20:17)
[2016-10-06] MEDS: SODIUM CHLORIDE 0.9% FLUSH 10 ML FLUSH IV FLUSH SCH ×2 (08:02→20:10)
[2016-10-06] MEDS: SENNOSIDES SYRUP 8.8 MG/5 ML CUP PO SCH ×2 (08:02→20:17)
[2016-10-06] MEDS: ARTIFICIAL TEARS OPTH SOLN 15 ML BTL EACH EYE SCH ×3 (08:06→17:55)
[2016-10-06] MEDS: CALCIUM ACETATE 667 MG CAP PO SCH ×3 (08:06→17:55)
[2016-10-06] MEDS: BENEPROTEIN POWDER 1 PACK G-TUBE SCH ×3 (09:00→17:56)
[2016-10-06] MEDS: EUCERIN CREAM 120 GM JAR TOPICAL SCH ×2 (09:00→20:18)
[2016-10-06] MEDS: PANTOPRAZOLE SODIUM 40 MG VIAL IV PUSH SCH ×2 (10:19→22:11)
[2016-10-06] MEDS: SODIUM CHLORIDE 0.9% FLUSH 10 ML FLUSH IVF SCH (10:22)
--- NOTE | 2016-10-06 10:28 | HHI.IDPN ---
Subjective Subjective Remarks Patient is admitted to ICU with respiratory failure, CHF, pneumonia, probable underlying COPD. Patient was intubated and placed on mechanical ventilation. NOt weaning and had trach done 09/15. Has been having fevers. s/p Rx for PSAE PNA and C glabrata UTI. ID now following for ESBL HCAP. Overnight events reviewed. Low grade fevers 100 F. defervescing. Oliguric,on HD Tues, Thurs, Sat. Remains on vent. Secretions thick, yellow, moderate. Not on pressors. On Tube feeds, tolerating. PEG tube site ok. No diarrhea Has clot in her LUE, on heparin Antibiotics Zerbaxa IV Lines Line sites with no e.o infection. Past Medical History reviewed. Allergies: Coded Allergies: Fentanyl (Verified Adverse Reaction, Severe, rash, 09/21/16) *MDRO Multi-Drug Resistant Organism (Verified Adverse Reaction, Unknown, ) ESBL (urine & sputum)-10/02/16 Objective . Vital Signs Date Time Temp Pulse Resp B/P Pulse Ox O2 Delivery O2 Flow Rate FiO2 10/06/16 08:00 99.9 98 12 112/80 95 10/06/16 08:00 98 10/06/16 08:00 45 10/06/16 07:18 95 45 10/06/16 06:00 94 10/06/16 04:00 98.1 106 12 110/72 92 10/06/16 04:00 106 10/06/16 04:00 45 10/06/16 03:31 96 45 10/06/16 02:00 102 10/06/16 00:00 86 10/06/16 00:00 99.0 86 12 125/74 95 10/06/16 00:00 50 10/05/16 23:44 95 45 10/05/16 22:00 100 10/05/16 20:36 97 45 10/05/16 20:00 99.1 86 12 94/52 95 10/05/16 20:00 50 10/05/16 20:00 86 10/05/16 18:00 86 10/05/16 16:00 99.8 106 13 121/58 94 10/05/16 16:00 108 10/05/16 16:00 50 10/05/16 15:33 92 45 10/05/16 14:00 114 10/05/16 12:00 50 10/05/16 12:00 99.7 123 12 156/91 97 10/05/16 12:00 123 10/05/16 10/05/16 10/06/16 15:00 23:00 07:00 Intake Total 857 ml 756 ml 931 ml Output Total 5000 ml Balance -4143 ml 756 ml 931 ml Intake Oral 0 ml 0 ml IV Total 438 ml 402 ml 677 ml Tube Feeding 219 ml 354 ml 254 ml Other 200 ml Hemodialysis 5000 ml # Voids 0 1 # Bowel Movements 0 1 . Laboratory Tests Test 10/05/16 10/06/16 04:34 05:25 White Blood Count 11.9 TH/MM3 13.2 TH/MM3 Red Blood Count 2.77 MIL/MM3 2.78 MIL/MM3 Hemoglobin 7.6 GM/DL 7.6 GM/DL Hematocrit 23.5 % 23.5 % Mean Corpuscular Volume 84.7 FL 84.7 FL Mean Corpuscular Hemoglobin 27.6 PG 27.3 PG Mean Corpuscular Hemoglobin 32.5 % 32.2 % Concent Red Cell Distribution Width 18.1 % 18.5 % Platelet Count 243 TH/MM3 272 TH/MM3 Mean Platelet Volume 7.7 FL 7.8 FL Neutrophils (%) (Auto) 76.4 % 77.9 % Lymphocytes (%) (Auto) 7.5 % 7.4 % Monocytes (%) (Auto) 4.6 % 5.7 % Eosinophils (%) (Auto) 10.4 % 8.0 % Basophils (%) (Auto) 1.1 % 1.0 % Neutrophils # (Auto) 9.1 TH/MM3 10.3 TH/MM3 Lymphocytes # (Auto) 0.9 TH/MM3 1.0 TH/MM3 Monocytes # (Auto) 0.5 TH/MM3 0.8 TH/MM3 Eosinophils # (Auto) 1.2 TH/MM3 1.1 TH/MM3 Basophils # (Auto) 0.1 TH/MM3 0.1 TH/MM3 CBC Comment AUTO DIFF AUTO DIFF Differential Total Cells 100 100 Counted Neutrophils % (Manual) 57 % 66 % Band Neutrophils % 19 % 12 % Lymphocytes % 9 % 6 % Monocytes % 4 % 1 % Eosinophils % 9 % 13 % Basophils % 2 % Neutrophils # (Manual) 9.0 TH/MM3 10.6 TH/MM3 Differential Comment FINAL DIFF FINAL DIFF MANUAL MANUAL Platelet Estimate NORMAL NORMAL Platelet Morphology Comment NORMAL NORMAL Myelocytes 2 % Laboratory Tests Test 10/05/16 10/06/16 04:34 05:19 Sodium Level 132 MEQ/L 134 MEQ/L Potassium Level 3.7 MEQ/L 3.7 MEQ/L Chloride Level 90 MEQ/L 94 MEQ/L Carbon Dioxide Level 26.9 MEQ/L 26.4 MEQ/L Anion Gap 15 MEQ/L 14 MEQ/L Blood Urea Nitrogen 63 MG/DL 48 MG/DL Creatinine 4.06 MG/DL 3.08 MG/DL Estimat Glomerular Filtration 11 ML/MIN 16 ML/MIN Rate Random Glucose 109 MG/DL 131 MG/DL Calcium Level 8.9 MG/DL 9.0 MG/DL Phosphorus Level 3.4 MG/DL 2.4 MG/DL Magnesium Level 2.2 MG/DL Albumin 2.5 GM/DL 2.7 GM/DL Microbiology Date/Time Procedure Status Source Growth 10/04/16 11:21 Aerobic Blood Culture - Preliminary Resulted Blood Peripheral NO GROWTH IN 1 DAY 10/04/16 11:21 Anaerobic Blood Culture - Preliminary Resulted Blood Peripheral NO GROWTH IN 1 DAY 10/04/16 11:30 Aerobic Blood Culture - Preliminary Resulted Blood Peripheral NO GROWTH IN 1 DAY 10/04/16 11:30 Anaerobic Blood Culture - Preliminary Resulted Blood Peripheral NO GROWTH IN 1 DAY 10/05/16 10:15 Aerobic Blood Culture Received Blood Line Pending 10/05/16 10:15 Anaerobic Blood Culture Received Blood Line Pending 10/05/16 10:26 Aerobic Blood Culture Received Blood Peripheral Pending 10/05/16 10:26 Anaerobic Blood Culture Received Blood Peripheral Pending Imaging Chest X-Ray 09/15/16 0600 Signed Impressions: Service Date/Time: Thursday, September 15, 2016 03:52 - CONCLUSION: Persistent and unchanged bibasilar infiltrates. Taco Haas Jr., MD Chest X-Ray 09/15/16 0000 Signed Impressions: Service Date/Time: Thursday, September 15, 2016 11:00 - CONCLUSION: Placement of tracheostomy tube otherwise not changed. Danyel Escalante MD Liver Ultrasound 09/08/16 0000 Signed Impressions: Service Date/Time: Thursday, September 08, 2016 08:45 - CONCLUSION: 1. Cholelithiasis with distended gallbladder. However, there are no associated findings present to diagnose acute cholecystitis. If there is persistent clinical concern for acute cholecystitis could evaluate for cystic duct obstruction with hepatobiliary scintigraphy. 2. Hepatomegaly with very heterogeneous echotexture and steatosis. Dejan Allison MD Chest X-Ray 09/06/16 0000 Signed Impressions: Service Date/Time: Tuesday, September 06, 2016 11:09 - CONCLUSION: No significant change has occurred. Terry Estrada MD Gall Bladder Ultrasound 08/29/16 0000 Signed Impressions: Service Date/Time: Monday, August 29, 2016 15:21 - CONCLUSION: 1. Hepatomegaly with heterogeneous echotexture throughout the liver. 2. There is a large echogenic area near the neck of the gallbladder suggestive of a stone, but despite its large size, demonstrates no acoustic shadowing in any of the views. Taco Davidson MD CT Angiography 08/15/16 0000 Signed Impressions: Service Date/Time: Monday, August 15, 2016 02:33 - CONCLUSION: 1. No evidence for pulmonary embolism. 2. Multifocal consolidation greatest in the right lower lobe and associated adenopathy. Terry Estrada MD Physical Exam GENERAL: Morbidly obese CF patient, awake, NAD, on the vent SKIN: Has patches of redness on her trunk, and some papules in extremities HEAD: Atraumatic. Normocephalic. No temporal or scalp tenderness. EYES: Pupils equal round and reactive. No scleral icterus. Moist mucosa ENT: No nasal discharge. Dry oral mucosa NECK: Large neck. Supple. Trach in place CARDIOVASCULAR: Regular rate and rhythm RESPIRATORY: Clear to auscultation. Breath sounds equal bilaterally. GASTROINTESTINAL: Abdomen soft, obese, non-tender, nondistended. MUSCULOSKELETAL: Extremities without clubbing, cyanosis. Edema (+) NEUROLOGICAL: eyes open, did not track of focus PIV with no evidence of infection Miller in place with clear urine. Assessment & Plan Remarks Sepsis present on admission. HCAP: ESBL and very MDR PSAE Staph epidermidis: possible contaminant but will repeat HD cath culture. Morbid Obesity (BMI 45.8 kg/m2) Obstructive Sleep Apnea (supposed to be on CPAP at home and home oxygen 2L) Acute respiratory failure vent dependent. Acute metabolic encephalopathy: infection, meds. Thrombosis of cephalic vein. Renal insufficiency, now on HD Recs: Continue Zerbaxa IV (ASP: MDR PSAE resistant to carbapenem, fevers persistent) Follow clinically. If repeat Bcx positive or change in clinical condition ok to restart Vanco in HD (call ID occupational therapy technician for assistance) Weaning per CCM Monitor progress Follow oscar D/W RN Terri Uribe MD October 06, 2016 10:28 d.w Clinical pharmacist. Terri Uribe MD October 06, 2016 10:28
--- NOTE | 2016-10-06 13:39 | HHI.NPPN ---
Subjective General Problems: Edema, Hypotension, Obesity Renal Failure: Acute Interval History Remains on the vent. Had dialysis yesterday with removal of 5 liters. She is oliguric. Review of Systems General Constitutional: Fever General Remarks unable to evaluate Objective Data Data 10/05/16 10/06/16 18:59 06:59 Intake Total 857 ml 1687 ml Output Total 5000 ml Balance -4143 ml 1687 ml Intake Oral 0 ml IV Total 438 ml 1079 ml Tube Feeding 219 ml 608 ml Other 200 ml Hemodialysis 5000 ml # Voids 1 # Bowel Movements 1 Vital Signs Date Time Temp Pulse Resp B/P Pulse Ox O2 Delivery O2 Flow Rate FiO2 10/06/16 12:00 45 10/06/16 12:00 99.7 97 16 118/57 100 10/06/16 12:00 97 10/06/16 11:04 45 10/06/16 10:58 92 45 10/06/16 10:00 96 10/06/16 08:00 99.9 98 12 112/80 95 10/06/16 08:00 98 10/06/16 08:00 45 10/06/16 07:18 95 45 10/06/16 06:00 94 10/06/16 04:00 98.1 106 12 110/72 92 10/06/16 04:00 106 10/06/16 04:00 45 10/06/16 03:31 96 45 10/06/16 02:00 102 10/06/16 00:00 86 10/06/16 00:00 99.0 86 12 125/74 95 10/06/16 00:00 50 10/05/16 23:44 95 45 10/05/16 22:00 100 10/05/16 20:36 97 45 10/05/16 20:00 99.1 86 12 94/52 95 10/05/16 20:00 50 10/05/16 20:00 86 10/05/16 18:00 86 10/05/16 16:00 99.8 106 13 121/58 94 10/05/16 16:00 108 10/05/16 16:00 50 10/05/16 15:33 92 45 10/05/16 14:00 114 -: 10/06/16 0525 10/06/16 0519 Tubes & Lines: Perma-Cath Tubes & Lines Comment trach, PEG Drip Comment heparin only Physical Exam General Appearance: No Acute Distress, Comfortable, Obese Throat Throat Exam: Oral Mucosa [place] & Moist Neck Neck Exam: Neck Supple Pulmonary Resp Exam: Rhonchi, Sputum, Diminished Breath Sounds Cardiology CV Exam: Regular, Normal Sinus Rhythm, Good Perfusion Gastrointestinal/Abdomen GI Exam: Soft, Bowel Sounds Present, Distended Musculoskeletal MS Exam: Joints Intact Integumentary Skin Exam: Warm, Dry Extremeties Extremities Exam: Dependent Edema Neurologic Neuro Exam: Awake VTE Prophylaxis Device: SCDs Assessment/Plan Assessment Summary: MIKE/Acute Renal Failure, Acute Tubular Necrosis, Fluid/ Volume Overload Electrolyte Assessment: Hyponatremia Problem List: (1) Acute kidney injury Plan: In a pt with normal renal function at baseline oliguric renal failure, ATN she has become anuric HD initiated 09/20; she is dialysis dependent and currently on TTS schedule. s/p PermCath placement K was replaced continue Nepro tube feeding ,avoid free water flushes due to hyponatremia; continue PhosLo for hyperphosphatemia I will stop Bumex as she is essentially anuric at this point. Avoid nephrotoxic agents. await signs of renal recovery, Continue supportive care. (2) ARDS (adult respiratory distress syndrome) Plan: s/p trach placement continue Ventilator support: A/C 18/650/50/10 Charge Account Clerk managing. Sanaz when able (3) Anemia Plan: Hb low but stable on heparin and protonix GI following, transfuse PRN; given 1 unit 5/4 follow Hb (4) Pneumonia Plan: febrile with leukocytosis; recent sputum culture showing Pseudomonas multidrug resistant organisms. ID following. She is now on Zerbaxa. (5) Hypothyroidism Plan: on synthroid (6) Morbid obesity (7) DVT (deep venous thrombosis) Plan: in IJ after central line placement (provoked) on heparin bridge to Coumadin , follow INR Problem Qualifiers (1) Pneumonia: Qualified Code: J18.9 - Pneumonia of both lungs due to infectious organism, unspecified part of lung Anshu Tan MD October 06, 2016 13:39
--- NOTE | 2016-10-06 14:46 | HHI.CCPN ---
Subjective Remarks/Hospital Course 56-year-old morbidly obese female brought in the emergency department in respiratory distress. She was intubated by ER attending. She has been sick for about a week with symptoms consistent with UTI. She's had fevers and chills. She's been short of breath. She's had fatigue. She has had a cough and chest pain with coughing. The family reports that she's been delirious for the last 3 days. 08/15 Patient is sedated with Diprivan, Versed, Fentanyl and intubated. CTA chest showed no PE multifocal consolidation greatest in RLL. Tmax 100.6 08/16 Patient is sedated with Diprivan and Fentanyl. Afebrile. CXR this morning showed increase consolidation. 08/17 Patient remains sedated and intubated. T:100.4 On PRVC/AC RR 18, Tv 500, IT :1.0 PEEP:10, FIO2 75% 08/18 Remains sedated and intubated. Afebrile. CXR this morning unchanged bibasilar infiltrates and effusions. 08/19 Patient was placed on rotoprone bed last night for proning sedated with Diprivan, Versed and Fentnayl in addition she is on Nimbex. On PRVC/AC RR 20, TV 400, IT:1.1, PEEP:14 and FIO2 80%. Afebrile. 08/20 Patient remains sedated and intubated. Remains on PRVC/AC mode with improvements in her oxygenation on FIO2 50% from 80% yesterday and PEEP:12. 08/21 Patient remains sedated and intubated. On PRVC/AC mode with RR 20, TV 400, IT:1.1, PEEP: 12 and FIO2 50%. Afebrile. 08/22 No acute events overnight. Remains sedated, intubated and on Nimbex.. T: 99.8. On PRVC mode with PEP: 12, FIO2 50%. CXR from yesterday showed better aeration, RLL infiltrate unchanged. 08/23 Chest x-ray worsening. Methylprednisolone taper to twice a day by pulmonary. The patient's FiO2 was found to be 100% this a.m., will continue to wean. 08/24: 1 desat episode yesterday when supine. still remains prone now. no vasopressors. sedated and paralyzed. 08/25: flolan added yesterday. fio2 down to 60%. remained supine all night. still on neuromuscular blockade. net -500cc/24h. 08/26: good diuresis. remained supine. fio2 70%. weaning flolan. remains with significant respiratory support and high peep despite 6L diuresis overnight. Cr still stable. 08/27: continues with good diuresis. net negative 3L/24h. fio2 down to 55%. flolan off. still high peep. not ready for SBT. more agitated today. Cr remains stable despite aggressive diuresis. 08/28: diuresis continues. -3.3L/24h. spiked fever overnight with a jump in wbc to 16 this AM. fio2 60%, but her pulmonary improvements have plateaued at this point. still on peep 12. 08/29: net -1.7L/24h. Cr starting to rise. still spiking fevers despite vanc/ cefepime added yesterday. wbc continues to rise. clinically appears infected, although unclear source. peep 10, fio2 60%. will likely need trach. 08/30: net +800cc, but Cr downtrending. appears clinically euvolemic. fever curve downtrending. wbc downtrending. on 40% fio2, peep 8 today. still following commands. 08/31: failed SBT after only 45 minutes yesterday. intubated for > 2 weeks at this point. will attempt to pursue trach/peg today. will continue with pulmonary strengthening. daily SBTs. 09/01 CXR showing increasing bibasilar infiltrate. Failed C Pap trial in 5 minutes due to severe tachypnea. PEG tube today. Family has not decided on trach yet 09/02: Patient febrile to 101.1, CXR increased infiltrate Tmax Tmax 101.1. Currently 9.7 left upper lung and right lower lobe. Pancultured. Cefepime added today and one dose of vancomycin. Continues to fail C Pap trial due to tachypnea and respiratory distress 09/03: Remains hypoxemic on 75% oxygen with new pneumonia. Sputum culture 09/02/16 with GNR. Family agreeable for tracheostomy but patient is not stable at this point for trach 09/04: still on 70% fio2. still hypoxic. pneumonia persists. needs trach, but too unstable at this point. 09/05: remains on 75% fio2. pseudomonas sensitivities came back resistant to carbapenems, intermediate to levaquin. still spiking fevers. not clinically improving. wbc remains elevated. 09/06: Remains on 12 of PEEP and FiO2 75%. Zosyn and tobramycin started yesterday. WBC count trending down today 11.5 from 13.1. Remains heavily sedated for ventilator synchrony. MAXIMUM TEMPERATURE 100.3 09/07: Continues to spike fever. CXR unchanged. WBC count improving. PEEP 14. FiO2 60%. Will start IV Bumex 1mg IV q12 09/09: Tolerating tube feeds at goal. Afebrile. No documented bowel movement. Currently sedated on the ventilator 09/10: Tmax 99.7. Currently 99.4. No bowel movement yesterday. None document since 09/04. Arousable on the ventilator 09/11: Tmax 102.6. Currently 100. Positive BM. Arousable on the ventilator. Tolerating tube feeds. Central line changed yesterday. Plan for bronchoscopy at 1 PM. 09/12: Tmax 100.1. Currently afebrile. Follows commands today. Wiggles toes and give thumbs up appropriately. MRI brain canceled. Tolerating tube feeding with positive BM. Tracheostomy currently planned for . 09/13: Tmax 102. Again on sedation [place] commands by wiggling toes bilaterally and giving thumbs up bilaterally appropriate. Tolerating tube feeding with positive BM. Tracheostomy planned for tomorrow with Dr. Ortega. 09/14: Low grade fever. CXR showing more prominent infiltrate on the right lower lobe and left upper lobe. WBC trending up still in normal range. Patient is on 40% FiO2 but continues to fail CPAP due to tachypnea 09/15: Remains intubated sedated, unable to wean off the vent. Plan for tracheostomy today with Dr. Ortega. Continues to have low grade fever. CXR with persistent bibasilar infiltrates 09/16: Tmax 101.1. Currently 100.7. Awake and alert. Following commands. 09/17: Afebrile. Currently on PSV trial. Tolerating tube feeds. One bowel movement. Noted decreased urine output past 48 hours. Diuretics have been discontinued. This a.m. creatinine currently pending. 09/18: Afebrile. Adequate urine output yesterday but decreased 150 past 8 hours. Tolerating tube feeds. One bowel movement. Not tolerating PSV trials today. 09/19: Tmax 100.5. Urine output picking up. Tolerating tube feeds. No bowel movement 48 hours. Not tolerating PSV trials. 09/20: Diffuse drug morbilliform exanthem noted this a.m. Tmax 100.6. Urine output around 20 cc an hour. Not tolerating PSV trials. Possibly new right pleural effusion noted on chest x-ray. Will need hemodialysis 09/21: Tmax 100.6 currently 98.7. -4 L with hemodialysis yesterday and today. FiO2 to 60%. Tolerating tube feeds. Positive BM. Still requiring sedation 09/22: Afebrile. Tolerating tube feeds. Positive BM. 30 g per kilogram per minute of propofol. Tolerated PSV trials 3 hours today 09/23 HD today with 3.5 L removal. Tolerating CPAP for 8 hours, currently 45% with RSBI 45%. 09/24 Called by RN this morning for concern for bloody BMs. Placed heparin and warfarin on hold. Serial Hgb ordered. Hgb 9.3 -->8.6 and hemodynamically unchanged. Started on protonix drip. Heme stool is negative and now RN states she is concerned about the adequacy of specimen, so sending repeat. Had asked GI to see, however further workup will not be indicated if hemoccult is negative. Tolerating PSV 05/06 09/25: heparin restarted. hemocult negative x 2. 09/26: no changes. still failing cpap trials. 09/27: Tmax 101.5. Currently 99.5. Resting on Diprivan drip at 25 mcg/kg/m. Currently tolerating tube feeding.. One bowel movement. 09/28: Hemoglobin trending downward. Transfusing 1 unit PRBCs with hemodialysis today. Currently afebrile. Appears comfortable ventilator 2 bowel movements 09/29 No events overnight. Sedated with Diprivan and on ventilator via trach. T: 99.9 For Perma Cath placement today. s/p HD yesterday with removal 4L and transfusion 1unit PRBC with HD. 09/30: Tmax 100.8. No events overnight. No bowel movement. Tolerating tube feeds. 10/01: Tmax 101.3. Currently resting in bed in no acute distress. Tolerating tube feeds. Chest x-ray revealed atelectasis. -5 L with hemodialysis yesterday. 10/02 Patient remains on ventilator via trach on PRVC/AC with PEEP: 10 and FIO2 50 %. T: 102.1 at 4 am. 10/03 Patient is off sedation on ventilator via trach. Tmax 101.2 last night. For HD today. 10/04: Tmax 101.5. Currently afebrile. Tolerating PSV trial. Hemodialysis - 4.5 L yesterday. Positive BM. New rash. Received chlorhexidine today. 10/05: Tmax 100. Currently 98.9. Positive BM. Tolerating tube feeds. Less erythematous today. Currently on dialysis Subjective 10/06: Tmax 99.9. Currently 99.7. Currently on PSV trial 09/12 @ 45%. Tolerating tube feed. Positive bowel movement Objective Vital Signs Date Time Temp Pulse Resp B/P Pulse Ox O2 Delivery O2 Flow Rate FiO2 10/06/16 12:00 45 10/06/16 12:00 99.7 97 16 118/57 100 Intake and Output 10/05/16 10/05/16 10/06/16 08:00 16:00 00:00 Intake Total 370 ml 857 ml 756 ml Output Total 5000 ml Balance 370 ml -4143 ml 756 ml Result Diagram: 10/06/16 0525 10/06/16 0519 Other Results Microbiology Date/Time Procedure Status Source Growth 10/05/16 10:26 Aerobic Blood Culture - Preliminary Resulted Blood Peripheral NO GROWTH IN 1 DAY 10/05/16 10:26 Anaerobic Blood Culture - Preliminary Resulted Blood Peripheral NO GROWTH IN 1 DAY 10/02/16 12:45 Urine Culture - Final Complete Urine Catheterized Urine Klebsiella Pneumoniae Esbl Pos 10/02/16 09:47 Aerobic Blood Culture - Final Resulted Blood Peripheral Staphylococcus Epidermidis 10/02/16 09:47 Anaerobic Blood Culture - Preliminary Resulted Blood Peripheral NO GROWTH IN 4 DAYS 10/02/16 08:30 Gram Stain - Final Resulted Sputum Endotracheal 10/02/16 08:30 Sputum Culture - Preliminary Resulted Klebsiella Pneumoniae Esbl Pos Pseudomonas Aeruginosa Imaging Last Impressions Chest X-Ray 10/04/16 0000 Signed Impressions: Service Date/Time: Tuesday, October 04, 2016 04:47 - CONCLUSION: 1. Pulmonary vascular engorgement. 2. Developing intra-alveolar infiltrate right lung base. Infectious etiology versus asymmetrical pulmonary edema. Taco Haas Jr., MD Catheter Placement X-Ray 09/29/16 1223 Signed Impressions: Service Date/Time: Thursday, September 29, 2016 12:31 - CONCLUSION: Vas-Cath to PermCath exchange as detailed above. Taco Haas Jr., MD Renal Ultrasound 09/17/16 0000 Signed Impressions: Service Date/Time: Saturday, September 17, 2016 13:31 - CONCLUSION: Negative renal sonogram. Taco Davidson MD Upper Extremity Ultrasound 09/14/16 0000 Signed Impressions: Service Date/Time: August 08:32 - CONCLUSION: There is thrombus within the left subclavian and internal jugular veins. Danyel Escalante MD Lower Extremity Ultrasound 09/13/16 0000 Signed Impressions: Service Date/Time: Tuesday, September 13, 2016 22:33 - CONCLUSION: Normal examination. Leonides Mason MD Liver Ultrasound 09/08/16 0000 Signed Impressions: Service Date/Time: Thursday, September 08, 2016 08:45 - CONCLUSION: 1. Cholelithiasis with distended gallbladder. However, there are no associated findings present to diagnose acute cholecystitis. If there is persistent clinical concern for acute cholecystitis could evaluate for cystic duct obstruction with hepatobiliary scintigraphy. 2. Hepatomegaly with very heterogeneous echotexture and steatosis. Dejan Allison MD Gall Bladder Ultrasound 08/29/16 0000 Signed Impressions: Service Date/Time: Monday, August 29, 2016 15:21 - CONCLUSION: 1. Hepatomegaly with heterogeneous echotexture throughout the liver. 2. There is a large echogenic area near the neck of the gallbladder suggestive of a stone, but despite its large size, demonstrates no acoustic shadowing in any of the views. Taco Davidson MD CT Angiography 08/15/16 0000 Signed Impressions: Service Date/Time: Monday, August 15, 2016 02:33 - CONCLUSION: 1. No evidence for pulmonary embolism. 2. Multifocal consolidation greatest in the right lower lobe and associated adenopathy. Terry Estrada MD Objective Remarks GENERAL: 56 yo female currently resting in bed mechanically ventilated SKIN: Warm and dry. Skin is flaky. Rash much improved/less erythematous. Noted stage I to 2 decubitus ulcer\coccyx and back covered with Mepilex HEAD: Normocephalic. EYES: No scleral icterus. No injection or drainage. NECK: Neck is obese. Right subclavian hemodialysis catheters clean dry and intact. Tracheostomy is clean dry and intact CARDIOVASCULAR: RRR. S1, S2 no S4 . No murmur RESPIRATORY: Diminished breath sounds throughout due to body habitus GASTROINTESTINAL: Abdomen obese, soft, non-tender, hypoactive active bowel sounds. G-tube is clean dry and intact MUSCULOSKELETAL: Crinkling of bilateral lower extremities. 1+ edema BUE. Neuro: Awake, makes eye contact and nods to questions. Currently following commands moving upper and lower extremity spontaneously. A/P Problem List: (1) ARDS (adult respiratory distress syndrome) ICD Code: J80 Status: Acute (2) CHF (congestive heart failure) ICD Code: I50.9 Status: Acute (3) Respiratory failure ICD Code: J96.90 Status: Acute (4) Pneumonia ICD Code: J18.9 Status: Acute Assessment and Plan Neuro/Psych: Acute toxic metabolic encephalopathy Agitated delirium Off sedation. Monitor neuro status. Fentanyl allergy On Seroquel 75 mg every 8 hours and oxycodone 10 mg every 4 hours EEG 09/09 moderate to severe encephalopathy Pulm: Acute hypercapnic and hypoxemic respiratory failure ARDS Pneumonia community-acquired, now with HCAP with carbapenem-resistant pseudomonas Probable JOE PRVC /1.08/02/44, decrease FIO2 40% as tiki Ventilator bundle. Bronchodilator therapy every 4 hours and as needed Pulm has followed- Dr. Beck Gen surgery Dr. Ortega s/p s tracheostomy 09/15 Pulm toilet, trach care CV: Hypertension Dyslipidemia Elevated troponin - likely strain Metoprolol 12.5 mg by mouth 3 times a day Echo 08/14 showed EF 65-70% mild AR/TR On Pravachol 20 mg a night for dyslipidemia Renal/: Acute kidney injury - requiring hemodialysis Dr. Tan -nephrology following. Hemodialysis Sunday//Sunday MIKE: ATN from sepsis syndrome and diminished renal perfusion ; also aminoglycoside induced nephrotoxicity likely also contributing; possibly AIN -> per nephrology note Urine eosinophils negative. Renal ultrasound revealed no hydronephrosis Monitor renal function, I/O's, avoid nephrotoxins On Bumex 2mg IV BID nephrology HD 09/30 with planned removal 5 L 10/05 GI: Elevated transaminases Cholelithiasis US liver: Fatty liver and cholelithiasis. Repeat 09/08 revealed cholelithiasis with no acute signs of cholecystitis. Recommend a HIDA scan if indicated On TF Nepro's 45 cc an hour and beneprotein 2 packs 3 times a day s/p PEG placement 09/01/[address] Stone Mac/Moses, MiraLAX for bowel regimen. Pepcid 20 mg liquid daily GI prophylaxis ID: Pseudomonas pneumonia Funguria, Maribell glabrata and parapsilosis. Continue with abx (Zerbaxa, vancomycin). ID is following. Pertinent cultures blood and sputum cx 08/15- NG strep pneumonia and Legionella urinary Ag negative Blood cultures 08/28: NGTD C Diff negative 08/28. Lines changed 08/28. Sputum 08/30 - Pseudomonas Sputum 09/02 PSAE, resistant to carbapenem, intermediate to Levaquin. 09/07 - urine -Maribell Guilliermondii 09/07 - blood cultures 2 - no growth 09/09 - urine -strep viridans, Maribell parapsilosis 09/10 - blood cultures 2 -no growth 09/11 - broch washings -no growth to date 09/12 - urine -Maribell glabrata and parapsilosis 09/16 - blood cultures 2 - pending 09/16 - sputum -no growth 09/16 - urine -Maribell glabrata and parapsilosis 10/02 - blood cultures 2 - staph epi 10/02 - urine - ESBL positive Klebsiella 10/04 - blood cultures 2 - pending 10/05 - blood cultures 2 - pending Zosyn previously discontinued secondary to rash Heme: Normocytic anemia Left IJ/subclavian nonocclusive thrombus Peripheral smear with leukoerythroblastosis - likely reactive Monitor CBC, s/p transfusion 1unit PRBC with HD 09/29 On heparin drip bridging to therapeutic INR with Warfarin 7.5 mg daily. Monitor PTT/INR INR currently 1.2 Endo: Diabetes mellitus Hypothyroidism on SSI (medium scale) for glycemic control On Synthroid 200mcg daily. TSH 1.37 GI prophylaxis-Protonix 40mg Q12 DVT - Heparin gtt/Coumadin d/c heparin drip once INR>2.0 - Continue , SCDs Lines: Peripheral IV. - PEG 09/01/16 - Trach 09/15 -Right Permacath placed 09/29 Level 2 Loree Marinelli, daughter (HCP): [phone] Rony Marinelli, significant other: [phone] Problem Qualifiers (1) CHF (congestive heart failure): Qualified Code: I50.9 - Acute congestive heart failure, unspecified congestive heart failure type (2) Respiratory failure: Qualified Code: J96.02 - Acute respiratory failure with hypercapnia (3) Pneumonia: Qualified Code: J18.9 - Pneumonia of both lungs due to infectious organism, unspecified part of lung Fadi Villa MD October 06, 2016 14:46
[2016-10-06] MEDS: WARFARIN SOD 5 MG TAB PO SCH (16:00)
--- NOTE | 2016-10-06 18:27 | HHI.PR ---
Subjective Remarks Awake and on vent support , FIO2 at 40 %. Has been on CPAP for 6 hrs Objective Vital Signs Date Time Temp Pulse Resp B/P Pulse Ox O2 Delivery O2 Flow Rate FiO2 10/06/16 16:02 97 45 10/06/16 16:00 99.5 92 12 128/76 10/06/16 16:00 45 10/06/16 16:00 93 10/06/16 14:00 86 10/06/16 12:00 45 10/06/16 12:00 99.7 97 16 118/57 100 10/06/16 12:00 97 10/06/16 11:04 45 10/06/16 10:58 92 45 10/06/16 10:00 96 10/06/16 08:00 99.9 98 12 112/80 95 10/06/16 08:00 98 10/06/16 08:00 45 10/06/16 07:18 95 45 10/06/16 06:00 94 10/06/16 04:00 98.1 106 12 110/72 92 10/06/16 04:00 106 10/06/16 04:00 45 10/06/16 03:31 96 45 10/06/16 02:00 102 10/06/16 00:00 86 10/06/16 00:00 99.0 86 12 125/74 95 10/06/16 00:00 50 10/05/16 23:44 95 45 10/05/16 22:00 100 10/05/16 20:36 97 45 10/05/16 20:00 99.1 86 12 94/52 95 10/05/16 20:00 50 10/05/16 20:00 86 I/O 10/05/16 10/05/16 10/05/16 10/06/16 10/06/16 10/06/16 07:00 15:00 23:00 07:00 15:00 23:00 Intake Total 370 ml 857 ml 756 ml 931 ml 971 ml Output Total 5000 ml Balance 370 ml -4143 ml 756 ml 931 ml 971 ml Intake Oral 0 ml 0 ml 0 ml IV Total 119 ml 438 ml 402 ml 677 ml 456 ml Tube Feeding 151 ml 219 ml 354 ml 254 ml 390 ml Other 100 ml 200 ml 125 ml Hemodialysis 5000 ml # Voids 0 0 1 # Bowel Movements 2 0 1 2 Result Diagram: 10/06/16 0525 10/06/16 0519 Objective Remarks This is an obese middle-aged white female who is responsive HEENT: Head normocephalic. Pupils react. Neck: No bruits, no thyroid enlargement, no lymphadenopathy. Chest: Decreased breath sounds. Few basal crackles. Decreased breath sounds at bases Heart: Heart sounds were regular. S1-S2 no murmur, no S3. Abdomen: Soft, benign. No masses, or tenderness. Bowel sounds are active. Extremities: 1 + edema . Neuro :Moves feet. Awake . Assessment and Plan Assessment and Plan IMPRESSION 1. Acute hypercapnic respiratory failure. 2. Pulmonary edema. 3. Drug rash 4. Obstructive sleep apnea syndrome 5. Hypertension 6. Hypothyroidism. 7. MIKE Plan : 1. Cont weaning vent and FIO2 to 40 % 2. Trach toilet and suctioning. 3. Nebs qid , duoneb. 4. A/C rate 12,and PEEP + 8. at HS and Daily CPAP trial upto 12 Hrs 5. No sedation 6. PT evaluation 7. Tube feeds at 50 CC Abimael Beck MD October 06, 2016 18:27
[2016-10-06] MEDS: PRAVASTATIN SOD 20 MG TAB PO SCH (20:17)
[2016-10-06] MEDS: SODIUM CHLORIDE 0.9% FLUSH 10 ML FLUSH IVF PRN (22:11)
[2016-10-07] VITALS (18 sets, daily range): BP systolic 82–140; BP diastolic 52–97; PULSE 79–113; RESP 12–18; TEMP 98.5–100.6; O2SAT 92–97
[2016-10-07] MEDS: CHLORHEXIDINE GLUCONATE 2 % 1 PACK (2 CLOTHS) TOP SCH (02:31)
[2016-10-07] MEDS: RESP: ALBUTEROL 2.5 MG/IPRATROPIUM 0.5 MG NEB (SCH) INH ×4 (03:24→21:12)
[2016-10-07] MEDS: oxyCODONE HCL ORAL CONC 20 MG/ML SYRINGE G-TUBE SCH ×2 (04:24→09:59)
[2016-10-07] MEDS: CEFTOLOZANE-TAZOBACTAM INJ 150 MG in SODIUM CHLORIDE 0.9% INJ 100 ML IV SCH ×3 (04:24→20:43)
[2016-10-07 05:33] LABS: HEMATOCRIT 23.1 % (35.0-46.0); MEAN CELL VOLUME 83.6 FL (80.0-100.0); MEAN CORPUSCULAR HEMOGLOBIN 27.8 PG (27.0-34.0); MEAN CORPUSCULAR HGB CONC 33.3 % (32.0-36.0); PLATELET COUNT 311 TH/MM3 (150-450); RED BLOOD COUNT 2.77 MIL/MM3 (4.00-5.30); RED CELL DISTRIBUTION WIDTH 17.7 % (11.6-17.2); REVIEW FLAG FINAL; WHITE BLOOD COUNT 9.8 TH/MM3 (4.0-11.0)
[2016-10-07 05:45] LABS: INTERNATIONAL NORMALIZED RATIO 1.7 RATIO; PROTHROMBIN TIME - PATIENT 18.7 SEC (9.8-11.6)
[2016-10-07 05:57] LABS: BICARBONATE 27.3 MEQ/L (21.0-32.0); MAGNESIUM 2.2 MG/DL (1.5-2.5); POTASSIUM 3.6 MEQ/L (3.5-5.1)
[2016-10-07] MEDS: LEVOTHYROXINE SODIUM 200 MCG TAB PO SCH (06:00)
[2016-10-07] MEDS: METOCLOPRAMIDE HCL 10 MG/2 ML VIAL IV PUSH SCH ×3 (06:36→20:42)
[2016-10-07] MEDS: QUEtiapine FUMARATE 25 MG TAB PO SCH ×3 (06:37→20:42)
[2016-10-07] MEDS: SODIUM CHLORIDE 0.9% FLUSH 10 ML FLUSH IVF PRN (06:37)
[2016-10-07] MEDS: METOPROLOL TARTRATE 25 MG TAB G-TUBE SCH ×3 (06:37→20:41)
[2016-10-07] MEDS: SODIUM CHLOR 0.9% 1000 ML INJ 1,000 ML IV PRN (08:19)
[2016-10-07] MEDS: ALBUMIN HUMAN 25% 25 GM/100 ML BAGP IV PRN ×2 (08:19→08:36)
[2016-10-07] MEDS: GENTAMICIN SULFATE (DIALYSIS USE ONLY) 20 MG/2 ML VIAL IV PRN (08:20)
[2016-10-07] MEDS: HEPARIN SODIUM - IV 10,000 UNITS/10 ML VIAL PRN (08:20)
[2016-10-07] MEDS: BENEPROTEIN POWDER 1 PACK G-TUBE SCH ×3 (09:00→17:22)
[2016-10-07] MEDS: ARTIFICIAL TEARS OPTH SOLN 15 ML BTL EACH EYE SCH ×3 (09:00→17:22)
[2016-10-07] MEDS: PANTOPRAZOLE SODIUM 40 MG VIAL IV PUSH SCH ×2 (10:00→23:00)
[2016-10-07] MEDS: DOCUSATE SODIUM 100 MG/10 ML UDC PO SCH ×2 (10:00→20:40)
[2016-10-07] MEDS: EUCERIN CREAM 120 GM JAR TOPICAL SCH ×2 (10:00→20:40)
[2016-10-07] MEDS: SENNOSIDES SYRUP 8.8 MG/5 ML CUP PO SCH ×2 (10:00→20:40)
[2016-10-07] MEDS: SODIUM CHLORIDE 0.9% FLUSH 10 ML FLUSH IV FLUSH SCH ×2 (10:01→20:40)
[2016-10-07] MEDS: CALCIUM ACETATE 667 MG CAP PO SCH ×3 (10:01→17:22)
[2016-10-07] MEDS: POLYETHYLENE GLYCOL 17 GM PKG PO SCH ×2 (10:01→20:40)
[2016-10-07] MEDS: SODIUM CHLORIDE 0.9% FLUSH 10 ML FLUSH IVF SCH (10:02)
[2016-10-07 11:30] LABS: APTT (PATIENT) 65.5 SEC (24.3-30.1)
--- NOTE | 2016-10-07 11:54 | HHI.CCPN ---
Subjective Remarks/Hospital Course 56-year-old morbidly obese female brought in the emergency department in respiratory distress. She was intubated by ER attending. She has been sick for about a week with symptoms consistent with UTI. She's had fevers and chills. She's been short of breath. She's had fatigue. She has had a cough and chest pain with coughing. The family reports that she's been delirious for the last 3 days. 08/15 Patient is sedated with Diprivan, Versed, Fentanyl and intubated. CTA chest showed no PE multifocal consolidation greatest in RLL. Tmax 100.6 08/16 Patient is sedated with Diprivan and Fentanyl. Afebrile. CXR this morning showed increase consolidation. 08/17 Patient remains sedated and intubated. T:100.4 On PRVC/AC RR 18, Tv 500, IT :1.0 PEEP:10, FIO2 75% 08/18 Remains sedated and intubated. Afebrile. CXR this morning unchanged bibasilar infiltrates and effusions. 08/19 Patient was placed on rotoprone bed last night for proning sedated with Diprivan, Versed and Fentnayl in addition she is on Nimbex. On PRVC/AC RR 20, TV 400, IT:1.1, PEEP:14 and FIO2 80%. Afebrile. 08/20 Patient remains sedated and intubated. Remains on PRVC/AC mode with improvements in her oxygenation on FIO2 50% from 80% yesterday and PEEP:12. 08/21 Patient remains sedated and intubated. On PRVC/AC mode with RR 20, TV 400, IT:1.1, PEEP: 12 and FIO2 50%. Afebrile. 08/22 No acute events overnight. Remains sedated, intubated and on Nimbex.. T: 99.8. On PRVC mode with PEP: 12, FIO2 50%. CXR from yesterday showed better aeration, RLL infiltrate unchanged. 08/23 Chest x-ray worsening. Methylprednisolone taper to twice a day by pulmonary. The patient's FiO2 was found to be 100% this a.m., will continue to wean. 08/24: 1 desat episode yesterday when supine. still remains prone now. no vasopressors. sedated and paralyzed. 08/25: flolan added yesterday. fio2 down to 60%. remained supine all night. still on neuromuscular blockade. net -500cc/24h. 08/26: good diuresis. remained supine. fio2 70%. weaning flolan. remains with significant respiratory support and high peep despite 6L diuresis overnight. Cr still stable. 08/27: continues with good diuresis. net negative 3L/24h. fio2 down to 55%. flolan off. still high peep. not ready for SBT. more agitated today. Cr remains stable despite aggressive diuresis. 08/28: diuresis continues. -3.3L/24h. spiked fever overnight with a jump in wbc to 16 this AM. fio2 60%, but her pulmonary improvements have plateaued at this point. still on peep 12. 08/29: net -1.7L/24h. Cr starting to rise. still spiking fevers despite vanc/ cefepime added yesterday. wbc continues to rise. clinically appears infected, although unclear source. peep 10, fio2 60%. will likely need trach. 08/30: net +800cc, but Cr downtrending. appears clinically euvolemic. fever curve downtrending. wbc downtrending. on 40% fio2, peep 8 today. still following commands. 08/31: failed SBT after only 45 minutes yesterday. intubated for > 2 weeks at this point. will attempt to pursue trach/peg today. will continue with pulmonary strengthening. daily SBTs. 09/01 CXR showing increasing bibasilar infiltrate. Failed C Pap trial in 5 minutes due to severe tachypnea. PEG tube today. Family has not decided on trach yet 09/02: Patient febrile to 101.1, CXR increased infiltrate Tmax Tmax 101.1. Currently 9.7 left upper lung and right lower lobe. Pancultured. Cefepime added today and one dose of vancomycin. Continues to fail C Pap trial due to tachypnea and respiratory distress 09/03: Remains hypoxemic on 75% oxygen with new pneumonia. Sputum culture 09/02/16 with GNR. Family agreeable for tracheostomy but patient is not stable at this point for trach 09/04: still on 70% fio2. still hypoxic. pneumonia persists. needs trach, but too unstable at this point. 09/05: remains on 75% fio2. pseudomonas sensitivities came back resistant to carbapenems, intermediate to levaquin. still spiking fevers. not clinically improving. wbc remains elevated. 09/06: Remains on 12 of PEEP and FiO2 75%. Zosyn and tobramycin started yesterday. WBC count trending down today 11.5 from 13.1. Remains heavily sedated for ventilator synchrony. MAXIMUM TEMPERATURE 100.3 09/07: Continues to spike fever. CXR unchanged. WBC count improving. PEEP 14. FiO2 60%. Will start IV Bumex 1mg IV q12 09/09: Tolerating tube feeds at goal. Afebrile. No documented bowel movement. Currently sedated on the ventilator 09/10: Tmax 99.7. Currently 99.4. No bowel movement yesterday. None document since 09/04. Arousable on the ventilator 09/11: Tmax 102.6. Currently 100. Positive BM. Arousable on the ventilator. Tolerating tube feeds. Central line changed yesterday. Plan for bronchoscopy at 1 PM. 09/12: Tmax 100.1. Currently afebrile. Follows commands today. Wiggles toes and give thumbs up appropriately. MRI brain canceled. Tolerating tube feeding with positive BM. Tracheostomy currently planned for . 09/13: Tmax 102. Again on sedation [place] commands by wiggling toes bilaterally and giving thumbs up bilaterally appropriate. Tolerating tube feeding with positive BM. Tracheostomy planned for tomorrow with Dr. Ortega. 09/14: Low grade fever. CXR showing more prominent infiltrate on the right lower lobe and left upper lobe. WBC trending up still in normal range. Patient is on 40% FiO2 but continues to fail CPAP due to tachypnea 09/15: Remains intubated sedated, unable to wean off the vent. Plan for tracheostomy today with Dr. Ortega. Continues to have low grade fever. CXR with persistent bibasilar infiltrates 09/16: Tmax 101.1. Currently 100.7. Awake and alert. Following commands. 09/17: Afebrile. Currently on PSV trial. Tolerating tube feeds. One bowel movement. Noted decreased urine output past 48 hours. Diuretics have been discontinued. This a.m. creatinine currently pending. 09/18: Afebrile. Adequate urine output yesterday but decreased 150 past 8 hours. Tolerating tube feeds. One bowel movement. Not tolerating PSV trials today. 09/19: Tmax 100.5. Urine output picking up. Tolerating tube feeds. No bowel movement 48 hours. Not tolerating PSV trials. 09/20: Diffuse drug morbilliform exanthem noted this a.m. Tmax 100.6. Urine output around 20 cc an hour. Not tolerating PSV trials. Possibly new right pleural effusion noted on chest x-ray. Will need hemodialysis 09/21: Tmax 100.6 currently 98.7. -4 L with hemodialysis yesterday and today. FiO2 to 60%. Tolerating tube feeds. Positive BM. Still requiring sedation 09/22: Afebrile. Tolerating tube feeds. Positive BM. 30 g per kilogram per minute of propofol. Tolerated PSV trials 3 hours today 09/23 HD today with 3.5 L removal. Tolerating CPAP for 8 hours, currently 45% with RSBI 45%. 09/24 Called by RN this morning for concern for bloody BMs. Placed heparin and warfarin on hold. Serial Hgb ordered. Hgb 9.3 -->8.6 and hemodynamically unchanged. Started on protonix drip. Heme stool is negative and now RN states she is concerned about the adequacy of specimen, so sending repeat. Had asked GI to see, however further workup will not be indicated if hemoccult is negative. Tolerating PSV 05/06 09/25: heparin restarted. hemocult negative x 2. 09/26: no changes. still failing cpap trials. 09/27: Tmax 101.5. Currently 99.5. Resting on Diprivan drip at 25 mcg/kg/m. Currently tolerating tube feeding.. One bowel movement. 09/28: Hemoglobin trending downward. Transfusing 1 unit PRBCs with hemodialysis today. Currently afebrile. Appears comfortable ventilator 2 bowel movements 09/29 No events overnight. Sedated with Diprivan and on ventilator via trach. T: 99.9 For Perma Cath placement today. s/p HD yesterday with removal 4L and transfusion 1unit PRBC with HD. 09/30: Tmax 100.8. No events overnight. No bowel movement. Tolerating tube feeds. 10/01: Tmax 101.3. Currently resting in bed in no acute distress. Tolerating tube feeds. Chest x-ray revealed atelectasis. -5 L with hemodialysis yesterday. 10/02 Patient remains on ventilator via trach on PRVC/AC with PEEP: 10 and FIO2 50 %. T: 102.1 at 4 am. 10/03 Patient is off sedation on ventilator via trach. Tmax 101.2 last night. For HD today. 10/04: Tmax 101.5. Currently afebrile. Tolerating PSV trial. Hemodialysis - 4.5 L yesterday. Positive BM. New rash. Received chlorhexidine today. 10/05: Tmax 100. Currently 98.9. Positive BM. Tolerating tube feeds. Less erythematous today. Currently on dialysis 10/06: Tmax 99.9. Currently 99.7. Currently on PSV trial 09/12 @ 45%. Tolerating tube feed. Positive bowel movement Subjective 10/07: Tmax 99.8. currently psv 10//40%. has not been out of bed in weeks due to critical illness. needs to be mobilized. still no placement plan. Objective Vital Signs Date Time Temp Pulse Resp B/P Pulse Ox O2 Delivery O2 Flow Rate FiO2 10/07/16 11:15 94 40 10/07/16 10:00 88 10/07/16 08:00 99.9 12 82/52 Intake and Output 10/06/16 10/06/16 10/07/16 08:00 16:00 00:00 Intake Total 931 ml 971 ml 671 ml Output Total 0 ml Balance 931 ml 971 ml 671 ml Result Diagram: 10/07/16 0508 10/07/16 0508 Imaging Last Impressions Chest X-Ray 10/04/16 0000 Signed Impressions: Service Date/Time: Tuesday, October 04, 2016 04:47 - CONCLUSION: 1. Pulmonary vascular engorgement. 2. Developing intra-alveolar infiltrate right lung base. Infectious etiology versus asymmetrical pulmonary edema. Taco Haas Jr., MD Catheter Placement X-Ray 09/29/16 1223 Signed Impressions: Service Date/Time: Thursday, September 29, 2016 12:31 - CONCLUSION: Vas-Cath to PermCath exchange as detailed above. Taco Haas Jr., MD Renal Ultrasound 09/17/16 0000 Signed Impressions: Service Date/Time: Saturday, September 17, 2016 13:31 - CONCLUSION: Negative renal sonogram. Taco Davidson MD Upper Extremity Ultrasound 09/14/16 0000 Signed Impressions: Service Date/Time: August 08:32 - CONCLUSION: There is thrombus within the left subclavian and internal jugular veins. Danyel Escalante MD Lower Extremity Ultrasound 09/13/16 0000 Signed Impressions: Service Date/Time: Tuesday, September 13, 2016 22:33 - CONCLUSION: Normal examination. Leonides Mason MD Liver Ultrasound 09/08/16 0000 Signed Impressions: Service Date/Time: Thursday, September 08, 2016 08:45 - CONCLUSION: 1. Cholelithiasis with distended gallbladder. However, there are no associated findings present to diagnose acute cholecystitis. If there is persistent clinical concern for acute cholecystitis could evaluate for cystic duct obstruction with hepatobiliary scintigraphy. 2. Hepatomegaly with very heterogeneous echotexture and steatosis. Dejan Allison MD Gall Bladder Ultrasound 08/29/16 0000 Signed Impressions: Service Date/Time: Monday, August 29, 2016 15:21 - CONCLUSION: 1. Hepatomegaly with heterogeneous echotexture throughout the liver. 2. There is a large echogenic area near the neck of the gallbladder suggestive of a stone, but despite its large size, demonstrates no acoustic shadowing in any of the views. Taco Davidson MD CT Angiography 08/15/16 0000 Signed Impressions: Service Date/Time: Monday, August 15, 2016 02:33 - CONCLUSION: 1. No evidence for pulmonary embolism. 2. Multifocal consolidation greatest in the right lower lobe and associated adenopathy. Terry Estrada MD Objective Remarks GENERAL: 56 yo female currently resting in bed mechanically ventilated SKIN: Warm and dry. Skin is flaky. Rash much improved/less erythematous. Noted stage I to 2 decubitus ulcer\coccyx and back covered with Mepilex HEAD: Normocephalic. EYES: No scleral icterus. No injection or drainage. NECK: Neck is obese. Right subclavian hemodialysis catheters clean dry and intact. Tracheostomy is clean dry and intact CARDIOVASCULAR: RRR. sinus by tele. RESPIRATORY: Diminished breath sounds throughout due to body habitus GASTROINTESTINAL: Abdomen obese, soft, non-tender, hypoactive active bowel sounds. G-tube is clean dry and intact MUSCULOSKELETAL: Crinkling of bilateral lower extremities. 1+ edema BUE. Neuro: Awake, makes eye contact and nods to questions. Currently following commands moving upper and lower extremity spontaneously. A/P Problem List: (1) ARDS (adult respiratory distress syndrome) ICD Code: J80 Status: Acute (2) CHF (congestive heart failure) ICD Code: I50.9 Status: Acute (3) Respiratory failure ICD Code: J96.90 Status: Acute (4) Pneumonia ICD Code: J18.9 Status: Acute Assessment and Plan Neuro/Psych: Acute toxic metabolic encephalopathy Agitated delirium- improving. Off sedation. Monitor neuro status. Fentanyl allergy On Seroquel 75 mg every 8 hours and oxycodone 10 mg every 4 hours EEG 09/09 moderate to severe encephalopathy good sleep/wake hygeine. start melatonin 5mg po qHS for sleep. Pulm: Acute on chronic hypercapnic and hypoxemic respiratory failure ARDS- resolved. Pneumonia community-acquired, now with HCAP with carbapenem-resistant pseudomonas and ESBL Klebsiella VAP. Probable JOE PSV 03/04/40%. continue daily SBTs. very slow improvements. Ventilator bundle. Bronchodilator therapy every 4 hours and as needed Pulm has followed- Dr. Beck Gen surgery Dr. Ortega s/p s tracheostomy 09/15 Pulm toilet, trach care CV: Hypertension- improved. Dyslipidemia Elevated troponin - likely strain Metoprolol 12.5 mg by mouth 3 times a day Echo 08/14 showed EF 65-70% mild AR/TR On Pravachol 20 mg a night for dyslipidemia Renal/: Acute kidney injury - requiring hemodialysis Dr. Tan -nephrology following. Hemodialysis Sunday//Sunday MIKE: ATN from sepsis syndrome and diminished renal perfusion ; also aminoglycoside induced nephrotoxicity likely also contributing; possibly AIN -> per nephrology note Urine eosinophils negative. Renal ultrasound revealed no hydronephrosis Monitor renal function, I/O's, avoid nephrotoxins On Bumex 2mg IV BID nephrology HD 09/30 with planned removal 5 L 10/05 GI: Elevated transaminases Cholelithiasis US liver: Fatty liver and cholelithiasis. Repeat 09/08 revealed cholelithiasis with no acute signs of cholecystitis. Recommend a HIDA scan if indicated On TF Nepro's 45 cc an hour and beneprotein 2 packs 3 times a day s/p PEG placement 09/01/[address] Stone Mac/Winston LopesaLAX for bowel regimen. Pepcid 20 mg liquid daily GI prophylaxis ID: Pseudomonas pneumonia Funguria, Maribell glabrata and parapsilosis. Continue with abx (Zerbaxa, vancomycin). ID is following. Pertinent cultures blood and sputum cx 08/15- NG strep pneumonia and Legionella urinary Ag negative Blood cultures 08/28: NGTD C Diff negative 08/28. Lines changed 08/28. Sputum 08/30 - Pseudomonas Sputum 09/02 PSAE, resistant to carbapenem, intermediate to Levaquin. 09/07 - urine -Maribell Guilliermondii 09/07 - blood cultures 2 - no growth 09/09 - urine -strep viridans, Maribell parapsilosis 09/10 - blood cultures 2 -no growth 09/11 - broch washings -no growth to date 09/12 - urine -Maribell glabrata and parapsilosis 09/16 - blood cultures 2 - pending 09/16 - sputum -no growth 09/16 - urine -Maribell glabrata and parapsilosis 10/02 - blood cultures 2 - staph epi 10/02 - urine - ESBL positive Klebsiella 10/04 - blood cultures 2 - pending 10/05 - blood cultures 2 - pending Zosyn previously discontinued secondary to rash Heme: Normocytic anemia Left IJ/subclavian nonocclusive thrombus Peripheral smear with leukoerythroblastosis - likely reactive Monitor CBC, s/p transfusion 1unit PRBC with HD 09/29 On heparin drip bridging to therapeutic INR with Warfarin 7.5 mg daily. Monitor PTT/INR INR currently 1.7 Endo: Diabetes mellitus Hypothyroidism on SSI (medium scale) for glycemic control On Synthroid 200mcg daily. TSH 1.37 GI prophylaxis-Protonix 40mg Q12 DVT - Heparin gtt/Coumadin d/c heparin drip once INR>2.0 - Continue , SCDs Lines: Peripheral IV. - PEG 09/01/16 - Trach 09/15 -Right Permacath placed 09/29 Level 2 Loree Marinelli, daughter (HCP): [phone] Rony Marinelli, significant other: [phone] Problem Qualifiers (1) CHF (congestive heart failure): Qualified Code: I50.9 - Acute congestive heart failure, unspecified congestive heart failure type (2) Respiratory failure: Qualified Code: J96.02 - Acute respiratory failure with hypercapnia (3) Pneumonia: Qualified Code: J18.9 - Pneumonia of both lungs due to infectious organism, unspecified part of lung Tutu Hoffman MD October 07, 2016 11:54
[2016-10-07] MEDS: HEPARIN-D5W 25,000 U/250 ML 250 ML IV SCH (11:55)
--- NOTE | 2016-10-07 12:07 | HHI.NPPN ---
Subjective General Problems: Edema, Hypotension, Obesity Renal Failure: Acute Additional Remarks s/p trach on vent Review of Systems General Constitutional: Fever General Remarks unable to evaluate Objective Data Data 10/06/16 10/07/16 18:59 06:59 Intake Total 971 ml 1030 ml Output Total 0 ml Balance 971 ml 1030 ml IV Total 456 ml 480 ml Tube Feeding 390 ml 550 ml Other 125 ml Output Urine Total 0 ml # Bowel Movements 2 1 Vital Signs Date Time Temp Pulse Resp B/P Pulse Ox O2 Delivery O2 Flow Rate FiO2 10/07/16 11:15 94 40 10/07/16 10:00 88 10/07/16 08:00 40 10/07/16 08:00 99.9 79 12 82/52 94 10/07/16 08:00 84 10/07/16 07:58 94 40 10/07/16 06:00 98 10/07/16 04:00 98.5 113 12 137/97 93 10/07/16 04:00 40 10/07/16 04:00 93 10/07/16 03:26 96 40 10/07/16 02:00 90 10/07/16 00:00 45 10/07/16 00:00 100.6 101 12 119/74 92 10/07/16 00:00 91 10/06/16 23:57 96 45 10/06/16 22:00 101 10/06/16 20:00 99.6 95 12 103/60 92 10/06/16 20:00 95 10/06/16 20:00 45 10/06/16 19:43 98 45 10/06/16 18:00 97 10/06/16 16:02 97 45 10/06/16 16:00 99.5 92 12 128/76 10/06/16 16:00 45 10/06/16 16:00 93 10/06/16 14:00 86 -: 10/07/16 0508 10/07/16 0508 Tubes & Lines: Perma-Cath Tubes & Lines Comment trach, PEG Drip Comment heparin only Physical Exam General Appearance: No Acute Distress, Comfortable, Obese Throat Throat Exam: Oral Mucosa [place] & Moist Neck Neck Exam: Neck Supple Pulmonary Resp Exam: Rhonchi, Sputum, Diminished Breath Sounds Cardiology CV Exam: Regular, Normal Sinus Rhythm, Good Perfusion Gastrointestinal/Abdomen GI Exam: Soft, Bowel Sounds Present, Distended Musculoskeletal MS Exam: Joints Intact Integumentary Skin Exam: Warm, Dry Extremeties Extremities Exam: Dependent Edema Neurologic Neuro Exam: Awake VTE Prophylaxis Device: SCDs Assessment/Plan Assessment Summary: MIKE/Acute Renal Failure, Acute Tubular Necrosis, Fluid/ Volume Overload Electrolyte Assessment: Hyponatremia Problem List: (1) Acute kidney injury Plan: ARF ATN on hemodialysis HD initiated 09/20; she is dialysis dependent and currently on TTS schedule. s/p PermCath placement hemodialysis done today 4 L UF tolerated it well continue Nepro tube feeding ,avoid free water flushes due to hyponatremia; continue PhosLo for hyperphosphatemia Avoid nephrotoxic agents. await signs of renal recovery, Continue supportive care. (2) ARDS (adult respiratory distress syndrome) Plan: s/p trach placement continue Ventilator support Director Of Customer Service managing. Sanaz when able (3) Anemia Plan: Hb low but stable on heparin and protonix GI following, (4) Pneumonia Plan: febrile with leukocytosis; recent sputum culture showing Pseudomonas multidrug resistant organisms. ID following. She is now on Zerbaxa (5) Hypothyroidism Plan: on synthroid (6) Morbid obesity (7) DVT (deep venous thrombosis) Plan: in IJ after central line placement (provoked) on heparin bridge to Coumadin , follow INR Problem Qualifiers (1) Pneumonia: Qualified Code: J18.9 - Pneumonia of both lungs due to infectious organism, unspecified part of lung Babs Cruz MD October 07, 2016 12:07 Babs Cruz MD October 07, 2016 12:07
--- NOTE | 2016-10-07 15:11 | HHI.PR ---
Subjective Remarks Awake and on vent support , FIO2 at 40 %. Has been on CPAP for 4 hrs Was dialyzed Objective Vital Signs Date Time Temp Pulse Resp B/P Pulse Ox O2 Delivery O2 Flow Rate FiO2 10/07/16 15:04 95 40 10/07/16 14:00 102 10/07/16 12:00 99.8 105 16 140/78 96 10/07/16 12:00 40 10/07/16 12:00 105 10/07/16 11:30 40 10/07/16 11:15 94 40 10/07/16 10:00 88 10/07/16 08:00 40 10/07/16 08:00 99.9 79 12 82/52 94 10/07/16 08:00 84 10/07/16 07:58 94 40 10/07/16 06:00 98 10/07/16 04:00 98.5 113 12 137/97 93 10/07/16 04:00 40 10/07/16 04:00 93 10/07/16 03:26 96 40 10/07/16 02:00 90 10/07/16 00:00 45 10/07/16 00:00 100.6 101 12 119/74 92 10/07/16 00:00 91 10/06/16 23:57 96 45 10/06/16 22:00 101 10/06/16 20:00 99.6 95 12 103/60 92 10/06/16 20:00 95 10/06/16 20:00 45 10/06/16 19:43 98 45 10/06/16 18:00 97 10/06/16 16:02 97 45 10/06/16 16:00 99.5 92 12 128/76 10/06/16 16:00 45 10/06/16 16:00 93 I/O 10/06/16 10/06/16 10/06/16 10/07/16 10/07/16 10/07/16 07:00 15:00 23:00 07:00 15:00 23:00 Intake Total 931 ml 971 ml 671 ml 359 ml 580 ml Output Total 0 ml 0 ml 4000 ml Balance 931 ml 971 ml 671 ml 359 ml -3420 ml Intake Oral 0 ml IV Total 677 ml 456 ml 307 ml 173 ml 275 ml Tube Feeding 254 ml 390 ml 364 ml 186 ml 205 ml Other 125 ml 100 ml Output Urine Total 0 ml 0 ml 0 ml Hemodialysis 4000 ml # Voids 1 # Bowel Movements 1 2 0 1 1 Result Diagram: 10/07/16 0508 10/07/16 0508 Objective Remarks This is an obese middle-aged white female who is responsive HEENT: Head normocephalic. Pupils react. Neck: No bruits, no thyroid enlargement, no lymphadenopathy. Chest: Decreased breath sounds. Few basal crackles. Heart: Heart sounds were regular. S1-S2 no murmur, no S3. Abdomen: Soft, benign. No masses, or tenderness. Bowel sounds are active. Extremities: Mild edema . Neuro :Moves feet. Awake . Assessment and Plan Assessment and Plan IMPRESSION 1. Acute hypercapnic respiratory failure. 2. Pulmonary edema. 3. Drug rash 4. Obstructive sleep apnea syndrome 5. Hypertension 6. Hypothyroidism. 7. MIKE Plan : 1. Cont weaning vent and FIO2 to 40 % 2. Trach toilet and suctioning. 3. Nebs qid , duoneb. 4. Daily CPAP trial upto 12 Hrs 5. T Bar 50 % in am 6. Dialysis as planned 7. Tube feeds at 50 CC Abimael Beck MD October 07, 2016 15:11
[2016-10-07] MEDS: WARFARIN SOD 5 MG TAB PO SCH (17:22)
[2016-10-07] MEDS: PRAVASTATIN SOD 20 MG TAB PO SCH (20:40)
[2016-10-07] MEDS: MELATONIN 5 MG TAB PO SCH (20:40)
[2016-10-07] MEDS: ACETAMINOPHEN 325 MG TAB PO PRN (20:43)
[2016-10-08] VITALS (19 sets, daily range): BP systolic 116–151; BP diastolic 68–93; PULSE 89–119; RESP 18–26; TEMP 99–99.9; O2SAT 94–98
[2016-10-08] MEDS: HEPARIN-D5W 25,000 U/250 ML 250 ML IV SCH ×2 (00:02→13:59)
[2016-10-08] MEDS: CEFTOLOZANE-TAZOBACTAM INJ 150 MG in SODIUM CHLORIDE 0.9% INJ 100 ML IV SCH ×3 (03:42→20:07)
[2016-10-08] MEDS: CHLORHEXIDINE GLUCONATE 2 % 1 PACK (2 CLOTHS) TOP SCH (04:00)
[2016-10-08] MEDS: RESP: ALBUTEROL 2.5 MG/IPRATROPIUM 0.5 MG NEB (SCH) INH ×4 (04:26→21:19)
[2016-10-08] MEDS: METOCLOPRAMIDE HCL 10 MG/2 ML VIAL IV PUSH SCH ×3 (05:04→20:05)
[2016-10-08] MEDS: METOPROLOL TARTRATE 25 MG TAB G-TUBE SCH ×3 (05:04→20:04)
[2016-10-08] MEDS: QUEtiapine FUMARATE 25 MG TAB PO SCH ×3 (05:04→20:05)
[2016-10-08] MEDS: LEVOTHYROXINE SODIUM 200 MCG TAB PO SCH (05:04)
[2016-10-08 06:32] LABS: HEMATOCRIT 25.7 % (35.0-46.0); MEAN CELL VOLUME 83.3 FL (80.0-100.0); MEAN CORPUSCULAR HEMOGLOBIN 28.2 PG (27.0-34.0); MEAN CORPUSCULAR HGB CONC 33.9 % (32.0-36.0); PLATELET COUNT 346 TH/MM3 (150-450); RED BLOOD COUNT 3.09 MIL/MM3 (4.00-5.30); RED CELL DISTRIBUTION WIDTH 18.7 % (11.6-17.2); WHITE BLOOD COUNT 10.4 TH/MM3 (4.0-11.0)
[2016-10-08 06:34] LABS: REVIEW FLAG FINAL
[2016-10-08] MEDS: DOCUSATE SODIUM 100 MG/10 ML UDC PO SCH ×2 (08:29→20:03)
[2016-10-08] MEDS: CALCIUM ACETATE 667 MG CAP PO SCH ×3 (08:29→17:03)
[2016-10-08] MEDS: POLYETHYLENE GLYCOL 17 GM PKG PO SCH ×2 (08:29→20:03)
[2016-10-08] MEDS: EUCERIN CREAM 120 GM JAR TOPICAL SCH ×2 (08:29→20:06)
[2016-10-08] MEDS: SENNOSIDES SYRUP 8.8 MG/5 ML CUP PO SCH ×2 (08:29→20:04)
[2016-10-08] MEDS: ARTIFICIAL TEARS OPTH SOLN 15 ML BTL EACH EYE SCH ×3 (08:29→17:04)
[2016-10-08] MEDS: BENEPROTEIN POWDER 1 PACK G-TUBE SCH ×3 (08:30→17:04)
[2016-10-08] MEDS: SODIUM CHLORIDE 0.9% FLUSH 10 ML FLUSH IV FLUSH SCH ×2 (08:30→20:06)
[2016-10-08] MEDS: SODIUM CHLORIDE 0.9% FLUSH 10 ML FLUSH IVF SCH (08:30)
[2016-10-08 10:59] LABS: APTT (PATIENT) 65.8 SEC (24.3-30.1); INTERNATIONAL NORMALIZED RATIO 1.6 RATIO
[2016-10-08] MEDS: PANTOPRAZOLE SODIUM 40 MG VIAL IV PUSH SCH (11:52)
[2016-10-08] MEDS: SODIUM CHLORIDE 0.9% FLUSH 10 ML FLUSH IVF PRN (11:53)
--- NOTE | 2016-10-08 11:59 | HHI.CCPN ---
Subjective Remarks/Hospital Course 56-year-old morbidly obese female brought in the emergency department in respiratory distress. She was intubated by ER attending. She has been sick for about a week with symptoms consistent with UTI. She's had fevers and chills. She's been short of breath. She's had fatigue. She has had a cough and chest pain with coughing. The family reports that she's been delirious for the last 3 days. 08/15 Patient is sedated with Diprivan, Versed, Fentanyl and intubated. CTA chest showed no PE multifocal consolidation greatest in RLL. Tmax 100.6 08/16 Patient is sedated with Diprivan and Fentanyl. Afebrile. CXR this morning showed increase consolidation. 08/17 Patient remains sedated and intubated. T:100.4 On PRVC/AC RR 18, Tv 500, IT :1.0 PEEP:10, FIO2 75% 08/18 Remains sedated and intubated. Afebrile. CXR this morning unchanged bibasilar infiltrates and effusions. 08/19 Patient was placed on rotoprone bed last night for proning sedated with Diprivan, Versed and Fentnayl in addition she is on Nimbex. On PRVC/AC RR 20, TV 400, IT:1.1, PEEP:14 and FIO2 80%. Afebrile. 08/20 Patient remains sedated and intubated. Remains on PRVC/AC mode with improvements in her oxygenation on FIO2 50% from 80% yesterday and PEEP:12. 08/21 Patient remains sedated and intubated. On PRVC/AC mode with RR 20, TV 400, IT:1.1, PEEP: 12 and FIO2 50%. Afebrile. 08/22 No acute events overnight. Remains sedated, intubated and on Nimbex.. T: 99.8. On PRVC mode with PEP: 12, FIO2 50%. CXR from yesterday showed better aeration, RLL infiltrate unchanged. 08/23 Chest x-ray worsening. Methylprednisolone taper to twice a day by pulmonary. The patient's FiO2 was found to be 100% this a.m., will continue to wean. 08/24: 1 desat episode yesterday when supine. still remains prone now. no vasopressors. sedated and paralyzed. 08/25: flolan added yesterday. fio2 down to 60%. remained supine all night. still on neuromuscular blockade. net -500cc/24h. 08/26: good diuresis. remained supine. fio2 70%. weaning flolan. remains with significant respiratory support and high peep despite 6L diuresis overnight. Cr still stable. 08/27: continues with good diuresis. net negative 3L/24h. fio2 down to 55%. flolan off. still high peep. not ready for SBT. more agitated today. Cr remains stable despite aggressive diuresis. 08/28: diuresis continues. -3.3L/24h. spiked fever overnight with a jump in wbc to 16 this AM. fio2 60%, but her pulmonary improvements have plateaued at this point. still on peep 12. 08/29: net -1.7L/24h. Cr starting to rise. still spiking fevers despite vanc/ cefepime added yesterday. wbc continues to rise. clinically appears infected, although unclear source. peep 10, fio2 60%. will likely need trach. 08/30: net +800cc, but Cr downtrending. appears clinically euvolemic. fever curve downtrending. wbc downtrending. on 40% fio2, peep 8 today. still following commands. 08/31: failed SBT after only 45 minutes yesterday. intubated for > 2 weeks at this point. will attempt to pursue trach/peg today. will continue with pulmonary strengthening. daily SBTs. 09/01 CXR showing increasing bibasilar infiltrate. Failed C Pap trial in 5 minutes due to severe tachypnea. PEG tube today. Family has not decided on trach yet 09/02: Patient febrile to 101.1, CXR increased infiltrate Tmax Tmax 101.1. Currently 9.7 left upper lung and right lower lobe. Pancultured. Cefepime added today and one dose of vancomycin. Continues to fail C Pap trial due to tachypnea and respiratory distress 09/03: Remains hypoxemic on 75% oxygen with new pneumonia. Sputum culture 09/02/16 with GNR. Family agreeable for tracheostomy but patient is not stable at this point for trach 09/04: still on 70% fio2. still hypoxic. pneumonia persists. needs trach, but too unstable at this point. 09/05: remains on 75% fio2. pseudomonas sensitivities came back resistant to carbapenems, intermediate to levaquin. still spiking fevers. not clinically improving. wbc remains elevated. 09/06: Remains on 12 of PEEP and FiO2 75%. Zosyn and tobramycin started yesterday. WBC count trending down today 11.5 from 13.1. Remains heavily sedated for ventilator synchrony. MAXIMUM TEMPERATURE 100.3 09/07: Continues to spike fever. CXR unchanged. WBC count improving. PEEP 14. FiO2 60%. Will start IV Bumex 1mg IV q12 09/09: Tolerating tube feeds at goal. Afebrile. No documented bowel movement. Currently sedated on the ventilator 09/10: Tmax 99.7. Currently 99.4. No bowel movement yesterday. None document since 09/04. Arousable on the ventilator 09/11: Tmax 102.6. Currently 100. Positive BM. Arousable on the ventilator. Tolerating tube feeds. Central line changed yesterday. Plan for bronchoscopy at 1 PM. 09/12: Tmax 100.1. Currently afebrile. Follows commands today. Wiggles toes and give thumbs up appropriately. MRI brain canceled. Tolerating tube feeding with positive BM. Tracheostomy currently planned for . 09/13: Tmax 102. Again on sedation [place] commands by wiggling toes bilaterally and giving thumbs up bilaterally appropriate. Tolerating tube feeding with positive BM. Tracheostomy planned for tomorrow with Dr. Ortega. 09/14: Low grade fever. CXR showing more prominent infiltrate on the right lower lobe and left upper lobe. WBC trending up still in normal range. Patient is on 40% FiO2 but continues to fail CPAP due to tachypnea 09/15: Remains intubated sedated, unable to wean off the vent. Plan for tracheostomy today with Dr. Ortega. Continues to have low grade fever. CXR with persistent bibasilar infiltrates 09/16: Tmax 101.1. Currently 100.7. Awake and alert. Following commands. 09/17: Afebrile. Currently on PSV trial. Tolerating tube feeds. One bowel movement. Noted decreased urine output past 48 hours. Diuretics have been discontinued. This a.m. creatinine currently pending. 09/18: Afebrile. Adequate urine output yesterday but decreased 150 past 8 hours. Tolerating tube feeds. One bowel movement. Not tolerating PSV trials today. 09/19: Tmax 100.5. Urine output picking up. Tolerating tube feeds. No bowel movement 48 hours. Not tolerating PSV trials. 09/20: Diffuse drug morbilliform exanthem noted this a.m. Tmax 100.6. Urine output around 20 cc an hour. Not tolerating PSV trials. Possibly new right pleural effusion noted on chest x-ray. Will need hemodialysis 09/21: Tmax 100.6 currently 98.7. -4 L with hemodialysis yesterday and today. FiO2 to 60%. Tolerating tube feeds. Positive BM. Still requiring sedation 09/22: Afebrile. Tolerating tube feeds. Positive BM. 30 g per kilogram per minute of propofol. Tolerated PSV trials 3 hours today 09/23 HD today with 3.5 L removal. Tolerating CPAP for 8 hours, currently 45% with RSBI 45%. 09/24 Called by RN this morning for concern for bloody BMs. Placed heparin and warfarin on hold. Serial Hgb ordered. Hgb 9.3 -->8.6 and hemodynamically unchanged. Started on protonix drip. Heme stool is negative and now RN states she is concerned about the adequacy of specimen, so sending repeat. Had asked GI to see, however further workup will not be indicated if hemoccult is negative. Tolerating PSV 05/06 09/25: heparin restarted. hemocult negative x 2. 09/26: no changes. still failing cpap trials. 09/27: Tmax 101.5. Currently 99.5. Resting on Diprivan drip at 25 mcg/kg/m. Currently tolerating tube feeding.. One bowel movement. 09/28: Hemoglobin trending downward. Transfusing 1 unit PRBCs with hemodialysis today. Currently afebrile. Appears comfortable ventilator 2 bowel movements 09/29 No events overnight. Sedated with Diprivan and on ventilator via trach. T: 99.9 For Perma Cath placement today. s/p HD yesterday with removal 4L and transfusion 1unit PRBC with HD. 09/30: Tmax 100.8. No events overnight. No bowel movement. Tolerating tube feeds. 10/01: Tmax 101.3. Currently resting in bed in no acute distress. Tolerating tube feeds. Chest x-ray revealed atelectasis. -5 L with hemodialysis yesterday. 10/02 Patient remains on ventilator via trach on PRVC/AC with PEEP: 10 and FIO2 50 %. T: 102.1 at 4 am. 10/03 Patient is off sedation on ventilator via trach. Tmax 101.2 last night. For HD today. 10/04: Tmax 101.5. Currently afebrile. Tolerating PSV trial. Hemodialysis - 4.5 L yesterday. Positive BM. New rash. Received chlorhexidine today. 10/05: Tmax 100. Currently 98.9. Positive BM. Tolerating tube feeds. Less erythematous today. Currently on dialysis 10/06: Tmax 99.9. Currently 99.7. Currently on PSV trial 09/12 @ 45%. Tolerating tube feed. Positive bowel movement 10/07: Tmax 99.8. currently psv 10/8/40%. has not been out of bed in weeks due to critical illness. needs to be mobilized. still no placement plan. Subjective 10/08: Tmax 100.4. on t-piece currently. tolerated psv yesterday. have ordered specialty chair and currently awaiting it to arrive. Objective Vital Signs Date Time Temp Pulse Resp B/P Pulse Ox O2 Delivery O2 Flow Rate FiO2 10/08/16 11:00 117 10/08/16 08:00 97 40 10/08/16 08:00 99.3 26 125/82 Intake and Output 10/07/16 10/07/16 10/08/16 08:00 16:00 00:00 Intake Total 359 ml 580 ml 593 ml Output Total 0 ml 4000 ml 0 ml Balance 359 ml -3420 ml 593 ml Result Diagram: 10/08/16 0506 10/07/16 0508 Imaging Last Impressions Chest X-Ray 10/04/16 0000 Signed Impressions: Service Date/Time: Tuesday, October 04, 2016 04:47 - CONCLUSION: 1. Pulmonary vascular engorgement. 2. Developing intra-alveolar infiltrate right lung base. Infectious etiology versus asymmetrical pulmonary edema. Taco Haas Jr., MD Catheter Placement X-Ray 09/29/16 1223 Signed Impressions: Service Date/Time: Thursday, September 29, 2016 12:31 - CONCLUSION: Vas-Cath to PermCath exchange as detailed above. Taco Haas Jr., MD Renal Ultrasound 09/17/16 Signed Impressions: Service Date/Time: Saturday, September 17, 2016 13:31 - CONCLUSION: Negative renal sonogram. Taco Davidson MD Upper Extremity Ultrasound 09/14/16 0000 Signed Impressions: Service Date/Time: August 08:32 - CONCLUSION: There is thrombus within the left subclavian and internal jugular veins. Danyel Escalante MD Lower Extremity Ultrasound 09/13/16 0000 Signed Impressions: Service Date/Time: Tuesday, September 13, 2016 22:33 - CONCLUSION: Normal examination. Leonides Mason MD Liver Ultrasound 09/08/16 Signed Impressions: Service Date/Time: Thursday, September 08, 2016 08:45 - CONCLUSION: 1. Cholelithiasis with distended gallbladder. However, there are no associated findings present to diagnose acute cholecystitis. If there is persistent clinical concern for acute cholecystitis could evaluate for cystic duct obstruction with hepatobiliary scintigraphy. 2. Hepatomegaly with very heterogeneous echotexture and steatosis. Dejan Allison MD Gall Bladder Ultrasound 08/29/16 Signed Impressions: Service Date/Time: Monday, August 29, 2016 15:21 - CONCLUSION: 1. Hepatomegaly with heterogeneous echotexture throughout the liver. 2. There is a large echogenic area near the neck of the gallbladder suggestive of a stone, but despite its large size, demonstrates no acoustic shadowing in any of the views. Taco Davidson MD CT Angiography 08/15/16 Signed Impressions: Service Date/Time: Monday, August 15, 2016 02:33 - CONCLUSION: 1. No evidence for pulmonary embolism. 2. Multifocal consolidation greatest in the right lower lobe and associated adenopathy. Terry Estrada MD Objective Remarks GENERAL: 56 yo female currently resting in bed on t-piece today SKIN: Warm and dry. Skin is flaky. Rash much improved/less erythematous. Noted stage I to 2 decubitus ulcer\coccyx and back covered with Mepilex HEAD: Normocephalic. EYES: No scleral icterus. No injection or drainage. NECK: Neck is obese. Right subclavian hemodialysis catheters clean dry and intact. Tracheostomy is clean dry and intact CARDIOVASCULAR: RRR. sinus by tele. RESPIRATORY: Diminished breath sounds throughout due to body habitus GASTROINTESTINAL: Abdomen obese, soft, non-tender, hypoactive active bowel sounds. G-tube is clean dry and intact MUSCULOSKELETAL: Crinkling of bilateral lower extremities. 1+ edema BUE. Neuro: Awake, makes eye contact and nods to questions. Currently following commands moving upper and lower extremity spontaneously. A/P Problem List: (1) ARDS (adult respiratory distress syndrome) ICD Code: J80 Status: Acute (2) CHF (congestive heart failure) ICD Code: I50.9 Status: Acute (3) Respiratory failure ICD Code: J96.90 Status: Acute (4) Pneumonia ICD Code: J18.9 Status: Acute Assessment and Plan Neuro/Psych: Acute toxic metabolic encephalopathy Agitated delirium- improving. Off sedation. Monitor neuro status. Fentanyl allergy On Seroquel 75 mg every 8 hours and oxycodone 10 mg every 4 hours EEG 09/09 moderate to severe encephalopathy good sleep/wake hygeine. melatonin 5mg po qHS for sleep. Pulm: Acute on chronic hypercapnic and hypoxemic respiratory failure ARDS- resolved. Pneumonia community-acquired, now with HCAP with carbapenem-resistant pseudomonas and ESBL Klebsiella VAP. Probable JOE continue to aggressively wean vent support- t-piece trials daily, psv, and only rest on full support if failing psv. Ventilator bundle. Bronchodilator therapy every 4 hours and as needed Pulm has followed- Dr. Beck Gen surgery Dr. Ortega s/p s tracheostomy 09/15 Pulm toilet, trach care CV: Hypertension- improved. Dyslipidemia Elevated troponin - likely strain Metoprolol 12.5 mg by mouth 3 times a day Echo 08/14 showed EF 65-70% mild AR/TR On Pravachol 20 mg a night for dyslipidemia Renal/: Acute kidney injury - requiring hemodialysis Dr. Tan -nephrology following. Hemodialysis Sunday//Sunday MIKE: ATN from sepsis syndrome and diminished renal perfusion ; also aminoglycoside induced nephrotoxicity likely also contributing; possibly AIN -> per nephrology note Urine eosinophils negative. Renal ultrasound revealed no hydronephrosis Monitor renal function, I/O's, avoid nephrotoxins On Bumex 2mg IV BID nephrology HD 09/30 with planned removal 5 L 10/05 GI: Elevated transaminases Cholelithiasis US liver: Fatty liver and cholelithiasis. Repeat 09/08 revealed cholelithiasis with no acute signs of cholecystitis. Recommend a HIDA scan if indicated On TF Nepro's 45 cc an hour and beneprotein 2 packs 3 times a day s/p PEG placement 09/01/[address] Stone Mac/Moses, MiraLAX for bowel regimen. Pepcid 20 mg liquid daily GI prophylaxis ID: Pseudomonas pneumonia Funguria, Maribell glabrata and parapsilosis. Continue with abx (Zerbaxa, vancomycin). ID is following. Pertinent cultures blood and sputum cx 08/15- NG strep pneumonia and Legionella urinary Ag negative Blood cultures 08/28: NGTD C Diff negative 08/28. Lines changed 08/28. Sputum 08/30 - Pseudomonas Sputum 09/02 PSAE, resistant to carbapenem, intermediate to Levaquin. 09/07 - urine -Maribell Guilliermondii 09/07 - blood cultures 2 - no growth 09/09 - urine -strep viridans, Maribell parapsilosis 09/10 - blood cultures 2 -no growth 09/11 - broch washings -no growth to date 09/12 - urine -Maribell glabrata and parapsilosis 09/16 - blood cultures 2 - pending 09/16 - sputum -no growth 09/16 - urine -Maribell glabrata and parapsilosis 10/02 - blood cultures 2 - staph epi 10/02 - urine - ESBL positive Klebsiella 10/04 - blood cultures 2 - pending 10/05 - blood cultures 2 - pending Zosyn previously discontinued secondary to rash Heme: Normocytic anemia Left IJ/subclavian nonocclusive thrombus Peripheral smear with leukoerythroblastosis - likely reactive Monitor CBC, s/p transfusion 1unit PRBC with HD 09/29 On heparin drip bridging to therapeutic INR with Warfarin 7.5 mg daily. Monitor PTT/INR INR currently 1.6 Endo: Diabetes mellitus Hypothyroidism on SSI (medium scale) for glycemic control On Synthroid 200mcg daily. TSH 1.37 GI prophylaxis-Protonix 40mg Q12 DVT - Heparin gtt/Coumadin d/c heparin drip once INR>2.0 - Continue , SCDs Lines: Peripheral IV. - PEG 09/01/16 - Trach 09/15 -Right Permacath placed 09/29 Level 2 Loree Marinelli, daughter (HCP): [phone] Rony Marinelli, significant other: [phone] Problem Qualifiers (1) CHF (congestive heart failure): Qualified Code: I50.9 - Acute congestive heart failure, unspecified congestive heart failure type (2) Respiratory failure: Qualified Code: J96.02 - Acute respiratory failure with hypercapnia (3) Pneumonia: Qualified Code: J18.9 - Pneumonia of both lungs due to infectious organism, unspecified part of lung Tutu Hoffman MD October 08, 2016 11:59
--- NOTE | 2016-10-08 12:45 | HHI.NPPN ---
Subjective General Problems: Edema, Hypotension, Obesity Renal Failure: Acute Additional Remarks s/p trach on vent trial on T bar for 2 hrs got tired and back on vent Review of Systems General Constitutional: Fever General Remarks unable to evaluate Objective Data Data 10/07/16 10/08/16 18:59 06:59 Intake Total 580 ml 981 ml Output Total 4000 ml 70 ml Balance -3420 ml 911 ml IV Total 275 ml 351 ml Tube Feeding 205 ml 570 ml Other 100 ml 60 ml Output Urine Total 0 ml 10 ml Stool Total 60 ml Hemodialysis 4000 ml # Voids 1 # Bowel Movements 1 1 Vital Signs Date Time Temp Pulse Resp B/P Pulse Ox O2 Delivery O2 Flow Rate FiO2 10/08/16 11:00 117 10/08/16 10:00 92 10/08/16 09:00 107 10/08/16 08:00 97 40 10/08/16 08:00 104 10/08/16 08:00 99.3 104 26 125/82 96 10/08/16 06:00 90 10/08/16 04:24 96 40 10/08/16 04:00 40 10/08/16 04:00 99.0 101 18 145/93 94 10/08/16 04:00 101 10/08/16 02:00 91 10/08/16 01:16 94 40 10/08/16 00:00 40 10/08/16 00:00 99.5 89 18 116/68 95 10/08/16 00:00 89 10/07/16 22:37 97 40 10/07/16 22:37 40 10/07/16 22:00 93 10/07/16 20:00 40 10/07/16 20:00 100.4 92 18 111/68 92 10/07/16 20:00 92 10/07/16 19:44 92 40 10/07/16 18:00 110 10/07/16 16:00 40 10/07/16 16:00 98.8 90 16 110/73 93 10/07/16 16:00 90 10/07/16 15:04 95 40 10/07/16 14:00 102 -: 10/08/16 0506 10/07/16 0508 Tubes & Lines: Perma-Cath Tubes & Lines Comment trach, PEG Drip Comment heparin only Physical Exam General Appearance: No Acute Distress, Comfortable, Obese Throat Throat Exam: Oral Mucosa Decherd & Moist Neck Neck Exam: Neck Supple Pulmonary Resp Exam: Rhonchi, Sputum, Diminished Breath Sounds Cardiology CV Exam: Regular, Normal Sinus Rhythm, Good Perfusion Gastrointestinal/Abdomen GI Exam: Soft, Bowel Sounds Present, Distended Musculoskeletal MS Exam: Joints Intact Integumentary Skin Exam: Warm, Dry Extremeties Extremities Exam: Dependent Edema Neurologic Neuro Exam: Awake VTE Prophylaxis Device: SCDs Assessment/Plan Assessment Summary: MIKE/Acute Renal Failure, Acute Tubular Necrosis, Fluid/ Volume Overload Electrolyte Assessment: Hyponatremia Problem List: (1) Acute kidney injury Plan: ARF ATN on hemodialysis HD initiated 09/20; she is dialysis dependent and currently on TTS schedule. s/p PermCath placement hemodialysis yesterday 4 L UF tolerated it well continue Nepro tube feeding ,avoid free water flushes due to hyponatremia; continue PhosLo for hyperphosphatemia weaning off ventilator trial started Avoid nephrotoxic agents. await signs of renal recovery, Continue supportive care. Dr. Tan to follow (2) ARDS (adult respiratory distress syndrome) Plan: s/p trach placement continue Ventilator support Nurse Staff [facility] Yo when able (3) Anemia Plan: Hb low but stable on heparin and protonix GI following, (4) Pneumonia Plan: febrile with leukocytosis; recent sputum culture showing Pseudomonas multidrug resistant organisms. ID following. She is now on Zerbaxa (5) Hypothyroidism Plan: on synthroid (6) Morbid obesity (7) DVT (deep venous thrombosis) Plan: in IJ after central line placement (provoked) on heparin bridge to Coumadin , follow INR Problem Qualifiers (1) Pneumonia: Qualified Code: J18.9 - Pneumonia of both lungs due to infectious organism, unspecified part of lung Babs Cruz MD October 08, 2016 12:45
--- NOTE | 2016-10-08 14:28 | HHI.PR ---
Subjective Remarks Awake and on vent support , FIO2 at 40 %. Has been on CPAP and was on T Piece for 1 hr Was dialyzed. Moves arms, and feet Objective Vital Signs Date Time Temp Pulse Resp B/P Pulse Ox O2 Delivery O2 Flow Rate FiO2 10/08/16 12:00 99.9 119 25 151/70 95 10/08/16 12:00 40 10/08/16 12:00 119 10/08/16 11:00 117 10/08/16 10:00 92 10/08/16 09:00 107 10/08/16 08:00 97 40 10/08/16 08:00 104 10/08/16 08:00 99.3 104 26 125/82 96 10/08/16 06:00 90 10/08/16 04:24 96 40 10/08/16 04:00 40 10/08/16 04:00 99.0 101 18 145/93 94 10/08/16 04:00 101 10/08/16 02:00 91 10/08/16 01:16 94 40 10/08/16 00:00 40 10/08/16 00:00 99.5 89 18 116/68 95 10/08/16 00:00 89 10/07/16 22:37 97 40 10/07/16 22:37 40 10/07/16 22:00 93 10/07/16 20:00 40 10/07/16 20:00 100.4 92 18 111/68 92 10/07/16 20:00 92 10/07/16 19:44 92 40 10/07/16 18:00 110 10/07/16 16:00 40 10/07/16 16:00 98.8 90 16 110/73 93 10/07/16 16:00 90 10/07/16 15:04 95 40 I/O 10/07/16 10/07/16 10/07/16 10/08/16 10/08/16 10/08/16 07:00 15:00 23:00 07:00 15:00 23:00 Intake Total 359 ml 580 ml 593 ml 388 ml Output Total 0 ml 4000 ml 0 ml 70 ml Balance 359 ml -3420 ml 593 ml 318 ml IV Total 173 ml 275 ml 251 ml 100 ml Tube Feeding 186 ml 205 ml 342 ml 228 ml Other 100 ml 60 ml Output Urine Total 0 ml 0 ml 0 ml 10 ml Stool Total 0 ml 60 ml Hemodialysis 4000 ml # Voids 1 # Bowel Movements 1 1 1 Result Diagram: 10/08/16 0506 10/07/16 0508 Objective Remarks This is an obese middle-aged white female who is responsive HEENT: Head normocephalic. Pupils react. Neck: No bruits, no thyroid enlargement, no lymphadenopathy. Chest: Decreased breath sounds. Occ Wheeze. Heart: Heart sounds were regular. S1-S2 no murmur, no S3. Abdomen: Soft, benign. No masses, or tenderness. Bowel sounds are active. Extremities: Mild edema . Neuro :Moves feet. Awake . Assessment and Plan Assessment and Plan IMPRESSION 1. Acute hypercapnic respiratory failure. 2. Pulmonary edema. 3. Drug rash 4. Obstructive sleep apnea syndrome 5. Hypertension 6. Hypothyroidism. 7. MIKE Plan : 1. T Bar Trial upto 2 hrs daily. 2. Trach toilet and suctioning. 3. Nebs qid , duoneb. 4. Daily CPAP trial upto 12 Hrs. Then to IMV 10 at HS 5. CXR in am 6. Dialysis as planned 7. Tube feeds at 50 CC Abimael Beck MD October 08, 2016 14:28
[2016-10-08] MEDS ORDERED: WARFARIN SOD 5 MG TAB PO ONE (16:00)
[2016-10-08] MEDS: WARFARIN SOD 5 MG TAB PO SCH (17:04)
[2016-10-08] MEDS: MELATONIN 5 MG TAB PO SCH (20:03)
[2016-10-08] MEDS: FAMOTIDINE 40 MG/5 ML LIQ 50 ML BTL NG SCH (20:03)
[2016-10-08] MEDS: PRAVASTATIN SOD 20 MG TAB PO SCH (20:04)
[2016-10-09] VITALS (28 sets, daily range): BP systolic 99–160; BP diastolic 56–121; PULSE 77–121; RESP 18–24; TEMP 97.7–99.9; O2SAT 92–98
[2016-10-09] MEDS: RESP: ALBUTEROL 2.5 MG/IPRATROPIUM 0.5 MG NEB (SCH) INH ×4 (03:53→21:48)
[2016-10-09] MEDS: CHLORHEXIDINE GLUCONATE 2 % 1 PACK (2 CLOTHS) TOP SCH (04:00)
[2016-10-09] MEDS: CEFTOLOZANE-TAZOBACTAM INJ 150 MG in SODIUM CHLORIDE 0.9% INJ 100 ML IV SCH ×3 (04:06→20:14)
[2016-10-09] MEDS: HEPARIN-D5W 25,000 U/250 ML 250 ML IV SCH ×2 (04:46→21:29)
[2016-10-09] MEDS: METOPROLOL TARTRATE 25 MG TAB G-TUBE SCH ×3 (05:53→20:13)
[2016-10-09] MEDS: METOCLOPRAMIDE HCL 10 MG/2 ML VIAL IV PUSH SCH (05:54)
[2016-10-09] MEDS: QUEtiapine FUMARATE 25 MG TAB PO SCH ×3 (05:54→21:29)
[2016-10-09] MEDS: LEVOTHYROXINE SODIUM 200 MCG TAB PO SCH (05:54)
--- NOTE | 2016-10-09 05:55 | RADRPT ---
EXAM DATE/TIME: 10/09/2016 04:49 [facility] COMPARISON: CHEST SINGLE AP, October 04, 2016, 4:47. INDICATIONS : Shortness of breath, possible pulmonary disease. MEDICAL HISTORY : Congestive heart failure. SURGICAL HISTORY : None. ENCOUNTER: Subsequent ACUITY: 1 month PAIN SCORE: Non-responsive. LOCATION: Bilateral chest FINDINGS: A single AP semierect view of the chest was obtained and again demonstrates a tracheostomy tube in pl [place]. The right subclavian double-lumen central venous line remains in place. The heart size is mildly prominent. There is mild hazy opacity at the lung bases. There are overlying electrocardiogram leads . There is no perihilar edema. CONCLUSION: Mild hazy opacity at the lung bases. This appears improved on the right. Scotty Huynh MD on October 09, 2016 at 5:53 Board Certified Radiologist. This report was verified electronically.
[2016-10-09 06:46] LABS: MEAN CELL VOLUME 83.7 FL (80.0-100.0); MEAN CORPUSCULAR HEMOGLOBIN 28.2 PG (27.0-34.0); MEAN CORPUSCULAR HGB CONC 33.7 % (32.0-36.0); PLATELET COUNT 374 TH/MM3 (150-450); RED BLOOD COUNT 2.86 MIL/MM3 (4.00-5.30); RED CELL DISTRIBUTION WIDTH 18.2 % (11.6-17.2); REVIEW FLAG FINAL; WHITE BLOOD COUNT 7.6 TH/MM3 (4.0-11.0)
[2016-10-09 07:08] LABS: APTT (PATIENT) 79.4 SEC (24.3-30.1); INTERNATIONAL NORMALIZED RATIO 1.6 RATIO; PROTHROMBIN TIME - PATIENT 18.6 SEC (9.8-11.6)
--- NOTE | 2016-10-09 08:33 | HHI.NPPN ---
Subjective General Problems: Edema, Hypotension, Obesity Renal Failure: Acute Additional Remarks on the vent. Patient had dialysis on Sunday. Oligoanuric. Review of Systems General Constitutional: Fever General Remarks unable to evaluate Objective Data Data 10/08/16 10/09/16 18:59 06:59 Intake Total 1265 ml 972 ml Output Total 2 ml Balance 1265 ml 970 ml IV Total 426 ml 466 ml Tube Feeding 479 ml 266 ml Other 360 ml 240 ml Output Urine Total 0 ml Stool Total 2 ml # Bowel Movements 2 Vital Signs Date Time Temp Pulse Resp B/P Pulse Ox O2 Delivery O2 Flow Rate FiO2 10/09/16 06:00 79 10/09/16 04:34 94 40 10/09/16 04:00 104 10/09/16 04:00 40 10/09/16 04:00 99.9 90 18 137/93 95 10/09/16 02:10 98 40 10/09/16 02:00 121 10/09/16 00:00 90 10/09/16 00:00 40 10/09/16 00:00 99.9 90 18 125/79 95 10/08/16 22:51 40 10/08/16 22:51 96 40 10/08/16 22:00 90 10/08/16 21:20 95 40 10/08/16 20:00 99.4 93 18 139/78 98 10/08/16 20:00 93 10/08/16 20:00 40 10/08/16 18:00 98 10/08/16 16:00 99.8 94 26 121/74 95 10/08/16 16:00 94 10/08/16 16:00 40 10/08/16 14:25 95 40 10/08/16 14:00 103 10/08/16 12:00 99.9 119 25 151/70 95 10/08/16 12:00 40 10/08/16 12:00 119 10/08/16 11:00 117 10/08/16 10:00 92 10/08/16 09:00 107 -: 10/09/16 0525 10/07/16 0508 Tubes & Lines: Perma-Cath Tubes & Lines Comment trach, PEG Drip Comment heparin only Physical Exam General Appearance: No Acute Distress, Comfortable, Obese Throat Throat Exam: Oral Mucosa Centuria & Moist Neck Neck Exam: Neck Supple Pulmonary Resp Exam: Rhonchi, Sputum, Diminished Breath Sounds Cardiology CV Exam: Regular, Normal Sinus Rhythm, Good Perfusion Gastrointestinal/Abdomen GI Exam: Soft, Bowel Sounds Present Musculoskeletal MS Exam: Joints Intact Integumentary Skin Exam: Warm, Dry Extremeties Extremities Exam: Dependent Edema Neurologic Neuro Exam: Awake VTE Prophylaxis Device: SCDs Assessment/Plan Assessment Summary: MIKE/Acute Renal Failure, Acute Tubular Necrosis, Fluid/ Volume Overload Electrolyte Assessment: Hyponatremia Problem List: (1) Acute kidney injury Plan: ARF ATN on hemodialysis HD initiated 09/20; she is dialysis dependent and currently on TTS schedule. 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 Avoid nephrotoxic agents. await signs of renal recovery, Continue supportive care. (2) ARDS (adult respiratory distress syndrome) Plan: s/p trach placement continue Ventilator support Dance Entertainer managing. Ween when able (3) Anemia Plan: Hb low but stable on heparin and protonix GI following, (4) Pneumonia Plan: febrile with leukocytosis; recent sputum culture showing Pseudomonas multidrug resistant organisms. ID following. She is now on Zerbaxa (5) Hypothyroidism Plan: on synthroid (6) Morbid obesity (7) DVT (deep venous thrombosis) Plan: in IJ after central line placement (provoked) on heparin bridge to Coumadin , follow INR Plan patient was seen and examined. Dialysis today. Await signs of renal recovery. Problem Qualifiers (1) Pneumonia: Qualified Code: J18.9 - Pneumonia of both lungs due to infectious organism, unspecified part of lung Anshu Tan MD October 09, 2016 08:33
--- NOTE | 2016-10-09 08:48 | HHI.CCPN ---
Subjective Remarks/Hospital Course 56-year-old morbidly obese female brought in the emergency department in respiratory distress. She was intubated by ER attending. She has been sick for about a week with symptoms consistent with UTI. She's had fevers and chills. She's been short of breath. She's had fatigue. She has had a cough and chest pain with coughing. The family reports that she's been delirious for the last 3 days. 08/15 Patient is sedated with Diprivan, Versed, Fentanyl and intubated. CTA chest showed no PE multifocal consolidation greatest in RLL. Tmax 100.6 08/16 Patient is sedated with Diprivan and Fentanyl. Afebrile. CXR this morning showed increase consolidation. 08/17 Patient remains sedated and intubated. T:100.4 On PRVC/AC RR 18, Tv 500, IT :1.0 PEEP:10, FIO2 75% 08/18 Remains sedated and intubated. Afebrile. CXR this morning unchanged bibasilar infiltrates and effusions. 08/19 Patient was placed on rotoprone bed last night for proning sedated with Diprivan, Versed and Fentnayl in addition she is on Nimbex. On PRVC/AC RR 20, TV 400, IT:1.1, PEEP:14 and FIO2 80%. Afebrile. 08/20 Patient remains sedated and intubated. Remains on PRVC/AC mode with improvements in her oxygenation on FIO2 50% from 80% yesterday and PEEP:12. 08/21 Patient remains sedated and intubated. On PRVC/AC mode with RR 20, TV 400, IT:1.1, PEEP: 12 and FIO2 50%. Afebrile. 08/22 No acute events overnight. Remains sedated, intubated and on Nimbex.. T: 99.8. On PRVC mode with PEP: 12, FIO2 50%. CXR from yesterday showed better aeration, RLL infiltrate unchanged. 08/23 Chest x-ray worsening. Methylprednisolone taper to twice a day by pulmonary. The patient's FiO2 was found to be 100% this a.m., will continue to wean. 08/24: 1 desat episode yesterday when supine. still remains prone now. no vasopressors. sedated and paralyzed. 08/25: flolan added yesterday. fio2 down to 60%. remained supine all night. still on neuromuscular blockade. net -500cc/24h. 08/26: good diuresis. remained supine. fio2 70%. weaning flolan. remains with significant respiratory support and high peep despite 6L diuresis overnight. Cr still stable. 08/27: continues with good diuresis. net negative 3L/24h. fio2 down to 55%. flolan off. still high peep. not ready for SBT. more agitated today. Cr remains stable despite aggressive diuresis. 08/28: diuresis continues. -3.3L/24h. spiked fever overnight with a jump in wbc to 16 this AM. fio2 60%, but her pulmonary improvements have plateaued at this point. still on peep 12. 08/29: net -1.7L/24h. Cr starting to rise. still spiking fevers despite vanc/ cefepime added yesterday. wbc continues to rise. clinically appears infected, although unclear source. peep 10, fio2 60%. will likely need trach. 08/30: net +800cc, but Cr downtrending. appears clinically euvolemic. fever curve downtrending. wbc downtrending. on 40% fio2, peep 8 today. still following commands. 08/31: failed SBT after only 45 minutes yesterday. intubated for > 2 weeks at this point. will attempt to pursue trach/peg today. will continue with pulmonary strengthening. daily SBTs. 09/01 CXR showing increasing bibasilar infiltrate. Failed C Pap trial in 5 minutes due to severe tachypnea. PEG tube today. Family has not decided on trach yet 09/02: Patient febrile to 101.1, CXR increased infiltrate Tmax Tmax 101.1. Currently 9.7 left upper lung and right lower lobe. Pancultured. Cefepime added today and one dose of vancomycin. Continues to fail C Pap trial due to tachypnea and respiratory distress 09/03: Remains hypoxemic on 75% oxygen with new pneumonia. Sputum culture 09/02/16 with GNR. Family agreeable for tracheostomy but patient is not stable at this point for trach 09/04: still on 70% fio2. still hypoxic. pneumonia persists. needs trach, but too unstable at this point. 09/05: remains on 75% fio2. pseudomonas sensitivities came back resistant to carbapenems, intermediate to levaquin. still spiking fevers. not clinically improving. wbc remains elevated. 09/06: Remains on 12 of PEEP and FiO2 75%. Zosyn and tobramycin started yesterday. WBC count trending down today 11.5 from 13.1. Remains heavily sedated for ventilator synchrony. MAXIMUM TEMPERATURE 100.3 09/07: Continues to spike fever. CXR unchanged. WBC count improving. PEEP 14. FiO2 60%. Will start IV Bumex 1mg IV q12 09/09: Tolerating tube feeds at goal. Afebrile. No documented bowel movement. Currently sedated on the ventilator 09/10: Tmax 99.7. Currently 99.4. No bowel movement yesterday. None document since 09/04. Arousable on the ventilator 09/11: Tmax 102.6. Currently 100. Positive BM. Arousable on the ventilator. Tolerating tube feeds. Central line changed yesterday. Plan for bronchoscopy at 1 PM. 09/12: Tmax 100.1. Currently afebrile. Follows commands today. Wiggles toes and give thumbs up appropriately. MRI brain canceled. Tolerating tube feeding with positive BM. Tracheostomy currently planned for . 09/13: Tmax 102. Again on sedation [place] commands by wiggling toes bilaterally and giving thumbs up bilaterally appropriate. Tolerating tube feeding with positive BM. Tracheostomy planned for tomorrow with Dr. Ortega. 09/14: Low grade fever. CXR showing more prominent infiltrate on the right lower lobe and left upper lobe. WBC trending up still in normal range. Patient is on 40% FiO2 but continues to fail CPAP due to tachypnea 09/15: Remains intubated sedated, unable to wean off the vent. Plan for tracheostomy today with Dr. Ortega. Continues to have low grade fever. CXR with persistent bibasilar infiltrates 09/16: Tmax 101.1. Currently 100.7. Awake and alert. Following commands. 09/17: Afebrile. Currently on PSV trial. Tolerating tube feeds. One bowel movement. Noted decreased urine output past 48 hours. Diuretics have been discontinued. This a.m. creatinine currently pending. 09/18: Afebrile. Adequate urine output yesterday but decreased 150 past 8 hours. Tolerating tube feeds. One bowel movement. Not tolerating PSV trials today. 09/19: Tmax 100.5. Urine output picking up. Tolerating tube feeds. No bowel movement 48 hours. Not tolerating PSV trials. 09/20: Diffuse drug morbilliform exanthem noted this a.m. Tmax 100.6. Urine output around 20 cc an hour. Not tolerating PSV trials. Possibly new right pleural effusion noted on chest x-ray. Will need hemodialysis 09/21: Tmax 100.6 currently 98.7. -4 L with hemodialysis yesterday and today. FiO2 to 60%. Tolerating tube feeds. Positive BM. Still requiring sedation 09/22: Afebrile. Tolerating tube feeds. Positive BM. 30 g per kilogram per minute of propofol. Tolerated PSV trials 3 hours today 09/23 HD today with 3.5 L removal. Tolerating CPAP for 8 hours, currently 45% with RSBI 45%. 09/24 Called by RN this morning for concern for bloody BMs. Placed heparin and warfarin on hold. Serial Hgb ordered. Hgb 9.3 -->8.6 and hemodynamically unchanged. Started on protonix drip. Heme stool is negative and now RN states she is concerned about the adequacy of specimen, so sending repeat. Had asked GI to see, however further workup will not be indicated if hemoccult is negative. Tolerating PSV 05/06 09/25: heparin restarted. hemocult negative x 2. 09/26: no changes. still failing cpap trials. 09/27: Tmax 101.5. Currently 99.5. Resting on Diprivan drip at 25 mcg/kg/m. Currently tolerating tube feeding.. One bowel movement. 09/28: Hemoglobin trending downward. Transfusing 1 unit PRBCs with hemodialysis today. Currently afebrile. Appears comfortable ventilator 2 bowel movements 09/29 No events overnight. Sedated with Diprivan and on ventilator via trach. T: 99.9 For Perma Cath placement today. s/p HD yesterday with removal 4L and transfusion 1unit PRBC with HD. 09/30: Tmax 100.8. No events overnight. No bowel movement. Tolerating tube feeds. 10/01: Tmax 101.3. Currently resting in bed in no acute distress. Tolerating tube feeds. Chest x-ray revealed atelectasis. -5 L with hemodialysis yesterday. 10/02 Patient remains on ventilator via trach on PRVC/AC with PEEP: 10 and FIO2 50 %. T: 102.1 at 4 am. 10/03 Patient is off sedation on ventilator via trach. Tmax 101.2 last night. For HD today. 10/04: Tmax 101.5. Currently afebrile. Tolerating PSV trial. Hemodialysis - 4.5 L yesterday. Positive BM. New rash. Received chlorhexidine today. 10/05: Tmax 100. Currently 98.9. Positive BM. Tolerating tube feeds. Less erythematous today. Currently on dialysis 10/06: Tmax 99.9. Currently 99.7. Currently on PSV trial 09/12 @ 45%. Tolerating tube feed. Positive bowel movement 10/07: Tmax 99.8. currently psv 10/8/40%. has not been out of bed in weeks due to critical illness. needs to be mobilized. still no placement plan. Subjective 10/08: Tmax 100.4. on t-piece currently. tolerated psv yesterday. have ordered specialty chair and currently awaiting it to arrive. 10/09 Patient remains on ventilator via trach, T:99.9 on no sedation. Objective Vital Signs Date Time Temp Pulse Resp B/P Pulse Ox O2 Delivery O2 Flow Rate FiO2 10/09/16 06:00 79 10/09/16 04:34 94 40 10/09/16 04:00 99.9 18 137/93 Intake and Output 10/08/16 10/08/16 10/09/16 08:00 16:00 00:00 Intake Total 388 ml 1265 ml 600 ml Output Total 70 ml 0 ml Balance 318 ml 1265 ml 600 ml Result Diagram: 10/09/16 0525 10/07/16 0508 Other Results Laboratory Tests Test 10/08/16 10/09/16 10/09/16 09:30 05:05 05:25 Prothrombin Time 18.0 SEC 18.6 SEC Prothromb Time International 1.6 RATIO 1.6 RATIO Ratio Activated Partial 65.8 SEC 79.4 SEC Thromboplast Time White Blood Count 7.6 TH/MM3 Red Blood Count 2.86 MIL/MM3 Hemoglobin 8.1 GM/DL Hematocrit 24.0 % Mean Corpuscular Volume 83.7 FL Mean Corpuscular Hemoglobin 28.2 PG Mean Corpuscular Hemoglobin 33.7 % Concent Red Cell Distribution Width 18.2 % Platelet Count 374 TH/MM3 Mean Platelet Volume 7.3 FL Imaging Last Impressions Chest X-Ray 10/09/16 0600 Signed Impressions: Service Date/Time: Sunday, October 09, 2016 04:49 - CONCLUSION: Mild hazy opacity at the lung bases. This appears improved on the right. Scotty Huynh MD Catheter Placement X-Ray 09/29/16 1223 Signed Impressions: Service Date/Time: Thursday, September 29, 2016 12:31 - CONCLUSION: Vas-Cath to PermCath exchange as detailed above. Taco Haas Jr., MD Renal Ultrasound 09/17/16 0000 Signed Impressions: Service Date/Time: Saturday, September 17, 2016 13:31 - CONCLUSION: Negative renal sonogram. Taco Davidson MD Upper Extremity Ultrasound 09/14/16 0000 Signed Impressions: Service Date/Time: August 08:32 - CONCLUSION: There is thrombus within the left subclavian and internal jugular veins. Danyel Escalante MD Lower Extremity Ultrasound 09/13/16 0000 Signed Impressions: Service Date/Time: Tuesday, September 13, 2016 22:33 - CONCLUSION: Normal examination. Leonides Mason MD Liver Ultrasound 09/08/16 0000 Signed Impressions: Service Date/Time: Thursday, September 08, 2016 08:45 - CONCLUSION: 1. Cholelithiasis with distended gallbladder. However, there are no associated findings present to diagnose acute cholecystitis. If there is persistent clinical concern for acute cholecystitis could evaluate for cystic duct obstruction with hepatobiliary scintigraphy. 2. Hepatomegaly with very heterogeneous echotexture and steatosis. Dejan Allison MD Gall Bladder Ultrasound 08/29/16 0000 Signed Impressions: Service Date/Time: Monday, August 29, 2016 15:21 - CONCLUSION: 1. Hepatomegaly with heterogeneous echotexture throughout the liver. 2. There is a large echogenic area near the neck of the gallbladder suggestive of a stone, but despite its large size, demonstrates no acoustic shadowing in any of the views. Taco Davidson MD CT Angiography 08/15/16 0000 Signed Impressions: Service Date/Time: Monday, August 15, 2016 02:33 - CONCLUSION: 1. No evidence for pulmonary embolism. 2. Multifocal consolidation greatest in the right lower lobe and associated adenopathy. Terry Estrada MD Objective Remarks GENERAL: 56 yo female currently resting in bed on t-piece today SKIN: Warm and dry. Skin is flaky. Rash much improved/less erythematous. Noted stage I to 2 decubitus ulcer\coccyx and back covered with Mepilex HEAD: Normocephalic. EYES: No scleral icterus. No injection or drainage. NECK: Neck is obese. Right subclavian hemodialysis catheters clean dry and intact. Tracheostomy is clean dry and intact CARDIOVASCULAR: RRR. sinus by tele. RESPIRATORY: Diminished breath sounds throughout due to body habitus GASTROINTESTINAL: Abdomen obese, soft, non-tender, hypoactive active bowel sounds. G-tube is clean dry and intact MUSCULOSKELETAL: Crinkling of bilateral lower extremities. 1+ edema BUE. Neuro: Awake, makes eye contact and nods to questions. Currently following commands moving upper and lower extremity spontaneously. A/P Problem List: (1) ARDS (adult respiratory distress syndrome) ICD Code: J80 Status: Acute (2) CHF (congestive heart failure) ICD Code: I50.9 Status: Acute (3) Respiratory failure ICD Code: J96.90 Status: Acute (4) Pneumonia ICD Code: J18.9 Status: Acute Assessment and Plan Neuro/Psych: Acute toxic metabolic encephalopathy Agitated delirium- improving. Off sedation. Monitor neuro status. Fentanyl allergy On Seroquel 75 mg every 8 hours EEG 09/09 moderate to severe encephalopathy good sleep/wake hygeine. melatonin 5mg po qHS for sleep. Pulm: Acute on chronic hypercapnic and hypoxemic respiratory failure ARDS- resolved. Pneumonia community-acquired, now with HCAP with carbapenem-resistant pseudomonas and ESBL Klebsiella VAP. Probable JOE Continue with vent support keep sat >92% Ventilator bundle. , ICU vent bundle Bronchodilator therapy every 4 hours and as needed Pulm has followed- Dr. Beck Gen surgery Dr. Ortega s/p s tracheostomy 09/15 Pulm toilet, trach care CV: Hypertension- improved. Dyslipidemia Elevated troponin - likely strain Increase Lopressor 50mg Q12 monitor HR and BP keep MAP>65mmHg Echo 08/14 showed EF 65-70% mild AR/TR On Pravachol 20 mg a night for dyslipidemia Renal/: Acute kidney injury - requiring hemodialysis Dr. Tan -nephrology following. Hemodialysis Sunday//Sunday MIKE: ATN from sepsis syndrome and diminished renal perfusion ; also aminoglycoside induced nephrotoxicity likely also contributing; possibly AIN -> per nephrology note Urine eosinophils negative. Renal ultrasound revealed no hydronephrosis Monitor renal function, I/O's, avoid nephrotoxins GI: Elevated transaminases Cholelithiasis US liver: Fatty liver and cholelithiasis. Repeat 09/08 revealed cholelithiasis with no acute signs of cholecystitis. Recommend a HIDA scan if indicated On TF Nepro's 45 cc an hour and beneprotein 2 packs 3 times a day s/p PEG placement 09/01/[address] Ritter d/c bowel regimen ( Senna, Reglan,Miralax) as patient is having liquid stool. Pepcid 10mg BID GI prophylaxis ID: Pseudomonas pneumonia Funguria, Maribell glabrata and parapsilosis. Continue with abx (Zerbaxa). ID is following. Pertinent cultures blood and sputum cx 08/15- NG strep pneumonia and Legionella urinary Ag negative Blood cultures 08/28: NGTD C Diff negative 08/28. Lines changed 08/28. Sputum 08/30 - Pseudomonas Sputum 09/02 PSAE, resistant to carbapenem, intermediate to Levaquin. 09/07 - urine -Maribell Guilliermondii 09/07 - blood cultures 2 - no growth 09/09 - urine -strep viridans, Maribell parapsilosis 09/10 - blood cultures 2 -no growth 09/11 - broch washings -no growth to date 09/12 - urine -Maribell glabrata and parapsilosis 09/16 - blood cultures 2 - pending 09/16 - sputum -no growth 09/16 - urine -Maribell glabrata and parapsilosis 10/02 - blood cultures 2 - staph epi 10/02 - urine - ESBL positive Klebsiella 10/04 - blood cultures 2 - pending 10/05 - blood cultures 2 - pending Zosyn previously discontinued secondary to rash Heme: Normocytic anemia Left IJ/subclavian nonocclusive thrombus 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 Monitor PTT/INR INR currently 1.6 Endo: Diabetes mellitus Hypothyroidism on SSI (medium scale) for glycemic control On Synthroid 200mcg daily. TSH 1.37 GI prophylaxis-Protonix 40mg Q12 DVT - Heparin gtt/Coumadin d/c heparin drip once INR>2.0 - Continue , SCDs Lines: Peripheral IV. - PEG 09/01/16 - Trach 09/15 -Right Permacath placed 09/29 Level 3 Loree Marinelli, daughter (HCP): [phone] Rony Marinelli, significant other: [phone] Problem Qualifiers (1) CHF (congestive heart failure): Qualified Code: I50.9 - Acute congestive heart failure, unspecified congestive heart failure type (2) Respiratory failure: Qualified Code: J96.02 - Acute respiratory failure with hypercapnia (3) Pneumonia: Qualified Code: J18.9 - Pneumonia of both lungs due to infectious organism, unspecified part of lung Ute Santamaria MD October 09, 2016 08:48
[2016-10-09] MEDS: BENEPROTEIN POWDER 1 PACK G-TUBE SCH ×3 (09:00→17:26)
[2016-10-09] MEDS: DOCUSATE SODIUM 100 MG/10 ML UDC PO SCH ×2 (09:00→20:12)
[2016-10-09] MEDS: ARTIFICIAL TEARS OPTH SOLN 15 ML BTL EACH EYE SCH ×3 (09:40→17:26)
[2016-10-09] MEDS: FAMOTIDINE 40 MG/5 ML LIQ 50 ML BTL NG SCH ×2 (09:41→20:13)
[2016-10-09] MEDS: EUCERIN CREAM 120 GM JAR TOPICAL SCH ×2 (09:41→20:14)
[2016-10-09] MEDS: CALCIUM ACETATE 667 MG CAP PO SCH ×3 (09:42→17:26)
[2016-10-09] MEDS: SODIUM CHLORIDE 0.9% FLUSH 10 ML FLUSH IVF SCH (09:43)
[2016-10-09] MEDS: SODIUM CHLORIDE 0.9% FLUSH 10 ML FLUSH IV FLUSH SCH ×2 (09:43→20:13)
[2016-10-09 10:12] LABS: BICARBONATE 28.7 MEQ/L (21.0-32.0); POTASSIUM 3.3 MEQ/L (3.5-5.1)
--- NOTE | 2016-10-09 11:34 | HHI.IDPN ---
Subjective Subjective Remarks Patient is admitted to ICU with respiratory failure, CHF, pneumonia, probable underlying COPD. Patient was intubated and placed on mechanical ventilation. NOt weaning and had trach done 09/15. Has been having fevers. s/p Rx for PSAE PNA and C glabrata UTI. ID now following for ESBL HCAP. Overnight events reviewed. Low grade fevers 99 F. defervescing. Oliguric,on HD Tues, Thurs, Sat. Remains on vent. Secretions thick, yellow, moderate. Not on pressors. On Tube feeds, tolerating. PEG tube site ok. No diarrhea Has clot in her LUE, on heparin Antibiotics Zerbaxa IV Lines Line sites with no e.o infection. Past Medical History reviewed. Allergies: Coded Allergies: Fentanyl (Verified Adverse Reaction, Severe, rash, 09/21/16) *MDRO Multi-Drug Resistant Organism (Verified Adverse Reaction, Unknown, ) ESBL (urine & sputum)-10/02/16 Objective . Vital Signs Date Time Temp Pulse Resp B/P Pulse Ox O2 Delivery O2 Flow Rate FiO2 10/09/16 08:47 96 40 10/09/16 08:45 96 40 10/09/16 06:00 79 10/09/16 04:34 94 40 10/09/16 04:00 104 10/09/16 04:00 40 10/09/16 04:00 99.9 90 18 137/93 95 10/09/16 02:10 98 40 10/09/16 02:00 121 10/09/16 00:00 90 10/09/16 00:00 40 10/09/16 00:00 99.9 90 18 125/79 95 10/08/16 22:51 40 10/08/16 22:51 96 40 10/08/16 22:00 90 10/08/16 21:20 95 40 10/08/16 20:00 99.4 93 18 139/78 98 10/08/16 20:00 93 10/08/16 20:00 40 10/08/16 18:00 98 10/08/16 16:00 99.8 94 26 121/74 95 10/08/16 16:00 94 10/08/16 16:00 40 10/08/16 14:25 95 40 10/08/16 14:00 103 10/08/16 12:00 99.9 119 25 151/70 95 10/08/16 12:00 40 10/08/16 12:00 119 10/08/16 10/08/16 10/09/16 14:59 22:59 06:59 Intake Total 1265 ml 600 ml 372 ml Output Total 0 ml 2 ml Balance 1265 ml 600 ml 370 ml IV Total 426 ml 214 ml 252 ml Tube Feeding 479 ml 266 ml Other 360 ml 120 ml 120 ml Output Urine Total 0 ml 0 ml Stool Total 0 ml 2 ml # Bowel Movements 2 . Laboratory Tests Test 10/08/16 10/09/16 05:06 05:25 White Blood Count 10.4 TH/MM3 7.6 TH/MM3 Red Blood Count 3.09 MIL/MM3 2.86 MIL/MM3 Hemoglobin 8.7 GM/DL 8.1 GM/DL Hematocrit 25.7 % 24.0 % Mean Corpuscular Volume 83.3 FL 83.7 FL Mean Corpuscular Hemoglobin 28.2 PG 28.2 PG Mean Corpuscular Hemoglobin 33.9 % 33.7 % Concent Red Cell Distribution Width 18.7 % 18.2 % Platelet Count 346 TH/MM3 374 TH/MM3 Mean Platelet Volume 7.8 FL 7.3 FL Laboratory Tests Test 10/09/16 09:16 Sodium Level 137 MEQ/L Potassium Level 3.3 MEQ/L Chloride Level 95 MEQ/L Carbon Dioxide Level 28.7 MEQ/L Anion Gap 13 MEQ/L Blood Urea Nitrogen 55 MG/DL Creatinine 3.50 MG/DL Estimat Glomerular Filtration 14 ML/MIN Rate Random Glucose 131 MG/DL Calcium Level 9.1 MG/DL Imaging Chest X-Ray 09/15/16 0600 Signed Impressions: Service Date/Time: Thursday, September 15, 2016 03:52 - CONCLUSION: Persistent and unchanged bibasilar infiltrates. Taco Haas Jr., MD Chest X-Ray 09/15/16 0000 Signed Impressions: Service Date/Time: Thursday, September 15, 2016 11:00 - CONCLUSION: Placement of tracheostomy tube otherwise not changed. Danyel Escalante MD Liver Ultrasound 09/08/16 0000 Signed Impressions: Service Date/Time: Thursday, September 08, 2016 08:45 - CONCLUSION: 1. Cholelithiasis with distended gallbladder. However, there are no associated findings present to diagnose acute cholecystitis. If there is persistent clinical concern for acute cholecystitis could evaluate for cystic duct obstruction with hepatobiliary scintigraphy. 2. Hepatomegaly with very heterogeneous echotexture and steatosis. Dejan Allison MD Chest X-Ray 09/06/16 0000 Signed Impressions: Service Date/Time: Tuesday, September 06, 2016 11:09 - CONCLUSION: No significant change has occurred. Terry Estrada MD Gall Bladder Ultrasound 08/29/16 0000 Signed Impressions: Service Date/Time: Monday, August 29, 2016 15:21 - CONCLUSION: 1. Hepatomegaly with heterogeneous echotexture throughout the liver. 2. There is a large echogenic area near the neck of the gallbladder suggestive of a stone, but despite its large size, demonstrates no acoustic shadowing in any of the views. Taco Davidson MD CT Angiography 08/15/16 0000 Signed Impressions: Service Date/Time: Monday, August 15, 2016 02:33 - CONCLUSION: 1. No evidence for pulmonary embolism. 2. Multifocal consolidation greatest in the right lower lobe and associated adenopathy. Terry Estrada MD Physical Exam GENERAL: Morbidly obese CF patient, awake, NAD, on the vent SKIN: Has patches of redness on her trunk, and some papules in extremities HEAD: Atraumatic. Normocephalic. No temporal or scalp tenderness. EYES: Pupils equal round and reactive. No scleral icterus. Moist mucosa ENT: No nasal discharge. Dry oral mucosa NECK: Large neck. Supple. Trach in place CARDIOVASCULAR: Regular rate and rhythm RESPIRATORY: Clear to auscultation. Breath sounds equal bilaterally. GASTROINTESTINAL: Abdomen soft, obese, non-tender, nondistended. MUSCULOSKELETAL: Extremities without clubbing, cyanosis. Edema (+) NEUROLOGICAL: eyes open, did not track of focus PIV with no evidence of infection Miller in place with clear urine. Assessment & Plan Remarks Sepsis present on admission. HCAP: ESBL and very MDR PSAE Staph epidermidis: possible contaminant but will repeat HD cath culture. Morbid Obesity (BMI 45.8 kg/m2) Obstructive Sleep Apnea (supposed to be on CPAP at home and home oxygen 2L) Acute respiratory failure vent dependent. Acute metabolic encephalopathy: infection, meds. Thrombosis of cephalic vein. Renal insufficiency, now on HD Recs: Continue Zerbaxa IV (ASP: MDR PSAE resistant to carbapenem, fevers persistent) Follow clinically. If fevers persist or worsening sepsis consider adding Zyvox and repeat rudolph cultures merly sputum. Weaning per CCM Monitor progress Follow oscar Uriarte/Terri Stoddard RN, MD October 09, 2016 11:34
--- NOTE | 2016-10-09 12:14 | HHI.PR ---
Subjective Remarks Awake and on vent support , FIO2 at 40 %. Has been on CPAP this am. Was dialyzed. Objective Vital Signs Date Time Temp Pulse Resp B/P Pulse Ox O2 Delivery O2 Flow Rate FiO2 10/09/16 08:47 96 40 10/09/16 08:45 96 40 10/09/16 06:00 79 10/09/16 04:34 94 40 10/09/16 04:00 104 10/09/16 04:00 40 10/09/16 04:00 99.9 90 18 137/93 95 10/09/16 02:10 98 40 10/09/16 02:00 121 10/09/16 00:00 90 10/09/16 00:00 40 10/09/16 00:00 99.9 90 18 125/79 95 10/08/16 22:51 40 10/08/16 22:51 96 40 10/08/16 22:00 90 10/08/16 21:20 95 40 10/08/16 20:00 99.4 93 18 139/78 98 10/08/16 20:00 93 10/08/16 20:00 40 10/08/16 18:00 98 10/08/16 16:00 99.8 94 26 121/74 95 10/08/16 16:00 94 10/08/16 16:00 40 10/08/16 14:25 95 40 10/08/16 14:00 103 I/O 10/08/16 10/08/16 10/08/16 10/09/16 10/09/16 10/09/16 07:00 15:00 23:00 07:00 15:00 23:00 Intake Total 388 ml 1265 ml 600 ml 372 ml Output Total 70 ml 0 ml 2 ml Balance 318 ml 1265 ml 600 ml 370 ml IV Total 100 ml 426 ml 214 ml 252 ml Tube Feeding 228 ml 479 ml 266 ml Other 60 ml 360 ml 120 ml 120 ml Output Urine Total 10 ml 0 ml 0 ml Stool Total 60 ml 0 ml 2 ml # Voids 1 # Bowel Movements 1 2 Result Diagram: 10/09/16 0525 10/09/16 0916 Objective Remarks This is an obese middle-aged white female who is responsive and cooperative HEENT: Head normocephalic. Pupils react. Neck: No bruits, no thyroid enlargement, no lymphadenopathy. Chest: Decreased breath sounds. Occ Wheeze. Heart: Heart sounds were regular. S1-S2 no murmur, no S3. Abdomen: Soft, benign. No masses, or tenderness. Bowel sounds are active. Extremities: Mild edema . Neuro :Moves feet. Awake . Assessment and Plan Assessment and Plan IMPRESSION 1. Acute hypercapnic respiratory failure. 2. Pulmonary edema. 3. Drug rash 4. Obstructive sleep apnea syndrome 5. Hypertension 6. Hypothyroidism. 7. MIKE Plan : 1. Cont T Bar Trial upto 2 hrs daily. 2. Trach toilet and suctioning. 3. Nebs qid , duoneb. 4. Daily CPAP trial upto 12 Hrs. Then to IMV 10 at HS 5. Labs in am 6. PT and OT 7. Tube feeds at 50 CC Abimael Beck MD October 09, 2016 12:14
[2016-10-09] MEDS ORDERED: WARFARIN SOD 7.5 MG TAB PO SCH (16:00)
[2016-10-09] MEDS: WARFARIN SOD 5 MG TAB PO SCH (17:26)
[2016-10-09 18:11] LABS: APTT (PATIENT) 62.8 SEC (24.3-30.1)
[2016-10-09] MEDS: PRAVASTATIN SOD 20 MG TAB PO SCH (20:12)
[2016-10-09] MEDS: MELATONIN 5 MG TAB PO SCH (20:13)
[2016-10-10] VITALS (46 sets, daily range): BP systolic 110–196; BP diastolic 66–99; PULSE 85–112; RESP 20–24; TEMP 99–100.5; O2SAT 91–99
[2016-10-10] MEDS: CHLORHEXIDINE GLUCONATE 2 % 1 PACK (2 CLOTHS) TOP SCH (03:13)
[2016-10-10] MEDS: RESP: ALBUTEROL 2.5 MG/IPRATROPIUM 0.5 MG NEB (SCH) INH ×4 (03:18→20:45)
[2016-10-10] MEDS: CEFTOLOZANE-TAZOBACTAM INJ 150 MG in SODIUM CHLORIDE 0.9% INJ 100 ML IV SCH ×3 (03:22→19:38)
[2016-10-10 03:34] LABS: APTT (PATIENT) 25.9 SEC (24.3-30.1)
[2016-10-10] MEDS: QUEtiapine FUMARATE 25 MG TAB PO SCH ×3 (05:37→22:04)
[2016-10-10] MEDS: LEVOTHYROXINE SODIUM 200 MCG TAB PO SCH (05:37)
[2016-10-10 05:41] LABS: INTERNATIONAL NORMALIZED RATIO 1.8 RATIO; PROTHROMBIN TIME - PATIENT 20.1 SEC (9.8-11.6)
[2016-10-10 05:42] LABS: AUTOMATED NEUTROPHIL # 4.4 TH/MM3 (1.8-7.7); BASOPHIL # 0.1 TH/MM3 (0-0.2); BASOPHIL % 1.5 % (0.0-2.0); EOSINOPHIL # 0.8 TH/MM3 (0-0.4); EOSINOPHIL % 11.6 % (0.0-4.0); HEMATOCRIT 23.4 % (35.0-46.0); LYMPH % 13.7 % (9.0-44.0); LYMPHOCYTE # 0.9 TH/MM3 (1.0-4.8); MEAN CELL VOLUME 83.3 FL (80.0-100.0); MEAN CORPUSCULAR HEMOGLOBIN 28.6 PG (27.0-34.0); MEAN CORPUSCULAR HGB CONC 34.3 % (32.0-36.0); MONO % 7.6 % (0.0-8.0); NEUT % 65.6 % (16.0-70.0); PLATELET COUNT 352 TH/MM3 (150-450); RED BLOOD COUNT 2.81 MIL/MM3 (4.00-5.30); WHITE BLOOD COUNT 6.7 TH/MM3 (4.0-11.0)
[2016-10-10 05:46] LABS: APTT (PATIENT) 75.1 SEC (24.3-30.1)
[2016-10-10 06:04] LABS: BICARBONATE 27.2 MEQ/L (21.0-32.0); POTASSIUM 3.3 MEQ/L (3.5-5.1)
[2016-10-10 06:23] LABS: HEMO FLAGS AUTO DIFF
[2016-10-10 07:17] LABS: BANDS 10 % (0-6); BASOPHILS 1 % (0-2); EOSINOPHILS 8 % (0-4); MYELOCYTES 1 % (0-0); NEUTROPHIL # MANUAL DIFF 5.2 TH/MM3 (1.8-7.7); PLATELET ESTIMATE SMEAR NORMAL (NORMAL); PLATELET MORPHOLOGY NORMAL (NORMAL); POLYS (SEG NEUTROPHILS) 66 % (16-70); SCAN/DIFF FINAL DIFF MANUAL; WBC DIFF SAMPLE 100
--- NOTE | 2016-10-10 08:56 | HHI.CCPN ---
Subjective Remarks/Hospital Course 56-year-old morbidly obese female brought in the emergency department in respiratory distress. She was intubated by ER attending. She has been sick for about a week with symptoms consistent with UTI. She's had fevers and chills. She's been short of breath. She's had fatigue. She has had a cough and chest pain with coughing. The family reports that she's been delirious for the last 3 days. 08/15 Patient is sedated with Diprivan, Versed, Fentanyl and intubated. CTA chest showed no PE multifocal consolidation greatest in RLL. Tmax 100.6 08/16 Patient is sedated with Diprivan and Fentanyl. Afebrile. CXR this morning showed increase consolidation. 08/17 Patient remains sedated and intubated. T:100.4 On PRVC/AC RR 18, Tv 500, IT :1.0 PEEP:10, FIO2 75% 08/18 Remains sedated and intubated. Afebrile. CXR this morning unchanged bibasilar infiltrates and effusions. 08/19 Patient was placed on rotoprone bed last night for proning sedated with Diprivan, Versed and Fentnayl in addition she is on Nimbex. On PRVC/AC RR 20, TV 400, IT:1.1, PEEP:14 and FIO2 80%. Afebrile. 08/20 Patient remains sedated and intubated. Remains on PRVC/AC mode with improvements in her oxygenation on FIO2 50% from 80% yesterday and PEEP:12. 08/21 Patient remains sedated and intubated. On PRVC/AC mode with RR 20, TV 400, IT:1.1, PEEP: 12 and FIO2 50%. Afebrile. 08/22 No acute events overnight. Remains sedated, intubated and on Nimbex.. T: 99.8. On PRVC mode with PEP: 12, FIO2 50%. CXR from yesterday showed better aeration, RLL infiltrate unchanged. 08/23 Chest x-ray worsening. Methylprednisolone taper to twice a day by pulmonary. The patient's FiO2 was found to be 100% this a.m., will continue to wean. 08/24: 1 desat episode yesterday when supine. still remains prone now. no vasopressors. sedated and paralyzed. 08/25: flolan added yesterday. fio2 down to 60%. remained supine all night. still on neuromuscular blockade. net -500cc/24h. 08/26: good diuresis. remained supine. fio2 70%. weaning flolan. remains with significant respiratory support and high peep despite 6L diuresis overnight. Cr still stable. 08/27: continues with good diuresis. net negative 3L/24h. fio2 down to 55%. flolan off. still high peep. not ready for SBT. more agitated today. Cr remains stable despite aggressive diuresis. 08/28: diuresis continues. -3.3L/24h. spiked fever overnight with a jump in wbc to 16 this AM. fio2 60%, but her pulmonary improvements have plateaued at this point. still on peep 12. 08/29: net -1.7L/24h. Cr starting to rise. still spiking fevers despite vanc/ cefepime added yesterday. wbc continues to rise. clinically appears infected, although unclear source. peep 10, fio2 60%. will likely need trach. 08/30: net +800cc, but Cr downtrending. appears clinically euvolemic. fever curve downtrending. wbc downtrending. on 40% fio2, peep 8 today. still following commands. 08/31: failed SBT after only 45 minutes yesterday. intubated for > 2 weeks at this point. will attempt to pursue trach/peg today. will continue with pulmonary strengthening. daily SBTs. 09/01 CXR showing increasing bibasilar infiltrate. Failed C Pap trial in 5 minutes due to severe tachypnea. PEG tube today. Family has not decided on trach yet 09/02: Patient febrile to 101.1, CXR increased infiltrate Tmax Tmax 101.1. Currently 9.7 left upper lung and right lower lobe. Pancultured. Cefepime added today and one dose of vancomycin. Continues to fail C Pap trial due to tachypnea and respiratory distress 09/03: Remains hypoxemic on 75% oxygen with new pneumonia. Sputum culture 09/02/16 with GNR. Family agreeable for tracheostomy but patient is not stable at this point for trach 09/04: still on 70% fio2. still hypoxic. pneumonia persists. needs trach, but too unstable at this point. 09/05: remains on 75% fio2. pseudomonas sensitivities came back resistant to carbapenems, intermediate to levaquin. still spiking fevers. not clinically improving. wbc remains elevated. 09/06: Remains on 12 of PEEP and FiO2 75%. Zosyn and tobramycin started yesterday. WBC count trending down today 11.5 from 13.1. Remains heavily sedated for ventilator synchrony. MAXIMUM TEMPERATURE 100.3 09/07: Continues to spike fever. CXR unchanged. WBC count improving. PEEP 14. FiO2 60%. Will start IV Bumex 1mg IV q12 09/09: Tolerating tube feeds at goal. Afebrile. No documented bowel movement. Currently sedated on the ventilator 09/10: Tmax 99.7. Currently 99.4. No bowel movement yesterday. None document since 09/04. Arousable on the ventilator 09/11: Tmax 102.6. Currently 100. Positive BM. Arousable on the ventilator. Tolerating tube feeds. Central line changed yesterday. Plan for bronchoscopy at 1 PM. 09/12: Tmax 100.1. Currently afebrile. Follows commands today. Wiggles toes and give thumbs up appropriately. MRI brain canceled. Tolerating tube feeding with positive BM. Tracheostomy currently planned for . 09/13: Tmax 102. Again on sedation [place] commands by wiggling toes bilaterally and giving thumbs up bilaterally appropriate. Tolerating tube feeding with positive BM. Tracheostomy planned for tomorrow with Dr. Ortega. 09/14: Low grade fever. CXR showing more prominent infiltrate on the right lower lobe and left upper lobe. WBC trending up still in normal range. Patient is on 40% FiO2 but continues to fail CPAP due to tachypnea 09/15: Remains intubated sedated, unable to wean off the vent. Plan for tracheostomy today with Dr. Ortega. Continues to have low grade fever. CXR with persistent bibasilar infiltrates 09/16: Tmax 101.1. Currently 100.7. Awake and alert. Following commands. 09/17: Afebrile. Currently on PSV trial. Tolerating tube feeds. One bowel movement. Noted decreased urine output past 48 hours. Diuretics have been discontinued. This a.m. creatinine currently pending. 09/18: Afebrile. Adequate urine output yesterday but decreased 150 past 8 hours. Tolerating tube feeds. One bowel movement. Not tolerating PSV trials today. 09/19: Tmax 100.5. Urine output picking up. Tolerating tube feeds. No bowel movement 48 hours. Not tolerating PSV trials. 09/20: Diffuse drug morbilliform exanthem noted this a.m. Tmax 100.6. Urine output around 20 cc an hour. Not tolerating PSV trials. Possibly new right pleural effusion noted on chest x-ray. Will need hemodialysis 09/21: Tmax 100.6 currently 98.7. -4 L with hemodialysis yesterday and today. FiO2 to 60%. Tolerating tube feeds. Positive BM. Still requiring sedation 09/22: Afebrile. Tolerating tube feeds. Positive BM. 30 g per kilogram per minute of propofol. Tolerated PSV trials 3 hours today 09/23 HD today with 3.5 L removal. Tolerating CPAP for 8 hours, currently 45% with RSBI 45%. 09/24 Called by RN this morning for concern for bloody BMs. Placed heparin and warfarin on hold. Serial Hgb ordered. Hgb 9.3 -->8.6 and hemodynamically unchanged. Started on protonix drip. Heme stool is negative and now RN states she is concerned about the adequacy of specimen, so sending repeat. Had asked GI to see, however further workup will not be indicated if hemoccult is negative. Tolerating PSV 05/06 09/25: heparin restarted. hemocult negative x 2. 09/26: no changes. still failing cpap trials. 09/27: Tmax 101.5. Currently 99.5. Resting on Diprivan drip at 25 mcg/kg/m. Currently tolerating tube feeding.. One bowel movement. 09/28: Hemoglobin trending downward. Transfusing 1 unit PRBCs with hemodialysis today. Currently afebrile. Appears comfortable ventilator 2 bowel movements 09/29 No events overnight. Sedated with Diprivan and on ventilator via trach. T: 99.9 For Perma Cath placement today. s/p HD yesterday with removal 4L and transfusion 1unit PRBC with HD. 09/30: Tmax 100.8. No events overnight. No bowel movement. Tolerating tube feeds. 10/01: Tmax 101.3. Currently resting in bed in no acute distress. Tolerating tube feeds. Chest x-ray revealed atelectasis. -5 L with hemodialysis yesterday. 10/02 Patient remains on ventilator via trach on PRVC/AC with PEEP: 10 and FIO2 50 %. T: 102.1 at 4 am. 10/03 Patient is off sedation on ventilator via trach. Tmax 101.2 last night. For HD today. 10/04: Tmax 101.5. Currently afebrile. Tolerating PSV trial. Hemodialysis - 4.5 L yesterday. Positive BM. New rash. Received chlorhexidine today. 10/05: Tmax 100. Currently 98.9. Positive BM. Tolerating tube feeds. Less erythematous today. Currently on dialysis 10/06: Tmax 99.9. Currently 99.7. Currently on PSV trial 09/12 @ 45%. Tolerating tube feed. Positive bowel movement 10/07: Tmax 99.8. currently psv 10/8/40%. has not been out of bed in weeks due to critical illness. needs to be mobilized. still no placement plan. Subjective 10/08: Tmax 100.4. on t-piece currently. tolerated psv yesterday. have ordered specialty chair and currently awaiting it to arrive. 10/09 Patient remains on ventilator via trach, T:99.9 on no sedation. 10/10 No acute events overnight. For HD today on heparin drip. T:99.8, tolerating tube feeds. Objective Vital Signs Date Time Temp Pulse Resp B/P Pulse Ox O2 Delivery O2 Flow Rate FiO2 10/10/16 07:50 40 10/10/16 07:48 96 10/10/16 06:00 85 10/10/16 04:00 99.8 24 110/77 Intake and Output 10/09/16 10/09/16 10/10/16 08:00 16:00 00:00 Intake Total 372 ml 642 ml 644 ml Output Total 2 ml 1 ml Balance 370 ml 641 ml 644 ml Result Diagram: 10/10/16 0514 10/10/16 0514 Other Results Laboratory Tests Test 10/09/16 10/09/16 10/10/16 10/10/16 09:16 17:40 03:15 05:14 Sodium Level 137 MEQ/L 136 MEQ/L Potassium Level 3.3 MEQ/L 3.3 MEQ/L Chloride Level 95 MEQ/L 94 MEQ/L Carbon Dioxide Level 28.7 MEQ/L 27.2 MEQ/L Anion Gap 13 MEQ/L 15 MEQ/L Blood Urea Nitrogen 55 MG/DL 65 MG/DL Creatinine 3.50 MG/DL 3.72 MG/DL Estimat Glomerular Filtration 14 ML/MIN 13 ML/MIN Rate Random Glucose 131 MG/DL 135 MG/DL Calcium Level 9.1 MG/DL 9.2 MG/DL Activated Partial 62.8 SEC 25.9 SEC 75.1 SEC Thromboplast Time White Blood Count 6.7 TH/MM3 Red Blood Count 2.81 MIL/MM3 Hemoglobin 8.1 GM/DL Hematocrit 23.4 % Mean Corpuscular Volume 83.3 FL Mean Corpuscular Hemoglobin 28.6 PG Mean Corpuscular Hemoglobin 34.3 % Concent Red Cell Distribution Width 18.0 % Platelet Count 352 TH/MM3 Mean Platelet Volume 7.0 FL Neutrophils (%) (Auto) 65.6 % Lymphocytes (%) (Auto) 13.7 % Monocytes (%) (Auto) 7.6 % Eosinophils (%) (Auto) 11.6 % Basophils (%) (Auto) 1.5 % Neutrophils # (Auto) 4.4 TH/MM3 Lymphocytes # (Auto) 0.9 TH/MM3 Monocytes # (Auto) 0.5 TH/MM3 Eosinophils # (Auto) 0.8 TH/MM3 Basophils # (Auto) 0.1 TH/MM3 CBC Comment AUTO DIFF Differential Total Cells 100 Counted Neutrophils % (Manual) 66 % Band Neutrophils % 10 % Lymphocytes % 8 % Monocytes % 6 % Eosinophils % 8 % Basophils % 1 % Neutrophils # (Manual) 5.2 TH/MM3 Myelocytes 1 % Differential Comment FINAL DIFF MANUAL Platelet Estimate NORMAL Platelet Morphology Comment NORMAL Prothrombin Time 20.1 SEC Prothromb Time International 1.8 RATIO Ratio Imaging Last Impressions Chest X-Ray 10/09/16 0600 Signed Impressions: Service Date/Time: Sunday, October 09, 2016 04:49 - CONCLUSION: Mild hazy opacity at the lung bases. This appears improved on the right. Scotty Huynh MD Catheter Placement X-Ray 09/29/16 1223 Signed Impressions: Service Date/Time: Thursday, September 29, 2016 12:31 - CONCLUSION: Vas-Cath to PermCath exchange as detailed above. aTco Haas Jr., MD Renal Ultrasound 09/17/16 0000 Signed Impressions: Service Date/Time: Saturday, September 17, 2016 13:31 - CONCLUSION: Negative renal sonogram. Taco Davidson MD Upper Extremity Ultrasound 09/14/16 0000 Signed Impressions: Service Date/Time: August 08:32 - CONCLUSION: There is thrombus within the left subclavian and internal jugular veins. Danyel Escalante MD Lower Extremity Ultrasound 09/13/16 0000 Signed Impressions: Service Date/Time: Tuesday, September 13, 2016 22:33 - CONCLUSION: Normal examination. Leonides Mason MD Liver Ultrasound 09/08/16 0000 Signed Impressions: Service Date/Time: Thursday, September 08, 2016 08:45 - CONCLUSION: 1. Cholelithiasis with distended gallbladder. However, there are no associated findings present to diagnose acute cholecystitis. If there is persistent clinical concern for acute cholecystitis could evaluate for cystic duct obstruction with hepatobiliary scintigraphy. 2. Hepatomegaly with very heterogeneous echotexture and steatosis. Dejan Allison MD Gall Bladder Ultrasound 08/29/16 0000 Signed Impressions: Service Date/Time: Monday, August 29, 2016 15:21 - CONCLUSION: 1. Hepatomegaly with heterogeneous echotexture throughout the liver. 2. There is a large echogenic area near the neck of the gallbladder suggestive of a stone, but despite its large size, demonstrates no acoustic shadowing in any of the views. Taco Davidson MD CT Angiography 08/15/16 0000 Signed Impressions: Service Date/Time: Monday, August 15, 2016 02:33 - CONCLUSION: 1. No evidence for pulmonary embolism. 2. Multifocal consolidation greatest in the right lower lobe and associated adenopathy. Terry Estrada MD Objective Remarks GENERAL: 56 yo female currently resting in bed on t-piece today SKIN: Warm and dry. Skin is flaky. Rash much improved/less erythematous. Noted stage I to 2 decubitus ulcer\coccyx and back covered with Mepilex HEAD: Normocephalic. EYES: No scleral icterus. No injection or drainage. NECK: Neck is obese. Right subclavian hemodialysis catheters clean dry and intact. Tracheostomy is clean dry and intact CARDIOVASCULAR: RRR. sinus by tele. RESPIRATORY: Diminished breath sounds throughout due to body habitus GASTROINTESTINAL: Abdomen obese, soft, non-tender, hypoactive active bowel sounds. G-tube is clean dry and intact MUSCULOSKELETAL: Crinkling of bilateral lower extremities. 1+ edema BUE. Neuro: Awake, makes eye contact and nods to questions. Currently following commands moving upper and lower extremity spontaneously. A/P Problem List: (1) ARDS (adult respiratory distress syndrome) ICD Code: J80 Status: Acute (2) CHF (congestive heart failure) ICD Code: I50.9 Status: Acute (3) Respiratory failure ICD Code: J96.90 Status: Acute (4) Pneumonia ICD Code: J18.9 Status: Acute Assessment and Plan Neuro/Psych: Acute toxic metabolic encephalopathy Agitated delirium- improving. On no sedation. Monitor neuro status. Fentanyl allergy On Seroquel 75 mg every 8 hours EEG 09/09 moderate to severe encephalopathy good sleep/wake hygeine. melatonin 5mg po qHS for sleep. Pulm: Acute on chronic hypercapnic and hypoxemic respiratory failure ARDS- resolved. Pneumonia community-acquired, now with HCAP with carbapenem-resistant pseudomonas and ESBL Klebsiella VAP. Probable JOE Continue with vent support keep sat >92% Ventilator bundle. , ICU vent bundle Bronchodilator therapy every 4 hours and as needed Pulm has followed- Dr. Beck Gen surgery Dr. Ortega s/p s tracheostomy 09/15 Pulm toilet, trach care CV: Hypertension- improved. Dyslipidemia Elevated troponin - likely strain On Lopressor 50mg Q12 monitor HR and BP keep MAP>65mmHg Echo 08/14 showed EF 65-70% mild AR/TR On Pravachol 20 mg a night for dyslipidemia Renal/: Acute kidney injury - requiring hemodialysis Dr. Tan -nephrology following. Hemodialysis Sunday//Sunday MIKE: ATN from sepsis syndrome and diminished renal perfusion ; also aminoglycoside induced nephrotoxicity likely also contributing; possibly AIN -> per nephrology note Urine eosinophils negative. Renal ultrasound revealed no hydronephrosis Monitor renal function, I/O's, avoid nephrotoxins. For HD today GI: Elevated transaminases Cholelithiasis US liver: Fatty liver and cholelithiasis. Repeat 09/08 revealed cholelithiasis with no acute signs of cholecystitis. Recommend a HIDA scan if indicated On TF Nepro's 45 cc an hour and beneprotein 2 packs 3 times a day s/p PEG placement 09/01/[address] Ritter d/c bowel regimen ( Senna, Reglan,Miralax) as patient is having liquid stool. Pepcid 10mg BID GI prophylaxis ID: Pseudomonas pneumonia Funguria, Maribell glabrata and parapsilosis. Continue with abx ([id number]). ID is following. Pertinent cultures blood and sputum cx 08/15- NG strep pneumonia and Legionella urinary Ag negative Blood cultures 08/28: NGTD C Diff negative 08/28. Lines changed 08/28. Sputum 08/30 - Pseudomonas Sputum 09/02 PSAE, resistant to carbapenem, intermediate to Levaquin. 09/07 - urine -Maribell Guilliermondii 09/07 - blood cultures 2 - no growth 09/09 - urine -strep viridans, Maribell parapsilosis 09/10 - blood cultures 2 -no growth 09/11 - broch washings -no growth to date 09/12 - urine -Maribell glabrata and parapsilosis 09/16 - blood cultures 2 - pending 09/16 - sputum -no growth 09/16 - urine -Maribell glabrata and parapsilosis 10/02 - blood cultures 2 - staph epi 10/02 - urine - ESBL positive Klebsiella 10/04 - blood cultures 2 - pending 10/05 - blood cultures 2 - pending Zosyn previously discontinued secondary to rash Heme: Normocytic anemia Left IJ/subclavian nonocclusive thrombus 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 Monitor PTT/INR INR currently 1.8 today Endo: Diabetes mellitus Hypothyroidism on SSI (medium scale) for glycemic control On Synthroid 200mcg daily. TSH 1.37 GI prophylaxis-Protonix 40mg Q12 DVT - Heparin gtt/Coumadin d/c heparin drip once INR>2.0 - Continue , SCDs Lines: Peripheral IV. - PEG 09/01/16 - Trach 09/15 -Right Permacath placed 09/29 Level 3 Loree Marinelli, daughter (HCP): [phone] Rony Matthewzalone, significant other: [phone] Problem Qualifiers (1) CHF (congestive heart failure): Qualified Code: I50.9 - Acute congestive heart failure, unspecified congestive heart failure type (2) Respiratory failure: Qualified Code: J96.02 - Acute respiratory failure with hypercapnia (3) Pneumonia: Qualified Code: J18.9 - Pneumonia of both lungs due to infectious organism, unspecified part of lung Ute Santamaria MD October 10, 2016 08:56
[2016-10-10] MEDS: BENEPROTEIN POWDER 1 PACK G-TUBE SCH ×3 (09:00→17:38)
--- NOTE | 2016-10-10 09:28 | HHI.NPPN ---
Subjective General Problems: Edema, Hypotension, Obesity Renal Failure: Acute Interval History Seen during dialysis. The nurse states she made some urine overnight that saturated underpad. She is awake, denies pain. On CPAP. (Genny Lowery) Review of Systems General Constitutional: Fever General Remarks no pain (Genny Lowery) Neuro Neuro Remarks generalized muscle fasciculation (Genny Lowery) Objective Data Data 10/09/16 10/10/16 19:00 07:00 Intake Total 642 ml 1134 ml Output Total 1 ml Balance 641 ml 1134 ml IV Total 140 ml 478 ml Tube Feeding 322 ml 596 ml Tube Irrigant 180 ml Other 60 ml Output Urine Total 0 ml Stool Total 1 ml # Voids 1 Vital Signs Date Time Temp Pulse Resp B/P Pulse Ox O2 Delivery O2 Flow Rate FiO2 10/10/16 07:50 40 10/10/16 07:48 96 40 10/10/16 06:00 85 10/10/16 04:30 93 40 10/10/16 04:00 100 10/10/16 04:00 99.8 100 24 110/77 93 10/10/16 04:00 40 10/10/16 02:00 95 10/10/16 01:20 93 40 10/10/16 00:00 99.3 88 20 129/72 93 10/10/16 00:00 40 10/10/16 00:00 88 10/09/16 22:00 77 10/09/16 22:00 40 10/09/16 21:47 96 40 10/09/16 20:00 40 10/09/16 20:00 89 10/09/16 20:00 99.8 89 24 128/81 95 10/09/16 19:25 94 40 10/09/16 18:00 101 10/09/16 17:00 99.0 91 22 114/69 93 10/09/16 16:24 95 40 10/09/16 16:00 83 10/09/16 16:00 40 10/09/16 16:00 83 113/64 95 10/09/16 15:00 91 148/76 96 10/09/16 14:00 81 103/66 95 10/09/16 14:00 81 10/09/16 13:21 96 40 10/09/16 13:00 78 99/56 95 10/09/16 12:00 97.8 84 20 122/75 95 10/09/16 12:00 40 10/09/16 12:00 84 122/75 95 10/09/16 12:00 84 10/09/16 11:00 86 92 10/09/16 10:10 99 160/121 95 10/09/16 10:01 117 159/101 95 10/09/16 10:00 115 96 10/09/16 10:00 115 (Genny Lowery) -: 10/10/16 0514 10/10/16 0514 Imaging Last Impressions Chest X-Ray 10/09/16 0600 Signed Impressions: Service Date/Time: Sunday, October 09, 2016 04:49 - CONCLUSION: Mild hazy opacity at the lung bases. This appears improved on the right. Sctoty Huynh MD Catheter Placement X-Ray 09/29/16 1223 Signed Impressions: Service Date/Time: Thursday, September 29, 2016 12:31 - CONCLUSION: Vas-Cath to PermCath exchange as detailed above. Taco Haas Jr., MD Renal Ultrasound 09/17/16 0000 Signed Impressions: Service Date/Time: Saturday, September 17, 2016 13:31 - CONCLUSION: Negative renal sonogram. Taco Davidson MD Upper Extremity Ultrasound 09/14/16 0000 Signed Impressions: Service Date/Time: August 08:32 - CONCLUSION: There is thrombus within the left subclavian and internal jugular veins. Danyel Escalante MD Lower Extremity Ultrasound 09/13/16 0000 Signed Impressions: Service Date/Time: Tuesday, September 13, 2016 22:33 - CONCLUSION: Normal examination. Leonides Mason MD Liver Ultrasound 09/08/16 0000 Signed Impressions: Service Date/Time: Thursday, September 08, 2016 08:45 - CONCLUSION: 1. Cholelithiasis with distended gallbladder. However, there are no associated findings present to diagnose acute cholecystitis. If there is persistent clinical concern for acute cholecystitis could evaluate for cystic duct obstruction with hepatobiliary scintigraphy. 2. Hepatomegaly with very heterogeneous echotexture and steatosis. Dejan Allison MD Gall Bladder Ultrasound 08/29/16 0000 Signed Impressions: Service Date/Time: Monday, August 29, 2016 15:21 - CONCLUSION: 1. Hepatomegaly with heterogeneous echotexture throughout the liver. 2. There is a large echogenic area near the neck of the gallbladder suggestive of a stone, but despite its large size, demonstrates no acoustic shadowing in any of the views. Taco Davidson MD CT Angiography 08/15/16 0000 Signed Impressions: Service Date/Time: Monday, August 15, 2016 02:33 - CONCLUSION: 1. No evidence for pulmonary embolism. 2. Multifocal consolidation greatest in the right lower lobe and associated adenopathy. Terry Estrada MD Tubes & Lines: Perma-Cath Tubes & Lines Comment trach, PEG, rectal tube Drip Comment heparin only (Genny Lowery B. IT BUSINESS A[employer]LY[employer]) Physical Exam General Appearance: Well Developed, No Acute Distress, Comfortable, Obese Appearance Remarks awake, nods head and mouths words (Genny Lowery B. IT BUSINESS ANALYST) Throat Throat Exam: Oral Mucosa Ruma & Moist Throat Remarks increased secretions from trach and oropharynx (Genny Lowery B. IT BUSINESS ANALYST) Neck Neck Exam: Neck Supple Neck Remarks trach (Genny Lowery B. IT BUSINESS ANALYST) Pulmonary Resp Exam: Crackles, Rhonchi, Sputum, Diminished Breath Sounds Resp Remarks vented lung sounds course throughout (Genny Lowery B. IT BUSINESS ANALYST) Cardiology CV Exam: Regular, Good Perfusion, Tachycardia (Genny Lowery B. IT BUSINESS ANALYST) Gastrointestinal/Abdomen GI Exam: Soft, Bowel Sounds Present GI Remarks morbidly obese, + PEG (Genny Lowery B. IT BUSINESS ANALYST) Musculoskeletal MS Exam: Joints Intact, Normal Tone (Genny Lowery B. IT BUSINESS ANALYST) Integumentary Skin Exam: Warm, Dry Skin Remarks flaking/peeling skin (Genyn Lowery B. IT BUSINESS ANALYST) Extremeties Extremities Exam: Dependent Edema Extremeties Remarks all four extremities (Genny Lowery B. IT BUSINESS ANALYST) Neurologic Neuro Exam: Alert, Awake, Moving All Extremities Neuro Remarks awake but unresponsive muscle fasiculation in all 4 extremities, eye twitching (Genny Lowery B. IT BUSINESS ANALYST) VTE Prophylaxis Meds: Heparin (BeverleyGenny chavez) Assessment/Plan Discussed Condition With: Patient Assessment Summary: MIKE/Acute Renal Failure, Acute Tubular Necrosis, Fluid/ Volume Overload Electrolyte Assessment: Hyponatremia Problem List: (1) Acute kidney injury Plan: ARF due to ATN HD initiated 09/20; she is dialysis dependent and currently on TTS schedule. s/p PermCath placement seen during dialysis today on a 4K, 350 BFR, goal 3L UF edematous, on Bumex, monitor fluid volume status she was anuric, but RN reports the patient did make urine last night, exact volume unknown K should correct, on 4K bath with HD today continue Nepro tube feeding begin free water flushes ; continue PhosLo for hyperphosphatemia Avoid nephrotoxic agents. await signs of renal recovery, Continue supportive care. (2) ARDS (adult respiratory distress syndrome) Plan: s/p trach placement continue Ventilator support, on CPAP 40%, PEEP 8 Floor Layer Helper managing. Ween when able (3) Anemia Plan: Hb low but stable on heparin and protonix GI following, (4) Pneumonia Plan: intermittent fevers, leukocytosis resolved; recent sputum culture showing Pseudomonas multidrug resistant organisms. ID following. She is now on Zerbaxa (5) Hypothyroidism Plan: on synthroid (6) Morbid obesity (7) DVT (deep venous thrombosis) Plan: in IJ after central line placement (provoked) on heparin bridge to Coumadin , follow INR (Genny Lowery) Problem List: (1) Acute kidney injury Plan: ARF due to ATN HD initiated 09/20; she is dialysis dependent and currently on TTS schedule. s/p PermCath placement seen during dialysis today on a 4K, 350 BFR, goal 3L UF edematous, on Bumex, monitor fluid volume status she was anuric, but RN reports the patient did make urine last night, exact volume unknown K should correct, on 4K bath with HD today continue Nepro tube feeding begin free water flushes ; continue PhosLo for hyperphosphatemia Avoid nephrotoxic agents. await signs of renal recovery, Continue supportive care. (2) ARDS (adult respiratory distress syndrome) Plan: s/p trach placement continue Ventilator support, on CPAP 40%, PEEP 8 Floor Layer Helper managing. Ween when able (3) Anemia Plan: Hb low but stable on heparin and protonix GI following, (4) Pneumonia Plan: intermittent fevers, leukocytosis resolved; recent sputum culture showing Pseudomonas multidrug resistant organisms. ID following. She is now on Zerbaxa (5) Hypothyroidism Plan: on synthroid (6) Morbid obesity (7) DVT (deep venous thrombosis) Plan: in IJ after central line placement (provoked) on heparin bridge to Coumadin , follow INR Plan patient was seen and examined. Agree with above assessment and plan. (Anshu Tan MD) Problem Qualifiers (1) Pneumonia: Qualified Code: J18.9 - Pneumonia of both lungs due to infectious organism, unspecified part of lung Genny Lowery [facility] October 10, 2016 09:28 Anshu Tan MD October 10, 2016 11:38
[2016-10-10] MEDS: ALBUMIN HUMAN 25% 25 GM/100 ML BAGP IV PRN (10:10)
--- NOTE | 2016-10-10 11:14 | HHI.IDPN ---
Subjective Subjective Remarks Patient is admitted to ICU with respiratory failure, CHF, pneumonia, probable underlying COPD. Patient was intubated and placed on mechanical ventilation. NOt weaning and had trach done 09/15. Has been having fevers. s/p Rx for PSAE PNA and C glabrata UTI. ID now following for ESBL HCAP. Overnight events reviewed. Low grade fevers 99 F. defervescing. Oliguric,on HD Tues, Thurs, Sat. Remains on vent. Secretions thick, yellow, moderate. Not on pressors. On Tube feeds, tolerating. PEG tube site ok. No diarrhea Has clot in her LUE, on heparin Antibiotics Zerbaxa IV Lines Line sites with no e.o infection. Past Medical History reviewed. Allergies: Coded Allergies: Fentanyl (Verified Adverse Reaction, Severe, rash, 09/21/16) *MDRO Multi-Drug Resistant Organism (Verified Adverse Reaction, Unknown, ) ESBL (urine & sputum)-10/02/16 Objective . Vital Signs Date Time Temp Pulse Resp B/P Pulse Ox O2 Delivery O2 Flow Rate FiO2 10/10/16 10:00 103 121/83 93 10/10/16 10:00 103 10/10/16 09:45 104 134/76 92 10/10/16 09:30 108 148/68 93 10/10/16 09:15 107 164/84 95 10/10/16 09:00 112 160/99 98 10/10/16 08:59 108 148/91 99 10/10/16 08:50 96 144/87 95 10/10/16 08:00 40 10/10/16 08:00 91 10/10/16 08:00 99.0 91 139/81 96 10/10/16 07:50 40 10/10/16 07:48 96 40 10/10/16 07:00 92 134/82 95 10/10/16 06:00 85 10/10/16 06:00 85 127/66 95 10/10/16 05:01 93 151/95 96 10/10/16 05:00 94 95 10/10/16 04:30 93 40 10/10/16 04:04 99 110/77 93 10/10/16 04:00 100 10/10/16 04:00 100 93 10/10/16 04:00 99.8 100 24 110/77 93 10/10/16 04:00 40 10/10/16 02:00 95 10/10/16 01:20 93 40 10/10/16 00:00 99.3 88 20 129/72 93 10/10/16 00:00 40 10/10/16 00:00 88 10/09/16 22:00 77 10/09/16 22:00 40 10/09/16 21:47 96 40 10/09/16 20:00 40 10/09/16 20:00 89 10/09/16 20:00 99.8 89 24 128/81 95 10/09/16 19:25 94 40 10/09/16 18:00 101 10/09/16 17:00 99.0 91 22 114/69 93 10/09/16 16:24 95 40 10/09/16 16:00 83 10/09/16 16:00 40 10/09/16 16:00 83 113/64 95 10/09/16 15:00 91 148/76 96 10/09/16 14:00 81 103/66 95 10/09/16 14:00 81 10/09/16 13:21 96 40 10/09/16 13:00 78 99/56 95 10/09/16 12:00 97.8 84 20 122/75 95 10/09/16 12:00 40 10/09/16 12:00 84 122/75 95 10/09/16 12:00 84 10/09/16 10/09/16 10/10/16 15:00 23:00 07:00 Intake Total 642 ml 644 ml 490 ml Output Total 1 ml Balance 641 ml 644 ml 490 ml IV Total 140 ml 233 ml 245 ml Tube Feeding 322 ml 351 ml 245 ml Tube Irrigant 180 ml Other 60 ml Output Urine Total 0 ml Stool Total 1 ml # Voids 1 . Laboratory Tests Test 10/09/16 10/10/16 05:25 05:14 White Blood Count 7.6 TH/MM3 6.7 TH/MM3 Red Blood Count 2.86 MIL/MM3 2.81 MIL/MM3 Hemoglobin 8.1 GM/DL 8.1 GM/DL Hematocrit 24.0 % 23.4 % Mean Corpuscular Volume 83.7 FL 83.3 FL Mean Corpuscular Hemoglobin 28.2 PG 28.6 PG Mean Corpuscular Hemoglobin 33.7 % 34.3 % Concent Red Cell Distribution Width 18.2 % 18.0 % Platelet Count 374 TH/MM3 352 TH/MM3 Mean Platelet Volume 7.3 FL 7.0 FL Neutrophils (%) (Auto) 65.6 % Lymphocytes (%) (Auto) 13.7 % Monocytes (%) (Auto) 7.6 % Eosinophils (%) (Auto) 11.6 % Basophils (%) (Auto) 1.5 % Neutrophils # (Auto) 4.4 TH/MM3 Lymphocytes # (Auto) 0.9 TH/MM3 Monocytes # (Auto) 0.5 TH/MM3 Eosinophils # (Auto) 0.8 TH/MM3 Basophils # (Auto) 0.1 TH/MM3 CBC Comment AUTO DIFF Differential Total Cells 100 Counted Neutrophils % (Manual) 66 % Band Neutrophils % 10 % Lymphocytes % 8 % Monocytes % 6 % Eosinophils % 8 % Basophils % 1 % Neutrophils # (Manual) 5.2 TH/MM3 Myelocytes 1 % Differential Comment FINAL DIFF MANUAL Platelet Estimate NORMAL Platelet Morphology Comment NORMAL Laboratory Tests Test 10/09/16 10/10/16 09:16 05:14 Sodium Level 137 MEQ/L 136 MEQ/L Potassium Level 3.3 MEQ/L 3.3 MEQ/L Chloride Level 95 MEQ/L 94 MEQ/L Carbon Dioxide Level 28.7 MEQ/L 27.2 MEQ/L Anion Gap 13 MEQ/L 15 MEQ/L Blood Urea Nitrogen 55 MG/DL 65 MG/DL Creatinine 3.50 MG/DL 3.72 MG/DL Estimat Glomerular Filtration 14 ML/MIN 13 ML/MIN Rate Random Glucose 131 MG/DL 135 MG/DL Calcium Level 9.1 MG/DL 9.2 MG/DL Imaging Chest X-Ray 09/15/16 0600 Signed Impressions: Service Date/Time: Thursday, September 15, 2016 03:52 - CONCLUSION: Persistent and unchanged bibasilar infiltrates. Taco Haas Jr., MD Chest X-Ray 09/15/16 0000 Signed Impressions: Service Date/Time: Thursday, September 15, 2016 11:00 - CONCLUSION: Placement of tracheostomy tube otherwise not changed. Danyel Escalante MD Liver Ultrasound 09/08/16 0000 Signed Impressions: Service Date/Time: Thursday, September 08, 2016 08:45 - CONCLUSION: 1. Cholelithiasis with distended gallbladder. However, there are no associated findings present to diagnose acute cholecystitis. If there is persistent clinical concern for acute cholecystitis could evaluate for cystic duct obstruction with hepatobiliary scintigraphy. 2. Hepatomegaly with very heterogeneous echotexture and steatosis. Dejan Allison MD Chest X-Ray 09/06/16 0000 Signed Impressions: Service Date/Time: Tuesday, September 06, 2016 11:09 - CONCLUSION: No significant change has occurred. Terry Estrada MD Gall Bladder Ultrasound 08/29/16 0000 Signed Impressions: Service Date/Time: Monday, August 29, 2016 15:21 - CONCLUSION: 1. Hepatomegaly with heterogeneous echotexture throughout the liver. 2. There is a large echogenic area near the neck of the gallbladder suggestive of a stone, but despite its large size, demonstrates no acoustic shadowing in any of the views. Taco Davidson MD CT Angiography 08/15/16 0000 Signed Impressions: Service Date/Time: Monday, August 15, 2016 02:33 - CONCLUSION: 1. No evidence for pulmonary embolism. 2. Multifocal consolidation greatest in the right lower lobe and associated adenopathy. Terry Estrada MD Physical Exam GENERAL: Morbidly obese CF patient, awake, NAD, on the vent SKIN: Has patches of redness on her trunk, and some papules in extremities HEAD: Atraumatic. Normocephalic. No temporal or scalp tenderness. EYES: Pupils equal round and reactive. No scleral icterus. Moist mucosa ENT: No nasal discharge. Dry oral mucosa NECK: Large neck. Supple. Trach in place CARDIOVASCULAR: Regular rate and rhythm RESPIRATORY: Clear to auscultation. Breath sounds equal bilaterally. GASTROINTESTINAL: Abdomen soft, obese, non-tender, nondistended. MUSCULOSKELETAL: Extremities without clubbing, cyanosis. Edema (+) NEUROLOGICAL: eyes open, did not track of focus PIV with no evidence of infection Miller in place with clear urine. Assessment & Plan Remarks Sepsis present on admission. HCAP: ESBL and very MDR PSAE Staph epidermidis: possible contaminant but will repeat HD cath culture. Morbid Obesity (BMI 45.8 kg/m2) Obstructive Sleep Apnea (supposed to be on CPAP at home and home oxygen 2L) Acute respiratory failure vent dependent. Acute metabolic encephalopathy: infection, meds. Thrombosis of cephalic vein. Renal insufficiency, now on HD Recs: Continue Zerbaxa IV (ASP: MDR PSAE resistant to carbapenem, fevers persistent) Follow clinically. If fevers persist or worsening sepsis consider adding Zyvox and repeat rudolph cultures merly sputum. Weaning per CCM Monitor progress Follow oscar Uriarte/Terri Stoddard RN, MD October 10, 2016 11:14
[2016-10-10] MEDS: GENTAMICIN SULFATE (DIALYSIS USE ONLY) 20 MG/2 ML VIAL IV PRN (11:57)
[2016-10-10] MEDS: HEPARIN SODIUM - IV 10,000 UNITS/10 ML VIAL PRN (11:58)
[2016-10-10] MEDS: FAMOTIDINE 40 MG/5 ML LIQ 50 ML BTL NG SCH ×2 (11:59→19:39)
[2016-10-10] MEDS: HEPARIN-D5W 25,000 U/250 ML 250 ML IV SCH (11:59)
[2016-10-10] MEDS: ARTIFICIAL TEARS OPTH SOLN 15 ML BTL EACH EYE SCH ×3 (12:00→17:38)
[2016-10-10] MEDS: METOPROLOL TARTRATE 25 MG TAB G-TUBE SCH ×2 (12:00→19:39)
[2016-10-10] MEDS: DOCUSATE SODIUM 100 MG/10 ML UDC PO SCH ×2 (12:00→19:39)
[2016-10-10] MEDS: EUCERIN CREAM 120 GM JAR TOPICAL SCH ×2 (12:01→19:39)
[2016-10-10] MEDS: SODIUM CHLORIDE 0.9% FLUSH 10 ML FLUSH IVF SCH (12:01)
[2016-10-10] MEDS: SODIUM CHLORIDE 0.9% FLUSH 10 ML FLUSH IV FLUSH SCH ×2 (12:01→19:39)
[2016-10-10] MEDS: CALCIUM ACETATE 667 MG CAP PO SCH ×3 (12:01→17:38)
[2016-10-10] MEDS: WARFARIN SOD 5 MG TAB PO SCH (15:57)
[2016-10-10] MEDS ORDERED: WARFARIN SOD 7.5 MG TAB PO SCH (16:00)
--- NOTE | 2016-10-10 19:28 | HHI.PR ---
Subjective Remarks Awake and on vent support , FIO2 at 40 %. Has been on CPAP for over 6 hrs. Was dialyzed. Seems more alert and moves arms and legs Objective Vital Signs Date Time Temp Pulse Resp B/P Pulse Ox O2 Delivery O2 Flow Rate FiO2 10/10/16 18:00 87 10/10/16 16:00 100.5 97 121/78 96 10/10/16 16:00 97 10/10/16 16:00 40 10/10/16 15:45 95 98 10/10/16 15:36 97 40 10/10/16 15:00 87 117/72 96 10/10/16 14:45 87 96 10/10/16 14:00 101 10/10/16 14:00 101 138/86 98 10/10/16 13:45 93 98 10/10/16 13:00 91 129/78 96 10/10/16 12:45 90 125/76 95 10/10/16 12:45 90 125/76 95 10/10/16 12:31 97 40 10/10/16 12:30 101 126/77 99 10/10/16 12:15 101 127/83 96 10/10/16 12:00 103 10/10/16 12:00 40 10/10/16 12:00 100.2 103 141/80 95 10/10/16 11:58 105 138/84 95 10/10/16 11:45 103 132/85 96 10/10/16 11:30 102 135/89 93 10/10/16 11:15 105 132/90 95 10/10/16 11:00 101 129/83 91 10/10/16 10:45 107 158/89 97 10/10/16 10:34 109 160/91 97 10/10/16 10:30 109 196/79 96 10/10/16 10:16 111 173/87 98 10/10/16 10:00 103 121/83 93 10/10/16 10:00 103 121/83 93 10/10/16 10:00 103 10/10/16 09:45 104 134/76 92 10/10/16 09:30 108 148/68 93 10/10/16 09:15 107 164/84 95 10/10/16 09:00 112 160/99 98 10/10/16 08:59 108 148/91 99 10/10/16 08:50 96 144/87 95 10/10/16 08:00 40 10/10/16 08:00 91 10/10/16 08:00 99.0 91 139/81 96 10/10/16 07:50 40 10/10/16 07:48 96 40 10/10/16 07:00 92 134/82 95 10/10/16 06:00 85 10/10/16 06:00 85 127/66 95 10/10/16 05:01 93 151/95 96 10/10/16 05:00 94 95 10/10/16 04:30 93 40 10/10/16 04:04 99 110/77 93 10/10/16 04:00 100 10/10/16 04:00 100 93 10/10/16 04:00 99.8 100 24 110/77 93 10/10/16 04:00 40 10/10/16 02:00 95 10/10/16 01:20 93 40 10/10/16 00:00 99.3 88 20 129/72 93 10/10/16 00:00 40 10/10/16 00:00 88 10/09/16 22:00 77 10/09/16 22:00 40 10/09/16 21:47 96 40 10/09/16 20:00 40 10/09/16 20:00 89 10/09/16 20:00 99.8 89 24 128/81 95 I/O 10/09/16 10/09/16 10/09/16 10/10/16 10/10/16 10/10/16 07:00 15:00 23:00 07:00 15:00 23:00 Intake Total 372 ml 642 ml 644 ml 490 ml 661 ml Output Total 2 ml 1 ml 3500 ml Balance 370 ml 641 ml 644 ml 490 ml -2839 ml IV Total 252 ml 140 ml 233 ml 245 ml 249 ml Tube Feeding 322 ml 351 ml 245 ml 252 ml Tube Irrigant 180 ml Other 120 ml 60 ml 160 ml Output Urine Total 0 ml 0 ml Stool Total 2 ml 1 ml Hemodialysis 3500 ml # Voids 1 Result Diagram: 10/10/1651310/10/16513 Objective Remarks This is an obese middle-aged white female who is responsive and cooperative HEENT: Head normocephalic. Pupils react. Neck: No bruits, no thyroid enlargement, no lymphadenopathy. Chest: Decreased breath sounds. Occ crackles. Heart: Heart sounds were regular. S1-S2 no murmur, no S3. Abdomen: Soft, benign. No masses, or tenderness. Bowel sounds are active. Extremities: Mild edema . Neuro :Moves feet. Awake . Assessment and Plan Assessment and Plan IMPRESSION 1. Acute hypercapnic respiratory failure. 2. Pulmonary edema. 3. Drug rash 4. Obstructive sleep apnea syndrome 5. Hypertension 6. Hypothyroidism. 7. MIKE Plan : 1. Cont T Bar Trial upto 4 hrs daily. 2. Trach toilet and suctioning. 3. Nebs qid , duoneb. 4. Daily CPAP trial upto 12 Hrs. Then to A/C 10 at HS 5. No sedation. 6. PT and OT 7. Tube feeds at 50 CC Abimael Beck MD October 10, 2016 19:28
[2016-10-10] MEDS: PRAVASTATIN SOD 20 MG TAB PO SCH (19:39)
[2016-10-10] MEDS: MELATONIN 5 MG TAB PO SCH (19:39)
[2016-10-11] VITALS (30 sets, daily range): BP systolic 113–182; BP diastolic 68–112; PULSE 82–118; RESP 20–24; TEMP 99–99.4; O2SAT 92–100
[2016-10-11] MEDS: CEFTOLOZANE-TAZOBACTAM INJ 150 MG in SODIUM CHLORIDE 0.9% INJ 100 ML IV SCH ×3 (03:37→22:17)
[2016-10-11] MEDS: HEPARIN-D5W 25,000 U/250 ML 250 ML IV SCH (03:40)
[2016-10-11] MEDS: CHLORHEXIDINE GLUCONATE 2 % 1 PACK (2 CLOTHS) TOP SCH (03:41)
[2016-10-11] MEDS: RESP: ALBUTEROL 2.5 MG/IPRATROPIUM 0.5 MG NEB (SCH) INH ×2 (05:36→07:44)
[2016-10-11] MEDS: QUEtiapine FUMARATE 25 MG TAB PO SCH ×3 (05:59→20:00)
[2016-10-11] MEDS: LEVOTHYROXINE SODIUM 200 MCG TAB PO SCH (05:59)
[2016-10-11 06:10] LABS: AUTOMATED NEUTROPHIL # 3.7 TH/MM3 (1.8-7.7); BASOPHIL # 0.1 TH/MM3 (0-0.2); BASOPHIL % 1.6 % (0.0-2.0); EOSINOPHIL # 0.6 TH/MM3 (0-0.4); EOSINOPHIL % 10.8 % (0.0-4.0); HEMATOCRIT 24.4 % (35.0-46.0); LYMPH % 16.5 % (9.0-44.0); MEAN CELL VOLUME 83.2 FL (80.0-100.0); MEAN CORPUSCULAR HEMOGLOBIN 27.6 PG (27.0-34.0); MEAN CORPUSCULAR HGB CONC 33.2 % (32.0-36.0); MONO % 8.6 % (0.0-8.0); NEUT % 62.5 % (16.0-70.0); PLATELET COUNT 330 TH/MM3 (150-450); RED BLOOD COUNT 2.94 MIL/MM3 (4.00-5.30); RED CELL DISTRIBUTION WIDTH 18.2 % (11.6-17.2)
[2016-10-11 06:13] LABS: HEMO FLAGS AUTO DIFF
[2016-10-11 06:20] LABS: INTERNATIONAL NORMALIZED RATIO 2.2 RATIO
[2016-10-11 06:31] LABS: BICARBONATE 29.6 MEQ/L (21.0-32.0); POTASSIUM 3.2 MEQ/L (3.5-5.1)
[2016-10-11 06:35] LABS: APTT (PATIENT) 105.2 SEC (24.3-30.1)
[2016-10-11 07:12] LABS: BANDS 5 % (0-6); BASOPHILS 1 % (0-2); EOSINOPHILS 4 % (0-4); NEUTROPHIL # MANUAL DIFF 4.3 TH/MM3 (1.8-7.7); POLYS (SEG NEUTROPHILS) 66 % (16-70); WBC DIFF SAMPLE 100
[2016-10-11 07:14] LABS: PLATELET ESTIMATE SMEAR NORMAL (NORMAL); PLATELET MORPHOLOGY NORMAL (NORMAL); SCAN/DIFF FINAL DIFF MANUAL
[2016-10-11] MEDS: BENEPROTEIN POWDER 1 PACK G-TUBE SCH ×3 (08:28→17:52)
[2016-10-11] MEDS: ARTIFICIAL TEARS OPTH SOLN 15 ML BTL EACH EYE SCH ×3 (08:28→17:52)
[2016-10-11] MEDS: METOPROLOL TARTRATE 25 MG TAB G-TUBE SCH ×2 (08:28→19:43)
[2016-10-11] MEDS: DOCUSATE SODIUM 100 MG/10 ML UDC PO SCH ×2 (08:29→19:43)
[2016-10-11] MEDS: SODIUM CHLORIDE 0.9% FLUSH 10 ML FLUSH IVF SCH (08:29)
[2016-10-11] MEDS: CALCIUM ACETATE 667 MG CAP PO SCH ×3 (08:29→17:52)
[2016-10-11] MEDS: FAMOTIDINE 40 MG/5 ML LIQ 50 ML BTL NG SCH ×2 (08:29→20:00)
[2016-10-11] MEDS: SODIUM CHLORIDE 0.9% FLUSH 10 ML FLUSH IV FLUSH SCH ×2 (08:29→19:44)
[2016-10-11] MEDS: EUCERIN CREAM 120 GM JAR TOPICAL SCH ×2 (08:30→19:45)
--- NOTE | 2016-10-11 08:35 | HHI.CCPN ---
Subjective Remarks/Hospital Course 56-year-old morbidly obese female brought in the emergency department in respiratory distress. She was intubated by ER attending. She has been sick for about a week with symptoms consistent with UTI. She's had fevers and chills. She's been short of breath. She's had fatigue. She has had a cough and chest pain with coughing. The family reports that she's been delirious for the last 3 days. 08/15 Patient is sedated with Diprivan, Versed, Fentanyl and intubated. CTA chest showed no PE multifocal consolidation greatest in RLL. Tmax 100.6 08/16 Patient is sedated with Diprivan and Fentanyl. Afebrile. CXR this morning showed increase consolidation. 08/17 Patient remains sedated and intubated. T:100.4 On PRVC/AC RR 18, Tv 500, IT :1.0 PEEP:10, FIO2 75% 08/18 Remains sedated and intubated. Afebrile. CXR this morning unchanged bibasilar infiltrates and effusions. 08/19 Patient was placed on rotoprone bed last night for proning sedated with Diprivan, Versed and Fentnayl in addition she is on Nimbex. On PRVC/AC RR 20, TV 400, IT:1.1, PEEP:14 and FIO2 80%. Afebrile. 08/20 Patient remains sedated and intubated. Remains on PRVC/AC mode with improvements in her oxygenation on FIO2 50% from 80% yesterday and PEEP:12. 08/21 Patient remains sedated and intubated. On PRVC/AC mode with RR 20, TV 400, IT:1.1, PEEP: 12 and FIO2 50%. Afebrile. 08/22 No acute events overnight. Remains sedated, intubated and on Nimbex.. T: 99.8. On PRVC mode with PEP: 12, FIO2 50%. CXR from yesterday showed better aeration, RLL infiltrate unchanged. 08/23 Chest x-ray worsening. Methylprednisolone taper to twice a day by pulmonary. The patient's FiO2 was found to be 100% this a.m., will continue to wean. 08/24: 1 desat episode yesterday when supine. still remains prone now. no vasopressors. sedated and paralyzed. 08/25: flolan added yesterday. fio2 down to 60%. remained supine all night. still on neuromuscular blockade. net -500cc/24h. 08/26: good diuresis. remained supine. fio2 70%. weaning flolan. remains with significant respiratory support and high peep despite 6L diuresis overnight. Cr still stable. 08/27: continues with good diuresis. net negative 3L/24h. fio2 down to 55%. flolan off. still high peep. not ready for SBT. more agitated today. Cr remains stable despite aggressive diuresis. 08/28: diuresis continues. -3.3L/24h. spiked fever overnight with a jump in wbc to 16 this AM. fio2 60%, but her pulmonary improvements have plateaued at this point. still on peep 12. 08/29: net -1.7L/24h. Cr starting to rise. still spiking fevers despite vanc/ cefepime added yesterday. wbc continues to rise. clinically appears infected, although unclear source. peep 10, fio2 60%. will likely need trach. 08/30: net +800cc, but Cr downtrending. appears clinically euvolemic. fever curve downtrending. wbc downtrending. on 40% fio2, peep 8 today. still following commands. 08/31: failed SBT after only 45 minutes yesterday. intubated for > 2 weeks at this point. will attempt to pursue trach/peg today. will continue with pulmonary strengthening. daily SBTs. 09/01 CXR showing increasing bibasilar infiltrate. Failed C Pap trial in 5 minutes due to severe tachypnea. PEG tube today. Family has not decided on trach yet 09/02: Patient febrile to 101.1, CXR increased infiltrate Tmax Tmax 101.1. Currently 9.7 left upper lung and right lower lobe. Pancultured. Cefepime added today and one dose of vancomycin. Continues to fail C Pap trial due to tachypnea and respiratory distress 09/03: Remains hypoxemic on 75% oxygen with new pneumonia. Sputum culture 09/02/16 with GNR. Family agreeable for tracheostomy but patient is not stable at this point for trach 09/04: still on 70% fio2. still hypoxic. pneumonia persists. needs trach, but too unstable at this point. 09/05: remains on 75% fio2. pseudomonas sensitivities came back resistant to carbapenems, intermediate to levaquin. still spiking fevers. not clinically improving. wbc remains elevated. 09/06: Remains on 12 of PEEP and FiO2 75%. Zosyn and tobramycin started yesterday. WBC count trending down today 11.5 from 13.1. Remains heavily sedated for ventilator synchrony. MAXIMUM TEMPERATURE 100.3 09/07: Continues to spike fever. CXR unchanged. WBC count improving. PEEP 14. FiO2 60%. Will start IV Bumex 1mg IV q12 09/09: Tolerating tube feeds at goal. Afebrile. No documented bowel movement. Currently sedated on the ventilator 09/10: Tmax 99.7. Currently 99.4. No bowel movement yesterday. None document since 09/04. Arousable on the ventilator 09/11: Tmax 102.6. Currently 100. Positive BM. Arousable on the ventilator. Tolerating tube feeds. Central line changed yesterday. Plan for bronchoscopy at 1 PM. 09/12: Tmax 100.1. Currently afebrile. Follows commands today. Wiggles toes and give thumbs up appropriately. MRI brain canceled. Tolerating tube feeding with positive BM. Tracheostomy currently planned for . 09/13: Tmax 102. Again on sedation [place] commands by wiggling toes bilaterally and giving thumbs up bilaterally appropriate. Tolerating tube feeding with positive BM. Tracheostomy planned for tomorrow with Dr. Ortega. 09/14: Low grade fever. CXR showing more prominent infiltrate on the right lower lobe and left upper lobe. WBC trending up still in normal range. Patient is on 40% FiO2 but continues to fail CPAP due to tachypnea 09/15: Remains intubated sedated, unable to wean off the vent. Plan for tracheostomy today with Dr. Ortega. Continues to have low grade fever. CXR with persistent bibasilar infiltrates 09/16: Tmax 101.1. Currently 100.7. Awake and alert. Following commands. 09/17: Afebrile. Currently on PSV trial. Tolerating tube feeds. One bowel movement. Noted decreased urine output past 48 hours. Diuretics have been discontinued. This a.m. creatinine currently pending. 09/18: Afebrile. Adequate urine output yesterday but decreased 150 past 8 hours. Tolerating tube feeds. One bowel movement. Not tolerating PSV trials today. 09/19: Tmax 100.5. Urine output picking up. Tolerating tube feeds. No bowel movement 48 hours. Not tolerating PSV trials. 09/20: Diffuse drug morbilliform exanthem noted this a.m. Tmax 100.6. Urine output around 20 cc an hour. Not tolerating PSV trials. Possibly new right pleural effusion noted on chest x-ray. Will need hemodialysis 09/21: Tmax 100.6 currently 98.7. -4 L with hemodialysis yesterday and today. FiO2 to 60%. Tolerating tube feeds. Positive BM. Still requiring sedation 09/22: Afebrile. Tolerating tube feeds. Positive BM. 30 g per kilogram per minute of propofol. Tolerated PSV trials 3 hours today 09/23 HD today with 3.5 L removal. Tolerating CPAP for 8 hours, currently 45% with RSBI 45%. 09/24 Called by RN this morning for concern for bloody BMs. Placed heparin and warfarin on hold. Serial Hgb ordered. Hgb 9.3 -->8.6 and hemodynamically unchanged. Started on protonix drip. Heme stool is negative and now RN states she is concerned about the adequacy of specimen, so sending repeat. Had asked GI to see, however further workup will not be indicated if hemoccult is negative. Tolerating PSV 05/06 09/25: heparin restarted. hemocult negative x 2. 09/26: no changes. still failing cpap trials. 09/27: Tmax 101.5. Currently 99.5. Resting on Diprivan drip at 25 mcg/kg/m. Currently tolerating tube feeding.. One bowel movement. 09/28: Hemoglobin trending downward. Transfusing 1 unit PRBCs with hemodialysis today. Currently afebrile. Appears comfortable ventilator 2 bowel movements 09/29 No events overnight. Sedated with Diprivan and on ventilator via trach. T: 99.9 For Perma Cath placement today. s/p HD yesterday with removal 4L and transfusion 1unit PRBC with HD. 09/30: Tmax 100.8. No events overnight. No bowel movement. Tolerating tube feeds. 10/01: Tmax 101.3. Currently resting in bed in no acute distress. Tolerating tube feeds. Chest x-ray revealed atelectasis. -5 L with hemodialysis yesterday. 10/02 Patient remains on ventilator via trach on PRVC/AC with PEEP: 10 and FIO2 50 %. T: 102.1 at 4 am. 10/03 Patient is off sedation on ventilator via trach. Tmax 101.2 last night. For HD today. 10/04: Tmax 101.5. Currently afebrile. Tolerating PSV trial. Hemodialysis - 4.5 L yesterday. Positive BM. New rash. Received chlorhexidine today. 10/05: Tmax 100. Currently 98.9. Positive BM. Tolerating tube feeds. Less erythematous today. Currently on dialysis 10/06: Tmax 99.9. Currently 99.7. Currently on PSV trial 09/12 @ 45%. Tolerating tube feed. Positive bowel movement 10/07: Tmax 99.8. currently psv 10/8/40%. has not been out of bed in weeks due to critical illness. needs to be mobilized. still no placement plan. Subjective 10/08: Tmax 100.4. on t-piece currently. tolerated psv yesterday. have ordered specialty chair and currently awaiting it to arrive. 10/09 Patient remains on ventilator via trach, T:99.9 on no sedation. 10/10 No acute events overnight. For HD today on heparin drip. T:99.8, tolerating tube feeds. 10/11 No events overnight. s/p HD yesterday with removal 3.5L. Tmax 100.5. Tolerating CPAP on PS 10, PEEP: 5 and FIO2 40%. Objective Vital Signs Date Time Temp Pulse Resp B/P Pulse Ox O2 Delivery O2 Flow Rate FiO2 10/11/16 07:40 97 40 10/11/16 06:00 98 10/11/16 04:00 99.3 24 171/89 Intake and Output 10/10/16 10/10/16 10/11/16 08:00 16:00 00:00 Intake Total 490 ml 661 ml 627 ml Output Total 3500 ml Balance 490 ml -2839 ml 627 ml Result Diagram: 10/11/16 0456 10/11/16 0456 Other Results Laboratory Tests Test 10/11/16 04:56 White Blood Count 6.0 TH/MM3 Red Blood Count 2.94 MIL/MM3 Hemoglobin 8.1 GM/DL Hematocrit 24.4 % Mean Corpuscular Volume 83.2 FL Mean Corpuscular Hemoglobin 27.6 PG Mean Corpuscular Hemoglobin 33.2 % Concent Red Cell Distribution Width 18.2 % Platelet Count 330 TH/MM3 Mean Platelet Volume 7.4 FL Neutrophils (%) (Auto) 62.5 % Lymphocytes (%) (Auto) 16.5 % Monocytes (%) (Auto) 8.6 % Eosinophils (%) (Auto) 10.8 % Basophils (%) (Auto) 1.6 % Neutrophils # (Auto) 3.7 TH/MM3 Lymphocytes # (Auto) 1.0 TH/MM3 Monocytes # (Auto) 0.5 TH/MM3 Eosinophils # (Auto) 0.6 TH/MM3 Basophils # (Auto) 0.1 TH/MM3 CBC Comment AUTO DIFF Differential Total Cells 100 Counted Neutrophils % (Manual) 66 % Band Neutrophils % 5 % Lymphocytes % 16 % Monocytes % 8 % Eosinophils % 4 % Basophils % 1 % Neutrophils # (Manual) 4.3 TH/MM3 Differential Comment FINAL DIFF MANUAL Platelet Estimate NORMAL Platelet Morphology Comment NORMAL Prothrombin Time 25.0 SEC Prothromb Time International 2.2 RATIO Ratio Activated Partial 105.2 SEC Thromboplast Time Sodium Level 138 MEQ/L Potassium Level 3.2 MEQ/L Chloride Level 97 MEQ/L Carbon Dioxide Level 29.6 MEQ/L Anion Gap 11 MEQ/L Blood Urea Nitrogen 44 MG/DL Creatinine 2.64 MG/DL Estimat Glomerular Filtration 19 ML/MIN Rate Random Glucose 138 MG/DL Calcium Level 9.4 MG/DL Imaging Last Impressions Chest X-Ray 10/09/16 0600 Signed Impressions: Service Date/Time: Sunday, October 09, 2016 04:49 - CONCLUSION: Mild hazy opacity at the lung bases. This appears improved on the right. Scotty Huynh MD Catheter Placement X-Ray 09/29/16 1223 Signed Impressions: Service Date/Time: Thursday, September 29, 2016 12:31 - CONCLUSION: Vas-Cath to PermCath exchange as detailed above. Taco Haas Jr., MD Renal Ultrasound 09/17/16 0000 Signed Impressions: Service Date/Time: Saturday, September 17, 2016 13:31 - CONCLUSION: Negative renal sonogram. Taco Davidson MD Upper Extremity Ultrasound 09/14/16 0000 Signed Impressions: Service Date/Time: August 08:32 - CONCLUSION: There is thrombus within the left subclavian and internal jugular veins. Danyel Escalante MD Lower Extremity Ultrasound 09/13/16 0000 Signed Impressions: Service Date/Time: Tuesday, September 13, 2016 22:33 - CONCLUSION: Normal examination. Leonides Mason MD Liver Ultrasound 09/08/16 0000 Signed Impressions: Service Date/Time: Thursday, September 08, 2016 08:45 - CONCLUSION: 1. Cholelithiasis with distended gallbladder. However, there are no associated findings present to diagnose acute cholecystitis. If there is persistent clinical concern for acute cholecystitis could evaluate for cystic duct obstruction with hepatobiliary scintigraphy. 2. Hepatomegaly with very heterogeneous echotexture and steatosis. Dejan Allison MD Gall Bladder Ultrasound 08/29/16 Signed Impressions: Service Date/Time: Monday, August 29, 2016 15:21 - CONCLUSION: 1. Hepatomegaly with heterogeneous echotexture throughout the liver. 2. There is a large echogenic area near the neck of the gallbladder suggestive of a stone, but despite its large size, demonstrates no acoustic shadowing in any of the views. Taco Davidson MD CT Angiography 08/15/16 Signed Impressions: Service Date/Time: Monday, August 15, 2016 02:33 - CONCLUSION: 1. No evidence for pulmonary embolism. 2. Multifocal consolidation greatest in the right lower lobe and associated adenopathy. Terry Estrada MD Objective Remarks GENERAL: 56 yo female currently resting in bed on t-piece today SKIN: Warm and dry. Skin is flaky. Rash much improved/less erythematous. Noted stage I to 2 decubitus ulcer\coccyx and back covered with Mepilex HEAD: Normocephalic. EYES: No scleral icterus. No injection or drainage. NECK: Neck is obese. Right subclavian hemodialysis catheters clean dry and intact. Tracheostomy is clean dry and intact CARDIOVASCULAR: RRR. sinus by tele. RESPIRATORY: Diminished breath sounds throughout due to body habitus GASTROINTESTINAL: Abdomen obese, soft, non-tender, hypoactive active bowel sounds. G-tube is clean dry and intact MUSCULOSKELETAL: Crinkling of bilateral lower extremities. 1+ edema BUE. Neuro: Awake, makes eye contact and nods to questions. Currently following commands moving upper and lower extremity spontaneously. A/P Problem List: (1) ARDS (adult respiratory distress syndrome) ICD Code: J80 Status: Acute (2) CHF (congestive heart failure) ICD Code: I50.9 Status: Acute (3) Respiratory failure ICD Code: J96.90 Status: Acute (4) Pneumonia ICD Code: J18.9 Status: Acute Assessment and Plan Neuro/Psych: Acute toxic metabolic encephalopathy Agitated delirium- improving. On no sedation. Monitor neuro status. Fentanyl allergy On Seroquel 75 mg every 8 hours EEG 09/09 moderate to severe encephalopathy good sleep/wake hygeine. melatonin 5mg po qHS for sleep. Pulm: Acute on chronic hypercapnic and hypoxemic respiratory failure ARDS- resolved. Pneumonia community-acquired, now with HCAP with carbapenem-resistant pseudomonas and ESBL Klebsiella VAP. Probable JOE Continue with vent support keep sat >92% Ventilator bundle. , ICU vent bundle Bronchodilator therapy every 4 hours and as needed Pulm has followed- Dr. Beck Gen surgery Dr. Ortega s/p s tracheostomy 09/15 Pulm toilet, trach care CV: Hypertension- improved. Dyslipidemia Elevated troponin - likely strain On Lopressor 50mg Q12 monitor HR and BP keep MAP>65mmHg Echo 08/14 showed EF 65-70% mild AR/TR On Pravachol 20 mg a night for dyslipidemia Renal/: Acute kidney injury - requiring hemodialysis Dr. Tan -nephrology following. Hemodialysis Sunday//Sunday MIKE: ATN from sepsis syndrome and diminished renal perfusion ; also aminoglycoside induced nephrotoxicity likely also contributing; possibly AIN -> per nephrology note Urine eosinophils negative. Renal ultrasound revealed no hydronephrosis Monitor renal function, I/O's, avoid nephrotoxins. s/p HD 10/10 with removal 3.5L GI: Elevated transaminases Cholelithiasis US liver: Fatty liver and cholelithiasis. Repeat 09/08 revealed cholelithiasis with no acute signs of cholecystitis. Recommend a HIDA scan if indicated On TF Nepro's 45 cc an hour and beneprotein 2 packs 3 times a day s/p PEG placement 09/01/[address] Zulfigar Pepcid 10mg BID GI prophylaxis ID: Pseudomonas pneumonia Funguria, Maribell glabrata and parapsilosis. Continue with abx (Zerbaxa). ID is following.check sputum cx Pertinent cultures blood and sputum cx 08/15- NG strep pneumonia and Legionella urinary Ag negative Blood cultures 08/28: NGTD C Diff negative 08/28. Lines changed 08/28. Sputum 08/30 - Pseudomonas Sputum 09/02 PSAE, resistant to carbapenem, intermediate to Levaquin. 09/07 - urine -Maribell Guilliermondii 09/07 - blood cultures 2 - no growth 09/09 - urine -strep viridans, Maribell parapsilosis 09/10 - blood cultures 2 -no growth 09/11 - broch washings -no growth to date 09/12 - urine -Maribell glabrata and parapsilosis 09/16 - blood cultures 2 - pending 09/16 - sputum -no growth 09/16 - urine -Maribell glabrata and parapsilosis 10/02 - blood cultures 2 - staph epi 10/02 - urine - ESBL positive Klebsiella 10/04 - blood cultures 2 - pending 10/05 - blood cultures 2 - pending Zosyn previously discontinued secondary to rash Heme: Normocytic anemia Left IJ/subclavian nonocclusive thrombus 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 Monitor PTT/INR INR: 2.2 today Endo: Diabetes mellitus Hypothyroidism on SSI (medium scale) for glycemic control On Synthroid 200mcg daily. TSH 1.37 GI prophylaxis-Protonix 40mg Q12 DVT - Continue INR:2.2 today, d/c heparin drip Lines: Peripheral IV. - PEG 09/01/16 - Trach 09/15 -Right Permacath placed 09/29 Level 3 Loree Marinelli, daughter (HCP): [phone] Rony Marinelli, significant other: [phone] Problem Qualifiers (1) CHF (congestive heart failure): Qualified Code: I50.9 - Acute congestive heart failure, unspecified congestive heart failure type (2) Respiratory failure: Qualified Code: J96.02 - Acute respiratory failure with hypercapnia (3) Pneumonia: Qualified Code: J18.9 - Pneumonia of both lungs due to infectious organism, unspecified part of lung Ute Santamaria MD October 11, 2016 08:35
[2016-10-11 09:31] LABS: APTT (PATIENT) 51.1 SEC (24.3-30.1)
--- NOTE | 2016-10-11 09:44 | HHI.NPPN ---
Subjective General Problems: Edema, Hypotension, Obesity Renal Failure: Acute Interval History She is sitting up in chair. Has tolerated CPAP, to have T piece placed today. Daughter at bedside. The pt was dialyzed yesterday. (Genny Lowery) Review of Systems General Constitutional: Fever General Remarks no pain (Genny Lowery) Neuro Neuro Remarks generalized muscle fasciculation (Genny Lowery) Objective Data Data 10/10/16 10/11/16 19:00 07:00 Intake Total 661 ml 1219 ml Output Total 3500 ml Balance -2839 ml 1219 ml IV Total 249 ml 462 ml Tube Feeding 252 ml 637 ml Other 160 ml 120 ml Hemodialysis 3500 ml # Bowel Movements 1 Vital Signs Date Time Temp Pulse Resp B/P Pulse Ox O2 Delivery O2 Flow Rate FiO2 10/11/16 07:40 97 40 10/11/16 06:00 98 10/11/16 05:36 96 40 10/11/16 04:00 95 10/11/16 04:00 40 10/11/16 04:00 99.3 95 24 171/89 96 10/11/16 02:00 91 10/11/16 01:10 98 40 10/11/16 00:00 92 10/11/16 00:00 40 10/11/16 00:00 99.4 92 22 129/78 97 10/10/16 22:21 40 10/10/16 22:21 99 40 10/10/16 22:00 99 10/10/16 20:43 95 40 10/10/16 20:00 91 10/10/16 20:00 40 10/10/16 20:00 99.4 91 24 130/78 94 10/10/16 18:00 87 10/10/16 16:00 100.5 97 121/78 96 10/10/16 16:00 97 10/10/16 16:00 40 10/10/16 15:45 95 98 10/10/16 15:36 97 40 10/10/16 15:00 87 117/72 96 10/10/16 14:45 87 96 10/10/16 14:00 101 10/10/16 14:00 101 138/86 98 10/10/16 13:45 93 98 10/10/16 13:00 91 129/78 96 10/10/16 12:45 90 125/76 95 10/10/16 12:45 90 125/76 95 10/10/16 12:31 97 40 10/10/16 12:30 101 126/77 99 10/10/16 12:15 101 127/83 96 10/10/16 12:00 103 10/10/16 12:00 40 10/10/16 12:00 100.2 103 141/80 95 10/10/16 11:58 105 138/84 95 10/10/16 11:45 103 132/85 96 10/10/16 11:30 102 135/89 93 10/10/16 11:15 105 132/90 95 10/10/16 11:00 101 129/83 91 10/10/16 10:45 107 158/89 97 10/10/16 10:34 109 160/91 97 10/10/16 10:30 109 196/79 96 10/10/16 10:16 111 173/87 98 10/10/16 10:00 103 121/83 93 10/10/16 10:00 103 121/83 93 10/10/16 10:00 103 10/10/16 09:45 104 134/76 92 (Genny Lowery) -: 10/11/16 0456 10/11/16 0456 Imaging Last Impressions Chest X-Ray 10/09/16 0600 Signed Impressions: Service Date/Time: Sunday, October 09, 2016 04:49 - CONCLUSION: Mild hazy opacity at the lung bases. This appears improved on the right. Scotty Huynh MD Catheter Placement X-Ray 09/29/16 1223 Signed Impressions: Service Date/Time: Thursday, September 29, 2016 12:31 - CONCLUSION: Vas-Cath to PermCath exchange as detailed above. Taco Haas Jr., MD Renal Ultrasound 09/17/16 0000 Signed Impressions: Service Date/Time: Saturday, September 17, 2016 13:31 - CONCLUSION: Negative renal sonogram. Taco Davidson MD Upper Extremity Ultrasound 09/14/16 0000 Signed Impressions: Service Date/Time: August 08:32 - CONCLUSION: There is thrombus within the left subclavian and internal jugular veins. Danyel Escalante MD Lower Extremity Ultrasound 09/13/16 0000 Signed Impressions: Service Date/Time: Tuesday, September 13, 2016 22:33 - CONCLUSION: Normal examination. Leonides Mason MD Liver Ultrasound 09/08/16 0000 Signed Impressions: Service Date/Time: Thursday, September 08, 2016 08:45 - CONCLUSION: 1. Cholelithiasis with distended gallbladder. However, there are no associated findings present to diagnose acute cholecystitis. If there is persistent clinical concern for acute cholecystitis could evaluate for cystic duct obstruction with hepatobiliary scintigraphy. 2. Hepatomegaly with very heterogeneous echotexture and steatosis. Dejan Allison MD Gall Bladder Ultrasound 08/29/16 0000 Signed Impressions: Service Date/Time: Monday, August 29, 2016 15:21 - CONCLUSION: 1. Hepatomegaly with heterogeneous echotexture throughout the liver. 2. There is a large echogenic area near the neck of the gallbladder suggestive of a stone, but despite its large size, demonstrates no acoustic shadowing in any of the views. Taco Davidson MD CT Angiography 08/15/16 0000 Signed Impressions: Service Date/Time: Monday, August 15, 2016 02:33 - CONCLUSION: 1. No evidence for pulmonary embolism. 2. Multifocal consolidation greatest in the right lower lobe and associated adenopathy. Terry Estrada MD Tubes & Lines: Perma-Cath Tubes & Lines Comment trach, PEG, rectal tube Drip Comment heparin on hold (Genny LoweryP) Physical Exam General Appearance: Well Developed, No Acute Distress, Comfortable, Obese Appearance Remarks awake, nods head and mouths words (Genny Lowery B. SHRUB GROWER) Eyes Eye Exam: Pupils Equal, Pupils Reactive (Genny Lowery B. SHRUB GROWER) Throat Throat Exam: Oral Mucosa [place] & Moist (Genny Lowery BRamos SHRUB GROWER) Neck Neck Exam: Neck Supple Neck Remarks trach (Genny Lowery BRamos SHRUB GROWER) Pulmonary Resp Exam: Crackles, Rhonchi, Sputum, Diminished Breath Sounds Resp Remarks vented lung sounds course throughout (Genny Lowery BRamos SHRUB GROWER) Cardiology CV Exam: Regular, Normal Sinus Rhythm, Good Perfusion (Genny Lowery BRamos SHRUB GROWER) Gastrointestinal/Abdomen GI Exam: Soft, Bowel Sounds Present GI Remarks morbidly obese, + PEG (Genny Lowery) Musculoskeletal MS Exam: Joints Intact, Normal Tone (Genny Lowery) Integumentary Skin Exam: Warm, Dry, Intact (Genny Lowery) Extremeties Extremities Exam: Dependent Edema Extremeties Remarks all four extremities (Genny Lowery) Neurologic Neuro Exam: Alert, Awake, Moving All Extremities Neuro Remarks awake, nods head yes/no to questions muscle fasciculations in all 4 extremities, occasional (Genny Lowery ) VTE Prophylaxis Meds: Heparin (Genny Lowery) Assessment/Plan Discussed Condition With: Patient Assessment Summary: MIKE/Acute Renal Failure, Acute Tubular Necrosis, Fluid/ Volume Overload Electrolyte Assessment: Hyponatremia Problem List: (1) Acute kidney injury Plan: ARF due to ATN HD initiated 09/20; she is dialysis dependent and currently on TTS schedule. She had 3500 ml UF yesterday Using PermCath for dialysis edematous, on Bumex, monitor fluid volume status, fluid removal as tolerated remains anuric, monitor for changes and await signs of renal recovery replace potassium continue Nepro tube feeding begin free water flushes ; continue PhosLo for hyperphosphatemia Avoid nephrotoxic agents. Continue supportive care. (2) ARDS (adult respiratory distress syndrome) Plan: s/p trach placement continue Ventilator support, tolerated CPAP T piece trial later today Tracing Lathe Set Up Operator managing. (3) Anemia Plan: Hb low but stable on heparin and protonix GI has evaluated (4) Pneumonia Plan: intermittent fevers, leukocytosis resolved; recent sputum culture showing Pseudomonas multidrug resistant organisms. ID following. She is now on Zerbaxa (5) Hypothyroidism Plan: on synthroid (6) Morbid obesity (7) DVT (deep venous thrombosis) Plan: in IJ after central line placement (provoked) on heparin bridge to Coumadin , follow INR now therapeutic, heparin on hold, pharmacy managing bridging to Warfarin (Genny Lowery) Plan patient was seen and examined. Remains oliguric. Dialysis tomorrow. Vent weaning as per pulmonary and shank skinner. (Anshu Tan MD) Problem Qualifiers (1) Pneumonia: Qualified Code: J18.9 - Pneumonia of both lungs due to infectious organism, unspecified part of lung Genny Loewry October 11, 2016 09:44 Anshu Tan MD October 11, 2016 20:26
[2016-10-11] MEDS ORDERED: POTASSIUM CHLORIDE 20 MEQ PWD PACKET PEG ONE (09:45)
--- NOTE | 2016-10-11 12:19 | HHI.PR ---
Subjective Remarks Awake and sitting in a chair. On a T Bar 40 %. Much improved Seems more alert and moves arms and legs Objective Vital Signs Date Time Temp Pulse Resp B/P Pulse Ox O2 Delivery O2 Flow Rate FiO2 10/11/16 10:50 95 T-Piece 50 10/11/16 10:00 85 10/11/16 09:08 92 120/89 98 10/11/16 09:00 97 10/11/16 08:00 91 10/11/16 08:00 99.2 91 139/83 98 10/11/16 08:00 40 10/11/16 07:40 97 40 10/11/16 07:00 97 138/75 96 10/11/16 06:00 98 10/11/16 06:00 98 138/95 92 10/11/16 05:36 96 40 10/11/16 05:00 96 144/101 98 10/11/16 04:01 100 171/89 99 10/11/16 04:00 95 10/11/16 04:00 40 10/11/16 04:00 95 96 10/11/16 04:00 99.3 95 24 171/89 96 10/11/16 02:00 91 10/11/16 01:10 98 40 10/11/16 00:00 92 10/11/16 00:00 40 10/11/16 00:00 99.4 92 22 129/78 97 10/10/16 22:21 40 10/10/16 22:21 99 40 10/10/16 22:00 99 10/10/16 20:43 95 40 10/10/16 20:00 91 10/10/16 20:00 40 10/10/16 20:00 99.4 91 24 130/78 94 10/10/16 18:00 87 10/10/16 16:00 100.5 97 121/78 96 10/10/16 16:00 97 10/10/16 16:00 40 10/10/16 15:45 95 98 10/10/16 15:36 97 40 10/10/16 15:00 87 117/72 96 10/10/16 14:45 87 96 10/10/16 14:00 101 10/10/16 14:00 101 138/86 98 10/10/16 13:45 93 98 10/10/16 13:00 91 129/78 96 10/10/16 12:45 90 125/76 95 10/10/16 12:45 90 125/76 95 10/10/16 12:31 97 40 10/10/16 12:30 101 126/77 99 10/10/16 12:15 101 127/83 96 10/10/16 12:00 103 10/10/16 12:00 40 10/10/16 12:00 100.2 103 141/80 95 10/10/16 11:58 105 138/84 95 10/10/16 11:45 103 132/85 96 I/O 10/10/16 10/10/16 10/10/16 10/11/16 10/11/16 10/11/16 07:00 15:00 23:00 07:00 15:00 23:00 Intake Total 490 ml 661 ml 627 ml 592 ml Output Total 3500 ml Balance 490 ml -2839 ml 627 ml 592 ml IV Total 245 ml 249 ml 236 ml 226 ml Tube Feeding 245 ml 252 ml 331 ml 306 ml Other 160 ml 60 ml 60 ml Hemodialysis 3500 ml # Voids 1 # Bowel Movements 1 Result Diagram: 10/11/16 0456 10/11/16 0456 Objective Remarks This is an obese middle-aged white female who is responsive and cooperative HEENT: Head normocephalic. Pupils react. Neck: No bruits, no thyroid enlargement, no lymphadenopathy. Chest: Decreased breath sounds. Occ crackles.at bases. Heart: Heart sounds were regular. S1-S2 no murmur, no S3. Abdomen: Soft, benign. No masses, or tenderness. Bowel sounds are active. Extremities:min edema . Neuro :Moves feet. Awake . Assessment and Plan Assessment and Plan IMPRESSION 1. Acute hypercapnic respiratory failure.Resolving 2. Pulmonary edema. 3. Drug rash 4. Obstructive sleep apnea syndrome 5. Hypertension 6. Hypothyroidism. 7. MIKE Plan : 1. Cont T Bar Trial upto 6 hrs daily. 2. Trach toilet and suctioning. 3. Nebs qid , duoneb. 4. On CPAP trial all day and nite 5. No sedation. 6. PT and OT 7. Tube feeds at 50 CC Abimael Beck MD October 11, 2016 11:38
[2016-10-11] MEDS: WARFARIN SOD 5 MG TAB PO SCH (15:49)
[2016-10-11] MEDS: MELATONIN 5 MG TAB PO SCH (19:43)
[2016-10-11] MEDS: PRAVASTATIN SOD 20 MG TAB PO SCH (19:43)
[2016-10-12] VITALS (17 sets, daily range): BP systolic 140–165; BP diastolic 66–88; PULSE 90–117; RESP 19–22; TEMP 99.1–99.5; O2SAT 94–100
[2016-10-12] MEDS: CHLORHEXIDINE GLUCONATE 2 % 1 PACK (2 CLOTHS) TOP SCH (04:00)
[2016-10-12] MEDS: CEFTOLOZANE-TAZOBACTAM INJ 150 MG in SODIUM CHLORIDE 0.9% INJ 100 ML IV SCH ×3 (04:35→20:47)
[2016-10-12] MEDS: LEVOTHYROXINE SODIUM 200 MCG TAB PO SCH (04:35)
[2016-10-12] MEDS: QUEtiapine FUMARATE 25 MG TAB PO SCH ×3 (04:35→20:22)
[2016-10-12 06:22] LABS: AUTOMATED NEUTROPHIL # 3.7 TH/MM3 (1.8-7.7); BASOPHIL # 0.1 TH/MM3 (0-0.2); BASOPHIL % 1.4 % (0.0-2.0); EOSINOPHIL # 0.6 TH/MM3 (0-0.4); EOSINOPHIL % 9.8 % (0.0-4.0); HEMATOCRIT 25.4 % (35.0-46.0); HEMO FLAGS DIFF FINAL; LYMPH % 18.5 % (9.0-44.0); LYMPHOCYTE # 1.1 TH/MM3 (1.0-4.8); MEAN CELL VOLUME 84.5 FL (80.0-100.0); MEAN CORPUSCULAR HEMOGLOBIN 27.6 PG (27.0-34.0); MEAN CORPUSCULAR HGB CONC 32.7 % (32.0-36.0); MONO % 9.3 % (0.0-8.0); PLATELET COUNT 298 TH/MM3 (150-450); RED CELL DISTRIBUTION WIDTH 18.1 % (11.6-17.2); WHITE BLOOD COUNT 6.1 TH/MM3 (4.0-11.0)
[2016-10-12 06:27] LABS: INTERNATIONAL NORMALIZED RATIO 2.3 RATIO
[2016-10-12 06:53] LABS: BICARBONATE 28.2 MEQ/L (21.0-32.0); POTASSIUM 3.5 MEQ/L (3.5-5.1)
--- NOTE | 2016-10-12 08:59 | HHI.NPPN ---
Subjective General Problems: Edema, Hypotension, Obesity Renal Failure: Acute Interval History Seen during dialysis. She is on CPAP trial this morning. Remains anuric. ( Genny Lowery) Review of Systems General Constitutional: Fever General Remarks no pain (Genny Lowery) Neuro Neuro Remarks generalized muscle fasciculation (Genny Lowery) Objective Data Data 10/11/16 10/12/16 19:00 07:00 Intake Total 360 ml 1399 ml Balance 360 ml 1399 ml IV Total 194 ml Tube Feeding 140 ml 705 ml Other 220 ml 500 ml # Voids 3 # Bowel Movements 2 Vital Signs Date Time Temp Pulse Resp B/P Pulse Ox O2 Delivery O2 Flow Rate FiO2 10/12/16 07:00 97 Mechanical Ventilator 40 10/12/16 06:00 92 10/12/16 04:09 99 40 10/12/16 04:00 99.2 117 22 165/88 97 10/12/16 04:00 117 10/12/16 04:00 40 10/12/16 02:00 106 10/12/16 01:03 94 40 10/12/16 00:00 40 10/12/16 00:00 92 10/12/16 00:00 99.1 92 20 157/76 96 10/11/16 22:10 93 40 10/11/16 22:00 82 10/11/16 20:00 99.0 99 20 158/80 96 10/11/16 20:00 40 10/11/16 20:00 92 10/11/16 19:34 96 40 10/11/16 19:00 99 Mechanical Ventilator 40 10/11/16 18:00 99 10/11/16 17:00 100 130/72 100 10/11/16 16:01 107 146/68 100 10/11/16 16:00 40 10/11/16 16:00 99.0 107 100 10/11/16 16:00 107 10/11/16 15:48 100 40 10/11/16 15:00 99.0 118 154/109 99 10/11/16 15:00 118 154/109 99 10/11/16 14:00 110 165/84 95 10/11/16 14:00 110 10/11/16 13:01 104 182/112 10/11/16 13:00 103 10/11/16 12:00 98 138/99 97 10/11/16 12:00 98 10/11/16 12:00 99.0 98 138/99 97 10/11/16 11:01 94 157/95 10/11/16 11:00 91 10/11/16 10:50 95 T-Piece 50 10/11/16 10:00 85 113/82 100 10/11/16 10:00 85 10/11/16 09:08 92 120/89 98 10/11/16 09:08 92 120/89 98 10/11/16 09:00 97 10/11/16 09:00 97 (Genny Lowery) -: 10/12/16 0537 10/12/16 0524 Tubes & Lines: Perma-Cath Tubes & Lines Comment trach, PEG, rectal tube (Genny Lowery) Physical Exam General Appearance: Well Developed, No Acute Distress, Comfortable, Obese Appearance Remarks awake, nods head and mouths words (Genny Lowery) Eyes Eye Exam: Pupils Equal, Pupils Reactive (Genny Lowery) Throat Throat Exam: Oral Mucosa [place] & Moist (Genny Lowery) Neck Neck Exam: Neck Supple Neck Remarks trach (Genny Lowery) Pulmonary Resp Exam: Crackles, Rhonchi, Sputum, Diminished Breath Sounds Resp Remarks vented lung sounds course throughout (Genny Lowery) Cardiology CV Exam: Regular, Normal Sinus Rhythm, Good Perfusion (Genny Lowery) Gastrointestinal/Abdomen GI Exam: Soft, Bowel Sounds Present GI Remarks morbidly obese, + PEG (Genny Lowery) Musculoskeletal MS Exam: Joints Intact, Normal Tone (Genny Lowery) Integumentary Skin Exam: Warm, Dry, Intact (Genny Lowery) Extremeties Extremities Exam: Dependent Edema Extremeties Remarks all four extremities (Genny Lowery) Neurologic Neuro Exam: Alert, Awake, Moving All Extremities Neuro Remarks awake, nods head yes/no to questions muscle fasciculations in all 4 extremities, occasional (Genny Lowery ) Assessment/Plan Discussed Condition With: Patient Assessment Summary: MIKE/Acute Renal Failure, Acute Tubular Necrosis, Fluid/ Volume Overload Electrolyte Assessment: Hyponatremia Problem List: (1) Acute kidney injury Plan: ARF due to ATN HD initiated 09/20; she is dialysis dependent and currently on TTS schedule. Using PermCath for dialysis seen during dialysis on a 3K, 350 BFR, goal 3L UF remains anuric, stop Bumex, monitor for changes and await signs of renal recovery monitor potassium continue Nepro tube feeding begin free water flushes ; continue PhosLo for hyperphosphatemia Avoid nephrotoxic agents. Continue supportive care. (2) ARDS (adult respiratory distress syndrome) Plan: s/p trach placement continue Ventilator support, on CPAP Press Pipe Inspector managing. (3) Anemia Plan: Hb low but stable on heparin and protonix GI has evaluated (4) Pneumonia Plan: intermittent fevers, leukocytosis resolved; recent sputum culture showing Pseudomonas multidrug resistant organisms. ID following. She is now on Zerbaxa (5) Hypothyroidism Plan: on synthroid (6) Morbid obesity (7) DVT (deep venous thrombosis) Plan: in IJ after central line placement (provoked) on heparin bridge to Coumadin , follow INR now therapeutic, heparin on hold, pharmacy managing bridging to Warfarin (Genny Lowery) Problem List: (1) Acute kidney injury Plan: ARF due to ATN HD initiated 09/20; she is dialysis dependent and currently on TTS schedule. Using PermCath for dialysis seen during dialysis on a 3K, 350 BFR, goal 3L UF remains anuric, stop Bumex, monitor for changes and await signs of renal recovery monitor potassium continue Nepro tube feeding begin free water flushes ; continue PhosLo for hyperphosphatemia Avoid nephrotoxic agents. Continue supportive care. (2) ARDS (adult respiratory distress syndrome) Plan: s/p trach placement continue Ventilator support, on CPAP Press Pipe Inspector managing. (3) Anemia Plan: Hb low but stable on heparin and protonix GI has evaluated (4) Pneumonia Plan: intermittent fevers, leukocytosis resolved; recent sputum culture showing Pseudomonas multidrug resistant organisms. ID following. She is now on Zerbaxa (5) Hypothyroidism Plan: on synthroid (6) Morbid obesity (7) DVT (deep venous thrombosis) Plan: in IJ after central line placement (provoked) on heparin bridge to Coumadin , follow INR now therapeutic, heparin on hold, pharmacy managing bridging to Warfarin Plan patient was seen and examined. Agree with above assessment and plan. Seen during dialysis today. UF goal is 3 liters, on 3K. (Anshu Tan MD) Problem Qualifiers (1) Pneumonia: Qualified Code: J18.9 - Pneumonia of both lungs due to infectious organism, unspecified part of lung Genny Lowery [facility] October 12, 2016 08:59 Anshu Tan MD October 12, 2016 21:26
[2016-10-12] MEDS: BENEPROTEIN POWDER 1 PACK G-TUBE SCH ×3 (09:00→16:58)
[2016-10-12] MEDS: SODIUM CHLORIDE 0.9% FLUSH 10 ML FLUSH IV FLUSH SCH ×2 (09:00→20:23)
[2016-10-12] MEDS: CALCIUM ACETATE 667 MG CAP PO SCH ×3 (09:00→16:57)
[2016-10-12] MEDS: SODIUM CHLORIDE 0.9% FLUSH 10 ML FLUSH IVF SCH (09:00)
--- NOTE | 2016-10-12 10:15 | HHI.IDPN ---
Subjective Subjective Remarks Patient is admitted to ICU with respiratory failure, CHF, pneumonia, probable underlying COPD. Patient was intubated and placed on mechanical ventilation. NOt weaning and had trach done 09/15. Has been having fevers. s/p Rx for PSAE PNA and C glabrata UTI. ID now following for ESBL HCAP. Overnight events reviewed. Fevers defervesced. Oliguric,on HD Tues, Thurs, Sat. Remains on vent. Trach and PEG. No diarrhea Antibiotics Zerbaxa IV Lines Line sites with no e.o infection. Past Medical History reviewed. Allergies: Coded Allergies: Fentanyl (Verified Adverse Reaction, Severe, rash, 09/21/16) *MDRO Multi-Drug Resistant Organism (Verified Adverse Reaction, Unknown, ) ESBL (urine & sputum)-10/02/16 Objective . Vital Signs Date Time Temp Pulse Resp B/P Pulse Ox O2 Delivery O2 Flow Rate FiO2 10/12/16 08:40 96 40 10/12/16 08:00 99 10/12/16 08:00 99.2 99 20 140/66 97 10/12/16 08:00 40 10/12/16 07:00 97 Mechanical Ventilator 40 10/12/16 06:00 92 10/12/16 04:09 99 40 10/12/16 04:00 99.2 117 22 165/88 97 10/12/16 04:00 117 10/12/16 04:00 40 10/12/16 02:00 106 10/12/16 01:03 94 40 10/12/16 00:00 40 10/12/16 00:00 92 10/12/16 00:00 99.1 92 20 157/76 96 10/11/16 22:10 93 40 10/11/16 22:00 82 10/11/16 20:00 99.0 99 20 158/80 96 10/11/16 20:00 40 10/11/16 20:00 92 10/11/16 19:34 96 40 10/11/16 19:00 99 Mechanical Ventilator 40 10/11/16 18:00 99 10/11/16 17:00 100 130/72 100 10/11/16 16:01 107 146/68 100 10/11/16 16:00 40 10/11/16 16:00 99.0 107 100 10/11/16 16:00 107 10/11/16 15:48 100 40 10/11/16 15:00 99.0 118 154/109 99 10/11/16 15:00 118 154/109 99 10/11/16 14:00 110 165/84 95 10/11/16 14:00 110 10/11/16 13:01 104 182/112 10/11/16 13:00 103 10/11/16 12:00 98 138/99 97 10/11/16 12:00 98 10/11/16 12:00 99.0 98 138/99 97 10/11/16 11:01 94 157/95 10/11/16 11:00 91 10/11/16 10:50 95 T-Piece 50 10/11/16 10/11/16 10/12/16 15:00 23:00 07:00 Intake Total 360 ml 792 ml 607 ml Balance 360 ml 792 ml 607 ml IV Total 97 ml 97 ml Tube Feeding 140 ml 495 ml 210 ml Other 220 ml 200 ml 300 ml # Voids 1 2 # Bowel Movements 1 1 . Laboratory Tests Test 10/11/16 10/12/16 04:56 05:37 White Blood Count 6.0 TH/MM3 6.1 TH/MM3 Red Blood Count 2.94 MIL/MM3 3.00 MIL/MM3 Hemoglobin 8.1 GM/DL 8.3 GM/DL Hematocrit 24.4 % 25.4 % Mean Corpuscular Volume 83.2 FL 84.5 FL Mean Corpuscular Hemoglobin 27.6 PG 27.6 PG Mean Corpuscular Hemoglobin 33.2 % 32.7 % Concent Red Cell Distribution Width 18.2 % 18.1 % Platelet Count 330 TH/MM3 298 TH/MM3 Mean Platelet Volume 7.4 FL 7.1 FL Neutrophils (%) (Auto) 62.5 % 61.0 % Lymphocytes (%) (Auto) 16.5 % 18.5 % Monocytes (%) (Auto) 8.6 % 9.3 % Eosinophils (%) (Auto) 10.8 % 9.8 % Basophils (%) (Auto) 1.6 % 1.4 % Neutrophils # (Auto) 3.7 TH/MM3 3.7 TH/MM3 Lymphocytes # (Auto) 1.0 TH/MM3 1.1 TH/MM3 Monocytes # (Auto) 0.5 TH/MM3 0.6 TH/MM3 Eosinophils # (Auto) 0.6 TH/MM3 0.6 TH/MM3 Basophils # (Auto) 0.1 TH/MM3 0.1 TH/MM3 CBC Comment AUTO DIFF DIFF FINAL Differential Total Cells 100 Counted Neutrophils % (Manual) 66 % Band Neutrophils % 5 % Lymphocytes % 16 % Monocytes % 8 % Eosinophils % 4 % Basophils % 1 % Neutrophils # (Manual) 4.3 TH/MM3 Differential Comment FINAL DIFF MANUAL Platelet Estimate NORMAL Platelet Morphology Comment NORMAL Laboratory Tests Test 10/11/16 10/12/16 04:56 05:24 Sodium Level 138 MEQ/L 139 MEQ/L Potassium Level 3.2 MEQ/L 3.5 MEQ/L Chloride Level 97 MEQ/L 99 MEQ/L Carbon Dioxide Level 29.6 MEQ/L 28.2 MEQ/L Anion Gap 11 MEQ/L 12 MEQ/L Blood Urea Nitrogen 44 MG/DL 57 MG/DL Creatinine 2.64 MG/DL 3.03 MG/DL Estimat Glomerular Filtration 19 ML/MIN 16 ML/MIN Rate Random Glucose 138 MG/DL 131 MG/DL Calcium Level 9.4 MG/DL 9.9 MG/DL Phosphorus Level 3.4 MG/DL Imaging Chest X-Ray 09/15/16 0600 Signed Impressions: Service Date/Time: Thursday, September 15, 2016 03:52 - CONCLUSION: Persistent and unchanged bibasilar infiltrates. Taco Haas Jr., MD Chest X-Ray 09/15/16 0000 Signed Impressions: Service Date/Time: Thursday, September 15, 2016 11:00 - CONCLUSION: Placement of tracheostomy tube otherwise not changed. Danyel Escalante MD Liver Ultrasound 09/08/16 0000 Signed Impressions: Service Date/Time: Thursday, September 08, 2016 08:45 - CONCLUSION: 1. Cholelithiasis with distended gallbladder. However, there are no associated findings present to diagnose acute cholecystitis. If there is persistent clinical concern for acute cholecystitis could evaluate for cystic duct obstruction with hepatobiliary scintigraphy. 2. Hepatomegaly with very heterogeneous echotexture and steatosis. Dejan Allison MD Chest X-Ray 09/06/16 0000 Signed Impressions: Service Date/Time: Tuesday, September 06, 2016 11:09 - CONCLUSION: No significant change has occurred. Terry Estrada MD Gall Bladder Ultrasound 4/4/17 0000 Signed Impressions: Service Date/Time: Monday, August 29, 2016 15:21 - CONCLUSION: 1. Hepatomegaly with heterogeneous echotexture throughout the liver. 2. There is a large echogenic area near the neck of the gallbladder suggestive of a stone, but despite its large size, demonstrates no acoustic shadowing in any of the views. Taco Davidson MD CT Angiography 08/15/16 0000 Signed Impressions: Service Date/Time: Monday, August 15, 2016 02:33 - CONCLUSION: 1. No evidence for pulmonary embolism. 2. Multifocal consolidation greatest in the right lower lobe and associated adenopathy. Terry Estrada MD Physical Exam GENERAL: Morbidly obese CF patient, awake, NAD, on the vent SKIN: Has patches of redness on her trunk, and some papules in extremities HEAD: Atraumatic. Normocephalic. No temporal or scalp tenderness. EYES: Pupils equal round and reactive. No scleral icterus. Moist mucosa ENT: No nasal discharge. Dry oral mucosa NECK: Large neck. Supple. Trach in place CARDIOVASCULAR: Regular rate and rhythm RESPIRATORY: Clear to auscultation. Breath sounds equal bilaterally. GASTROINTESTINAL: Abdomen soft, obese, non-tender, nondistended. MUSCULOSKELETAL: Extremities without clubbing, cyanosis. Edema (+) NEUROLOGICAL: eyes open, did not track of focus PIV with no evidence of infection Miller in place with clear urine. Assessment & Plan Remarks Sepsis present on admission. HCAP: ESBL and very MDR PSAE Staph epidermidis: possible contaminant but will repeat HD cath culture. Morbid Obesity (BMI 45.8 kg/m2) Obstructive Sleep Apnea (supposed to be on CPAP at home and home oxygen 2L) Acute respiratory failure vent dependent. Acute metabolic encephalopathy: infection, meds. Thrombosis of cephalic vein. Renal insufficiency, now on HD Recs: Continue Zerbaxa IV (ASP: MDR PSAE resistant to carbapenem, fevers persistent). Tentative stop date early next week based on clinical picture. Follow clinically. If fevers persist or worsening sepsis consider adding Zyvox and repeat rudolph cultures merly sputum. Weaning per CCM Monitor progress Follow oscar D/W RN to cover for me on Sun10/13/2016 and over the weekend. Terri Uribe MD October 12, 2016 10:15
[2016-10-12] MEDS: HEPARIN SODIUM - IV 10,000 UNITS/10 ML VIAL PRN (10:48)
[2016-10-12] MEDS: SODIUM CHLOR 0.9% 1000 ML INJ 1,000 ML IV PRN (10:48)
[2016-10-12] MEDS: GENTAMICIN SULFATE (DIALYSIS USE ONLY) 20 MG/2 ML VIAL IV PRN (10:48)
[2016-10-12] MEDS: DOCUSATE SODIUM 100 MG/10 ML UDC PO SCH ×2 (11:10→20:22)
[2016-10-12] MEDS: METOPROLOL TARTRATE 25 MG TAB G-TUBE SCH ×2 (11:10→20:22)
[2016-10-12] MEDS: ARTIFICIAL TEARS OPTH SOLN 15 ML BTL EACH EYE SCH ×3 (11:11→16:57)
[2016-10-12] MEDS: EUCERIN CREAM 120 GM JAR TOPICAL SCH ×2 (11:11→20:23)
[2016-10-12] MEDS: FAMOTIDINE 40 MG/5 ML LIQ 50 ML BTL NG SCH ×2 (11:12→20:23)
--- NOTE | 2016-10-12 11:42 | HHI.CCPN ---
Subjective Remarks/Hospital Course 56-year-old morbidly obese female brought in the emergency department in respiratory distress. She was intubated by ER attending. She has been sick for about a week with symptoms consistent with UTI. She's had fevers and chills. She's been short of breath. She's had fatigue. She has had a cough and chest pain with coughing. The family reports that she's been delirious for the last 3 days. 08/15 Patient is sedated with Diprivan, Versed, Fentanyl and intubated. CTA chest showed no PE multifocal consolidation greatest in RLL. Tmax 100.6 08/16 Patient is sedated with Diprivan and Fentanyl. Afebrile. CXR this morning showed increase consolidation. 08/17 Patient remains sedated and intubated. T:100.4 On PRVC/AC RR 18, Tv 500, IT :1.0 PEEP:10, FIO2 75% 08/18 Remains sedated and intubated. Afebrile. CXR this morning unchanged bibasilar infiltrates and effusions. 08/19 Patient was placed on rotoprone bed last night for proning sedated with Diprivan, Versed and Fentnayl in addition she is on Nimbex. On PRVC/AC RR 20, TV 400, IT:1.1, PEEP:14 and FIO2 80%. Afebrile. 08/20 Patient remains sedated and intubated. Remains on PRVC/AC mode with improvements in her oxygenation on FIO2 50% from 80% yesterday and PEEP:12. 08/21 Patient remains sedated and intubated. On PRVC/AC mode with RR 20, TV 400, IT:1.1, PEEP: 12 and FIO2 50%. Afebrile. 08/22 No acute events overnight. Remains sedated, intubated and on Nimbex.. T: 99.8. On PRVC mode with PEP: 12, FIO2 50%. CXR from yesterday showed better aeration, RLL infiltrate unchanged. 08/23 Chest x-ray worsening. Methylprednisolone taper to twice a day by pulmonary. The patient's FiO2 was found to be 100% this a.m., will continue to wean. 08/24: 1 desat episode yesterday when supine. still remains prone now. no vasopressors. sedated and paralyzed. 08/25: flolan added yesterday. fio2 down to 60%. remained supine all night. still on neuromuscular blockade. net -500cc/24h. 08/26: good diuresis. remained supine. fio2 70%. weaning flolan. remains with significant respiratory support and high peep despite 6L diuresis overnight. Cr still stable. 08/27: continues with good diuresis. net negative 3L/24h. fio2 down to 55%. flolan off. still high peep. not ready for SBT. more agitated today. Cr remains stable despite aggressive diuresis. 08/28: diuresis continues. -3.3L/24h. spiked fever overnight with a jump in wbc to 16 this AM. fio2 60%, but her pulmonary improvements have plateaued at this point. still on peep 12. 08/29: net -1.7L/24h. Cr starting to rise. still spiking fevers despite vanc/ cefepime added yesterday. wbc continues to rise. clinically appears infected, although unclear source. peep 10, fio2 60%. will likely need trach. 08/30: net +800cc, but Cr downtrending. appears clinically euvolemic. fever curve downtrending. wbc downtrending. on 40% fio2, peep 8 today. still following commands. 08/31: failed SBT after only 45 minutes yesterday. intubated for > 2 weeks at this point. will attempt to pursue trach/peg today. will continue with pulmonary strengthening. daily SBTs. 09/01 CXR showing increasing bibasilar infiltrate. Failed C Pap trial in 5 minutes due to severe tachypnea. PEG tube today. Family has not decided on trach yet 09/02: Patient febrile to 101.1, CXR increased infiltrate Tmax Tmax 101.1. Currently 9.7 left upper lung and right lower lobe. Pancultured. Cefepime added today and one dose of vancomycin. Continues to fail C Pap trial due to tachypnea and respiratory distress 09/03: Remains hypoxemic on 75% oxygen with new pneumonia. Sputum culture 09/02/16 with GNR. Family agreeable for tracheostomy but patient is not stable at this point for trach 09/04: still on 70% fio2. still hypoxic. pneumonia persists. needs trach, but too unstable at this point. 09/05: remains on 75% fio2. pseudomonas sensitivities came back resistant to carbapenems, intermediate to levaquin. still spiking fevers. not clinically improving. wbc remains elevated. 09/06: Remains on 12 of PEEP and FiO2 75%. Zosyn and tobramycin started yesterday. WBC count trending down today 11.5 from 13.1. Remains heavily sedated for ventilator synchrony. MAXIMUM TEMPERATURE 100.3 09/07: Continues to spike fever. CXR unchanged. WBC count improving. PEEP 14. FiO2 60%. Will start IV Bumex 1mg IV q12 09/09: Tolerating tube feeds at goal. Afebrile. No documented bowel movement. Currently sedated on the ventilator 09/10: Tmax 99.7. Currently 99.4. No bowel movement yesterday. None document since 09/04. Arousable on the ventilator 09/11: Tmax 102.6. Currently 100. Positive BM. Arousable on the ventilator. Tolerating tube feeds. Central line changed yesterday. Plan for bronchoscopy at 1 PM. 09/12: Tmax 100.1. Currently afebrile. Follows commands today. Wiggles toes and give thumbs up appropriately. MRI brain canceled. Tolerating tube feeding with positive BM. Tracheostomy currently planned for . 09/13: Tmax 102. Again on sedation [place] commands by wiggling toes bilaterally and giving thumbs up bilaterally appropriate. Tolerating tube feeding with positive BM. Tracheostomy planned for tomorrow with Dr. Ortega. 09/14: Low grade fever. CXR showing more prominent infiltrate on the right lower lobe and left upper lobe. WBC trending up still in normal range. Patient is on 40% FiO2 but continues to fail CPAP due to tachypnea 09/15: Remains intubated sedated, unable to wean off the vent. Plan for tracheostomy today with Dr. Ortega. Continues to have low grade fever. CXR with persistent bibasilar infiltrates 09/16: Tmax 101.1. Currently 100.7. Awake and alert. Following commands. 09/17: Afebrile. Currently on PSV trial. Tolerating tube feeds. One bowel movement. Noted decreased urine output past 48 hours. Diuretics have been discontinued. This a.m. creatinine currently pending. 09/18: Afebrile. Adequate urine output yesterday but decreased 150 past 8 hours. Tolerating tube feeds. One bowel movement. Not tolerating PSV trials today. 09/19: Tmax 100.5. Urine output picking up. Tolerating tube feeds. No bowel movement 48 hours. Not tolerating PSV trials. 09/20: Diffuse drug morbilliform exanthem noted this a.m. Tmax 100.6. Urine output around 20 cc an hour. Not tolerating PSV trials. Possibly new right pleural effusion noted on chest x-ray. Will need hemodialysis 09/21: Tmax 100.6 currently 98.7. -4 L with hemodialysis yesterday and today. FiO2 to 60%. Tolerating tube feeds. Positive BM. Still requiring sedation 09/22: Afebrile. Tolerating tube feeds. Positive BM. 30 g per kilogram per minute of propofol. Tolerated PSV trials 3 hours today 09/23 HD today with 3.5 L removal. Tolerating CPAP for 8 hours, currently 45% with RSBI 45%. 09/24 Called by RN this morning for concern for bloody BMs. Placed heparin and warfarin on hold. Serial Hgb ordered. Hgb 9.3 -->8.6 and hemodynamically unchanged. Started on protonix drip. Heme stool is negative and now RN states she is concerned about the adequacy of specimen, so sending repeat. Had asked GI to see, however further workup will not be indicated if hemoccult is negative. Tolerating PSV 05/06 09/25: heparin restarted. hemocult negative x 2. 09/26: no changes. still failing cpap trials. 09/27: Tmax 101.5. Currently 99.5. Resting on Diprivan drip at 25 mcg/kg/m. Currently tolerating tube feeding.. One bowel movement. 09/28: Hemoglobin trending downward. Transfusing 1 unit PRBCs with hemodialysis today. Currently afebrile. Appears comfortable ventilator 2 bowel movements 09/29 No events overnight. Sedated with Diprivan and on ventilator via trach. T: 99.9 For Perma Cath placement today. s/p HD yesterday with removal 4L and transfusion 1unit PRBC with HD. 09/30: Tmax 100.8. No events overnight. No bowel movement. Tolerating tube feeds. 10/01: Tmax 101.3. Currently resting in bed in no acute distress. Tolerating tube feeds. Chest x-ray revealed atelectasis. -5 L with hemodialysis yesterday. 10/02 Patient remains on ventilator via trach on PRVC/AC with PEEP: 10 and FIO2 50 %. T: 102.1 at 4 am. 10/03 Patient is off sedation on ventilator via trach. Tmax 101.2 last night. For HD today. 10/04: Tmax 101.5. Currently afebrile. Tolerating PSV trial. Hemodialysis - 4.5 L yesterday. Positive BM. New rash. Received chlorhexidine today. 10/05: Tmax 100. Currently 98.9. Positive BM. Tolerating tube feeds. Less erythematous today. Currently on dialysis 10/06: Tmax 99.9. Currently 99.7. Currently on PSV trial 09/12 @ 45%. Tolerating tube feed. Positive bowel movement 10/07: Tmax 99.8. currently psv 10/8/40%. has not been out of bed in weeks due to critical illness. needs to be mobilized. still no placement plan. Subjective 10/08: Tmax 100.4. on t-piece currently. tolerated psv yesterday. have ordered specialty chair and currently awaiting it to arrive. 10/09 Patient remains on ventilator via trach, T:99.9 on no sedation. 10/10 No acute events overnight. For HD today on heparin drip. T:99.8, tolerating tube feeds. 10/11 No events overnight. s/p HD yesterday with removal 3.5L. Tmax 100.5. Tolerating CPAP on PS 10, PEEP: 5 and FIO2 40%. 10/12: Patient receiving hemodialysis today. Tolerating CPAP. Very weakly following commands in all 4 extremities Objective Vital Signs Date Time Temp Pulse Resp B/P Pulse Ox O2 Delivery O2 Flow Rate FiO2 10/12/16 10:00 97 10/12/16 08:40 96 40 10/12/16 08:00 99.2 20 140/66 10/12/16 07:00 Mechanical Ventilator Intake and Output 10/11/16 10/11/16 10/12/16 08:00 16:00 00:00 Intake Total 592 ml 360 ml 792 ml Balance 592 ml 360 ml 792 ml Result Diagram: 10/12/16 0537 10/12/16 0524 Imaging Last Impressions Chest X-Ray 10/09/16 0600 Signed Impressions: Service Date/Time: Sunday, October 09, 2016 04:49 - CONCLUSION: Mild hazy opacity at the lung bases. This appears improved on the right. Scotty Huynh MD Catheter Placement X-Ray 09/29/16 1223 Signed Impressions: Service Date/Time: Thursday, September 29, 2016 12:31 - CONCLUSION: Vas-Cath to PermCath exchange as detailed above. Taco Haas Jr., MD Renal Ultrasound 09/17/16 0000 Signed Impressions: Service Date/Time: Saturday, September 17, 2016 13:31 - CONCLUSION: Negative renal sonogram. Taco Davidson MD Upper Extremity Ultrasound 09/14/16 0000 Signed Impressions: Service Date/Time: August 08:32 - CONCLUSION: There is thrombus within the left subclavian and internal jugular veins. Danyel Escalante MD Lower Extremity Ultrasound 09/13/16 0000 Signed Impressions: Service Date/Time: Tuesday, September 13, 2016 22:33 - CONCLUSION: Normal examination. Leonides Mason MD Liver Ultrasound 09/08/16 0000 Signed Impressions: Service Date/Time: Thursday, September 08, 2016 08:45 - CONCLUSION: 1. Cholelithiasis with distended gallbladder. However, there are no associated findings present to diagnose acute cholecystitis. If there is persistent clinical concern for acute cholecystitis could evaluate for cystic duct obstruction with hepatobiliary scintigraphy. 2. Hepatomegaly with very heterogeneous echotexture and steatosis. Dejan Allison MD Gall Bladder Ultrasound 08/29/16 0000 Signed Impressions: Service Date/Time: Monday, August 29, 2016 15:21 - CONCLUSION: 1. Hepatomegaly with heterogeneous echotexture throughout the liver. 2. There is a large echogenic area near the neck of the gallbladder suggestive of a stone, but despite its large size, demonstrates no acoustic shadowing in any of the views. Taco Davidson MD CT Angiography 08/15/16 0000 Signed Impressions: Service Date/Time: Monday, August 15, 2016 02:33 - CONCLUSION: 1. No evidence for pulmonary embolism. 2. Multifocal consolidation greatest in the right lower lobe and associated adenopathy. Terry Estrada MD Objective Remarks GENERAL: 56 yo female currently resting in bed on CPAP SKIN: Warm and dry. Skin is flaky. Noted stage I to 2 decubitus ulcer\coccyx and back covered with Mepilex HEAD: Normocephalic. EYES: No scleral icterus. No injection or drainage. NECK: Neck is obese. Right subclavian hemodialysis catheters clean dry and intact. Tracheostomy is clean dry and intact CARDIOVASCULAR: RRR. sinus by tele. RESPIRATORY: Diminished breath sounds throughout due to body habitus GASTROINTESTINAL: Abdomen obese, soft, non-tender, hypoactive active bowel sounds. G-tube is clean dry and intact MUSCULOSKELETAL: 1+ edema BUE. Neuro: Awake, makes eye contact and nods to questions. Currently following commands moving upper and lower extremity spontaneously. A/P Problem List: (1) ARDS (adult respiratory distress syndrome) ICD Code: J80 Status: Acute (2) CHF (congestive heart failure) ICD Code: I50.9 Status: Acute (3) Respiratory failure ICD Code: J96.90 Status: Acute (4) Pneumonia ICD Code: J18.9 Status: Acute Assessment and Plan Neuro/Psych: Acute toxic metabolic encephalopathy Agitated delirium- improving. On no sedation. Monitor neuro status. Fentanyl allergy On Seroquel 75 mg every 8 hours EEG 09/09 moderate to severe encephalopathy good sleep/wake hygeine. melatonin 5mg po qHS for sleep. Pulm: Acute on chronic hypercapnic and hypoxemic respiratory failure ARDS- resolved. Pneumonia community-acquired, now with HCAP with carbapenem-resistant pseudomonas and ESBL Klebsiella VAP. Probable JOE Continue with vent support keep sat >90% Ventilator bundle,, ICU vent bundle Bronchodilator therapy every 4 hours and as needed Pulm has followed- Dr. Beck Gen surgery Dr. Ortega s/p s tracheostomy 09/15 Pulm toilet, trach care CV: Hypertension- improved. Dyslipidemia Elevated troponin - likely strain On Lopressor 50mg Q12 monitor HR and BP keep MAP>65mmHg Echo 08/14 showed EF 65-70% mild AR/TR On Pravachol 20 mg a night for dyslipidemia Renal/: Acute kidney injury - requiring hemodialysis Dr. Tan -nephrology following. Hemodialysis Sunday//Sunday MIKE: ATN from sepsis syndrome and diminished renal perfusion; also aminoglycoside induced nephrotoxicity likely also contributing; possibly AIN -> per nephrology note Urine eosinophils negative. Renal ultrasound revealed no hydronephrosis Monitor renal function, I/O's, avoid nephrotoxins. s/p HD 10/10 with removal 3.5L GI: Elevated transaminases Cholelithiasis US liver: Fatty liver and cholelithiasis. Repeat 09/08 revealed cholelithiasis with no acute signs of cholecystitis. Recommend a HIDA scan if indicated On TF Nepro's 45 cc an hour and beneprotein 2 packs 3 times a day s/p PEG placement 09/01/[address] Ritter Pepcid 10mg BID GI prophylaxis ID: Pseudomonas pneumonia Funguria, Maribell glabrata and parapsilosis. Continue with abx (Zerbaxa). ID is following.check sputum cx Pertinent cultures blood and sputum cx 08/15- NG strep pneumonia and Legionella urinary Ag negative Blood cultures 08/28: NGTD C Diff negative 08/28. Lines changed 08/28. Sputum 08/30 - Pseudomonas Sputum 09/02 PSAE, resistant to carbapenem, intermediate to Levaquin. 09/07 - urine -Maribell Guilliermondii 09/07 - blood cultures 2 - no growth 09/09 - urine -strep viridans, Maribell parapsilosis 09/10 - blood cultures 2 -no growth 09/11 - broch washings -no growth to date 09/12 - urine -Maribell glabrata and parapsilosis 09/16 - blood cultures 2 - pending 09/16 - sputum -no growth 09/16 - urine -Maribell glabrata and parapsilosis 10/02 - blood cultures 2 - staph epi 10/02 - urine - ESBL positive Klebsiella 10/04 - blood cultures 2 - pending 10/05 - blood cultures 2 - pending Zosyn previously discontinued secondary to rash Heme: Normocytic anemia Left IJ/subclavian nonocclusive thrombus 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 Monitor PTT/INR INR: 2.2 today Endo: Diabetes mellitus Hypothyroidism on SSI (medium scale) for glycemic control On Synthroid 200mcg daily. TSH 1.37 GI prophylaxis-Protonix 40mg Q12 DVT - Continue Coumadin INR: 2.3 today Lines: Peripheral IV. - PEG 09/01/16 - Trach 09/15 -Right Permacath placed 09/29 Level 3 Loree Marinelli, daughter (HCP): [phone] Rony Marinelli, significant other: [phone] Problem Qualifiers (1) CHF (congestive heart failure): Qualified Code: I50.9 - Acute congestive heart failure, unspecified congestive heart failure type (2) Respiratory failure: Qualified Code: J96.02 - Acute respiratory failure with hypercapnia (3) Pneumonia: Qualified Code: J18.9 - Pneumonia of both lungs due to infectious organism, unspecified part of lung Darian Wylie MD October 12, 2016 11:42
--- NOTE | 2016-10-12 12:41 | HHI.PR ---
Subjective Remarks Doing well and was on CPAP all nite.Was On a T Bar 40 % last PM. Much improved Dialysis done Objective Vital Signs Date Time Temp Pulse Resp B/P Pulse Ox O2 Delivery O2 Flow Rate FiO2 10/12/16 10:00 97 10/12/16 08:40 96 40 10/12/16 08:00 99 10/12/16 08:00 99.2 99 20 140/66 97 10/12/16 08:00 40 10/12/16 07:00 97 Mechanical Ventilator 40 10/12/16 06:00 92 10/12/16 04:09 99 40 10/12/16 04:00 99.2 117 22 165/88 97 10/12/16 04:00 117 10/12/16 04:00 40 10/12/16 02:00 106 10/12/16 01:03 94 40 10/12/16 00:00 40 10/12/16 00:00 92 10/12/16 00:00 99.1 92 20 157/76 96 10/11/16 22:10 93 40 10/11/16 22:00 82 10/11/16 20:00 99.0 99 20 158/80 96 10/11/16 20:00 40 10/11/16 20:00 92 10/11/16 19:34 96 40 10/11/16 19:00 99 Mechanical Ventilator 40 10/11/16 18:00 99 10/11/16 17:00 100 130/72 100 10/11/16 16:01 107 146/68 100 10/11/16 16:00 40 10/11/16 16:00 99.0 107 100 10/11/16 16:00 107 10/11/16 15:48 100 40 10/11/16 15:00 99.0 118 154/109 99 10/11/16 15:00 118 154/109 99 10/11/16 14:00 110 165/84 95 10/11/16 14:00 110 10/11/16 13:01 104 182/112 10/11/16 13:00 103 I/O 10/11/16 10/11/16 10/11/16 10/12/16 10/12/16 10/12/16 07:00 15:00 23:00 07:00 15:00 23:00 Intake Total 592 ml 360 ml 792 ml 607 ml Output Total 3000 ml Balance 592 ml 360 ml 792 ml 607 ml -3000 ml IV Total 226 ml 97 ml 97 ml Tube Feeding 306 ml 140 ml 495 ml 210 ml Other 60 ml 220 ml 200 ml 300 ml Hemodialysis 3000 ml # Voids 1 2 # Bowel Movements 1 1 1 Result Diagram: 10/12/16 0537 10/12/16 0524 Objective Remarks This is an obese middle-aged white female who is responsive and cooperative HEENT: Head normocephalic. Pupils react. Neck: No bruits, no thyroid enlargement, no lymphadenopathy. Chest: Decreased breath sounds. Occ wheeze. Heart: Heart sounds were regular. S1-S2 no murmur, no S3. Abdomen: Soft, benign. No masses, or tenderness. Bowel sounds are active. Extremities:min edema . Neuro :Moves all limbs. Awake . Assessment and Plan Assessment and Plan IMPRESSION 1. Acute hypercapnic respiratory failure.Resolving 2. Pulmonary edema. 3. Drug rash 4. Obstructive sleep apnea syndrome 5. Hypertension 6. Hypothyroidism. 7. MIKE Plan : 1. Cont T Bar 40 % upto 6 hrs daily. 2. Trach toilet and suctioning. 3. Nebs qid , duoneb. 4. On CPAP 5/10 all day and nite 5. No sedation. 6. PT and OT 7. Tube feeds at 50 CC 8. Chest X ray in am Abimael Beck MD October 12, 2016 12:41
--- NOTE | 2016-10-12 14:46 | HHI.HCPN ---
Reason for visit a. To assist with evaluation and management of symptoms including: dyspnea, pain. b. To assist medical decision maker(s) with: better understanding of current medical conditions; weighing benefits/burdens of medical treatment options; making medical treatment decisions. . Subjective/Interval History Patient seen and examined in ICU. Discussed with nurse, Gallo. Opens eyes to voice. She nods yes/ no slightly intermittently. She does not seem to following consistently. On oxygen via t-piece. Tmax 99.5. HR 106. BP stable. Post dialysis with removal of 3 liters today. LBM 10/12/16. CBC and BMP stable. Tolerating tube feeding. No new imaging. No significant clinical change. Per review of block and case maker notes, no discharge plans at this time as there is no payor source. Medicaid and disability pending. . Family/friend interactions Spoke with daughterLoree to provide medical update. She has no questions or concerns. Family desires continued aggressive care. . Advance Directives Living Will: Never completed Health Care Surrogate: Never completed Durable Power of Qualitative Field Project Manager: Never completed Advance Directive Specifics Health Care Surrogate(s): No known written advance directives. Patient is currently incapacitated to make her own health care decisions, uncertain if she will regain capacity. According to [place] statutes, health care proxy decision-making falls to the patient's daughter, Loree. Patient is not legally . . Significant change in goals: Spoke with daughterLoree to provide medical update. She has no questions or concerns. Family desires continued aggressive care. . Objective Vital Signs Date Time Temp Pulse Resp B/P Pulse Ox O2 Delivery O2 Flow Rate FiO2 10/12/16 14:00 101 10/12/16 13:00 96 T-piece 6.00 40 10/12/16 12:00 99.5 93 19 149/70 96 10/12/16 12:00 40 10/12/16 12:00 93 10/12/16 10:00 97 10/12/16 08:40 96 40 10/12/16 08:00 99 10/12/16 08:00 99.2 99 20 140/66 97 10/12/16 08:00 40 10/12/16 07:00 97 Mechanical Ventilator 40 10/12/16 06:00 92 10/12/16 04:09 99 40 10/12/16 04:00 99.2 117 22 165/88 97 10/12/16 04:00 117 10/12/16 04:00 40 10/12/16 02:00 106 10/12/16 01:03 94 40 10/12/16 00:00 40 10/12/16 00:00 92 10/12/16 00:00 99.1 92 20 157/76 96 10/11/16 22:10 93 40 10/11/16 22:00 82 10/11/16 20:00 99.0 99 20 158/80 96 10/11/16 20:00 40 10/11/16 20:00 92 10/11/16 19:34 96 40 10/11/16 19:00 99 Mechanical Ventilator 40 10/11/16 18:00 99 10/11/16 17:00 100 130/72 100 10/11/16 16:01 107 146/68 100 10/11/16 16:00 40 10/11/16 16:00 99.0 107 100 10/11/16 16:00 107 10/11/16 15:48 100 40 10/11/16 15:00 99.0 118 154/109 99 10/11/16 15:00 118 154/109 99 Intake & Output 10/12/16 10/12/16 07:00 19:00 Intake Total 1399 ml 712 ml Output Total 3000 ml Balance 1399 ml -2288 ml IV Total 194 ml 100 ml Tube Feeding 705 ml 372 ml Other 500 ml 240 ml Hemodialysis 3000 ml # Voids 3 1 # Bowel Movements 2 1 Physical Exam CONSTITUTIONAL/GENERAL: This is an adequately nourished, critically ill patient , on oxygen via trach to t-piece. TUBES/LINES/DRAINS: tracheostomy to t-piece, right subclavian perma-cath, PEG tube, PIV, Miller, podus boots, specialty bed. SKIN: severe dry, flaking skin all extremities. ENT: opens eyes to voice. CARDIOVASCULAR: Tachycardic. RESPIRATORY/CHEST: Symmetric, mildly labored, using accessory muscles. diminished bilaterally. GASTROINTESTINAL: Abdomen protuberant, soft, non-tender, nondistended. Bowel sounds active. +BM. GENITOURINARY: Without palpable bladder distension. Miller catheter in place. MUSCULOSKELETAL: Extremities with edema. No mottling or clubbing. NEUROLOGICAL: Opens eyes to voice. Does not consistently track. Seems to nod yes /no to a few questions, difficult to clearly see. PSYCHIATRIC: calm. . Diagnostic Tests Laboratory Laboratory Tests Test 10/09/16 10/10/16 10/10/16 10/11/16 17:40 03:15 05:14 04:56 Activated Partial 62.8 SEC 25.9 SEC 75.1 SEC 105.2 SEC Thromboplast Time (24.3-30.1) (24.3-30.1) (24.3-30.1) (24.3-30.1) White Blood Count 6.7 TH/MM3 6.0 TH/MM3 (4.0-11.0) (4.0-11.0) Red Blood Count 2.81 MIL/MM3 2.94 MIL/MM3 (4.00-5.30) (4.00-5.30) Hemoglobin 8.1 GM/DL 8.1 GM/DL (11.6-15.3) (11.6-15.3) Hematocrit 23.4 % 24.4 % (35.0-46.0) (35.0-46.0) Mean Corpuscular Volume 83.3 FL 83.2 FL (80.0-100.0) (80.0-100.0) Mean Corpuscular Hemoglobin 28.6 PG 27.6 PG (27.0-34.0) (27.0-34.0) Mean Corpuscular Hemoglobin 34.3 % 33.2 % Concent (32.0-36.0) (32.0-36.0) Red Cell Distribution Width 18.0 % 18.2 % (11.6-17.2) (11.6-17.2) Platelet Count 352 TH/MM3 330 TH/MM3 (150-450) (150-450) Mean Platelet Volume 7.0 FL 7.4 FL (7.0-11.0) (7.0-11.0) Neutrophils (%) (Auto) 65.6 % 62.5 % (16.0-70.0) (16.0-70.0) Lymphocytes (%) (Auto) 13.7 % 16.5 % (9.0-44.0) (9.0-44.0) Monocytes (%) (Auto) 7.6 % (0.0-8.0) 8.6 % (0.0-8.0) Eosinophils (%) (Auto) 11.6 % 10.8 % (0.0-4.0) (0.0-4.0) Basophils (%) (Auto) 1.5 % (0.0-2.0) 1.6 % (0.0-2.0) Neutrophils # (Auto) 4.4 TH/MM3 3.7 TH/MM3 (1.8-7.7) (1.8-7.7) Lymphocytes # (Auto) 0.9 TH/MM3 1.0 TH/MM3 (1.0-4.8) (1.0-4.8) Monocytes # (Auto) 0.5 TH/MM3 0.5 TH/MM3 (0-0.9) (0-0.9) Eosinophils # (Auto) 0.8 TH/MM3 0.6 TH/MM3 (0-0.4) (0-0.4) Basophils # (Auto) 0.1 TH/MM3 0.1 TH/MM3 (0-0.2) (0-0.2) CBC Comment AUTO DIFF AUTO DIFF Differential Total Cells 100 100 Counted Neutrophils % (Manual) 66 % (16-70) 66 % (16-70) Band Neutrophils % 10 % (0-6) 5 % (0-6) Lymphocytes % 8 % (9-44) 16 % (9-44) Monocytes % 6 % (0-8) 8 % (0-8) Eosinophils % 8 % (0-4) 4 % (0-4) Basophils % 1 % (0-2) 1 % (0-2) Neutrophils # (Manual) 5.2 TH/MM3 4.3 TH/MM3 (1.8-7.7) (1.8-7.7) Myelocytes 1 % (0-0) Differential Comment FINAL DIFF FINAL DIFF MANUAL MANUAL Platelet Estimate NORMAL NORMAL (NORMAL) (NORMAL) Platelet Morphology Comment NORMAL NORMAL (NORMAL) (NORMAL) Prothrombin Time 20.1 SEC 25.0 SEC (9.8-11.6) (9.8-11.6) Prothromb Time International 1.8 RATIO 2.2 RATIO Ratio Sodium Level 136 MEQ/L 138 MEQ/L (136-145) (136-145) Potassium Level 3.3 MEQ/L 3.2 MEQ/L (3.5-5.1) (3.5-5.1) Chloride Level 94 MEQ/L 97 MEQ/L (98-107) (98-107) Carbon Dioxide Level 27.2 MEQ/L 29.6 MEQ/L (21.0-32.0) (21.0-32.0) Anion Gap 15 MEQ/L (5-15) 11 MEQ/L (5-15) Blood Urea Nitrogen 65 MG/DL (7-18) 44 MG/DL (7-18) Creatinine 3.72 MG/DL 2.64 MG/DL (0.50-1.00) (0.50-1.00) Estimat Glomerular Filtration 13 ML/MIN (>89) 19 ML/MIN (>89) Rate Random Glucose 135 MG/DL 138 MG/DL (74-106) (74-106) Calcium Level 9.2 MG/DL 9.4 MG/DL (8.5-10.1) (8.5-10.1) Phosphorus Level 3.4 MG/DL (2.5-4.9) Test 10/11/16 10/12/16 10/12/16 08:50 05:24 05:37 Activated Partial 51.1 SEC 46.0 SEC Thromboplast Time (24.3-30.1) (24.3-30.1) Prothrombin Time 26.0 SEC (9.8-11.6) Prothromb Time International 2.3 RATIO Ratio Sodium Level 139 MEQ/L (136-145) Potassium Level 3.5 MEQ/L (3.5-5.1) Chloride Level 99 MEQ/L (98-107) Carbon Dioxide Level 28.2 MEQ/L (21.0-32.0) Anion Gap 12 MEQ/L (5-15) Blood Urea Nitrogen 57 MG/DL (7-18) Creatinine 3.03 MG/DL (0.50-1.00) Estimat Glomerular Filtration 16 ML/MIN (>89) Rate Random Glucose 131 MG/DL (74-106) Calcium Level 9.9 MG/DL (8.5-10.1) White Blood Count 6.1 TH/MM3 (4.0-11.0) Red Blood Count 3.00 MIL/MM3 (4.00-5.30) Hemoglobin 8.3 GM/DL (11.6-15.3) Hematocrit 25.4 % (35.0-46.0) Mean Corpuscular Volume 84.5 FL (80.0-100.0) Mean Corpuscular Hemoglobin 27.6 PG (27.0-34.0) Mean Corpuscular Hemoglobin 32.7 % Concent (32.0-36.0) Red Cell Distribution Width 18.1 % (11.6-17.2) Platelet Count 298 TH/MM3 (150-450) Mean Platelet Volume 7.1 FL (7.0-11.0) Neutrophils (%) (Auto) 61.0 % (16.0-70.0) Lymphocytes (%) (Auto) 18.5 % (9.0-44.0) Monocytes (%) (Auto) 9.3 % (0.0-8.0) Eosinophils (%) (Auto) 9.8 % (0.0-4.0) Basophils (%) (Auto) 1.4 % (0.0-2.0) Neutrophils # (Auto) 3.7 TH/MM3 (1.8-7.7) Lymphocytes # (Auto) 1.1 TH/MM3 (1.0-4.8) Monocytes # (Auto) 0.6 TH/MM3 (0-0.9) Eosinophils # (Auto) 0.6 TH/MM3 (0-0.4) Basophils # (Auto) 0.1 TH/MM3 (0-0.2) CBC Comment DIFF FINAL Differential Comment Result Diagram: 10/12/16 0537 10/12/16 0524 Imaging Last Impressions Chest X-Ray 10/09/16 0600 Signed Impressions: Service Date/Time: Sunday, October 09, 2016 04:49 - CONCLUSION: Mild hazy opacity at the lung bases. This appears improved on the right. Scotty Huynh MD Catheter Placement X-Ray 09/29/16 1223 Signed Impressions: Service Date/Time: Thursday, September 29, 2016 12:31 - CONCLUSION: Vas-Cath to PermCath exchange as detailed above. Taco Haas Jr., MD Renal Ultrasound 09/17/16 0000 Signed Impressions: Service Date/Time: Saturday, September 17, 2016 13:31 - CONCLUSION: Negative renal sonogram. Taco Davidson MD Upper Extremity Ultrasound 09/14/16 0000 Signed Impressions: Service Date/Time: August 08:32 - CONCLUSION: There is thrombus within the left subclavian and internal jugular veins. Danyel Escalante MD Lower Extremity Ultrasound 09/13/16 0000 Signed Impressions: Service Date/Time: Tuesday, September 13, 2016 22:33 - CONCLUSION: Normal examination. Leonides Mason MD Liver Ultrasound 09/08/16 0000 Signed Impressions: Service Date/Time: Thursday, September 08, 2016 08:45 - CONCLUSION: 1. Cholelithiasis with distended gallbladder. However, there are no associated findings present to diagnose acute cholecystitis. If there is persistent clinical concern for acute cholecystitis could evaluate for cystic duct obstruction with hepatobiliary scintigraphy. 2. Hepatomegaly with very heterogeneous echotexture and steatosis. Dejan Allison MD Gall Bladder Ultrasound 08/29/16 0000 Signed Impressions: Service Date/Time: Monday, August 29, 2016 15:21 - CONCLUSION: 1. Hepatomegaly with heterogeneous echotexture throughout the liver. 2. There is a large echogenic area near the neck of the gallbladder suggestive of a stone, but despite its large size, demonstrates no acoustic shadowing in any of the views. Taco Davidson MD CT Angiography 08/15/16 0000 Signed Impressions: Service Date/Time: Monday, August 15, 2016 02:33 - CONCLUSION: 1. No evidence for pulmonary embolism. 2. Multifocal consolidation greatest in the right lower lobe and associated adenopathy. Terry Estrada MD . Procedures * 09/01/16 PEG tube placed * 08/28/16 left subclavian central line placed * 08/18/16 right arterial line placed * 08/18/16 right IJ central line placed * 08/14/16 intubation . Assessment and Plan Disease Oriented Problem List: (1) ARDS (adult respiratory distress syndrome) (2) acute hypercapneic and hypoxemic respiratory failure (3) HCAP (healthcare-associated pneumonia) (4) CHF (congestive heart failure) (5) Morbid obesity (6) Hypothyroidism (7) Dyslipidemia Symptom Scale: (1) Pain 0-10 Scale: Unable to quantify Comment: nods yes to pain, unable to nod yes or no to area of pain, unable to further qualify or quantify. . (2) Dyspnea 0-10 Scale: 0 Comment: denies by nodding no slightly. . Pertinent Non-Medical Issues Psychosocial: single, significant other, not legally . Has one daughter. Spiritual: [employer]. Legal: Patient is currently incapacitated to participate in healthcare decision- making. Single, does have a significant other of > 30 years not legally . Has one daughter. According to [place] statutes, health care proxy decision-making falls to jarett Ralph. Ethical issues impacting care: no known concerns at this time. . Important Contacts * Loree Marinelli, daughter (HCP): [phone] * Rony Marinelli, significant other: [phone] . Prognosis In speaking with Dr. Hoffman, he feels patient has pneumonia complicated by worsening COPD, while she will likely have a long road to recovery it is possible she will survive given her young age. She also remains high risk for further setbacks her decline given prolonged ICU stay and prolonged mechanical ventilation. . Code Status: Full Code Plan * Patient is currently incapacitated to participate in healthcare decision- making. Single, does have a significant other, not legally . Has one daughter. According to [place] statutes, health care proxy decision-making falls to jarett Ralph. * FULL CODE. * Discussed with nursing staff. * 10/12/16 - Spoke with Loree denson to provide medical update, family desires continued aggressive care. * SYMPTOMS: dyspnea: on oxygen vis t-piece. Pain: secondary to pneumonia, prolonged hospital/ICU stay and bedbound status. No new medication recommendations at this time. * Palliative care will continue to follow to assist with symptom management and further clarification of treatment goals as needed. . Attestation To help prompt me to consider important information that might be impacting today's encounter and assessment, information from prior notes written by myself or my colleagues may have been "brought forward" into today's note. My signature on this note, however, is an attestation that I personally performed the exam, history, and/or decision-making noted today, and, unless otherwise indicated, the interactions with patient, family, and staff as well as the review of records all occurred today. I also attest that the listed assessment and stated plan reflect my best clinical judgment today based on the combination of historical information, prior notes, and today's exam/ interactions. When time spent is documented, it refers only to time spent today by the signer, or if indicated, combined time spent today by collaborating physician/nurse practitioner. RUMA COOPER October 12, 2016 14:46
[2016-10-12] MEDS: WARFARIN SOD 5 MG TAB PO SCH (16:57)
[2016-10-12] MEDS: MELATONIN 5 MG TAB PO SCH (20:22)
[2016-10-12] MEDS: PRAVASTATIN SOD 20 MG TAB PO SCH (20:22)
[2016-10-13] VITALS (14 sets, daily range): BP systolic 142–176; BP diastolic 66–79; PULSE 89–109; RESP 18–22; TEMP 98.8–99.7; O2SAT 95–100
[2016-10-13] MEDS: CEFTOLOZANE-TAZOBACTAM INJ 150 MG in SODIUM CHLORIDE 0.9% INJ 100 ML IV SCH ×3 (03:31→20:06)
[2016-10-13] MEDS: CHLORHEXIDINE GLUCONATE 2 % 1 PACK (2 CLOTHS) TOP SCH (03:31)
--- NOTE | 2016-10-13 05:20 | RADRPT ---
EXAM DATE/TIME: 10/13/2016 04:12 [facility] COMPARISON: CHEST SINGLE AP, October 09, 2016, 4:49. INDICATIONS : Evaluate for effusion. MEDICAL HISTORY : Congestive heart failure. SURGICAL HISTORY : None. ENCOUNTER: Subsequent ACUITY: 2 months PAIN SCORE: Non-responsive. LOCATION: chest FINDINGS: Dual-lumen central line in the right into the superior vena cava. Tracheostomy unchanged. Patchy bila teral mostly basilar airspace disease again noted. Mild left upper lobe opacity also stable. Small ri ght effusion. CONCLUSION: 1. Scattered bilateral airspace disease similar to prior examination. Probable small right effusion. Rony Malloy MD on October 13, 2016 at 5:16 Board Certified Radiologist. This report was verified electronically.
[2016-10-13] MEDS: LEVOTHYROXINE SODIUM 200 MCG TAB PO SCH (06:28)
[2016-10-13] MEDS: QUEtiapine FUMARATE 25 MG TAB PO SCH ×3 (06:28→20:04)
[2016-10-13 06:49] LABS: APTT (PATIENT) 42.1 SEC (24.3-30.1); INTERNATIONAL NORMALIZED RATIO 1.8 RATIO; PROTHROMBIN TIME - PATIENT 20.4 SEC (9.8-11.6)
[2016-10-13] MEDS: BENEPROTEIN POWDER 1 PACK G-TUBE SCH ×3 (08:15→17:11)
[2016-10-13] MEDS: METOPROLOL TARTRATE 25 MG TAB G-TUBE SCH ×2 (08:15→20:05)
[2016-10-13] MEDS: SODIUM CHLORIDE 0.9% FLUSH 10 ML FLUSH IVF SCH (08:15)
[2016-10-13] MEDS: SODIUM CHLORIDE 0.9% FLUSH 10 ML FLUSH IV FLUSH SCH ×2 (08:15→20:05)
[2016-10-13] MEDS: ARTIFICIAL TEARS OPTH SOLN 15 ML BTL EACH EYE SCH ×3 (08:15→17:11)
[2016-10-13] MEDS: EUCERIN CREAM 120 GM JAR TOPICAL SCH ×2 (08:16→20:06)
[2016-10-13] MEDS: CALCIUM ACETATE 667 MG CAP PO SCH ×3 (08:16→17:11)
[2016-10-13] MEDS: DOCUSATE SODIUM 100 MG/10 ML UDC PO SCH ×2 (08:16→20:06)
[2016-10-13] MEDS: FAMOTIDINE 40 MG/5 ML LIQ 50 ML BTL NG SCH ×2 (08:16→20:06)
--- NOTE | 2016-10-13 09:26 | HHI.NPPN ---
Subjective General Problems: Edema, Hypotension, Obesity Renal Failure: Acute Interval History Remains anuric. Afebrile. No changes in condition. Dialyzed yesterday. ( Genny Lowery) Review of Systems General Constitutional: Fever General Remarks no pain (Genny Lowery) Neuro Neuro Remarks generalized muscle fasciculation (Genny Lowery) Objective Data Data 10/12/16 10/13/16 19:00 07:00 Intake Total 712 ml 1260 ml Output Total 3000 ml Balance -2288 ml 1260 ml IV Total 100 ml 195 ml Tube Feeding 372 ml 665 ml Other 240 ml 400 ml Hemodialysis 3000 ml # Voids 1 4 # Bowel Movements 1 Vital Signs Date Time Temp Pulse Resp B/P Pulse Ox O2 Delivery O2 Flow Rate FiO2 10/13/16 08:12 35 10/13/16 08:11 99 T-piece 35 10/13/16 08:00 104 10/13/16 07:00 100 Mechanical Ventilator 40 10/13/16 06:00 97 10/13/16 04:31 98 40 10/13/16 04:00 99.2 99 22 147/74 100 10/13/16 04:00 99 10/13/16 04:00 40 10/13/16 02:00 97 10/13/16 00:00 40 10/13/16 00:00 99.0 89 20 144/72 100 10/13/16 00:00 89 10/12/16 22:00 90 10/12/16 21:43 100 40 10/12/16 20:00 99.1 104 20 150/85 96 10/12/16 20:00 40 10/12/16 20:00 104 10/12/16 19:00 97 Mechanical Ventilator 40 10/12/16 18:00 100 10/12/16 16:00 99.2 104 22 156/69 100 10/12/16 16:00 40 10/12/16 16:00 105 10/12/16 14:00 101 10/12/16 13:00 96 T-piece 6.00 40 10/12/16 12:00 99.5 93 19 149/70 96 10/12/16 12:00 40 10/12/16 12:00 93 10/12/16 10:00 97 (Genny Lowery) -: 10/12/16 0537 10/12/16 0524 Imaging Last 72 hours Impressions Chest X-Ray 10/13/16 0600 Signed Impressions: Service Date/Time: Thursday, October 13, 2016 04:12 - CONCLUSION: 1. Scattered bilateral airspace disease similar to prior examination. Probable small right effusion. Rony Malloy MD Tubes & Lines: Perma-Cath Tubes & Lines Comment trach, PEG, rectal tube (Genny Lowery) Physical Exam General Appearance: Well Developed, No Acute Distress, Comfortable, Obese Appearance Remarks awake, nods head and mouths words (Genny Lowery) Eyes Eye Exam: Pupils Equal, Pupils Reactive (Genny Lowery) Throat Throat Exam: Oral Mucosa [place] & Moist (Genny Lowery) Neck Neck Exam: Neck Supple Neck Remarks trach (Genny Lowery) Pulmonary Resp Exam: Crackles, Rhonchi, Sputum, Diminished Breath Sounds Resp Remarks vented lung sounds course throughout (Genny Lowery) Cardiology CV Exam: Regular, Normal Sinus Rhythm, Good Perfusion (Genny Lowery) Gastrointestinal/Abdomen GI Exam: Soft, Bowel Sounds Present GI Remarks morbidly obese, + PEG (Genny Lowery) Musculoskeletal MS Exam: Joints Intact, Normal Tone (Genny Lowery) Integumentary Skin Exam: Warm, Dry, Intact (Genny Lowery) Extremeties Extremities Exam: Dependent Edema Extremeties Remarks all four extremities (Genny Lowery) Neurologic Neuro Exam: Alert, Awake, Moving All Extremities Neuro Remarks awake, nods head yes/no to questions muscle fasciculations in all 4 extremities, occasional (Genny Lowery ) Assessment/Plan Discussed Condition With: Patient Assessment Summary: MIKE/Acute Renal Failure, Acute Tubular Necrosis, Fluid/ Volume Overload Electrolyte Assessment: Hyponatremia Problem List: (1) Acute kidney injury Plan: ARF due to ATN HD initiated 09/20; she is dialysis dependent and currently on TTS schedule. Using PermCath for dialysis , 3L UF yesterday remains anuric, await signs of renal recovery monitor potassium continue Nepro tube feeding begin free water flushes ; continue PhosLo for hyperphosphatemia Avoid nephrotoxic agents. Continue supportive care. (2) ARDS (adult respiratory distress syndrome) Plan: s/p trach placement continue Ventilator support, on daily CPAP Community Director managing. (3) Anemia Plan: Hb low but stable on heparin and protonix GI has evaluated (4) Pneumonia Plan: afebrile recently, leukocytosis resolved; recent sputum culture showing Pseudomonas multidrug resistant organisms. ID following. She is now on Zerbaxa (5) Hypothyroidism Plan: on synthroid (6) Morbid obesity (7) DVT (deep venous thrombosis) Plan: in IJ after central line placement (provoked) on Coumadin , follow INR (Genny Lowery) Plan patient was seen and examined. Agree with above assessment and plan. Dialysis tomorrow. (Anshu Tan MD) Problem Qualifiers (1) Pneumonia: Qualified Code: J18.9 - Pneumonia of both lungs due to infectious organism, unspecified part of lung Genny Lowery October 13, 2016 09:26 Anshu Tan MD October 13, 2016 14:19
--- NOTE | 2016-10-13 12:36 | HHI.PR ---
Subjective Remarks Doing well and was on CPAP all nite.Now On a T Bar 40 % today. Much improved Dialysis done . Objective Vital Signs Date Time Temp Pulse Resp B/P Pulse Ox O2 Delivery O2 Flow Rate FiO2 10/13/16 10:00 101 10/13/16 08:12 35 10/13/16 08:11 99 T-piece 35 10/13/16 08:00 40 10/13/16 08:00 104 10/13/16 08:00 98.9 96 22 176/79 100 10/13/16 07:00 100 Mechanical Ventilator 40 10/13/16 06:00 97 10/13/16 04:31 98 40 10/13/16 04:00 99.2 99 22 147/74 100 10/13/16 04:00 99 10/13/16 04:00 40 10/13/16 02:00 97 10/13/16 00:00 40 10/13/16 00:00 99.0 89 20 144/72 100 10/13/16 00:00 89 10/12/16 22:00 90 10/12/16 21:43 100 40 10/12/16 20:00 99.1 104 20 150/85 96 10/12/16 20:00 40 10/12/16 20:00 104 10/12/16 19:00 97 Mechanical Ventilator 40 10/12/16 18:00 100 10/12/16 16:00 99.2 104 22 156/69 100 10/12/16 16:00 40 10/12/16 16:00 105 10/12/16 14:00 101 10/12/16 13:00 96 T-piece 6.00 40 I/O 10/12/16 10/12/16 10/12/16 10/13/16 10/13/16 10/13/16 07:00 15:00 23:00 07:00 15:00 23:00 Intake Total 607 ml 712 ml 620 ml 640 ml Output Total 3000 ml Balance 607 ml -2288 ml 620 ml 640 ml IV Total 97 ml 100 ml 98 ml 97 ml Tube Feeding 210 ml 372 ml 322 ml 343 ml Other 300 ml 240 ml 200 ml 200 ml Hemodialysis 3000 ml # Voids 2 1 1 3 # Bowel Movements 1 1 Result Diagram: 10/12/16 0537 10/12/16 0524 Objective Remarks This is an obese middle-aged white female who is responsive and cooperative HEENT: Head normocephalic.throat clear Neck: No bruits, no thyroid enlargement, no lymphadenopathy. Chest: Decreased breath sounds. Occ wheeze. Heart: Heart sounds were regular. S1-S2 no murmur, no S3. Abdomen: Soft, benign. No masses, or tenderness. Bowel sounds are active. Extremities:min edema . Neuro :Moves all limbs. Awake . Assessment and Plan Assessment and Plan IMPRESSION 1. Acute hypercapnic respiratory failure.Resolving 2. Pulmonary edema. 3. Drug rash 4. Obstructive sleep apnea syndrome 5. Hypertension 6. Hypothyroidism. 7. MIKE Plan : 1. Cont T Bar 40 % upto 12 hrs daily. 2. Trach toilet and suctioning. 3. Nebs qid , duoneb. 4. On CPAP 5/10 all nite 5. Chest X ray on Sunday 6. PT and OT 7. Tube feeds at 50 CC Abimael Beck MD October 13, 2016 12:35
--- NOTE | 2016-10-13 12:46 | HHI.CCPN ---
Subjective Remarks/Hospital Course 56-year-old morbidly obese female brought in the emergency department in respiratory distress. She was intubated by ER attending. She has been sick for about a week with symptoms consistent with UTI. She's had fevers and chills. She's been short of breath. She's had fatigue. She has had a cough and chest pain with coughing. The family reports that she's been delirious for the last 3 days. 08/15 Patient is sedated with Diprivan, Versed, Fentanyl and intubated. CTA chest showed no PE multifocal consolidation greatest in RLL. Tmax 100.6 08/16 Patient is sedated with Diprivan and Fentanyl. Afebrile. CXR this morning showed increase consolidation. 08/17 Patient remains sedated and intubated. T:100.4 On PRVC/AC RR 18, Tv 500, IT :1.0 PEEP:10, FIO2 75% 08/18 Remains sedated and intubated. Afebrile. CXR this morning unchanged bibasilar infiltrates and effusions. 08/19 Patient was placed on rotoprone bed last night for proning sedated with Diprivan, Versed and Fentnayl in addition she is on Nimbex. On PRVC/AC RR 20, TV 400, IT:1.1, PEEP:14 and FIO2 80%. Afebrile. 08/20 Patient remains sedated and intubated. Remains on PRVC/AC mode with improvements in her oxygenation on FIO2 50% from 80% yesterday and PEEP:12. 08/21 Patient remains sedated and intubated. On PRVC/AC mode with RR 20, TV 400, IT:1.1, PEEP: 12 and FIO2 50%. Afebrile. 08/22 No acute events overnight. Remains sedated, intubated and on Nimbex.. T: 99.8. On PRVC mode with PEP: 12, FIO2 50%. CXR from yesterday showed better aeration, RLL infiltrate unchanged. 08/23 Chest x-ray worsening. Methylprednisolone taper to twice a day by pulmonary. The patient's FiO2 was found to be 100% this a.m., will continue to wean. 08/24: 1 desat episode yesterday when supine. still remains prone now. no vasopressors. sedated and paralyzed. 08/25: flolan added yesterday. fio2 down to 60%. remained supine all night. still on neuromuscular blockade. net -500cc/24h. 08/26: good diuresis. remained supine. fio2 70%. weaning flolan. remains with significant respiratory support and high peep despite 6L diuresis overnight. Cr still stable. 08/27: continues with good diuresis. net negative 3L/24h. fio2 down to 55%. flolan off. still high peep. not ready for SBT. more agitated today. Cr remains stable despite aggressive diuresis. 08/28: diuresis continues. -3.3L/24h. spiked fever overnight with a jump in wbc to 16 this AM. fio2 60%, but her pulmonary improvements have plateaued at this point. still on peep 12. 08/29: net -1.7L/24h. Cr starting to rise. still spiking fevers despite vanc/ cefepime added yesterday. wbc continues to rise. clinically appears infected, although unclear source. peep 10, fio2 60%. will likely need trach. 08/30: net +800cc, but Cr downtrending. appears clinically euvolemic. fever curve downtrending. wbc downtrending. on 40% fio2, peep 8 today. still following commands. 08/31: failed SBT after only 45 minutes yesterday. intubated for > 2 weeks at this point. will attempt to pursue trach/peg today. will continue with pulmonary strengthening. daily SBTs. 09/01 CXR showing increasing bibasilar infiltrate. Failed C Pap trial in 5 minutes due to severe tachypnea. PEG tube today. Family has not decided on trach yet 09/02: Patient febrile to 101.1, CXR increased infiltrate Tmax Tmax 101.1. Currently 9.7 left upper lung and right lower lobe. Pancultured. Cefepime added today and one dose of vancomycin. Continues to fail C Pap trial due to tachypnea and respiratory distress 09/03: Remains hypoxemic on 75% oxygen with new pneumonia. Sputum culture 09/02/16 with GNR. Family agreeable for tracheostomy but patient is not stable at this point for trach 09/04: still on 70% fio2. still hypoxic. pneumonia persists. needs trach, but too unstable at this point. 09/05: remains on 75% fio2. pseudomonas sensitivities came back resistant to carbapenems, intermediate to levaquin. still spiking fevers. not clinically improving. wbc remains elevated. 09/06: Remains on 12 of PEEP and FiO2 75%. Zosyn and tobramycin started yesterday. WBC count trending down today 11.5 from 13.1. Remains heavily sedated for ventilator synchrony. MAXIMUM TEMPERATURE 100.3 09/07: Continues to spike fever. CXR unchanged. WBC count improving. PEEP 14. FiO2 60%. Will start IV Bumex 1mg IV q12 09/09: Tolerating tube feeds at goal. Afebrile. No documented bowel movement. Currently sedated on the ventilator 09/10: Tmax 99.7. Currently 99.4. No bowel movement yesterday. None document since 09/04. Arousable on the ventilator 09/11: Tmax 102.6. Currently 100. Positive BM. Arousable on the ventilator. Tolerating tube feeds. Central line changed yesterday. Plan for bronchoscopy at 1 PM. 09/12: Tmax 100.1. Currently afebrile. Follows commands today. Wiggles toes and give thumbs up appropriately. MRI brain canceled. Tolerating tube feeding with positive BM. Tracheostomy currently planned for . 09/13: Tmax 102. Again on sedation [place] commands by wiggling toes bilaterally and giving thumbs up bilaterally appropriate. Tolerating tube feeding with positive BM. Tracheostomy planned for tomorrow with Dr. Ortega. 09/14: Low grade fever. CXR showing more prominent infiltrate on the right lower lobe and left upper lobe. WBC trending up still in normal range. Patient is on 40% FiO2 but continues to fail CPAP due to tachypnea 09/15: Remains intubated sedated, unable to wean off the vent. Plan for tracheostomy today with Dr. Ortega. Continues to have low grade fever. CXR with persistent bibasilar infiltrates 09/16: Tmax 101.1. Currently 100.7. Awake and alert. Following commands. 09/17: Afebrile. Currently on PSV trial. Tolerating tube feeds. One bowel movement. Noted decreased urine output past 48 hours. Diuretics have been discontinued. This a.m. creatinine currently pending. 09/18: Afebrile. Adequate urine output yesterday but decreased 150 past 8 hours. Tolerating tube feeds. One bowel movement. Not tolerating PSV trials today. 09/19: Tmax 100.5. Urine output picking up. Tolerating tube feeds. No bowel movement 48 hours. Not tolerating PSV trials. 09/20: Diffuse drug morbilliform exanthem noted this a.m. Tmax 100.6. Urine output around 20 cc an hour. Not tolerating PSV trials. Possibly new right pleural effusion noted on chest x-ray. Will need hemodialysis 09/21: Tmax 100.6 currently 98.7. -4 L with hemodialysis yesterday and today. FiO2 to 60%. Tolerating tube feeds. Positive BM. Still requiring sedation 09/22: Afebrile. Tolerating tube feeds. Positive BM. 30 g per kilogram per minute of propofol. Tolerated PSV trials 3 hours today 09/23 HD today with 3.5 L removal. Tolerating CPAP for 8 hours, currently 45% with RSBI 45%. 09/24 Called by RN this morning for concern for bloody BMs. Placed heparin and warfarin on hold. Serial Hgb ordered. Hgb 9.3 -->8.6 and hemodynamically unchanged. Started on protonix drip. Heme stool is negative and now RN states she is concerned about the adequacy of specimen, so sending repeat. Had asked GI to see, however further workup will not be indicated if hemoccult is negative. Tolerating PSV 05/06 09/25: heparin restarted. hemocult negative x 2. 09/26: no changes. still failing cpap trials. 09/27: Tmax 101.5. Currently 99.5. Resting on Diprivan drip at 25 mcg/kg/m. Currently tolerating tube feeding.. One bowel movement. 09/28: Hemoglobin trending downward. Transfusing 1 unit PRBCs with hemodialysis today. Currently afebrile. Appears comfortable ventilator 2 bowel movements 09/29 No events overnight. Sedated with Diprivan and on ventilator via trach. T: 99.9 For Perma Cath placement today. s/p HD yesterday with removal 4L and transfusion 1unit PRBC with HD. 09/30: Tmax 100.8. No events overnight. No bowel movement. Tolerating tube feeds. 10/01: Tmax 101.3. Currently resting in bed in no acute distress. Tolerating tube feeds. Chest x-ray revealed atelectasis. -5 L with hemodialysis yesterday. 10/02 Patient remains on ventilator via trach on PRVC/AC with PEEP: 10 and FIO2 50 %. T: 102.1 at 4 am. 10/03 Patient is off sedation on ventilator via trach. Tmax 101.2 last night. For HD today. 10/04: Tmax 101.5. Currently afebrile. Tolerating PSV trial. Hemodialysis - 4.5 L yesterday. Positive BM. New rash. Received chlorhexidine today. 10/05: Tmax 100. Currently 98.9. Positive BM. Tolerating tube feeds. Less erythematous today. Currently on dialysis 10/06: Tmax 99.9. Currently 99.7. Currently on PSV trial 09/12 @ 45%. Tolerating tube feed. Positive bowel movement 10/07: Tmax 99.8. currently psv 10/8/40%. has not been out of bed in weeks due to critical illness. needs to be mobilized. still no placement plan. Subjective 10/08: Tmax 100.4. on t-piece currently. tolerated psv yesterday. have ordered specialty chair and currently awaiting it to arrive. 10/09 Patient remains on ventilator via trach, T:99.9 on no sedation. 10/10 No acute events overnight. For HD today on heparin drip. T:99.8, tolerating tube feeds. 10/11 No events overnight. s/p HD yesterday with removal 3.5L. Tmax 100.5. Tolerating CPAP on PS 10, PEEP: 5 and FIO2 40%. 10/12: Patient receiving hemodialysis today. Tolerating CPAP. Very weakly following commands in all 4 extremities 10/13: 6 hours of T piece yesterday. Currently on TPs and following commands slightly better today. Objective Vital Signs Date Time Temp Pulse Resp B/P Pulse Ox O2 Delivery O2 Flow Rate FiO2 10/13/16 10:00 101 10/13/16 08:12 35 10/13/16 08:11 99 T-piece 10/13/16 08:00 98.9 22 176/79 10/12/16 13:00 6.00 Intake and Output 10/12/16 10/12/16 10/13/16 08:00 16:00 00:00 Intake Total 607 ml 712 ml 620 ml Output Total 3000 ml Balance 607 ml -2288 ml 620 ml Result Diagram: 10/12/16 0537 10/12/16 0524 Imaging Last Impressions Chest X-Ray 10/09/16 0600 Signed Impressions: Service Date/Time: Sunday, October 09, 2016 04:49 - CONCLUSION: Mild hazy opacity at the lung bases. This appears improved on the right. Scotty Huynh MD Catheter Placement X-Ray 09/29/16 1223 Signed Impressions: Service Date/Time: Thursday, September 29, 2016 12:31 - CONCLUSION: Vas-Cath to PermCath exchange as detailed above. Taco Haas Jr., MD Renal Ultrasound 09/17/16 0000 Signed Impressions: Service Date/Time: Saturday, September 17, 2016 13:31 - CONCLUSION: Negative renal sonogram. Taco Davidson MD Upper Extremity Ultrasound 09/14/16 0000 Signed Impressions: Service Date/Time: August 08:32 - CONCLUSION: There is thrombus within the left subclavian and internal jugular veins. Danyel Escalante MD Lower Extremity Ultrasound 09/13/16 0000 Signed Impressions: Service Date/Time: Tuesday, September 13, 2016 22:33 - CONCLUSION: Normal examination. Leonides Mason MD Liver Ultrasound 09/08/16 0000 Signed Impressions: Service Date/Time: Thursday, September 08, 2016 08:45 - CONCLUSION: 1. Cholelithiasis with distended gallbladder. However, there are no associated findings present to diagnose acute cholecystitis. If there is persistent clinical concern for acute cholecystitis could evaluate for cystic duct obstruction with hepatobiliary scintigraphy. 2. Hepatomegaly with very heterogeneous echotexture and steatosis. Dejan Allison MD Gall Bladder Ultrasound 08/29/16 0000 Signed Impressions: Service Date/Time: Monday, August 29, 2016 15:21 - CONCLUSION: 1. Hepatomegaly with heterogeneous echotexture throughout the liver. 2. There is a large echogenic area near the neck of the gallbladder suggestive of a stone, but despite its large size, demonstrates no acoustic shadowing in any of the views. Taco Davidson MD CT Angiography 08/15/16 0000 Signed Impressions: Service Date/Time: Monday, August 15, 2016 02:33 - CONCLUSION: 1. No evidence for pulmonary embolism. 2. Multifocal consolidation greatest in the right lower lobe and associated adenopathy. Terry Estrada MD Objective Remarks GENERAL: 56 yo female currently resting in bed on TP SKIN: Warm and dry. Skin is flaky. Noted stage I to 2 decubitus ulcer\coccyx and back covered with Mepilex HEAD: Normocephalic. EYES: No scleral icterus. No injection or drainage. NECK: Neck is obese. Right subclavian hemodialysis catheters clean dry and intact. Tracheostomy is clean dry and intact CARDIOVASCULAR: RRR. sinus by tele. RESPIRATORY: Diminished breath sounds throughout due to body habitus GASTROINTESTINAL: Abdomen obese, soft, non-tender, hypoactive active bowel sounds. G-tube is clean dry and intact MUSCULOSKELETAL: 1+ edema BUE. Neuro: Awake, makes eye contact and nods to questions. Following commands moving upper and lower extremity spontaneously. A/P Problem List: (1) ARDS (adult respiratory distress syndrome) ICD Code: J80 Status: Acute (2) CHF (congestive heart failure) ICD Code: I50.9 Status: Acute (3) Respiratory failure ICD Code: J96.90 Status: Acute (4) Pneumonia ICD Code: J18.9 Status: Acute Assessment and Plan Neuro/Psych: Acute toxic metabolic encephalopathy Critical care myopathy Agitated delirium- improving. On no sedation. Monitor neuro status. Fentanyl allergy On Seroquel 75 mg every 8 hours melatonin 5mg po qHS for sleep. PT/OT Pulm: Acute on chronic hypercapnic and hypoxemic respiratory failure ARDS- resolved. Pneumonia community-acquired, now with HCAP with carbapenem-resistant pseudomonas and ESBL Klebsiella VAP. Probable JOE Continue with vent support keep sat >90% Ventilator bundle,, ICU vent bundle Bronchodilator therapy every 4 hours and as needed Pulm has followed- Dr. Beck Gen surgery Dr. Ortega s/p s tracheostomy 09/15 Pulm toilet, trach care TP 12 hours and CPAP at night CV: Hypertension Dyslipidemia Elevated troponin - likely strain On Lopressor 50mg Q12 monitor HR and BP keep MAP>65mmHg Echo 08/14 showed EF 65-70% mild AR/TR On Pravachol 20 mg a night for dyslipidemia Renal/: Acute kidney injury - requiring hemodialysis Dr. Tan -nephrology following. Hemodialysis Sunday//Sunday MIKE: ATN from sepsis syndrome and diminished renal perfusion; also aminoglycoside induced nephrotoxicity likely also contributing; possibly AIN -> per nephrology note Urine eosinophils negative. Renal ultrasound revealed no hydronephrosis Monitor renal function, I/O's, avoid nephrotoxins. GI: Elevated transaminases Cholelithiasis US liver: Fatty liver and cholelithiasis. Repeat 09/08 revealed cholelithiasis with no acute signs of cholecystitis. Recommend a HIDA scan if indicated On TF Nepro's 45 cc an hour and beneprotein 2 packs 3 times a day s/p PEG placement 09/01/[address] Stone Ricksd 10mg BID GI prophylaxis ID: Pseudomonas pneumonia Funguria, Maribell glabrata and parapsilosis. Continue with abx (Zerbaxa). ID is following. Pertinent cultures blood and sputum cx 08/15- NG strep pneumonia and Legionella urinary Ag negative Blood cultures 08/28: NGTD C Diff negative 08/28. Lines changed 08/28. Sputum 08/30 - Pseudomonas Sputum 09/02 PSAE, resistant to carbapenem, intermediate to Levaquin. 09/07 - urine -Maribell Guilliermondii 09/07 - blood cultures 2 - no growth 09/09 - urine -strep viridans, Maribell parapsilosis 09/10 - blood cultures 2 -no growth 09/11 - broch washings -no growth to date 09/12 - urine -Maribell glabrata and parapsilosis 09/16 - blood cultures 2 - pending 09/16 - sputum -no growth 09/16 - urine -Maribell glabrata and parapsilosis 10/02 - blood cultures 2 - staph epi 10/02 - urine - ESBL positive Klebsiella 10/04 - blood cultures 2 - pending 10/05 - blood cultures 2 - pending Zosyn previously discontinued secondary to rash Heme: Normocytic anemia Left IJ/subclavian nonocclusive thrombus Peripheral smear with leukoerythroblastosis - likely reactive Monitor CBC, s/p transfusion 1unit PRBC with HD 09/29 INR: 1.8 today, pharmacy dosing Endo: Diabetes mellitus Hypothyroidism on SSI (medium scale) for glycemic control On Synthroid 200mcg daily. TSH 1.37 GI prophylaxis-Protonix 40mg Q12 DVT - Continue Coumadin INR: 1.8 today Lines: Peripheral IV. - PEG 09/01/16 - Trach 09/15 -Right Permacath placed 09/29 Level 3 Loree Marinelli, daughter (HCP): [phone] Rony Marinelli, significant other: [phone] Problem Qualifiers (1) CHF (congestive heart failure): Qualified Code: I50.9 - Acute congestive heart failure, unspecified congestive heart failure type (2) Respiratory failure: Qualified Code: J96.02 - Acute respiratory failure with hypercapnia (3) Pneumonia: Qualified Code: J18.9 - Pneumonia of both lungs due to infectious organism, unspecified part of lung Darian Wylie MD October 13, 2016 12:46
--- NOTE | 2016-10-13 13:53 | RADRPT ---
EXAM DATE/TIME: 10/13/2016 13:10 [facility] COMPARISON: CHEST SINGLE AP, October 13, 2016, 4:12. INDICATIONS : Respiratory disease, short of breath MEDICAL HISTORY : Congestive heart failure. SURGICAL HISTORY : tracheostomy ENCOUNTER: Subsequent ACUITY: 2 months PAIN SCORE: Non-responsive. LOCATION: Bilateral chest FINDINGS: A single view of the chest is somewhat limited due to respiratory motion artifact. I do believe there are persistent scattered areas of airspace disease in the left upper lobe and right base, however. C annot exclude some atelectatic changes in both both hemidiaphragms, however. Persistent blunting of r ight costophrenic angle is characteristic of a small effusion. Right subclavian dialysis type cathete r is stable in position as is the tracheostomy tube. Heart size is borderline prominent. Osseous stru ctures are intact. CONCLUSION: 1. Limited examination due to respiratory motion artifact. I believe there is persistent patchy airsp silviano disease in the left upper lobe and right base. 2. Cannot exclude some atelectatic changes in both lung bases with possible associated persistent rig ht pleural effusion. 3. Stable position of the tracheostomy tube and right subclavian dialysis catheter. Beto Barbosa MD on October 13, 2016 at 13:49 Board Certified Radiologist. This report was verified electronically.
[2016-10-13] MEDS: WARFARIN SOD 5 MG TAB PO SCH (16:10)
[2016-10-13] MEDS: PRAVASTATIN SOD 20 MG TAB PO SCH (20:04)
[2016-10-13] MEDS: MELATONIN 5 MG TAB PO SCH (20:05)
[2016-10-14] VITALS (17 sets, daily range): BP systolic 155–185; BP diastolic 78–92; PULSE 92–127; RESP 18–24; TEMP 98.3–100.5; O2SAT 92–100
[2016-10-14] MEDS: CEFTOLOZANE-TAZOBACTAM INJ 150 MG in SODIUM CHLORIDE 0.9% INJ 100 ML IV SCH ×3 (03:14→20:13)
[2016-10-14] MEDS: CHLORHEXIDINE GLUCONATE 2 % 1 PACK (2 CLOTHS) TOP SCH (03:14)
[2016-10-14] MEDS: hydrALAZINE HCL 20 MG/ML VIAL IV PUSH PRN ×2 (04:40→17:21)
[2016-10-14] MEDS: LEVOTHYROXINE SODIUM 200 MCG TAB PO SCH (04:41)
[2016-10-14] MEDS: QUEtiapine FUMARATE 25 MG TAB PO SCH ×3 (04:41→20:14)
[2016-10-14 05:58] LABS: AUTOMATED NEUTROPHIL # 3.9 TH/MM3 (1.8-7.7); BASOPHIL # 0.1 TH/MM3 (0-0.2); BASOPHIL % 1.8 % (0.0-2.0); EOSINOPHIL # 0.4 TH/MM3 (0-0.4); EOSINOPHIL % 6.1 % (0.0-4.0); HEMATOCRIT 25.4 % (35.0-46.0); HEMO FLAGS DIFF FINAL; LYMPH % 26.8 % (9.0-44.0); LYMPHOCYTE # 1.8 TH/MM3 (1.0-4.8); MEAN CELL VOLUME 82.5 FL (80.0-100.0); MEAN CORPUSCULAR HEMOGLOBIN 27.6 PG (27.0-34.0); MEAN CORPUSCULAR HGB CONC 33.5 % (32.0-36.0); MONO % 9.1 % (0.0-8.0); NEUT % 56.2 % (16.0-70.0); PLATELET COUNT 272 TH/MM3 (150-450); RED BLOOD COUNT 3.08 MIL/MM3 (4.00-5.30); RED CELL DISTRIBUTION WIDTH 17.7 % (11.6-17.2); WHITE BLOOD COUNT 6.9 TH/MM3 (4.0-11.0)
[2016-10-14 06:03] LABS: INTERNATIONAL NORMALIZED RATIO 1.4 RATIO; PROTHROMBIN TIME - PATIENT 16.2 SEC (9.8-11.6)
[2016-10-14 06:08] LABS: APTT (PATIENT) 35.9 SEC (24.3-30.1)
[2016-10-14 06:14] LABS: ALKALINE PHOSPHATASE 91 U/L (45-117); ALT (GPT) 45 U/L (10-53); ANION GAP 13 MEQ/L (5-15); AST (GOT) 44 U/L (15-37); BICARBONATE 29.6 MEQ/L (21.0-32.0); BLOOD UREA NITROGEN 52 MG/DL (7-18); CHLORIDE 98 MEQ/L (98-107); GLOMERULAR FILTRATION RATE 19 ML/MIN (>89); MAGNESIUM 2.3 MG/DL (1.5-2.5); POTASSIUM 3.1 MEQ/L (3.5-5.1); SODIUM (NA) 141 MEQ/L (136-145); TOTAL BILIRUBIN ADULT 0.4 MG/DL (0.2-1.0)
[2016-10-14] MEDS: BENEPROTEIN POWDER 1 PACK G-TUBE SCH ×3 (08:42→17:20)
[2016-10-14] MEDS: ARTIFICIAL TEARS OPTH SOLN 15 ML BTL EACH EYE SCH ×3 (08:42→17:20)
[2016-10-14] MEDS: SODIUM CHLORIDE 0.9% FLUSH 10 ML FLUSH IV FLUSH SCH ×2 (08:43→20:15)
[2016-10-14] MEDS: METOPROLOL TARTRATE 25 MG TAB G-TUBE SCH ×2 (08:43→20:13)
[2016-10-14] MEDS: SODIUM CHLORIDE 0.9% FLUSH 10 ML FLUSH IVF SCH (08:43)
[2016-10-14] MEDS: EUCERIN CREAM 120 GM JAR TOPICAL SCH ×2 (08:44→20:15)
[2016-10-14] MEDS: DOCUSATE SODIUM 100 MG/10 ML UDC PO SCH ×2 (08:44→20:14)
[2016-10-14] MEDS: CALCIUM ACETATE 667 MG CAP PO SCH ×3 (08:44→17:21)
[2016-10-14] MEDS: FAMOTIDINE 40 MG/5 ML LIQ 50 ML BTL NG SCH ×2 (09:00→20:14)
[2016-10-14] MEDS: RESP: ALBUTEROL 2.5 MG/IPRATROPIUM 0.5 MG NEB (PRN) INH (09:46)
--- NOTE | 2016-10-14 11:25 | HHI.NPPN ---
Subjective General Problems: Edema, Hypotension, Obesity Renal Failure: Acute Additional Remarks Patient is now on HD, has mild SOB, have low grade fever last night. Review of Systems General General Remarks no pain Neuro Neuro Remarks generalized muscle fasciculation Objective Data Data 10/13/16 10/14/16 19:00 07:00 Intake Total 797 ml 741 ml Balance 797 ml 741 ml IV Total 200 ml Tube Feeding 317 ml 541 ml Other 480 ml # Voids 2 2 # Bowel Movements 0 1 Vital Signs Date Time Temp Pulse Resp B/P Pulse Ox O2 Delivery O2 Flow Rate FiO2 10/14/16 10:00 121 10/14/16 09:47 100 35 10/14/16 08:00 98.7 106 20 185/79 97 10/14/16 08:00 40 10/14/16 08:00 106 10/14/16 07:00 97 Mechanical Ventilator 40 10/14/16 06:00 112 10/14/16 04:31 99 40 10/14/16 04:00 92 10/14/16 04:00 40 10/14/16 04:00 99.3 92 18 167/81 97 10/14/16 02:00 96 10/14/16 01:34 96 40 10/14/16 00:00 40 10/14/16 00:00 93 10/14/16 00:00 100.0 93 18 159/78 97 10/13/16 22:00 100 40 10/13/16 22:00 96 10/13/16 20:01 100 T-piece 40 10/13/16 20:00 40 10/13/16 20:00 108 10/13/16 20:00 99.4 108 18 169/79 100 10/13/16 19:00 T-Piece 40 10/13/16 16:00 99.7 104 18 142/70 97 10/13/16 16:00 40 10/13/16 16:00 102 10/13/16 14:00 109 151/66 95 10/13/16 14:00 109 10/13/16 12:00 40 10/13/16 12:00 107 10/13/16 12:00 98.8 107 18 170/72 97 -: 10/14/16 0506 10/14/16 0506 Tubes & Lines: Perma-Cath Tubes & Lines Comment trach, PEG, rectal tube Physical Exam General Appearance: No Acute Distress, Comfortable, Obese Eyes Eye Exam: Pupils Equal, Pupils Reactive Throat Throat Exam: Oral Mucosa [place] & Moist Neck Neck Exam: Neck Supple Pulmonary Resp Exam: Crackles, Rhonchi, Sputum, Diminished Breath Sounds Cardiology CV Exam: Regular, Normal Sinus Rhythm, Good Perfusion Gastrointestinal/Abdomen GI Exam: Soft, Bowel Sounds Present Musculoskeletal MS Exam: Joints Intact, Normal Tone Integumentary Skin Exam: Warm, Dry, Intact Extremeties Extremities Exam: Dependent Edema Neurologic Neuro Exam: Alert, Awake, Moving All Extremities Assessment/Plan Discussed Condition With: Patient Assessment Summary: MIKE/Acute Renal Failure, Acute Tubular Necrosis, Fluid/ Volume Overload Electrolyte Assessment: Hyponatremia Problem List: (1) Acute kidney injury Plan: ARF due to ATN HD initiated 09/20; she is dialysis dependent and currently on TTS schedule. Using PermCath for dialysis , 3L UF yesterday remains anuric, await signs of renal recovery monitor potassium continue Nepro tube feeding begin free water flushes ; continue PhosLo for hyperphosphatemia Avoid nephrotoxic agents. HD now, removing 3 liters, BP is stable, continue same. HD as needed. (2) ARDS (adult respiratory distress syndrome) Plan: s/p trach placement continue Ventilator support, on daily CPAP Epidemiology Intern managing. (3) Anemia Plan: Hb low but stable on heparin and protonix GI has evaluated (4) Pneumonia Plan: afebrile recently, leukocytosis resolved; recent sputum culture showing Pseudomonas multidrug resistant organisms. ID following. She is now on Zerbaxa (5) Hypothyroidism Plan: on synthroid (6) Morbid obesity (7) DVT (deep venous thrombosis) Plan: in IJ after central line placement (provoked) on Coumadin , follow INR Plan patient was seen and examined. Agree with above assessment and plan. Dialysis tomorrow. Problem Qualifiers (1) Pneumonia: Qualified Code: J18.9 - Pneumonia of both lungs due to infectious organism, unspecified part of lung Stefanie Dennis MD October 14, 2016 11:25
[2016-10-14] MEDS: GENTAMICIN SULFATE (DIALYSIS USE ONLY) 20 MG/2 ML VIAL IV PRN (12:35)
--- NOTE | 2016-10-14 12:41 | HHI.CCPN ---
Subjective Remarks/Hospital Course 56-year-old morbidly obese female brought in the emergency department in respiratory distress. She was intubated by ER attending. She has been sick for about a week with symptoms consistent with UTI. She's had fevers and chills. She's been short of breath. She's had fatigue. She has had a cough and chest pain with coughing. The family reports that she's been delirious for the last 3 days. 08/15 Patient is sedated with Diprivan, Versed, Fentanyl and intubated. CTA chest showed no PE multifocal consolidation greatest in RLL. Tmax 100.6 08/16 Patient is sedated with Diprivan and Fentanyl. Afebrile. CXR this morning showed increase consolidation. 08/17 Patient remains sedated and intubated. T:100.4 On PRVC/AC RR 18, Tv 500, IT :1.0 PEEP:10, FIO2 75% 08/18 Remains sedated and intubated. Afebrile. CXR this morning unchanged bibasilar infiltrates and effusions. 08/19 Patient was placed on rotoprone bed last night for proning sedated with Diprivan, Versed and Fentnayl in addition she is on Nimbex. On PRVC/AC RR 20, TV 400, IT:1.1, PEEP:14 and FIO2 80%. Afebrile. 08/20 Patient remains sedated and intubated. Remains on PRVC/AC mode with improvements in her oxygenation on FIO2 50% from 80% yesterday and PEEP:12. 08/21 Patient remains sedated and intubated. On PRVC/AC mode with RR 20, TV 400, IT:1.1, PEEP: 12 and FIO2 50%. Afebrile. 08/22 No acute events overnight. Remains sedated, intubated and on Nimbex.. T: 99.8. On PRVC mode with PEP: 12, FIO2 50%. CXR from yesterday showed better aeration, RLL infiltrate unchanged. 08/23 Chest x-ray worsening. Methylprednisolone taper to twice a day by pulmonary. The patient's FiO2 was found to be 100% this a.m., will continue to wean. 08/24: 1 desat episode yesterday when supine. still remains prone now. no vasopressors. sedated and paralyzed. 08/25: flolan added yesterday. fio2 down to 60%. remained supine all night. still on neuromuscular blockade. net -500cc/24h. 08/26: good diuresis. remained supine. fio2 70%. weaning flolan. remains with significant respiratory support and high peep despite 6L diuresis overnight. Cr still stable. 08/27: continues with good diuresis. net negative 3L/24h. fio2 down to 55%. flolan off. still high peep. not ready for SBT. more agitated today. Cr remains stable despite aggressive diuresis. 08/28: diuresis continues. -3.3L/24h. spiked fever overnight with a jump in wbc to 16 this AM. fio2 60%, but her pulmonary improvements have plateaued at this point. still on peep 12. 08/29: net -1.7L/24h. Cr starting to rise. still spiking fevers despite vanc/ cefepime added yesterday. wbc continues to rise. clinically appears infected, although unclear source. peep 10, fio2 60%. will likely need trach. 08/30: net +800cc, but Cr downtrending. appears clinically euvolemic. fever curve downtrending. wbc downtrending. on 40% fio2, peep 8 today. still following commands. 08/31: failed SBT after only 45 minutes yesterday. intubated for > 2 weeks at this point. will attempt to pursue trach/peg today. will continue with pulmonary strengthening. daily SBTs. 09/01 CXR showing increasing bibasilar infiltrate. Failed C Pap trial in 5 minutes due to severe tachypnea. PEG tube today. Family has not decided on trach yet 09/02: Patient febrile to 101.1, CXR increased infiltrate Tmax Tmax 101.1. Currently 9.7 left upper lung and right lower lobe. Pancultured. Cefepime added today and one dose of vancomycin. Continues to fail C Pap trial due to tachypnea and respiratory distress 09/03: Remains hypoxemic on 75% oxygen with new pneumonia. Sputum culture 09/02/16 with GNR. Family agreeable for tracheostomy but patient is not stable at this point for trach 09/04: still on 70% fio2. still hypoxic. pneumonia persists. needs trach, but too unstable at this point. 09/05: remains on 75% fio2. pseudomonas sensitivities came back resistant to carbapenems, intermediate to levaquin. still spiking fevers. not clinically improving. wbc remains elevated. 09/06: Remains on 12 of PEEP and FiO2 75%. Zosyn and tobramycin started yesterday. WBC count trending down today 11.5 from 13.1. Remains heavily sedated for ventilator synchrony. MAXIMUM TEMPERATURE 100.3 09/07: Continues to spike fever. CXR unchanged. WBC count improving. PEEP 14. FiO2 60%. Will start IV Bumex 1mg IV q12 09/09: Tolerating tube feeds at goal. Afebrile. No documented bowel movement. Currently sedated on the ventilator 09/10: Tmax 99.7. Currently 99.4. No bowel movement yesterday. None document since 09/04. Arousable on the ventilator 09/11: Tmax 102.6. Currently 100. Positive BM. Arousable on the ventilator. Tolerating tube feeds. Central line changed yesterday. Plan for bronchoscopy at 1 PM. 09/12: Tmax 100.1. Currently afebrile. Follows commands today. Wiggles toes and give thumbs up appropriately. MRI brain canceled. Tolerating tube feeding with positive BM. Tracheostomy currently planned for . 09/13: Tmax 102. Again on sedation [place] commands by wiggling toes bilaterally and giving thumbs up bilaterally appropriate. Tolerating tube feeding with positive BM. Tracheostomy planned for tomorrow with Dr. Ortega. 09/14: Low grade fever. CXR showing more prominent infiltrate on the right lower lobe and left upper lobe. WBC trending up still in normal range. Patient is on 40% FiO2 but continues to fail CPAP due to tachypnea 09/15: Remains intubated sedated, unable to wean off the vent. Plan for tracheostomy today with Dr. Ortega. Continues to have low grade fever. CXR with persistent bibasilar infiltrates 09/16: Tmax 101.1. Currently 100.7. Awake and alert. Following commands. 09/17: Afebrile. Currently on PSV trial. Tolerating tube feeds. One bowel movement. Noted decreased urine output past 48 hours. Diuretics have been discontinued. This a.m. creatinine currently pending. 09/18: Afebrile. Adequate urine output yesterday but decreased 150 past 8 hours. Tolerating tube feeds. One bowel movement. Not tolerating PSV trials today. 09/19: Tmax 100.5. Urine output picking up. Tolerating tube feeds. No bowel movement 48 hours. Not tolerating PSV trials. 09/20: Diffuse drug morbilliform exanthem noted this a.m. Tmax 100.6. Urine output around 20 cc an hour. Not tolerating PSV trials. Possibly new right pleural effusion noted on chest x-ray. Will need hemodialysis 09/21: Tmax 100.6 currently 98.7. -4 L with hemodialysis yesterday and today. FiO2 to 60%. Tolerating tube feeds. Positive BM. Still requiring sedation 09/22: Afebrile. Tolerating tube feeds. Positive BM. 30 g per kilogram per minute of propofol. Tolerated PSV trials 3 hours today 09/23 HD today with 3.5 L removal. Tolerating CPAP for 8 hours, currently 45% with RSBI 45%. 09/24 Called by RN this morning for concern for bloody BMs. Placed heparin and warfarin on hold. Serial Hgb ordered. Hgb 9.3 -->8.6 and hemodynamically unchanged. Started on protonix drip. Heme stool is negative and now RN states she is concerned about the adequacy of specimen, so sending repeat. Had asked GI to see, however further workup will not be indicated if hemoccult is negative. Tolerating PSV 05/06 09/25: heparin restarted. hemocult negative x 2. 09/26: no changes. still failing cpap trials. 09/27: Tmax 101.5. Currently 99.5. Resting on Diprivan drip at 25 mcg/kg/m. Currently tolerating tube feeding.. One bowel movement. 09/28: Hemoglobin trending downward. Transfusing 1 unit PRBCs with hemodialysis today. Currently afebrile. Appears comfortable ventilator 2 bowel movements 09/29 No events overnight. Sedated with Diprivan and on ventilator via trach. T: 99.9 For Perma Cath placement today. s/p HD yesterday with removal 4L and transfusion 1unit PRBC with HD. 09/30: Tmax 100.8. No events overnight. No bowel movement. Tolerating tube feeds. 10/01: Tmax 101.3. Currently resting in bed in no acute distress. Tolerating tube feeds. Chest x-ray revealed atelectasis. -5 L with hemodialysis yesterday. 10/02 Patient remains on ventilator via trach on PRVC/AC with PEEP: 10 and FIO2 50 %. T: 102.1 at 4 am. 10/03 Patient is off sedation on ventilator via trach. Tmax 101.2 last night. For HD today. 10/04: Tmax 101.5. Currently afebrile. Tolerating PSV trial. Hemodialysis - 4.5 L yesterday. Positive BM. New rash. Received chlorhexidine today. 10/05: Tmax 100. Currently 98.9. Positive BM. Tolerating tube feeds. Less erythematous today. Currently on dialysis 10/06: Tmax 99.9. Currently 99.7. Currently on PSV trial 09/12 @ 45%. Tolerating tube feed. Positive bowel movement 10/07: Tmax 99.8. currently psv 10/8/40%. has not been out of bed in weeks due to critical illness. needs to be mobilized. still no placement plan. Subjective 10/08: Tmax 100.4. on t-piece currently. tolerated psv yesterday. have ordered specialty chair and currently awaiting it to arrive. 10/09 Patient remains on ventilator via trach, T:99.9 on no sedation. 10/10 No acute events overnight. For HD today on heparin drip. T:99.8, tolerating tube feeds. 10/11 No events overnight. s/p HD yesterday with removal 3.5L. Tmax 100.5. Tolerating CPAP on PS 10, PEEP: 5 and FIO2 40%. 10/12: Patient receiving hemodialysis today. Tolerating CPAP. Very weakly following commands in all 4 extremities 10/13: 6 hours of T piece yesterday. Currently on TPs and following commands slightly better today. 10/14: No acute events reported overnight. Remains on CPAP on the vent. Getting hemodialysis now Objective Vital Signs Date Time Temp Pulse Resp B/P Pulse Ox O2 Delivery O2 Flow Rate FiO2 10/14/16 10:00 121 10/14/16 09:47 100 35 10/14/16 08:00 98.7 20 185/79 10/14/16 07:00 Mechanical Ventilator 10/12/16 13:00 6.00 Intake and Output 10/13/16 10/13/16 10/13/16 07:59 15:59 23:59 Intake Total 640 ml 797 ml 346 ml Balance 640 ml 797 ml 346 ml Result Diagram: 10/14/16 0506 10/14/16 0506 Imaging Last Impressions Chest X-Ray 10/09/16 0600 Signed Impressions: Service Date/Time: Sunday, October 09, 2016 04:49 - CONCLUSION: Mild hazy opacity at the lung bases. This appears improved on the right. Scotty Huynh MD Catheter Placement X-Ray 09/29/16 1223 Signed Impressions: Service Date/Time: Thursday, September 29, 2016 12:31 - CONCLUSION: Vas-Cath to PermCath exchange as detailed above. Taco Haas Jr., MD Renal Ultrasound 09/17/16 0000 Signed Impressions: Service Date/Time: Saturday, September 17, 2016 13:31 - CONCLUSION: Negative renal sonogram. Taco Davidson MD Upper Extremity Ultrasound 09/14/16 0000 Signed Impressions: Service Date/Time: August 08:32 - CONCLUSION: There is thrombus within the left subclavian and internal jugular veins. Danyel Escalante MD Lower Extremity Ultrasound 09/13/16 0000 Signed Impressions: Service Date/Time: Tuesday, September 13, 2016 22:33 - CONCLUSION: Normal examination. Leonides Mason MD Liver Ultrasound 09/08/16 0000 Signed Impressions: Service Date/Time: Thursday, September 08, 2016 08:45 - CONCLUSION: 1. Cholelithiasis with distended gallbladder. However, there are no associated findings present to diagnose acute cholecystitis. If there is persistent clinical concern for acute cholecystitis could evaluate for cystic duct obstruction with hepatobiliary scintigraphy. 2. Hepatomegaly with very heterogeneous echotexture and steatosis. Dejan Allison MD Gall Bladder Ultrasound 08/29/16 0000 Signed Impressions: Service Date/Time: Monday, August 29, 2016 15:21 - CONCLUSION: 1. Hepatomegaly with heterogeneous echotexture throughout the liver. 2. There is a large echogenic area near the neck of the gallbladder suggestive of a stone, but despite its large size, demonstrates no acoustic shadowing in any of the views. aTco Davidson MD CT Angiography 08/15/16 0000 Signed Impressions: Service Date/Time: Monday, August 15, 2016 02:33 - CONCLUSION: 1. No evidence for pulmonary embolism. 2. Multifocal consolidation greatest in the right lower lobe and associated adenopathy. Terry Estrada MD Objective Remarks GENERAL: 56 yo female currently resting in bed on CPAP while getting HD SKIN: Warm and dry. Skin is flaky. Noted stage I to 2 decubitus ulcer\coccyx and back covered with Mepilex HEAD: Normocephalic. EYES: No scleral icterus. No injection or drainage. NECK: Neck is obese. Right subclavian hemodialysis catheters clean dry and intact. Tracheostomy is clean dry and intact CARDIOVASCULAR: RRR. sinus by tele. RESPIRATORY: Diminished breath sounds throughout due to body habitus GASTROINTESTINAL: Abdomen obese, soft, non-tender, hypoactive active bowel sounds. G-tube is clean dry and intact MUSCULOSKELETAL: 1+ edema BUE. Neuro: Awake, makes eye contact and nods to questions. Following commands moving upper and lower extremity spontaneously. A/P Problem List: (1) ARDS (adult respiratory distress syndrome) ICD Code: J80 Status: Acute (2) CHF (congestive heart failure) ICD Code: I50.9 Status: Acute (3) Respiratory failure ICD Code: J96.90 Status: Acute (4) Pneumonia ICD Code: J18.9 Status: Acute Assessment and Plan Neuro/Psych: Acute toxic metabolic encephalopathy Critical care myopathy Agitated delirium- improving. No sedation. Monitor neuro status. Fentanyl allergy On Seroquel 75 mg every 8 hours melatonin 5mg po qHS for sleep. PT/OT Pulm: Acute on chronic hypercapnic and hypoxemic respiratory failure ARDS- resolved. Pneumonia community-acquired, now with HCAP with carbapenem-resistant pseudomonas and ESBL Klebsiella VAP. Probable JOE Continue with vent support keep sat >90% Ventilator bundle,, ICU vent bundle Bronchodilator therapy every 4 hours and as needed Pulm has followed- Dr. Beck Gen surgery Dr. Ortega s/p s tracheostomy 09/15 Pulm toilet, trach care TP up to 12 hours and CPAP at night CV: Hypertension Dyslipidemia Elevated troponin - likely strain On Lopressor 50mg Q12 monitor HR and BP keep MAP>65mmHg Echo 08/14 showed EF 65-70% mild AR/TR On Pravachol 20 mg a night for dyslipidemia Renal/: Acute kidney injury - requiring hemodialysis Dr. Tan -nephrology following. Hemodialysis Sunday//Sunday MIKE: ATN from sepsis syndrome and diminished renal perfusion; also aminoglycoside induced nephrotoxicity likely also contributing; possibly AIN -> per nephrology note Urine eosinophils negative. Renal ultrasound revealed no hydronephrosis Monitor renal function, I/O's, avoid nephrotoxins. GI: Elevated transaminases Cholelithiasis US liver: Fatty liver and cholelithiasis. Repeat 09/08 revealed cholelithiasis with no acute signs of cholecystitis. Recommend a HIDA scan if indicated On TF Nepro's 45 cc an hour and beneprotein 2 packs 3 times a day s/p PEG placement 09/01/[address] Stone Orozco 10mg BID GI prophylaxis ID: Pseudomonas pneumonia Funguria, Maribell glabrata and parapsilosis. Continue with abx (Zerbaxa). ID following. Pertinent cultures blood and sputum cx 08/15- NG strep pneumonia and Legionella urinary Ag negative Blood cultures 08/28: NGTD C Diff negative 08/28. Lines changed 08/28. Sputum 08/30 - Pseudomonas Sputum 09/02 PSAE, resistant to carbapenem, intermediate to Levaquin. 09/07 - urine -Maribell Guilliermondii 09/07 - blood cultures 2 - no growth 09/09 - urine -strep viridans, Maribell parapsilosis 09/10 - blood cultures 2 -no growth 09/11 - broch washings -no growth to date 09/12 - urine -Maribell glabrata and parapsilosis 09/16 - blood cultures 2 - pending 09/16 - sputum -no growth 09/16 - urine -Maribell glabrata and parapsilosis 10/02 - blood cultures 2 - staph epi 10/02 - urine - ESBL positive Klebsiella 10/04 - blood cultures 2 - pending 10/05 - blood cultures 2 - pending Zosyn previously discontinued secondary to rash Heme: Normocytic anemia Left IJ/subclavian nonocclusive thrombus Peripheral smear with leukoerythroblastosis - 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 Will bridge with IV Heparin Endo: Diabetes mellitus Hypothyroidism on SSI (medium scale) for glycemic control On Synthroid 200mcg daily. TSH 1.37 GI prophylaxis-Protonix 40mg Q12 DVT - Continue Coumadin INR: 1.4 today, IV heparin until therapeutic on Coumadin Lines: Peripheral IV. - PEG 09/01/16 - Trach 09/15 - Right Permacath placed 09/29 Level 3 Loree Marinelli, daughter (HCP): [phone] Rony Marinelli, significant other: [phone] Problem Qualifiers (1) CHF (congestive heart failure): Qualified Code: I50.9 - Acute congestive heart failure, unspecified congestive heart failure type (2) Respiratory failure: Qualified Code: J96.02 - Acute respiratory failure with hypercapnia (3) Pneumonia: Qualified Code: J18.9 - Pneumonia of both lungs due to infectious organism, unspecified part of lung Darian Wylie MD October 14, 2016 12:41
[2016-10-14 14:38] LABS: HEMATOCRIT 28.2 % (35.0-46.0); MEAN CELL VOLUME 83.4 FL (80.0-100.0); MEAN CORPUSCULAR HEMOGLOBIN 26.8 PG (27.0-34.0); MEAN CORPUSCULAR HGB CONC 32.1 % (32.0-36.0); PLATELET COUNT 245 TH/MM3 (150-450); RED BLOOD COUNT 3.38 MIL/MM3 (4.00-5.30); RED CELL DISTRIBUTION WIDTH 17.7 % (11.6-17.2); REVIEW FLAG FINAL; WHITE BLOOD COUNT 9.9 TH/MM3 (4.0-11.0)
[2016-10-14] MEDS: HEPARIN-D5W 25,000 U/250 ML 250 ML IV SCH (14:45)
[2016-10-14 14:48] LABS: APTT (PATIENT) 35.2 SEC (24.3-30.1); INTERNATIONAL NORMALIZED RATIO 1.4 RATIO; PROTHROMBIN TIME - PATIENT 15.8 SEC (9.8-11.6)
--- NOTE | 2016-10-14 15:59 | HHI.PR ---
Subjective Remarks NO DISTRESS TRACH. IN PLACE Objective GENERAL: SKIN: Warm and dry. HEAD: Atraumatic. Normocephalic. EYES: Pupils equal and round. No scleral icterus. No injection or drainage. ENT: No nasal bleeding or discharge. Mucous membranes pink and moist. NECK: Trachea midline. No JVD. TRACH IN PLACE CARDIOVASCULAR: Regular rate and rhythm. RESPIRATORY: No accessory muscle use. Clear to auscultation. Breath sounds equal bilaterally. GASTROINTESTINAL: Abdomen soft, non-tender, nondistended. Hepatic and splenic margins not palpable. MUSCULOSKELETAL: Extremities without clubbing, cyanosis, or edema. No obvious deformities. NEUROLOGICAL: Awake and alert. No obvious cranial nerve deficits. Motor grossly within normal limits. Five out of 5 muscle strength in the arms and legs. Normal speech. PSYCHIATRIC: Appropriate mood and affect; insight and judgment normal. Vital Signs Date Time Temp Pulse Resp B/P Pulse Ox O2 Delivery O2 Flow Rate FiO2 10/14/16 14:00 126 10/14/16 13:05 92 T-piece 7.00 35 10/14/16 12:00 123 10/14/16 12:00 40 10/14/16 12:00 99.2 123 22 155/92 99 10/14/16 10:00 121 10/14/16 09:47 100 35 10/14/16 08:00 98.7 106 20 185/79 97 10/14/16 08:00 40 10/14/16 08:00 106 10/14/16 07:00 97 Mechanical Ventilator 40 10/14/16 06:00 112 10/14/16 04:31 99 40 10/14/16 04:00 92 10/14/16 04:00 40 10/14/16 04:00 99.3 92 18 167/81 97 10/14/16 02:00 96 10/14/16 01:34 96 40 10/14/16 00:00 40 10/14/16 00:00 93 10/14/16 00:00 100.0 93 18 159/78 97 10/13/16 22:00 100 40 10/13/16 22:00 96 10/13/16 20:01 100 T-piece 40 10/13/16 20:00 40 10/13/16 20:00 108 10/13/16 20:00 99.4 108 18 169/79 100 10/13/16 19:00 T-Piece 40 10/13/16 16:00 99.7 104 18 142/70 97 10/13/16 16:00 40 10/13/16 16:00 102 I/O 10/13/16 10/13/16 10/13/16 10/14/16 10/14/16 10/14/16 06:59 14:59 22:59 06:59 14:59 22:59 Intake Total 640 ml 797 ml 346 ml 395 ml 586 ml Output Total 3500 ml Balance 640 ml 797 ml 346 ml 395 ml -2914 ml IV Total 97 ml 100 ml 100 ml 105 ml Tube Feeding 343 ml 317 ml 246 ml 295 ml 381 ml Tube Irrigant 100 ml Other 200 ml 480 ml Hemodialysis 3500 ml # Voids 3 2 1 1 2 # Bowel Movements 0 1 3 Result Diagram: 10/14/16 1405 10/14/16 1405 Assessment and Plan Assessment and Plan ASS: RESPIRATORY FAILURE CHF S/P TRACHEOSTOMY NO DISTRESS PLAN O2 NEEDED INCREASE ACTIVITY PULM. TOILET Bowen Wiseman MD October 14, 2016 15:58
[2016-10-14] MEDS ORDERED: WARFARIN SOD 10 MG TAB PO ONE (16:00)
[2016-10-14] MEDS: PRAVASTATIN SOD 20 MG TAB PO SCH (20:14)
[2016-10-14] MEDS: MELATONIN 5 MG TAB PO SCH (20:14)
[2016-10-15] VITALS (21 sets, daily range): BP systolic 96–173; BP diastolic 55–87; PULSE 83–129; RESP 19–35; TEMP 99–100.1; O2SAT 22–98
[2016-10-15] MEDS: HEPARIN-D5W 25,000 U/250 ML 250 ML IV SCH ×2 (02:13→15:54)
[2016-10-15] MEDS: CEFTOLOZANE-TAZOBACTAM INJ 150 MG in SODIUM CHLORIDE 0.9% INJ 100 ML IV SCH ×3 (03:11→19:10)
[2016-10-15] MEDS: CHLORHEXIDINE GLUCONATE 2 % 1 PACK (2 CLOTHS) TOP SCH (03:11)
[2016-10-15] MEDS: hydrALAZINE HCL 20 MG/ML VIAL IV PUSH PRN (04:23)
[2016-10-15 04:45] LABS: HEMATOCRIT 26.1 % (35.0-46.0); MEAN CELL VOLUME 82.7 FL (80.0-100.0); MEAN CORPUSCULAR HEMOGLOBIN 27.9 PG (27.0-34.0); MEAN CORPUSCULAR HGB CONC 33.7 % (32.0-36.0); PLATELET COUNT 262 TH/MM3 (150-450); RED BLOOD COUNT 3.16 MIL/MM3 (4.00-5.30); RED CELL DISTRIBUTION WIDTH 17.6 % (11.6-17.2); REVIEW FLAG FINAL; WHITE BLOOD COUNT 8.8 TH/MM3 (4.0-11.0)
[2016-10-15 04:54] LABS: INTERNATIONAL NORMALIZED RATIO 1.4 RATIO; PROTHROMBIN TIME - PATIENT 15.6 SEC (9.8-11.6)
[2016-10-15 05:05] LABS: APTT (PATIENT) 75.9 SEC (24.3-30.1)
[2016-10-15] MEDS: LEVOTHYROXINE SODIUM 200 MCG TAB PO SCH (06:00)
[2016-10-15] MEDS: QUEtiapine FUMARATE 25 MG TAB PO SCH ×3 (06:00→21:07)
[2016-10-15] MEDS: METOPROLOL TARTRATE 25 MG TAB G-TUBE SCH ×2 (08:14→19:48)
[2016-10-15] MEDS: SODIUM CHLORIDE 0.9% FLUSH 10 ML FLUSH IV FLUSH SCH ×2 (08:14→19:49)
[2016-10-15] MEDS: ARTIFICIAL TEARS OPTH SOLN 15 ML BTL EACH EYE SCH ×3 (08:14→17:06)
[2016-10-15] MEDS: BENEPROTEIN POWDER 1 PACK G-TUBE SCH ×3 (08:14→17:06)
[2016-10-15] MEDS: SODIUM CHLORIDE 0.9% FLUSH 10 ML FLUSH IVF SCH (08:15)
[2016-10-15] MEDS: EUCERIN CREAM 120 GM JAR TOPICAL SCH ×2 (08:15→19:49)
[2016-10-15] MEDS: CALCIUM ACETATE 667 MG CAP PO SCH ×3 (08:15→17:05)
[2016-10-15] MEDS: DOCUSATE SODIUM 100 MG/10 ML UDC PO SCH ×2 (08:15→19:49)
[2016-10-15] MEDS: FAMOTIDINE 40 MG/5 ML LIQ 50 ML BTL NG SCH ×2 (08:15→19:49)
--- NOTE | 2016-10-15 10:26 | RADRPT ---
EXAM DATE/TIME: 10/15/2016 09:55 [facility] COMPARISON: CHEST SINGLE AP, October 13, 2016, 13:10. INDICATIONS : Respiratory disease MEDICAL HISTORY : Congestive heart failure. SURGICAL HISTORY : tracheostomy ENCOUNTER: Subsequent ACUITY: 2 months PAIN SCORE: Non-responsive. LOCATION: chest FINDINGS: Tracheostomy tube in satisfactory position. Dialysis catheter is again seen. There is mild interstiti al prominence at the bases, patchy right basilar airspace disease and a small right effusion suspecte d. CONCLUSION: No significant change has occurred. Terry Estrada MD on October 15, 2016 at 10:25 Board Certified Radiologist. This report was verified electronically.
[2016-10-15] MEDS ORDERED: LORazepam 2 MG/ML VIAL ONE (11:14)
--- NOTE | 2016-10-15 11:33 | HHI.CCPN ---
Subjective Remarks/Hospital Course 56-year-old morbidly obese female brought in the emergency department in respiratory distress. She was intubated by ER attending. She has been sick for about a week with symptoms consistent with UTI. She's had fevers and chills. She's been short of breath. She's had fatigue. She has had a cough and chest pain with coughing. The family reports that she's been delirious for the last 3 days. 08/15 Patient is sedated with Diprivan, Versed, Fentanyl and intubated. CTA chest showed no PE multifocal consolidation greatest in RLL. Tmax 100.6 08/16 Patient is sedated with Diprivan and Fentanyl. Afebrile. CXR this morning showed increase consolidation. 08/17 Patient remains sedated and intubated. T:100.4 On PRVC/AC RR 18, Tv 500, IT :1.0 PEEP:10, FIO2 75% 08/18 Remains sedated and intubated. Afebrile. CXR this morning unchanged bibasilar infiltrates and effusions. 08/19 Patient was placed on rotoprone bed last night for proning sedated with Diprivan, Versed and Fentnayl in addition she is on Nimbex. On PRVC/AC RR 20, TV 400, IT:1.1, PEEP:14 and FIO2 80%. Afebrile. 08/20 Patient remains sedated and intubated. Remains on PRVC/AC mode with improvements in her oxygenation on FIO2 50% from 80% yesterday and PEEP:12. 08/21 Patient remains sedated and intubated. On PRVC/AC mode with RR 20, TV 400, IT:1.1, PEEP: 12 and FIO2 50%. Afebrile. 08/22 No acute events overnight. Remains sedated, intubated and on Nimbex.. T: 99.8. On PRVC mode with PEP: 12, FIO2 50%. CXR from yesterday showed better aeration, RLL infiltrate unchanged. 08/23 Chest x-ray worsening. Methylprednisolone taper to twice a day by pulmonary. The patient's FiO2 was found to be 100% this a.m., will continue to wean. 08/24: 1 desat episode yesterday when supine. still remains prone now. no vasopressors. sedated and paralyzed. 08/25: flolan added yesterday. fio2 down to 60%. remained supine all night. still on neuromuscular blockade. net -500cc/24h. 08/26: good diuresis. remained supine. fio2 70%. weaning flolan. remains with significant respiratory support and high peep despite 6L diuresis overnight. Cr still stable. 08/27: continues with good diuresis. net negative 3L/24h. fio2 down to 55%. flolan off. still high peep. not ready for SBT. more agitated today. Cr remains stable despite aggressive diuresis. 08/28: diuresis continues. -3.3L/24h. spiked fever overnight with a jump in wbc to 16 this AM. fio2 60%, but her pulmonary improvements have plateaued at this point. still on peep 12. 08/29: net -1.7L/24h. Cr starting to rise. still spiking fevers despite vanc/ cefepime added yesterday. wbc continues to rise. clinically appears infected, although unclear source. peep 10, fio2 60%. will likely need trach. 08/30: net +800cc, but Cr downtrending. appears clinically euvolemic. fever curve downtrending. wbc downtrending. on 40% fio2, peep 8 today. still following commands. 08/31: failed SBT after only 45 minutes yesterday. intubated for > 2 weeks at this point. will attempt to pursue trach/peg today. will continue with pulmonary strengthening. daily SBTs. 09/01 CXR showing increasing bibasilar infiltrate. Failed C Pap trial in 5 minutes due to severe tachypnea. PEG tube today. Family has not decided on trach yet 09/02: Patient febrile to 101.1, CXR increased infiltrate Tmax Tmax 101.1. Currently 9.7 left upper lung and right lower lobe. Pancultured. Cefepime added today and one dose of vancomycin. Continues to fail C Pap trial due to tachypnea and respiratory distress 09/03: Remains hypoxemic on 75% oxygen with new pneumonia. Sputum culture 09/02/16 with GNR. Family agreeable for tracheostomy but patient is not stable at this point for trach 09/04: still on 70% fio2. still hypoxic. pneumonia persists. needs trach, but too unstable at this point. 09/05: remains on 75% fio2. pseudomonas sensitivities came back resistant to carbapenems, intermediate to levaquin. still spiking fevers. not clinically improving. wbc remains elevated. 09/06: Remains on 12 of PEEP and FiO2 75%. Zosyn and tobramycin started yesterday. WBC count trending down today 11.5 from 13.1. Remains heavily sedated for ventilator synchrony. MAXIMUM TEMPERATURE 100.3 09/07: Continues to spike fever. CXR unchanged. WBC count improving. PEEP 14. FiO2 60%. Will start IV Bumex 1mg IV q12 09/09: Tolerating tube feeds at goal. Afebrile. No documented bowel movement. Currently sedated on the ventilator 09/10: Tmax 99.7. Currently 99.4. No bowel movement yesterday. None document since 09/04. Arousable on the ventilator 09/11: Tmax 102.6. Currently 100. Positive BM. Arousable on the ventilator. Tolerating tube feeds. Central line changed yesterday. Plan for bronchoscopy at 1 PM. 09/12: Tmax 100.1. Currently afebrile. Follows commands today. Wiggles toes and give thumbs up appropriately. MRI brain canceled. Tolerating tube feeding with positive BM. Tracheostomy currently planned for . 09/13: Tmax 102. Again on sedation [place] commands by wiggling toes bilaterally and giving thumbs up bilaterally appropriate. Tolerating tube feeding with positive BM. Tracheostomy planned for tomorrow with Dr. Ortega. 09/14: Low grade fever. CXR showing more prominent infiltrate on the right lower lobe and left upper lobe. WBC trending up still in normal range. Patient is on 40% FiO2 but continues to fail CPAP due to tachypnea 09/15: Remains intubated sedated, unable to wean off the vent. Plan for tracheostomy today with Dr. Ortega. Continues to have low grade fever. CXR with persistent bibasilar infiltrates 09/16: Tmax 101.1. Currently 100.7. Awake and alert. Following commands. 09/17: Afebrile. Currently on PSV trial. Tolerating tube feeds. One bowel movement. Noted decreased urine output past 48 hours. Diuretics have been discontinued. This a.m. creatinine currently pending. 09/18: Afebrile. Adequate urine output yesterday but decreased 150 past 8 hours. Tolerating tube feeds. One bowel movement. Not tolerating PSV trials today. 09/19: Tmax 100.5. Urine output picking up. Tolerating tube feeds. No bowel movement 48 hours. Not tolerating PSV trials. 09/20: Diffuse drug morbilliform exanthem noted this a.m. Tmax 100.6. Urine output around 20 cc an hour. Not tolerating PSV trials. Possibly new right pleural effusion noted on chest x-ray. Will need hemodialysis 09/21: Tmax 100.6 currently 98.7. -4 L with hemodialysis yesterday and today. FiO2 to 60%. Tolerating tube feeds. Positive BM. Still requiring sedation 09/22: Afebrile. Tolerating tube feeds. Positive BM. 30 g per kilogram per minute of propofol. Tolerated PSV trials 3 hours today 09/23 HD today with 3.5 L removal. Tolerating CPAP for 8 hours, currently 45% with RSBI 45%. 09/24 Called by RN this morning for concern for bloody BMs. Placed heparin and warfarin on hold. Serial Hgb ordered. Hgb 9.3 -->8.6 and hemodynamically unchanged. Started on protonix drip. Heme stool is negative and now RN states she is concerned about the adequacy of specimen, so sending repeat. Had asked GI to see, however further workup will not be indicated if hemoccult is negative. Tolerating PSV 05/06 09/25: heparin restarted. hemocult negative x 2. 09/26: no changes. still failing cpap trials. 09/27: Tmax 101.5. Currently 99.5. Resting on Diprivan drip at 25 mcg/kg/m. Currently tolerating tube feeding.. One bowel movement. 09/28: Hemoglobin trending downward. Transfusing 1 unit PRBCs with hemodialysis today. Currently afebrile. Appears comfortable ventilator 2 bowel movements 09/29 No events overnight. Sedated with Diprivan and on ventilator via trach. T: 99.9 For Perma Cath placement today. s/p HD yesterday with removal 4L and transfusion 1unit PRBC with HD. 09/30: Tmax 100.8. No events overnight. No bowel movement. Tolerating tube feeds. 10/01: Tmax 101.3. Currently resting in bed in no acute distress. Tolerating tube feeds. Chest x-ray revealed atelectasis. -5 L with hemodialysis yesterday. 10/02 Patient remains on ventilator via trach on PRVC/AC with PEEP: 10 and FIO2 50 %. T: 102.1 at 4 am. 10/03 Patient is off sedation on ventilator via trach. Tmax 101.2 last night. For HD today. 10/04: Tmax 101.5. Currently afebrile. Tolerating PSV trial. Hemodialysis - 4.5 L yesterday. Positive BM. New rash. Received chlorhexidine today. 10/05: Tmax 100. Currently 98.9. Positive BM. Tolerating tube feeds. Less erythematous today. Currently on dialysis 10/06: Tmax 99.9. Currently 99.7. Currently on PSV trial 09/12 @ 45%. Tolerating tube feed. Positive bowel movement 10/07: Tmax 99.8. currently psv 10/8/40%. has not been out of bed in weeks due to critical illness. needs to be mobilized. still no placement plan. Subjective 10/08: Tmax 100.4. on t-piece currently. tolerated psv yesterday. have ordered specialty chair and currently awaiting it to arrive. 10/09 Patient remains on ventilator via trach, T:99.9 on no sedation. 10/10 No acute events overnight. For HD today on heparin drip. T:99.8, tolerating tube feeds. 10/11 No events overnight. s/p HD yesterday with removal 3.5L. Tmax 100.5. Tolerating CPAP on PS 10, PEEP: 5 and FIO2 40%. 10/12: Patient receiving hemodialysis today. Tolerating CPAP. Very weakly following commands in all 4 extremities 10/13: 6 hours of T piece yesterday. Currently on TPs and following commands slightly better today. 10/14: No acute events reported overnight. Remains on CPAP on the vent. Getting hemodialysis now 10/15: Tachypneic today 35-38 breath per min, maintaining O2 sat. No fever. CXR unchanged. PS increased to 18. Will check ABG Objective Vital Signs Date Time Temp Pulse Resp B/P Pulse Ox O2 Delivery O2 Flow Rate FiO2 10/15/16 11:15 96 40 10/15/16 10:00 112 10/15/16 08:00 99.8 23 157/78 10/15/16 07:00 Mechanical Ventilator 10/14/16 13:05 7.00 Intake and Output 10/14/16 10/14/16 10/15/16 08:00 16:00 00:00 Intake Total 395 ml 586 ml 507 ml Output Total 3500 ml Balance 395 ml -2914 ml 507 ml Result Diagram: 10/15/16 0308 10/14/16 1405 Imaging Last Impressions Chest X-Ray 10/09/16 0600 Signed Impressions: Service Date/Time: Sunday, October 09, 2016 04:49 - CONCLUSION: Mild hazy opacity at the lung bases. This appears improved on the right. Scotty Huynh MD Catheter Placement X-Ray 09/29/16 1223 Signed Impressions: Service Date/Time: Thursday, September 29, 2016 12:31 - CONCLUSION: Vas-Cath to PermCath exchange as detailed above. Taco Haas Jr., MD Renal Ultrasound 09/17/16 0000 Signed Impressions: Service Date/Time: Saturday, September 17, 2016 13:31 - CONCLUSION: Negative renal sonogram. Taco Davidson MD Upper Extremity Ultrasound 09/14/16 0000 Signed Impressions: Service Date/Time: August 08:32 - CONCLUSION: There is thrombus within the left subclavian and internal jugular veins. Danyel Escalante MD Lower Extremity Ultrasound 09/13/16 0000 Signed Impressions: Service Date/Time: Tuesday, September 13, 2016 22:33 - CONCLUSION: Normal examination. Leonides Mason MD Liver Ultrasound 09/08/16 0000 Signed Impressions: Service Date/Time: Thursday, September 08, 2016 08:45 - CONCLUSION: 1. Cholelithiasis with distended gallbladder. However, there are no associated findings present to diagnose acute cholecystitis. If there is persistent clinical concern for acute cholecystitis could evaluate for cystic duct obstruction with hepatobiliary scintigraphy. 2. Hepatomegaly with very heterogeneous echotexture and steatosis. Dejan Allison MD Gall Bladder Ultrasound 08/29/16 0000 Signed Impressions: Service Date/Time: Monday, August 29, 2016 15:21 - CONCLUSION: 1. Hepatomegaly with heterogeneous echotexture throughout the liver. 2. There is a large echogenic area near the neck of the gallbladder suggestive of a stone, but despite its large size, demonstrates no acoustic shadowing in any of the views. Taco Davidson MD CT Angiography 08/15/16 0000 Signed Impressions: Service Date/Time: Monday, August 15, 2016 02:33 - CONCLUSION: 1. No evidence for pulmonary embolism. 2. Multifocal consolidation greatest in the right lower lobe and associated adenopathy. Terry Estrada MD Objective Remarks GENERAL: 56 yo female currently tachypneic on CPAP SKIN: Warm and dry. Skin is flaky. Noted stage I to 2 decubitus ulcer\coccyx and back covered with Mepilex HEAD: Normocephalic. EYES: No scleral icterus. No injection or drainage. NECK: Neck is obese. Right subclavian hemodialysis catheters clean dry and intact. Tracheostomy is clean dry and intact CARDIOVASCULAR: RRR. sinus by tele. RESPIRATORY: Diminished breath sounds throughout due to body habitus. Tachypneic today with a recent soft crackles evident GASTROINTESTINAL: Abdomen obese, soft, non-tender, hypoactive active bowel sounds. G-tube is clean dry and intact MUSCULOSKELETAL: 1+ edema BUE. Neuro: Awake, makes eye contact and nods to questions. Following commands moving upper and lower extremity spontaneously, though still very weak. A/P Problem List: (1) ARDS (adult respiratory distress syndrome) ICD Code: J80 Status: Acute (2) CHF (congestive heart failure) ICD Code: I50.9 Status: Acute (3) Respiratory failure ICD Code: J96.90 Status: Acute (4) Pneumonia ICD Code: J18.9 Status: Acute Assessment and Plan Neuro/Psych: Acute toxic metabolic encephalopathy Critical care myopathy Agitated delirium- improving. No sedation. Monitor neuro status. Fentanyl allergy Ativan 2 mg IV x1 for tachypnea On Seroquel 75 mg every 8 hours melatonin 5mg po qHS for sleep. PT/OT Pulm: Acute on chronic hypercapnic and hypoxemic respiratory failure ARDS- resolved. Pneumonia community-acquired, now with HCAP with carbapenem-resistant pseudomonas and ESBL Klebsiella VAP. Probable JOE Tachypnea today on CPAP, check ABG, increase pressure support of 18 Chest x-ray is unchanged May need CTA to rule out PE if persistently tachypneic ([facility]/Subclavian DVT) Continue with vent support keep sat >90% ICU vent bundle Bronchodilator therapy every 6 hours and as needed Pulm has followed- Dr. Beck Gen surgery Dr. Ortega s/p s tracheostomy 09/15 Pulm toilet, trach care Hold off placing on TPs today CV: Hypertension Dyslipidemia Elevated troponin - likely strain On Lopressor 50mg Q12 monitor HR and BP keep MAP>65mmHg Echo 08/14 showed EF 65-70% mild AR/TR On Pravachol 20 mg a night for dyslipidemia Renal/: Acute kidney injury - requiring hemodialysis Dr. Tan -nephrology following. Hemodialysis Sunday//Sunday MIKE: ATN from sepsis syndrome and diminished renal perfusion; also aminoglycoside induced nephrotoxicity likely also contributing; possibly AIN -> per nephrology note Urine eosinophils negative. Renal ultrasound revealed no hydronephrosis Monitor renal function, I/O's, avoid nephrotoxins. GI: Elevated transaminases Cholelithiasis On TF Nepro's 45 cc an hour and beneprotein 2 packs 3 times a day s/p PEG placement 09/01/[address] Ritter Pepcid 10mg BID GI prophylaxis Having BM US liver: Fatty liver and cholelithiasis. Repeat 09/08 revealed cholelithiasis with no acute signs of cholecystitis. Recommend a HIDA scan if indicated ID: Pseudomonas pneumonia Funguria, Maribell glabrata and parapsilosis. Continue with abx (Zerbaxa). ID following. Pertinent cultures blood and sputum cx 08/15- NG strep pneumonia and Legionella urinary Ag negative Blood cultures 08/28: NGTD C Diff negative 08/28. Lines changed 08/28. Sputum 08/30 - Pseudomonas Sputum 09/02 PSAE, resistant to carbapenem, intermediate to Levaquin. 09/07 - urine -Maribell Guilliermondii 09/07 - blood cultures 2 - no growth 09/09 - urine -strep viridans, Maribell parapsilosis 09/10 - blood cultures 2 -no growth 09/11 - broch washings -no growth to date 09/12 - urine -Maribell glabrata and parapsilosis 09/16 - blood cultures 2 - pending 09/16 - sputum -no growth 09/16 - urine -Maribell glabrata and parapsilosis 10/02 - blood cultures 2 - staph epi 10/02 - urine - ESBL positive Klebsiella 10/04 - blood cultures 2 - pending 10/05 - blood cultures 2 - pending Zosyn previously discontinued secondary to rash Heme: Left IJ/subclavian nonocclusive thrombus Peripheral smear with leukoerythroblastosis - likely reactive Monitor CBC, s/p transfusion 1unit PRBC with HD 09/29 INR: 1.4 10/14, pharmacy dosing. IV Heparin started 10/14 due to subtherapeutic INR PTT therapeutic Endo: Diabetes mellitus Hypothyroidism on SSI (medium scale) for glycemic control On Synthroid 200mcg daily. TSH 1.37 GI prophylaxis-Protonix 40mg Q12 DVT - IV heparin until therapeutic on Coumadin Lines: Peripheral IV. - PEG 09/01/16 - Trach 09/15 - Right Permacath placed 09/29 CCT 35 MIN Loree Marinelli, daughter (HCP): [phone] Rony Marinelli, significant other: [phone] Problem Qualifiers (1) CHF (congestive heart failure): Qualified Code: I50.9 - Acute congestive heart failure, unspecified congestive heart failure type (2) Respiratory failure: Qualified Code: J96.02 - Acute respiratory failure with hypercapnia (3) Pneumonia: Qualified Code: J18.9 - Pneumonia of both lungs due to infectious organism, unspecified part of lung Darian Wylie MD October 15, 2016 11:32
[2016-10-15 11:35] LABS: BLOOD GAS BASE EXCESS 5.6 mmol/L (-2-2); BLOOD GAS CARBOXYHEMOGLOBIN 2.4 % (0-4); BLOOD GAS HCO3 29 mmol/L (22-26); BLOOD GAS METHEMOGLOBIN 1.3 % (0-2); BLOOD GAS O2 HGB SATURATION 92 % (90-100); BLOOD GAS OXYGEN CONTENT 11.1 Vol % (12.0-20.0); BLOOD GAS PCO2 40 mmHg (38-42); BLOOD GAS PO2 75 mmHg (61-120); BLOOD GAS TOTAL HGB 8.5 G/DL (12.0-16.0); CRITICAL VALUE NO; OXYGEN DEVICE VENTILATOR; TEMP CORR TO 98.6
[2016-10-15 11:36] LABS: DRAW SITE RT RADIAL; FIO2 40 %; NUMBER OF ARTERIAL PUNCTURES 1; STAT YES; VENT SETTINGS CPAPPEEP5/PS18
[2016-10-15] MEDS ORDERED: LORazepam 2 MG/ML VIAL IV PUSH PRN (11:45)
[2016-10-15] MEDS: DEXMEDETOMIDINE INJ 200 MCG in SODIUM CHLORIDE 0.9% INJ 50 ML IV SCH ×2 (12:02→15:50)
--- NOTE | 2016-10-15 13:21 | HHI.NPPN ---
Subjective General Problems: Edema, Hypotension, Obesity Renal Failure: Acute Additional Remarks Patient is more sleepy and lethargic today, remain on the vent. Review of Systems General General Remarks no pain Neuro Neuro Remarks generalized muscle fasciculation Objective Data Data 10/14/16 10/15/16 19:00 07:00 Intake Total 586 ml 1097 ml Output Total 3500 ml Balance -2914 ml 1097 ml IV Total 105 ml 369 ml Tube Feeding 381 ml 668 ml Tube Irrigant 100 ml Other 60 ml Hemodialysis 3500 ml # Voids 2 # Bowel Movements 3 2 Vital Signs Date Time Temp Pulse Resp B/P Pulse Ox O2 Delivery O2 Flow Rate FiO2 10/15/16 12:00 99.8 113 35 140/72 93 10/15/16 12:00 113 10/15/16 12:00 40 10/15/16 11:43 95 40 10/15/16 11:15 96 40 10/15/16 10:06 93 35 10/15/16 10:00 112 10/15/16 08:00 99.8 129 23 157/78 92 10/15/16 08:00 129 10/15/16 08:00 35 10/15/16 07:59 96 35 10/15/16 07:00 92 Mechanical Ventilator 35 10/15/16 06:00 126 10/15/16 04:27 92 35 10/15/16 04:00 99.0 111 28 173/87 96 10/15/16 04:00 35 10/15/16 04:00 109 10/15/16 02:00 101 10/15/16 01:04 98 35 10/15/16 00:00 99.7 105 26 163/77 96 10/15/16 00:00 35 10/15/16 00:00 105 10/14/16 22:00 105 10/14/16 21:35 97 35 10/14/16 20:00 40 10/14/16 20:00 100.5 123 24 169/91 93 10/14/16 20:00 123 10/14/16 19:00 93 T-Piece 40 10/14/16 18:00 127 10/14/16 16:00 118 10/14/16 16:00 98.3 118 173/87 96 10/14/16 16:00 40 10/14/16 14:00 126 -: 10/15/16 0308 10/14/16 1405 Tubes & Lines: Perma-Cath Tubes & Lines Comment trach, PEG, rectal tube Physical Exam General Appearance: No Acute Distress, Comfortable, Obese Eyes Eye Exam: Pupils Equal, Pupils Reactive Throat Throat Exam: Oral Mucosa Mignon & Moist Neck Neck Exam: Neck Supple Pulmonary Resp Exam: Crackles, Rhonchi, Sputum, Diminished Breath Sounds Cardiology CV Exam: Regular, Normal Sinus Rhythm, Good Perfusion Gastrointestinal/Abdomen GI Exam: Soft, Bowel Sounds Present Musculoskeletal MS Exam: Joints Intact, Normal Tone Integumentary Skin Exam: Warm, Dry, Intact Extremeties Extremities Exam: Dependent Edema Neurologic Neuro Exam: Obtunded Assessment/Plan Discussed Condition With: Patient Assessment Summary: MIKE/Acute Renal Failure, Acute Tubular Necrosis, Fluid/ Volume Overload Electrolyte Assessment: Hyponatremia Problem List: (1) Acute kidney injury Plan: ARF due to ATN HD initiated 09/20; she is dialysis dependent and currently on TTS schedule. Using PermCath for dialysis , 3L UF yesterday remains anuric, await signs of renal recovery monitor potassium continue Nepro tube feeding begin free water flushes ; continue PhosLo for hyperphosphatemia Avoid nephrotoxic agents. HD done yesterday and 3.5 liters removed. Tolerated well. BP is stable. Urine out put is low. HD to continue TTS and as needed. Dr. Tan will follow in AM. (2) ARDS (adult respiratory distress syndrome) Plan: s/p trach placement continue Ventilator support, on daily CPAP Medical Representative managing. (3) Anemia Plan: Hb low but stable on heparin and protonix GI has evaluated (4) Pneumonia Plan: afebrile recently, leukocytosis resolved; recent sputum culture showing Pseudomonas multidrug resistant organisms. ID following. She is now on Zerbaxa (5) Hypothyroidism Plan: on synthroid (6) Morbid obesity (7) DVT (deep venous thrombosis) Plan: in IJ after central line placement (provoked) on Coumadin , follow INR Plan patient was seen and examined. Agree with above assessment and plan. Dialysis tomorrow. Problem Qualifiers (1) Pneumonia: Qualified Code: J18.9 - Pneumonia of both lungs due to infectious organism, unspecified part of lung Stefanie Dennis MD October 15, 2016 13:21
[2016-10-15] MEDS ORDERED: WARFARIN SOD 5 MG TAB PO ONE (16:00)
[2016-10-15] MEDS ORDERED: WARFARIN SOD 7.5 MG TAB PO ONE (16:00)
[2016-10-15] MEDS: MELATONIN 5 MG TAB PO SCH (19:48)
[2016-10-15] MEDS: PRAVASTATIN SOD 20 MG TAB PO SCH (19:49)
[2016-10-16] VITALS (18 sets, daily range): BP systolic 99–153; BP diastolic 55–83; PULSE 67–119; RESP 18–26; TEMP 98.6–99.4; O2SAT 93–98
[2016-10-16] MEDS: CHLORHEXIDINE GLUCONATE 2 % 1 PACK (2 CLOTHS) TOP SCH (04:00)
[2016-10-16] MEDS: DEXMEDETOMIDINE INJ 200 MCG in SODIUM CHLORIDE 0.9% INJ 50 ML IV SCH ×3 (04:02→18:13)
[2016-10-16] MEDS: CEFTOLOZANE-TAZOBACTAM INJ 150 MG in SODIUM CHLORIDE 0.9% INJ 100 ML IV SCH ×2 (04:03→12:00)
[2016-10-16] MEDS: RESP: ALBUTEROL 2.5 MG/IPRATROPIUM 0.5 MG NEB (PRN) INH (04:41)
--- NOTE | 2016-10-16 05:57 | RADRPT ---
EXAM DATE/TIME: 10/16/2016 03:43 [facility] COMPARISON: CHEST SINGLE AP, October 15, 2016, 9:55. INDICATIONS : Shortness of breath, possible pulmonary disease. MEDICAL HISTORY : Congestive heart failure. SURGICAL HISTORY : Tracheostomy ENCOUNTER: Subsequent ACUITY: 2 months PAIN SCORE: Non-responsive. LOCATION: Bilateral chest FINDINGS: Tracheostomy tube is present in satisfactory position. Right subclavian line is present with tip over lapping the expected region of the SVC. Mild right lung base atelectasis and/or infiltrate is seen. T here is also mild prominence of the interstitial markings may represent pulmonary edema. CONCLUSION: No appreciable change. Danyel Escalante MD on October 16, 2016 at 5:55 Board Certified Radiologist. This report was verified electronically.
[2016-10-16] MEDS: QUEtiapine FUMARATE 25 MG TAB PO SCH ×3 (06:09→21:47)
[2016-10-16] MEDS: LEVOTHYROXINE SODIUM 200 MCG TAB PO SCH (06:10)
[2016-10-16] MEDS: HEPARIN-D5W 25,000 U/250 ML 250 ML IV SCH ×2 (06:14→23:48)
[2016-10-16 06:24] LABS: HEMATOCRIT 23.8 % (35.0-46.0); MEAN CELL VOLUME 83.3 FL (80.0-100.0); MEAN CORPUSCULAR HEMOGLOBIN 28.6 PG (27.0-34.0); MEAN CORPUSCULAR HGB CONC 34.4 % (32.0-36.0); PLATELET COUNT 263 TH/MM3 (150-450); RED BLOOD COUNT 2.86 MIL/MM3 (4.00-5.30); RED CELL DISTRIBUTION WIDTH 18.2 % (11.6-17.2); WHITE BLOOD COUNT 6.6 TH/MM3 (4.0-11.0)
[2016-10-16 06:44] LABS: HEMO FLAGS AUTO DIFF
[2016-10-16 06:45] LABS: APTT (PATIENT) 78.6 SEC (24.3-30.1); INTERNATIONAL NORMALIZED RATIO 1.5 RATIO; PROTHROMBIN TIME - PATIENT 17.3 SEC (9.8-11.6)
[2016-10-16 06:55] LABS: ALKALINE PHOSPHATASE 88 U/L (45-117); ALT (GPT) 53 U/L (10-53); ANION GAP 15 MEQ/L (5-15); AST (GOT) 48 U/L (15-37); BICARBONATE 27.7 MEQ/L (21.0-32.0); BLOOD UREA NITROGEN 64 MG/DL (7-18); CHLORIDE 97 MEQ/L (98-107); GLOMERULAR FILTRATION RATE 20 ML/MIN (>89); SODIUM (NA) 140 MEQ/L (136-145); TOTAL BILIRUBIN ADULT 0.5 MG/DL (0.2-1.0)
[2016-10-16 07:18] LABS: BANDS 6 % (0-6); METAMYELOCYTES 1 % (0-1); MYELOCYTES 1 % (0-0)
[2016-10-16 07:20] LABS: BLASTS 2 % (0-0); EOSINOPHILS 4 % (0-4); NEUTROPHIL # MANUAL DIFF 3.8 TH/MM3 (1.8-7.7); POLYS (SEG NEUTROPHILS) 49 % (16-70); WBC DIFF SAMPLE 100
[2016-10-16 07:28] LABS: KERATOCYTES OCC (NORMAL); PLATELET ESTIMATE SMEAR NORMAL (NORMAL); PLATELET MORPHOLOGY NORMAL (NORMAL); SCAN/DIFF FINAL DIFF MANUAL
[2016-10-16] MEDS: BENEPROTEIN POWDER 1 PACK G-TUBE SCH ×3 (09:00→18:00)
[2016-10-16] MEDS: DOCUSATE SODIUM 100 MG/10 ML UDC PO SCH ×2 (09:00→21:47)
[2016-10-16] MEDS: SODIUM CHLORIDE 0.9% FLUSH 10 ML FLUSH IVF SCH (09:00)
--- NOTE | 2016-10-16 09:22 | HHI.NPPN ---
Subjective Complaints: Obesity, Shortness of Breath General Problems: Edema, Hypotension, Obesity Renal Failure: Acute Interval History She is on Precedex gtt. Sitting up in chair on vent. Her underpad was saturated with urine this morning. (Genny Lowery) Review of Systems General General Remarks no pain (Genny Lowery) Neuro Neuro Remarks generalized muscle fasciculation (Genny Lowery) Objective Data Data 10/15/16 10/16/16 19:00 07:00 Intake Total 734 ml 1352 ml Balance 734 ml 1352 ml IV Total 243 ml 594 ml Tube Feeding 291 ml 698 ml Tube Irrigant 200 ml Other 60 ml # Voids 1 2 # Bowel Movements 2 Vital Signs Date Time Temp Pulse Resp B/P Pulse Ox O2 Delivery O2 Flow Rate FiO2 10/16/16 08:34 97 50 10/16/16 06:00 102 10/16/16 04:41 95 50 10/16/16 04:00 99.4 103 24 133/83 93 10/16/16 04:00 50 10/16/16 04:00 103 10/16/16 02:00 99 10/16/16 00:50 98 50 10/16/16 00:00 98.7 85 19 99/55 95 10/16/16 00:00 50 10/16/16 00:00 85 10/15/16 22:00 83 10/15/16 20:50 22 50 10/15/16 20:00 50 10/15/16 20:00 100.1 109 19 145/81 96 10/15/16 20:00 109 10/15/16 20:00 96 Mechanical Ventilator 50 10/15/16 18:00 115 10/15/16 16:24 92 40 10/15/16 16:00 97 10/15/16 16:00 99.3 97 23 96/55 93 10/15/16 16:00 40 10/15/16 14:00 102 10/15/16 13:51 94 40 10/15/16 12:00 99.8 113 35 140/72 93 10/15/16 12:00 113 10/15/16 12:00 40 10/15/16 11:43 95 40 10/15/16 11:15 96 40 10/15/16 10:06 93 35 10/15/16 10:00 112 (Genny Lowery) -: 10/16/16 0506 10/16/16 0506 Imaging Last Impressions Chest X-Ray 10/16/16 0600 Signed Impressions: Service Date/Time: Sunday, October 16, 2016 03:43 - CONCLUSION: No appreciable change. Danyel Escalante MD Catheter Placement X-Ray 09/29/16 1223 Signed Impressions: Service Date/Time: Thursday, September 29, 2016 12:31 - CONCLUSION: Vas-Cath to PermCath exchange as detailed above. Taco Haas Jr., MD Renal Ultrasound 09/17/16 0000 Signed Impressions: Service Date/Time: Saturday, September 17, 2016 13:31 - CONCLUSION: Negative renal sonogram. Taco Davidson MD Upper Extremity Ultrasound 09/14/16 0000 Signed Impressions: Service Date/Time: August 08:32 - CONCLUSION: There is thrombus within the left subclavian and internal jugular veins. Danyel Escalante MD Lower Extremity Ultrasound 09/13/16 0000 Signed Impressions: Service Date/Time: Tuesday, September 13, 2016 22:33 - CONCLUSION: Normal examination. Leonides Mason MD Liver Ultrasound 09/08/16 0000 Signed Impressions: Service Date/Time: Thursday, September 08, 2016 08:45 - CONCLUSION: 1. Cholelithiasis with distended gallbladder. However, there are no associated findings present to diagnose acute cholecystitis. If there is persistent clinical concern for acute cholecystitis could evaluate for cystic duct obstruction with hepatobiliary scintigraphy. 2. Hepatomegaly with very heterogeneous echotexture and steatosis. Dejan Allison MD Gall Bladder Ultrasound 08/29/16 0000 Signed Impressions: Service Date/Time: Monday, August 29, 2016 15:21 - CONCLUSION: 1. Hepatomegaly with heterogeneous echotexture throughout the liver. 2. There is a large echogenic area near the neck of the gallbladder suggestive of a stone, but despite its large size, demonstrates no acoustic shadowing in any of the views. Taco Davidson MD CT Angiography 08/15/16 0000 Signed Impressions: Service Date/Time: Monday, August 15, 2016 02:33 - CONCLUSION: 1. No evidence for pulmonary embolism. 2. Multifocal consolidation greatest in the right lower lobe and associated adenopathy. Terry Estrada MD Tubes & Lines: Perma-Cath Tubes & Lines Comment trach, PEG, rectal tube (Genny Lowery. CORPORATE COMM[employer]ICATIONS INTERN) Physical Exam General Appearance: No Acute Distress, Comfortable, Obese Appearance Remarks awake, nods head and mouths words (Genny Lowery B. [employer]ATE COMM[employer]ICATION[employer] INTERN) Eyes Eye Exam: Pupils Equal, Pupils Reactive (Genny Lowery B. [employer]ATE COMM[employer]ICATIONS INTERN) Throat Throat Exam: Oral Mucosa [place] & Moist Throat Remarks trach (Genny Lowery B. [employer]ATE COMM[employer]ICATIONS INTERN) Neck Neck Exam: Neck Supple Neck Remarks trach (Genny Lowery B. [employer]ATE COMM[employer]ICATIONS INTERN) Pulmonary Resp Exam: Crackles, Rhonchi, Sputum, Diminished Breath Sounds Resp Remarks vented lung sounds course throughout (Genny Lowery B. [employer]ATE COMM[employer]ICATIONS INTERN) Cardiology CV Exam: Regular, Normal Sinus Rhythm, Good Perfusion (Genny Lowery B. [employer]ATE COMM[employer]ICATIONS INTERN) Gastrointestinal/Abdomen GI Exam: Soft, Bowel Sounds Present GI Remarks morbidly obese, + PEG (Genny Lowery B. [employer]ATE COMM[employer]ICATIONS INTERN) Musculoskeletal MS Exam: Joints Intact, Normal Tone (Genny Lowery B. [employer]PORATE COMM[employer]ICATIONS INTERN) Integumentary Skin Exam: Warm, Dry, Intact (Genny Lowery B. [employer]PORATE COMM[employer]ICATIONS INTERN) Extremeties Extremities Exam: Pedal Pulses Palpable, Moderate Edema Extremeties Remarks all four extremities (Genny Lowery B. [employer]PORATE COMM[employer]ICATIONS INTERN) Neurologic Neuro Exam: Alert, Awake, Oriented, Moving All Extremities Neuro Remarks awake, nods head yes/no to questions (Genny Lowery B. [employer]ATE COMM[employer]ICATIONS INTERN) VTE Prophylaxis Meds: Heparin (Genny Lowery B. [employer]ATE COMM[employer]ICATIONS INTERN) Assessment/Plan Discussed Condition With: Patient Assessment Summary: MIKE/Acute Renal Failure, Acute Tubular Necrosis, Fluid/ Volume Overload Electrolyte Assessment: Hyponatremia Problem List: (1) Acute kidney injury Plan: ARF due to ATN HD initiated 09/20; she is dialysis dependent and currently on TTS schedule. Using PermCath for dialysis await signs of renal recovery, her serum Creatinine is lower and she made some urine overnight may hold HD tomorrow depending on above replace potassium via PEG continue Nepro tube feeding begin free water flushes; continue PhosLo for hyperphosphatemia Avoid nephrotoxic agents. 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 She is requiring Precedex (3) Anemia Plan: Hb low but stable on heparin and protonix GI has evaluated (4) Pneumonia Plan: intermittent low grade fevers, leukocytosis resolved; recent sputum culture showing Pseudomonas multidrug resistant organisms. ID following. She is still on Zerbaxa (5) Hypothyroidism Plan: on synthroid (6) Morbid obesity (7) DVT (deep venous thrombosis) Plan: in IJ after central line placement (provoked) bridge to Coumadin with Heparin , follow INR (Genny Lowery) Plan patient was seen and examined. Renal function may be improving. Monitor labs. She is incontinent, accurate urine output not being measured. (Anshu Tan MD) Problem Qualifiers (1) Pneumonia: Qualified Code: J18.9 - Pneumonia of both lungs due to infectious organism, unspecified part of lung Genny Lowery October 16, 2016 09:22 Anshu Tan MD October 17, 2016 12:19
[2016-10-16] MEDS ORDERED: POTASSIUM CHLORIDE 20 MEQ PWD PACKET PO ONE (09:30)
[2016-10-16] MEDS: ARTIFICIAL TEARS OPTH SOLN 15 ML BTL EACH EYE SCH ×3 (09:42→18:12)
[2016-10-16] MEDS: SODIUM CHLORIDE 0.9% FLUSH 10 ML FLUSH IV FLUSH SCH (09:45)
[2016-10-16] MEDS: METOPROLOL TARTRATE 25 MG TAB G-TUBE SCH ×2 (09:45→21:47)
[2016-10-16] MEDS: EUCERIN CREAM 120 GM JAR TOPICAL SCH ×2 (09:46→21:48)
[2016-10-16] MEDS: CALCIUM ACETATE 667 MG CAP PO SCH ×3 (09:46→18:12)
[2016-10-16] MEDS: FAMOTIDINE 40 MG/5 ML LIQ 50 ML BTL NG SCH ×2 (09:46→21:48)
--- NOTE | 2016-10-16 12:53 | HHI.PR ---
Subjective Remarks Back on Vent support and on A/C rate 14 ,FIO2 50%. PEEP +5 Dialysis done . Objective Vital Signs Date Time Temp Pulse Resp B/P Pulse Ox O2 Delivery O2 Flow Rate FiO2 10/16/16 12:07 97 50 10/16/16 12:00 50 10/16/16 12:00 100 10/16/16 11:00 50 10/16/16 10:59 50 10/16/16 10:00 30 10/16/16 10:00 103 10/16/16 09:00 30 10/16/16 08:34 97 50 10/16/16 08:00 50 10/16/16 08:00 79 10/16/16 08:00 98.6 94 18 136/70 96 10/16/16 07:00 96 Mechanical Ventilator 50 10/16/16 06:00 102 10/16/16 04:41 95 50 10/16/16 04:00 99.4 103 24 133/83 93 10/16/16 04:00 50 10/16/16 04:00 103 10/16/16 02:00 99 10/16/16 00:50 98 50 10/16/16 00:00 98.7 85 19 99/55 95 10/16/16 00:00 50 10/16/16 00:00 85 10/15/16 22:00 83 10/15/16 20:50 22 50 10/15/16 20:00 50 10/15/16 20:00 100.1 109 19 145/81 96 10/15/16 20:00 109 10/15/16 20:00 96 Mechanical Ventilator 50 10/15/16 18:00 115 10/15/16 16:24 92 40 10/15/16 16:00 97 10/15/16 16:00 99.3 97 23 96/55 93 10/15/16 16:00 40 10/15/16 14:00 102 10/15/16 13:51 94 40 I/O 10/15/16 10/15/16 10/15/16 10/16/16 10/16/16 10/16/16 07:00 15:00 23:00 07:00 15:00 23:00 Intake Total 590 ml 734 ml 637 ml 715 ml Balance 590 ml 734 ml 637 ml 715 ml IV Total 224 ml 243 ml 288 ml 306 ml Tube Feeding 306 ml 291 ml 349 ml 349 ml Tube Irrigant 200 ml Other 60 ml 60 ml # Voids 1 1 1 # Bowel Movements 2 1 1 Result Diagram: 10/16/16 0506 10/16/16 0506 Objective Remarks This is an obese middle-aged white female who is responsive and cooperative HEENT: Head normocephalic.throat clear Neck: No bruits, no thyroid enlargement, no lymphadenopathy. Chest: Decreased breath sounds. Occ wheeze.Basal crackles. Heart: Heart sounds were regular. S1-S2 no murmur, no S3. Abdomen: Soft, benign. No masses, or tenderness. Bowel sounds are active. Extremities:min edema . Neuro :Moves all limbs. Awake . Assessment and Plan Assessment and Plan IMPRESSION 1. Acute hypercapnic respiratory failure.Resolving 2. Pulmonary edema. 3. Drug rash 4. Obstructive sleep apnea syndrome 5. Hypertension 6. Hypothyroidism. 7. MIKE Plan : 1. Cont on vent support and wean FIO2 to 40 % 2. Trach toilet and suctioning. 3. Nebs qid , duoneb. 4. Reduce sedation 5. Antibiotics per ID 6. PT and OT 7. Tube feeds at 50 CC 8. Chest X ray ,BMP in am Abimael Beck MD October 16, 2016 12:52
[2016-10-16 13:19] LABS: APTT (PATIENT) 65.8 SEC (24.3-30.1)
--- NOTE | 2016-10-16 13:29 | HHI.IDPN ---
Subjective Subjective Remarks Patient is admitted to ICU with respiratory failure, CHF, pneumonia, probable underlying COPD. Patient was intubated and placed on mechanical ventilation. NOt weaning and had trach done 09/15. Has been having fevers. s/p Rx for PSAE PNA and C glabrata UTI. ID now following for ESBL HCAP. Overnight events reviewed. Fevers defervesced. Oliguric,on HD Tues, Thurs, Sat. Remains on vent. Trach and PEG. No diarrhea Sitting in bed chair. Antibiotics Zerbaxa IV Lines Line sites with no e.o infection. Past Medical History reviewed. Allergies: Coded Allergies: Fentanyl (Verified Adverse Reaction, Severe, rash, 09/21/16) *MDRO Multi-Drug Resistant Organism (Verified Adverse Reaction, Unknown, ) ESBL (urine & sputum)-10/02/16 Objective . Vital Signs Date Time Temp Pulse Resp B/P Pulse Ox O2 Delivery O2 Flow Rate FiO2 10/16/16 12:07 97 50 10/16/16 12:00 50 10/16/16 12:00 100 10/16/16 11:00 50 10/16/16 10:59 50 10/16/16 10:00 30 10/16/16 10:00 103 10/16/16 09:00 30 10/16/16 08:34 97 50 10/16/16 08:00 50 10/16/16 08:00 79 10/16/16 08:00 98.6 94 18 136/70 96 10/16/16 07:00 96 Mechanical Ventilator 50 10/16/16 06:00 102 10/16/16 04:41 95 50 10/16/16 04:00 99.4 103 24 133/83 93 10/16/16 04:00 50 10/16/16 04:00 103 10/16/16 02:00 99 10/16/16 00:50 98 50 10/16/16 00:00 98.7 85 19 99/55 95 10/16/16 00:00 50 10/16/16 00:00 85 10/15/16 22:00 83 10/15/16 20:50 22 50 10/15/16 20:00 50 10/15/16 20:00 100.1 109 19 145/81 96 10/15/16 20:00 109 10/15/16 20:00 96 Mechanical Ventilator 50 10/15/16 18:00 115 10/15/16 16:24 92 40 10/15/16 16:00 97 10/15/16 16:00 99.3 97 23 96/55 93 10/15/16 16:00 40 10/15/16 14:00 102 10/15/16 13:51 94 40 10/15/16 10/15/16 10/16/16 15:00 23:00 07:00 Intake Total 734 ml 637 ml 715 ml Balance 734 ml 637 ml 715 ml IV Total 243 ml 288 ml 306 ml Tube Feeding 291 ml 349 ml 349 ml Tube Irrigant 200 ml Other 60 ml # Voids 1 1 1 # Bowel Movements 1 1 . Laboratory Tests Test 10/14/16 10/15/16 10/16/16 14:05 03:08 05:06 White Blood Count 9.9 TH/MM3 8.8 TH/MM3 6.6 TH/MM3 Red Blood Count 3.38 MIL/MM3 3.16 MIL/MM3 2.86 MIL/MM3 Hemoglobin 9.0 GM/DL 8.8 GM/DL 8.2 GM/DL Hematocrit 28.2 % 26.1 % 23.8 % Mean Corpuscular Volume 83.4 FL 82.7 FL 83.3 FL Mean Corpuscular Hemoglobin 26.8 PG 27.9 PG 28.6 PG Mean Corpuscular Hemoglobin 32.1 % 33.7 % 34.4 % Concent Red Cell Distribution Width 17.7 % 17.6 % 18.2 % Platelet Count 245 TH/MM3 262 TH/MM3 263 TH/MM3 Mean Platelet Volume 6.8 FL 7.2 FL 7.4 FL Neutrophils (%) (Auto) % Lymphocytes (%) (Auto) % Monocytes (%) (Auto) % Eosinophils (%) (Auto) % Basophils (%) (Auto) % Neutrophils # (Auto) TH/MM3 Lymphocytes # (Auto) TH/MM3 Monocytes # (Auto) TH/MM3 Eosinophils # (Auto) TH/MM3 Basophils # (Auto) TH/MM3 CBC Comment AUTO DIFF Differential Total Cells 100 Counted Neutrophils % (Manual) 49 % Band Neutrophils % 6 % Lymphocytes % 28 % Monocytes % 9 % Eosinophils % 4 % Neutrophils # (Manual) 3.8 TH/MM3 Metamyelocytes 1 % Myelocytes 1 % Differential Comment FINAL DIFF MANUAL Blastocytes 2 % Platelet Estimate NORMAL Platelet Morphology Comment NORMAL Keratocytes OCC Laboratory Tests Test 10/14/16 10/16/16 14:05 05:06 Potassium Level 3.3 MEQ/L 3.0 MEQ/L Sodium Level 140 MEQ/L Chloride Level 97 MEQ/L Carbon Dioxide Level 27.7 MEQ/L Anion Gap 15 MEQ/L Blood Urea Nitrogen 64 MG/DL Creatinine 2.50 MG/DL Estimat Glomerular Filtration 20 ML/MIN Rate Random Glucose 131 MG/DL Calcium Level 10.4 MG/DL Total Bilirubin 0.5 MG/DL Aspartate Amino Transf 48 U/L (AST/SGOT) Alanine Aminotransferase 53 U/L (ALT/SGPT) Alkaline Phosphatase 88 U/L Total Protein 6.5 GM/DL Albumin 3.4 GM/DL Imaging Chest X-Ray 09/15/16 0600 Signed Impressions: Service Date/Time: Thursday, September 15, 2016 03:52 - CONCLUSION: Persistent and unchanged bibasilar infiltrates. Taco Haas Jr., MD Chest X-Ray 09/15/16 0000 Signed Impressions: Service Date/Time: Thursday, September 15, 2016 11:00 - CONCLUSION: Placement of tracheostomy tube otherwise not changed. Danyel Escalante MD Liver Ultrasound 09/08/16 0000 Signed Impressions: Service Date/Time: Thursday, September 08, 2016 08:45 - CONCLUSION: 1. Cholelithiasis with distended gallbladder. However, there are no associated findings present to diagnose acute cholecystitis. If there is persistent clinical concern for acute cholecystitis could evaluate for cystic duct obstruction with hepatobiliary scintigraphy. 2. Hepatomegaly with very heterogeneous echotexture and steatosis. Dejan Allison MD Chest X-Ray 09/06/16 0000 Signed Impressions: Service Date/Time: Tuesday, September 06, 2016 11:09 - CONCLUSION: No significant change has occurred. Terry Estrada MD Gall Bladder Ultrasound 08/29/16 0000 Signed Impressions: Service Date/Time: Monday, August 29, 2016 15:21 - CONCLUSION: 1. Hepatomegaly with heterogeneous echotexture throughout the liver. 2. There is a large echogenic area near the neck of the gallbladder suggestive of a stone, but despite its large size, demonstrates no acoustic shadowing in any of the views. Taco Davidson MD CT Angiography 08/15/16 0000 Signed Impressions: Service Date/Time: Monday, August 15, 2016 02:33 - CONCLUSION: 1. No evidence for pulmonary embolism. 2. Multifocal consolidation greatest in the right lower lobe and associated adenopathy. Terry Estrada MD Physical Exam GENERAL: Morbidly obese CF patient, awake, NAD, on the vent SKIN: Has patches of redness on her trunk, and some papules in extremities HEAD: Atraumatic. Normocephalic. No temporal or scalp tenderness. EYES: Pupils equal round and reactive. No scleral icterus. Moist mucosa ENT: No nasal discharge. Dry oral mucosa NECK: Large neck. Supple. Trach in place CARDIOVASCULAR: Regular rate and rhythm RESPIRATORY: Clear to auscultation. Breath sounds equal bilaterally. GASTROINTESTINAL: Abdomen soft, obese, non-tender, nondistended. MUSCULOSKELETAL: Extremities without clubbing, cyanosis. Edema (+) NEUROLOGICAL: eyes open, did not track of focus PIV with no evidence of infection Miller in place with clear urine. Assessment & Plan Remarks Sepsis present on admission. HCAP: ESBL and very MDR PSAE Staph epidermidis: possible contaminant but will repeat HD cath culture. Morbid Obesity (BMI 45.8 kg/m2) Obstructive Sleep Apnea (supposed to be on CPAP at home and home oxygen 2L) Acute respiratory failure vent dependent. Acute metabolic encephalopathy: infection, meds. Thrombosis of cephalic vein. Renal insufficiency, now on HD Recs: DC Zerbaxa IV Follow clinically. If fevers persist or worsening sepsis consider adding Zyvox and repeat rudolph cultures merly sputum. Weaning per [facility] Monitor progress Follow temps D/W RN d/w Sofy the hot car charger: needs LTAC but no funding. SSI pending per CM notes. d/w CCM MD: follow temps if persistent fevers or change in clinical condition to reconsult ID. Will sign off. Terri Uribe MD October 16, 2016 13:29
[2016-10-16] MEDS ORDERED: WARFARIN SOD 7.5 MG TAB PO SCH (16:00)
[2016-10-16] MEDS ORDERED: WARFARIN SOD 5 MG TAB PO SCH (16:00)
[2016-10-16 21:02] LABS: APTT (PATIENT) 61.9 SEC (24.3-30.1)
[2016-10-16] MEDS: MELATONIN 5 MG TAB PO SCH (21:46)
[2016-10-16] MEDS: PRAVASTATIN SOD 20 MG TAB PO SCH (21:47)
[2016-10-17] VITALS (19 sets, daily range): BP systolic 110–160; BP diastolic 60–90; PULSE 73–103; RESP 16–23; TEMP 98.3–101.8; O2SAT 96–99
[2016-10-17] MEDS: DEXMEDETOMIDINE INJ 200 MCG in SODIUM CHLORIDE 0.9% INJ 50 ML IV SCH ×5 (00:05→23:01)
[2016-10-17] MEDS: CHLORHEXIDINE GLUCONATE 2 % 1 PACK (2 CLOTHS) TOP SCH (04:00)
[2016-10-17 04:35] LABS: HEMATOCRIT 21.9 % (35.0-46.0); MEAN CELL VOLUME 82.7 FL (80.0-100.0); MEAN CORPUSCULAR HEMOGLOBIN 28.4 PG (27.0-34.0); MEAN CORPUSCULAR HGB CONC 34.3 % (32.0-36.0); PLATELET COUNT 266 TH/MM3 (150-450); RED BLOOD COUNT 2.65 MIL/MM3 (4.00-5.30); RED CELL DISTRIBUTION WIDTH 17.9 % (11.6-17.2); REVIEW FLAG FINAL; WHITE BLOOD COUNT 6.1 TH/MM3 (4.0-11.0)
[2016-10-17 04:46] LABS: APTT (PATIENT) 71.7 SEC (24.3-30.1); INTERNATIONAL NORMALIZED RATIO 1.5 RATIO
[2016-10-17] MEDS: LEVOTHYROXINE SODIUM 200 MCG TAB PO SCH (06:28)
[2016-10-17] MEDS: QUEtiapine FUMARATE 25 MG TAB PO SCH ×3 (06:28→21:59)
[2016-10-17] MEDS: RESP: ALBUTEROL 2.5 MG/IPRATROPIUM 0.5 MG NEB (PRN) INH (08:08)
[2016-10-17] MEDS: ARTIFICIAL TEARS OPTH SOLN 15 ML BTL EACH EYE SCH ×3 (08:57→17:01)
[2016-10-17] MEDS: SODIUM CHLORIDE 0.9% FLUSH 10 ML FLUSH IVF SCH (08:57)
[2016-10-17] MEDS: BENEPROTEIN POWDER 1 PACK G-TUBE SCH ×3 (08:57→17:01)
[2016-10-17] MEDS: METOPROLOL TARTRATE 25 MG TAB G-TUBE SCH ×2 (08:57→21:59)
[2016-10-17] MEDS: SODIUM CHLORIDE 0.9% FLUSH 10 ML FLUSH IV FLUSH SCH ×2 (08:57→22:00)
[2016-10-17] MEDS: FAMOTIDINE 40 MG/5 ML LIQ 50 ML BTL NG SCH ×2 (08:58→22:00)
[2016-10-17] MEDS: CALCIUM ACETATE 667 MG CAP PO SCH (08:58)
[2016-10-17] MEDS: EUCERIN CREAM 120 GM JAR TOPICAL SCH ×2 (08:58→22:00)
[2016-10-17] MEDS: DOCUSATE SODIUM 100 MG/10 ML UDC PO SCH ×2 (09:00→21:00)
[2016-10-17 11:16] LABS: BICARBONATE 29.5 MEQ/L (21.0-32.0); POTASSIUM 3.2 MEQ/L (3.5-5.1)
--- NOTE | 2016-10-17 11:23 | HHI.NPPN ---
Subjective Complaints: Obesity, Shortness of Breath General Problems: Edema, Hypotension, Obesity Renal Failure: Acute Interval History She looks better today. Has urinated multiple times. Remains on CPAP with Precedex. (Genny Lowery) Review of Systems General General Remarks no pain (Genny Lowery) Neuro Neuro Remarks generalized muscle fasciculation (Genny Lowery) Objective Data Data 10/16/16 10/17/16 19:00 07:00 Intake Total 1198 ml 1084 ml Balance 1198 ml 1084 ml IV Total 214 ml 364 ml Tube Feeding 384 ml 720 ml Other 600 ml # Voids 2 5 # Bowel Movements 1 1 Vital Signs Date Time Temp Pulse Resp B/P Pulse Ox O2 Delivery O2 Flow Rate FiO2 10/17/16 08:05 98 45 10/17/16 08:00 98.3 76 17 128/72 98 10/17/16 08:00 45 10/17/16 07:12 50 10/17/16 07:00 98 Mechanical Ventilator 45 10/17/16 06:00 89 10/17/16 04:05 96 50 10/17/16 04:00 89 10/17/16 04:00 50 10/17/16 04:00 99.1 78 18 160/90 96 10/17/16 02:00 94 10/17/16 00:03 98 50 10/17/16 00:00 99.5 80 18 110/69 96 10/17/16 00:00 50 10/17/16 00:00 94 10/16/16 22:00 92 10/16/16 22:00 50 10/16/16 20:00 99.4 92 18 123/69 98 10/16/16 20:00 96 Mechanical Ventilator 50 10/16/16 19:48 96 50 10/16/16 18:00 83 10/16/16 16:35 97 50 10/16/16 16:00 50 10/16/16 16:00 67 10/16/16 16:00 99.3 87 124/76 94 10/16/16 14:00 119 10/16/16 12:07 97 50 10/16/16 12:00 50 10/16/16 12:00 99.3 100 26 153/81 97 10/16/16 12:00 100 (Genny Lowery) -: 10/17/16 0349 10/16/16 0506 Tubes & Lines: Perma-Cath Tubes & Lines Comment trach, PEG, rectal tube Drip Comment heparin, precedex (Genny Lowery) Physical Exam General Appearance: No Acute Distress, Comfortable, Obese Appearance Remarks awake, nods head and mouths words (Genny Lowery) Eyes Eye Exam: Pupils Equal, Pupils Reactive (Genny Lowery) Throat Throat Exam: Oral Mucosa [place] & Moist Throat Remarks trach (Genny Lowery) Neck Neck Exam: Neck Supple Neck Remarks trach (Genny Lowery) Pulmonary Resp Exam: Crackles, Rhonchi, Sputum, Diminished Breath Sounds Resp Remarks vented lung sounds course throughout (Genny Lowery) Cardiology CV Exam: Regular, Normal Sinus Rhythm, Good Perfusion (Genny Lowery) Gastrointestinal/Abdomen GI Exam: Soft, Bowel Sounds Present GI Remarks morbidly obese, + PEG (Genny Lowery) Musculoskeletal MS Exam: Joints Intact, Normal Tone (Genny Lowery) Integumentary Skin Exam: Warm, Dry, Intact (Genny Lowery) Extremeties Extremities Exam: Pedal Pulses Palpable, Moderate Edema Extremeties Remarks all four extremities (Genny Lowery) Neurologic Neuro Exam: Alert, Awake, Oriented, Moving All Extremities Neuro Remarks awake, nods head yes/no to questions (Genny Lowery) Assessment/Plan Discussed Condition With: Patient Assessment Summary: MIKE/Acute Renal Failure, Acute Tubular Necrosis, Fluid/ Volume Overload Electrolyte Assessment: Hypercalcemia, Hyponatremia Problem List: (1) Acute kidney injury Plan: ARF due to ATN HD initiated 09/20; she has been dialysis dependent on TTS schedule urine output has increased, no lcine so exact amount is unknown creatinine only minimally higher, hold HD today and reevaluate tomorrow replace potassium She has a PermCath in place await renal recovery phase continue Nepro tube feeding begin free water flushes hold phoslo due to hypercalcemia Avoid nephrotoxic agents. 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 She is requiring Precedex (3) Anemia Plan: Hb low but stable on heparin and protonix GI has evaluated (4) Pneumonia Plan: intermittent low grade fevers multidrug resistant organisms. ID following. off Zerbaxa, to be clinically monitored off Abx (5) Hypothyroidism Plan: on synthroid (6) DVT (deep venous thrombosis) Plan: in IJ after central line placement (provoked) bridge to Coumadin with Heparin , follow INR (7) Morbid obesity (8) Hypercalcemia Plan: may be due to immobility check PTH hold calcium containing phosphate binders repeat labs (Genny Lowery) Plan patient was seen and examined. Agree with above. We are holding dialysis today. Repeat labs tomorrow. (Anshu Tan MD) Problem Qualifiers (1) Pneumonia: Qualified Code: J18.9 - Pneumonia of both lungs due to infectious organism, unspecified part of lung Genny Lowery October 17, 2016 11:23 Anshu Tan MD October 17, 2016 12:31
[2016-10-17] MEDS ORDERED: POTASSIUM CHLORIDE 20 MEQ PWD PACKET PO ONE (11:30)
[2016-10-17] MEDS: HEPARIN-D5W 25,000 U/250 ML 250 ML IV SCH (13:39)
--- NOTE | 2016-10-17 14:42 | HHI.CCPN ---
Subjective Remarks/Hospital Course 56-year-old morbidly obese female brought in the emergency department in respiratory distress. She was intubated by ER attending. She has been sick for about a week with symptoms consistent with UTI. She's had fevers and chills. She's been short of breath. She's had fatigue. She has had a cough and chest pain with coughing. The family reports that she's been delirious for the last 3 days. 08/15 Patient is sedated with Diprivan, Versed, Fentanyl and intubated. CTA chest showed no PE multifocal consolidation greatest in RLL. Tmax 100.6 08/16 Patient is sedated with Diprivan and Fentanyl. Afebrile. CXR this morning showed increase consolidation. 08/17 Patient remains sedated and intubated. T:100.4 On PRVC/AC RR 18, Tv 500, IT :1.0 PEEP:10, FIO2 75% 08/18 Remains sedated and intubated. Afebrile. CXR this morning unchanged bibasilar infiltrates and effusions. 08/19 Patient was placed on rotoprone bed last night for proning sedated with Diprivan, Versed and Fentnayl in addition she is on Nimbex. On PRVC/AC RR 20, TV 400, IT:1.1, PEEP:14 and FIO2 80%. Afebrile. 08/20 Patient remains sedated and intubated. Remains on PRVC/AC mode with improvements in her oxygenation on FIO2 50% from 80% yesterday and PEEP:12. 08/21 Patient remains sedated and intubated. On PRVC/AC mode with RR 20, TV 400, IT:1.1, PEEP: 12 and FIO2 50%. Afebrile. 08/22 No acute events overnight. Remains sedated, intubated and on Nimbex.. T: 99.8. On PRVC mode with PEP: 12, FIO2 50%. CXR from yesterday showed better aeration, RLL infiltrate unchanged. 08/23 Chest x-ray worsening. Methylprednisolone taper to twice a day by pulmonary. The patient's FiO2 was found to be 100% this a.m., will continue to wean. 08/24: 1 desat episode yesterday when supine. still remains prone now. no vasopressors. sedated and paralyzed. 08/25: flolan added yesterday. fio2 down to 60%. remained supine all night. still on neuromuscular blockade. net -500cc/24h. 08/26: good diuresis. remained supine. fio2 70%. weaning flolan. remains with significant respiratory support and high peep despite 6L diuresis overnight. Cr still stable. 08/27: continues with good diuresis. net negative 3L/24h. fio2 down to 55%. flolan off. still high peep. not ready for SBT. more agitated today. Cr remains stable despite aggressive diuresis. 08/28: diuresis continues. -3.3L/24h. spiked fever overnight with a jump in wbc to 16 this AM. fio2 60%, but her pulmonary improvements have plateaued at this point. still on peep 12. 08/29: net -1.7L/24h. Cr starting to rise. still spiking fevers despite vanc/ cefepime added yesterday. wbc continues to rise. clinically appears infected, although unclear source. peep 10, fio2 60%. will likely need trach. 08/30: net +800cc, but Cr downtrending. appears clinically euvolemic. fever curve downtrending. wbc downtrending. on 40% fio2, peep 8 today. still following commands. 08/31: failed SBT after only 45 minutes yesterday. intubated for > 2 weeks at this point. will attempt to pursue trach/peg today. will continue with pulmonary strengthening. daily SBTs. 09/01 CXR showing increasing bibasilar infiltrate. Failed C Pap trial in 5 minutes due to severe tachypnea. PEG tube today. Family has not decided on trach yet 09/02: Patient febrile to 101.1, CXR increased infiltrate Tmax Tmax 101.1. Currently 9.7 left upper lung and right lower lobe. Pancultured. Cefepime added today and one dose of vancomycin. Continues to fail C Pap trial due to tachypnea and respiratory distress 09/03: Remains hypoxemic on 75% oxygen with new pneumonia. Sputum culture 09/02/16 with GNR. Family agreeable for tracheostomy but patient is not stable at this point for trach 09/04: still on 70% fio2. still hypoxic. pneumonia persists. needs trach, but too unstable at this point. 09/05: remains on 75% fio2. pseudomonas sensitivities came back resistant to carbapenems, intermediate to levaquin. still spiking fevers. not clinically improving. wbc remains elevated. 09/06: Remains on 12 of PEEP and FiO2 75%. Zosyn and tobramycin started yesterday. WBC count trending down today 11.5 from 13.1. Remains heavily sedated for ventilator synchrony. MAXIMUM TEMPERATURE 100.3 09/07: Continues to spike fever. CXR unchanged. WBC count improving. PEEP 14. FiO2 60%. Will start IV Bumex 1mg IV q12 09/09: Tolerating tube feeds at goal. Afebrile. No documented bowel movement. Currently sedated on the ventilator 09/10: Tmax 99.7. Currently 99.4. No bowel movement yesterday. None document since 09/04. Arousable on the ventilator 09/11: Tmax 102.6. Currently 100. Positive BM. Arousable on the ventilator. Tolerating tube feeds. Central line changed yesterday. Plan for bronchoscopy at 1 PM. 09/12: Tmax 100.1. Currently afebrile. Follows commands today. Wiggles toes and give thumbs up appropriately. MRI brain canceled. Tolerating tube feeding with positive BM. Tracheostomy currently planned for . 09/13: Tmax 102. Again on sedation [place] commands by wiggling toes bilaterally and giving thumbs up bilaterally appropriate. Tolerating tube feeding with positive BM. Tracheostomy planned for tomorrow with Dr. Ortega. 09/14: Low grade fever. CXR showing more prominent infiltrate on the right lower lobe and left upper lobe. WBC trending up still in normal range. Patient is on 40% FiO2 but continues to fail CPAP due to tachypnea 09/15: Remains intubated sedated, unable to wean off the vent. Plan for tracheostomy today with Dr. Ortega. Continues to have low grade fever. CXR with persistent bibasilar infiltrates 09/16: Tmax 101.1. Currently 100.7. Awake and alert. Following commands. 09/17: Afebrile. Currently on PSV trial. Tolerating tube feeds. One bowel movement. Noted decreased urine output past 48 hours. Diuretics have been discontinued. This a.m. creatinine currently pending. 09/18: Afebrile. Adequate urine output yesterday but decreased 150 past 8 hours. Tolerating tube feeds. One bowel movement. Not tolerating PSV trials today. 09/19: Tmax 100.5. Urine output picking up. Tolerating tube feeds. No bowel movement 48 hours. Not tolerating PSV trials. 09/20: Diffuse drug morbilliform exanthem noted this a.m. Tmax 100.6. Urine output around 20 cc an hour. Not tolerating PSV trials. Possibly new right pleural effusion noted on chest x-ray. Will need hemodialysis 09/21: Tmax 100.6 currently 98.7. -4 L with hemodialysis yesterday and today. FiO2 to 60%. Tolerating tube feeds. Positive BM. Still requiring sedation 09/22: Afebrile. Tolerating tube feeds. Positive BM. 30 g per kilogram per minute of propofol. Tolerated PSV trials 3 hours today 09/23 HD today with 3.5 L removal. Tolerating CPAP for 8 hours, currently 45% with RSBI 45%. 09/24 Called by RN this morning for concern for bloody BMs. Placed heparin and warfarin on hold. Serial Hgb ordered. Hgb 9.3 -->8.6 and hemodynamically unchanged. Started on protonix drip. Heme stool is negative and now RN states she is concerned about the adequacy of specimen, so sending repeat. Had asked GI to see, however further workup will not be indicated if hemoccult is negative. Tolerating PSV 05/06 09/25: heparin restarted. hemocult negative x 2. 09/26: no changes. still failing cpap trials. 09/27: Tmax 101.5. Currently 99.5. Resting on Diprivan drip at 25 mcg/kg/m. Currently tolerating tube feeding.. One bowel movement. 09/28: Hemoglobin trending downward. Transfusing 1 unit PRBCs with hemodialysis today. Currently afebrile. Appears comfortable ventilator 2 bowel movements 09/29 No events overnight. Sedated with Diprivan and on ventilator via trach. T: 99.9 For Perma Cath placement today. s/p HD yesterday with removal 4L and transfusion 1unit PRBC with HD. 09/30: Tmax 100.8. No events overnight. No bowel movement. Tolerating tube feeds. 10/01: Tmax 101.3. Currently resting in bed in no acute distress. Tolerating tube feeds. Chest x-ray revealed atelectasis. -5 L with hemodialysis yesterday. 10/02 Patient remains on ventilator via trach on PRVC/AC with PEEP: 10 and FIO2 50 %. T: 102.1 at 4 am. 10/03 Patient is off sedation on ventilator via trach. Tmax 101.2 last night. For HD today. 10/04: Tmax 101.5. Currently afebrile. Tolerating PSV trial. Hemodialysis - 4.5 L yesterday. Positive BM. New rash. Received chlorhexidine today. 10/05: Tmax 100. Currently 98.9. Positive BM. Tolerating tube feeds. Less erythematous today. Currently on dialysis 10/06: Tmax 99.9. Currently 99.7. Currently on PSV trial 09/12 @ 45%. Tolerating tube feed. Positive bowel movement 10/07: Tmax 99.8. currently psv 10/8/40%. has not been out of bed in weeks due to critical illness. needs to be mobilized. still no placement plan. Subjective 10/08: Tmax 100.4. on t-piece currently. tolerated psv yesterday. have ordered specialty chair and currently awaiting it to arrive. 10/09 Patient remains on ventilator via trach, T:99.9 on no sedation. 10/10 No acute events overnight. For HD today on heparin drip. T:99.8, tolerating tube feeds. 10/11 No events overnight. s/p HD yesterday with removal 3.5L. Tmax 100.5. Tolerating CPAP on PS 10, PEEP: 5 and FIO2 40%. 10/12: Patient receiving hemodialysis today. Tolerating CPAP. Very weakly following commands in all 4 extremities 10/13: 6 hours of T piece yesterday. Currently on TPs and following commands slightly better today. 10/14: No acute events reported overnight. Remains on CPAP on the vent. Getting hemodialysis now 10/15: Tachypneic today 35-38 breath per min, maintaining O2 sat. No fever. CXR unchanged. PS increased to 18. Will check ABG 10/16: Awake and alert, remains on mechanical ventilation via tracheostomy. Daily C Pap trials as tolerated. 10/17: Awake and alert. On mechanical ventilation via tracheostomy. Daily C Pap trials ongoing. Objective Vital Signs Date Time Temp Pulse Resp B/P Pulse Ox O2 Delivery O2 Flow Rate FiO2 10/17/16 12:53 45 10/17/16 12:00 102 10/17/16 12:00 98.7 143/79 96 10/17/16 08:00 17 10/17/16 07:00 Mechanical Ventilator 10/14/16 13:05 7.00 Intake and Output 10/16/16 10/16/16 10/16/16 07:59 15:59 23:59 Intake Total 715 ml 1198 ml 524 ml Balance 715 ml 1198 ml 524 ml Result Diagram: 10/17/16 0349 10/17/16 0937 Imaging Last Impressions Chest X-Ray 10/09/16 0600 Signed Impressions: Service Date/Time: Sunday, October 09, 2016 04:49 - CONCLUSION: Mild hazy opacity at the lung bases. This appears improved on the right. Scotty Huynh MD Catheter Placement X-Ray 09/29/16 1223 Signed Impressions: Service Date/Time: Thursday, September 29, 2016 12:31 - CONCLUSION: Vas-Cath to PermCath exchange as detailed above. Taco Haas Jr., MD Renal Ultrasound 09/17/16 0000 Signed Impressions: Service Date/Time: Saturday, September 17, 2016 13:31 - CONCLUSION: Negative renal sonogram. Taco Davidson MD Upper Extremity Ultrasound 09/14/16 0000 Signed Impressions: Service Date/Time: August 08:32 - CONCLUSION: There is thrombus within the left subclavian and internal jugular veins. Danyel Escalante MD Lower Extremity Ultrasound 09/13/16 0000 Signed Impressions: Service Date/Time: Tuesday, September 13, 2016 22:33 - CONCLUSION: Normal examination. Leonides Mason MD Liver Ultrasound 09/08/16 0000 Signed Impressions: Service Date/Time: Thursday, September 08, 2016 08:45 - CONCLUSION: 1. Cholelithiasis with distended gallbladder. However, there are no associated findings present to diagnose acute cholecystitis. If there is persistent clinical concern for acute cholecystitis could evaluate for cystic duct obstruction with hepatobiliary scintigraphy. 2. Hepatomegaly with very heterogeneous echotexture and steatosis. Dejan Allison MD Gall Bladder Ultrasound 08/29/16 0000 Signed Impressions: Service Date/Time: Monday, August 29, 2016 15:21 - CONCLUSION: 1. Hepatomegaly with heterogeneous echotexture throughout the liver. 2. There is a large echogenic area near the neck of the gallbladder suggestive of a stone, but despite its large size, demonstrates no acoustic shadowing in any of the views. Taco Davidson MD CT Angiography 08/15/16 0000 Signed Impressions: Service Date/Time: Monday, August 15, 2016 02:33 - CONCLUSION: 1. No evidence for pulmonary embolism. 2. Multifocal consolidation greatest in the right lower lobe and associated adenopathy. Terry Estrada MD Objective Remarks GENERAL: 56 yo female currently tachypneic on CPAP SKIN: Warm and dry. Skin is flaky. Noted stage I to 2 decubitus ulcer\coccyx and back covered with Mepilex HEAD: Normocephalic. EYES: No scleral icterus. No injection or drainage. NECK: Neck is obese. Right subclavian hemodialysis catheters clean dry and intact. Tracheostomy is clean dry and intact CARDIOVASCULAR: RRR. sinus by tele. RESPIRATORY: Diminished breath sounds throughout due to body habitus. Tachypneic today with a recent soft crackles evident GASTROINTESTINAL: Abdomen obese, soft, non-tender, hypoactive active bowel sounds. G-tube is clean dry and intact MUSCULOSKELETAL: 1+ edema BUE. Neuro: Awake, makes eye contact and nods to questions. Following commands moving upper and lower extremity spontaneously, though still very weak. A/P Problem List: (1) ARDS (adult respiratory distress syndrome) ICD Code: J80 Status: Acute (2) CHF (congestive heart failure) ICD Code: I50.9 Status: Acute (3) Respiratory failure ICD Code: J96.90 Status: Acute (4) Pneumonia ICD Code: J18.9 Status: Acute Assessment and Plan Neuro/Psych: Acute toxic metabolic encephalopathy Critical care myopathy Agitated delirium- improving. No sedation. Monitor neuro status. Fentanyl allergy Ativan 2 mg IV x1 for tachypnea On Seroquel 75 mg every 8 hours melatonin 5mg po qHS for sleep. PT/OT Pulm: Acute on chronic hypercapnic and hypoxemic respiratory failure ARDS- resolved. Pneumonia community-acquired, now with HCAP with carbapenem-resistant pseudomonas and ESBL Klebsiella VAP. Probable JOE Continue daily C Pap trials Chest x-ray is unchanged May need CTA to rule out PE if persistently tachypneic (LIJ/Subclavian DVT) Continue with vent support keep sat >90% ICU vent bundle Bronchodilator therapy every 6 hours and as needed Pulm has followed- Dr. Beck Gen surgery Dr. Ortega s/p s tracheostomy 09/15 Pulm toilet, trach care Hold off placing on TPs today CV: Hypertension Dyslipidemia Elevated troponin - likely strain On Lopressor 50mg Q12 monitor HR and BP keep MAP>65mmHg Echo 08/14 showed EF 65-70% mild AR/TR On Pravachol 20 mg a night for dyslipidemia Renal/: Acute kidney injury - requiring hemodialysis Dr. Tan -nephrology following. Hemodialysis Sunday//Sunday MIKE: ATN from sepsis syndrome and diminished renal perfusion; also aminoglycoside induced nephrotoxicity likely also contributing; possibly AIN -> per nephrology note Urine eosinophils negative. Renal ultrasound revealed no hydronephrosis Monitor renal function, I/O's, avoid nephrotoxins. GI: Elevated transaminases Cholelithiasis On TF Nepro's 45 cc an hour and beneprotein 2 packs 3 times a day s/p PEG placement 09/01/[address] Ritter Pepcid 10mg BID GI prophylaxis Having BM US liver: Fatty liver and cholelithiasis. Repeat 09/08 revealed cholelithiasis with no acute signs of cholecystitis. Recommend a HIDA scan if indicated ID: Pseudomonas pneumonia Funguria, Maribell glabrata and parapsilosis. Continue with abx ([id number]). ID following. Pertinent cultures blood and sputum cx 08/15- NG strep pneumonia and Legionella urinary Ag negative Blood cultures 08/28: NGTD C Diff negative 08/28. Lines changed 08/28. Sputum 08/30 - Pseudomonas Sputum 09/02 PSAE, resistant to carbapenem, intermediate to Levaquin. 09/07 - urine -Maribell Guilliermondii 09/07 - blood cultures 2 - no growth 09/09 - urine -strep viridans, Maribell parapsilosis 09/10 - blood cultures 2 -no growth 09/11 - broch washings -no growth to date 09/12 - urine -Maribell glabrata and parapsilosis 09/16 - blood cultures 2 - pending 09/16 - sputum -no growth 09/16 - urine -Maribell glabrata and parapsilosis 10/02 - blood cultures 2 - staph epi 10/02 - urine - ESBL positive Klebsiella 10/04 - blood cultures 2 - pending 10/05 - blood cultures 2 - pending Zosyn previously discontinued secondary to rash Heme: Left IJ/subclavian nonocclusive thrombus Peripheral smear with leukoerythroblastosis - likely reactive Monitor CBC, s/p transfusion 1unit PRBC with HD 09/29 INR: 1.4 10/14, pharmacy dosing. IV Heparin started 10/14 due to subtherapeutic INR PTT therapeutic Endo: Diabetes mellitus Hypothyroidism on SSI (medium scale) for glycemic control On Synthroid 200mcg daily. TSH 1.37 GI prophylaxis-Protonix 40mg Q12 DVT - IV heparin until therapeutic on Coumadin Lines: Peripheral IV. - PEG 09/01/16 - Trach 09/15 - Right Permacath placed 09/29 Loree Marinelli, daughter (HCP): [phone] Rony Marinelli, significant other: [phone] Problem Qualifiers (1) CHF (congestive heart failure): Qualified Code: I50.9 - Acute congestive heart failure, unspecified congestive heart failure type (2) Respiratory failure: Qualified Code: J96.02 - Acute respiratory failure with hypercapnia (3) Pneumonia: Qualified Code: J18.9 - Pneumonia of both lungs due to infectious organism, unspecified part of lung Pal Uribe MD October 17, 2016 14:42
[2016-10-17] MEDS ORDERED: WARFARIN SOD 10 MG TAB PO ONE (16:00)
--- NOTE | 2016-10-17 20:09 | HHI.PR ---
Subjective Remarks Back on Vent support and on A/C rate 14 ,FIO2 50%. PEEP +5. Tolerated CPAP for 1 hr. Seems tired . Objective Vital Signs Date Time Temp Pulse Resp B/P Pulse Ox O2 Delivery O2 Flow Rate FiO2 10/17/16 18:00 100 10/17/16 16:15 98 50 10/17/16 16:00 50 10/17/16 16:00 98.6 87 23 115/60 97 10/17/16 16:00 87 10/17/16 14:00 96 10/17/16 12:53 45 10/17/16 12:00 102 10/17/16 12:00 45 10/17/16 12:00 98.7 88 143/79 96 10/17/16 11:40 99 45 10/17/16 10:00 73 10/17/16 08:05 98 45 10/17/16 08:00 78 10/17/16 08:00 98.3 76 17 128/72 98 10/17/16 08:00 45 10/17/16 07:12 50 10/17/16 07:00 98 Mechanical Ventilator 45 10/17/16 06:00 89 10/17/16 04:05 96 50 10/17/16 04:00 89 10/17/16 04:00 50 10/17/16 04:00 99.1 78 18 160/90 96 10/17/16 02:00 94 10/17/16 00:03 98 50 10/17/16 00:00 99.5 80 18 110/69 96 10/17/16 00:00 50 10/17/16 00:00 94 10/16/16 22:00 92 10/16/16 22:00 50 I/O 10/16/16 10/16/16 10/16/16 10/17/16 10/17/16 10/17/16 07:00 15:00 23:00 07:00 15:00 23:00 Intake Total 715 ml 1198 ml 524 ml 560 ml 782 ml Balance 715 ml 1198 ml 524 ml 560 ml 782 ml IV Total 306 ml 214 ml 164 ml 200 ml 210 ml Tube Feeding 349 ml 384 ml 360 ml 360 ml 372 ml Other 60 ml 600 ml 200 ml # Voids 1 2 2 3 2 # Bowel Movements 1 1 1 2 Result Diagram: 10/17/16 0349 10/17/16 0937 Objective Remarks This is an obese middle-aged white female who is responsive and cooperative HEENT: Head normocephalic.throat clear Neck: No bruits, no thyroid enlargement, no lymphadenopathy. Chest: Decreased breath sounds. Occ wheeze. Few Basal crackles. Heart: Heart sounds were regular. S1-S2 no murmur, no S3. Abdomen: Soft, benign. No masses, or tenderness. Bowel sounds are active. Extremities:min edema . Neuro :Moves all limbs. Awake . Assessment and Plan Assessment and Plan IMPRESSION 1. Acute hypercapnic respiratory failure.Resolving 2. Pulmonary edema. 3. Drug rash 4. Obstructive sleep apnea syndrome 5. Hypertension 6. Hypothyroidism. 7. MIKE Plan : 1. Cont on vent support and wean rate to 12 and FIO2 to 45 % 2. Trach toilet and suctioning. 3. Nebs qid , duoneb. 4. Reduce sedation 5. Antibiotics per ID 6. PT and OT 7. Tube feeds at 50 CC 8. CBC,BMP in am Abimael Beck MD October 17, 2016 20:09
[2016-10-17] MEDS: PRAVASTATIN SOD 20 MG TAB PO SCH (21:59)
[2016-10-17] MEDS: MELATONIN 5 MG TAB PO SCH (21:59)
[2016-10-17] MEDS: ACETAMINOPHEN 325 MG TAB PO PRN (23:02)
[2016-10-18] VITALS (17 sets, daily range): BP systolic 122–163; BP diastolic 65–90; PULSE 64–116; RESP 16–20; TEMP 98.3–101; O2SAT 91–100
[2016-10-18 00:43] LABS: BACTERIA, URINE RARE /hpf; BLOOD, URINE NEG (NEG); COMMENT (UR) CATH-CULTURE IND; CULTURE IF INDICATED CATH CULTURE IND; GLUCOSE,URINE NEG (NEG); KETONE, URINE NEG (NEG); NITRITE,URINE NEG (NEG); RENAL EPITHELIAL CELLS <1 /hpf; SQUAMOUS EPITHELIAL CELL URINE 1 /hpf (0-5); URINE COLOR YELLOW (YELLW/STRAW)
--- NOTE | 2016-10-18 05:04 | RADRPT ---
EXAM DATE/TIME: 10/18/2016 04:09 [facility] COMPARISON: CHEST SINGLE AP, October 16, 2016, 3:43. INDICATIONS : Short of breath. MEDICAL HISTORY : Congestive heart failure. SURGICAL HISTORY : None. ENCOUNTER: Subsequent ACUITY: 2 months PAIN SCORE: Non-responsive. LOCATION: Bilateral chest FINDINGS: Right subclavian line is present with tip overlapping the expected region of the SVC. Tracheostomy tu be is present in satisfactory position. The examination is slightly limited due to motion artifact. T here is improvement in the aeration of right lower lobe. Slight left upper lobe infiltrate is present with prominence of the perivascular interstitial markings. CONCLUSION: Right lung base infiltrate has improved and there is questionable infiltrate left upper lobe with mil d prominence of interstitial markings. Danyel Escalante MD on October 18, 2016 at 5:01 Board Certified Radiologist. This report was verified electronically.
[2016-10-18 05:38] LABS: HEMATOCRIT 22.3 % (35.0-46.0); MEAN CELL VOLUME 84.3 FL (80.0-100.0); MEAN CORPUSCULAR HEMOGLOBIN 27.7 PG (27.0-34.0); MEAN CORPUSCULAR HGB CONC 32.9 % (32.0-36.0); PLATELET COUNT 253 TH/MM3 (150-450); RED BLOOD COUNT 2.65 MIL/MM3 (4.00-5.30); RED CELL DISTRIBUTION WIDTH 17.9 % (11.6-17.2); REVIEW FLAG FINAL; WHITE BLOOD COUNT 9.7 TH/MM3 (4.0-11.0)
[2016-10-18 05:49] LABS: APTT (PATIENT) 54.4 SEC (24.3-30.1); INTERNATIONAL NORMALIZED RATIO 1.3 RATIO; PROTHROMBIN TIME - PATIENT 14.9 SEC (9.8-11.6)
[2016-10-18] MEDS: LEVOTHYROXINE SODIUM 200 MCG TAB PO SCH (05:58)
[2016-10-18] MEDS: QUEtiapine FUMARATE 25 MG TAB PO SCH ×3 (05:58→21:28)
[2016-10-18 05:59] LABS: BICARBONATE 30.5 MEQ/L (21.0-32.0); POTASSIUM 3.5 MEQ/L (3.5-5.1)
[2016-10-18] MEDS: HEPARIN-D5W 25,000 U/250 ML 250 ML IV SCH ×2 (06:18→19:56)
[2016-10-18] MEDS: BENEPROTEIN POWDER 1 PACK G-TUBE SCH ×3 (09:00→17:50)
[2016-10-18] MEDS: SODIUM CHLORIDE 0.9% FLUSH 10 ML FLUSH IVF SCH (09:00)
[2016-10-18] MEDS: DOCUSATE SODIUM 100 MG/10 ML UDC PO SCH ×2 (09:00→19:54)
--- NOTE | 2016-10-18 09:08 | HHI.CCPN ---
Subjective Remarks/Hospital Course 56-year-old morbidly obese female brought in the emergency department in respiratory distress. She was intubated by ER attending. She has been sick for about a week with symptoms consistent with UTI. She's had fevers and chills. She's been short of breath. She's had fatigue. She has had a cough and chest pain with coughing. The family reports that she's been delirious for the last 3 days. 08/15 Patient is sedated with Diprivan, Versed, Fentanyl and intubated. CTA chest showed no PE multifocal consolidation greatest in RLL. Tmax 100.6 08/16 Patient is sedated with Diprivan and Fentanyl. Afebrile. CXR this morning showed increase consolidation. 08/17 Patient remains sedated and intubated. T:100.4 On PRVC/AC RR 18, Tv 500, IT :1.0 PEEP:10, FIO2 75% 08/18 Remains sedated and intubated. Afebrile. CXR this morning unchanged bibasilar infiltrates and effusions. 08/19 Patient was placed on rotoprone bed last night for proning sedated with Diprivan, Versed and Fentnayl in addition she is on Nimbex. On PRVC/AC RR 20, TV 400, IT:1.1, PEEP:14 and FIO2 80%. Afebrile. 08/20 Patient remains sedated and intubated. Remains on PRVC/AC mode with improvements in her oxygenation on FIO2 50% from 80% yesterday and PEEP:12. 08/21 Patient remains sedated and intubated. On PRVC/AC mode with RR 20, TV 400, IT:1.1, PEEP: 12 and FIO2 50%. Afebrile. 08/22 No acute events overnight. Remains sedated, intubated and on Nimbex.. T: 99.8. On PRVC mode with PEP: 12, FIO2 50%. CXR from yesterday showed better aeration, RLL infiltrate unchanged. 08/23 Chest x-ray worsening. Methylprednisolone taper to twice a day by pulmonary. The patient's FiO2 was found to be 100% this a.m., will continue to wean. 08/24: 1 desat episode yesterday when supine. still remains prone now. no vasopressors. sedated and paralyzed. 08/25: flolan added yesterday. fio2 down to 60%. remained supine all night. still on neuromuscular blockade. net -500cc/24h. 08/26: good diuresis. remained supine. fio2 70%. weaning flolan. remains with significant respiratory support and high peep despite 6L diuresis overnight. Cr still stable. 08/27: continues with good diuresis. net negative 3L/24h. fio2 down to 55%. flolan off. still high peep. not ready for SBT. more agitated today. Cr remains stable despite aggressive diuresis. 08/28: diuresis continues. -3.3L/24h. spiked fever overnight with a jump in wbc to 16 this AM. fio2 60%, but her pulmonary improvements have plateaued at this point. still on peep 12. 08/29: net -1.7L/24h. Cr starting to rise. still spiking fevers despite vanc/ cefepime added yesterday. wbc continues to rise. clinically appears infected, although unclear source. peep 10, fio2 60%. will likely need trach. 08/30: net +800cc, but Cr downtrending. appears clinically euvolemic. fever curve downtrending. wbc downtrending. on 40% fio2, peep 8 today. still following commands. 08/31: failed SBT after only 45 minutes yesterday. intubated for > 2 weeks at this point. will attempt to pursue trach/peg today. will continue with pulmonary strengthening. daily SBTs. 09/01 CXR showing increasing bibasilar infiltrate. Failed C Pap trial in 5 minutes due to severe tachypnea. PEG tube today. Family has not decided on trach yet 09/02: Patient febrile to 101.1, CXR increased infiltrate Tmax Tmax 101.1. Currently 9.7 left upper lung and right lower lobe. Pancultured. Cefepime added today and one dose of vancomycin. Continues to fail C Pap trial due to tachypnea and respiratory distress 09/03: Remains hypoxemic on 75% oxygen with new pneumonia. Sputum culture 09/02/16 with GNR. Family agreeable for tracheostomy but patient is not stable at this point for trach 09/04: still on 70% fio2. still hypoxic. pneumonia persists. needs trach, but too unstable at this point. 09/05: remains on 75% fio2. pseudomonas sensitivities came back resistant to carbapenems, intermediate to levaquin. still spiking fevers. not clinically improving. wbc remains elevated. 09/06: Remains on 12 of PEEP and FiO2 75%. Zosyn and tobramycin started yesterday. WBC count trending down today 11.5 from 13.1. Remains heavily sedated for ventilator synchrony. MAXIMUM TEMPERATURE 100.3 09/07: Continues to spike fever. CXR unchanged. WBC count improving. PEEP 14. FiO2 60%. Will start IV Bumex 1mg IV q12 09/09: Tolerating tube feeds at goal. Afebrile. No documented bowel movement. Currently sedated on the ventilator 09/10: Tmax 99.7. Currently 99.4. No bowel movement yesterday. None document since 09/04. Arousable on the ventilator 09/11: Tmax 102.6. Currently 100. Positive BM. Arousable on the ventilator. Tolerating tube feeds. Central line changed yesterday. Plan for bronchoscopy at 1 PM. 09/12: Tmax 100.1. Currently afebrile. Follows commands today. Wiggles toes and give thumbs up appropriately. MRI brain canceled. Tolerating tube feeding with positive BM. Tracheostomy currently planned for . 09/13: Tmax 102. Again on sedation [place] commands by wiggling toes bilaterally and giving thumbs up bilaterally appropriate. Tolerating tube feeding with positive BM. Tracheostomy planned for tomorrow with Dr. Ortega. 09/14: Low grade fever. CXR showing more prominent infiltrate on the right lower lobe and left upper lobe. WBC trending up still in normal range. Patient is on 40% FiO2 but continues to fail CPAP due to tachypnea 09/15: Remains intubated sedated, unable to wean off the vent. Plan for tracheostomy today with Dr. Ortega. Continues to have low grade fever. CXR with persistent bibasilar infiltrates 09/16: Tmax 101.1. Currently 100.7. Awake and alert. Following commands. 09/17: Afebrile. Currently on PSV trial. Tolerating tube feeds. One bowel movement. Noted decreased urine output past 48 hours. Diuretics have been discontinued. This a.m. creatinine currently pending. 09/18: Afebrile. Adequate urine output yesterday but decreased 150 past 8 hours. Tolerating tube feeds. One bowel movement. Not tolerating PSV trials today. 09/19: Tmax 100.5. Urine output picking up. Tolerating tube feeds. No bowel movement 48 hours. Not tolerating PSV trials. 09/20: Diffuse drug morbilliform exanthem noted this a.m. Tmax 100.6. Urine output around 20 cc an hour. Not tolerating PSV trials. Possibly new right pleural effusion noted on chest x-ray. Will need hemodialysis 09/21: Tmax 100.6 currently 98.7. -4 L with hemodialysis yesterday and today. FiO2 to 60%. Tolerating tube feeds. Positive BM. Still requiring sedation 09/22: Afebrile. Tolerating tube feeds. Positive BM. 30 g per kilogram per minute of propofol. Tolerated PSV trials 3 hours today 09/23 HD today with 3.5 L removal. Tolerating CPAP for 8 hours, currently 45% with RSBI 45%. 09/24 Called by RN this morning for concern for bloody BMs. Placed heparin and warfarin on hold. Serial Hgb ordered. Hgb 9.3 -->8.6 and hemodynamically unchanged. Started on protonix drip. Heme stool is negative and now RN states she is concerned about the adequacy of specimen, so sending repeat. Had asked GI to see, however further workup will not be indicated if hemoccult is negative. Tolerating PSV 05/06 09/25: heparin restarted. hemocult negative x 2. 09/26: no changes. still failing cpap trials. 09/27: Tmax 101.5. Currently 99.5. Resting on Diprivan drip at 25 mcg/kg/m. Currently tolerating tube feeding.. One bowel movement. 09/28: Hemoglobin trending downward. Transfusing 1 unit PRBCs with hemodialysis today. Currently afebrile. Appears comfortable ventilator 2 bowel movements 09/29 No events overnight. Sedated with Diprivan and on ventilator via trach. T: 99.9 For Perma Cath placement today. s/p HD yesterday with removal 4L and transfusion 1unit PRBC with HD. 09/30: Tmax 100.8. No events overnight. No bowel movement. Tolerating tube feeds. 10/01: Tmax 101.3. Currently resting in bed in no acute distress. Tolerating tube feeds. Chest x-ray revealed atelectasis. -5 L with hemodialysis yesterday. 10/02 Patient remains on ventilator via trach on PRVC/AC with PEEP: 10 and FIO2 50 %. T: 102.1 at 4 am. 10/03 Patient is off sedation on ventilator via trach. Tmax 101.2 last night. For HD today. 10/04: Tmax 101.5. Currently afebrile. Tolerating PSV trial. Hemodialysis - 4.5 L yesterday. Positive BM. New rash. Received chlorhexidine today. 10/05: Tmax 100. Currently 98.9. Positive BM. Tolerating tube feeds. Less erythematous today. Currently on dialysis 10/06: Tmax 99.9. Currently 99.7. Currently on PSV trial 09/12 @ 45%. Tolerating tube feed. Positive bowel movement 10/07: Tmax 99.8. currently psv 10/8/40%. has not been out of bed in weeks due to critical illness. needs to be mobilized. still no placement plan. 10/08: Tmax 100.4. on t-piece currently. tolerated psv yesterday. have ordered specialty chair and currently awaiting it to arrive. 10/09 Patient remains on ventilator via trach, T:99.9 on no sedation. 10/10 No acute events overnight. For HD today on heparin drip. T:99.8, tolerating tube feeds. 10/11 No events overnight. s/p HD yesterday with removal 3.5L. Tmax 100.5. Tolerating CPAP on PS 10, PEEP: 5 and FIO2 40%. 10/12: Patient receiving hemodialysis today. Tolerating CPAP. Very weakly following commands in all 4 extremities 10/13: 6 hours of T piece yesterday. Currently on TPs and following commands slightly better today. 10/14: No acute events reported overnight. Remains on CPAP on the vent. Getting hemodialysis now 10/15: Tachypneic today 35-38 breath per min, maintaining O2 sat. No fever. CXR unchanged. PS increased to 18. Will check ABG 10/16: Awake and alert, remains on mechanical ventilation via tracheostomy. Daily C Pap trials as tolerated. 10/17: Awake and alert. On mechanical ventilation via tracheostomy. Daily C Pap trials ongoing. Subjective 10/18: Tmax 101.8 currently 98.6. Awake and alert on the ventilator. Tolerating tube feeding. Positive BM 2. Patient was pancultured blood sputum and urine overnight 10/17 Objective Vital Signs Date Time Temp Pulse Resp B/P Pulse Ox O2 Delivery O2 Flow Rate FiO2 10/18/16 08:00 50 10/18/16 08:00 98.6 64 18 123/69 100 10/17/16 20:00 Mechanical Ventilator 10/14/16 13:05 7.00 Intake and Output 10/17/16 10/17/16 10/18/16 08:00 16:00 00:00 Intake Total 560 ml 782 ml 628 ml Output Total 1 ml Balance 560 ml 782 ml 627 ml Result Diagram: 10/18/16 0449 10/18/16 0449 Other Results Microbiology Date/Time Procedure Status Source Growth 10/17/16 23:15 Urine Culture Received Urine Catheterized Urine Pending 10/17/16 23:15 Gram Stain Received Sputum Endotracheal Pending 10/17/16 23:15 Sputum Culture Received Sputum Endotracheal Pending 10/17/16 21:35 Aerobic Blood Culture Received Blood Peripheral Pending 10/17/16 21:35 Anaerobic Blood Culture Received Blood Peripheral Pending Imaging Last Impressions Chest X-Ray 10/18/16 0600 Signed Impressions: Service Date/Time: Tuesday, October 18, 2016 04:09 - CONCLUSION: Right lung base infiltrate has improved and there is questionable infiltrate left upper lobe with mild prominence of interstitial markings. Danyel Escalante MD Catheter Placement X-Ray 09/29/16 1223 Signed Impressions: Service Date/Time: Thursday, September 29, 2016 12:31 - CONCLUSION: Vas-Cath to PermCath exchange as detailed above. Taco Haas Jr., MD Renal Ultrasound 09/17/16 0000 Signed Impressions: Service Date/Time: Saturday, September 17, 2016 13:31 - CONCLUSION: Negative renal sonogram. Taco Davidson MD Upper Extremity Ultrasound 09/14/16 0000 Signed Impressions: Service Date/Time: August 08:32 - CONCLUSION: There is thrombus within the left subclavian and internal jugular veins. Danyel Escalante MD Lower Extremity Ultrasound 09/13/16 0000 Signed Impressions: Service Date/Time: Tuesday, September 13, 2016 22:33 - CONCLUSION: Normal examination. Leonides Mason MD Liver Ultrasound 09/08/16 0000 Signed Impressions: Service Date/Time: Thursday, September 08, 2016 08:45 - CONCLUSION: 1. Cholelithiasis with distended gallbladder. However, there are no associated findings present to diagnose acute cholecystitis. If there is persistent clinical concern for acute cholecystitis could evaluate for cystic duct obstruction with hepatobiliary scintigraphy. 2. Hepatomegaly with very heterogeneous echotexture and steatosis. Dejan Allison MD Gall Bladder Ultrasound 08/29/16 0000 Signed Impressions: Service Date/Time: Monday, August 29, 2016 15:21 - CONCLUSION: 1. Hepatomegaly with heterogeneous echotexture throughout the liver. 2. There is a large echogenic area near the neck of the gallbladder suggestive of a stone, but despite its large size, demonstrates no acoustic shadowing in any of the views. Taco Davidson MD CT Angiography 08/15/16 0000 Signed Impressions: Service Date/Time: Monday, August 15, 2016 02:33 - CONCLUSION: 1. No evidence for pulmonary embolism. 2. Multifocal consolidation greatest in the right lower lobe and associated adenopathy. Terry Estrada MD Objective Remarks GENERAL: 56 yo female currently on CPAP via tracheostomy distress SKIN: Warm and dry. Skin is flaky. Noted stage I to 2 decubitus ulcer\coccyx and back covered with Mepilex HEAD: Normocephalic. Atraumatic EYES: No scleral icterus. No injection or drainage. NECK: Neck is obese. Right subclavian hemodialysis catheters clean dry and intact. Tracheostomy site is clean dry and intact CARDIOVASCULAR: RRR. S1, S2. No S4. Without murmur RESPIRATORY: Diminished breath sounds throughout due to body habitus. GASTROINTESTINAL: Abdomen obese, soft, non-tender, hypoactive active bowel sounds. G-tube is clean dry and intact MUSCULOSKELETAL: 1+ edema BUE. Neuro: Awake, makes eye contact and nods to questions. Following commands moving upper and lower extremity spontaneously, though still very weak. A/P Problem List: (1) ARDS (adult respiratory distress syndrome) ICD Code: J80 Status: Acute (2) CHF (congestive heart failure) ICD Code: I50.9 Status: Acute (3) Respiratory failure ICD Code: J96.90 Status: Acute (4) Pneumonia ICD Code: J18.9 Status: Acute Assessment and Plan Neuro/Psych: Acute toxic metabolic encephalopathy Critical care myopathy Agitated delirium- improving. Minimize sedation Monitor neuro status. Fentanyl allergy On Seroquel 75 mg every 8 hours for agitation melatonin 5mg po qHS for insomnia Acetaminophen for fever/pain Pulm: Acute on chronic hypercapnic and hypoxemic respiratory failure ARDS- resolved. Pneumonia community-acquired, now with HCAP with carbapenem-resistant pseudomonas and ESBL Klebsiella VAP. Probable JOE Continue daily C Pap trials tracheostomy Chest x-ray revealed left upper lobe infiltrative right lower lobe infiltrate Continue with vent support keep sat >92% ICU vent bundle Bronchodilator therapy every 6 hours and albuterol every 2 hours as needed Pulm has followed- Dr. Beck Gen surgery Dr. Ortega s/p s tracheostomy 09/15 Pulm toilet, trach care T piece as tolerated CV: Hypertension Dyslipidemia Elevated troponin - likely strain On Lopressor 50mg Q12 monitor HR and BP keep MAP>65mmHg Echo 08/14 showed EF 65-70% mild AR/TR On Pravachol 20 mg a night for dyslipidemia Renal/: Acute kidney injury - requiring hemodialysis Dr. Tan -nephrology following. Hemodialysis Sunday//Sunday MIKE: ATN from sepsis syndrome and diminished renal perfusion; also aminoglycoside induced nephrotoxicity likely also contributing; possibly AIN -> per nephrology note Urine eosinophils negative. Renal ultrasound revealed no hydronephrosis Monitor renal function, I/O's, avoid nephrotoxins. GI: Elevated transaminases Cholelithiasis On TF Nepro's 45 cc an hour and Beneprotein 2 packs 3 times a day s/p PEG placement 09/01/[address] Ritter Pepcid 10mg BID GI prophylaxis Having BM US liver: Fatty liver and cholelithiasis. Repeat 09/08 revealed cholelithiasis with no acute signs of cholecystitis. ID: Pseudomonas pneumonia Funguria, Maribell glabrata and parapsilosis. Currently off all antibiotics ID following. Pertinent cultures blood and sputum cx 08/15- NG strep pneumonia and Legionella urinary Ag negative Blood cultures 08/28: NGTD C Diff negative 08/28. Lines changed 08/28. Sputum 08/30 - Pseudomonas Sputum 09/02 PSAE, resistant to carbapenem, intermediate to Levaquin. 09/07 - urine -Maribell Guilliermondii 09/07 - blood cultures 2 - no growth 09/09 - urine -strep viridans, Maribell parapsilosis 09/10 - blood cultures 2 -no growth 09/11 - broch washings -no growth to date 09/12 - urine -Maribell glabrata and parapsilosis 09/16 - blood cultures 2 - pending 09/16 - sputum -no growth 09/16 - urine -Maribell glabrata and parapsilosis 10/02 - blood cultures 2 - staph epi 10/02 - urine - ESBL positive Klebsiella 10/04 - blood cultures 2 -no growth 10/05 - blood cultures 2 -no growth 10/17 - blood cultures - pending 10/17 - sputum - pending 10/17 - urine - pending Zosyn previously discontinued secondary to rash Heme: Left IJ/subclavian nonocclusive thrombus Peripheral smear with leukoerythroblastosis - likely reactive Monitor CBC, s/p transfusion 1unit PRBC with HD 09/29 INR: 13 10/14, pharmacy dosing currently at 12 mg daily. IV Heparin started due to subtherapeutic INR PTT therapeutic Endo: Diabetes mellitus Hypothyroidism on SSI (medium scale) for glycemic control On Synthroid 200mcg daily. TSH 1.37 GI prophylaxis-Protonix 40mg Q12 DVT - IV heparin until therapeutic on Coumadin Lines: Peripheral IV. - PEG 09/01/16 - Trach 09/15 - Right Permacath placed 09/29 Loree Marinelli, daughter (HCP): [phone] Rony Marinelli, significant other: [phone] Problem Qualifiers (1) CHF (congestive heart failure): Qualified Code: I50.9 - Acute congestive heart failure, unspecified congestive heart failure type (2) Respiratory failure: Qualified Code: J96.02 - Acute respiratory failure with hypercapnia (3) Pneumonia: Qualified Code: J18.9 - Pneumonia of both lungs due to infectious organism, unspecified part of lung Fadi Villa MD October 18, 2016 09:07
--- NOTE | 2016-10-18 09:27 | HHI.NPPN ---
Subjective Complaints: Obesity, Shortness of Breath General Problems: Edema, Hypotension, Obesity Renal Failure: Acute Interval History Renal function is stable. She is making a fair amount of urine. (Genny Lowery) Review of Systems General General Remarks no pain (Genny Lowery) Neuro Neuro Remarks generalized muscle fasciculation (Genny Lowery) Objective Data Data 10/17/16 10/18/16 19:00 07:00 Intake Total 782 ml 1165 ml Output Total 1 ml Balance 782 ml 1164 ml IV Total 210 ml 451 ml Tube Feeding 372 ml 714 ml Other 200 ml Stool Total 1 ml # Voids 2 5 # Bowel Movements 2 Vital Signs Date Time Temp Pulse Resp B/P Pulse Ox O2 Delivery O2 Flow Rate FiO2 10/18/16 08:00 50 10/18/16 08:00 98.6 64 18 123/69 100 10/18/16 08:00 74 10/18/16 06:00 67 10/18/16 04:25 99 50 10/18/16 04:00 98.6 67 18 128/72 96 10/18/16 04:00 67 10/18/16 04:00 50 10/18/16 02:00 67 10/18/16 00:00 67 10/18/16 00:00 101.0 98 16 122/65 98 10/18/16 00:00 50 10/17/16 23:35 99 50 10/17/16 22:00 75 10/17/16 21:13 99 50 10/17/16 20:00 103 10/17/16 20:00 Mechanical Ventilator 50 10/17/16 20:00 101.8 103 16 135/73 96 10/17/16 20:00 50 10/17/16 18:00 100 10/17/16 16:15 98 50 10/17/16 16:00 50 10/17/16 16:00 98.6 87 23 115/60 97 10/17/16 16:00 87 10/17/16 14:00 96 10/17/16 12:53 45 10/17/16 12:00 102 10/17/16 12:00 45 10/17/16 12:00 98.7 88 143/79 96 10/17/16 11:40 99 45 10/17/16 10:00 73 (Genny Lowery) -: 10/18/16 0449 10/18/16 0449 Microbiology 10/17/16 Aerobic Blood Culture, Received Pending 10/17/16 Anaerobic Blood Culture, Received Pending 10/17/16 Aerobic Blood Culture, Received Pending 10/17/16 Anaerobic Blood Culture, Received Pending 10/17/16 Gram Stain, Received Pending 10/17/16 Sputum Culture, Received Pending 10/17/16 Urine Culture, Received Pending Imaging Last 72 hours Impressions Chest X-Ray 10/18/16 0600 Signed Impressions: Service Date/Time: Tuesday, October 18, 2016 04:09 - CONCLUSION: Right lung base infiltrate has improved and there is questionable infiltrate left upper lobe with mild prominence of interstitial markings. Danyel Escalante MD Chest X-Ray 10/16/16 0600 Signed Impressions: Service Date/Time: Sunday, October 16, 2016 03:43 - CONCLUSION: No appreciable change. Danyel Escalante MD Tubes & Lines: Perma-Cath Tubes & Lines Comment trach, PEG, rectal tube Drip Comment heparin, precedex intermittently (Genny Lowery) Physical Exam General Appearance: No Acute Distress, Comfortable, Obese Appearance Remarks awake, nods head and mouths words (Genny Lowery) Eyes Eye Exam: Pupils Equal, Pupils Reactive (Genny Lowery) Throat Throat Exam: Oral Mucosa Dexter & Moist Throat Remarks trach (Genny Lowery) Neck Neck Exam: Neck Supple Neck Remarks trach (Genny Lowery) Pulmonary Resp Exam: Crackles, Rhonchi, Sputum, Diminished Breath Sounds Resp Remarks vented lung sounds course throughout (Genny Lowery) Cardiology CV Exam: Regular, Normal Sinus Rhythm, Good Perfusion (Genny Lowery) Gastrointestinal/Abdomen GI Exam: Soft, Bowel Sounds Present GI Remarks morbidly obese, + PEG (Genny Lowery) Musculoskeletal MS Exam: Joints Intact, Normal Tone (Genny Lowery) Integumentary Skin Exam: Warm, Dry, Intact (Genny Lowery) Extremeties Extremities Exam: Pedal Pulses Palpable, Moderate Edema Extremeties Remarks all four extremities (Genny Lowery) Neurologic Neuro Exam: Alert, Awake, Oriented, Moving All Extremities Neuro Remarks awake, nods head yes/no to questions (Genny Lowery) VTE Prophylaxis Meds: Heparin, Coumadin (Genny Lowery) Assessment/Plan Discussed Condition With: Patient Assessment Summary: MIKE/Acute Renal Failure, Acute Tubular Necrosis, Fluid/ Volume Overload Electrolyte Assessment: Hypercalcemia, Hyponatremia Problem List: (1) Acute kidney injury Plan: ARF due to ATN HD initiated 09/20; she was dialysis dependent, last treatment 10/14 appears to be in renal recovery continue to hold dialysis, follow renal indices K has normalized remove permcath in next few days if trend continues continue Nepro tube feeding with free water flushes phosphorus is lower, phos lo is on hold due to hypercalcemia Avoid nephrotoxic agents. Avoid IVF daily renal panel (2) ARDS (adult respiratory distress syndrome) Plan: s/p trach placement continue Ventilator support, on daily CPAP [employer] managing. She is requiring Precedex intermittently attempt to convert to T piece (3) Anemia Plan: Hb low but stable on heparin and protonix GI has evaluated (4) Pneumonia Plan: intermittent low grade fevers multidrug resistant organisms. ID following. off Zerbaxa, to be clinically monitored off Abx (5) Hypothyroidism Plan: on synthroid (6) DVT (deep venous thrombosis) Plan: in IJ after central line placement (provoked) bridge to Coumadin with Heparin , follow INR not therapeutic at this time (7) Morbid obesity (8) Hypercalcemia Plan: improving, likely due to immobility PTH appropriately low hold calcium containing phosphate binders Plan (Genny Lowery) Plan patient was seen and examined. Renal function is stable, no need for dialysis. Will have PermCath removed in the next few days. (Anshu Tan MD) Problem Qualifiers (1) Pneumonia: Qualified Code: J18.9 - Pneumonia of both lungs due to infectious organism, unspecified part of lung Genny Lowery October 18, 2016 09:27 Anshu Tan MD October 18, 2016 10:20
[2016-10-18] MEDS: METOPROLOL TARTRATE 25 MG TAB G-TUBE SCH ×2 (10:37→19:54)
[2016-10-18] MEDS: SODIUM CHLORIDE 0.9% FLUSH 10 ML FLUSH IV FLUSH SCH ×2 (10:37→19:54)
[2016-10-18] MEDS: ARTIFICIAL TEARS OPTH SOLN 15 ML BTL EACH EYE SCH ×3 (10:38→17:50)
[2016-10-18] MEDS: FAMOTIDINE 40 MG/5 ML LIQ 50 ML BTL NG SCH ×2 (10:38→21:00)
[2016-10-18] MEDS: EUCERIN CREAM 120 GM JAR TOPICAL SCH ×2 (10:38→19:54)
[2016-10-18] MEDS ORDERED: WARFARIN SOD 6 MG TAB PO SCH (16:00)
[2016-10-18] MEDS: RESP: ALBUTEROL 2.5 MG/IPRATROPIUM 0.5 MG NEB (SCH) NEB ×2 (16:14→21:26)
--- NOTE | 2016-10-18 16:36 | HHI.IDPN ---
Subjective Subjective Remarks Patient is admitted to ICU with respiratory failure, CHF, pneumonia, probable underlying COPD. Patient was intubated and placed on mechanical ventilation. NOt weaning and had trach done 09/15. Has been having fevers. s/p Rx for PSAE PNA and C glabrata UTI. ID reconsulted for fever. Delayed entry. Overnight events reviewed. Fevers overnight but clinically stable. HD on hold. Vascath still in place. Trach and PEG. No diarrhea Sitting in bed chair. Antibiotics None Lines Line sites with no e.o infection. Past Medical History reviewed. Allergies: Coded Allergies: Fentanyl (Verified Adverse Reaction, Severe, rash, 09/21/16) *MDRO Multi-Drug Resistant Organism (Verified Adverse Reaction, Unknown, ) ESBL (urine & sputum)-10/02/16 Objective . Vital Signs Date Time Temp Pulse Resp B/P Pulse Ox O2 Delivery O2 Flow Rate FiO2 10/18/16 16:00 113 10/18/16 16:00 98.7 112 18 152/79 95 10/18/16 14:00 111 10/18/16 12:00 95 10/18/16 12:00 98.5 85 16 163/90 91 10/18/16 10:27 98 T-piece 5.00 40 10/18/16 10:00 90 10/18/16 10:00 91 T-Piece 6.00 28 10/18/16 09:19 98 45 10/18/16 09:19 45 10/18/16 08:00 50 10/18/16 08:00 98.6 64 18 123/69 100 10/18/16 08:00 74 10/18/16 06:00 67 10/18/16 04:25 99 50 10/18/16 04:00 98.6 67 18 128/72 96 10/18/16 04:00 67 10/18/16 04:00 50 10/18/16 02:00 67 10/18/16 00:00 67 10/18/16 00:00 101.0 98 16 122/65 98 10/18/16 00:00 50 10/17/16 23:35 99 50 10/17/16 22:00 75 10/17/16 21:13 99 50 10/17/16 20:00 103 10/17/16 20:00 Mechanical Ventilator 50 10/17/16 20:00 101.8 103 16 135/73 96 10/17/16 20:00 50 10/17/16 18:00 100 10/17/16 10/17/16 10/18/16 15:00 23:00 07:00 Intake Total 782 ml 628 ml 537 ml Output Total 1 ml Balance 782 ml 627 ml 537 ml IV Total 210 ml 273 ml 178 ml Tube Feeding 372 ml 355 ml 359 ml Other 200 ml Stool Total 1 ml # Voids 2 2 3 # Bowel Movements 2 . Laboratory Tests Test 10/17/16 10/18/16 03:49 04:49 White Blood Count 6.1 TH/MM3 9.7 TH/MM3 Red Blood Count 2.65 MIL/MM3 2.65 MIL/MM3 Hemoglobin 7.5 GM/DL 7.4 GM/DL Hematocrit 21.9 % 22.3 % Mean Corpuscular Volume 82.7 FL 84.3 FL Mean Corpuscular Hemoglobin 28.4 PG 27.7 PG Mean Corpuscular Hemoglobin 34.3 % 32.9 % Concent Red Cell Distribution Width 17.9 % 17.9 % Platelet Count 266 TH/MM3 253 TH/MM3 Mean Platelet Volume 7.4 FL 7.5 FL Laboratory Tests Test 10/17/16 10/17/16 10/18/16 09:37 14:51 04:49 Sodium Level 139 MEQ/L 141 MEQ/L Potassium Level 3.2 MEQ/L 3.5 MEQ/L Chloride Level 96 MEQ/L 98 MEQ/L Carbon Dioxide Level 29.5 MEQ/L 30.5 MEQ/L Anion Gap 14 MEQ/L 13 MEQ/L Blood Urea Nitrogen 79 MG/DL 79 MG/DL Creatinine 2.72 MG/DL 2.75 MG/DL Estimat Glomerular Filtration 18 ML/MIN 18 ML/MIN Rate Random Glucose 125 MG/DL 136 MG/DL Calcium Level 10.5 MG/DL 10.3 MG/DL Phosphorus Level 5.7 MG/DL 5.3 MG/DL Albumin 3.5 GM/DL 3.3 GM/DL Parathyroid Hormone (Intact) 4.4 PG/ML Microbiology Date/Time Procedure Status Source Growth 10/17/16 21:32 Aerobic Blood Culture - Preliminary Resulted Blood Peripheral NO GROWTH IN 1 DAY 10/17/16 21:32 Anaerobic Blood Culture - Preliminary Resulted Blood Peripheral NO GROWTH IN 1 DAY 10/17/16 21:35 Aerobic Blood Culture - Preliminary Resulted Blood Peripheral NO GROWTH IN 1 DAY 10/17/16 21:35 Anaerobic Blood Culture - Preliminary Resulted Blood Peripheral NO GROWTH IN 1 DAY 10/17/16 23:15 Gram Stain - Final Resulted Sputum Endotracheal 10/17/16 23:15 Sputum Culture Resulted Sputum Endotracheal Pending 10/17/16 23:15 Urine Culture - Preliminary Resulted Urine Catheterized Urine RESULTS PENDING Imaging Chest X-Ray 09/15/16 0600 Signed Impressions: Service Date/Time: Thursday, September 15, 2016 03:52 - CONCLUSION: Persistent and unchanged bibasilar infiltrates. Taco Haas Jr., MD Chest X-Ray 09/15/16 0000 Signed Impressions: Service Date/Time: Thursday, September 15, 2016 11:00 - CONCLUSION: Placement of tracheostomy tube otherwise not changed. Danyel Escalante MD Liver Ultrasound 09/08/16 0000 Signed Impressions: Service Date/Time: Thursday, September 08, 2016 08:45 - CONCLUSION: 1. Cholelithiasis with distended gallbladder. However, there are no associated findings present to diagnose acute cholecystitis. If there is persistent clinical concern for acute cholecystitis could evaluate for cystic duct obstruction with hepatobiliary scintigraphy. 2. Hepatomegaly with very heterogeneous echotexture and steatosis. Dejan Allison MD Chest X-Ray 09/06/16 0000 Signed Impressions: Service Date/Time: Tuesday, September 06, 2016 11:09 - CONCLUSION: No significant change has occurred. Terry Estrada MD Gall Bladder Ultrasound 08/29/16 0000 Signed Impressions: Service Date/Time: Monday, August 29, 2016 15:21 - CONCLUSION: 1. Hepatomegaly with heterogeneous echotexture throughout the liver. 2. There is a large echogenic area near the neck of the gallbladder suggestive of a stone, but despite its large size, demonstrates no acoustic shadowing in any of the views. Taco Davidson MD CT Angiography 08/15/16 0000 Signed Impressions: Service Date/Time: Monday, August 15, 2016 02:33 - CONCLUSION: 1. No evidence for pulmonary embolism. 2. Multifocal consolidation greatest in the right lower lobe and associated adenopathy. Terry Estrada MD Physical Exam GENERAL: Morbidly obese CF patient, awake, NAD, on the vent SKIN: Has patches of redness on her trunk, and some papules in extremities HEAD: Atraumatic. Normocephalic. No temporal or scalp tenderness. EYES: Pupils equal round and reactive. No scleral icterus. Moist mucosa ENT: No nasal discharge. Dry oral mucosa NECK: Large neck. Supple. Trach in place CARDIOVASCULAR: Regular rate and rhythm RESPIRATORY: Clear to auscultation. Breath sounds equal bilaterally. GASTROINTESTINAL: Abdomen soft, obese, non-tender, nondistended. MUSCULOSKELETAL: Extremities without clubbing, cyanosis. Edema (+) NEUROLOGICAL: eyes open, did not track of focus PIV with no evidence of infection Miller in place with clear urine. Assessment & Plan Remarks Sepsis present on admission. HCAP: ESBL and very MDR PSAE Staph epidermidis: possible contaminant but will repeat HD cath culture. Morbid Obesity (BMI 45.8 kg/m2) Obstructive Sleep Apnea (supposed to be on CPAP at home and home oxygen 2L) Acute respiratory failure vent dependent. Acute metabolic encephalopathy: infection, meds. Thrombosis of cephalic vein. Renal insufficiency, HD on hold as Cr and UO improving. Recs: d/w last night and again this am. Will continue to hold off antibiotics. D.w to reassess need for Vascath hopefully remove in next day or two if no HD. Follow clinically. If fevers persist or worsening sepsis consider restarting antibiotics. Avoid nephrotoxic agents. Follow temps D/W Terri Basilio MD October 18, 2016 16:36
--- NOTE | 2016-10-18 17:38 | HHI.PR ---
Subjective Remarks Back on T Bar at 45 %. Tolerated CPAP this am. Feels better . Wants to eat Objective Vital Signs Date Time Temp Pulse Resp B/P Pulse Ox O2 Delivery O2 Flow Rate FiO2 10/18/16 16:00 113 10/18/16 16:00 98.7 112 18 152/79 95 10/18/16 14:00 111 10/18/16 12:00 95 10/18/16 12:00 98.5 85 16 163/90 91 10/18/16 10:27 98 T-piece 5.00 40 10/18/16 10:00 90 10/18/16 10:00 91 T-Piece 6.00 28 10/18/16 09:19 98 45 10/18/16 09:19 45 10/18/16 08:00 50 10/18/16 08:00 98.6 64 18 123/69 100 10/18/16 08:00 74 10/18/16 06:00 67 10/18/16 04:25 99 50 10/18/16 04:00 98.6 67 18 128/72 96 10/18/16 04:00 67 10/18/16 04:00 50 10/18/16 02:00 67 10/18/16 00:00 67 10/18/16 00:00 101.0 98 16 122/65 98 10/18/16 00:00 50 10/17/16 23:35 99 50 10/17/16 22:00 75 10/17/16 21:13 99 50 10/17/16 20:00 103 10/17/16 20:00 Mechanical Ventilator 50 10/17/16 20:00 101.8 103 16 135/73 96 10/17/16 20:00 50 10/17/16 18:00 100 I/O 10/17/16 10/17/16 10/17/16 10/18/16 10/18/16 10/18/16 07:00 15:00 23:00 07:00 15:00 23:00 Intake Total 560 ml 782 ml 628 ml 537 ml 432 ml Output Total 1 ml Balance 560 ml 782 ml 627 ml 537 ml 432 ml IV Total 200 ml 210 ml 273 ml 178 ml 212 ml Tube Feeding 360 ml 372 ml 355 ml 359 ml 220 ml Other 200 ml Stool Total 1 ml # Voids 3 2 2 3 4 # Bowel Movements 1 2 2 Result Diagram: 10/18/16 0449 10/18/16 0449 Objective Remarks This is an obese middle-aged white female who is responsive and cooperative HEENT: Head normocephalic.throat clear Neck: No bruits, no thyroid enlargement, no lymphadenopathy. Chest: Decreased breath sounds. Few Basal crackles. Heart: Heart sounds were regular. S1-S2 no murmur, no S3. Abdomen: Soft, benign. No masses, or tenderness. Bowel sounds are active. Extremities:minimal edema . Neuro :Moves all limbs. Awake . Assessment and Plan Assessment and Plan IMPRESSION 1. Acute hypercapnic respiratory failure.Resolving 2. Pulmonary edema. 3. Drug rash 4. Obstructive sleep apnea syndrome 5. Hypertension 6. Hypothyroidism. 7. MIKE Plan : 1. Cont on T Bar 45 % daytime 2. Trach toilet and suctioning. 3. Nebs qid , duoneb. 4. Place on CPAP/PSV 5/15 40 % at HS 5. Antibiotics per ID 6. PT and OT 7. Tube feeds at 50 CC 8. Swallow study and PO diet . Abimael Beck MD October 18, 2016 17:38
[2016-10-18] MEDS: MELATONIN 5 MG TAB PO SCH (19:53)
[2016-10-18] MEDS: PRAVASTATIN SOD 20 MG TAB PO SCH (19:54)
[2016-10-18] MEDS: MORPHINE SULFATE 4 MG/ML INJ IV PRN (21:28)
[2016-10-19] VITALS (18 sets, daily range): BP systolic 123–166; BP diastolic 58–98; PULSE 88–114; RESP 17–23; TEMP 98.5–99.2; O2SAT 95–100
[2016-10-19] MEDS: RESP: ALBUTEROL 2.5 MG/IPRATROPIUM 0.5 MG NEB (SCH) NEB ×4 (03:14→20:51)
[2016-10-19] MEDS: CHLORHEXIDINE GLUCONATE 2 % 1 PACK (2 CLOTHS) TOP SCH (04:00)
[2016-10-19] MEDS: LEVOTHYROXINE SODIUM 200 MCG TAB PO SCH (05:47)
[2016-10-19] MEDS: QUEtiapine FUMARATE 25 MG TAB PO SCH ×3 (05:47→22:00)
[2016-10-19 06:54] LABS: HEMATOCRIT 21.1 % (35.0-46.0); MEAN CELL VOLUME 84.1 FL (80.0-100.0); MEAN CORPUSCULAR HEMOGLOBIN 28.2 PG (27.0-34.0); MEAN CORPUSCULAR HGB CONC 33.6 % (32.0-36.0); PLATELET COUNT 282 TH/MM3 (150-450); RED BLOOD COUNT 2.51 MIL/MM3 (4.00-5.30); RED CELL DISTRIBUTION WIDTH 18.1 % (11.6-17.2); WHITE BLOOD COUNT 8.4 TH/MM3 (4.0-11.0)
[2016-10-19 07:01] LABS: APTT (PATIENT) 66.8 SEC (24.3-30.1); INTERNATIONAL NORMALIZED RATIO 1.3 RATIO; PROTHROMBIN TIME - PATIENT 14.2 SEC (9.8-11.6)
[2016-10-19 07:03] LABS: HEMO FLAGS AUTO DIFF
[2016-10-19 07:28] LABS: BICARBONATE 29.4 MEQ/L (21.0-32.0); POTASSIUM 3.2 MEQ/L (3.5-5.1)
[2016-10-19] MEDS ORDERED: POTASSIUM CHLORIDE 20 MEQ PWD PACKET PO ONE (08:45)
[2016-10-19] MEDS: METOPROLOL TARTRATE 25 MG TAB G-TUBE SCH ×2 (08:53→21:19)
[2016-10-19] MEDS: BENEPROTEIN POWDER 1 PACK G-TUBE SCH ×3 (08:54→17:10)
[2016-10-19] MEDS: SODIUM CHLORIDE 0.9% FLUSH 10 ML FLUSH IVF SCH (08:54)
[2016-10-19] MEDS: SODIUM CHLORIDE 0.9% FLUSH 10 ML FLUSH IV FLUSH SCH ×2 (08:54→21:00)
[2016-10-19] MEDS: ARTIFICIAL TEARS OPTH SOLN 15 ML BTL EACH EYE SCH ×3 (08:54→17:10)
[2016-10-19] MEDS: FAMOTIDINE 40 MG/5 ML LIQ 50 ML BTL NG SCH ×2 (08:54→21:20)
[2016-10-19] MEDS: DOCUSATE SODIUM 100 MG/10 ML UDC PO SCH ×2 (08:55→21:00)
[2016-10-19] MEDS: EUCERIN CREAM 120 GM JAR TOPICAL SCH ×2 (08:55→21:20)
[2016-10-19 09:03] LABS: BANDS 2 % (0-6); EOSINOPHILS 3 % (0-4); MYELOCYTES 3 % (0-0); NEUTROPHIL # MANUAL DIFF 5.5 TH/MM3 (1.8-7.7); POLYS (SEG NEUTROPHILS) 61 % (16-70); WBC DIFF SAMPLE 100
[2016-10-19 09:05] LABS: PLATELET ESTIMATE SMEAR NORMAL (NORMAL); PLATELET MORPHOLOGY NORMAL (NORMAL); SCAN/DIFF FINAL DIFF MANUAL
--- NOTE | 2016-10-19 09:39 | HHI.NPPN ---
Subjective Complaints: Obesity, Shortness of Breath General Problems: Edema, Hypotension, Obesity Renal Failure: Acute Interval History Vent weening continues. She did tolerate T piece yesterday. Creatinine has improved. (Genny Lowery) Review of Systems General General Remarks no pain (Genny Lowery) Neuro Neuro Remarks generalized muscle fasciculation (Genny Lowery) Objective Data Data 10/18/16 10/19/16 18:59 06:59 Intake Total 432 ml 1191 ml Balance 432 ml 1191 ml IV Total 212 ml 197 ml Tube Feeding 220 ml 674 ml Other 320 ml # Voids 4 4 # Bowel Movements 2 0 Vital Signs Date Time Temp Pulse Resp B/P Pulse Ox O2 Delivery O2 Flow Rate FiO2 10/19/16 07:45 95 40 10/19/16 06:00 93 10/19/16 04:00 98.8 90 21 139/66 96 10/19/16 04:00 90 10/19/16 02:00 88 10/19/16 01:02 100 45 10/19/16 00:00 98.6 92 17 125/67 99 10/19/16 00:00 92 10/18/16 22:00 99 10/18/16 21:24 97 45 10/18/16 20:00 98.3 116 20 159/74 92 10/18/16 20:00 116 10/18/16 19:00 92 T-Piece 28 10/18/16 18:00 115 10/18/16 16:00 113 10/18/16 16:00 98.7 112 18 152/79 95 10/18/16 14:00 111 10/18/16 12:00 95 10/18/16 12:00 98.5 85 16 163/90 91 10/18/16 10:27 98 T-piece 5.00 40 10/18/16 10:00 90 10/18/16 10:00 91 T-Piece 6.00 28 (Genny Lowery) -: 10/19/16 0512 10/19/16 0512 Imaging Last 72 hours Impressions Chest X-Ray 10/18/16 0600 Signed Impressions: Service Date/Time: Tuesday, October 18, 2016 04:09 - CONCLUSION: Right lung base infiltrate has improved and there is questionable infiltrate left upper lobe with mild prominence of interstitial markings. Danyel Escalante MD Tubes & Lines: Perma-Cath Tubes & Lines Comment trach, PEG Drip Comment heparin, (Genny Lowery BALANCE STAFF INSPECTOR) Physical Exam General Appearance: No Acute Distress, Comfortable, Obese Appearance Remarks awake, nods head and mouths words (Genny Lowery B. BALANCE STAFF INSPECTOR) Eyes Eye Exam: Pupils Equal, Pupils Reactive (Genny Lowery B. BALANCE STAFF INSPECTOR) Throat Throat Exam: Oral Mucosa [place] & Moist Throat Remarks trach (Genny Lowery B. BALANCE STAFF INSPECTOR) Neck Neck Exam: Neck Supple Neck Remarks trach (Genny Lowery. BALANCE STAFF INSPECTOR) Pulmonary Resp Exam: Crackles, Rhonchi, Sputum, Diminished Breath Sounds Resp Remarks vented lung sounds course throughout (Genny Lowery B. BALANCE STAFF INSPECTOR) Cardiology CV Exam: Regular, Normal Sinus Rhythm, Good Perfusion (Genny Lowery. BALANCE STAFF INSPECTOR) Gastrointestinal/Abdomen GI Exam: Soft, Bowel Sounds Present GI Remarks morbidly obese, + PEG (Genny Lowery B. BALANCE STAFF INSPECTOR) Musculoskeletal MS Exam: Joints Intact, Normal Tone (Genny Lowery B. BALANCE STAFF INSPECTOR) Integumentary Skin Exam: Warm, Dry, Intact (Genny Lowery BALANCE STAFF INSPECTOR) Extremeties Extremities Exam: Pedal Pulses Palpable, Moderate Edema Extremeties Remarks all four extremities (Genny Lowery. BALANCE STAFF INSPECTOR) Neurologic Neuro Exam: Alert, Awake, Oriented, Moving All Extremities Neuro Remarks awake, nods head yes/no to questions (Genny Lowery) Assessment/Plan Discussed Condition With: Patient Assessment Summary: MIKE/Acute Renal Failure, Acute Tubular Necrosis, Fluid/ Volume Overload Electrolyte Assessment: Hypercalcemia, Hyponatremia Problem List: (1) Acute kidney injury Plan: ARF due to ATN HD initiated 09/20; she was dialysis dependent, last treatment 10/14 appears to be in renal recovery continue to hold dialysis, follow renal indices replace potassium begin bumex 2 mg IV daily remove permcath in next few days if trend continues continue Nepro tube feeding with free water flushes monitor phosphorus, phoslo was stopped due to hypercalcemia Avoid nephrotoxic agents. Avoid IVF daily renal panel (2) ARDS (adult respiratory distress syndrome) Plan: s/p trach placement continue Ventilator support, on daily CPAP Documentation Nurse managing. She is requiring Precedex intermittently attempt to convert to T piece (3) Anemia Plan: Hb low but stable on heparin and protonix GI has evaluated (4) Pneumonia Plan: intermittent low grade fevers multidrug resistant organisms. ID following. off Zerbaxa, to be clinically monitored off Abx (5) Hypothyroidism Plan: on synthroid (6) DVT (deep venous thrombosis) Plan: in IJ after central line placement (provoked) bridge to Coumadin with Heparin , follow INR not therapeutic at this time (7) Morbid obesity (8) Hypercalcemia Plan: improving, likely due to immobility PTH appropriately low stop calcium containing phosphate binders (Genny Lowery) Problem List: (1) Acute kidney injury Plan: ARF due to ATN HD initiated 09/20; she was dialysis dependent, last treatment 10/14 appears to be in renal recovery continue to hold dialysis, follow renal indices replace potassium begin bumex 2 mg IV daily remove permcath in next few days if trend continues continue Nepro tube feeding with free water flushes monitor phosphorus, phoslo was stopped due to hypercalcemia Avoid nephrotoxic agents. Avoid IVF daily renal panel (2) ARDS (adult respiratory distress syndrome) Plan: s/p trach placement continue Ventilator support, on daily CPAP Documentation Nurse managing. She is requiring Precedex intermittently attempt to convert to T piece (3) Anemia Plan: Hb low but stable on heparin and protonix GI has evaluated (4) Pneumonia Plan: intermittent low grade fevers multidrug resistant organisms. ID following. off Zerbaxa, to be clinically monitored off Abx (5) Hypothyroidism Plan: on synthroid (6) DVT (deep venous thrombosis) Plan: in IJ after central line placement (provoked) bridge to Coumadin with Heparin , follow INR not therapeutic at this time (7) Morbid obesity (8) Hypercalcemia Plan: improving, likely due to immobility PTH appropriately low stop calcium containing phosphate binders Plan patient was seen and examined. No need for dialysis. Started on Bumex. PermCath can be removed tomorrow if renal function is stable. (Anshu Tan MD) Problem Qualifiers (1) Pneumonia: Qualified Code: J18.9 - Pneumonia of both lungs due to infectious organism, unspecified part of lung Genny Lowery October 19, 2016 09:39 Anshu Tan MD October 19, 2016 16:27
[2016-10-19] MEDS ORDERED: BUMETANIDE INJ 1 MG/4 ML VIAL IV PUSH SCH (09:45)
--- NOTE | 2016-10-19 12:46 | HHI.PR ---
Subjective Remarks Back on T Bar at 45 %. Tolerated it for 4 hrs. Feels better . Wants to eat and wants water. Objective Vital Signs Date Time Temp Pulse Resp B/P Pulse Ox O2 Delivery O2 Flow Rate FiO2 10/19/16 10:30 96 T-piece 7.00 40 10/19/16 07:45 95 40 10/19/16 06:00 93 10/19/16 04:00 98.8 90 21 139/66 96 10/19/16 04:00 90 10/19/16 02:00 88 10/19/16 01:02 100 45 10/19/16 00:00 98.6 92 17 125/67 99 10/19/16 00:00 92 10/18/16 22:00 99 10/18/16 21:24 97 45 10/18/16 20:00 98.3 116 20 159/74 92 10/18/16 20:00 116 10/18/16 19:00 92 T-Piece 28 10/18/16 18:00 115 10/18/16 16:00 113 10/18/16 16:00 98.7 112 18 152/79 95 10/18/16 14:00 111 I/O 10/18/16 10/18/16 10/18/16 10/19/16 10/19/16 10/19/16 06:59 14:59 22:59 06:59 14:59 22:59 Intake Total 537 ml 432 ml 626 ml 565 ml Balance 537 ml 432 ml 626 ml 565 ml IV Total 178 ml 212 ml 79 ml 118 ml Tube Feeding 359 ml 220 ml 347 ml 327 ml Other 200 ml 120 ml # Voids 3 4 2 2 # Bowel Movements 2 0 0 Result Diagram: 10/19/16 0512 10/19/16 0512 Objective Remarks This is an obese middle-aged white female who is responsive. HEENT: Head normocephalic.throat clear Neck: No bruits, no thyroid enlargement, no lymphadenopathy. Chest: Decreased breath sounds. Few Basal crackles. Heart: Heart sounds were regular. S1-S2 no murmur, no S3. Abdomen: Soft, benign. No masses, or tenderness. Bowel sounds are active. Extremities:min edema . Neuro :Moves all limbs. Awake . Assessment and Plan Assessment and Plan IMPRESSION 1. Acute hypercapnic respiratory failure.Resolving 2. Pulmonary edema. 3. Drug rash 4. Obstructive sleep apnea syndrome 5. Hypertension 6. Hypothyroidism. 7. MIKE Plan : 1. Cont on T Bar 45 % daytime upto 12 hrs 2. Trach toilet and suctioning. 3. Nebs qid , duoneb. 4. Place on CPAP/PSV 5/15 40 % at HS 5. Antibiotics per ID 6. PT and OT 7. Tube feeds at 50 CC 8. Swallow study and PO diet . Abimael Beck MD October 19, 2016 12:46
[2016-10-19] MEDS: HEPARIN-D5W 25,000 U/250 ML 250 ML IV SCH (14:12)
[2016-10-19] MEDS ORDERED: WARFARIN SOD 6 MG TAB PO ONE (16:00)
--- NOTE | 2016-10-19 16:45 | HHI.PR ---
Addendum to Inpatient Note Addendum Reason: Additional Documentation Additional Information d/w RN patient clinically doing well. No fevers Cultures negative. Observe off antibiotics. Will sign off. If any change in clinical condition please call back. I will be OOT from 10/20 to 10/25. Other ID MDs covering for me. [facility] call CALL center Terri Uribe MD October 19, 2016 16:45
[2016-10-19] MEDS: MELATONIN 5 MG TAB PO SCH (21:20)
[2016-10-19] MEDS: PRAVASTATIN SOD 20 MG TAB PO SCH (21:20)
[2016-10-20] VITALS (17 sets, daily range): BP systolic 134–181; BP diastolic 75–90; PULSE 86–105; RESP 18–20; TEMP 98.3–98.7; O2SAT 95–100
[2016-10-20] MEDS: RESP: ALBUTEROL 2.5 MG/IPRATROPIUM 0.5 MG NEB (SCH) NEB ×4 (03:16→20:29)
[2016-10-20] MEDS: CHLORHEXIDINE GLUCONATE 2 % 1 PACK (2 CLOTHS) TOP SCH (04:00)
[2016-10-20] MEDS: LEVOTHYROXINE SODIUM 200 MCG TAB PO SCH (05:53)
[2016-10-20] MEDS: QUEtiapine FUMARATE 25 MG TAB PO SCH ×3 (05:53→21:46)
[2016-10-20 07:24] LABS: HEMATOCRIT 23.4 % (35.0-46.0); INTERNATIONAL NORMALIZED RATIO 1.2 RATIO; MEAN CELL VOLUME 84.2 FL (80.0-100.0); MEAN CORPUSCULAR HEMOGLOBIN 27.7 PG (27.0-34.0); MEAN CORPUSCULAR HGB CONC 32.9 % (32.0-36.0); PLATELET COUNT 280 TH/MM3 (150-450); PROTHROMBIN TIME - PATIENT 12.9 SEC (9.8-11.6); RED BLOOD COUNT 2.78 MIL/MM3 (4.00-5.30); RED CELL DISTRIBUTION WIDTH 18.2 % (11.6-17.2); REVIEW FLAG FINAL; WHITE BLOOD COUNT 9.6 TH/MM3 (4.0-11.0)
[2016-10-20 07:28] LABS: APTT (PATIENT) 32.2 SEC (24.3-30.1)
[2016-10-20 07:49] LABS: BICARBONATE 30.3 MEQ/L (21.0-32.0); POTASSIUM 3.5 MEQ/L (3.5-5.1)
[2016-10-20] MEDS: DOCUSATE SODIUM 100 MG/10 ML UDC PO SCH ×2 (09:00→21:00)
[2016-10-20] MEDS: BENEPROTEIN POWDER 1 PACK G-TUBE SCH ×3 (09:00→17:44)
[2016-10-20] MEDS: FAMOTIDINE 40 MG/5 ML LIQ 50 ML BTL NG SCH ×2 (09:00→21:45)
[2016-10-20] MEDS: SODIUM CHLORIDE 0.9% FLUSH 10 ML FLUSH IVF SCH (09:00)
[2016-10-20] MEDS: ARTIFICIAL TEARS OPTH SOLN 15 ML BTL EACH EYE SCH ×3 (09:12→17:43)
[2016-10-20] MEDS: METOPROLOL TARTRATE 25 MG TAB G-TUBE SCH ×2 (09:12→21:46)
[2016-10-20] MEDS: EUCERIN CREAM 120 GM JAR TOPICAL SCH ×2 (09:12→21:45)
[2016-10-20] MEDS: SODIUM CHLORIDE 0.9% FLUSH 10 ML FLUSH IV FLUSH SCH ×2 (09:12→21:00)
--- NOTE | 2016-10-20 10:51 | HHI.CCPN ---
Subjective Remarks/Hospital Course 56-year-old morbidly obese female brought in the emergency department in respiratory distress. She was intubated by ER attending. She has been sick for about a week with symptoms consistent with UTI. She's had fevers and chills. She's been short of breath. She's had fatigue. She has had a cough and chest pain with coughing. The family reports that she's been delirious for the last 3 days. 08/15 Patient is sedated with Diprivan, Versed, Fentanyl and intubated. CTA chest showed no PE multifocal consolidation greatest in RLL. Tmax 100.6 08/16 Patient is sedated with Diprivan and Fentanyl. Afebrile. CXR this morning showed increase consolidation. 08/17 Patient remains sedated and intubated. T:100.4 On PRVC/AC RR 18, Tv 500, IT :1.0 PEEP:10, FIO2 75% 08/18 Remains sedated and intubated. Afebrile. CXR this morning unchanged bibasilar infiltrates and effusions. 08/19 Patient was placed on rotoprone bed last night for proning sedated with Diprivan, Versed and Fentnayl in addition she is on Nimbex. On PRVC/AC RR 20, TV 400, IT:1.1, PEEP:14 and FIO2 80%. Afebrile. 08/20 Patient remains sedated and intubated. Remains on PRVC/AC mode with improvements in her oxygenation on FIO2 50% from 80% yesterday and PEEP:12. 08/21 Patient remains sedated and intubated. On PRVC/AC mode with RR 20, TV 400, IT:1.1, PEEP: 12 and FIO2 50%. Afebrile. 08/22 No acute events overnight. Remains sedated, intubated and on Nimbex.. T: 99.8. On PRVC mode with PEP: 12, FIO2 50%. CXR from yesterday showed better aeration, RLL infiltrate unchanged. 08/23 Chest x-ray worsening. Methylprednisolone taper to twice a day by pulmonary. The patient's FiO2 was found to be 100% this a.m., will continue to wean. 08/24: 1 desat episode yesterday when supine. still remains prone now. no vasopressors. sedated and paralyzed. 08/25: flolan added yesterday. fio2 down to 60%. remained supine all night. still on neuromuscular blockade. net -500cc/24h. 08/26: good diuresis. remained supine. fio2 70%. weaning flolan. remains with significant respiratory support and high peep despite 6L diuresis overnight. Cr still stable. 08/27: continues with good diuresis. net negative 3L/24h. fio2 down to 55%. flolan off. still high peep. not ready for SBT. more agitated today. Cr remains stable despite aggressive diuresis. 08/28: diuresis continues. -3.3L/24h. spiked fever overnight with a jump in wbc to 16 this AM. fio2 60%, but her pulmonary improvements have plateaued at this point. still on peep 12. 08/29: net -1.7L/24h. Cr starting to rise. still spiking fevers despite vanc/ cefepime added yesterday. wbc continues to rise. clinically appears infected, although unclear source. peep 10, fio2 60%. will likely need trach. 08/30: net +800cc, but Cr downtrending. appears clinically euvolemic. fever curve downtrending. wbc downtrending. on 40% fio2, peep 8 today. still following commands. 08/31: failed SBT after only 45 minutes yesterday. intubated for > 2 weeks at this point. will attempt to pursue trach/peg today. will continue with pulmonary strengthening. daily SBTs. 09/01 CXR showing increasing bibasilar infiltrate. Failed C Pap trial in 5 minutes due to severe tachypnea. PEG tube today. Family has not decided on trach yet 09/02: Patient febrile to 101.1, CXR increased infiltrate Tmax Tmax 101.1. Currently 9.7 left upper lung and right lower lobe. Pancultured. Cefepime added today and one dose of vancomycin. Continues to fail C Pap trial due to tachypnea and respiratory distress 09/03: Remains hypoxemic on 75% oxygen with new pneumonia. Sputum culture 09/02/16 with GNR. Family agreeable for tracheostomy but patient is not stable at this point for trach 09/04: still on 70% fio2. still hypoxic. pneumonia persists. needs trach, but too unstable at this point. 09/05: remains on 75% fio2. pseudomonas sensitivities came back resistant to carbapenems, intermediate to levaquin. still spiking fevers. not clinically improving. wbc remains elevated. 09/06: Remains on 12 of PEEP and FiO2 75%. Zosyn and tobramycin started yesterday. WBC count trending down today 11.5 from 13.1. Remains heavily sedated for ventilator synchrony. MAXIMUM TEMPERATURE 100.3 09/07: Continues to spike fever. CXR unchanged. WBC count improving. PEEP 14. FiO2 60%. Will start IV Bumex 1mg IV q12 09/09: Tolerating tube feeds at goal. Afebrile. No documented bowel movement. Currently sedated on the ventilator 09/10: Tmax 99.7. Currently 99.4. No bowel movement yesterday. None document since 09/04. Arousable on the ventilator 09/11: Tmax 102.6. Currently 100. Positive BM. Arousable on the ventilator. Tolerating tube feeds. Central line changed yesterday. Plan for bronchoscopy at 1 PM. 09/12: Tmax 100.1. Currently afebrile. Follows commands today. Wiggles toes and give thumbs up appropriately. MRI brain canceled. Tolerating tube feeding with positive BM. Tracheostomy currently planned for . 09/13: Tmax 102. Again on sedation [place] commands by wiggling toes bilaterally and giving thumbs up bilaterally appropriate. Tolerating tube feeding with positive BM. Tracheostomy planned for tomorrow with Dr. Ortega. 09/14: Low grade fever. CXR showing more prominent infiltrate on the right lower lobe and left upper lobe. WBC trending up still in normal range. Patient is on 40% FiO2 but continues to fail CPAP due to tachypnea 09/15: Remains intubated sedated, unable to wean off the vent. Plan for tracheostomy today with Dr. Ortega. Continues to have low grade fever. CXR with persistent bibasilar infiltrates 09/16: Tmax 101.1. Currently 100.7. Awake and alert. Following commands. 09/17: Afebrile. Currently on PSV trial. Tolerating tube feeds. One bowel movement. Noted decreased urine output past 48 hours. Diuretics have been discontinued. This a.m. creatinine currently pending. 09/18: Afebrile. Adequate urine output yesterday but decreased 150 past 8 hours. Tolerating tube feeds. One bowel movement. Not tolerating PSV trials today. 09/19: Tmax 100.5. Urine output picking up. Tolerating tube feeds. No bowel movement 48 hours. Not tolerating PSV trials. 09/20: Diffuse drug morbilliform exanthem noted this a.m. Tmax 100.6. Urine output around 20 cc an hour. Not tolerating PSV trials. Possibly new right pleural effusion noted on chest x-ray. Will need hemodialysis 09/21: Tmax 100.6 currently 98.7. -4 L with hemodialysis yesterday and today. FiO2 to 60%. Tolerating tube feeds. Positive BM. Still requiring sedation 09/22: Afebrile. Tolerating tube feeds. Positive BM. 30 g per kilogram per minute of propofol. Tolerated PSV trials 3 hours today 09/23 HD today with 3.5 L removal. Tolerating CPAP for 8 hours, currently 45% with RSBI 45%. 09/24 Called by RN this morning for concern for bloody BMs. Placed heparin and warfarin on hold. Serial Hgb ordered. Hgb 9.3 -->8.6 and hemodynamically unchanged. Started on protonix drip. Heme stool is negative and now RN states she is concerned about the adequacy of specimen, so sending repeat. Had asked GI to see, however further workup will not be indicated if hemoccult is negative. Tolerating PSV 05/06 09/25: heparin restarted. hemocult negative x 2. 09/26: no changes. still failing cpap trials. 09/27: Tmax 101.5. Currently 99.5. Resting on Diprivan drip at 25 mcg/kg/m. Currently tolerating tube feeding.. One bowel movement. 09/28: Hemoglobin trending downward. Transfusing 1 unit PRBCs with hemodialysis today. Currently afebrile. Appears comfortable ventilator 2 bowel movements 09/29 No events overnight. Sedated with Diprivan and on ventilator via trach. T: 99.9 For Perma Cath placement today. s/p HD yesterday with removal 4L and transfusion 1unit PRBC with HD. 09/30: Tmax 100.8. No events overnight. No bowel movement. Tolerating tube feeds. 10/01: Tmax 101.3. Currently resting in bed in no acute distress. Tolerating tube feeds. Chest x-ray revealed atelectasis. -5 L with hemodialysis yesterday. 10/02 Patient remains on ventilator via trach on PRVC/AC with PEEP: 10 and FIO2 50 %. T: 102.1 at 4 am. 10/03 Patient is off sedation on ventilator via trach. Tmax 101.2 last night. For HD today. 10/04: Tmax 101.5. Currently afebrile. Tolerating PSV trial. Hemodialysis - 4.5 L yesterday. Positive BM. New rash. Received chlorhexidine today. 10/05: Tmax 100. Currently 98.9. Positive BM. Tolerating tube feeds. Less erythematous today. Currently on dialysis 10/06: Tmax 99.9. Currently 99.7. Currently on PSV trial 09/12 @ 45%. Tolerating tube feed. Positive bowel movement 10/07: Tmax 99.8. currently psv 10/8/40%. has not been out of bed in weeks due to critical illness. needs to be mobilized. still no placement plan. 10/08: Tmax 100.4. on t-piece currently. tolerated psv yesterday. have ordered specialty chair and currently awaiting it to arrive. 10/09 Patient remains on ventilator via trach, T:99.9 on no sedation. 10/10 No acute events overnight. For HD today on heparin drip. T:99.8, tolerating tube feeds. 10/11 No events overnight. s/p HD yesterday with removal 3.5L. Tmax 100.5. Tolerating CPAP on PS 10, PEEP: 5 and FIO2 40%. 10/12: Patient receiving hemodialysis today. Tolerating CPAP. Very weakly following commands in all 4 extremities 10/13: 6 hours of T piece yesterday. Currently on TPs and following commands slightly better today. 10/14: No acute events reported overnight. Remains on CPAP on the vent. Getting hemodialysis now 10/15: Tachypneic today 35-38 breath per min, maintaining O2 sat. No fever. CXR unchanged. PS increased to 18. Will check ABG 10/16: Awake and alert, remains on mechanical ventilation via tracheostomy. Daily C Pap trials as tolerated. 10/17: Awake and alert. On mechanical ventilation via tracheostomy. Daily C Pap trials ongoing. 10/18: Tmax 101.8 currently 98.6. Awake and alert on the ventilator. Tolerating tube feeding. Positive BM 2. Patient was pancultured blood sputum and urine overnight 10/17 10/19: Afebrile overnight. Currently sitting in bariatric chair. Some brownish secretions from tracheostomy site. On T piece Subjective 10/20: Resting in bed in no acute distress. Tolerating T piece. Positive BM. Interactive Objective Vital Signs Date Time Temp Pulse Resp B/P Pulse Ox O2 Delivery O2 Flow Rate FiO2 10/20/16 10:00 103 10/20/16 09:31 96 T-piece 40 10/20/16 08:00 98.3 18 148/75 10/19/16 10:30 7.00 Intake and Output 10/19/16 10/19/16 10/19/16 07:59 15:59 23:59 Intake Total 565 ml 506 ml 653 ml Balance 565 ml 506 ml 653 ml Result Diagram: 10/20/16 0553 10/20/16 0553 Other Results Microbiology Date/Time Procedure Status Source Growth 10/17/16 23:15 Urine Culture - Preliminary Resulted Urine Catheterized Urine Yeast Species 10/17/16 23:15 Gram Stain - Final Resulted Sputum Endotracheal 10/17/16 23:15 Sputum Culture - Preliminary Resulted Klebsiella Pneumoniae Esbl Pos 10/17/16 21:35 Aerobic Blood Culture - Preliminary Resulted Blood Peripheral NO GROWTH IN 2 DAYS 10/17/16 21:35 Anaerobic Blood Culture - Preliminary Resulted Blood Peripheral NO GROWTH IN 2 DAYS Imaging Last Impressions Chest X-Ray 10/18/16 0600 Signed Impressions: Service Date/Time: Tuesday, October 18, 2016 04:09 - CONCLUSION: Right lung base infiltrate has improved and there is questionable infiltrate left upper lobe with mild prominence of interstitial markings. Danyel Escalante MD Catheter Placement X-Ray 09/29/16 1223 Signed Impressions: Service Date/Time: Thursday, September 29, 2016 12:31 - CONCLUSION: Vas-Cath to PermCath exchange as detailed above. Taco Haas Jr., MD Renal Ultrasound 09/17/16 0000 Signed Impressions: Service Date/Time: Saturday, September 17, 2016 13:31 - CONCLUSION: Negative renal sonogram. Taco Davidson MD Upper Extremity Ultrasound 09/14/16 0000 Signed Impressions: Service Date/Time: August 08:32 - CONCLUSION: There is thrombus within the left subclavian and internal jugular veins. Danyel Escalante MD Lower Extremity Ultrasound 09/13/16 0000 Signed Impressions: Service Date/Time: Tuesday, September 13, 2016 22:33 - CONCLUSION: Normal examination. Leonides Mason MD Liver Ultrasound 09/08/16 0000 Signed Impressions: Service Date/Time: Thursday, September 08, 2016 08:45 - CONCLUSION: 1. Cholelithiasis with distended gallbladder. However, there are no associated findings present to diagnose acute cholecystitis. If there is persistent clinical concern for acute cholecystitis could evaluate for cystic duct obstruction with hepatobiliary scintigraphy. 2. Hepatomegaly with very heterogeneous echotexture and steatosis. Dejan Allison MD Gall Bladder Ultrasound 08/29/16 0000 Signed Impressions: Service Date/Time: Monday, August 29, 2016 15:21 - CONCLUSION: 1. Hepatomegaly with heterogeneous echotexture throughout the liver. 2. There is a large echogenic area near the neck of the gallbladder suggestive of a stone, but despite its large size, demonstrates no acoustic shadowing in any of the views. Taco Davidson MD CT Angiography 08/15/16 0000 Signed Impressions: Service Date/Time: Monday, August 15, 2016 02:33 - CONCLUSION: 1. No evidence for pulmonary embolism. 2. Multifocal consolidation greatest in the right lower lobe and associated adenopathy. Terry Estrada MD Objective Remarks GENERAL: 56 yo female currently on T piece in no acute distress SKIN: Warm and dry. Skin is flaky. Noted stage I to 2 decubitus ulcer\coccyx and back covered with Mepilex HEAD: Normocephalic. Atraumatic EYES: No scleral icterus. No injection or drainage. NECK: Neck is obese. Right subclavian hemodialysis catheters clean dry and intact. Tracheostomy site is clean dry and intact CARDIOVASCULAR: RRR. S1, S2. No S4. Without murmur RESPIRATORY: Diminished breath sounds throughout due to body habitus. GASTROINTESTINAL: Abdomen obese, soft, non-tender, hypoactive active bowel sounds. G-tube is clean dry and intact MUSCULOSKELETAL: 1+ edema BUE. Neuro: Awake, makes eye contact and nods to questions. Following commands moving upper and lower extremity spontaneously, though still very weak. A/P Problem List: (1) ARDS (adult respiratory distress syndrome) ICD Code: J80 Status: Acute (2) CHF (congestive heart failure) ICD Code: I50.9 Status: Acute (3) Respiratory failure ICD Code: J96.90 Status: Acute (4) Pneumonia ICD Code: J18.9 Status: Acute Assessment and Plan Neuro/Psych: Acute toxic metabolic encephalopathy Critical care myopathy Agitated delirium- improving. Minimize sedation Monitor neuro status. Fentanyl allergy On Seroquel 75 mg every 8 hours for agitation Melatonin 5mg po qHS for insomnia Acetaminophen for fever/pain Pulm: Acute on chronic hypercapnic and hypoxemic respiratory failure ARDS- resolved. Pneumonia community-acquired, now with HCAP with carbapenem-resistant pseudomonas and ESBL Klebsiella VAP. Probable JOE Continue daily C Pap trials tracheostomy Attempting T piece today at 7 L Chest x-ray 10/15 revealed left upper lobe infiltrative right lower lobe infiltrate Continue with vent support keep sat >92% ICU vent bundle Bronchodilator therapy every 6 hours and albuterol every 2 hours as needed Pulm has followed- Dr. Beck Gen surgery Dr. Ortega s/p s tracheostomy 09/15 Pulm toilet, trach care CV: Hypertension Dyslipidemia Elevated troponin - likely strain On Lopressor 50mg Q12 monitor HR and BP keep MAP>65mmHg Echo 08/14 showed EF 65-70% mild AR/TR On Pravachol 20 mg a night for dyslipidemia Renal/: Acute kidney injury - requiring hemodialysis Dr. Tan -nephrology following. Hemodialysis Sunday//Sunday currently on hold. Possibly no longer needs MIKE: ATN from sepsis syndrome and diminished renal perfusion; also aminoglycoside induced nephrotoxicity likely also contributing; possibly AIN -> per nephrology note Urine eosinophils negative. Renal ultrasound revealed no hydronephrosis Monitor renal function, I/O's, avoid nephrotoxins. Miller placed for accurate I's and O's GI: Elevated transaminases Cholelithiasis On TF Nepro's 45 cc an hour and Beneprotein 2 packs 3 times a day s/p PEG placement 09/01/[address] Stone Ricksd 10mg BID GI prophylaxis Having BM US liver: Fatty liver and cholelithiasis. Repeat 09/08 revealed cholelithiasis with no acute signs of cholecystitis. ID: Pseudomonas pneumonia Funguria, Maribell glabrata and parapsilosis. Currently off all antibiotics ID following. Pertinent cultures blood and sputum cx 08/15- NG strep pneumonia and Legionella urinary Ag negative Blood cultures 08/28: NGTD C Diff negative 08/28. Lines changed 08/28. Sputum 08/30 - Pseudomonas Sputum 09/02 PSAE, resistant to carbapenem, intermediate to Levaquin. 09/07 - urine -Maribell Guilliermondii 09/07 - blood cultures 2 - no growth 09/09 - urine -strep viridans, Maribell parapsilosis 09/10 - blood cultures 2 -no growth 09/11 - broch washings -no growth to date 09/12 - urine -Maribell glabrata and parapsilosis 09/16 - blood cultures 2 - pending 09/16 - sputum -no growth 09/16 - urine -Maribell glabrata and parapsilosis 10/02 - blood cultures 2 - staph epi 10/02 - urine - ESBL positive Klebsiella 10/04 - blood cultures 2 -no growth 10/05 - blood cultures 2 -no growth 10/17 - blood cultures -no growth 10/17 - sputum -Klebsiella ESBL positive 10/17 - urine -yeast Zosyn previously discontinued secondary to rash Followed by Dr. Uribe. Since afebrile asymptomatic no antibiotics initiated. 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 IV Heparin started due to subtherapeutic INR PTT therapeutic Endo: Diabetes mellitus Hypothyroidism on SSI (medium scale) for glycemic control On Synthroid 200mcg daily. TSH 1.37 GI prophylaxis-Protonix 40mg Q12 DVT - IV heparin until therapeutic on Coumadin Lines: Peripheral IV. - PEG 09/01/16 - Trach 09/15 - Right Permacath placed 09/29 Loree Marinelli, daughter (HCP): [phone] Rony Marinelli, significant other: [phone] Level II Problem Qualifiers (1) CHF (congestive heart failure): Qualified Code: I50.9 - Acute congestive heart failure, unspecified congestive heart failure type (2) Respiratory failure: Qualified Code: J96.02 - Acute respiratory failure with hypercapnia (3) Pneumonia: Qualified Code: J18.9 - Pneumonia of both lungs due to infectious organism, unspecified part of lung Fadi Villa MD October 20, 2016 10:51
--- NOTE | 2016-10-20 12:24 | HHI.NPPN ---
Subjective Complaints: Obesity, Shortness of Breath General Problems: Edema, Hypotension, Obesity Renal Failure: Acute Interval History Renal function is better. She is on T piece, has some thick secretions. Afebrile. (Genny Lowery) Review of Systems General General Remarks no pain (Genny Lowery) Respiratory Lungs: SOB, Cough (Genny Lowery) Neuro Neuro Remarks generalized muscle fasciculation (Genny Lowery) Objective Data Data 10/19/16 10/20/16 19:00 07:00 Intake Total 506 ml 1087 ml Balance 506 ml 1087 ml IV Total 142 ml 201 ml Tube Feeding 124 ml 646 ml Other 240 ml 240 ml # Voids 3 5 # Bowel Movements 0 1 Vital Signs Date Time Temp Pulse Resp B/P Pulse Ox O2 Delivery O2 Flow Rate FiO2 10/20/16 10:00 103 10/20/16 09:31 96 T-piece 40 10/20/16 08:00 100 10/20/16 08:00 98.3 100 18 148/75 98 10/20/16 07:00 97 T-Piece 28 10/20/16 06:00 100 10/20/16 04:05 95 40 10/20/16 04:00 98.5 93 20 155/79 98 10/20/16 04:00 93 10/20/16 02:00 92 10/20/16 01:06 98 40 10/20/16 00:00 86 10/20/16 00:00 98.7 86 18 138/82 99 10/19/16 22:06 100 40 10/19/16 22:00 91 10/19/16 21:02 99 40 10/19/16 21:01 100 Ventilator 40 10/19/16 20:00 102 10/19/16 20:00 98.5 102 20 145/72 95 10/19/16 19:00 95 T-Piece 10/19/16 18:00 98 10/19/16 16:00 99.2 114 23 153/70 100 10/19/16 16:00 114 10/19/16 14:00 98 (Genny Lowery) -: 10/20/16 0553 10/20/16 0553 Imaging Last Impressions Chest X-Ray 10/18/16 0600 Signed Impressions: Service Date/Time: Tuesday, October 18, 2016 04:09 - CONCLUSION: Right lung base infiltrate has improved and there is questionable infiltrate left upper lobe with mild prominence of interstitial markings. Danyel Escalante MD Catheter Placement X-Ray 09/29/16 1223 Signed Impressions: Service Date/Time: Thursday, September 29, 2016 12:31 - CONCLUSION: Vas-Cath to PermCath exchange as detailed above. Taco Haas Jr., MD Renal Ultrasound 09/17/16 0000 Signed Impressions: Service Date/Time: Saturday, September 17, 2016 13:31 - CONCLUSION: Negative renal sonogram. Taco Davidson MD Upper Extremity Ultrasound 09/14/16 0000 Signed Impressions: Service Date/Time: August 08:32 - CONCLUSION: There is thrombus within the left subclavian and internal jugular veins. Danyel Escalante MD Lower Extremity Ultrasound 09/13/16 0000 Signed Impressions: Service Date/Time: Tuesday, September 13, 2016 22:33 - CONCLUSION: Normal examination. Leonides Mason MD Liver Ultrasound 09/08/16 0000 Signed Impressions: Service Date/Time: Thursday, September 08, 2016 08:45 - CONCLUSION: 1. Cholelithiasis with distended gallbladder. However, there are no associated findings present to diagnose acute cholecystitis. If there is persistent clinical concern for acute cholecystitis could evaluate for cystic duct obstruction with hepatobiliary scintigraphy. 2. Hepatomegaly with very heterogeneous echotexture and steatosis. Dejan Allison MD Gall Bladder Ultrasound 08/29/16 0000 Signed Impressions: Service Date/Time: Monday, August 29, 2016 15:21 - CONCLUSION: 1. Hepatomegaly with heterogeneous echotexture throughout the liver. 2. There is a large echogenic area near the neck of the gallbladder suggestive of a stone, but despite its large size, demonstrates no acoustic shadowing in any of the views. Taco Davidson MD CT Angiography 08/15/16 0000 Signed Impressions: Service Date/Time: Monday, August 15, 2016 02:33 - CONCLUSION: 1. No evidence for pulmonary embolism. 2. Multifocal consolidation greatest in the right lower lobe and associated adenopathy. Terry Estrada MD Tubes & Lines: Perma-Cath Tubes & Lines Comment trach, PEG Drip Comment heparin, (Genny Lowery [employer]ING [employer]LOOR[employer]) Physical Exam General Appearance: No Acute Distress, Comfortable, Obese Appearance Remarks awake, nods head and mouths words (Genny Lowery. [employer]) Eyes Eye Exam: Pupils Equal, Pupils Reactive (Genny Lowery B. [employer]) Throat Throat Exam: Oral Mucosa [place] & Moist Throat Remarks trach (Genny Lowery [employer]) Neck Neck Exam: Neck Supple Neck Remarks trach (Genny Lowery [employer]) Pulmonary Resp Exam: Crackles, Rhonchi, Sputum, Diminished Breath Sounds Resp Remarks course throughout thick secretions (Genny Lowery [employer]) Cardiology CV Exam: Regular, Normal Sinus Rhythm, Good Perfusion (Genny Lowery. [employer]) Gastrointestinal/Abdomen GI Exam: Soft, Bowel Sounds Present GI Remarks morbidly obese, + PEG (Genny Lowery [employer]) Musculoskeletal MS Exam: Joints Intact, Normal Tone (Genny Lowery. [employer]) Integumentary Skin Exam: Warm, Dry, Intact (Genny Lowery [employer]) Extremeties Extremities Exam: Pedal Pulses Palpable, Moderate Edema Extremeties Remarks all four extremities (Genny Lowery [employer]) Neurologic Neuro Exam: Alert, Awake, Oriented, Moving All Extremities Neuro Remarks awake, nods head yes/no to questions (Genny Lowery) Assessment/Plan Discussed Condition With: Patient Assessment Summary: MIKE/Acute Renal Failure, Acute Tubular Necrosis, Fluid/ Volume Overload Electrolyte Assessment: Hypercalcemia, Hyponatremia Problem List: (1) Acute kidney injury Plan: ARF due to ATN HD initiated 09/20; she was dialysis dependent, last treatment 10/14 she is in recovery phase, creatinine improved remove permcath K is normal follow renal function, should have continued improvement phosphorus should also correct Avoid nephrotoxic agents. Avoid IVF daily renal panel (2) ARDS (adult respiratory distress syndrome) Plan: s/p trach placement on T piece D[employer] Wait[employer] and respiratory 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 (3) Anemia Plan: Hb low but stable on heparin and protonix GI has evaluated (4) Pneumonia Plan: afebrile, she is not on antibiotics currently ID has signed off, monitor clinically (5) Hypothyroidism Plan: on synthroid (6) DVT (deep venous thrombosis) Plan: in IJ after central line placement (provoked) bridge to Coumadin with Heparin , follow INR not therapeutic at this time (7) Morbid obesity (8) Hypercalcemia Plan: improving, likely due to immobility PTH appropriately low monitor for recurrence (Genny Lowery) Plan patient was seen and examined. Renal function has improved. PermCath to be removed. Avoid nephrotoxic agents. (Anshu Tan MD) Problem Qualifiers (1) Pneumonia: Qualified Code: J18.9 - Pneumonia of both lungs due to infectious organism, unspecified part of lung Genny Lowery October 20, 2016 12:24 Anshu Tan MD October 20, 2016 15:27
--- NOTE | 2016-10-20 12:37 | HHI.PR ---
Subjective Remarks Back on T Bar at 45 %. Tolerated it all morning Feels better . Wants to eat and wants water. Objective Vital Signs Date Time Temp Pulse Resp B/P Pulse Ox O2 Delivery O2 Flow Rate FiO2 10/20/16 10:00 103 10/20/16 09:31 96 T-piece 40 10/20/16 08:00 100 10/20/16 08:00 98.3 100 18 148/75 98 10/20/16 07:00 97 T-Piece 28 10/20/16 06:00 100 10/20/16 04:05 95 40 10/20/16 04:00 98.5 93 20 155/79 98 10/20/16 04:00 93 10/20/16 02:00 92 10/20/16 01:06 98 40 10/20/16 00:00 86 10/20/16 00:00 98.7 86 18 138/82 99 10/19/16 22:06 100 40 10/19/16 22:00 91 10/19/16 21:02 99 40 10/19/16 21:01 100 Ventilator 40 10/19/16 20:00 102 10/19/16 20:00 98.5 102 20 145/72 95 10/19/16 19:00 95 T-Piece 28 10/19/16 18:00 98 10/19/16 16:00 99.2 114 23 153/70 100 10/19/16 16:00 114 10/19/16 14:00 98 I/O 10/19/16 10/19/16 10/19/16 10/20/16 10/20/16 10/20/16 07:00 15:00 23:00 07:00 15:00 23:00 Intake Total 565 ml 506 ml 653 ml 434 ml Balance 565 ml 506 ml 653 ml 434 ml IV Total 118 ml 142 ml 149 ml 52 ml Tube Feeding 327 ml 124 ml 384 ml 262 ml Other 120 ml 240 ml 120 ml 120 ml # Voids 2 3 2 3 # Bowel Movements 0 0 1 0 Result Diagram: 10/20/16 0553 10/20/16 0553 Objective Remarks This is an obese middle-aged white female who is responsive. HEENT: Head normocephalic.throat clear. Neck: No bruits, no thyroid enlargement, no lymphadenopathy. Chest: Decreased breath sounds. Few Basal crackles. Wheeze heard. Heart: Heart sounds were regular. S1-S2 no murmur, no S3. Abdomen: Soft, benign. No masses, or tenderness. Bowel sounds are active. Extremities:min edema . Neuro :Moves all limbs. Awake . Assessment and Plan Assessment and Plan IMPRESSION 1. Acute hypercapnic respiratory failure.Resolving 2. Pulmonary edema. 3. Drug rash 4. Obstructive sleep apnea syndrome 5. Hypertension 6. Hypothyroidism. 7. MIKE Plan : 1. Cont on T Bar 40 % daytime upto 12 hrs 2. Trach toilet and suctioning. 3. Nebs qid , duoneb. 4. Place on CPAP/PSV 5/15, 35 % at HS 5. Antibiotics per ID 6. PT and OT 7. Tube feeds at 50 CC 8. Swallow study and PO diet . 9. Rehab soon. Abimael Beck MD October 20, 2016 12:37
--- NOTE | 2016-10-20 15:44 | RADRPT ---
EXAM DATE/TIME: 10/20/2016 00:00 [place] COMPARISON: No previous studies available for comparison. INDICATIONS : Patient with history of acute renal failure in need of tunnelled dialysis catheter removal. MEDICAL HISTORY : Dyslipidemia, UTI, Hypothyroidism, HTN, Dialysis, Sleep apnea SURGICAL HISTORY : Dialysis catheter placement, Tubal ligation ENCOUNTER: Subsequent ACUITY: 2 months PAIN SCORE: 0/10 IMAGE SERIES: PROCEDURE : 1. PermaCath removal. The risks, benefits and alternatives to the procedure were explained and verbal and written consent w as obtained. The site was prepped in sterile fashion. Full sterile technique was used, including ca p, mask, sterile gloves and gown and a large sterile sheet. Hand hygiene and 2% chlorhexidine and/or betadine/alcohol prep was utilized per protocol for cutaneous antisepsis. The skin and subcutaneous tissues were infiltrated with local anesthetic solution. The tract was anesthetized with 1% Lidocaine using. The Permcath was dissected from the subcutaneous tissues and easily removed in one piece. Manual pressure was applied to the venotomy site until hem ostasis was obtained. Sterile dressing was applied. The patient tolerated the procedure well and there were no complications. CONCLUSION: Uncomplicated Permcath removal. Didier Zhang MD on October 20, 2016 at 15:42 Board Certified Radiologist. This report was verified electronically.
[2016-10-20] MEDS ORDERED: WARFARIN SOD 7.5 MG TAB PO SCH (16:00)
[2016-10-20] MEDS: MELATONIN 5 MG TAB PO SCH (21:46)
[2016-10-20] MEDS: PRAVASTATIN SOD 20 MG TAB PO SCH (21:46)
[2016-10-21] VITALS (26 sets, daily range): BP systolic 142–181; BP diastolic 70–94; PULSE 79–96; RESP 18–27; TEMP 97.3–99; O2SAT 97–100
[2016-10-21] MEDS: RESP: ALBUTEROL 2.5 MG/IPRATROPIUM 0.5 MG NEB (SCH) NEB ×4 (03:08→19:53)
[2016-10-21] MEDS: CHLORHEXIDINE GLUCONATE 2 % 1 PACK (2 CLOTHS) TOP SCH (04:00)
[2016-10-21] MEDS: QUEtiapine FUMARATE 25 MG TAB PO SCH ×3 (06:14→21:53)
[2016-10-21] MEDS: LEVOTHYROXINE SODIUM 200 MCG TAB PO SCH (06:14)
[2016-10-21 07:40] LABS: HEMATOCRIT 22.9 % (35.0-46.0); MEAN CELL VOLUME 83.4 FL (80.0-100.0); MEAN CORPUSCULAR HEMOGLOBIN 27.9 PG (27.0-34.0); MEAN CORPUSCULAR HGB CONC 33.4 % (32.0-36.0); PLATELET COUNT 291 TH/MM3 (150-450); RED BLOOD COUNT 2.75 MIL/MM3 (4.00-5.30); REVIEW FLAG FINAL; WHITE BLOOD COUNT 7.9 TH/MM3 (4.0-11.0)
[2016-10-21 07:45] LABS: INTERNATIONAL NORMALIZED RATIO 1.2 RATIO; PROTHROMBIN TIME - PATIENT 13.4 SEC (9.8-11.6)
[2016-10-21 07:47] LABS: APTT (PATIENT) 31.2 SEC (24.3-30.1)
[2016-10-21 08:02] LABS: BICARBONATE 31.7 MEQ/L (21.0-32.0); POTASSIUM 3.4 MEQ/L (3.5-5.1)
[2016-10-21] MEDS: DOCUSATE SODIUM 100 MG/10 ML UDC PO SCH ×2 (08:26→21:00)
[2016-10-21] MEDS: ARTIFICIAL TEARS OPTH SOLN 15 ML BTL EACH EYE SCH ×3 (08:26→18:00)
[2016-10-21] MEDS: EUCERIN CREAM 120 GM JAR TOPICAL SCH ×2 (08:26→21:10)
[2016-10-21] MEDS: BENEPROTEIN POWDER 1 PACK G-TUBE SCH ×3 (08:26→18:00)
[2016-10-21] MEDS: FAMOTIDINE 40 MG/5 ML LIQ 50 ML BTL NG SCH ×2 (08:26→21:09)
[2016-10-21] MEDS: METOPROLOL TARTRATE 25 MG TAB G-TUBE SCH ×3 (08:27→21:53)
[2016-10-21] MEDS: SODIUM CHLORIDE 0.9% FLUSH 10 ML FLUSH IV FLUSH SCH ×2 (08:27→21:09)
[2016-10-21] MEDS: SODIUM CHLORIDE 0.9% FLUSH 10 ML FLUSH IVF SCH (08:27)
[2016-10-21] MEDS: MORPHINE SULFATE 4 MG/ML INJ IV PRN ×2 (10:20→19:26)
[2016-10-21] MEDS: HEPARIN-D5W 25,000 U/250 ML 250 ML IV SCH (12:23)
--- NOTE | 2016-10-21 12:23 | HHI.NPPN ---
Subjective Complaints: Obesity, Shortness of Breath General Problems: Edema, Hypotension, Obesity Renal Failure: Acute Review of Systems General General Remarks no pain Respiratory Lungs: SOB, Cough Neuro Neuro Remarks generalized muscle fasciculation Objective Data Data 10/20/16 10/21/16 19:00 07:00 Intake Total 230 ml 734 ml Balance 230 ml 734 ml Tube Feeding 130 ml 494 ml Tube Irrigant 100 ml 240 ml # Voids 3 5 # Bowel Movements 2 2 Vital Signs Date Time Temp Pulse Resp B/P Pulse Ox O2 Delivery O2 Flow Rate FiO2 10/21/16 11:00 89 151/78 100 10/21/16 10:04 83 166/84 100 10/21/16 10:00 84 100 10/21/16 10:00 84 10/21/16 09:00 85 166/84 98 10/21/16 08:00 97.3 96 18 156/82 97 10/21/16 08:00 96 10/21/16 07:35 98 T-piece 6.00 40 10/21/16 07:00 98 T-Piece 35 10/21/16 07:00 93 155/78 98 10/21/16 06:00 94 10/21/16 06:00 94 181/85 100 10/21/16 05:00 94 170/89 99 10/21/16 04:26 100 40 10/21/16 04:00 92 10/21/16 04:00 98.6 92 20 166/87 98 10/21/16 02:00 91 10/21/16 01:30 100 40 10/21/16 00:00 98.8 90 22 142/79 100 10/21/16 00:00 90 10/20/16 22:00 105 10/20/16 21:30 98 40 10/20/16 20:34 98 T-piece 5.00 40 10/20/16 20:00 98.5 101 18 156/76 100 10/20/16 20:00 101 10/20/16 19:00 100 T-Piece 28 10/20/16 18:00 102 10/20/16 16:00 96 10/20/16 16:00 98.7 96 20 134/80 100 10/20/16 14:00 91 -: 10/21/16 0726 10/21/16 0726 Tubes & Lines: Perma-Cath Tubes & Lines Comment trach, PEG Drip Comment heparin, Physical Exam General Appearance: No Acute Distress, Comfortable, Obese Eyes Eye Exam: Pupils Equal, Pupils Reactive Throat Throat Exam: Oral Mucosa [place] & Moist Neck Neck Exam: Neck Supple Pulmonary Resp Exam: Crackles, Rhonchi, Sputum, Diminished Breath Sounds Cardiology CV Exam: Regular, Normal Sinus Rhythm, Good Perfusion Gastrointestinal/Abdomen GI Exam: Soft, Bowel Sounds Present Musculoskeletal MS Exam: Joints Intact, Normal Tone Integumentary Skin Exam: Warm, Dry, Intact Extremeties Extremities Exam: Pedal Pulses Palpable, Moderate Edema Neurologic Neuro Exam: Alert, Awake, Oriented, Moving All Extremities Assessment/Plan Discussed Condition With: Patient Assessment Summary: MIKE/Acute Renal Failure, Acute Tubular Necrosis, Fluid/ Volume Overload Electrolyte Assessment: Hypercalcemia, Hyponatremia Problem List: (1) Acute kidney injury Plan: ARF due to ATN HD initiated 09/20; she was dialysis dependent, last treatment 10/14 she is in recovery phase, creatinine improved Her creatinine has declined further, potassium is low replace (2) ARDS (adult respiratory distress syndrome) Plan: s/p trach placement on T piece [employer]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 (3) Anemia Plan: Hb low but stable on heparin and protonix GI has evaluated (4) Pneumonia Plan: afebrile, she is not on antibiotics currently ID has signed off, monitor clinically (5) Hypothyroidism Plan: on synthroid (6) DVT (deep venous thrombosis) Plan: bridge to Coumadin with Heparin , follow INR not therapeutic at this time (7) Morbid obesity (8) Hypercalcemia Plan: improving, likely due to immobility PTH appropriately low monitor for recurrence Problem Qualifiers (1) Pneumonia: Qualified Code: J18.9 - Pneumonia of both lungs due to infectious organism, unspecified part of lung Babs Cruz MD October 21, 2016 12:23
[2016-10-21] MEDS ORDERED: POTASSIUM CHLOR 20 MEQ PREMIX 100 ML IV ONE (12:30)
[2016-10-21] MEDS ORDERED: LABETALOL HCL 100 MG/20 ML VIAL IV PUSH PRN (13:15)
[2016-10-21] MEDS ORDERED: NITROGLYCERIN 2% OINT 1 GM PACKET TOPICAL PRN (13:15)
--- NOTE | 2016-10-21 13:30 | HHI.CCPN ---
Subjective Remarks/Hospital Course 56-year-old morbidly obese female brought in the emergency department in respiratory distress. She was intubated by ER attending. She has been sick for about a week with symptoms consistent with UTI. She's had fevers and chills. She's been short of breath. She's had fatigue. She has had a cough and chest pain with coughing. The family reports that she's been delirious for the last 3 days. 08/15 Patient is sedated with Diprivan, Versed, Fentanyl and intubated. CTA chest showed no PE multifocal consolidation greatest in RLL. Tmax 100.6 08/16 Patient is sedated with Diprivan and Fentanyl. Afebrile. CXR this morning showed increase consolidation. 08/17 Patient remains sedated and intubated. T:100.4 On PRVC/AC RR 18, Tv 500, IT :1.0 PEEP:10, FIO2 75% 08/18 Remains sedated and intubated. Afebrile. CXR this morning unchanged bibasilar infiltrates and effusions. 08/19 Patient was placed on rotoprone bed last night for proning sedated with Diprivan, Versed and Fentnayl in addition she is on Nimbex. On PRVC/AC RR 20, TV 400, IT:1.1, PEEP:14 and FIO2 80%. Afebrile. 08/20 Patient remains sedated and intubated. Remains on PRVC/AC mode with improvements in her oxygenation on FIO2 50% from 80% yesterday and PEEP:12. 08/21 Patient remains sedated and intubated. On PRVC/AC mode with RR 20, TV 400, IT:1.1, PEEP: 12 and FIO2 50%. Afebrile. 08/22 No acute events overnight. Remains sedated, intubated and on Nimbex.. T: 99.8. On PRVC mode with PEP: 12, FIO2 50%. CXR from yesterday showed better aeration, RLL infiltrate unchanged. 08/23 Chest x-ray worsening. Methylprednisolone taper to twice a day by pulmonary. The patient's FiO2 was found to be 100% this a.m., will continue to wean. 08/24: 1 desat episode yesterday when supine. still remains prone now. no vasopressors. sedated and paralyzed. 08/25: flolan added yesterday. fio2 down to 60%. remained supine all night. still on neuromuscular blockade. net -500cc/24h. 08/26: good diuresis. remained supine. fio2 70%. weaning flolan. remains with significant respiratory support and high peep despite 6L diuresis overnight. Cr still stable. 08/27: continues with good diuresis. net negative 3L/24h. fio2 down to 55%. flolan off. still high peep. not ready for SBT. more agitated today. Cr remains stable despite aggressive diuresis. 08/28: diuresis continues. -3.3L/24h. spiked fever overnight with a jump in wbc to 16 this AM. fio2 60%, but her pulmonary improvements have plateaued at this point. still on peep 12. 08/29: net -1.7L/24h. Cr starting to rise. still spiking fevers despite vanc/ cefepime added yesterday. wbc continues to rise. clinically appears infected, although unclear source. peep 10, fio2 60%. will likely need trach. 08/30: net +800cc, but Cr downtrending. appears clinically euvolemic. fever curve downtrending. wbc downtrending. on 40% fio2, peep 8 today. still following commands. 08/31: failed SBT after only 45 minutes yesterday. intubated for > 2 weeks at this point. will attempt to pursue trach/peg today. will continue with pulmonary strengthening. daily SBTs. 09/01 CXR showing increasing bibasilar infiltrate. Failed C Pap trial in 5 minutes due to severe tachypnea. PEG tube today. Family has not decided on trach yet 09/02: Patient febrile to 101.1, CXR increased infiltrate Tmax Tmax 101.1. Currently 9.7 left upper lung and right lower lobe. Pancultured. Cefepime added today and one dose of vancomycin. Continues to fail C Pap trial due to tachypnea and respiratory distress 09/03: Remains hypoxemic on 75% oxygen with new pneumonia. Sputum culture 09/02/16 with GNR. Family agreeable for tracheostomy but patient is not stable at this point for trach 09/04: still on 70% fio2. still hypoxic. pneumonia persists. needs trach, but too unstable at this point. 09/05: remains on 75% fio2. pseudomonas sensitivities came back resistant to carbapenems, intermediate to levaquin. still spiking fevers. not clinically improving. wbc remains elevated. 09/06: Remains on 12 of PEEP and FiO2 75%. Zosyn and tobramycin started yesterday. WBC count trending down today 11.5 from 13.1. Remains heavily sedated for ventilator synchrony. MAXIMUM TEMPERATURE 100.3 09/07: Continues to spike fever. CXR unchanged. WBC count improving. PEEP 14. FiO2 60%. Will start IV Bumex 1mg IV q12 09/09: Tolerating tube feeds at goal. Afebrile. No documented bowel movement. Currently sedated on the ventilator 09/10: Tmax 99.7. Currently 99.4. No bowel movement yesterday. None document since 09/04. Arousable on the ventilator 09/11: Tmax 102.6. Currently 100. Positive BM. Arousable on the ventilator. Tolerating tube feeds. Central line changed yesterday. Plan for bronchoscopy at 1 PM. 09/12: Tmax 100.1. Currently afebrile. Follows commands today. Wiggles toes and give thumbs up appropriately. MRI brain canceled. Tolerating tube feeding with positive BM. Tracheostomy currently planned for . 09/13: Tmax 102. Again on sedation [place] commands by wiggling toes bilaterally and giving thumbs up bilaterally appropriate. Tolerating tube feeding with positive BM. Tracheostomy planned for tomorrow with Dr. Ortega. 09/14: Low grade fever. CXR showing more prominent infiltrate on the right lower lobe and left upper lobe. WBC trending up still in normal range. Patient is on 40% FiO2 but continues to fail CPAP due to tachypnea 09/15: Remains intubated sedated, unable to wean off the vent. Plan for tracheostomy today with Dr. Ortega. Continues to have low grade fever. CXR with persistent bibasilar infiltrates 09/16: Tmax 101.1. Currently 100.7. Awake and alert. Following commands. 09/17: Afebrile. Currently on PSV trial. Tolerating tube feeds. One bowel movement. Noted decreased urine output past 48 hours. Diuretics have been discontinued. This a.m. creatinine currently pending. 09/18: Afebrile. Adequate urine output yesterday but decreased 150 past 8 hours. Tolerating tube feeds. One bowel movement. Not tolerating PSV trials today. 09/19: Tmax 100.5. Urine output picking up. Tolerating tube feeds. No bowel movement 48 hours. Not tolerating PSV trials. 09/20: Diffuse drug morbilliform exanthem noted this a.m. Tmax 100.6. Urine output around 20 cc an hour. Not tolerating PSV trials. Possibly new right pleural effusion noted on chest x-ray. Will need hemodialysis 09/21: Tmax 100.6 currently 98.7. -4 L with hemodialysis yesterday and today. FiO2 to 60%. Tolerating tube feeds. Positive BM. Still requiring sedation 09/22: Afebrile. Tolerating tube feeds. Positive BM. 30 g per kilogram per minute of propofol. Tolerated PSV trials 3 hours today 09/23 HD today with 3.5 L removal. Tolerating CPAP for 8 hours, currently 45% with RSBI 45%. 09/24 Called by RN this morning for concern for bloody BMs. Placed heparin and warfarin on hold. Serial Hgb ordered. Hgb 9.3 -->8.6 and hemodynamically unchanged. Started on protonix drip. Heme stool is negative and now RN states she is concerned about the adequacy of specimen, so sending repeat. Had asked GI to see, however further workup will not be indicated if hemoccult is negative. Tolerating PSV 05/06 09/25: heparin restarted. hemocult negative x 2. 09/26: no changes. still failing cpap trials. 09/27: Tmax 101.5. Currently 99.5. Resting on Diprivan drip at 25 mcg/kg/m. Currently tolerating tube feeding.. One bowel movement. 09/28: Hemoglobin trending downward. Transfusing 1 unit PRBCs with hemodialysis today. Currently afebrile. Appears comfortable ventilator 2 bowel movements 09/29 No events overnight. Sedated with Diprivan and on ventilator via trach. T: 99.9 For Perma Cath placement today. s/p HD yesterday with removal 4L and transfusion 1unit PRBC with HD. 09/30: Tmax 100.8. No events overnight. No bowel movement. Tolerating tube feeds. 10/01: Tmax 101.3. Currently resting in bed in no acute distress. Tolerating tube feeds. Chest x-ray revealed atelectasis. -5 L with hemodialysis yesterday. 10/02 Patient remains on ventilator via trach on PRVC/AC with PEEP: 10 and FIO2 50 %. T: 102.1 at 4 am. 10/03 Patient is off sedation on ventilator via trach. Tmax 101.2 last night. For HD today. 10/04: Tmax 101.5. Currently afebrile. Tolerating PSV trial. Hemodialysis - 4.5 L yesterday. Positive BM. New rash. Received chlorhexidine today. 10/05: Tmax 100. Currently 98.9. Positive BM. Tolerating tube feeds. Less erythematous today. Currently on dialysis 10/06: Tmax 99.9. Currently 99.7. Currently on PSV trial 09/12 @ 45%. Tolerating tube feed. Positive bowel movement 10/07: Tmax 99.8. currently psv 10/8/40%. has not been out of bed in weeks due to critical illness. needs to be mobilized. still no placement plan. 10/08: Tmax 100.4. on t-piece currently. tolerated psv yesterday. have ordered specialty chair and currently awaiting it to arrive. 10/09 Patient remains on ventilator via trach, T:99.9 on no sedation. 10/10 No acute events overnight. For HD today on heparin drip. T:99.8, tolerating tube feeds. 10/11 No events overnight. s/p HD yesterday with removal 3.5L. Tmax 100.5. Tolerating CPAP on PS 10, PEEP: 5 and FIO2 40%. 10/12: Patient receiving hemodialysis today. Tolerating CPAP. Very weakly following commands in all 4 extremities 10/13: 6 hours of T piece yesterday. Currently on TPs and following commands slightly better today. 10/14: No acute events reported overnight. Remains on CPAP on the vent. Getting hemodialysis now 10/15: Tachypneic today 35-38 breath per min, maintaining O2 sat. No fever. CXR unchanged. PS increased to 18. Will check ABG 10/16: Awake and alert, remains on mechanical ventilation via tracheostomy. Daily C Pap trials as tolerated. 10/17: Awake and alert. On mechanical ventilation via tracheostomy. Daily C Pap trials ongoing. 10/18: Tmax 101.8 currently 98.6. Awake and alert on the ventilator. Tolerating tube feeding. Positive BM 2. Patient was pancultured blood sputum and urine overnight 10/17 10/19: Afebrile overnight. Currently sitting in bariatric chair. Some brownish secretions from tracheostomy site. On T piece 10/20: Resting in bed in no acute distress. Tolerating T piece. Positive BM. Interactive Subjective 10/21: Afebrile. Tolerating T piece. Resting in bed in no acute distress. Interactive. Positive BM. Tolerate feeds. No bleeding from removed tunneled cuffed hemodialysis catheter Objective Vital Signs Date Time Temp Pulse Resp B/P Pulse Ox O2 Delivery O2 Flow Rate FiO2 10/21/16 11:00 89 151/78 100 10/21/16 08:00 97.3 18 10/21/16 07:35 T-piece 6.00 40 Intake and Output 10/20/16 10/20/16 10/21/16 08:00 16:00 00:00 Intake Total 434 ml 230 ml 327 ml Balance 434 ml 230 ml 327 ml Result Diagram: 10/21/16 0726 10/21/16 0726 Other Results Microbiology Date/Time Procedure Status Source Growth 10/17/16 23:15 Urine Culture - Final Complete Urine Catheterized Urine Maribell Glabrata 10/17/16 23:15 Gram Stain - Final Complete Sputum Endotracheal 10/17/16 23:15 Sputum Culture - Final Complete Klebsiella Pneumoniae Esbl Pos Stenotrophomonas Maltophilia 10/17/16 21:35 Aerobic Blood Culture - Preliminary Resulted Blood Peripheral NO GROWTH IN 4 DAYS 10/17/16 21:35 Anaerobic Blood Culture - Preliminary Resulted Blood Peripheral NO GROWTH IN 4 DAYS Imaging Last Impressions Central Venous Line 10/20/16 0000 Signed Impressions: Service Date/Time: Thursday, October 20, 2016 00:00 - CONCLUSION: Uncomplicated Permcath removal. Didier Zhang MD Chest X-Ray 10/18/16 0600 Signed Impressions: Service Date/Time: Tuesday, October 18, 2016 04:09 - CONCLUSION: Right lung base infiltrate has improved and there is questionable infiltrate left upper lobe with mild prominence of interstitial markings. Danyel Escalante MD Catheter Placement X-Ray 09/29/16 1223 Signed Impressions: Service Date/Time: Thursday, September 29, 2016 12:31 - CONCLUSION: Vas-Cath to PermCath exchange as detailed above. Taco Haas Jr., MD Renal Ultrasound 09/17/16 0000 Signed Impressions: Service Date/Time: Saturday, September 17, 2016 13:31 - CONCLUSION: Negative renal sonogram. Taco Davidson MD Upper Extremity Ultrasound 09/14/16 0000 Signed Impressions: Service Date/Time: August 08:32 - CONCLUSION: There is thrombus within the left subclavian and internal jugular veins. Danyel Escalante MD Lower Extremity Ultrasound 09/13/16 0000 Signed Impressions: Service Date/Time: Tuesday, September 13, 2016 22:33 - CONCLUSION: Normal examination. Leonides Mason MD Liver Ultrasound 09/08/16 0000 Signed Impressions: Service Date/Time: Thursday, September 08, 2016 08:45 - CONCLUSION: 1. Cholelithiasis with distended gallbladder. However, there are no associated findings present to diagnose acute cholecystitis. If there is persistent clinical concern for acute cholecystitis could evaluate for cystic duct obstruction with hepatobiliary scintigraphy. 2. Hepatomegaly with very heterogeneous echotexture and steatosis. Dejan Allison MD Gall Bladder Ultrasound 08/29/16 Signed Impressions: Service Date/Time: Monday, August 29, 2016 15:21 - CONCLUSION: 1. Hepatomegaly with heterogeneous echotexture throughout the liver. 2. There is a large echogenic area near the neck of the gallbladder suggestive of a stone, but despite its large size, demonstrates no acoustic shadowing in any of the views. Taco Davidson MD CT Angiography 08/15/16 0000 Signed Impressions: Service Date/Time: Monday, August 15, 2016 02:33 - CONCLUSION: 1. No evidence for pulmonary embolism. 2. Multifocal consolidation greatest in the right lower lobe and associated adenopathy. Terry Estrada MD Objective Remarks GENERAL: 56 yo female currently on T piece in no acute distress SKIN: Warm and dry. Skin is flaky. Noted stage I to 2 decubitus ulcer\coccyx and back covered with Mepilex HEAD: Normocephalic. Atraumatic EYES: No scleral icterus. No injection or drainage. NECK: Neck is obese. Right subclavian hemodialysis catheters clean dry and intact. Tracheostomy site is clean dry and intact CARDIOVASCULAR: RRR. S1, S2. No S4. Without murmur RESPIRATORY: Diminished breath sounds throughout due to body habitus. GASTROINTESTINAL: Abdomen obese, soft, non-tender, hypoactive active bowel sounds. G-tube is clean dry and intact MUSCULOSKELETAL: 1+ edema BUE. Neuro: Awake, makes eye contact and nods to questions. Following commands moving upper and lower extremity spontaneously, though still very weak. A/P Problem List: (1) ARDS (adult respiratory distress syndrome) ICD Code: J80 Status: Acute (2) CHF (congestive heart failure) ICD Code: I50.9 Status: Acute (3) Respiratory failure ICD Code: J96.90 Status: Acute (4) Pneumonia ICD Code: J18.9 Status: Acute Assessment and Plan Neuro/Psych: Acute toxic metabolic encephalopathy Critical care myopathy Agitated delirium- improving. Minimize sedation Monitor neuro status. Fentanyl allergy On Seroquel 75 mg every 8 hours for agitation Melatonin 5mg po qHS for insomnia Acetaminophen for fever/pain Pulm: Acute on chronic hypercapnic and hypoxemic respiratory failure ARDS- resolved. Pneumonia community-acquired, now with HCAP with carbapenem-resistant pseudomonas and ESBL Klebsiella VAP. Probable JOE Continue daily C Pap trials tracheostomy Attempting T piece today at 7 L Chest x-ray 10/15 revealed left upper lobe infiltrative right lower lobe infiltrate Continue with vent support keep sat >92% ICU vent bundle Bronchodilator therapy every 6 hours and albuterol every 2 hours as needed Pulm has followed- Dr. Beck Gen surgery Dr. Ortega s/p s tracheostomy 09/15 Pulm toilet, trach care CV: Hypertension Dyslipidemia Elevated troponin - likely strain On Lopressor 50mg Q8 monitor HR and BP keep MAP>65mmHg As needed labetalol, hydralazine and Nitropaste for hypertension Echo 08/14 showed EF 65-70% mild AR/TR On Pravachol 20 mg a night for dyslipidemia Renal/: Acute kidney injury - requiring hemodialysis Dr. Tan -nephrology following. Hemodialysis Sunday//Sunday currently on hold. Tunneled cuff catheter discontinued 10/20 MIKE: ATN from sepsis syndrome and diminished renal perfusion; also aminoglycoside induced nephrotoxicity likely also contributing; possibly AIN -> per nephrology note Urine eosinophils negative. Renal ultrasound revealed no hydronephrosis Monitor renal function, I/O's, avoid nephrotoxins. Miller placed for accurate I's and O's GI: Elevated transaminases Cholelithiasis On TF Nepro's 45 cc an hour and Beneprotein 2 packs 3 times a day s/p PEG placement 09/01/[address] Ritter Pepcid 10mg BID GI prophylaxis Having BM US liver: Steatosis and cholelithiasis. Repeat 09/08 revealed cholelithiasis with no acute signs of cholecystitis. ID: Pseudomonas pneumonia Funguria, Maribell glabrata and parapsilosis. Currently off all antibiotics ID following. Pertinent cultures blood and sputum cx 08/15- NG strep pneumonia and Legionella urinary Ag negative Blood cultures 08/28: NGTD C Diff negative 08/28. Lines changed 08/28. Sputum 08/30 - Pseudomonas Sputum 09/02 PSAE, resistant to carbapenem, intermediate to Levaquin. 09/07 - urine -Maribell Guilliermondii 09/07 - blood cultures 2 - no growth 09/09 - urine -strep viridans, Maribell parapsilosis 09/10 - blood cultures 2 -no growth 09/11 - broch washings -no growth to date 09/12 - urine -Maribell glabrata and parapsilosis 09/16 - blood cultures 2 - pending 09/16 - sputum -no growth 09/16 - urine -Maribell glabrata and parapsilosis 10/02 - blood cultures 2 - staph epi 10/02 - urine - ESBL positive Klebsiella 10/04 - blood cultures 2 -no growth 10/05 - blood cultures 2 -no growth 10/17 - blood cultures -no growth 10/17 - sputum -Klebsiella ESBL positive and Stenotrophomonas maltophilia 10/17 - urine -C glabrata Zosyn previously discontinued secondary to rash Followed by Dr. Uribe. Out of town. 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 IV Heparin started due to subtherapeutic INR PTT therapeutic Endo: Diabetes mellitus Hypothyroidism on SSI (medium scale) for glycemic control On Synthroid 200mcg daily. TSH 1.37 GI prophylaxis-Protonix 40mg Q12 DVT - IV heparin until therapeutic on Coumadin Lines: Peripheral IV. - PEG 09/01/16 - Trach 09/15 - Right Permacath placed 09/29 Loree Marinelli, daughter (HCP): [phone] Rony Marinelli, significant other: [phone] Level II Problem Qualifiers (1) CHF (congestive heart failure): Qualified Code: I50.9 - Acute congestive heart failure, unspecified congestive heart failure type (2) Respiratory failure: Qualified Code: J96.02 - Acute respiratory failure with hypercapnia (3) Pneumonia: Qualified Code: J18.9 - Pneumonia of both lungs due to infectious organism, unspecified part of lung Fadi Villa MD October 21, 2016 13:30
[2016-10-21] MEDS ORDERED: WARFARIN SOD 6 MG TAB PO SCH (16:00)
--- NOTE | 2016-10-21 17:01 | HHI.IDPN ---
Subjective Subjective Remarks Patient is admitted to ICU with respiratory failure, CHF, pneumonia, probable underlying COPD. Patient was intubated and placed on mechanical ventilation. Has been having fevers. s/p Rx for PSAE PNA and C glabrata UTI. Pt has prolonged resp filure on vent, trached On Tpiece x 2 days Copious amount of secretions Growing Stenotroph and ESBL+ Kleb in the sputum Off HD, vascath removed Making UOP, adequate has cline, it was changd this am Urine clx from 10/17 C.glabrata No fever since 10/18 Antibiotics None Lines Line sites with no e.o infection. Past Medical History reviewed. Allergies: Coded Allergies: Fentanyl (Verified Adverse Reaction, Severe, rash, 09/21/16) *MDRO Multi-Drug Resistant Organism (Verified Adverse Reaction, Unknown, ) ESBL (urine & sputum)-10/02/16 ESBL (urine)-10/22/16 Objective . Vital Signs Date Time Temp Pulse Resp B/P Pulse Ox O2 Delivery O2 Flow Rate FiO2 10/21/16 16:00 96 10/21/16 16:00 98.7 96 161/80 100 10/21/16 15:00 88 162/86 100 10/21/16 14:00 91 165/91 100 10/21/16 14:00 91 10/21/16 13:00 95 164/77 98 10/21/16 12:00 99.0 92 166/85 98 10/21/16 12:00 92 10/21/16 11:00 89 151/78 100 10/21/16 10:04 83 166/84 100 10/21/16 10:00 84 100 10/21/16 10:00 84 10/21/16 09:00 85 166/84 98 10/21/16 08:00 97.3 96 18 156/82 97 10/21/16 08:00 96 10/21/16 07:35 98 T-piece 6.00 40 10/21/16 07:00 98 T-Piece 35 10/21/16 07:00 93 155/78 98 10/21/16 06:00 94 10/21/16 06:00 94 181/85 100 10/21/16 05:00 94 170/89 99 10/21/16 04:26 100 40 10/21/16 04:00 92 10/21/16 04:00 98.6 92 20 166/87 98 10/21/16 02:00 91 10/21/16 01:30 100 40 10/21/16 00:00 98.8 90 22 142/79 100 10/21/16 00:00 90 10/20/16 22:00 105 10/20/16 21:30 98 40 10/20/16 20:34 98 T-piece 5.00 40 10/20/16 20:00 98.5 101 18 156/76 100 10/20/16 20:00 101 10/20/16 19:00 100 T-Piece 28 10/20/16 18:00 102 10/20/16 10/20/16 10/21/16 15:00 23:00 07:00 Intake Total 230 ml 327 ml 407 ml Balance 230 ml 327 ml 407 ml Tube Feeding 130 ml 207 ml 287 ml Tube Irrigant 100 ml 120 ml 120 ml # Voids 3 2 3 # Bowel Movements 2 0 2 . Laboratory Tests Test 10/20/16 10/21/16 05:53 07:26 White Blood Count 9.6 TH/MM3 7.9 TH/MM3 Red Blood Count 2.78 MIL/MM3 2.75 MIL/MM3 Hemoglobin 7.7 GM/DL 7.7 GM/DL Hematocrit 23.4 % 22.9 % Mean Corpuscular Volume 84.2 FL 83.4 FL Mean Corpuscular Hemoglobin 27.7 PG 27.9 PG Mean Corpuscular Hemoglobin 32.9 % 33.4 % Concent Red Cell Distribution Width 18.2 % 18.0 % Platelet Count 280 TH/MM3 291 TH/MM3 Mean Platelet Volume 7.4 FL 6.7 FL Laboratory Tests Test 10/20/16 10/21/16 05:53 07:26 Sodium Level 143 MEQ/L 145 MEQ/L Potassium Level 3.5 MEQ/L 3.4 MEQ/L Chloride Level 102 MEQ/L 105 MEQ/L Carbon Dioxide Level 30.3 MEQ/L 31.7 MEQ/L Anion Gap 11 MEQ/L 8 MEQ/L Blood Urea Nitrogen 75 MG/DL 68 MG/DL Creatinine 2.20 MG/DL 2.05 MG/DL Estimat Glomerular Filtration 23 ML/MIN 25 ML/MIN Rate Random Glucose 123 MG/DL 124 MG/DL Calcium Level 10.0 MG/DL 10.2 MG/DL Phosphorus Level 5.0 MG/DL 4.7 MG/DL Albumin 3.6 GM/DL 3.6 GM/DL Imaging Last Impressions Central Venous Line 10/20/16 0000 Signed Impressions: Service Date/Time: Thursday, October 20, 2016 00:00 - CONCLUSION: Uncomplicated Permcath removal. Didier Zhang MD Chest X-Ray 10/18/16 0600 Signed Impressions: Service Date/Time: Tuesday, October 18, 2016 04:09 - CONCLUSION: Right lung base infiltrate has improved and there is questionable infiltrate left upper lobe with mild prominence of interstitial markings. Danyel Escalante MD Catheter Placement X-Ray 09/29/16 1223 Signed Impressions: Service Date/Time: Thursday, September 29, 2016 12:31 - CONCLUSION: Vas-Cath to PermCath exchange as detailed above. Taco Haas Jr., MD Renal Ultrasound 09/17/16 0000 Signed Impressions: Service Date/Time: Saturday, September 17, 2016 13:31 - CONCLUSION: Negative renal sonogram. Taco Davidson MD Upper Extremity Ultrasound 09/14/16 0000 Signed Impressions: Service Date/Time: August 08:32 - CONCLUSION: There is thrombus within the left subclavian and internal jugular veins. Danyel Escalante MD Lower Extremity Ultrasound 09/13/16 0000 Signed Impressions: Service Date/Time: Tuesday, September 13, 2016 22:33 - CONCLUSION: Normal examination. Leonides Mason MD Liver Ultrasound 09/08/16 0000 Signed Impressions: Service Date/Time: Thursday, September 08, 2016 08:45 - CONCLUSION: 1. Cholelithiasis with distended gallbladder. However, there are no associated findings present to diagnose acute cholecystitis. If there is persistent clinical concern for acute cholecystitis could evaluate for cystic duct obstruction with hepatobiliary scintigraphy. 2. Hepatomegaly with very heterogeneous echotexture and steatosis. Dejan Allison MD Gall Bladder Ultrasound 08/29/16 0000 Signed Impressions: Service Date/Time: Monday, August 29, 2016 15:21 - CONCLUSION: 1. Hepatomegaly with heterogeneous echotexture throughout the liver. 2. There is a large echogenic area near the neck of the gallbladder suggestive of a stone, but despite its large size, demonstrates no acoustic shadowing in any of the views. Taco Davidson MD CT Angiography 08/15/16 0000 Signed Impressions: Service Date/Time: Monday, August 15, 2016 02:33 - CONCLUSION: 1. No evidence for pulmonary embolism. 2. Multifocal consolidation greatest in the right lower lobe and associated adenopathy. Terry Estrada MD Physical Exam GENERAL: Morbidly obese patient, awake, NAD, on the vent SKIN: no rash HEAD: Atraumatic. Normocephalic. No temporal or scalp tenderness. EYES: Pupils equal round and reactive. No scleral icterus. Moist mucosa ENT: No nasal discharge. Dry oral mucosa NECK:Supple. Trach in place, copious yellowish secretions CARDIOVASCULAR: Regular rate and rhythm RESPIRATORY: Clear to auscultation. Breath sounds equal bilaterally. GASTROINTESTINAL: Abdomen soft, obese, non-tender, nondistended. No hepatiomegaly MUSCULOSKELETAL: Extremities without clubbing, cyanosis. Edema , trace NEUROLOGICAL: eyes open, + tracks, nods to questions PIV with no evidence of infection : Cline in place with clear yellow urine. Assessment & Plan Remarks Sepsis present on admission. HCAP: ESBL and very MDR PSAE Staph epidermidis: possible contaminant but will repeat HD cath culture. Morbid Obesity (BMI 45.8 kg/m2) Obstructive Sleep Apnea (supposed to be on CPAP at home and home oxygen 2L) Acute respiratory failure vent dependent. Acute metabolic encephalopathy: infection, meds. Thrombosis of cephalic vein. Renal insufficiency, HD on hold as Cr and UO improving. ESBL Kleb pneumo , Stenotroph in the sputum ? colonization; sputum not purulent - clincally doing well; afebrile, with nl WBC - infiltrates on CXR might not be infectious in the nature C. glabrata funguria- new - ? coloniczation Recs: - cont to observe off abx - repeat UA, C+S with new cline - will start Ertapenem + levaquine po if fever, leukocytosis, or worsening of resp status dw Reba Gardner MD October 21, 2016 17:01
[2016-10-21 19:02] LABS: APTT (PATIENT) 56.5 SEC (24.3-30.1)
[2016-10-21 19:24] LABS: BACTERIA, URINE OCC /hpf; BLOOD, URINE SMALL (NEG); GLUCOSE,URINE NEG (NEG); HYALINE CAST, URINE 2 /lpf (RARE); KETONE, URINE NEG (NEG); MUCUS URINE FEW /lpf (OCC); NITRITE,URINE NEG (NEG); SQUAMOUS EPITHELIAL CELL URINE 3 /hpf (0-5); URINE COLOR LIGHT-YELLOW (YELLW/STRAW)
[2016-10-21 19:25] LABS: COMMENT (UR) CATH-CULTURE IND; CULTURE IF INDICATED CATH CULTURE IND
[2016-10-21] MEDS: PRAVASTATIN SOD 20 MG TAB PO SCH (21:08)
[2016-10-21] MEDS: MELATONIN 5 MG TAB PO SCH (21:09)
[2016-10-22] VITALS (31 sets, daily range): BP systolic 103–172; BP diastolic 63–92; PULSE 80–104; RESP 20–28; TEMP 97.5–98.9; O2SAT 93–100
[2016-10-22] MEDS: HEPARIN-D5W 25,000 U/250 ML 250 ML IV SCH ×2 (00:18→15:52)
[2016-10-22 00:50] LABS: APTT (PATIENT) 68.6 SEC (24.3-30.1)
[2016-10-22] MEDS: RESP: ALBUTEROL 2.5 MG/IPRATROPIUM 0.5 MG NEB (SCH) NEB ×4 (03:44→19:50)
[2016-10-22] MEDS: CHLORHEXIDINE GLUCONATE 2 % 1 PACK (2 CLOTHS) TOP SCH (04:00)
[2016-10-22] MEDS: QUEtiapine FUMARATE 25 MG TAB PO SCH ×3 (05:57→22:19)
[2016-10-22] MEDS: LEVOTHYROXINE SODIUM 200 MCG TAB PO SCH (05:57)
[2016-10-22] MEDS: METOPROLOL TARTRATE 25 MG TAB G-TUBE SCH ×3 (05:57→22:19)
[2016-10-22] MEDS: BENEPROTEIN POWDER 1 PACK G-TUBE SCH ×3 (09:00→18:00)
[2016-10-22] MEDS: SODIUM CHLORIDE 0.9% FLUSH 10 ML FLUSH IV FLUSH SCH ×2 (09:00→21:13)
[2016-10-22] MEDS: SODIUM CHLORIDE 0.9% FLUSH 10 ML FLUSH IVF SCH (09:00)
[2016-10-22] MEDS: FAMOTIDINE 40 MG/5 ML LIQ 50 ML BTL NG SCH ×2 (09:36→21:13)
[2016-10-22] MEDS: DOCUSATE SODIUM 100 MG/10 ML UDC PO SCH ×2 (09:36→21:13)
[2016-10-22] MEDS: EUCERIN CREAM 120 GM JAR TOPICAL SCH ×2 (09:36→21:00)
[2016-10-22] MEDS: ARTIFICIAL TEARS OPTH SOLN 15 ML BTL EACH EYE SCH ×3 (09:36→18:00)
--- NOTE | 2016-10-22 12:02 | HHI.NPPN ---
Subjective Complaints: Obesity, Shortness of Breath General Problems: Edema, Hypotension, Obesity Renal Failure: Acute Review of Systems General General Remarks no pain Respiratory Lungs: SOB, Cough Neuro Neuro Remarks generalized muscle fasciculation Objective Data Data 10/21/16 10/22/16 19:00 07:00 Intake Total 460 ml 1033 ml Output Total 825 ml 1400 ml Balance -365 ml -367 ml Intake Oral 0 ml IV Total 50 ml 293 ml Tube Feeding 290 ml 620 ml Tube Irrigant 120 ml Other 120 ml Output Urine Total 825 ml 1400 ml Tube Feeding Residual Discard 0 ml # Bowel Movements 1 0 Vital Signs Date Time Temp Pulse Resp B/P Pulse Ox O2 Delivery O2 Flow Rate FiO2 10/22/16 10:00 102 114/76 96 10/22/16 10:00 102 10/22/16 09:01 85 103/63 96 10/22/16 09:00 87 97 10/22/16 08:11 100 Ventilator 40 10/22/16 08:11 100 40 10/22/16 08:00 85 10/22/16 08:00 97.5 85 116/83 99 10/22/16 07:00 99 Mechanical Ventilator 40 10/22/16 07:00 80 111/65 99 10/22/16 06:00 91 151/82 97 10/22/16 06:00 91 10/22/16 05:00 94 150/76 100 10/22/16 04:00 97 10/22/16 04:00 98.5 97 26 110/73 100 10/22/16 03:44 100 40 10/22/16 03:00 87 121/76 98 10/22/16 02:00 81 143/74 98 10/22/16 02:00 81 10/22/16 01:00 85 134/75 100 10/22/16 00:00 81 10/22/16 00:00 81 154/81 100 10/22/16 00:00 98.7 81 20 154/81 100 10/21/16 23:26 100 40 10/21/16 23:00 79 148/70 100 10/21/16 22:00 90 157/94 99 10/21/16 22:00 90 10/21/16 21:00 96 159/73 99 10/21/16 20:00 100 40 10/21/16 20:00 98.8 93 27 173/83 100 10/21/16 20:00 93 10/21/16 19:53 100 40 10/21/16 19:31 24 10/21/16 18:00 94 10/21/16 18:00 99 40 10/21/16 16:00 96 10/21/16 16:00 98.7 96 161/80 100 10/21/16 15:00 88 162/86 100 10/21/16 14:00 91 165/91 100 10/21/16 14:00 91 10/21/16 13:00 95 164/77 98 -: 10/21/16 0726 10/21/16 0726 Microbiology 10/21/16 Urine Culture, Received Pending Tubes & Lines: Perma-Cath Tubes & Lines Comment trach, PEG Drip Comment heparin, Physical Exam General Appearance: No Acute Distress, Comfortable, Obese Eyes Eye Exam: Pupils Equal, Pupils Reactive Throat Throat Exam: Oral Mucosa [place] & Moist Neck Neck Exam: Neck Supple Pulmonary Resp Exam: Crackles, Rhonchi, Sputum, Diminished Breath Sounds Cardiology CV Exam: Regular, Normal Sinus Rhythm, Good Perfusion Gastrointestinal/Abdomen GI Exam: Soft, Bowel Sounds Present Musculoskeletal MS Exam: Joints Intact, Normal Tone Integumentary Skin Exam: Warm, Dry, Intact Extremeties Extremities Exam: Pedal Pulses Palpable, Moderate Edema Neurologic Neuro Exam: Alert, Awake, Oriented, Moving All Extremities Assessment/Plan Discussed Condition With: Patient Assessment Summary: MIKE/Acute Renal Failure, Acute Tubular Necrosis, Fluid/ Volume Overload Electrolyte Assessment: Hypercalcemia, Hyponatremia Problem List: (1) Acute kidney injury Plan: ARF due to ATN HD initiated 09/20; she was dialysis dependent, last treatment 10/14 she is in recovery phase, creatinine improved, no new labs cr 2.05 yesterday, UOP 2.2 L Her creatinine has declined further, potassium is low replace Dr. 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 (3) Anemia Plan: Hb low but stable on heparin and protonix GI has evaluated (4) Pneumonia Plan: afebrile, she is not on antibiotics currently ID has signed off, monitor clinically (5) Hypothyroidism Plan: on synthroid (6) DVT (deep venous thrombosis) Plan: bridge to Coumadin with Heparin , follow INR not therapeutic at this time (7) Morbid obesity (8) Hypercalcemia Plan: improving, likely due to immobility PTH appropriately low monitor for recurrence Problem Qualifiers (1) Pneumonia: Qualified Code: J18.9 - Pneumonia of both lungs due to infectious organism, unspecified part of lung Babs Cruz MD October 22, 2016 12:02
[2016-10-22 13:57] LABS: INTERNATIONAL NORMALIZED RATIO 1.1 RATIO; PROTHROMBIN TIME - PATIENT 12.3 SEC (9.8-11.6)
[2016-10-22 14:11] LABS: BICARBONATE 30.4 MEQ/L (21.0-32.0); POTASSIUM 3.4 MEQ/L (3.5-5.1)
[2016-10-22] MEDS ORDERED: WARFARIN SOD 6 MG TAB PO ONE (16:00)
--- NOTE | 2016-10-22 18:08 | HHI.IDPN ---
Subjective Subjective Remarks remains on Tpiece afebrile large, copious amount s of secretions which pt clears easily Repeat UA very abnormal , and growing GNB Antibiotics None Lines Line sites with no e.o infection. Past Medical History reviewed. Allergies: Coded Allergies: Fentanyl (Verified Adverse Reaction, Severe, rash, 09/21/16) *MDRO Multi-Drug Resistant Organism (Verified Adverse Reaction, Unknown, ) ESBL (urine & sputum)-10/02/16 Objective . Vital Signs Date Time Temp Pulse Resp B/P Pulse Ox O2 Delivery O2 Flow Rate FiO2 10/22/16 18:00 96 10/22/16 17:00 95 119/75 98 10/22/16 16:04 98.4 93 121/75 99 10/22/16 16:00 98.4 94 100 10/22/16 16:00 94 10/22/16 15:00 87 133/88 98 10/22/16 14:00 100 97 10/22/16 14:00 100 10/22/16 13:01 99 170/79 97 10/22/16 13:00 98 96 10/22/16 12:00 97.5 100 140/70 97 10/22/16 12:00 100 10/22/16 11:00 104 145/68 93 10/22/16 10:00 102 114/76 96 10/22/16 10:00 102 10/22/16 09:01 85 103/63 96 10/22/16 09:00 87 97 10/22/16 08:11 100 Ventilator 40 10/22/16 08:11 100 40 10/22/16 08:00 85 10/22/16 08:00 97.5 85 116/83 99 10/22/16 07:00 99 Mechanical Ventilator 40 10/22/16 07:00 80 111/65 99 10/22/16 06:00 91 151/82 97 10/22/16 06:00 91 10/22/16 05:00 94 150/76 100 10/22/16 04:00 97 10/22/16 04:00 98.5 97 26 110/73 100 10/22/16 03:44 100 40 10/22/16 03:00 87 121/76 98 10/22/16 02:00 81 143/74 98 10/22/16 02:00 81 10/22/16 01:00 85 134/75 100 10/22/16 00:00 81 10/22/16 00:00 81 154/81 100 10/22/16 00:00 98.7 81 20 154/81 100 10/21/16 23:26 100 40 10/21/16 23:00 79 148/70 100 10/21/16 22:00 90 157/94 99 10/21/16 22:00 90 10/21/16 21:00 96 159/73 99 10/21/16 20:00 100 40 10/21/16 20:00 98.8 93 27 173/83 100 10/21/16 20:00 93 10/21/16 19:53 100 40 10/21/16 19:31 24 10/21/16 10/21/16 10/22/16 15:00 23:00 07:00 Intake Total 460 ml 527 ml 506 ml Output Total 825 ml 800 ml 600 ml Balance -365 ml -273 ml -94 ml Intake Oral 0 ml IV Total 50 ml 147 ml 146 ml Tube Feeding 290 ml 320 ml 300 ml Tube Irrigant 120 ml Other 60 ml 60 ml Output Urine Total 825 ml 800 ml 600 ml Tube Feeding Residual Discard 0 ml # Bowel Movements 1 0 0 . Laboratory Tests Test 10/21/16 07:26 White Blood Count 7.9 TH/MM3 Red Blood Count 2.75 MIL/MM3 Hemoglobin 7.7 GM/DL Hematocrit 22.9 % Mean Corpuscular Volume 83.4 FL Mean Corpuscular Hemoglobin 27.9 PG Mean Corpuscular Hemoglobin 33.4 % Concent Red Cell Distribution Width 18.0 % Platelet Count 291 TH/MM3 Mean Platelet Volume 6.7 FL Laboratory Tests Test 10/21/16 10/22/16 07:26 13:40 Sodium Level 145 MEQ/L 145 MEQ/L Potassium Level 3.4 MEQ/L 3.4 MEQ/L Chloride Level 105 MEQ/L 104 MEQ/L Carbon Dioxide Level 31.7 MEQ/L 30.4 MEQ/L Anion Gap 8 MEQ/L 11 MEQ/L Blood Urea Nitrogen 68 MG/DL 61 MG/DL Creatinine 2.05 MG/DL 1.72 MG/DL Estimat Glomerular Filtration 25 ML/MIN 31 ML/MIN Rate Random Glucose 124 MG/DL 122 MG/DL Calcium Level 10.2 MG/DL 10.0 MG/DL Phosphorus Level 4.7 MG/DL Albumin 3.6 GM/DL Microbiology Date/Time Procedure Status Source Growth 10/21/16 17:40 Urine Culture - Preliminary Resulted Urine Catheterized Urine Gram Negative [facility] Last Impressions Central Venous Line 10/20/16 0000 Signed Impressions: Service Date/Time: Thursday, October 20, 2016 00:00 - CONCLUSION: Uncomplicated Permcath removal. Didier Zhang MD Chest X-Ray 10/18/16 0600 Signed Impressions: Service Date/Time: Tuesday, October 18, 2016 04:09 - CONCLUSION: Right lung base infiltrate has improved and there is questionable infiltrate left upper lobe with mild prominence of interstitial markings. Danyel Escalante MD Catheter Placement X-Ray 09/29/16 1223 Signed Impressions: Service Date/Time: Thursday, September 29, 2016 12:31 - CONCLUSION: Vas-Cath to PermCath exchange as detailed above. Taco Haas Jr., MD Renal Ultrasound 09/17/16 0000 Signed Impressions: Service Date/Time: Saturday, September 17, 2016 13:31 - CONCLUSION: Negative renal sonogram. Taco Davidson MD Upper Extremity Ultrasound 09/14/16 0000 Signed Impressions: Service Date/Time: August 08:32 - CONCLUSION: There is thrombus within the left subclavian and internal jugular veins. Danyel Escalante MD Lower Extremity Ultrasound 09/13/16 0000 Signed Impressions: Service Date/Time: Tuesday, September 13, 2016 22:33 - CONCLUSION: Normal examination. Leonides Mason MD Liver Ultrasound 09/08/16 0000 Signed Impressions: Service Date/Time: Thursday, September 08, 2016 08:45 - CONCLUSION: 1. Cholelithiasis with distended gallbladder. However, there are no associated findings present to diagnose acute cholecystitis. If there is persistent clinical concern for acute cholecystitis could evaluate for cystic duct obstruction with hepatobiliary scintigraphy. 2. Hepatomegaly with very heterogeneous echotexture and steatosis. Dejan Allison MD Gall Bladder Ultrasound 08/29/16 0000 Signed Impressions: Service Date/Time: Monday, August 29, 2016 15:21 - CONCLUSION: 1. Hepatomegaly with heterogeneous echotexture throughout the liver. 2. There is a large echogenic area near the neck of the gallbladder suggestive of a stone, but despite its large size, demonstrates no acoustic shadowing in any of the views. Taco Davidson MD CT Angiography 08/15/16 0000 Signed Impressions: Service Date/Time: Monday, August 15, 2016 02:33 - CONCLUSION: 1. No evidence for pulmonary embolism. 2. Multifocal consolidation greatest in the right lower lobe and associated adenopathy. Terry Estrada MD Physical Exam GENERAL: Morbidly obese patient, awake, NAD, on the vent SKIN: no rash HEAD: Atraumatic. Normocephalic. No temporal or scalp tenderness. EYES: Pupils equal round and reactive. No scleral icterus. Moist mucosa ENT: No nasal discharge. Dry oral mucosa NECK:Supple. Trach in place, copious yellowish secretions CARDIOVASCULAR: Regular rate and rhythm RESPIRATORY: Clear to auscultation. Breath sounds equal bilaterally. GASTROINTESTINAL: Abdomen soft, obese, non-tender, nondistended. No hepatiomegaly MUSCULOSKELETAL: Extremities without clubbing, cyanosis. Edema , trace NEUROLOGICAL: awake alert, communicates PIV with no evidence of infection : Cline in place with clear yellow urine. Assessment & Plan Remarks Sepsis present on admission. HCAP: ESBL and very MDR PSAE Staph epidermidis: possible contaminant but will repeat HD cath culture. Morbid Obesity (BMI 45.8 kg/m2) Obstructive Sleep Apnea (supposed to be on CPAP at home and home oxygen 2L) Acute respiratory failure vent dependent. Acute metabolic encephalopathy: infection, meds. Thrombosis of cephalic vein. Renal insufficiency, HD on hold as Cr and UO improving. ESBL Kleb pneumo , Stenotroph in the sputum ? colonization; sputum not purulent - clincally doing well; afebrile, with nl WBC - infiltrates on CXR might not be infectious in the nature C. glabrata fungiua- cw colonization, no candiduria on repaet clx with new cline Now bacteriuria vs UTI, GNB - with clinically asymptomatic pt I will cont to hold off abx) Recs: - cont to observe off abx - fu repeat UA, C+S - will start Ertapenem + levaquine po if fever, leukocytosis, or worsening of resp status - repeat UA dw Dr Allen Eaton,Reba Cedeno MD October 22, 2016 18:08
--- NOTE | 2016-10-22 20:56 | HHI.CCPN ---
Subjective Remarks/Hospital Course 56-year-old morbidly obese female brought in the emergency department in respiratory distress. She was intubated by ER attending. She has been sick for about a week with symptoms consistent with UTI. She's had fevers and chills. She's been short of breath. She's had fatigue. She has had a cough and chest pain with coughing. The family reports that she's been delirious for the last 3 days. 08/15 Patient is sedated with Diprivan, Versed, Fentanyl and intubated. CTA chest showed no PE multifocal consolidation greatest in RLL. Tmax 100.6 08/16 Patient is sedated with Diprivan and Fentanyl. Afebrile. CXR this morning showed increase consolidation. 08/17 Patient remains sedated and intubated. T:100.4 On PRVC/AC RR 18, Tv 500, IT :1.0 PEEP:10, FIO2 75% 08/18 Remains sedated and intubated. Afebrile. CXR this morning unchanged bibasilar infiltrates and effusions. 08/19 Patient was placed on rotoprone bed last night for proning sedated with Diprivan, Versed and Fentnayl in addition she is on Nimbex. On PRVC/AC RR 20, TV 400, IT:1.1, PEEP:14 and FIO2 80%. Afebrile. 08/20 Patient remains sedated and intubated. Remains on PRVC/AC mode with improvements in her oxygenation on FIO2 50% from 80% yesterday and PEEP:12. 08/21 Patient remains sedated and intubated. On PRVC/AC mode with RR 20, TV 400, IT:1.1, PEEP: 12 and FIO2 50%. Afebrile. 08/22 No acute events overnight. Remains sedated, intubated and on Nimbex.. T: 99.8. On PRVC mode with PEP: 12, FIO2 50%. CXR from yesterday showed better aeration, RLL infiltrate unchanged. 08/23 Chest x-ray worsening. Methylprednisolone taper to twice a day by pulmonary. The patient's FiO2 was found to be 100% this a.m., will continue to wean. 08/24: 1 desat episode yesterday when supine. still remains prone now. no vasopressors. sedated and paralyzed. 08/25: flolan added yesterday. fio2 down to 60%. remained supine all night. still on neuromuscular blockade. net -500cc/24h. 08/26: good diuresis. remained supine. fio2 70%. weaning flolan. remains with significant respiratory support and high peep despite 6L diuresis overnight. Cr still stable. 08/27: continues with good diuresis. net negative 3L/24h. fio2 down to 55%. flolan off. still high peep. not ready for SBT. more agitated today. Cr remains stable despite aggressive diuresis. 08/28: diuresis continues. -3.3L/24h. spiked fever overnight with a jump in wbc to 16 this AM. fio2 60%, but her pulmonary improvements have plateaued at this point. still on peep 12. 08/29: net -1.7L/24h. Cr starting to rise. still spiking fevers despite vanc/ cefepime added yesterday. wbc continues to rise. clinically appears infected, although unclear source. peep 10, fio2 60%. will likely need trach. 08/30: net +800cc, but Cr downtrending. appears clinically euvolemic. fever curve downtrending. wbc downtrending. on 40% fio2, peep 8 today. still following commands. 08/31: failed SBT after only 45 minutes yesterday. intubated for > 2 weeks at this point. will attempt to pursue trach/peg today. will continue with pulmonary strengthening. daily SBTs. 09/01 CXR showing increasing bibasilar infiltrate. Failed C Pap trial in 5 minutes due to severe tachypnea. PEG tube today. Family has not decided on trach yet 09/02: Patient febrile to 101.1, CXR increased infiltrate Tmax Tmax 101.1. Currently 9.7 left upper lung and right lower lobe. Pancultured. Cefepime added today and one dose of vancomycin. Continues to fail C Pap trial due to tachypnea and respiratory distress 09/03: Remains hypoxemic on 75% oxygen with new pneumonia. Sputum culture 09/02/16 with GNR. Family agreeable for tracheostomy but patient is not stable at this point for trach 09/04: still on 70% fio2. still hypoxic. pneumonia persists. needs trach, but too unstable at this point. 09/05: remains on 75% fio2. pseudomonas sensitivities came back resistant to carbapenems, intermediate to levaquin. still spiking fevers. not clinically improving. wbc remains elevated. 09/06: Remains on 12 of PEEP and FiO2 75%. Zosyn and tobramycin started yesterday. WBC count trending down today 11.5 from 13.1. Remains heavily sedated for ventilator synchrony. MAXIMUM TEMPERATURE 100.3 09/07: Continues to spike fever. CXR unchanged. WBC count improving. PEEP 14. FiO2 60%. Will start IV Bumex 1mg IV q12 09/09: Tolerating tube feeds at goal. Afebrile. No documented bowel movement. Currently sedated on the ventilator 09/10: Tmax 99.7. Currently 99.4. No bowel movement yesterday. None document since 09/04. Arousable on the ventilator 09/11: Tmax 102.6. Currently 100. Positive BM. Arousable on the ventilator. Tolerating tube feeds. Central line changed yesterday. Plan for bronchoscopy at 1 PM. 09/12: Tmax 100.1. Currently afebrile. Follows commands today. Wiggles toes and give thumbs up appropriately. MRI brain canceled. Tolerating tube feeding with positive BM. Tracheostomy currently planned for . 09/13: Tmax 102. Again on sedation [place] commands by wiggling toes bilaterally and giving thumbs up bilaterally appropriate. Tolerating tube feeding with positive BM. Tracheostomy planned for tomorrow with Dr. Ortega. 09/14: Low grade fever. CXR showing more prominent infiltrate on the right lower lobe and left upper lobe. WBC trending up still in normal range. Patient is on 40% FiO2 but continues to fail CPAP due to tachypnea 09/15: Remains intubated sedated, unable to wean off the vent. Plan for tracheostomy today with Dr. Ortega. Continues to have low grade fever. CXR with persistent bibasilar infiltrates 09/16: Tmax 101.1. Currently 100.7. Awake and alert. Following commands. 09/17: Afebrile. Currently on PSV trial. Tolerating tube feeds. One bowel movement. Noted decreased urine output past 48 hours. Diuretics have been discontinued. This a.m. creatinine currently pending. 09/18: Afebrile. Adequate urine output yesterday but decreased 150 past 8 hours. Tolerating tube feeds. One bowel movement. Not tolerating PSV trials today. 09/19: Tmax 100.5. Urine output picking up. Tolerating tube feeds. No bowel movement 48 hours. Not tolerating PSV trials. 09/20: Diffuse drug morbilliform exanthem noted this a.m. Tmax 100.6. Urine output around 20 cc an hour. Not tolerating PSV trials. Possibly new right pleural effusion noted on chest x-ray. Will need hemodialysis 09/21: Tmax 100.6 currently 98.7. -4 L with hemodialysis yesterday and today. FiO2 to 60%. Tolerating tube feeds. Positive BM. Still requiring sedation 09/22: Afebrile. Tolerating tube feeds. Positive BM. 30 g per kilogram per minute of propofol. Tolerated PSV trials 3 hours today 09/23 HD today with 3.5 L removal. Tolerating CPAP for 8 hours, currently 45% with RSBI 45%. 09/24 Called by RN this morning for concern for bloody BMs. Placed heparin and warfarin on hold. Serial Hgb ordered. Hgb 9.3 -->8.6 and hemodynamically unchanged. Started on protonix drip. Heme stool is negative and now RN states she is concerned about the adequacy of specimen, so sending repeat. Had asked GI to see, however further workup will not be indicated if hemoccult is negative. Tolerating PSV 05/06 09/25: heparin restarted. hemocult negative x 2. 09/26: no changes. still failing cpap trials. 09/27: Tmax 101.5. Currently 99.5. Resting on Diprivan drip at 25 mcg/kg/m. Currently tolerating tube feeding.. One bowel movement. 09/28: Hemoglobin trending downward. Transfusing 1 unit PRBCs with hemodialysis today. Currently afebrile. Appears comfortable ventilator 2 bowel movements 09/29 No events overnight. Sedated with Diprivan and on ventilator via trach. T: 99.9 For Perma Cath placement today. s/p HD yesterday with removal 4L and transfusion 1unit PRBC with HD. 09/30: Tmax 100.8. No events overnight. No bowel movement. Tolerating tube feeds. 10/01: Tmax 101.3. Currently resting in bed in no acute distress. Tolerating tube feeds. Chest x-ray revealed atelectasis. -5 L with hemodialysis yesterday. 10/02 Patient remains on ventilator via trach on PRVC/AC with PEEP: 10 and FIO2 50 %. T: 102.1 at 4 am. 10/03 Patient is off sedation on ventilator via trach. Tmax 101.2 last night. For HD today. 10/04: Tmax 101.5. Currently afebrile. Tolerating PSV trial. Hemodialysis - 4.5 L yesterday. Positive BM. New rash. Received chlorhexidine today. 10/05: Tmax 100. Currently 98.9. Positive BM. Tolerating tube feeds. Less erythematous today. Currently on dialysis 10/06: Tmax 99.9. Currently 99.7. Currently on PSV trial 09/12 @ 45%. Tolerating tube feed. Positive bowel movement 10/07: Tmax 99.8. currently psv 10/8/40%. has not been out of bed in weeks due to critical illness. needs to be mobilized. still no placement plan. 10/08: Tmax 100.4. on t-piece currently. tolerated psv yesterday. have ordered specialty chair and currently awaiting it to arrive. 10/09 Patient remains on ventilator via trach, T:99.9 on no sedation. 10/10 No acute events overnight. For HD today on heparin drip. T:99.8, tolerating tube feeds. 10/11 No events overnight. s/p HD yesterday with removal 3.5L. Tmax 100.5. Tolerating CPAP on PS 10, PEEP: 5 and FIO2 40%. 10/12: Patient receiving hemodialysis today. Tolerating CPAP. Very weakly following commands in all 4 extremities 10/13: 6 hours of T piece yesterday. Currently on TPs and following commands slightly better today. 10/14: No acute events reported overnight. Remains on CPAP on the vent. Getting hemodialysis now 10/15: Tachypneic today 35-38 breath per min, maintaining O2 sat. No fever. CXR unchanged. PS increased to 18. Will check ABG 10/16: Awake and alert, remains on mechanical ventilation via tracheostomy. Daily C Pap trials as tolerated. 10/17: Awake and alert. On mechanical ventilation via tracheostomy. Daily C Pap trials ongoing. 10/18: Tmax 101.8 currently 98.6. Awake and alert on the ventilator. Tolerating tube feeding. Positive BM 2. Patient was pancultured blood sputum and urine overnight 10/17 10/19: Afebrile overnight. Currently sitting in bariatric chair. Some brownish secretions from tracheostomy site. On T piece 10/20: Resting in bed in no acute distress. Tolerating T piece. Positive BM. Interactive 10/21: Afebrile. Tolerating T piece. Resting in bed in no acute distress. Interactive. Positive BM. Tolerate feeds. No bleeding from removed tunneled cuffed hemodialysis catheter Subjective 10/22: Afebrile. Tolerating T piece. Resting in bed in no acute distress. Tolerating tube feeds. Objective Vital Signs Date Time Temp Pulse Resp B/P Pulse Ox O2 Delivery O2 Flow Rate FiO2 10/22/16 19:51 100 40 10/22/16 18:00 96 10/22/16 17:00 119/75 10/22/16 16:04 98.4 10/22/16 08:11 Ventilator 10/22/16 04:00 26 10/21/16 07:35 6.00 Intake and Output 10/21/16 10/21/16 10/22/16 08:00 16:00 00:00 Intake Total 407 ml 460 ml 527 ml Output Total 825 ml 800 ml Balance 407 ml -365 ml -273 ml Result Diagram: 10/21/16 0726 10/22/16 1340 Other Results Microbiology Date/Time Procedure Status Source Growth 10/21/16 17:40 Urine Culture - Preliminary Resulted Urine Catheterized Urine Gram Negative Aguila 10/17/16 23:15 Urine Culture - Final Complete Urine Catheterized Urine Maribell Glabrata 10/17/16 23:15 Gram Stain - Final Complete Sputum Endotracheal 10/17/16 23:15 Sputum Culture - Final Complete Klebsiella Pneumoniae Esbl Pos Stenotrophomonas Maltophilia 10/17/16 21:35 Aerobic Blood Culture - Final Complete Blood Peripheral NO GROWTH IN 5 DAYS 10/17/16 21:35 Anaerobic Blood Culture - Final Complete Blood Peripheral NO GROWTH IN 5 DAYS Imaging Last Impressions Central Venous Line 10/20/16 0000 Signed Impressions: Service Date/Time: Thursday, October 20, 2016 00:00 - CONCLUSION: Uncomplicated Permcath removal. Didier Zhang MD Chest X-Ray 10/18/16 0600 Signed Impressions: Service Date/Time: Tuesday, October 18, 2016 04:09 - CONCLUSION: Right lung base infiltrate has improved and there is questionable infiltrate left upper lobe with mild prominence of interstitial markings. Danyel Escalante MD Catheter Placement X-Ray 09/29/16 1223 Signed Impressions: Service Date/Time: Thursday, September 29, 2016 12:31 - CONCLUSION: Vas-Cath to PermCath exchange as detailed above. Taco Haas Jr., MD Renal Ultrasound 09/17/16 0000 Signed Impressions: Service Date/Time: Saturday, September 17, 2016 13:31 - CONCLUSION: Negative renal sonogram. Taco Davidson MD Upper Extremity Ultrasound 09/14/16 0000 Signed Impressions: Service Date/Time: August 08:32 - CONCLUSION: There is thrombus within the left subclavian and internal jugular veins. Danyel Escalante MD Lower Extremity Ultrasound 09/13/16 0000 Signed Impressions: Service Date/Time: Tuesday, September 13, 2016 22:33 - CONCLUSION: Normal examination. Leonides Mason MD Liver Ultrasound 09/08/16 0000 Signed Impressions: Service Date/Time: Thursday, September 08, 2016 08:45 - CONCLUSION: 1. Cholelithiasis with distended gallbladder. However, there are no associated findings present to diagnose acute cholecystitis. If there is persistent clinical concern for acute cholecystitis could evaluate for cystic duct obstruction with hepatobiliary scintigraphy. 2. Hepatomegaly with very heterogeneous echotexture and steatosis. Dejan Allison MD Gall Bladder Ultrasound 08/29/16 0000 Signed Impressions: Service Date/Time: Monday, August 29, 2016 15:21 - CONCLUSION: 1. Hepatomegaly with heterogeneous echotexture throughout the liver. 2. There is a large echogenic area near the neck of the gallbladder suggestive of a stone, but despite its large size, demonstrates no acoustic shadowing in any of the views. Taco Davidson MD CT Angiography 08/15/16 0000 Signed Impressions: Service Date/Time: Monday, August 15, 2016 02:33 - CONCLUSION: 1. No evidence for pulmonary embolism. 2. Multifocal consolidation greatest in the right lower lobe and associated adenopathy. Terry Estrada MD Objective Remarks GENERAL: 56 yo female currently on T piece in no acute distress SKIN: Warm and dry. Skin is flaky. Noted stage I to 2 decubitus ulcer\coccyx and back covered with Mepilex HEAD: Normocephalic. Atraumatic EYES: No scleral icterus. No injection or drainage. NECK: Neck is obese. Right subclavian hemodialysis catheters clean dry and intact. Tracheostomy site is clean dry and intact CARDIOVASCULAR: RRR. S1, S2. No S4. Without murmur RESPIRATORY: Diminished breath sounds throughout due to body habitus. GASTROINTESTINAL: Abdomen obese, soft, non-tender, hypoactive active bowel sounds. G-tube is clean dry and intact MUSCULOSKELETAL: 1+ edema BUE. Neuro: Awake, makes eye contact and nods to questions. Following commands moving upper and lower extremity spontaneously, though still very weak. A/P Problem List: (1) ARDS (adult respiratory distress syndrome) ICD Code: J80 Status: Acute (2) CHF (congestive heart failure) ICD Code: I50.9 Status: Acute (3) Respiratory failure ICD Code: J96.90 Status: Acute (4) Pneumonia ICD Code: J18.9 Status: Acute Assessment and Plan Neuro/Psych: Acute toxic metabolic encephalopathy Critical care myopathy Agitated delirium- improving. Minimize sedation Monitor neuro status. Fentanyl allergy On Seroquel 75 mg every 8 hours for agitation Melatonin 5mg po qHS for insomnia Acetaminophen for fever/pain Pulm: Acute on chronic hypercapnic and hypoxemic respiratory failure ARDS- resolved. Pneumonia community-acquired, now with HCAP with carbapenem-resistant pseudomonas and ESBL Klebsiella VAP. 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 Beck Gen surgery Dr. Ortega s/p s tracheostomy 09/15 Pulm toilet, trach care CV: Hypertension Dyslipidemia Elevated troponin - likely strain On Lopressor 50mg Q8 monitor HR and BP keep MAP>65mmHg As needed labetalol, hydralazine and Nitropaste for hypertension Echo 08/14 showed EF 65-70% mild AR/TR On Pravachol 20 mg a night for dyslipidemia Renal/: Acute kidney injury - requiring hemodialysis Dr. Tan -nephrology following. Hemodialysis Sunday//Sunday currently on hold. Tunneled cuff catheter discontinued 10/20 Reading currently trending downward currently 1.7 MIKE: ATN from sepsis syndrome and diminished renal perfusion; also aminoglycoside induced nephrotoxicity likely also contributing; possibly AIN -> per nephrology note Urine eosinophils negative. Renal ultrasound revealed no hydronephrosis Monitor renal function, I/O's, avoid nephrotoxins. Miller placed for accurate I's and O's GI: Elevated transaminases Cholelithiasis On TF Nepro's 45 cc an hour and Beneprotein 2 packs 3 times a day s/p PEG placement 09/01/[address] Ritter Pepcid 10mg BID GI prophylaxis Having BM US liver: Steatosis and cholelithiasis. Repeat 09/08 revealed cholelithiasis with no acute signs of cholecystitis. ID: Pseudomonas pneumonia Funguria, Maribell glabrata and parapsilosis. Currently off all antibiotics ID following. Pertinent cultures blood and sputum cx 08/15- NG strep pneumonia and Legionella urinary Ag negative Blood cultures 08/28: NGTD C Diff negative 08/28. Lines changed 08/28. Sputum 08/30 - Pseudomonas Sputum 09/02 PSAE, resistant to carbapenem, intermediate to Levaquin. 09/07 - urine -Maribell Guilliermondii 09/07 - blood cultures 2 - no growth 09/09 - urine -strep viridans, Maribell parapsilosis 09/10 - blood cultures 2 -no growth 09/11 - broch washings -no growth to date 09/12 - urine -Maribell glabrata and parapsilosis 09/16 - blood cultures 2 - pending 09/16 - sputum -no growth 09/16 - urine -Maribell glabrata and parapsilosis 10/02 - blood cultures 2 - staph epi 10/02 - urine - ESBL positive Klebsiella 10/04 - blood cultures 2 -no growth 10/05 - blood cultures 2 -no growth 10/17 - blood cultures -no growth 10/17 - sputum -Klebsiella ESBL positive and Stenotrophomonas maltophilia 10/17 - urine -C glabrata 10/20 - urine - gram-negative aguila Zosyn previously discontinued secondary to rash Followed by Dr. Uribe. Out of town. Patient asymptomatic. Dr. 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 10/14, pharmacy dosing currently at 12 mg daily. IV Heparin started due to subtherapeutic last PTT PTT on heparin drip currently therapeutic Endo: Diabetes mellitus Hypothyroidism on SSI (medium scale) for glycemic control On Synthroid 200mcg daily. TSH 1.37 GI prophylaxis-Protonix 40mg Q12 DVT - IV heparin until therapeutic on Coumadin Lines: Peripheral IV. - PEG 09/01/16 - Trach 09/15 - Right Permacath placed 09/29 Loree Marinelli, daughter (HCP): [phone] Rony Marinelli, significant other: [phone] Level II Problem Qualifiers (1) CHF (congestive heart failure): Qualified Code: I50.9 - Acute congestive heart failure, unspecified congestive heart failure type (2) Respiratory failure: Qualified Code: J96.02 - Acute respiratory failure with hypercapnia (3) Pneumonia: Qualified Code: J18.9 - Pneumonia of both lungs due to infectious organism, unspecified part of lung Fadi Villa MD October 22, 2016 20:56
[2016-10-22] MEDS: MELATONIN 5 MG TAB PO SCH (21:13)
[2016-10-22] MEDS: PRAVASTATIN SOD 20 MG TAB PO SCH (21:13)
[2016-10-22 21:59] LABS: BACTERIA, URINE OCC /hpf; BLOOD, URINE NEG (NEG); COMMENT (UR) CULTURE INDICATED; CULTURE IF INDICATED CULTURE INDICATED; GLUCOSE,URINE NEG (NEG); KETONE, URINE NEG (NEG); MUCUS URINE FEW /lpf (OCC); SQUAMOUS EPITHELIAL CELL URINE <1 /hpf (0-5); URINE COLOR YELLOW (YELLW/STRAW)
[2016-10-22 22:01] LABS: NITRITE,URINE POS (NEG)
[2016-10-22] MEDS: MORPHINE SULFATE 4 MG/ML INJ IV PRN (22:19)
[2016-10-23] VITALS (25 sets, daily range): BP systolic 106–208; BP diastolic 66–118; PULSE 55–105; RESP 18–20; TEMP 98.5–98.6; O2SAT 94–100
[2016-10-23] MEDS: MORPHINE SULFATE 4 MG/ML INJ IV PRN ×3 (02:34→10:09)
[2016-10-23] MEDS: RESP: ALBUTEROL 2.5 MG/IPRATROPIUM 0.5 MG NEB (SCH) NEB ×4 (02:59→20:42)
[2016-10-23] MEDS: CHLORHEXIDINE GLUCONATE 2 % 1 PACK (2 CLOTHS) TOP SCH (04:00)
[2016-10-23] MEDS: LEVOTHYROXINE SODIUM 200 MCG TAB PO SCH (05:33)
[2016-10-23] MEDS: METOPROLOL TARTRATE 25 MG TAB G-TUBE SCH ×3 (05:33→21:12)
[2016-10-23] MEDS: QUEtiapine FUMARATE 25 MG TAB PO SCH ×3 (05:34→20:07)
[2016-10-23] MEDS: HEPARIN-D5W 25,000 U/250 ML 250 ML IV SCH ×2 (05:49→20:09)
[2016-10-23 06:11] LABS: AUTOMATED NEUTROPHIL # 4.3 TH/MM3 (1.8-7.7); BASOPHIL # 0.1 TH/MM3 (0-0.2); BASOPHIL % 1.4 % (0.0-2.0); EOSINOPHIL # 0.5 TH/MM3 (0-0.4); EOSINOPHIL % 5.8 % (0.0-4.0); HEMATOCRIT 23.3 % (35.0-46.0); LYMPH % 36.4 % (9.0-44.0); LYMPHOCYTE # 3.4 TH/MM3 (1.0-4.8); MEAN CELL VOLUME 84.2 FL (80.0-100.0); MEAN CORPUSCULAR HEMOGLOBIN 28.6 PG (27.0-34.0); MONO % 10.5 % (0.0-8.0); NEUT % 45.9 % (16.0-70.0); PLATELET COUNT 312 TH/MM3 (150-450); RED BLOOD COUNT 2.77 MIL/MM3 (4.00-5.30); RED CELL DISTRIBUTION WIDTH 18.4 % (11.6-17.2); WHITE BLOOD COUNT 9.4 TH/MM3 (4.0-11.0)
[2016-10-23 06:18] LABS: HEMO FLAGS AUTO DIFF
[2016-10-23 06:26] LABS: INTERNATIONAL NORMALIZED RATIO 1.1 RATIO; PROTHROMBIN TIME - PATIENT 12.7 SEC (9.8-11.6)
[2016-10-23 06:40] LABS: ALT (GPT) 42 U/L (10-53); ANION GAP 11 MEQ/L (5-15); AST (GOT) 23 U/L (15-37); BICARBONATE 32.9 MEQ/L (21.0-32.0); BLOOD UREA NITROGEN 57 MG/DL (7-18); CHLORIDE 102 MEQ/L (98-107); GLOMERULAR FILTRATION RATE 33 ML/MIN (>89); MAGNESIUM 2.3 MG/DL (1.5-2.5); POTASSIUM 3.1 MEQ/L (3.5-5.1); SODIUM (NA) 146 MEQ/L (136-145)
[2016-10-23 06:43] LABS: ALKALINE PHOSPHATASE 79 U/L (45-117); TOTAL BILIRUBIN ADULT 0.3 MG/DL (0.2-1.0)
--- NOTE | 2016-10-23 06:56 | RADRPT ---
EXAM DATE/TIME: 10/23/2016 05:27 [facility] COMPARISON: CHEST SINGLE AP, October 18, 2016, 4:09. INDICATIONS : Respiratory failure. MEDICAL HISTORY : None. SURGICAL HISTORY : None. ENCOUNTER: Subsequent ACUITY: 4 - 6 days PAIN SCORE: Non-responsive. LOCATION: Bilateral chest FINDINGS: Tracheostomy is present in good position. There has been interval removal of a dialysis catheter. Lef t upper lobe parenchymal opacity is grossly stable. There is mild infiltrate in the right lung base. Accounting for rotation, cardiac contours are stable. CONCLUSION: Interval dialysis catheter removal. Slight interval worsening in aeration at the right lung base Dejan Cervantes MD on October 23, 2016 at 6:53 Board Certified Radiologist. This report was verified electronically.
[2016-10-23] MEDS: BENEPROTEIN POWDER 1 PACK G-TUBE SCH ×3 (09:00→18:00)
[2016-10-23] MEDS: SODIUM CHLORIDE 0.9% FLUSH 10 ML FLUSH IVF SCH (09:00)
[2016-10-23 09:05] LABS: BANDS 6 % (0-6); BASOPHILS 2 % (0-2); CORRECTED NUCLEATED RBC 1 /100 WBC (0-0); EOSINOPHILS 8 % (0-4); METAMYELOCYTES 4 % (0-1); MYELOCYTES 3 % (0-0); POLYS (SEG NEUTROPHILS) 40 % (16-70); WBC DIFF SAMPLE 100
[2016-10-23 09:06] LABS: PLATELET ESTIMATE SMEAR NORMAL (NORMAL); PLATELET MORPHOLOGY NORMAL (NORMAL); SCAN/DIFF FINAL DIFF MANUAL
--- NOTE | 2016-10-23 09:53 | HHI.NPPN ---
Subjective Complaints: Obesity, Shortness of Breath General Problems: Edema, Hypotension, Obesity Renal Failure: Acute Interval History She is off the ventilator. She responds to verbal cues. Understands conversation. Non oliguric. Renal function continues to improve. Review of Systems General General Remarks no pain Respiratory Lungs: SOB, Cough Neuro Neuro Remarks generalized muscle fasciculation Objective Data Data 10/22/16 10/23/16 19:00 07:00 Intake Total 466 ml 1035 ml Output Total 800 ml 1265.0 ml Balance -334 ml -230.0 ml Intake Oral 0 ml IV Total 146 ml 276 ml Tube Feeding 200 ml 639 ml Tube Irrigant 120 ml Other 120 ml Output Urine Total 800 ml 1265 ml Tube Feeding Residual Discard 0 ml # Bowel Movements 0 1 Vital Signs Date Time Temp Pulse Resp B/P Pulse Ox O2 Delivery O2 Flow Rate FiO2 10/23/16 08:40 40 10/23/16 08:40 100 T-piece 8.00 40 10/23/16 06:00 87 148/115 100 10/23/16 06:00 87 10/23/16 05:01 85 144/66 95 10/23/16 05:00 55 94 10/23/16 04:00 87 10/23/16 04:00 98.5 87 18 153/72 100 10/23/16 03:00 77 129/87 99 10/23/16 03:00 100 40 10/23/16 02:39 16 10/23/16 02:21 80 129/74 100 10/23/16 02:01 82 208/85 99 10/23/16 02:00 82 97 10/23/16 02:00 82 10/23/16 01:01 76 139/74 98 10/23/16 01:00 77 98 10/23/16 00:01 78 174/70 100 10/23/16 00:00 78 10/23/16 00:00 78 100 10/23/16 00:00 98.5 78 106/78 100 10/22/16 23:48 100 40 10/22/16 23:01 80 155/76 99 10/22/16 23:00 80 100 10/22/16 22:00 93 167/92 99 10/22/16 22:00 93 10/22/16 21:00 92 153/76 99 10/22/16 20:00 92 10/22/16 20:00 98.9 92 28 172/77 98 10/22/16 20:00 98 Bi-Pap 40 10/22/16 19:51 100 40 10/22/16 18:00 96 10/22/16 17:00 95 119/75 98 10/22/16 16:04 98.4 93 121/75 99 10/22/16 16:00 98.4 94 100 10/22/16 16:00 94 10/22/16 15:00 87 133/88 98 10/22/16 14:00 100 97 10/22/16 14:00 100 10/22/16 13:01 99 170/79 97 10/22/16 13:00 98 96 10/22/16 12:00 97.5 100 140/70 97 10/22/16 12:00 100 10/22/16 11:00 104 145/68 93 10/22/16 10:00 102 114/76 96 10/22/16 10:00 102 -: 10/23/16 0528 10/23/16 0528 Microbiology 10/22/16 Urine Culture, Received Pending Tubes & Lines: Perma-Cath Tubes & Lines Comment trach, PEG Drip Comment heparin, Physical Exam General Appearance: No Acute Distress, Comfortable, Obese Eyes Eye Exam: Pupils Equal, Pupils Reactive Throat Throat Exam: Oral Mucosa Silo & Moist Neck Neck Exam: Neck Supple Pulmonary Resp Exam: Clear Bilaterally Cardiology CV Exam: Regular, Normal Sinus Rhythm, Good Perfusion Gastrointestinal/Abdomen GI Exam: Soft, Bowel Sounds Present Musculoskeletal MS Exam: Joints Intact, Normal Tone Integumentary Skin Exam: Warm, Dry, Intact Extremeties Extremities Exam: No Edema, Pedal Pulses Palpable Neurologic Neuro Exam: Alert, Awake, Oriented, Moving All Extremities Assessment/Plan Discussed Condition With: Patient Assessment Summary: MIKE/Acute Renal Failure, Acute Tubular Necrosis, Fluid/ Volume Overload Electrolyte Assessment: Hypercalcemia, Hyponatremia Problem List: (1) Acute kidney injury Plan: ARF due to ATN HD initiated 09/20; she was dialysis dependent, last treatment 10/14 she is in recovery phase, creatinine improved. Replace potassium: apparently pharmacy does not have liquid formulation and so replacement will have to be carried out intravenously. She has a PEG tube, and K tab cannot be crushed. (2) ARDS (adult respiratory distress syndrome) Plan: s/p trach placement on T piece [employer] and respiratory 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 (3) Anemia Plan: Hb low but stable on heparin and protonix GI has evaluated (4) Pneumonia Plan: afebrile, she is not on antibiotics currently ID has signed off, monitor clinically (5) Hypothyroidism Plan: on synthroid (6) DVT (deep venous thrombosis) Plan: bridge to Coumadin with Heparin , follow INR not therapeutic at this time (7) Morbid obesity (8) Hypercalcemia Plan: Improved, likely is due to chronic immobilization. Problem Qualifiers (1) Pneumonia: Qualified Code: J18.9 - Pneumonia of both lungs due to infectious organism, unspecified part of lung Anshu Tan MD October 23, 2016 09:52
[2016-10-23] MEDS ORDERED: POTASSIUM CHLORIDE 10 MEQ CONTROLLED RELEASE TAB PO ONE (10:00)
[2016-10-23] MEDS: DOCUSATE SODIUM 100 MG/10 ML UDC PO SCH ×2 (10:09→20:10)
[2016-10-23] MEDS: POTASSIUM CHLOR 10 MEQ PREMIX 100 ML IV SCH ×3 (10:09→12:00)
[2016-10-23] MEDS: SODIUM CHLORIDE 0.9% FLUSH 10 ML FLUSH IV FLUSH SCH ×2 (10:10→20:07)
[2016-10-23] MEDS: EUCERIN CREAM 120 GM JAR TOPICAL SCH ×2 (10:10→20:11)
[2016-10-23] MEDS: FAMOTIDINE 40 MG/5 ML LIQ 50 ML BTL NG SCH ×2 (10:10→20:10)
[2016-10-23] MEDS: ARTIFICIAL TEARS OPTH SOLN 15 ML BTL EACH EYE SCH ×3 (10:11→18:00)
[2016-10-23 10:32] LABS: APTT (PATIENT) 58.3 SEC (24.3-30.1)
--- NOTE | 2016-10-23 12:47 | HHI.IDPN ---
Subjective Subjective Remarks remains on Tpiece afebrile doing really well Much less secretions repeat UA better Antibiotics None Lines Line sites with no e.o infection. Past Medical History reviewed. Allergies: Coded Allergies: Fentanyl (Verified Adverse Reaction, Severe, rash, 09/21/16) *MDRO Multi-Drug Resistant Organism (Verified Adverse Reaction, Unknown, ) ESBL (urine & sputum)-10/02/16 Objective . Vital Signs Date Time Temp Pulse Resp B/P Pulse Ox O2 Delivery O2 Flow Rate FiO2 10/23/16 12:00 97 10/23/16 10:00 95 10/23/16 08:40 40 10/23/16 08:40 100 T-piece 8.00 40 10/23/16 08:00 79 10/23/16 07:00 97 Mechanical Ventilator 40 10/23/16 06:00 87 148/115 100 10/23/16 06:00 87 10/23/16 05:01 85 144/66 95 10/23/16 05:00 55 94 10/23/16 04:00 87 10/23/16 04:00 98.5 87 18 153/72 100 10/23/16 03:00 77 129/87 99 10/23/16 03:00 100 40 10/23/16 02:39 16 10/23/16 02:21 80 129/74 100 10/23/16 02:01 82 208/85 99 10/23/16 02:00 82 97 10/23/16 02:00 82 10/23/16 01:01 76 139/74 98 10/23/16 01:00 77 98 10/23/16 00:01 78 174/70 100 10/23/16 00:00 78 10/23/16 00:00 78 100 10/23/16 00:00 98.5 78 106/78 100 10/22/16 23:48 100 40 10/22/16 23:01 80 155/76 99 10/22/16 23:00 80 100 10/22/16 22:00 93 167/92 99 10/22/16 22:00 93 10/22/16 21:00 92 153/76 99 10/22/16 20:00 92 10/22/16 20:00 98.9 92 28 172/77 98 10/22/16 20:00 98 Bi-Pap 40 10/22/16 19:51 100 40 10/22/16 18:00 96 10/22/16 17:00 95 119/75 98 10/22/16 16:04 98.4 93 121/75 99 10/22/16 16:00 98.4 94 100 10/22/16 16:00 94 10/22/16 15:00 87 133/88 98 10/22/16 14:00 100 97 10/22/16 14:00 100 10/22/16 13:01 99 170/79 97 10/22/16 13:00 98 96 10/22/16 10/22/16 10/23/16 15:00 23:00 07:00 Intake Total 466 ml 562 ml 473 ml Output Total 800 ml 740 ml 525 ml Balance -334 ml -178 ml -52 ml Intake Oral 0 ml IV Total 146 ml 146 ml 130 ml Tube Feeding 200 ml 356 ml 283 ml Tube Irrigant 120 ml Other 60 ml 60 ml Output Urine Total 800 ml 740 ml 525 ml Tube Feeding Residual Discard 0 ml 0 ml # Bowel Movements 0 0 1 . Laboratory Tests Test 10/23/16 05:28 White Blood Count 9.4 TH/MM3 Red Blood Count 2.77 MIL/MM3 Hemoglobin 7.9 GM/DL Hematocrit 23.3 % Mean Corpuscular Volume 84.2 FL Mean Corpuscular Hemoglobin 28.6 PG Mean Corpuscular Hemoglobin 34.0 % Concent Red Cell Distribution Width 18.4 % Platelet Count 312 TH/MM3 Mean Platelet Volume 7.0 FL Neutrophils (%) (Auto) 45.9 % Lymphocytes (%) (Auto) 36.4 % Monocytes (%) (Auto) 10.5 % Eosinophils (%) (Auto) 5.8 % Basophils (%) (Auto) 1.4 % Neutrophils # (Auto) 4.3 TH/MM3 Lymphocytes # (Auto) 3.4 TH/MM3 Monocytes # (Auto) 1.0 TH/MM3 Eosinophils # (Auto) 0.5 TH/MM3 Basophils # (Auto) 0.1 TH/MM3 CBC Comment AUTO DIFF Differential Total Cells 100 Counted Neutrophils % (Manual) 40 % Band Neutrophils % 6 % Lymphocytes % 34 % Monocytes % 3 % Eosinophils % 8 % Basophils % 2 % Neutrophils # (Manual) 5.0 TH/MM3 Metamyelocytes 4 % Myelocytes 3 % Nucleated Red Blood Cells 1 /100 WBC Differential Comment FINAL DIFF MANUAL Platelet Estimate NORMAL Platelet Morphology Comment NORMAL Laboratory Tests Test 10/22/16 10/23/16 13:40 05:28 Sodium Level 145 MEQ/L 146 MEQ/L Potassium Level 3.4 MEQ/L 3.1 MEQ/L Chloride Level 104 MEQ/L 102 MEQ/L Carbon Dioxide Level 30.4 MEQ/L 32.9 MEQ/L Anion Gap 11 MEQ/L 11 MEQ/L Blood Urea Nitrogen 61 MG/DL 57 MG/DL Creatinine 1.72 MG/DL 1.63 MG/DL Estimat Glomerular Filtration 31 ML/MIN 33 ML/MIN Rate Random Glucose 122 MG/DL 107 MG/DL Calcium Level 10.0 MG/DL 9.7 MG/DL Phosphorus Level 4.5 MG/DL Magnesium Level 2.3 MG/DL Total Bilirubin 0.3 MG/DL Aspartate Amino Transf 23 U/L (AST/SGOT) Alanine Aminotransferase 42 U/L (ALT/SGPT) Alkaline Phosphatase 79 U/L Total Protein 6.5 GM/DL Albumin 3.5 GM/DL Microbiology Date/Time Procedure Status Source Growth 10/21/16 17:40 Urine Culture - Final Complete Urine Catheterized Urine Klebsiella Pneumoniae Esbl Pos 10/22/16 21:20 Urine Culture Received Urine Clean Catch Pending Imaging Last Impressions Chest X-Ray 10/23/16 0600 Signed Impressions: Service Date/Time: Sunday, October 23, 2016 05:27 - CONCLUSION: Interval dialysis catheter removal. Slight interval worsening in aeration at the right lung base Dejan Cervantes MD Central Venous Line 10/20/16 0000 Signed Impressions: Service Date/Time: Thursday, October 20, 2016 00:00 - CONCLUSION: Uncomplicated Permcath removal. Didier Zhang MD Catheter Placement X-Ray 09/29/16 1223 Signed Impressions: Service Date/Time: Thursday, September 29, 2016 12:31 - CONCLUSION: Vas-Cath to PermCath exchange as detailed above. Taco Haas Jr., MD Renal Ultrasound 09/17/16 0000 Signed Impressions: Service Date/Time: Saturday, September 17, 2016 13:31 - CONCLUSION: Negative renal sonogram. Taco Davidson MD Upper Extremity Ultrasound 09/14/16 0000 Signed Impressions: Service Date/Time: August 08:32 - CONCLUSION: There is thrombus within the left subclavian and internal jugular veins. Danyel Escalante MD Lower Extremity Ultrasound 09/13/16 0000 Signed Impressions: Service Date/Time: Tuesday, September 13, 2016 22:33 - CONCLUSION: Normal examination. Leonides Mason MD Liver Ultrasound 09/08/16 0000 Signed Impressions: Service Date/Time: Thursday, September 08, 2016 08:45 - CONCLUSION: 1. Cholelithiasis with distended gallbladder. However, there are no associated findings present to diagnose acute cholecystitis. If there is persistent clinical concern for acute cholecystitis could evaluate for cystic duct obstruction with hepatobiliary scintigraphy. 2. Hepatomegaly with very heterogeneous echotexture and steatosis. Dejan Allison MD Gall Bladder Ultrasound 08/29/16 0000 Signed Impressions: Service Date/Time: Monday, August 29, 2016 15:21 - CONCLUSION: 1. Hepatomegaly with heterogeneous echotexture throughout the liver. 2. There is a large echogenic area near the neck of the gallbladder suggestive of a stone, but despite its large size, demonstrates no acoustic shadowing in any of the views. Taco Davidson MD CT Angiography 08/15/16 0000 Signed Impressions: Service Date/Time: Monday, August 15, 2016 02:33 - CONCLUSION: 1. No evidence for pulmonary embolism. 2. Multifocal consolidation greatest in the right lower lobe and associated adenopathy. Terry Estrada MD Physical Exam GENERAL: Morbidly obese patient, awake, NAD, on the vent SKIN: no rash HEAD: Atraumatic. Normocephalic. No temporal or scalp tenderness. EYES: Pupils equal round and reactive. No scleral icterus. Moist mucosa ENT: No nasal discharge. Dry oral mucosa NECK:Supple. Trach in place, copious yellowish secretions CARDIOVASCULAR: Regular rate and rhythm RESPIRATORY: transmitted upper airway sounds GASTROINTESTINAL: Abdomen soft, obese, non-tender, nondistended. No hepatiomegaly MUSCULOSKELETAL: Extremities without clubbing, cyanosis. Edema , trace NEUROLOGICAL: awake alert, communicates PIV with no evidence of infection : Cline in place with clear yellow urine. Assessment & Plan Remarks Sepsis present on admission. HCAP: ESBL and very MDR PSAE Staph epidermidis: possible contaminant but will repeat HD cath culture. Morbid Obesity (BMI 45.8 kg/m2) Obstructive Sleep Apnea (supposed to be on CPAP at home and home oxygen 2L) Acute respiratory failure vent dependent. Acute metabolic encephalopathy: infection, meds. Thrombosis of cephalic vein. Renal insufficiency, HD on hold as Cr and UO improving. ESBL Kleb pneumo , Stenotroph in the sputum - much improved secretions ? colonization; sputum not purulent - clincally doing well; afebrile, with nl WBC - infiltrates on CXR might not be infectious in the nature C. glabrata fungiua- cw colonization, no candiduria on repaet clx with new cline Now bacteriuria less likely UTI, ESBL Kleb pneumo - with clinically asymptomatic pt I will cont to hold off abx) Recs: - cont to observe off abx - fu repeat urine C+S - will start Ertapenem Reba Arriola RN, MD October 23, 2016 12:47
--- NOTE | 2016-10-23 13:23 | HHI.PR ---
Subjective Remarks On T Bar at 40 %. Tolerated it all morning Feels better . Able to move more Objective Vital Signs Date Time Temp Pulse Resp B/P Pulse Ox O2 Delivery O2 Flow Rate FiO2 10/23/16 12:00 97 10/23/16 10:00 95 10/23/16 08:40 40 10/23/16 08:40 100 T-piece 8.00 40 10/23/16 08:00 79 10/23/16 07:00 97 Mechanical Ventilator 40 10/23/16 06:00 87 148/115 100 10/23/16 06:00 87 10/23/16 05:01 85 144/66 95 10/23/16 05:00 55 94 10/23/16 04:00 87 10/23/16 04:00 98.5 87 18 153/72 100 10/23/16 03:00 77 129/87 99 10/23/16 03:00 100 40 10/23/16 02:39 16 10/23/16 02:21 80 129/74 100 10/23/16 02:01 82 208/85 99 10/23/16 02:00 82 97 10/23/16 02:00 82 10/23/16 01:01 76 139/74 98 10/23/16 01:00 77 98 10/23/16 00:01 78 174/70 100 10/23/16 00:00 78 10/23/16 00:00 78 100 10/23/16 00:00 98.5 78 106/78 100 10/22/16 23:48 100 40 10/22/16 23:01 80 155/76 99 10/22/16 23:00 80 100 10/22/16 22:00 93 167/92 99 10/22/16 22:00 93 10/22/16 21:00 92 153/76 99 10/22/16 20:00 92 10/22/16 20:00 98.9 92 28 172/77 98 10/22/16 20:00 98 Bi-Pap 40 10/22/16 19:51 100 40 10/22/16 18:00 96 10/22/16 17:00 95 119/75 98 10/22/16 16:04 98.4 93 121/75 99 10/22/16 16:00 98.4 94 100 10/22/16 16:00 94 10/22/16 15:00 87 133/88 98 10/22/16 14:00 100 97 10/22/16 14:00 100 I/O 10/22/16 10/22/16 10/22/16 10/23/16 10/23/16 10/23/16 07:00 15:00 23:00 07:00 15:00 23:00 Intake Total 506 ml 466 ml 562 ml 473 ml Output Total 600 ml 800 ml 740 ml 525 ml Balance -94 ml -334 ml -178 ml -52 ml Intake Oral 0 ml 0 ml IV Total 146 ml 146 ml 146 ml 130 ml Tube Feeding 300 ml 200 ml 356 ml 283 ml Tube Irrigant 120 ml Other 60 ml 60 ml 60 ml Output Urine Total 600 ml 800 ml 740 ml 525 ml Tube Feeding Residual Discard 0 ml 0 ml # Bowel Movements 0 0 0 1 Result Diagram: 10/23/1652710/23/16527 Objective Remarks This is an obese middle-aged white female who is responsive. HEENT: Head normocephalic.throat clear. Neck: No bruits, no thyroid enlargement, no lymphadenopathy.No JVD Chest: Decreased breath sounds. Few Basal crackles. Wheeze heard. Heart: Heart sounds were regular. S1-S2 no murmur, no S3. Abdomen: Soft, benign. No masses, or tenderness. Bowel sounds are active. Extremities:min edema . Neuro :Moves all limbs. Awake . Assessment and Plan Assessment and Plan IMPRESSION 1. Acute hypercapnic respiratory failure.Resolving 2. Pulmonary edema. 3. Drug rash 4. Obstructive sleep apnea syndrome 5. Hypertension 6. Hypothyroidism. 7. MIKE Plan : 1. Cont on T Bar 35 % daytime upto 15 hrs 2. Trach toilet and suctioning. 3. Nebs qid , duoneb. 4. Place on CPAP/PSV 10/06, 35 % at HS 5. Antibiotics per ID 6. PT and OT 7. Tube feeds at 50 CC 8. Pureed PO diet . 9. Rehab soon. Abimael Beck MD October 23, 2016 13:23
--- NOTE | 2016-10-23 14:02 | HHI.CCPN ---
Subjective Remarks/Hospital Course 56-year-old morbidly obese female brought in the emergency department in respiratory distress. She was intubated by ER attending. She has been sick for about a week with symptoms consistent with UTI. She's had fevers and chills. She's been short of breath. She's had fatigue. She has had a cough and chest pain with coughing. The family reports that she's been delirious for the last 3 days. 08/15 Patient is sedated with Diprivan, Versed, Fentanyl and intubated. CTA chest showed no PE multifocal consolidation greatest in RLL. Tmax 100.6 08/16 Patient is sedated with Diprivan and Fentanyl. Afebrile. CXR this morning showed increase consolidation. 08/17 Patient remains sedated and intubated. T:100.4 On PRVC/AC RR 18, Tv 500, IT :1.0 PEEP:10, FIO2 75% 08/18 Remains sedated and intubated. Afebrile. CXR this morning unchanged bibasilar infiltrates and effusions. 08/19 Patient was placed on rotoprone bed last night for proning sedated with Diprivan, Versed and Fentnayl in addition she is on Nimbex. On PRVC/AC RR 20, TV 400, IT:1.1, PEEP:14 and FIO2 80%. Afebrile. 08/20 Patient remains sedated and intubated. Remains on PRVC/AC mode with improvements in her oxygenation on FIO2 50% from 80% yesterday and PEEP:12. 08/21 Patient remains sedated and intubated. On PRVC/AC mode with RR 20, TV 400, IT:1.1, PEEP: 12 and FIO2 50%. Afebrile. 08/22 No acute events overnight. Remains sedated, intubated and on Nimbex.. T: 99.8. On PRVC mode with PEP: 12, FIO2 50%. CXR from yesterday showed better aeration, RLL infiltrate unchanged. 08/23 Chest x-ray worsening. Methylprednisolone taper to twice a day by pulmonary. The patient's FiO2 was found to be 100% this a.m., will continue to wean. 08/24: 1 desat episode yesterday when supine. still remains prone now. no vasopressors. sedated and paralyzed. 08/25: flolan added yesterday. fio2 down to 60%. remained supine all night. still on neuromuscular blockade. net -500cc/24h. 08/26: good diuresis. remained supine. fio2 70%. weaning flolan. remains with significant respiratory support and high peep despite 6L diuresis overnight. Cr still stable. 08/27: continues with good diuresis. net negative 3L/24h. fio2 down to 55%. flolan off. still high peep. not ready for SBT. more agitated today. Cr remains stable despite aggressive diuresis. 08/28: diuresis continues. -3.3L/24h. spiked fever overnight with a jump in wbc to 16 this AM. fio2 60%, but her pulmonary improvements have plateaued at this point. still on peep 12. 08/29: net -1.7L/24h. Cr starting to rise. still spiking fevers despite vanc/ cefepime added yesterday. wbc continues to rise. clinically appears infected, although unclear source. peep 10, fio2 60%. will likely need trach. 08/30: net +800cc, but Cr downtrending. appears clinically euvolemic. fever curve downtrending. wbc downtrending. on 40% fio2, peep 8 today. still following commands. 08/31: failed SBT after only 45 minutes yesterday. intubated for > 2 weeks at this point. will attempt to pursue trach/peg today. will continue with pulmonary strengthening. daily SBTs. 09/01 CXR showing increasing bibasilar infiltrate. Failed C Pap trial in 5 minutes due to severe tachypnea. PEG tube today. Family has not decided on trach yet 09/02: Patient febrile to 101.1, CXR increased infiltrate Tmax Tmax 101.1. Currently 9.7 left upper lung and right lower lobe. Pancultured. Cefepime added today and one dose of vancomycin. Continues to fail C Pap trial due to tachypnea and respiratory distress 09/03: Remains hypoxemic on 75% oxygen with new pneumonia. Sputum culture 09/02/16 with GNR. Family agreeable for tracheostomy but patient is not stable at this point for trach 09/04: still on 70% fio2. still hypoxic. pneumonia persists. needs trach, but too unstable at this point. 09/05: remains on 75% fio2. pseudomonas sensitivities came back resistant to carbapenems, intermediate to levaquin. still spiking fevers. not clinically improving. wbc remains elevated. 09/06: Remains on 12 of PEEP and FiO2 75%. Zosyn and tobramycin started yesterday. WBC count trending down today 11.5 from 13.1. Remains heavily sedated for ventilator synchrony. MAXIMUM TEMPERATURE 100.3 09/07: Continues to spike fever. CXR unchanged. WBC count improving. PEEP 14. FiO2 60%. Will start IV Bumex 1mg IV q12 09/09: Tolerating tube feeds at goal. Afebrile. No documented bowel movement. Currently sedated on the ventilator 09/10: Tmax 99.7. Currently 99.4. No bowel movement yesterday. None document since 09/04. Arousable on the ventilator 09/11: Tmax 102.6. Currently 100. Positive BM. Arousable on the ventilator. Tolerating tube feeds. Central line changed yesterday. Plan for bronchoscopy at 1 PM. 09/12: Tmax 100.1. Currently afebrile. Follows commands today. Wiggles toes and give thumbs up appropriately. MRI brain canceled. Tolerating tube feeding with positive BM. Tracheostomy currently planned for . 09/13: Tmax 102. Again on sedation [place] commands by wiggling toes bilaterally and giving thumbs up bilaterally appropriate. Tolerating tube feeding with positive BM. Tracheostomy planned for tomorrow with Dr. Ortega. 09/14: Low grade fever. CXR showing more prominent infiltrate on the right lower lobe and left upper lobe. WBC trending up still in normal range. Patient is on 40% FiO2 but continues to fail CPAP due to tachypnea 09/15: Remains intubated sedated, unable to wean off the vent. Plan for tracheostomy today with Dr. Ortega. Continues to have low grade fever. CXR with persistent bibasilar infiltrates 09/16: Tmax 101.1. Currently 100.7. Awake and alert. Following commands. 09/17: Afebrile. Currently on PSV trial. Tolerating tube feeds. One bowel movement. Noted decreased urine output past 48 hours. Diuretics have been discontinued. This a.m. creatinine currently pending. 09/18: Afebrile. Adequate urine output yesterday but decreased 150 past 8 hours. Tolerating tube feeds. One bowel movement. Not tolerating PSV trials today. 09/19: Tmax 100.5. Urine output picking up. Tolerating tube feeds. No bowel movement 48 hours. Not tolerating PSV trials. 09/20: Diffuse drug morbilliform exanthem noted this a.m. Tmax 100.6. Urine output around 20 cc an hour. Not tolerating PSV trials. Possibly new right pleural effusion noted on chest x-ray. Will need hemodialysis 09/21: Tmax 100.6 currently 98.7. -4 L with hemodialysis yesterday and today. FiO2 to 60%. Tolerating tube feeds. Positive BM. Still requiring sedation 09/22: Afebrile. Tolerating tube feeds. Positive BM. 30 g per kilogram per minute of propofol. Tolerated PSV trials 3 hours today 09/23 HD today with 3.5 L removal. Tolerating CPAP for 8 hours, currently 45% with RSBI 45%. 09/24 Called by RN this morning for concern for bloody BMs. Placed heparin and warfarin on hold. Serial Hgb ordered. Hgb 9.3 -->8.6 and hemodynamically unchanged. Started on protonix drip. Heme stool is negative and now RN states she is concerned about the adequacy of specimen, so sending repeat. Had asked GI to see, however further workup will not be indicated if hemoccult is negative. Tolerating PSV 05/06 09/25: heparin restarted. hemocult negative x 2. 09/26: no changes. still failing cpap trials. 09/27: Tmax 101.5. Currently 99.5. Resting on Diprivan drip at 25 mcg/kg/m. Currently tolerating tube feeding.. One bowel movement. 09/28: Hemoglobin trending downward. Transfusing 1 unit PRBCs with hemodialysis today. Currently afebrile. Appears comfortable ventilator 2 bowel movements 09/29 No events overnight. Sedated with Diprivan and on ventilator via trach. T: 99.9 For Perma Cath placement today. s/p HD yesterday with removal 4L and transfusion 1unit PRBC with HD. 09/30: Tmax 100.8. No events overnight. No bowel movement. Tolerating tube feeds. 10/01: Tmax 101.3. Currently resting in bed in no acute distress. Tolerating tube feeds. Chest x-ray revealed atelectasis. -5 L with hemodialysis yesterday. 10/02 Patient remains on ventilator via trach on PRVC/AC with PEEP: 10 and FIO2 50 %. T: 102.1 at 4 am. 10/03 Patient is off sedation on ventilator via trach. Tmax 101.2 last night. For HD today. 10/04: Tmax 101.5. Currently afebrile. Tolerating PSV trial. Hemodialysis - 4.5 L yesterday. Positive BM. New rash. Received chlorhexidine today. 10/05: Tmax 100. Currently 98.9. Positive BM. Tolerating tube feeds. Less erythematous today. Currently on dialysis 10/06: Tmax 99.9. Currently 99.7. Currently on PSV trial 09/12 @ 45%. Tolerating tube feed. Positive bowel movement 10/07: Tmax 99.8. currently psv 10/8/40%. has not been out of bed in weeks due to critical illness. needs to be mobilized. still no placement plan. 10/08: Tmax 100.4. on t-piece currently. tolerated psv yesterday. have ordered specialty chair and currently awaiting it to arrive. 10/09 Patient remains on ventilator via trach, T:99.9 on no sedation. 10/10 No acute events overnight. For HD today on heparin drip. T:99.8, tolerating tube feeds. 10/11 No events overnight. s/p HD yesterday with removal 3.5L. Tmax 100.5. Tolerating CPAP on PS 10, PEEP: 5 and FIO2 40%. 10/12: Patient receiving hemodialysis today. Tolerating CPAP. Very weakly following commands in all 4 extremities 10/13: 6 hours of T piece yesterday. Currently on TPs and following commands slightly better today. 10/14: No acute events reported overnight. Remains on CPAP on the vent. Getting hemodialysis now 10/15: Tachypneic today 35-38 breath per min, maintaining O2 sat. No fever. CXR unchanged. PS increased to 18. Will check ABG 10/16: Awake and alert, remains on mechanical ventilation via tracheostomy. Daily C Pap trials as tolerated. 10/17: Awake and alert. On mechanical ventilation via tracheostomy. Daily C Pap trials ongoing. 10/18: Tmax 101.8 currently 98.6. Awake and alert on the ventilator. Tolerating tube feeding. Positive BM 2. Patient was pancultured blood sputum and urine overnight 10/17 10/19: Afebrile overnight. Currently sitting in bariatric chair. Some brownish secretions from tracheostomy site. On T piece 10/20: Resting in bed in no acute distress. Tolerating T piece. Positive BM. Interactive 10/21: Afebrile. Tolerating T piece. Resting in bed in no acute distress. Interactive. Positive BM. Tolerate feeds. No bleeding from removed tunneled cuffed hemodialysis catheter 10/22: Afebrile. Tolerating T piece. Resting in bed in no acute distress. Tolerating tube feeds. Subjective 10/23: Sitting up in chair. On T piece at the time of my evaluation. Awake and alert, following commands. Objective Vital Signs Date Time Temp Pulse Resp B/P Pulse Ox O2 Delivery O2 Flow Rate FiO2 10/23/16 12:00 97 10/23/16 12:00 172/104 99 10/23/16 08:40 40 10/23/16 08:40 T-piece 8.00 10/23/16 04:00 98.5 18 Intake and Output 10/22/16 10/22/16 10/23/16 08:00 16:00 00:00 Intake Total 506 ml 466 ml 562 ml Output Total 600 ml 800 ml 740.0 ml Balance -94 ml -334 ml -178.0 ml Result Diagram: 10/23/16 0528 10/23/16 0528 Other Results Microbiology Date/Time Procedure Status Source Growth 10/21/16 17:40 Urine Culture - Final Complete Urine Catheterized Urine Klebsiella Pneumoniae Esbl Pos Imaging Last Impressions Central Venous Line 10/20/16 0000 Signed Impressions: Service Date/Time: Thursday, October 20, 2016 00:00 - CONCLUSION: Uncomplicated Permcath removal. Didier Zhang MD Chest X-Ray 10/18/16 0600 Signed Impressions: Service Date/Time: Tuesday, October 18, 2016 04:09 - CONCLUSION: Right lung base infiltrate has improved and there is questionable infiltrate left upper lobe with mild prominence of interstitial markings. Danyel Escalante MD Catheter Placement X-Ray 09/29/16 1223 Signed Impressions: Service Date/Time: Thursday, September 29, 2016 12:31 - CONCLUSION: Vas-Cath to PermCath exchange as detailed above. Taco Haas Jr., MD Renal Ultrasound 09/17/16 0000 Signed Impressions: Service Date/Time: Saturday, September 17, 2016 13:31 - CONCLUSION: Negative renal sonogram. Taco Davidson MD Upper Extremity Ultrasound 09/14/16 0000 Signed Impressions: Service Date/Time: August 08:32 - CONCLUSION: There is thrombus within the left subclavian and internal jugular veins. Danyel Escalante MD Lower Extremity Ultrasound 09/13/16 0000 Signed Impressions: Service Date/Time: Tuesday, September 13, 2016 22:33 - CONCLUSION: Normal examination. Leonides Mason MD Liver Ultrasound 09/08/16 0000 Signed Impressions: Service Date/Time: Thursday, September 08, 2016 08:45 - CONCLUSION: 1. Cholelithiasis with distended gallbladder. However, there are no associated findings present to diagnose acute cholecystitis. If there is persistent clinical concern for acute cholecystitis could evaluate for cystic duct obstruction with hepatobiliary scintigraphy. 2. Hepatomegaly with very heterogeneous echotexture and steatosis. Dejan Allison MD Gall Bladder Ultrasound 08/29/16 0000 Signed Impressions: Service Date/Time: Monday, August 29, 2016 15:21 - CONCLUSION: 1. Hepatomegaly with heterogeneous echotexture throughout the liver. 2. There is a large echogenic area near the neck of the gallbladder suggestive of a stone, but despite its large size, demonstrates no acoustic shadowing in any of the views. Taco Davidson MD CT Angiography 08/15/16 0000 Signed Impressions: Service Date/Time: Monday, August 15, 2016 02:33 - CONCLUSION: 1. No evidence for pulmonary embolism. 2. Multifocal consolidation greatest in the right lower lobe and associated adenopathy. Terry Estrada MD Objective Remarks GENERAL: 56 yo female currently on T piece in no acute distress SKIN: Warm and dry. Skin is flaky. Noted stage I to 2 decubitus ulcer\coccyx and back covered with Mepilex HEAD: Normocephalic. Atraumatic EYES: No scleral icterus. No injection or drainage. NECK: Neck is obese. Right subclavian hemodialysis catheters clean dry and intact. Tracheostomy site is clean dry and intact CARDIOVASCULAR: RRR. S1, S2. No S4. Without murmur RESPIRATORY: Diminished breath sounds throughout due to body habitus. GASTROINTESTINAL: Abdomen obese, soft, non-tender, hypoactive active bowel sounds. G-tube is clean dry and intact MUSCULOSKELETAL: 1+ edema BUE. Neuro: Awake, makes eye contact and nods to questions. Following commands moving upper and lower extremity spontaneously, though still very weak. A/P Problem List: (1) ARDS (adult respiratory distress syndrome) ICD Code: J80 Status: Acute (2) CHF (congestive heart failure) ICD Code: I50.9 Status: Acute (3) Respiratory failure ICD Code: J96.90 Status: Acute (4) Pneumonia ICD Code: J18.9 Status: Acute Assessment and Plan Neuro/Psych: Acute toxic metabolic encephalopathy Critical care myopathy Agitated delirium- improving. Minimize sedation Monitor neuro status. Fentanyl allergy On Seroquel 75 mg every 8 hours for agitation Melatonin 5mg po qHS for insomnia Acetaminophen for fever/pain Pulm: Acute on chronic hypercapnic and hypoxemic respiratory failure ARDS- resolved. Pneumonia community-acquired, now with HCAP with carbapenem-resistant pseudomonas and ESBL Klebsiella VAP. Probable JOE Continue daily T piece trials via tracheostomy Chest x-ray 10/15 revealed left upper lobe infiltrative right lower lobe infiltrate Repeat chest x-ray 10/23 AM for resolution Continue with vent support as needed keep sat >92% ICU vent bundle Bronchodilator therapy every 6 hours and albuterol every 2 hours as needed Pulm has followed- Dr. Beck Gen surgery Dr. Ortega s/p s tracheostomy 09/15 Pulm toilet, trach care CV: Hypertension Dyslipidemia Elevated troponin - likely strain On Lopressor 50mg Q8 monitor HR and BP keep MAP>65mmHg As needed labetalol, hydralazine and Nitropaste for hypertension Echo 08/14 showed EF 65-70% mild AR/TR On Pravachol 20 mg a night for dyslipidemia Renal/: Acute kidney injury - requiring hemodialysis Dr. Tan -nephrology following. Hemodialysis Sunday//Sunday currently on hold. Tunneled cuff catheter discontinued 10/20 [place] currently trending downward currently 1.7 MIKE: ATN from sepsis syndrome and diminished renal perfusion; also aminoglycoside induced nephrotoxicity likely also contributing; possibly AIN -> per nephrology note Urine eosinophils negative. Renal ultrasound revealed no hydronephrosis Monitor renal function, I/O's, avoid nephrotoxins. Miller placed for accurate I's and O's GI: Elevated transaminases Cholelithiasis On TF Nepro's 45 cc an hour and Beneprotein 2 packs 3 times a day s/p PEG placement 09/01/[address] Ritter Pepcid 10mg BID GI prophylaxis Having BM US liver: Steatosis and cholelithiasis. Repeat 09/08 revealed cholelithiasis with no acute signs of cholecystitis. ID: Pseudomonas pneumonia Funguria, Maribell glabrata and parapsilosis. Currently off all antibiotics ID following. Pertinent cultures blood and sputum cx 08/15- NG strep pneumonia and Legionella urinary Ag negative Blood cultures 08/28: NGTD C Diff negative 08/28. Lines changed 08/28. Sputum 08/30 - Pseudomonas Sputum 09/02 PSAE, resistant to carbapenem, intermediate to Levaquin. 09/07 - urine -Maribell Guilliermondii 09/07 - blood cultures 2 - no growth 09/09 - urine -strep viridans, Maribell parapsilosis 09/10 - blood cultures 2 -no growth 09/11 - broch washings -no growth to date 09/12 - urine -Maribell glabrata and parapsilosis 09/16 - blood cultures 2 - pending 09/16 - sputum -no growth 09/16 - urine -Maribell glabrata and parapsilosis 10/02 - blood cultures 2 - staph epi 10/02 - urine - ESBL positive Klebsiella 10/04 - blood cultures 2 -no growth 10/05 - blood cultures 2 -no growth 10/17 - blood cultures -no growth 10/17 - sputum -Klebsiella ESBL positive and Stenotrophomonas maltophilia 10/17 - urine -C glabrata 10/20 - urine - gram-negative aliyah Zosyn previously discontinued secondary to rash Followed by Dr. Uribe. Out of town. Patient asymptomatic. Dr. 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 10/14, pharmacy dosing currently at 12 mg daily. IV Heparin started due to subtherapeutic last PTT PTT on heparin drip currently therapeutic Endo: Diabetes mellitus Hypothyroidism on SSI (medium scale) for glycemic control On Synthroid 200mcg daily. TSH 1.37 GI prophylaxis-Protonix 40mg Q12 DVT - IV heparin until therapeutic on Coumadin Lines: Peripheral IV. - PEG 09/01/16 - Trach 09/15 - Right Permacath placed 09/29 Loree Marinelli, daughter (HCP): [phone] Rony Marinelli, significant other: [phone] Level II Problem Qualifiers (1) CHF (congestive heart failure): Qualified Code: I50.9 - Acute congestive heart failure, unspecified congestive heart failure type (2) Respiratory failure: Qualified Code: J96.02 - Acute respiratory failure with hypercapnia (3) Pneumonia: Qualified Code: J18.9 - Pneumonia of both lungs due to infectious organism, unspecified part of lung Pal Uribe MD October 23, 2016 14:02
[2016-10-23] MEDS ORDERED: WARFARIN SOD 6 MG TAB PO SCH (16:00)
[2016-10-23 16:34] LABS: APTT (PATIENT) 47.1 SEC (24.3-30.1)
[2016-10-23 16:58] LABS: BICARBONATE 31.1 MEQ/L (21.0-32.0); POTASSIUM 3.6 MEQ/L (3.5-5.1)
[2016-10-23] MEDS: MELATONIN 5 MG TAB PO SCH (20:10)
[2016-10-23] MEDS: PRAVASTATIN SOD 20 MG TAB PO SCH (20:10)
[2016-10-23] MEDS: POTASSIUM CHLORIDE 20 MEQ CONTROLLED RELEASE TAB PO SCH (21:00)
[2016-10-24] VITALS (23 sets, daily range): BP systolic 121–149; BP diastolic 59–85; PULSE 81–92; RESP 22–24; TEMP 98.4–98.6; O2SAT 94–100
[2016-10-24] MEDS: RESP: ALBUTEROL 2.5 MG/IPRATROPIUM 0.5 MG NEB (SCH) NEB ×4 (03:28→20:47)
[2016-10-24] MEDS: CHLORHEXIDINE GLUCONATE 2 % 1 PACK (2 CLOTHS) TOP SCH (04:00)
[2016-10-24] MEDS: METOPROLOL TARTRATE 25 MG TAB G-TUBE SCH ×3 (05:11→20:39)
[2016-10-24] MEDS: QUEtiapine FUMARATE 25 MG TAB PO SCH ×3 (05:12→20:39)
[2016-10-24] MEDS: LEVOTHYROXINE SODIUM 200 MCG TAB PO SCH (05:12)
[2016-10-24 05:54] LABS: HEMATOCRIT 24.3 % (35.0-46.0); MEAN CELL VOLUME 85.3 FL (80.0-100.0); MEAN CORPUSCULAR HEMOGLOBIN 27.9 PG (27.0-34.0); MEAN CORPUSCULAR HGB CONC 32.7 % (32.0-36.0); PLATELET COUNT 310 TH/MM3 (150-450); RED BLOOD COUNT 2.85 MIL/MM3 (4.00-5.30); RED CELL DISTRIBUTION WIDTH 18.4 % (11.6-17.2); REVIEW FLAG FINAL; WHITE BLOOD COUNT 12.2 TH/MM3 (4.0-11.0)
[2016-10-24 05:57] LABS: APTT (PATIENT) 57.6 SEC (24.3-30.1); INTERNATIONAL NORMALIZED RATIO 1.1 RATIO; PROTHROMBIN TIME - PATIENT 12.7 SEC (9.8-11.6)
[2016-10-24] MEDS: POTASSIUM CHLORIDE 20 MEQ CONTROLLED RELEASE TAB PO SCH (08:25)
[2016-10-24] MEDS: SODIUM CHLORIDE 0.9% FLUSH 10 ML FLUSH IVF SCH (08:25)
[2016-10-24] MEDS: DOCUSATE SODIUM 100 MG/10 ML UDC PO SCH ×2 (08:25→20:38)
[2016-10-24] MEDS: ARTIFICIAL TEARS OPTH SOLN 15 ML BTL EACH EYE SCH ×3 (08:26→18:15)
[2016-10-24] MEDS: SODIUM CHLORIDE 0.9% FLUSH 10 ML FLUSH IVF PRN (08:26)
[2016-10-24] MEDS: SODIUM CHLORIDE 0.9% FLUSH 10 ML FLUSH IV FLUSH SCH ×2 (08:26→20:40)
[2016-10-24] MEDS: FAMOTIDINE 40 MG/5 ML LIQ 50 ML BTL NG SCH ×2 (08:27→20:41)
[2016-10-24] MEDS: EUCERIN CREAM 120 GM JAR TOPICAL SCH ×2 (08:27→20:41)
[2016-10-24 08:34] LABS: BICARBONATE 31.4 MEQ/L (21.0-32.0); POTASSIUM 3.4 MEQ/L (3.5-5.1)
[2016-10-24] MEDS: BENEPROTEIN POWDER 1 PACK G-TUBE SCH ×3 (09:00→17:59)
--- NOTE | 2016-10-24 09:53 | HHI.NPPN ---
Subjective Complaints: Obesity, Shortness of Breath General Problems: Edema, Hypotension, Obesity Renal Failure: Acute Interval History She is more alert. Excellent urine output. Creatinine improved. (Genny Lowery) Review of Systems General General Remarks no pain (Genny Lowery) Respiratory Lungs: SOB, Cough (Genny Lowery) Neuro Neuro Remarks generalized muscle fasciculation (Genny Lowery) Objective Data Data 10/23/16 10/24/16 19:00 07:00 Intake Total 631 ml 2062 ml Output Total 550 ml 900 ml Balance 81 ml 1162 ml IV Total 338 ml 210 ml Tube Feeding 293 ml 1352 ml Other 500 ml Output Urine Total 550 ml 900 ml Vital Signs Date Time Temp Pulse Resp B/P Pulse Ox O2 Delivery O2 Flow Rate FiO2 10/24/16 09:38 100 35 10/24/16 06:00 84 10/24/16 04:00 90 10/24/16 04:00 98.6 90 22 139/85 97 10/24/16 03:38 100 40 10/24/16 02:00 92 10/24/16 00:09 100 40 10/24/16 00:00 98.4 92 22 130/77 100 10/24/16 00:00 89 10/23/16 22:00 90 10/23/16 20:47 100 40 10/23/16 20:00 98.6 98 20 135/80 100 10/23/16 20:00 98 10/23/16 19:00 97 Mechanical Ventilator 40 10/23/16 18:00 95 10/23/16 16:00 98.6 99 138/77 98 10/23/16 16:00 99 10/23/16 15:43 101 138/72 98 10/23/16 15:00 101 176/118 97 10/23/16 14:00 105 10/23/16 14:00 105 167/105 94 10/23/16 13:00 103 177/105 98 10/23/16 12:00 97 10/23/16 12:00 97 172/104 99 10/23/16 10:00 95 (Genny Lowery) -: 10/24/16 0514 10/24/16 0742 Imaging Last 72 hours Impressions Chest X-Ray 10/23/16 0600 Signed Impressions: Service Date/Time: Sunday, October 23, 2016 05:27 - CONCLUSION: Interval dialysis catheter removal. Slight interval worsening in aeration at the right lung base Dejan Cervantes MD Tubes & Lines: Miller Tubes & Lines Comment trach, PEG Drip Comment heparin, (Genny Lowery) Physical Exam General Appearance: No Acute Distress, Comfortable, Obese Appearance Remarks awake, nods head and mouths words (Genny Lowery. CALL CENTER OPERATOR) Eyes Eye Exam: Pupils Equal, Pupils Reactive (Genny Lowery BRamos CALL CENTER OPERATOR) Throat Throat Exam: Oral Mucosa [place] & Moist Throat Remarks trach (Genny Lowery B. CALL CENTER OPERATOR) Neck Neck Exam: Neck Supple Neck Remarks trach (Genny Lowery B. CALL CENTER OPERATOR) Pulmonary Resp Exam: Clear Bilaterally Resp Remarks course throughout thick secretions (Genny Lowery BRamos CALL CENTER OPERATOR) Cardiology CV Exam: Regular, Normal Sinus Rhythm, Good Perfusion (Genny Lowery CALL CENTER OPERATOR) Gastrointestinal/Abdomen GI Exam: Soft, Bowel Sounds Present GI Remarks morbidly obese, + PEG (Genny Lowery B. CALL CENTER OPERATOR) Musculoskeletal MS Exam: Joints Intact, Normal Tone (Genny Lowery. CALL CENTER OPERATOR) Integumentary Skin Exam: Warm, Dry, Intact (Genny Lowery B. CALL CENTER OPERATOR) Extremeties Extremities Exam: No Edema, Pedal Pulses Palpable Extremeties Remarks all four extremities (Genny Lowery. CALL CENTER OPERATOR) Neurologic Neuro Exam: Alert, Awake, Oriented, Moving All Extremities Neuro Remarks awake, nods head yes/no to questions (Genny Lowery) Assessment/Plan Discussed Condition With: Patient Assessment Summary: MIKE/Acute Renal Failure, Acute Tubular Necrosis, Fluid/ Volume Overload Electrolyte Assessment: Hypercalcemia, Hyponatremia Problem List: (1) Acute kidney injury Plan: ARF due to ATN HD initiated 09/20; she was dialysis dependent, last treatment 10/14 she is in recovery phase, creatinine improving daily continue to replace potassium, change to KCL powder via PEG BID, follow BMP monitor urine output avoid nephrotoxic substances continue free water with tube feeding (2) ARDS (adult respiratory distress syndrome) Plan: s/p trach placement On CPAP intermittently with T piece Childcare Provider and respiratory 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 (3) Anemia Plan: Hb low but stable on heparin and protonix GI has evaluated (4) Pneumonia Plan: afebrile, she is not on antibiotics currently ID has signed off, monitor clinically (5) Hypothyroidism Plan: on synthroid (6) DVT (deep venous thrombosis) Plan: bridge to Coumadin with Heparin , follow INR not therapeutic at this time (7) Morbid obesity (8) Hypercalcemia Plan: Improved, likely is due to chronic immobilization. (Genny Lowery) Plan patient was seen and examined. Agree with above assessment and plan. (Anshu Tan MD) Problem Qualifiers (1) Pneumonia: Qualified Code: J18.9 - Pneumonia of both lungs due to infectious organism, unspecified part of lung Genny Lowery October 24, 2016 09:53 Anshu Tan MD October 24, 2016 13:10
--- NOTE | 2016-10-24 12:58 | HHI.PR ---
Subjective Remarks On T Bar at 40 %. Tolerated it well. Feels better . Wants water. Objective Vital Signs Date Time Temp Pulse Resp B/P Pulse Ox O2 Delivery O2 Flow Rate FiO2 10/24/16 10:17 96 T-piece 40 10/24/16 09:38 100 35 10/24/16 06:00 84 10/24/16 04:00 90 10/24/16 04:00 98.6 90 22 139/85 97 10/24/16 03:38 100 40 10/24/16 02:00 92 10/24/16 00:09 100 40 10/24/16 00:00 98.4 92 22 130/77 100 10/24/16 00:00 89 10/23/16 22:00 90 10/23/16 20:47 100 40 10/23/16 20:00 98.6 98 20 135/80 100 10/23/16 20:00 98 10/23/16 19:00 97 Mechanical Ventilator 40 10/23/16 18:00 95 10/23/16 16:00 98.6 99 138/77 98 10/23/16 16:00 99 10/23/16 15:43 101 138/72 98 10/23/16 15:00 101 176/118 97 10/23/16 14:00 105 10/23/16 14:00 105 167/105 94 10/23/16 13:00 103 177/105 98 I/O 10/23/16 10/23/16 10/23/16 10/24/16 10/24/16 10/24/16 07:00 15:00 23:00 07:00 15:00 23:00 Intake Total 473 ml 631 ml 817 ml 1245 ml Output Total 525 ml 550 ml 600 ml 300 ml Balance -52 ml 81 ml 217 ml 945 ml Intake Oral 0 ml IV Total 130 ml 338 ml 132 ml 78 ml Tube Feeding 283 ml 293 ml 385 ml 967 ml Other 60 ml 300 ml 200 ml Output Urine Total 525 ml 550 ml 600 ml 300 ml Tube Feeding Residual Discard 0 ml # Bowel Movements 1 Result Diagram: 10/24/16 0514 10/24/16 0742 Objective Remarks This is an obese middle-aged white female who is responsive. HEENT: Head normocephalic.throat clear. Neck: No bruits, no thyroid enlargement, no lymphadenopathy.No JVD Chest: Decreased breath sounds. Few Wheezes heard. Heart: Heart sounds were regular. S1-S2 no murmur, no S3. Abdomen: Soft, benign. No masses, or tenderness. Bowel sounds are active. Extremities:min edema . Neuro :Moves all limbs. Awake . Assessment and Plan Assessment and Plan IMPRESSION 1. Acute hypercapnic respiratory failure.Resolving 2. Pulmonary edema. 3. Drug rash 4. Obstructive sleep apnea syndrome 5. Hypertension 6. Hypothyroidism. 7. MIKE Plan : 1. Cont on T Bar 40 % daytime upto 16 hrs 2. Trach toilet and suctioning. 3. Nebs qid , duoneb. 4. Place on CPAP/PSV 5/12, 35 % at HS 5. Labs in am 6. PT and OT 7. Tube feeds at 50 CC 8. Pureed PO diet . 9. Rehab soon. Abimael Beck MD October 24, 2016 12:58
[2016-10-24] MEDS: HEPARIN-D5W 25,000 U/250 ML 250 ML IV SCH (13:20)
--- NOTE | 2016-10-24 13:39 | HHI.CCPN ---
Subjective Remarks/Hospital Course 56-year-old morbidly obese female brought in the emergency department in respiratory distress. She was intubated by ER attending. She has been sick for about a week with symptoms consistent with UTI. She's had fevers and chills. She's been short of breath. She's had fatigue. She has had a cough and chest pain with coughing. The family reports that she's been delirious for the last 3 days. 08/15 Patient is sedated with Diprivan, Versed, Fentanyl and intubated. CTA chest showed no PE multifocal consolidation greatest in RLL. Tmax 100.6 08/16 Patient is sedated with Diprivan and Fentanyl. Afebrile. CXR this morning showed increase consolidation. 08/17 Patient remains sedated and intubated. T:100.4 On PRVC/AC RR 18, Tv 500, IT :1.0 PEEP:10, FIO2 75% 08/18 Remains sedated and intubated. Afebrile. CXR this morning unchanged bibasilar infiltrates and effusions. 08/19 Patient was placed on rotoprone bed last night for proning sedated with Diprivan, Versed and Fentnayl in addition she is on Nimbex. On PRVC/AC RR 20, TV 400, IT:1.1, PEEP:14 and FIO2 80%. Afebrile. 08/20 Patient remains sedated and intubated. Remains on PRVC/AC mode with improvements in her oxygenation on FIO2 50% from 80% yesterday and PEEP:12. 08/21 Patient remains sedated and intubated. On PRVC/AC mode with RR 20, TV 400, IT:1.1, PEEP: 12 and FIO2 50%. Afebrile. 08/22 No acute events overnight. Remains sedated, intubated and on Nimbex.. T: 99.8. On PRVC mode with PEP: 12, FIO2 50%. CXR from yesterday showed better aeration, RLL infiltrate unchanged. 08/23 Chest x-ray worsening. Methylprednisolone taper to twice a day by pulmonary. The patient's FiO2 was found to be 100% this a.m., will continue to wean. 08/24: 1 desat episode yesterday when supine. still remains prone now. no vasopressors. sedated and paralyzed. 08/25: flolan added yesterday. fio2 down to 60%. remained supine all night. still on neuromuscular blockade. net -500cc/24h. 08/26: good diuresis. remained supine. fio2 70%. weaning flolan. remains with significant respiratory support and high peep despite 6L diuresis overnight. Cr still stable. 08/27: continues with good diuresis. net negative 3L/24h. fio2 down to 55%. flolan off. still high peep. not ready for SBT. more agitated today. Cr remains stable despite aggressive diuresis. 08/28: diuresis continues. -3.3L/24h. spiked fever overnight with a jump in wbc to 16 this AM. fio2 60%, but her pulmonary improvements have plateaued at this point. still on peep 12. 08/29: net -1.7L/24h. Cr starting to rise. still spiking fevers despite vanc/ cefepime added yesterday. wbc continues to rise. clinically appears infected, although unclear source. peep 10, fio2 60%. will likely need trach. 08/30: net +800cc, but Cr downtrending. appears clinically euvolemic. fever curve downtrending. wbc downtrending. on 40% fio2, peep 8 today. still following commands. 08/31: failed SBT after only 45 minutes yesterday. intubated for > 2 weeks at this point. will attempt to pursue trach/peg today. will continue with pulmonary strengthening. daily SBTs. 09/01 CXR showing increasing bibasilar infiltrate. Failed C Pap trial in 5 minutes due to severe tachypnea. PEG tube today. Family has not decided on trach yet 09/02: Patient febrile to 101.1, CXR increased infiltrate Tmax Tmax 101.1. Currently 9.7 left upper lung and right lower lobe. Pancultured. Cefepime added today and one dose of vancomycin. Continues to fail C Pap trial due to tachypnea and respiratory distress 09/03: Remains hypoxemic on 75% oxygen with new pneumonia. Sputum culture 09/02/16 with GNR. Family agreeable for tracheostomy but patient is not stable at this point for trach 09/04: still on 70% fio2. still hypoxic. pneumonia persists. needs trach, but too unstable at this point. 09/05: remains on 75% fio2. pseudomonas sensitivities came back resistant to carbapenems, intermediate to levaquin. still spiking fevers. not clinically improving. wbc remains elevated. 09/06: Remains on 12 of PEEP and FiO2 75%. Zosyn and tobramycin started yesterday. WBC count trending down today 11.5 from 13.1. Remains heavily sedated for ventilator synchrony. MAXIMUM TEMPERATURE 100.3 09/07: Continues to spike fever. CXR unchanged. WBC count improving. PEEP 14. FiO2 60%. Will start IV Bumex 1mg IV q12 09/09: Tolerating tube feeds at goal. Afebrile. No documented bowel movement. Currently sedated on the ventilator 09/10: Tmax 99.7. Currently 99.4. No bowel movement yesterday. None document since 09/04. Arousable on the ventilator 09/11: Tmax 102.6. Currently 100. Positive BM. Arousable on the ventilator. Tolerating tube feeds. Central line changed yesterday. Plan for bronchoscopy at 1 PM. 09/12: Tmax 100.1. Currently afebrile. Follows commands today. Wiggles toes and give thumbs up appropriately. MRI brain canceled. Tolerating tube feeding with positive BM. Tracheostomy currently planned for . 09/13: Tmax 102. Again on sedation [place] commands by wiggling toes bilaterally and giving thumbs up bilaterally appropriate. Tolerating tube feeding with positive BM. Tracheostomy planned for tomorrow with Dr. Ortega. 09/14: Low grade fever. CXR showing more prominent infiltrate on the right lower lobe and left upper lobe. WBC trending up still in normal range. Patient is on 40% FiO2 but continues to fail CPAP due to tachypnea 09/15: Remains intubated sedated, unable to wean off the vent. Plan for tracheostomy today with Dr. Ortega. Continues to have low grade fever. CXR with persistent bibasilar infiltrates 09/16: Tmax 101.1. Currently 100.7. Awake and alert. Following commands. 09/17: Afebrile. Currently on PSV trial. Tolerating tube feeds. One bowel movement. Noted decreased urine output past 48 hours. Diuretics have been discontinued. This a.m. creatinine currently pending. 09/18: Afebrile. Adequate urine output yesterday but decreased 150 past 8 hours. Tolerating tube feeds. One bowel movement. Not tolerating PSV trials today. 09/19: Tmax 100.5. Urine output picking up. Tolerating tube feeds. No bowel movement 48 hours. Not tolerating PSV trials. 09/20: Diffuse drug morbilliform exanthem noted this a.m. Tmax 100.6. Urine output around 20 cc an hour. Not tolerating PSV trials. Possibly new right pleural effusion noted on chest x-ray. Will need hemodialysis 09/21: Tmax 100.6 currently 98.7. -4 L with hemodialysis yesterday and today. FiO2 to 60%. Tolerating tube feeds. Positive BM. Still requiring sedation 09/22: Afebrile. Tolerating tube feeds. Positive BM. 30 g per kilogram per minute of propofol. Tolerated PSV trials 3 hours today 09/23 HD today with 3.5 L removal. Tolerating CPAP for 8 hours, currently 45% with RSBI 45%. 09/24 Called by RN this morning for concern for bloody BMs. Placed heparin and warfarin on hold. Serial Hgb ordered. Hgb 9.3 -->8.6 and hemodynamically unchanged. Started on protonix drip. Heme stool is negative and now RN states she is concerned about the adequacy of specimen, so sending repeat. Had asked GI to see, however further workup will not be indicated if hemoccult is negative. Tolerating PSV 05/06 09/25: heparin restarted. hemocult negative x 2. 09/26: no changes. still failing cpap trials. 09/27: Tmax 101.5. Currently 99.5. Resting on Diprivan drip at 25 mcg/kg/m. Currently tolerating tube feeding.. One bowel movement. 09/28: Hemoglobin trending downward. Transfusing 1 unit PRBCs with hemodialysis today. Currently afebrile. Appears comfortable ventilator 2 bowel movements 09/29 No events overnight. Sedated with Diprivan and on ventilator via trach. T: 99.9 For Perma Cath placement today. s/p HD yesterday with removal 4L and transfusion 1unit PRBC with HD. 09/30: Tmax 100.8. No events overnight. No bowel movement. Tolerating tube feeds. 10/01: Tmax 101.3. Currently resting in bed in no acute distress. Tolerating tube feeds. Chest x-ray revealed atelectasis. -5 L with hemodialysis yesterday. 10/02 Patient remains on ventilator via trach on PRVC/AC with PEEP: 10 and FIO2 50 %. T: 102.1 at 4 am. 10/03 Patient is off sedation on ventilator via trach. Tmax 101.2 last night. For HD today. 10/04: Tmax 101.5. Currently afebrile. Tolerating PSV trial. Hemodialysis - 4.5 L yesterday. Positive BM. New rash. Received chlorhexidine today. 10/05: Tmax 100. Currently 98.9. Positive BM. Tolerating tube feeds. Less erythematous today. Currently on dialysis 10/06: Tmax 99.9. Currently 99.7. Currently on PSV trial 09/12 @ 45%. Tolerating tube feed. Positive bowel movement 10/07: Tmax 99.8. currently psv 10/8/40%. has not been out of bed in weeks due to critical illness. needs to be mobilized. still no placement plan. 10/08: Tmax 100.4. on t-piece currently. tolerated psv yesterday. have ordered specialty chair and currently awaiting it to arrive. 10/09 Patient remains on ventilator via trach, T:99.9 on no sedation. 10/10 No acute events overnight. For HD today on heparin drip. T:99.8, tolerating tube feeds. 10/11 No events overnight. s/p HD yesterday with removal 3.5L. Tmax 100.5. Tolerating CPAP on PS 10, PEEP: 5 and FIO2 40%. 10/12: Patient receiving hemodialysis today. Tolerating CPAP. Very weakly following commands in all 4 extremities 10/13: 6 hours of T piece yesterday. Currently on TPs and following commands slightly better today. 10/14: No acute events reported overnight. Remains on CPAP on the vent. Getting hemodialysis now 10/15: Tachypneic today 35-38 breath per min, maintaining O2 sat. No fever. CXR unchanged. PS increased to 18. Will check ABG 10/16: Awake and alert, remains on mechanical ventilation via tracheostomy. Daily C Pap trials as tolerated. 10/17: Awake and alert. On mechanical ventilation via tracheostomy. Daily C Pap trials ongoing. 10/18: Tmax 101.8 currently 98.6. Awake and alert on the ventilator. Tolerating tube feeding. Positive BM 2. Patient was pancultured blood sputum and urine overnight 10/17 10/19: Afebrile overnight. Currently sitting in bariatric chair. Some brownish secretions from tracheostomy site. On T piece 10/20: Resting in bed in no acute distress. Tolerating T piece. Positive BM. Interactive 10/21: Afebrile. Tolerating T piece. Resting in bed in no acute distress. Interactive. Positive BM. Tolerate feeds. No bleeding from removed tunneled cuffed hemodialysis catheter 10/22: Afebrile. Tolerating T piece. Resting in bed in no acute distress. Tolerating tube feeds. Subjective 10/23: Sitting up in chair. On T piece at the time of my evaluation. Awake and alert, following commands. 10/24: Resting in bed comfortably on mechanical ventilation via tracheostomy. C Pap/T piece trials ongoing Objective Vital Signs Date Time Temp Pulse Resp B/P Pulse Ox O2 Delivery O2 Flow Rate FiO2 10/24/16 10:17 96 T-piece 40 10/24/16 06:00 84 10/24/16 04:00 98.6 22 139/85 10/23/16 08:40 8.00 Intake and Output 10/23/16 10/23/16 10/24/16 08:00 16:00 00:00 Intake Total 473 ml 631 ml 817 ml Output Total 525 ml 550 ml 600 ml Balance -52 ml 81 ml 217 ml Result Diagram: 10/24/16 0514 10/24/16 0742 Other Results Microbiology Date/Time Procedure Status Source Growth 10/21/16 17:40 Urine Culture - Final Complete Urine Catheterized Urine Klebsiella Pneumoniae Esbl Pos 10/22/16 21:20 Urine Culture - Final Complete Urine Clean Catch Klebsiella Pneumoniae Esbl Pos Imaging Last Impressions Central Venous Line 10/20/16 0000 Signed Impressions: Service Date/Time: Thursday, October 20, 2016 00:00 - CONCLUSION: Uncomplicated Permcath removal. Didier Zhang MD Chest X-Ray 10/18/16 0600 Signed Impressions: Service Date/Time: Tuesday, October 18, 2016 04:09 - CONCLUSION: Right lung base infiltrate has improved and there is questionable infiltrate left upper lobe with mild prominence of interstitial markings. Danyel Escalante MD Catheter Placement X-Ray 09/29/16 1223 Signed Impressions: Service Date/Time: Thursday, September 29, 2016 12:31 - CONCLUSION: Vas-Cath to PermCath exchange as detailed above. Taco Haas Jr., MD Renal Ultrasound 09/17/16 0000 Signed Impressions: Service Date/Time: Saturday, September 17, 2016 13:31 - CONCLUSION: Negative renal sonogram. Taco Davidson MD Upper Extremity Ultrasound 09/14/16 0000 Signed Impressions: Service Date/Time: August 08:32 - CONCLUSION: There is thrombus within the left subclavian and internal jugular veins. Danyel Escalante MD Lower Extremity Ultrasound 09/13/16 0000 Signed Impressions: Service Date/Time: Tuesday, September 13, 2016 22:33 - CONCLUSION: Normal examination. Leonides Mason MD Liver Ultrasound 09/08/16 0000 Signed Impressions: Service Date/Time: Thursday, September 08, 2016 08:45 - CONCLUSION: 1. Cholelithiasis with distended gallbladder. However, there are no associated findings present to diagnose acute cholecystitis. If there is persistent clinical concern for acute cholecystitis could evaluate for cystic duct obstruction with hepatobiliary scintigraphy. 2. Hepatomegaly with very heterogeneous echotexture and steatosis. Dejan Allison MD Gall Bladder Ultrasound 08/29/16 0000 Signed Impressions: Service Date/Time: Monday, August 29, 2016 15:21 - CONCLUSION: 1. Hepatomegaly with heterogeneous echotexture throughout the liver. 2. There is a large echogenic area near the neck of the gallbladder suggestive of a stone, but despite its large size, demonstrates no acoustic shadowing in any of the views. Taco Davidson MD CT Angiography 08/15/16 0000 Signed Impressions: Service Date/Time: Monday, August 15, 2016 02:33 - CONCLUSION: 1. No evidence for pulmonary embolism. 2. Multifocal consolidation greatest in the right lower lobe and associated adenopathy. Terry Estrada MD Objective Remarks GENERAL: 56 yo female currently on T piece in no acute distress SKIN: Warm and dry. Skin is flaky. Noted stage I to 2 decubitus ulcer\coccyx and back covered with Mepilex HEAD: Normocephalic. Atraumatic EYES: No scleral icterus. No injection or drainage. NECK: Neck is obese. Right subclavian hemodialysis catheters clean dry and intact. Tracheostomy site is clean dry and intact CARDIOVASCULAR: RRR. S1, S2. No S4. Without murmur RESPIRATORY: Diminished breath sounds throughout due to body habitus. GASTROINTESTINAL: Abdomen obese, soft, non-tender, hypoactive active bowel sounds. G-tube is clean dry and intact MUSCULOSKELETAL: 1+ edema BUE. Neuro: Awake, makes eye contact and nods to questions. Following commands moving upper and lower extremity spontaneously, though still very weak. A/P Problem List: (1) ARDS (adult respiratory distress syndrome) ICD Code: J80 Status: Acute (2) CHF (congestive heart failure) ICD Code: I50.9 Status: Acute (3) Respiratory failure ICD Code: J96.90 Status: Acute (4) Pneumonia ICD Code: J18.9 Status: Acute Assessment and Plan Neuro/Psych: Acute toxic metabolic encephalopathy Critical care myopathy Agitated delirium- improving. Minimize sedation Monitor neuro status. Fentanyl allergy On Seroquel 75 mg every 8 hours for agitation Melatonin 5mg po qHS for insomnia Acetaminophen for fever/pain Pulm: Acute on chronic hypercapnic and hypoxemic respiratory failure ARDS- resolved. Pneumonia community-acquired, now with HCAP with carbapenem-resistant pseudomonas and ESBL Klebsiella VAP. 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 Beck Gen surgery Dr. Ortega s/p s tracheostomy 09/15 Pulm toilet, trach care CV: Hypertension Dyslipidemia Elevated troponin - likely strain On Lopressor 50mg Q8 monitor HR and BP keep MAP>65mmHg As needed labetalol, hydralazine and Nitropaste for hypertension Echo 08/14 showed EF 65-70% mild AR/TR On Pravachol 20 mg a night for dyslipidemia Renal/: Acute kidney injury - requiring hemodialysis Dr. Tan -nephrology following. Hemodialysis Sunday//Sunday currently on hold. Tunneled cuff catheter discontinued 10/20 Reading currently trending downward currently 1.7 MIKE: ATN from sepsis syndrome and diminished renal perfusion; also aminoglycoside induced nephrotoxicity likely also contributing; possibly AIN -> per nephrology note Urine eosinophils negative. Renal ultrasound revealed no hydronephrosis Monitor renal function, I/O's, avoid nephrotoxins. Miller placed for accurate I's and O's GI: Elevated transaminases Cholelithiasis On TF Nepro's 45 cc an hour and Beneprotein 2 packs 3 times a day s/p PEG placement 09/01/[address] Ritter Pepcid 10mg BID GI prophylaxis Having BM US liver: Steatosis and cholelithiasis. Repeat 09/08 revealed cholelithiasis with no acute signs of cholecystitis. ID: Pseudomonas pneumonia Funguria, Maribell glabrata and parapsilosis. Currently off all antibiotics ID following. Pertinent cultures blood and sputum cx 08/15- NG strep pneumonia and Legionella urinary Ag negative Blood cultures 08/28: NGTD C Diff negative 08/28. Lines changed 08/28. Sputum 08/30 - Pseudomonas Sputum 09/02 PSAE, resistant to carbapenem, intermediate to Levaquin. 09/07 - urine -Maribell Guilliermondii 09/07 - blood cultures 2 - no growth 09/09 - urine -strep viridans, Maribell parapsilosis 09/10 - blood cultures 2 -no growth 09/11 - broch washings -no growth to date 09/12 - urine -Maribell glabrata and parapsilosis 09/16 - blood cultures 2 - pending 09/16 - sputum -no growth 09/16 - urine -Maribell glabrata and parapsilosis 10/02 - blood cultures 2 - staph epi 10/02 - urine - ESBL positive Klebsiella 10/04 - blood cultures 2 -no growth 10/05 - blood cultures 2 -no growth 10/17 - blood cultures -no growth 10/17 - sputum -Klebsiella ESBL positive and Stenotrophomonas maltophilia 10/17 - urine -C glabrata 10/21/ 10/22 - urine - ESBL positive Klebsiella Zosyn previously discontinued secondary to rash Followed by Dr. Uribe. Out of town. Patient asymptomatic. Dr. Eaton recommended Levaquin/ertapenem if fever arises/symptomatic. Will discuss with Dr. Eaton regarding starting ertapenem for ESBL positive Klebsiella and urine from 10/22. 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 10/14, pharmacy dosing currently at 12 mg daily. IV Heparin started due to subtherapeutic last PTT PTT on heparin drip currently therapeutic Endo: Diabetes mellitus Hypothyroidism on SSI (medium scale) for glycemic control On Synthroid 200mcg daily. TSH 1.37 GI prophylaxis-Protonix 40mg Q12 DVT - IV heparin until therapeutic on Coumadin Lines: Peripheral IV. - PEG 09/01/16 - Trach 09/15 - Right Permacath placed 09/29 Loree Marinelli, daughter (HCP): [phone] Rony Marinelli, significant other: [phone] Level II Problem Qualifiers (1) CHF (congestive heart failure): Qualified Code: I50.9 - Acute congestive heart failure, unspecified congestive heart failure type (2) Respiratory failure: Qualified Code: J96.02 - Acute respiratory failure with hypercapnia (3) Pneumonia: Qualified Code: J18.9 - Pneumonia of both lungs due to infectious organism, unspecified part of lung Pal Uribe MD October 24, 2016 13:39
[2016-10-24] MEDS: MORPHINE SULFATE 4 MG/ML INJ IV PRN ×2 (13:41→20:39)
--- NOTE | 2016-10-24 14:25 | HHI.IDPN ---
Subjective Subjective Remarks remains on Tpiece afebrile worsening secretions thick and bloody + leukocytosis repeat UA better Antibiotics None Lines Line sites with no e.o infection. Past Medical History reviewed. Allergies: Coded Allergies: Fentanyl (Verified Adverse Reaction, Severe, rash, 09/21/16) *MDRO Multi-Drug Resistant Organism (Verified Adverse Reaction, Unknown, ) ESBL (urine & sputum)-10/02/16 ESBL (urine)-10/22/16 Objective . Vital Signs Date Time Temp Pulse Resp B/P Pulse Ox O2 Delivery O2 Flow Rate FiO2 10/24/16 13:46 18 10/24/16 10:17 96 T-piece 40 10/24/16 09:38 100 35 10/24/16 06:00 84 10/24/16 04:00 90 10/24/16 04:00 98.6 90 22 139/85 97 10/24/16 03:38 100 40 10/24/16 02:00 92 10/24/16 00:09 100 40 10/24/16 00:00 98.4 92 22 130/77 100 10/24/16 00:00 89 10/23/16 22:00 90 10/23/16 20:47 100 40 10/23/16 20:00 98.6 98 20 135/80 100 10/23/16 20:00 98 10/23/16 19:00 97 Mechanical Ventilator 40 10/23/16 18:00 95 10/23/16 16:00 98.6 99 138/77 98 10/23/16 16:00 99 10/23/16 15:43 101 138/72 98 10/23/16 15:00 101 176/118 97 10/23/16 10/23/16 10/24/16 15:00 23:00 07:00 Intake Total 631 ml 817 ml 1245 ml Output Total 550 ml 600 ml 300 ml Balance 81 ml 217 ml 945 ml IV Total 338 ml 132 ml 78 ml Tube Feeding 293 ml 385 ml 967 ml Other 300 ml 200 ml Output Urine Total 550 ml 600 ml 300 ml . Laboratory Tests Test 10/23/16 10/24/16 05:28 05:14 White Blood Count 9.4 TH/MM3 12.2 TH/MM3 Red Blood Count 2.77 MIL/MM3 2.85 MIL/MM3 Hemoglobin 7.9 GM/DL 8.0 GM/DL Hematocrit 23.3 % 24.3 % Mean Corpuscular Volume 84.2 FL 85.3 FL Mean Corpuscular Hemoglobin 28.6 PG 27.9 PG Mean Corpuscular Hemoglobin 34.0 % 32.7 % Concent Red Cell Distribution Width 18.4 % 18.4 % Platelet Count 312 TH/MM3 310 TH/MM3 Mean Platelet Volume 7.0 FL 7.0 FL Neutrophils (%) (Auto) 45.9 % Lymphocytes (%) (Auto) 36.4 % Monocytes (%) (Auto) 10.5 % Eosinophils (%) (Auto) 5.8 % Basophils (%) (Auto) 1.4 % Neutrophils # (Auto) 4.3 TH/MM3 Lymphocytes # (Auto) 3.4 TH/MM3 Monocytes # (Auto) 1.0 TH/MM3 Eosinophils # (Auto) 0.5 TH/MM3 Basophils # (Auto) 0.1 TH/MM3 CBC Comment AUTO DIFF Differential Total Cells 100 Counted Neutrophils % (Manual) 40 % Band Neutrophils % 6 % Lymphocytes % 34 % Monocytes % 3 % Eosinophils % 8 % Basophils % 2 % Neutrophils # (Manual) 5.0 TH/MM3 Metamyelocytes 4 % Myelocytes 3 % Nucleated Red Blood Cells 1 /100 WBC Differential Comment FINAL DIFF MANUAL Platelet Estimate NORMAL Platelet Morphology Comment NORMAL Laboratory Tests Test 10/23/16 10/23/16 10/24/16 05:28 16:14 07:42 Sodium Level 146 MEQ/L 144 MEQ/L 145 MEQ/L Potassium Level 3.1 MEQ/L 3.6 MEQ/L 3.4 MEQ/L Chloride Level 102 MEQ/L 104 MEQ/L 105 MEQ/L Carbon Dioxide Level 32.9 MEQ/L 31.1 MEQ/L 31.4 MEQ/L Anion Gap 11 MEQ/L 9 MEQ/L 9 MEQ/L Blood Urea Nitrogen 57 MG/DL 53 MG/DL 54 MG/DL Creatinine 1.63 MG/DL 1.65 MG/DL 1.60 MG/DL Estimat Glomerular Filtration 33 ML/MIN 32 ML/MIN 33 ML/MIN Rate Random Glucose 107 MG/DL 133 MG/DL 133 MG/DL Calcium Level 9.7 MG/DL 9.6 MG/DL 9.5 MG/DL Phosphorus Level 4.5 MG/DL Magnesium Level 2.3 MG/DL Total Bilirubin 0.3 MG/DL Aspartate Amino Transf 23 U/L (AST/SGOT) Alanine Aminotransferase 42 U/L (ALT/SGPT) Alkaline Phosphatase 79 U/L Total Protein 6.5 GM/DL Albumin 3.5 GM/DL Microbiology Date/Time Procedure Status Source Growth 10/21/16 17:40 Urine Culture - Final Complete Urine Catheterized Urine Klebsiella Pneumoniae Esbl Pos 10/22/16 21:20 Urine Culture - Final Complete Urine Clean Catch Klebsiella Pneumoniae Esbl Pos Imaging Last Impressions Chest X-Ray 10/23/16 0600 Signed Impressions: Service Date/Time: Sunday, October 23, 2016 05:27 - CONCLUSION: Interval dialysis catheter removal. Slight interval worsening in aeration at the right lung base Dejan Cervantes MD Central Venous Line 10/20/16 0000 Signed Impressions: Service Date/Time: Thursday, October 20, 2016 00:00 - CONCLUSION: Uncomplicated Permcath removal. Didier Zhang MD Catheter Placement X-Ray 09/29/16 1223 Signed Impressions: Service Date/Time: Thursday, September 29, 2016 12:31 - CONCLUSION: Vas-Cath to PermCath exchange as detailed above. Taco Haas Jr., MD Renal Ultrasound 09/17/16 0000 Signed Impressions: Service Date/Time: Saturday, September 17, 2016 13:31 - CONCLUSION: Negative renal sonogram. Taco Davidson MD Upper Extremity Ultrasound 09/14/16 0000 Signed Impressions: Service Date/Time: August 08:32 - CONCLUSION: There is thrombus within the left subclavian and internal jugular veins. Danyel Escalante MD Lower Extremity Ultrasound 09/13/16 0000 Signed Impressions: Service Date/Time: Tuesday, September 13, 2016 22:33 - CONCLUSION: Normal examination. Leonides Mason MD Liver Ultrasound 09/08/16 0000 Signed Impressions: Service Date/Time: Thursday, September 08, 2016 08:45 - CONCLUSION: 1. Cholelithiasis with distended gallbladder. However, there are no associated findings present to diagnose acute cholecystitis. If there is persistent clinical concern for acute cholecystitis could evaluate for cystic duct obstruction with hepatobiliary scintigraphy. 2. Hepatomegaly with very heterogeneous echotexture and steatosis. Dejan Allison MD Gall Bladder Ultrasound 08/29/16 0000 Signed Impressions: Service Date/Time: Monday, August 29, 2016 15:21 - CONCLUSION: 1. Hepatomegaly with heterogeneous echotexture throughout the liver. 2. There is a large echogenic area near the neck of the gallbladder suggestive of a stone, but despite its large size, demonstrates no acoustic shadowing in any of the views. Taco Davidson MD CT Angiography 08/15/16 0000 Signed Impressions: Service Date/Time: Monday, August 15, 2016 02:33 - CONCLUSION: 1. No evidence for pulmonary embolism. 2. Multifocal consolidation greatest in the right lower lobe and associated adenopathy. Terry Esrtada MD Physical Exam GENERAL: Morbidly obese patient, awake, NAD, on the vent SKIN: no rash HEAD: Atraumatic. Normocephalic. No temporal or scalp tenderness. EYES: Pupils equal round and reactive. No scleral icterus. Moist mucosa ENT: No nasal discharge. Dry oral mucosa NECK:Supple. Trach in place, thick bloody secretions CARDIOVASCULAR: Regular rate and rhythm RESPIRATORY: transmitted upper airway sounds GASTROINTESTINAL: Abdomen soft, obese, non-tender, nondistended. No hepatiomegaly MUSCULOSKELETAL: Extremities without clubbing, cyanosis. Edema , trace NEUROLOGICAL: awake alert, communicates PIV with no evidence of infection : Cline in place with clear yellow urine. Assessment & Plan Remarks Sepsis present on admission. HCAP: ESBL and very MDR PSAE Staph epidermidis: possible contaminant but will repeat HD cath culture. Morbid Obesity (BMI 45.8 kg/m2) Obstructive Sleep Apnea (supposed to be on CPAP at home and home oxygen 2L) Acute respiratory failure vent dependent. Acute metabolic encephalopathy: infection, meds. Thrombosis of cephalic vein. Renal insufficiency, HD on hold as Cr and UO improving. ESBL Kleb pneumo , Stenotroph in the sputum - much improved secretions ? colonization; sputum not purulent - clincally doing well; afebrile, with nl WBC - infiltrates on CXR might not be infectious in the nature C. glabrata fungiua- cw colonization, no candiduria on repaet clx with new cline Now bacteriuria less likely UTI, ESBL Kleb pneumo - with clinically asymptomatic pt I will cont to hold off abx) Now worsening secretiona and leukocuytosis Recs: - rechk sputum clx and CXR - will start Ertapenem dw Reba Gardner MD October 24, 2016 14:25
[2016-10-24] MEDS ORDERED: ASP: Documented ESBL, MDR A baumannii or P. aeruginosa PRN (14:30)
[2016-10-24] MEDS ORDERED: MISCELLANEOUS PHARMACY INFORMATION XX PRN (14:30)
--- NOTE | 2016-10-24 15:14 | RADRPT ---
EXAM DATE/TIME: 10/24/2016 14:31 [facility] COMPARISON: CHEST SINGLE AP, October 23, 2016, 5:27. INDICATIONS : Cough. MEDICAL HISTORY : Congestive heart failure. SURGICAL HISTORY : tracheostomy ENCOUNTER: Subsequent ACUITY: 2 months PAIN SCORE: Non-responsive. LOCATION: Bilateral chest FINDINGS: There is a right infiltrate in the right lung base. The left lung is grossly clear. There is some pul monary venous congestion. The heart size is stable. The tracheostomy tube remains in place. There is no pneumothorax. CONCLUSION: Mild right lower lung infiltrate without significant change. Kieran Ford MD on October 24, 2016 at 15:12 Board Certified Radiologist. This report was verified electronically.
[2016-10-24] MEDS ORDERED: WARFARIN SOD 6 MG TAB PO SCH (16:00)
[2016-10-24] MEDS: WARFARIN SOD 6 MG TAB PO SCH (16:10)
[2016-10-24] MEDS: ERTAPENEM INJ 1,000 MG in SODIUM CHLORIDE 0.9% INJ 100 ML IV SCH (17:37)
[2016-10-24] MEDS: PRAVASTATIN SOD 20 MG TAB PO SCH (20:39)
[2016-10-24] MEDS: MELATONIN 5 MG TAB PO SCH (20:39)
[2016-10-24] MEDS: POTASSIUM CHLORIDE 20 MEQ PWD PACKET NG SCH (20:40)
[2016-10-25] VITALS (18 sets, daily range): BP systolic 112–153; BP diastolic 71–82; PULSE 80–97; RESP 21–24; TEMP 98.6–99.6; O2SAT 92–100
[2016-10-25] MEDS: RESP: ALBUTEROL 2.5 MG/IPRATROPIUM 0.5 MG NEB (SCH) NEB ×4 (03:32→21:18)
[2016-10-25] MEDS: CHLORHEXIDINE GLUCONATE 2 % 1 PACK (2 CLOTHS) TOP SCH (04:00)
[2016-10-25] MEDS: LEVOTHYROXINE SODIUM 200 MCG TAB PO SCH (06:38)
[2016-10-25] MEDS: METOPROLOL TARTRATE 25 MG TAB G-TUBE SCH ×3 (06:38→23:49)
[2016-10-25] MEDS: QUEtiapine FUMARATE 25 MG TAB PO SCH ×3 (06:38→23:48)
[2016-10-25] MEDS: HEPARIN-D5W 25,000 U/250 ML 250 ML IV SCH (06:40)
[2016-10-25 06:51] LABS: APTT (PATIENT) 54.4 SEC (24.3-30.1); INTERNATIONAL NORMALIZED RATIO 1.1 RATIO; PROTHROMBIN TIME - PATIENT 12.2 SEC (9.8-11.6)
[2016-10-25] MEDS: POTASSIUM CHLORIDE 20 MEQ PWD PACKET NG SCH ×2 (09:00→21:00)
[2016-10-25] MEDS: SODIUM CHLORIDE 0.9% FLUSH 10 ML FLUSH IVF SCH (09:00)
[2016-10-25] MEDS: BENEPROTEIN POWDER 1 PACK G-TUBE SCH ×3 (09:00→17:12)
--- NOTE | 2016-10-25 09:20 | HHI.NPPN ---
Subjective Complaints: Obesity, Shortness of Breath General Problems: Edema, Hypotension, Obesity Renal Failure: Acute Interval History She has had epistaxis of left nare this morning. She has no complaints today. Up in chair. Renal labs pending. (Genny Lowery) Review of Systems General General Remarks no pain (Genny Lowery) Respiratory Lungs: SOB, Cough (Genny Lowery) Cardiovascular Cardiac: Edema (Genny Lowery) Endocrine Endocrine: Thirst (Genny Lowery) Neuro Neuro Remarks generalized muscle fasciculation (Genny Lowery) Objective Data Data 10/24/16 10/25/16 19:00 07:00 Intake Total 905 ml 767 ml Output Total 1000 ml 1100 ml Balance -95 ml -333 ml IV Total 176 ml 201 ml Tube Feeding 529 ml 266 ml Other 200 ml 300 ml Output Urine Total 1000 ml 1100 ml # Bowel Movements 1 Vital Signs Date Time Temp Pulse Resp B/P Pulse Ox O2 Delivery O2 Flow Rate FiO2 10/25/16 08:19 97 40 10/25/16 06:07 100 40 10/25/16 06:00 93 10/25/16 04:00 92 10/25/16 04:00 98.8 92 24 134/81 94 10/25/16 02:00 80 10/25/16 01:02 99 40 10/25/16 00:00 98.6 84 21 112/71 98 10/25/16 00:00 81 10/25/16 00:00 84 10/24/16 22:00 81 10/24/16 21:00 100 Mechanical Ventilator 40 10/24/16 20:49 99 40 10/24/16 20:44 20 10/24/16 20:00 98.4 91 24 136/78 96 10/24/16 20:00 91 10/24/16 19:00 96 T-Piece 35 10/24/16 18:00 90 10/24/16 17:00 98.6 92 126/59 100 10/24/16 17:00 92 10/24/16 16:00 84 148/74 98 10/24/16 16:00 84 10/24/16 15:00 83 10/24/16 15:00 83 131/69 100 5/30/17 14:00 84 10/24/16 14:00 84 146/78 100 10/24/16 13:00 92 10/24/16 13:00 92 145/79 99 10/24/16 12:00 91 10/24/16 12:00 98.6 91 149/80 99 10/24/16 11:00 91 124/75 94 10/24/16 11:00 91 10/24/16 10:17 96 T-piece 40 10/24/16 10:00 90 10/24/16 10:00 90 131/73 100 10/24/16 09:38 100 35 (Genny Lowery) -: 10/24/16 0514 10/24/16 0742 Microbiology 10/24/16 Gram Stain - Final, Resulted 10/24/16 Sputum Culture, Resulted Pending Imaging Last Impressions Chest X-Ray 10/24/16 0000 Signed Impressions: Service Date/Time: Monday, October 24, 2016 14:31 - CONCLUSION: Mild right lower lung infiltrate without significant change. Kieran Ford MD Central Venous Line 10/20/16 0000 Signed Impressions: Service Date/Time: Thursday, October 20, 2016 00:00 - CONCLUSION: Uncomplicated Permcath removal. Didier Zhang MD Catheter Placement X-Ray 09/29/16 1223 Signed Impressions: Service Date/Time: Thursday, September 29, 2016 12:31 - CONCLUSION: Vas-Cath to PermCath exchange as detailed above. Taco Haas Jr., MD Renal Ultrasound 09/17/16 0000 Signed Impressions: Service Date/Time: Saturday, September 17, 2016 13:31 - CONCLUSION: Negative renal sonogram. Taco Davidson MD Upper Extremity Ultrasound 09/14/16 0000 Signed Impressions: Service Date/Time: August 08:32 - CONCLUSION: There is thrombus within the left subclavian and internal jugular veins. Danyel Escalante MD Lower Extremity Ultrasound 09/13/16 0000 Signed Impressions: Service Date/Time: Tuesday, September 13, 2016 22:33 - CONCLUSION: Normal examination. Leonides Mason MD Liver Ultrasound 09/08/16 0000 Signed Impressions: Service Date/Time: Thursday, September 08, 2016 08:45 - CONCLUSION: 1. Cholelithiasis with distended gallbladder. However, there are no associated findings present to diagnose acute cholecystitis. If there is persistent clinical concern for acute cholecystitis could evaluate for cystic duct obstruction with hepatobiliary scintigraphy. 2. Hepatomegaly with very heterogeneous echotexture and steatosis. Dejan Allison MD Gall Bladder Ultrasound 08/29/16 0000 Signed Impressions: Service Date/Time: Monday, August 29, 2016 15:21 - CONCLUSION: 1. Hepatomegaly with heterogeneous echotexture throughout the liver. 2. There is a large echogenic area near the neck of the gallbladder suggestive of a stone, but despite its large size, demonstrates no acoustic shadowing in any of the views. Taco Davidson MD CT Angiography 08/15/16 0000 Signed Impressions: Service Date/Time: Monday, August 15, 2016 02:33 - CONCLUSION: 1. No evidence for pulmonary embolism. 2. Multifocal consolidation greatest in the right lower lobe and associated adenopathy. Terry Estrada MD Tubes & Lines: Cline Tubes & Lines Comment trach, PEG Drip Comment heparin, (BeverleyGenny B. [employer]) Physical Exam General Appearance: No Acute Distress, Comfortable, Obese Appearance Remarks awake, nods head and mouths words able to communicate (BeverleyGenny B. [employer]CH[employer]) Eyes Eye Exam: Pupils Equal, Pupils Reactive (Beverley,Genny B. [employer]CH[employer]IC) Ears & Nose Ears & Nose Exam: Nosebleed Ears & Nose Remarks left nare (BeverleyGenny B. [employer]CH[employer]IC) Throat Throat Exam: Oral Mucosa [place] & Moist Throat Remarks trach (Beverley,Genny B. [employer] MECH[employer]IC) Neck Neck Exam: Neck Supple Neck Remarks trach (Beverley,Genny B. [employer]ANT MECH[employer]IC) Pulmonary Resp Exam: Clear Bilaterally Resp Remarks course throughout thick secretions (BeverleyGenny B. [employer]CH[employer]IC) Cardiology CV Exam: Regular, Normal Sinus Rhythm, Good Perfusion (Beverley,Genny B. [employer]CH[employer]IC) Gastrointestinal/Abdomen GI Exam: Soft, Bowel Sounds Present GI Remarks morbidly obese, + PEG (BeverleyGenny B. [employer]CH[employer]IC) Musculoskeletal MS Exam: Joints Intact, Normal Tone (BeverleyGenny chavez) Integumentary Skin Exam: Warm, Dry, Intact (Genny Lowery) Extremeties Extremities Exam: Pedal Pulses Palpable, Trace Edema (Genny Lowery) Neurologic Neuro Exam: Alert, Awake, Oriented, Moving All Extremities Neuro Remarks unable to speak due to trach (Genny Lowery) Assessment/Plan Discussed Condition With: Patient Assessment Summary: MIKE/Acute Renal Failure, Acute Tubular Necrosis, Fluid/ Volume Overload Problem List: (1) Acute kidney injury Plan: ARF due to ATN HD initiated 09/20; she was dialysis dependent, last treatment 10/14 she is in recovery phase, creatinine has been improving today's renal panel in process on BID potassium powder via PEG, monitor urine output, now with cline avoid nephrotoxic substances continue free water with tube feeding (2) ARDS (adult respiratory distress syndrome) Plan: s/p trach placement On CPAP intermittently with T piece Runner Out and respiratory 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 (3) Anemia Plan: Hb low but stable on heparin drip and PO protonix GI signed off transfuse PRN (4) Pneumonia Plan: + leukocytosis ID has restarted Ertapenem UA: + kyle, Klebsiella (5) Hypothyroidism Plan: on synthroid (6) DVT (deep venous thrombosis) Plan: bridge to Coumadin with Heparin , follow INR persistently subtherapeutic despite high doses of Coumadin (7) Morbid obesity (8) Hypercalcemia Plan: has improved, monitor for recurrence thought to be due to immobility (Genny Lowery) Problem List: (1) Acute kidney injury Plan: ARF due to ATN HD initiated 09/20; she was dialysis dependent, last treatment 10/14 she is in recovery phase, creatinine has been improving today's renal panel in process on BID potassium powder via PEG, monitor urine output, now with cline avoid nephrotoxic substances continue free water with tube feeding (2) ARDS (adult respiratory distress syndrome) Plan: s/p trach placement On CPAP intermittently with T piece Runner Out and respiratory 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 (3) Anemia Plan: Hb low but stable on heparin drip and PO protonix GI signed off transfuse PRN (4) Pneumonia Plan: + leukocytosis ID has restarted Ertapenem UA: + kyle, Klebsiella (5) Hypothyroidism Plan: on synthroid (6) DVT (deep venous thrombosis) Plan: bridge to Coumadin with Heparin , follow INR persistently subtherapeutic despite high doses of Coumadin (7) Morbid obesity (8) Hypercalcemia Plan: has improved, monitor for recurrence thought to be due to immobility Plan patient was seen and examined. Renal function continues to improve. Replace potassium. (Anshu Tan MD) Problem Qualifiers (1) Pneumonia: Qualified Code: J18.9 - Pneumonia of both lungs due to infectious organism, unspecified part of lung Genny Lowery [facility] October 25, 2016 09:20 Anshu Tan MD October 25, 2016 09:29
[2016-10-25] MEDS: ARTIFICIAL TEARS OPTH SOLN 15 ML BTL EACH EYE SCH ×3 (09:41→17:12)
[2016-10-25] MEDS: EUCERIN CREAM 120 GM JAR TOPICAL SCH ×2 (09:42→21:00)
[2016-10-25] MEDS: DOCUSATE SODIUM 100 MG/10 ML UDC PO SCH ×2 (09:42→23:48)
[2016-10-25] MEDS: FAMOTIDINE 40 MG/5 ML LIQ 50 ML BTL NG SCH ×2 (09:42→23:49)
[2016-10-25] MEDS: SODIUM CHLORIDE 0.9% FLUSH 10 ML FLUSH IV FLUSH SCH ×2 (09:43→23:50)
[2016-10-25 12:21] LABS: BICARBONATE 28.6 MEQ/L (21.0-32.0); POTASSIUM 4.1 MEQ/L (3.5-5.1)
--- NOTE | 2016-10-25 12:31 | HHI.PR ---
Subjective Remarks On CPAP today . Has secretions. Feels better . Wants to drink liquids. Objective Vital Signs Date Time Temp Pulse Resp B/P Pulse Ox O2 Delivery O2 Flow Rate FiO2 10/25/16 12:00 99.2 97 153/82 92 10/25/16 12:00 97 10/25/16 11:56 95 40 10/25/16 10:00 96 10/25/16 08:19 97 40 10/25/16 08:00 99.6 84 139/80 97 10/25/16 08:00 84 10/25/16 07:00 99 Mechanical Ventilator 35 10/25/16 06:07 100 40 10/25/16 06:00 93 10/25/16 04:00 92 10/25/16 04:00 98.8 92 24 134/81 94 10/25/16 02:00 80 10/25/16 01:02 99 40 10/25/16 00:00 98.6 84 21 112/71 98 10/25/16 00:00 81 10/25/16 00:00 84 10/24/16 22:00 81 10/24/16 21:00 100 Mechanical Ventilator 40 10/24/16 20:49 99 40 10/24/16 20:44 20 10/24/16 20:00 98.4 91 24 136/78 96 10/24/16 20:00 91 10/24/16 19:00 96 T-Piece 35 10/24/16 18:00 90 10/24/16 17:00 98.6 92 126/59 100 10/24/16 17:00 92 10/24/16 16:00 84 148/74 98 10/24/16 16:00 84 10/24/16 15:00 83 10/24/16 15:00 83 131/69 100 10/24/16 14:00 84 10/24/16 14:00 84 146/78 100 10/24/16 13:00 92 10/24/16 13:00 92 145/79 99 I/O 10/24/16 10/24/16 10/24/16 10/25/16 10/25/16 10/25/16 07:00 15:00 23:00 07:00 15:00 23:00 Intake Total 1245 ml 1241 ml 431 ml Output Total 300 ml 1500 ml 600 ml Balance 945 ml -259 ml -169 ml IV Total 78 ml 272 ml 105 ml Tube Feeding 967 ml 529 ml 266 ml Other 200 ml 440 ml 60 ml Output Urine Total 300 ml 1500 ml 600 ml # Bowel Movements 1 Result Diagram: 10/24/16 0514 10/25/16 1145 Objective Remarks This is an obese middle-aged white female who is responsive. HEENT: Head normocephalic.throat clear. Neck: No bruits, no thyroid enlargement, no lymphadenopathy.No JVD Chest: Decreased breath sounds. Few Wheezes heard. Heart: Heart sounds were regular. S1-S2 no murmur, no S3. Abdomen: Soft, benign. No masses, or tenderness. Bowel sounds are active. Extremities:min edema . Neuro :Moves all limbs. Neuro , no deficits. Awake . Assessment and Plan Assessment and Plan IMPRESSION 1. Acute hypercapnic respiratory failure.Resolving 2. Pulmonary edema. 3. Drug rash 4. Obstructive sleep apnea syndrome 5. Hypertension 6. Hypothyroidism. 7. MIKE Plan : 1. Cont on T Bar 40 % daytime upto 12 hrs 2. Trach toilet and suctioning. 3. Nebs qid , duoneb. 4. Place on CPAP/PSV 10/06, 35 % at HS 5. Precedex drip, to keep sedated 6. PT and OT 7. Tube feeds at 50 CC 8. Rehab placement Abimael Beck MD October 25, 2016 12:31
--- NOTE | 2016-10-25 15:09 | HHI.CCPN ---
Subjective Remarks/Hospital Course 56-year-old morbidly obese female brought in the emergency department in respiratory distress. She was intubated by ER attending. She has been sick for about a week with symptoms consistent with UTI. She's had fevers and chills. She's been short of breath. She's had fatigue. She has had a cough and chest pain with coughing. The family reports that she's been delirious for the last 3 days. 08/15 Patient is sedated with Diprivan, Versed, Fentanyl and intubated. CTA chest showed no PE multifocal consolidation greatest in RLL. Tmax 100.6 08/16 Patient is sedated with Diprivan and Fentanyl. Afebrile. CXR this morning showed increase consolidation. 08/17 Patient remains sedated and intubated. T:100.4 On PRVC/AC RR 18, Tv 500, IT :1.0 PEEP:10, FIO2 75% 08/18 Remains sedated and intubated. Afebrile. CXR this morning unchanged bibasilar infiltrates and effusions. 08/19 Patient was placed on rotoprone bed last night for proning sedated with Diprivan, Versed and Fentnayl in addition she is on Nimbex. On PRVC/AC RR 20, TV 400, IT:1.1, PEEP:14 and FIO2 80%. Afebrile. 08/20 Patient remains sedated and intubated. Remains on PRVC/AC mode with improvements in her oxygenation on FIO2 50% from 80% yesterday and PEEP:12. 08/21 Patient remains sedated and intubated. On PRVC/AC mode with RR 20, TV 400, IT:1.1, PEEP: 12 and FIO2 50%. Afebrile. 08/22 No acute events overnight. Remains sedated, intubated and on Nimbex.. T: 99.8. On PRVC mode with PEP: 12, FIO2 50%. CXR from yesterday showed better aeration, RLL infiltrate unchanged. 08/23 Chest x-ray worsening. Methylprednisolone taper to twice a day by pulmonary. The patient's FiO2 was found to be 100% this a.m., will continue to wean. 08/24: 1 desat episode yesterday when supine. still remains prone now. no vasopressors. sedated and paralyzed. 08/25: flolan added yesterday. fio2 down to 60%. remained supine all night. still on neuromuscular blockade. net -500cc/24h. 08/26: good diuresis. remained supine. fio2 70%. weaning flolan. remains with significant respiratory support and high peep despite 6L diuresis overnight. Cr still stable. 08/27: continues with good diuresis. net negative 3L/24h. fio2 down to 55%. flolan off. still high peep. not ready for SBT. more agitated today. Cr remains stable despite aggressive diuresis. 08/28: diuresis continues. -3.3L/24h. spiked fever overnight with a jump in wbc to 16 this AM. fio2 60%, but her pulmonary improvements have plateaued at this point. still on peep 12. 08/29: net -1.7L/24h. Cr starting to rise. still spiking fevers despite vanc/ cefepime added yesterday. wbc continues to rise. clinically appears infected, although unclear source. peep 10, fio2 60%. will likely need trach. 08/30: net +800cc, but Cr downtrending. appears clinically euvolemic. fever curve downtrending. wbc downtrending. on 40% fio2, peep 8 today. still following commands. 08/31: failed SBT after only 45 minutes yesterday. intubated for > 2 weeks at this point. will attempt to pursue trach/peg today. will continue with pulmonary strengthening. daily SBTs. 09/01 CXR showing increasing bibasilar infiltrate. Failed C Pap trial in 5 minutes due to severe tachypnea. PEG tube today. Family has not decided on trach yet 09/02: Patient febrile to 101.1, CXR increased infiltrate Tmax Tmax 101.1. Currently 9.7 left upper lung and right lower lobe. Pancultured. Cefepime added today and one dose of vancomycin. Continues to fail C Pap trial due to tachypnea and respiratory distress 09/03: Remains hypoxemic on 75% oxygen with new pneumonia. Sputum culture 09/02/16 with GNR. Family agreeable for tracheostomy but patient is not stable at this point for trach 09/04: still on 70% fio2. still hypoxic. pneumonia persists. needs trach, but too unstable at this point. 09/05: remains on 75% fio2. pseudomonas sensitivities came back resistant to carbapenems, intermediate to levaquin. still spiking fevers. not clinically improving. wbc remains elevated. 09/06: Remains on 12 of PEEP and FiO2 75%. Zosyn and tobramycin started yesterday. WBC count trending down today 11.5 from 13.1. Remains heavily sedated for ventilator synchrony. MAXIMUM TEMPERATURE 100.3 09/07: Continues to spike fever. CXR unchanged. WBC count improving. PEEP 14. FiO2 60%. Will start IV Bumex 1mg IV q12 09/09: Tolerating tube feeds at goal. Afebrile. No documented bowel movement. Currently sedated on the ventilator 09/10: Tmax 99.7. Currently 99.4. No bowel movement yesterday. None document since 09/04. Arousable on the ventilator 09/11: Tmax 102.6. Currently 100. Positive BM. Arousable on the ventilator. Tolerating tube feeds. Central line changed yesterday. Plan for bronchoscopy at 1 PM. 09/12: Tmax 100.1. Currently afebrile. Follows commands today. Wiggles toes and give thumbs up appropriately. MRI brain canceled. Tolerating tube feeding with positive BM. Tracheostomy currently planned for . 09/13: Tmax 102. Again on sedation [place] commands by wiggling toes bilaterally and giving thumbs up bilaterally appropriate. Tolerating tube feeding with positive BM. Tracheostomy planned for tomorrow with Dr. Ortega. 09/14: Low grade fever. CXR showing more prominent infiltrate on the right lower lobe and left upper lobe. WBC trending up still in normal range. Patient is on 40% FiO2 but continues to fail CPAP due to tachypnea 09/15: Remains intubated sedated, unable to wean off the vent. Plan for tracheostomy today with Dr. Ortega. Continues to have low grade fever. CXR with persistent bibasilar infiltrates 09/16: Tmax 101.1. Currently 100.7. Awake and alert. Following commands. 09/17: Afebrile. Currently on PSV trial. Tolerating tube feeds. One bowel movement. Noted decreased urine output past 48 hours. Diuretics have been discontinued. This a.m. creatinine currently pending. 09/18: Afebrile. Adequate urine output yesterday but decreased 150 past 8 hours. Tolerating tube feeds. One bowel movement. Not tolerating PSV trials today. 09/19: Tmax 100.5. Urine output picking up. Tolerating tube feeds. No bowel movement 48 hours. Not tolerating PSV trials. 09/20: Diffuse drug morbilliform exanthem noted this a.m. Tmax 100.6. Urine output around 20 cc an hour. Not tolerating PSV trials. Possibly new right pleural effusion noted on chest x-ray. Will need hemodialysis 09/21: Tmax 100.6 currently 98.7. -4 L with hemodialysis yesterday and today. FiO2 to 60%. Tolerating tube feeds. Positive BM. Still requiring sedation 09/22: Afebrile. Tolerating tube feeds. Positive BM. 30 g per kilogram per minute of propofol. Tolerated PSV trials 3 hours today 09/23 HD today with 3.5 L removal. Tolerating CPAP for 8 hours, currently 45% with RSBI 45%. 09/24 Called by RN this morning for concern for bloody BMs. Placed heparin and warfarin on hold. Serial Hgb ordered. Hgb 9.3 -->8.6 and hemodynamically unchanged. Started on protonix drip. Heme stool is negative and now RN states she is concerned about the adequacy of specimen, so sending repeat. Had asked GI to see, however further workup will not be indicated if hemoccult is negative. Tolerating PSV 05/06 09/25: heparin restarted. hemocult negative x 2. 09/26: no changes. still failing cpap trials. 09/27: Tmax 101.5. Currently 99.5. Resting on Diprivan drip at 25 mcg/kg/m. Currently tolerating tube feeding.. One bowel movement. 09/28: Hemoglobin trending downward. Transfusing 1 unit PRBCs with hemodialysis today. Currently afebrile. Appears comfortable ventilator 2 bowel movements 09/29 No events overnight. Sedated with Diprivan and on ventilator via trach. T: 99.9 For Perma Cath placement today. s/p HD yesterday with removal 4L and transfusion 1unit PRBC with HD. 09/30: Tmax 100.8. No events overnight. No bowel movement. Tolerating tube feeds. 10/01: Tmax 101.3. Currently resting in bed in no acute distress. Tolerating tube feeds. Chest x-ray revealed atelectasis. -5 L with hemodialysis yesterday. 10/02 Patient remains on ventilator via trach on PRVC/AC with PEEP: 10 and FIO2 50 %. T: 102.1 at 4 am. 10/03 Patient is off sedation on ventilator via trach. Tmax 101.2 last night. For HD today. 10/04: Tmax 101.5. Currently afebrile. Tolerating PSV trial. Hemodialysis - 4.5 L yesterday. Positive BM. New rash. Received chlorhexidine today. 10/05: Tmax 100. Currently 98.9. Positive BM. Tolerating tube feeds. Less erythematous today. Currently on dialysis 10/06: Tmax 99.9. Currently 99.7. Currently on PSV trial 09/12 @ 45%. Tolerating tube feed. Positive bowel movement 10/07: Tmax 99.8. currently psv 10/8/40%. has not been out of bed in weeks due to critical illness. needs to be mobilized. still no placement plan. 10/08: Tmax 100.4. on t-piece currently. tolerated psv yesterday. have ordered specialty chair and currently awaiting it to arrive. 10/09 Patient remains on ventilator via trach, T:99.9 on no sedation. 10/10 No acute events overnight. For HD today on heparin drip. T:99.8, tolerating tube feeds. 10/11 No events overnight. s/p HD yesterday with removal 3.5L. Tmax 100.5. Tolerating CPAP on PS 10, PEEP: 5 and FIO2 40%. 10/12: Patient receiving hemodialysis today. Tolerating CPAP. Very weakly following commands in all 4 extremities 10/13: 6 hours of T piece yesterday. Currently on TPs and following commands slightly better today. 10/14: No acute events reported overnight. Remains on CPAP on the vent. Getting hemodialysis now 10/15: Tachypneic today 35-38 breath per min, maintaining O2 sat. No fever. CXR unchanged. PS increased to 18. Will check ABG 10/16: Awake and alert, remains on mechanical ventilation via tracheostomy. Daily C Pap trials as tolerated. 10/17: Awake and alert. On mechanical ventilation via tracheostomy. Daily C Pap trials ongoing. 10/18: Tmax 101.8 currently 98.6. Awake and alert on the ventilator. Tolerating tube feeding. Positive BM 2. Patient was pancultured blood sputum and urine overnight 10/17 10/19: Afebrile overnight. Currently sitting in bariatric chair. Some brownish secretions from tracheostomy site. On T piece 10/20: Resting in bed in no acute distress. Tolerating T piece. Positive BM. Interactive 10/21: Afebrile. Tolerating T piece. Resting in bed in no acute distress. Interactive. Positive BM. Tolerate feeds. No bleeding from removed tunneled cuffed hemodialysis catheter 10/22: Afebrile. Tolerating T piece. Resting in bed in no acute distress. Tolerating tube feeds. Subjective 10/23: Sitting up in chair. On T piece at the time of my evaluation. Awake and alert, following commands. 10/24: Resting in bed comfortably on mechanical ventilation via tracheostomy. C Pap/T piece trials ongoing 10/25: Resting in bed comfortably on mechanical ventilation via tracheostomy. On C Pap trial. Objective Vital Signs Date Time Temp Pulse Resp B/P Pulse Ox O2 Delivery O2 Flow Rate FiO2 10/25/16 14:14 97 T-piece 6.00 40 10/25/16 14:00 97 10/25/16 12:00 99.2 153/82 10/25/16 04:00 24 Intake and Output 10/24/16 10/24/16 10/24/16 07:59 15:59 23:59 Intake Total 1245 ml 1241 ml Output Total 300 ml 1500 ml Balance 945 ml -259 ml Result Diagram: 10/24/16 0514 10/25/16 1145 Other Results Microbiology Date/Time Procedure Status Source Growth 10/22/16 21:20 Urine Culture - Final Complete Urine Clean Catch Klebsiella Pneumoniae Esbl Pos Imaging Last Impressions Central Venous Line 10/20/16 0000 Signed Impressions: Service Date/Time: Thursday, October 20, 2016 00:00 - CONCLUSION: Uncomplicated Permcath removal. Didier Zhang MD Chest X-Ray 10/18/16 0600 Signed Impressions: Service Date/Time: Tuesday, October 18, 2016 04:09 - CONCLUSION: Right lung base infiltrate has improved and there is questionable infiltrate left upper lobe with mild prominence of interstitial markings. Danyel Escalante MD Catheter Placement X-Ray 09/29/16 1223 Signed Impressions: Service Date/Time: Thursday, September 29, 2016 12:31 - CONCLUSION: Vas-Cath to PermCath exchange as detailed above. Taco Haas Jr., MD Renal Ultrasound 09/17/16 0000 Signed Impressions: Service Date/Time: Saturday, September 17, 2016 13:31 - CONCLUSION: Negative renal sonogram. Taco Davidson MD Upper Extremity Ultrasound 09/14/16 0000 Signed Impressions: Service Date/Time: August 08:32 - CONCLUSION: There is thrombus within the left subclavian and internal jugular veins. Danyel Escalante MD Lower Extremity Ultrasound 09/13/16 0000 Signed Impressions: Service Date/Time: Tuesday, September 13, 2016 22:33 - CONCLUSION: Normal examination. Leonides Mason MD Liver Ultrasound 09/08/16 0000 Signed Impressions: Service Date/Time: Thursday, September 08, 2016 08:45 - CONCLUSION: 1. Cholelithiasis with distended gallbladder. However, there are no associated findings present to diagnose acute cholecystitis. If there is persistent clinical concern for acute cholecystitis could evaluate for cystic duct obstruction with hepatobiliary scintigraphy. 2. Hepatomegaly with very heterogeneous echotexture and steatosis. Dejan Allison MD Gall Bladder Ultrasound 08/29/16 0000 Signed Impressions: Service Date/Time: Monday, August 29, 2016 15:21 - CONCLUSION: 1. Hepatomegaly with heterogeneous echotexture throughout the liver. 2. There is a large echogenic area near the neck of the gallbladder suggestive of a stone, but despite its large size, demonstrates no acoustic shadowing in any of the views. Taco Davidson MD CT Angiography 08/15/16 0000 Signed Impressions: Service Date/Time: Monday, August 15, 2016 02:33 - CONCLUSION: 1. No evidence for pulmonary embolism. 2. Multifocal consolidation greatest in the right lower lobe and associated adenopathy. Terry Estrada MD Objective Remarks GENERAL: 56 yo female currently on mechanical ventilation via tracheostomy SKIN: Warm and dry. Skin is flaky. Noted stage I to 2 decubitus ulcer\coccyx and back covered with Mepilex HEAD: Normocephalic. Atraumatic EYES: No scleral icterus. No injection or drainage. NECK: Neck is obese. Right subclavian hemodialysis catheters clean dry and intact. Tracheostomy site is clean dry and intact CARDIOVASCULAR: RRR. S1, S2. No S4. Without murmur RESPIRATORY: Diminished breath sounds throughout due to body habitus. GASTROINTESTINAL: Abdomen obese, soft, non-tender, hypoactive active bowel sounds. G-tube is clean dry and intact MUSCULOSKELETAL: 1+ edema BUE. Neuro: Awake, makes eye contact and nods to questions. Following commands moving upper and lower extremity spontaneously, though still very weak. A/P Problem List: (1) ARDS (adult respiratory distress syndrome) ICD Code: J80 Status: Acute (2) CHF (congestive heart failure) ICD Code: I50.9 Status: Acute (3) Respiratory failure ICD Code: J96.90 Status: Acute (4) Pneumonia ICD Code: J18.9 Status: Acute Assessment and Plan Neuro/Psych: Acute toxic metabolic encephalopathy Critical care myopathy Agitated delirium- improving. Minimize sedation Monitor neuro status. Fentanyl allergy On Seroquel 75 mg every 8 hours for agitation Melatonin 5mg po qHS for insomnia Acetaminophen for fever/pain Pulm: Acute on chronic hypercapnic and hypoxemic respiratory failure ARDS- resolved. Pneumonia community-acquired, now with HCAP with carbapenem-resistant pseudomonas and ESBL Klebsiella VAP. 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 Beck Gen surgery Dr. Ortega s/p s tracheostomy 09/15 Pulm toilet, trach care CV: Hypertension Dyslipidemia Elevated troponin - likely strain On Lopressor 50mg Q8 monitor HR and BP keep MAP>65mmHg As needed labetalol, hydralazine and Nitropaste for hypertension Echo 08/14 showed EF 65-70% mild AR/TR On Pravachol 20 mg a night for dyslipidemia Renal/: Acute kidney injury - requiring hemodialysis Dr. Tan -nephrology following. Hemodialysis Sunday//Sunday currently on hold. Tunneled cuff catheter discontinued 10/20 [place] currently trending downward currently 1.7 MIKE: ATN from sepsis syndrome and diminished renal perfusion; also aminoglycoside induced nephrotoxicity likely also contributing; possibly AIN -> per nephrology note Urine eosinophils negative. Renal ultrasound revealed no hydronephrosis Monitor renal function, I/O's, avoid nephrotoxins. Miller placed for accurate I's and O's GI: Elevated transaminases Cholelithiasis On TF Nepro's 45 cc an hour and Beneprotein 2 packs 3 times a day s/p PEG placement 09/01/[address] Ritter Pepcid 10mg BID GI prophylaxis Having BM US liver: Steatosis and cholelithiasis. Repeat 09/08 revealed cholelithiasis with no acute signs of cholecystitis. ID: Pseudomonas pneumonia Funguria, Maribell glabrata and parapsilosis. ID following. Pertinent cultures blood and sputum cx 08/15- NG strep pneumonia and Legionella urinary Ag negative Blood cultures 08/28: NGTD C Diff negative 08/28. Lines changed 08/28. Sputum 08/30 - Pseudomonas Sputum 09/02 PSAE, resistant to carbapenem, intermediate to Levaquin. 09/07 - urine -Maribell Guilliermondii 09/07 - blood cultures 2 - no growth 09/09 - urine -strep viridans, Maribell parapsilosis 09/10 - blood cultures 2 -no growth 09/11 - broch washings -no growth to date 09/12 - urine -Maribell glabrata and parapsilosis 09/16 - blood cultures 2 - pending 09/16 - sputum -no growth 09/16 - urine -Maribell glabrata and parapsilosis 10/02 - blood cultures 2 - staph epi 10/02 - urine - ESBL positive Klebsiella 10/04 - blood cultures 2 -no growth 10/05 - blood cultures 2 -no growth 10/17 - blood cultures -no growth 10/17 - sputum -Klebsiella ESBL positive and Stenotrophomonas maltophilia 10/17 - urine -C glabrata 10/21/ 10/22 - urine - ESBL positive Klebsiella Zosyn previously discontinued secondary to rash Followed by Dr. Uribe. Out of town. Patient asymptomatic. Dr. Eaton recommended Levaquin/ertapenem if fever arises/symptomatic. Dr. Eaton started ertapenem on 10/24 for ESBL positive Klebsiella and urine from 10/22. 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 10/14, pharmacy dosing currently at 12 mg daily. IV Heparin started due to subtherapeutic last PTT PTT on heparin drip currently therapeutic Endo: Diabetes mellitus Hypothyroidism on SSI (medium scale) for glycemic control On Synthroid 200mcg daily. TSH 1.37 GI prophylaxis-Protonix 40mg Q12 DVT - IV heparin until therapeutic on Coumadin Lines: Peripheral IV. - PEG 09/01/16 - Trach 09/15 - Right Permacath placed 09/29 Loree Marinelli, daughter (HCP): [phone] Rony Marinelli, significant other: [phone] Level II Problem Qualifiers (1) CHF (congestive heart failure): Qualified Code: I50.9 - Acute congestive heart failure, unspecified congestive heart failure type (2) Respiratory failure: Qualified Code: J96.02 - Acute respiratory failure with hypercapnia (3) Pneumonia: Qualified Code: J18.9 - Pneumonia of both lungs due to infectious organism, unspecified part of lung Pal Uribe MD October 25, 2016 15:09
[2016-10-25] MEDS: WARFARIN SOD 6 MG TAB PO SCH (17:11)
[2016-10-25] MEDS: ERTAPENEM INJ 1,000 MG in SODIUM CHLORIDE 0.9% INJ 100 ML IV SCH (17:11)
[2016-10-25] MEDS: MELATONIN 5 MG TAB PO SCH (23:48)
[2016-10-25] MEDS: PRAVASTATIN SOD 20 MG TAB PO SCH (23:48)
[2016-10-26] VITALS (18 sets, daily range): BP systolic 104–162; BP diastolic 60–92; PULSE 72–97; RESP 16–22; TEMP 98.4–99; O2SAT 95–100
[2016-10-26] MEDS: RESP: ALBUTEROL 2.5 MG/IPRATROPIUM 0.5 MG NEB (SCH) NEB ×4 (02:57→21:49)
[2016-10-26] MEDS: CHLORHEXIDINE GLUCONATE 2 % 1 PACK (2 CLOTHS) TOP SCH (04:00)
[2016-10-26 04:58] LABS: AUTOMATED NEUTROPHIL # 6.3 TH/MM3 (1.8-7.7); BASOPHIL # 0.1 TH/MM3 (0-0.2); BASOPHIL % 0.7 % (0.0-2.0); EOSINOPHIL # 0.4 TH/MM3 (0-0.4); EOSINOPHIL % 3.4 % (0.0-4.0); HEMATOCRIT 23.6 % (35.0-46.0); LYMPH % 36.5 % (9.0-44.0); LYMPHOCYTE # 4.5 TH/MM3 (1.0-4.8); MEAN CELL VOLUME 85.9 FL (80.0-100.0); MEAN CORPUSCULAR HEMOGLOBIN 27.6 PG (27.0-34.0); MEAN CORPUSCULAR HGB CONC 32.1 % (32.0-36.0); MONO % 7.8 % (0.0-8.0); NEUT % 51.6 % (16.0-70.0); PLATELET COUNT 284 TH/MM3 (150-450); RED BLOOD COUNT 2.74 MIL/MM3 (4.00-5.30); RED CELL DISTRIBUTION WIDTH 19.1 % (11.6-17.2); WHITE BLOOD COUNT 12.2 TH/MM3 (4.0-11.0)
--- NOTE | 2016-10-26 05:00 | RADRPT ---
EXAM DATE/TIME: 10/26/2016 04:09 [facility] COMPARISON: CHEST SINGLE AP, October 24, 2016, 14:31. INDICATIONS : Shortness of breath, possible pulmonary disease. MEDICAL HISTORY : Congestive heart failure. SURGICAL HISTORY : Tracheostomy ENCOUNTER: Subsequent ACUITY: 2 months PAIN SCORE: Non-responsive. LOCATION: Bilateral chest FINDINGS: Tracheostomy is noted. Minimal bibasilar parenchymal opacities are present. Cardiac contours are stab le. CONCLUSION: No significant change Dejan Cervantes MD on October 26, 2016 at 4:57 Board Certified Radiologist. This report was verified electronically.
[2016-10-26 05:09] LABS: APTT (PATIENT) 55.7 SEC (24.3-30.1); INTERNATIONAL NORMALIZED RATIO 1.2 RATIO
[2016-10-26 05:11] LABS: HEMO FLAGS AUTO DIFF
[2016-10-26 05:29] LABS: ANION GAP 9 MEQ/L (5-15); AST (GOT) 20 U/L (15-37); BICARBONATE 30.6 MEQ/L (21.0-32.0); BLOOD UREA NITROGEN 44 MG/DL (7-18); CHLORIDE 104 MEQ/L (98-107); GLOMERULAR FILTRATION RATE 40 ML/MIN (>89); MAGNESIUM 2.3 MG/DL (1.5-2.5); POTASSIUM 3.4 MEQ/L (3.5-5.1); SODIUM (NA) 144 MEQ/L (136-145)
[2016-10-26 05:34] LABS: ALKALINE PHOSPHATASE 85 U/L (45-117); ALT (GPT) 36 U/L (10-53); TOTAL BILIRUBIN ADULT 0.3 MG/DL (0.2-1.0)
[2016-10-26] MEDS: LEVOTHYROXINE SODIUM 200 MCG TAB PO SCH (06:32)
[2016-10-26] MEDS: METOPROLOL TARTRATE 25 MG TAB G-TUBE SCH ×3 (06:32→22:13)
[2016-10-26] MEDS: QUEtiapine FUMARATE 25 MG TAB PO SCH ×3 (06:32→22:13)
[2016-10-26 07:06] LABS: SCAN/DIFF AUTO DIFF CONFIRMED
[2016-10-26] MEDS ORDERED: POTASSIUM CHLORIDE 20 MEQ PWD PACKET PEG ONE (08:15)
[2016-10-26] MEDS: DOCUSATE SODIUM 100 MG/10 ML UDC PO SCH ×2 (08:30→21:00)
[2016-10-26] MEDS: ARTIFICIAL TEARS OPTH SOLN 15 ML BTL EACH EYE SCH ×3 (08:30→16:57)
[2016-10-26] MEDS: FAMOTIDINE 40 MG/5 ML LIQ 50 ML BTL NG SCH ×2 (08:30→20:43)
[2016-10-26] MEDS: SODIUM CHLORIDE 0.9% FLUSH 10 ML FLUSH IVF SCH (08:30)
[2016-10-26] MEDS: EUCERIN CREAM 120 GM JAR TOPICAL SCH ×2 (08:30→20:44)
[2016-10-26] MEDS: POTASSIUM CHLORIDE 20 MEQ PWD PACKET NG SCH ×2 (08:30→20:44)
[2016-10-26] MEDS: BENEPROTEIN POWDER 1 PACK G-TUBE SCH ×3 (08:31→17:03)
[2016-10-26] MEDS: SODIUM CHLORIDE 0.9% FLUSH 10 ML FLUSH IV FLUSH SCH ×2 (08:31→20:42)
--- NOTE | 2016-10-26 12:14 | HHI.NPPN ---
Subjective Complaints: Obesity, Shortness of Breath General Problems: Edema, Hypotension, Obesity Renal Failure: Acute Interval History patient is non oliguric. Renal function continues to improve. Notes were reviewed. Tolerated T piece for 6 hour yesterday. Review of Systems General General Remarks no pain Respiratory Lungs: SOB, Cough Cardiovascular Cardiac: Edema Endocrine Endocrine: Thirst Neuro Neuro Remarks generalized muscle fasciculation Objective Data Data 10/25/16 10/26/16 19:00 07:00 Intake Total 513 ml 812 ml Output Total 550 ml 750 ml Balance -37 ml 62 ml IV Total 104 ml 254 ml Tube Feeding 309 ml 438 ml Other 100 ml 120 ml Output Urine Total 550 ml 750 ml # Bowel Movements 0 0 Vital Signs Date Time Temp Pulse Resp B/P Pulse Ox O2 Delivery O2 Flow Rate FiO2 10/26/16 10:00 85 10/26/16 08:00 82 10/26/16 08:00 98.8 82 136/79 96 10/26/16 07:00 98 Mechanical Ventilator 35 10/26/16 06:00 83 10/26/16 04:00 81 10/26/16 04:00 98.8 81 18 136/81 95 10/26/16 02:59 98 35 10/26/16 02:00 72 10/26/16 00:20 95 35 10/26/16 00:00 87 10/26/16 00:00 98.9 87 16 146/92 97 10/25/16 22:00 90 10/25/16 21:24 99 T-piece 7.00 40 10/25/16 21:24 98 35 10/25/16 20:00 87 10/25/16 20:00 98.6 87 22 146/82 97 10/25/16 19:00 100 T-Piece 40 10/25/16 18:00 97 10/25/16 16:00 98.9 91 147/79 97 10/25/16 16:00 91 10/25/16 14:14 97 T-piece 6.00 40 10/25/16 14:00 97 -: 10/26/16 0357 10/26/16 0357 Tubes & Lines: Cline Tubes & Lines Comment trach, PEG Drip Comment heparin, Physical Exam General Appearance: No Acute Distress, Comfortable, Obese Eyes Eye Exam: Pupils Equal, Pupils Reactive Ears & Nose Ears & Nose Exam: Nosebleed Throat Throat Exam: Oral Mucosa [place] & Moist Neck Neck Exam: Neck Supple Pulmonary Resp Exam: Clear Bilaterally Cardiology CV Exam: Regular, Normal Sinus Rhythm, Good Perfusion Gastrointestinal/Abdomen GI Exam: Soft, Bowel Sounds Present Musculoskeletal MS Exam: Joints Intact, Normal Tone Integumentary Skin Exam: Warm, Dry, Intact Extremeties Extremities Exam: Pedal Pulses Palpable, Trace Edema Neurologic Neuro Exam: Alert, Awake, Oriented, Moving All Extremities Assessment/Plan Discussed Condition With: Patient Assessment Summary: MIKE/Acute Renal Failure, Acute Tubular Necrosis, Fluid/ Volume Overload Problem List: (1) Acute kidney injury Plan: ARF due to ATN vs AIN. Aminoglycoside induced nephrotoxicity a possibility. HD initiated 09/20; she was dialysis dependent, last treatment 10/14 she is in recovery phase, creatinine has been improving today's renal panel in process on BID potassium powder via PEG, monitor urine output, now with cline avoid nephrotoxic substances continue free water with tube feeding (2) ARDS (adult respiratory distress syndrome) Plan: s/p trach placement On CPAP intermittently with T piece Transport Analyst and respiratory 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 (3) Anemia Plan: Hb low but stable on heparin drip and PO protonix GI signed off transfuse PRN (4) Pneumonia Plan: + leukocytosis ID has restarted Ertapenem UA: + kyle, Klebsiella (5) Hypothyroidism Plan: on synthroid (6) DVT (deep venous thrombosis) Plan: bridge to Coumadin with Heparin , follow INR persistently subtherapeutic despite high doses of Coumadin (7) Morbid obesity (8) Hypercalcemia Plan: has improved, monitor for recurrence thought to be due to immobility Problem Qualifiers (1) Pneumonia: Qualified Code: J18.9 - Pneumonia of both lungs due to infectious organism, unspecified part of lung Anshu Tan MD Oct 26, 2016 12:14
--- NOTE | 2016-10-26 12:27 | HHI.PR ---
Subjective Remarks On T Bar 35 % today . Has copious trach secretions. Feels better . Wants to drink liquids. Objective Vital Signs Date Time Temp Pulse Resp B/P Pulse Ox O2 Delivery O2 Flow Rate FiO2 10/26/16 10:00 85 10/26/16 08:00 82 10/26/16 08:00 98.8 82 136/79 96 10/26/16 07:00 98 Mechanical Ventilator 35 10/26/16 06:00 83 10/26/16 04:00 81 10/26/16 04:00 98.8 81 18 136/81 95 10/26/16 02:59 98 35 10/26/16 02:00 72 10/26/16 00:20 95 35 10/26/16 00:00 87 10/26/16 00:00 98.9 87 16 146/92 97 10/25/16 22:00 90 10/25/16 21:24 99 T-piece 7.00 40 10/25/16 21:24 98 35 10/25/16 20:00 87 10/25/16 20:00 98.6 87 22 146/82 97 10/25/16 19:00 100 T-Piece 40 10/25/16 18:00 97 10/25/16 16:00 98.9 91 147/79 97 10/25/16 16:00 91 10/25/16 14:14 97 T-piece 6.00 40 10/25/16 14:00 97 I/O 10/25/16 10/25/16 10/25/16 10/26/16 10/26/16 10/26/16 07:00 15:00 23:00 07:00 15:00 23:00 Intake Total 431 ml 513 ml 812 ml Output Total 600 ml 550 ml 750 ml Balance -169 ml -37 ml 62 ml IV Total 105 ml 104 ml 254 ml Tube Feeding 266 ml 309 ml 438 ml Other 60 ml 100 ml 120 ml Output Urine Total 600 ml 550 ml 750 ml # Bowel Movements 1 0 0 Result Diagram: 10/26/167 10/26/16356 Objective Remarks This is an obese middle-aged white female who is alert HEENT: Head normocephalic.throat clear. Neck: No bruits, no thyroid enlargement, no lymphadenopathy.No JVD Chest: Decreased breath sounds. Few crackles heard. Heart: Heart sounds were regular. S1-S2 no murmur, no S3. Abdomen: Soft, benign. No masses, or tenderness. Bowel sounds are active. Extremities:min edema . Neuro :Moves all limbs. Neuro , no deficits. Awake . Assessment and Plan Assessment and Plan IMPRESSION 1. Acute hypercapnic respiratory failure.Resolving 2. Pulmonary edema. 3. Drug rash 4. Obstructive sleep apnea syndrome 5. Hypertension 6. Hypothyroidism. 7. MIKE Plan : 1. Cont on T Bar 35 % daytime upto 14 hrs 2. Trach toilet and suctioning. 3. Nebs qid , duoneb. 4. Place on CPAP/PSV /, 30 % at HS 5. Add levsin .125 mgqid prn. 6. PT and OT 7. Tube feeds at 50 CC 8. Rehab placement Abimael Beck MD Oct 26, 2016 12:27
[2016-10-26] MEDS ORDERED: WARFARIN SOD 3 MG TAB PO SCH (16:00)
[2016-10-26] MEDS: ERTAPENEM INJ 1,000 MG in SODIUM CHLORIDE 0.9% INJ 100 ML IV SCH (16:57)
[2016-10-26] MEDS: WARFARIN SOD 6 MG TAB PO SCH (16:58)
[2016-10-26] MEDS: HEPARIN-D5W 25,000 U/250 ML 250 ML IV SCH (17:06)
[2016-10-26] MEDS: MORPHINE SULFATE 4 MG/ML INJ IV PRN (20:43)
[2016-10-26] MEDS: MELATONIN 5 MG TAB PO SCH (20:44)
[2016-10-26] MEDS: PRAVASTATIN SOD 20 MG TAB PO SCH (20:44)
[2016-10-27] VITALS (27 sets, daily range): BP systolic 103–172; BP diastolic 63–109; PULSE 76–110; RESP 19–22; TEMP 98.3–98.7; O2SAT 90–100
[2016-10-27] MEDS: RESP: ALBUTEROL 2.5 MG/IPRATROPIUM 0.5 MG NEB (SCH) NEB ×4 (03:51→21:30)
[2016-10-27] MEDS: CHLORHEXIDINE GLUCONATE 2 % 1 PACK (2 CLOTHS) TOP SCH (04:00)
[2016-10-27] MEDS: METOPROLOL TARTRATE 25 MG TAB G-TUBE SCH ×3 (05:38→22:02)
[2016-10-27] MEDS: QUEtiapine FUMARATE 25 MG TAB PO SCH ×3 (05:38→22:02)
[2016-10-27] MEDS: LEVOTHYROXINE SODIUM 200 MCG TAB PO SCH (05:38)
[2016-10-27 06:08] LABS: HEMATOCRIT 24.1 % (35.0-46.0); MEAN CELL VOLUME 86.7 FL (80.0-100.0); MEAN CORPUSCULAR HEMOGLOBIN 27.7 PG (27.0-34.0); MEAN CORPUSCULAR HGB CONC 31.9 % (32.0-36.0); PLATELET COUNT 283 TH/MM3 (150-450); RED BLOOD COUNT 2.78 MIL/MM3 (4.00-5.30); RED CELL DISTRIBUTION WIDTH 19.1 % (11.6-17.2); REVIEW FLAG FINAL; WHITE BLOOD COUNT 11.3 TH/MM3 (4.0-11.0)
[2016-10-27 06:20] LABS: APTT (PATIENT) 61.8 SEC (24.3-30.1); INTERNATIONAL NORMALIZED RATIO 1.3 RATIO; PROTHROMBIN TIME - PATIENT 14.4 SEC (9.8-11.6)
[2016-10-27 06:36] LABS: MAGNESIUM 2.3 MG/DL (1.5-2.5)
[2016-10-27] MEDS: DOCUSATE SODIUM 100 MG/10 ML UDC PO SCH ×2 (09:00→21:00)
[2016-10-27] MEDS: ARTIFICIAL TEARS OPTH SOLN 15 ML BTL EACH EYE SCH ×3 (09:00→17:59)
[2016-10-27] MEDS: SODIUM CHLORIDE 0.9% FLUSH 10 ML FLUSH IV FLUSH SCH ×2 (09:00→21:16)
[2016-10-27] MEDS: POTASSIUM CHLORIDE 20 MEQ PWD PACKET NG SCH ×2 (09:00→21:00)
[2016-10-27] MEDS: FAMOTIDINE 40 MG/5 ML LIQ 50 ML BTL NG SCH ×2 (09:00→21:15)
[2016-10-27] MEDS: EUCERIN CREAM 120 GM JAR TOPICAL SCH ×2 (09:00→21:16)
[2016-10-27] MEDS: BENEPROTEIN POWDER 1 PACK G-TUBE SCH ×3 (09:00→17:59)
[2016-10-27] MEDS: SODIUM CHLORIDE 0.9% FLUSH 10 ML FLUSH IVF SCH (09:00)
--- NOTE | 2016-10-27 09:55 | HHI.NPPN ---
Subjective Complaints: Obesity, Shortness of Breath General Problems: Edema, Hypotension, Obesity Renal Failure: Acute Interval History She is afebrile. Excellent urine output. (Genny Lowery) Review of Systems General General Remarks no pain (Genny Lowery) Respiratory Lungs: SOB, Cough (Genny Lowery) Cardiovascular Cardiac: Edema (Genny Lowery) Endocrine Endocrine: Thirst (Genny Lowery) Neuro Neuro Remarks generalized muscle fasciculation (Genny Lowery) Objective Data Data 10/26/16 10/27/16 19:00 07:00 Intake Total 935 ml 1069 ml Output Total 1100 ml 1150.0 ml Balance -165 ml -81.0 ml Intake Oral 0 ml IV Total 234 ml 369 ml Tube Feeding 601 ml 580 ml Other 100 ml 120 ml Output Urine Total 1100 ml 1150 ml Stool Total 0 ml Tube Feeding Residual Discard 0 ml # Bowel Movements 4 1 Vital Signs Date Time Temp Pulse Resp B/P Pulse Ox O2 Delivery O2 Flow Rate FiO2 10/27/16 09:21 95 T-piece 6.00 40 10/27/16 06:00 84 10/27/16 06:00 84 136/70 93 10/27/16 05:00 97 141/83 93 10/27/16 04:00 98.3 92 19 149/71 99 10/27/16 04:00 92 10/27/16 03:50 99 35 10/27/16 03:00 85 120/63 97 10/27/16 02:00 76 10/27/16 02:00 76 135/69 98 10/27/16 01:16 97 35 10/27/16 01:00 82 103/63 99 10/27/16 00:00 81 113/67 99 10/27/16 00:00 81 10/27/16 00:00 98.3 81 22 113/67 99 10/26/16 23:00 79 104/60 97 10/26/16 22:00 89 10/26/16 22:00 89 131/91 100 10/26/16 21:47 98 35 10/26/16 21:45 100 Bi-Pap 35 10/26/16 21:00 87 147/86 96 10/26/16 20:48 18 10/26/16 20:00 98.4 96 22 162/89 95 10/26/16 20:00 96 10/26/16 20:00 95 T-Piece 7.00 40 Humidified 10/26/16 18:00 97 10/26/16 16:00 98.7 88 18 141/85 96 10/26/16 16:00 88 10/26/16 14:00 84 10/26/16 14:00 92 10/26/16 12:00 99.0 84 126/69 100 10/26/16 12:00 84 10/26/16 10:00 85 (Genny Lowery) -: 10/27/16 0555 10/26/16 0357 Tubes & Lines: Cline Tubes & Lines Comment trach, PEG Drip Comment heparin, (Genny Lowery) Physical Exam General Appearance: No Acute Distress, Comfortable, Obese Appearance Remarks awake, nods head and mouths words able to communicate (Genny Lowery) Eyes Eye Exam: Pupils Equal, Pupils Reactive (Genny Lowery) Ears & Nose Ears & Nose Exam: Nosebleed Ears & Nose Remarks left nare (Genny Lowery) Throat Throat Exam: Oral Mucosa Victor & Moist Throat Remarks trach (Genny Lowery) Neck Neck Exam: Neck Supple Neck Remarks trach (Genny Lowery) Pulmonary Resp Exam: Clear Bilaterally Resp Remarks course throughout thick secretions (Genny Lowery) Cardiology CV Exam: Regular, Normal Sinus Rhythm, Good Perfusion (Genny Lowery) Gastrointestinal/Abdomen GI Exam: Soft, Bowel Sounds Present GI Remarks morbidly obese, + PEG (Genny Lowery) Musculoskeletal MS Exam: Joints Intact, Normal Tone (Genny Lowery) Integumentary Skin Exam: Warm, Dry, Intact (Genyn Lowery) Extremeties Extremities Exam: Pedal Pulses Palpable, Trace Edema (Genny Lowery) Neurologic Neuro Exam: Alert, Awake, Oriented, Moving All Extremities Neuro Remarks unable to speak due to trach (Genny Lowery) Assessment/Plan Discussed Condition With: Patient Assessment Summary: MIKE/Acute Renal Failure, Acute Tubular Necrosis, Fluid/ Volume Overload Problem List: (1) Acute kidney injury Plan: ARF due to ATN vs AIN. Aminoglycoside induced nephrotoxicity a possibility. 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 (3) Anemia Plan: Hb low but stable on heparin drip and PO protonix GI signed off transfuse PRN (4) Pneumonia Plan: afebrile, but has leukocytosis she is on Ertapenem UA: + kyle, Klebsiella sputum culture reviewed ID following (5) Hypothyroidism Plan: on synthroid (6) DVT (deep venous thrombosis) Plan: bridge to Coumadin with Heparin , follow INR persistently subtherapeutic despite high doses of Coumadin (7) Morbid obesity (8) Hypercalcemia Plan: has improved, monitor for recurrence thought to be due to immobility (Genny Lowery) Plan patient was seen and examined. Renal function has improved. We will see her as needed. (Anshu Tan MD) Problem Qualifiers (1) Pneumonia: Qualified Code: J18.9 - Pneumonia of both lungs due to infectious organism, unspecified part of lung Genny Lowery Oct 27, 2016 09:55 Anshu Tan MD Oct 27, 2016 13:52
--- NOTE | 2016-10-27 10:21 | HHI.CCPN ---
Subjective Remarks/Hospital Course 56-year-old morbidly obese female brought in the emergency department in respiratory distress. She was intubated by ER attending. She has been sick for about a week with symptoms consistent with UTI. She's had fevers and chills. She's been short of breath. She's had fatigue. She has had a cough and chest pain with coughing. The family reports that she's been delirious for the last 3 days. 08/15 Patient is sedated with Diprivan, Versed, Fentanyl and intubated. CTA chest showed no PE multifocal consolidation greatest in RLL. Tmax 100.6 08/16 Patient is sedated with Diprivan and Fentanyl. Afebrile. CXR this morning showed increase consolidation. 08/17 Patient remains sedated and intubated. T:100.4 On PRVC/AC RR 18, Tv 500, IT :1.0 PEEP:10, FIO2 75% 08/18 Remains sedated and intubated. Afebrile. CXR this morning unchanged bibasilar infiltrates and effusions. 08/19 Patient was placed on rotoprone bed last night for proning sedated with Diprivan, Versed and Fentnayl in addition she is on Nimbex. On PRVC/AC RR 20, TV 400, IT:1.1, PEEP:14 and FIO2 80%. Afebrile. 08/20 Patient remains sedated and intubated. Remains on PRVC/AC mode with improvements in her oxygenation on FIO2 50% from 80% yesterday and PEEP:12. 08/21 Patient remains sedated and intubated. On PRVC/AC mode with RR 20, TV 400, IT:1.1, PEEP: 12 and FIO2 50%. Afebrile. 08/22 No acute events overnight. Remains sedated, intubated and on Nimbex.. T: 99.8. On PRVC mode with PEP: 12, FIO2 50%. CXR from yesterday showed better aeration, RLL infiltrate unchanged. 08/23 Chest x-ray worsening. Methylprednisolone taper to twice a day by pulmonary. The patient's FiO2 was found to be 100% this a.m., will continue to wean. 08/24: 1 desat episode yesterday when supine. still remains prone now. no vasopressors. sedated and paralyzed. 08/25: flolan added yesterday. fio2 down to 60%. remained supine all night. still on neuromuscular blockade. net -500cc/24h. 08/26: good diuresis. remained supine. fio2 70%. weaning flolan. remains with significant respiratory support and high peep despite 6L diuresis overnight. Cr still stable. 08/27: continues with good diuresis. net negative 3L/24h. fio2 down to 55%. flolan off. still high peep. not ready for SBT. more agitated today. Cr remains stable despite aggressive diuresis. 08/28: diuresis continues. -3.3L/24h. spiked fever overnight with a jump in wbc to 16 this AM. fio2 60%, but her pulmonary improvements have plateaued at this point. still on peep 12. 08/29: net -1.7L/24h. Cr starting to rise. still spiking fevers despite vanc/ cefepime added yesterday. wbc continues to rise. clinically appears infected, although unclear source. peep 10, fio2 60%. will likely need trach. 08/30: net +800cc, but Cr downtrending. appears clinically euvolemic. fever curve downtrending. wbc downtrending. on 40% fio2, peep 8 today. still following commands. 08/31: failed SBT after only 45 minutes yesterday. intubated for > 2 weeks at this point. will attempt to pursue trach/peg today. will continue with pulmonary strengthening. daily SBTs. 09/01 CXR showing increasing bibasilar infiltrate. Failed C Pap trial in 5 minutes due to severe tachypnea. PEG tube today. Family has not decided on trach yet 09/02: Patient febrile to 101.1, CXR increased infiltrate Tmax Tmax 101.1. Currently 9.7 left upper lung and right lower lobe. Pancultured. Cefepime added today and one dose of vancomycin. Continues to fail C Pap trial due to tachypnea and respiratory distress 09/03: Remains hypoxemic on 75% oxygen with new pneumonia. Sputum culture 09/02/16 with GNR. Family agreeable for tracheostomy but patient is not stable at this point for trach 09/04: still on 70% fio2. still hypoxic. pneumonia persists. needs trach, but too unstable at this point. 09/05: remains on 75% fio2. pseudomonas sensitivities came back resistant to carbapenems, intermediate to levaquin. still spiking fevers. not clinically improving. wbc remains elevated. 09/06: Remains on 12 of PEEP and FiO2 75%. Zosyn and tobramycin started yesterday. WBC count trending down today 11.5 from 13.1. Remains heavily sedated for ventilator synchrony. MAXIMUM TEMPERATURE 100.3 09/07: Continues to spike fever. CXR unchanged. WBC count improving. PEEP 14. FiO2 60%. Will start IV Bumex 1mg IV q12 09/09: Tolerating tube feeds at goal. Afebrile. No documented bowel movement. Currently sedated on the ventilator 09/10: Tmax 99.7. Currently 99.4. No bowel movement yesterday. None document since 09/04. Arousable on the ventilator 09/11: Tmax 102.6. Currently 100. Positive BM. Arousable on the ventilator. Tolerating tube feeds. Central line changed yesterday. Plan for bronchoscopy at 1 PM. 09/12: Tmax 100.1. Currently afebrile. Follows commands today. Wiggles toes and give thumbs up appropriately. MRI brain canceled. Tolerating tube feeding with positive BM. Tracheostomy currently planned for . 09/13: Tmax 102. Again on sedation [place] commands by wiggling toes bilaterally and giving thumbs up bilaterally appropriate. Tolerating tube feeding with positive BM. Tracheostomy planned for tomorrow with Dr. Ortega. 09/14: Low grade fever. CXR showing more prominent infiltrate on the right lower lobe and left upper lobe. WBC trending up still in normal range. Patient is on 40% FiO2 but continues to fail CPAP due to tachypnea 09/15: Remains intubated sedated, unable to wean off the vent. Plan for tracheostomy today with Dr. Ortega. Continues to have low grade fever. CXR with persistent bibasilar infiltrates 09/16: Tmax 101.1. Currently 100.7. Awake and alert. Following commands. 09/17: Afebrile. Currently on PSV trial. Tolerating tube feeds. One bowel movement. Noted decreased urine output past 48 hours. Diuretics have been discontinued. This a.m. creatinine currently pending. 09/18: Afebrile. Adequate urine output yesterday but decreased 150 past 8 hours. Tolerating tube feeds. One bowel movement. Not tolerating PSV trials today. 09/19: Tmax 100.5. Urine output picking up. Tolerating tube feeds. No bowel movement 48 hours. Not tolerating PSV trials. 09/20: Diffuse drug morbilliform exanthem noted this a.m. Tmax 100.6. Urine output around 20 cc an hour. Not tolerating PSV trials. Possibly new right pleural effusion noted on chest x-ray. Will need hemodialysis 09/21: Tmax 100.6 currently 98.7. -4 L with hemodialysis yesterday and today. FiO2 to 60%. Tolerating tube feeds. Positive BM. Still requiring sedation 09/22: Afebrile. Tolerating tube feeds. Positive BM. 30 g per kilogram per minute of propofol. Tolerated PSV trials 3 hours today 09/23 HD today with 3.5 L removal. Tolerating CPAP for 8 hours, currently 45% with RSBI 45%. 09/24 Called by RN this morning for concern for bloody BMs. Placed heparin and warfarin on hold. Serial Hgb ordered. Hgb 9.3 -->8.6 and hemodynamically unchanged. Started on protonix drip. Heme stool is negative and now RN states she is concerned about the adequacy of specimen, so sending repeat. Had asked GI to see, however further workup will not be indicated if hemoccult is negative. Tolerating PSV 05/06 09/25: heparin restarted. hemocult negative x 2. 09/26: no changes. still failing cpap trials. 09/27: Tmax 101.5. Currently 99.5. Resting on Diprivan drip at 25 mcg/kg/m. Currently tolerating tube feeding.. One bowel movement. 09/28: Hemoglobin trending downward. Transfusing 1 unit PRBCs with hemodialysis today. Currently afebrile. Appears comfortable ventilator 2 bowel movements 09/29 No events overnight. Sedated with Diprivan and on ventilator via trach. T: 99.9 For Perma Cath placement today. s/p HD yesterday with removal 4L and transfusion 1unit PRBC with HD. 09/30: Tmax 100.8. No events overnight. No bowel movement. Tolerating tube feeds. 10/01: Tmax 101.3. Currently resting in bed in no acute distress. Tolerating tube feeds. Chest x-ray revealed atelectasis. -5 L with hemodialysis yesterday. 10/02 Patient remains on ventilator via trach on PRVC/AC with PEEP: 10 and FIO2 50 %. T: 102.1 at 4 am. 10/03 Patient is off sedation on ventilator via trach. Tmax 101.2 last night. For HD today. 10/04: Tmax 101.5. Currently afebrile. Tolerating PSV trial. Hemodialysis - 4.5 L yesterday. Positive BM. New rash. Received chlorhexidine today. 10/05: Tmax 100. Currently 98.9. Positive BM. Tolerating tube feeds. Less erythematous today. Currently on dialysis 10/06: Tmax 99.9. Currently 99.7. Currently on PSV trial 09/12 @ 45%. Tolerating tube feed. Positive bowel movement 10/07: Tmax 99.8. currently psv 10/8/40%. has not been out of bed in weeks due to critical illness. needs to be mobilized. still no placement plan. 10/08: Tmax 100.4. on t-piece currently. tolerated psv yesterday. have ordered specialty chair and currently awaiting it to arrive. 10/09 Patient remains on ventilator via trach, T:99.9 on no sedation. 10/10 No acute events overnight. For HD today on heparin drip. T:99.8, tolerating tube feeds. 10/11 No events overnight. s/p HD yesterday with removal 3.5L. Tmax 100.5. Tolerating CPAP on PS 10, PEEP: 5 and FIO2 40%. 10/12: Patient receiving hemodialysis today. Tolerating CPAP. Very weakly following commands in all 4 extremities 10/13: 6 hours of T piece yesterday. Currently on TPs and following commands slightly better today. 10/14: No acute events reported overnight. Remains on CPAP on the vent. Getting hemodialysis now 10/15: Tachypneic today 35-38 breath per min, maintaining O2 sat. No fever. CXR unchanged. PS increased to 18. Will check ABG 10/16: Awake and alert, remains on mechanical ventilation via tracheostomy. Daily C Pap trials as tolerated. 10/17: Awake and alert. On mechanical ventilation via tracheostomy. Daily C Pap trials ongoing. 10/18: Tmax 101.8 currently 98.6. Awake and alert on the ventilator. Tolerating tube feeding. Positive BM 2. Patient was pancultured blood sputum and urine overnight 10/17 10/19: Afebrile overnight. Currently sitting in bariatric chair. Some brownish secretions from tracheostomy site. On T piece 10/20: Resting in bed in no acute distress. Tolerating T piece. Positive BM. Interactive 10/21: Afebrile. Tolerating T piece. Resting in bed in no acute distress. Interactive. Positive BM. Tolerate feeds. No bleeding from removed tunneled cuffed hemodialysis catheter 10/22: Afebrile. Tolerating T piece. Resting in bed in no acute distress. Tolerating tube feeds. Subjective 10/23: Sitting up in chair. On T piece at the time of my evaluation. Awake and alert, following commands. 10/24: Resting in bed comfortably on mechanical ventilation via tracheostomy. C Pap/T piece trials ongoing 10/25: Resting in bed comfortably on mechanical ventilation via tracheostomy. On C Pap trial. 10/26: Resting in bed, on mechanical ventilation via tracheostomy. Tolerated T piece for about 6 hours yesterday. 10/27: Sleeping, easily arousable. On mechanical ventilation via tracheostomy. Tolerated T piece for 12 hours at least yesterday. Objective Vital Signs Date Time Temp Pulse Resp B/P Pulse Ox O2 Delivery O2 Flow Rate FiO2 10/27/16 09:21 95 T-piece 6.00 40 10/27/16 06:00 84 10/27/16 06:00 136/70 10/27/16 04:00 98.3 19 Intake and Output 10/26/16 10/26/16 10/27/16 08:00 16:00 00:00 Intake Total 935 ml 579 ml Output Total 1100 ml 650 ml Balance -165 ml -71 ml Result Diagram: 10/27/16 0555 10/26/16 0357 Other Results Microbiology Date/Time Procedure Status Source Growth 10/24/16 19:00 Gram Stain - Final Complete Sputum Endotracheal 10/24/16 19:00 Sputum Culture - Final Complete Pseudomonas Aeruginosa Klebsiella Pneumoniae Esbl Pos Imaging Last Impressions Central Venous Line 10/20/16 0000 Signed Impressions: Service Date/Time: Thursday, October 20, 2016 00:00 - CONCLUSION: Uncomplicated Permcath removal. Didier Zhang MD Chest X-Ray 10/18/16 0600 Signed Impressions: Service Date/Time: Tuesday, October 18, 2016 04:09 - CONCLUSION: Right lung base infiltrate has improved and there is questionable infiltrate left upper lobe with mild prominence of interstitial markings. Danyel Escalante MD Catheter Placement X-Ray 09/29/16 1223 Signed Impressions: Service Date/Time: Thursday, September 29, 2016 12:31 - CONCLUSION: Vas-Cath to PermCath exchange as detailed above. Taco Haas Jr., MD Renal Ultrasound 09/17/16 0000 Signed Impressions: Service Date/Time: Saturday, September 17, 2016 13:31 - CONCLUSION: Negative renal sonogram. Taco Davidson MD Upper Extremity Ultrasound 09/14/16 0000 Signed Impressions: Service Date/Time: August 08:32 - CONCLUSION: There is thrombus within the left subclavian and internal jugular veins. Danyel Escalante MD Lower Extremity Ultrasound 09/13/16 0000 Signed Impressions: Service Date/Time: Tuesday, September 13, 2016 22:33 - CONCLUSION: Normal examination. Leonides Mason MD Liver Ultrasound 09/08/16 0000 Signed Impressions: Service Date/Time: Thursday, September 08, 2016 08:45 - CONCLUSION: 1. Cholelithiasis with distended gallbladder. However, there are no associated findings present to diagnose acute cholecystitis. If there is persistent clinical concern for acute cholecystitis could evaluate for cystic duct obstruction with hepatobiliary scintigraphy. 2. Hepatomegaly with very heterogeneous echotexture and steatosis. Dejan Allison MD Gall Bladder Ultrasound 08/29/16 0000 Signed Impressions: Service Date/Time: Monday, August 29, 2016 15:21 - CONCLUSION: 1. Hepatomegaly with heterogeneous echotexture throughout the liver. 2. There is a large echogenic area near the neck of the gallbladder suggestive of a stone, but despite its large size, demonstrates no acoustic shadowing in any of the views. Taco Davidson MD CT Angiography 08/15/16 0000 Signed Impressions: Service Date/Time: Monday, August 15, 2016 02:33 - CONCLUSION: 1. No evidence for pulmonary embolism. 2. Multifocal consolidation greatest in the right lower lobe and associated adenopathy. Terry Estrada MD Objective Remarks GENERAL: 56 yo female currently on mechanical ventilation via tracheostomy SKIN: Warm and dry. Skin is flaky. Noted stage I to 2 decubitus ulcer\coccyx and back covered with Mepilex HEAD: Normocephalic. Atraumatic EYES: No scleral icterus. No injection or drainage. NECK: Neck is obese. Right subclavian hemodialysis catheters clean dry and intact. Tracheostomy site is clean dry and intact CARDIOVASCULAR: RRR. S1, S2. No S4. Without murmur RESPIRATORY: Diminished breath sounds throughout due to body habitus. GASTROINTESTINAL: Abdomen obese, soft, non-tender, hypoactive active bowel sounds. G-tube is clean dry and intact MUSCULOSKELETAL: 1+ edema BUE. Neuro: Awake, makes eye contact and nods to questions. Following commands moving upper and lower extremity spontaneously, though still very weak. A/P Problem List: (1) ARDS (adult respiratory distress syndrome) ICD Code: J80 Status: Acute (2) CHF (congestive heart failure) ICD Code: I50.9 Status: Acute (3) Respiratory failure ICD Code: J96.90 Status: Acute (4) Pneumonia ICD Code: J18.9 Status: Acute Assessment and Plan Neuro/Psych: Acute toxic metabolic encephalopathy Critical care myopathy Agitated delirium- improving. Minimize sedation Monitor neuro status. Fentanyl allergy On Seroquel 75 mg every 8 hours for agitation Melatonin 5mg po qHS for insomnia Acetaminophen for fever/pain Pulm: Acute on chronic hypercapnic and hypoxemic respiratory failure ARDS- resolved. Pneumonia community-acquired, now with HCAP with carbapenem-resistant pseudomonas and ESBL Klebsiella VAP. 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 T piece as tolerated ICU vent bundle Bronchodilator therapy every 6 hours and albuterol every 2 hours as needed Pulm has followed- Dr. Beck Gen surgery Dr. Ortega s/p s tracheostomy 09/15 Pulm toilet, trach care CV: Hypertension Dyslipidemia Elevated troponin - likely strain On Lopressor 50mg Q8 monitor HR and BP keep MAP>65mmHg As needed labetalol, hydralazine and Nitropaste for hypertension Echo 08/14 showed EF 65-70% mild AR/TR On Pravachol 20 mg a night for dyslipidemia Renal/: Acute kidney injury - requiring hemodialysis Dr. Tan -nephrology following. Hemodialysis Sunday//Sunday currently on hold. Tunneled cuff catheter discontinued 10/20 MIKE: ATN from sepsis syndrome and diminished renal perfusion; also aminoglycoside induced nephrotoxicity likely also contributing; possibly AIN -> per nephrology note Urine eosinophils negative. Renal ultrasound revealed no hydronephrosis Monitor renal function, I/O's, avoid nephrotoxins. Miller placed for accurate I's and O's GI: Elevated transaminases Cholelithiasis On TF Nepro's 45 cc an hour and Beneprotein 2 packs 3 times a day s/p PEG placement 09/01/[address] Ritter Pepcid 10mg BID GI prophylaxis Having BM US liver: Steatosis and cholelithiasis. Repeat 09/08 revealed cholelithiasis with no acute signs of cholecystitis. ID: Pseudomonas pneumonia Funguria, Maribell glabrata and parapsilosis. ID following. Pertinent cultures blood and sputum cx 08/15- NG strep pneumonia and Legionella urinary Ag negative Blood cultures 08/28: NGTD C Diff negative 08/28. Lines changed 08/28. Sputum 08/30 - Pseudomonas Sputum 09/02 PSAE, resistant to carbapenem, intermediate to Levaquin. 09/07 - urine -Maribell Guilliermondii 09/07 - blood cultures 2 - no growth 09/09 - urine -strep viridans, Maribell parapsilosis 09/10 - blood cultures 2 -no growth 09/11 - broch washings -no growth to date 09/12 - urine -Maribell glabrata and parapsilosis 09/16 - blood cultures 2 - pending 09/16 - sputum -no growth 09/16 - urine -Maribell glabrata and parapsilosis 10/02 - blood cultures 2 - staph epi 10/02 - urine - ESBL positive Klebsiella 10/04 - blood cultures 2 -no growth 10/05 - blood cultures 2 -no growth 10/17 - blood cultures -no growth 10/17 - sputum -Klebsiella ESBL positive and Stenotrophomonas maltophilia 10/17 - urine -C glabrata 10/21/ 10/22 - urine - ESBL positive Klebsiella Zosyn previously discontinued secondary to rash Followed by Dr. Uribe. Out of town. Patient asymptomatic. Dr. Eaton recommended Levaquin/ertapenem if fever arises/symptomatic. Dr. Eaton started ertapenem on 10/24 for ESBL positive Klebsiella and urine from 10/22. 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 10/14, pharmacy dosing currently at 12 mg daily. IV Heparin started due to subtherapeutic last PTT PTT on heparin drip currently therapeutic Endo: Diabetes mellitus Hypothyroidism on SSI (medium scale) for glycemic control On Synthroid 200mcg daily. TSH 1.37 GI prophylaxis-Protonix 40mg Q12 DVT - IV heparin until therapeutic on Coumadin Lines: Peripheral IV. - PEG 09/01/16 - Trach 09/15 - Right Permacath placed 09/29 Loree Marinelli, daughter (HCP): [phone] Rony Marinelli, significant other: [phone] Level II Problem Qualifiers (1) CHF (congestive heart failure): Qualified Code: I50.9 - Acute congestive heart failure, unspecified congestive heart failure type (2) Respiratory failure: Qualified Code: J96.02 - Acute respiratory failure with hypercapnia (3) Pneumonia: Qualified Code: J18.9 - Pneumonia of both lungs due to infectious organism, unspecified part of lung Pal Uribe MD Oct 27, 2016 10:21
--- NOTE | 2016-10-27 12:40 | HHI.PR ---
Subjective Remarks On T Bar 35 % all the time . Has less trach secretions. Off dialysis Wants to drink liquids. Objective Vital Signs Date Time Temp Pulse Resp B/P Pulse Ox O2 Delivery O2 Flow Rate FiO2 10/27/16 10:31 81 10/27/16 10:00 97 172/98 90 10/27/16 09:21 95 T-piece 6.00 40 10/27/16 09:00 95 134/73 100 10/27/16 08:00 98.5 84 114/86 96 10/27/16 07:00 79 128/78 97 10/27/16 07:00 95 Nasal Cannula 5.00 10/27/16 06:00 84 10/27/16 06:00 84 136/70 93 10/27/16 06:00 84 136/70 93 10/27/16 05:00 97 141/83 93 10/27/16 05:00 97 141/83 93 10/27/16 04:00 98.3 92 19 149/71 99 10/27/16 04:00 92 149/71 99 10/27/16 04:00 92 10/27/16 03:50 99 35 10/27/16 03:00 85 120/63 97 10/27/16 03:00 85 120/63 97 10/27/16 02:00 76 135/69 98 10/27/16 02:00 76 10/27/16 02:00 76 135/69 98 10/27/16 01:16 97 35 10/27/16 01:00 82 103/63 99 10/27/16 01:00 82 103/63 99 10/27/16 00:00 81 113/67 99 10/27/16 00:00 81 113/67 99 10/27/16 00:00 81 10/27/16 00:00 98.3 81 22 113/67 99 10/26/16 23:00 79 104/60 97 10/26/16 22:00 89 10/26/16 22:00 89 131/91 100 10/26/16 21:47 98 35 10/26/16 21:45 100 Bi-Pap 35 10/26/16 21:00 87 147/86 96 10/26/16 20:48 18 10/26/16 20:00 98.4 96 22 162/89 95 10/26/16 20:00 96 10/26/16 20:00 95 T-Piece 7.00 40 Humidified 10/26/16 18:00 97 10/26/16 16:00 98.7 88 18 141/85 96 10/26/16 16:00 88 10/26/16 14:00 84 10/26/16 14:00 92 I/O 10/26/16 10/26/16 10/26/16 10/27/16 10/27/16 10/27/16 07:00 15:00 23:00 07:00 15:00 23:00 Intake Total 812 ml 935 ml 579 ml 490 ml Output Total 750 ml 1100 ml 650 ml 500 ml 0 ml Balance 62 ml -165 ml -71 ml -10 ml 0 ml Intake Oral 0 ml IV Total 254 ml 234 ml 226 ml 143 ml Tube Feeding 438 ml 601 ml 293 ml 287 ml Other 120 ml 100 ml 60 ml 60 ml Output Urine Total 750 ml 1100 ml 650 ml 500 ml Stool Total 0 ml Tube Feeding Residual Discard 0 ml 0 ml 0 ml # Bowel Movements 0 4 1 Result Diagram: 10/27/16 0555 10/26/16 0357 Objective Remarks This is an obese middle-aged white female who is alert HEENT: Head normocephalic.throat clear. Neck: No bruits, no thyroid enlargement, no lymphadenopathy.No JVD Chest: Decreased breath sounds. Few wheezes. Heart: Heart sounds were regular. S1-S2 no murmur, no S3. Abdomen: Soft, benign. No masses, or tenderness. Bowel sounds are active. Extremities:min edema . Neuro :Moves all limbs.no deficits.Alert and talking. Assessment and Plan Assessment and Plan IMPRESSION 1. Acute hypercapnic respiratory failure.Resolving 2. Pulmonary edema. 3. Drug rash 4. Obstructive sleep apnea syndrome 5. Hypertension 6. Hypothyroidism. 7. MIKE Plan : 1. Cont on T Bar 35 % all the time 2. Trach toilet and suctioning. 3. Nebs qid , duoneb. 4. Transfer to floor with tele 5. Cont levsin .125 mg qid prn. 6. PT and OT 7. Tube feeds at 50 CC 8. Rehab placement Abimael Beck MD Oct 27, 2016 12:40
[2016-10-27 15:22] LABS: BICARBONATE 27.2 MEQ/L (21.0-32.0); POTASSIUM 3.9 MEQ/L (3.5-5.1)
[2016-10-27] MEDS ORDERED: WARFARIN SOD 3 MG TAB PO SCH (16:00)
[2016-10-27] MEDS: ERTAPENEM INJ 1,000 MG in SODIUM CHLORIDE 0.9% INJ 100 ML IV SCH (17:00)
[2016-10-27] MEDS: WARFARIN SOD 6 MG TAB PO SCH (17:59)
[2016-10-27] MEDS: PRAVASTATIN SOD 20 MG TAB PO SCH (21:16)
[2016-10-27] MEDS: MELATONIN 5 MG TAB PO SCH (21:16)
[2016-10-28] VITALS (26 sets, daily range): BP systolic 111–201; BP diastolic 58–105; PULSE 82–102; RESP 20–22; TEMP 98.5–99.4; O2SAT 92–100
[2016-10-28] MEDS: CHLORHEXIDINE GLUCONATE 2 % 1 PACK (2 CLOTHS) TOP SCH ×2 (03:50→21:18)
[2016-10-28] MEDS: HEPARIN-D5W 25,000 U/250 ML 250 ML IV SCH ×2 (03:50→18:53)
[2016-10-28 04:28] LABS: APTT (PATIENT) 65.1 SEC (24.3-30.1); INTERNATIONAL NORMALIZED RATIO 1.4 RATIO; PROTHROMBIN TIME - PATIENT 15.9 SEC (9.8-11.6)
[2016-10-28 04:37] LABS: MAGNESIUM 2.2 MG/DL (1.5-2.5)
[2016-10-28] MEDS: RESP: ALBUTEROL 2.5 MG/IPRATROPIUM 0.5 MG NEB (SCH) NEB ×4 (05:04→21:39)
[2016-10-28] MEDS: LEVOTHYROXINE SODIUM 200 MCG TAB PO SCH (06:25)
[2016-10-28] MEDS: QUEtiapine FUMARATE 25 MG TAB PO SCH ×3 (06:25→21:18)
[2016-10-28] MEDS: METOPROLOL TARTRATE 25 MG TAB G-TUBE SCH ×3 (06:25→21:18)
[2016-10-28] MEDS: BENEPROTEIN POWDER 1 PACK G-TUBE SCH ×3 (09:00→16:59)
[2016-10-28] MEDS: DOCUSATE SODIUM 100 MG/10 ML UDC PO SCH ×2 (09:00→20:05)
[2016-10-28] MEDS: POTASSIUM CHLORIDE 20 MEQ PWD PACKET NG SCH ×2 (09:00→20:04)
[2016-10-28] MEDS: ARTIFICIAL TEARS OPTH SOLN 15 ML BTL EACH EYE SCH ×3 (09:45→16:59)
[2016-10-28] MEDS: FAMOTIDINE 40 MG/5 ML LIQ 50 ML BTL NG SCH ×2 (09:45→20:04)
[2016-10-28] MEDS: EUCERIN CREAM 120 GM JAR TOPICAL SCH ×2 (09:46→20:07)
[2016-10-28] MEDS: SODIUM CHLORIDE 0.9% FLUSH 10 ML FLUSH IVF SCH (09:47)
[2016-10-28] MEDS: SODIUM CHLORIDE 0.9% FLUSH 10 ML FLUSH IV FLUSH SCH ×2 (09:47→20:04)
--- NOTE | 2016-10-28 10:31 | HHI.CCPN ---
Subjective Remarks/Hospital Course 56-year-old morbidly obese female brought in the emergency department in respiratory distress. She was intubated by ER attending. She has been sick for about a week with symptoms consistent with UTI. She's had fevers and chills. She's been short of breath. She's had fatigue. She has had a cough and chest pain with coughing. The family reports that she's been delirious for the last 3 days. 08/15 Patient is sedated with Diprivan, Versed, Fentanyl and intubated. CTA chest showed no PE multifocal consolidation greatest in RLL. Tmax 100.6 08/16 Patient is sedated with Diprivan and Fentanyl. Afebrile. CXR this morning showed increase consolidation. 08/17 Patient remains sedated and intubated. T:100.4 On PRVC/AC RR 18, Tv 500, IT :1.0 PEEP:10, FIO2 75% 08/18 Remains sedated and intubated. Afebrile. CXR this morning unchanged bibasilar infiltrates and effusions. 08/19 Patient was placed on rotoprone bed last night for proning sedated with Diprivan, Versed and Fentnayl in addition she is on Nimbex. On PRVC/AC RR 20, TV 400, IT:1.1, PEEP:14 and FIO2 80%. Afebrile. 08/20 Patient remains sedated and intubated. Remains on PRVC/AC mode with improvements in her oxygenation on FIO2 50% from 80% yesterday and PEEP:12. 08/21 Patient remains sedated and intubated. On PRVC/AC mode with RR 20, TV 400, IT:1.1, PEEP: 12 and FIO2 50%. Afebrile. 08/22 No acute events overnight. Remains sedated, intubated and on Nimbex.. T: 99.8. On PRVC mode with PEP: 12, FIO2 50%. CXR from yesterday showed better aeration, RLL infiltrate unchanged. 08/23 Chest x-ray worsening. Methylprednisolone taper to twice a day by pulmonary. The patient's FiO2 was found to be 100% this a.m., will continue to wean. 08/24: 1 desat episode yesterday when supine. still remains prone now. no vasopressors. sedated and paralyzed. 08/25: flolan added yesterday. fio2 down to 60%. remained supine all night. still on neuromuscular blockade. net -500cc/24h. 08/26: good diuresis. remained supine. fio2 70%. weaning flolan. remains with significant respiratory support and high peep despite 6L diuresis overnight. Cr still stable. 08/27: continues with good diuresis. net negative 3L/24h. fio2 down to 55%. flolan off. still high peep. not ready for SBT. more agitated today. Cr remains stable despite aggressive diuresis. 08/28: diuresis continues. -3.3L/24h. spiked fever overnight with a jump in wbc to 16 this AM. fio2 60%, but her pulmonary improvements have plateaued at this point. still on peep 12. 08/29: net -1.7L/24h. Cr starting to rise. still spiking fevers despite vanc/ cefepime added yesterday. wbc continues to rise. clinically appears infected, although unclear source. peep 10, fio2 60%. will likely need trach. 08/30: net +800cc, but Cr downtrending. appears clinically euvolemic. fever curve downtrending. wbc downtrending. on 40% fio2, peep 8 today. still following commands. 08/31: failed SBT after only 45 minutes yesterday. intubated for > 2 weeks at this point. will attempt to pursue trach/peg today. will continue with pulmonary strengthening. daily SBTs. 09/01 CXR showing increasing bibasilar infiltrate. Failed C Pap trial in 5 minutes due to severe tachypnea. PEG tube today. Family has not decided on trach yet 09/02: Patient febrile to 101.1, CXR increased infiltrate Tmax Tmax 101.1. Currently 9.7 left upper lung and right lower lobe. Pancultured. Cefepime added today and one dose of vancomycin. Continues to fail C Pap trial due to tachypnea and respiratory distress 09/03: Remains hypoxemic on 75% oxygen with new pneumonia. Sputum culture 09/02/16 with GNR. Family agreeable for tracheostomy but patient is not stable at this point for trach 09/04: still on 70% fio2. still hypoxic. pneumonia persists. needs trach, but too unstable at this point. 09/05: remains on 75% fio2. pseudomonas sensitivities came back resistant to carbapenems, intermediate to levaquin. still spiking fevers. not clinically improving. wbc remains elevated. 09/06: Remains on 12 of PEEP and FiO2 75%. Zosyn and tobramycin started yesterday. WBC count trending down today 11.5 from 13.1. Remains heavily sedated for ventilator synchrony. MAXIMUM TEMPERATURE 100.3 09/07: Continues to spike fever. CXR unchanged. WBC count improving. PEEP 14. FiO2 60%. Will start IV Bumex 1mg IV q12 09/09: Tolerating tube feeds at goal. Afebrile. No documented bowel movement. Currently sedated on the ventilator 09/10: Tmax 99.7. Currently 99.4. No bowel movement yesterday. None document since 09/04. Arousable on the ventilator 09/11: Tmax 102.6. Currently 100. Positive BM. Arousable on the ventilator. Tolerating tube feeds. Central line changed yesterday. Plan for bronchoscopy at 1 PM. 09/12: Tmax 100.1. Currently afebrile. Follows commands today. Wiggles toes and give thumbs up appropriately. MRI brain canceled. Tolerating tube feeding with positive BM. Tracheostomy currently planned for . 09/13: Tmax 102. Again on sedation [place] commands by wiggling toes bilaterally and giving thumbs up bilaterally appropriate. Tolerating tube feeding with positive BM. Tracheostomy planned for tomorrow with Dr. Ortega. 09/14: Low grade fever. CXR showing more prominent infiltrate on the right lower lobe and left upper lobe. WBC trending up still in normal range. Patient is on 40% FiO2 but continues to fail CPAP due to tachypnea 09/15: Remains intubated sedated, unable to wean off the vent. Plan for tracheostomy today with Dr. Ortega. Continues to have low grade fever. CXR with persistent bibasilar infiltrates 09/16: Tmax 101.1. Currently 100.7. Awake and alert. Following commands. 09/17: Afebrile. Currently on PSV trial. Tolerating tube feeds. One bowel movement. Noted decreased urine output past 48 hours. Diuretics have been discontinued. This a.m. creatinine currently pending. 09/18: Afebrile. Adequate urine output yesterday but decreased 150 past 8 hours. Tolerating tube feeds. One bowel movement. Not tolerating PSV trials today. 09/19: Tmax 100.5. Urine output picking up. Tolerating tube feeds. No bowel movement 48 hours. Not tolerating PSV trials. 09/20: Diffuse drug morbilliform exanthem noted this a.m. Tmax 100.6. Urine output around 20 cc an hour. Not tolerating PSV trials. Possibly new right pleural effusion noted on chest x-ray. Will need hemodialysis 09/21: Tmax 100.6 currently 98.7. -4 L with hemodialysis yesterday and today. FiO2 to 60%. Tolerating tube feeds. Positive BM. Still requiring sedation 09/22: Afebrile. Tolerating tube feeds. Positive BM. 30 g per kilogram per minute of propofol. Tolerated PSV trials 3 hours today 09/23 HD today with 3.5 L removal. Tolerating CPAP for 8 hours, currently 45% with RSBI 45%. 09/24 Called by RN this morning for concern for bloody BMs. Placed heparin and warfarin on hold. Serial Hgb ordered. Hgb 9.3 -->8.6 and hemodynamically unchanged. Started on protonix drip. Heme stool is negative and now RN states she is concerned about the adequacy of specimen, so sending repeat. Had asked GI to see, however further workup will not be indicated if hemoccult is negative. Tolerating PSV 05/06 09/25: heparin restarted. hemocult negative x 2. 09/26: no changes. still failing cpap trials. 09/27: Tmax 101.5. Currently 99.5. Resting on Diprivan drip at 25 mcg/kg/m. Currently tolerating tube feeding.. One bowel movement. 09/28: Hemoglobin trending downward. Transfusing 1 unit PRBCs with hemodialysis today. Currently afebrile. Appears comfortable ventilator 2 bowel movements 09/29 No events overnight. Sedated with Diprivan and on ventilator via trach. T: 99.9 For Perma Cath placement today. s/p HD yesterday with removal 4L and transfusion 1unit PRBC with HD. 09/30: Tmax 100.8. No events overnight. No bowel movement. Tolerating tube feeds. 10/01: Tmax 101.3. Currently resting in bed in no acute distress. Tolerating tube feeds. Chest x-ray revealed atelectasis. -5 L with hemodialysis yesterday. 10/02 Patient remains on ventilator via trach on PRVC/AC with PEEP: 10 and FIO2 50 %. T: 102.1 at 4 am. 10/03 Patient is off sedation on ventilator via trach. Tmax 101.2 last night. For HD today. 10/04: Tmax 101.5. Currently afebrile. Tolerating PSV trial. Hemodialysis - 4.5 L yesterday. Positive BM. New rash. Received chlorhexidine today. 10/05: Tmax 100. Currently 98.9. Positive BM. Tolerating tube feeds. Less erythematous today. Currently on dialysis 10/06: Tmax 99.9. Currently 99.7. Currently on PSV trial 09/12 @ 45%. Tolerating tube feed. Positive bowel movement 10/07: Tmax 99.8. currently psv 10/8/40%. has not been out of bed in weeks due to critical illness. needs to be mobilized. still no placement plan. 10/08: Tmax 100.4. on t-piece currently. tolerated psv yesterday. have ordered specialty chair and currently awaiting it to arrive. 10/09 Patient remains on ventilator via trach, T:99.9 on no sedation. 10/10 No acute events overnight. For HD today on heparin drip. T:99.8, tolerating tube feeds. 10/11 No events overnight. s/p HD yesterday with removal 3.5L. Tmax 100.5. Tolerating CPAP on PS 10, PEEP: 5 and FIO2 40%. 10/12: Patient receiving hemodialysis today. Tolerating CPAP. Very weakly following commands in all 4 extremities 10/13: 6 hours of T piece yesterday. Currently on TPs and following commands slightly better today. 10/14: No acute events reported overnight. Remains on CPAP on the vent. Getting hemodialysis now 10/15: Tachypneic today 35-38 breath per min, maintaining O2 sat. No fever. CXR unchanged. PS increased to 18. Will check ABG 10/16: Awake and alert, remains on mechanical ventilation via tracheostomy. Daily C Pap trials as tolerated. 10/17: Awake and alert. On mechanical ventilation via tracheostomy. Daily C Pap trials ongoing. 10/18: Tmax 101.8 currently 98.6. Awake and alert on the ventilator. Tolerating tube feeding. Positive BM 2. Patient was pancultured blood sputum and urine overnight 10/17 10/19: Afebrile overnight. Currently sitting in bariatric chair. Some brownish secretions from tracheostomy site. On T piece 10/20: Resting in bed in no acute distress. Tolerating T piece. Positive BM. Interactive 10/21: Afebrile. Tolerating T piece. Resting in bed in no acute distress. Interactive. Positive BM. Tolerate feeds. No bleeding from removed tunneled cuffed hemodialysis catheter 10/22: Afebrile. Tolerating T piece. Resting in bed in no acute distress. Tolerating tube feeds. Subjective 10/23: Sitting up in chair. On T piece at the time of my evaluation. Awake and alert, following commands. 10/24: Resting in bed comfortably on mechanical ventilation via tracheostomy. C Pap/T piece trials ongoing 10/25: Resting in bed comfortably on mechanical ventilation via tracheostomy. On C Pap trial. 10/26: Resting in bed, on mechanical ventilation via tracheostomy. Tolerated T piece for about 6 hours yesterday. 10/27: Sleeping, easily arousable. On mechanical ventilation via tracheostomy. Tolerated T piece for 12 hours at least yesterday. 10/28: Off mechanical ventilation on trach collar since yesterday. Appears comfortable. Wishes to drink liquids. Objective Vital Signs Date Time Temp Pulse Resp B/P Pulse Ox O2 Delivery O2 Flow Rate FiO2 10/28/16 09:10 98 Trach Collar 28 10/28/16 06:00 102 10/28/16 06:00 144/73 10/28/16 04:00 98.5 22 10/28/16 00:45 6.00 Intake and Output 10/27/16 10/27/16 10/28/16 08:00 16:00 00:00 Intake Total 490 ml 531 ml 1096 ml Output Total 500.0 ml 550 ml 1550.0 ml Balance -10.0 ml -19 ml -454.0 ml Result Diagram: 10/27/16 0555 10/27/16 0555 Imaging Last Impressions Central Venous Line 10/20/16 0000 Signed Impressions: Service Date/Time: Thursday, October 20, 2016 00:00 - CONCLUSION: Uncomplicated Permcath removal. Didier Zhang MD Chest X-Ray 10/18/16 0600 Signed Impressions: Service Date/Time: Tuesday, October 18, 2016 04:09 - CONCLUSION: Right lung base infiltrate has improved and there is questionable infiltrate left upper lobe with mild prominence of interstitial markings. Danyel Escalante MD Catheter Placement X-Ray 09/29/16 1223 Signed Impressions: Service Date/Time: Thursday, September 29, 2016 12:31 - CONCLUSION: Vas-Cath to PermCath exchange as detailed above. Taco Haas Jr., MD Renal Ultrasound 09/17/16 0000 Signed Impressions: Service Date/Time: Saturday, September 17, 2016 13:31 - CONCLUSION: Negative renal sonogram. Taco Davidson MD Upper Extremity Ultrasound 09/14/16 0000 Signed Impressions: Service Date/Time: August 08:32 - CONCLUSION: There is thrombus within the left subclavian and internal jugular veins. Danyel Escalante MD Lower Extremity Ultrasound 09/13/16 0000 Signed Impressions: Service Date/Time: Tuesday, September 13, 2016 22:33 - CONCLUSION: Normal examination. Leonides Mason MD Liver Ultrasound 09/08/16 0000 Signed Impressions: Service Date/Time: Thursday, September 08, 2016 08:45 - CONCLUSION: 1. Cholelithiasis with distended gallbladder. However, there are no associated findings present to diagnose acute cholecystitis. If there is persistent clinical concern for acute cholecystitis could evaluate for cystic duct obstruction with hepatobiliary scintigraphy. 2. Hepatomegaly with very heterogeneous echotexture and steatosis. Dejan Allison MD Gall Bladder Ultrasound 08/29/16 0000 Signed Impressions: Service Date/Time: Monday, August 29, 2016 15:21 - CONCLUSION: 1. Hepatomegaly with heterogeneous echotexture throughout the liver. 2. There is a large echogenic area near the neck of the gallbladder suggestive of a stone, but despite its large size, demonstrates no acoustic shadowing in any of the views. Taco Davidson MD CT Angiography 08/15/16 0000 Signed Impressions: Service Date/Time: Monday, August 15, 2016 02:33 - CONCLUSION: 1. No evidence for pulmonary embolism. 2. Multifocal consolidation greatest in the right lower lobe and associated adenopathy. Terry Estrada MD Objective Remarks GENERAL: 56 yo female currently on mechanical ventilation via tracheostomy SKIN: Warm and dry. Skin is flaky. Noted stage I to 2 decubitus ulcer\coccyx and back covered with Mepilex HEAD: Normocephalic. Atraumatic EYES: No scleral icterus. No injection or drainage. NECK: Neck is obese. Right subclavian hemodialysis catheters clean dry and intact. Tracheostomy site is clean dry and intact CARDIOVASCULAR: RRR. S1, S2. No S4. Without murmur RESPIRATORY: Diminished breath sounds throughout due to body habitus. GASTROINTESTINAL: Abdomen obese, soft, non-tender, hypoactive active bowel sounds. G-tube is clean dry and intact MUSCULOSKELETAL: 1+ edema BUE. Neuro: Awake alert oriented 3,. Following commands moving upper and lower extremity spontaneously, though still weak. A/P Problem List: (1) ARDS (adult respiratory distress syndrome) ICD Code: J80 Status: Acute (2) CHF (congestive heart failure) ICD Code: I50.9 Status: Acute (3) Respiratory failure ICD Code: J96.90 Status: Acute (4) Pneumonia ICD Code: J18.9 Status: Acute Assessment and Plan Neuro/Psych: Acute toxic metabolic encephalopathy Critical care myopathy Agitated delirium- improving. Minimize sedation Monitor neuro status. Fentanyl allergy On Seroquel 75 mg every 8 hours for agitation Melatonin 5mg po qHS for insomnia Acetaminophen for fever/pain Pulm: Acute on chronic hypercapnic and hypoxemic respiratory failure ARDS- resolved. Pneumonia community-acquired, now with HCAP with carbapenem-resistant pseudomonas and ESBL Klebsiella VAP. 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 T piece as tolerated ICU vent bundle Bronchodilator therapy every 6 hours and albuterol every 2 hours as needed Pulm has followed- Dr. Beck Gen surgery Dr. Ortega s/p s tracheostomy 09/15 Pulm toilet, trach care CV: Hypertension Dyslipidemia Elevated troponin - likely strain On Lopressor 50mg Q8 monitor HR and BP keep MAP>65mmHg As needed labetalol, hydralazine and Nitropaste for hypertension Echo 08/14 showed EF 65-70% mild AR/TR On Pravachol 20 mg a night for dyslipidemia Renal/: Acute kidney injury - requiring hemodialysis Dr. Tan -nephrology following. Hemodialysis Sunday//Sunday currently on hold. Tunneled cuff catheter discontinued 10/20 MIKE: ATN from sepsis syndrome and diminished renal perfusion; also aminoglycoside induced nephrotoxicity likely also contributing; possibly AIN -> per nephrology note Urine eosinophils negative. Renal ultrasound revealed no hydronephrosis Monitor renal function, I/O's, avoid nephrotoxins. Miller placed for accurate I's and O's GI: Elevated transaminases Cholelithiasis On TF Nepro's 45 cc an hour and Beneprotein 2 packs 3 times a day s/p PEG placement 09/01/[address] Garcia Pepcid 10mg BID GI prophylaxis Having BM US liver: Steatosis and cholelithiasis. Repeat 09/08 revealed cholelithiasis with no acute signs of cholecystitis. ID: Pseudomonas pneumonia Funguria, Maribell glabrata and parapsilosis. ID following. Pertinent cultures blood and sputum cx 08/15- NG strep pneumonia and Legionella urinary Ag negative Blood cultures 08/28: NGTD C Diff negative 08/28. Lines changed 08/28. Sputum 08/30 - Pseudomonas Sputum 09/02 PSAE, resistant to carbapenem, intermediate to Levaquin. 09/07 - urine -Maribell Guilliermondii 09/07 - blood cultures 2 - no growth 09/09 - urine -strep viridans, Maribell parapsilosis 09/10 - blood cultures 2 -no growth 09/11 - broch washings -no growth to date 09/12 - urine -Maribell glabrata and parapsilosis 09/16 - blood cultures 2 - pending 09/16 - sputum -no growth 09/16 - urine -Maribell glabrata and parapsilosis 10/02 - blood cultures 2 - staph epi 10/02 - urine - ESBL positive Klebsiella 10/04 - blood cultures 2 -no growth 10/05 - blood cultures 2 -no growth 10/17 - blood cultures -no growth 10/17 - sputum -Klebsiella ESBL positive and Stenotrophomonas maltophilia 10/17 - urine -C glabrata 10/21/ 10/22 - urine - ESBL positive Klebsiella Zosyn previously discontinued secondary to rash Followed by Dr. Uribe. Patient asymptomatic. Dr. Eaton recommended Levaquin/ertapenem if fever arises/symptomatic. Dr. Eaton started ertapenem on 10/24 for ESBL positive Klebsiella and urine from 10/22. 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 10/14, pharmacy dosing currently at 12 mg daily. IV Heparin started due to subtherapeutic last PTT PTT on heparin drip currently therapeutic. Coumadin per pharmacy dosing. Endo: Diabetes mellitus Hypothyroidism on SSI (medium scale) for glycemic control On Synthroid 200mcg daily. TSH 1.37 GI prophylaxis-Protonix 40mg Q12 DVT - IV heparin until therapeutic on Coumadin Lines: Peripheral IV. - PEG 09/01/16 - Trach 09/15 - Right Permacath placed 09/29 Loree Marinelli, daughter (HCP): [phone] Rony Marinelli, significant other: [phone] We'll consult and transfer to hospitalist service for further medical management. Being followed by pulmonary. If she remains off mechanical ventilation over the weekend may transfer to [facility]/ stepdown. Level II Problem Qualifiers (1) CHF (congestive heart failure): Qualified Code: I50.9 - Acute congestive heart failure, unspecified congestive heart failure type (2) Respiratory failure: Qualified Code: J96.02 - Acute respiratory failure with hypercapnia (3) Pneumonia: Qualified Code: J18.9 - Pneumonia of both lungs due to infectious organism, unspecified part of lung Pal Uribe MD Oct 28, 2016 10:31
--- NOTE | 2016-10-28 13:52 | HHI.PR ---
Subjective Remarks On T Bar 35 % all the time . Has less trach secretions. On tube feeds. Wants to drink liquids. Objective Vital Signs Date Time Temp Pulse Resp B/P Pulse Ox O2 Delivery O2 Flow Rate FiO2 10/28/16 13:00 91 136/70 98 10/28/16 12:00 99.4 97 171/96 97 10/28/16 11:00 97 159/92 93 10/28/16 10:00 93 144/88 98 10/28/16 09:10 98 Trach Collar 28 10/28/16 09:00 92 137/89 99 10/28/16 08:00 98.8 87 134/77 97 10/28/16 06:00 102 10/28/16 06:00 102 144/73 92 10/28/16 05:00 87 152/84 99 10/28/16 04:00 98.5 88 22 156/85 97 10/28/16 04:00 88 10/28/16 03:00 91 165/90 93 10/28/16 02:00 87 10/28/16 02:00 87 133/95 100 10/28/16 01:00 88 135/82 97 10/28/16 00:45 96 Trach Collar 6.00 28 10/28/16 00:00 98.5 90 20 128/71 97 10/28/16 00:00 90 10/27/16 23:00 79 135/86 98 10/27/16 23:00 92 Trach Collar 28 10/27/16 22:00 90 139/83 100 10/27/16 22:00 90 10/27/16 21:30 98 Trach Collar 8.00 40 10/27/16 21:00 92 160/77 99 10/27/16 20:30 Trach Collar 40 10/27/16 20:00 93 10/27/16 20:00 98.6 93 22 151/90 98 10/27/16 20:00 98 T-Piece 40 Humidified 10/27/16 18:00 85 10/27/16 16:00 98.7 101 155/85 90 10/27/16 16:00 83 10/27/16 15:00 110 163/95 90 10/27/16 14:00 103 168/109 94 10/27/16 14:00 82 I/O 6/2/17 6/2/10/27/16 10/28/16 10/28/16 10/28/16 07:00 15:00 23:00 07:00 15:00 23:00 Intake Total 490 ml 531 ml 1096 ml 503 ml Output Total 500 ml 550 ml 1550.0 ml 550 ml Balance -10 ml -19 ml -454.0 ml -47 ml Intake Oral 0 ml IV Total 143 ml 111 ml 308 ml 117 ml Tube Feeding 287 ml 320 ml 728 ml 326 ml Other 60 ml 100 ml 60 ml 60 ml Output Urine Total 500 ml 550 ml 1550 ml 550 ml Tube Feeding Residual Discard 0 ml 0 ml 0 ml 0 ml # Bowel Movements 1 0 2 1 Result Diagram: 10/27/16 0555 10/27/16554 Objective Remarks This is an obese middle-aged white female who is alert HEENT: Head normocephalic.throat clear.Trach is In . Neck: No bruits, no thyroid enlargement, no lymphadenopathy.No JVD Chest: Decreased breath sounds. Few wheezes. basal crackles Heart: Heart sounds were regular. S1-S2 no murmur, no S3. Abdomen: Soft, benign. No masses, or tenderness. Bowel sounds are active. Extremities:min edema . Neuro :Moves all limbs.no deficits. Alert and talking. Assessment and Plan Assessment and Plan IMPRESSION 1. Acute hypercapnic respiratory failure.Resolving 2. Pulmonary edema. 3. Drug rash 4. Obstructive sleep apnea syndrome 5. Hypertension 6. Hypothyroidism. 7. MIKE Plan : 1. Cont on T Bar 28 % all the time 2. Trach toilet and suctioning. 3. Nebs qid , duoneb. 4. Transfer to floor with tele 5. Use PM valve to talk. 6. PT and OT 7. Tube feeds at 50 CC 8. CBC ,BMP in am Abimael Beck MD Oct 28, 2016 13:51
[2016-10-28] MEDS ORDERED: WARFARIN SOD 3 MG TAB PO ONE (16:00)
[2016-10-28] MEDS: ERTAPENEM INJ 1,000 MG in SODIUM CHLORIDE 0.9% INJ 100 ML IV SCH (16:58)
[2016-10-28] MEDS: WARFARIN SOD 6 MG TAB PO SCH (16:59)
[2016-10-28] MEDS: MELATONIN 5 MG TAB PO SCH (20:05)
[2016-10-28] MEDS: PRAVASTATIN SOD 20 MG TAB PO SCH (20:05)
[2016-10-28] MEDS: MORPHINE SULFATE 4 MG/ML INJ IV PRN (21:28)
[2016-10-29] VITALS (28 sets, daily range): BP systolic 107–202; BP diastolic 56–113; PULSE 79–104; RESP 7–69; TEMP 97.7–98.9; O2SAT 93–100
[2016-10-29] MEDS: RESP: ALBUTEROL 2.5 MG/IPRATROPIUM 0.5 MG NEB (SCH) NEB ×2 (04:14→09:17)
[2016-10-29] MEDS: LEVOTHYROXINE SODIUM 200 MCG TAB PO SCH (05:36)
[2016-10-29] MEDS: MORPHINE SULFATE 4 MG/ML INJ IV PRN ×2 (05:36→21:02)
[2016-10-29] MEDS: METOPROLOL TARTRATE 25 MG TAB G-TUBE SCH ×3 (05:36→21:02)
[2016-10-29] MEDS: QUEtiapine FUMARATE 25 MG TAB PO SCH ×3 (05:37→21:03)
[2016-10-29 06:29] LABS: HEMATOCRIT 25.1 % (35.0-46.0); MEAN CELL VOLUME 85.7 FL (80.0-100.0); MEAN CORPUSCULAR HGB CONC 32.7 % (32.0-36.0); PLATELET COUNT 316 TH/MM3 (150-450); RED BLOOD COUNT 2.93 MIL/MM3 (4.00-5.30); RED CELL DISTRIBUTION WIDTH 19.2 % (11.6-17.2); REVIEW FLAG FINAL; WHITE BLOOD COUNT 13.7 TH/MM3 (4.0-11.0)
[2016-10-29 06:45] LABS: INTERNATIONAL NORMALIZED RATIO 1.7 RATIO; PROTHROMBIN TIME - PATIENT 19.1 SEC (9.8-11.6)
[2016-10-29 06:56] LABS: BICARBONATE 27.9 MEQ/L (21.0-32.0); POTASSIUM 3.8 MEQ/L (3.5-5.1)
[2016-10-29] MEDS: SODIUM CHLORIDE 0.9% FLUSH 10 ML FLUSH IV FLUSH SCH ×2 (08:56→19:45)
[2016-10-29] MEDS: FAMOTIDINE 40 MG/5 ML LIQ 50 ML BTL NG SCH ×2 (08:56→19:46)
[2016-10-29] MEDS: SODIUM CHLORIDE 0.9% FLUSH 10 ML FLUSH IVF SCH (08:57)
[2016-10-29] MEDS: DOCUSATE SODIUM 100 MG/10 ML UDC PO SCH ×2 (09:00→19:45)
[2016-10-29] MEDS: POTASSIUM CHLORIDE 20 MEQ PWD PACKET NG SCH ×2 (09:00→19:46)
[2016-10-29] MEDS: BENEPROTEIN POWDER 1 PACK G-TUBE SCH ×3 (09:00→16:39)
[2016-10-29] MEDS: EUCERIN CREAM 120 GM JAR TOPICAL SCH ×2 (09:01→19:46)
[2016-10-29] MEDS: ARTIFICIAL TEARS OPTH SOLN 15 ML BTL EACH EYE SCH ×3 (09:01→16:39)
--- NOTE | 2016-10-29 09:05 | HHI.PR ---
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 Sleepy but arausable. Has collar, satting well. No events overnight. Patient wants to take PO. Consult yvonne CARRERA. No fever or chills. Objective Vitals Vital Signs Date Time Temp Pulse Resp B/P Pulse Ox O2 Delivery O2 Flow Rate FiO2 10/29/16 06:00 90 10/29/16 05:41 26 10/29/16 04:00 97.7 92 24 151/74 94 10/29/16 04:00 92 10/29/16 03:00 90 151/83 96 10/29/16 02:00 85 10/29/16 02:00 85 135/65 97 10/29/16 01:00 94 10/29/16 01:00 94 131/66 98 10/29/16 00:00 88 10/29/16 00:00 88 125/71 97 10/29/16 00:00 98.9 88 20 125/71 97 10/28/16 23:00 82 117/85 99 10/28/16 22:00 88 111/58 94 10/28/16 22:00 88 10/28/16 21:45 98 Trach Collar 5.00 28 10/28/16 21:00 95 201/105 97 10/28/16 20:00 96 10/28/16 20:00 98.7 96 22 148/77 98 10/28/16 19:00 99 Trach Collar 28 10/28/16 19:00 99 153/78 99 10/28/16 18:00 100 144/83 93 10/28/16 17:00 99 155/99 94 10/28/16 16:00 98.7 96 156/85 95 10/28/16 15:00 91 137/74 94 10/28/16 14:00 91 135/77 96 10/28/16 13:00 91 136/70 98 10/28/16 12:00 99.4 97 171/96 97 10/28/16 11:00 97 159/92 93 10/28/16 10:00 93 144/88 98 10/28/16 09:10 98 Trach Collar 28 I/O 10/28/16 10/28/16 10/28/16 10/29/16 10/29/16 10/29/16 07:00 15:00 23:00 07:00 15:00 23:00 Intake Total 503 ml 625 ml 659 ml 464 ml Output Total 550 ml 600 ml 700 ml 400 ml Balance -47 ml 25 ml -41 ml 64 ml IV Total 117 ml 125 ml 108 ml 98 ml Tube Feeding 326 ml 200 ml 311 ml 246 ml Other 60 ml 300 ml 240 ml 120 ml Output Urine Total 550 ml 600 ml 700 ml 400 ml Tube Feeding Residual Discard 0 ml # Bowel Movements 1 1 1 Result Diagram: 10/29/16 0448 10/29/16 0448 Imaging Last Impressions Chest X-Ray 10/26/16 0600 Signed Impressions: Service Date/Time: October 04:09 - CONCLUSION: No significant change Dejan Cervantes MD Central Venous Line 10/20/16 0000 Signed Impressions: Service Date/Time: Thursday, October 20, 2016 00:00 - CONCLUSION: Uncomplicated Permcath removal. Didier Zhang MD Catheter Placement X-Ray 09/29/16 1223 Signed Impressions: Service Date/Time: Thursday, September 29, 2016 12:31 - CONCLUSION: Vas-Cath to PermCath exchange as detailed above. Taco Haas Jr., MD Renal Ultrasound 09/17/16 0000 Signed Impressions: Service Date/Time: Saturday, September 17, 2016 13:31 - CONCLUSION: Negative renal sonogram. Taco Davidson MD Upper Extremity Ultrasound 09/14/16 0000 Signed Impressions: Service Date/Time: August 08:32 - CONCLUSION: There is thrombus within the left subclavian and internal jugular veins. Danyel Escalante MD Lower Extremity Ultrasound 09/13/16 0000 Signed Impressions: Service Date/Time: Tuesday, September 13, 2016 22:33 - CONCLUSION: Normal examination. Leonides Mason MD Liver Ultrasound 09/08/16 0000 Signed Impressions: Service Date/Time: Thursday, September 08, 2016 08:45 - CONCLUSION: 1. Cholelithiasis with distended gallbladder. However, there are no associated findings present to diagnose acute cholecystitis. If there is persistent clinical concern for acute cholecystitis could evaluate for cystic duct obstruction with hepatobiliary scintigraphy. 2. Hepatomegaly with very heterogeneous echotexture and steatosis. Dejan Allison MD Gall Bladder Ultrasound 08/29/16 0000 Signed Impressions: Service Date/Time: Monday, August 29, 2016 15:21 - CONCLUSION: 1. Hepatomegaly with heterogeneous echotexture throughout the liver. 2. There is a large echogenic area near the neck of the gallbladder suggestive of a stone, but despite its large size, demonstrates no acoustic shadowing in any of the views. Taco Davidson MD CT Angiography 08/15/16 0000 Signed Impressions: Service Date/Time: Monday, August 15, 2016 02:33 - CONCLUSION: 1. No evidence for pulmonary embolism. 2. Multifocal consolidation greatest in the right lower lobe and associated adenopathy. Terry Estrada MD Objective Remarks GENERAL: 56 yo female currently on mechanical ventilation via tracheostomy SKIN: Warm and dry. Skin is flaky. Noted stage I to 2 decubitus ulcer\coccyx and back covered with Mepilex HEAD: Normocephalic. Atraumatic EYES: No scleral icterus. No injection or drainage. NECK: Neck is obese. Right subclavian hemodialysis catheters clean dry and intact. Tracheostomy site is clean dry and intact CARDIOVASCULAR: RRR. S1, S2. No S4. Without murmur RESPIRATORY: Diminished breath sounds throughout due to body habitus. GASTROINTESTINAL: Abdomen obese, soft, non-tender, hypoactive active bowel sounds. G-tube is clean dry and intact MUSCULOSKELETAL: 1+ edema BUE. Neuro: Awake alert oriented 3. Following commands moving upper and lower extremity spontaneously, though still weak. A/P Assessment and Plan Neuro/Psych: Acute toxic metabolic encephalopathy Critical care myopathy Agitated delirium- improving Minimize sedation Monitor neuro status. Fentanyl allergy On Seroquel 75 mg every 8 hours for agitation Melatonin 5mg po qHS for insomnia Acetaminophen for fever/pain Pulm: Acute on chronic hypercapnic and hypoxemic respiratory failure ARDS- resolved. Pneumonia community-acquired, now with HCAP with carbapenem-resistant pseudomonas and ESBL Klebsiella VAP. 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 T piece as tolerated ICU vent bundle Bronchodilator therapy every 6 hours and albuterol every 2 hours as needed Pulm has followed- Dr. Beck Gen surgery Dr. Ortega s/p s tracheostomy 09/15 Pulm toilet, trach care CV: Hypertension Dyslipidemia Elevated troponin - likely strain On Lopressor 50mg Q8 monitor HR and BP keep MAP>65mmHg As needed labetalol, hydralazine and Nitropaste for hypertension Echo 08/14 showed EF 65-70% mild AR/TR On Pravachol 20 mg a night for dyslipidemia Renal/: Acute kidney injury - requiring hemodialysis Dr. Tan -nephrology following. Hemodialysis Sunday//Sunday currently on hold. Tunneled cuff catheter discontinued 10/20 MIKE: ATN from sepsis syndrome and diminished renal perfusion; also aminoglycoside induced nephrotoxicity likely also contributing; possibly AIN -> per nephrology note Urine eosinophils negative. Renal ultrasound revealed no hydronephrosis Monitor renal function, I/O's, avoid nephrotoxins. Miller placed for accurate I's and O's GI: Elevated transaminases Cholelithiasis On TF Nepro's 45 cc an hour and Beneprotein 2 packs 3 times a day s/p PEG placement 09/01/[address] Garcia Pepcid 10mg BID GI prophylaxis Having BM US liver: Steatosis and cholelithiasis. Repeat 09/08 revealed cholelithiasis with no acute signs of cholecystitis. ID: Pseudomonas pneumonia Funguria, Maribell glabrata and parapsilosis. ID following. Pertinent cultures blood and sputum cx 08/15- NG strep pneumonia and Legionella urinary Ag negative Blood cultures 08/28: NGTD C Diff negative 08/28. Lines changed 08/28. Sputum 08/30 - Pseudomonas Sputum 09/02 PSAE, resistant to carbapenem, intermediate to Levaquin. 09/07 - urine -Maribell Guilliermondii 09/07 - blood cultures 2 - no growth 09/09 - urine -strep viridans, Maribell parapsilosis 09/10 - blood cultures 2 -no growth 09/11 - broch washings -no growth to date 09/12 - urine -Maribell glabrata and parapsilosis 09/16 - blood cultures 2 - pending 09/16 - sputum -no growth 09/16 - urine -Maribell glabrata and parapsilosis 10/02 - blood cultures 2 - staph epi 10/02 - urine - ESBL positive Klebsiella 10/04 - blood cultures 2 -no growth 10/05 - blood cultures 2 -no growth 10/17 - blood cultures -no growth 10/17 - sputum -Klebsiella ESBL positive and Stenotrophomonas maltophilia 10/17 - urine -C glabrata 10/21/ 10/22 - urine - ESBL positive Klebsiella Zosyn previously discontinued secondary to rash Followed by Dr. Uribe. Patient asymptomatic. Dr. Eaton recommended Levaquin/ertapenem if fever arises/symptomatic. Dr. Eaton started ertapenem on 10/24 for ESBL positive Klebsiella and urine from 10/22. 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 10/14, pharmacy dosing currently at 12 mg daily. IV Heparin started due to subtherapeutic last PTT PTT on heparin drip currently therapeutic. Coumadin per pharmacy dosing. Endo: Diabetes mellitus Hypothyroidism on SSI (medium scale) for glycemic control On Synthroid 200mcg daily. TSH 1.37 GI prophylaxis-Protonix 40mg Q12 DVT - IV heparin until therapeutic on Coumadin Lines: Peripheral IV. - PEG 09/01/16 - Trach 09/15 - Right Permacath placed 09/29 Loree Marinelli, daughter (HCP): [phone] Rony Isis, significant other: [phone] Pulmonary following for trach. Discussed with the patient and the ICU nurse. Cassi Reynolds MD Oct 29, 2016 09:05
[2016-10-29 14:10] LABS: APTT (PATIENT) 59.7 SEC (24.3-30.1)
[2016-10-29] MEDS: HEPARIN-D5W 25,000 U/250 ML 250 ML IV SCH (15:24)
--- NOTE | 2016-10-29 15:35 | HHI.PR ---
Subjective Remarks On T Bar 28 % all the time . Has few trach secretions. On tube feeds. Now on PO liquids. Objective Vital Signs Date Time Temp Pulse Resp B/P Pulse Ox O2 Delivery O2 Flow Rate FiO2 10/29/16 09:19 98 Trach Collar 28 10/29/16 08:00 Trach Collar 28 10/29/16 06:00 90 10/29/16 05:41 26 10/29/16 04:00 97.7 92 24 151/74 94 10/29/16 04:00 92 10/29/16 03:00 90 151/83 96 10/29/16 02:00 85 10/29/16 02:00 85 135/65 97 10/29/16 01:00 94 10/29/16 01:00 94 131/66 98 10/29/16 00:00 88 10/29/16 00:00 88 125/71 97 10/29/16 00:00 98.9 88 20 125/71 97 10/28/16 23:00 82 117/85 99 10/28/16 22:00 88 111/58 94 10/28/16 22:00 88 10/28/16 21:45 98 Trach Collar 5.00 28 10/28/16 21:00 95 201/105 97 10/28/16 20:00 96 10/28/16 20:00 98.7 96 22 148/77 98 10/28/16 19:00 99 Trach Collar 28 10/28/16 19:00 99 153/78 99 10/28/16 18:00 100 144/83 93 10/28/16 17:00 99 155/99 94 10/28/16 16:00 98.7 96 156/85 95 I/O 10/28/16 10/28/16 10/28/16 10/29/16 10/29/16 10/29/16 07:00 15:00 23:00 07:00 15:00 23:00 Intake Total 503 ml 625 ml 659 ml 464 ml Output Total 550 ml 600 ml 700 ml 400 ml Balance -47 ml 25 ml -41 ml 64 ml IV Total 117 ml 125 ml 108 ml 98 ml Tube Feeding 326 ml 200 ml 311 ml 246 ml Other 60 ml 300 ml 240 ml 120 ml Output Urine Total 550 ml 600 ml 700 ml 400 ml Tube Feeding Residual Discard 0 ml # Bowel Movements 1 1 1 Result Diagram: 10/29/168 10/29/16 044 Objective Remarks This is an obese middle-aged white female who is alert HEENT: Head normocephalic.throat clear.Trach is In . Neck: No bruits, no thyroid enlargement, no lymphadenopathy.No JVD Chest: Decreased breath sounds. Few wheezes and basal crackles. Heart: Heart sounds were regular. S1-S2 no murmur, no S3. Abdomen: Soft, benign. No masses, or tenderness. Bowel sounds are active. Extremities:min edema . Neuro :Moves all limbs.no deficits. Alert and talking. Assessment and Plan Assessment and Plan IMPRESSION 1. Acute hypercapnic respiratory failure.Resolving 2. Pulmonary edema. 3. Drug rash 4. Obstructive sleep apnea syndrome 5. Hypertension 6. Hypothyroidism. 7. MIKE Plan : 1. Cont on T Bar 28 % all the time 2. Trach toilet and suctioning. 3. Nebs qid , duoneb. 4. Transfer to floor with tele 5. Use PM valve to talk. 6. PT and OT 7. Tube feeds at 60 CC 8. Po liquids as tolerated Abimael Beck MD Oct 29, 2016 15:34
[2016-10-29] MEDS ORDERED: WARFARIN SOD 3 MG TAB PO ONE (16:00)
[2016-10-29] MEDS: WARFARIN SOD 6 MG TAB PO SCH (16:38)
[2016-10-29] MEDS: ERTAPENEM INJ 1,000 MG in SODIUM CHLORIDE 0.9% INJ 100 ML IV SCH (17:38)
[2016-10-29] MEDS: MELATONIN 5 MG TAB PO SCH (19:45)
[2016-10-29] MEDS: PRAVASTATIN SOD 20 MG TAB PO SCH (19:45)
[2016-10-29] MEDS: CHLORHEXIDINE GLUCONATE 2 % 1 PACK (2 CLOTHS) TOP SCH (21:03)
[2016-10-29 21:18] LABS: APTT (PATIENT) 58.3 SEC (24.3-30.1)
[2016-10-30] VITALS (19 sets, daily range): BP systolic 112–151; BP diastolic 66–85; PULSE 80–96; RESP 21–54; TEMP 97.8–98.7; O2SAT 94–100
[2016-10-30 05:08] LABS: AUTOMATED NEUTROPHIL # 5.4 TH/MM3 (1.8-7.7); BASOPHIL # 0.1 TH/MM3 (0-0.2); BASOPHIL % 0.9 % (0.0-2.0); EOSINOPHIL # 0.7 TH/MM3 (0-0.4); EOSINOPHIL % 6.4 % (0.0-4.0); HEMATOCRIT 25.1 % (35.0-46.0); LYMPH % 37.9 % (9.0-44.0); LYMPHOCYTE # 4.4 TH/MM3 (1.0-4.8); MEAN CELL VOLUME 86.3 FL (80.0-100.0); MEAN CORPUSCULAR HEMOGLOBIN 27.5 PG (27.0-34.0); MEAN CORPUSCULAR HGB CONC 31.9 % (32.0-36.0); NEUT % 46.8 % (16.0-70.0); PLATELET COUNT 281 TH/MM3 (150-450); RED BLOOD COUNT 2.91 MIL/MM3 (4.00-5.30); RED CELL DISTRIBUTION WIDTH 19.1 % (11.6-17.2); WHITE BLOOD COUNT 11.6 TH/MM3 (4.0-11.0)
[2016-10-30 05:13] LABS: HEMO FLAGS AUTO DIFF
[2016-10-30 05:15] LABS: APTT (PATIENT) 67.1 SEC (24.3-30.1); INTERNATIONAL NORMALIZED RATIO 2.2 RATIO; PROTHROMBIN TIME - PATIENT 24.8 SEC (9.8-11.6)
[2016-10-30 05:20] LABS: BICARBONATE 27.8 MEQ/L (21.0-32.0); POTASSIUM 4.1 MEQ/L (3.5-5.1)
[2016-10-30] MEDS: LEVOTHYROXINE SODIUM 200 MCG TAB PO SCH (05:21)
[2016-10-30] MEDS: METOPROLOL TARTRATE 25 MG TAB G-TUBE SCH ×3 (05:21→20:13)
[2016-10-30] MEDS: QUEtiapine FUMARATE 25 MG TAB PO SCH ×3 (05:21→20:14)
[2016-10-30 06:45] LABS: BANDS 3 % (0-6); CORRECTED NUCLEATED RBC 1 /100 WBC (0-0); EOSINOPHILS 5 % (0-4); MYELOCYTES 2 % (0-0); NEUTROPHIL # MANUAL DIFF 6.4 TH/MM3 (1.8-7.7); POLYS (SEG NEUTROPHILS) 50 % (16-70); WBC DIFF SAMPLE 100
[2016-10-30 06:46] LABS: PLATELET ESTIMATE SMEAR NORMAL (NORMAL); PLATELET MORPHOLOGY NORMAL (NORMAL); SCAN/DIFF FINAL DIFF MANUAL
[2016-10-30 06:47] LABS: STOMATOCYTES 1+ (NORMAL)
--- NOTE | 2016-10-30 08:00 | HHI.PR ---
Subjective Remarks More awake and alert, passed swallow eval test, say she is eating some food. No n/v/d/c. Had a normal BM yesterday. No abd pain. Says has secretions but getting less. Doesn't feel sob. Appears in nad. Objective Vitals Vital Signs Date Time Temp Pulse Resp B/P Pulse Ox O2 Delivery O2 Flow Rate FiO2 10/30/16 06:00 80 10/30/16 04:00 97.8 82 23 145/76 98 10/30/16 04:00 82 10/30/16 04:00 98.6 82 28 112/79 99 10/30/16 03:00 83 26 144/84 98 10/30/16 02:00 96 10/30/16 02:00 96 54 151/83 95 10/30/16 01:01 83 30 136/82 96 10/30/16 01:00 84 31 97 10/30/16 00:00 82 28 112/79 99 10/30/16 00:00 82 10/30/16 00:00 98.6 82 28 112/79 99 10/29/16 23:00 81 69 107/62 95 10/29/16 22:39 93 6.00 35 10/29/16 22:00 79 28 109/56 95 10/29/16 22:00 79 10/29/16 21:07 22 10/29/16 21:00 90 32 150/67 97 10/29/16 20:00 95 36 170/71 95 10/29/16 20:00 98.7 91 29 154/94 100 10/29/16 20:00 95 10/29/16 19:00 95 Trach Collar 28 10/29/16 19:00 97 30 143/70 96 10/29/16 18:00 101 36 162/99 95 10/29/16 17:00 96 34 151/88 98 10/29/16 16:00 98.5 91 29 154/94 100 10/29/16 15:00 90 30 138/91 99 10/29/16 14:01 83 35 136/82 96 10/29/16 14:00 84 35 96 10/29/16 13:07 101 23 179/93 93 10/29/16 13:06 100 34 196/87 96 10/29/16 13:01 104 39 202/113 98 10/29/16 13:00 103 36 97 10/29/16 12:00 98.4 98 13 145/85 97 10/29/16 11:00 96 7 115/63 94 10/29/16 10:00 97 23 123/68 94 10/29/16 09:19 98 Trach Collar 28 10/29/16 09:00 92 24 125/66 99 10/29/16 08:00 Trach Collar 28 10/29/16 08:00 98.5 82 117/81 97 I/O 10/29/16 10/29/16 10/29/16 10/30/16 10/30/16 10/30/16 07:00 15:00 23:00 07:00 15:00 23:00 Intake Total 464 ml 905 ml 647 ml 227 ml Output Total 400 ml 650 ml 625 ml 650 ml Balance 64 ml 255 ml 22 ml -423 ml IV Total 98 ml 130 ml 207 ml 107 ml Tube Feeding 246 ml 375 ml 240 ml Other 120 ml 400 ml 200 ml 120 ml Output Urine Total 400 ml 650 ml 625 ml 650 ml # Bowel Movements 1 0 1 Result Diagram: 10/30/16 0414 10/30/16 0414 Imaging Last Impressions Chest X-Ray 10/26/16 0600 Signed Impressions: Service Date/Time: October 04:09 - CONCLUSION: No significant change Dejan Cervantes MD Central Venous Line 10/20/16 0000 Signed Impressions: Service Date/Time: Thursday, October 20, 2016 00:00 - CONCLUSION: Uncomplicated Permcath removal. Didier Zhang MD Catheter Placement X-Ray 09/29/16 1223 Signed Impressions: Service Date/Time: Thursday, September 29, 2016 12:31 - CONCLUSION: Vas-Cath to PermCath exchange as detailed above. Taco Haas Jr., MD Renal Ultrasound 09/17/16 0000 Signed Impressions: Service Date/Time: Saturday, September 17, 2016 13:31 - CONCLUSION: Negative renal sonogram. Taco Davidson MD Upper Extremity Ultrasound 09/14/16 0000 Signed Impressions: Service Date/Time: August 08:32 - CONCLUSION: There is thrombus within the left subclavian and internal jugular veins. Danyel Escalante MD Lower Extremity Ultrasound 09/13/16 0000 Signed Impressions: Service Date/Time: Tuesday, September 13, 2016 22:33 - CONCLUSION: Normal examination. Leonides Mason MD Liver Ultrasound 09/08/16 0000 Signed Impressions: Service Date/Time: Thursday, September 08, 2016 08:45 - CONCLUSION: 1. Cholelithiasis with distended gallbladder. However, there are no associated findings present to diagnose acute cholecystitis. If there is persistent clinical concern for acute cholecystitis could evaluate for cystic duct obstruction with hepatobiliary scintigraphy. 2. Hepatomegaly with very heterogeneous echotexture and steatosis. Dejan Allison MD Gall Bladder Ultrasound 08/29/16 0000 Signed Impressions: Service Date/Time: Monday, August 29, 2016 15:21 - CONCLUSION: 1. Hepatomegaly with heterogeneous echotexture throughout the liver. 2. There is a large echogenic area near the neck of the gallbladder suggestive of a stone, but despite its large size, demonstrates no acoustic shadowing in any of the views. Taco Davidson MD CT Angiography 08/15/16 Signed Impressions: Service Date/Time: Monday, August 15, 2016 02:33 - CONCLUSION: 1. No evidence for pulmonary embolism. 2. Multifocal consolidation greatest in the right lower lobe and associated adenopathy. Terry Estrada MD Objective Remarks GENERAL: 56 yo female currently on mechanical ventilation via tracheostomy SKIN: Warm and dry. Skin is flaky. Noted stage I to 2 decubitus ulcer\coccyx and back covered with Mepilex HEAD: Normocephalic. Atraumatic EYES: No scleral icterus. No injection or drainage. NECK: Neck is obese. Right subclavian hemodialysis catheters clean dry and intact. Tracheostomy site is clean dry and intact CARDIOVASCULAR: RRR. S1, S2. No S4. Without murmur RESPIRATORY: Diminished breath sounds throughout due to body habitus. GASTROINTESTINAL: Abdomen obese, soft, non-tender, hypoactive active bowel sounds. G-tube is clean dry and intact MUSCULOSKELETAL: 1+ edema BUE. Neuro: Awake alert oriented 3. Following commands moving upper and lower extremity spontaneously, though still weak. A/P Assessment and Plan Neuro/Psych: Acute toxic metabolic encephalopathy Critical care myopathy Agitated delirium- improving Minimize sedation Monitor neuro status. Fentanyl allergy On Seroquel 75 mg every 8 hours for agitation Melatonin 5mg po qHS for insomnia Acetaminophen for fever/pain Pulm: Acute on chronic hypercapnic and hypoxemic respiratory failure ARDS- resolved. Pneumonia community-acquired, now with HCAP with carbapenem-resistant pseudomonas and ESBL Klebsiella VAP. 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 T piece as tolerated ICU vent bundle Bronchodilator therapy every 6 hours and albuterol every 2 hours as needed Pulm has followed- Dr. Beck Gen surgery Dr. Ortega s/p s tracheostomy 09/15 Pulm toilet, trach care CV: Hypertension Dyslipidemia Elevated troponin - likely strain On Lopressor 50mg Q8 monitor HR and BP keep MAP>65mmHg As needed labetalol, hydralazine and Nitropaste for hypertension Echo 08/14 showed EF 65-70% mild AR/TR On Pravachol 20 mg a night for dyslipidemia Renal/: Acute kidney injury - requiring hemodialysis Dr. Tan -nephrology following. Hemodialysis Sunday//Sunday currently on hold. Tunneled cuff catheter discontinued 10/20 MIKE: ATN from sepsis syndrome and diminished renal perfusion; also aminoglycoside induced nephrotoxicity likely also contributing; possibly AIN -> per nephrology note Urine eosinophils negative. Renal ultrasound revealed no hydronephrosis Monitor renal function, I/O's, avoid nephrotoxins. Miller placed for accurate I's and O's GI: Elevated transaminases Cholelithiasis On TF Nepro's 45 cc an hour and Beneprotein 2 packs 3 times a day s/p PEG placement 09/01/[address] Garcia. Also patient passed swallow evaluation , however doesn't eat much po. Pepcid 10mg BID GI prophylaxis Having BM US liver: Steatosis and cholelithiasis. Repeat 09/08 revealed cholelithiasis with no acute signs of cholecystitis. ID: Pseudomonas pneumonia Funguria, Maribell glabrata and parapsilosis. ID following. Pertinent cultures blood and sputum cx 08/15- NG strep pneumonia and Legionella urinary Ag negative Blood cultures 08/28: NGTD C Diff negative 08/28. Lines changed 08/28. Sputum 08/30 - Pseudomonas Sputum 09/02 PSAE, resistant to carbapenem, intermediate to Levaquin. 09/07 - urine -Maribell Guilliermondii 09/07 - blood cultures 2 - no growth 09/09 - urine -strep viridans, Maribell parapsilosis 09/10 - blood cultures 2 -no growth 09/11 - broch washings -no growth to date 09/12 - urine -Maribell glabrata and parapsilosis 09/16 - blood cultures 2 - pending 09/16 - sputum -no growth 09/16 - urine -Maribell glabrata and parapsilosis 10/02 - blood cultures 2 - staph epi 10/02 - urine - ESBL positive Klebsiella 10/04 - blood cultures 2 -no growth 10/05 - blood cultures 2 -no growth 10/17 - blood cultures -no growth 10/17 - sputum -Klebsiella ESBL positive and Stenotrophomonas maltophilia 10/17 - urine -C glabrata 10/21/ 10/22 - urine - ESBL positive Klebsiella Zosyn previously discontinued secondary to rash Followed by Dr. Uribe. Patient asymptomatic. Dr. Eaton recommended Levaquin/ertapenem if fever arises/symptomatic. Dr. Eaton started ertapenem on 10/24 for ESBL positive Klebsiella and urine from 10/22. 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 10/14, pharmacy dosing currently at 12 mg daily. IV Heparin started due to subtherapeutic last PTT PTT on heparin drip currently therapeutic. Coumadin per pharmacy dosing. Endo: Diabetes mellitus Hypothyroidism on SSI (medium scale) for glycemic control On Synthroid 200mcg daily. TSH 1.37 GI prophylaxis-Protonix 40mg Q12 DVT - IV heparin until therapeutic on Coumadin Lines: Peripheral IV. - PEG 09/01/16 - Trach 09/15 - Right Permacath placed 09/29 Loree Marinelli, daughter (HCP): [phone] Rony Marinelli, significant other: [phone] Pulmonary following for trach. Discussed with the patient and the ICU nurse. Cassi Reynolds MD Oct 30, 2016 08:00
[2016-10-30] MEDS: SODIUM CHLORIDE 0.9% FLUSH 10 ML FLUSH IVF SCH (08:01)
[2016-10-30] MEDS: POTASSIUM CHLORIDE 20 MEQ PWD PACKET NG SCH ×2 (08:01→20:00)
[2016-10-30] MEDS: SODIUM CHLORIDE 0.9% FLUSH 10 ML FLUSH IV FLUSH SCH ×2 (08:01→20:00)
[2016-10-30] MEDS: FAMOTIDINE 40 MG/5 ML LIQ 50 ML BTL NG SCH ×2 (08:02→20:05)
[2016-10-30] MEDS: DOCUSATE SODIUM 100 MG/10 ML UDC PO SCH ×2 (08:02→20:00)
[2016-10-30] MEDS: EUCERIN CREAM 120 GM JAR TOPICAL SCH ×2 (08:02→20:05)
[2016-10-30] MEDS: BENEPROTEIN POWDER 1 PACK G-TUBE SCH ×3 (08:02→16:11)
[2016-10-30] MEDS: ARTIFICIAL TEARS OPTH SOLN 15 ML BTL EACH EYE SCH ×3 (08:02→16:12)
--- NOTE | 2016-10-30 10:34 | HHI.IDPN ---
Subjective Subjective Remarks Patient is admitted to ICU with respiratory failure, CHF, pneumonia, probable underlying COPD. Patient was intubated and placed on mechanical ventilation. NOt weaning and had trach done 09/15. Has been having fevers. s/p Rx for PSAE PNA and C glabrata UTI. ID was reconsulted for increased WBC and increased thick yellow secretions. remains on T-piece afebrile + leukocytosis Antibiotics None Lines Line sites with no e.o infection. Past Medical History reviewed. Allergies: Coded Allergies: Fentanyl (Verified Adverse Reaction, Severe, rash, 09/21/16) *MDRO Multi-Drug Resistant Organism (Verified Adverse Reaction, Unknown, ) ESBL (urine & sputum)-10/02/16 ESBL (urine)-10/22/16 Objective . Vital Signs Date Time Temp Pulse Resp B/P Pulse Ox O2 Delivery O2 Flow Rate FiO2 10/30/16 07:10 99 T-piece 6.00 28 10/30/16 06:00 80 10/30/16 04:00 97.8 82 23 145/76 98 10/30/16 04:00 82 10/30/16 04:00 98.6 82 28 112/79 99 10/30/16 03:00 83 26 144/84 98 10/30/16 02:00 96 10/30/16 02:00 96 54 151/83 95 10/30/16 01:01 83 30 136/82 96 10/30/16 01:00 84 31 97 10/30/16 00:00 82 28 112/79 99 10/30/16 00:00 82 10/30/16 00:00 98.6 82 28 112/79 99 10/29/16 23:00 81 69 107/62 95 10/29/16 22:39 93 6.00 35 10/29/16 22:00 79 28 109/56 95 10/29/16 22:00 79 10/29/16 21:07 22 10/29/16 21:00 90 32 150/67 97 10/29/16 20:00 95 36 170/71 95 10/29/16 20:00 98.7 91 29 154/94 100 10/29/16 20:00 95 10/29/16 19:00 95 Trach Collar 28 10/29/16 19:00 97 30 143/70 96 10/29/16 18:00 101 36 162/99 95 10/29/16 17:00 96 34 151/88 98 10/29/16 16:00 98.5 91 29 154/94 100 10/29/16 15:00 90 30 138/91 99 10/29/16 14:01 83 35 136/82 96 10/29/16 14:00 84 35 96 10/29/16 13:07 101 23 179/93 93 10/29/16 13:06 100 34 196/87 96 10/29/16 13:01 104 39 202/113 98 10/29/16 13:00 103 36 97 10/29/16 12:00 98.4 98 13 145/85 97 10/29/16 11:00 96 7 115/63 94 10/29/16 10/29/16 10/30/16 14:59 22:59 06:59 Intake Total 905 ml 647 ml 227 ml Output Total 650 ml 625 ml 650 ml Balance 255 ml 22 ml -423 ml IV Total 130 ml 207 ml 107 ml Tube Feeding 375 ml 240 ml Other 400 ml 200 ml 120 ml Output Urine Total 650 ml 625 ml 650 ml # Bowel Movements 0 1 . Laboratory Tests Test 10/29/16 10/30/16 04:48 04:14 White Blood Count 13.7 TH/MM3 11.6 TH/MM3 Red Blood Count 2.93 MIL/MM3 2.91 MIL/MM3 Hemoglobin 8.2 GM/DL 8.0 GM/DL Hematocrit 25.1 % 25.1 % Mean Corpuscular Volume 85.7 FL 86.3 FL Mean Corpuscular Hemoglobin 28.0 PG 27.5 PG Mean Corpuscular Hemoglobin 32.7 % 31.9 % Concent Red Cell Distribution Width 19.2 % 19.1 % Platelet Count 316 TH/MM3 281 TH/MM3 Mean Platelet Volume 7.5 FL 7.2 FL Neutrophils (%) (Auto) 46.8 % Lymphocytes (%) (Auto) 37.9 % Monocytes (%) (Auto) 8.0 % Eosinophils (%) (Auto) 6.4 % Basophils (%) (Auto) 0.9 % Neutrophils # (Auto) 5.4 TH/MM3 Lymphocytes # (Auto) 4.4 TH/MM3 Monocytes # (Auto) 0.9 TH/MM3 Eosinophils # (Auto) 0.7 TH/MM3 Basophils # (Auto) 0.1 TH/MM3 CBC Comment AUTO DIFF Differential Total Cells 100 Counted Neutrophils % (Manual) 50 % Band Neutrophils % 3 % Lymphocytes % 32 % Monocytes % 8 % Eosinophils % 5 % Neutrophils # (Manual) 6.4 TH/MM3 Myelocytes 2 % Nucleated Red Blood Cells 1 /100 WBC Differential Comment FINAL DIFF MANUAL Platelet Estimate NORMAL Platelet Morphology Comment NORMAL Basophilic Stippling FAINT Stomatocytes 1+ Laboratory Tests Test 10/29/16 10/30/16 04:48 04:14 Sodium Level 147 MEQ/L 143 MEQ/L Potassium Level 3.8 MEQ/L 4.1 MEQ/L Chloride Level 107 MEQ/L 105 MEQ/L Carbon Dioxide Level 27.9 MEQ/L 27.8 MEQ/L Anion Gap 12 MEQ/L 10 MEQ/L Blood Urea Nitrogen 37 MG/DL 39 MG/DL Creatinine 1.04 MG/DL 1.03 MG/DL Estimat Glomerular Filtration 55 ML/MIN 56 ML/MIN Rate Random Glucose 113 MG/DL 96 MG/DL Calcium Level 9.1 MG/DL 9.2 MG/DL Imaging Last Impressions Chest X-Ray 10/23/16 0600 Signed Impressions: Service Date/Time: Sunday, October 23, 2016 05:27 - CONCLUSION: Interval dialysis catheter removal. Slight interval worsening in aeration at the right lung base Dejan Cervantes MD Central Venous Line 10/20/16 0000 Signed Impressions: Service Date/Time: Thursday, October 20, 2016 00:00 - CONCLUSION: Uncomplicated Permcath removal. Didier Zhang MD Catheter Placement X-Ray 09/29/16 1223 Signed Impressions: Service Date/Time: Thursday, September 29, 2016 12:31 - CONCLUSION: Vas-Cath to PermCath exchange as detailed above. Taco Haas Jr., MD Renal Ultrasound 09/17/16 0000 Signed Impressions: Service Date/Time: Saturday, September 17, 2016 13:31 - CONCLUSION: Negative renal sonogram. Taco Davidson MD Upper Extremity Ultrasound 09/14/16 0000 Signed Impressions: Service Date/Time: August 08:32 - CONCLUSION: There is thrombus within the left subclavian and internal jugular veins. Danyel Escalante MD Lower Extremity Ultrasound 09/13/16 0000 Signed Impressions: Service Date/Time: Tuesday, September 13, 2016 22:33 - CONCLUSION: Normal examination. Leonides Mason MD Liver Ultrasound 09/08/16 0000 Signed Impressions: Service Date/Time: Thursday, September 08, 2016 08:45 - CONCLUSION: 1. Cholelithiasis with distended gallbladder. However, there are no associated findings present to diagnose acute cholecystitis. If there is persistent clinical concern for acute cholecystitis could evaluate for cystic duct obstruction with hepatobiliary scintigraphy. 2. Hepatomegaly with very heterogeneous echotexture and steatosis. Dejan Allison MD Gall Bladder Ultrasound 08/29/16 0000 Signed Impressions: Service Date/Time: Monday, August 29, 2016 15:21 - CONCLUSION: 1. Hepatomegaly with heterogeneous echotexture throughout the liver. 2. There is a large echogenic area near the neck of the gallbladder suggestive of a stone, but despite its large size, demonstrates no acoustic shadowing in any of the views. Taco Davidson MD CT Angiography 08/15/16 0000 Signed Impressions: Service Date/Time: Monday, August 15, 2016 02:33 - CONCLUSION: 1. No evidence for pulmonary embolism. 2. Multifocal consolidation greatest in the right lower lobe and associated adenopathy. Terry Estrada MD Physical Exam GENERAL: Morbidly obese patient, awake, NAD, on the vent SKIN: no rash HEAD: Atraumatic. Normocephalic. No temporal or scalp tenderness. EYES: Pupils equal round and reactive. No scleral icterus. Moist mucosa ENT: No nasal discharge. Dry oral mucosa NECK:Supple. Trach in place thick yellow secretions. CARDIOVASCULAR: Regular rate and rhythm RESPIRATORY: transmitted upper airway sounds GASTROINTESTINAL: Abdomen soft, obese, non-tender, nondistended. MUSCULOSKELETAL: Extremities without clubbing, cyanosis. Edema , trace NEUROLOGICAL: awake alert, communicates PIV with no evidence of infection : Miller in place with clear yellow urine. Assessment & Plan Remarks Sepsis present on admission. ESBL and very MDR PSAE tracheobronchitis. Morbid Obesity (BMI 45.8 kg/m2) Obstructive Sleep Apnea (supposed to be on CPAP at home and home oxygen 2L) Acute respiratory failure vent dependent. Acute metabolic encephalopathy: infection, meds. Thrombosis of cephalic vein. Renal insufficiency, HD on hold as Cr and UO improving. Recs: DC Ertapenem IV Start Colistin nebs. Follow clinically dw Terri Basilio MD Oct 30, 2016 10:34 Now bacteriuria less likely UTI, ESBL Kleb pneumo - with clinically asymptomatic pt I will cont to hold off abx) Now worsening secretiona and leukocuytosis Recs: - rechk sputum clx and CXR - will start Ertapenem dw Terri Basilio MD Oct 30, 2016 10:34
[2016-10-30] MEDS: WARFARIN SOD 6 MG TAB PO SCH (16:11)
[2016-10-30] MEDS: RESP: COLISTIN 150 MG VIAL NEB SCH ×2 (17:13→23:59)
--- NOTE | 2016-10-30 19:00 | HHI.PR ---
Subjective Remarks On T Bar 28 % all the time . Has few trach secretions. On tube feeds. Now on PO liquids.Tolerating it well. Objective Vital Signs Date Time Temp Pulse Resp B/P Pulse Ox O2 Delivery O2 Flow Rate FiO2 10/30/16 18:00 87 10/30/16 17:05 96 T-piece 6.00 35 10/30/16 16:00 98.7 81 21 133/77 99 10/30/16 16:00 99 Trach Collar 28 10/30/16 16:00 81 10/30/16 14:00 93 10/30/16 12:00 98.4 88 22 133/85 97 10/30/16 12:00 88 10/30/16 12:00 97 Trach Collar 28 10/30/16 10:00 85 10/30/16 08:00 98.7 82 24 141/66 100 10/30/16 08:00 100 Trach Collar 28 10/30/16 08:00 82 10/30/16 07:10 99 T-piece 6.00 28 10/30/16 06:00 80 10/30/16 04:00 97.8 82 23 145/76 98 10/30/16 04:00 82 10/30/16 04:00 98.6 82 28 112/79 99 10/30/16 03:00 83 26 144/84 98 10/30/16 02:00 96 10/30/16 02:00 96 54 151/83 95 10/30/16 01:01 83 30 136/82 96 10/30/16 01:00 84 31 97 10/30/16 00:00 82 28 112/79 99 10/30/16 00:00 82 10/30/16 00:00 98.6 82 28 112/79 99 10/29/16 23:00 81 69 107/62 95 10/29/16 22:39 93 6.00 35 10/29/16 22:00 79 28 109/56 95 10/29/16 22:00 79 10/29/16 21:07 22 10/29/16 21:00 90 32 150/67 97 10/29/16 20:00 95 36 170/71 95 10/29/16 20:00 98.7 91 29 154/94 100 10/29/16 20:00 95 10/29/16 19:00 95 Trach Collar 28 10/29/16 19:00 97 30 143/70 96 I/O 10/29/16 10/29/16 10/29/16 10/30/16 10/30/16 10/30/16 07:00 15:00 23:00 07:00 15:00 23:00 Intake Total 464 ml 905 ml 647 ml 227 ml 360 ml Output Total 400 ml 650 ml 625 ml 650 ml 850 ml Balance 64 ml 255 ml 22 ml -423 ml -490 ml Intake Oral 360 ml IV Total 98 ml 130 ml 207 ml 107 ml Tube Feeding 246 ml 375 ml 240 ml Other 120 ml 400 ml 200 ml 120 ml Output Urine Total 400 ml 650 ml 625 ml 650 ml 850 ml # Bowel Movements 1 0 1 Result Diagram: 10/30/1641310/30/16413 Objective Remarks This is an obese middle-aged white female who is alert HEENT: Head normocephalic.throat clear.Trach is In . Neck: No bruits, no thyroid enlargement, no lymphadenopathy.No JVD Chest: Decreased breath sounds. Few wheezes and occ crackles. Heart: Heart sounds were regular. S1-S2 no murmur, no S3. Abdomen: Soft, benign. No masses, or tenderness. Bowel sounds are active. Extremities:min edema . Neuro :Moves all limbs.no deficits. Alert and talking. Assessment and Plan Assessment and Plan IMPRESSION 1. Acute hypercapnic respiratory failure.Resolving 2. Pulmonary edema. 3. Drug rash 4. Obstructive sleep apnea syndrome 5. Hypertension 6. Hypothyroidism. 7. MIKE Plan : 1. Cont on T Bar 28 % all the time 2. Trach toilet and suctioning. 3. Nebs qid , duoneb. 4. Labs in am. 5. Use PM valve to talk. 6. PT and OT 7. Tube feeds at 50 CC 8. Po liquids as tolerated Abimael Beck MD Oct 30, 2016 19:00
[2016-10-30] MEDS: PRAVASTATIN SOD 20 MG TAB PO SCH (20:00)
[2016-10-30] MEDS: MELATONIN 5 MG TAB PO SCH (20:00)
[2016-10-30] MEDS: MORPHINE SULFATE 4 MG/ML INJ IV PRN (21:12)
[2016-10-31] VITALS (13 sets, daily range): BP systolic 118–145; BP diastolic 73–94; PULSE 74–90; RESP 17–22; TEMP 98–98.5; O2SAT 90–100
[2016-10-31] MEDS: CHLORHEXIDINE GLUCONATE 2 % 1 PACK (2 CLOTHS) TOP SCH (04:00)
[2016-10-31] MEDS: QUEtiapine FUMARATE 25 MG TAB PO SCH ×3 (04:52→23:14)
[2016-10-31] MEDS: METOPROLOL TARTRATE 25 MG TAB G-TUBE SCH ×3 (04:52→23:17)
[2016-10-31] MEDS: LEVOTHYROXINE SODIUM 200 MCG TAB PO SCH (04:52)
--- NOTE | 2016-10-31 06:19 | RADRPT ---
EXAM DATE/TIME: 10/31/2016 04:14 [facility] COMPARISON: CHEST SINGLE AP, October 26, 2016, 4:09. INDICATIONS : Shortness of breath. MEDICAL HISTORY : Congestive heart failure. SURGICAL HISTORY : None. ENCOUNTER: Subsequent ACUITY: 2 months PAIN SCORE: 0/10 LOCATION: Bilateral chest FINDINGS: A single view of the chest demonstrates the lungs to be symmetrically aerated with some minimal conso lidation of the left upper lobe. Tracheostomy tubes in good position. Mild atelectasis right lung bas e unchanged. The cardiomediastinal contours are unremarkable. Osseous structures are intact. CONCLUSION: Small area of consolidation in the left upper lobe stable from the previous study Leonides Mason MD on October 31, 2016 at 6:17 Board Certified Radiologist. This report was verified electronically.
[2016-10-31 07:06] LABS: INTERNATIONAL NORMALIZED RATIO 2.3 RATIO; PROTHROMBIN TIME - PATIENT 26.5 SEC (9.8-11.6)
[2016-10-31] MEDS: RESP: COLISTIN 150 MG VIAL NEB SCH ×3 (07:42→23:50)
--- NOTE | 2016-10-31 08:15 | HHI.PR ---
Subjective Remarks Patient with some secretions around the trach, suctioned. Says she is not sob. Has intermittent cough., No fevr or chills. Able to eat , not much appetite, continue feeding tube. No n/v/d/c. Follows commands , moving upper and lower extremities without any trouble. Objective Vitals Vital Signs Date Time Temp Pulse Resp B/P Pulse Ox O2 Delivery O2 Flow Rate FiO2 10/31/16 07:42 100 Trach Collar 6.00 35 10/31/16 06:00 86 10/31/16 04:00 98.2 88 20 137/75 90 10/31/16 04:00 90 Trach Collar 28 10/31/16 04:00 80 10/31/16 02:00 79 10/31/16 00:00 98.0 76 20 118/74 100 10/31/16 00:00 100 Trach Collar 28 10/31/16 00:00 76 10/30/16 22:16 96 Trach Collar 6.00 35 10/30/16 22:00 80 10/30/16 20:00 99 Trach Collar 28 10/30/16 20:00 98.4 89 22 129/76 98 10/30/16 20:00 89 10/30/16 18:00 87 10/30/16 17:05 96 T-piece 6.00 35 10/30/16 16:00 98.7 81 21 133/77 99 10/30/16 16:00 99 Trach Collar 28 10/30/16 16:00 81 10/30/16 14:00 93 10/30/16 12:00 98.4 88 22 133/85 97 10/30/16 12:00 88 10/30/16 12:00 97 Trach Collar 28 10/30/16 10:00 85 I/O 10/30/16 10/30/16 10/30/16 10/31/16 10/31/16 10/31/16 07:00 15:00 23:00 07:00 15:00 23:00 Intake Total 227 ml 360 ml 100 ml 400 ml Output Total 650 ml 850 ml 700 ml 700 ml Balance -423 ml -490 ml -600 ml -300 ml Intake Oral 360 ml 100 ml 300 ml IV Total 107 ml Other 120 ml 100 ml Output Urine Total 650 ml 850 ml 700 ml 700 ml # Bowel Movements 1 Result Diagram: 10/30/16 0414 10/30/16 0414 Imaging Last Impressions Chest X-Ray 10/31/16 0600 Signed Impressions: Service Date/Time: Monday, October 31, 2016 04:14 - CONCLUSION: Small area of consolidation in the left upper lobe stable from the previous study Leonides Mason MD Central Venous Line 10/20/16 0000 Signed Impressions: Service Date/Time: Thursday, October 20, 2016 00:00 - CONCLUSION: Uncomplicated Permcath removal. Didier Zhang MD Catheter Placement X-Ray 09/29/16 1223 Signed Impressions: Service Date/Time: Thursday, September 29, 2016 12:31 - CONCLUSION: Vas-Cath to PermCath exchange as detailed above. Taco Haas Jr., MD Renal Ultrasound 09/17/16 0000 Signed Impressions: Service Date/Time: Saturday, September 17, 2016 13:31 - CONCLUSION: Negative renal sonogram. Taco Davidson MD Upper Extremity Ultrasound 09/14/16 0000 Signed Impressions: Service Date/Time: August 08:32 - CONCLUSION: There is thrombus within the left subclavian and internal jugular veins. Danyel Escalante MD Lower Extremity Ultrasound 09/13/16 0000 Signed Impressions: Service Date/Time: Tuesday, September 13, 2016 22:33 - CONCLUSION: Normal examination. Leonides Mason MD Liver Ultrasound 09/08/16 0000 Signed Impressions: Service Date/Time: Thursday, September 08, 2016 08:45 - CONCLUSION: 1. Cholelithiasis with distended gallbladder. However, there are no associated findings present to diagnose acute cholecystitis. If there is persistent clinical concern for acute cholecystitis could evaluate for cystic duct obstruction with hepatobiliary scintigraphy. 2. Hepatomegaly with very heterogeneous echotexture and steatosis. Dejan Allison MD Gall Bladder Ultrasound 08/29/16 0000 Signed Impressions: Service Date/Time: Monday, August 29, 2016 15:21 - CONCLUSION: 1. Hepatomegaly with heterogeneous echotexture throughout the liver. 2. There is a large echogenic area near the neck of the gallbladder suggestive of a stone, but despite its large size, demonstrates no acoustic shadowing in any of the views. Taco Davidson MD CT Angiography 08/15/16 0000 Signed Impressions: Service Date/Time: Monday, August 15, 2016 02:33 - CONCLUSION: 1. No evidence for pulmonary embolism. 2. Multifocal consolidation greatest in the right lower lobe and associated adenopathy. Terry Estrada MD Objective Remarks GENERAL: 56 yo female currently on mechanical ventilation via tracheostomy SKIN: Warm and dry. Skin is flaky. Noted stage I to 2 decubitus ulcer\coccyx and back covered with Mepilex HEAD: Normocephalic. Atraumatic EYES: No scleral icterus. No injection or drainage. NECK: Neck is obese. Right subclavian hemodialysis catheters clean dry and intact. Tracheostomy site is clean dry and intact CARDIOVASCULAR: RRR. S1, S2. No S4. Without murmur RESPIRATORY: Diminished breath sounds throughout due to body habitus. GASTROINTESTINAL: Abdomen obese, soft, non-tender, hypoactive active bowel sounds. G-tube is clean dry and intact MUSCULOSKELETAL: 1+ edema BUE. Neuro: Awake alert oriented 3. Following commands moving upper and lower extremity spontaneously, though still weak. A/P Assessment and Plan Neuro/Psych: Acute toxic metabolic encephalopathy Critical care myopathy Agitated delirium- improving Minimize sedation Monitor neuro status. Fentanyl allergy On Seroquel 75 mg every 8 hours for agitation Melatonin 5mg po qHS for insomnia Acetaminophen for fever/pain Pulm: Acute on chronic hypercapnic and hypoxemic respiratory failure ARDS- resolved. Pneumonia community-acquired, now with HCAP with carbapenem-resistant pseudomonas and ESBL Klebsiella VAP. 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 T piece as tolerated ICU vent bundle Bronchodilator therapy every 6 hours and albuterol every 2 hours as needed Pulm has followed- Dr. Beck Gen surgery Dr. Ortega s/p s tracheostomy 09/15 Pulm toilet, trach care CV: Hypertension Dyslipidemia Elevated troponin - likely strain On Lopressor 50mg Q8 monitor HR and BP keep MAP>65mmHg As needed labetalol, hydralazine and Nitropaste for hypertension Echo 08/14 showed EF 65-70% mild AR/TR On Pravachol 20 mg a night for dyslipidemia Renal/: Acute kidney injury - requiring hemodialysis Dr. Tan -nephrology following. Hemodialysis Sunday//Sunday currently on hold. Tunneled cuff catheter discontinued 10/20 MIKE: ATN from sepsis syndrome and diminished renal perfusion; also aminoglycoside induced nephrotoxicity likely also contributing; possibly AIN -> per nephrology note Urine eosinophils negative. Renal ultrasound revealed no hydronephrosis Monitor renal function, I/O's, avoid nephrotoxins. Miller placed for accurate I's and O's GI: Elevated transaminases Cholelithiasis On TF Nepro's 45 cc an hour and Beneprotein 2 packs 3 times a day s/p PEG placement 09/01/[address] Garcia. Also patient passed swallow evaluation , however doesn't eat much po. Pepcid 10mg BID GI prophylaxis Having BM US liver: Steatosis and cholelithiasis. Repeat 09/08 revealed cholelithiasis with no acute signs of cholecystitis. ID: Pseudomonas pneumonia Funguria, Maribell glabrata and parapsilosis. ID following. Pertinent cultures blood and sputum cx 08/15- NG strep pneumonia and Legionella urinary Ag negative Blood cultures 08/28: NGTD C Diff negative 08/28. Lines changed 08/28. Sputum 08/30 - Pseudomonas Sputum 09/02 PSAE, resistant to carbapenem, intermediate to Levaquin. 09/07 - urine -Maribell Guilliermondii 09/07 - blood cultures 2 - no growth 09/09 - urine -strep viridans, Maribell parapsilosis 09/10 - blood cultures 2 -no growth 09/11 - broch washings -no growth to date 09/12 - urine -Maribell glabrata and parapsilosis 09/16 - blood cultures 2 - pending 09/16 - sputum -no growth 09/16 - urine -Maribell glabrata and parapsilosis 10/02 - blood cultures 2 - staph epi 10/02 - urine - ESBL positive Klebsiella 10/04 - blood cultures 2 -no growth 10/05 - blood cultures 2 -no growth 10/17 - blood cultures -no growth 10/17 - sputum -Klebsiella ESBL positive and Stenotrophomonas maltophilia 10/17 - urine -C glabrata 10/21/ 10/22 - urine - ESBL positive Klebsiella Zosyn previously discontinued secondary to rash Followed by Dr. Uribe. Patient asymptomatic. Dr. Eaton recommended Levaquin/ertapenem if fever arises/symptomatic. Dr. Eaton started ertapenem on 10/24 for ESBL positive Klebsiella and urine from 10/22. 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 10/14, pharmacy dosing currently at 12 mg daily. IV Heparin started due to subtherapeutic last PTT PTT on heparin drip currently therapeutic. Coumadin per pharmacy dosing. Endo: Diabetes mellitus Hypothyroidism on SSI (medium scale) for glycemic control On Synthroid 200mcg daily. TSH 1.37 GI prophylaxis-Protonix 40mg Q12 DVT - IV heparin until therapeutic on Coumadin Lines: Peripheral IV. - PEG 09/01/16 - Trach 09/15 - Right Permacath placed 09/29 Loree Marinelli, daughter (HCP): [phone] Rony Matthewzalone, significant other: [phone] Pulmonary following for trach. Discussed with the patient and the ICU nurse. Transfer to med/surg floor near the nursing station if poss as patient with trach. Cassi Reynolds MD Oct 31, 2016 08:15
[2016-10-31] MEDS ORDERED: QUET1TAB7 PO (08:28)
[2016-10-31] MEDS ORDERED: METO25TA3 G-TUBE (08:28)
[2016-10-31] MEDS ORDERED: DOCU100S PO (08:28)
[2016-10-31] MEDS ORDERED: COUM6TAB PO (08:28)
[2016-10-31] MEDS ORDERED: GNP5TAB6 PO (08:28)
[2016-10-31] MEDS ORDERED: FAMO40SU NG (08:28)
[2016-10-31] MEDS ORDERED: NITR0.4S SL (08:28)
[2016-10-31] MEDS ORDERED: PROT6POW G-TUBE (08:28)
[2016-10-31] MEDS ORDERED: HYOS0.1231 PO (08:28)
[2016-10-31] MEDS ORDERED: [UNRECOGNIZED DRUG - CODE] NEB (08:31)
[2016-10-31] MEDS ORDERED: ALBU0.08 NEB (08:32)
[2016-10-31] MEDS: BENEPROTEIN POWDER 1 PACK G-TUBE SCH ×3 (09:00→18:00)
[2016-10-31] MEDS: ARTIFICIAL TEARS OPTH SOLN 15 ML BTL EACH EYE SCH ×3 (09:00→18:00)
[2016-10-31] MEDS: POTASSIUM CHLORIDE 20 MEQ PWD PACKET NG SCH ×2 (09:00→19:42)
[2016-10-31] MEDS: DOCUSATE SODIUM 100 MG/10 ML UDC PO SCH ×2 (09:00→19:43)
[2016-10-31] MEDS: SODIUM CHLORIDE 0.9% FLUSH 10 ML FLUSH IV FLUSH SCH ×2 (09:00→19:41)
[2016-10-31] MEDS: EUCERIN CREAM 120 GM JAR TOPICAL SCH ×2 (09:00→19:43)
[2016-10-31] MEDS: SODIUM CHLORIDE 0.9% FLUSH 10 ML FLUSH IVF SCH (09:00)
[2016-10-31] MEDS: FAMOTIDINE 40 MG/5 ML LIQ 50 ML BTL NG SCH ×2 (09:41→19:42)
--- NOTE | 2016-10-31 12:18 | HHI.PR ---
Subjective Remarks On T Bar 28 % all the time .able to move arms better. On tube feeds. Now on PO liquids.Tolerating it well. Objective Vital Signs Date Time Temp Pulse Resp B/P Pulse Ox O2 Delivery O2 Flow Rate FiO2 10/31/16 10:00 82 10/31/16 08:00 89 10/31/16 08:00 94 Trach Collar 28 10/31/16 07:42 100 Trach Collar 6.00 35 10/31/16 06:00 86 10/31/16 04:00 98.2 88 20 137/75 90 10/31/16 04:00 90 Trach Collar 28 10/31/16 04:00 80 10/31/16 02:00 79 10/31/16 00:00 98.0 76 20 118/74 100 10/31/16 00:00 100 Trach Collar 28 10/31/16 00:00 76 10/30/16 22:16 96 Trach Collar 6.00 35 10/30/16 22:00 80 10/30/16 20:00 99 Trach Collar 28 10/30/16 20:00 98.4 89 22 129/76 98 10/30/16 20:00 89 10/30/16 18:00 87 10/30/16 17:05 96 T-piece 6.00 35 10/30/16 16:00 98.7 81 21 133/77 99 10/30/16 16:00 99 Trach Collar 28 10/30/16 16:00 81 10/30/16 14:00 93 I/O 10/30/16 10/30/16 10/30/16 10/31/16 10/31/16 10/31/16 07:00 15:00 23:00 07:00 15:00 23:00 Intake Total 227 ml 360 ml 100 ml 400 ml Output Total 650 ml 850 ml 700 ml 700 ml Balance -423 ml -490 ml -600 ml -300 ml Intake Oral 360 ml 100 ml 300 ml IV Total 107 ml Other 120 ml 100 ml Output Urine Total 650 ml 850 ml 700 ml 700 ml # Bowel Movements 1 Result Diagram: 10/30/16 0414 10/30/164 Objective Remarks This is an obese middle-aged white female who is alert HEENT: Head normocephalic.throat clear.Trach is In . Neck: No bruits, no thyroid enlargement, no lymphadenopathy.No JVD Chest: Decreased breath sounds. Few wheezes and occ crackles at bases . Heart: Heart sounds were regular. S1-S2 no murmur, no S3. Abdomen: Soft, benign. No masses, or tenderness. Bowel sounds are active. Extremities:min edema . Neuro :Moves all limbs.no deficits. Alert and talking. Assessment and Plan Assessment and Plan IMPRESSION 1. Acute hypercapnic respiratory failure.Resolving 2. Pulmonary edema. 3. Drug rash 4. Obstructive sleep apnea syndrome 5. Hypertension 6. Hypothyroidism. 7. MIKE Plan : 1. Cont on T Bar 28 % all the time 2. Trach toilet and suctioning. 3. Nebs qid , duoneb. 4. Transfer to Tele. 5. Use PM valve to talk. 6. PT and OT 7. Tube feeds at 50 CC 8. Po liquids as tolerated Abimael Beck MD Oct 31, 2016 12:18
[2016-10-31] MEDS: ACETAMINOPHEN 325 MG TAB PO PRN (13:56)
--- NOTE | 2016-10-31 17:21 | HHI.GIFU ---
Subjective Remarks Pt somnolent, does not want to wake up to talk to me. When asked if she was having abdominal pain, opened her eyes once and went back to sleep. Per RN there was complaint of PEG site pain and pt currently eating PO. (Maria Isabel Wayen) Objective Vitals I&O Vital Signs Date Time Temp Pulse Resp B/P Pulse Ox O2 Delivery O2 Flow Rate FiO2 10/31/16 16:00 82 10/31/16 16:00 97 Trach Collar 28 10/31/16 14:00 77 10/31/16 12:00 95 Trach Collar 28 10/31/16 12:00 85 10/31/16 10:00 82 10/31/16 08:00 89 10/31/16 08:00 94 Trach Collar 28 10/31/16 07:42 100 Trach Collar 6.00 35 10/31/16 06:00 86 10/31/16 04:00 98.2 88 20 137/75 90 10/31/16 04:00 90 Trach Collar 28 10/31/16 04:00 80 10/31/16 02:00 79 10/31/16 00:00 98.0 76 20 118/74 100 10/31/16 00:00 100 Trach Collar 28 10/31/16 00:00 76 10/30/16 22:16 96 Trach Collar 6.00 35 10/30/16 22:00 80 10/30/16 20:00 99 Trach Collar 28 10/30/16 20:00 98.4 89 22 129/76 98 10/30/16 20:00 89 10/30/16 18:00 87 I/O 10/30/16 10/30/16 10/30/16 10/31/16 10/31/16 10/31/16 07:00 15:00 23:00 07:00 15:00 23:00 Intake Total 227 ml 360 ml 100 ml 400 ml Output Total 650 ml 850 ml 700 ml 700 ml Balance -423 ml -490 ml -600 ml -300 ml Intake Oral 360 ml 100 ml 300 ml IV Total 107 ml Other 120 ml 100 ml Output Urine Total 650 ml 850 ml 700 ml 700 ml # Bowel Movements 1 Laboratory Laboratory Tests Test 10/31/16 04:47 Prothrombin Time 26.5 Prothromb Time International 2.3 Ratio Activated Partial 42.0 Thromboplast Time Imaging Last Impressions Chest X-Ray 10/31/16 0600 Signed Impressions: Service Date/Time: Monday, October 31, 2016 04:14 - CONCLUSION: Small area of consolidation in the left upper lobe stable from the previous study Leonides Mason MD Central Venous Line 10/20/16 0000 Signed Impressions: Service Date/Time: Thursday, October 20, 2016 00:00 - CONCLUSION: Uncomplicated Permcath removal. Didier Zhang MD Catheter Placement X-Ray 09/29/16 1223 Signed Impressions: Service Date/Time: Thursday, September 29, 2016 12:31 - CONCLUSION: Vas-Cath to PermCath exchange as detailed above. Taco Haas Jr., MD Renal Ultrasound 09/17/16 0000 Signed Impressions: Service Date/Time: Saturday, September 17, 2016 13:31 - CONCLUSION: Negative renal sonogram. Taco Davidson MD Upper Extremity Ultrasound 09/14/16 0000 Signed Impressions: Service Date/Time: August 08:32 - CONCLUSION: There is thrombus within the left subclavian and internal jugular veins. Danyel Escalante MD Lower Extremity Ultrasound 09/13/16 0000 Signed Impressions: Service Date/Time: Tuesday, September 13, 2016 22:33 - CONCLUSION: Normal examination. Leonides Mason MD Liver Ultrasound 09/08/16 0000 Signed Impressions: Service Date/Time: Thursday, September 08, 2016 08:45 - CONCLUSION: 1. Cholelithiasis with distended gallbladder. However, there are no associated findings present to diagnose acute cholecystitis. If there is persistent clinical concern for acute cholecystitis could evaluate for cystic duct obstruction with hepatobiliary scintigraphy. 2. Hepatomegaly with very heterogeneous echotexture and steatosis. Dejan Allison MD Gall Bladder Ultrasound 08/29/16 0000 Signed Impressions: Service Date/Time: Monday, August 29, 2016 15:21 - CONCLUSION: 1. Hepatomegaly with heterogeneous echotexture throughout the liver. 2. There is a large echogenic area near the neck of the gallbladder suggestive of a stone, but despite its large size, demonstrates no acoustic shadowing in any of the views. Taco Davidson MD CT Angiography 08/15/16 0000 Signed Impressions: Service Date/Time: Monday, August 15, 2016 02:33 - CONCLUSION: 1. No evidence for pulmonary embolism. 2. Multifocal consolidation greatest in the right lower lobe and associated adenopathy. Terry Estrada MD Physical Exam HEENT: Pupils equal and round. vent to trach CHEST: diminished breath sounds CARDIAC: RRR ABDOMEN: Soft, obese; bowel sounds hypoactive. Peg site clean, dry, no redness or drainage. 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 In ICU being treated for acute respiratory failure, CHF, pneumonia, hypothyroidism, and multiple electrolyte abnormalities. s/p peg tube placement, EGD showed erythematous gastritis. Per RN pt c/o PEG site pain but phys exam unremarkable. Pt is eating. Calorie count in progress. - GI bleed, Episode of rectal bleeding x 1. Hemoccult negative Hgb stable PLAN: - await calorie count -H/H stable,transfuse if needed - supportive care - monitor HH Patient seen and examined by Dr. Rosas and myself and this note is written on his behalf (Maria Isabel Wayne) Physician Comments Agree with the plan as above, will follow up with for further plan . (Jazz Rosas MD) Maria Isabel Wayne Oct 31, 2016 17:20 Jazz Rosas MD Nov 01, 2016 16:59
[2016-10-31] MEDS: WARFARIN SOD 6 MG TAB PO SCH (17:37)
[2016-10-31] MEDS: MELATONIN 5 MG TAB PO SCH (19:43)
[2016-10-31] MEDS: PRAVASTATIN SOD 20 MG TAB PO SCH (19:43)
[2016-10-31] MEDS: MORPHINE SULFATE 4 MG/ML INJ IV PRN (23:18)
[2016-10-31] MEDS: RESP: ALBUTEROL 2.5 MG/3 ML NEB (PRN) NEB (23:20)
[2016-11-01] VITALS (9 sets, daily range): BP systolic 124–134; BP diastolic 69–84; PULSE 78–96; RESP 18–22; TEMP 97.3–98.7; O2SAT 92–98
[2016-11-01] MEDS: CHLORHEXIDINE GLUCONATE 2 % 1 PACK (2 CLOTHS) TOP SCH (00:21)
[2016-11-01] MEDS: METOPROLOL TARTRATE 25 MG TAB G-TUBE SCH ×3 (05:05→21:50)
[2016-11-01] MEDS: QUEtiapine FUMARATE 25 MG TAB PO SCH ×3 (05:05→21:50)
[2016-11-01] MEDS: LEVOTHYROXINE SODIUM 200 MCG TAB PO SCH (05:05)
[2016-11-01] MEDS: diphenhydrAMINE HCL 25 MG CAP PO PRN (05:05)
[2016-11-01] MEDS: RESP: COLISTIN 150 MG VIAL NEB SCH ×3 (08:32→23:58)
[2016-11-01] MEDS: RESP: ALBUTEROL 2.5 MG/3 ML NEB (PRN) NEB ×2 (08:32→15:36)
[2016-11-01] MEDS: EUCERIN CREAM 120 GM JAR TOPICAL SCH ×2 (09:00→21:50)
[2016-11-01] MEDS: SODIUM CHLORIDE 0.9% FLUSH 10 ML FLUSH IVF SCH (09:00)
[2016-11-01] MEDS: BENEPROTEIN POWDER 1 PACK G-TUBE SCH ×3 (09:00→17:33)
[2016-11-01] MEDS: SODIUM CHLORIDE 0.9% FLUSH 10 ML FLUSH IV FLUSH SCH ×2 (09:00→21:52)
[2016-11-01] MEDS: POTASSIUM CHLORIDE 20 MEQ PWD PACKET NG SCH ×2 (09:00→21:52)
[2016-11-01] MEDS: ARTIFICIAL TEARS OPTH SOLN 15 ML BTL EACH EYE SCH ×3 (09:00→17:33)
[2016-11-01] MEDS: DOCUSATE SODIUM 100 MG/10 ML UDC PO SCH ×2 (09:25→21:49)
[2016-11-01] MEDS: SODIUM CHLORIDE 0.9% FLUSH 10 ML FLUSH IVF PRN (09:26)
[2016-11-01] MEDS: FAMOTIDINE 40 MG/5 ML LIQ 50 ML BTL NG SCH ×2 (09:26→21:00)
[2016-11-01 10:18] LABS: APTT (PATIENT) 44.7 SEC (24.3-30.1); INTERNATIONAL NORMALIZED RATIO 2.9 RATIO; PROTHROMBIN TIME - PATIENT 33.5 SEC (9.8-11.6)
--- NOTE | 2016-11-01 11:49 | HHI.PR ---
Subjective Remarks Patient in bed, coughing , she was suctione by the nurse at bedside. She has secretions. No fevr or chills. No wheezing. Says she is not sob. Appears in nad. Denies cp, sob, n/v/d/c. Objective Vitals Vital Signs Date Time Temp Pulse Resp B/P Pulse Ox O2 Delivery O2 Flow Rate FiO2 11/01/16 11:38 79 11/01/16 10:00 98 Trach Collar 28 11/01/16 08:37 97.3 78 22 124/83 97 11/01/16 08:36 96 T-piece 5.00 35 11/01/16 04:13 Trach Collar 6.00 28 11/01/16 04:00 98.0 92 18 134/75 92 11/01/16 00:36 Trach Collar 28 10/31/16 20:00 98 Trach Collar 28 10/31/16 20:00 98.3 83 22 139/85 98 10/31/16 20:00 83 10/31/16 19:35 100 Trach Collar 6.00 35 10/31/16 18:00 75 10/31/16 16:00 82 10/31/16 16:00 98.4 74 17 123/73 100 10/31/16 16:00 97 Trach Collar 28 10/31/16 14:56 15 10/31/16 14:00 77 10/31/16 12:00 95 Trach Collar 28 10/31/16 12:00 98.3 90 18 145/94 100 10/31/16 12:00 85 I/O 10/31/16 10/31/16 10/31/16 11/01/16 11/01/16 11/01/16 07:00 15:00 23:00 07:00 15:00 23:00 Intake Total 400 ml Output Total 700 ml 1400 ml 900 ml Balance -300 ml -1400 ml -900 ml Intake Oral 300 ml Other 100 ml Output Urine Total 700 ml 1400 ml 900 ml Result Diagram: 10/30/1641310/30/16413 Imaging Last Impressions Chest X-Ray 10/31/16 0600 Signed Impressions: Service Date/Time: Monday, October 31, 2016 04:14 - CONCLUSION: Small area of consolidation in the left upper lobe stable from the previous study Leonides Mason MD Central Venous Line 10/20/16 0000 Signed Impressions: Service Date/Time: Thursday, October 20, 2016 00:00 - CONCLUSION: Uncomplicated Permcath removal. Didier Zhang MD Catheter Placement X-Ray 09/29/16 1223 Signed Impressions: Service Date/Time: Thursday, September 29, 2016 12:31 - CONCLUSION: Vas-Cath to PermCath exchange as detailed above. Taco Haas Jr., MD Renal Ultrasound 09/17/16 0000 Signed Impressions: Service Date/Time: Saturday, September 17, 2016 13:31 - CONCLUSION: Negative renal sonogram. Taco Davidson MD Upper Extremity Ultrasound 09/14/16 0000 Signed Impressions: Service Date/Time: August 08:32 - CONCLUSION: There is thrombus within the left subclavian and internal jugular veins. Danyel Escalante MD Lower Extremity Ultrasound 09/13/16 0000 Signed Impressions: Service Date/Time: Tuesday, September 13, 2016 22:33 - CONCLUSION: Normal examination. Leonides Mason MD Liver Ultrasound 09/08/16 0000 Signed Impressions: Service Date/Time: Thursday, September 08, 2016 08:45 - CONCLUSION: 1. Cholelithiasis with distended gallbladder. However, there are no associated findings present to diagnose acute cholecystitis. If there is persistent clinical concern for acute cholecystitis could evaluate for cystic duct obstruction with hepatobiliary scintigraphy. 2. Hepatomegaly with very heterogeneous echotexture and steatosis. Dejan Allison MD Gall Bladder Ultrasound 08/29/16 0000 Signed Impressions: Service Date/Time: Monday, August 29, 2016 15:21 - CONCLUSION: 1. Hepatomegaly with heterogeneous echotexture throughout the liver. 2. There is a large echogenic area near the neck of the gallbladder suggestive of a stone, but despite its large size, demonstrates no acoustic shadowing in any of the views. Taco Davidson MD CT Angiography 08/15/16 0000 Signed Impressions: Service Date/Time: Monday, August 15, 2016 02:33 - CONCLUSION: 1. No evidence for pulmonary embolism. 2. Multifocal consolidation greatest in the right lower lobe and associated adenopathy. Terry Estrada MD Objective Remarks GENERAL: 56 yo female currently on mechanical ventilation via tracheostomy SKIN: Warm and dry. Skin is flaky. Noted stage I to 2 decubitus ulcer\coccyx and back covered with Mepilex HEAD: Normocephalic. Atraumatic EYES: No scleral icterus. No injection or drainage. NECK: Neck is obese. Right subclavian hemodialysis catheters clean dry and intact. Tracheostomy site is clean dry and intact CARDIOVASCULAR: RRR. S1, S2. No S4. Without murmur RESPIRATORY: Diminished breath sounds throughout due to body habitus. GASTROINTESTINAL: Abdomen obese, soft, non-tender, hypoactive active bowel sounds. G-tube is clean dry and intact MUSCULOSKELETAL: 1+ edema BUE. Neuro: Awake alert oriented 3. Following commands moving upper and lower extremity spontaneously, though still weak. A/P Assessment and Plan Neuro/Psych: Acute toxic metabolic encephalopathy Critical care myopathy Agitated delirium- improving Minimize sedation Monitor neuro status. Fentanyl allergy On Seroquel 75 mg every 8 hours for agitation Melatonin 5mg po qHS for insomnia Acetaminophen for fever/pain Pulm: Acute on chronic hypercapnic and hypoxemic respiratory failure ARDS- resolved. Pneumonia community-acquired, now with HCAP with carbapenem-resistant pseudomonas and ESBL Klebsiella VAP. 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 T piece as tolerated ICU vent bundle Bronchodilator therapy every 6 hours and albuterol every 2 hours as needed Pulm has followed- Dr. Beck Gen surgery Dr. Ortega s/p s tracheostomy 09/15 Pulm toilet, trach care CV: Hypertension Dyslipidemia Elevated troponin - likely strain On Lopressor 50mg Q8 monitor HR and BP keep MAP>65mmHg As needed labetalol, hydralazine and Nitropaste for hypertension Echo 08/14 showed EF 65-70% mild AR/TR On Pravachol 20 mg a night for dyslipidemia Renal/: Acute kidney injury - requiring hemodialysis Dr. Tan -nephrology following. Hemodialysis Sunday//Sunday currently on hold. Tunneled cuff catheter discontinued 10/20 MIKE: ATN from sepsis syndrome and diminished renal perfusion; also aminoglycoside induced nephrotoxicity likely also contributing; possibly AIN -> per nephrology note Urine eosinophils negative. Renal ultrasound revealed no hydronephrosis Monitor renal function, I/O's, avoid nephrotoxins. Miller placed for accurate I's and O's GI: Elevated transaminases Cholelithiasis On TF Nepro's 45 cc an hour and Beneprotein 2 packs 3 times a day s/p PEG placement 09/01/[address] Garcia. Also patient passed swallow evaluation , however doesn't eat much po. Pepcid 10mg BID GI prophylaxis Having BM US liver: Steatosis and cholelithiasis. Repeat 09/08 revealed cholelithiasis with no acute signs of cholecystitis. ID: Pseudomonas pneumonia Funguria, Maribell glabrata and parapsilosis. ID following. Pertinent cultures blood and sputum cx 08/15- NG strep pneumonia and Legionella urinary Ag negative Blood cultures 08/28: NGTD C Diff negative 08/28. Lines changed 08/28. Sputum 08/30 - Pseudomonas Sputum 09/02 PSAE, resistant to carbapenem, intermediate to Levaquin. 09/07 - urine -Maribell Guilliermondii 09/07 - blood cultures 2 - no growth 09/09 - urine -strep viridans, Maribell parapsilosis 09/10 - blood cultures 2 -no growth 09/11 - broch washings -no growth to date 09/12 - urine -Maribell glabrata and parapsilosis 09/16 - blood cultures 2 - pending 09/16 - sputum -no growth 09/16 - urine -Maribell glabrata and parapsilosis 10/02 - blood cultures 2 - staph epi 10/02 - urine - ESBL positive Klebsiella 10/04 - blood cultures 2 -no growth 10/05 - blood cultures 2 -no growth 10/17 - blood cultures -no growth 10/17 - sputum -Klebsiella ESBL positive and Stenotrophomonas maltophilia 10/17 - urine -C glabrata 10/21/ 10/22 - urine - ESBL positive Klebsiella Zosyn previously discontinued secondary to rash Followed by Dr. Uribe. Patient asymptomatic. Dr. Eaton recommended Levaquin/ertapenem if fever arises/symptomatic. Dr. Eaton started ertapenem on 10/24 for ESBL positive Klebsiella and urine from 10/22. Sepsis present on admission. Discussed with Dr uribe form ID. Patient with ESBL and very MDR PSAE tracheobronchitis. DC Ertapenem IV . 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 10/14, pharmacy dosing currently at 12 mg daily. IV Heparin started due to subtherapeutic last PTT PTT on heparin drip currently therapeutic. Coumadin per pharmacy dosing. Endo: Diabetes mellitus Hypothyroidism on SSI (medium scale) for glycemic control On Synthroid 200mcg daily. TSH 1.37 GI prophylaxis-Protonix 40mg Q12 DVT - IV heparin until therapeutic on Coumadin Passed swallow eval currently on PO diet and also tube feeding , will do calorie count, dietary consulted. Also reconsult GI as noted some redness around the feeding tube. Lines: Peripheral IV. - PEG 09/01/16 - Trach 09/15 - Right Permacath placed 09/29 Loree Marinelli, daughter (HCP): [phone] Rony Matthewzalone, significant other: [phone] Pulmonary following for trach. Discussed with the patient and the nurse. DC plan: will need rehab or LTAC. CM consult for DC plan. Cassi Reynolds MD Nov 01, 2016 11:49
[2016-11-01] MEDS: MORPHINE SULFATE 4 MG/ML INJ IV PRN (14:00)
[2016-11-01 14:16] LABS: HEMATOCRIT 27.4 % (35.0-46.0); MEAN CELL VOLUME 85.1 FL (80.0-100.0); MEAN CORPUSCULAR HEMOGLOBIN 27.8 PG (27.0-34.0); MEAN CORPUSCULAR HGB CONC 32.7 % (32.0-36.0); PLATELET COUNT 283 TH/MM3 (150-450); RED BLOOD COUNT 3.22 MIL/MM3 (4.00-5.30); RED CELL DISTRIBUTION WIDTH 19.2 % (11.6-17.2); REVIEW FLAG FINAL; WHITE BLOOD COUNT 12.4 TH/MM3 (4.0-11.0)
--- NOTE | 2016-11-01 15:10 | HHI.IDPN ---
Subjective Subjective Remarks Patient is admitted to ICU with respiratory failure, CHF, pneumonia, probable underlying COPD. Patient was intubated and placed on mechanical ventilation. NOt weaning and had trach done 09/15. Has been having fevers. s/p Rx for PSAE PNA and C glabrata UTI. ID was reconsulted for increased WBC and increased thick yellow secretions. remains on T-piece afebrile Secretions thinning up but still faint yellow. Antibiotics Colistin nebs Lines Line sites with no e.o infection. Past Medical History reviewed. Allergies: Coded Allergies: Fentanyl (Verified Adverse Reaction, Severe, rash, 09/21/16) *MDRO Multi-Drug Resistant Organism (Verified Adverse Reaction, Unknown, ) ESBL (urine & sputum)-10/02/16 ESBL (urine)-10/22/16 Objective . Vital Signs Date Time Temp Pulse Resp B/P Pulse Ox O2 Delivery O2 Flow Rate FiO2 11/01/16 11:56 98.3 92 22 130/69 96 11/01/16 11:38 79 11/01/16 10:00 98 Trach Collar 28 11/01/16 08:37 97.3 78 22 124/83 97 11/01/16 08:36 96 T-piece 5.00 35 11/01/16 04:13 Trach Collar 6.00 28 11/01/16 04:00 98.0 92 18 134/75 92 11/01/16 00:36 Trach Collar 28 10/31/16 20:00 98 Trach Collar 28 10/31/16 20:00 98.3 83 22 139/85 98 10/31/16 20:00 83 10/31/16 19:35 100 Trach Collar 6.00 35 10/31/16 18:00 75 10/31/16 16:00 82 10/31/16 16:00 98.4 74 17 123/73 100 10/31/16 16:00 97 Trach Collar 28 10/31/16 10/31/16 11/01/16 15:00 23:00 07:00 Output Total 1400 ml 900 ml Balance -1400 ml -900 ml Output Urine Total 1400 ml 900 ml . Laboratory Tests Test 11/01/16 08:00 White Blood Count 12.4 TH/MM3 Red Blood Count 3.22 MIL/MM3 Hemoglobin 9.0 GM/DL Hematocrit 27.4 % Mean Corpuscular Volume 85.1 FL Mean Corpuscular Hemoglobin 27.8 PG Mean Corpuscular Hemoglobin 32.7 % Concent Red Cell Distribution Width 19.2 % Platelet Count 283 TH/MM3 Mean Platelet Volume 7.3 FL Imaging Last Impressions Chest X-Ray 10/23/16 0600 Signed Impressions: Service Date/Time: Sunday, October 23, 2016 05:27 - CONCLUSION: Interval dialysis catheter removal. Slight interval worsening in aeration at the right lung base Dejan Cervantes MD Central Venous Line 10/20/16 0000 Signed Impressions: Service Date/Time: Thursday, October 20, 2016 00:00 - CONCLUSION: Uncomplicated Permcath removal. Didier Zhang MD Catheter Placement X-Ray 09/29/16 1223 Signed Impressions: Service Date/Time: Thursday, September 29, 2016 12:31 - CONCLUSION: Vas-Cath to PermCath exchange as detailed above. Taco Haas Jr., MD Renal Ultrasound 09/17/16 0000 Signed Impressions: Service Date/Time: Saturday, September 17, 2016 13:31 - CONCLUSION: Negative renal sonogram. Taco Davidson MD Upper Extremity Ultrasound 09/14/16 0000 Signed Impressions: Service Date/Time: August 08:32 - CONCLUSION: There is thrombus within the left subclavian and internal jugular veins. Danyel Escalante MD Lower Extremity Ultrasound 09/13/16 0000 Signed Impressions: Service Date/Time: Tuesday, September 13, 2016 22:33 - CONCLUSION: Normal examination. Leonides Mason MD Liver Ultrasound 09/08/16 0000 Signed Impressions: Service Date/Time: Thursday, September 08, 2016 08:45 - CONCLUSION: 1. Cholelithiasis with distended gallbladder. However, there are no associated findings present to diagnose acute cholecystitis. If there is persistent clinical concern for acute cholecystitis could evaluate for cystic duct obstruction with hepatobiliary scintigraphy. 2. Hepatomegaly with very heterogeneous echotexture and steatosis. Dejan Allison MD Gall Bladder Ultrasound 08/29/16 0000 Signed Impressions: Service Date/Time: Monday, August 29, 2016 15:21 - CONCLUSION: 1. Hepatomegaly with heterogeneous echotexture throughout the liver. 2. There is a large echogenic area near the neck of the gallbladder suggestive of a stone, but despite its large size, demonstrates no acoustic shadowing in any of the views. Taco Davidson MD CT Angiography 08/15/16 0000 Signed Impressions: Service Date/Time: Monday, August 15, 2016 02:33 - CONCLUSION: 1. No evidence for pulmonary embolism. 2. Multifocal consolidation greatest in the right lower lobe and associated adenopathy. Terry Estrada MD Physical Exam GENERAL: Morbidly obese patient, awake, NAD, on the vent SKIN: no rash HEAD: Atraumatic. Normocephalic. No temporal or scalp tenderness. EYES: Pupils equal round and reactive. No scleral icterus. Moist mucosa ENT: No nasal discharge. Dry oral mucosa NECK:Supple. Trach in place thick yellow secretions. CARDIOVASCULAR: Regular rate and rhythm RESPIRATORY: transmitted upper airway sounds GASTROINTESTINAL: Abdomen soft, obese, non-tender, nondistended. MUSCULOSKELETAL: Extremities without clubbing, cyanosis. Edema , trace NEUROLOGICAL: awake alert, communicates PIV with no evidence of infection : Miller in place with clear yellow urine. Assessment & Plan Remarks ESBL and very MDR PSAE tracheobronchitis. Morbid Obesity (BMI 45.8 kg/m2) Obstructive Sleep Apnea (supposed to be on CPAP at home and home oxygen 2L) Acute respiratory failure vent dependent. Acute metabolic encephalopathy: infection, meds. Thrombosis of cephalic vein. Renal insufficiency, HD on hold as Cr and UO improving. Recs: Continue Colistin nebs (stop date in chart) Follow clinically dw RN Will sign off please call back if any change in clinical condition or questions. I will be OOT from 11/02 to 11/05 please call center with any new issues. Terri Uribe MD Nov 01, 2016 15:10
--- NOTE | 2016-11-01 18:09 | HHI.PR ---
Subjective Remarks On T Bar 28 % all the time OOB in a chair . On tube feeds. Now on PO liquids.Tolerating it well.CXR stable Objective Vital Signs Date Time Temp Pulse Resp B/P Pulse Ox O2 Delivery O2 Flow Rate FiO2 11/01/16 16:24 98.7 88 22 129/84 95 11/01/16 11:56 98.3 92 22 130/69 96 11/01/16 11:38 79 11/01/16 10:00 98 Trach Collar 28 11/01/16 08:37 97.3 78 22 124/83 97 11/01/16 08:36 96 T-piece 5.00 35 11/01/16 04:13 Trach Collar 6.00 28 11/01/16 04:00 98.0 92 18 134/75 92 11/01/16 00:36 Trach Collar 28 10/31/16 20:00 98 Trach Collar 28 10/31/16 20:00 98.3 83 22 139/85 98 10/31/16 20:00 83 10/31/16 19:35 100 Trach Collar 6.00 35 I/O 10/31/16 10/31/16 10/31/16 11/01/16 11/01/16 11/01/16 07:00 15:00 23:00 07:00 15:00 23:00 Intake Total 400 ml 457 ml Output Total 700 ml 1400 ml 900 ml 800 ml Balance -300 ml -1400 ml -900 ml -800 ml 457 ml Intake Oral 300 ml 457 ml Other 100 ml Output Urine Total 700 ml 1400 ml 900 ml 800 ml Result Diagram: 11/01/16 0800 10/30/16 0414 Objective Remarks This is an obese middle-aged white female who is alert HEENT: Head normocephalic.throat clear.Trach is In . Neck: No bruits, no thyroid enlargement, no lymphadenopathy.No JVD Chest: Decreased breath sounds. and occ crackles at bases . Heart: Heart sounds were regular. S1-S2 no murmur, no S3. Abdomen: Soft, benign. No masses, or tenderness. Bowel sounds are active. Extremities:min edema . Neuro :Moves all limbs.no deficits. Alert and Oriented Assessment and Plan Assessment and Plan IMPRESSION 1. Acute hypercapnic respiratory failure.Resolving 2. Pulmonary edema. 3. Drug rash 4. Obstructive sleep apnea syndrome 5. Hypertension 6. Hypothyroidism. 7. MIKE Plan : 1. Cont on T Bar 28 % all the time 2. Trach toilet and suctioning. 3. Nebs qid , duoneb. 4. Rehab placement 5. Use PM valve to talk. 6. PT and OT 7. Tube feeds at 60 CC 8. Po liquids as tolerated 9. Up in chair daily. Abimael Beck MD Nov 01, 2016 18:09
[2016-11-01] MEDS: MELATONIN 5 MG TAB PO SCH (21:50)
[2016-11-01] MEDS: PRAVASTATIN SOD 20 MG TAB PO SCH (21:50)
[2016-11-02] VITALS (8 sets, daily range): BP systolic 110–170; BP diastolic 57–79; PULSE 80–93; RESP 18–22; TEMP 96.1–98.1; O2SAT 93–100
[2016-11-02] MEDS: CHLORHEXIDINE GLUCONATE 2 % 1 PACK (2 CLOTHS) TOP SCH ×2 (03:17→20:30)
[2016-11-02] MEDS: LEVOTHYROXINE SODIUM 200 MCG TAB PO SCH (06:05)
[2016-11-02] MEDS: QUEtiapine FUMARATE 25 MG TAB PO SCH ×3 (06:05→20:29)
[2016-11-02] MEDS: METOPROLOL TARTRATE 25 MG TAB G-TUBE SCH ×3 (06:05→20:29)
[2016-11-02 07:28] LABS: HEMATOCRIT 30.4 % (35.0-46.0); MEAN CELL VOLUME 85.7 FL (80.0-100.0); MEAN CORPUSCULAR HGB CONC 31.5 % (32.0-36.0); PLATELET COUNT 273 TH/MM3 (150-450); RED BLOOD COUNT 3.55 MIL/MM3 (4.00-5.30); RED CELL DISTRIBUTION WIDTH 19.5 % (11.6-17.2); REVIEW FLAG FINAL; WHITE BLOOD COUNT 11.9 TH/MM3 (4.0-11.0)
[2016-11-02 07:37] LABS: PROTHROMBIN TIME - PATIENT 34.3 SEC (9.8-11.6)
[2016-11-02] MEDS: RESP: COLISTIN 150 MG VIAL NEB SCH ×2 (08:08→15:46)
[2016-11-02] MEDS: ARTIFICIAL TEARS OPTH SOLN 15 ML BTL EACH EYE SCH ×3 (09:38→17:39)
[2016-11-02] MEDS: SODIUM CHLORIDE 0.9% FLUSH 10 ML FLUSH IV FLUSH SCH ×2 (09:38→20:28)
[2016-11-02] MEDS: FAMOTIDINE 40 MG/5 ML LIQ 50 ML BTL NG SCH ×2 (09:38→20:28)
[2016-11-02] MEDS: POTASSIUM CHLORIDE 20 MEQ PWD PACKET NG SCH ×2 (09:38→20:28)
[2016-11-02] MEDS: EUCERIN CREAM 120 GM JAR TOPICAL SCH ×2 (09:39→20:30)
[2016-11-02] MEDS: DOCUSATE SODIUM 100 MG/10 ML UDC PO SCH ×2 (09:39→20:29)
[2016-11-02] MEDS: BENEPROTEIN POWDER 1 PACK G-TUBE SCH ×3 (09:42→17:39)
--- NOTE | 2016-11-02 09:46 | HHI.PR ---
Subjective Remarks Says she has less secretions. Able to eat per nurse she has preferential foods and she is eating well foods that she likes. No fever or chills. Seen by Dr Tyshawn godfrey will downsize trach. Objective Vitals Vital Signs Date Time Temp Pulse Resp B/P Pulse Ox O2 Delivery O2 Flow Rate FiO2 11/02/16 08:49 96.6 80 18 112/69 95 11/02/16 08:08 100 T-piece 4.00 28 11/02/16 04:00 96.1 85 20 112/66 99 11/02/16 00:00 98.1 84 22 140/78 97 11/01/16 21:45 97 T-piece 6.00 28 11/01/16 20:00 98.4 95 20 125/77 94 11/01/16 20:00 Trach Collar 28 11/01/16 20:00 96 11/01/16 16:24 98.7 88 22 129/84 95 11/01/16 11:56 98.3 92 22 130/69 96 11/01/16 11:38 79 11/01/16 10:00 98 Trach Collar 28 I/O 11/01/16 11/01/16 11/01/16 11/02/16 11/02/16 11/02/16 07:00 15:00 23:00 07:00 15:00 23:00 Intake Total 457 ml Output Total 900 ml 800 ml 2250 ml Balance -900 ml -800 ml 457 ml -2250 ml Intake Oral 457 ml Output Urine Total 900 ml 800 ml 2250 ml Result Diagram: 11/02/16 0654 10/30/16 0414 Imaging Last Impressions Chest X-Ray 10/31/16 0600 Signed Impressions: Service Date/Time: Monday, October 31, 2016 04:14 - CONCLUSION: Small area of consolidation in the left upper lobe stable from the previous study Leonides Mason MD Central Venous Line 10/20/16 0000 Signed Impressions: Service Date/Time: Thursday, October 20, 2016 00:00 - CONCLUSION: Uncomplicated Permcath removal. Didier Zhang MD Catheter Placement X-Ray 09/29/16 1223 Signed Impressions: Service Date/Time: Thursday, September 29, 2016 12:31 - CONCLUSION: Vas-Cath to PermCath exchange as detailed above. Taoc Haas Jr., MD Renal Ultrasound 09/17/16 0000 Signed Impressions: Service Date/Time: Saturday, September 17, 2016 13:31 - CONCLUSION: Negative renal sonogram. Taco Davidson MD Upper Extremity Ultrasound 09/14/16 0000 Signed Impressions: Service Date/Time: August 08:32 - CONCLUSION: There is thrombus within the left subclavian and internal jugular veins. Danyel Escalante MD Lower Extremity Ultrasound 09/13/16 0000 Signed Impressions: Service Date/Time: Tuesday, September 13, 2016 22:33 - CONCLUSION: Normal examination. Leonides Mason MD Liver Ultrasound 09/08/16 0000 Signed Impressions: Service Date/Time: Thursday, September 08, 2016 08:45 - CONCLUSION: 1. Cholelithiasis with distended gallbladder. However, there are no associated findings present to diagnose acute cholecystitis. If there is persistent clinical concern for acute cholecystitis could evaluate for cystic duct obstruction with hepatobiliary scintigraphy. 2. Hepatomegaly with very heterogeneous echotexture and steatosis. Dejan Allison MD Gall Bladder Ultrasound 08/29/16 0000 Signed Impressions: Service Date/Time: Monday, August 29, 2016 15:21 - CONCLUSION: 1. Hepatomegaly with heterogeneous echotexture throughout the liver. 2. There is a large echogenic area near the neck of the gallbladder suggestive of a stone, but despite its large size, demonstrates no acoustic shadowing in any of the views. Taco Davidson MD CT Angiography 08/15/16 0000 Signed Impressions: Service Date/Time: Monday, August 15, 2016 02:33 - CONCLUSION: 1. No evidence for pulmonary embolism. 2. Multifocal consolidation greatest in the right lower lobe and associated adenopathy. Terry Estrada MD Objective Remarks GENERAL: 56 yo female currently on mechanical ventilation via tracheostomy SKIN: Warm and dry. Skin is flaky. Noted stage I to 2 decubitus ulcer\coccyx and back covered with Mepilex HEAD: Normocephalic. Atraumatic EYES: No scleral icterus. No injection or drainage. NECK: Neck is obese. Right subclavian hemodialysis catheters clean dry and intact. Tracheostomy site is clean dry and intact CARDIOVASCULAR: RRR. S1, S2. No S4. Without murmur RESPIRATORY: Diminished breath sounds throughout due to body habitus. GASTROINTESTINAL: Abdomen obese, soft, non-tender, hypoactive active bowel sounds. G-tube is clean dry and intact MUSCULOSKELETAL: 1+ edema BUE. Neuro: Awake alert oriented 3. Following commands moving upper and lower extremity spontaneously, though still weak. A/P Assessment and Plan Neuro/Psych: Acute toxic metabolic encephalopathy Critical care myopathy Agitated delirium- improving Minimize sedation Monitor neuro status. Fentanyl allergy On Seroquel 75 mg every 8 hours for agitation Melatonin 5mg po qHS for insomnia Acetaminophen for fever/pain Pulm: Acute on chronic hypercapnic and hypoxemic respiratory failure ARDS- resolved. Pneumonia community-acquired, now with HCAP with carbapenem-resistant pseudomonas and ESBL Klebsiella VAP. 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 T piece as tolerated ICU vent bundle Bronchodilator therapy every 6 hours and albuterol every 2 hours as needed Pulm has followed- Dr. Beck Gen surgery Dr. Ortega s/p s tracheostomy 09/15 Pulm toilet, trach care CV: Hypertension Dyslipidemia Elevated troponin - likely strain On Lopressor 50mg Q8 monitor HR and BP keep MAP>65mmHg As needed labetalol, hydralazine and Nitropaste for hypertension Echo 08/14 showed EF 65-70% mild AR/TR On Pravachol 20 mg a night for dyslipidemia Renal/: Acute kidney injury - requiring hemodialysis Dr. Tan -nephrology following. Hemodialysis Sunday//Sunday currently on hold. Tunneled cuff catheter discontinued 10/20 MIKE: ATN from sepsis syndrome and diminished renal perfusion; also aminoglycoside induced nephrotoxicity likely also contributing; possibly AIN -> per nephrology note Urine eosinophils negative. Renal ultrasound revealed no hydronephrosis Monitor renal function, I/O's, avoid nephrotoxins. Miller placed for accurate I's and O's GI: Elevated transaminases Cholelithiasis On TF Nepro's 45 cc an hour and Beneprotein 2 packs 3 times a day s/p PEG placement 09/01/[address] Jose. Also patient passed swallow evaluation , however doesn't eat much po. Pepcid 10mg BID GI prophylaxis Having BM US liver: Steatosis and cholelithiasis. Repeat 09/08 revealed cholelithiasis with no acute signs of cholecystitis. ID: Pseudomonas pneumonia Funguria, Maribell glabrata and parapsilosis. ID following. Pertinent cultures blood and sputum cx 08/15- NG strep pneumonia and Legionella urinary Ag negative Blood cultures 08/28: NGTD C Diff negative 08/28. Lines changed 08/28. Sputum 08/30 - Pseudomonas Sputum 09/02 PSAE, resistant to carbapenem, intermediate to Levaquin. 09/07 - urine -Maribell Guilliermondii 09/07 - blood cultures 2 - no growth 09/09 - urine -strep viridans, Maribell parapsilosis 09/10 - blood cultures 2 -no growth 09/11 - broch washings -no growth to date 09/12 - urine -Maribell glabrata and parapsilosis 09/16 - blood cultures 2 - pending 09/16 - sputum -no growth 09/16 - urine -Maribell glabrata and parapsilosis 10/02 - blood cultures 2 - staph epi 10/02 - urine - ESBL positive Klebsiella 10/04 - blood cultures 2 -no growth 10/05 - blood cultures 2 -no growth 10/17 - blood cultures -no growth 10/17 - sputum -Klebsiella ESBL positive and Stenotrophomonas maltophilia 10/17 - urine -C glabrata 10/21/ 10/22 - urine - ESBL positive Klebsiella Zosyn previously discontinued secondary to rash Followed by Dr. Uribe. Patient asymptomatic. Dr. Eaton recommended Levaquin/ertapenem if fever arises/symptomatic. Dr. Eaton started ertapenem on 10/24 for ESBL positive Klebsiella and urine from 10/22. Sepsis present on admission. Discussed with Dr uribe form ID. Patient with ESBL and very MDR PSAE tracheobronchitis. DC Ertapenem IV . 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 10/14, pharmacy dosing currently at 12 mg daily. IV Heparin started due to subtherapeutic last PTT PTT on heparin drip currently therapeutic. Coumadin per pharmacy dosing. Endo: Diabetes mellitus Hypothyroidism on SSI (medium scale) for glycemic control On Synthroid 200mcg daily. TSH 1.37 GI prophylaxis-Protonix 40mg Q12 DVT - IV heparin until therapeutic on Coumadin Passed swallow eval currently on PO diet and also tube feeding , will do calorie count, dietary consulted. Also reconsult GI as noted some redness around the feeding tube. Lines: Peripheral IV. - PEG 09/01/16 - Trach 09/15 - Right Permacath placed 09/29 Loree Marinelli, daughter (HCP): [phone] Rony Marinelli, significant other: [phone] Pulmonary following for trach. Plan to downsize trach. Discussed with the patient and the nurse. DC plan: will need rehab or LTAC. CM consult for DC plan. Cassi Reynolds MD Nov 02, 2016 09:46
[2016-11-02] MEDS: SODIUM CHLORIDE 0.9% FLUSH 10 ML FLUSH IVF SCH (10:26)
--- NOTE | 2016-11-02 12:46 | HHI.PR ---
Subjective Remarks On T Bar 28 % all the time . OOB in a chair . On tube feeds. Now on PO liquids. Moves arms and feet Objective Vital Signs Date Time Temp Pulse Resp B/P Pulse Ox O2 Delivery O2 Flow Rate FiO2 11/02/16 12:11 97.9 93 18 126/75 93 11/02/16 09:40 Blow By 28 T-Piece Humidified 11/02/16 08:49 96.6 80 18 112/69 95 11/02/16 08:08 100 T-piece 4.00 28 11/02/16 04:00 96.1 85 20 112/66 99 11/02/16 00:00 98.1 84 22 140/78 97 11/01/16 21:45 97 T-piece 6.00 28 11/01/16 20:00 98.4 95 20 125/77 94 11/01/16 20:00 Trach Collar 28 11/01/16 20:00 96 11/01/16 16:24 98.7 88 22 129/84 95 I/O 11/01/16 11/01/16 11/01/16 11/02/16 11/02/16 11/02/16 07:00 15:00 23:00 07:00 15:00 23:00 Intake Total 457 ml Output Total 900 ml 800 ml 2250 ml Balance -900 ml -800 ml 457 ml -2250 ml Intake Oral 457 ml Output Urine Total 900 ml 800 ml 2250 ml Result Diagram: 11/02/16 0654 10/30/16 0414 Objective Remarks This is an obese middle-aged white female who is alert HEENT: Head normocephalic.throat clear.Trach is In . Neck: No bruits, no thyroid enlargement, no lymphadenopathy.No JVD Chest: Decreased breath sounds. and few wheezes. Heart: Heart sounds were regular. S1-S2 no murmur, no S3. Abdomen: Soft, benign. No masses, or tenderness. Bowel sounds are active. Extremities:min edema . Neuro :Moves all limbs.no deficits. Alert and Oriented Assessment and Plan Assessment and Plan IMPRESSION 1. Acute hypercapnic respiratory failure.Resolving 2. Pulmonary edema. 3. Drug rash 4. Obstructive sleep apnea syndrome 5. Hypertension 6. Hypothyroidism. 7. MIKE Plan : 1. Cont on T Bar 28 % all the time 2. Trach toilet and suctioning. 3. Nebs qid , duoneb. 4. Rehab placement 5. Use PM valve to talk. 6. CXR Sunday 7. Tube feeds at 60 CC 8. Po liquids as tolerated 9. Up in chair daily. Abimael Beck MD Nov 02, 2016 12:46
--- NOTE | 2016-11-02 17:22 | HHI.GIFU ---
Subjective Remarks Pt resting comfortably in bed, in no apparent distress. When asked about pain she indicates no abdominal pain, her G tube is a little sore but better than it was, and she is trying to eat. NO n/v. (Maria Isabel Wayne) Objective Vitals I&O Vital Signs Date Time Temp Pulse Resp B/P Pulse Ox O2 Delivery O2 Flow Rate FiO2 11/02/16 16:40 97.3 90 18 170/79 100 11/02/16 12:50 80 11/02/16 12:11 97.9 93 18 126/75 93 11/02/16 09:40 Blow By 28 T-Piece Humidified 11/02/16 08:49 96.6 80 18 112/69 95 11/02/16 08:08 100 T-piece 4.00 28 11/02/16 04:00 96.1 85 20 112/66 99 11/02/16 00:00 98.1 84 22 140/78 97 11/01/16 21:45 97 T-piece 6.00 28 11/01/16 20:00 98.4 95 20 125/77 94 11/01/16 20:00 Trach Collar 28 11/01/16 20:00 96 I/O 11/01/16 11/01/16 11/01/16 11/02/16 11/02/16 11/02/16 07:00 15:00 23:00 07:00 15:00 23:00 Intake Total 457 ml 240 ml Output Total 900 ml 800 ml 2250 ml 575 ml Balance -900 ml -800 ml 457 ml -2250 ml -335 ml Intake Oral 457 ml 240 ml Output Urine Total 900 ml 800 ml 2250 ml 575 ml Laboratory Laboratory Tests Test 11/02/16 06:54 White Blood Count 11.9 Red Blood Count 3.55 Hemoglobin 9.6 Hematocrit 30.4 Mean Corpuscular Volume 85.7 Mean Corpuscular Hemoglobin 27.0 Mean Corpuscular Hemoglobin 31.5 Concent Red Cell Distribution Width 19.5 Platelet Count 273 Mean Platelet Volume 7.1 Prothrombin Time 34.3 Prothromb Time International 3.0 Ratio Activated Partial 46.0 Thromboplast Time Physical Exam HEENT: Pupils equal and round. trach CHEST: diminished breath sounds CARDIAC: RRR ABDOMEN: Soft, obese; bowel sounds hypoactive. Peg site clean, dry, no redness or drainage. Area around PEG palpated w/ no pain. 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 In ICU being treated for acute respiratory failure, CHF, pneumonia, hypothyroidism, and multiple electrolyte abnormalities. s/p peg tube placement, EGD showed erythematous gastritis. Pt denies pain on palpation PEG, says it feels better. Pt is eating. Calorie count in progress. - GI bleed, Episode of rectal bleeding x 1. Hemoccult negative Hgb stable PLAN: - await calorie count -H/H stable,transfuse if needed - supportive care - monitor HH Patient seen and examined by Dr. Rosas and myself and this note is written on his behalf (Maria Isabel Wayne) Physician Comments Seen and examined, plan as above. (Jazz Rosas MD) Maria Isabel Wayne Nov 02, 2016 17:22 Jazz Rosas MD Nov 02, 2016 23:56
[2016-11-02] MEDS: ACETAMINOPHEN 325 MG TAB PO PRN (17:39)
[2016-11-02] MEDS: MELATONIN 5 MG TAB PO SCH (20:29)
[2016-11-02] MEDS: PRAVASTATIN SOD 20 MG TAB PO SCH (20:29)
[2016-11-03] VITALS (8 sets, daily range): BP systolic 110–157; BP diastolic 65–86; PULSE 77–99; RESP 16–22; TEMP 97–99; O2SAT 20–97
[2016-11-03] MEDS: HYOSCYAMINE SOLN 0.125 MG/ML 15 ML BTL PO PRN (04:31)
[2016-11-03] MEDS: LEVOTHYROXINE SODIUM 200 MCG TAB PO SCH (04:51)
[2016-11-03] MEDS: QUEtiapine FUMARATE 25 MG TAB PO SCH ×3 (04:52→21:11)
[2016-11-03] MEDS: METOPROLOL TARTRATE 25 MG TAB G-TUBE SCH ×3 (04:52→21:11)
[2016-11-03 08:25] LABS: APTT (PATIENT) 43.3 SEC (24.3-30.1); INTERNATIONAL NORMALIZED RATIO 2.3 RATIO; PROTHROMBIN TIME - PATIENT 26.2 SEC (9.8-11.6)
[2016-11-03] MEDS: SODIUM CHLORIDE 0.9% FLUSH 10 ML FLUSH IV FLUSH SCH ×2 (09:00→21:00)
[2016-11-03] MEDS: POTASSIUM CHLORIDE 20 MEQ PWD PACKET NG SCH ×2 (09:00→21:00)
[2016-11-03] MEDS: BENEPROTEIN POWDER 1 PACK G-TUBE SCH (09:00)
[2016-11-03] MEDS: RESP: COLISTIN 150 MG VIAL NEB SCH ×2 (09:32→16:11)
[2016-11-03] MEDS: DOCUSATE SODIUM 100 MG/10 ML UDC PO SCH ×2 (09:45→21:11)
[2016-11-03] MEDS: MORPHINE SULFATE 4 MG/ML INJ IV PRN ×2 (11:38→21:45)
[2016-11-03] MEDS: ARTIFICIAL TEARS OPTH SOLN 15 ML BTL EACH EYE SCH ×3 (11:44→18:00)
--- NOTE | 2016-11-03 13:15 | HHI.PR ---
Subjective Remarks Patient says she has some secretions. No n/v/d/c. Says she is able to eat PO. Brooks count will be done today so far patient is eating 75-100 % of her meals. Pulm following for trach , plan to downsize Objective Vitals Vital Signs Date Time Temp Pulse Resp B/P Pulse Ox O2 Delivery O2 Flow Rate FiO2 11/03/16 12:22 98.1 91 16 120/74 97 11/03/16 09:33 97 T-piece 6.00 28 11/03/16 09:11 97.5 77 16 114/70 96 11/03/16 04:00 97.0 81 20 110/65 95 11/03/16 00:00 98.0 91 22 115/76 20 11/02/16 20:00 96.2 91 20 110/57 98 11/02/16 20:00 86 11/02/16 19:15 T-Piece 28 11/02/16 16:40 97.3 90 18 170/79 100 I/O 11/02/16 11/02/16 11/02/16 11/03/16 11/03/16 11/03/16 07:00 15:00 23:00 07:00 15:00 23:00 Intake Total 240 ml Output Total 2250 ml 575 ml 1100 ml Balance -2250 ml -335 ml -1100 ml Intake Oral 240 ml Output Urine Total 2250 ml 575 ml 1100 ml Result Diagram: 11/02/16 0654 10/30/16 0414 Imaging Last Impressions Chest X-Ray 10/31/16 0600 Signed Impressions: Service Date/Time: Monday, October 31, 2016 04:14 - CONCLUSION: Small area of consolidation in the left upper lobe stable from the previous study Leonides Mason MD Central Venous Line 10/20/16 0000 Signed Impressions: Service Date/Time: Thursday, October 20, 2016 00:00 - CONCLUSION: Uncomplicated Permcath removal. Didier Zhang MD Catheter Placement X-Ray 09/29/16 1223 Signed Impressions: Service Date/Time: Thursday, September 29, 2016 12:31 - CONCLUSION: Vas-Cath to PermCath exchange as detailed above. Taco Haas Jr., MD Renal Ultrasound 09/17/16 0000 Signed Impressions: Service Date/Time: Saturday, September 17, 2016 13:31 - CONCLUSION: Negative renal sonogram. Taco Davidson MD Upper Extremity Ultrasound 09/14/16 0000 Signed Impressions: Service Date/Time: August 08:32 - CONCLUSION: There is thrombus within the left subclavian and internal jugular veins. Danyel Escalante MD Lower Extremity Ultrasound 09/13/16 0000 Signed Impressions: Service Date/Time: Tuesday, September 13, 2016 22:33 - CONCLUSION: Normal examination. Leonides Mason MD Liver Ultrasound 09/08/16 0000 Signed Impressions: Service Date/Time: Thursday, September 08, 2016 08:45 - CONCLUSION: 1. Cholelithiasis with distended gallbladder. However, there are no associated findings present to diagnose acute cholecystitis. If there is persistent clinical concern for acute cholecystitis could evaluate for cystic duct obstruction with hepatobiliary scintigraphy. 2. Hepatomegaly with very heterogeneous echotexture and steatosis. Dejan Allison MD Gall Bladder Ultrasound 08/29/16 0000 Signed Impressions: Service Date/Time: Monday, August 29, 2016 15:21 - CONCLUSION: 1. Hepatomegaly with heterogeneous echotexture throughout the liver. 2. There is a large echogenic area near the neck of the gallbladder suggestive of a stone, but despite its large size, demonstrates no acoustic shadowing in any of the views. Taco Davidson MD CT Angiography 08/15/16 0000 Signed Impressions: Service Date/Time: Monday, August 15, 2016 02:33 - CONCLUSION: 1. No evidence for pulmonary embolism. 2. Multifocal consolidation greatest in the right lower lobe and associated adenopathy. Terry Estrada MD Objective Remarks GENERAL: 56 yo female currently on mechanical ventilation via tracheostomy SKIN: Warm and dry. Skin is flaky. Noted stage I to 2 decubitus ulcer\coccyx and back covered with Mepilex HEAD: Normocephalic. Atraumatic EYES: No scleral icterus. No injection or drainage. NECK: Neck is obese. Right subclavian hemodialysis catheters clean dry and intact. Tracheostomy site is clean dry and intact CARDIOVASCULAR: RRR. S1, S2. No S4. Without murmur RESPIRATORY: Diminished breath sounds throughout due to body habitus. GASTROINTESTINAL: Abdomen obese, soft, non-tender, hypoactive active bowel sounds. G-tube is clean dry and intact MUSCULOSKELETAL: 1+ edema BUE. Neuro: Awake alert oriented 3. Following commands moving upper and lower extremity spontaneously, though still weak. A/P Assessment and Plan Neuro/Psych: Acute toxic metabolic encephalopathy Critical care myopathy Agitated delirium- improving Minimize sedation Monitor neuro status. Fentanyl allergy On Seroquel 75 mg every 8 hours for agitation Melatonin 5mg po qHS for insomnia Acetaminophen for fever/pain Pulm: Acute on chronic hypercapnic and hypoxemic respiratory failure ARDS- resolved. Pneumonia community-acquired, now with HCAP with carbapenem-resistant pseudomonas and ESBL Klebsiella VAP. 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 T piece as tolerated ICU vent bundle Bronchodilator therapy every 6 hours and albuterol every 2 hours as needed Pulm has followed- Dr. Beck Gen surgery Dr. Ortega s/p s tracheostomy 09/15 Pulm toilet, trach care CV: Hypertension Dyslipidemia Elevated troponin - likely strain On Lopressor 50mg Q8 monitor HR and BP keep MAP>65mmHg As needed labetalol, hydralazine and Nitropaste for hypertension Echo 08/14 showed EF 65-70% mild AR/TR On Pravachol 20 mg a night for dyslipidemia Renal/: Acute kidney injury - requiring hemodialysis Dr. Tan -nephrology following. Hemodialysis Sunday//Sunday currently on hold. Tunneled cuff catheter discontinued 10/20 MIKE: ATN from sepsis syndrome and diminished renal perfusion; also aminoglycoside induced nephrotoxicity likely also contributing; possibly AIN -> per nephrology note Urine eosinophils negative. Renal ultrasound revealed no hydronephrosis Monitor renal function, I/O's, avoid nephrotoxins. Miller placed for accurate I's and O's GI: Elevated transaminases Cholelithiasis On TF Nepro's 45 cc an hour and Beneprotein 2 packs 3 times a day s/p PEG placement 09/01/[address] Garcia. Also patient passed swallow evaluation , however doesn't eat much po. Pepcid 10mg BID GI prophylaxis Having BM US liver: Steatosis and cholelithiasis. Repeat 09/08 revealed cholelithiasis with no acute signs of cholecystitis. ID: Pseudomonas pneumonia Funguria, Maribell glabrata and parapsilosis. ID following. Pertinent cultures blood and sputum cx 08/15- NG strep pneumonia and Legionella urinary Ag negative Blood cultures 08/28: NGTD C Diff negative 08/28. Lines changed 08/28. Sputum 08/30 - Pseudomonas Sputum 09/02 PSAE, resistant to carbapenem, intermediate to Levaquin. 09/07 - urine -Maribell Guilliermondii 09/07 - blood cultures 2 - no growth 09/09 - urine -strep viridans, Maribell parapsilosis 09/10 - blood cultures 2 -no growth 09/11 - broch washings -no growth to date 09/12 - urine -Maribell glabrata and parapsilosis 09/16 - blood cultures 2 - pending 09/16 - sputum -no growth 09/16 - urine -Maribell glabrata and parapsilosis 10/02 - blood cultures 2 - staph epi 10/02 - urine - ESBL positive Klebsiella 10/04 - blood cultures 2 -no growth 10/05 - blood cultures 2 -no growth 10/17 - blood cultures -no growth 10/17 - sputum -Klebsiella ESBL positive and Stenotrophomonas maltophilia 10/17 - urine -C glabrata 10/21/ 10/22 - urine - ESBL positive Klebsiella Zosyn previously discontinued secondary to rash Followed by Dr. Uribe. Patient asymptomatic. Dr. Eaton recommended Levaquin/ertapenem if fever arises/symptomatic. Dr. Eaton started ertapenem on 10/24 for ESBL positive Klebsiella and urine from 10/22. Sepsis present on admission. Discussed with Dr uribe form ID. Patient with ESBL and very MDR PSAE tracheobronchitis. DC Ertapenem IV . 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 10/14, pharmacy dosing currently at 12 mg daily. IV Heparin started due to subtherapeutic last PTT PTT on heparin drip currently therapeutic. Coumadin per pharmacy dosing. Endo: Diabetes mellitus Hypothyroidism on SSI (medium scale) for glycemic control On Synthroid 200mcg daily. TSH 1.37 GI prophylaxis-Protonix 40mg Q12 DVT - IV heparin until therapeutic on Coumadin Passed swallow eval currently on PO diet and also tube feeding , will do calorie count, dietary consulted. Also reconsult GI as noted some redness around the feeding tube. Lines: Peripheral IV. - PEG 09/01/16 - Trach 09/15 - Right Permacath placed 09/29 Loree Marinelli, daughter (HCP): [phone] Rony Marinelli, significant other: [phone] Pulmonary following for trach. Plan to downsize trach. Discussed with the patient and the nurse. DC plan: will need rehab or LTAC. CM consult for DC plan. Cassi Reynolds MD Nov 03, 2016 13:15
--- NOTE | 2016-11-03 14:22 | HHI.GIFU ---
Subjective Remarks Pt in chair. Indicates no pain, n/v. SHe is eating. (Maria Isabel Wayne) Objective Vitals I&O Vital Signs Date Time Temp Pulse Resp B/P Pulse Ox O2 Delivery O2 Flow Rate FiO2 11/03/16 12:22 98.1 91 16 120/74 97 11/03/16 09:33 97 T-piece 6.00 28 11/03/16 09:11 97.5 77 16 114/70 96 11/03/16 04:00 97.0 81 20 110/65 95 11/03/16 00:00 98.0 91 22 115/76 20 11/02/16 20:00 96.2 91 20 110/57 98 11/02/16 20:00 86 11/02/16 19:15 T-Piece 28 11/02/16 16:40 97.3 90 18 170/79 100 I/O 11/02/16 11/02/16 11/02/16 11/03/16 11/03/16 11/03/16 07:00 15:00 23:00 07:00 15:00 23:00 Intake Total 240 ml Output Total 2250 ml 575 ml 1100 ml Balance -2250 ml -335 ml -1100 ml Intake Oral 240 ml Output Urine Total 2250 ml 575 ml 1100 ml Laboratory Laboratory Tests Test 11/03/16 07:49 Prothrombin Time 26.2 Prothromb Time International 2.3 Ratio Activated Partial 43.3 Thromboplast Time Physical Exam HEENT: Pupils equal and round. trach CHEST: diminished breath sounds CARDIAC: RRR ABDOMEN: Soft, obese; bowel sounds hypoactive. Peg site clean, dry, mild area of redness 7 o'clock. Area around PEG palpated w/ no pain. 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 was treated in ICU being treated for acute respiratory failure, CHF , pneumonia, hypothyroidism, and multiple electrolyte abnormalities. s/p peg tube placement, EGD showed erythematous gastritis. Pt denies pain on palpation PEG, says it feels better. Pt is eating. Calorie count in progress. - GI bleed, Episode of rectal bleeding x 1. Hemoccult negative Hgb stable PLAN: - await calorie count -H/H stable,transfuse if needed - supportive care - monitor HH Patient seen and examined by Dr. Rosas and myself and this note is written on his behalf (Maria Isabel Wayne) Physician Comments For possible PEG tube removal once able to maintain enough calories. Will follow up with you. (Jazz Rosas MD) Maria Isabel Wayne Nov 03, 2016 14:22 Jazz Rosas MD Nov 03, 2016 17:12
[2016-11-03] MEDS: RESP: ALBUTEROL 2.5 MG/3 ML NEB (PRN) NEB (16:12)
[2016-11-03] MEDS: WARFARIN SOD 10 MG TAB PO SCH (18:01)
[2016-11-03] MEDS: EUCERIN CREAM 120 GM JAR TOPICAL SCH (21:00)
[2016-11-03] MEDS: MELATONIN 5 MG TAB PO SCH (21:11)
[2016-11-03] MEDS: PRAVASTATIN SOD 20 MG TAB PO SCH (21:12)
[2016-11-03] MEDS: FAMOTIDINE 40 MG/5 ML LIQ 50 ML BTL NG SCH (21:14)
[2016-11-04] VITALS (9 sets, daily range): BP systolic 100–138; BP diastolic 64–80; PULSE 78–91; RESP 16–20; TEMP 97.9–99.1; O2SAT 95–98
[2016-11-04] MEDS: RESP: COLISTIN 150 MG VIAL NEB SCH ×4 (00:21→23:54)
[2016-11-04] MEDS: CHLORHEXIDINE GLUCONATE 2 % 1 PACK (2 CLOTHS) TOP SCH (04:00)
[2016-11-04] MEDS: QUEtiapine FUMARATE 25 MG TAB PO SCH ×3 (06:15→22:00)
[2016-11-04] MEDS: METOPROLOL TARTRATE 25 MG TAB G-TUBE SCH ×3 (06:15→20:28)
[2016-11-04] MEDS: LEVOTHYROXINE SODIUM 200 MCG TAB PO SCH (06:15)
[2016-11-04] MEDS: SODIUM CHLORIDE 0.9% FLUSH 10 ML FLUSH IVF SCH (09:00)
[2016-11-04] MEDS: BENEPROTEIN POWDER 1 PACK G-TUBE SCH ×3 (09:00→18:26)
[2016-11-04] MEDS: EUCERIN CREAM 120 GM JAR TOPICAL SCH ×2 (09:31→20:28)
[2016-11-04] MEDS: ARTIFICIAL TEARS OPTH SOLN 15 ML BTL EACH EYE SCH ×3 (09:31→18:00)
[2016-11-04] MEDS: FAMOTIDINE 40 MG/5 ML LIQ 50 ML BTL NG SCH ×2 (09:31→20:25)
[2016-11-04] MEDS: DOCUSATE SODIUM 100 MG/10 ML UDC PO SCH ×2 (09:31→20:26)
[2016-11-04] MEDS: POTASSIUM CHLORIDE 20 MEQ PWD PACKET NG SCH ×2 (09:32→20:28)
[2016-11-04] MEDS: SODIUM CHLORIDE 0.9% FLUSH 10 ML FLUSH IV FLUSH SCH ×2 (09:32→20:28)
[2016-11-04 10:23] LABS: HEMATOCRIT 28.3 % (35.0-46.0); MEAN CELL VOLUME 84.7 FL (80.0-100.0); MEAN CORPUSCULAR HEMOGLOBIN 28.2 PG (27.0-34.0); MEAN CORPUSCULAR HGB CONC 33.4 % (32.0-36.0); PLATELET COUNT 297 TH/MM3 (150-450); RED BLOOD COUNT 3.35 MIL/MM3 (4.00-5.30); RED CELL DISTRIBUTION WIDTH 19.2 % (11.6-17.2); REVIEW FLAG FINAL; WHITE BLOOD COUNT 10.2 TH/MM3 (4.0-11.0)
[2016-11-04 10:31] LABS: APTT (PATIENT) 39.4 SEC (24.3-30.1); PROTHROMBIN TIME - PATIENT 22.9 SEC (9.8-11.6)
--- NOTE | 2016-11-04 14:23 | HHI.GIFU ---
Subjective Remarks Patient is accompanied by daughter, doing good, denies nausea, vomiting or abd pain, she is on a 28 % via trach, able to answer yes or no questions. (Josette Mulligan JINA) Objective Vitals I&O Vital Signs Date Time Temp Pulse Resp B/P Pulse Ox O2 Delivery O2 Flow Rate FiO2 11/04/16 13:09 97.9 91 17 112/80 98 11/04/16 09:46 96 T-piece 28 11/04/16 08:36 99.0 78 20 118/78 98 11/04/16 08:15 98 Trach Collar 6.00 28 11/04/16 04:00 98.9 79 16 114/73 95 11/04/16 01:00 98.8 87 18 138/64 95 11/04/16 00:24 98 T-piece 28.00 11/03/16 20:00 97.8 86 18 122/86 95 11/03/16 19:00 79 11/03/16 16:37 99.0 99 16 157/79 95 I/O 11/03/16 11/03/16 11/03/16 11/04/16 11/04/16 11/04/16 07:00 15:00 23:00 07:00 15:00 23:00 Intake Total 354 ml Output Total 1100 ml 1150 ml 1000 ml Balance -1100 ml -796 ml -1000 ml Intake Oral 354 ml Output Urine Total 1100 ml 1150 ml 1000 ml Laboratory Laboratory Tests Test 11/04/16 10:03 White Blood Count 10.2 Red Blood Count 3.35 Hemoglobin 9.5 Hematocrit 28.3 Mean Corpuscular Volume 84.7 Mean Corpuscular Hemoglobin 28.2 Mean Corpuscular Hemoglobin 33.4 Concent Red Cell Distribution Width 19.2 Platelet Count 297 Mean Platelet Volume 7.0 Prothrombin Time 22.9 Prothromb Time International 2.0 Ratio Activated Partial 39.4 Thromboplast Time Imaging Last Impressions Chest X-Ray 10/31/16 0600 Signed Impressions: Service Date/Time: Monday, October 31, 2016 04:14 - CONCLUSION: Small area of consolidation in the left upper lobe stable from the previous study Leonides Mason MD Central Venous Line 10/20/16 0000 Signed Impressions: Service Date/Time: Thursday, October 20, 2016 00:00 - CONCLUSION: Uncomplicated Permcath removal. Didier Zhang MD Catheter Placement X-Ray 09/29/16 1223 Signed Impressions: Service Date/Time: Thursday, September 29, 2016 12:31 - CONCLUSION: Vas-Cath to PermCath exchange as detailed above. Taco Haas Jr., MD Renal Ultrasound 09/17/16 0000 Signed Impressions: Service Date/Time: Saturday, September 17, 2016 13:31 - CONCLUSION: Negative renal sonogram. Taco Davidson MD Upper Extremity Ultrasound 09/14/16 0000 Signed Impressions: Service Date/Time: August 08:32 - CONCLUSION: There is thrombus within the left subclavian and internal jugular veins. Danyel Escalante MD Lower Extremity Ultrasound 09/13/16 0000 Signed Impressions: Service Date/Time: Tuesday, September 13, 2016 22:33 - CONCLUSION: Normal examination. Leonides Mason MD Liver Ultrasound 09/08/16 0000 Signed Impressions: Service Date/Time: Thursday, September 08, 2016 08:45 - CONCLUSION: 1. Cholelithiasis with distended gallbladder. However, there are no associated findings present to diagnose acute cholecystitis. If there is persistent clinical concern for acute cholecystitis could evaluate for cystic duct obstruction with hepatobiliary scintigraphy. 2. Hepatomegaly with very heterogeneous echotexture and steatosis. Dejan Allison MD Gall Bladder Ultrasound 08/29/16 0000 Signed Impressions: Service Date/Time: Monday, August 29, 2016 15:21 - CONCLUSION: 1. Hepatomegaly with heterogeneous echotexture throughout the liver. 2. There is a large echogenic area near the neck of the gallbladder suggestive of a stone, but despite its large size, demonstrates no acoustic shadowing in any of the views. Taco Davidson MD CT Angiography 08/15/16 0000 Signed Impressions: Service Date/Time: Monday, August 15, 2016 02:33 - CONCLUSION: 1. No evidence for pulmonary embolism. 2. Multifocal consolidation greatest in the right lower lobe and associated adenopathy. Terry Estrada MD Physical Exam HEENT: Pupils equal and round. trach CHEST: diminished breath sounds CARDIAC: RRR ABDOMEN: Soft, obese; bowel sounds active . Peg site clean, dry EXTREMITIES: No clubbing, cyanosis, general edema SKIN: no rash, jaundice GENERAL HELPER: Alert and oriented (Josette Mulligan) Assessment and Plan Plan ASSESSMENT: - Dysphagia. was treated in ICU being treated for acute respiratory failure, CHF , pneumonia, hypothyroidism, and multiple electrolyte abnormalities. s/p peg tube placement, EGD showed erythematous gastritis.Patient would like PEG tube removed, she is eating by mouth, but little amount. Calorie count in progress. - GI bleed, Episode of rectal bleeding x 1. Hemoccult negative Hgb stable PLAN: - await calorie count - Will decide on PEG tube removal pending caloric count. - supportive care - Patient seen and examined by Dr. Bowers and myself and this note is written on his behalf (Josette Mulligan) Physician Comments Patient seen and examined Agree with above Continue with current supportive care Monitor labs Await calorie count prior to making a decision for PEG removal (Otis Bowers MD) Josette Mulligan Nov 04, 2016 14:23 Otis Bowers MD Nov 04, 2016 18:02
--- NOTE | 2016-11-04 16:05 | HHI.PR ---
Subjective Remarks Completed her recounts and they'll patient's status. Continue tube feeding with x-ray as tolerated. The patient is in bed she appears in no acute distress at this time. She says she has more secretions today. She is suctioned. No fever or chills. Denies having chest pain. Objective Vitals Vital Signs Date Time Temp Pulse Resp B/P Pulse Ox O2 Delivery O2 Flow Rate FiO2 11/04/16 15:52 95 T-piece 6.00 28 11/04/16 13:09 97.9 91 17 112/80 98 11/04/16 09:46 96 T-piece 28 11/04/16 08:36 99.0 78 20 118/78 98 11/04/16 08:15 98 Trach Collar 6.00 28 11/04/16 04:00 98.9 79 16 114/73 95 11/04/16 01:00 98.8 87 18 138/64 95 11/04/16 00:24 98 T-piece 28.00 11/03/16 20:00 97.8 86 18 122/86 95 11/03/16 19:00 79 11/03/16 16:37 99.0 99 16 157/79 95 I/O 11/03/16 11/03/16 11/03/16 11/04/16 11/04/16 11/04/16 07:00 15:00 23:00 07:00 15:00 23:00 Intake Total 354 ml 360 ml Output Total 1100 ml 1150 ml 1000 ml Balance -1100 ml -796 ml -1000 ml 360 ml Intake Oral 354 ml 360 ml Output Urine Total 1100 ml 1150 ml 1000 ml Result Diagram: 11/04/16 1003 Imaging Last Impressions Chest X-Ray 10/31/16 0600 Signed Impressions: Service Date/Time: Monday, October 31, 2016 04:14 - CONCLUSION: Small area of consolidation in the left upper lobe stable from the previous study Leonides Mason MD Central Venous Line 10/20/16 0000 Signed Impressions: Service Date/Time: Thursday, October 20, 2016 00:00 - CONCLUSION: Uncomplicated Permcath removal. Didier Zhang MD Catheter Placement X-Ray 09/29/16 1223 Signed Impressions: Service Date/Time: Thursday, September 29, 2016 12:31 - CONCLUSION: Vas-Cath to PermCath exchange as detailed above. Taco Haas Jr., MD Renal Ultrasound 09/17/16 Signed Impressions: Service Date/Time: Saturday, September 17, 2016 13:31 - CONCLUSION: Negative renal sonogram. Taco Davidson MD Upper Extremity Ultrasound 09/14/16 0000 Signed Impressions: Service Date/Time: August 08:32 - CONCLUSION: There is thrombus within the left subclavian and internal jugular veins. Danyel Escalante MD Lower Extremity Ultrasound 09/13/16 0000 Signed Impressions: Service Date/Time: Tuesday, September 13, 2016 22:33 - CONCLUSION: Normal examination. Leonides Mason MD Liver Ultrasound 09/08/16 Signed Impressions: Service Date/Time: Thursday, September 08, 2016 08:45 - CONCLUSION: 1. Cholelithiasis with distended gallbladder. However, there are no associated findings present to diagnose acute cholecystitis. If there is persistent clinical concern for acute cholecystitis could evaluate for cystic duct obstruction with hepatobiliary scintigraphy. 2. Hepatomegaly with very heterogeneous echotexture and steatosis. Dejan Allison MD Gall Bladder Ultrasound 08/29/16 Signed Impressions: Service Date/Time: Monday, August 29, 2016 15:21 - CONCLUSION: 1. Hepatomegaly with heterogeneous echotexture throughout the liver. 2. There is a large echogenic area near the neck of the gallbladder suggestive of a stone, but despite its large size, demonstrates no acoustic shadowing in any of the views. Taco Davidson MD CT Angiography 08/15/16 Signed Impressions: Service Date/Time: Monday, August 15, 2016 02:33 - CONCLUSION: 1. No evidence for pulmonary embolism. 2. Multifocal consolidation greatest in the right lower lobe and associated adenopathy. Terry Estrada MD Objective Remarks GENERAL: 56 yo female currently on mechanical ventilation via tracheostomy SKIN: Warm and dry. Skin is flaky. Noted stage I to 2 decubitus ulcer\coccyx and back covered with Mepilex HEAD: Normocephalic. Atraumatic EYES: No scleral icterus. No injection or drainage. NECK: Neck is obese. Right subclavian hemodialysis catheters clean dry and intact. Tracheostomy site is clean dry and intact CARDIOVASCULAR: RRR. S1, S2. No S4. Without murmur RESPIRATORY: Diminished breath sounds throughout due to body habitus. GASTROINTESTINAL: Abdomen obese, soft, non-tender, hypoactive active bowel sounds. G-tube is clean dry and intact MUSCULOSKELETAL: 1+ edema BUE. Neuro: Awake alert oriented 3. Following commands moving upper and lower extremity spontaneously, though still weak. A/P Assessment and Plan Neuro/Psych: Acute toxic metabolic encephalopathy Critical care myopathy Agitated delirium- improving Minimize sedation Monitor neuro status. Fentanyl allergy On Seroquel 75 mg every 8 hours for agitation Melatonin 5mg po qHS for insomnia Acetaminophen for fever/pain Pulm: Acute on chronic hypercapnic and hypoxemic respiratory failure ARDS- resolved. Pneumonia community-acquired, now with HCAP with carbapenem-resistant pseudomonas and ESBL Klebsiella VAP. 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 T piece as tolerated ICU vent bundle Bronchodilator therapy every 6 hours and albuterol every 2 hours as needed Pulm has followed- Dr. Beck Gen surgery Dr. Ortega s/p s tracheostomy 09/15 Pulm toilet, trach care Pulmonary following, downsize trach size per pulmonary CV: Hypertension Dyslipidemia Elevated troponin - likely strain On Lopressor 50mg Q8 monitor HR and BP keep MAP>65mmHg As needed labetalol, hydralazine and Nitropaste for hypertension Echo 08/14 showed EF 65-70% mild AR/TR On Pravachol 20 mg a night for dyslipidemia Renal/: Acute kidney injury - requiring hemodialysis Dr. Tan -nephrology following. Hemodialysis Sunday//Sunday currently on hold. Tunneled cuff catheter discontinued 10/20 MIKE: ATN from sepsis syndrome and diminished renal perfusion; also aminoglycoside induced nephrotoxicity likely also contributing; possibly AIN -> per nephrology note Urine eosinophils negative. Renal ultrasound revealed no hydronephrosis Monitor renal function, I/O's, avoid nephrotoxins. Miller placed for accurate I's and O's GI: Elevated transaminases Cholelithiasis On TF Nepro's 45 cc an hour and Beneprotein 2 packs 3 times a day. s/p PEG placement 09/01/[address] Garcia. Also patient passed swallow evaluation. Fail calorie . Continue tube feedings with tray as tolerated. Pepcid 10mg BID GI prophylaxis Having BM US liver: Steatosis and cholelithiasis. Repeat 09/08 revealed cholelithiasis with no acute signs of cholecystitis. ID: Pseudomonas pneumonia Funguria, Maribell glabrata and parapsilosis. ID following. Pertinent cultures blood and sputum cx 08/15- NG strep pneumonia and Legionella urinary Ag negative Blood cultures 08/28: NGTD C Diff negative 08/28. Lines changed 08/28. Sputum 08/30 - Pseudomonas Sputum 09/02 PSAE, resistant to carbapenem, intermediate to Levaquin. 09/07 - urine -Maribell Guilliermondii 09/07 - blood cultures 2 - no growth 09/09 - urine -strep viridans, Maribell parapsilosis 09/10 - blood cultures 2 -no growth 09/11 - broch washings -no growth to date 09/12 - urine -Maribell glabrata and parapsilosis 09/16 - blood cultures 2 - pending 09/16 - sputum -no growth 09/16 - urine -Maribell glabrata and parapsilosis 10/02 - blood cultures 2 - staph epi 10/02 - urine - ESBL positive Klebsiella 10/04 - blood cultures 2 -no growth 10/05 - blood cultures 2 -no growth 10/17 - blood cultures -no growth 10/17 - sputum -Klebsiella ESBL positive and Stenotrophomonas maltophilia 10/17 - urine -C glabrata 10/21/ 10/22 - urine - ESBL positive Klebsiella Zosyn previously discontinued secondary to rash Followed by Dr. Uribe. Patient asymptomatic. Dr. Eaton recommended Levaquin/ertapenem if fever arises/symptomatic. Dr. Eaton started ertapenem on 10/24 for ESBL positive Klebsiella and urine from 10/22. Sepsis present on admission. Discussed with Dr uribe form ID. Patient with ESBL and very MDR PSAE tracheobronchitis. DC Ertapenem IV . 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 10/14, pharmacy dosing currently at 12 mg daily. IV Heparin started due to subtherapeutic last PTT PTT on heparin drip currently therapeutic. Coumadin per pharmacy dosing. Endo: Diabetes mellitus Hypothyroidism on SSI (medium scale) for glycemic control On Synthroid 200mcg daily. TSH 1.37 GI prophylaxis-Protonix 40mg Q12 DVT - IV heparin until therapeutic on Coumadin Passed swallow eval currently on PO diet and also tube feeding , will do calorie count, dietary consulted. Also reconsult GI as noted some redness around the feeding tube. Lines: Peripheral IV. - PEG 09/01/16 - Trach 09/15 - Right Permacath placed 09/29 Loree Marinelli, daughter (HCP): [phone] Rony Marinelli, significant other: [phone] Pulmonary following for trach. Plan to downsize trach. Discussed with the patient and the nurse. DC plan: will need rehab or LTAC. CM consult for DC plan. Cassi Reynolds MD Nov 04, 2016 16:05
[2016-11-04] MEDS: WARFARIN SOD 10 MG TAB PO SCH (16:19)
[2016-11-04] MEDS: MELATONIN 5 MG TAB PO SCH (20:26)
[2016-11-04] MEDS: PRAVASTATIN SOD 20 MG TAB PO SCH (20:26)
[2016-11-04] MEDS: ACETAMINOPHEN 325 MG TAB PO PRN (22:02)
[2016-11-05] VITALS (10 sets, daily range): BP systolic 103–142; BP diastolic 68–84; PULSE 84–106; RESP 16–22; TEMP 96.5–99.6; O2SAT 93–100
[2016-11-05] MEDS: CHLORHEXIDINE GLUCONATE 2 % 1 PACK (2 CLOTHS) TOP SCH (04:00)
[2016-11-05] MEDS: QUEtiapine FUMARATE 25 MG TAB PO SCH ×3 (05:20→21:31)
[2016-11-05] MEDS: LEVOTHYROXINE SODIUM 200 MCG TAB PO SCH (05:20)
[2016-11-05] MEDS: METOPROLOL TARTRATE 25 MG TAB G-TUBE SCH ×3 (06:00→21:31)
[2016-11-05 07:54] LABS: HEMATOCRIT 30.2 % (35.0-46.0); MEAN CELL VOLUME 85.1 FL (80.0-100.0); MEAN CORPUSCULAR HEMOGLOBIN 27.6 PG (27.0-34.0); MEAN CORPUSCULAR HGB CONC 32.5 % (32.0-36.0); PLATELET COUNT 293 TH/MM3 (150-450); RED BLOOD COUNT 3.55 MIL/MM3 (4.00-5.30); RED CELL DISTRIBUTION WIDTH 19.4 % (11.6-17.2); REVIEW FLAG FINAL; WHITE BLOOD COUNT 8.8 TH/MM3 (4.0-11.0)
[2016-11-05 07:59] LABS: APTT (PATIENT) 42.4 SEC (24.3-30.1); INTERNATIONAL NORMALIZED RATIO 2.2 RATIO; PROTHROMBIN TIME - PATIENT 24.6 SEC (9.8-11.6)
[2016-11-05] MEDS: DOCUSATE SODIUM 100 MG/10 ML UDC PO SCH ×2 (08:34→21:00)
[2016-11-05] MEDS: ARTIFICIAL TEARS OPTH SOLN 15 ML BTL EACH EYE SCH ×3 (08:34→17:30)
[2016-11-05] MEDS: FAMOTIDINE 40 MG/5 ML LIQ 50 ML BTL NG SCH ×2 (08:34→21:32)
[2016-11-05] MEDS: POTASSIUM CHLORIDE 20 MEQ PWD PACKET NG SCH ×3 (08:35→21:00)
[2016-11-05] MEDS: SODIUM CHLORIDE 0.9% FLUSH 10 ML FLUSH IV FLUSH SCH ×2 (08:35→21:32)
[2016-11-05] MEDS: EUCERIN CREAM 120 GM JAR TOPICAL SCH ×2 (08:35→21:33)
[2016-11-05] MEDS: BENEPROTEIN POWDER 1 PACK G-TUBE SCH ×3 (08:35→17:30)
[2016-11-05] MEDS: SODIUM CHLORIDE 0.9% FLUSH 10 ML FLUSH IVF SCH (08:35)
[2016-11-05] MEDS: RESP: COLISTIN 150 MG VIAL NEB SCH ×2 (09:25→16:17)
--- NOTE | 2016-11-05 11:44 | HHI.GIFU ---
Subjective Remarks Patient laying in bed alert has a tracheostomy denies any pain tolerating intake no bowel movements today but she did have one yesterday no ongoing bleeding Objective Vitals I&O Vital Signs Date Time Temp Pulse Resp B/P Pulse Ox O2 Delivery O2 Flow Rate FiO2 11/05/16 09:26 95 T-piece 35 11/05/16 08:09 97.8 94 20 111/78 100 11/05/16 07:42 98 Trach Collar 6.00 28 11/05/16 07:13 88 11/05/16 06:23 96 T-Piece 28 Humidified 11/05/16 05:06 96.5 84 18 111/84 100 11/05/16 00:51 97.3 86 16 108/77 98 11/04/16 23:59 97 T-piece 6.00 28 11/04/16 23:48 96 T-Piece 28 Humidified 11/04/16 20:25 99.1 89 18 100/75 97 11/04/16 15:52 95 T-piece 6.00 28 11/04/16 13:09 97.9 91 17 112/80 98 I/O 11/04/16 11/04/16 11/04/16 11/05/16 11/05/16 11/05/16 07:00 15:00 23:00 07:00 15:00 23:00 Intake Total 360 ml 200 ml 346 ml Output Total 1000 ml 750 ml 400 ml Balance -1000 ml 360 ml -550 ml -54 ml Intake Oral 360 ml 200 ml Tube Feeding 286 ml Other 60 ml Output Urine Total 1000 ml 750 ml 400 ml # Bowel Movements 0 1 Laboratory Laboratory Tests Test 11/05/16 06:54 White Blood Count 8.8 Red Blood Count 3.55 Hemoglobin 9.8 Hematocrit 30.2 Mean Corpuscular Volume 85.1 Mean Corpuscular Hemoglobin 27.6 Mean Corpuscular Hemoglobin 32.5 Concent Red Cell Distribution Width 19.4 Platelet Count 293 Mean Platelet Volume 7.1 Prothrombin Time 24.6 Prothromb Time International 2.2 Ratio Activated Partial 42.4 Thromboplast Time Physical Exam HEENT: Pupils equal and round. trach CHEST: diminished breath sounds CARDIAC: RRR ABDOMEN: Soft, obese; bowel sounds active . 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 was treated in ICU being treated for acute respiratory failure, CHF , pneumonia, hypothyroidism, and multiple electrolyte abnormalities. s/p peg tube placement, EGD showed erythematous gastritis.Patient would like PEG tube removed, she is eating by mouth, but little amount. Calorie count in progress. - GI bleed, Episode of rectal bleeding x 1. Hemoccult negative Hgb stable PLAN: - await calorie count - Will decide on PEG tube removal pending caloric count. - supportive care Otis Bowers MD Nov 05, 2016 11:44
--- NOTE | 2016-11-05 13:31 | HHI.PR ---
Subjective Remarks Patient has no new complaints today. She is presently able to take a mechanical soft diet. No fevers overnight. No coughing. Objective Vital Signs Date Time Temp Pulse Resp B/P Pulse Ox O2 Delivery O2 Flow Rate FiO2 11/05/16 12:00 99.0 106 20 142/68 96 11/05/16 09:26 95 T-piece 35 11/05/16 08:09 97.8 94 20 111/78 100 11/05/16 07:42 98 Trach Collar 6.00 28 11/05/16 07:13 88 11/05/16 06:23 96 T-Piece 28 Humidified 11/05/16 05:06 96.5 84 18 111/84 100 11/05/16 00:51 97.3 86 16 108/77 98 11/04/16 23:59 97 T-piece 6.00 28 11/04/16 23:48 96 T-Piece 28 Humidified 11/04/16 20:25 99.1 89 18 100/75 97 11/04/16 15:52 95 T-piece 6.00 28 11/04/16 13:09 97.9 91 17 112/80 98 I/O 11/04/16 11/04/16 11/04/16 11/05/16 11/05/16 11/05/16 07:00 15:00 23:00 07:00 15:00 23:00 Intake Total 360 ml 200 ml 346 ml Output Total 1000 ml 750 ml 400 ml Balance -1000 ml 360 ml -550 ml -54 ml Intake Oral 360 ml 200 ml Tube Feeding 286 ml Other 60 ml Output Urine Total 1000 ml 750 ml 400 ml # Bowel Movements 0 1 Result Diagram: 11/05/16 0654 Objective Remarks GENERAL: NAD, A&Ox3, unable to speak secondary to tracheostomy. HEAD: Normocephalic. NECK: Supple, trachea midline. No lymphadenopathy. Tracheostomy present. EYES: No scleral icterus. No injection or drainage. CARDIOVASCULAR: Regular rate and rhythm without murmurs, gallops, or rubs. RESPIRATORY: Breath sounds equal bilaterally. No accessory muscle use. GASTROINTESTINAL: Abdomen soft, non-tender, nondistended. MUSCULOSKELETAL: No cyanosis, or edema. SKIN: Warm and dry. NEURO: No focal neurological deficitis. Medications and IVs Administered Medications Medications (Trade) Dose Ordered Sig/Josephine Route PRN Reason Start Time Stop Time Status Last Admin Dose Admin Levothyroxine Sodium (Synthroid) 200 mcg DAILY@06 PO 08/15/16 06:00 11/05/16 05:20 Pravastatin Sodium (Pravachol) 20 mg HS PO 08/15/16 21:00 11/04/16 20:26 Sodium Chloride (NS Flush) 2 ml UNSCH PRN IVF FLUSH AFTER USING IV ACCESS 08/14/16 23:15 10/08/16 11:53 Sodium Chloride (NS Flush) 2 ml BID IV FLUSH 08/15/16 09:00 11/05/16 08:35 Acetaminophen (Tylenol) 650 mg Q6H PRN PO PAIN 1-10 AND/OR FEVER >101F 08/14/16 23:15 11/04/16 22:02 Morphine Sulfate (Morphine Inj) 2 mg Q2H PRN IV PAIN SCALE 6 TO 10 08/14/16 23:15 11/03/16 21:45 Artificial Tears (Tears Naturale Opth Soln) 1 drop TID EACH EYE 08/15/16 09:00 11/05/16 12:04 Chlorhexidine Gluconate (Chlorhexidine 2% Cloth) Taper DAILY@04 TOP 08/15/16 04:00 08/11/17 03:59 10/31/16 04:00 Protein (Beneprotein Powder) 2 pack TID G-TUBE 08/15/16 09:00 11/05/16 12:03 Sodium Chloride (NS Flush) DAILY IVF 09/11/16 09:00 11/04/16 09:00 Sodium Chloride (NS Flush) UNSCH PRN IVF SEE PROTOCOL 09/10/16 19:15 11/01/16 09:26 Docusate Sodium 100 mg 100 mg BID PO 09/13/16 21:30 11/05/16 08:34 Sodium Chloride (NS 1000 ml Inj) 1,000 ml @ 0 mls/hr Q0M PRN IV For Prime & Rinse Back 09/20/16 10:21 10/12/16 10:48 Mannitol (Mannitol Inj) 12.5 gm UNSCH PRN IV WITH DIALYSIS 09/20/16 10:30 10/05/16 09:40 Albumin Human (Albumin 25% Inj) 25 gm UNSCH PRN IV WITH DIALYSIS 09/20/16 10:30 10/10/16 10:10 Sodium Chloride (NS Flush) 5 ml UNSCH PRN IV FLUSH WITH DIALYSIS 09/20/16 10:30 09/21/16 13:24 Heparin Sodium (Porcine) (Heparin Inj) UNSCH PRN .XX WITH DIALYSIS 09/20/16 10:30 10/12/16 10:48 Gentamicin Sulfate (Gentamicin (Dialysis) Inj) 20 mg UNSCH PRN IV WITH DIALYSIS 09/20/16 10:30 10/14/16 12:35 Diphenhydramine HCl (Benadryl) 25 mg UNSCH PRN PO for hives/itching/anaphylaxis 09/20/16 10:30 11/01/16 05:05 Multi-Ingredient Ointment (Eucerin Cream) 1 applic BID TOPICAL 09/27/16 21:00 11/05/16 08:35 Quetiapine Fumarate (SEROquel) 75 mg Q8HR PO 09/28/16 14:00 11/05/16 05:20 Melatonin (Melatonin) 5 mg HS PO 10/07/16 21:00 11/04/16 20:26 Hydralazine HCl 20 mg 20 mg Q4H PRN IV PUSH SEE LABEL COMMENTS 10/14/16 04:30 10/15/16 04:23 Dexmedetomidine HCl/Sodium Chloride (Precedex Inj/NS Inj) 52 ml @ 0 mls/hr TITRATE IV 10/15/16 11:45 10/17/16 23:01 Metoprolol Tartrate (Lopressor) 50 mg Q8HR G-TUBE 10/21/16 14:00 11/04/16 16:19 Labetalol HCl (Trandate Inj) 10 mg Q1HR PRN IV PUSH SBP>160, DBP>90, HR>65 10/21/16 13:15 10/23/16 11:45 Potassium Chloride (KCl Powder) 20 meq Q12HR NG 10/24/16 21:00 11/04/16 20:28 Hyoscyamine Sulfate (Levsin Liq) 0.125 mg Q4H PRN PO INCREASED SECRETIONS 10/26/16 12:30 11/03/16 04:31 Famotidine (Pepcid Liq) 20 mg BID NG 10/30/16 21:00 11/05/16 08:34 Warfarin Sodium (Coumadin) 10 mg DAILY@16 PO 11/03/16 16:00 11/04/16 16:19 A/P Problem List: (1) Respiratory failure ICD Code: J96.90 Assessment and Plan Assessment and Plan 56-year-old female admitted with respiratory failure and pneumonia, now with chronic tracheostomy and chronic respiratory failure. Acute toxic metabolic encephalopathy Critical care myopathy Agitated delirium Resolved Seroquel 75 mg every 8 hours for agitation Melatonin 5mg po qHS for insomnia Acetaminophen for fever/pain Acute on chronic hypercapnic and hypoxemic respiratory failure Pneumonia community-acquired, now with HCAP with carbapenem-resistant pseudomonas and ESBL Klebsiella VAP. Probable JOE Tracheostomy present Continue CPAP Pulmonary toilet Pulmonology following Hypertension Dyslipidemia Continue Lopressor When necessary labetalol When necessary hydralazine When necessary Nitropaste Continue pravastatin Acute kidney injury - requiring hemodialysis Follow I's and O's Nephrology following Dialysis presently on hold Elevated transaminases Cholelithiasis Twice a day Pepcid Follow transaminases Follow clinically No reports of abdominal pain today Pseudomonas pneumonia Funguria, Maribell glabrata and parapsilosis. Colistin nebs stop date 11/09 ID following follow cultures History of cultures: Blood cultures 08/28: NGTD C Diff negative 08/28. Lines changed 08/28. Sputum 08/30 - Pseudomonas Sputum 09/02 PSAE, resistant to carbapenem, intermediate to Levaquin. 09/07 - urine -Maribell Guilliermondii 09/07 - blood cultures 2 - no growth 09/09 - urine -strep viridans, Maribell parapsilosis 09/10 - blood cultures 2 -no growth 09/11 - broch washings -no growth to date 09/12 - urine -Maribell glabrata and parapsilosis 09/16 - blood cultures 2 - pending 09/16 - sputum -no growth 09/16 - urine -Maribell glabrata and parapsilosis 10/02 - blood cultures 2 - staph epi 10/02 - urine - ESBL positive Klebsiella 10/04 - blood cultures 2 -no growth 10/05 - blood cultures 2 -no growth 10/17 - blood cultures -no growth 10/17 - sputum -Klebsiella ESBL positive and Stenotrophomonas maltophilia 10/17 - urine -C glabrata 10/21/ 10/22 - urine - ESBL positive Klebsiella Left IJ/subclavian nonocclusive thrombus 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 - PEG 09/01/16 - Trach 09/15 - Right Permacath placed 09/29 Contacts: Loree Marinelli, daughter (HCP): [phone] Rony Marinelli, significant other: [phone] Discharge planning Case management following [id number] facility is likely needed Problem Qualifiers (1) Respiratory failure: Qualified Code: J96.02 - Acute respiratory failure with hypercapnia Bill Walsh MD Nov 05, 2016 13:31
[2016-11-05] MEDS: MORPHINE SULFATE 4 MG/ML INJ IV PRN ×2 (14:05→21:32)
[2016-11-05] MEDS: WARFARIN SOD 10 MG TAB PO SCH (16:24)
[2016-11-05] MEDS: RESP: ALBUTEROL 2.5 MG/3 ML NEB (PRN) NEB (20:48)
[2016-11-05] MEDS: PRAVASTATIN SOD 20 MG TAB PO SCH (21:31)
[2016-11-05] MEDS: MELATONIN 5 MG TAB PO SCH (21:31)
[2016-11-06] VITALS (8 sets, daily range): BP systolic 99–129; BP diastolic 63–86; PULSE 64–101; RESP 16–24; TEMP 97.6–99.1; O2SAT 94–100
[2016-11-06] MEDS: RESP: COLISTIN 150 MG VIAL NEB SCH ×3 (00:37→16:52)
[2016-11-06] MEDS: CHLORHEXIDINE GLUCONATE 2 % 1 PACK (2 CLOTHS) TOP SCH (04:00)
[2016-11-06] MEDS: QUEtiapine FUMARATE 25 MG TAB PO SCH ×3 (06:30→21:11)
[2016-11-06] MEDS: LEVOTHYROXINE SODIUM 200 MCG TAB PO SCH (06:31)
[2016-11-06] MEDS: METOPROLOL TARTRATE 25 MG TAB G-TUBE SCH ×3 (06:31→21:11)
[2016-11-06] MEDS: RESP: ALBUTEROL 2.5 MG/3 ML NEB (PRN) NEB (07:52)
[2016-11-06] MEDS: SODIUM CHLORIDE 0.9% FLUSH 10 ML FLUSH IVF SCH (09:00)
[2016-11-06 09:15] LABS: APTT (PATIENT) 44.5 SEC (24.3-30.1); INTERNATIONAL NORMALIZED RATIO 2.8 RATIO; PROTHROMBIN TIME - PATIENT 32.1 SEC (9.8-11.6)
--- NOTE | 2016-11-06 10:33 | HHI.PR ---
Subjective Remarks Follow up. Patient laying in bed attached to t-piece. Able to communicate with nods and lip movement. No complaints at this time. States she is eating well. No abdominal pain, nausea or vomiting. No chest pain or sob. Objective Vitals Vital Signs Date Time Temp Pulse Resp B/P Pulse Ox O2 Delivery O2 Flow Rate FiO2 11/06/16 08:00 97.7 75 18 102/69 99 11/06/16 07:53 97 T-piece 5.00 28 11/06/16 05:06 98 T-Piece 28 Humidified 11/06/16 04:00 98.6 83 16 129/86 99 11/06/16 02:00 98 T-Piece 28 Humidified 11/06/16 01:00 97.6 101 18 99/68 94 11/06/16 00:37 97 T-piece 28 11/05/16 20:54 93 T-piece 28.00 11/05/16 20:21 98.9 100 18 117/71 94 11/05/16 20:05 95 T-Piece 28 11/05/16 20:00 94 11/05/16 16:00 99.6 86 22 103/68 97 11/05/16 14:10 18 11/05/16 12:00 99.0 106 20 142/68 96 I/O 11/05/16 11/05/16 11/05/16 11/06/16 11/06/16 11/06/16 07:00 15:00 23:00 07:00 15:00 23:00 Intake Total 346 ml 720 ml 200 ml Output Total 400 ml 500 ml 1550 ml 600 ml Balance -54 ml 220 ml -1550 ml -400 ml Intake Oral 720 ml 200 ml Tube Feeding 286 ml Other 60 ml Output Urine Total 400 ml 500 ml 1550 ml 600 ml # Bowel Movements 1 1 2 0 Result Diagram: 11/05/16 0654 Objective Remarks GENERAL: NAD, A&Ox3, unable to speak secondary to tracheostomy, but able to communicate with lip movement HEAD: Normocephalic. NECK: Supple, trachea midline. No lymphadenopathy. Tracheostomy present. EYES: No scleral icterus. No injection or drainage. CARDIOVASCULAR: Regular rate and rhythm without murmurs, gallops, or rubs. RESPIRATORY: Breath sounds equal bilaterally. No accessory muscle use. Upper bronchial sounds due to secretions. T piece in place GASTROINTESTINAL: Abdomen soft, non-tender, nondistended. MUSCULOSKELETAL: No cyanosis, or edema. SKIN: Warm and dry. NEURO: No focal neurological deficits. Medications and IVs Current Medications Medications (Trade) Dose Ordered Sig/Josephine Route Start Time Stop Time Status Last Admin (Synthroid) 200 mcg DAILY@06 PO 08/15/16 06:00 11/06/16 06:31 (Pravachol) 20 mg HS PO 08/15/16 21:00 11/05/16 21:31 (NS Flush) 2 ml UNSCH PRN IVF 08/14/16 23:15 10/08/16 11:53 (NS Flush) 2 ml BID IV FLUSH 08/15/16 09:00 11/05/16 21:32 (Tylenol) 650 mg Q6H PRN PO 08/14/16 23:15 11/04/16 22:02 (Morphine Inj) 2 mg Q2H PRN IV 08/14/16 23:15 11/05/16 21:32 (Tears Naturale Opth Soln) 1 drop TID EACH EYE 08/15/16 09:00 11/05/16 17:30 (Zofran Inj) 4 mg Q6H PRN IV 08/14/16 23:15 Miscellaneous Information 1 Q361D XX 08/14/16 23:15 (Chlorhexidine 2% Cloth) Taper DAILY@04 TOP 08/15/16 04:00 08/11/17 03:59 10/31/16 04:00 (Chlorhexidine 2% Cloth) 3 pack UNSCH PRN TOP 08/14/16 23:15 (Beneprotein Powder) 2 pack TID G-TUBE 08/15/16 09:00 11/05/16 17:30 (D50w (Vial) Inj) 25 ml UNSCH PRN IV PUSH 08/16/16 09:15 (NS Flush) DAILY IVF 09/11/16 09:00 11/04/16 09:00 (NS Flush) UNSCH PRN IVF 09/10/16 19:15 11/01/16 09:26 (Colace Liq) 100 mg BID PO 09/13/16 21:30 11/05/16 08:34 (Mannitol Inj) 12.5 gm UNSCH PRN IV 09/20/16 10:30 10/05/16 09:40 (Albumin 25% Inj) 25 gm UNSCH PRN IV 09/20/16 10:30 10/10/16 10:10 (NS Flush) 5 ml UNSCH PRN IV FLUSH 09/20/16 10:30 09/21/16 13:24 (Heparin Inj) UNSCH PRN .XX 09/20/16 10:30 10/12/16 10:48 (Gentamicin (Dialysis) Inj) 20 mg UNSCH PRN IV 09/20/16 10:30 10/14/16 12:35 (Zofran Inj) 4 mg UNSCH PRN IV 09/20/16 10:30 (Tylenol) 650 mg UNSCH PRN PO 09/20/16 10:30 (Benadryl) 25 mg UNSCH PRN PO 09/20/16 10:30 11/01/16 05:05 (Nitrostat Sl) 0.4 mg UNSCH PRN SL 09/20/16 10:30 Gelatin 1 foam 1 foam UNSCH PRN TOP 09/20/16 10:30 (Coumadin Consult Pharmacy) 0 ml @ 0 mls/hr UNSCH OTHER 09/26/16 20:45 (Eucerin Cream) 1 applic BID TOPICAL 09/27/16 21:00 11/05/16 21:33 (SEROquel) 75 mg Q8HR PO 09/28/16 14:00 11/06/16 06:30 (NS Flush) UNSCH PRN IVF 09/29/16 12:45 (Heparin Inj) UNSCH PRN IV FLUSH 09/29/16 12:45 (Melatonin) 5 mg HS PO 10/07/16 21:00 11/05/16 21:31 (Apresoline Inj) 20 mg Q4H PRN IV PUSH 10/14/16 04:30 10/15/16 04:23 Lorazepam 1 mg 1 mg Q6H PRN IV PUSH 10/15/16 11:45 (Precedex Inj/NS Inj) 52 ml @ 0 mls/hr TITRATE IV 10/15/16 11:45 10/17/16 23:01 (Lopressor) 50 mg Q8HR G-TUBE 10/21/16 14:00 11/06/16 06:31 (Nitroglycerin 2% Oint) 2 inch Q6HR PRN TOPICAL 10/21/16 13:15 (Trandate Inj) 10 mg Q1HR PRN IV PUSH 10/21/16 13:15 10/23/16 11:45 (KCl Powder) 20 meq Q12HR NG 10/24/16 21:00 11/05/16 21:00 (Levsin Liq) 0.125 mg Q4H PRN PO 10/26/16 12:30 11/03/16 04:31 (Pepcid Liq) 20 mg BID NG 10/30/16 21:00 11/05/16 21:32 (Coumadin) 10 mg DAILY@16 PO 11/03/16 16:00 11/05/16 16:24 A/P Assessment and Plan 56-year-old female admitted with respiratory failure and pneumonia, now with chronic tracheostomy and chronic respiratory failure. Acute toxic metabolic encephalopathy, Critical care myopathy, Agitated delirium , Resolved -Cont Seroquel 75 mg every 8 hours for agitation -Cont Melatonin 5mg po qHS for insomnia -Cont Acetaminophen for fever/pain Acute on chronic hypercapnic and hypoxemic respiratory failure Pneumonia community-acquired, now with HCAP with carbapenem-resistant pseudomonas and ESBL Klebsiella VAP. Probable JOE -Tracheostomy present -Continue CPAP -Pulmonary toilet -Pulmonology following Hypertension, chronic, stable -Continue Lopressor -PRN Nitropaste Dyslipidemia, chronic -Continue pravastatin Acute kidney injury - requiring hemodialysis, resolved -Follow I's and O's -Trend creatine -Nephrology has signed off Elevated transaminases Cholelithiasis -Cont Pepcid BID -Follow transaminases -Follow clinically -No reports of abdominal pain today Pseudomonas pneumonia Funguria, Maribell glabrata and parapsilosis. -Colistin nebs stop date 11/09 -ID following follow cultures -History of cultures: Blood cultures 08/28: NGTD C Diff negative 08/28. Lines changed 08/28. Sputum 08/30 - Pseudomonas Sputum 09/02 PSAE, resistant to carbapenem, intermediate to Levaquin. 09/07 - urine -Maribell Guilliermondii 09/07 - blood cultures 2 - no growth 09/09 - urine -strep viridans, Maribell parapsilosis 09/10 - blood cultures 2 -no growth 09/11 - broch washings -no growth to date 09/12 - urine -Maribell glabrata and parapsilosis 09/16 - blood cultures 2 - pending 09/16 - sputum -no growth 09/16 - urine -Maribell glabrata and parapsilosis 10/02 - blood cultures 2 - staph epi 10/02 - urine - ESBL positive Klebsiella 10/04 - blood cultures 2 -no growth 10/05 - blood cultures 2 -no growth 10/17 - blood cultures -no growth 10/17 - sputum -Klebsiella ESBL positive and Stenotrophomonas maltophilia 10/17 - urine -C glabrata 10/21/ 10/22 - urine - ESBL positive Klebsiella Dysphagia, improving -Tolerating soft diet, calorie count in place -GI following, once calorie count is down, may consider removal of peg Left IJ/subclavian nonocclusive thrombus 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 - PEG 09/01/16 - Trach 09/15 - Right Permacath placed 09/29 Contacts: Loree Marinelli, daughter (HCP): [phone] Rony Catalanlone, significant other: [phone] Discharge Planning As of 11/03/16: SSI pending Sofy Simms Nov 06, 2016 10:33
[2016-11-06] MEDS: DOCUSATE SODIUM 100 MG/10 ML UDC PO SCH ×2 (11:45→21:11)
[2016-11-06] MEDS: MORPHINE SULFATE 4 MG/ML INJ IV PRN ×2 (11:45→21:12)
[2016-11-06] MEDS: FAMOTIDINE 40 MG/5 ML LIQ 50 ML BTL NG SCH ×2 (11:46→21:11)
[2016-11-06] MEDS: POTASSIUM CHLORIDE 20 MEQ PWD PACKET NG SCH ×2 (11:46→21:00)
[2016-11-06] MEDS: ARTIFICIAL TEARS OPTH SOLN 15 ML BTL EACH EYE SCH ×3 (11:53→18:14)
[2016-11-06] MEDS: BENEPROTEIN POWDER 1 PACK G-TUBE SCH ×3 (11:54→18:13)
[2016-11-06] MEDS: EUCERIN CREAM 120 GM JAR TOPICAL SCH ×2 (11:54→21:00)
[2016-11-06] MEDS: SODIUM CHLORIDE 0.9% FLUSH 10 ML FLUSH IV FLUSH SCH ×2 (11:54→21:00)
--- NOTE | 2016-11-06 12:21 | HHI.GIFU ---
Subjective Remarks Up in chair. No problems swallowing. States she is eating well. Nurse confirms that she is eating 75-100% of meals and that her PEG tube is not being used. (Michelle Alba) Objective Vitals I&O Vital Signs Date Time Temp Pulse Resp B/P Pulse Ox O2 Delivery O2 Flow Rate FiO2 11/06/16 08:00 97.7 75 18 102/69 99 11/06/16 07:53 97 T-piece 5.00 28 11/06/16 05:06 98 T-Piece 28 Humidified 11/06/16 04:00 98.6 83 16 129/86 99 11/06/16 02:00 98 T-Piece 28 Humidified 11/06/16 01:00 97.6 101 18 99/68 94 11/06/16 00:37 97 T-piece 28 11/05/16 20:54 93 T-piece 28.00 11/05/16 20:21 98.9 100 18 117/71 94 11/05/16 20:05 95 T-Piece 28 11/05/16 20:00 94 11/05/16 16:00 99.6 86 22 103/68 97 11/05/16 14:10 18 I/O 11/05/16 11/05/16 11/05/16 11/06/16 11/06/16 11/06/16 07:00 15:00 23:00 07:00 15:00 23:00 Intake Total 346 ml 720 ml 200 ml Output Total 400 ml 500 ml 1550 ml 600 ml Balance -54 ml 220 ml -1550 ml -400 ml Intake Oral 720 ml 200 ml Tube Feeding 286 ml Other 60 ml Output Urine Total 400 ml 500 ml 1550 ml 600 ml # Bowel Movements 1 1 2 0 Laboratory Laboratory Tests Test 11/06/16 08:45 Prothrombin Time 32.1 Prothromb Time International 2.8 Ratio Activated Partial 44.5 Thromboplast Time Imaging Last Impressions Chest X-Ray 10/31/16 0600 Signed Impressions: Service Date/Time: Monday, October 31, 2016 04:14 - CONCLUSION: Small area of consolidation in the left upper lobe stable from the previous study Leonides Mason MD Central Venous Line 10/20/16 0000 Signed Impressions: Service Date/Time: Thursday, October 20, 2016 00:00 - CONCLUSION: Uncomplicated Permcath removal. Didier Zhang MD Catheter Placement X-Ray 09/29/16 1223 Signed Impressions: Service Date/Time: Thursday, September 29, 2016 12:31 - CONCLUSION: Vas-Cath to PermCath exchange as detailed above. Taco Haas Jr., MD Renal Ultrasound 09/17/16 0000 Signed Impressions: Service Date/Time: Saturday, September 17, 2016 13:31 - CONCLUSION: Negative renal sonogram. Taco Davidson MD Upper Extremity Ultrasound 09/14/16 0000 Signed Impressions: Service Date/Time: August 08:32 - CONCLUSION: There is thrombus within the left subclavian and internal jugular veins. Danyel Escalante MD Lower Extremity Ultrasound 09/13/16 0000 Signed Impressions: Service Date/Time: Tuesday, September 13, 2016 22:33 - CONCLUSION: Normal examination. Leonides Mason MD Liver Ultrasound 09/08/16 0000 Signed Impressions: Service Date/Time: Thursday, September 08, 2016 08:45 - CONCLUSION: 1. Cholelithiasis with distended gallbladder. However, there are no associated findings present to diagnose acute cholecystitis. If there is persistent clinical concern for acute cholecystitis could evaluate for cystic duct obstruction with hepatobiliary scintigraphy. 2. Hepatomegaly with very heterogeneous echotexture and steatosis. Dejan Allison MD Gall Bladder Ultrasound 08/29/16 0000 Signed Impressions: Service Date/Time: Monday, August 29, 2016 15:21 - CONCLUSION: 1. Hepatomegaly with heterogeneous echotexture throughout the liver. 2. There is a large echogenic area near the neck of the gallbladder suggestive of a stone, but despite its large size, demonstrates no acoustic shadowing in any of the views. Taco Davidson MD CT Angiography 08/15/16 0000 Signed Impressions: Service Date/Time: Monday, August 15, 2016 02:33 - CONCLUSION: 1. No evidence for pulmonary embolism. 2. Multifocal consolidation greatest in the right lower lobe and associated adenopathy. Terry Estrada MD Physical Exam HEENT: Pupils equal and round. trach CHEST: diminished breath sounds CARDIAC: RRR ABDOMEN: Soft, obese; bowel sounds active . Peg site clean, dry EXTREMITIES: No clubbing, cyanosis, general edema SKIN: no rash, jaundice LEACH RUNNER: Alert and oriented (Michelle Alba) Assessment and Plan Plan ASSESSMENT: - Dysphagia/FEN. Pt was treated in ICU being treated for acute respiratory failure, CHF, pneumonia, hypothyroidism, and multiple electrolyte abnormalities. She underwent EGD with PEG tube placement at that time, which revealed erythematous gastritis. She is now on the medical floor and eating S/P EGD with peg tube placement (09/01/16), ----> erythematous gastritis, peg tube placement. Patient would like PEG tube removed. Her TF was turned off on 10/30. S/P Calorie Count, resulted 11/03----> average po intake is 1175 kcals and 70 gms protein per day. This meets 70% of her kcal needs and 100% of her protein needs. Pt has a BMI of 43.2. Remains at high nutrition risk 2' to pressure ulcer. Recommended continuing Heart healthy diet and milking worker will follow. Nurse reports that she is now eating 75-100% of meals without difficulty. PEG tube removed without difficulty. - GI bleed, Episode of rectal bleeding x 1. Hemoccult negative Hgb stable. No further episodes. 9.8/30.2. PLAN: - S/P removal of PEG tube - NPO x 4 hours - Gas Generator Operator following - GI will sign off, please reconsult as needed - Pt seen and examined by Dr. Garcia and myself and this note is written on his behalf (Michelle Alba) Physician Comments PEG removed by HERBARIUM WORKER. Available PRN. Thank you (Kat Garcia MD) Michelle Alba Nov 06, 2016 12:20 Kat Garcia MD Nov 06, 2016 19:30
[2016-11-06] MEDS ORDERED: WARFARIN SOD 5 MG TAB PO SCH (16:00)
[2016-11-06] MEDS: MELATONIN 5 MG TAB PO SCH (21:10)
[2016-11-06] MEDS: PRAVASTATIN SOD 20 MG TAB PO SCH (21:11)
[2016-11-06] MEDS: ACETAMINOPHEN 325 MG TAB PO PRN (23:00)
[2016-11-07] VITALS (10 sets, daily range): BP systolic 105–136; BP diastolic 68–89; PULSE 75–102; RESP 17–19; TEMP 96.6–97.6; O2SAT 95–100
[2016-11-07] MEDS: RESP: COLISTIN 150 MG VIAL NEB SCH ×3 (00:23→15:49)
[2016-11-07] MEDS: CHLORHEXIDINE GLUCONATE 2 % 1 PACK (2 CLOTHS) TOP SCH (04:00)
[2016-11-07] MEDS: LEVOTHYROXINE SODIUM 200 MCG TAB PO SCH (05:08)
[2016-11-07] MEDS: QUEtiapine FUMARATE 25 MG TAB PO SCH ×3 (05:08→20:33)
[2016-11-07] MEDS: METOPROLOL TARTRATE 25 MG TAB G-TUBE SCH ×3 (05:08→20:33)
[2016-11-07 07:12] LABS: MEAN CELL VOLUME 83.7 FL (80.0-100.0); MEAN CORPUSCULAR HEMOGLOBIN 27.6 PG (27.0-34.0); PLATELET COUNT 278 TH/MM3 (150-450); RED BLOOD COUNT 3.35 MIL/MM3 (4.00-5.30); RED CELL DISTRIBUTION WIDTH 18.8 % (11.6-17.2); REVIEW FLAG FINAL; WHITE BLOOD COUNT 8.8 TH/MM3 (4.0-11.0)
[2016-11-07 07:20] LABS: APTT (PATIENT) 44.1 SEC (24.3-30.1); INTERNATIONAL NORMALIZED RATIO 2.7 RATIO
[2016-11-07] MEDS: BENEPROTEIN POWDER 1 PACK G-TUBE SCH ×3 (09:00→16:46)
[2016-11-07] MEDS: SODIUM CHLORIDE 0.9% FLUSH 10 ML FLUSH IVF SCH (09:00)
--- NOTE | 2016-11-07 09:13 | HHI.PR ---
Subjective Remarks Follow up. Patient laying in bed, able to communicate by lip reading. She just fished breakfast. No new complaints. Peg tube was removed yesterday. Denies any nausea, vomiting, chest pain or abdominal pain. Objective Vitals Vital Signs Date Time Temp Pulse Resp B/P Pulse Ox O2 Delivery O2 Flow Rate FiO2 11/07/16 08:53 98 T-piece 5.00 28 11/07/16 08:00 96.6 78 18 118/83 98 11/07/16 06:48 97.4 76 17 116/89 98 11/07/16 04:11 T-Piece 28 11/07/16 01:55 101 11/07/16 00:23 98 T-piece 28 11/07/16 00:00 97.0 77 17 105/72 97 11/06/16 20:06 98 T-piece 28 11/06/16 20:00 99.1 95 24 121/65 95 11/06/16 12:00 98.2 88 19 120/77 100 11/06/16 11:50 18 I/O 11/06/16 11/06/16 11/06/16 11/07/16 11/07/16 11/07/16 07:00 15:00 23:00 07:00 15:00 23:00 Intake Total 200 ml 720 ml Output Total 600 ml 1600 ml 350 ml Balance -400 ml -880 ml -350 ml Intake Oral 200 ml 720 ml Output Urine Total 600 ml 1600 ml 350 ml # Bowel Movements 0 0 0 Result Diagram: 11/07/16 0630 Objective Remarks GENERAL: NAD, A&Ox3, unable to speak secondary to tracheostomy, but able to communicate with lip movement HEAD: Normocephalic. NECK: Supple, trachea midline. No lymphadenopathy. Tracheostomy present. EYES: No scleral icterus. No injection or drainage. CARDIOVASCULAR: Regular rate and rhythm without murmurs, gallops, or rubs. RESPIRATORY: Breath sounds equal bilaterally. No accessory muscle use. Upper bronchial rhonchi due to secretions. T piece in place GASTROINTESTINAL: Abdomen soft, non-tender, nondistended. MUSCULOSKELETAL: No cyanosis, or edema. SKIN: Warm and dry. NEURO: No focal neurological deficits. Medications and IVs Current Medications Medications (Trade) Dose Ordered Sig/Josephine Route Start Time Stop Time Status Last Admin (Synthroid) 200 mcg DAILY@06 PO 08/15/16 06:00 11/07/16 05:08 (Pravachol) 20 mg HS PO 08/15/16 21:00 11/06/16 21:11 (NS Flush) 2 ml UNSCH PRN IVF 08/14/16 23:15 10/08/16 11:53 (NS Flush) 2 ml BID IV FLUSH 08/15/16 09:00 11/06/16 21:00 (Tylenol) 650 mg Q6H PRN PO 08/14/16 23:15 11/06/16 23:00 (Morphine Inj) 2 mg Q2H PRN IV 08/14/16 23:15 11/06/16 21:12 (Tears Naturale Opth Soln) 1 drop TID EACH EYE 08/15/16 09:00 11/06/16 18:00 (Zofran Inj) 4 mg Q6H PRN IV 08/14/16 23:15 Miscellaneous Information 1 Q361D XX 08/14/16 23:15 (Chlorhexidine 2% Cloth) Taper DAILY@04 TOP 08/15/16 04:00 08/11/17 03:59 10/31/16 04:00 (Chlorhexidine 2% Cloth) 3 pack UNSCH PRN TOP 08/14/16 23:15 (Beneprotein Powder) 2 pack TID G-TUBE 08/15/16 09:00 11/06/16 18:13 (D50w (Vial) Inj) 25 ml UNSCH PRN IV PUSH 08/16/16 09:15 (NS Flush) DAILY IVF 09/11/16 09:00 11/04/16 09:00 (NS Flush) UNSCH PRN IVF 09/10/16 19:15 11/01/16 09:26 (Colace Liq) 100 mg BID PO 09/13/16 21:30 11/06/16 21:11 (Mannitol Inj) 12.5 gm UNSCH PRN IV 09/20/16 10:30 10/05/16 09:40 (Albumin 25% Inj) 25 gm UNSCH PRN IV 09/20/16 10:30 10/10/16 10:10 (NS Flush) 5 ml UNSCH PRN IV FLUSH 09/20/16 10:30 09/21/16 13:24 (Heparin Inj) UNSCH PRN .XX 09/20/16 10:30 10/12/16 10:48 (Gentamicin (Dialysis) Inj) 20 mg UNSCH PRN IV 09/20/16 10:30 10/14/16 12:35 (Zofran Inj) 4 mg UNSCH PRN IV 09/20/16 10:30 (Tylenol) 650 mg UNSCH PRN PO 09/20/16 10:30 (Benadryl) 25 mg UNSCH PRN PO 09/20/16 10:30 11/01/16 05:05 (Nitrostat Sl) 0.4 mg UNSCH PRN SL 09/20/16 10:30 Gelatin 1 foam 1 foam UNSCH PRN TOP 09/20/16 10:30 (Coumadin Consult Pharmacy) 0 ml @ 0 mls/hr UNSCH OTHER 09/26/16 20:45 (Eucerin Cream) 1 applic BID TOPICAL 09/27/16 21:00 11/06/16 21:00 (SEROquel) 75 mg Q8HR PO 09/28/16 14:00 11/07/16 05:08 (NS Flush) UNSCH PRN IVF 09/29/16 12:45 (Heparin Inj) UNSCH PRN IV FLUSH 09/29/16 12:45 (Melatonin) 5 mg HS PO 10/07/16 21:00 11/06/16 21:10 (Ativan Inj) 1 mg Q6H PRN IV PUSH 10/15/16 11:45 (Lopressor) 50 mg Q8HR G-TUBE 10/21/16 14:00 11/07/16 05:08 (Nitroglycerin 2% Oint) 2 inch Q6HR PRN TOPICAL 10/21/16 13:15 (KCl Powder) 20 meq Q12HR NG 10/24/16 21:00 11/06/16 21:00 (Levsin Liq) 0.125 mg Q4H PRN PO 10/26/16 12:30 11/03/16 04:31 (Pepcid Liq) 20 mg BID NG 10/30/16 21:00 11/06/16 21:11 Urinary Catheter: Yes Assessment to: Continue Miller insert reason: Prolonged Immobilization Vascular Central Line Catheter: No A/P Assessment and Plan 56-year-old female admitted with respiratory failure and pneumonia, now with chronic tracheostomy and chronic respiratory failure. Acute toxic metabolic encephalopathy, Critical care myopathy, Agitated delirium , Resolved -Cont Seroquel 75 mg every 8 hours for agitation -Cont Melatonin 5mg po qHS for insomnia -Cont Acetaminophen for fever/pain Acute on chronic hypercapnic and hypoxemic respiratory failure Pneumonia community-acquired, now with HCAP with carbapenem-resistant pseudomonas and ESBL Klebsiella VAP. Probable JOE -Tracheostomy present -Continue CPAP as needed for sleep apnea -Pulmonary toilet -Pulmonology following Hypertension, chronic, stable -Continue Lopressor -PRN Nitropaste Dyslipidemia, chronic -Continue pravastatin Acute kidney injury - requiring hemodialysis, resolved -Follow I's and O's -Trend creatine -Nephrology has signed off Elevated transaminases Cholelithiasis -Cont Pepcid BID -Follow transaminases -Follow clinically -No reports of abdominal pain today Pseudomonas pneumonia Funguria, Maribell glabrata and parapsilosis. -Colistin nebs stop date 11/09 -ID following follow cultures -History of cultures: Blood cultures 08/28: NGTD C Diff negative 08/28. Lines changed 08/28. Sputum 08/30 - Pseudomonas Sputum 09/02 PSAE, resistant to carbapenem, intermediate to Levaquin. 09/07 - urine -Maribell Guilliermondii 09/07 - blood cultures 2 - no growth 09/09 - urine -strep viridans, Maribell parapsilosis 09/10 - blood cultures 2 -no growth 09/11 - broch washings -no growth to date 09/12 - urine -Maribell glabrata and parapsilosis 09/16 - blood cultures 2 - pending 09/16 - sputum -no growth 09/16 - urine -Maribell glabrata and parapsilosis 10/02 - blood cultures 2 - staph epi 10/02 - urine - ESBL positive Klebsiella 10/04 - blood cultures 2 -no growth 10/05 - blood cultures 2 -no growth 10/17 - blood cultures -no growth 10/17 - sputum -Klebsiella ESBL positive and Stenotrophomonas maltophilia 10/17 - urine -C glabrata 10/21/ 10/22 - urine - ESBL positive Klebsiella Dysphagia, improving -Tolerating soft diet -Peg removed on 11/06/16 Left IJ/subclavian nonocclusive thrombus 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 - PEG 09/01/16, removed 11/06/16 - Trach 09/15 - Right Permacath placed 09/29 Contacts: Loree Marinelli, daughter (HCP): [phone] Rony Isis, significant other: [phone] Discharge Planning As of 11/03/16: SSI pending Sofy Simms Nov 07, 2016 09:13
[2016-11-07] MEDS: DOCUSATE SODIUM 100 MG/10 ML UDC PO SCH ×2 (10:31→20:32)
[2016-11-07] MEDS: FAMOTIDINE 40 MG/5 ML LIQ 50 ML BTL NG SCH ×2 (10:31→22:00)
[2016-11-07] MEDS: SODIUM CHLORIDE 0.9% FLUSH 10 ML FLUSH IV FLUSH SCH ×2 (10:32→20:27)
[2016-11-07] MEDS: ARTIFICIAL TEARS OPTH SOLN 15 ML BTL EACH EYE SCH ×3 (10:33→16:46)
[2016-11-07] MEDS: POTASSIUM CHLORIDE 20 MEQ PWD PACKET NG SCH ×2 (10:34→20:33)
[2016-11-07] MEDS: EUCERIN CREAM 120 GM JAR TOPICAL SCH ×2 (10:37→20:34)
[2016-11-07] MEDS: MORPHINE SULFATE 4 MG/ML INJ IV PRN ×2 (13:55→20:28)
[2016-11-07] MEDS: WARFARIN SOD 7.5 MG TAB PO SCH (16:44)
--- NOTE | 2016-11-07 19:44 | HHI.PR ---
Subjective Remarks On T Bar 28 % all the time .Feels better. Trach changed Taking a diet. Objective Vital Signs Date Time Temp Pulse Resp B/P Pulse Ox O2 Delivery O2 Flow Rate FiO2 11/07/16 15:54 100 T-piece 28 11/07/16 14:00 18 11/07/16 12:00 97.6 82 19 136/77 100 11/07/16 08:53 98 T-piece 5.00 28 11/07/16 08:00 96 T-Piece 28 Humidified 11/07/16 08:00 96.6 78 18 118/83 98 11/07/16 08:00 75 11/07/16 06:48 97.4 76 17 116/89 98 11/07/16 04:11 T-Piece 28 11/07/16 01:55 101 11/07/16 00:23 98 T-piece 28 11/07/16 00:00 97.0 77 17 105/72 97 11/06/16 20:06 98 T-piece 28 11/06/16 20:00 99.1 95 24 121/65 95 I/O 11/06/16 11/06/16 11/06/16 11/07/16 11/07/16 11/07/16 07:00 15:00 23:00 07:00 15:00 23:00 Intake Total 200 ml 720 ml 480 ml 480 ml Output Total 600 ml 1600 ml 350 ml 1250 ml Balance -400 ml -880 ml -350 ml 480 ml -770 ml Intake Oral 200 ml 720 ml 480 ml 480 ml Output Urine Total 600 ml 1600 ml 350 ml 1250 ml # Bowel Movements 0 0 0 Result Diagram: 11/07/16 0630 Objective Remarks This is an obese middle-aged white female who is alert HEENT: Head normocephalic.throat clear.Trach is In . Neck: No bruits, no thyroid enlargement, no lymphadenopathy.No JVD Chest: Decreased breath sounds. and few wheezes.Occ Crackles Heart: Heart sounds were regular. S1-S2 no murmur, no S3. Abdomen: Soft, benign. No masses, or tenderness. Bowel sounds are active. Extremities:min edema . Neuro :Moves all limbs.no deficits. Alert and Oriented Assessment and Plan Assessment and Plan IMPRESSION 1. Acute hypercapnic respiratory failure.Resolving 2. Pulmonary edema. 3. Drug rash 4. Obstructive sleep apnea syndrome 5. Hypertension 6. Hypothyroidism. 7. MIKE Plan : 1. Cont on T Bar 28 % all the time 2. Trach toilet and suctioning. 3. Nebs qijami , tristonb. 4. Rehab placement 5. Use PM valve to talk. 6. Cap trach next week if stable with PM valve 7. Tube feeds at 60 CC 8. Po liquids as tolerated 9. Up in chair daily. Abimael Beck MD Nov 07, 2016 19:44
[2016-11-07] MEDS: PRAVASTATIN SOD 20 MG TAB PO SCH (20:33)
[2016-11-07] MEDS: MELATONIN 5 MG TAB PO SCH (20:33)
[2016-11-07] MEDS: ACETAMINOPHEN 325 MG TAB PO PRN (22:00)
[2016-11-08] VITALS (8 sets, daily range): BP systolic 97–132; BP diastolic 60–76; PULSE 75–104; RESP 16–20; TEMP 96.9–98.2; O2SAT 92–98
[2016-11-08] MEDS: RESP: COLISTIN 150 MG VIAL NEB SCH ×3 (00:50→15:15)
[2016-11-08] MEDS: CHLORHEXIDINE GLUCONATE 2 % 1 PACK (2 CLOTHS) TOP SCH (04:00)
[2016-11-08] MEDS: METOPROLOL TARTRATE 25 MG TAB G-TUBE SCH ×3 (06:34→22:08)
[2016-11-08] MEDS: LEVOTHYROXINE SODIUM 200 MCG TAB PO SCH (06:35)
[2016-11-08] MEDS: QUEtiapine FUMARATE 25 MG TAB PO SCH ×3 (06:35→22:08)
--- NOTE | 2016-11-08 07:30 | RADRPT ---
EXAM DATE/TIME: 11/08/2016 06:20 [facility] COMPARISON: CHEST SINGLE AP, October 31, 2016, 4:14. INDICATIONS : Infiltrate. MEDICAL HISTORY : Congestive heart failure. SURGICAL HISTORY : Tracheostomy. ENCOUNTER: Subsequent ACUITY: 2 days PAIN SCORE: 0/10 LOCATION: Bilateral chest FINDINGS: Portable AP view of the chest demonstrates a normal-sized cardiac silhouette. Tracheostomy overlies t he tracheal air shadow. Lungs are underinflated. Linear opacity at the right lung base likely represe nts atelectasis. No effusion or pneumothorax is identified. Bones and soft tissues demonstrate no acu te finding. CONCLUSION: Underinflation with linear opacity at the right lung base. The appearance favors atelectasis over con solidation. Dejan Allison MD on November 08, 2016 at 7:28 Board Certified Radiologist. This report was verified electronically.
[2016-11-08 07:45] LABS: HEMATOCRIT 29.3 % (35.0-46.0); MEAN CELL VOLUME 84.9 FL (80.0-100.0); MEAN CORPUSCULAR HEMOGLOBIN 27.3 PG (27.0-34.0); MEAN CORPUSCULAR HGB CONC 32.1 % (32.0-36.0); PLATELET COUNT 318 TH/MM3 (150-450); RED BLOOD COUNT 3.45 MIL/MM3 (4.00-5.30); REVIEW FLAG FINAL; WHITE BLOOD COUNT 8.3 TH/MM3 (4.0-11.0)
[2016-11-08 07:55] LABS: INTERNATIONAL NORMALIZED RATIO 2.2 RATIO; PROTHROMBIN TIME - PATIENT 25.5 SEC (9.8-11.6)
[2016-11-08 08:17] LABS: ANION GAP 12 MEQ/L (5-15); BICARBONATE 21.8 MEQ/L (21.0-32.0); BLOOD UREA NITROGEN 21 MG/DL (7-18); CHLORIDE 103 MEQ/L (98-107); GLOMERULAR FILTRATION RATE 70 ML/MIN (>89); POTASSIUM 4.2 MEQ/L (3.5-5.1); SODIUM (NA) 137 MEQ/L (136-145)
[2016-11-08 08:18] LABS: TRANSFERRIN IRON PROFILE 202 MG/DL (200-360)
[2016-11-08 08:21] LABS: FERRITIN 504 NG/ML (8-252)
[2016-11-08] MEDS: FAMOTIDINE 40 MG/5 ML LIQ 50 ML BTL NG SCH ×2 (08:57→22:20)
[2016-11-08] MEDS: SODIUM CHLORIDE 0.9% FLUSH 10 ML FLUSH IV FLUSH SCH ×2 (08:57→22:08)
[2016-11-08] MEDS: DOCUSATE SODIUM 100 MG/10 ML UDC PO SCH ×2 (08:57→22:09)
[2016-11-08] MEDS: POTASSIUM CHLORIDE 20 MEQ PWD PACKET NG SCH ×2 (08:57→22:07)
[2016-11-08] MEDS: EUCERIN CREAM 120 GM JAR TOPICAL SCH ×2 (08:57→22:23)
[2016-11-08] MEDS: ARTIFICIAL TEARS OPTH SOLN 15 ML BTL EACH EYE SCH ×3 (08:57→17:35)
[2016-11-08] MEDS: SODIUM CHLORIDE 0.9% FLUSH 10 ML FLUSH IVF SCH (09:00)
[2016-11-08] MEDS: BENEPROTEIN POWDER 1 PACK G-TUBE SCH ×4 (09:00→17:40)
[2016-11-08] MEDS ORDERED: MAGNESIUM HYDROXIDE SUSP 30 ML CUP PO ONE (10:30)
--- NOTE | 2016-11-08 12:27 | HHI.PR ---
Subjective Remarks Follow up for respiratory failure. Pt is non-verbal but communicates by lip reading, responding with appropriate head nods/shakes, and mouths words. Patient laying in bed, on trach tube in NAD No new complaints. Peg tube was recently removed and without pain/discomfort. She is eating (soft diet) and denied difficulty with swallowing/ingestion of food. Denies any nausea, vomiting, chest pain or abdominal pain. Pt's RN (Adrianne) reported pt without bowel movement since 11/05/16. RN also stated pt appears to be anxious when her T-Tube loosens. No otehr issues noted or reported. Objective Vitals Vital Signs Date Time Temp Pulse Resp B/P Pulse Ox O2 Delivery O2 Flow Rate FiO2 11/08/16 09:06 97 T-piece 5.00 28 11/08/16 08:20 97 Trach Collar 6.00 28 11/08/16 07:39 87 11/08/16 05:16 97.6 104 18 110/67 94 11/08/16 00:16 97.6 83 18 122/76 97 11/07/16 21:26 97.2 98 18 114/68 95 11/07/16 20:00 T-Piece 5.00 28 Humidified 11/07/16 20:00 102 11/07/16 15:54 100 T-piece 28 11/07/16 14:00 18 I/O 11/07/16 11/07/16 11/07/16 11/08/16 11/08/16 11/08/16 07:00 15:00 23:00 07:00 15:00 23:00 Intake Total 480 ml 480 ml 360 ml Output Total 350 ml 1250 ml 750 ml Balance -350 ml 480 ml -770 ml -390 ml Intake Oral 480 ml 480 ml 360 ml Output Urine Total 350 ml 1250 ml 750 ml # Bowel Movements 0 Result Diagram: 11/08/16 0730 11/08/16 0730 Imaging Last Impressions Chest X-Ray 11/08/16 0600 Signed Impressions: Service Date/Time: Tuesday, November 08, 2016 06:20 - CONCLUSION: Underinflation with linear opacity at the right lung base. The appearance favors atelectasis over consolidation. Dejan Allison MD Central Venous Line 10/20/16 0000 Signed Impressions: Service Date/Time: Thursday, October 20, 2016 00:00 - CONCLUSION: Uncomplicated Permcath removal. Didier Zhang MD Catheter Placement X-Ray 09/29/16 1223 Signed Impressions: Service Date/Time: Thursday, September 29, 2016 12:31 - CONCLUSION: Vas-Cath to PermCath exchange as detailed above. Taco Haas Jr., MD Renal Ultrasound 09/17/16 0000 Signed Impressions: Service Date/Time: Saturday, September 17, 2016 13:31 - CONCLUSION: Negative renal sonogram. Taco Davidson MD Upper Extremity Ultrasound 09/14/16 0000 Signed Impressions: Service Date/Time: August 08:32 - CONCLUSION: There is thrombus within the left subclavian and internal jugular veins. Danyel Escalante MD Lower Extremity Ultrasound 09/13/16 0000 Signed Impressions: Service Date/Time: Tuesday, September 13, 2016 22:33 - CONCLUSION: Normal examination. Leonides Mason MD Liver Ultrasound 09/08/16 0000 Signed Impressions: Service Date/Time: Thursday, September 08, 2016 08:45 - CONCLUSION: 1. Cholelithiasis with distended gallbladder. However, there are no associated findings present to diagnose acute cholecystitis. If there is persistent clinical concern for acute cholecystitis could evaluate for cystic duct obstruction with hepatobiliary scintigraphy. 2. Hepatomegaly with very heterogeneous echotexture and steatosis. Dejan Allison MD Gall Bladder Ultrasound 08/29/16 0000 Signed Impressions: Service Date/Time: Monday, August 29, 2016 15:21 - CONCLUSION: 1. Hepatomegaly with heterogeneous echotexture throughout the liver. 2. There is a large echogenic area near the neck of the gallbladder suggestive of a stone, but despite its large size, demonstrates no acoustic shadowing in any of the views. Taco Davidson MD CT Angiography 08/15/16 0000 Signed Impressions: Service Date/Time: Monday, August 15, 2016 02:33 - CONCLUSION: 1. No evidence for pulmonary embolism. 2. Multifocal consolidation greatest in the right lower lobe and associated adenopathy. Terry Estrada MD Objective Remarks GENERAL: Pt laying a bed, t-tube in place, NAD. SKIN: Warm and dry. HEAD: Normocephalic. EYES: No scleral icterus. No injection or drainage. NECK: Supple, trachea midline T-tube in place. No lymphadenopathy. CARDIOVASCULAR: Regular rate and rhythm without murmurs, gallops, or rubs. RESPIRATORY: Breath sounds equal bilaterally. No accessory muscle use. GASTROINTESTINAL: Abdomen soft, non-tender, nondistended. MUSCULOSKELETAL: No cyanosis, or edema. PSYCHIATRIC: Pt Alert and oriented, no overt signs of depression and/or anxiety. Medications and IVs Current Medications Medications (Trade) Dose Ordered Sig/Josephine Route Start Time Stop Time Status Last Admin (Synthroid) 200 mcg DAILY@06 PO 08/15/16 06:00 11/08/16 06:35 (Pravachol) 20 mg HS PO 08/15/16 21:00 11/07/16 20:33 (NS Flush) 2 ml UNSCH PRN IVF 08/14/16 23:15 10/08/16 11:53 (NS Flush) 2 ml BID IV FLUSH 08/15/16 09:00 11/08/16 08:57 (Tylenol) 650 mg Q6H PRN PO 08/14/16 23:15 11/07/16 22:00 (Morphine Inj) 2 mg Q2H PRN IV 08/14/16 23:15 11/07/16 20:28 (Tears Naturale Opth Soln) 1 drop TID EACH EYE 08/15/16 09:00 11/08/16 08:57 (Zofran Inj) 4 mg Q6H PRN IV 08/14/16 23:15 Miscellaneous Information 1 Q361D XX 08/14/16 23:15 (Chlorhexidine 2% Cloth) Taper DAILY@04 TOP 08/15/16 04:00 08/11/17 03:59 10/31/16 04:00 (Chlorhexidine 2% Cloth) 3 pack UNSCH PRN TOP 08/14/16 23:15 (Beneprotein Powder) 2 pack TID G-TUBE 08/15/16 09:00 11/07/16 16:46 (D50w (Vial) Inj) 25 ml UNSCH PRN IV PUSH 08/16/16 09:15 (NS Flush) DAILY IVF 09/11/16 09:00 11/08/16 09:00 (NS Flush) UNSCH PRN IVF 09/10/16 19:15 6/7/17 09:26 (Colace Liq) 100 mg BID PO 09/13/16 21:30 11/08/16 08:57 (Mannitol Inj) 12.5 gm UNSCH PRN IV 09/20/16 10:30 10/05/16 09:40 (Albumin 25% Inj) 25 gm UNSCH PRN IV 09/20/16 10:30 10/10/16 10:10 (NS Flush) 5 ml UNSCH PRN IV FLUSH 09/20/16 10:30 09/21/16 13:24 (Heparin Inj) UNSCH PRN .XX 09/20/16 10:30 10/12/16 10:48 (Gentamicin (Dialysis) Inj) 20 mg UNSCH PRN IV 09/20/16 10:30 10/14/16 12:35 (Zofran Inj) 4 mg UNSCH PRN IV 09/20/16 10:30 (Tylenol) 650 mg UNSCH PRN PO 09/20/16 10:30 (Benadryl) 25 mg UNSCH PRN PO 09/20/16 10:30 11/01/16 05:05 (Nitrostat Sl) 0.4 mg UNSCH PRN SL 09/20/16 10:30 Gelatin 1 foam 1 foam UNSCH PRN TOP 09/20/16 10:30 (Coumadin Consult Pharmacy) 0 ml @ 0 mls/hr UNSCH OTHER 09/26/16 20:45 (Eucerin Cream) 1 applic BID TOPICAL 09/27/16 21:00 11/08/16 08:57 (SEROquel) 75 mg Q8HR PO 09/28/16 14:00 11/08/16 06:35 (NS Flush) UNSCH PRN IVF 09/29/16 12:45 (Heparin Inj) UNSCH PRN IV FLUSH 09/29/16 12:45 (Melatonin) 5 mg HS PO 10/07/16 21:00 11/07/16 20:33 (Ativan Inj) 1 mg Q6H PRN IV PUSH 10/15/16 11:45 (Lopressor) 50 mg Q8HR G-TUBE 10/21/16 14:00 11/08/16 06:34 (Nitroglycerin 2% Oint) 2 inch Q6HR PRN TOPICAL 10/21/16 13:15 (KCl Powder) 20 meq Q12HR NG 10/24/16 21:00 11/08/16 08:57 (Levsin Liq) 0.125 mg Q4H PRN PO 10/26/16 12:30 11/03/16 04:31 (Pepcid Liq) 20 mg BID NG 10/30/16 21:00 11/08/16 08:57 (Coumadin) 7.5 mg DAILY@16 PO 11/07/16 16:00 11/07/16 16:44 Urinary Catheter: Yes Miller insert reason: Prolonged Immobilization Vascular Central Line Catheter: No A/P Assessment and Plan 56-year-old female admitted with respiratory failure and pneumonia, now with chronic tracheostomy and chronic respiratory failure. Acute toxic metabolic encephalopathy Critical care myopathy Agitated delirium -Resolved -Seroquel 75 mg every 8 hours for agitation -Melatonin 5mg po qHS for insomnia -Acetaminophen for fever/pain Acute on chronic hypercapnic and hypoxemic respiratory failure Pneumonia community-acquired, now with HCAP with carbapenem-resistant pseudomonas and ESBL Klebsiella VAP. 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 -Colistin nebs stop date 11/09 -ID following follow cultures -History of cultures: Blood cultures 08/28: NGTD C Diff negative 08/28. Lines changed 08/28. Sputum 08/30 - Pseudomonas Sputum 09/02 PSAE, resistant to carbapenem, intermediate to Levaquin. 09/07 - urine -Maribell Guilliermondii 09/07 - blood cultures 2 - no growth 09/09 - urine -strep viridans, Maribell parapsilosis 09/10 - blood cultures 2 -no growth 09/11 - broch washings -no growth to date 09/12 - urine -Maribell glabrata and parapsilosis 09/16 - blood cultures 2 - pending 09/16 - sputum -no growth 09/16 - urine -Maribell glabrata and parapsilosis 10/02 - blood cultures 2 - staph epi 10/02 - urine - ESBL positive Klebsiella 10/04 - blood cultures 2 -no growth 10/05 - blood cultures 2 -no growth 10/17 - blood cultures -no growth 10/17 - sputum -Klebsiella ESBL positive and Stenotrophomonas maltophilia 10/17 - urine -C glabrata 10/21/ 10/22 - urine - ESBL positive Klebsiella Left IJ/subclavian nonocclusive thrombus 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 - PEG 09/01/16 - Trach 09/15 - Right Permacath placed 09/29 Case discussed with pt, RN (Adrianne) and Dr. Walsh. Discharge Planning Case management following [id number] facility is likely needed Contacts: Loree Marinelli, daughter (HCP): [phone] Rony Matthewzalone, significant other: [phone] Alessandro Coyle Jr. Nov 08, 2016 12:27
[2016-11-08] MEDS: MORPHINE SULFATE 4 MG/ML INJ IV PRN ×2 (12:38→22:08)
[2016-11-08] MEDS: WARFARIN SOD 7.5 MG TAB PO SCH (16:32)
--- NOTE | 2016-11-08 19:40 | HHI.PR ---
Subjective Remarks On T Bar 28 % . Trach changed. She feels better Able to talk with PM valve Objective Vital Signs Date Time Temp Pulse Resp B/P Pulse Ox O2 Delivery O2 Flow Rate FiO2 11/08/16 13:35 101 115/65 11/08/16 12:43 18 11/08/16 12:00 96.9 102 16 118/69 93 11/08/16 09:06 97 T-piece 5.00 28 11/08/16 08:20 97 Trach Collar 6.00 28 11/08/16 08:00 97.2 75 17 97/65 98 11/08/16 07:39 87 11/08/16 05:16 97.6 104 18 110/67 94 11/08/16 00:16 97.6 83 18 122/76 97 11/07/16 21:26 97.2 98 18 114/68 95 11/07/16 20:00 T-Piece 5.00 28 Humidified 11/07/16 20:00 102 I/O 11/07/16 11/07/16 11/07/16 11/08/16 11/08/16 11/08/16 07:00 15:00 23:00 07:00 15:00 23:00 Intake Total 480 ml 480 ml 360 ml 700 ml Output Total 350 ml 1250 ml 750 ml 700 ml Balance -350 ml 480 ml -770 ml -390 ml -700 ml 700 ml Intake Oral 480 ml 480 ml 360 ml 700 ml Output Urine Total 350 ml 1250 ml 750 ml 700 ml # Bowel Movements 0 Result Diagram: 11/08/16 0730 11/08/16 0730 Objective Remarks This is an obese middle-aged white female who is alert HEENT: Head normocephalic.throat clear.Trach site OK Neck: No bruits, no thyroid enlargement, no lymphadenopathy.No JVD Chest: Decreased breath sounds. and few wheezes. Heart: Heart sounds were regular. S1-S2 no murmur, no S3. Abdomen: Soft, benign. No masses, or tenderness. Bowel sounds are active. Extremities:min edema . Neuro :Moves all limbs.no deficits. Alert and Oriented Assessment and Plan Assessment and Plan IMPRESSION 1. Acute hypercapnic respiratory failure.Resolving 2. Pulmonary edema. 3. Drug rash 4. Obstructive sleep apnea syndrome 5. Hypertension 6. Hypothyroidism. 7. MIKE Plan : 1. Cont on T Bar 28 % all the time 2. Trach toilet and suctioning. 3. Nebs qid , duoneb. 4. Rehab placement 5. Use PM valve to talk. 6. Cap trach next week if stable with PM valve 7. Tube feeds at 60 CC 8. CBC,BMP in am 9. Up in chair daily. Abimael Beck MD Nov 08, 2016 19:40
[2016-11-08] MEDS: MELATONIN 5 MG TAB PO SCH (22:08)
[2016-11-08] MEDS: PRAVASTATIN SOD 20 MG TAB PO SCH (22:09)
[2016-11-09] VITALS (8 sets, daily range): BP systolic 116–128; BP diastolic 72–85; PULSE 63–106; RESP 20–22; TEMP 96.9–99.3; O2SAT 94–96
[2016-11-09] MEDS: CHLORHEXIDINE GLUCONATE 2 % 1 PACK (2 CLOTHS) TOP SCH (04:00)
[2016-11-09] MEDS: LEVOTHYROXINE SODIUM 200 MCG TAB PO SCH (05:51)
[2016-11-09] MEDS: METOPROLOL TARTRATE 25 MG TAB G-TUBE SCH ×4 (05:51→22:42)
[2016-11-09] MEDS: QUEtiapine FUMARATE 25 MG TAB PO SCH ×4 (05:51→22:43)
[2016-11-09] MEDS: RESP: COLISTIN 150 MG VIAL NEB SCH ×3 (08:00→16:26)
[2016-11-09] MEDS: BENEPROTEIN POWDER 1 PACK G-TUBE SCH ×3 (09:00→16:59)
[2016-11-09] MEDS: SODIUM CHLORIDE 0.9% FLUSH 10 ML FLUSH IVF SCH (09:00)
[2016-11-09] MEDS: SODIUM CHLORIDE 0.9% FLUSH 10 ML FLUSH IV FLUSH SCH ×2 (09:00→21:24)
[2016-11-09 09:16] LABS: BASOPHIL # 0.1 TH/MM3 (0-0.2); BASOPHIL % 1.2 % (0.0-2.0); EOSINOPHIL # 0.5 TH/MM3 (0-0.4); EOSINOPHIL % 5.2 % (0.0-4.0); HEMATOCRIT 30.3 % (35.0-46.0); HEMO FLAGS DIFF FINAL; LYMPH % 44.6 % (9.0-44.0); LYMPHOCYTE # 4.1 TH/MM3 (1.0-4.8); MEAN CELL VOLUME 84.3 FL (80.0-100.0); MEAN CORPUSCULAR HEMOGLOBIN 27.7 PG (27.0-34.0); MEAN CORPUSCULAR HGB CONC 32.9 % (32.0-36.0); MONO % 5.3 % (0.0-8.0); NEUT % 43.7 % (16.0-70.0); PLATELET COUNT 349 TH/MM3 (150-450); RED CELL DISTRIBUTION WIDTH 18.1 % (11.6-17.2); WHITE BLOOD COUNT 9.2 TH/MM3 (4.0-11.0)
[2016-11-09] MEDS: ARTIFICIAL TEARS OPTH SOLN 15 ML BTL EACH EYE SCH ×3 (09:16→16:59)
[2016-11-09] MEDS: EUCERIN CREAM 120 GM JAR TOPICAL SCH ×2 (09:16→21:29)
[2016-11-09] MEDS: DOCUSATE SODIUM 100 MG/10 ML UDC PO SCH (09:16)
[2016-11-09] MEDS: FAMOTIDINE 40 MG/5 ML LIQ 50 ML BTL NG SCH ×2 (09:16→21:27)
[2016-11-09 09:25] LABS: APTT (PATIENT) 38.5 SEC (24.3-30.1); INTERNATIONAL NORMALIZED RATIO 2.2 RATIO; PROTHROMBIN TIME - PATIENT 24.8 SEC (9.8-11.6)
[2016-11-09 09:41] LABS: POTASSIUM 4.5 MEQ/L (3.5-5.1)
[2016-11-09] MEDS: POTASSIUM CHLORIDE 20 MEQ PWD PACKET NG SCH ×2 (12:41→21:25)
[2016-11-09] MEDS ORDERED: MAGNESIUM HYDROXIDE SUSP 30 ML CUP PO PRN (13:00)
--- NOTE | 2016-11-09 13:01 | HHI.PR ---
Subjective Remarks Follow up for respiratory failure. Pt is non-verbal but communicates by lip reading, responding with appropriate head nods/shakes, and mouths words. Patient laying in bed, on trach tube in NAD Reports of last evening indicated pt with pain to left arm/hand. Pt said pain is an old issue; currently rate 0/10. She noted her left hand was "cold." Peg tube was recently removed and without pain/discomfort. She is eating (soft diet) and denied difficulty with swallowing/ingestion of food. Denies any nausea, vomiting, chest pain or abdominal pain. Pt's RN (Adrianne) reported pt continues without bowel movement since 11/05/16. No other issues noted or reported. Objective Vitals Vital Signs Date Time Temp Pulse Resp B/P Pulse Ox O2 Delivery O2 Flow Rate FiO2 11/09/16 11:40 98.3 100 22 128/79 96 11/09/16 08:30 96 Trach Collar 6.00 28 11/09/16 08:15 97.4 78 20 123/74 96 11/09/16 07:00 63 11/09/16 04:00 98.0 82 20 128/85 96 11/09/16 01:40 Trach Collar 6.00 28 11/09/16 00:00 98.4 85 20 116/73 94 11/08/16 20:00 98.2 95 20 132/60 92 11/08/16 13:35 101 115/65 I/O 11/08/16 11/08/16 11/08/16 11/09/16 11/09/16 11/09/16 07:00 15:00 23:00 07:00 15:00 23:00 Intake Total 360 ml 700 ml Output Total 750 ml 700 ml 625 ml 500 ml Balance -390 ml -700 ml 75 ml -500 ml Intake Oral 360 ml 700 ml Output Urine Total 750 ml 700 ml 625 ml 500 ml # Bowel Movements 0 0 Result Diagram: 11/09/16 0849 11/09/16 0849 Imaging Last Impressions Chest X-Ray 11/08/16 0600 Signed Impressions: Service Date/Time: Tuesday, November 08, 2016 06:20 - CONCLUSION: Underinflation with linear opacity at the right lung base. The appearance favors atelectasis over consolidation. Dejan Allison MD Central Venous Line 10/20/16 0000 Signed Impressions: Service Date/Time: Thursday, October 20, 2016 00:00 - CONCLUSION: Uncomplicated Permcath removal. Didier Zhang MD Catheter Placement X-Ray 09/29/16 1223 Signed Impressions: Service Date/Time: Thursday, September 29, 2016 12:31 - CONCLUSION: Vas-Cath to PermCath exchange as detailed above. Taco Haas Jr., MD Renal Ultrasound 09/17/16 0000 Signed Impressions: Service Date/Time: Saturday, September 17, 2016 13:31 - CONCLUSION: Negative renal sonogram. Taco Davidson MD Upper Extremity Ultrasound 09/14/16 0000 Signed Impressions: Service Date/Time: August 08:32 - CONCLUSION: There is thrombus within the left subclavian and internal jugular veins. Danyel Escalante MD Lower Extremity Ultrasound 09/13/16 0000 Signed Impressions: Service Date/Time: Tuesday, September 13, 2016 22:33 - CONCLUSION: Normal examination. Leonides Mason MD Liver Ultrasound 09/08/16 0000 Signed Impressions: Service Date/Time: Thursday, September 08, 2016 08:45 - CONCLUSION: 1. Cholelithiasis with distended gallbladder. However, there are no associated findings present to diagnose acute cholecystitis. If there is persistent clinical concern for acute cholecystitis could evaluate for cystic duct obstruction with hepatobiliary scintigraphy. 2. Hepatomegaly with very heterogeneous echotexture and steatosis. Dejan Allison MD Gall Bladder Ultrasound 08/29/16 0000 Signed Impressions: Service Date/Time: Monday, August 29, 2016 15:21 - CONCLUSION: 1. Hepatomegaly with heterogeneous echotexture throughout the liver. 2. There is a large echogenic area near the neck of the gallbladder suggestive of a stone, but despite its large size, demonstrates no acoustic shadowing in any of the views. Taco Davidson MD CT Angiography 08/15/16 0000 Signed Impressions: Service Date/Time: Monday, August 15, 2016 02:33 - CONCLUSION: 1. No evidence for pulmonary embolism. 2. Multifocal consolidation greatest in the right lower lobe and associated adenopathy. Terry Estrada MD Objective Remarks GENERAL: Pt laying a bed, t-tube in place, NAD. SKIN: Warm and dry. HEAD: Normocephalic. EYES: No scleral icterus. No injection or drainage. NECK: Supple, trachea midline T-tube in place. No lymphadenopathy. CARDIOVASCULAR: Regular rate and rhythm without murmurs, gallops, or rubs. RESPIRATORY: Breath sounds equal bilaterally,some rhonchi event in right lung. No accessory muscle use. GASTROINTESTINAL: Abdomen soft, non-tender, nondistended. MUSCULOSKELETAL: No cyanosis, or edema. PSYCHIATRIC: Pt Alert and oriented, no overt signs of depression and/or anxiety. Medications and IVs Current Medications Medications (Trade) Dose Ordered Sig/Josephine Route Start Time Stop Time Status Last Admin (Synthroid) 200 mcg DAILY@06 PO 08/15/16 06:00 11/09/16 05:51 (Pravachol) 20 mg HS PO 08/15/16 21:00 11/08/16 22:09 (NS Flush) 2 ml UNSCH PRN IVF 08/14/16 23:15 10/08/16 11:53 (NS Flush) 2 ml BID IV FLUSH 08/15/16 09:00 11/08/16 22:08 (Tylenol) 650 mg Q6H PRN PO 08/14/16 23:15 11/07/16 22:00 (Morphine Inj) 2 mg Q2H PRN IV 08/14/16 23:15 11/08/16 22:08 (Tears Naturale Opth Soln) 1 drop TID EACH EYE 08/15/16 09:00 11/09/16 12:41 (Zofran Inj) 4 mg Q6H PRN IV 08/14/16 23:15 Miscellaneous Information 1 Q361D XX 08/14/16 23:15 (Chlorhexidine 2% Cloth) Taper DAILY@04 TOP 08/15/16 04:00 08/11/17 03:59 10/31/16 04:00 (Chlorhexidine 2% Cloth) 3 pack UNSCH PRN TOP 08/14/16 23:15 (Beneprotein Powder) 2 pack TID G-TUBE 08/15/16 09:00 11/07/16 16:46 (D50w (Vial) Inj) 25 ml UNSCH PRN IV PUSH 08/16/16 09:15 (NS Flush) DAILY IVF 09/11/16 09:00 11/09/16 09:00 (NS Flush) UNSCH PRN IVF 09/10/16 19:15 11/01/16 09:26 (Colace Liq) 100 mg BID PO 09/13/16 21:30 11/09/16 09:16 (Mannitol Inj) 12.5 gm UNSCH PRN IV 09/20/16 10:30 10/05/16 09:40 (Albumin 25% Inj) 25 gm UNSCH PRN IV 09/20/16 10:30 10/10/16 10:10 (NS Flush) 5 ml UNSCH PRN IV FLUSH 09/20/16 10:30 09/21/16 13:24 (Heparin Inj) UNSCH PRN .XX 09/20/16 10:30 10/12/16 10:48 (Gentamicin (Dialysis) Inj) 20 mg UNSCH PRN IV 09/20/16 10:30 10/14/16 12:35 (Zofran Inj) 4 mg UNSCH PRN IV 09/20/16 10:30 (Tylenol) 650 mg UNSCH PRN PO 09/20/16 10:30 (Benadryl) 25 mg UNSCH PRN PO 09/20/16 10:30 11/01/16 05:05 (Nitrostat Sl) 0.4 mg UNSCH PRN SL 09/20/16 10:30 Gelatin 1 foam 1 foam UNSCH PRN TOP 09/20/16 10:30 (Coumadin Consult Pharmacy) 0 ml @ 0 mls/hr UNSCH OTHER 09/26/16 20:45 (Eucerin Cream) 1 applic BID TOPICAL 09/27/16 21:00 11/09/16 09:16 (SEROquel) 75 mg Q8HR PO 09/28/16 14:00 11/09/16 12:40 (NS Flush) UNSCH PRN IVF 09/29/16 12:45 (Heparin Inj) UNSCH PRN IV FLUSH 09/29/16 12:45 (Melatonin) 5 mg HS PO 10/07/16 21:00 11/08/16 22:08 (Ativan Inj) 1 mg Q6H PRN IV PUSH 10/15/16 11:45 (Lopressor) 50 mg Q8HR G-TUBE 10/21/16 14:00 11/09/16 12:41 (Nitroglycerin 2% Oint) 2 inch Q6HR PRN TOPICAL 10/21/16 13:15 (KCl Powder) 20 meq Q12HR NG 10/24/16 21:00 11/09/16 12:41 (Levsin Liq) 0.125 mg Q4H PRN PO 10/26/16 12:30 11/03/16 04:31 (Pepcid Liq) 20 mg BID NG 10/30/16 21:00 11/09/16 09:16 (Coumadin) 7.5 mg DAILY@16 PO 11/07/16 16:00 11/08/16 16:32 Urinary Catheter: Yes Assessment to: Continue Miller insert reason: Prolonged Immobilization Vascular Central Line Catheter: No A/P Assessment and Plan 56-year-old female admitted with respiratory failure and pneumonia, now with chronic tracheostomy and chronic respiratory failure. Acute toxic metabolic encephalopathy Critical care myopathy Agitated delirium -Resolved -Seroquel 75 mg every 8 hours for agitation -Melatonin 5mg po qHS for insomnia -Acetaminophen for fever/pain Acute on chronic hypercapnic and hypoxemic respiratory failure Pneumonia community-acquired, now with HCAP with carbapenem-resistant pseudomonas and ESBL Klebsiella VAP. 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 -Colistin nebs stop date 11/09 -ID following follow cultures -History of cultures: Blood cultures 08/28: NGTD C Diff negative 08/28. Lines changed 08/28. Sputum 08/30 - Pseudomonas Sputum 09/02 PSAE, resistant to carbapenem, intermediate to Levaquin. 09/07 - urine -Maribell Guilliermondii 09/07 - blood cultures 2 - no growth 09/09 - urine -strep viridans, Maribell parapsilosis 09/10 - blood cultures 2 -no growth 09/11 - broch washings -no growth to date 09/12 - urine -Maribell glabrata and parapsilosis 09/16 - blood cultures 2 - pending 09/16 - sputum -no growth 09/16 - urine -Maribell glabrata and parapsilosis 10/02 - blood cultures 2 - staph epi 10/02 - urine - ESBL positive Klebsiella 10/04 - blood cultures 2 -no growth 10/05 - blood cultures 2 -no growth 10/17 - blood cultures -no growth 10/17 - sputum -Klebsiella ESBL positive and Stenotrophomonas maltophilia 10/17 - urine -C glabrata 10/21/ 10/22 - urine - ESBL positive Klebsiella Left IJ/subclavian nonocclusive thrombus 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 Initiated care with pancho-colace 2 tabs BID and MOM 30 ml q 6 hrs GI prophylaxis -Protonix 40mg Q12 DVT prophylaxis -Coumadin Lines: Peripheral IV. - PEG 09/01/16 - Trach 09/15 - Right Permacath placed 09/29 Case discussed with pt, RN (Adrianne) and Dr. Walsh. Discharge Planning Case management following [id number] facility is likely needed Contacts: Loree Marinelli, daughter (HCP): [phone] Rony Marinelli, significant other: [phone] Alessandro Coyle Jr. Nov 09, 2016 13:01
[2016-11-09] MEDS: WARFARIN SOD 7.5 MG TAB PO SCH (15:29)
[2016-11-09] MEDS: DOCUSATE SODIUM 50 MG/SENNA 8.6 MG TAB PO SCH ×3 (15:29→22:42)
[2016-11-09] MEDS: MORPHINE SULFATE 4 MG/ML INJ IV PRN ×2 (16:51→21:24)
--- NOTE | 2016-11-09 18:09 | HHI.PR ---
Subjective Remarks Remain s on a T Bar 28 %. Sats 98. Trach changed. Able to talk with PM valve Objective Vital Signs Date Time Temp Pulse Resp B/P Pulse Ox O2 Delivery O2 Flow Rate FiO2 11/09/16 16:56 18 11/09/16 16:32 96.9 89 22 122/76 96 11/09/16 16:26 96 Trach Collar 6.00 28 11/09/16 11:40 98.3 100 22 128/79 96 11/09/16 08:30 96 Trach Collar 6.00 28 11/09/16 08:15 97.4 78 20 123/74 96 11/09/16 07:00 63 11/09/16 04:00 98.0 82 20 128/85 96 11/09/16 01:40 Trach Collar 6.00 28 11/09/16 00:00 98.4 85 20 116/73 94 11/08/16 20:00 98.2 95 20 132/60 92 I/O 11/08/16 11/08/16 11/08/16 11/09/16 11/09/16 11/09/16 07:00 15:00 23:00 07:00 15:00 23:00 Intake Total 360 ml 700 ml 240 ml Output Total 750 ml 700 ml 625 ml 500 ml 700 ml 500 ml Balance -390 ml -700 ml 75 ml -500 ml -460 ml -500 ml Intake Oral 360 ml 700 ml 240 ml Output Urine Total 750 ml 700 ml 625 ml 500 ml 700 ml 500 ml # Bowel Movements 0 0 1 1 Result Diagram: 11/09/16 0849 11/09/16 0849 Objective Remarks This is an obese middle-aged white female who is alert HEENT: Head normocephalic.throat clear.Trach site OK Neck: No bruits, no thyroid enlargement, no lymphadenopathy. Chest: Decreased breath sounds. Heart: Heart sounds were regular. S1-S2 no murmur, no S3. Abdomen: Soft, benign. No masses, or tenderness. Bowel sounds are active. Extremities:min edema . Neuro :Moves all limbs.no deficits. Alert and Oriented Assessment and Plan Assessment and Plan IMPRESSION 1. Acute hypercapnic respiratory failure.Resolving 2. Pulmonary edema. 3. Drug rash 4. Obstructive sleep apnea syndrome 5. Hypertension 6. Hypothyroidism. 7. MIKE Plan : 1. Cont on T Bar 28 % all the time 2. Trach toilet and suctioning. 3. Nebs qid , duoneb. 4. Rehab placement 5. Use PM valve to talk. 6. Cap trach next week if stable with PM valve 7. Tube feeds at 60 CC 8. CXR in am 9. Up in chair daily. Abimael Beck MD Nov 09, 2016 18:09
[2016-11-09] MEDS: PRAVASTATIN SOD 20 MG TAB PO SCH ×2 (21:26→22:42)
[2016-11-09] MEDS: MELATONIN 5 MG TAB PO SCH ×2 (21:26→22:42)
[2016-11-10] VITALS (9 sets, daily range): BP systolic 101–149; BP diastolic 48–107; PULSE 18–107; RESP 18–20; TEMP 96.8–98.9; O2SAT 90–100
[2016-11-10] MEDS: RESP: COLISTIN 150 MG VIAL NEB SCH ×3 (02:09→16:00)
[2016-11-10] MEDS: CHLORHEXIDINE GLUCONATE 2 % 1 PACK (2 CLOTHS) TOP SCH (04:00)
[2016-11-10] MEDS: METOPROLOL TARTRATE 25 MG TAB G-TUBE SCH ×5 (06:00→21:06)
[2016-11-10] MEDS: LEVOTHYROXINE SODIUM 200 MCG TAB PO SCH (06:26)
[2016-11-10] MEDS: QUEtiapine FUMARATE 25 MG TAB PO SCH ×3 (06:35→20:39)
[2016-11-10] MEDS: BENEPROTEIN POWDER 1 PACK G-TUBE SCH ×3 (09:23→15:37)
[2016-11-10] MEDS: POTASSIUM CHLORIDE 20 MEQ PWD PACKET NG SCH ×2 (09:25→20:51)
[2016-11-10] MEDS: DOCUSATE SODIUM 50 MG/SENNA 8.6 MG TAB PO SCH ×2 (09:26→20:40)
[2016-11-10] MEDS: FAMOTIDINE 40 MG/5 ML LIQ 50 ML BTL NG SCH ×2 (09:27→20:39)
[2016-11-10] MEDS: ARTIFICIAL TEARS OPTH SOLN 15 ML BTL EACH EYE SCH ×3 (09:29→15:37)
[2016-11-10] MEDS: EUCERIN CREAM 120 GM JAR TOPICAL SCH ×2 (09:29→20:42)
[2016-11-10] MEDS: SODIUM CHLORIDE 0.9% FLUSH 10 ML FLUSH IV FLUSH SCH ×2 (09:31→20:51)
[2016-11-10] MEDS: SODIUM CHLORIDE 0.9% FLUSH 10 ML FLUSH IVF SCH (09:31)
[2016-11-10 11:15] LABS: HEMATOCRIT 28.4 % (35.0-46.0); MEAN CELL VOLUME 83.7 FL (80.0-100.0); MEAN CORPUSCULAR HEMOGLOBIN 27.6 PG (27.0-34.0); PLATELET COUNT 305 TH/MM3 (150-450); RED CELL DISTRIBUTION WIDTH 18.6 % (11.6-17.2); REVIEW FLAG FINAL; WHITE BLOOD COUNT 8.3 TH/MM3 (4.0-11.0)
[2016-11-10 11:23] LABS: INTERNATIONAL NORMALIZED RATIO 2.3 RATIO
[2016-11-10 11:24] LABS: APTT (PATIENT) 39.7 SEC (24.3-30.1)
--- NOTE | 2016-11-10 13:35 | HHI.PR ---
Subjective Remarks Follow up for respiratory failure. Pt is non-verbal but communicates by lip reading, responding with appropriate head nods/shakes, and mouths words. Patient laying in bed, on trach tube in NAD She noted her left hand was "cold" and without pain. Notes of yesterday indicated pt was speaking yesterday after a PM valve was used. Pt confirmed this. Denies any nausea, vomiting, chest pain or abdominal pain. Pt's RN (Yobani) reported no new issues over night or since shift change. VSS Objective Vitals Vital Signs Date Time Temp Pulse Resp B/P Pulse Ox O2 Delivery O2 Flow Rate FiO2 11/10/16 11:52 98.9 97 18 139/80 95 11/10/16 11:41 68 11/10/16 09:35 98 Trach Collar 6.00 11/10/16 09:31 98 Trach Collar 28 11/10/16 08:10 97.5 107 18 110/49 11/10/16 04:00 98.1 102 20 114/49 95 11/10/16 02:10 100 T-piece 6.00 28 11/10/16 00:00 98.5 97 20 112/63 94 11/09/16 20:00 99.3 106 22 124/72 95 11/09/16 16:56 18 11/09/16 16:32 96.9 89 22 122/76 96 11/09/16 16:26 96 Trach Collar 6.00 28 I/O 11/09/16 11/09/16 11/09/16 11/10/16 11/10/16 11/10/16 07:00 15:00 23:00 07:00 15:00 23:00 Intake Total 240 ml 480 ml Output Total 500 ml 700 ml 1700 ml 300 ml Balance -500 ml -460 ml -1220 ml -300 ml Intake Oral 240 ml 480 ml Output Urine Total 500 ml 700 ml 1700 ml 300 ml # Bowel Movements 0 1 1 1 Result Diagram: 11/10/16 1043 11/09/16 0849 Imaging Last Impressions Chest X-Ray 11/08/16 0600 Signed Impressions: Service Date/Time: Tuesday, November 08, 2016 06:20 - CONCLUSION: Underinflation with linear opacity at the right lung base. The appearance favors atelectasis over consolidation. Dejan Allison MD Central Venous Line 10/20/16 0000 Signed Impressions: Service Date/Time: Thursday, October 20, 2016 00:00 - CONCLUSION: Uncomplicated Permcath removal. Didier Zhang MD Catheter Placement X-Ray 09/29/16 1223 Signed Impressions: Service Date/Time: Thursday, September 29, 2016 12:31 - CONCLUSION: Vas-Cath to PermCath exchange as detailed above. Taco Haas Jr., MD Renal Ultrasound 09/17/16 0000 Signed Impressions: Service Date/Time: Saturday, September 17, 2016 13:31 - CONCLUSION: Negative renal sonogram. Taco Davidson MD Upper Extremity Ultrasound 09/14/16 0000 Signed Impressions: Service Date/Time: August 08:32 - CONCLUSION: There is thrombus within the left subclavian and internal jugular veins. Danyel Escalante MD Lower Extremity Ultrasound 09/13/16 0000 Signed Impressions: Service Date/Time: Tuesday, September 13, 2016 22:33 - CONCLUSION: Normal examination. Leonides Mason MD Liver Ultrasound 09/08/16 0000 Signed Impressions: Service Date/Time: Thursday, September 08, 2016 08:45 - CONCLUSION: 1. Cholelithiasis with distended gallbladder. However, there are no associated findings present to diagnose acute cholecystitis. If there is persistent clinical concern for acute cholecystitis could evaluate for cystic duct obstruction with hepatobiliary scintigraphy. 2. Hepatomegaly with very heterogeneous echotexture and steatosis. Dejan Allison MD Gall Bladder Ultrasound 08/29/16 0000 Signed Impressions: Service Date/Time: Monday, August 29, 2016 15:21 - CONCLUSION: 1. Hepatomegaly with heterogeneous echotexture throughout the liver. 2. There is a large echogenic area near the neck of the gallbladder suggestive of a stone, but despite its large size, demonstrates no acoustic shadowing in any of the views. Taco Davidson MD CT Angiography 08/15/16 0000 Signed Impressions: Service Date/Time: Monday, August 15, 2016 02:33 - CONCLUSION: 1. No evidence for pulmonary embolism. 2. Multifocal consolidation greatest in the right lower lobe and associated adenopathy. Terry Estrada MD Objective Remarks GENERAL: Pt laying a bed, t-tube in place, NAD. SKIN: Warm and dry. HEAD: Normocephalic. EYES: No scleral icterus. No injection or drainage. NECK: Supple, trachea midline T-tube in place. No lymphadenopathy. CARDIOVASCULAR: Regular rate and rhythm without murmurs, gallops, or rubs. RESPIRATORY: Breath sounds equal bilaterally,some rhonchi event in right lung. No accessory muscle use. GASTROINTESTINAL: Abdomen soft, non-tender, nondistended. MUSCULOSKELETAL: No cyanosis, or edema. PSYCHIATRIC: Pt Alert and oriented, no overt signs of depression and/or anxiety. Medications and IVs Current Medications Medications (Trade) Dose Ordered Sig/Josephine Route Start Time Stop Time Status Last Admin (Synthroid) 200 mcg DAILY@06 PO 08/15/16 06:00 11/10/16 06:26 (Pravachol) 20 mg HS PO 08/15/16 21:00 11/09/16 22:42 (NS Flush) 2 ml UNSCH PRN IVF 08/14/16 23:15 10/08/16 11:53 (NS Flush) 2 ml BID IV FLUSH 08/15/16 09:00 11/10/16 09:31 (Tylenol) 650 mg Q6H PRN PO 08/14/16 23:15 11/07/16 22:00 (Morphine Inj) 2 mg Q2H PRN IV 08/14/16 23:15 11/09/16 21:24 (Tears Naturale Opth Soln) 1 drop TID EACH EYE 08/15/16 09:00 11/10/16 13:00 (Zofran Inj) 4 mg Q6H PRN IV 08/14/16 23:15 Miscellaneous Information 1 Q361D XX 08/14/16 23:15 (Chlorhexidine 2% Cloth) Taper DAILY@04 TOP 08/15/16 04:00 08/11/17 03:59 10/31/16 04:00 (Chlorhexidine 2% Cloth) 3 pack UNSCH PRN TOP 08/14/16 23:15 (Beneprotein Powder) 2 pack TID G-TUBE 08/15/16 09:00 11/07/16 16:46 (D50w (Vial) Inj) 25 ml UNSCH PRN IV PUSH 08/16/16 09:15 (NS Flush) DAILY IVF 09/11/16 09:00 11/10/16 09:31 (NS Flush) UNSCH PRN IVF 09/10/16 19:15 11/01/16 09:26 (Mannitol Inj) 12.5 gm UNSCH PRN IV 09/20/16 10:30 10/05/16 09:40 (Albumin 25% Inj) 25 gm UNSCH PRN IV 09/20/16 10:30 10/10/16 10:10 (NS Flush) 5 ml UNSCH PRN IV FLUSH 09/20/16 10:30 09/21/16 13:24 (Heparin Inj) UNSCH PRN .XX 09/20/16 10:30 10/12/16 10:48 (Gentamicin (Dialysis) Inj) 20 mg UNSCH PRN IV 09/20/16 10:30 10/14/16 12:35 (Zofran Inj) 4 mg UNSCH PRN IV 09/20/16 10:30 (Tylenol) 650 mg UNSCH PRN PO 09/20/16 10:30 (Benadryl) 25 mg UNSCH PRN PO 09/20/16 10:30 11/01/16 05:05 (Nitrostat Sl) 0.4 mg UNSCH PRN SL 09/20/16 10:30 Gelatin 1 foam 1 foam UNSCH PRN TOP 09/20/16 10:30 (Coumadin Consult Pharmacy) 0 ml @ 0 mls/hr UNSCH OTHER 09/26/16 20:45 (Eucerin Cream) 1 applic BID TOPICAL 09/27/16 21:00 11/10/16 09:29 (SEROquel) 75 mg Q8HR PO 09/28/16 14:00 11/10/16 13:01 (NS Flush) UNSCH PRN IVF 09/29/16 12:45 (Heparin Inj) UNSCH PRN IV FLUSH 09/29/16 12:45 (Melatonin) 5 mg HS PO 10/07/16 21:00 11/09/16 22:42 (Ativan Inj) 1 mg Q6H PRN IV PUSH 10/15/16 11:45 (Lopressor) 50 mg Q8HR G-TUBE 10/21/16 14:00 11/10/16 13:01 (Nitroglycerin 2% Oint) 2 inch Q6HR PRN TOPICAL 10/21/16 13:15 (KCl Powder) 20 meq Q12HR NG 10/24/16 21:00 11/09/16 21:25 (Levsin Liq) 0.125 mg Q4H PRN PO 10/26/16 12:30 11/03/16 04:31 (Pepcid Liq) 20 mg BID NG 10/30/16 21:00 11/10/16 09:27 (Coumadin) 7.5 mg DAILY@16 PO 11/07/16 16:00 11/09/16 15:29 (Sharlene-Colace) 2 tab BID PO 11/09/16 13:00 11/10/16 09:26 (Milk Of Magnesia Liq) 30 ml Q6H PRN PO 11/09/16 13:00 Urinary Catheter: Yes Assessment to: Continue Miller insert reason: Prolonged Immobilization A/P Assessment and Plan 56-year-old female admitted with respiratory failure and pneumonia, now with chronic tracheostomy and chronic respiratory failure. Acute toxic metabolic encephalopathy Critical care myopathy Agitated delirium -Resolved -Seroquel 75 mg every 8 hours for agitation -Melatonin 5mg po qHS for insomnia -Acetaminophen for fever/pain Acute on chronic hypercapnic and hypoxemic respiratory failure Pneumonia community-acquired, now with HCAP with carbapenem-resistant pseudomonas and ESBL Klebsiella VAP. 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 -Colistin nebs stop date 11/09 -ID following follow cultures -History of cultures: Blood cultures 08/28: NGTD C Diff negative 08/28. Lines changed 08/28. Sputum 08/30 - Pseudomonas Sputum 09/02 PSAE, resistant to carbapenem, intermediate to Levaquin. 09/07 - urine -Maribell Guilliermondii 09/07 - blood cultures 2 - no growth 09/09 - urine -strep viridans, Maribell parapsilosis 09/10 - blood cultures 2 -no growth 09/11 - broch washings -no growth to date 09/12 - urine -Maribell glabrata and parapsilosis 09/16 - blood cultures 2 - pending 09/16 - sputum -no growth 09/16 - urine -Maribell glabrata and parapsilosis 10/02 - blood cultures 2 - staph epi 10/02 - urine - ESBL positive Klebsiella 10/04 - blood cultures 2 -no growth 10/05 - blood cultures 2 -no growth 10/17 - blood cultures -no growth 10/17 - sputum -Klebsiella ESBL positive and Stenotrophomonas maltophilia 10/17 - urine -C glabrata 10/21/ 10/22 - urine - ESBL positive Klebsiella Left IJ/subclavian nonocclusive thrombus 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 Initiated care with sharlene-colace 2 tabs BID and MOM 30 ml q 6 hrs -Pt with two bowel movements within past 24 hours. GI prophylaxis -Protonix 40mg Q12 DVT prophylaxis -Coumadin Lines: Peripheral IV. - PEG 09/01/16 - Trach 09/15 - Right Permacath placed 09/29 Case discussed with pt, RN (Yobani) and Dr. Walsh. Discharge Planning Case management following [id number] facility is likely needed Contacts: Loree Marinelli, daughter (HCP): [phone] Rony Isis, significant other: [phone] Alessandro Coyle Jr. Nov 10, 2016 13:35
[2016-11-10] MEDS: MORPHINE SULFATE 4 MG/ML INJ IV PRN ×2 (14:07→20:41)
[2016-11-10] MEDS: WARFARIN SOD 7.5 MG TAB PO SCH (15:36)
--- NOTE | 2016-11-10 18:46 | HHI.PR ---
Subjective Remarks Stable on a T Bar 28 %. Sats 98. No fever. Was up in a chair. Able to talk with PM valve Objective Vital Signs Date Time Temp Pulse Resp B/P Pulse Ox O2 Delivery O2 Flow Rate FiO2 11/10/16 16:18 96.8 18 20 149/107 95 11/10/16 11:52 98.9 97 18 139/80 95 11/10/16 11:41 68 11/10/16 09:35 98 Trach Collar 6.00 11/10/16 09:31 98 Trach Collar 28 11/10/16 08:10 97.5 107 18 110/49 11/10/16 04:00 98.1 102 20 114/49 95 11/10/16 02:10 100 T-piece 6.00 28 11/10/16 00:00 98.5 97 20 112/63 94 11/09/16 20:00 99.3 106 22 124/72 95 I/O 11/09/16 11/09/16 11/09/16 11/10/16 11/10/16 11/10/16 07:00 15:00 23:00 07:00 15:00 23:00 Intake Total 240 ml 480 ml 660 ml Output Total 500 ml 700 ml 1700 ml 300 ml 1250 ml Balance -500 ml -460 ml -1220 ml -300 ml -590 ml Intake Oral 240 ml 480 ml 660 ml Output Urine Total 500 ml 700 ml 1700 ml 300 ml 1250 ml # Bowel Movements 0 1 1 1 2 Result Diagram: 11/10/16 1043 11/09/16 0849 Objective Remarks This is an obese middle-aged white female who is alert HEENT: Head normocephalic.throat clear.Trach site OK Neck: No bruits, no thyroid enlargement, no lymphadenopathy. Chest: Decreased breath sounds. Heart: Heart sounds were regular. S1-S2 no murmur, no S3. Abdomen: Soft, benign. No masses, or tenderness. Bowel sounds are active. Extremities:min edema . Neuro :Moves all limbs.no deficits. Alert and Oriented Assessment and Plan Assessment and Plan IMPRESSION 1. Acute hypercapnic respiratory failure.Resolving 2. Pulmonary edema. 3. Drug rash 4. Obstructive sleep apnea syndrome 5. Hypertension 6. Hypothyroidism. 7. MIKE Plan : 1. Cont on T Bar 28 % all the time 2. Trach toilet and suctioning. 3. Nebs qijami , arlin. 4. Rehab placement 5. Use PM valve to talk. 6. Cap trach next week if stable with PM valve 7. Tube feeds at 60 CC 8. CBC,BMP 9. Up in chair daily. Abimael Beck MD Nov 10, 2016 18:46
[2016-11-10] MEDS: PRAVASTATIN SOD 20 MG TAB PO SCH (20:42)
[2016-11-10] MEDS: MELATONIN 5 MG TAB PO SCH (20:50)
[2016-11-11] VITALS (9 sets, daily range): BP systolic 107–134; BP diastolic 60–89; PULSE 87–102; RESP 18–22; TEMP 97–98.8; O2SAT 94–99
[2016-11-11] MEDS: RESP: COLISTIN 150 MG VIAL NEB SCH ×4 (01:02→23:48)
[2016-11-11] MEDS: CHLORHEXIDINE GLUCONATE 2 % 1 PACK (2 CLOTHS) TOP SCH (04:00)
[2016-11-11] MEDS: LEVOTHYROXINE SODIUM 200 MCG TAB PO SCH (05:57)
[2016-11-11] MEDS: METOPROLOL TARTRATE 25 MG TAB G-TUBE SCH ×3 (05:57→22:00)
[2016-11-11] MEDS: QUEtiapine FUMARATE 25 MG TAB PO SCH ×3 (05:57→22:20)
[2016-11-11] MEDS: ARTIFICIAL TEARS OPTH SOLN 15 ML BTL EACH EYE SCH ×2 (09:00→13:00)
[2016-11-11] MEDS: EUCERIN CREAM 120 GM JAR TOPICAL SCH ×2 (09:00→21:00)
[2016-11-11] MEDS: BENEPROTEIN POWDER 1 PACK G-TUBE SCH ×3 (09:00→18:00)
[2016-11-11] MEDS: POTASSIUM CHLORIDE 20 MEQ PWD PACKET NG SCH ×2 (09:00→21:00)
[2016-11-11] MEDS: SODIUM CHLORIDE 0.9% FLUSH 10 ML FLUSH IV FLUSH SCH ×2 (09:00→21:00)
[2016-11-11] MEDS: SODIUM CHLORIDE 0.9% FLUSH 10 ML FLUSH IVF SCH (09:00)
[2016-11-11] MEDS: DOCUSATE SODIUM 50 MG/SENNA 8.6 MG TAB PO SCH ×2 (09:25→21:00)
[2016-11-11] MEDS: FAMOTIDINE 40 MG/5 ML LIQ 50 ML BTL NG SCH ×2 (09:27→21:00)
[2016-11-11 10:49] LABS: MEAN CELL VOLUME 84.6 FL (80.0-100.0); MEAN CORPUSCULAR HEMOGLOBIN 27.9 PG (27.0-34.0); PLATELET COUNT 325 TH/MM3 (150-450); RED BLOOD COUNT 3.55 MIL/MM3 (4.00-5.30); RED CELL DISTRIBUTION WIDTH 18.9 % (11.6-17.2); REVIEW FLAG FINAL; WHITE BLOOD COUNT 9.8 TH/MM3 (4.0-11.0)
[2016-11-11 10:54] LABS: APTT (PATIENT) 40.1 SEC (24.3-30.1); INTERNATIONAL NORMALIZED RATIO 2.4 RATIO; PROTHROMBIN TIME - PATIENT 27.1 SEC (9.8-11.6)
--- NOTE | 2016-11-11 13:00 | HHI.PR ---
Subjective Remarks Follow up for respiratory failure. Pt is non-verbal but communicates by lip reading, responding with appropriate head nods/shakes, and mouths words. Patient laying in bed, on trach tube in NAD She noted her left hand was "cold" and with pain. Pt also reported having discomfort where Miller catheter was inserted, indicated it had been moved this morning and the discomfort has been present since that event. Pt wrote "will I be able to talk" once her T- Tube is removed. Denies any nausea, vomiting, chest pain or abdominal pain. Pt's RN (Italia) recounted the Miller associated pain and reported no new issues over night or since shift change. VSS Objective Vitals Vital Signs Date Time Temp Pulse Resp B/P Pulse Ox O2 Delivery O2 Flow Rate FiO2 11/11/16 12:13 97.6 88 22 134/77 96 11/11/16 08:17 97 Trach Collar 35 11/11/16 08:15 97.0 94 20 111/72 96 11/11/16 04:00 98.8 101 20 132/82 97 11/11/16 01:40 Trach Collar 6.00 11/11/16 01:04 99 Trach Collar 35 11/11/16 00:00 97.8 87 20 107/89 97 11/10/16 21:34 Trach Collar 35 11/10/16 20:00 97.9 102 18 101/48 90 11/10/16 16:18 96.8 18 20 149/107 95 I/O 11/10/16 11/10/16 11/10/16 11/11/16 11/11/16 11/11/16 07:00 15:00 23:00 07:00 15:00 23:00 Intake Total 660 ml Output Total 300 ml 1250 ml 1000 ml Balance -300 ml -590 ml -1000 ml Intake Oral 660 ml Output Urine Total 300 ml 1250 ml 1000 ml # Bowel Movements 1 2 Result Diagram: 11/11/16 1030 11/09/16 0849 Imaging Last Impressions Chest X-Ray 11/08/16 0600 Signed Impressions: Service Date/Time: Tuesday, November 08, 2016 06:20 - CONCLUSION: Underinflation with linear opacity at the right lung base. The appearance favors atelectasis over consolidation. Dejan Allison MD Central Venous Line 10/20/16 0000 Signed Impressions: Service Date/Time: Thursday, October 20, 2016 00:00 - CONCLUSION: Uncomplicated Permcath removal. Didier Zhang MD Catheter Placement X-Ray 09/29/16 1223 Signed Impressions: Service Date/Time: Thursday, September 29, 2016 12:31 - CONCLUSION: Vas-Cath to PermCath exchange as detailed above. Taco Haas Jr., MD Renal Ultrasound 09/17/16 0000 Signed Impressions: Service Date/Time: Saturday, September 17, 2016 13:31 - CONCLUSION: Negative renal sonogram. Taco Davidson MD Upper Extremity Ultrasound 09/14/16 0000 Signed Impressions: Service Date/Time: August 08:32 - CONCLUSION: There is thrombus within the left subclavian and internal jugular veins. Danyel Escalante MD Lower Extremity Ultrasound 09/13/16 0000 Signed Impressions: Service Date/Time: Tuesday, September 13, 2016 22:33 - CONCLUSION: Normal examination. Leonides Mason MD Liver Ultrasound 09/08/16 0000 Signed Impressions: Service Date/Time: Thursday, September 08, 2016 08:45 - CONCLUSION: 1. Cholelithiasis with distended gallbladder. However, there are no associated findings present to diagnose acute cholecystitis. If there is persistent clinical concern for acute cholecystitis could evaluate for cystic duct obstruction with hepatobiliary scintigraphy. 2. Hepatomegaly with very heterogeneous echotexture and steatosis. Dejan Allison MD Gall Bladder Ultrasound 08/29/16 0000 Signed Impressions: Service Date/Time: Monday, August 29, 2016 15:21 - CONCLUSION: 1. Hepatomegaly with heterogeneous echotexture throughout the liver. 2. There is a large echogenic area near the neck of the gallbladder suggestive of a stone, but despite its large size, demonstrates no acoustic shadowing in any of the views. Taco Davidson MD CT Angiography 08/15/16 0000 Signed Impressions: Service Date/Time: Monday, August 15, 2016 02:33 - CONCLUSION: 1. No evidence for pulmonary embolism. 2. Multifocal consolidation greatest in the right lower lobe and associated adenopathy. Terry Estrada MD Objective Remarks GENERAL: Pt laying a bed, t-tube in place, NAD. SKIN: Warm and dry. Left hand covered with sock; neither unusually warm nor cold to the touch HEAD: Normocephalic. EYES: No scleral icterus. No injection or drainage. NECK: Supple, trachea midline T-tube in place. No lymphadenopathy. CARDIOVASCULAR: Regular rate and rhythm without murmurs, gallops, or rubs. RESPIRATORY: Breath sounds equal bilaterally,some rhonchi event in right lung. No accessory muscle use. GASTROINTESTINAL: Abdomen soft, non-tender, nondistended. MUSCULOSKELETAL: No cyanosis, or edema. PSYCHIATRIC: Pt Alert and oriented, no overt signs of depression and/or anxiety. A/P Assessment and Plan 56-year-old female admitted with respiratory failure and pneumonia, now with chronic tracheostomy and chronic respiratory failure. Acute toxic metabolic encephalopathy Critical care myopathy Agitated delirium -Resolved -Seroquel 75 mg every 8 hours for agitation -Melatonin 5mg po qHS for insomnia -Acetaminophen for fever/pain Acute on chronic hypercapnic and hypoxemic respiratory failure Pneumonia community-acquired, now with HCAP with carbapenem-resistant pseudomonas and ESBL Klebsiella VAP. 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 -Colistin nebs stop date 11/09 -ID following follow cultures -History of cultures: Blood cultures 08/28: NGTD C Diff negative 08/28. Lines changed 08/28. Sputum 08/30 - Pseudomonas Sputum 09/02 PSAE, resistant to carbapenem, intermediate to Levaquin. 09/07 - urine -Maribell Guilliermondii 09/07 - blood cultures 2 - no growth 09/09 - urine -strep viridans, Maribell parapsilosis 09/10 - blood cultures 2 -no growth 09/11 - broch washings -no growth to date 09/12 - urine -Maribell glabrata and parapsilosis 09/16 - blood cultures 2 - pending 09/16 - sputum -no growth 09/16 - urine -Maribell glabrata and parapsilosis 10/02 - blood cultures 2 - staph epi 10/02 - urine - ESBL positive Klebsiella 10/04 - blood cultures 2 -no growth 10/05 - blood cultures 2 -no growth 10/17 - blood cultures -no growth 10/17 - sputum -Klebsiella ESBL positive and Stenotrophomonas maltophilia 10/17 - urine -C glabrata 10/21/ 10/22 - urine - ESBL positive Klebsiella Left IJ/subclavian nonocclusive thrombus 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 Initiated care with pancho-colace 2 tabs BID and MOM 30 ml q 6 hrs -Pt with two bowel movements within past 24 hours. -Seemingly resolved as she has had 3 bowel movements in past 36 hours. GI prophylaxis -Protonix 40mg Q12 DVT prophylaxis -Coumadin Lines: Peripheral IV. - PEG 09/01/16 - Trach 09/15 - Right Permacath placed 09/29 Case discussed with pt, RN (Yobani) and Dr. Walsh. Discharge Planning Case management following [id number] facility is likely needed Contacts: Loree Marinelli, daughter (HCP): [phone] Rony Marinelli, significant other: [phone] Alessandro Coyle Jr. Nov 11, 2016 13:00
[2016-11-11] MEDS: MORPHINE SULFATE 4 MG/ML INJ IV PRN ×2 (15:32→19:46)
[2016-11-11] MEDS: WARFARIN SOD 7.5 MG TAB PO SCH (15:38)
[2016-11-11] MEDS: HYOSCYAMINE SOLN 0.125 MG/ML 15 ML BTL PO PRN (19:48)
[2016-11-11] MEDS: PRAVASTATIN SOD 20 MG TAB PO SCH (22:21)
[2016-11-11] MEDS: MELATONIN 5 MG TAB PO SCH (22:21)
[2016-11-12] VITALS (9 sets, daily range): BP systolic 111–132; BP diastolic 59–79; PULSE 87–98; RESP 18–24; TEMP 97.2–98.8; O2SAT 93–99
[2016-11-12] MEDS: CHLORHEXIDINE GLUCONATE 2 % 1 PACK (2 CLOTHS) TOP SCH (04:00)
[2016-11-12] MEDS: QUEtiapine FUMARATE 25 MG TAB PO SCH ×3 (06:24→22:15)
[2016-11-12] MEDS: METOPROLOL TARTRATE 25 MG TAB G-TUBE SCH ×3 (06:25→22:13)
[2016-11-12] MEDS: LEVOTHYROXINE SODIUM 200 MCG TAB PO SCH (06:25)
[2016-11-12] MEDS: RESP: COLISTIN 150 MG VIAL NEB SCH ×2 (07:51→16:13)
[2016-11-12] MEDS: DOCUSATE SODIUM 50 MG/SENNA 8.6 MG TAB PO SCH ×2 (08:38→22:15)
[2016-11-12] MEDS: FAMOTIDINE 40 MG/5 ML LIQ 50 ML BTL NG SCH ×2 (08:38→22:16)
[2016-11-12] MEDS: SODIUM CHLORIDE 0.9% FLUSH 10 ML FLUSH IV FLUSH SCH ×2 (08:42→22:13)
[2016-11-12 09:31] LABS: INTERNATIONAL NORMALIZED RATIO 2.6 RATIO; PROTHROMBIN TIME - PATIENT 30.1 SEC (9.8-11.6)
[2016-11-12 09:33] LABS: APTT (PATIENT) 43.1 SEC (24.3-30.1)
[2016-11-12 09:50] LABS: ANION GAP 10 MEQ/L (5-15); BICARBONATE 27.2 MEQ/L (21.0-32.0); BLOOD UREA NITROGEN 21 MG/DL (7-18); CHLORIDE 100 MEQ/L (98-107); GLOMERULAR FILTRATION RATE 84 ML/MIN (>89); POTASSIUM 4.2 MEQ/L (3.5-5.1); SODIUM (NA) 137 MEQ/L (136-145)
[2016-11-12 09:52] LABS: ALT (GPT) 44 U/L (10-53); AST (GOT) 26 U/L (15-37)
[2016-11-12 09:54] LABS: ALKALINE PHOSPHATASE 129 U/L (45-117); TOTAL BILIRUBIN ADULT 0.3 MG/DL (0.2-1.0)
--- NOTE | 2016-11-12 13:36 | HHI.PR ---
Subjective Remarks Stable on a T Bar 28 %. Sats 98. No fever. Was up and taking her diet . Objective Vital Signs Date Time Temp Pulse Resp B/P Pulse Ox O2 Delivery O2 Flow Rate FiO2 11/12/16 12:00 98.8 98 22 120/78 99 11/12/16 08:00 97.2 88 24 126/75 97 11/12/16 07:55 98 Trach Collar 35 11/12/16 04:36 98.0 87 18 132/62 95 11/12/16 00:26 98.0 96 18 111/67 95 11/11/16 20:42 97 Trach Collar 6.00 35 11/11/16 20:16 98.6 94 18 107/60 94 11/11/16 20:00 97 Trach Collar 6.00 35 11/11/16 16:05 98.3 102 20 113/78 95 I/O 11/11/16 11/11/16 11/11/16 11/12/16 11/12/16 11/12/16 07:00 15:00 23:00 07:00 15:00 23:00 Intake Total 600 ml 360 ml Output Total 1000 ml 1650 ml 950 ml Balance -1000 ml -1050 ml -590 ml Intake Oral 600 ml 360 ml Output Urine Total 1000 ml 1650 ml 950 ml # Bowel Movements 1 Result Diagram: 11/11/16 1030 11/12/16 0830 Objective Remarks This is an obese middle-aged white female who is alert HEENT: Head normocephalic.throat clear.Trach site clear Neck: No bruits, no thyroid enlargement, no lymphadenopathy. Chest: Decreased breath sounds.Occ crackles at bases Heart: Heart sounds were regular. S1-S2 no murmur, no S3. Abdomen: Soft, benign. No masses, or tenderness. Bowel sounds are active. Extremities:min edema . Neuro :Moves all limbs.no deficits. Alert and Oriented Assessment and Plan Assessment and Plan IMPRESSION 1. Acute hypercapnic respiratory failure.Resolving 2. Pulmonary edema. 3. Drug rash 4. Obstructive sleep apnea syndrome 5. Hypertension 6. Hypothyroidism. 7. MIKE Plan : 1. Cont on T Bar 35 % all the time 2. Trach toilet and suctioning. 3. Nebs qid , duoneb. 4. Rehab placement 5. Use PM valve to talk. 6. CPAP at HS if she desats <92 7. Tube feeds at 60 CC 8. CXR Sunday 9. Up in chair daily. Abimael Beck MD Nov 12, 2016 13:36
--- NOTE | 2016-11-12 13:59 | HHI.PR ---
Subjective Remarks Follow up for respiratory failure. Pt is non-verbal but communicates by lip reading, responding with appropriate head nods/shakes, and mouths words. Patient laying in bed, on trach tube in NAD She noted her left hand continues to have "cold" and pain. RN ([place]) reported having used warm blanket yesterday with little relief. Pain associated with Miller catheter reported b patient yesterday has resolved. Denies any nausea, vomiting,cough, shortness of breath, chest pain or abdominal pain. Pt's RN ([place]) recounted the Miller associated pain had resolved and reported no new issues over night or since shift change. VSS Objective Vitals Vital Signs Date Time Temp Pulse Resp B/P Pulse Ox O2 Delivery O2 Flow Rate FiO2 11/12/16 12:00 98.8 98 22 120/78 99 11/12/16 08:00 97.2 88 24 126/75 97 11/12/16 07:55 98 Trach Collar 35 11/12/16 04:36 98.0 87 18 132/62 95 11/12/16 00:26 98.0 96 18 111/67 95 11/11/16 20:42 97 Trach Collar 6.00 35 11/11/16 20:16 98.6 94 18 107/60 94 11/11/16 20:00 97 Trach Collar 6.00 35 11/11/16 16:05 98.3 102 20 113/78 95 I/O 11/11/16 11/11/16 11/11/16 11/12/16 11/12/16 11/12/16 07:00 15:00 23:00 07:00 15:00 23:00 Intake Total 600 ml 360 ml Output Total 1000 ml 1650 ml 950 ml Balance -1000 ml -1050 ml -590 ml Intake Oral 600 ml 360 ml Output Urine Total 1000 ml 1650 ml 950 ml # Bowel Movements 1 Result Diagram: 11/11/16 1030 11/12/16 0830 Imaging No new imaged ordered, pending or resulted within the past 24 hours. Objective Remarks GENERAL: Pt laying a bed, t-tube in place, NAD. SKIN: Warm and dry. Left hand covered with sock; neither unusually warm nor cold to the touch HEAD: Normocephalic. EYES: No scleral icterus. No injection or drainage. NECK: Supple, trachea midline T-tube in place. No lymphadenopathy. Some yellow colored mucus coming from T- Tube. CARDIOVASCULAR: Regular rate and rhythm without murmurs, gallops, or rubs. RESPIRATORY: Breath sounds equal bilaterally,some rhonchi evident in right lung. No accessory muscle use. GASTROINTESTINAL: Abdomen soft, non-tender, nondistended. MUSCULOSKELETAL: No cyanosis, or edema. PSYCHIATRIC: Pt Alert and oriented, no overt signs of depression and/or anxiety. Procedures None in past 24 hours. Medications and IVs Current Medications Medications (Trade) Dose Ordered Sig/Josephine Route Start Time Stop Time Status Last Admin (Synthroid) 200 mcg DAILY@06 PO 08/15/16 06:00 11/12/16 06:25 (Pravachol) 20 mg HS PO 08/15/16 21:00 11/11/16 22:21 (NS Flush) 2 ml UNSCH PRN IVF 08/14/16 23:15 10/08/16 11:53 (NS Flush) 2 ml BID IV FLUSH 08/15/16 09:00 11/12/16 08:42 (Tylenol) 650 mg Q6H PRN PO 08/14/16 23:15 11/07/16 22:00 (Morphine Inj) 2 mg Q2H PRN IV 08/14/16 23:15 11/11/16 19:46 (Tears Naturale Opth Soln) 1 drop TID EACH EYE 08/15/16 09:00 11/11/16 13:00 (Zofran Inj) 4 mg Q6H PRN IV 08/14/16 23:15 Miscellaneous Information 1 Q361D XX 08/14/16 23:15 (Chlorhexidine 2% Cloth) Taper DAILY@04 TOP 08/15/16 04:00 08/11/17 03:59 10/31/16 04:00 (Chlorhexidine 2% Cloth) 3 pack UNSCH PRN TOP 08/14/16 23:15 (Beneprotein Powder) 2 pack TID G-TUBE 08/15/16 09:00 11/11/16 09:00 (D50w (Vial) Inj) 25 ml UNSCH PRN IV PUSH 08/16/16 09:15 (NS Flush) DAILY IVF 09/11/16 09:00 11/10/16 09:31 (NS Flush) UNSCH PRN IVF 09/10/16 19:15 11/01/16 09:26 (Mannitol Inj) 12.5 gm UNSCH PRN IV 09/20/16 10:30 10/05/16 09:40 (Albumin 25% Inj) 25 gm UNSCH PRN IV 09/20/16 10:30 10/10/16 10:10 (NS Flush) 5 ml UNSCH PRN IV FLUSH 09/20/16 10:30 09/21/16 13:24 (Heparin Inj) UNSCH PRN .XX 09/20/16 10:30 10/12/16 10:48 (Gentamicin (Dialysis) Inj) 20 mg UNSCH PRN IV 09/20/16 10:30 10/14/16 12:35 (Zofran Inj) 4 mg UNSCH PRN IV 09/20/16 10:30 (Tylenol) 650 mg UNSCH PRN PO 09/20/16 10:30 (Benadryl) 25 mg UNSCH PRN PO 09/20/16 10:30 11/01/16 05:05 (Nitrostat Sl) 0.4 mg UNSCH PRN SL 09/20/16 10:30 Gelatin 1 foam 1 foam UNSCH PRN TOP 09/20/16 10:30 (Coumadin Consult Pharmacy) 0 ml @ 0 mls/hr UNSCH OTHER 09/26/16 20:45 (Eucerin Cream) 1 applic BID TOPICAL 09/27/16 21:00 11/11/16 21:00 (SEROquel) 75 mg Q8HR PO 09/28/16 14:00 11/12/16 13:12 (NS Flush) UNSCH PRN IVF 09/29/16 12:45 (Heparin Inj) UNSCH PRN IV FLUSH 09/29/16 12:45 (Melatonin) 5 mg HS PO 10/07/16 21:00 11/11/16 22:21 (Ativan Inj) 1 mg Q6H PRN IV PUSH 10/15/16 11:45 11/11/16 22:23 (Lopressor) 50 mg Q8HR G-TUBE 10/21/16 14:00 11/12/16 13:11 (Nitroglycerin 2% Oint) 2 inch Q6HR PRN TOPICAL 10/21/16 13:15 (KCl Powder) 20 meq Q12HR NG 5/30/17 21:00 11/11/16 21:00 (Levsin Liq) 0.125 mg Q4H PRN PO 10/26/16 12:30 11/11/16 19:48 (Pepcid Liq) 20 mg BID NG 10/30/16 21:00 11/12/16 08:38 (Coumadin) 7.5 mg DAILY@16 PO 11/07/16 16:00 11/11/16 15:38 (Sharlene-Colace) 2 tab BID PO 11/09/16 13:00 11/12/16 08:38 (Milk Of Magnesia Liq) 30 ml Q6H PRN PO 11/09/16 13:00 Urinary Catheter: Yes Assessment to: Continue Miller insert reason: Prolonged Immobilization Vascular Central Line Catheter: No A/P Assessment and Plan 56-year-old female admitted with respiratory failure and pneumonia, now with chronic tracheostomy and chronic respiratory failure. Acute toxic metabolic encephalopathy Critical care myopathy Agitated delirium -Resolved -Seroquel 75 mg every 8 hours for agitation -Melatonin 5mg po qHS for insomnia -Acetaminophen for fever/pain Acute on chronic hypercapnic and hypoxemic respiratory failure Pneumonia community-acquired, now with HCAP with carbapenem-resistant pseudomonas and ESBL Klebsiella VAP. 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 -Colistin nebs stop date 11/09 -ID following follow cultures -History of cultures: Blood cultures 08/28: NGTD C Diff negative 08/28. Lines changed 08/28. Sputum 08/30 - Pseudomonas Sputum 09/02 PSAE, resistant to carbapenem, intermediate to Levaquin. 09/07 - urine -Maribell Guilliermondii 09/07 - blood cultures 2 - no growth 09/09 - urine -strep viridans, Maribell parapsilosis 09/10 - blood cultures 2 -no growth 09/11 - broch washings -no growth to date 09/12 - urine -Maribell glabrata and parapsilosis 09/16 - blood cultures 2 - pending 09/16 - sputum -no growth 09/16 - urine -Maribell glabrata and parapsilosis 10/02 - blood cultures 2 - staph epi 10/02 - urine - ESBL positive Klebsiella 10/04 - blood cultures 2 -no growth 10/05 - blood cultures 2 -no growth 10/17 - blood cultures -no growth 10/17 - sputum -Klebsiella ESBL positive and Stenotrophomonas maltophilia 10/17 - urine -C glabrata 10/21/ 10/22 - urine - ESBL positive Klebsiella Left IJ/subclavian nonocclusive thrombus 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 Initiated care with sharlene-colace 2 tabs BID and MOM 30 ml q 6 hrs -Pt with two bowel movements within past 24 hours. -Seemingly resolved as she has had 3 bowel movements in past 36 hours. GI prophylaxis -Protonix 40mg Q12 DVT prophylaxis -Coumadin Lines: Peripheral IV. - PEG 09/01/16 - Trach 09/15 - Right Permacath placed 09/29 Case discussed with pt, RN ([place]) and Dr. Walsh. Discharge Planning Case management following [id number] facility is likely needed Contacts: Loree Marinelli, daughter (HCP): [phone] Rony Matthewzalone, significant other: [phone] Alessandro Coyle Jr. Nov 12, 2016 13:59
[2016-11-12] MEDS: WARFARIN SOD 7.5 MG TAB PO SCH (16:32)
[2016-11-12] MEDS: MORPHINE SULFATE 4 MG/ML INJ IV PRN ×2 (16:33→22:08)
[2016-11-12] MEDS: HYOSCYAMINE SOLN 0.125 MG/ML 15 ML BTL PO PRN (17:40)
[2016-11-12] MEDS: PRAVASTATIN SOD 20 MG TAB PO SCH (22:15)
[2016-11-12] MEDS: MELATONIN 5 MG TAB PO SCH (22:15)
[2016-11-12] MEDS: POTASSIUM CHLORIDE 20 MEQ PWD PACKET NG SCH (22:16)
[2016-11-12] MEDS: EUCERIN CREAM 120 GM JAR TOPICAL SCH (22:17)
[2016-11-12] MEDS: ARTIFICIAL TEARS OPTH SOLN 15 ML BTL EACH EYE SCH (22:20)
[2016-11-13] VITALS (9 sets, daily range): BP systolic 93–131; BP diastolic 57–83; PULSE 75–103; RESP 18–21; TEMP 97.3–99.4; O2SAT 91–100
[2016-11-13] MEDS: RESP: COLISTIN 150 MG VIAL NEB SCH ×3 (00:39→15:42)
[2016-11-13] MEDS: CHLORHEXIDINE GLUCONATE 2 % 1 PACK (2 CLOTHS) TOP SCH (04:00)
[2016-11-13] MEDS: MORPHINE SULFATE 4 MG/ML INJ IV PRN ×3 (05:27→22:02)
[2016-11-13] MEDS: HYOSCYAMINE SOLN 0.125 MG/ML 15 ML BTL PO PRN (05:27)
[2016-11-13] MEDS: QUEtiapine FUMARATE 25 MG TAB PO SCH ×3 (05:28→22:02)
[2016-11-13] MEDS: LEVOTHYROXINE SODIUM 200 MCG TAB PO SCH (05:28)
[2016-11-13] MEDS: EUCERIN CREAM 120 GM JAR TOPICAL SCH ×3 (05:29→22:03)
[2016-11-13] MEDS: POTASSIUM CHLORIDE 20 MEQ PWD PACKET NG SCH ×3 (05:30→22:07)
[2016-11-13] MEDS: METOPROLOL TARTRATE 25 MG TAB G-TUBE SCH ×3 (05:32→22:00)
--- NOTE | 2016-11-13 08:06 | RADRPT ---
EXAM DATE/TIME: 11/13/2016 06:04 [facility] COMPARISON: CHEST SINGLE AP, November 08, 2016, 6:20. INDICATIONS : Respiratory distress. MEDICAL HISTORY : Congestive heart failure. SURGICAL HISTORY : None. ENCOUNTER: Initial ACUITY: 2 months PAIN SCORE: 5/10 LOCATION: Bilateral chest FINDINGS: Stable tracheostomy in place. Redemonstration of linear-appearing opacities in the right lung base. L ungs are otherwise clear. Cardiomediastinal contours are stable. Remainder of the exam is unchanged. CONCLUSION: 1. Stable right lower lobe linear airspace disease, likely atelectasis. 2. No interval change. Kel Stone MD on November 13, 2016 at 8:02 Board Certified Radiologist. This report was verified electronically.
[2016-11-13] MEDS: SODIUM CHLORIDE 0.9% FLUSH 10 ML FLUSH IV FLUSH SCH ×2 (08:31→22:00)
[2016-11-13] MEDS: ARTIFICIAL TEARS OPTH SOLN 15 ML BTL EACH EYE SCH ×4 (08:31→17:33)
[2016-11-13] MEDS: DOCUSATE SODIUM 50 MG/SENNA 8.6 MG TAB PO SCH ×2 (08:32→22:02)
[2016-11-13] MEDS: FAMOTIDINE 40 MG/5 ML LIQ 50 ML BTL NG SCH ×2 (08:33→22:00)
[2016-11-13] MEDS: SODIUM CHLORIDE 0.9% FLUSH 10 ML FLUSH IVF SCH (08:47)
[2016-11-13] MEDS: BENEPROTEIN POWDER 1 PACK G-TUBE SCH ×3 (08:48→17:33)
[2016-11-13 09:44] LABS: HEMATOCRIT 29.2 % (35.0-46.0); MEAN CELL VOLUME 83.8 FL (80.0-100.0); MEAN CORPUSCULAR HEMOGLOBIN 27.8 PG (27.0-34.0); MEAN CORPUSCULAR HGB CONC 33.2 % (32.0-36.0); PLATELET COUNT 300 TH/MM3 (150-450); RED BLOOD COUNT 3.49 MIL/MM3 (4.00-5.30); RED CELL DISTRIBUTION WIDTH 17.9 % (11.6-17.2); REVIEW FLAG FINAL; WHITE BLOOD COUNT 7.3 TH/MM3 (4.0-11.0)
[2016-11-13 09:52] LABS: APTT (PATIENT) 46.2 SEC (24.3-30.1); INTERNATIONAL NORMALIZED RATIO 2.8 RATIO; PROTHROMBIN TIME - PATIENT 32.4 SEC (9.8-11.6)
--- NOTE | 2016-11-13 16:25 | HHI.PR ---
Subjective Remarks Follow up for acute on chronic respiratory failure. Patient is doing well, s/p tracheostomy. No acute concerns. Denies any chest pain, shortness of breath, fever, chills. Objective Vitals Vital Signs Date Time Temp Pulse Resp B/P Pulse Ox O2 Delivery O2 Flow Rate FiO2 11/13/16 13:00 35 11/13/16 12:27 99.4 80 18 115/78 97 11/13/16 08:29 98.6 82 18 103/63 100 11/13/16 08:00 79 11/13/16 07:48 98 Trach Collar 35 11/13/16 07:16 88 129/71 11/13/16 07:15 Trach Collar 6.00 28 11/13/16 04:00 97.7 75 18 97/57 96 11/13/16 00:00 98.6 78 18 131/83 97 11/12/16 23:00 Trach Collar 6.00 35 11/12/16 22:15 95 Trach Collar 35 11/12/16 22:00 89 11/12/16 20:00 98 20 119/59 93 I/O 11/12/16 11/12/16 11/12/16 11/13/16 11/13/16 11/13/16 07:00 15:00 23:00 07:00 15:00 23:00 Intake Total 360 ml 720 ml 580 ml Output Total 950 ml 900 ml 650 ml 500 ml Balance -590 ml -180 ml -650 ml 80 ml Intake Oral 360 ml 720 ml 580 ml Output Urine Total 950 ml 900 ml 650 ml 500 ml # Bowel Movements 1 1 1 Result Diagram: 11/13/16 0849 11/12/16 0830 Imaging Last Impressions Chest X-Ray 11/13/16 0600 Signed Impressions: Service Date/Time: Sunday, November 13, 2016 06:04 - CONCLUSION: 1. Stable right lower lobe linear airspace disease, likely atelectasis. 2. No interval change. Kel Stone MD Central Venous Line 10/20/16 0000 Signed Impressions: Service Date/Time: Thursday, October 20, 2016 00:00 - CONCLUSION: Uncomplicated Permcath removal. Didier Zhang MD Catheter Placement X-Ray 09/29/16 1223 Signed Impressions: Service Date/Time: Thursday, September 29, 2016 12:31 - CONCLUSION: Vas-Cath to PermCath exchange as detailed above. Taco Haas Jr., MD Renal Ultrasound 09/17/16 0000 Signed Impressions: Service Date/Time: Saturday, September 17, 2016 13:31 - CONCLUSION: Negative renal sonogram. Taco Davidson MD Upper Extremity Ultrasound 09/14/16 0000 Signed Impressions: Service Date/Time: August 08:32 - CONCLUSION: There is thrombus within the left subclavian and internal jugular veins. Danyel Escalante MD Lower Extremity Ultrasound 09/13/16 0000 Signed Impressions: Service Date/Time: Tuesday, September 13, 2016 22:33 - CONCLUSION: Normal examination. Leonides Mason MD Liver Ultrasound 09/08/16 0000 Signed Impressions: Service Date/Time: Thursday, September 08, 2016 08:45 - CONCLUSION: 1. Cholelithiasis with distended gallbladder. However, there are no associated findings present to diagnose acute cholecystitis. If there is persistent clinical concern for acute cholecystitis could evaluate for cystic duct obstruction with hepatobiliary scintigraphy. 2. Hepatomegaly with very heterogeneous echotexture and steatosis. Dejan Allison MD Gall Bladder Ultrasound 08/29/16 0000 Signed Impressions: Service Date/Time: Monday, August 29, 2016 15:21 - CONCLUSION: 1. Hepatomegaly with heterogeneous echotexture throughout the liver. 2. There is a large echogenic area near the neck of the gallbladder suggestive of a stone, but despite its large size, demonstrates no acoustic shadowing in any of the views. Taco Davidson MD CT Angiography 08/15/16 0000 Signed Impressions: Service Date/Time: Monday, August 15, 2016 02:33 - CONCLUSION: 1. No evidence for pulmonary embolism. 2. Multifocal consolidation greatest in the right lower lobe and associated adenopathy. Terry Estrada MD Objective Remarks GENERAL: Alert, NAD. s/p trach. SKIN: Warm and dry. HEAD: Normocephalic. EYES: No scleral icterus. No injection or drainage. NECK: Supple, trachea midline. No JVD or lymphadenopathy. CARDIOVASCULAR: Regular rate and rhythm without murmurs, gallops, or rubs. RESPIRATORY: Moderate air entry, scattered rhonchi, merly right lung. GASTROINTESTINAL: Abdomen soft, non-tender, nondistended. MUSCULOSKELETAL: No cyanosis, or edema. BACK: Nontender without obvious deformity. No CVA tenderness. Procedures 09/15/2016 bronchoscopy 09/11/2016 bronchoscopy 09/10/2016 left IJ central venous line 08/28/2016 subclavian 7 [place] triple-lumen catheter left-sided. 08/18/2016 right arterial line 08/18/2016 right IJ central line A/P Assessment and Plan 56-year-old female admitted with respiratory failure and pneumonia, now with chronic tracheostomy and chronic respiratory failure. Acute toxic metabolic encephalopathy Critical care myopathy Agitated delirium -Resolved -Seroquel 75 mg every 8 hours for agitation -Melatonin 5mg po qHS for insomnia -Acetaminophen for fever/pain Acute on chronic hypercapnic and hypoxemic respiratory failure Pneumonia community-acquired, now with HCAP with carbapenem-resistant pseudomonas and ESBL Klebsiella VAP. Probable JOE -Tracheostomy present -Continue CPAP -Pulmonary toilet -Pulmonology following -Colistin neb until 11/14/2016. Hypertension Dyslipidemia -Continue metoprolol 50 mg every 8 hours. -Continue pravastatin Acute kidney injury - requiring hemodialysis -Follow I's and O's -Nephrology following -Dialysis presently on hold Elevated transaminases Cholelithiasis -Twice a day Pepcid -Follow transaminases -Follow clinically -No reports of abdominal pain today Pseudomonas pneumonia Funguria, Maribell glabrata and parapsilosis. -Colistin nebs stop date 11/14/2016 -History of cultures: Blood cultures 08/28: NGTD C Diff negative 08/28. Lines changed 08/28. Sputum 08/30 - Pseudomonas Sputum 09/02 PSAE, resistant to carbapenem, intermediate to Levaquin. 09/07 - urine -Maribell Guilliermondii 09/07 - blood cultures 2 - no growth 09/09 - urine -strep viridans, Maribell parapsilosis 09/10 - blood cultures 2 -no growth 09/11 - broch washings -no growth to date 09/12 - urine -Maribell glabrata and parapsilosis 09/16 - blood cultures 2 - pending 09/16 - sputum -no growth 09/16 - urine -Maribell glabrata and parapsilosis 10/02 - blood cultures 2 - staph epi 10/02 - urine - ESBL positive Klebsiella 10/04 - blood cultures 2 -no growth 10/05 - blood cultures 2 -no growth 10/17 - blood cultures -no growth 10/17 - sputum -Klebsiella ESBL positive and Stenotrophomonas maltophilia 10/17 - urine -C glabrata 10/21/ 10/22 - urine - ESBL positive Klebsiella Left IJ/subclavian nonocclusive thrombus 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 - PEG 09/01/16 - Trach 09/15 - Right Permacath placed 09/29 Full code. Warfarin. Mine Waldrop DO Nov 13, 2016 4:25 pm
[2016-11-13] MEDS: WARFARIN SOD 6 MG TAB PO SCH (17:07)
--- NOTE | 2016-11-13 19:26 | HHI.PR ---
Subjective Remarks Stable on a T Bar 28 %.Doing well . No fever. Was up in chair. talking. Objective Vital Signs Date Time Temp Pulse Resp B/P Pulse Ox O2 Delivery O2 Flow Rate FiO2 11/13/16 17:32 18 11/13/16 16:24 97.4 103 18 99/69 95 11/13/16 13:00 35 11/13/16 12:27 99.4 80 18 115/78 97 11/13/16 08:29 98.6 82 18 103/63 100 11/13/16 08:00 79 11/13/16 07:48 98 Trach Collar 35 11/13/16 07:16 88 129/71 11/13/16 07:15 Trach Collar 6.00 28 11/13/16 04:00 97.7 75 18 97/57 96 11/13/16 00:00 98.6 78 18 131/83 97 11/12/16 23:00 Trach Collar 6.00 35 11/12/16 22:15 95 Trach Collar 35 11/12/16 22:00 89 11/12/16 20:00 98 20 119/59 93 I/O 11/12/16 11/12/16 11/12/16 11/13/16 11/13/16 11/13/16 07:00 15:00 23:00 07:00 15:00 23:00 Intake Total 360 ml 720 ml 580 ml 840 ml Output Total 950 ml 900 ml 650 ml 500 ml 650 ml Balance -590 ml -180 ml -650 ml 80 ml 190 ml Intake Oral 360 ml 720 ml 580 ml 840 ml Output Urine Total 950 ml 900 ml 650 ml 500 ml 650 ml # Bowel Movements 1 1 1 2 Result Diagram: 11/13/16 0849 11/12/16 0830 Objective Remarks This is an obese middle-aged white female who is alert HEENT: Head normocephalic.throat clear. Neck: No bruits, no thyroid enlargement, no lymphadenopathy. Chest: Decreased breath sounds. wheeze heard Heart: Heart sounds were regular. S1-S2 no murmur, no S3. Abdomen: Soft, benign. No masses, or tenderness. Bowel sounds are active. Extremities:min edema . Neuro :Moves all limbs.no deficits. Alert and Oriented Assessment and Plan Assessment and Plan IMPRESSION 1. Acute hypercapnic respiratory failure.Resolving 2. Pulmonary edema. 3. Drug rash 4. Obstructive sleep apnea syndrome 5. Hypertension 6. Hypothyroidism. 7. MIKE Plan : 1. Cont on T Bar 35 % all the time 2. Trach toilet and suctioning. 3. Nebs qid , duoneb. 4. Rehab placement 5. Use PM valve to talk. 6. CPAP at HS if she desats <92 7. Tube feeds at 60 CC 8. Labs in am 9. Up in chair daily. Abimael Beck MD Nov 13, 2016 19:26
[2016-11-13] MEDS: PRAVASTATIN SOD 20 MG TAB PO SCH (22:02)
[2016-11-13] MEDS: MELATONIN 5 MG TAB PO SCH (22:02)
[2016-11-14] VITALS (12 sets, daily range): BP systolic 106–121; BP diastolic 59–79; PULSE 66–99; RESP 18–20; TEMP 96.1–98.3; O2SAT 92–99
[2016-11-14] MEDS: RESP: COLISTIN 150 MG VIAL NEB SCH ×2 (00:57→08:57)
[2016-11-14] MEDS: CHLORHEXIDINE GLUCONATE 2 % 1 PACK (2 CLOTHS) TOP SCH (04:00)
[2016-11-14] MEDS: QUEtiapine FUMARATE 25 MG TAB PO SCH ×3 (06:55→21:22)
[2016-11-14] MEDS: LEVOTHYROXINE SODIUM 200 MCG TAB PO SCH (06:55)
[2016-11-14] MEDS: METOPROLOL TARTRATE 25 MG TAB G-TUBE SCH ×3 (06:55→21:23)
[2016-11-14] MEDS: RESP: ALBUTEROL 2.5 MG/3 ML NEB (PRN) NEB (08:57)
[2016-11-14] MEDS: DOCUSATE SODIUM 50 MG/SENNA 8.6 MG TAB PO SCH ×2 (09:00→21:23)
[2016-11-14] MEDS: SODIUM CHLORIDE 0.9% FLUSH 10 ML FLUSH IV FLUSH SCH ×2 (09:00→21:26)
[2016-11-14] MEDS: SODIUM CHLORIDE 0.9% FLUSH 10 ML FLUSH IVF SCH (09:00)
[2016-11-14] MEDS: BENEPROTEIN POWDER 1 PACK G-TUBE SCH ×3 (09:00→16:02)
[2016-11-14] MEDS: EUCERIN CREAM 120 GM JAR TOPICAL SCH ×2 (09:00→21:24)
[2016-11-14] MEDS: POTASSIUM CHLORIDE 20 MEQ PWD PACKET NG SCH ×2 (09:00→21:24)
[2016-11-14] MEDS: ARTIFICIAL TEARS OPTH SOLN 15 ML BTL EACH EYE SCH ×3 (09:35→16:02)
[2016-11-14] MEDS: FAMOTIDINE 40 MG/5 ML LIQ 50 ML BTL NG SCH ×2 (09:36→21:24)
--- NOTE | 2016-11-14 11:14 | HHI.PR ---
Subjective Remarks Follow up on patient with acute on chronic respiratory failure s/p tracheostomy. Patient seen and examined today. She is doing well. She denies any acute medical complaints. No fever, chills, nausea, vomiting, diarrhea, SOB , chest pain or abdominal pain. (+)BM this am. Objective Vitals Vital Signs Date Time Temp Pulse Resp B/P Pulse Ox O2 Delivery O2 Flow Rate FiO2 11/14/16 09:01 99 Trach Collar 6.00 35 11/14/16 08:25 98.3 66 20 106/65 97 11/14/16 08:00 79 11/14/16 05:25 97.2 91 19 119/76 99 11/14/16 04:42 Trach Collar 6.00 28 11/14/16 02:00 99 11/14/16 00:59 99 Trach Collar 6.00 35 11/14/16 00:20 97.7 91 18 114/64 92 11/13/16 22:17 19 11/13/16 21:05 Trach Collar 6.00 28 11/13/16 20:14 97.3 100 21 93/71 91 11/13/16 16:24 97.4 103 18 99/69 95 11/13/16 13:00 35 11/13/16 12:27 99.4 80 18 115/78 97 I/O 11/13/16 11/13/16 11/13/16 11/14/16 11/14/16 11/14/16 07:00 15:00 23:00 07:00 15:00 23:00 Intake Total 580 ml 840 ml Output Total 500 ml 650 ml 1100 ml Balance 80 ml 190 ml -1100 ml Intake Oral 580 ml 840 ml Output Urine Total 500 ml 650 ml 1100 ml # Bowel Movements 2 0 1 Result Diagram: 11/13/16 0849 11/12/16 0830 Imaging Last Impressions Chest X-Ray 11/13/16 0600 Signed Impressions: Service Date/Time: Sunday, November 13, 2016 06:04 - CONCLUSION: 1. Stable right lower lobe linear airspace disease, likely atelectasis. 2. No interval change. Kel Stone MD Central Venous Line 10/20/16 0000 Signed Impressions: Service Date/Time: Thursday, October 20, 2016 00:00 - CONCLUSION: Uncomplicated Permcath removal. Didier Zhang MD Catheter Placement X-Ray 09/29/16 1223 Signed Impressions: Service Date/Time: Thursday, September 29, 2016 12:31 - CONCLUSION: Vas-Cath to PermCath exchange as detailed above. Taco Haas Jr., MD Renal Ultrasound 09/17/16 0000 Signed Impressions: Service Date/Time: Saturday, September 17, 2016 13:31 - CONCLUSION: Negative renal sonogram. Taco Davidson MD Upper Extremity Ultrasound 09/14/16 0000 Signed Impressions: Service Date/Time: August 08:32 - CONCLUSION: There is thrombus within the left subclavian and internal jugular veins. Danyel Escalante MD Lower Extremity Ultrasound 09/13/16 0000 Signed Impressions: Service Date/Time: Tuesday, September 13, 2016 22:33 - CONCLUSION: Normal examination. Leonides Mason MD Liver Ultrasound 09/08/16 0000 Signed Impressions: Service Date/Time: Thursday, September 08, 2016 08:45 - CONCLUSION: 1. Cholelithiasis with distended gallbladder. However, there are no associated findings present to diagnose acute cholecystitis. If there is persistent clinical concern for acute cholecystitis could evaluate for cystic duct obstruction with hepatobiliary scintigraphy. 2. Hepatomegaly with very heterogeneous echotexture and steatosis. Dejan Allison MD Gall Bladder Ultrasound 08/29/16 0000 Signed Impressions: Service Date/Time: Monday, August 29, 2016 15:21 - CONCLUSION: 1. Hepatomegaly with heterogeneous echotexture throughout the liver. 2. There is a large echogenic area near the neck of the gallbladder suggestive of a stone, but despite its large size, demonstrates no acoustic shadowing in any of the views. Taco Davidson MD CT Angiography 08/15/16 0000 Signed Impressions: Service Date/Time: Monday, August 15, 2016 02:33 - CONCLUSION: 1. No evidence for pulmonary embolism. 2. Multifocal consolidation greatest in the right lower lobe and associated adenopathy. Terry Estrada MD Objective Remarks GENERAL: Well-nourished, well-developed patient in NAD. s/p tracheostomy. Awake and alert. Lying in hospital bed. SKIN: Warm and dry. No rash. HEENT: Normocephalic. Atraumatic. EOMI. MMM. CARDIOVASCULAR: Regular rate and rhythm. S1, S2 noted. No murmur appreciated. RESPIRATORY: No accessory muscle use. Clear to auscultation. Breath sounds equal bilaterally. GASTROINTESTINAL: Abdomen soft, non-tender, nondistended. Normoactive bowel sounds x4. PEG in place. MUSCULOSKELETAL: No obvious deformities. Extremities without clubbing, cyanosis , or edema. NEUROLOGICAL: Awake and alert. Able to move all extremities. No focal neurologic findings appreciated. Procedures 09/15/2016 bronchoscopy 09/11/2016 bronchoscopy 09/10/2016 left IJ central venous line 08/28/2016 subclavian 7 [place] triple-lumen catheter left-sided. 08/18/2016 right arterial line 08/18/2016 right IJ central line Medications and IVs Current Medications Medications (Trade) Dose Ordered Sig/Josephine Route Start Time Stop Time Status Last Admin (Synthroid) 200 mcg DAILY@06 PO 08/15/16 06:00 11/14/16 06:55 (Pravachol) 20 mg HS PO 08/15/16 21:00 11/13/16 22:02 (NS Flush) 2 ml UNSCH PRN IVF 08/14/16 23:15 10/08/16 11:53 (NS Flush) 2 ml BID IV FLUSH 08/15/16 09:00 11/14/16 09:00 (Tylenol) 650 mg Q6H PRN PO 08/14/16 23:15 11/07/16 22:00 (Morphine Inj) 2 mg Q2H PRN IV 08/14/16 23:15 11/13/16 22:02 (Tears Naturale Opth Soln) 1 drop TID EACH EYE 08/15/16 09:00 11/14/16 09:35 (Zofran Inj) 4 mg Q6H PRN IV 08/14/16 23:15 Miscellaneous Information 1 Q361D XX 08/14/16 23:15 (Chlorhexidine 2% Cloth) Taper DAILY@04 TOP 08/15/16 04:00 08/11/17 03:59 10/31/16 04:00 (Chlorhexidine 2% Cloth) 3 pack UNSCH PRN TOP 08/14/16 23:15 (Beneprotein Powder) 2 pack TID G-TUBE 08/15/16 09:00 11/11/16 09:00 (D50w (Vial) Inj) 25 ml UNSCH PRN IV PUSH 08/16/16 09:15 (NS Flush) DAILY IVF 09/11/16 09:00 11/10/16 09:31 (NS Flush) UNSCH PRN IVF 09/10/16 19:15 11/01/16 09:26 (Mannitol Inj) 12.5 gm UNSCH PRN IV 09/20/16 10:30 10/05/16 09:40 (Albumin 25% Inj) 25 gm UNSCH PRN IV 09/20/16 10:30 10/10/16 10:10 (NS Flush) 5 ml UNSCH PRN IV FLUSH 09/20/16 10:30 09/21/16 13:24 (Heparin Inj) UNSCH PRN .XX 09/20/16 10:30 10/12/16 10:48 (Gentamicin (Dialysis) Inj) 20 mg UNSCH PRN IV 09/20/16 10:30 10/14/16 12:35 (Zofran Inj) 4 mg UNSCH PRN IV 09/20/16 10:30 (Tylenol) 650 mg UNSCH PRN PO 09/20/16 10:30 (Benadryl) 25 mg UNSCH PRN PO 09/20/16 10:30 11/01/16 05:05 (Nitrostat Sl) 0.4 mg UNSCH PRN SL 09/20/16 10:30 Gelatin 1 foam 1 foam UNSCH PRN TOP 09/20/16 10:30 (Coumadin Consult Pharmacy) 0 ml @ 0 mls/hr UNSCH OTHER 09/26/16 20:45 (Eucerin Cream) 1 applic BID TOPICAL 09/27/16 21:00 11/14/16 09:00 (SEROquel) 75 mg Q8HR PO 09/28/16 14:00 11/14/16 06:55 (NS Flush) UNSCH PRN IVF 09/29/16 12:45 (Heparin Inj) UNSCH PRN IV FLUSH 09/29/16 12:45 (Melatonin) 5 mg HS PO 10/07/16 21:00 11/13/16 22:02 (Ativan Inj) 1 mg Q6H PRN IV PUSH 10/15/16 11:45 11/11/16 22:23 (Lopressor) 50 mg Q8HR G-TUBE 10/21/16 14:00 11/14/16 06:55 (Nitroglycerin 2% Oint) 2 inch Q6HR PRN TOPICAL 10/21/16 13:15 (KCl Powder) 20 meq Q12HR NG 10/24/16 21:00 11/14/16 09:00 (Levsin Liq) 0.125 mg Q4H PRN PO 10/26/16 12:30 11/13/16 05:27 (Pepcid Liq) 20 mg BID NG 10/30/16 21:00 11/14/16 09:36 (Sharlene-Colace) 2 tab BID PO 11/09/16 13:00 11/13/16 22:02 (Milk Of Magnesia Liq) 30 ml Q6H PRN PO 11/09/16 13:00 (Coumadin) 6 mg DAILY@16 PO 11/13/16 16:00 11/13/16 17:07 A/P Assessment and Plan 56-year-old female admitted with respiratory failure and pneumonia, now with chronic tracheostomy and chronic respiratory failure. Acute toxic metabolic encephalopathy Critical care myopathy Agitated delirium -Resolved -Seroquel 75 mg every 8 hours for agitation -Melatonin 5mg po qHS for insomnia -Acetaminophen for fever/pain Acute on chronic hypercapnic and hypoxemic respiratory failure Pneumonia community-acquired, now with HCAP with carbapenem-resistant pseudomonas and ESBL Klebsiella VAP. 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 Hypertension Dyslipidemia -BP controlled -Continue metoprolol 50 mg every 8 hours. -Continue pravastatin Acute kidney injury - requiring hemodialysis -Follow I's and O's -Nephrology following -Dialysis presently on hold -creatinine much improved. Previously 4.11, now 0.72 Elevated transaminases Cholelithiasis -Twice a day Pepcid -Follow transaminases - AST and ALT WNL -Follow clinically -No reports of abdominal pain presently Pseudomonas pneumonia Funguria, Maribell glabrata and parapsilosis. -Colistin nebs stop date 11/14/2016 -Pulm following -History of cultures: Blood cultures 08/28: NGTD C Diff negative 08/28. Lines changed 08/28. Sputum 08/30 - Pseudomonas Sputum 09/02 PSAE, resistant to carbapenem, intermediate to Levaquin. 09/07 - urine -Maribell Guilliermondii 09/07 - blood cultures 2 - no growth 09/09 - urine -strep viridans, Maribell parapsilosis 09/10 - blood cultures 2 -no growth 09/11 - broch washings -no growth to date 09/12 - urine -Maribell glabrata and parapsilosis 09/16 - blood cultures 2 - pending 09/16 - sputum -no growth 09/16 - urine -Maribell glabrata and parapsilosis 10/02 - blood cultures 2 - staph epi 10/02 - urine - ESBL positive Klebsiella 10/04 - blood cultures 2 -no growth 10/05 - blood cultures 2 -no growth 10/17 - blood cultures -no growth 10/17 - sputum -Klebsiella ESBL positive and Stenotrophomonas maltophilia 10/17 - urine -C glabrata 10/21/ 10/22 - urine - ESBL positive Klebsiella Left IJ/subclavian nonocclusive thrombus Peripheral smear with leukoerythroblastosis - likely reactive -Continue Coumadin -INR remains therapeutic, 2.8 -Continue to follow INR -Heparin bridge discontinued Hypothyroidism -Synthroid 200mcg daily GI prophylaxis -Protonix 40mg Q12 DVT prophylaxis -Coumadin Lines: Peripheral IV. - PEG 09/01/16 - Trach 09/15 - Right Permacath placed 09/29 Full code. Warfarin. Discussed with patient and Dr. Waldrop. Paola Ellison Nov 14, 2016 11:14
[2016-11-14 11:46] LABS: APTT (PATIENT) 48.9 SEC (24.3-30.1); INTERNATIONAL NORMALIZED RATIO 2.5 RATIO; PROTHROMBIN TIME - PATIENT 28.8 SEC (9.8-11.6)
[2016-11-14 13:51] LABS: MEAN CELL VOLUME 83.9 FL (80.0-100.0); MEAN CORPUSCULAR HEMOGLOBIN 27.6 PG (27.0-34.0); MEAN CORPUSCULAR HGB CONC 32.9 % (32.0-36.0); PLATELET COUNT 308 TH/MM3 (150-450); RED BLOOD COUNT 3.82 MIL/MM3 (4.00-5.30); RED CELL DISTRIBUTION WIDTH 17.7 % (11.6-17.2); REVIEW FLAG FINAL; WHITE BLOOD COUNT 9.8 TH/MM3 (4.0-11.0)
[2016-11-14] MEDS: MORPHINE SULFATE 4 MG/ML INJ IV PRN ×2 (14:14→21:38)
[2016-11-14] MEDS: WARFARIN SOD 6 MG TAB PO SCH (16:58)
[2016-11-14] MEDS: PRAVASTATIN SOD 20 MG TAB PO SCH (21:23)
[2016-11-14] MEDS: MELATONIN 5 MG TAB PO SCH (21:23)
[2016-11-15] VITALS (9 sets, daily range): BP systolic 101–126; BP diastolic 52–88; PULSE 84–106; RESP 19–22; TEMP 97.1–98.4; O2SAT 94–98
[2016-11-15] MEDS: CHLORHEXIDINE GLUCONATE 2 % 1 PACK (2 CLOTHS) TOP SCH (02:59)
[2016-11-15] MEDS: QUEtiapine FUMARATE 25 MG TAB PO SCH ×3 (05:34→22:38)
[2016-11-15] MEDS: LEVOTHYROXINE SODIUM 200 MCG TAB PO SCH (05:34)
[2016-11-15] MEDS: METOPROLOL TARTRATE 25 MG TAB G-TUBE SCH ×3 (05:34→22:38)
[2016-11-15 07:38] LABS: APTT (PATIENT) 41.4 SEC (24.3-30.1); INTERNATIONAL NORMALIZED RATIO 2.3 RATIO; PROTHROMBIN TIME - PATIENT 26.1 SEC (9.8-11.6)
[2016-11-15] MEDS: SODIUM CHLORIDE 0.9% FLUSH 10 ML FLUSH IV FLUSH SCH ×2 (08:29→22:39)
[2016-11-15] MEDS: BENEPROTEIN POWDER 1 PACK G-TUBE SCH ×3 (08:29→17:10)
[2016-11-15] MEDS: SODIUM CHLORIDE 0.9% FLUSH 10 ML FLUSH IVF SCH (08:30)
[2016-11-15] MEDS: FAMOTIDINE 40 MG/5 ML LIQ 50 ML BTL NG SCH ×2 (08:30→22:50)
[2016-11-15] MEDS: POTASSIUM CHLORIDE 20 MEQ PWD PACKET NG SCH ×2 (08:30→22:39)
[2016-11-15] MEDS: DOCUSATE SODIUM 50 MG/SENNA 8.6 MG TAB PO SCH ×2 (08:30→22:37)
[2016-11-15] MEDS: EUCERIN CREAM 120 GM JAR TOPICAL SCH ×2 (08:31→21:00)
[2016-11-15] MEDS: ARTIFICIAL TEARS OPTH SOLN 15 ML BTL EACH EYE SCH ×3 (08:32→17:10)
--- NOTE | 2016-11-15 09:33 | HHI.PR ---
Subjective Remarks Follow up on patient with acute on chronic respiratory failure s/p tracheostomy. Patient seen and examined today. Patient is sleeping but awakens easily. She denies any complaints. No fever, chills, N/V, SOB, chest pain or abdominal pain. Objective Vitals Vital Signs Date Time Temp Pulse Resp B/P Pulse Ox O2 Delivery O2 Flow Rate FiO2 11/15/16 08:17 97.5 84 19 122/76 98 11/15/16 04:25 97.4 103 19 103/55 96 11/15/16 00:07 97.2 90 19 101/52 96 11/14/16 22:10 93 Trach Collar 35 11/14/16 21:45 22 11/14/16 20:17 97.6 85 19 117/74 94 11/14/16 20:00 Trach Collar 6.00 28 11/14/16 20:00 88 11/14/16 16:10 96.1 85 20 121/79 94 11/14/16 12:55 97.9 89 19 121/59 93 I/O 11/14/16 11/14/16 11/14/16 11/15/16 11/15/16 11/15/16 07:00 15:00 23:00 07:00 15:00 23:00 Intake Total 480 ml 360 ml Output Total 1100 ml 1000 ml 1400 ml Balance -1100 ml -520 ml -1040 ml Intake Oral 480 ml 360 ml Output Urine Total 1100 ml 1000 ml 1400 ml # Bowel Movements 0 2 Result Diagram: 11/14/16 1310 11/12/16 0830 Imaging Last Impressions Chest X-Ray 11/13/16 0600 Signed Impressions: Service Date/Time: Sunday, November 13, 2016 06:04 - CONCLUSION: 1. Stable right lower lobe linear airspace disease, likely atelectasis. 2. No interval change. Kel Stone MD Central Venous Line 10/20/16 0000 Signed Impressions: Service Date/Time: Thursday, October 20, 2016 00:00 - CONCLUSION: Uncomplicated Permcath removal. Didier Zhang MD Catheter Placement X-Ray 09/29/16 1223 Signed Impressions: Service Date/Time: Thursday, September 29, 2016 12:31 - CONCLUSION: Vas-Cath to PermCath exchange as detailed above. Taco Haas Jr., MD Renal Ultrasound 4/23/17 0000 Signed Impressions: Service Date/Time: Saturday, September 17, 2016 13:31 - CONCLUSION: Negative renal sonogram. Taco Davidson MD Upper Extremity Ultrasound 09/14/16 0000 Signed Impressions: Service Date/Time: August 08:32 - CONCLUSION: There is thrombus within the left subclavian and internal jugular veins. Danyel Escalante MD Lower Extremity Ultrasound 09/13/16 0000 Signed Impressions: Service Date/Time: Tuesday, September 13, 2016 22:33 - CONCLUSION: Normal examination. Leonides Mason MD Liver Ultrasound 09/08/16 0000 Signed Impressions: Service Date/Time: Thursday, September 08, 2016 08:45 - CONCLUSION: 1. Cholelithiasis with distended gallbladder. However, there are no associated findings present to diagnose acute cholecystitis. If there is persistent clinical concern for acute cholecystitis could evaluate for cystic duct obstruction with hepatobiliary scintigraphy. 2. Hepatomegaly with very heterogeneous echotexture and steatosis. Dejan Allison MD Gall Bladder Ultrasound 08/29/16 0000 Signed Impressions: Service Date/Time: Monday, August 29, 2016 15:21 - CONCLUSION: 1. Hepatomegaly with heterogeneous echotexture throughout the liver. 2. There is a large echogenic area near the neck of the gallbladder suggestive of a stone, but despite its large size, demonstrates no acoustic shadowing in any of the views. Taco Davidson MD CT Angiography 08/15/16 0000 Signed Impressions: Service Date/Time: Monday, August 15, 2016 02:33 - CONCLUSION: 1. No evidence for pulmonary embolism. 2. Multifocal consolidation greatest in the right lower lobe and associated adenopathy. Terry Estrada MD Objective Remarks GENERAL: Well-nourished, well-developed patient in NAD. s/p tracheostomy. Sleeping in hospital bed but easily awakens to voice. SKIN: Warm and dry. No rash. HEENT: Normocephalic. Atraumatic. EOMI. MMM. CARDIOVASCULAR: Regular rate and rhythm. S1, S2 noted. No murmur appreciated. RESPIRATORY: Trach collar in place. No accessory muscle use. Clear to auscultation. Breath sounds equal bilaterally. GASTROINTESTINAL: Abdomen soft, non-tender, nondistended. Normoactive bowel sounds x4. MUSCULOSKELETAL: No obvious deformities. Extremities without clubbing, cyanosis , or edema. NEUROLOGICAL: Awake and alert. Able to move all extremities. No focal neurologic findings appreciated. Procedures 09/15/2016 bronchoscopy 09/11/2016 bronchoscopy 09/10/2016 left IJ central venous line 08/28/2016 subclavian 7 [place] triple-lumen catheter left-sided. 08/18/2016 right arterial line 08/18/2016 right IJ central line Medications and IVs Current Medications Medications (Trade) Dose Ordered Sig/Josephine Route Start Time Stop Time Status Last Admin (Synthroid) 200 mcg DAILY@06 PO 08/15/16 06:00 11/15/16 05:34 (Pravachol) 20 mg HS PO 08/15/16 21:00 11/14/16 21:23 (NS Flush) 2 ml UNSCH PRN IVF 08/14/16 23:15 10/08/16 11:53 (NS Flush) 2 ml BID IV FLUSH 08/15/16 09:00 11/15/16 08:29 (Tylenol) 650 mg Q6H PRN PO 08/14/16 23:15 11/07/16 22:00 (Morphine Inj) 2 mg Q2H PRN IV 08/14/16 23:15 11/14/16 21:38 (Tears Naturale Opth Soln) 1 drop TID EACH EYE 08/15/16 09:00 11/15/16 08:32 (Zofran Inj) 4 mg Q6H PRN IV 08/14/16 23:15 Miscellaneous Information 1 Q361D XX 08/14/16 23:15 (Chlorhexidine 2% Cloth) Taper DAILY@04 TOP 08/15/16 04:00 08/11/17 03:59 10/31/16 04:00 (Chlorhexidine 2% Cloth) 3 pack UNSCH PRN TOP 08/14/16 23:15 (Beneprotein Powder) 2 pack TID G-TUBE 08/15/16 09:00 11/11/16 09:00 (D50w (Vial) Inj) 25 ml UNSCH PRN IV PUSH 08/16/16 09:15 (NS Flush) DAILY IVF 09/11/16 09:00 11/15/16 08:30 (NS Flush) UNSCH PRN IVF 09/10/16 19:15 11/01/16 09:26 (Mannitol Inj) 12.5 gm UNSCH PRN IV 09/20/16 10:30 10/05/16 09:40 (Albumin 25% Inj) 25 gm UNSCH PRN IV 09/20/16 10:30 10/10/16 10:10 (NS Flush) 5 ml UNSCH PRN IV FLUSH 09/20/16 10:30 09/21/16 13:24 (Heparin Inj) UNSCH PRN .XX 09/20/16 10:30 10/12/16 10:48 (Gentamicin (Dialysis) Inj) 20 mg UNSCH PRN IV 09/20/16 10:30 10/14/16 12:35 (Zofran Inj) 4 mg UNSCH PRN IV 09/20/16 10:30 (Tylenol) 650 mg UNSCH PRN PO 09/20/16 10:30 (Benadryl) 25 mg UNSCH PRN PO 09/20/16 10:30 11/01/16 05:05 (Nitrostat Sl) 0.4 mg UNSCH PRN SL 09/20/16 10:30 Gelatin 1 foam 1 foam UNSCH PRN TOP 09/20/16 10:30 (Coumadin Consult Pharmacy) 0 ml @ 0 mls/hr UNSCH OTHER 09/26/16 20:45 (Eucerin Cream) 1 applic BID TOPICAL 09/27/16 21:00 11/15/16 08:31 (SEROquel) 75 mg Q8HR PO 09/28/16 14:00 11/15/16 05:34 (NS Flush) UNSCH PRN IVF 09/29/16 12:45 (Heparin Inj) UNSCH PRN IV FLUSH 09/29/16 12:45 (Melatonin) 5 mg HS PO 10/07/16 21:00 11/14/16 21:23 (Ativan Inj) 1 mg Q6H PRN IV PUSH 10/15/16 11:45 11/11/16 22:23 (Lopressor) 50 mg Q8HR G-TUBE 10/21/16 14:00 11/14/16 21:23 (Nitroglycerin 2% Oint) 2 inch Q6HR PRN TOPICAL 10/21/16 13:15 (KCl Powder) 20 meq Q12HR NG 10/24/16 21:00 11/15/16 08:30 (Levsin Liq) 0.125 mg Q4H PRN PO 10/26/16 12:30 11/13/16 05:27 (Pepcid Liq) 20 mg BID NG 10/30/16 21:00 11/15/16 08:30 (Sharlene-Colace) 2 tab BID PO 11/09/16 13:00 11/15/16 08:30 (Milk Of Magnesia Liq) 30 ml Q6H PRN PO 11/09/16 13:00 (Coumadin) 6 mg DAILY@16 PO 11/13/16 16:00 11/14/16 16:58 A/P Assessment and Plan 56-year-old female admitted with respiratory failure and pneumonia, now with chronic tracheostomy and chronic respiratory failure. Acute toxic metabolic encephalopathy Critical care myopathy Agitated delirium -Resolved -Seroquel 75 mg every 8 hours for agitation -Melatonin 5mg po qHS for insomnia -Acetaminophen for fever/pain Acute on chronic hypercapnic and hypoxemic respiratory failure Pneumonia community-acquired, now with HCAP with carbapenem-resistant pseudomonas and ESBL Klebsiella VAP. 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 Hypertension Dyslipidemia -BP controlled 122/76 -Continue metoprolol 50 mg every 8 hours. -Continue pravastatin Acute kidney injury - requiring hemodialysis -Follow I's and O's -Nephrology following -Dialysis presently on hold -creatinine much improved. Previously 4.11, now 0.72 Elevated transaminases Cholelithiasis -Twice a day Pepcid -Follow transaminases - AST and ALT WNL -Follow clinically -No reports of abdominal pain presently Pseudomonas pneumonia Funguria, Maribell glabrata and parapsilosis. -Colistin nebs stop date 11/14/2016 -Pulm following -History of cultures: Blood cultures 08/28: NGTD C Diff negative 08/28. Lines changed 08/28. Sputum 08/30 - Pseudomonas Sputum 09/02 PSAE, resistant to carbapenem, intermediate to Levaquin. 09/07 - urine -Maribell Guilliermondii 09/07 - blood cultures 2 - no growth 09/09 - urine -strep viridans, Maribell parapsilosis 09/10 - blood cultures 2 -no growth 09/11 - broch washings -no growth to date 09/12 - urine -Maribell glabrata and parapsilosis 09/16 - blood cultures 2 - pending 09/16 - sputum -no growth 09/16 - urine -Maribell glabrata and parapsilosis 10/02 - blood cultures 2 - staph epi 10/02 - urine - ESBL positive Klebsiella 10/04 - blood cultures 2 -no growth 10/05 - blood cultures 2 -no growth 10/17 - blood cultures -no growth 10/17 - sputum -Klebsiella ESBL positive and Stenotrophomonas maltophilia 10/17 - urine -C glabrata 10/21/ 10/22 - urine - ESBL positive Klebsiella Left IJ/subclavian nonocclusive thrombus 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 - PEG 09/01/16 - Trach 09/15 - Right Permacath placed 09/29 Full code. Warfarin. Discussed with patient and Dr. Waldrop. Paola Ellison Nov 15, 2016 09:33
[2016-11-15] MEDS: WARFARIN SOD 6 MG TAB PO SCH (14:20)
--- NOTE | 2016-11-15 18:50 | HHI.PR ---
Subjective Remarks Stable on a T Bar 28 %.Doing well . Was up in chair. talking with PM valve . Objective Vital Signs Date Time Temp Pulse Resp B/P Pulse Ox O2 Delivery O2 Flow Rate FiO2 11/15/16 16:10 97.1 106 19 126/81 94 11/15/16 12:39 97.6 96 19 125/88 98 11/15/16 09:00 98 Trach Collar 4.00 28 11/15/16 09:00 4.00 28 11/15/16 08:17 97.5 84 19 122/76 98 11/15/16 08:00 86 11/15/16 07:15 Trach Collar 6.00 28 11/15/16 04:25 97.4 103 19 103/55 96 11/15/16 00:07 97.2 90 19 101/52 96 11/14/16 22:10 93 Trach Collar 35 11/14/16 21:45 22 11/14/16 20:17 97.6 85 19 117/74 94 11/14/16 20:00 Trach Collar 6.00 28 11/14/16 20:00 88 I/O 11/14/16 11/14/16 11/14/16 11/15/16 11/15/16 11/15/16 07:00 15:00 23:00 07:00 15:00 23:00 Intake Total 480 ml 360 ml Output Total 1100 ml 1000 ml 1400 ml 1200 ml Balance -1100 ml -520 ml -1040 ml -1200 ml Intake Oral 480 ml 360 ml Output Urine Total 1100 ml 1000 ml 1400 ml 1200 ml # Bowel Movements 0 2 1 Result Diagram: 11/14/16 1310 11/12/16 0830 Objective Remarks This is an obese middle-aged white female who is alert HEENT: Head normocephalic.throat dry. Neck: No bruits, no thyroid enlargement, no lymphadenopathy. Chest: Decreased breath sounds. wheeze heard in upper chest Heart: Heart sounds were regular. S1-S2 no murmur, no S3. Abdomen: Soft, benign. No masses, or tenderness. Bowel sounds are active. Extremities:min edema . Neuro :Moves all limbs.no deficits. Alert and Oriented Assessment and Plan Assessment and Plan IMPRESSION 1. Acute hypercapnic respiratory failure.Resolving 2. Pulmonary edema. 3. Drug rash 4. Obstructive sleep apnea syndrome 5. Hypertension 6. Hypothyroidism. 7. MIKE Plan : 1. Cont on T Bar 28 % all the time 2. Trach suctioning prn. 3. Nebs qid , duoneb. 4. Rehab placement 5. Use PM valve to talk. 6. CPAP at HS if she desats <92 7. Tube feeds at 60 CC 8. Chest X ray 9. Up in chair daily. Abimael Beck MD Nov 15, 2016 18:50
[2016-11-15] MEDS: PRAVASTATIN SOD 20 MG TAB PO SCH (22:37)
[2016-11-15] MEDS: MELATONIN 5 MG TAB PO SCH (22:37)
[2016-11-15] MEDS: MORPHINE SULFATE 4 MG/ML INJ IV PRN (22:40)
[2016-11-15] MEDS ORDERED: SIMETHICONE SUSP DROPS 40 MG/0.6 ML 30 ML BTL PO ONE (23:45)
[2016-11-16] VITALS (10 sets, daily range): BP systolic 92–134; BP diastolic 66–87; PULSE 77–98; RESP 18–22; TEMP 96.1–99.3; O2SAT 92–100
[2016-11-16] MEDS: CHLORHEXIDINE GLUCONATE 2 % 1 PACK (2 CLOTHS) TOP SCH (00:12)
[2016-11-16] MEDS: QUEtiapine FUMARATE 25 MG TAB PO SCH ×3 (05:37→22:02)
[2016-11-16] MEDS: METOPROLOL TARTRATE 25 MG TAB G-TUBE SCH (05:37)
[2016-11-16] MEDS: LEVOTHYROXINE SODIUM 200 MCG TAB PO SCH (05:37)
[2016-11-16] MEDS: SODIUM CHLORIDE 0.9% FLUSH 10 ML FLUSH IVF SCH (09:00)
[2016-11-16] MEDS: BENEPROTEIN POWDER 1 PACK G-TUBE SCH ×4 (09:00→17:17)
[2016-11-16 09:06] LABS: HEMATOCRIT 31.2 % (35.0-46.0); MEAN CELL VOLUME 84.7 FL (80.0-100.0); MEAN CORPUSCULAR HEMOGLOBIN 27.6 PG (27.0-34.0); MEAN CORPUSCULAR HGB CONC 32.6 % (32.0-36.0); PLATELET COUNT 303 TH/MM3 (150-450); RED BLOOD COUNT 3.68 MIL/MM3 (4.00-5.30); RED CELL DISTRIBUTION WIDTH 18.1 % (11.6-17.2); REVIEW FLAG FINAL; WHITE BLOOD COUNT 8.1 TH/MM3 (4.0-11.0)
[2016-11-16 09:10] LABS: APTT (PATIENT) 38.5 SEC (24.3-30.1)
[2016-11-16] MEDS: ARTIFICIAL TEARS OPTH SOLN 15 ML BTL EACH EYE SCH ×3 (09:10→17:17)
[2016-11-16] MEDS: FAMOTIDINE 40 MG/5 ML LIQ 50 ML BTL NG SCH ×2 (09:14→22:03)
[2016-11-16] MEDS: POTASSIUM CHLORIDE 20 MEQ PWD PACKET NG SCH (09:14)
[2016-11-16] MEDS: SODIUM CHLORIDE 0.9% FLUSH 10 ML FLUSH IV FLUSH SCH ×2 (09:15→22:03)
[2016-11-16] MEDS: DOCUSATE SODIUM 50 MG/SENNA 8.6 MG TAB PO SCH ×2 (09:15→21:00)
[2016-11-16] MEDS: EUCERIN CREAM 120 GM JAR TOPICAL SCH ×2 (09:15→22:04)
[2016-11-16 09:29] LABS: INTERNATIONAL NORMALIZED RATIO 2.1 RATIO; PROTHROMBIN TIME - PATIENT 23.4 SEC (9.8-11.6)
--- NOTE | 2016-11-16 09:32 | HHI.PR ---
Subjective Remarks Follow up on patient with acute on chronic respiratory failure s/p tracheostomy. Patient seen and examined today. Asleep but easily arousable. She denies any acute medical complaints. No headache, dizziness, fever, chills , N/V, SOB, chest pain or abdominal pain. Reports BM yesterday am. Able to tolerate trach cap most of yesterday. Discussed with nursing staff, Lopressor held due to low BP. Tolerating diet. Objective Vitals Vital Signs Date Time Temp Pulse Resp B/P Pulse Ox O2 Delivery O2 Flow Rate FiO2 11/16/16 08:30 97.5 84 18 108/70 98 11/16/16 05:38 81 104/74 92 11/16/16 00:00 98.2 83 22 92/66 95 11/15/16 21:39 95 Trach Collar 5.00 28 11/15/16 20:00 98.4 85 22 115/61 95 11/15/16 20:00 85 11/15/16 19:15 98 Trach Collar 6.00 11/15/16 16:10 97.1 106 19 126/81 94 11/15/16 12:39 97.6 96 19 125/88 98 I/O 11/15/16 11/15/16 11/15/16 11/16/16 11/16/16 11/16/16 07:00 15:00 23:00 07:00 15:00 23:00 Intake Total 360 ml 120 ml Output Total 1400 ml 1200 ml 400 ml Balance -1040 ml -1200 ml -280 ml Intake Oral 360 ml 120 ml Output Urine Total 1400 ml 1200 ml 400 ml # Bowel Movements 1 0 Result Diagram: 11/16/16 0844 11/12/16 0830 Imaging Last Impressions Chest X-Ray 11/13/16 0600 Signed Impressions: Service Date/Time: Sunday, November 13, 2016 06:04 - CONCLUSION: 1. Stable right lower lobe linear airspace disease, likely atelectasis. 2. No interval change. Kel Stone MD Central Venous Line 10/20/16 0000 Signed Impressions: Service Date/Time: Thursday, October 20, 2016 00:00 - CONCLUSION: Uncomplicated Permcath removal. Didier Zhang MD Catheter Placement X-Ray 09/29/16 1223 Signed Impressions: Service Date/Time: Thursday, September 29, 2016 12:31 - CONCLUSION: Vas-Cath to PermCath exchange as detailed above. Taco Haas Jr., MD Renal Ultrasound 09/17/16 0000 Signed Impressions: Service Date/Time: Saturday, September 17, 2016 13:31 - CONCLUSION: Negative renal sonogram. Taco Davidson MD Upper Extremity Ultrasound 09/14/16 0000 Signed Impressions: Service Date/Time: August 08:32 - CONCLUSION: There is thrombus within the left subclavian and internal jugular veins. Danyel Escalante MD Lower Extremity Ultrasound 09/13/16 0000 Signed Impressions: Service Date/Time: Tuesday, September 13, 2016 22:33 - CONCLUSION: Normal examination. Leonides Mason MD Liver Ultrasound 09/08/16 0000 Signed Impressions: Service Date/Time: Thursday, September 08, 2016 08:45 - CONCLUSION: 1. Cholelithiasis with distended gallbladder. However, there are no associated findings present to diagnose acute cholecystitis. If there is persistent clinical concern for acute cholecystitis could evaluate for cystic duct obstruction with hepatobiliary scintigraphy. 2. Hepatomegaly with very heterogeneous echotexture and steatosis. Dejan Allison MD Gall Bladder Ultrasound 08/29/16 0000 Signed Impressions: Service Date/Time: Monday, August 29, 2016 15:21 - CONCLUSION: 1. Hepatomegaly with heterogeneous echotexture throughout the liver. 2. There is a large echogenic area near the neck of the gallbladder suggestive of a stone, but despite its large size, demonstrates no acoustic shadowing in any of the views. Taco Davidson MD CT Angiography 08/15/16 0000 Signed Impressions: Service Date/Time: Monday, August 15, 2016 02:33 - CONCLUSION: 1. No evidence for pulmonary embolism. 2. Multifocal consolidation greatest in the right lower lobe and associated adenopathy. Terry Estrada MD Objective Remarks GENERAL: Well-nourished, well-developed patient in NAD. s/p tracheostomy. Lying in hospital bed. Appears tired but awakens easily. SKIN: Warm and dry. No rash. HEENT: Normocephalic. Atraumatic. EOMI. MMM. CARDIOVASCULAR: Regular rate and rhythm. S1, S2 noted. No murmur appreciated. RESPIRATORY: Trach collar in place. No accessory muscle use. Clear to auscultation. Breath sounds equal bilaterally. GASTROINTESTINAL: Abdomen soft, non-tender, nondistended. Normoactive bowel sounds x4. MUSCULOSKELETAL: No obvious deformities. Extremities without clubbing, cyanosis , or edema. NEUROLOGICAL: Awake and alert. Able to move all extremities. No focal neurologic findings appreciated. Procedures 09/15/2016 bronchoscopy 09/11/2016 bronchoscopy 09/10/2016 left IJ central venous line 08/28/2016 subclavian 7 Citizen Of [place] triple-lumen catheter left-sided. 08/18/2016 right arterial line 08/18/2016 right IJ central line Medications and IVs Current Medications Medications (Trade) Dose Ordered Sig/Josephine Route Start Time Stop Time Status Last Admin (Synthroid) 200 mcg DAILY@06 PO 08/15/16 06:00 11/16/16 05:37 (Pravachol) 20 mg HS PO 08/15/16 21:00 11/15/16 22:37 (NS Flush) 2 ml UNSCH PRN IVF 08/14/16 23:15 10/08/16 11:53 (NS Flush) 2 ml BID IV FLUSH 08/15/16 09:00 11/15/16 22:39 (Tylenol) 650 mg Q6H PRN PO 08/14/16 23:15 11/07/16 22:00 (Morphine Inj) 2 mg Q2H PRN IV 08/14/16 23:15 11/15/16 22:40 (Tears Naturale Opth Soln) 1 drop TID EACH EYE 08/15/16 09:00 11/15/16 17:10 (Zofran Inj) 4 mg Q6H PRN IV 08/14/16 23:15 Miscellaneous Information 1 Q361D XX 08/14/16 23:15 (Chlorhexidine 2% Cloth) Taper DAILY@04 TOP 08/15/16 04:00 08/11/17 03:59 10/31/16 04:00 (Chlorhexidine 2% Cloth) 3 pack UNSCH PRN TOP 08/14/16 23:15 (Beneprotein Powder) 2 pack TID G-TUBE 08/15/16 09:00 11/11/16 09:00 (D50w (Vial) Inj) 25 ml UNSCH PRN IV PUSH 08/16/16 09:15 (NS Flush) DAILY IVF 09/11/16 09:00 11/15/16 08:30 (NS Flush) UNSCH PRN IVF 09/10/16 19:15 11/01/16 09:26 (Mannitol Inj) 12.5 gm UNSCH PRN IV 09/20/16 10:30 10/05/16 09:40 (Albumin 25% Inj) 25 gm UNSCH PRN IV 09/20/16 10:30 10/10/16 10:10 (NS Flush) 5 ml UNSCH PRN IV FLUSH 09/20/16 10:30 09/21/16 13:24 (Heparin Inj) UNSCH PRN .XX 09/20/16 10:30 10/12/16 10:48 (Gentamicin (Dialysis) Inj) 20 mg UNSCH PRN IV 09/20/16 10:30 10/14/16 12:35 (Zofran Inj) 4 mg UNSCH PRN IV 09/20/16 10:30 (Tylenol) 650 mg UNSCH PRN PO 09/20/16 10:30 (Benadryl) 25 mg UNSCH PRN PO 09/20/16 10:30 11/01/16 05:05 (Nitrostat Sl) 0.4 mg UNSCH PRN SL 09/20/16 10:30 Gelatin 1 foam 1 foam UNSCH PRN TOP 09/20/16 10:30 (Coumadin Consult Pharmacy) 0 ml @ 0 mls/hr UNSCH OTHER 09/26/16 20:45 (Eucerin Cream) 1 applic BID TOPICAL 09/27/16 21:00 11/15/16 21:00 (SEROquel) 75 mg Q8HR PO 09/28/16 14:00 11/16/16 05:37 (NS Flush) UNSCH PRN IVF 09/29/16 12:45 (Heparin Inj) UNSCH PRN IV FLUSH 09/29/16 12:45 (Melatonin) 5 mg HS PO 10/07/16 21:00 11/15/16 22:37 (Ativan Inj) 1 mg Q6H PRN IV PUSH 10/15/16 11:45 11/11/16 22:23 (Lopressor) 50 mg Q8HR G-TUBE 10/21/16 14:00 11/15/16 22:38 (Nitroglycerin 2% Oint) 2 inch Q6HR PRN TOPICAL 10/21/16 13:15 (KCl Powder) 20 meq Q12HR NG 10/24/16 21:00 11/15/16 22:39 (Levsin Liq) 0.125 mg Q4H PRN PO 10/26/16 12:30 11/13/16 05:27 (Pepcid Liq) 20 mg BID NG 10/30/16 21:00 11/15/16 22:50 (Sharlene-Colace) 2 tab BID PO 11/09/16 13:00 11/15/16 22:37 (Milk Of Magnesia Liq) 30 ml Q6H PRN PO 11/09/16 13:00 (Coumadin) 6 mg DAILY@16 PO 11/13/16 16:00 11/15/16 14:20 A/P Assessment and Plan 56-year-old female admitted with respiratory failure and pneumonia, now with chronic tracheostomy and chronic respiratory failure. Acute toxic metabolic encephalopathy Critical care myopathy Agitated delirium -Resolved -Seroquel 75 mg every 8 hours for agitation -Melatonin 5mg po qHS for insomnia -Acetaminophen for fever/pain Acute on chronic hypercapnic and hypoxemic respiratory failure Pneumonia community-acquired, now with HCAP with carbapenem-resistant pseudomonas and ESBL Klebsiella VAP. 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 Hypertension Dyslipidemia -low BP -decrease metoprolol to 25 mg every 8 hours with parameters. -Continue pravastatin Acute kidney injury - requiring hemodialysis -Follow I's and O's -Nephrology following -Dialysis presently on hold -creatinine much improved. Previously 4.11, now 0.83 Elevated transaminases Cholelithiasis -Twice a day Pepcid -Follow transaminases - AST and ALT WNL -Follow clinically -Patient denies any recent episodes of abdominal pain Pseudomonas pneumonia Funguria, Maribell glabrata and parapsilosis. -Colistin nebs stop date 11/14/2016 -Pulm following -History of cultures: Blood cultures 08/28: NGTD C Diff negative 08/28. Lines changed 08/28. Sputum 08/30 - Pseudomonas Sputum 09/02 PSAE, resistant to carbapenem, intermediate to Levaquin. 09/07 - urine -Maribell Guilliermondii 09/07 - blood cultures 2 - no growth 09/09 - urine -strep viridans, Maribell parapsilosis 09/10 - blood cultures 2 -no growth 09/11 - broch washings -no growth to date 09/12 - urine -Maribell glabrata and parapsilosis 09/16 - blood cultures 2 - pending 09/16 - sputum -no growth 09/16 - urine -Maribell glabrata and parapsilosis 10/02 - blood cultures 2 - staph epi 10/02 - urine - ESBL positive Klebsiella 10/04 - blood cultures 2 -no growth 10/05 - blood cultures 2 -no growth 10/17 - blood cultures -no growth 10/17 - sputum -Klebsiella ESBL positive and Stenotrophomonas maltophilia 10/17 - urine -C glabrata 10/21/ 10/22 - urine - ESBL positive Klebsiella Left IJ/subclavian nonocclusive thrombus 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 - PEG 09/01/16 s/p removal 11/06 - Trach 09/15 - Right Permacath placed 09/29 Full code. Warfarin. Discussed with patient and Dr. Waldrop. Paola Ellison Nov 16, 2016 09:32
[2016-11-16 14:11] LABS: BICARBONATE 27.4 MEQ/L (21.0-32.0); POTASSIUM 4.2 MEQ/L (3.5-5.1)
[2016-11-16] MEDS: METOPROLOL TARTRATE 25 MG TAB PO SCH ×2 (14:25→22:02)
[2016-11-16] MEDS: WARFARIN SOD 6 MG TAB PO SCH (17:17)
--- NOTE | 2016-11-16 18:58 | HHI.PR ---
Subjective Remarks Stable with trach capped.Doing well . Was up in chair. talking now Objective Vital Signs Date Time Temp Pulse Resp B/P Pulse Ox O2 Delivery O2 Flow Rate FiO2 11/16/16 16:39 99.3 95 18 134/87 100 11/16/16 12:58 96.1 98 18 121/77 98 11/16/16 11:36 77 11/16/16 09:54 97 Nasal Cannula 3.00 11/16/16 09:27 98 Trach Collar 6.00 11/16/16 08:30 97.5 84 18 108/70 98 11/16/16 05:38 81 104/74 92 11/16/16 00:00 98.2 83 22 92/66 95 11/15/16 21:39 95 Trach Collar 5.00 28 11/15/16 20:00 98.4 85 22 115/61 95 11/15/16 20:00 85 11/15/16 19:15 98 Trach Collar 6.00 I/O 11/15/16 11/15/16 11/15/16 11/16/16 11/16/16 11/16/16 07:00 15:00 23:00 07:00 15:00 23:00 Intake Total 360 ml 120 ml 600 ml Output Total 1400 ml 1200 ml 400 ml 750 ml Balance -1040 ml -1200 ml -280 ml -150 ml Intake Oral 360 ml 120 ml 600 ml Output Urine Total 1400 ml 1200 ml 400 ml 750 ml # Bowel Movements 1 0 2 Result Diagram: 11/16/16 0844 11/16/16 1324 Objective Remarks This is an obese middle-aged white female who is alert HEENT: Head normocephalic.throat dry. Neck: No bruits, no thyroid enlargement, no lymphadenopathy. Chest: Decreased breath sounds. Heart: Heart sounds were regular. S1-S2 no murmur, no S3. Abdomen: Soft, benign. No masses, or tenderness. Bowel sounds are active. Extremities:min edema . Neuro :Moves all limbs.no deficits. Alert and Oriented Assessment and Plan Assessment and Plan IMPRESSION 1. Acute hypercapnic respiratory failure.Resolving 2. Pulmonary edema. 3. Drug rash 4. Obstructive sleep apnea syndrome 5. Hypertension 6. Hypothyroidism. 7. MIKE Plan : 1. Cont on T Bar 28 % all the time 2. Trach suctioning prn. 3. Nebs qid , duoneb. 4. Rehab placement 5. Use PM valve to talk. 6. CPAP at HS if she desats <92 7. Tube feeds at 60 CC 8. Cap trach daytime 9. Up in chair daily. Abimael Beck MD Nov 16, 2016 18:58
[2016-11-16] MEDS: MORPHINE SULFATE 4 MG/ML INJ IV PRN (22:01)
[2016-11-16] MEDS: PRAVASTATIN SOD 20 MG TAB PO SCH (22:01)
[2016-11-16] MEDS: MELATONIN 5 MG TAB PO SCH (22:01)
[2016-11-17] VITALS (8 sets, daily range): BP systolic 92–128; BP diastolic 45–85; PULSE 76–110; RESP 18–20; TEMP 95.6–98.6; O2SAT 92–98
[2016-11-17] MEDS: CHLORHEXIDINE GLUCONATE 2 % 1 PACK (2 CLOTHS) TOP SCH (01:54)
[2016-11-17] MEDS: METOPROLOL TARTRATE 25 MG TAB PO SCH ×3 (06:00→21:58)
[2016-11-17] MEDS: QUEtiapine FUMARATE 25 MG TAB PO SCH ×3 (06:35→21:58)
[2016-11-17] MEDS: LEVOTHYROXINE SODIUM 200 MCG TAB PO SCH (06:35)
--- NOTE | 2016-11-17 08:54 | HHI.PR ---
Subjective Remarks Follow up on patient with acute on chronic respiratory failure s/p tracheostomy. Patient seen and examined today. T-collar in place, mouthing words appropriately. Awake, alert, oriented to self, place and time. Follows commands, left upper extremity weakness noted. Positive BM. Tolerating PO intake. Denies any new acute complaints. Spoke to RN, yesterday PMV was used and patient tolerated well, place on t-collar to rest at night. BP on the lower side today, metoprolol held, requested nurse call if drops any lower. No recent fever, chills, cough, shortness of breath, abdominal pain, nausea, vomiting, diarrhea, dysuria. Objective Vitals Vital Signs Date Time Temp Pulse Resp B/P Pulse Ox O2 Delivery O2 Flow Rate FiO2 11/17/16 08:32 97.4 84 18 115/76 96 11/17/16 04:00 98.0 85 20 92/45 98 11/17/16 00:00 98.3 83 20 116/66 98 11/16/16 23:53 89 11/16/16 21:45 96 Trach Collar 6.00 28 11/16/16 20:00 97.7 98 20 97/71 96 11/16/16 16:39 99.3 95 18 134/87 100 11/16/16 12:58 96.1 98 18 121/77 98 11/16/16 11:36 77 11/16/16 09:54 97 Nasal Cannula 3.00 11/16/16 09:27 98 Trach Collar 6.00 I/O 11/16/16 11/16/16 11/16/16 11/17/16 11/17/16 11/17/16 07:00 15:00 23:00 07:00 15:00 23:00 Intake Total 120 ml 1200 ml 120 ml Output Total 400 ml 1150 ml 300 ml Balance -280 ml 50 ml -180 ml Intake Oral 120 ml 1200 ml 120 ml Output Urine Total 400 ml 1150 ml 300 ml # Bowel Movements 0 3 0 Result Diagram: 11/16/16 0844 11/16/16 1324 Imaging Last Impressions Chest X-Ray 11/13/16 0600 Signed Impressions: Service Date/Time: Sunday, November 13, 2016 06:04 - CONCLUSION: 1. Stable right lower lobe linear airspace disease, likely atelectasis. 2. No interval change. Kel Bozorgmanesh, MD Central Venous Line 10/20/16 0000 Signed Impressions: Service Date/Time: Thursday, October 20, 2016 00:00 - CONCLUSION: Uncomplicated Permcath removal. Didier Zhang MD Catheter Placement X-Ray 09/29/16 1223 Signed Impressions: Service Date/Time: Thursday, September 29, 2016 12:31 - CONCLUSION: Vas-Cath to PermCath exchange as detailed above. Taco Haas Jr., MD Renal Ultrasound 09/17/16 0000 Signed Impressions: Service Date/Time: Saturday, September 17, 2016 13:31 - CONCLUSION: Negative renal sonogram. Taco Davidson MD Upper Extremity Ultrasound 09/14/16 0000 Signed Impressions: Service Date/Time: August 08:32 - CONCLUSION: There is thrombus within the left subclavian and internal jugular veins. Danyel Escalante MD Lower Extremity Ultrasound 09/13/16 0000 Signed Impressions: Service Date/Time: Tuesday, September 13, 2016 22:33 - CONCLUSION: Normal examination. Leonidse Mason MD Liver Ultrasound 09/08/16 0000 Signed Impressions: Service Date/Time: Thursday, September 08, 2016 08:45 - CONCLUSION: 1. Cholelithiasis with distended gallbladder. However, there are no associated findings present to diagnose acute cholecystitis. If there is persistent clinical concern for acute cholecystitis could evaluate for cystic duct obstruction with hepatobiliary scintigraphy. 2. Hepatomegaly with very heterogeneous echotexture and steatosis. Dejan Allison MD Gall Bladder Ultrasound 08/29/16 0000 Signed Impressions: Service Date/Time: Monday, August 29, 2016 15:21 - CONCLUSION: 1. Hepatomegaly with heterogeneous echotexture throughout the liver. 2. There is a large echogenic area near the neck of the gallbladder suggestive of a stone, but despite its large size, demonstrates no acoustic shadowing in any of the views. Taco Davidson MD CT Angiography 08/15/16 0000 Signed Impressions: Service Date/Time: Monday, August 15, 2016 02:33 - CONCLUSION: 1. No evidence for pulmonary embolism. 2. Multifocal consolidation greatest in the right lower lobe and associated adenopathy. Terry Estrada MD Objective Remarks GENERAL: Well-nourished, well-developed patient in NAD. s/p tracheostomy. t- collar in place. Lying in hospital bed. Awake and alert. Following commands. SKIN: Warm and dry. No rash. HEENT: Normocephalic. Atraumatic. CARDIOVASCULAR: Regular rate and rhythm. S1, S2 noted. No murmur appreciated. RESPIRATORY: Trach collar in place. No accessory muscle use. Clear to auscultation. Breath sounds equal bilaterally. GASTROINTESTINAL: Abdomen soft, non-tender, nondistended. Normoactive bowel sounds x4. MUSCULOSKELETAL: No obvious deformities. Extremities without clubbing, cyanosis , or edema. NEUROLOGICAL: Awake and alert. Able to move all extremities. Left upper extremity weakness noted, 3/5. Right upper extremity 5/5. No focal neurologic findings appreciated. Procedures 09/15/2016 bronchoscopy 09/11/2016 bronchoscopy 09/10/2016 left IJ central venous line 08/28/2016 subclavian 7 [place] triple-lumen catheter left-sided. 08/18/2016 right arterial line 08/18/2016 right IJ central line A/P Assessment and Plan 56-year-old female admitted with respiratory failure and pneumonia, now with chronic tracheostomy and chronic respiratory failure. Acute toxic metabolic encephalopathy Critical care myopathy Agitated delirium -Resolved -Seroquel 75 mg every 8 hours for agitation -Melatonin 5mg po qHS for insomnia -Acetaminophen for fever/pain Acute on chronic hypercapnic and hypoxemic respiratory failure Pneumonia community-acquired, now with HCAP with carbapenem-resistant pseudomonas and ESBL Klebsiella VAP. 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 -Continue CPAP at night if sats drop <92% -Pulmonary toilet, Evret -Pulmonology following, appreciate input. Hypertension Dyslipidemia -Low BP today 92/45. Will continue Metoprolol but with HOLD parameters. Requested RN monitor closely and update with any changes. -Continue pravastatin. Acute kidney injury - requiring hemodialysis -Follow I's and O's -Nephrology following -Dialysis presently on hold -creatinine much improved. Previously 4.11, now 0.83 Elevated transaminases Cholelithiasis -Twice a day Pepcid -Follow transaminases - AST and ALT WNL -Follow clinically -Patient denies any recent episodes of abdominal pain Pseudomonas pneumonia Funguria, Maribell glabrata and parapsilosis. -Colistin nebs stop date 11/14/2016 -Pulm following -History of cultures: Blood cultures 08/28: NGTD C Diff negative 08/28. Lines changed 08/28. Sputum 08/30 - Pseudomonas Sputum 09/02 PSAE, resistant to carbapenem, intermediate to Levaquin. 09/07 - urine -Maribell Guilliermondii 09/07 - blood cultures 2 - no growth 09/09 - urine -strep viridans, Maribell parapsilosis 09/10 - blood cultures 2 -no growth 09/11 - broch washings -no growth to date 09/12 - urine -Maribell glabrata and parapsilosis 09/16 - blood cultures 2 - pending 09/16 - sputum -no growth 09/16 - urine -Maribell glabrata and parapsilosis 10/02 - blood cultures 2 - staph epi 10/02 - urine - ESBL positive Klebsiella 10/04 - blood cultures 2 -no growth 10/05 - blood cultures 2 -no growth 10/17 - blood cultures -no growth 10/17 - sputum -Klebsiella ESBL positive and Stenotrophomonas maltophilia 10/17 - urine -C glabrata 10/21/ 10/22 - urine - ESBL positive Klebsiella Left IJ/subclavian nonocclusive thrombus 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 Nikki Martin Nov 17, 2016 08:54
[2016-11-17] MEDS: BENEPROTEIN POWDER 1 PACK G-TUBE SCH ×3 (08:56→17:33)
[2016-11-17] MEDS: SODIUM CHLORIDE 0.9% FLUSH 10 ML FLUSH IV FLUSH SCH ×2 (08:57→21:00)
[2016-11-17] MEDS: ARTIFICIAL TEARS OPTH SOLN 15 ML BTL EACH EYE SCH ×3 (08:57→17:34)
[2016-11-17] MEDS: SODIUM CHLORIDE 0.9% FLUSH 10 ML FLUSH IVF SCH (08:57)
[2016-11-17] MEDS: EUCERIN CREAM 120 GM JAR TOPICAL SCH ×2 (08:58→22:04)
[2016-11-17] MEDS: DOCUSATE SODIUM 50 MG/SENNA 8.6 MG TAB PO SCH ×2 (09:00→22:04)
[2016-11-17 09:29] LABS: HEMATOCRIT 30.1 % (35.0-46.0); MEAN CELL VOLUME 83.4 FL (80.0-100.0); MEAN CORPUSCULAR HEMOGLOBIN 28.1 PG (27.0-34.0); MEAN CORPUSCULAR HGB CONC 33.7 % (32.0-36.0); PLATELET COUNT 302 TH/MM3 (150-450); RED BLOOD COUNT 3.61 MIL/MM3 (4.00-5.30); RED CELL DISTRIBUTION WIDTH 17.6 % (11.6-17.2); REVIEW FLAG FINAL; WHITE BLOOD COUNT 7.6 TH/MM3 (4.0-11.0)
[2016-11-17 09:31] LABS: PROTHROMBIN TIME - PATIENT 22.2 SEC (9.8-11.6)
[2016-11-17 09:32] LABS: APTT (PATIENT) 36.2 SEC (24.3-30.1)
[2016-11-17] MEDS: FAMOTIDINE 20 MG TAB PO SCH ×2 (09:38→21:58)
--- NOTE | 2016-11-17 13:58 | HHI.HCPN ---
Reason for visit a. To assist with evaluation and management of symptoms including: dyspnea, weakness. b. To assist medical decision maker(s) with: better understanding of current medical conditions; weighing benefits/burdens of medical treatment options; making medical treatment decisions. . Subjective/Interval History Patient seen and examined in room. Also present Birdie Haas LCSW. Patient awakens easily. On oxygen via NC. Trach with PMV in place. Oxygen via T-piece at night to rest patient. Speaking clearly. Tolerating regular diet. She indicates she is working with PT, unable to sit up independently and not able to ambulate. She still feels very weak, but feels she is getting stronger slowly. Afebrile. Hypotensive this morning, seems to be intermittent. Metoprolol held with improvement. CBC stable. No new imaging. . Family/friend interactions Attempted discussion with patient regarding prolonged hospitalization, she is difficult to engage. She does not seem to remember much of her hospital course. We discussed health care proxy decision making, asked if she would like to complete written advanced directives, she does not want to complete at this time. She indicates she wants her daughter to serve as decision maker should she lose capacity which would be in accordance with [place] statutes as she and her significant other are not legally . I left a copy of Living Will in room should she elect to complete after speaking with her daughter. She endorses desires for FULL CODE. . Advance Directives Living Will: Never completed Health Care Surrogate: Never completed Durable Power of Clockmaker Apprentice: Never completed Advance Directive Specifics Health Care Surrogate(s): No written advance directives, does not wish to complete today. Patient is currently capacitated to make her own health care decisions. According to [place] statutes, health care proxy decision-making falls to the patient's daughterLoree should she lose capacity again. Patient is not legally . . Significant change in goals: Attempted discussion with patient regarding prolonged hospitalization, she is difficult to engage. She does not seem to remember much of her hospital course. We discussed health care proxy decision making, asked if she would like to complete written advanced directives, she does not want to complete at this time. She indicates she wants her daughter to serve as decision maker should she lose capacity which would be in accordance with [place] statutes as she and her significant other are not legally . I left a copy of Living Will in room should she elect to complete after speaking with her daughter. She endorses desires for FULL CODE. . Objective Vital Signs Date Time Temp Pulse Resp B/P Pulse Ox O2 Delivery O2 Flow Rate FiO2 11/17/16 12:44 76 11/17/16 12:23 98.6 101 18 123/82 95 11/17/16 09:55 92 Nasal Cannula 2.00 11/17/16 08:32 97.4 84 18 115/76 96 11/17/16 04:00 98.0 85 20 92/45 98 11/17/16 00:00 98.3 83 20 116/66 98 11/16/16 23:53 89 11/16/16 21:45 96 Trach Collar 6.00 28 11/16/16 20:00 97.7 98 20 97/71 96 11/16/16 16:39 99.3 95 18 134/87 100 Intake & Output 11/17/16 11/17/16 07:00 19:00 Intake Total 720 ml Output Total 700 ml Balance 20 ml Intake Oral 720 ml Output Urine Total 700 ml # Bowel Movements 1 Physical Exam CONSTITUTIONAL/GENERAL: This is an adequately nourished patient, in no acute distress. TUBES/LINES/DRAINS: tracheostomy with PMV, oxygen via NC, PIV right FA, Miller, specialty bed. SKIN: warm and dry. ENT: No scleral icterus. Throat without exudate. Trach with PMV. CARDIOVASCULAR: RRR. RESPIRATORY/CHEST: trach, Symmetric, unlabored respirations. Breath sounds clear. GASTROINTESTINAL: Abdomen protuberant, soft, non-tender, nondistended. Bowel sounds active. GENITOURINARY: Without palpable bladder distension. Miller catheter in place. MUSCULOSKELETAL: Extremities with edema. No mottling or clubbing. NEUROLOGICAL: Awake and alert. Follows commands, moves all extremities. Generalized weakness. PSYCHIATRIC: calm. Flat affect. . Diagnostic Tests Laboratory Laboratory Tests Test 11/15/16 11/16/16 11/16/16 11/17/16 06:52 08:44 13:24 08:43 Prothrombin Time 26.1 SEC 23.4 SEC 22.2 SEC (9.8-11.6) (9.8-11.6) (9.8-11.6) Prothromb Time International 2.3 RATIO 2.1 RATIO 2.0 RATIO Ratio Activated Partial 41.4 SEC 38.5 SEC 36.2 SEC Thromboplast Time (24.3-30.1) (24.3-30.1) (24.3-30.1) White Blood Count 8.1 TH/MM3 7.6 TH/MM3 (4.0-11.0) (4.0-11.0) Red Blood Count 3.68 MIL/MM3 3.61 MIL/MM3 (4.00-5.30) (4.00-5.30) Hemoglobin 10.2 GM/DL 10.1 GM/DL (11.6-15.3) (11.6-15.3) Hematocrit 31.2 % 30.1 % (35.0-46.0) (35.0-46.0) Mean Corpuscular Volume 84.7 FL 83.4 FL (80.0-100.0) (80.0-100.0) Mean Corpuscular Hemoglobin 27.6 PG 28.1 PG (27.0-34.0) (27.0-34.0) Mean Corpuscular Hemoglobin 32.6 % 33.7 % Concent (32.0-36.0) (32.0-36.0) Red Cell Distribution Width 18.1 % 17.6 % (11.6-17.2) (11.6-17.2) Platelet Count 303 TH/MM3 302 TH/MM3 (150-450) (150-450) Mean Platelet Volume 6.9 FL 7.0 FL (7.0-11.0) (7.0-11.0) Sodium Level 139 MEQ/L (136-145) Potassium Level 4.2 MEQ/L (3.5-5.1) Chloride Level 103 MEQ/L (98-107) Carbon Dioxide Level 27.4 MEQ/L (21.0-32.0) Anion Gap 9 MEQ/L (5-15) Blood Urea Nitrogen 17 MG/DL (7-18) Creatinine 0.83 MG/DL (0.50-1.00) Estimat Glomerular Filtration 71 ML/MIN (>89) Rate Random Glucose 129 MG/DL (74-106) Calcium Level 10.3 MG/DL (8.5-10.1) Phosphorus Level 4.7 MG/DL (2.5-4.9) Magnesium Level 2.0 MG/DL (1.5-2.5) Result Diagram: 11/17/16 0843 11/16/16 1324 Microbiology -History of cultures: Blood cultures 08/28: NGTD C Diff negative 08/28. Lines changed 08/28. Sputum 08/30 - Pseudomonas Sputum 09/02 PSAE, resistant to carbapenem, intermediate to Levaquin. 09/07 - urine -Maribell Guilliermondii 09/07 - blood cultures 2 - no growth 09/09 - urine -strep viridans, Maribell parapsilosis 09/10 - blood cultures 2 -no growth 09/11 - broch washings -no growth to date 09/12 - urine -Maribell glabrata and parapsilosis 09/16 - blood cultures 2 - pending 09/16 - sputum -no growth 09/16 - urine -Maribell glabrata and parapsilosis 10/02 - blood cultures 2 - staph epi 10/02 - urine - ESBL positive Klebsiella 10/04 - blood cultures 2 -no growth 10/05 - blood cultures 2 -no growth 10/17 - blood cultures -no growth 10/17 - sputum -Klebsiella ESBL positive and Stenotrophomonas maltophilia 10/17 - urine -C glabrata 10/21/ 10/22 - urine - ESBL positive Klebsiella . Imaging Last Impressions Chest X-Ray 11/13/16 0600 Signed Impressions: Service Date/Time: Sunday, November 13, 2016 06:04 - CONCLUSION: 1. Stable right lower lobe linear airspace disease, likely atelectasis. 2. No interval change. Kel Stone MD Central Venous Line 10/20/16 0000 Signed Impressions: Service Date/Time: Thursday, October 20, 2016 00:00 - CONCLUSION: Uncomplicated Permcath removal. Didier Zhang MD Catheter Placement X-Ray 09/29/16 1223 Signed Impressions: Service Date/Time: Thursday, September 29, 2016 12:31 - CONCLUSION: Vas-Cath to PermCath exchange as detailed above. Taco Haas Jr., MD Renal Ultrasound 09/17/16 0000 Signed Impressions: Service Date/Time: Saturday, September 17, 2016 13:31 - CONCLUSION: Negative renal sonogram. Taco Davidson MD Upper Extremity Ultrasound 09/14/16 0000 Signed Impressions: Service Date/Time: August 08:32 - CONCLUSION: There is thrombus within the left subclavian and internal jugular veins. Danyel Escalante MD Lower Extremity Ultrasound 09/13/16 0000 Signed Impressions: Service Date/Time: Tuesday, September 13, 2016 22:33 - CONCLUSION: Normal examination. Leonides Mason MD Liver Ultrasound 09/08/16 0000 Signed Impressions: Service Date/Time: Thursday, September 08, 2016 08:45 - CONCLUSION: 1. Cholelithiasis with distended gallbladder. However, there are no associated findings present to diagnose acute cholecystitis. If there is persistent clinical concern for acute cholecystitis could evaluate for cystic duct obstruction with hepatobiliary scintigraphy. 2. Hepatomegaly with very heterogeneous echotexture and steatosis. Dejan Allison MD Gall Bladder Ultrasound 08/29/16 0000 Signed Impressions: Service Date/Time: Monday, August 29, 2016 15:21 - CONCLUSION: 1. Hepatomegaly with heterogeneous echotexture throughout the liver. 2. There is a large echogenic area near the neck of the gallbladder suggestive of a stone, but despite its large size, demonstrates no acoustic shadowing in any of the views. Taco Davidson MD CT Angiography 08/15/16 0000 Signed Impressions: Service Date/Time: Monday, August 15, 2016 02:33 - CONCLUSION: 1. No evidence for pulmonary embolism. 2. Multifocal consolidation greatest in the right lower lobe and associated adenopathy. Terry Estrada MD . Procedures * 09/15/2016 bronchoscopy * 09/11/2016 bronchoscopy * 09/10/2016 left IJ central venous line * 09/01/16 PEG tube placed * 08/28/16 left subclavian central line placed * 08/18/16 right arterial line placed * 08/18/16 right IJ central line placed * 08/14/16 intubation . Assessment and Plan Disease Oriented Problem List: (1) ARDS (adult respiratory distress syndrome) (2) acute hypercapneic and hypoxemic respiratory failure (3) HCAP (healthcare-associated pneumonia) (4) CHF (congestive heart failure) (5) Morbid obesity (6) Hypothyroidism (7) Dyslipidemia Symptom Scale: (1) Pain 0-10 Scale: 0 Comment: denies pain today. . (2) Dyspnea 0-10 Scale: 0 Comment: denies. . (3) Weakness 0-10 Scale: Unable to quantify Comment: due to prolonged hospitalization and debility. Continue PT. Pertinent Non-Medical Issues Psychosocial: single, significant other, not legally . Has one daughter. Spiritual: [employer]. Legal: No written advance directives, does not wish to complete today. Patient is currently capacitated to make her own health care decisions. According to [place] statutes, health care proxy decision-making falls to the patient's daughterLoree should she lose capacity again. Patient is not legally . Ethical issues impacting care: no known concerns at this time. . Important Contacts * Loree Marinelli, daughter (HCP): [phone] * Rony Marinelli, significant other: [phone] . Prognosis Patient with prolonged hospital course after pneumonia complicated by worsening COPD, with general weakness and debility. She remains high risk for further setbacks or decline. . Code Status: Full Code Plan * No written advance directives, does not wish to complete today. Patient is currently capacitated to make her own health care decisions. According to [place] statutes, health care proxy decision-making falls to the patient's daughterLoree should she lose capacity again. Patient is not legally . * FULL CODE. * 11/17/16 - Attempted discussion with patient regarding prolonged hospitalization, she is difficult to engage. She does not seem to remember much of her hospital course. We discussed health care proxy decision making, asked if she would like to complete written advanced directives, she does not want to complete at this time. She indicates she wants her daughter to serve as decision maker should she lose capacity which would be in accordance with [place] statutes as she and her significant other are not legally . I left a copy of Living Will in room should she elect to complete after speaking with her daughter. She endorses desires for FULL CODE. * SYMPTOMS: dyspnea: on oxygen vis t-piece. Pain: secondary to pneumonia, prolonged hospital/ICU stay and bedbound status. No new medication recommendations at this time. * Palliative care will continue to follow to assist with symptom management and further clarification of treatment goals as needed. . Time Spent Total Floor Time (mins): 45 Face to Face Time (mins): 30 >50% Counseling/Coord of Care: Yes Attestation To help prompt me to consider important information that might be impacting today's encounter and assessment, information from prior notes written by myself or my colleagues may have been "brought forward" into today's note. My signature on this note, however, is an attestation that I personally performed the exam, history, and/or decision-making noted today, and, unless otherwise indicated, the interactions with patient, family, and staff as well as the review of records all occurred today. I also attest that the listed assessment and stated plan reflect my best clinical judgment today based on the combination of historical information, prior notes, and today's exam/ interactions. When time spent is documented, it refers only to time spent today by the signer, or if indicated, combined time spent today by collaborating physician/nurse practitioner. RUMA COOPER Nov 17, 2016 13:58
[2016-11-17] MEDS: WARFARIN SOD 6 MG TAB PO SCH (15:36)
[2016-11-17] MEDS: ACETAMINOPHEN 325 MG TAB PO PRN (15:36)
--- NOTE | 2016-11-17 20:19 | HHI.PR ---
Subjective Remarks Trach capped. and on N/C 3L Doing well . Was up in chair. Able to take her diet. Objective Vital Signs Date Time Temp Pulse Resp B/P Pulse Ox O2 Delivery O2 Flow Rate FiO2 11/17/16 15:53 95.6 110 18 128/85 96 11/17/16 12:44 76 11/17/16 12:23 98.6 101 18 123/82 95 11/17/16 09:55 92 Nasal Cannula 2.00 11/17/16 08:32 97.4 84 18 115/76 96 11/17/16 04:00 98.0 85 20 92/45 98 11/17/16 00:00 98.3 83 20 116/66 98 11/16/16 23:53 89 11/16/16 21:45 96 Trach Collar 6.00 28 I/O 11/16/16 11/16/16 11/16/16 11/17/16 11/17/16 11/17/16 07:00 15:00 23:00 07:00 15:00 23:00 Intake Total 120 ml 1200 ml 120 ml Output Total 400 ml 1150 ml 300 ml 825 ml Balance -280 ml 50 ml -180 ml -825 ml Intake Oral 120 ml 1200 ml 120 ml Output Urine Total 400 ml 1150 ml 300 ml 825 ml # Bowel Movements 0 3 0 2 Result Diagram: 11/17/16 0843 11/16/16 1324 Objective Remarks This is an obese middle-aged white female who is alert HEENT: Head normocephalic.throat clear. Neck: No bruits, no thyroid enlargement, no lymphadenopathy. Chest: Decreased breath sounds. Heart: Heart sounds were regular. S1-S2 no murmur, no S3. Abdomen: Soft, benign. No masses, or tenderness. Bowel sounds are active. Extremities:No edema . Neuro :Moves all limbs.no deficits. Alert and Oriented Assessment and Plan Assessment and Plan IMPRESSION 1. Acute hypercapnic respiratory failure.Resolving 2. Pulmonary edema. 3. Drug rash 4. Obstructive sleep apnea syndrome 5. Hypertension 6. Hypothyroidism. 7. MIKE Plan : 1. Cap trach daytime for 10 hrs 2. Trach suctioning prn. 3. Nebs qid , duoneb. 4. Rehab placement 5. Use PM valve to talk. 6. CPAP at HS if she desats <92 7. Tube feeds at 60 CC 8. O2 N/C 2 L daytime 9. Up in chair daily. Abimael Beck MD Nov 17, 2016 20:19
[2016-11-17] MEDS: PRAVASTATIN SOD 20 MG TAB PO SCH (21:58)
[2016-11-17] MEDS: MELATONIN 5 MG TAB PO SCH (21:58)
[2016-11-17] MEDS: MORPHINE SULFATE 4 MG/ML INJ IV PRN (21:59)
[2016-11-18] VITALS (8 sets, daily range): BP systolic 103–127; BP diastolic 60–99; PULSE 78–99; RESP 18–24; TEMP 96.1–98.8; O2SAT 94–100
[2016-11-18] MEDS: CHLORHEXIDINE GLUCONATE 2 % 1 PACK (2 CLOTHS) TOP SCH (02:12)
[2016-11-18] MEDS: LEVOTHYROXINE SODIUM 200 MCG TAB PO SCH (05:11)
[2016-11-18] MEDS: QUEtiapine FUMARATE 25 MG TAB PO SCH ×3 (05:12→21:36)
[2016-11-18] MEDS: METOPROLOL TARTRATE 25 MG TAB PO SCH ×3 (05:17→21:37)
[2016-11-18] MEDS: EUCERIN CREAM 120 GM JAR TOPICAL SCH ×2 (09:00→21:00)
[2016-11-18] MEDS: BENEPROTEIN POWDER 1 PACK G-TUBE SCH ×3 (09:00→18:00)
[2016-11-18] MEDS: SODIUM CHLORIDE 0.9% FLUSH 10 ML FLUSH IVF SCH (09:00)
[2016-11-18] MEDS: FAMOTIDINE 20 MG TAB PO SCH ×2 (10:02→21:36)
[2016-11-18] MEDS: DOCUSATE SODIUM 50 MG/SENNA 8.6 MG TAB PO SCH ×2 (10:02→21:00)
[2016-11-18] MEDS: ARTIFICIAL TEARS OPTH SOLN 15 ML BTL EACH EYE SCH ×3 (10:03→18:00)
[2016-11-18 11:49] LABS: INTERNATIONAL NORMALIZED RATIO 2.2 RATIO; PROTHROMBIN TIME - PATIENT 24.6 SEC (9.8-11.6)
--- NOTE | 2016-11-18 13:16 | HHI.PR ---
Subjective Remarks Follow up on patient with acute on chronic respiratory failure s/p tracheostomy. Patient seen and examined today. Lying comfortably in bed in no apparent distress. Patient denies any new acute events overnight. Yesterday she stated she stood with PT, motivated to continue with therapy. Tolerating several hours of capping trach yesterday. Positive BM. Objective Vitals Vital Signs Date Time Temp Pulse Resp B/P Pulse Ox O2 Delivery O2 Flow Rate FiO2 11/18/16 12:06 97.3 84 19 105/63 99 11/18/16 10:20 100 Nasal Cannula 4.00 11/18/16 08:36 97.0 99 18 103/60 96 11/18/16 04:00 97.8 83 20 127/81 94 11/18/16 00:00 98.8 78 24 119/66 98 11/17/16 22:35 94 Trach Collar 28 11/17/16 15:53 95.6 110 18 128/85 96 I/O 11/17/16 11/17/16 11/17/16 11/18/16 11/18/16 11/18/16 07:00 15:00 23:00 07:00 15:00 23:00 Intake Total 120 ml Output Total 300 ml 825 ml 250 ml Balance -180 ml -825 ml -250 ml Intake Oral 120 ml Output Urine Total 300 ml 825 ml 250 ml # Bowel Movements 0 2 Result Diagram: 11/17/16 0843 11/16/16 1324 Imaging Last Impressions Chest X-Ray 11/13/16 0600 Signed Impressions: Service Date/Time: Sunday, November 13, 2016 06:04 - CONCLUSION: 1. Stable right lower lobe linear airspace disease, likely atelectasis. 2. No interval change. Kel Stone MD Central Venous Line 10/20/16 0000 Signed Impressions: Service Date/Time: Thursday, October 20, 2016 00:00 - CONCLUSION: Uncomplicated Permcath removal. Didier Zhang MD Catheter Placement X-Ray 09/29/16 1223 Signed Impressions: Service Date/Time: Thursday, September 29, 2016 12:31 - CONCLUSION: Vas-Cath to PermCath exchange as detailed above. Taco Haas Jr., MD Renal Ultrasound 09/17/16 0000 Signed Impressions: Service Date/Time: Saturday, September 17, 2016 13:31 - CONCLUSION: Negative renal sonogram. Taco Davidson MD Upper Extremity Ultrasound 09/14/16 0000 Signed Impressions: Service Date/Time: August 08:32 - CONCLUSION: There is thrombus within the left subclavian and internal jugular veins. Danyel Escalante MD Lower Extremity Ultrasound 09/13/16 0000 Signed Impressions: Service Date/Time: Tuesday, September 13, 2016 22:33 - CONCLUSION: Normal examination. Leonides Mason MD Liver Ultrasound 09/08/16 0000 Signed Impressions: Service Date/Time: Thursday, September 08, 2016 08:45 - CONCLUSION: 1. Cholelithiasis with distended gallbladder. However, there are no associated findings present to diagnose acute cholecystitis. If there is persistent clinical concern for acute cholecystitis could evaluate for cystic duct obstruction with hepatobiliary scintigraphy. 2. Hepatomegaly with very heterogeneous echotexture and steatosis. Dejan Allison MD Gall Bladder Ultrasound 08/29/16 0000 Signed Impressions: Service Date/Time: Monday, August 29, 2016 15:21 - CONCLUSION: 1. Hepatomegaly with heterogeneous echotexture throughout the liver. 2. There is a large echogenic area near the neck of the gallbladder suggestive of a stone, but despite its large size, demonstrates no acoustic shadowing in any of the views. Taco Davidson MD CT Angiography 08/15/16 0000 Signed Impressions: Service Date/Time: Monday, August 15, 2016 02:33 - CONCLUSION: 1. No evidence for pulmonary embolism. 2. Multifocal consolidation greatest in the right lower lobe and associated adenopathy. Terry Estrada MD Objective Remarks GENERAL: Well-nourished, well-developed patient in NAD. s/p tracheostomy. t- collar in place. Lying in hospital bed. Awake and alert. Following commands. SKIN: Warm and dry. No rash. HEENT: Normocephalic. Atraumatic. CARDIOVASCULAR: Regular rate and rhythm. S1, S2 noted. No murmur appreciated. RESPIRATORY: Trach collar in place. No accessory muscle use. Clear to auscultation. Breath sounds equal bilaterally. GASTROINTESTINAL: Abdomen soft, non-tender, nondistended. Normoactive bowel sounds x4. MUSCULOSKELETAL: No obvious deformities. Extremities without clubbing, cyanosis , or edema. NEUROLOGICAL: Awake and alert. Able to move all extremities. Left upper extremity weakness noted, 3/5. Right upper extremity 5/5. No focal neurologic findings appreciated. Procedures 09/15/2016 bronchoscopy 09/11/2016 bronchoscopy 09/10/2016 left IJ central venous line 08/28/2016 subclavian 7 [place] triple-lumen catheter left-sided. 08/18/2016 right arterial line 08/18/2016 right IJ central line Urinary Catheter: Yes Assessment to: Continue Miller insert reason: Prolonged Immobilization Date of Insertion: October 21, 2016 A/P Assessment and Plan 56-year-old female admitted with respiratory failure and pneumonia, now with chronic tracheostomy and chronic respiratory failure. Acute toxic metabolic encephalopathy Critical care myopathy Agitated delirium -Resolved -Seroquel 75 mg every 8 hours for agitation -Melatonin 5mg po qHS for insomnia -Acetaminophen for fever/pain Acute on chronic hypercapnic and hypoxemic respiratory failure Pneumonia community-acquired, now with HCAP with carbapenem-resistant pseudomonas and ESBL Klebsiella VAP. 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 -Continue CPAP at night if sats drop <92% -Pulmonary toileEvert brown -Pulmonology following, appreciate input. Hypertension Dyslipidemia - BP controlled today. Will continue Metoprolol, notice hold parameters. -Continue pravastatin. Acute kidney injury - requiring hemodialysis -Follow I's and O's -Nephrology following -Dialysis presently on hold -creatinine much improved. Previously 4.11, now 0.83 Elevated transaminases, resolved. Cholelithiasis -Follow clinically Pseudomonas pneumonia Funguria, Maribell glabrata and parapsilosis. -Colistin nebs stop date 11/14/2016 -Pulm following -History of cultures: Blood cultures 08/28: NGTD C Diff negative 08/28. Lines changed 08/28. Sputum 08/30 - Pseudomonas Sputum 09/02 PSAE, resistant to carbapenem, intermediate to Levaquin. 09/07 - urine -Maribell Guilliermondii 09/07 - blood cultures 2 - no growth 09/09 - urine -strep viridans, Maribell parapsilosis 09/10 - blood cultures 2 -no growth 09/11 - broch washings -no growth to date 09/12 - urine -Maribell glabrata and parapsilosis 09/16 - blood cultures 2 - pending 09/16 - sputum -no growth 09/16 - urine -Maribell glabrata and parapsilosis 10/02 - blood cultures 2 - staph epi 10/02 - urine - ESBL positive Klebsiella 10/04 - blood cultures 2 -no growth 10/05 - blood cultures 2 -no growth 10/17 - blood cultures -no growth 10/17 - sputum -Klebsiella ESBL positive and Stenotrophomonas maltophilia 10/17 - urine -C glabrata 10/21/ 10/22 - urine - ESBL positive Klebsiella Left IJ/subclavian nonocclusive thrombus 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 Pharmacy consult for monitoring. -Continue to follow INR. Hypothyroidism -Synthroid 200mcg daily GI prophylaxis -Protonix 40mg Q12 DVT prophylaxis -Coumadin Full code. Nikki Martin Nov 18, 2016 13:16
[2016-11-18] MEDS: WARFARIN SOD 6 MG TAB PO SCH (19:28)
[2016-11-18] MEDS: MORPHINE SULFATE 4 MG/ML INJ IV PRN (21:35)
[2016-11-18] MEDS: MELATONIN 5 MG TAB PO SCH (21:36)
[2016-11-18] MEDS: PRAVASTATIN SOD 20 MG TAB PO SCH (21:36)
[2016-11-19] VITALS (10 sets, daily range): BP systolic 108–137; BP diastolic 59–84; PULSE 73–106; RESP 18–20; TEMP 96.4–98.2; O2SAT 92–100
[2016-11-19] MEDS: CHLORHEXIDINE GLUCONATE 2 % 1 PACK (2 CLOTHS) TOP SCH (04:00)
[2016-11-19] MEDS: QUEtiapine FUMARATE 25 MG TAB PO SCH ×3 (05:42→22:25)
[2016-11-19] MEDS: METOPROLOL TARTRATE 25 MG TAB PO SCH ×3 (05:42→22:00)
[2016-11-19] MEDS: LEVOTHYROXINE SODIUM 200 MCG TAB PO SCH (05:42)
[2016-11-19 08:08] LABS: HEMATOCRIT 29.6 % (35.0-46.0); MEAN CELL VOLUME 83.5 FL (80.0-100.0); MEAN CORPUSCULAR HEMOGLOBIN 27.7 PG (27.0-34.0); MEAN CORPUSCULAR HGB CONC 33.1 % (32.0-36.0); PLATELET COUNT 290 TH/MM3 (150-450); RED BLOOD COUNT 3.54 MIL/MM3 (4.00-5.30); RED CELL DISTRIBUTION WIDTH 17.4 % (11.6-17.2); REVIEW FLAG FINAL; WHITE BLOOD COUNT 7.4 TH/MM3 (4.0-11.0)
[2016-11-19 08:12] LABS: APTT (PATIENT) 36.4 SEC (24.3-30.1); INTERNATIONAL NORMALIZED RATIO 2.1 RATIO; PROTHROMBIN TIME - PATIENT 23.8 SEC (9.8-11.6)
[2016-11-19] MEDS: EUCERIN CREAM 120 GM JAR TOPICAL SCH ×2 (09:00→21:00)
[2016-11-19] MEDS: BENEPROTEIN POWDER 1 PACK G-TUBE SCH ×3 (09:00→18:00)
[2016-11-19] MEDS: ARTIFICIAL TEARS OPTH SOLN 15 ML BTL EACH EYE SCH ×3 (09:55→18:00)
[2016-11-19] MEDS: SODIUM CHLORIDE 0.9% FLUSH 10 ML FLUSH IVF SCH (09:55)
[2016-11-19] MEDS: DOCUSATE SODIUM 50 MG/SENNA 8.6 MG TAB PO SCH ×2 (09:56→21:00)
[2016-11-19] MEDS: FAMOTIDINE 20 MG TAB PO SCH ×2 (09:56→22:25)
--- NOTE | 2016-11-19 11:35 | HHI.PR ---
Subjective Remarks Follow up on patient with acute on chronic respiratory failure s/p tracheostomy. Patient seen and examined, lying in bed comfortably. Trach is capped. Denies any new acute complaints. Tolerating PO intake. Afebrile. BM today. Objective Vitals Vital Signs Date Time Temp Pulse Resp B/P Pulse Ox O2 Delivery O2 Flow Rate FiO2 11/19/16 09:23 96 Nasal Cannula 4.00 11/19/16 08:14 97.2 73 18 113/59 100 11/19/16 05:44 97.8 11/19/16 04:10 77 20 115/62 99 11/19/16 04:00 96.8 79 18 115/62 92 11/19/16 00:00 96.9 86 20 108/64 95 11/18/16 20:00 96.4 85 18 107/73 99 11/18/16 17:32 96 Nasal Cannula 4.00 11/18/16 16:25 96.1 96 18 111/72 96 11/18/16 12:06 97.3 84 19 105/63 99 I/O 11/18/16 11/18/16 11/18/16 11/19/16 11/19/16 11/19/16 07:00 15:00 23:00 07:00 15:00 23:00 Output Total 250 ml 2351 ml 350 ml Balance -250 ml -2351 ml -350 ml Output Urine Total 250 ml 2350 ml 350 ml Stool Total 1 ml Result Diagram: 11/19/16 0744 11/16/16 1324 Imaging Last Impressions Chest X-Ray 11/13/16 0600 Signed Impressions: Service Date/Time: Sunday, November 13, 2016 06:04 - CONCLUSION: 1. Stable right lower lobe linear airspace disease, likely atelectasis. 2. No interval change. Kel Stone MD Central Venous Line 10/20/16 0000 Signed Impressions: Service Date/Time: Thursday, October 20, 2016 00:00 - CONCLUSION: Uncomplicated Permcath removal. Didier Zhang MD Catheter Placement X-Ray 09/29/16 1223 Signed Impressions: Service Date/Time: Thursday, September 29, 2016 12:31 - CONCLUSION: Vas-Cath to PermCath exchange as detailed above. Taco Haas Jr., MD Renal Ultrasound 09/17/16 Signed Impressions: Service Date/Time: Saturday, September 17, 2016 13:31 - CONCLUSION: Negative renal sonogram. Taco Davidson MD Upper Extremity Ultrasound 09/14/16 0000 Signed Impressions: Service Date/Time: August 08:32 - CONCLUSION: There is thrombus within the left subclavian and internal jugular veins. Danyel Escalante MD Lower Extremity Ultrasound 09/13/16 Signed Impressions: Service Date/Time: Tuesday, September 13, 2016 22:33 - CONCLUSION: Normal examination. Leonides Mason MD Liver Ultrasound 09/08/16 Signed Impressions: Service Date/Time: Thursday, September 08, 2016 08:45 - CONCLUSION: 1. Cholelithiasis with distended gallbladder. However, there are no associated findings present to diagnose acute cholecystitis. If there is persistent clinical concern for acute cholecystitis could evaluate for cystic duct obstruction with hepatobiliary scintigraphy. 2. Hepatomegaly with very heterogeneous echotexture and steatosis. Dejan Allison MD Gall Bladder Ultrasound 08/29/16 Signed Impressions: Service Date/Time: Monday, August 29, 2016 15:21 - CONCLUSION: 1. Hepatomegaly with heterogeneous echotexture throughout the liver. 2. There is a large echogenic area near the neck of the gallbladder suggestive of a stone, but despite its large size, demonstrates no acoustic shadowing in any of the views. Taco Davidson MD CT Angiography 08/15/16 Signed Impressions: Service Date/Time: Monday, August 15, 2016 02:33 - CONCLUSION: 1. No evidence for pulmonary embolism. 2. Multifocal consolidation greatest in the right lower lobe and associated adenopathy. Terry Estrada MD Objective Remarks GENERAL: Well-nourished, well-developed patient in NAD. s/p tracheostomy. Trach capped. Lying in hospital bed. Awake and alert. Following commands. SKIN: Warm and dry. No rash. HEENT: Normocephalic. Atraumatic. CARDIOVASCULAR: Regular rate and rhythm. S1, S2 noted. No murmur appreciated. RESPIRATORY: Trach collar in place. No accessory muscle use. Clear to auscultation. Breath sounds equal bilaterally. GASTROINTESTINAL: Abdomen soft, non-tender, nondistended. Normoactive bowel sounds x4. MUSCULOSKELETAL: No obvious deformities. Extremities without clubbing, cyanosis , or edema. NEUROLOGICAL: Awake and alert. Able to move all extremities. Left upper extremity weakness noted, 3/5. Right upper extremity 5/5. No focal neurologic findings appreciated. Procedures 09/15/2016 bronchoscopy 09/11/2016 bronchoscopy 09/10/2016 left IJ central venous line 08/28/2016 subclavian 7 Sami triple-lumen catheter left-sided. 08/18/2016 right arterial line 08/18/2016 right IJ central line Date of Insertion: October 21, 2016 A/P Assessment and Plan 56-year-old female admitted with respiratory failure and pneumonia, now with chronic tracheostomy and chronic respiratory failure. Acute toxic metabolic encephalopathy Critical care myopathy Agitated delirium -Resolved -Seroquel 75 mg every 8 hours for agitation -Melatonin 5mg po qHS for insomnia -Acetaminophen for fever/pain Acute on chronic hypercapnic and hypoxemic respiratory failure Pneumonia community-acquired, now with HCAP with carbapenem-resistant pseudomonas and ESBL Klebsiella VAP. 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 -Continue CPAP at night if sats drop <92% -Pulmonary tobudtEvert -Pulmonology following, appreciate input. Hypertension Dyslipidemia - BP controlled today. Will continue Metoprolol, notice hold parameters. -Continue pravastatin. Acute kidney injury - requiring hemodialysis -Follow I's and O's -Nephrology following -Dialysis presently on hold -creatinine much improved. Previously 4.11, now 0.83 Elevated transaminases, resolved. Cholelithiasis -Follow clinically Pseudomonas pneumonia Funguria, Maribell glabrata and parapsilosis. -Colistin nebs stop date 11/14/2016 -Pulm following -History of cultures: Blood cultures 08/28: NGTD C Diff negative 08/28. Lines changed 08/28. Sputum 08/30 - Pseudomonas Sputum 09/02 PSAE, resistant to carbapenem, intermediate to Levaquin. 09/07 - urine -Maribell Guilliermondii 09/07 - blood cultures 2 - no growth 09/09 - urine -strep viridans, Maribell parapsilosis 09/10 - blood cultures 2 -no growth 09/11 - broch washings -no growth to date 09/12 - urine -Maribell glabrata and parapsilosis 09/16 - blood cultures 2 - pending 09/16 - sputum -no growth 09/16 - urine -Maribell glabrata and parapsilosis 10/02 - blood cultures 2 - staph epi 10/02 - urine - ESBL positive Klebsiella 10/04 - blood cultures 2 -no growth 10/05 - blood cultures 2 -no growth 10/17 - blood cultures -no growth 10/17 - sputum -Klebsiella ESBL positive and Stenotrophomonas maltophilia 10/17 - urine -C glabrata 10/21/ 10/22 - urine - ESBL positive Klebsiella Left IJ/subclavian nonocclusive thrombus 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 Pharmacy consult for monitoring. -Continue to follow INR. Hypothyroidism, chronic: Synthroid 200mcg daily GI prophylaxis: Protonix 40mg Q12 DVT prophylaxis: Coumadin Full code. Nikki Martin Nov 19, 2016 11:35
[2016-11-19] MEDS: WARFARIN SOD 6 MG TAB PO SCH (14:56)
[2016-11-19] MEDS: MORPHINE SULFATE 4 MG/ML INJ IV PRN (22:25)
[2016-11-19] MEDS: MELATONIN 5 MG TAB PO SCH (22:26)
[2016-11-19] MEDS: PRAVASTATIN SOD 20 MG TAB PO SCH (22:26)
[2016-11-20] VITALS (9 sets, daily range): BP systolic 112–142; BP diastolic 63–91; PULSE 77–103; RESP 18–21; TEMP 96.8–98.5; O2SAT 95–98
[2016-11-20] MEDS: CHLORHEXIDINE GLUCONATE 2 % 1 PACK (2 CLOTHS) TOP SCH (04:00)
[2016-11-20] MEDS: LEVOTHYROXINE SODIUM 200 MCG TAB PO SCH (05:20)
[2016-11-20] MEDS: QUEtiapine FUMARATE 25 MG TAB PO SCH ×3 (05:20→21:29)
[2016-11-20] MEDS: METOPROLOL TARTRATE 25 MG TAB PO SCH ×3 (05:21→21:29)
[2016-11-20] MEDS: FAMOTIDINE 20 MG TAB PO SCH ×2 (08:08→21:28)
[2016-11-20] MEDS: ARTIFICIAL TEARS OPTH SOLN 15 ML BTL EACH EYE SCH ×3 (08:09→16:11)
[2016-11-20] MEDS: SODIUM CHLORIDE 0.9% FLUSH 10 ML FLUSH IVF SCH (08:09)
[2016-11-20] MEDS: DOCUSATE SODIUM 50 MG/SENNA 8.6 MG TAB PO SCH ×2 (08:09→21:29)
[2016-11-20] MEDS: EUCERIN CREAM 120 GM JAR TOPICAL SCH ×2 (08:09→21:32)
[2016-11-20] MEDS: BENEPROTEIN POWDER 1 PACK G-TUBE SCH ×3 (08:09→16:11)
[2016-11-20 14:01] LABS: HEMATOCRIT 34.6 % (35.0-46.0); MEAN CELL VOLUME 85.2 FL (80.0-100.0); MEAN CORPUSCULAR HEMOGLOBIN 26.9 PG (27.0-34.0); MEAN CORPUSCULAR HGB CONC 31.6 % (32.0-36.0); PLATELET COUNT 322 TH/MM3 (150-450); RED BLOOD COUNT 4.06 MIL/MM3 (4.00-5.30); RED CELL DISTRIBUTION WIDTH 17.6 % (11.6-17.2); REVIEW FLAG FINAL; WHITE BLOOD COUNT 11.8 TH/MM3 (4.0-11.0)
[2016-11-20 14:05] LABS: APTT (PATIENT) 38.7 SEC (24.3-30.1); INTERNATIONAL NORMALIZED RATIO 2.2 RATIO; PROTHROMBIN TIME - PATIENT 24.6 SEC (9.8-11.6)
--- NOTE | 2016-11-20 14:57 | PD.WCN.NOT ---
Wound Consult Description: Right lateral malleolus Communicated with: VINCENT Bledsoe Call placed through call center for SCOOTER Coyle Recommendation: Cleanse right lateral malleolus with NS and gauze. Apply Optifoam gentle every 3 -5 days. (Available via mistogram only) Float heel and ankle off mattress surface by placing pillow underneath calf while in bed. 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 Recommended at that time to apply Cavilon skin prep BID and PRN to right malleolus to keep the then dry intact eschar dry and intact. Patient states that no one has been doing this and the wound has since opened and is painful. Wound was cleansed today with NS and gauze. Wound on right malleolus measures 1.5cm x 1.2cm x 0.4cm with fascia noted to moist wound bed with minimal clear exudate noted when cleansed. Periwound is unremarkable and was skin prepped using Cavilon barrier film, and wound was covered with a dry cover until optifoam gentle could be obtained from [facility], which was available by mistogram only. Recommend to cleanse wound with NS and gauze, apply optifoam gentle every 3-5 days unless saturated or dislodged. Recommend to keep this area free of pressure while in bed by placing a pillow under the calf to float ankle and foot. Abigail [facility]ae [facility] Nov 20, 2016 14:57
[2016-11-20] MEDS: WARFARIN SOD 6 MG TAB PO SCH (15:27)
--- NOTE | 2016-11-20 17:39 | HHI.PR ---
Subjective Remarks Follow up on patient with acute on chronic respiratory failure s/p tracheostomy. Patient seen and examined, lying a bed comfortably. At first she was asleep, yet easily wakened. Noted she continues to have left hand pain; warm compress has not been applied. No other complaints noted or reported by patient. Per RN (Anne Marie) pt with wound on right lateral ankle, inquired about wound care consult. pt denied fever, cough, shortness of breath, NVD. RN noted no new acute complaints over night or since start of shift. Objective Vitals Vital Signs Date Time Temp Pulse Resp B/P Pulse Ox O2 Delivery O2 Flow Rate FiO2 11/20/16 16:14 96.8 103 20 112/77 95 11/20/16 12:05 98.0 90 21 115/82 95 11/20/16 10:00 98 Nasal Cannula 4.00 11/20/16 08:00 98.1 77 21 113/63 96 11/20/16 05:00 96.9 83 20 123/70 97 11/20/16 04:00 97.3 84 18 114/64 95 11/20/16 00:00 98.5 78 18 140/76 98 11/19/16 20:00 97.0 106 18 137/84 95 11/19/16 18:10 96 Nasal Cannula 4.00 I/O 11/19/16 11/19/16 11/19/16 11/20/16 11/20/16 11/20/16 07:00 15:00 23:00 07:00 15:00 23:00 Intake Total 940 ml 200 ml 480 ml Output Total 350 ml 1550 ml 700 ml 575 ml Balance -350 ml -610 ml -500 ml -95 ml Intake Oral 940 ml 200 ml 480 ml Output Urine Total 350 ml 1550 ml 700 ml 575 ml # Bowel Movements 1 1 Result Diagram: 11/20/16 1340 11/16/16 1324 Imaging Last Impressions Chest X-Ray 11/13/16 0600 Signed Impressions: Service Date/Time: Sunday, November 13, 2016 06:04 - CONCLUSION: 1. Stable right lower lobe linear airspace disease, likely atelectasis. 2. No interval change. Kel Stone MD Central Venous Line 10/20/16 0000 Signed Impressions: Service Date/Time: Thursday, October 20, 2016 00:00 - CONCLUSION: Uncomplicated Permcath removal. Didier Zhang MD Catheter Placement X-Ray 09/29/16 1223 Signed Impressions: Service Date/Time: Thursday, September 29, 2016 12:31 - CONCLUSION: Vas-Cath to PermCath exchange as detailed above. Taco Haas Jr., MD Renal Ultrasound 09/17/16 0000 Signed Impressions: Service Date/Time: Saturday, September 17, 2016 13:31 - CONCLUSION: Negative renal sonogram. Taco Davidson MD Upper Extremity Ultrasound 09/14/16 0000 Signed Impressions: Service Date/Time: August 08:32 - CONCLUSION: There is thrombus within the left subclavian and internal jugular veins. Danyel Escalante MD Lower Extremity Ultrasound 09/13/16 0000 Signed Impressions: Service Date/Time: Tuesday, September 13, 2016 22:33 - CONCLUSION: Normal examination. Leonides Mason MD Liver Ultrasound 09/08/16 0000 Signed Impressions: Service Date/Time: Thursday, September 08, 2016 08:45 - CONCLUSION: 1. Cholelithiasis with distended gallbladder. However, there are no associated findings present to diagnose acute cholecystitis. If there is persistent clinical concern for acute cholecystitis could evaluate for cystic duct obstruction with hepatobiliary scintigraphy. 2. Hepatomegaly with very heterogeneous echotexture and steatosis. Dejan Allison MD Gall Bladder Ultrasound 08/29/16 0000 Signed Impressions: Service Date/Time: Monday, August 29, 2016 15:21 - CONCLUSION: 1. Hepatomegaly with heterogeneous echotexture throughout the liver. 2. There is a large echogenic area near the neck of the gallbladder suggestive of a stone, but despite its large size, demonstrates no acoustic shadowing in any of the views. Taco Davidson MD CT Angiography 08/15/16 0000 Signed Impressions: Service Date/Time: Monday, August 15, 2016 02:33 - CONCLUSION: 1. No evidence for pulmonary embolism. 2. Multifocal consolidation greatest in the right lower lobe and associated adenopathy. Terry Estrada MD Objective Remarks GENERAL: Pt laying a bed, t-tube in place, NAD. SKIN: Warm and dry. Wound noted on right lateral malleolus. HEAD: Normocephalic. EYES: No scleral icterus. No injection or drainage. NECK: Supple, trachea midline T-tube in place. No lymphadenopathy. CARDIOVASCULAR: Regular rate and rhythm without murmurs, gallops, or rubs. RESPIRATORY: Breath sounds equal bilaterally,some rhonchi evident in right lung. No accessory muscle use. GASTROINTESTINAL: Abdomen soft, non-tender, nondistended. MUSCULOSKELETAL: No cyanosis, or edema. Left hand weakness present, relatively unchanged from previous visits. PSYCHIATRIC: Pt Alert and oriented, no overt signs of depression and/or anxiety. Procedures 09/15/2016 bronchoscopy 09/11/2016 bronchoscopy 09/10/2016 left IJ central venous line 08/28/2016 subclavian 7 Uzbek triple-lumen catheter left-sided. 08/18/2016 right arterial line 08/18/2016 right IJ central line Medications and IVs Current Medications Medications (Trade) Dose Ordered Sig/Josephine Route Start Time Stop Time Status Last Admin (Synthroid) 200 mcg DAILY@06 PO 08/15/16 06:00 11/20/16 05:20 (Pravachol) 20 mg HS PO 08/15/16 21:00 11/19/16 22:26 (Tylenol) 650 mg Q6H PRN PO 08/14/16 23:15 11/17/16 15:36 (Morphine Inj) 2 mg Q2H PRN IV 08/14/16 23:15 11/19/16 22:25 (Tears Naturale Opth Soln) 1 drop TID EACH EYE 08/15/16 09:00 11/19/16 18:00 (Zofran Inj) 4 mg Q6H PRN IV 08/14/16 23:15 Miscellaneous Information 1 Q361D XX 08/14/16 23:15 (Chlorhexidine 2% Cloth) 3 pack Taper DAILY@04 TOP 08/15/16 04:00 08/11/17 03:59 10/31/16 04:00 (Chlorhexidine 2% Cloth) 3 pack UNSCH PRN TOP 08/14/16 23:15 (Beneprotein Powder) 2 pack TID G-TUBE 08/15/16 09:00 11/20/16 08:09 (D50w (Vial) Inj) 25 ml UNSCH PRN IV PUSH 08/16/16 09:15 (NS Flush) DAILY IVF 09/11/16 09:00 11/20/16 08:09 (Mannitol Inj) 12.5 gm UNSCH PRN IV 09/20/16 10:30 10/05/16 09:40 (Albumin 25% Inj) 25 gm UNSCH PRN IV 09/20/16 10:30 10/10/16 10:10 (NS Flush) 5 ml UNSCH PRN IV FLUSH 09/20/16 10:30 09/21/16 13:24 (Heparin Inj) UNSCH PRN .XX 09/20/16 10:30 10/12/16 10:48 (Gentamicin (Dialysis) Inj) 20 mg UNSCH PRN IV 09/20/16 10:30 10/14/16 12:35 (Zofran Inj) 4 mg UNSCH PRN IV 09/20/16 10:30 (Tylenol) 650 mg UNSCH PRN PO 09/20/16 10:30 (Benadryl) 25 mg UNSCH PRN PO 09/20/16 10:30 11/01/16 05:05 (Nitrostat Sl) 0.4 mg UNSCH PRN SL 09/20/16 10:30 (Gelfoam 12 Mm/7 Mm Top) 1 foam UNSCH PRN TOP 09/20/16 10:30 (Eucerin Cream) 1 applic BID TOPICAL 09/27/16 21:00 11/20/16 08:09 (SEROquel) 75 mg Q8HR PO 09/28/16 14:00 11/20/16 14:20 (NS Flush) UNSCH PRN IVF 09/29/16 12:45 (Heparin Inj) UNSCH PRN IV FLUSH 09/29/16 12:45 (Melatonin) 5 mg HS PO 10/07/16 21:00 11/19/16 22:26 (Ativan Inj) 1 mg Q6H PRN IV PUSH 10/15/16 11:45 11/11/16 22:23 (Nitroglycerin 2% Oint) 2 inch Q6HR PRN TOPICAL 10/21/16 13:15 (Levsin Liq) 0.125 mg Q4H PRN PO 10/26/16 12:30 11/13/16 05:27 (Sharlene-Colace) 2 tab BID PO 11/09/16 13:00 11/19/16 09:56 (Milk Of Fritz Cook) 30 ml Q6H PRN PO 11/09/16 13:00 (Coumadin) 6 mg DAILY@16 PO 11/13/16 16:00 11/20/16 15:27 (Lopressor) 25 mg Q8HR PO 11/16/16 14:00 11/20/16 14:24 Famotidine 20 mg 20 mg BID PO 11/17/16 09:15 11/20/16 08:08 (Coumadin Consult Pharmacy) 0 ml @ 0 mls/hr UNSCH OTHER 11/18/16 09:30 Urinary Catheter: Yes Assessment to: Continue Miller insert reason: Prolonged Immobilization Date of Insertion: October 21, 2016 Vascular Central Line Catheter: No A/P Assessment and Plan 56-year-old female admitted with respiratory failure and pneumonia, now with chronic tracheostomy and chronic respiratory failure. Acute toxic metabolic encephalopathy Critical care myopathy Agitated delirium -Resolved -Seroquel 75 mg every 8 hours for agitation -Melatonin 5mg po qHS for insomnia -Acetaminophen for fever/pain Acute on chronic hypercapnic and hypoxemic respiratory failure Pneumonia community-acquired, now with HCAP with carbapenem-resistant pseudomonas and ESBL Klebsiella VAP. 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 -Colistin nebs stop date 11/09 -ID following follow cultures -History of cultures: Blood cultures 08/28: NGTD C Diff negative 08/28. Lines changed 08/28. Sputum 08/30 - Pseudomonas Sputum 09/02 PSAE, resistant to carbapenem, intermediate to Levaquin. 09/07 - urine -Maribell Guilliermondii 09/07 - blood cultures 2 - no growth 09/09 - urine -strep viridans, Maribell parapsilosis 09/10 - blood cultures 2 -no growth 09/11 - broch washings -no growth to date 09/12 - urine -Maribell glabrata and parapsilosis 09/16 - blood cultures 2 - pending 09/16 - sputum -no growth 09/16 - urine -Maribell glabrata and parapsilosis 10/02 - blood cultures 2 - staph epi 10/02 - urine - ESBL positive Klebsiella 10/04 - blood cultures 2 -no growth 10/05 - blood cultures 2 -no growth 10/17 - blood cultures -no growth 10/17 - sputum -Klebsiella ESBL positive and Stenotrophomonas maltophilia 10/17 - urine -C glabrata 10/21/ 10/22 - urine - ESBL positive Klebsiella Left IJ/subclavian nonocclusive thrombus 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 Initiated care with sharlene-colace 2 tabs BID and MOM 30 ml q 6 hrs -Pt with two bowel movements within past 24 hours. -Seemingly resolved as she has had 3 bowel movements in past 36 hours. GI prophylaxis -Protonix 40mg Q12 DVT prophylaxis -Coumadin Right lateral malleolus wound: -Wound care saw pt on 11/20/16 -Recommendations noted in report. - Lines: Peripheral IV. - Trach 09/15 - Right Permacath placed 09/29 Case discussed with pt, RN (Anne Marie) Wound care nurse (Abigail) and Dr. Zazueta. Discharge Planning Case management following [id number] facility is likely needed Contacts: Loree Marinelli, daughter (HCP): [phone] Rony Marinelli, significant other: [phone] Alessandro Coyle Jr. Nov 20, 2016 17:39
[2016-11-20] MEDS: MELATONIN 5 MG TAB PO SCH (21:28)
[2016-11-20] MEDS: PRAVASTATIN SOD 20 MG TAB PO SCH (21:29)
[2016-11-20] MEDS: MORPHINE SULFATE 4 MG/ML INJ IV PRN (21:30)
--- NOTE | 2016-11-20 21:41 | HHI.PR ---
Subjective Remarks Trach remains capped. and on N/C 3L Doing well . needs no suctioning. Was up in chair. Poor Appetite Objective Vital Signs Date Time Temp Pulse Resp B/P Pulse Ox O2 Delivery O2 Flow Rate FiO2 11/20/16 20:00 97.2 86 20 142/91 95 11/20/16 16:14 96.8 103 20 112/77 95 11/20/16 12:05 98.0 90 21 115/82 95 11/20/16 10:00 98 Nasal Cannula 4.00 11/20/16 08:00 98.1 77 21 113/63 96 11/20/16 05:00 96.9 83 20 123/70 97 11/20/16 04:00 97.3 84 18 114/64 95 11/20/16 00:00 98.5 78 18 140/76 98 I/O 11/19/16 11/19/16 11/19/16 11/20/16 11/20/16 11/20/16 07:00 15:00 23:00 07:00 15:00 23:00 Intake Total 940 ml 200 ml 480 ml Output Total 350 ml 1550 ml 700 ml 575 ml Balance -350 ml -610 ml -500 ml -95 ml Intake Oral 940 ml 200 ml 480 ml Output Urine Total 350 ml 1550 ml 700 ml 575 ml # Bowel Movements 1 1 Result Diagram: 11/20/16 1340 11/16/16 1324 Objective Remarks This is an obese middle-aged white female who is alert HEENT: Head normocephalic.throat clear. Neck: No bruits, no thyroid enlargement, no lymphadenopathy. Chest: Decreased breath sounds.Occ wheeze heard. Heart: Heart sounds were regular. S1-S2 no murmur, no S3. Abdomen: Soft, benign. No masses, or tenderness. Bowel sounds are active. Extremities:No edema . Neuro :Moves all limbs.no deficits. Alert and Oriented Assessment and Plan Assessment and Plan IMPRESSION 1. Acute hypercapnic respiratory failure.Resolving 2. Pulmonary edema. 3. Drug rash 4. Obstructive sleep apnea syndrome 5. Hypertension 6. Hypothyroidism. 7. MIKE Plan : 1. Cap trach daytime for 16 hrs 2. Trach suctioning prn. 3. Nebs qid , duoneb. 4. Rehab placement 5. Use PM valve to talk. 6. T Collar at night 35 % FIo2 7. Diet as tolerated 8. O2 N/C 4 L daytime 9. Up in chair daily. Abimael Beck MD Nov 20, 2016 21:41
[2016-11-21] VITALS (8 sets, daily range): BP systolic 104–132; BP diastolic 56–79; PULSE 71–94; RESP 16–20; TEMP 95.3–98.3; O2SAT 96–98
[2016-11-21] MEDS: CHLORHEXIDINE GLUCONATE 2 % 1 PACK (2 CLOTHS) TOP SCH (04:00)
[2016-11-21] MEDS: QUEtiapine FUMARATE 25 MG TAB PO SCH ×3 (06:00→22:14)
[2016-11-21] MEDS: METOPROLOL TARTRATE 25 MG TAB PO SCH ×3 (06:01→22:13)
[2016-11-21] MEDS: LEVOTHYROXINE SODIUM 200 MCG TAB PO SCH (06:01)
[2016-11-21] MEDS: FAMOTIDINE 20 MG TAB PO SCH ×2 (08:00→22:14)
[2016-11-21] MEDS: DOCUSATE SODIUM 50 MG/SENNA 8.6 MG TAB PO SCH ×2 (08:01→22:15)
[2016-11-21] MEDS: SODIUM CHLORIDE 0.9% FLUSH 10 ML FLUSH IVF SCH (08:01)
[2016-11-21] MEDS: ARTIFICIAL TEARS OPTH SOLN 15 ML BTL EACH EYE SCH ×3 (08:01→13:05)
[2016-11-21] MEDS: EUCERIN CREAM 120 GM JAR TOPICAL SCH ×2 (08:01→21:00)
[2016-11-21] MEDS: BENEPROTEIN POWDER 1 PACK G-TUBE SCH ×3 (08:01→13:05)
[2016-11-21 10:59] LABS: APTT (PATIENT) 37.7 SEC (24.3-30.1); INTERNATIONAL NORMALIZED RATIO 2.2 RATIO; PROTHROMBIN TIME - PATIENT 24.8 SEC (9.8-11.6)
--- NOTE | 2016-11-21 12:43 | HHI.PR ---
Subjective Remarks Follow up on patient with acute on chronic respiratory failure s/p tracheostomy. Pt spoke today as her trach has been capped. Pt was asked how her voiced sounded and she said "I sound like a frog." Patient seen and examined, lying a bed comfortably. Noted she continues to have left hand pain though she reports it to be infrequent. She said therapy is to "bring me a splint." Appetite is reported to be decreased because "I can't eat all that much now. I get full faster." No other complaints noted or reported by patient. Per RN (Ladi) pt is declining warm compress as hand pain is infrequent. Pt denied fever, cough, shortness of breath, NVD, sore throat, bloody urine or stool. RN noted no new acute complaints over night or since start of shift. Objective Vitals Vital Signs Date Time Temp Pulse Resp B/P Pulse Ox O2 Delivery O2 Flow Rate FiO2 11/21/16 08:21 95.9 71 20 108/63 98 11/21/16 07:44 97 Nasal Cannula 3.00 11/21/16 04:00 97.0 74 20 132/79 97 11/21/16 00:00 98.3 82 20 110/65 98 11/20/16 20:55 96 Trach Collar 5.00 28 11/20/16 20:00 97.2 86 20 142/91 95 11/20/16 16:14 96.8 103 20 112/77 95 I/O 11/20/16 11/20/16 11/20/16 11/21/16 11/21/16 11/21/16 07:00 15:00 23:00 07:00 15:00 23:00 Intake Total 200 ml 480 ml 240 ml Output Total 700 ml 575 ml 475 ml 200 ml Balance -500 ml -95 ml -235 ml -200 ml Intake Oral 200 ml 480 ml 240 ml Output Urine Total 700 ml 575 ml 475 ml 200 ml # Bowel Movements 1 0 Result Diagram: 11/20/16 1340 Objective Remarks GENERAL: Pt laying a bed, t-tube in place and capped, pt speaking, NAD. SKIN: Warm and dry. Wound noted on right lateral malleolus. HEAD: Normocephalic. EYES: No scleral icterus. No injection or drainage. NECK: Supple, trachea midline T-tube in place. No lymphadenopathy. CARDIOVASCULAR: Regular rate and rhythm without murmurs, gallops, or rubs. RESPIRATORY: Breath sounds equal bilaterally and without rhonchi or wheezes. No accessory muscle use. GASTROINTESTINAL: Abdomen soft, non-tender, nondistended. MUSCULOSKELETAL: No cyanosis, or edema. Left hand weakness present, relatively unchanged from previous visits. PSYCHIATRIC: Pt Alert and oriented x3, no overt signs of depression and/or anxiety. Procedures 09/15/2016 bronchoscopy 09/11/2016 bronchoscopy 09/10/2016 left IJ central venous line 08/28/2016 subclavian 7 [place]e triple-lumen catheter left-sided. 08/18/2016 right arterial line 08/18/2016 right IJ central line Medications and IVs Current Medications Medications (Trade) Dose Ordered Sig/Josephine Route Start Time Stop Time Status Last Admin (Synthroid) 200 mcg DAILY@06 PO 08/15/16 06:00 11/21/16 06:01 (Pravachol) 20 mg HS PO 08/15/16 21:00 11/20/16 21:29 (Tylenol) 650 mg Q6H PRN PO 08/14/16 23:15 11/17/16 15:36 (Morphine Inj) 2 mg Q2H PRN IV 08/14/16 23:15 11/20/16 21:30 (Tears Naturale Opth Soln) 1 drop TID EACH EYE 08/15/16 09:00 11/19/16 18:00 (Zofran Inj) 4 mg Q6H PRN IV 08/14/16 23:15 Miscellaneous Information 1 Q361D XX 08/14/16 23:15 (Chlorhexidine 2% Cloth) 3 pack Taper DAILY@04 TOP 08/15/16 04:00 08/11/17 03:59 10/31/16 04:00 (Chlorhexidine 2% Cloth) 3 pack UNSCH PRN TOP 08/14/16 23:15 (Beneprotein Powder) 2 pack TID G-TUBE 08/15/16 09:00 11/20/16 08:09 (D50w (Vial) Inj) 25 ml UNSCH PRN IV PUSH 08/16/16 09:15 (NS Flush) DAILY IVF 09/11/16 09:00 11/21/16 08:01 (Mannitol Inj) 12.5 gm UNSCH PRN IV 09/20/16 10:30 10/05/16 09:40 (Albumin 25% Inj) 25 gm UNSCH PRN IV 09/20/16 10:30 10/10/16 10:10 (NS Flush) 5 ml UNSCH PRN IV FLUSH 09/20/16 10:30 09/21/16 13:24 (Heparin Inj) UNSCH PRN .XX 09/20/16 10:30 10/12/16 10:48 (Gentamicin (Dialysis) Inj) 20 mg UNSCH PRN IV 09/20/16 10:30 10/14/16 12:35 (Zofran Inj) 4 mg UNSCH PRN IV 09/20/16 10:30 (Tylenol) 650 mg UNSCH PRN PO 09/20/16 10:30 (Benadryl) 25 mg UNSCH PRN PO 09/20/16 10:30 11/01/16 05:05 (Nitrostat Sl) 0.4 mg UNSCH PRN SL 09/20/16 10:30 (Gelfoam 12 Mm/7 Mm Top) 1 foam UNSCH PRN TOP 09/20/16 10:30 (Eucerin Cream) 1 applic BID TOPICAL 09/27/16 21:00 11/21/16 08:01 (SEROquel) 75 mg Q8HR PO 09/28/16 14:00 11/21/16 06:00 (NS Flush) UNSCH PRN IVF 09/29/16 12:45 (Heparin Inj) UNSCH PRN IV FLUSH 09/29/16 12:45 (Melatonin) 5 mg HS PO 10/07/16 21:00 11/20/16 21:28 (Ativan Inj) 1 mg Q6H PRN IV PUSH 10/15/16 11:45 11/11/16 22:23 (Nitroglycerin 2% Oint) 2 inch Q6HR PRN TOPICAL 10/21/16 13:15 (Levsin Liq) 0.125 mg Q4H PRN PO 10/26/16 12:30 11/13/16 05:27 (Sharlene-Colace) 2 tab BID PO 11/09/16 13:00 11/21/16 08:01 (Milk Of Magnesia Liq) 30 ml Q6H PRN PO 11/09/16 13:00 (Coumadin) 6 mg DAILY@16 PO 11/13/16 16:00 11/20/16 15:27 (Lopressor) 25 mg Q8HR PO 11/16/16 14:00 11/21/16 06:01 Famotidine 20 mg 20 mg BID PO 11/17/16 09:15 11/21/16 08:00 (Coumadin Consult Pharmacy) 0 ml @ 0 mls/hr UNSCH OTHER 11/18/16 09:30 Urinary Catheter: Yes Assessment to: Continue Miller insert reason: Prolonged Immobilization Date of Insertion: October 21, 2016 A/P Assessment and Plan 56-year-old female admitted with respiratory failure and pneumonia, now with chronic tracheostomy and chronic respiratory failure. Acute toxic metabolic encephalopathy Critical care myopathy Agitated delirium -Resolved -Seroquel 75 mg every 8 hours for agitation -Melatonin 5mg po qHS for insomnia -Acetaminophen for fever/pain Acute on chronic hypercapnic and hypoxemic respiratory failure Pneumonia community-acquired, now with HCAP with carbapenem-resistant pseudomonas and ESBL Klebsiella VAP. 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 -Colistin nebs stop date 11/09 -ID following follow cultures -History of cultures: Blood cultures 08/28: NGTD C Diff negative 08/28. Lines changed 08/28. Sputum 08/30 - Pseudomonas Sputum 09/02 PSAE, resistant to carbapenem, intermediate to Levaquin. 09/07 - urine -Maribell Guilliermondii 09/07 - blood cultures 2 - no growth 09/09 - urine -strep viridans, Maribell parapsilosis 09/10 - blood cultures 2 -no growth 09/11 - broch washings -no growth to date 09/12 - urine -Maribell glabrata and parapsilosis 09/16 - blood cultures 2 - pending 09/16 - sputum -no growth 09/16 - urine -Maribell glabrata and parapsilosis 10/02 - blood cultures 2 - staph epi 10/02 - urine - ESBL positive Klebsiella 10/04 - blood cultures 2 -no growth 10/05 - blood cultures 2 -no growth 10/17 - blood cultures -no growth 10/17 - sputum -Klebsiella ESBL positive and Stenotrophomonas maltophilia 10/17 - urine -C glabrata 10/21/ 10/22 - urine - ESBL positive Klebsiella Left IJ/subclavian nonocclusive thrombus 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 Initiated care with sharlene-colace 2 tabs BID and MOM 30 ml q 6 hrs -Pt with two bowel movements within past 24 hours. -Seemingly resolved as she has had 3 bowel movements in past 36 hours. GI prophylaxis -famotidine 20 mg BID DVT prophylaxis -Coumadin Right lateral malleolus wound: -Wound care saw pt on 11/20/16 -Recommendations noted in report. - Lines: Peripheral IV. - Trach 09/15 - Right Permacath placed 09/29 Case discussed with pt, RN (Anne Marie) Wound care nurse (Abigail) and Dr. Zazueta. Discharge Planning Case management following [id number] facility is likely needed Contacts: Loree Marinelli, daughter (HCP): [phone] Rony Marinelli, significant other: [phone] Alessandro Coyle Jr. Nov 21, 2016 12:43
[2016-11-21] MEDS: WARFARIN SOD 6 MG TAB PO SCH (15:04)
--- NOTE | 2016-11-21 18:57 | HHI.PR ---
Subjective Remarks Trach remains capped , Daytime and on N/C 3L. needs no suctioning. Was up in a chair. Taking her diet well Objective Vital Signs Date Time Temp Pulse Resp B/P Pulse Ox O2 Delivery O2 Flow Rate FiO2 11/21/16 16:15 95.3 94 20 109/56 97 11/21/16 12:34 97.1 92 16 114/73 97 11/21/16 08:21 95.9 71 20 108/63 98 11/21/16 07:44 97 Nasal Cannula 3.00 11/21/16 04:00 97.0 74 20 132/79 97 11/21/16 00:00 98.3 82 20 110/65 98 11/20/16 20:55 96 Trach Collar 5.00 28 11/20/16 20:00 97.2 86 20 142/91 95 I/O 11/20/16 11/20/16 11/20/16 11/21/16 11/21/16 11/21/16 07:00 15:00 23:00 07:00 15:00 23:00 Intake Total 200 ml 480 ml 240 ml 360 ml 360 ml Output Total 700 ml 575 ml 475 ml 200 ml 800 ml Balance -500 ml -95 ml -235 ml -200 ml -440 ml 360 ml Intake Oral 200 ml 480 ml 240 ml 360 ml 360 ml Output Urine Total 700 ml 575 ml 475 ml 200 ml 800 ml # Bowel Movements 1 0 1 0 Result Diagram: 11/20/16 1340 Objective Remarks This is an obese middle-aged white female who is alert HEENT: Head normocephalic.throat clear. Neck: No bruits, no thyroid enlargement, no lymphadenopathy. Chest: Decreased breath sounds at bases.Occ wheeze heard. Heart: Heart sounds were regular. S1-S2 no murmur, no S3. Abdomen: Soft, benign. No masses, or tenderness. Bowel sounds are active. Extremities:No edema . Neuro :Moves all limbs.no deficits. Alert and Oriented Assessment and Plan Assessment and Plan IMPRESSION 1. Acute hypercapnic respiratory failure.Resolving 2. Pulmonary edema. 3. Drug rash 4. Obstructive sleep apnea syndrome 5. Hypertension 6. Hypothyroidism. 7. MIKE Plan : 1. Cap trach daytime for 16 hrs 2. Trach suctioning prn. 3. Nebs qid , duoneb. 4. Rehab placement 5. Use PM valve to talk. 6. T Collar at night 28 % FIo2 7. Diet as tolerated 8. O2 N/C 3 L daytime 9. Up in chair daily.Walk with help Abimael Beck MD Nov 21, 2016 18:57
[2016-11-21] MEDS: MORPHINE SULFATE 4 MG/ML INJ IV PRN (22:09)
[2016-11-21] MEDS: MELATONIN 5 MG TAB PO SCH (22:14)
[2016-11-21] MEDS: PRAVASTATIN SOD 20 MG TAB PO SCH (22:14)
[2016-11-22] VITALS (7 sets, daily range): BP systolic 107–129; BP diastolic 65–73; PULSE 80–100; RESP 17–20; TEMP 96.4–98.4; O2SAT 95–98
[2016-11-22] MEDS: CHLORHEXIDINE GLUCONATE 2 % 1 PACK (2 CLOTHS) TOP SCH (04:00)
[2016-11-22] MEDS: METOPROLOL TARTRATE 25 MG TAB PO SCH ×3 (05:22→21:55)
[2016-11-22] MEDS: QUEtiapine FUMARATE 25 MG TAB PO SCH ×3 (05:22→21:55)
[2016-11-22] MEDS: LEVOTHYROXINE SODIUM 200 MCG TAB PO SCH (05:22)
[2016-11-22] MEDS: BENEPROTEIN POWDER 1 PACK G-TUBE SCH ×3 (09:00→17:15)
[2016-11-22] MEDS: EUCERIN CREAM 120 GM JAR TOPICAL SCH ×2 (09:00→21:00)
[2016-11-22 09:29] LABS: HEMATOCRIT 31.2 % (35.0-46.0); MEAN CELL VOLUME 84.1 FL (80.0-100.0); MEAN CORPUSCULAR HEMOGLOBIN 27.9 PG (27.0-34.0); MEAN CORPUSCULAR HGB CONC 33.2 % (32.0-36.0); PLATELET COUNT 291 TH/MM3 (150-450); RED BLOOD COUNT 3.71 MIL/MM3 (4.00-5.30); REVIEW FLAG FINAL; WHITE BLOOD COUNT 7.2 TH/MM3 (4.0-11.0)
[2016-11-22 09:38] LABS: INTERNATIONAL NORMALIZED RATIO 2.3 RATIO; PROTHROMBIN TIME - PATIENT 25.8 SEC (9.8-11.6)
[2016-11-22] MEDS: FAMOTIDINE 20 MG TAB PO SCH ×2 (10:46→21:55)
[2016-11-22] MEDS: DOCUSATE SODIUM 50 MG/SENNA 8.6 MG TAB PO SCH ×2 (10:46→21:00)
[2016-11-22] MEDS: SODIUM CHLORIDE 0.9% FLUSH 10 ML FLUSH IVF SCH (10:47)
[2016-11-22] MEDS: ARTIFICIAL TEARS OPTH SOLN 15 ML BTL EACH EYE SCH ×4 (10:49→17:15)
--- NOTE | 2016-11-22 12:53 | HHI.PR ---
Subjective Remarks On a PM valve and on N/C 3L. Up in a chair Taking her diet well . Still wean in legs Objective Vital Signs Date Time Temp Pulse Resp B/P Pulse Ox O2 Delivery O2 Flow Rate FiO2 11/22/16 12:13 96.4 100 17 124/67 98 11/22/16 10:59 96 Nasal Cannula 3.00 11/22/16 08:14 97.1 86 17 129/73 97 11/22/16 04:00 97.4 93 20 114/66 98 11/22/16 00:00 98.4 94 20 125/65 95 11/21/16 20:00 97.2 82 20 104/61 96 11/21/16 19:50 98 Nasal Cannula 3.00 11/21/16 16:15 95.3 94 20 109/56 97 I/O 11/21/16 11/21/16 11/21/16 11/22/16 11/22/16 11/22/16 06:59 14:59 22:59 06:59 14:59 22:59 Intake Total 360 ml 600 ml Output Total 200 ml 800 ml 500 ml 500 ml Balance -200 ml -440 ml 100 ml -500 ml Intake Oral 360 ml 600 ml Output Urine Total 200 ml 800 ml 500 ml 500 ml # Bowel Movements 1 0 1 Result Diagram: 11/22/16 0906 Objective Remarks This is an obese middle-aged white female who is alert HEENT: Head normocephalic.throat clear. Neck: No bruits, no thyroid enlargement, no lymphadenopathy. Chest: Decreased breath sounds at bases.Occ crackles heard. Heart: Heart sounds were regular. S1-S2 no murmur, no S3. Abdomen: Soft, benign. No masses, or tenderness. Bowel sounds are active. Extremities:No edema . Neuro :Moves all limbs.no deficits. Alert and Oriented Assessment and Plan Assessment and Plan IMPRESSION 1. Acute hypercapnic respiratory failure.Resolving 2. Pulmonary edema. 3. Drug rash 4. Obstructive sleep apnea syndrome 5. Hypertension 6. Hypothyroidism. 7. MIKE Plan : 1. PM valve daytime for 16 hrs 2. Trach suctioning prn. 3. Nebs qid , duoneb. 4. Rehab placement 5. Will cap trach next week 6. T Collar at night 28 % FIo2 7. BMP,CBC 8. O2 N/C 3 L daytime 9. Up in chair daily. Walk with help Abimael Beck MD Nov 22, 2016 12:53
--- NOTE | 2016-11-22 14:08 | HHI.PR ---
Subjective Remarks Follow up on patient with acute on chronic respiratory failure s/p tracheostomy. Pt T-Tube uncapped. Patient seen and examined, lying a bed comfortably. Noted she continues to have left hand pain though she reports it to be infrequent. She said Occupational Therapy did not bring her a splint for her left hand. Appetite continues to be reported as decreased. No other complaints noted or reported by patient. Pt denied fever, cough, shortness of breath, NVD, constipation, sore throat, bloody urine or stool. Per RN ( Rusty) no new acute complaints over night or since start of shift. Objective Vitals Vital Signs Date Time Temp Pulse Resp B/P Pulse Ox O2 Delivery O2 Flow Rate FiO2 11/22/16 12:13 96.4 100 17 124/67 98 11/22/16 10:59 96 Nasal Cannula 3.00 11/22/16 08:14 97.1 86 17 129/73 97 11/22/16 04:00 97.4 93 20 114/66 98 11/22/16 00:00 98.4 94 20 125/65 95 11/21/16 20:00 97.2 82 20 104/61 96 11/21/16 19:50 98 Nasal Cannula 3.00 11/21/16 16:15 95.3 94 20 109/56 97 I/O 11/21/16 11/21/16 11/21/16 11/22/16 11/22/16 11/22/16 07:00 15:00 23:00 07:00 15:00 23:00 Intake Total 360 ml 600 ml Output Total 200 ml 800 ml 500 ml 500 ml Balance -200 ml -440 ml 100 ml -500 ml Intake Oral 360 ml 600 ml Output Urine Total 200 ml 800 ml 500 ml 500 ml # Bowel Movements 1 0 1 Result Diagram: 11/22/16 0906 Imaging Last Impressions Chest X-Ray 11/13/16 0600 Signed Impressions: Service Date/Time: Sunday, November 13, 2016 06:04 - CONCLUSION: 1. Stable right lower lobe linear airspace disease, likely atelectasis. 2. No interval change. Kel Stone MD Central Venous Line 10/20/16 0000 Signed Impressions: Service Date/Time: Thursday, October 20, 2016 00:00 - CONCLUSION: Uncomplicated Permcath removal. Didier Zhang MD Catheter Placement X-Ray 09/29/16 1223 Signed Impressions: Service Date/Time: Thursday, September 29, 2016 12:31 - CONCLUSION: Vas-Cath to PermCath exchange as detailed above. Taco Haas Jr., MD Renal Ultrasound 09/17/16 0000 Signed Impressions: Service Date/Time: Saturday, September 17, 2016 13:31 - CONCLUSION: Negative renal sonogram. Taco Davidson MD Upper Extremity Ultrasound 09/14/16 0000 Signed Impressions: Service Date/Time: August 08:32 - CONCLUSION: There is thrombus within the left subclavian and internal jugular veins. Danyel Escalante MD Lower Extremity Ultrasound 09/13/16 0000 Signed Impressions: Service Date/Time: Tuesday, September 13, 2016 22:33 - CONCLUSION: Normal examination. Leonides Mason MD Liver Ultrasound 09/08/16 0000 Signed Impressions: Service Date/Time: Thursday, September 08, 2016 08:45 - CONCLUSION: 1. Cholelithiasis with distended gallbladder. However, there are no associated findings present to diagnose acute cholecystitis. If there is persistent clinical concern for acute cholecystitis could evaluate for cystic duct obstruction with hepatobiliary scintigraphy. 2. Hepatomegaly with very heterogeneous echotexture and steatosis. Dejan Allison MD Gall Bladder Ultrasound 08/29/16 0000 Signed Impressions: Service Date/Time: Monday, August 29, 2016 15:21 - CONCLUSION: 1. Hepatomegaly with heterogeneous echotexture throughout the liver. 2. There is a large echogenic area near the neck of the gallbladder suggestive of a stone, but despite its large size, demonstrates no acoustic shadowing in any of the views. Taco Davidson MD CT Angiography 08/15/16 0000 Signed Impressions: Service Date/Time: Monday, August 15, 2016 02:33 - CONCLUSION: 1. No evidence for pulmonary embolism. 2. Multifocal consolidation greatest in the right lower lobe and associated adenopathy. Terry Estrada MD Objective Remarks GENERAL: Pt laying a bed, t-tube in place uncapped, pt mouthing words, NAD. SKIN: Warm and dry. Wound noted on right lateral malleolus. HEAD: Normocephalic. EYES: No scleral icterus. No injection or drainage. NECK: Supple, trachea midline T-tube in place. No lymphadenopathy. CARDIOVASCULAR: Regular rate and rhythm without murmurs, gallops, or rubs. RESPIRATORY: Breath sounds equal bilaterally and without rhonchi or wheezes. No accessory muscle use. GASTROINTESTINAL: Abdomen soft, non-tender, nondistended. MUSCULOSKELETAL: No cyanosis, or edema. Left hand weakness present, is using a gripping device provided by OT PSYCHIATRIC: Pt Alert and oriented x3, no overt signs of depression and/or anxiety. Procedures 09/15/2016 bronchoscopy 09/11/2016 bronchoscopy 09/10/2016 left IJ central venous line 08/28/2016 subclavian 7 Lao triple-lumen catheter left-sided. 08/18/2016 right arterial line 08/18/2016 right IJ central line Medications and IVs Current Medications Medications (Trade) Dose Ordered Sig/Josephine Route Start Time Stop Time Status Last Admin (Synthroid) 200 mcg DAILY@06 PO 08/15/16 06:00 11/22/16 05:22 (Pravachol) 20 mg HS PO 08/15/16 21:00 11/21/16 22:14 (Tylenol) 650 mg Q6H PRN PO 08/14/16 23:15 11/17/16 15:36 (Morphine Inj) 2 mg Q2H PRN IV 08/14/16 23:15 11/21/16 22:09 (Tears Naturale Opth Soln) 1 drop TID EACH EYE 08/15/16 09:00 11/22/16 10:49 (Zofran Inj) 4 mg Q6H PRN IV 08/14/16 23:15 Miscellaneous Information 1 Q361D XX 08/14/16 23:15 (Chlorhexidine 2% Cloth) 3 pack Taper DAILY@04 TOP 08/15/16 04:00 08/11/17 03:59 10/31/16 04:00 (Chlorhexidine 2% Cloth) 3 pack UNSCH PRN TOP 08/14/16 23:15 (Beneprotein Powder) 2 pack TID G-TUBE 08/15/16 09:00 11/22/16 09:00 (D50w (Vial) Inj) 25 ml UNSCH PRN IV PUSH 08/16/16 09:15 (NS Flush) DAILY IVF 09/11/16 09:00 11/22/16 10:47 (Mannitol Inj) 12.5 gm UNSCH PRN IV 09/20/16 10:30 10/05/16 09:40 (Albumin 25% Inj) 25 gm UNSCH PRN IV 09/20/16 10:30 10/10/16 10:10 (NS Flush) 5 ml UNSCH PRN IV FLUSH 09/20/16 10:30 09/21/16 13:24 (Heparin Inj) UNSCH PRN .XX 09/20/16 10:30 10/12/16 10:48 (Gentamicin (Dialysis) Inj) 20 mg UNSCH PRN IV 09/20/16 10:30 10/14/16 12:35 (Zofran Inj) 4 mg UNSCH PRN IV 09/20/16 10:30 (Tylenol) 650 mg UNSCH PRN PO 09/20/16 10:30 (Benadryl) 25 mg UNSCH PRN PO 09/20/16 10:30 11/01/16 05:05 (Nitrostat Sl) 0.4 mg UNSCH PRN SL 09/20/16 10:30 (Gelfoam 12 Mm/7 Mm Top) 1 foam UNSCH PRN TOP 09/20/16 10:30 (Eucerin Cream) 1 applic BID TOPICAL 09/27/16 21:00 11/22/16 09:00 (SEROquel) 75 mg Q8HR PO 09/28/16 14:00 11/22/16 05:22 (NS Flush) UNSCH PRN IVF 09/29/16 12:45 (Heparin Inj) UNSCH PRN IV FLUSH 09/29/16 12:45 (Melatonin) 5 mg HS PO 10/07/16 21:00 11/21/16 22:14 (Ativan Inj) 1 mg Q6H PRN IV PUSH 10/15/16 11:45 11/11/16 22:23 (Nitroglycerin 2% Oint) 2 inch Q6HR PRN TOPICAL 10/21/16 13:15 (Levsin Liq) 0.125 mg Q4H PRN PO 10/26/16 12:30 11/13/16 05:27 (Sharlene-Colace) 2 tab BID PO 11/09/16 13:00 11/22/16 10:46 (Milk Of Magnesia Liq) 30 ml Q6H PRN PO 11/09/16 13:00 (Coumadin) 6 mg DAILY@16 PO 11/13/16 16:00 11/21/16 15:04 (Lopressor) 25 mg Q8HR PO 11/16/16 14:00 11/22/16 05:22 Famotidine 20 mg 20 mg BID PO 11/17/16 09:15 11/22/16 10:46 (Coumadin Consult Pharmacy) 0 ml @ 0 mls/hr UNSCH OTHER 11/18/16 09:30 Urinary Catheter: Yes Assessment to: Continue Miller insert reason: Prolonged Immobilization Date of Insertion: October 21, 2016 A/P Assessment and Plan 56-year-old female admitted with respiratory failure and pneumonia, now with chronic tracheostomy and chronic respiratory failure. Acute toxic metabolic encephalopathy Critical care myopathy Agitated delirium -Resolved -Seroquel 75 mg every 8 hours for agitation -Melatonin 5mg po qHS for insomnia -Acetaminophen for fever/pain Acute on chronic hypercapnic and hypoxemic respiratory failure Pneumonia community-acquired, now with HCAP with carbapenem-resistant pseudomonas and ESBL Klebsiella VAP. 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 -Colistin nebs stop date 11/09 -ID following follow cultures -History of cultures: Blood cultures 08/28: NGTD C Diff negative 08/28. Lines changed 08/28. Sputum 08/30 - Pseudomonas Sputum 09/02 PSAE, resistant to carbapenem, intermediate to Levaquin. 09/07 - urine -Maribell Guilliermondii 09/07 - blood cultures 2 - no growth 09/09 - urine -strep viridans, Maribell parapsilosis 09/10 - blood cultures 2 -no growth 09/11 - broch washings -no growth to date 09/12 - urine -Maribell glabrata and parapsilosis 09/16 - blood cultures 2 - pending 09/16 - sputum -no growth 09/16 - urine -Maribell glabrata and parapsilosis 10/02 - blood cultures 2 - staph epi 10/02 - urine - ESBL positive Klebsiella 10/04 - blood cultures 2 -no growth 10/05 - blood cultures 2 -no growth 10/17 - blood cultures -no growth 10/17 - sputum -Klebsiella ESBL positive and Stenotrophomonas maltophilia 10/17 - urine -C glabrata 10/21/ 10/22 - urine - ESBL positive Klebsiella Left IJ/subclavian nonocclusive thrombus 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 Initiated care with sharlene-colace 2 tabs BID and MOM 30 ml q 6 hrs -Pt with two bowel movements within past 24 hours. -Resolved GI prophylaxis -famotidine 20 mg BID DVT prophylaxis -Coumadin Right lateral malleolus wound: -Wound care saw pt on 11/20/16 -Recommendations noted in report. - Lines: Peripheral IV. - Trach 09/15 - Right Permacath placed 09/29 Case discussed with pt, RN (Rusty), and Dr. Zazueta. Discharge Planning Case management following [id number] facility is likely needed Alessandro Coyle Jr. Nov 22, 2016 14:08
[2016-11-22] MEDS: WARFARIN SOD 6 MG TAB PO SCH (17:15)
[2016-11-22] MEDS: PRAVASTATIN SOD 20 MG TAB PO SCH (21:54)
[2016-11-22] MEDS: MELATONIN 5 MG TAB PO SCH (21:54)
[2016-11-22] MEDS: MORPHINE SULFATE 4 MG/ML INJ IV PRN (21:54)
[2016-11-22] MEDS: SODIUM CHLORIDE 0.9% FLUSH 10 ML FLUSH IVF PRN (21:58)
[2016-11-23] VITALS (8 sets, daily range): BP systolic 92–123; BP diastolic 56–74; PULSE 70–103; RESP 16–18; TEMP 96.5–98.8; O2SAT 94–97
[2016-11-23] MEDS: CHLORHEXIDINE GLUCONATE 2 % 1 PACK (2 CLOTHS) TOP SCH (03:40)
[2016-11-23] MEDS: LEVOTHYROXINE SODIUM 200 MCG TAB PO SCH (04:52)
[2016-11-23] MEDS: METOPROLOL TARTRATE 25 MG TAB PO SCH ×3 (04:53→22:33)
[2016-11-23] MEDS: QUEtiapine FUMARATE 25 MG TAB PO SCH ×3 (04:53→22:33)
[2016-11-23 08:02] LABS: HEMATOCRIT 31.5 % (35.0-46.0); MEAN CELL VOLUME 84.1 FL (80.0-100.0); MEAN CORPUSCULAR HEMOGLOBIN 27.5 PG (27.0-34.0); MEAN CORPUSCULAR HGB CONC 32.7 % (32.0-36.0); PLATELET COUNT 293 TH/MM3 (150-450); RED BLOOD COUNT 3.75 MIL/MM3 (4.00-5.30); RED CELL DISTRIBUTION WIDTH 17.1 % (11.6-17.2); REVIEW FLAG FINAL; WHITE BLOOD COUNT 7.6 TH/MM3 (4.0-11.0)
[2016-11-23 08:08] LABS: APTT (PATIENT) 39.7 SEC (24.3-30.1); INTERNATIONAL NORMALIZED RATIO 2.3 RATIO; PROTHROMBIN TIME - PATIENT 26.6 SEC (9.8-11.6)
[2016-11-23] MEDS: DOCUSATE SODIUM 50 MG/SENNA 8.6 MG TAB PO SCH ×2 (09:00→22:33)
[2016-11-23] MEDS: BENEPROTEIN POWDER 1 PACK G-TUBE SCH ×3 (09:00→17:55)
[2016-11-23] MEDS: ARTIFICIAL TEARS OPTH SOLN 15 ML BTL EACH EYE SCH ×3 (09:00→17:55)
[2016-11-23] MEDS: EUCERIN CREAM 120 GM JAR TOPICAL SCH ×2 (09:00→22:34)
[2016-11-23] MEDS: FAMOTIDINE 20 MG TAB PO SCH ×2 (09:37→22:33)
[2016-11-23] MEDS: SODIUM CHLORIDE 0.9% FLUSH 10 ML FLUSH IVF SCH (09:41)
[2016-11-23] MEDS: WARFARIN SOD 6 MG TAB PO SCH (15:46)
--- NOTE | 2016-11-23 17:51 | HHI.PR ---
Subjective Remarks Follow up on patient with acute on chronic respiratory failure s/p tracheostomy. Pt T-Tube capped. Patient seen and examined, lying a bed comfortably. Speaking softly. Stated she continues to "talk like a frog." Noted she continues to have left hand pain using device provided by OT. Appetite continues to be reported as decreased. Pt's breakfast tray present and some food remained. Pt reported having an "itchy back" and attributed this to her skin coming in direct contact with bed cover. No other complaints noted or reported by patient. Pt denied fever, cough, shortness of breath, NVD, constipation, sore throat, bloody urine or stool. Per RN ( Rusty) no new acute complaints over night or since start of shift. Objective Vitals Vital Signs Date Time Temp Pulse Resp B/P Pulse Ox O2 Delivery O2 Flow Rate FiO2 11/23/16 16:21 98.8 94 18 107/56 97 11/23/16 12:37 97.4 93 18 110/74 97 11/23/16 09:45 97 Nasal Cannula 3.00 11/23/16 09:06 94 Nasal Cannula 3.00 11/23/16 08:18 98.6 90 18 118/66 97 11/23/16 04:09 98 Trach Collar 35 11/23/16 04:09 97.6 96 18 101/64 95 11/23/16 01:00 98 Trach Collar 35 11/23/16 00:59 97.1 103 16 92/61 96 11/22/16 20:26 97.4 86 18 107/70 96 11/22/16 17:58 Nasal Cannula 3.00 I/O 11/22/16 11/22/16 11/22/16 11/23/16 11/23/16 11/23/16 07:00 15:00 23:00 07:00 15:00 23:00 Intake Total 480 ml 360 ml Output Total 500 ml 425 ml 1200 ml 500 ml 450 ml Balance -500 ml 55 ml -1200 ml -500 ml -90 ml Intake Oral 480 ml 360 ml Output Urine Total 500 ml 425 ml 1200 ml 500 ml 450 ml # Bowel Movements 2 1 0 Result Diagram: 11/23/16 0735 Objective Remarks GENERAL: Pt laying a bed, t-tube in place capped, pt speaking, NAD. SKIN: Warm and dry. Wound noted on right lateral malleolus bandaged and covered with gauze. Back not red. HEAD: Normocephalic. EYES: No scleral icterus. No injection or drainage. NECK: Supple, trachea midline T-tube in place. No lymphadenopathy. CARDIOVASCULAR: Regular rate and rhythm without murmurs, gallops, or rubs. RESPIRATORY: Breath sounds equal bilaterally and without rhonchi or wheezes. No accessory muscle use. GASTROINTESTINAL: Abdomen soft, non-tender, nondistended. MUSCULOSKELETAL: No cyanosis, or edema. Left hand weakness present, is using a gripping device provided by OT PSYCHIATRIC: Pt Alert and oriented x3, no overt signs of depression and/or anxiety. Procedures 09/15/2016 bronchoscopy 09/11/2016 bronchoscopy 09/10/2016 left IJ central venous line 08/28/2016 subclavian 7 Chinese triple-lumen catheter left-sided. 08/18/2016 right arterial line 08/18/2016 right IJ central line Medications and IVs Current Medications Medications (Trade) Dose Ordered Sig/Josephine Route Start Time Stop Time Status Last Admin (Synthroid) 200 mcg DAILY@06 PO 08/15/16 06:00 11/23/16 04:52 (Pravachol) 20 mg HS PO 08/15/16 21:00 11/22/16 21:54 (Tylenol) 650 mg Q6H PRN PO 08/14/16 23:15 11/17/16 15:36 (Morphine Inj) 2 mg Q2H PRN IV 08/14/16 23:15 11/22/16 21:54 (Tears Naturale Opth Soln) 1 drop TID EACH EYE 08/15/16 09:00 11/23/16 14:09 (Zofran Inj) 4 mg Q6H PRN IV 08/14/16 23:15 Miscellaneous Information 1 Q361D XX 08/14/16 23:15 (Chlorhexidine 2% Cloth) Taper DAILY@04 TOP 08/15/16 04:00 08/11/17 03:59 10/31/16 04:00 (Chlorhexidine 2% Cloth) 3 pack UNSCH PRN TOP 08/14/16 23:15 (Beneprotein Powder) 2 pack TID G-TUBE 08/15/16 09:00 11/20/16 08:09 (D50w (Vial) Inj) 25 ml UNSCH PRN IV PUSH 08/16/16 09:15 (NS Flush) DAILY IVF 09/11/16 09:00 11/23/16 09:41 (Mannitol Inj) 12.5 gm UNSCH PRN IV 09/20/16 10:30 10/05/16 09:40 (Albumin 25% Inj) 25 gm UNSCH PRN IV 09/20/16 10:30 10/10/16 10:10 (NS Flush) 5 ml UNSCH PRN IV FLUSH 09/20/16 10:30 09/21/16 13:24 (Heparin Inj) UNSCH PRN .XX 09/20/16 10:30 10/12/16 10:48 (Gentamicin (Dialysis) Inj) 20 mg UNSCH PRN IV 09/20/16 10:30 10/14/16 12:35 (Zofran Inj) 4 mg UNSCH PRN IV 09/20/16 10:30 (Tylenol) 650 mg UNSCH PRN PO 09/20/16 10:30 (Benadryl) 25 mg UNSCH PRN PO 09/20/16 10:30 11/01/16 05:05 (Nitrostat Sl) 0.4 mg UNSCH PRN SL 09/20/16 10:30 (Gelfoam 12 Mm/7 Mm Top) 1 foam UNSCH PRN TOP 09/20/16 10:30 (Eucerin Cream) 1 applic BID TOPICAL 09/27/16 21:00 11/22/16 09:00 (SEROquel) 75 mg Q8HR PO 09/28/16 14:00 11/23/16 14:08 (NS Flush) UNSCH PRN IVF 09/29/16 12:45 11/22/16 21:58 (Heparin Inj) UNSCH PRN IV FLUSH 09/29/16 12:45 (Melatonin) 5 mg HS PO 10/07/16 21:00 11/22/16 21:54 (Ativan Inj) 1 mg Q6H PRN IV PUSH 10/15/16 11:45 11/11/16 22:23 (Nitroglycerin 2% Oint) 2 inch Q6HR PRN TOPICAL 10/21/16 13:15 (Levsin Liq) 0.125 mg Q4H PRN PO 10/26/16 12:30 11/13/16 05:27 (Sharlene-Colace) 2 tab BID PO 11/09/16 13:00 11/22/16 10:46 (Milk Of Fritz Litelma) 30 ml Q6H PRN PO 11/09/16 13:00 (Coumadin) 6 mg DAILY@16 PO 11/13/16 16:00 11/23/16 15:46 (Lopressor) 25 mg Q8HR PO 11/16/16 14:00 11/23/16 14:08 Famotidine 20 mg 20 mg BID PO 11/17/16 09:15 11/23/16 09:37 (Coumadin Consult Pharmacy) 0 ml @ 0 mls/hr UNSCH OTHER 11/18/16 09:30 Urinary Catheter: Yes Assessment to: Continue Miller insert reason: Prolonged Immobilization Date of Insertion: October 21, 2016 A/P Assessment and Plan 56-year-old female admitted with respiratory failure and pneumonia, now with chronic tracheostomy and chronic respiratory failure. Acute toxic metabolic encephalopathy Critical care myopathy Agitated delirium -Resolved -Seroquel 75 mg every 8 hours for agitation -Melatonin 5mg po qHS for insomnia -Acetaminophen for fever/pain Acute on chronic hypercapnic and hypoxemic respiratory failure Pneumonia community-acquired, now with HCAP with carbapenem-resistant pseudomonas and ESBL Klebsiella VAP. 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 -Colistin nebs stop date 11/09 -ID following follow cultures -History of cultures: Blood cultures 08/28: NGTD C Diff negative 08/28. Lines changed 08/28. Sputum 08/30 - Pseudomonas Sputum 09/02 PSAE, resistant to carbapenem, intermediate to Levaquin. 09/07 - urine -Maribell Guilliermondii 09/07 - blood cultures 2 - no growth 09/09 - urine -strep viridans, Maribell parapsilosis 09/10 - blood cultures 2 -no growth 09/11 - broch washings -no growth to date 09/12 - urine -Maribell glabrata and parapsilosis 09/16 - blood cultures 2 - pending 09/16 - sputum -no growth 09/16 - urine -Maribell glabrata and parapsilosis 10/02 - blood cultures 2 - staph epi 10/02 - urine - ESBL positive Klebsiella 10/04 - blood cultures 2 -no growth 10/05 - blood cultures 2 -no growth 10/17 - blood cultures -no growth 10/17 - sputum -Klebsiella ESBL positive and Stenotrophomonas maltophilia 10/17 - urine -C glabrata 10/21/ 10/22 - urine - ESBL positive Klebsiella Left IJ/subclavian nonocclusive thrombus 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 Initiated care with sharlene-colace 2 tabs BID and MOM 30 ml q 6 hrs -Pt with two bowel movements within past 24 hours. -Resolved Pruritus -Pt to use Eucerin for itching and if that does not relieve it Benadryl is available. GI prophylaxis -famotidine 20 mg BID DVT prophylaxis -Coumadin Right lateral malleolus wound: -Wound care saw pt on 11/20/16 -Recommendations noted in report. - Lines: Peripheral IV. - Trach 09/15 - Right Permacath placed 09/29 Case discussed with pt, RN (Rusty), and Dr. Zazueta. Discharge Planning Case management following [id number] facility is likely needed Alessandro Coyle Jr. Nov 23, 2016 17:51
[2016-11-23] MEDS: diphenhydrAMINE HCL 25 MG CAP PO PRN (22:33)
[2016-11-23] MEDS: PRAVASTATIN SOD 20 MG TAB PO SCH (22:33)
[2016-11-23] MEDS: MELATONIN 5 MG TAB PO SCH (22:33)
[2016-11-23] MEDS: MORPHINE SULFATE 4 MG/ML INJ IV PRN (22:48)
[2016-11-24] VITALS (8 sets, daily range): BP systolic 92–107; BP diastolic 48–63; PULSE 72–103; RESP 18–20; TEMP 96.5–98.2; O2SAT 96–98
[2016-11-24] MEDS: CHLORHEXIDINE GLUCONATE 2 % 1 PACK (2 CLOTHS) TOP SCH (03:50)
[2016-11-24] MEDS: METOPROLOL TARTRATE 25 MG TAB PO SCH ×3 (06:00→22:41)
[2016-11-24] MEDS: LEVOTHYROXINE SODIUM 200 MCG TAB PO SCH (06:29)
[2016-11-24] MEDS: QUEtiapine FUMARATE 25 MG TAB PO SCH ×3 (06:29→22:50)
[2016-11-24] MEDS: BENEPROTEIN POWDER 1 PACK G-TUBE SCH ×4 (09:00→16:51)
[2016-11-24] MEDS: DOCUSATE SODIUM 50 MG/SENNA 8.6 MG TAB PO SCH ×2 (09:29→22:49)
[2016-11-24] MEDS: FAMOTIDINE 20 MG TAB PO SCH ×2 (09:29→22:41)
[2016-11-24] MEDS: EUCERIN CREAM 120 GM JAR TOPICAL SCH ×2 (09:30→22:42)
[2016-11-24] MEDS: ARTIFICIAL TEARS OPTH SOLN 15 ML BTL EACH EYE SCH ×3 (09:30→18:21)
[2016-11-24] MEDS: SODIUM CHLORIDE 0.9% FLUSH 10 ML FLUSH IVF SCH (09:31)
[2016-11-24 09:47] LABS: APTT (PATIENT) 40.6 SEC (24.3-30.1); INTERNATIONAL NORMALIZED RATIO 2.2 RATIO; PROTHROMBIN TIME - PATIENT 25.4 SEC (9.8-11.6)
--- NOTE | 2016-11-24 13:06 | HHI.PR ---
Subjective Remarks Trach is capped, and on N/C 3L. Up in a chair. Taking her diet well . Objective Vital Signs Date Time Temp Pulse Resp B/P Pulse Ox O2 Delivery O2 Flow Rate FiO2 11/24/16 12:44 97.6 98 18 92/56 96 11/24/16 10:00 98 Nasal Cannula 3.00 11/24/16 10:00 98 Nasal Cannula 3.00 11/24/16 08:34 98.2 76 18 95/48 96 11/24/16 05:36 97 Trach Collar 35 11/24/16 04:12 97.5 72 18 100/52 96 11/23/16 23:47 96.5 70 18 123/65 95 11/23/16 22:53 18 11/23/16 20:38 97.7 90 18 112/60 96 11/23/16 16:21 98.8 94 18 107/56 97 I/O 11/23/16 11/23/16 11/23/16 11/24/16 11/24/16 11/24/16 07:00 15:00 23:00 07:00 15:00 23:00 Intake Total 360 ml Output Total 500 ml 450 ml 1050 ml Balance -500 ml -90 ml -1050 ml Intake Oral 360 ml Output Urine Total 500 ml 450 ml 1050 ml # Bowel Movements 0 1 Result Diagram: 11/23/16 0735 Objective Remarks This is an obese middle-aged white female who is alert HEENT: Head normocephalic.throat clear. Neck: No bruits, no thyroid enlargement, no lymphadenopathy. Chest: Decreased breath sounds at bases.Occ basal crackles heard. Heart: Heart sounds were regular. S1-S2 no murmur, no S3. Abdomen: Soft, benign. No masses, or tenderness. Bowel sounds are active. Extremities:No edema . Neuro :Moves all limbs.no deficits. Alert and Oriented Assessment and Plan Assessment and Plan IMPRESSION 1. Acute hypercapnic respiratory failure.Resolving 2. Pulmonary edema. 3. Drug rash 4. Obstructive sleep apnea syndrome 5. Hypertension 6. Hypothyroidism. 7. MIKE Plan : 1. Cap trach day and nite 2. Trach suctioning prn. 3. Nebs qid , duoneb. 4. Rehab placement 5. N/C o2 3 L. 6. Will Decannulate on Sunday if stable Abimael Beck MD Nov 24, 2016 13:06
[2016-11-24] MEDS: diphenhydrAMINE HCL 25 MG CAP PO PRN (14:02)
--- NOTE | 2016-11-24 14:52 | HHI.PR ---
Subjective Remarks Follow up on patient with acute on chronic respiratory failure s/p tracheostomy. Pt T-Tube capped. Patient seen and examined, lying a bed comfortably. Speaking softly. Noted she continues to have left hand pain using device provided by OT. Pt reported having an "itchy back" yesterday and it is "better" today. No other complaints noted or reported by patient. Pt denied fever, cough, shortness of breath, NVD, constipation, sore throat, bloody urine or stool. Per RN ( Pilar) no new acute complaints over night or since start of shift. Objective Vitals Vital Signs Date Time Temp Pulse Resp B/P Pulse Ox O2 Delivery O2 Flow Rate FiO2 11/24/16 12:44 97.6 98 18 92/56 96 11/24/16 10:00 98 Nasal Cannula 3.00 11/24/16 10:00 98 Nasal Cannula 3.00 11/24/16 08:34 98.2 76 18 95/48 96 11/24/16 05:36 97 Trach Collar 35 11/24/16 04:12 97.5 72 18 100/52 96 11/23/16 23:47 96.5 70 18 123/65 95 11/23/16 22:53 18 11/23/16 20:38 97.7 90 18 112/60 96 11/23/16 16:21 98.8 94 18 107/56 97 I/O 11/23/16 11/23/16 11/23/16 11/24/16 11/24/16 11/24/16 07:00 15:00 23:00 07:00 15:00 23:00 Intake Total 360 ml Output Total 500 ml 450 ml 1050 ml Balance -500 ml -90 ml -1050 ml Intake Oral 360 ml Output Urine Total 500 ml 450 ml 1050 ml # Bowel Movements 0 1 Result Diagram: 11/23/16 0735 Objective Remarks GENERAL: Pt laying a bed, t-tube in place capped, pt speaking, NAD. SKIN: Warm and dry. Wound noted on right lateral malleolus bandaged and covered with gauze. HEAD: Normocephalic. EYES: No scleral icterus. No injection or drainage. NECK: Supple, trachea midline T-tube in place. No lymphadenopathy. CARDIOVASCULAR: Regular rate and rhythm without murmurs, gallops, or rubs. RESPIRATORY: Breath sounds equal bilaterally and without rhonchi or wheezes. No accessory muscle use. GASTROINTESTINAL: Abdomen soft, non-tender, nondistended. MUSCULOSKELETAL: No cyanosis, or edema. Left hand weakness present, is using a gripping device provided by OT PSYCHIATRIC: Pt Alert and oriented x3, no overt signs of depression and/or anxiety. Pleasant and cooperative. Procedures 09/15/2016 bronchoscopy 09/11/2016 bronchoscopy 09/10/2016 left IJ central venous line 08/28/2016 subclavian 7 Citizen Of [place] triple-lumen catheter left-sided. 08/18/2016 right arterial line 08/18/2016 right IJ central line Medications and IVs Current Medications Medications (Trade) Dose Ordered Sig/Josephine Route Start Time Stop Time Status Last Admin (Synthroid) 200 mcg DAILY@06 PO 08/15/16 06:00 11/24/16 06:29 (Pravachol) 20 mg HS PO 08/15/16 21:00 11/23/16 22:33 (Tylenol) 650 mg Q6H PRN PO 08/14/16 23:15 11/17/16 15:36 (Morphine Inj) 2 mg Q2H PRN IV 08/14/16 23:15 11/23/16 22:48 (Tears Naturale Opth Soln) 1 drop TID EACH EYE 08/15/16 09:00 11/24/16 12:32 (Zofran Inj) 4 mg Q6H PRN IV 08/14/16 23:15 Miscellaneous Information 1 Q361D XX 08/14/16 23:15 (Chlorhexidine 2% Cloth) Taper DAILY@04 TOP 08/15/16 04:00 08/11/17 03:59 10/31/16 04:00 (Chlorhexidine 2% Cloth) 3 pack UNSCH PRN TOP 08/14/16 23:15 (Beneprotein Powder) 2 pack TID G-TUBE 08/15/16 09:00 11/20/16 08:09 (D50w (Vial) Inj) 25 ml UNSCH PRN IV PUSH 08/16/16 09:15 (NS Flush) DAILY IVF 09/11/16 09:00 11/24/16 09:31 (Mannitol Inj) 12.5 gm UNSCH PRN IV 09/20/16 10:30 10/05/16 09:40 (Albumin 25% Inj) 25 gm UNSCH PRN IV 09/20/16 10:30 10/10/16 10:10 (NS Flush) 5 ml UNSCH PRN IV FLUSH 09/20/16 10:30 09/21/16 13:24 (Heparin Inj) UNSCH PRN .XX 09/20/16 10:30 10/12/16 10:48 (Gentamicin (Dialysis) Inj) 20 mg UNSCH PRN IV 09/20/16 10:30 10/14/16 12:35 (Zofran Inj) 4 mg UNSCH PRN IV 09/20/16 10:30 (Tylenol) 650 mg UNSCH PRN PO 09/20/16 10:30 (Benadryl) 25 mg UNSCH PRN PO 09/20/16 10:30 11/24/16 14:02 (Nitrostat Sl) 0.4 mg UNSCH PRN SL 09/20/16 10:30 (Gelfoam 12 Mm/7 Mm Top) 1 foam UNSCH PRN TOP 09/20/16 10:30 (Eucerin Cream) 1 applic BID TOPICAL 09/27/16 21:00 11/24/16 09:30 (SEROquel) 75 mg Q8HR PO 09/28/16 14:00 11/24/16 13:56 (NS Flush) UNSCH PRN IVF 09/29/16 12:45 11/22/16 21:58 (Heparin Inj) UNSCH PRN IV FLUSH 09/29/16 12:45 (Melatonin) 5 mg HS PO 10/07/16 21:00 11/23/16 22:33 (Ativan Inj) 1 mg Q6H PRN IV PUSH 10/15/16 11:45 11/11/16 22:23 (Nitroglycerin 2% Oint) 2 inch Q6HR PRN TOPICAL 10/21/16 13:15 (Levsin Liq) 0.125 mg Q4H PRN PO 10/26/16 12:30 11/13/16 05:27 (Sharlene-Colace) 2 tab BID PO 11/09/16 13:00 11/24/16 09:29 (Milk Of Magnesia Liq) 30 ml Q6H PRN PO 11/09/16 13:00 (Coumadin) 6 mg DAILY@16 PO 11/13/16 16:00 11/23/16 15:46 (Lopressor) 25 mg Q8HR PO 11/16/16 14:00 11/23/16 22:33 Famotidine 20 mg 20 mg BID PO 11/17/16 09:15 11/24/16 09:29 (Coumadin Consult Pharmacy) 0 ml @ 0 mls/hr UNSCH OTHER 11/18/16 09:30 Urinary Catheter: Yes Assessment to: Continue Miller insert reason: Prolonged Immobilization Date of Insertion: October 21, 2016 A/P Assessment and Plan 56-year-old female admitted with respiratory failure and pneumonia, now with chronic tracheostomy and chronic respiratory failure. Acute toxic metabolic encephalopathy Critical care myopathy Agitated delirium -Resolved -Seroquel 75 mg every 8 hours for agitation -Melatonin 5mg po qHS for insomnia -Acetaminophen for fever/pain Acute on chronic hypercapnic and hypoxemic respiratory failure Pneumonia community-acquired, now with HCAP with carbapenem-resistant pseudomonas and ESBL Klebsiella VAP. 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 -Colistin nebs stop date 11/09 -ID following follow cultures -History of cultures: Blood cultures 08/28: NGTD C Diff negative 08/28. Lines changed 08/28. Sputum 08/30 - Pseudomonas Sputum 09/02 PSAE, resistant to carbapenem, intermediate to Levaquin. 09/07 - urine -Maribell Guilliermondii 09/07 - blood cultures 2 - no growth 09/09 - urine -strep viridans, Maribell parapsilosis 09/10 - blood cultures 2 -no growth 09/11 - broch washings -no growth to date 09/12 - urine -Maribell glabrata and parapsilosis 09/16 - blood cultures 2 - pending 09/16 - sputum -no growth 09/16 - urine -Maribell glabrata and parapsilosis 10/02 - blood cultures 2 - staph epi 10/02 - urine - ESBL positive Klebsiella 10/04 - blood cultures 2 -no growth 10/05 - blood cultures 2 -no growth 10/17 - blood cultures -no growth 10/17 - sputum -Klebsiella ESBL positive and Stenotrophomonas maltophilia 10/17 - urine -C glabrata 10/21/ 10/22 - urine - ESBL positive Klebsiella Left IJ/subclavian nonocclusive thrombus 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 Initiated care with sharlene-colace 2 tabs BID and MOM 30 ml q 6 hrs -Pt with two bowel movements within past 24 hours. -Resolved Pruritus -Pt to use Eucerin for itching and if that does not relieve it Benadryl is available. GI prophylaxis -famotidine 20 mg BID DVT prophylaxis -Coumadin Right lateral malleolus wound: -Wound care saw pt on 11/20/16 -Recommendations noted in report. Lines: Peripheral IV. - Trach 09/15 - Right Permacath placed 09/29 Case discussed with pt, RN (Pilar), and Dr. Zazueta. Discharge Planning Case management following [id number] is likely needed Alessandro Coyle Jr. Nov 24, 2016 14:52
[2016-11-24] MEDS: WARFARIN SOD 6 MG TAB PO SCH (15:38)
[2016-11-24] MEDS: MELATONIN 5 MG TAB PO SCH (22:41)
[2016-11-24] MEDS: PRAVASTATIN SOD 20 MG TAB PO SCH (22:41)
[2016-11-24] MEDS: MORPHINE SULFATE 4 MG/ML INJ IV PRN (22:49)
[2016-11-25] VITALS (8 sets, daily range): BP systolic 103–122; BP diastolic 55–79; PULSE 78–100; RESP 18–19; TEMP 95.6–98; O2SAT 93–99
[2016-11-25] MEDS: CHLORHEXIDINE GLUCONATE 2 % 1 PACK (2 CLOTHS) TOP SCH (04:00)
[2016-11-25] MEDS: QUEtiapine FUMARATE 25 MG TAB PO SCH ×3 (05:00→22:25)
[2016-11-25] MEDS: METOPROLOL TARTRATE 25 MG TAB PO SCH ×3 (05:00→22:25)
[2016-11-25] MEDS: LEVOTHYROXINE SODIUM 200 MCG TAB PO SCH (05:00)
[2016-11-25 08:24] LABS: HEMATOCRIT 32.1 % (35.0-46.0); MEAN CELL VOLUME 83.6 FL (80.0-100.0); MEAN CORPUSCULAR HEMOGLOBIN 27.7 PG (27.0-34.0); MEAN CORPUSCULAR HGB CONC 33.1 % (32.0-36.0); PLATELET COUNT 326 TH/MM3 (150-450); RED BLOOD COUNT 3.84 MIL/MM3 (4.00-5.30); RED CELL DISTRIBUTION WIDTH 16.7 % (11.6-17.2); REVIEW FLAG FINAL; WHITE BLOOD COUNT 7.1 TH/MM3 (4.0-11.0)
[2016-11-25 08:30] LABS: APTT (PATIENT) 39.4 SEC (24.3-30.1); INTERNATIONAL NORMALIZED RATIO 2.2 RATIO; PROTHROMBIN TIME - PATIENT 24.9 SEC (9.8-11.6)
[2016-11-25] MEDS: BENEPROTEIN POWDER 1 PACK G-TUBE SCH ×3 (09:00→18:00)
[2016-11-25] MEDS: FAMOTIDINE 20 MG TAB PO SCH ×2 (09:43→22:26)
[2016-11-25] MEDS: DOCUSATE SODIUM 50 MG/SENNA 8.6 MG TAB PO SCH ×2 (09:43→21:00)
[2016-11-25] MEDS: ARTIFICIAL TEARS OPTH SOLN 15 ML BTL EACH EYE SCH ×3 (09:45→18:00)
[2016-11-25] MEDS: SODIUM CHLORIDE 0.9% FLUSH 10 ML FLUSH IVF SCH (09:45)
[2016-11-25] MEDS: EUCERIN CREAM 120 GM JAR TOPICAL SCH ×2 (09:46→22:27)
[2016-11-25] MEDS: WARFARIN SOD 6 MG TAB PO SCH (17:54)
--- NOTE | 2016-11-25 18:45 | HHI.PR ---
Subjective Remarks Follow up on patient with acute on chronic respiratory failure s/p tracheostomy. Pt T-Tube capped. Patient seen and examined, lying a bed comfortably. Speaking softly. Noted she continues to have left hand pain using device provided by OT. No complaints of her "itchy back" reported. No other complaints noted or reported by patient. Pt denied fever, cough, shortness of breath, NVD, constipation, sore throat, bloody urine or stool. Per RN no new acute complaints over night or since start of shift. Objective Vitals Vital Signs Date Time Temp Pulse Resp B/P Pulse Ox O2 Delivery O2 Flow Rate FiO2 11/25/16 16:28 96.0 100 18 117/79 96 11/25/16 12:51 96.0 93 18 121/76 93 11/25/16 09:13 99 Nasal Cannula 2.00 11/25/16 08:10 95.6 89 18 122/69 96 11/25/16 05:30 98.0 91 18 110/59 97 11/25/16 04:55 96.8 78 19 103/60 97 11/25/16 03:17 Trach Collar 3.00 35 11/25/16 01:22 105/65 11/24/16 20:00 96.9 103 20 107/63 97 11/24/16 20:00 96.9 103 20 107/63 97 I/O 11/24/16 11/24/16 11/24/16 11/25/16 11/25/16 11/25/16 07:00 15:00 23:00 07:00 15:00 23:00 Intake Total 360 ml 29 ml 476 ml Output Total 1050 ml 700 ml 2200 ml 925 ml Balance -1050 ml -340 ml -2171 ml -449 ml Intake Oral 360 ml 476 ml IV Total 29 ml Output Urine Total 1050 ml 700 ml 2200 ml 925 ml # Bowel Movements 1 2 2 1 Result Diagram: 11/25/16 0750 Objective Remarks GENERAL: Pt laying a bed, t-tube in place capped, pt speaking, NAD. SKIN: Warm and dry. Wound noted on right lateral malleolus bandaged and covered with gauze. HEAD: Normocephalic. EYES: No scleral icterus. No injection or drainage. NECK: Supple, trachea midline T-tube in place. No lymphadenopathy. CARDIOVASCULAR: Regular rate and rhythm without murmurs, gallops, or rubs. RESPIRATORY: Breath sounds equal bilaterally and without rhonchi or wheezes. No accessory muscle use. GASTROINTESTINAL: Abdomen soft, non-tender, nondistended. MUSCULOSKELETAL: No cyanosis, or edema. Left hand weakness present, is using a gripping device provided by OT PSYCHIATRIC: Pt Alert and oriented x3, no overt signs of depression and/or anxiety. Pleasant and cooperative. Procedures 09/15/2016 bronchoscopy 09/11/2016 bronchoscopy 09/10/2016 left IJ central venous line 08/28/2016 subclavian 7 [place] triple-lumen catheter left-sided. 08/18/2016 right arterial line 08/18/2016 right IJ central line Medications and IVs Current Medications Medications (Trade) Dose Ordered Sig/Josephine Route Start Time Stop Time Status Last Admin (Synthroid) 200 mcg DAILY@06 PO 08/15/16 06:00 11/25/16 05:00 (Pravachol) 20 mg HS PO 08/15/16 21:00 11/24/16 22:41 (Tylenol) 650 mg Q6H PRN PO 08/14/16 23:15 11/17/16 15:36 (Morphine Inj) 2 mg Q2H PRN IV 08/14/16 23:15 11/24/16 22:49 (Tears Naturale Opth Soln) 1 drop TID EACH EYE 08/15/16 09:00 11/25/16 09:45 (Zofran Inj) 4 mg Q6H PRN IV 08/14/16 23:15 Miscellaneous Information 1 Q361D XX 08/14/16 23:15 (Chlorhexidine 2% Cloth) Taper DAILY@04 TOP 08/15/16 04:00 08/11/17 03:59 10/31/16 04:00 (Chlorhexidine 2% Cloth) 3 pack UNSCH PRN TOP 08/14/16 23:15 (Beneprotein Powder) 2 pack TID G-TUBE 08/15/16 09:00 11/20/16 08:09 (D50w (Vial) Inj) 25 ml UNSCH PRN IV PUSH 08/16/16 09:15 (NS Flush) DAILY IVF 09/11/16 09:00 11/25/16 09:45 (Mannitol Inj) 12.5 gm UNSCH PRN IV 09/20/16 10:30 10/05/16 09:40 (Albumin 25% Inj) 25 gm UNSCH PRN IV 09/20/16 10:30 10/10/16 10:10 (NS Flush) 5 ml UNSCH PRN IV FLUSH 09/20/16 10:30 09/21/16 13:24 (Heparin Inj) UNSCH PRN .XX 09/20/16 10:30 10/12/16 10:48 (Gentamicin (Dialysis) Inj) 20 mg UNSCH PRN IV 09/20/16 10:30 10/14/16 12:35 (Zofran Inj) 4 mg UNSCH PRN IV 09/20/16 10:30 (Tylenol) 650 mg UNSCH PRN PO 09/20/16 10:30 (Benadryl) 25 mg UNSCH PRN PO 09/20/16 10:30 11/24/16 14:02 (Nitrostat Sl) 0.4 mg UNSCH PRN SL 09/20/16 10:30 (Gelfoam 12 Mm/7 Mm Top) 1 foam UNSCH PRN TOP 09/20/16 10:30 (Eucerin Cream) 1 applic BID TOPICAL 09/27/16 21:00 11/25/16 09:46 (SEROquel) 75 mg Q8HR PO 09/28/16 14:00 11/25/16 14:15 (NS Flush) UNSCH PRN IVF 09/29/16 12:45 11/22/16 21:58 (Heparin Inj) UNSCH PRN IV FLUSH 09/29/16 12:45 (Melatonin) 5 mg HS PO 10/07/16 21:00 11/24/16 22:41 (Ativan Inj) 1 mg Q6H PRN IV PUSH 10/15/16 11:45 11/11/16 22:23 (Nitroglycerin 2% Oint) 2 inch Q6HR PRN TOPICAL 10/21/16 13:15 (Levsin Liq) 0.125 mg Q4H PRN PO 10/26/16 12:30 11/13/16 05:27 (Sharlene-Colace) 2 tab BID PO 11/09/16 13:00 11/25/16 09:43 (Milk Of Magnesia Liq) 30 ml Q6H PRN PO 11/09/16 13:00 (Coumadin) 6 mg DAILY@16 PO 11/13/16 16:00 11/25/16 17:54 (Lopressor) 25 mg Q8HR PO 11/16/16 14:00 11/25/16 14:15 Famotidine 20 mg 20 mg BID PO 11/17/16 09:15 11/25/16 09:43 (Coumadin Consult Pharmacy) 0 ml @ 0 mls/hr UNSCH OTHER 11/18/16 09:30 Urinary Catheter: Yes Assessment to: Continue Miller insert reason: Prolonged Immobilization Date of Insertion: October 21, 2016 A/P Assessment and Plan 56-year-old female admitted with respiratory failure and pneumonia, now with chronic tracheostomy and chronic respiratory failure. Acute toxic metabolic encephalopathy Critical care myopathy Agitated delirium -Resolved -Seroquel 75 mg every 8 hours for agitation -Melatonin 5mg po qHS for insomnia -Acetaminophen for fever/pain Acute on chronic hypercapnic and hypoxemic respiratory failure Pneumonia community-acquired, now with HCAP with carbapenem-resistant pseudomonas and ESBL Klebsiella VAP. 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 -Colistin nebs stop date 11/09 -ID following follow cultures -History of cultures: Blood cultures 08/28: NGTD C Diff negative 08/28. Lines changed 08/28. Sputum 08/30 - Pseudomonas Sputum 09/02 PSAE, resistant to carbapenem, intermediate to Levaquin. 09/07 - urine -Maribell Guilliermondii 09/07 - blood cultures 2 - no growth 09/09 - urine -strep viridans, Maribell parapsilosis 09/10 - blood cultures 2 -no growth 09/11 - broch washings -no growth to date 09/12 - urine -Maribell glabrata and parapsilosis 09/16 - blood cultures 2 - pending 09/16 - sputum -no growth 09/16 - urine -Maribell glabrata and parapsilosis 10/02 - blood cultures 2 - staph epi 10/02 - urine - ESBL positive Klebsiella 10/04 - blood cultures 2 -no growth 10/05 - blood cultures 2 -no growth 10/17 - blood cultures -no growth 10/17 - sputum -Klebsiella ESBL positive and Stenotrophomonas maltophilia 10/17 - urine -C glabrata 10/21/ 10/22 - urine - ESBL positive Klebsiella Left IJ/subclavian nonocclusive thrombus 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 Initiated care with sharlene-colace 2 tabs BID and MOM 30 ml q 6 hrs -Pt with two bowel movements within past 24 hours. -Resolved Pruritus -Pt to use Eucerin for itching and if that does not relieve it Benadryl is available. GI prophylaxis -famotidine 20 mg BID DVT prophylaxis -Coumadin Right lateral malleolus wound: -Wound care saw pt on 11/20/16 -Recommendations noted in report. Lines: Peripheral IV. - Trach 09/15 - Right Permacath placed 09/29 Case discussed with pt, RN, and Dr. Zazueta. Discharge Planning Case management following [id number] is likely needed Alessandro Coyle Jr. Nov 25, 2016 18:45
[2016-11-25] MEDS: MORPHINE SULFATE 4 MG/ML INJ IV PRN (22:23)
[2016-11-25] MEDS: PRAVASTATIN SOD 20 MG TAB PO SCH (22:25)
[2016-11-25] MEDS: MELATONIN 5 MG TAB PO SCH (22:26)
[2016-11-26] VITALS (7 sets, daily range): BP systolic 81–139; BP diastolic 57–83; PULSE 75–92; RESP 20; TEMP 95.6–97.7; O2SAT 96–99
[2016-11-26] MEDS: CHLORHEXIDINE GLUCONATE 2 % 1 PACK (2 CLOTHS) TOP SCH ×2 (04:00→22:58)
[2016-11-26] MEDS: QUEtiapine FUMARATE 25 MG TAB PO SCH ×3 (05:27→22:34)
[2016-11-26] MEDS: METOPROLOL TARTRATE 25 MG TAB PO SCH ×3 (05:27→22:34)
[2016-11-26] MEDS: LEVOTHYROXINE SODIUM 200 MCG TAB PO SCH (05:27)
[2016-11-26] MEDS: BENEPROTEIN POWDER 1 PACK G-TUBE SCH ×3 (09:00→18:00)
[2016-11-26] MEDS: SODIUM CHLORIDE 0.9% FLUSH 10 ML FLUSH IVF SCH (09:00)
[2016-11-26] MEDS: FAMOTIDINE 20 MG TAB PO SCH ×2 (09:00→22:33)
[2016-11-26] MEDS: DOCUSATE SODIUM 50 MG/SENNA 8.6 MG TAB PO SCH ×2 (09:00→21:00)
[2016-11-26] MEDS: EUCERIN CREAM 120 GM JAR TOPICAL SCH ×2 (09:00→22:36)
[2016-11-26 09:44] LABS: HEMATOCRIT 33.8 % (35.0-46.0); MEAN CELL VOLUME 84.5 FL (80.0-100.0); MEAN CORPUSCULAR HEMOGLOBIN 26.9 PG (27.0-34.0); MEAN CORPUSCULAR HGB CONC 31.8 % (32.0-36.0); PLATELET COUNT 309 TH/MM3 (150-450); RED CELL DISTRIBUTION WIDTH 16.8 % (11.6-17.2); REVIEW FLAG FINAL; WHITE BLOOD COUNT 7.4 TH/MM3 (4.0-11.0)
[2016-11-26 09:54] LABS: APTT (PATIENT) 39.4 SEC (24.3-30.1)
[2016-11-26 09:57] LABS: INTERNATIONAL NORMALIZED RATIO 2.1 RATIO; PROTHROMBIN TIME - PATIENT 23.8 SEC (9.8-11.6)
[2016-11-26] MEDS: ARTIFICIAL TEARS OPTH SOLN 15 ML BTL EACH EYE SCH ×3 (10:00→18:00)
--- NOTE | 2016-11-26 15:56 | HHI.PR ---
Subjective Remarks Follow up on patient with acute on chronic respiratory failure s/p tracheostomy. Pt T-Tube capped. Patient seen and examined, lying a bed comfortably. Speaking softly. she said she may be decannulated on Sunday. Noted she continues to have left hand pain using device provided by OT. Pt spoke of not doing well in PT and having weak legs; tearful when speaking about "possibly never walking again." No other complaints noted or reported by patient. Pt denied fever, cough, shortness of breath, NVD, constipation, sore throat, bloody urine or stool. Per RN (Howard) no new acute complaints over night or since start of shift. Objective Vitals Vital Signs Date Time Temp Pulse Resp B/P Pulse Ox O2 Delivery O2 Flow Rate FiO2 11/26/16 11:24 97.7 88 20 112/75 99 11/26/16 09:33 99 Nasal Cannula 3.00 11/26/16 08:11 95.6 75 20 104/62 99 11/26/16 00:00 96.0 84 20 129/73 96 11/25/16 22:46 Trach Collar 3.00 35 11/25/16 20:00 97.3 87 18 113/55 97 11/25/16 16:28 96.0 100 18 117/79 96 I/O 11/25/16 11/25/16 11/25/16 11/26/16 11/26/16 11/26/16 07:00 15:00 23:00 07:00 15:00 23:00 Intake Total 29 ml 476 ml 64 ml Output Total 2200 ml 925 ml 850 ml Balance -2171 ml -449 ml -786 ml Intake Oral 476 ml 64 ml IV Total 29 ml Output Urine Total 2200 ml 925 ml 850 ml # Bowel Movements 2 1 1 Result Diagram: 11/26/16821 Objective Remarks GENERAL: Pt laying a bed, t-tube in place capped, pt speaking, NAD. SKIN: Warm and dry. Wound noted on right lateral malleolus bandaged and covered with gauze. HEAD: Normocephalic. EYES: No scleral icterus. No injection or drainage. NECK: Supple, trachea midline. No lymphadenopathy. CARDIOVASCULAR: Regular rate and rhythm without murmurs, gallops, or rubs. RESPIRATORY: Breath sounds equal bilaterally and without rhonchi or wheezes. No accessory muscle use. GASTROINTESTINAL: Abdomen soft, non-tender, nondistended. MUSCULOSKELETAL: No cyanosis, or edema. Left hand weakness present, is using a gripping device provided by OT PSYCHIATRIC: Pt Alert and oriented x3. Pt tearful and sad. Pleasant and cooperative. Procedures 09/15/2016 bronchoscopy 09/11/2016 bronchoscopy 09/10/2016 left IJ central venous line 08/28/2016 subclavian 7 [place] triple-lumen catheter left-sided. 08/18/2016 right arterial line 08/18/2016 right IJ central line Medications and IVs Current Medications Medications (Trade) Dose Ordered Sig/Josephine Route Start Time Stop Time Status Last Admin (Synthroid) 200 mcg DAILY@06 PO 08/15/16 06:00 11/26/16 05:27 (Pravachol) 20 mg HS PO 08/15/16 21:00 11/25/16 22:25 (Tylenol) 650 mg Q6H PRN PO 08/14/16 23:15 11/17/16 15:36 (Morphine Inj) 2 mg Q2H PRN IV 08/14/16 23:15 11/25/16 22:23 (Tears Naturale Opth Soln) 1 drop TID EACH EYE 08/15/16 09:00 11/26/16 10:00 (Zofran Inj) 4 mg Q6H PRN IV 08/14/16 23:15 Miscellaneous Information 1 Q361D XX 08/14/16 23:15 (Chlorhexidine 2% Cloth) Taper DAILY@04 TOP 08/15/16 04:00 08/11/17 03:59 10/31/16 04:00 (Chlorhexidine 2% Cloth) 3 pack UNSCH PRN TOP 08/14/16 23:15 (Beneprotein Powder) 2 pack TID G-TUBE 08/15/16 09:00 11/20/16 08:09 (D50w (Vial) Inj) 25 ml UNSCH PRN IV PUSH 08/16/16 09:15 (NS Flush) DAILY IVF 09/11/16 09:00 11/25/16 09:45 (Mannitol Inj) 12.5 gm UNSCH PRN IV 09/20/16 10:30 10/05/16 09:40 (Albumin 25% Inj) 25 gm UNSCH PRN IV 09/20/16 10:30 10/10/16 10:10 (NS Flush) 5 ml UNSCH PRN IV FLUSH 09/20/16 10:30 09/21/16 13:24 (Heparin Inj) UNSCH PRN .XX 09/20/16 10:30 10/12/16 10:48 (Gentamicin (Dialysis) Inj) 20 mg UNSCH PRN IV 09/20/16 10:30 10/14/16 12:35 (Zofran Inj) 4 mg UNSCH PRN IV 09/20/16 10:30 (Tylenol) 650 mg UNSCH PRN PO 09/20/16 10:30 (Benadryl) 25 mg UNSCH PRN PO 09/20/16 10:30 11/24/16 14:02 (Nitrostat Sl) 0.4 mg UNSCH PRN SL 09/20/16 10:30 (Gelfoam 12 Mm/7 Mm Top) 1 foam UNSCH PRN TOP 09/20/16 10:30 (Eucerin Cream) 1 applic BID TOPICAL 09/27/16 21:00 11/25/16 22:27 (SEROquel) 75 mg Q8HR PO 09/28/16 14:00 11/26/16 05:27 (NS Flush) UNSCH PRN IVF 09/29/16 12:45 11/22/16 21:58 (Heparin Inj) UNSCH PRN IV FLUSH 09/29/16 12:45 (Melatonin) 5 mg HS PO 10/07/16 21:00 11/25/16 22:26 (Ativan Inj) 1 mg Q6H PRN IV PUSH 10/15/16 11:45 11/11/16 22:23 (Nitroglycerin 2% Oint) 2 inch Q6HR PRN TOPICAL 10/21/16 13:15 (Levsin Liq) 0.125 mg Q4H PRN PO 10/26/16 12:30 11/13/16 05:27 (Sharlene-Colace) 2 tab BID PO 11/09/16 13:00 11/25/16 09:43 (Milk Of Magnesia Liq) 30 ml Q6H PRN PO 11/09/16 13:00 (Coumadin) 6 mg DAILY@16 PO 11/13/16 16:00 11/25/16 17:54 (Lopressor) 25 mg Q8HR PO 11/16/16 14:00 11/26/16 05:27 Famotidine 20 mg 20 mg BID PO 11/17/16 09:15 11/26/16 09:00 (Coumadin Consult Pharmacy) 0 ml @ 0 mls/hr UNSCH OTHER 11/18/16 09:30 Urinary Catheter: Yes Assessment to: Continue Miller insert reason: Prolonged Immobilization Date of Insertion: October 21, 2016 A/P Assessment and Plan 56-year-old female admitted with respiratory failure and pneumonia, now with chronic tracheostomy and chronic respiratory failure. Acute toxic metabolic encephalopathy Critical care myopathy Agitated delirium -Resolved -Seroquel 75 mg every 8 hours for agitation -Melatonin 5mg po qHS for insomnia -Acetaminophen for fever/pain Acute on chronic hypercapnic and hypoxemic respiratory failure Pneumonia community-acquired, now with HCAP with carbapenem-resistant pseudomonas and ESBL Klebsiella VAP. Probable JOE -Tracheostomy present -Continue CPAP -Pulmonary toilet -Pulmonology following -Possible decannulation on 11/27/16 if pt stable. Hypertension Dyslipidemia -Continue Lopressor -When necessary labetalol -When necessary hydralazine -When necessary Nitropaste -Continue pravastatin Acute kidney injury - requiring hemodialysis -Follow I's and O's -Nephrology following -Dialysis presently on hold Elevated transaminases Cholelithiasis -Twice a day Pepcid -Follow transaminases -Follow clinically -No reports of abdominal pain today Pseudomonas pneumonia Funguria, Maribell glabrata and parapsilosis. -Colistin nebs stop date 11/09 -ID following follow cultures -History of cultures: Blood cultures 08/28: NGTD C Diff negative 08/28. Lines changed 08/28. Sputum 08/30 - Pseudomonas Sputum 09/02 PSAE, resistant to carbapenem, intermediate to Levaquin. 09/07 - urine -Maribell Guilliermondii 09/07 - blood cultures 2 - no growth 09/09 - urine -strep viridans, Maribell parapsilosis 09/10 - blood cultures 2 -no growth 09/11 - broch washings -no growth to date 09/12 - urine -Maribell glabrata and parapsilosis 09/16 - blood cultures 2 - pending 09/16 - sputum -no growth 09/16 - urine -Mariblel glabrata and parapsilosis 10/02 - blood cultures 2 - staph epi 10/02 - urine - ESBL positive Klebsiella 10/04 - blood cultures 2 -no growth 10/05 - blood cultures 2 -no growth 10/17 - blood cultures -no growth 10/17 - sputum -Klebsiella ESBL positive and Stenotrophomonas maltophilia 10/17 - urine -C glabrata 10/21/ 10/22 - urine - ESBL positive Klebsiella Left IJ/subclavian nonocclusive thrombus 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 Initiated care with sharlene-colace 2 tabs BID and MOM 30 ml q 6 hrs -Pt with two bowel movements within past 24 hours. -Resolved Pruritus -Pt to use Eucerin for itching and if that does not relieve it Benadryl is available. GI prophylaxis -famotidine 20 mg BID DVT prophylaxis -Coumadin Right lateral malleolus wound: -Wound care saw pt on 11/20/16 -Recommendations noted in report. Lines: Peripheral IV. - Trach 09/15 - Right Permacath placed 09/29 Case discussed with pt, RN (Howard), and Dr. Zazueta. Discharge Planning Case management following [id number] is likely needed Alessandro Coyle Jr. Nov 26, 2016 15:56
[2016-11-26] MEDS: WARFARIN SOD 6 MG TAB PO SCH (16:02)
[2016-11-26] MEDS: MELATONIN 5 MG TAB PO SCH (22:34)
[2016-11-26] MEDS: PRAVASTATIN SOD 20 MG TAB PO SCH (22:34)
[2016-11-26] MEDS: MORPHINE SULFATE 4 MG/ML INJ IV PRN (22:39)
[2016-11-27] VITALS (8 sets, daily range): BP systolic 97–130; BP diastolic 60–83; PULSE 76–106; RESP 18–20; TEMP 95.6–97.8; O2SAT 95–100
[2016-11-27] MEDS: METOPROLOL TARTRATE 25 MG TAB PO SCH ×3 (06:00→21:42)
[2016-11-27] MEDS: LEVOTHYROXINE SODIUM 200 MCG TAB PO SCH (06:23)
[2016-11-27] MEDS: QUEtiapine FUMARATE 25 MG TAB PO SCH ×3 (06:23→21:41)
[2016-11-27] MEDS: DOCUSATE SODIUM 50 MG/SENNA 8.6 MG TAB PO SCH ×2 (08:44→21:41)
[2016-11-27] MEDS: BENEPROTEIN POWDER 1 PACK G-TUBE SCH ×3 (08:44→16:12)
[2016-11-27] MEDS: FAMOTIDINE 20 MG TAB PO SCH ×2 (08:47→21:41)
[2016-11-27] MEDS: EUCERIN CREAM 120 GM JAR TOPICAL SCH ×2 (08:48→21:42)
[2016-11-27] MEDS: ARTIFICIAL TEARS OPTH SOLN 15 ML BTL EACH EYE SCH ×3 (08:48→16:12)
[2016-11-27] MEDS: SODIUM CHLORIDE 0.9% FLUSH 10 ML FLUSH IVF SCH (08:48)
[2016-11-27 08:53] LABS: APTT (PATIENT) 39.4 SEC (24.3-30.1); INTERNATIONAL NORMALIZED RATIO 2.3 RATIO; PROTHROMBIN TIME - PATIENT 26.3 SEC (9.8-11.6)
--- NOTE | 2016-11-27 09:35 | HHI.PR ---
Subjective Remarks Follow up on patient with acute on chronic respiratory failure s/p tracheostomy. Patient seen and examined, lying in bed comfortably with trach capped, speech clear. Alert and oriented x 3. Expressing motivation to get better. Denies any new acute complaints overnight. Awaiting decannulation for tomorrow. Tolerating PO intake. Denies any recent fever, chills, cough, shortness of breath, ab pain, n/v, diarrhea or dysuria. Objective Vitals Vital Signs Date Time Temp Pulse Resp B/P Pulse Ox O2 Delivery O2 Flow Rate FiO2 11/27/16 09:20 96.9 98 18 130/83 96 11/27/16 06:15 76 102/60 11/27/16 04:00 95.6 100 20 101/66 95 11/27/16 04:00 Nasal Cannula 3.00 Humidified 11/27/16 00:00 97.7 86 18 97/64 98 11/27/16 00:00 Nasal Cannula 3.00 Humidified 11/26/16 22:30 78 116/82 11/26/16 20:00 Nasal Cannula 3.00 Humidified 11/26/16 20:00 97.2 80 20 81/57 96 11/26/16 16:47 96.6 92 20 139/83 97 11/26/16 11:24 97.7 88 20 112/75 99 11/26/16 09:40 97 Nasal Cannula 3.00 I/O 11/26/16 11/26/16 11/26/16 11/27/16 11/27/16 11/27/16 07:00 15:00 23:00 07:00 15:00 23:00 Intake Total 64 ml 354 ml Output Total 850 ml 575 ml 1000 ml Balance -786 ml -221 ml -1000 ml Intake Oral 64 ml 354 ml Output Urine Total 850 ml 575 ml 1000 ml # Bowel Movements 1 Result Diagram: 11/26/16 0822 Imaging Last Impressions Chest X-Ray 11/13/16 0600 Signed Impressions: Service Date/Time: Sunday, November 13, 2016 06:04 - CONCLUSION: 1. Stable right lower lobe linear airspace disease, likely atelectasis. 2. No interval change. Kel Stone MD Central Venous Line 10/20/16 0000 Signed Impressions: Service Date/Time: Thursday, October 20, 2016 00:00 - CONCLUSION: Uncomplicated Permcath removal. Didier Zhang MD Catheter Placement X-Ray 09/29/16 1223 Signed Impressions: Service Date/Time: Thursday, September 29, 2016 12:31 - CONCLUSION: Vas-Cath to PermCath exchange as detailed above. Taco Haas Jr., MD Renal Ultrasound 09/17/16 0000 Signed Impressions: Service Date/Time: Saturday, September 17, 2016 13:31 - CONCLUSION: Negative renal sonogram. Taco Davidson MD Upper Extremity Ultrasound 09/14/16 0000 Signed Impressions: Service Date/Time: August 08:32 - CONCLUSION: There is thrombus within the left subclavian and internal jugular veins. Danyel Escalante MD Lower Extremity Ultrasound 09/13/16 0000 Signed Impressions: Service Date/Time: Tuesday, September 13, 2016 22:33 - CONCLUSION: Normal examination. Leonides Mason MD Liver Ultrasound 09/08/16 0000 Signed Impressions: Service Date/Time: Thursday, September 08, 2016 08:45 - CONCLUSION: 1. Cholelithiasis with distended gallbladder. However, there are no associated findings present to diagnose acute cholecystitis. If there is persistent clinical concern for acute cholecystitis could evaluate for cystic duct obstruction with hepatobiliary scintigraphy. 2. Hepatomegaly with very heterogeneous echotexture and steatosis. Dejan Allison MD Gall Bladder Ultrasound 08/29/16 0000 Signed Impressions: Service Date/Time: Monday, August 29, 2016 15:21 - CONCLUSION: 1. Hepatomegaly with heterogeneous echotexture throughout the liver. 2. There is a large echogenic area near the neck of the gallbladder suggestive of a stone, but despite its large size, demonstrates no acoustic shadowing in any of the views. Taco Davidson MD CT Angiography 08/15/16 0000 Signed Impressions: Service Date/Time: Monday, August 15, 2016 02:33 - CONCLUSION: 1. No evidence for pulmonary embolism. 2. Multifocal consolidation greatest in the right lower lobe and associated adenopathy. Terry Estrada MD Objective Remarks GENERAL: Well-nourished, well-developed patient in NAD. s/p tracheostomy. Trach capped. Lying in hospital bed. Awake and alert. Following commands. SKIN: Warm and dry. No rash. HEENT: Normocephalic. Atraumatic. CARDIOVASCULAR: Regular rate and rhythm. S1, S2 noted. No murmur appreciated. RESPIRATORY: Trach collar in place. No accessory muscle use. Clear to auscultation. Breath sounds equal bilaterally. GASTROINTESTINAL: Abdomen soft, non-tender, nondistended. Normoactive bowel sounds x4. MUSCULOSKELETAL: No obvious deformities. Extremities without clubbing, cyanosis , or edema. NEUROLOGICAL: Awake and alert. Able to move all extremities. Left upper extremity weakness noted, 3/5. Right upper extremity 5/5. No focal neurologic findings appreciated. Procedures 09/15/2016 bronchoscopy 09/11/2016 bronchoscopy 09/10/2016 left IJ central venous line 08/28/2016 subclavian 7 [place] triple-lumen catheter left-sided. 08/18/2016 right arterial line 08/18/2016 right IJ central line Urinary Catheter: Yes Assessment to: Continue Miller insert reason: Prolonged Immobilization Date of Insertion: Nov 21, 2016 A/P Assessment and Plan 56-year-old female admitted with respiratory failure and pneumonia, now with chronic tracheostomy and chronic respiratory failure. Acute toxic metabolic encephalopathy Critical care myopathy Agitated delirium -Resolved -Seroquel 75 mg every 8 hours for agitation -Melatonin 5mg po qHS for insomnia -Acetaminophen for fever/pain Hypertension, chronic Dyslipidemia, chronic - BP well controlled. Will continue Metoprolol, notice hold parameters. -Continue pravastatin. Acute kidney injury, resolved -Follow I's and O's -Nephrology following -Dialysis presently on hold - Creatinine much improved. Elevated transaminases, resolved. Cholelithiasis - Follow clinically Acute on chronic hypercapnic and hypoxemic respiratory failure Pseudomonas aeruginosa and klebsiella ESBL positive pneumonia Probable JOE -Tracheostomy present, trach capped, on supplemental O2. -Continue CPAP at night if sats drop <92%. -Pulmonary toilet, Continue Duonebs -Pulmonology following, appreciate input. -Colistin nebs stop date 11/14/2016 -History of cultures: Blood cultures 08/28: NGTD C Diff negative 08/28. Lines changed 08/28. Sputum 08/30 - Pseudomonas Sputum 09/02 PSAE, resistant to carbapenem, intermediate to Levaquin. 09/07 - urine -Maribell Guilliermondii 09/07 - blood cultures 2 - no growth 09/09 - urine -strep viridans, Maribell parapsilosis 09/10 - blood cultures 2 -no growth 09/11 - broch washings -no growth to date 09/12 - urine -Maribell glabrata and parapsilosis 09/16 - blood cultures 2 - pending 09/16 - sputum -no growth 09/16 - urine -Maribell glabrata and parapsilosis 10/02 - blood cultures 2 - staph epi 10/02 - urine - ESBL positive Klebsiella 10/04 - blood cultures 2 -no growth 10/05 - blood cultures 2 -no growth 10/17 - blood cultures -no growth 10/17 - sputum -Klebsiella ESBL positive and Stenotrophomonas maltophilia 10/17 - urine -C glabrata 10/21/ 10/22 - urine - ESBL positive Klebsiella 10/24 Sputum culture for pseudomonas aeruginosa nad klebsiella pneumoniae ESBL + Left IJ/subclavian nonocclusive thrombus 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 Pharmacy consult for monitoring. -Continue to follow INR. Type 2 Diabetes mellitus, chronic - Continue ACCU checks, insulin sliding scale, cover as needed. - Follow blood sugars - Continue diabetic diet Right lateral malleolus wound: - Wound care saw pt on 11/20/16 Hypothyroidism, chronic: Synthroid 200mcg daily GI prophylaxis: Protonix 40mg Q12 DVT prophylaxis: Coumadin Full code. Discharge Planning Last CM note: 11/23 PT REMAINS [facility] PENDING FOR DC NEEDS, NOT MEETING DC CRITERIA , MICHOACANO RNCM Nikki Martin Nov 27, 2016 09:35
--- NOTE | 2016-11-27 13:00 | HHI.PR ---
Subjective Remarks Trach is capped, and on N/C 3L. No need for suctioning more than twice a day Taking her diet well . Objective Vital Signs Date Time Temp Pulse Resp B/P Pulse Ox O2 Delivery O2 Flow Rate FiO2 11/27/16 12:34 96.6 106 18 123/79 97 11/27/16 10:10 99 Nasal Cannula 3.00 11/27/16 09:20 96.9 98 18 130/83 96 11/27/16 06:15 76 102/60 11/27/16 04:00 95.6 100 20 101/66 95 11/27/16 04:00 Nasal Cannula 3.00 Humidified 11/27/16 00:00 97.7 86 18 97/64 98 11/27/16 00:00 Nasal Cannula 3.00 Humidified 11/26/16 22:30 78 116/82 11/26/16 20:00 Nasal Cannula 3.00 Humidified 11/26/16 20:00 97.2 80 20 81/57 96 11/26/16 16:47 96.6 92 20 139/83 97 I/O 11/26/16 11/26/16 11/26/16 11/27/16 11/27/16 11/27/16 07:00 15:00 23:00 07:00 15:00 23:00 Intake Total 64 ml 354 ml Output Total 850 ml 575 ml 1000 ml Balance -786 ml -221 ml -1000 ml Intake Oral 64 ml 354 ml Output Urine Total 850 ml 575 ml 1000 ml # Bowel Movements 1 Result Diagram: 11/26/16 0822 Objective Remarks This is an obese middle-aged white female who is alert HEENT: Head normocephalic.throat clear. Neck: No bruits, no thyroid enlargement, no lymphadenopathy. Chest: Decreased breath sounds at bases.wheeze scattered Heart: Heart sounds were regular. S1-S2 no murmur, no S3. Abdomen: Soft, benign. No masses, or tenderness. Bowel sounds are active. Extremities:No edema . Neuro :Moves all limbs.no deficits. Alert and Oriented Assessment and Plan Assessment and Plan IMPRESSION 1. Acute hypercapnic respiratory failure.Resolving 2. Pulmonary edema. 3. Drug rash 4. Obstructive sleep apnea syndrome 5. Hypertension 6. Hypothyroidism. 7. MIKE Plan : 1. Cap trach all the time 2. Trach suctioning prn. 3. Nebs qid , duoneb. 4. Rehab placement 5. Cont N/C o2 3 L. 6. Will Decannulate in am if stable Abimael Beck MD Nov 27, 2016 13:00
[2016-11-27] MEDS: WARFARIN SOD 6 MG TAB PO SCH (16:14)
[2016-11-27] MEDS: PRAVASTATIN SOD 20 MG TAB PO SCH (21:41)
[2016-11-27] MEDS: MELATONIN 5 MG TAB PO SCH (21:41)
[2016-11-27] MEDS: MORPHINE SULFATE 4 MG/ML INJ IV PRN (21:53)
[2016-11-28 01:29] VITALS: BP 100/55; PULSE 84; RESP 20; TEMP 95.6; O2SAT 97
[2016-11-28] MEDS: CHLORHEXIDINE GLUCONATE 2 % 1 PACK (2 CLOTHS) TOP SCH (03:22)
[2016-11-28] MEDS: QUEtiapine FUMARATE 25 MG TAB PO SCH ×3 (05:50→22:11)
[2016-11-28] MEDS: LEVOTHYROXINE SODIUM 200 MCG TAB PO SCH (05:50)
[2016-11-28] MEDS: METOPROLOL TARTRATE 25 MG TAB PO SCH ×3 (05:50→22:00)
[2016-11-28 07:33] LABS: HEMATOCRIT 34.3 % (35.0-46.0); MEAN CELL VOLUME 84.8 FL (80.0-100.0); MEAN CORPUSCULAR HEMOGLOBIN 27.4 PG (27.0-34.0); MEAN CORPUSCULAR HGB CONC 32.3 % (32.0-36.0); PLATELET COUNT 284 TH/MM3 (150-450); RED BLOOD COUNT 4.05 MIL/MM3 (4.00-5.30); RED CELL DISTRIBUTION WIDTH 16.6 % (11.6-17.2); REVIEW FLAG FINAL; WHITE BLOOD COUNT 7.7 TH/MM3 (4.0-11.0)
[2016-11-28 07:36] LABS: APTT (PATIENT) 38.5 SEC (24.3-30.1)
[2016-11-28 08:00] VITALS: BP 98/68; PULSE 108; RESP 19; TEMP 98.9; O2SAT 98
[2016-11-28 08:29] VITALS: O2SAT 97
[2016-11-28] MEDS: BENEPROTEIN POWDER 1 PACK G-TUBE SCH ×3 (09:00→17:23)
[2016-11-28] MEDS: SODIUM CHLORIDE 0.9% FLUSH 10 ML FLUSH IVF SCH (09:00)
[2016-11-28] MEDS: DOCUSATE SODIUM 50 MG/SENNA 8.6 MG TAB PO SCH ×2 (09:00→21:00)
[2016-11-28] MEDS: EUCERIN CREAM 120 GM JAR TOPICAL SCH ×2 (09:00→21:00)
[2016-11-28] MEDS: ARTIFICIAL TEARS OPTH SOLN 15 ML BTL EACH EYE SCH ×3 (09:46→17:23)
[2016-11-28] MEDS: FAMOTIDINE 20 MG TAB PO SCH ×2 (09:47→22:11)
--- NOTE | 2016-11-28 10:39 | HHI.PR ---
Subjective Remarks Follow up on patient with acute on chronic respiratory failure s/p tracheostomy. Patient seen and examined sleeping in bed, awakens to voice. Verbal, speech clear. States she is nervous about decannulation today, patient reassured. Trach capped at the moment, on NC. Denies any recent fever, chills, cough, shortness of breath. Tolerating PO intake. Denies any abdominal pain, nausea or vomiting. Objective Vitals Vital Signs Date Time Temp Pulse Resp B/P Pulse Ox O2 Delivery O2 Flow Rate FiO2 11/28/16 10:00 98 Nasal Cannula 3.00 Humidified 11/28/16 08:29 97 Nasal Cannula 3.00 11/28/16 08:00 98.9 108 19 98/68 98 11/28/16 01:29 95.6 84 20 100/55 97 11/28/16 00:52 98 Nasal Cannula 3.00 Humidified 11/27/16 20:48 97.8 87 20 98/62 98 11/27/16 17:19 96.4 91 18 123/70 100 11/27/16 12:34 96.6 106 18 123/79 97 I/O 11/27/16 11/27/16 11/27/16 11/28/16 11/28/16 11/28/16 07:00 15:00 23:00 07:00 15:00 23:00 Intake Total 360 ml 1100 ml Output Total 1000 ml 600 ml Balance -1000 ml -240 ml 1100 ml Intake Oral 360 ml 1100 ml Output Urine Total 1000 ml 600 ml # Bowel Movements 1 Result Diagram: 11/28/16 0636 Imaging Last Impressions Chest X-Ray 11/13/16 0600 Signed Impressions: Service Date/Time: Sunday, November 13, 2016 06:04 - CONCLUSION: 1. Stable right lower lobe linear airspace disease, likely atelectasis. 2. No interval change. Kel Stone MD Central Venous Line 10/20/16 0000 Signed Impressions: Service Date/Time: Thursday, October 20, 2016 00:00 - CONCLUSION: Uncomplicated Permcath removal. Didier Zhang MD Catheter Placement X-Ray 09/29/16 1223 Signed Impressions: Service Date/Time: Thursday, September 29, 2016 12:31 - CONCLUSION: Vas-Cath to PermCath exchange as detailed above. Taco Haas Jr., MD Renal Ultrasound 09/17/16 Signed Impressions: Service Date/Time: Saturday, September 17, 2016 13:31 - CONCLUSION: Negative renal sonogram. Taco Davidson MD Upper Extremity Ultrasound 09/14/16 0000 Signed Impressions: Service Date/Time: August 08:32 - CONCLUSION: There is thrombus within the left subclavian and internal jugular veins. Danyel Escalante MD Lower Extremity Ultrasound 09/13/16 0000 Signed Impressions: Service Date/Time: Tuesday, September 13, 2016 22:33 - CONCLUSION: Normal examination. Leonides Mason MD Liver Ultrasound 09/08/16 Signed Impressions: Service Date/Time: Thursday, September 08, 2016 08:45 - CONCLUSION: 1. Cholelithiasis with distended gallbladder. However, there are no associated findings present to diagnose acute cholecystitis. If there is persistent clinical concern for acute cholecystitis could evaluate for cystic duct obstruction with hepatobiliary scintigraphy. 2. Hepatomegaly with very heterogeneous echotexture and steatosis. Dejan Allison MD Gall Bladder Ultrasound 08/29/16 Signed Impressions: Service Date/Time: Monday, August 29, 2016 15:21 - CONCLUSION: 1. Hepatomegaly with heterogeneous echotexture throughout the liver. 2. There is a large echogenic area near the neck of the gallbladder suggestive of a stone, but despite its large size, demonstrates no acoustic shadowing in any of the views. Taco Davidson MD CT Angiography 08/15/16 Signed Impressions: Service Date/Time: Monday, August 15, 2016 02:33 - CONCLUSION: 1. No evidence for pulmonary embolism. 2. Multifocal consolidation greatest in the right lower lobe and associated adenopathy. Terry Estrada MD Objective Remarks GENERAL: Well-nourished, well-developed patient in NAD. s/p tracheostomy. Trach capped. Lying in hospital bed. Awake and alert. Following commands. SKIN: Warm and dry. No rash. HEENT: Normocephalic. Atraumatic. CARDIOVASCULAR: Regular rate and rhythm. S1, S2 noted. No murmur appreciated. RESPIRATORY: Trach collar in place. No accessory muscle use. Clear to auscultation. Breath sounds equal bilaterally. GASTROINTESTINAL: Abdomen soft, non-tender, nondistended. Normoactive bowel sounds x4. MUSCULOSKELETAL: No obvious deformities. Extremities without clubbing, cyanosis , or edema. NEUROLOGICAL: Awake and alert. Able to move all extremities. Left upper extremity weakness noted, 3/5. Right upper extremity 5/5. No focal neurologic findings appreciated. Procedures 09/15/2016 bronchoscopy 09/11/2016 bronchoscopy 09/10/2016 left IJ central venous line 08/28/2016 subclavian 7 [place] triple-lumen catheter left-sided. 08/18/2016 right arterial line 08/18/2016 right IJ central line Urinary Catheter: Yes Assessment to: Continue Date of Insertion: Nov 21, 2016 A/P Assessment and Plan 56-year-old female admitted with respiratory failure and pneumonia, now with chronic tracheostomy and chronic respiratory failure. Acute toxic metabolic encephalopathy Critical care myopathy Agitated delirium - Resolved - Seroquel 75 mg every 8 hours for agitation - Melatonin 5mg po qHS for insomnia - Acetaminophen for fever/pain Hypertension, chronic Dyslipidemia, chronic - BP well controlled. Will continue Metoprolol, notice hold parameters. - Continue pravastatin. Acute kidney injury, resolved - Follow I's and O's. Adequate urine output. - Nephrology signed off, reconsult if needed. - Creatinine much improved, 0.83. Elevated transaminases, resolved. Cholelithiasis - Follow clinically Acute on chronic hypercapnic and hypoxemic respiratory failure Pseudomonas aeruginosa and klebsiella ESBL positive pneumonia Probable JOE -Tracheostomy present, trach capped, on supplemental O2. Plan for decannulation today. -Continue CPAP at night if sats drop <92%. -Pulmonary toilet, Continue Duonebs -Pulmonology following, appreciate input. -Colistin nebs stop date 11/14/2016 -History of cultures: Blood cultures 08/28: NGTD C Diff negative 08/28. Lines changed 08/28. Sputum 08/30 - Pseudomonas Sputum 09/02 PSAE, resistant to carbapenem, intermediate to Levaquin. 09/07 - urine -Maribell Guilliermondii 09/07 - blood cultures 2 - no growth 09/09 - urine -strep viridans, Maribell parapsilosis 09/10 - blood cultures 2 -no growth 09/11 - broch washings -no growth to date 09/12 - urine -Maribell glabrata and parapsilosis 09/16 - blood cultures 2 - pending 09/16 - sputum -no growth 09/16 - urine -Maribell glabrata and parapsilosis 10/02 - blood cultures 2 - staph epi 10/02 - urine - ESBL positive Klebsiella 10/04 - blood cultures 2 -no growth 10/05 - blood cultures 2 -no growth 10/17 - blood cultures -no growth 10/17 - sputum -Klebsiella ESBL positive and Stenotrophomonas maltophilia 10/17 - urine -C glabrata 10/21/ 10/22 - urine - ESBL positive Klebsiella 10/24 Sputum culture for pseudomonas aeruginosa nad klebsiella pneumoniae ESBL + Left IJ/subclavian nonocclusive thrombus 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 Pharmacy consult for monitoring. -Continue to follow INR. Type 2 Diabetes mellitus, chronic - Continue ACCU checks, insulin sliding scale, cover as needed. - Follow blood sugars - Continue diabetic diet Right lateral malleolus wound: - Wound care saw pt on 11/20/16 Hypothyroidism, chronic: Synthroid 200mcg daily GI prophylaxis: Protonix 40mg Q12 DVT prophylaxis: Coumadin Full code. Discharge Planning Last CM note: 11/23 PT REMAINS [facility] PENDING FOR DC NEEDS, NOT MEETING DC CRITERIA , MICHOACANO RNCM Nikki Martin Nov 28, 2016 10:38
[2016-11-28 12:00] VITALS: BP 120/87; PULSE 118; RESP 19; TEMP 98.4; O2SAT 95
--- NOTE | 2016-11-28 13:19 | HHI.PR ---
Subjective Remarks Trach is capped, and on N/C 3L. No need for suctioning. Overall doing well. Objective Vital Signs Date Time Temp Pulse Resp B/P Pulse Ox O2 Delivery O2 Flow Rate FiO2 11/28/16 12:00 98.4 118 19 120/87 95 11/28/16 10:00 98 Nasal Cannula 3.00 Humidified 11/28/16 08:29 97 Nasal Cannula 3.00 11/28/16 08:00 98.9 108 19 98/68 98 11/28/16 01:29 95.6 84 20 100/55 97 11/28/16 00:52 98 Nasal Cannula 3.00 Humidified 11/27/16 20:48 97.8 87 20 98/62 98 11/27/16 17:19 96.4 91 18 123/70 100 I/O 11/27/16 11/27/16 11/27/16 11/28/16 11/28/16 11/28/16 07:00 15:00 23:00 07:00 15:00 23:00 Intake Total 360 ml 1100 ml Output Total 1000 ml 600 ml Balance -1000 ml -240 ml 1100 ml Intake Oral 360 ml 1100 ml Output Urine Total 1000 ml 600 ml # Bowel Movements 1 Result Diagram: 11/28/16 0636 Objective Remarks This is an obese middle-aged white female who is alert HEENT: Head normocephalic.throat clear. Neck: No bruits, no thyroid enlargement, no lymphadenopathy. Chest: Decreased breath sounds at bases.occ wheeze scattered Heart: Heart sounds were regular. S1-S2 no murmur, no S3. Abdomen: Soft, benign. No masses, or tenderness. Bowel sounds are active. Extremities:No edema . Neuro :Moves all limbs.no deficits. Alert and Oriented Assessment and Plan Assessment and Plan IMPRESSION 1. Acute hypercapnic respiratory failure.Resolving 2. Pulmonary edema. 3. Drug rash 4. Obstructive sleep apnea syndrome 5. Hypertension 6. Hypothyroidism. 7. MIKE Plan : 1. D/C Trach 2. Clean and Dress Trach site. 3. Nebs qid , duoneb. 4. Rehab placement 5. Cont N/C o2 3 L. Abimael Beck MD Nov 28, 2016 13:19
[2016-11-28 16:00] VITALS: BP 99/71; PULSE 108; RESP 20; TEMP 98; O2SAT 95
[2016-11-28] MEDS: WARFARIN SOD 6 MG TAB PO SCH (16:12)
[2016-11-28 21:40] VITALS: BP 112/74; PULSE 94; RESP 19; TEMP 98; O2SAT 95
[2016-11-28] MEDS: PRAVASTATIN SOD 20 MG TAB PO SCH (22:11)
[2016-11-28] MEDS: MELATONIN 5 MG TAB PO SCH (22:12)
[2016-11-28] MEDS: MORPHINE SULFATE 4 MG/ML INJ IV PRN (22:13)
[2016-11-28] MEDS: SODIUM CHLORIDE 0.9% FLUSH 10 ML FLUSH IVF PRN (22:13)
[2016-11-29] VITALS (8 sets, daily range): BP systolic 102–118; BP diastolic 63–80; PULSE 80–99; RESP 18–23; TEMP 96.6–98.8; O2SAT 91–98
[2016-11-29] MEDS: METOPROLOL TARTRATE 25 MG TAB PO SCH ×4 (02:41→21:51)
[2016-11-29] MEDS: CHLORHEXIDINE GLUCONATE 2 % 1 PACK (2 CLOTHS) TOP SCH ×2 (02:41→21:58)
[2016-11-29] MEDS: QUEtiapine FUMARATE 25 MG TAB PO SCH ×3 (06:25→21:49)
[2016-11-29] MEDS: LEVOTHYROXINE SODIUM 200 MCG TAB PO SCH (06:25)
[2016-11-29] MEDS: BENEPROTEIN POWDER 1 PACK G-TUBE SCH ×3 (09:00→18:00)
[2016-11-29] MEDS: DOCUSATE SODIUM 50 MG/SENNA 8.6 MG TAB PO SCH ×2 (09:00→21:00)
[2016-11-29] MEDS: EUCERIN CREAM 120 GM JAR TOPICAL SCH ×2 (09:00→21:58)
--- NOTE | 2016-11-29 09:32 | HHI.PR ---
Subjective Remarks Follow up on patient with acute on chronic respiratory failure s/p tracheostomy. Patient seen and examined, awake, verbalizing, denies pain. Dressing to trach site, decannulated, tolerating well, minimal drainage. Tolerating PO intake. Continued supplemental O2. Denies any recent fever, chills , cough, shortness of breath, ab pain, n/v, diarrhea or dysuria. Objective Vitals Vital Signs Date Time Temp Pulse Resp B/P Pulse Ox O2 Delivery O2 Flow Rate FiO2 11/29/16 08:00 96.7 98 18 102/64 96 11/29/16 04:15 98.8 80 20 118/64 96 11/29/16 00:00 97.9 89 23 115/69 96 11/28/16 22:00 95 Nasal Cannula 3.00 11/28/16 21:40 98.0 94 19 112/74 95 11/28/16 16:00 98.0 108 20 99/71 95 11/28/16 12:00 98.4 118 19 120/87 95 11/28/16 10:00 98 Nasal Cannula 3.00 Humidified I/O 11/28/16 11/28/16 11/28/16 11/29/16 11/29/16 11/29/16 06:59 14:59 22:59 06:59 14:59 22:59 Intake Total 1100 ml 400 ml 450 ml Output Total 950 ml 500 ml 300 ml Balance 1100 ml -950 ml -100 ml 150 ml Intake Oral 1100 ml 400 ml 450 ml Output Urine Total 950 ml 500 ml 300 ml # Bowel Movements 1 0 0 Result Diagram: 11/28/16 0636 Imaging Last Impressions Chest X-Ray 11/13/16 0600 Signed Impressions: Service Date/Time: Sunday, November 13, 2016 06:04 - CONCLUSION: 1. Stable right lower lobe linear airspace disease, likely atelectasis. 2. No interval change. Kel Stone MD Central Venous Line 10/20/16 0000 Signed Impressions: Service Date/Time: Thursday, October 20, 2016 00:00 - CONCLUSION: Uncomplicated Permcath removal. Didier Zhang MD Catheter Placement X-Ray 09/29/16 1223 Signed Impressions: Service Date/Time: Thursday, September 29, 2016 12:31 - CONCLUSION: Vas-Cath to PermCath exchange as detailed above. Taco Haas Jr., MD Renal Ultrasound 09/17/16 Signed Impressions: Service Date/Time: Saturday, September 17, 2016 13:31 - CONCLUSION: Negative renal sonogram. Taco Davidson MD Upper Extremity Ultrasound 09/14/16 0000 Signed Impressions: Service Date/Time: August 08:32 - CONCLUSION: There is thrombus within the left subclavian and internal jugular veins. Danyel Escalante MD Lower Extremity Ultrasound 09/13/16 0000 Signed Impressions: Service Date/Time: Tuesday, September 13, 2016 22:33 - CONCLUSION: Normal examination. Leonides Mason MD Liver Ultrasound 09/08/16 0000 Signed Impressions: Service Date/Time: Thursday, September 08, 2016 08:45 - CONCLUSION: 1. Cholelithiasis with distended gallbladder. However, there are no associated findings present to diagnose acute cholecystitis. If there is persistent clinical concern for acute cholecystitis could evaluate for cystic duct obstruction with hepatobiliary scintigraphy. 2. Hepatomegaly with very heterogeneous echotexture and steatosis. Dejan Allison MD Gall Bladder Ultrasound 08/29/16 0000 Signed Impressions: Service Date/Time: Monday, August 29, 2016 15:21 - CONCLUSION: 1. Hepatomegaly with heterogeneous echotexture throughout the liver. 2. There is a large echogenic area near the neck of the gallbladder suggestive of a stone, but despite its large size, demonstrates no acoustic shadowing in any of the views. Taco Davidson MD CT Angiography 08/15/16 Signed Impressions: Service Date/Time: Monday, August 15, 2016 02:33 - CONCLUSION: 1. No evidence for pulmonary embolism. 2. Multifocal consolidation greatest in the right lower lobe and associated adenopathy. Terry Estrada MD Objective Remarks GENERAL: Well-nourished, well-developed patient in NAD. s/p tracheostomy. Decannulated, dressing intact, d/i. Lying in hospital bed. Awake and alert. Following commands. SKIN: Warm and dry. No rash. HEENT: Normocephalic. Atraumatic. CARDIOVASCULAR: Regular rate and rhythm. S1, S2 noted. No murmur appreciated. RESPIRATORY: Trach collar in place. No accessory muscle use. Clear to auscultation. Breath sounds equal bilaterally. GASTROINTESTINAL: Abdomen soft, non-tender, nondistended. Normoactive bowel sounds x4. MUSCULOSKELETAL: No obvious deformities. Extremities without clubbing, cyanosis , or edema. NEUROLOGICAL: Awake and alert. Able to move all extremities. Left upper extremity weakness noted, 3/5. Right upper extremity 5/5. No focal neurologic findings appreciated. Procedures 09/15/2016 bronchoscopy 09/11/2016 bronchoscopy 09/10/2016 left IJ central venous line 08/28/2016 subclavian 7 [place] triple-lumen catheter left-sided. 08/18/2016 right arterial line 08/18/2016 right IJ central line Urinary Catheter: Yes Assessment to: Continue Date of Insertion: Nov 21, 2016 A/P Assessment and Plan 56-year-old female admitted with respiratory failure and pneumonia, now with chronic tracheostomy and chronic respiratory failure. Acute toxic metabolic encephalopathy Critical care myopathy Agitated delirium - Resolved - Seroquel 75 mg every 8 hours for agitation - Melatonin 5mg po qHS for insomnia - Acetaminophen for fever/pain Hypertension, chronic Dyslipidemia, chronic - BP well controlled. Will continue Metoprolol, notice hold parameters. - Continue pravastatin. Acute kidney injury, resolved - Follow I's and O's. Adequate urine output. - Nephrology signed off, reconsult if needed. - Creatinine much improved, 0.83. Elevated transaminases, resolved. 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 Decannulated 11/28/16, on supplemental O2. -Continue CPAP at night if sats drop <92%. -Pulmonary toilet, Continue Duonebs -Pulmonology following, appreciate input. -Colistin nebs stop date 11/14/2016 -History of cultures: Blood cultures 08/28: NGTD C Diff negative 08/28. Lines changed 08/28. Sputum 08/30 - Pseudomonas Sputum 09/02 PSAE, resistant to carbapenem, intermediate to Levaquin. 09/07 - urine -Maribell Guilliermondii 09/07 - blood cultures 2 - no growth 09/09 - urine -strep viridans, Maribell parapsilosis 09/10 - blood cultures 2 -no growth 09/11 - broch washings -no growth to date 09/12 - urine -Maribell glabrata and parapsilosis 09/16 - blood cultures 2 - pending 09/16 - sputum -no growth 09/16 - urine -Maribell glabrata and parapsilosis 10/02 - blood cultures 2 - staph epi 10/02 - urine - ESBL positive Klebsiella 10/04 - blood cultures 2 -no growth 10/05 - blood cultures 2 -no growth 10/17 - blood cultures -no growth 10/17 - sputum -Klebsiella ESBL positive and Stenotrophomonas maltophilia 10/17 - urine -C glabrata 10/21/ 10/22 - urine - ESBL positive Klebsiella 10/24 Sputum culture for pseudomonas aeruginosa nad klebsiella pneumoniae ESBL + Left IJ/subclavian nonocclusive thrombus 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 Pharmacy consult for monitoring. -Continue to follow INR. Type 2 Diabetes mellitus, chronic - Continue ACCU checks, insulin sliding scale, cover as needed. - Follow blood sugars - Continue diabetic diet Right lateral malleolus wound: - Wound care saw pt on 11/20/16 Hypothyroidism, chronic: Synthroid 200mcg daily GI prophylaxis: Protonix 40mg Q12 DVT prophylaxis: Coumadin Full code. Discharge Planning Last CM note: 11/23 PT REMAINS [facility] PENDING FOR DC NEEDS, NOT MEETING DC CRITERIA , Nikki Hernandez Nov 29, 2016 09:32
[2016-11-29] MEDS: ARTIFICIAL TEARS OPTH SOLN 15 ML BTL EACH EYE SCH ×3 (10:06→18:49)
[2016-11-29] MEDS: FAMOTIDINE 20 MG TAB PO SCH ×2 (10:06→21:49)
[2016-11-29] MEDS: SODIUM CHLORIDE 0.9% FLUSH 10 ML FLUSH IVF SCH (10:07)
[2016-11-29 11:16] LABS: HEMATOCRIT 34.7 % (35.0-46.0); MEAN CELL VOLUME 83.8 FL (80.0-100.0); MEAN CORPUSCULAR HEMOGLOBIN 27.3 PG (27.0-34.0); MEAN CORPUSCULAR HGB CONC 32.6 % (32.0-36.0); PLATELET COUNT 312 TH/MM3 (150-450); RED BLOOD COUNT 4.15 MIL/MM3 (4.00-5.30); RED CELL DISTRIBUTION WIDTH 16.6 % (11.6-17.2); REVIEW FLAG FINAL; WHITE BLOOD COUNT 7.4 TH/MM3 (4.0-11.0)
[2016-11-29 11:24] LABS: INTERNATIONAL NORMALIZED RATIO 2.4 RATIO
--- NOTE | 2016-11-29 13:06 | HHI.PR ---
Subjective Remarks Trach is out and has a mild leak from trach site. and on N/C 3L. No need for suctioning. Overall doing well. talking . Objective Vital Signs Date Time Temp Pulse Resp B/P Pulse Ox O2 Delivery O2 Flow Rate FiO2 11/29/16 12:00 96.9 81 18 117/63 98 11/29/16 08:00 96.7 98 18 102/64 96 11/29/16 04:15 98.8 80 20 118/64 96 11/29/16 00:00 97.9 89 23 115/69 96 11/28/16 22:00 95 Nasal Cannula 3.00 11/28/16 21:40 98.0 94 19 112/74 95 11/28/16 16:00 98.0 108 20 99/71 95 I/O 11/28/16 11/28/16 11/28/16 11/29/16 11/29/16 11/29/16 07:00 15:00 23:00 07:00 15:00 23:00 Intake Total 1100 ml 400 ml 450 ml Output Total 950 ml 500 ml 300 ml Balance 1100 ml -950 ml -100 ml 150 ml Intake Oral 1100 ml 400 ml 450 ml Output Urine Total 950 ml 500 ml 300 ml # Bowel Movements 1 0 0 Result Diagram: 11/29/16 1003 Objective Remarks This is an obese middle-aged white female who is alert HEENT: Head normocephalic.throat clear. Neck: No bruits, no thyroid enlargement, and trach site has some redness. no lymphadenopathy. Chest: Decreased breath sounds at bases.occ wheeze scattered Heart: Heart sounds were regular. S1-S2 no murmur, no S3. Abdomen: Soft, benign. No masses, or tenderness. Bowel sounds are active. Extremities:No edema . Neuro :Moves all limbs.no deficits. Alert and Oriented Assessment and Plan Assessment and Plan IMPRESSION 1. Acute hypercapnic respiratory failure.Resolving 2. Pulmonary edema. 3. Drug rash 4. Obstructive sleep apnea syndrome 5. Hypertension 6. Hypothyroidism. 7. MIKE Plan : 1. Dress and clean trach site daily. 2. CXR in am 3. Nebs qid , duoneb. 4. Rehab placement 5. Cont N/C o2 3 Abimael Estrella MD Nov 29, 2016 13:06
[2016-11-29] MEDS: WARFARIN SOD 6 MG TAB PO SCH (15:18)
[2016-11-29] MEDS: MELATONIN 5 MG TAB PO SCH (21:50)
[2016-11-29] MEDS: PRAVASTATIN SOD 20 MG TAB PO SCH (21:50)
[2016-11-29] MEDS: MORPHINE SULFATE 4 MG/ML INJ IV PRN (21:59)
[2016-11-30] VITALS (7 sets, daily range): BP systolic 97–116; BP diastolic 57–78; PULSE 82–101; RESP 16–19; TEMP 96.9–98; O2SAT 95–98
--- NOTE | 2016-11-30 05:36 | RADRPT ---
EXAM DATE/TIME: 11/30/2016 05:02 [facility] COMPARISON: CHEST SINGLE AP, November 13, 2016, 6:04. INDICATIONS : Short of breath. MEDICAL HISTORY : Congestive heart failure. SURGICAL HISTORY : None. ENCOUNTER: Subsequent ACUITY: 2 months PAIN SCORE: Non-responsive. LOCATION: Bilateral chest FINDINGS: A single view of the chest demonstrates minimal right basilar subsegmental atelectasis. Heart normal in size. Osseous structures are intact. Tracheostomy tube removed. CONCLUSION: Minimal right basilar subsegmental atelectasis. Tyrel White MD on November 30, 2016 at 5:33 Board Certified Radiologist. This report was verified electronically.
[2016-11-30] MEDS: METOPROLOL TARTRATE 25 MG TAB PO SCH ×3 (06:00→20:38)
[2016-11-30] MEDS: LEVOTHYROXINE SODIUM 200 MCG TAB PO SCH (06:20)
[2016-11-30] MEDS: QUEtiapine FUMARATE 25 MG TAB PO SCH ×3 (06:20→20:38)
[2016-11-30] MEDS: BENEPROTEIN POWDER 1 PACK G-TUBE SCH ×3 (08:42→12:50)
[2016-11-30] MEDS: ARTIFICIAL TEARS OPTH SOLN 15 ML BTL EACH EYE SCH ×3 (08:43→12:50)
[2016-11-30] MEDS: DOCUSATE SODIUM 50 MG/SENNA 8.6 MG TAB PO SCH ×2 (08:52→20:38)
[2016-11-30] MEDS: SODIUM CHLORIDE 0.9% FLUSH 10 ML FLUSH IVF SCH (08:52)
[2016-11-30] MEDS: FAMOTIDINE 20 MG TAB PO SCH ×2 (08:52→20:38)
[2016-11-30] MEDS: EUCERIN CREAM 120 GM JAR TOPICAL SCH ×2 (08:55→20:39)
--- NOTE | 2016-11-30 12:01 | HHI.PR ---
Subjective Remarks Follow up on patient with acute on chronic respiratory failure s/p tracheostomy. Patient seen and examined, lying in bed awake watching television. Denies any new acute events overnight. Tolerating decannulation, continued supplemental O2. Working with PT well, expresses motivation to start walking again. Denies any recent fever, chills, cough, shortness of breath, chest pain, abdominal pain, n/v, diarrhea or dysuria. Tolerating PO intake. Objective Vitals Vital Signs Date Time Temp Pulse Resp B/P Pulse Ox O2 Delivery O2 Flow Rate FiO2 11/30/16 08:22 98 Nasal Cannula 2.00 11/30/16 08:00 98.0 98 19 97/58 96 11/30/16 06:04 98.0 82 16 106/62 98 11/30/16 01:36 97.1 101 18 102/57 98 11/29/16 22:49 18 11/29/16 21:29 97.4 99 18 116/80 97 11/29/16 18:21 91 Nasal Cannula 2.00 11/29/16 16:00 96.6 91 19 115/66 91 11/29/16 12:00 96.9 81 18 117/63 98 I/O 11/29/16 11/29/16 11/29/16 11/30/16 11/30/16 11/30/16 07:00 15:00 23:00 07:00 15:00 23:00 Intake Total 450 ml 760 ml Output Total 300 ml 300 ml 750 ml 1000 ml Balance 150 ml 460 ml -750 ml -1000 ml Intake Oral 450 ml 760 ml Output Urine Total 300 ml 300 ml 750 ml 1000 ml # Bowel Movements 0 2 Result Diagram: 11/29/16 1003 Imaging Last Impressions Chest X-Ray 11/30/16 0600 Signed Impressions: Service Date/Time: November 05:02 - CONCLUSION: Minimal right basilar subsegmental atelectasis. Tyrel White MD Central Venous Line 10/20/16 0000 Signed Impressions: Service Date/Time: Thursday, October 20, 2016 00:00 - CONCLUSION: Uncomplicated Permcath removal. Didier Zhang MD Catheter Placement X-Ray 09/29/16 1223 Signed Impressions: Service Date/Time: Thursday, September 29, 2016 12:31 - CONCLUSION: Vas-Cath to PermCath exchange as detailed above. Taco Haas Jr., MD Renal Ultrasound 09/17/16 Signed Impressions: Service Date/Time: Saturday, September 17, 2016 13:31 - CONCLUSION: Negative renal sonogram. Taco Davidson MD Upper Extremity Ultrasound 09/14/16 Signed Impressions: Service Date/Time: August 08:32 - CONCLUSION: There is thrombus within the left subclavian and internal jugular veins. Danyel Escalante MD Lower Extremity Ultrasound 09/13/16 Signed Impressions: Service Date/Time: Tuesday, September 13, 2016 22:33 - CONCLUSION: Normal examination. Leonides Mason MD Liver Ultrasound 09/08/16 Signed Impressions: Service Date/Time: Thursday, September 08, 2016 08:45 - CONCLUSION: 1. Cholelithiasis with distended gallbladder. However, there are no associated findings present to diagnose acute cholecystitis. If there is persistent clinical concern for acute cholecystitis could evaluate for cystic duct obstruction with hepatobiliary scintigraphy. 2. Hepatomegaly with very heterogeneous echotexture and steatosis. Dejan Allison MD Gall Bladder Ultrasound 08/29/16 Signed Impressions: Service Date/Time: Monday, August 29, 2016 15:21 - CONCLUSION: 1. Hepatomegaly with heterogeneous echotexture throughout the liver. 2. There is a large echogenic area near the neck of the gallbladder suggestive of a stone, but despite its large size, demonstrates no acoustic shadowing in any of the views. Taco Davidson MD CT Angiography 08/15/16 Signed Impressions: Service Date/Time: Monday, August 15, 2016 02:33 - CONCLUSION: 1. No evidence for pulmonary embolism. 2. Multifocal consolidation greatest in the right lower lobe and associated adenopathy. Terry Estrada MD Objective Remarks GENERAL: Well-nourished, well-developed patient in NAD. s/p tracheostomy. Decannulated, dressing intact, d/i. Lying in hospital bed. Awake and alert. Following commands. SKIN: Warm and dry. No rash. HEENT: Normocephalic. Atraumatic. CARDIOVASCULAR: Regular rate and rhythm. S1, S2 noted. No murmur appreciated. RESPIRATORY: Trach collar in place. No accessory muscle use. Clear to auscultation. Breath sounds equal bilaterally. GASTROINTESTINAL: Abdomen soft, non-tender, nondistended. Normoactive bowel sounds x4. MUSCULOSKELETAL: No obvious deformities. Extremities without clubbing, cyanosis , or edema. NEUROLOGICAL: Awake and alert. Able to move all extremities. Left upper extremity weakness noted, 3/5. Right upper extremity 5/5. No focal neurologic findings appreciated. Procedures 09/15/2016 bronchoscopy 09/11/2016 bronchoscopy 09/10/2016 left IJ central venous line 08/28/2016 subclavian 7 [place] triple-lumen catheter left-sided. 08/18/2016 right arterial line 08/18/2016 right IJ central line Urinary Catheter: No Assessment to: Remove Date of Insertion: Nov 21, 2016 Date of Removal: Nov 30, 2016 A/P Assessment and Plan 56-year-old female admitted with respiratory failure and pneumonia, now with chronic tracheostomy and chronic respiratory failure. Acute toxic metabolic encephalopathy Critical care myopathy Agitated delirium - Resolved - Seroquel 75 mg every 8 hours for agitation - Melatonin 5mg po qHS for insomnia - Acetaminophen for fever/pain Hypertension, chronic Dyslipidemia, chronic - BP well controlled. Will continue Metoprolol, notice hold parameters. - Continue pravastatin. Acute kidney injury, resolved - Follow I's and O's. Adequate urine output. - Nephrology signed off, reconsult if needed. - Creatinine much improved, 0.83. - Remove Miller catheter today. Document post void amount. Monitor for any incontinence or retention. Elevated transaminases, resolved. 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 Decannulated 11/28/16, on supplemental O2. -Continue CPAP at night if sats drop <92%. -Pulmonary toilet, Continue Duonebs -Pulmonology following, appreciate input. -Colistin nebs stop date 11/14/2016 -History of cultures: Blood cultures 08/28: NGTD C Diff negative 08/28. Lines changed 08/28. Sputum 08/30 - Pseudomonas Sputum 09/02 PSAE, resistant to carbapenem, intermediate to Levaquin. 09/07 - urine -Maribell Guilliermondii 09/07 - blood cultures 2 - no growth 09/09 - urine -strep viridans, Maribell parapsilosis 09/10 - blood cultures 2 -no growth 09/11 - broch washings -no growth to date 09/12 - urine -Maribell glabrata and parapsilosis 09/16 - blood cultures 2 - pending 09/16 - sputum -no growth 09/16 - urine -Maribell glabrata and parapsilosis 10/02 - blood cultures 2 - staph epi 10/02 - urine - ESBL positive Klebsiella 10/04 - blood cultures 2 -no growth 10/05 - blood cultures 2 -no growth 10/17 - blood cultures -no growth 10/17 - sputum -Klebsiella ESBL positive and Stenotrophomonas maltophilia 10/17 - urine -C glabrata 10/21/ 10/22 - urine - ESBL positive Klebsiella 10/24 Sputum culture for pseudomonas aeruginosa nad klebsiella pneumoniae ESBL + Left IJ/subclavian nonocclusive thrombus 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 Pharmacy consult for monitoring. -Continue to follow INR. Type 2 Diabetes mellitus, chronic - Continue diabetic diet. Right lateral malleolus wound: - Wound care saw pt on 11/20/16 Hypothyroidism, chronic: Synthroid 200mcg daily GI prophylaxis: Protonix 40mg Q12 DVT prophylaxis: Coumadin Full code. Discharge Planning Last CM note: 11/29/16- Pt remains SSI Pending, no accepting facility at this time. Attending Statement Patient seen in her bedroom, discussed with PA Mrs. Masonssica Mario evaluated and read chart, has stable vital signs and Laboratory evaluated and also within normal limits, Awaiting for placement. Nikki Martin Nov 30, 2016 12:01 Paolo Frazier MD Dec 01, 2016 16:09
[2016-11-30] MEDS: WARFARIN SOD 6 MG TAB PO SCH (15:00)
--- NOTE | 2016-11-30 17:55 | HHI.PR ---
Subjective Remarks Trach is out and has a small leak from trach site. and on N/C 3L. wound in neck is healing. Walks with help Objective Vital Signs Date Time Temp Pulse Resp B/P Pulse Ox O2 Delivery O2 Flow Rate FiO2 11/30/16 16:00 97.8 94 19 104/69 95 11/30/16 12:02 95 Nasal Cannula 3.00 11/30/16 12:00 97.6 98 18 102/78 95 11/30/16 08:22 98 Nasal Cannula 2.00 11/30/16 08:00 98.0 98 19 97/58 96 11/30/16 06:04 98.0 82 16 106/62 98 11/30/16 01:36 97.1 101 18 102/57 98 11/29/16 22:49 18 11/29/16 21:29 97.4 99 18 116/80 97 11/29/16 18:21 91 Nasal Cannula 2.00 I/O 11/29/16 11/29/16 11/29/16 11/30/16 11/30/16 11/30/16 07:00 15:00 23:00 07:00 15:00 23:00 Intake Total 450 ml 760 ml 360 ml Output Total 300 ml 300 ml 750 ml 1000 ml 400 ml Balance 150 ml 460 ml -750 ml -1000 ml 360 ml -400 ml Intake Oral 450 ml 760 ml 360 ml Output Urine Total 300 ml 300 ml 750 ml 1000 ml 400 ml # Bowel Movements 0 2 Result Diagram: 11/29/16 1003 Objective Remarks This is an obese middle-aged white female who is alert HEENT: Head normocephalic.throat clear. Neck: No bruits, no thyroid enlargement, and trach site is healing. no lymphadenopathy. Chest: Decreased breath sounds at bases.occ wheeze scattered Heart: Heart sounds were regular. S1-S2 no murmur, no S3. Abdomen: Soft, benign. No masses, or tenderness. Bowel sounds are active. Extremities:1 + edema . Neuro :Moves all limbs.no deficits. Alert and Oriented Assessment and Plan Assessment and Plan IMPRESSION 1. Acute hypercapnic respiratory failure.Resolving 2. Pulmonary edema. 3. Drug rash 4. Obstructive sleep apnea syndrome 5. Hypertension 6. Hypothyroidism. 7. MIKE Plan : 1. Dress and clean trach site daily. 2. CBC,BMP, PFT. 3. Nebs qid , duoneb. 4. Rehab placement 5. Cont N/C o2 3 L. 6. Walk in halls with help. Abimael Beck MD Nov 30, 2016 17:55
[2016-11-30] MEDS: PRAVASTATIN SOD 20 MG TAB PO SCH (20:38)
[2016-11-30] MEDS: MELATONIN 5 MG TAB PO SCH (20:38)
[2016-11-30] MEDS: SODIUM CHLORIDE 0.9% FLUSH 10 ML FLUSH IVF PRN (20:39)
[2016-11-30] MEDS: MORPHINE SULFATE 4 MG/ML INJ IV PRN (20:52)
[2016-12-01] VITALS (7 sets, daily range): BP systolic 109–120; BP diastolic 59–68; PULSE 73–101; RESP 18–20; TEMP 95.7–97.4; O2SAT 95–98
[2016-12-01] MEDS: CHLORHEXIDINE GLUCONATE 2 % 1 PACK (2 CLOTHS) TOP SCH (02:18)
[2016-12-01] MEDS: METOPROLOL TARTRATE 25 MG TAB PO SCH ×3 (05:34→21:44)
[2016-12-01] MEDS: LEVOTHYROXINE SODIUM 200 MCG TAB PO SCH (05:34)
[2016-12-01] MEDS: QUEtiapine FUMARATE 25 MG TAB PO SCH ×3 (05:34→21:44)
[2016-12-01] MEDS: BENEPROTEIN POWDER 1 PACK G-TUBE SCH ×3 (08:56→15:38)
[2016-12-01] MEDS: ARTIFICIAL TEARS OPTH SOLN 15 ML BTL EACH EYE SCH ×3 (08:56→15:37)
[2016-12-01] MEDS: DOCUSATE SODIUM 50 MG/SENNA 8.6 MG TAB PO SCH ×2 (08:58→21:43)
[2016-12-01] MEDS: FAMOTIDINE 20 MG TAB PO SCH ×2 (08:58→21:43)
[2016-12-01] MEDS: SODIUM CHLORIDE 0.9% FLUSH 10 ML FLUSH IVF SCH (08:58)
[2016-12-01] MEDS: EUCERIN CREAM 120 GM JAR TOPICAL SCH ×2 (09:00→21:45)
[2016-12-01 09:30] LABS: HEMATOCRIT 34.5 % (35.0-46.0); MEAN CELL VOLUME 84.1 FL (80.0-100.0); MEAN CORPUSCULAR HGB CONC 32.1 % (32.0-36.0); PLATELET COUNT 283 TH/MM3 (150-450); RED CELL DISTRIBUTION WIDTH 16.2 % (11.6-17.2); REVIEW FLAG FINAL; WHITE BLOOD COUNT 7.3 TH/MM3 (4.0-11.0)
[2016-12-01 09:37] LABS: INTERNATIONAL NORMALIZED RATIO 2.4 RATIO; PROTHROMBIN TIME - PATIENT 28.1 SEC (9.8-11.6)
--- NOTE | 2016-12-01 10:59 | HHI.PR ---
Subjective Remarks Follow up on patient with acute on chronic respiratory failure s/p tracheostomy. Patient lying in bed awake and comfortably on supplemental O2. Denies any new complaints overnight, Working well with PT. FC removed. Voiding well. Tolerating PO. Objective Vitals Vital Signs Date Time Temp Pulse Resp B/P Pulse Ox O2 Delivery O2 Flow Rate FiO2 12/01/16 08:00 97.2 86 20 109/67 97 12/01/16 04:00 95.7 83 20 120/68 95 12/01/16 00:00 96.9 101 18 116/67 96 11/30/16 21:22 Nasal Cannula 11/30/16 20:57 20 11/30/16 20:00 Nasal Cannula 3.00 11/30/16 20:00 96.9 101 18 116/67 96 11/30/16 16:00 97.8 94 19 104/69 95 11/30/16 12:02 95 Nasal Cannula 3.00 11/30/16 12:00 97.6 98 18 102/78 95 I/O 11/30/16 11/30/16 11/30/16 12/01/16 12/01/16 12/01/16 07:00 15:00 23:00 07:00 15:00 23:00 Intake Total 360 ml 0 ml Output Total 1000 ml 580 ml 1000 ml Balance -1000 ml 360 ml -580 ml -1000 ml Intake Oral 360 ml IV Total 0 ml Output Urine Total 1000 ml 580 ml 1000 ml Result Diagram: 12/01/16 0858 Imaging Last Impressions Chest X-Ray 11/30/16 0600 Signed Impressions: Service Date/Time: November 05:02 - CONCLUSION: Minimal right basilar subsegmental atelectasis. Tyrel White MD Central Venous Line 10/20/16 0000 Signed Impressions: Service Date/Time: Thursday, October 20, 2016 00:00 - CONCLUSION: Uncomplicated Permcath removal. Didier Zhang MD Catheter Placement X-Ray 09/29/16 1223 Signed Impressions: Service Date/Time: Thursday, September 29, 2016 12:31 - CONCLUSION: Vas-Cath to PermCath exchange as detailed above. Taco Haas Jr., MD Renal Ultrasound 09/17/16 0000 Signed Impressions: Service Date/Time: Saturday, September 17, 2016 13:31 - CONCLUSION: Negative renal sonogram. Taco Davidson MD Upper Extremity Ultrasound 09/14/16 0000 Signed Impressions: Service Date/Time: August 08:32 - CONCLUSION: There is thrombus within the left subclavian and internal jugular veins. Danyel Escalante MD Lower Extremity Ultrasound 09/13/16 0000 Signed Impressions: Service Date/Time: Tuesday, September 13, 2016 22:33 - CONCLUSION: Normal examination. Leonides Mason MD Liver Ultrasound 09/08/16 0000 Signed Impressions: Service Date/Time: Thursday, September 08, 2016 08:45 - CONCLUSION: 1. Cholelithiasis with distended gallbladder. However, there are no associated findings present to diagnose acute cholecystitis. If there is persistent clinical concern for acute cholecystitis could evaluate for cystic duct obstruction with hepatobiliary scintigraphy. 2. Hepatomegaly with very heterogeneous echotexture and steatosis. Dejan Allison MD Gall Bladder Ultrasound 08/29/16 0000 Signed Impressions: Service Date/Time: Monday, August 29, 2016 15:21 - CONCLUSION: 1. Hepatomegaly with heterogeneous echotexture throughout the liver. 2. There is a large echogenic area near the neck of the gallbladder suggestive of a stone, but despite its large size, demonstrates no acoustic shadowing in any of the views. Taco Davidson MD CT Angiography 08/15/16 0000 Signed Impressions: Service Date/Time: Monday, August 15, 2016 02:33 - CONCLUSION: 1. No evidence for pulmonary embolism. 2. Multifocal consolidation greatest in the right lower lobe and associated adenopathy. Terry Estrada MD Objective Remarks GENERAL: Well-nourished, well-developed patient in NAD. s/p tracheostomy. Decannulated, dressing intact, d/i. Lying in hospital bed. Awake and alert. Following commands. SKIN: Warm and dry. No rash. Right and left buttock DTI, mild, no open areas to skin. Purple in color. HEENT: Normocephalic. Atraumatic. CARDIOVASCULAR: Regular rate and rhythm. S1, S2 noted. No murmur appreciated. RESPIRATORY: Trach collar in place. No accessory muscle use. Clear to auscultation. Breath sounds equal bilaterally. GASTROINTESTINAL: Abdomen soft, non-tender, nondistended. Normoactive bowel sounds x4. MUSCULOSKELETAL: No obvious deformities. Extremities without clubbing, cyanosis , or edema. NEUROLOGICAL: Awake and alert. Able to move all extremities. Left upper extremity weakness noted, 3/5. Right upper extremity 5/5. No focal neurologic findings appreciated. Procedures 09/15/2016 bronchoscopy 09/11/2016 bronchoscopy 09/10/2016 left IJ central venous line 08/28/2016 subclavian 7 [place] triple-lumen catheter left-sided. 08/18/2016 right arterial line 08/18/2016 right IJ central line Urinary Catheter: No Date of Insertion: Nov 21, 2016 Date of Removal: Nov 30, 2016 A/P Assessment and Plan 56-year-old female admitted with respiratory failure and pneumonia, now with chronic tracheostomy and chronic respiratory failure. Acute toxic metabolic encephalopathy Critical care myopathy Agitated delirium - Resolved - Seroquel 75 mg every 8 hours for agitation - Melatonin 5mg po qHS for insomnia - Acetaminophen for fever/pain Hypertension, chronic Dyslipidemia, chronic - BP well controlled. Will continue Metoprolol, notice hold parameters. - Continue pravastatin. Acute kidney injury, resolved - Follow I's and O's. Adequate urine output. - Nephrology signed off, reconsult if needed. - Creatinine much improved, 0.83. - Remove Miller catheter today. Document post void amount. Monitor for any incontinence or retention. Elevated transaminases, resolved. 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 Decannulated 11/28/16, on supplemental O2. -Continue CPAP at night if sats drop <92%. -Pulmonary toilet, Continue Duonebs -Pulmonology following, appreciate input. -Colistin nebs stop date 11/14/2016 -History of cultures: Blood cultures 08/28: NGTD C Diff negative 08/28. Lines changed 08/28. Sputum 08/30 - Pseudomonas Sputum 09/02 PSAE, resistant to carbapenem, intermediate to Levaquin. 09/07 - urine -Maribell Guilliermondii 09/07 - blood cultures 2 - no growth 09/09 - urine -strep viridans, Maribell parapsilosis 09/10 - blood cultures 2 -no growth 09/11 - broch washings -no growth to date 09/12 - urine -Maribell glabrata and parapsilosis 09/16 - blood cultures 2 - pending 09/16 - sputum -no growth 09/16 - urine -Maribell glabrata and parapsilosis 10/02 - blood cultures 2 - staph epi 10/02 - urine - ESBL positive Klebsiella 10/04 - blood cultures 2 -no growth 10/05 - blood cultures 2 -no growth 10/17 - blood cultures -no growth 10/17 - sputum -Klebsiella ESBL positive and Stenotrophomonas maltophilia 10/17 - urine -C glabrata 10/21/ 10/22 - urine - ESBL positive Klebsiella 10/24 Sputum culture for pseudomonas aeruginosa nad klebsiella pneumoniae ESBL + Left IJ/subclavian nonocclusive thrombus 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 Pharmacy consult for monitoring. -Continue to follow INR. Type 2 Diabetes mellitus, chronic - Continue diabetic diet. Right lateral malleolus wound Mild deep tissue injury, right and left buttock - Wound care saw pt on 11/20/16. RN to call sailing master reassess. For now recommended to place Mepilex to both areas. No open areas to buttock, purple in color. Hypothyroidism, chronic: Synthroid 200mcg daily GI prophylaxis: Protonix 40mg Q12 DVT prophylaxis: Coumadin Full code. Discharge Planning Last CM note: 11/29/16- Pt remains SSI Pending, no accepting facility at this time. Attending Statement Patient seen in her bedroom, discussed with PA Mrs. Nikki Martin evaluated and read chart, has stable vital signs and Laboratory evaluated and also within normal limits, Awaiting for placement. ID specialist was reconsulted and with Diagnosis of ESBL and a very MDR PSAE Tracheobronchitis, recommended to continue Colistin Nebs signed off the case. Nikki Martin Dec 01, 2016 10:59 Paolo Frazier MD Dec 01, 2016 16:11
--- NOTE | 2016-12-01 14:58 | PD.WCN.NOT ---
Wound Consult Description: Right lateral malleolus Communicated with: Gloria Saucedo [address] [place] [address] Recommendation: Cleanse right lateral malleolus with NS and gauze. Apply Optifoam gentle every 3 -5 days. (Available via mistogram only) Float heel and ankle off mattress surface by placing pillow underneath calf while in bed. Please apply skin prep to deep tissue injuries to bilateral buttocks BID and leave open to air Additional Information: Patient seen on [address] [place] [address] for follow up of wound to R lateral malleolus and screening for possible deep tissue injury noted by RN on documentation. Patient turned to R side with assistance of news writer to reveal deep tissue injuries to R and L buttock. Deep tissue injuries presents as small non-blanchable purple discolored areas to bilateral buttocks and appear to be possibly device related from tubing.DTI on L buttock measures 1 x 2.5 and R buttock DTI measures 0.5 x 0.5 . Left DTI s opened to air and applied skin prep. Peeled back foam dressing on R lateral malleolus to reveal ~40% pink tissue and ~ 20% facia and ~40% yellow tissue. Foam dressing is due to be changed tomorrow. Periwound is unremarkable.Reapplied foam dressing back in place. Wound is measuring 1.5cm x 1cm x ~0.4 cm. Will follow up with patient next week. Carie Cordoba [facility] Dec 01, 2016 14:58 Wound Location: Right lateral malleolus Carie Cordoba [facility] Dec 01, 2016 14:58
[2016-12-01] MEDS: WARFARIN SOD 6 MG TAB PO SCH (15:36)
--- NOTE | 2016-12-01 17:31 | HHI.PR ---
Subjective Remarks Trach is out and has no leak from trach site. and on N/C 3L. wound in neck is healing. Overall much better. Sats 96. Objective Vital Signs Date Time Temp Pulse Resp B/P Pulse Ox O2 Delivery O2 Flow Rate FiO2 12/01/16 12:00 96.4 73 20 117/59 97 12/01/16 10:30 98 Nasal Cannula 3.00 12/01/16 08:00 97.2 86 20 109/67 97 12/01/16 04:00 95.7 83 20 120/68 95 12/01/16 00:00 96.9 101 18 116/67 96 11/30/16 21:22 Nasal Cannula 11/30/16 20:57 20 11/30/16 20:00 Nasal Cannula 3.00 11/30/16 20:00 96.9 101 18 116/67 96 I/O 11/30/16 11/30/16 11/30/16 12/01/16 12/01/16 12/01/16 07:00 15:00 23:00 07:00 15:00 23:00 Intake Total 360 ml 0 ml Output Total 1000 ml 580 ml 1000 ml Balance -1000 ml 360 ml -580 ml -1000 ml Intake Oral 360 ml IV Total 0 ml Output Urine Total 1000 ml 580 ml 1000 ml Result Diagram: 12/01/16 0858 Objective Remarks This is an obese middle-aged white female who is alert HEENT: Head normocephalic.throat clear. Neck: No bruits, no thyroid enlargement, and trach site is healing. no lymphadenopathy. Chest: Decreased breath sounds at bases.occ wheeze scattered. Heart: Heart sounds were regular. S1-S2 no murmur, no S3. Abdomen: Soft, benign. No masses, or tenderness. Bowel sounds are active. Extremities:No edema . Neuro :Moves all limbs.no deficits. Alert and Oriented Assessment and Plan Assessment and Plan IMPRESSION 1. Acute hypercapnic respiratory failure.Resolving 2. Pulmonary edema. 3. Drug rash 4. Obstructive sleep apnea syndrome 5. Hypertension 6. Hypothyroidism. 7. MIKE Plan : 1. Dress and clean trach site daily. 2. Arrange home o2 2L 3. D/C Nebs . 4. Rehab placement 5. Add Ventolin HFA , 2 puffs qid prn 6. Walk in halls with help. Abimael Beck MD Dec 01, 2016 17:31
[2016-12-01] MEDS ORDERED: ALBUTEROL SULFATE 90 MCG/ACT HFA 8 GM INHALER INH PRN (17:45)
[2016-12-01] MEDS: MELATONIN 5 MG TAB PO SCH (21:43)
[2016-12-01] MEDS: PRAVASTATIN SOD 20 MG TAB PO SCH (21:43)
[2016-12-01] MEDS: MORPHINE SULFATE 4 MG/ML INJ IV PRN (21:46)
[2016-12-02] VITALS (7 sets, daily range): BP systolic 105–142; BP diastolic 62–84; PULSE 80–95; RESP 20; TEMP 95.5–98; O2SAT 95–97
[2016-12-02] MEDS: CHLORHEXIDINE GLUCONATE 2 % 1 PACK (2 CLOTHS) TOP SCH (04:00)
[2016-12-02] MEDS: METOPROLOL TARTRATE 25 MG TAB PO SCH ×3 (06:00→21:12)
[2016-12-02] MEDS: QUEtiapine FUMARATE 25 MG TAB PO SCH ×3 (06:35→21:12)
[2016-12-02] MEDS: LEVOTHYROXINE SODIUM 200 MCG TAB PO SCH (06:35)
[2016-12-02 08:34] LABS: HEMATOCRIT 33.4 % (35.0-46.0); MEAN CELL VOLUME 83.2 FL (80.0-100.0); MEAN CORPUSCULAR HEMOGLOBIN 27.5 PG (27.0-34.0); MEAN CORPUSCULAR HGB CONC 33.1 % (32.0-36.0); PLATELET COUNT 305 TH/MM3 (150-450); RED BLOOD COUNT 4.02 MIL/MM3 (4.00-5.30); RED CELL DISTRIBUTION WIDTH 15.9 % (11.6-17.2); REVIEW FLAG FINAL; WHITE BLOOD COUNT 8.3 TH/MM3 (4.0-11.0)
[2016-12-02] MEDS: EUCERIN CREAM 120 GM JAR TOPICAL SCH ×2 (09:00→21:00)
[2016-12-02] MEDS: BENEPROTEIN POWDER 1 PACK G-TUBE SCH ×3 (09:00→18:00)
[2016-12-02] MEDS: SODIUM CHLORIDE 0.9% FLUSH 10 ML FLUSH IVF SCH (09:02)
[2016-12-02] MEDS: DOCUSATE SODIUM 50 MG/SENNA 8.6 MG TAB PO SCH ×2 (09:02→21:12)
[2016-12-02] MEDS: FAMOTIDINE 20 MG TAB PO SCH ×2 (09:02→21:12)
[2016-12-02] MEDS: ARTIFICIAL TEARS OPTH SOLN 15 ML BTL EACH EYE SCH ×3 (09:05→18:00)
[2016-12-02 09:26] LABS: BICARBONATE 27.4 MEQ/L (21.0-32.0)
--- NOTE | 2016-12-02 11:19 | HHI.PR ---
Subjective Remarks Follow up on patient with acute on chronic respiratory failure s/p tracheostomy. Patient seen and examined, lying in bed comfortably. On supplemental O2. Tolerating PO intake. Denies any new acute complaints. Denies any recent fever, chills, cough, shortness of breath, nausea, vomiting, or dysuria. Continue working with PT. Objective Vitals Vital Signs Date Time Temp Pulse Resp B/P Pulse Ox O2 Delivery O2 Flow Rate FiO2 12/02/16 08:38 97 Nasal Cannula 3.00 12/02/16 08:10 95.5 80 20 110/69 96 12/02/16 08:00 Nasal Cannula 3.00 12/02/16 04:00 96.9 95 20 105/72 95 12/02/16 00:00 98.0 81 20 142/84 97 12/01/16 20:00 97.0 82 20 96 12/01/16 20:00 96 Nasal Cannula 3.00 12/01/16 16:00 97.4 85 20 118/60 98 12/01/16 12:00 96.4 73 20 117/59 97 I/O 12/01/16 12/01/16 12/01/16 12/02/16 12/02/16 12/02/16 07:00 15:00 23:00 07:00 15:00 23:00 Intake Total 0 ml Output Total 1000 ml Balance -1000 ml IV Total 0 ml Output Urine Total 1000 ml # Voids 3 2 # Bowel Movements 1 1 Result Diagram: 12/02/16 0712 12/02/16 0816 Imaging Last Impressions Chest X-Ray 11/30/16 0600 Signed Impressions: Service Date/Time: November 05:02 - CONCLUSION: Minimal right basilar subsegmental atelectasis. Tyrel White MD Central Venous Line 10/20/16 0000 Signed Impressions: Service Date/Time: Thursday, October 20, 2016 00:00 - CONCLUSION: Uncomplicated Permcath removal. Didier Zhang MD Catheter Placement X-Ray 09/29/16 1223 Signed Impressions: Service Date/Time: Thursday, September 29, 2016 12:31 - CONCLUSION: Vas-Cath to PermCath exchange as detailed above. Taco Haas Jr., MD Renal Ultrasound 09/17/16 0000 Signed Impressions: Service Date/Time: Saturday, September 17, 2016 13:31 - CONCLUSION: Negative renal sonogram. Taco Davidson MD Upper Extremity Ultrasound 09/14/16 0000 Signed Impressions: Service Date/Time: August 08:32 - CONCLUSION: There is thrombus within the left subclavian and internal jugular veins. Danyel Escalante MD Lower Extremity Ultrasound 09/13/16 0000 Signed Impressions: Service Date/Time: Tuesday, September 13, 2016 22:33 - CONCLUSION: Normal examination. Leonides Mason MD Liver Ultrasound 09/08/16 0000 Signed Impressions: Service Date/Time: Thursday, September 08, 2016 08:45 - CONCLUSION: 1. Cholelithiasis with distended gallbladder. However, there are no associated findings present to diagnose acute cholecystitis. If there is persistent clinical concern for acute cholecystitis could evaluate for cystic duct obstruction with hepatobiliary scintigraphy. 2. Hepatomegaly with very heterogeneous echotexture and steatosis. Dejan Allison MD Gall Bladder Ultrasound 08/29/16 0000 Signed Impressions: Service Date/Time: Monday, August 29, 2016 15:21 - CONCLUSION: 1. Hepatomegaly with heterogeneous echotexture throughout the liver. 2. There is a large echogenic area near the neck of the gallbladder suggestive of a stone, but despite its large size, demonstrates no acoustic shadowing in any of the views. Taco Davidson MD CT Angiography 08/15/16 0000 Signed Impressions: Service Date/Time: Monday, August 15, 2016 02:33 - CONCLUSION: 1. No evidence for pulmonary embolism. 2. Multifocal consolidation greatest in the right lower lobe and associated adenopathy. Terry Estrada MD Objective Remarks GENERAL: Well-nourished, well-developed patient in NAD. s/p tracheostomy. Decannulated, dressing intact, d/i. Lying in hospital bed. Awake and alert. Following commands. SKIN: Warm and dry. No rash. Right and left buttock DTI, mild, no open areas to skin. Purple in color. HEENT: Normocephalic. Atraumatic. CARDIOVASCULAR: Regular rate and rhythm. S1, S2 noted. No murmur appreciated. RESPIRATORY: Trach collar in place. No accessory muscle use. Clear to auscultation. Breath sounds equal bilaterally. GASTROINTESTINAL: Abdomen soft, non-tender, nondistended. Normoactive bowel sounds x4. MUSCULOSKELETAL: No obvious deformities. Extremities without clubbing, cyanosis , or edema. NEUROLOGICAL: Awake and alert. Able to move all extremities. Left upper extremity weakness noted, 3/5. Right upper extremity 5/5. No focal neurologic findings appreciated. Procedures 09/15/2016 bronchoscopy 09/11/2016 bronchoscopy 09/10/2016 left IJ central venous line 08/28/2016 subclavian 7 [place] triple-lumen catheter left-sided. 08/18/2016 right arterial line 08/18/2016 right IJ central line Date of Insertion: Nov 21, 2016 Date of Removal: Nov 30, 2016 A/P Assessment and Plan 56-year-old female admitted with respiratory failure and pneumonia, now with chronic tracheostomy and chronic respiratory failure. Acute toxic metabolic encephalopathy Critical care myopathy Agitated delirium - Resolved - Seroquel 75 mg every 8 hours for agitation - Melatonin 5mg po qHS for insomnia - Acetaminophen for fever/pain Hypertension, chronic Dyslipidemia, chronic - BP well controlled. Will continue Metoprolol, notice hold parameters. - Continue pravastatin. Acute kidney injury, resolved - Follow I's and O's. Adequate urine output. - Nephrology signed off, reconsult if needed. - Creatinine much improved, 0.83. - BMP reviewed this am, unremarkable. Elevated transaminases, resolved. 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 Decannulated 11/28/16, on supplemental O2. -Continue CPAP at night if sats drop <92%. -Pulmonary toilet, Continue Duonebs -Pulmonology following, appreciate input. -Colistin nebs stop date 11/14/2016 -History of cultures: Blood cultures 08/28: NGTD C Diff negative 08/28. Lines changed 08/28. Sputum 08/30 - Pseudomonas Sputum 09/02 PSAE, resistant to carbapenem, intermediate to Levaquin. 09/07 - urine -Maribell Guilliermondii 09/07 - blood cultures 2 - no growth 09/09 - urine -strep viridans, Maribell parapsilosis 09/10 - blood cultures 2 -no growth 09/11 - broch washings -no growth to date 09/12 - urine -Maribell glabrata and parapsilosis 09/16 - blood cultures 2 - pending 09/16 - sputum -no growth 09/16 - urine -Maribell glabrata and parapsilosis 10/02 - blood cultures 2 - staph epi 10/02 - urine - ESBL positive Klebsiella 10/04 - blood cultures 2 -no growth 10/05 - blood cultures 2 -no growth 10/17 - blood cultures -no growth 10/17 - sputum -Klebsiella ESBL positive and Stenotrophomonas maltophilia 10/17 - urine -C glabrata 10/21/ 10/22 - urine - ESBL positive Klebsiella 10/24 Sputum culture for pseudomonas aeruginosa nad klebsiella pneumoniae ESBL + Left IJ/subclavian nonocclusive thrombus 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 Pharmacy consult for monitoring. -Continue to follow INR. Type 2 Diabetes mellitus, chronic: Continue diabetic diet. Right lateral malleolus wound Mild deep tissue injury, right and left buttock - Wound care saw pt on 11/20/16. Wound care assess patient 12/01/16 new recommendations include: Cleanse right lateral malleolus with NS and gauze. Apply Optifoam gentle every 3-5 days. (Available via mistogram only) Float heel and ankle off mattress surface by placing pillow underneath calf while in bed. Please apply skin prep to deep tissue injuries to bilateral buttocks BID and leave open to air Hypothyroidism, chronic: Synthroid 200mcg daily GI prophylaxis: Protonix 40mg Q12 DVT prophylaxis: Coumadin Full code. Discharge Planning Last CM note: 11/29/16- Pt remains SSI Pending, no accepting facility at this time. Nikki Martin Dec 02, 2016 11:19
[2016-12-02] MEDS: WARFARIN SOD 6 MG TAB PO SCH (18:44)
--- NOTE | 2016-12-02 20:04 | HHI.PR ---
Subjective Remarks Trach site healing . and on N/C 3L. Walks a little. Overall much better. Objective Vital Signs Date Time Temp Pulse Resp B/P Pulse Ox O2 Delivery O2 Flow Rate FiO2 12/02/16 16:51 97.4 89 20 124/62 97 12/02/16 12:59 96.7 90 20 105/65 96 12/02/16 08:38 97 Nasal Cannula 3.00 12/02/16 08:10 95.5 80 20 110/69 96 12/02/16 08:00 Nasal Cannula 3.00 12/02/16 04:00 96.9 95 20 105/72 95 12/02/16 00:00 98.0 81 20 142/84 97 I/O 12/01/16 12/01/16 12/01/16 12/02/16 12/02/16 12/02/16 07:00 15:00 23:00 07:00 15:00 23:00 Intake Total 0 ml 720 ml Output Total 1000 ml 50 ml Balance -1000 ml 670 ml Intake Oral 720 ml IV Total 0 ml Output Urine Total 1000 ml 50 ml # Voids 3 2 2 # Bowel Movements 1 1 Result Diagram: 12/02/16 0712 12/02/16 0816 Objective Remarks This is an obese middle-aged white female who is alert HEENT: Head normocephalic.throat clear. Neck: No bruits, no thyroid enlargement.No lymphadenopathy. Chest: Decreased breath sounds at bases.Clear. Heart: Heart sounds were regular. S1-S2 no murmur, no S3. Abdomen: Soft, benign. No masses, or tenderness. Bowel sounds are active. Extremities:No edema . Neuro :Moves all limbs.no deficits. Alert and Oriented Assessment and Plan Assessment and Plan IMPRESSION 1. Acute hypercapnic respiratory failure.Resolving 2. Pulmonary edema. 3. Drug rash 4. Obstructive sleep apnea syndrome 5. Hypertension 6. Hypothyroidism. 7. MIKE Plan : 1. CXR on Sunday. 2. Arrange home o2 2L 3. PT and OT 4. Rehab placement 5. Add Ventolin HFA , 2 puffs qid prn 6. CBC in am Abimael Beck MD Dec 02, 2016 20:04
[2016-12-02] MEDS: MELATONIN 5 MG TAB PO SCH (21:11)
[2016-12-02] MEDS: PRAVASTATIN SOD 20 MG TAB PO SCH (21:12)
[2016-12-02] MEDS: MORPHINE SULFATE 4 MG/ML INJ IV PRN (21:13)
[2016-12-03] VITALS (7 sets, daily range): BP systolic 105–142; BP diastolic 64–84; PULSE 70–94; RESP 20; TEMP 95.9–97.6; O2SAT 93–98
[2016-12-03] MEDS: CHLORHEXIDINE GLUCONATE 2 % 1 PACK (2 CLOTHS) TOP SCH (04:00)
[2016-12-03] MEDS: METOPROLOL TARTRATE 25 MG TAB PO SCH ×3 (06:00→20:37)
[2016-12-03] MEDS: LEVOTHYROXINE SODIUM 200 MCG TAB PO SCH (06:12)
[2016-12-03] MEDS: QUEtiapine FUMARATE 25 MG TAB PO SCH ×3 (06:12→20:38)
[2016-12-03 07:07] LABS: INTERNATIONAL NORMALIZED RATIO 2.6 RATIO; PROTHROMBIN TIME - PATIENT 30.3 SEC (9.8-11.6)
[2016-12-03] MEDS: EUCERIN CREAM 120 GM JAR TOPICAL SCH ×2 (08:43→20:38)
[2016-12-03] MEDS: BENEPROTEIN POWDER 1 PACK G-TUBE SCH ×3 (08:43→17:11)
[2016-12-03] MEDS: FAMOTIDINE 20 MG TAB PO SCH ×2 (08:43→20:38)
[2016-12-03] MEDS: DOCUSATE SODIUM 50 MG/SENNA 8.6 MG TAB PO SCH ×2 (08:43→20:38)
[2016-12-03] MEDS: SODIUM CHLORIDE 0.9% FLUSH 10 ML FLUSH IVF SCH (08:43)
[2016-12-03] MEDS: ARTIFICIAL TEARS OPTH SOLN 15 ML BTL EACH EYE SCH ×3 (08:43→17:11)
--- NOTE | 2016-12-03 11:47 | HHI.PR ---
Subjective Remarks Follow up on patient with acute on chronic respiratory failure s/p tracheostomy. Patient seen and examined, lying in bed awake, comfortable, in no apparent distress. Tolerating PO. On 2 L NC. Denies any acute events overnight. Has been tolerating sitting in chair with PT roughly an hour a day. Encouraged if tolerable to extend that time frame. Denies any recent fever, chills, cough, shortness of breath, abdominal pain, n/v, diarrhea, dysuria. Objective Vitals Vital Signs Date Time Temp Pulse Resp B/P Pulse Ox O2 Delivery O2 Flow Rate FiO2 12/03/16 10:45 98 Nasal Cannula 2.00 12/03/16 08:19 96.7 70 20 121/67 98 12/03/16 04:00 96.3 93 20 105/69 95 12/03/16 00:00 97.0 94 20 110/68 95 12/02/16 23:54 Nasal Cannula 3.00 12/02/16 20:00 97.9 86 20 107/69 96 12/02/16 16:51 97.4 89 20 124/62 97 12/02/16 12:59 96.7 90 20 105/65 96 I/O 12/02/16 12/02/16 12/02/16 12/03/16 12/03/16 12/03/16 07:00 15:00 23:00 07:00 15:00 23:00 Intake Total 1080 ml Output Total 50 ml Balance 1030 ml Intake Oral 1080 ml Output Urine Total 50 ml # Voids 2 3 # Bowel Movements 0 Result Diagram: 12/02/16 0712 12/02/16 0816 Imaging Last Impressions Chest X-Ray 11/30/16 0600 Signed Impressions: Service Date/Time: November 05:02 - CONCLUSION: Minimal right basilar subsegmental atelectasis. Tyrel White MD Central Venous Line 10/20/16 0000 Signed Impressions: Service Date/Time: Thursday, October 20, 2016 00:00 - CONCLUSION: Uncomplicated Permcath removal. Didier Zhang MD Catheter Placement X-Ray 09/29/16 1223 Signed Impressions: Service Date/Time: Thursday, September 29, 2016 12:31 - CONCLUSION: Vas-Cath to PermCath exchange as detailed above. Taco Haas Jr., MD Renal Ultrasound 09/17/16 0000 Signed Impressions: Service Date/Time: Saturday, September 17, 2016 13:31 - CONCLUSION: Negative renal sonogram. Taco Davidson MD Upper Extremity Ultrasound 09/14/16 0000 Signed Impressions: Service Date/Time: August 08:32 - CONCLUSION: There is thrombus within the left subclavian and internal jugular veins. Danyel Escalante MD Lower Extremity Ultrasound 09/13/16 0000 Signed Impressions: Service Date/Time: Tuesday, September 13, 2016 22:33 - CONCLUSION: Normal examination. Leonides Mason MD Liver Ultrasound 09/08/16 0000 Signed Impressions: Service Date/Time: Thursday, September 08, 2016 08:45 - CONCLUSION: 1. Cholelithiasis with distended gallbladder. However, there are no associated findings present to diagnose acute cholecystitis. If there is persistent clinical concern for acute cholecystitis could evaluate for cystic duct obstruction with hepatobiliary scintigraphy. 2. Hepatomegaly with very heterogeneous echotexture and steatosis. Dejan Allison MD Gall Bladder Ultrasound 08/29/16 0000 Signed Impressions: Service Date/Time: Monday, August 29, 2016 15:21 - CONCLUSION: 1. Hepatomegaly with heterogeneous echotexture throughout the liver. 2. There is a large echogenic area near the neck of the gallbladder suggestive of a stone, but despite its large size, demonstrates no acoustic shadowing in any of the views. Taco Davidson MD CT Angiography 08/15/16 0000 Signed Impressions: Service Date/Time: Monday, August 15, 2016 02:33 - CONCLUSION: 1. No evidence for pulmonary embolism. 2. Multifocal consolidation greatest in the right lower lobe and associated adenopathy. Terry Estrada MD Objective Remarks GENERAL: Well-nourished, well-developed patient in NAD. s/p tracheostomy. Decannulated, dressing intact, d/i. Lying in hospital bed. Awake and alert. Following commands. SKIN: Warm and dry. No rash. Right and left buttock DTI, mild, no open areas to skin. Purple in color. HEENT: Normocephalic. Atraumatic. CARDIOVASCULAR: Regular rate and rhythm. S1, S2 noted. No murmur appreciated. RESPIRATORY: Trach collar in place. No accessory muscle use. Clear to auscultation. Breath sounds equal bilaterally. GASTROINTESTINAL: Abdomen soft, non-tender, nondistended. Normoactive bowel sounds x4. MUSCULOSKELETAL: No obvious deformities. Extremities without clubbing, cyanosis , or edema. NEUROLOGICAL: Awake and alert. Able to move all extremities. Left upper extremity weakness noted, 3/5. Right upper extremity 5/5. No focal neurologic findings appreciated. Procedures 09/15/2016 bronchoscopy 09/11/2016 bronchoscopy 09/10/2016 left IJ central venous line 08/28/2016 subclavian 7 [place] triple-lumen catheter left-sided. 08/18/2016 right arterial line 08/18/2016 right IJ central line Date of Insertion: Nov 21, 2016 Date of Removal: Nov 30, 2016 A/P Assessment and Plan 56-year-old female admitted with respiratory failure and pneumonia, now with chronic tracheostomy and chronic respiratory failure. Acute toxic metabolic encephalopathy Critical care myopathy Agitated delirium - Resolved - Seroquel 75 mg every 8 hours for agitation - Melatonin 5mg po qHS for insomnia - Acetaminophen for fever/pain Hypertension, chronic Dyslipidemia, chronic - BP well controlled. Will continue Metoprolol, notice hold parameters. - Continue pravastatin. Acute kidney injury, resolved - Follow I's and O's. Adequate urine output. - Nephrology signed off, reconsult if needed. - Creatinine much improved, 0.65. Elevated transaminases, resolved. 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 Decannulated 11/28/16, on supplemental O2. -Continue CPAP at night if sats drop <92%. -Pulmonary toilet, Continue Duonebs -Pulmonology following, appreciate input. -Colistin nebs stop date 11/14/2016 -History of cultures: Blood cultures 08/28: NGTD C Diff negative 08/28. Lines changed 08/28. Sputum 08/30 - Pseudomonas Sputum 09/02 PSAE, resistant to carbapenem, intermediate to Levaquin. 09/07 - urine -Maribell Guilliermondii 09/07 - blood cultures 2 - no growth 09/09 - urine -strep viridans, Maribell parapsilosis 09/10 - blood cultures 2 -no growth 09/11 - broch washings -no growth to date 09/12 - urine -Maribell glabrata and parapsilosis 09/16 - blood cultures 2 - pending 09/16 - sputum -no growth 09/16 - urine -Maribell glabrata and parapsilosis 10/02 - blood cultures 2 - staph epi 10/02 - urine - ESBL positive Klebsiella 10/04 - blood cultures 2 -no growth 10/05 - blood cultures 2 -no growth 10/17 - blood cultures -no growth 10/17 - sputum -Klebsiella ESBL positive and Stenotrophomonas maltophilia 10/17 - urine -C glabrata 10/21/ 10/22 - urine - ESBL positive Klebsiella 10/24 Sputum culture for pseudomonas aeruginosa nad klebsiella pneumoniae ESBL + Left IJ/subclavian nonocclusive thrombus 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 Pharmacy consult for monitoring. -Continue to follow INR. Type 2 Diabetes mellitus, chronic: Continue diabetic diet. Right lateral malleolus wound Mild deep tissue injury, right and left buttock - Wound care saw pt on 11/20/16. Wound care assess patient 12/01/16 new recommendations include: Cleanse right lateral malleolus with NS and gauze. Apply Optifoam gentle every 3-5 days. (Available via mistogram only) Float heel and ankle off mattress surface by placing pillow underneath calf while in bed. Please apply skin prep to deep tissue injuries to bilateral buttocks BID and leave open to air Hypothyroidism, chronic: Synthroid 200mcg daily GI prophylaxis: Protonix 40mg Q12 DVT prophylaxis: Coumadin Full code. Discharge Planning Last CM note: 11/29/16- Pt remains SSI Pending, no accepting facility at this time. Nikki Martin Dec 03, 2016 11:47
[2016-12-03] MEDS: WARFARIN SOD 6 MG TAB PO SCH (17:15)
[2016-12-03] MEDS: MORPHINE SULFATE 4 MG/ML INJ IV PRN (20:38)
[2016-12-03] MEDS: PRAVASTATIN SOD 20 MG TAB PO SCH (20:38)
[2016-12-03] MEDS: MELATONIN 5 MG TAB PO SCH (20:38)
[2016-12-04] VITALS: BP 97/55; PULSE 94; RESP 20; TEMP 96.6; O2SAT 95
[2016-12-04 04:00] VITALS: BP 131/74; PULSE 101; RESP 20; TEMP 96.7; O2SAT 96
[2016-12-04] MEDS: CHLORHEXIDINE GLUCONATE 2 % 1 PACK (2 CLOTHS) TOP SCH (04:00)
[2016-12-04] MEDS: QUEtiapine FUMARATE 25 MG TAB PO SCH ×3 (05:49→22:00)
[2016-12-04] MEDS: METOPROLOL TARTRATE 25 MG TAB PO SCH ×3 (05:49→22:31)
[2016-12-04] MEDS: LEVOTHYROXINE SODIUM 200 MCG TAB PO SCH (05:49)
[2016-12-04] MEDS: ARTIFICIAL TEARS OPTH SOLN 15 ML BTL EACH EYE SCH ×3 (08:18→16:06)
[2016-12-04] MEDS: BENEPROTEIN POWDER 1 PACK G-TUBE SCH ×3 (08:18→16:06)
[2016-12-04] MEDS: SODIUM CHLORIDE 0.9% FLUSH 10 ML FLUSH IVF SCH (08:18)
[2016-12-04] MEDS: DOCUSATE SODIUM 50 MG/SENNA 8.6 MG TAB PO SCH ×2 (08:18→21:06)
[2016-12-04] MEDS: FAMOTIDINE 20 MG TAB PO SCH ×2 (08:19→21:06)
[2016-12-04] MEDS: EUCERIN CREAM 120 GM JAR TOPICAL SCH ×2 (08:19→21:07)
[2016-12-04 08:43] VITALS: BP 104/66; PULSE 83; RESP 20; TEMP 96.4; O2SAT 95
[2016-12-04 12:00] VITALS: BP 100/70; PULSE 120; RESP 21; TEMP 97.5; O2SAT 97
[2016-12-04 16:00] VITALS: BP 120/81; PULSE 100; RESP 18; TEMP 98.9; O2SAT 94
[2016-12-04] MEDS: WARFARIN SOD 6 MG TAB PO SCH (16:36)
--- NOTE | 2016-12-04 17:37 | HHI.PR ---
Subjective Remarks Follow up on patient with acute on chronic respiratory failure s/p tracheostomy. Patient seen and examined, lying in bed awake, comfortable, in NAD Tolerating oral diet, requested change to regular diet from mechanical soft. On 2 L NC. Denied any acute events overnight. Reported sitting in chair (but has moved to the cough as "it hurts my butt to sit too longi n the chair") with PT roughly an hour a day. Pt reported she is not walking very far "due to my legs can't support my weight." Denies any recent fever, chills, cough, shortness of breath, abdominal pain, NVD , bloody urine or stool. Per Pt's RN (Sadi) pt had no acute events overnight or since start of shift. RN did reiterate pt's desire to "have a regular diet." RN did report pt having "multiple bowel movements" and declined to classify events as diarrhea. Objective Vitals Vital Signs Date Time Temp Pulse Resp B/P Pulse Ox O2 Delivery O2 Flow Rate FiO2 12/04/16 16:00 98.9 100 18 120/81 94 12/04/16 14:04 Nasal Cannula 3.00 12/04/16 12:00 97.5 120 21 100/70 97 12/04/16 08:43 96.4 83 20 104/66 95 12/04/16 07:00 98 Nasal Cannula 3.00 12/04/16 04:00 96.7 101 20 131/74 96 12/04/16 01:49 Nasal Cannula 3.00 12/04/16 00:00 96.6 94 20 97/55 95 12/03/16 20:00 97.6 92 20 112/72 93 I/O 12/03/16 12/03/16 12/03/16 12/04/16 12/04/16 12/04/16 06:59 14:59 22:59 06:59 14:59 22:59 Intake Total 240 ml Balance 240 ml Intake Oral 240 ml # Voids 3 1 4 # Bowel Movements 1 0 Result Diagram: 12/02/16 0712 12/02/16 0816 Imaging None ordered, pending, or resulted within the past 24 hours. Objective Remarks GENERAL: Pt laying a bed, t-tube in place capped, pt speaking, NAD. SKIN: Warm and dry. Wound noted on right lateral malleolus bandaged and covered with gauze. HEAD: Normocephalic. EYES: No scleral icterus. No injection or drainage. NECK: Supple, trachea midline. No lymphadenopathy. CARDIOVASCULAR: Regular rate and rhythm without murmurs, gallops, or rubs. RESPIRATORY: Breath sounds equal bilaterally and without rhonchi or wheezes. No accessory muscle use. GASTROINTESTINAL: Abdomen soft, non-tender, nondistended. MUSCULOSKELETAL: No cyanosis, or edema. Left hand weakness present, gripping device provided by OT not immediately noted. PSYCHIATRIC: Pt Alert and oriented x3. Pt smiling. Pleasant and cooperative. Procedures 09/15/2016 bronchoscopy 09/11/2016 bronchoscopy 09/10/2016 left IJ central venous line 08/28/2016 subclavian 7 Iranian triple-lumen catheter left-sided. 08/18/2016 right arterial line 08/18/2016 right IJ central line Medications and IVs Current Medications Medications (Trade) Dose Ordered Sig/Josephine Route Start Time Stop Time Status Last Admin (Synthroid) 200 mcg DAILY@06 PO 08/15/16 06:00 12/04/16 05:49 (Pravachol) 20 mg HS PO 08/15/16 21:00 12/03/16 20:38 (Tylenol) 650 mg Q6H PRN PO 08/14/16 23:15 11/17/16 15:36 (Morphine Inj) 2 mg Q2H PRN IV 08/14/16 23:15 12/03/16 20:38 (Tears Naturale Opth Soln) 1 drop TID EACH EYE 08/15/16 09:00 12/03/16 08:43 (Zofran Inj) 4 mg Q6H PRN IV 08/14/16 23:15 Miscellaneous Information 1 Q361D XX 08/14/16 23:15 (Chlorhexidine 2% Cloth) Taper DAILY@04 TOP 08/15/16 04:00 08/11/17 03:59 10/31/16 04:00 (Chlorhexidine 2% Cloth) 3 pack UNSCH PRN TOP 08/14/16 23:15 (Beneprotein Powder) 2 pack TID G-TUBE 08/15/16 09:00 12/02/16 18:00 (D50w (Vial) Inj) 25 ml UNSCH PRN IV PUSH 08/16/16 09:15 (NS Flush) DAILY IVF 09/11/16 09:00 12/04/16 08:18 (Mannitol Inj) 12.5 gm UNSCH PRN IV 09/20/16 10:30 10/05/16 09:40 (Albumin 25% Inj) 25 gm UNSCH PRN IV 09/20/16 10:30 10/10/16 10:10 (NS Flush) 5 ml UNSCH PRN IV FLUSH 09/20/16 10:30 09/21/16 13:24 (Heparin Inj) UNSCH PRN .XX 09/20/16 10:30 10/12/16 10:48 (Gentamicin (Dialysis) Inj) 20 mg UNSCH PRN IV 09/20/16 10:30 10/14/16 12:35 (Zofran Inj) 4 mg UNSCH PRN IV 09/20/16 10:30 (Tylenol) 650 mg UNSCH PRN PO 09/20/16 10:30 (Benadryl) 25 mg UNSCH PRN PO 09/20/16 10:30 11/24/16 14:02 (Nitrostat Sl) 0.4 mg UNSCH PRN SL 09/20/16 10:30 (Gelfoam 12 Mm/7 Mm Top) 1 foam UNSCH PRN TOP 09/20/16 10:30 (Eucerin Cream) 1 applic BID TOPICAL 09/27/16 21:00 12/03/16 20:38 (SEROquel) 75 mg Q8HR PO 09/28/16 14:00 12/04/16 12:21 (NS Flush) UNSCH PRN IVF 09/29/16 12:45 11/30/16 20:39 (Heparin Inj) UNSCH PRN IV FLUSH 09/29/16 12:45 (Melatonin) 5 mg HS PO 10/07/16 21:00 12/03/16 20:38 (Ativan Inj) 1 mg Q6H PRN IV PUSH 10/15/16 11:45 11/11/16 22:23 (Nitroglycerin 2% Oint) 2 inch Q6HR PRN TOPICAL 10/21/16 13:15 (Levsin Liq) 0.125 mg Q4H PRN PO 10/26/16 12:30 11/13/16 05:27 (Sharlene-Colace) 2 tab BID PO 11/09/16 13:00 12/02/16 21:12 (Milk Of Magnesia Liq) 30 ml Q6H PRN PO 11/09/16 13:00 12/01/16 15:37 (Coumadin) 6 mg DAILY@16 PO 11/13/16 16:00 12/04/16 16:36 (Lopressor) 25 mg Q8HR PO 11/16/16 14:00 12/04/16 05:49 Famotidine 20 mg 20 mg BID PO 11/17/16 09:15 12/04/16 08:19 (Coumadin Consult Pharmacy) 0 ml @ 0 mls/hr UNSCH OTHER 11/18/16 09:30 (Proair Hfa Inh) 2 puff Q6H PRN INH 12/01/16 17:45 Urinary Catheter: No Date of Insertion: Nov 21, 2016 Date of Removal: Nov 30, 2016 A/P Assessment and Plan 56-year-old female admitted with respiratory failure and pneumonia, now with chronic tracheostomy and chronic respiratory failure. Acute toxic metabolic encephalopathy Critical care myopathy Agitated delirium - Resolved - Seroquel 75 mg every 8 hours for agitation - Melatonin 5mg po qHS for insomnia - Acetaminophen for fever/pain Hypertension, chronic Dyslipidemia, chronic - BP well controlled. Will continue Metoprolol, notice hold parameters. - Continue pravastatin. Acute kidney injury, resolved - Follow I's and O's. Adequate urine output. - Nephrology signed off, reconsult if needed. - Creatinine much improved, 0.65. Elevated transaminases, resolved. 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 Decannulated 11/28/16, on supplemental O2. -Continue CPAP at night if sats drop <92%. -Pulmonary toilet, Continue Duonebs -Pulmonology following, appreciate input. -Colistin nebs stop date 11/14/2016 -History of cultures: Blood cultures 08/28: NGTD C Diff negative 08/28. Lines changed 08/28. Sputum 08/30 - Pseudomonas Sputum 09/02 PSAE, resistant to carbapenem, intermediate to Levaquin. 09/07 - urine -Maribell Guilliermondii 09/07 - blood cultures 2 - no growth 09/09 - urine -strep viridans, Maribell parapsilosis 09/10 - blood cultures 2 -no growth 09/11 - broch washings -no growth to date 09/12 - urine -Maribell glabrata and parapsilosis 09/16 - blood cultures 2 - pending 09/16 - sputum -no growth 09/16 - urine -Maribell glabrata and parapsilosis 10/02 - blood cultures 2 - staph epi 10/02 - urine - ESBL positive Klebsiella 10/04 - blood cultures 2 -no growth 10/05 - blood cultures 2 -no growth 10/17 - blood cultures -no growth 10/17 - sputum -Klebsiella ESBL positive and Stenotrophomonas maltophilia 10/17 - urine -C glabrata 10/21/ 10/22 - urine - ESBL positive Klebsiella 10/24 Sputum culture for pseudomonas aeruginosa nad klebsiella pneumoniae ESBL + Left IJ/subclavian nonocclusive thrombus 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 Pharmacy consult for monitoring. -Continue to follow INR. Type 2 Diabetes mellitus, chronic: Continue diabetic diet. Right lateral malleolus wound Mild deep tissue injury, right and left buttock - Wound care saw pt on 11/20/16. Wound care assess patient 12/01/16 new recommendations include: Cleanse right lateral malleolus with NS and gauze. Apply Optifoam gentle every 3-5 days. (Available via mistogram only) Float heel and ankle off mattress surface by placing pillow underneath calf while in bed. Please apply skin prep to deep tissue injuries to bilateral buttocks BID and leave open to air Hypothyroidism, chronic: Synthroid 200mcg daily GI prophylaxis: Protonix 40mg Q12 DVT prophylaxis: Coumadin Case discussed with Pt, RN (Sadi), and Dr. Bocanegra. Discharge Planning Case management following [id number] facility is likely needed Alessandro Coyle Jr. Dec 04, 2016 17:37
[2016-12-04 20:00] VITALS: BP 123/71; PULSE 99; RESP 20; TEMP 97.6; O2SAT 96
[2016-12-04] MEDS ORDERED: MORPHINE SULFATE 8 MG/ML INJ IV PUSH PRN (21:04)
[2016-12-04] MEDS: PRAVASTATIN SOD 20 MG TAB PO SCH (21:06)
[2016-12-04] MEDS: MELATONIN 5 MG TAB PO SCH (21:06)
[2016-12-05] VITALS (8 sets, daily range): BP systolic 94–129; BP diastolic 58–83; PULSE 78–99; RESP 18–20; TEMP 96.7–97.9; O2SAT 95–99
[2016-12-05] MEDS: CHLORHEXIDINE GLUCONATE 2 % 1 PACK (2 CLOTHS) TOP SCH (04:00)
[2016-12-05] MEDS: QUEtiapine FUMARATE 25 MG TAB PO SCH ×3 (06:09→21:04)
[2016-12-05] MEDS: METOPROLOL TARTRATE 25 MG TAB PO SCH ×3 (06:09→21:04)
[2016-12-05] MEDS: LEVOTHYROXINE SODIUM 200 MCG TAB PO SCH (06:09)
[2016-12-05 08:02] LABS: INTERNATIONAL NORMALIZED RATIO 2.5 RATIO; PROTHROMBIN TIME - PATIENT 29.2 SEC (9.8-11.6)
[2016-12-05] MEDS: DOCUSATE SODIUM 50 MG/SENNA 8.6 MG TAB PO SCH ×2 (09:00→21:04)
[2016-12-05] MEDS: BENEPROTEIN POWDER 1 PACK G-TUBE SCH ×3 (09:00→16:28)
[2016-12-05] MEDS: EUCERIN CREAM 120 GM JAR TOPICAL SCH ×2 (09:00→21:03)
[2016-12-05] MEDS: ARTIFICIAL TEARS OPTH SOLN 15 ML BTL EACH EYE SCH ×3 (09:00→16:28)
[2016-12-05] MEDS: SODIUM CHLORIDE 0.9% FLUSH 10 ML FLUSH IVF SCH (09:03)
[2016-12-05] MEDS: FAMOTIDINE 20 MG TAB PO SCH ×2 (09:03→21:03)
--- NOTE | 2016-12-05 15:25 | HHI.PR ---
Subjective Remarks Follow up on patient with acute on chronic respiratory failure s/p tracheostomy. Patient seen and examined, lying in bed sleeping yet easily awakened, comfortable, in NAD Tolerating oral diet, She noted her diet was changed yesterday and voiced appreciation. On 2 L NC. Denied any acute events overnight. Pt noted she is standing a "little longer with Pt." Spoke of right foot weakness and foot drop. She reported PT is also "working on my left hand". Denies any recent fever, chills, cough, shortness of breath, abdominal pain, NVD , bloody urine or stool. Per Pt's RN (Janey) pt had no acute events overnight or since start of shift. Objective Vitals Vital Signs Date Time Temp Pulse Resp B/P Pulse Ox O2 Delivery O2 Flow Rate FiO2 12/05/16 14:07 96 Nasal Cannula 3.00 12/05/16 12:00 96.7 99 20 121/63 96 12/05/16 09:00 Nasal Cannula 2.00 12/05/16 08:00 96.7 78 19 117/61 97 12/05/16 04:00 97.5 86 20 106/65 97 12/05/16 00:00 97.9 81 20 129/74 99 12/04/16 23:30 Nasal Cannula 3.00 35 12/04/16 22:23 Nasal Cannula 3.00 12/04/16 20:00 97.6 99 20 123/71 96 12/04/16 16:00 98.9 100 18 120/81 94 I/O 12/04/16 12/04/16 12/04/16 12/05/16 12/05/16 12/05/16 07:00 15:00 23:00 07:00 15:00 23:00 Intake Total 240 ml 240 ml Balance 240 ml 240 ml Intake Oral 240 ml 240 ml # Voids 1 4 1 1 # Bowel Movements 0 1 Result Diagram: 12/02/16 0712 12/02/16 0816 Objective Remarks GENERAL: Pt laying a bed, t-tube removed, pt speaking, NAD. SKIN: Warm and dry. Wound noted on right lateral malleolus bandaged and covered with gauze. gauze on neck at site of former t-tube placement. HEAD: Normocephalic. EYES: No scleral icterus. No injection or drainage. NECK: Supple, trachea midline. No lymphadenopathy. CARDIOVASCULAR: Regular rate and rhythm without murmurs, gallops, or rubs. RESPIRATORY: Breath sounds equal bilaterally and without rhonchi or wheezes. No accessory muscle use. GASTROINTESTINAL: Abdomen soft, non-tender, nondistended. MUSCULOSKELETAL: No cyanosis, or edema. Left hand weakness present, gripping device provided by OT not immediately noted. 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 PSYCHIATRIC: Pt Alert and oriented x3. Pt smiling. Pleasant and cooperative. Procedures 09/15/2016 bronchoscopy 09/11/2016 bronchoscopy 09/10/2016 left IJ central venous line 08/28/2016 subclavian 7 German triple-lumen catheter left-sided. 08/18/2016 right arterial line 08/18/2016 right IJ central line Medications and IVs Current Medications Medications (Trade) Dose Ordered Sig/Josephine Route Start Time Stop Time Status Last Admin (Synthroid) 200 mcg DAILY@06 PO 08/15/16 06:00 12/05/16 06:09 (Pravachol) 20 mg HS PO 08/15/16 21:00 12/04/16 21:06 (Tylenol) 650 mg Q6H PRN PO 08/14/16 23:15 11/17/16 15:36 (Tears Naturale Opth Soln) 1 drop TID EACH EYE 08/15/16 09:00 12/05/16 13:00 (Zofran Inj) 4 mg Q6H PRN IV 08/14/16 23:15 Miscellaneous Information 1 Q361D XX 08/14/16 23:15 (Chlorhexidine 2% Cloth) Taper DAILY@04 TOP 08/15/16 04:00 08/11/17 03:59 12/05/16 04:00 (Chlorhexidine 2% Cloth) 3 pack UNSCH PRN TOP 08/14/16 23:15 (Beneprotein Powder) 2 pack TID G-TUBE 08/15/16 09:00 12/02/16 18:00 (D50w (Vial) Inj) 25 ml UNSCH PRN IV PUSH 08/16/16 09:15 (NS Flush) DAILY IVF 09/11/16 09:00 12/05/16 09:03 (Mannitol Inj) 12.5 gm UNSCH PRN IV 09/20/16 10:30 10/05/16 09:40 (Albumin 25% Inj) 25 gm UNSCH PRN IV 09/20/16 10:30 10/10/16 10:10 (NS Flush) 5 ml UNSCH PRN IV FLUSH 09/20/16 10:30 09/21/16 13:24 (Heparin Inj) UNSCH PRN .XX 09/20/16 10:30 10/12/16 10:48 (Gentamicin (Dialysis) Inj) 20 mg UNSCH PRN IV 09/20/16 10:30 10/14/16 12:35 (Zofran Inj) 4 mg UNSCH PRN IV 09/20/16 10:30 (Tylenol) 650 mg UNSCH PRN PO 09/20/16 10:30 (Benadryl) 25 mg UNSCH PRN PO 09/20/16 10:30 11/24/16 14:02 (Nitrostat Sl) 0.4 mg UNSCH PRN SL 09/20/16 10:30 (Gelfoam 12 Mm/7 Mm Top) 1 foam UNSCH PRN TOP 09/20/16 10:30 (Eucerin Cream) 1 applic BID TOPICAL 09/27/16 21:00 12/05/16 09:00 (SEROquel) 75 mg Q8HR PO 09/28/16 14:00 12/05/16 14:00 (NS Flush) UNSCH PRN IVF 09/29/16 12:45 11/30/16 20:39 (Heparin Inj) UNSCH PRN IV FLUSH 09/29/16 12:45 (Melatonin) 5 mg HS PO 10/07/16 21:00 12/04/16 21:06 (Ativan Inj) 1 mg Q6H PRN IV PUSH 10/15/16 11:45 11/11/16 22:23 (Nitroglycerin 2% Oint) 2 inch Q6HR PRN TOPICAL 10/21/16 13:15 (Levsin Liq) 0.125 mg Q4H PRN PO 10/26/16 12:30 11/13/16 05:27 (Sharlene-Colace) 2 tab BID PO 11/09/16 13:00 12/04/16 21:06 (Milk Of Magnesia Liq) 30 ml Q6H PRN PO 11/09/16 13:00 12/01/16 15:37 (Coumadin) 6 mg DAILY@16 PO 11/13/16 16:00 12/04/16 16:36 (Lopressor) 25 mg Q8HR PO 11/16/16 14:00 12/05/16 14:00 Famotidine 20 mg 20 mg BID PO 11/17/16 09:15 12/05/16 09:03 (Coumadin Consult Pharmacy) 0 ml @ 0 mls/hr UNSCH OTHER 11/18/16 09:30 (Proair Hfa Inh) 2 puff Q6H PRN INH 12/01/16 17:45 (Morphine Inj) 2 mg Q2H PRN IV PUSH 12/04/16 21:04 Urinary Catheter: No Date of Insertion: Nov 21, 2016 Date of Removal: Nov 30, 2016 A/P Assessment and Plan 56-year-old female admitted with respiratory failure and pneumonia, now with chronic tracheostomy and chronic respiratory failure. Acute toxic metabolic encephalopathy Critical care myopathy Agitated delirium - Resolved - Seroquel 75 mg every 8 hours for agitation - Melatonin 5mg po qHS for insomnia - Acetaminophen for fever/pain Hypertension, chronic Dyslipidemia, chronic - BP well controlled. Will continue Metoprolol, notice hold parameters. - Continue pravastatin. Acute kidney injury, resolved - Follow I's and O's. Adequate urine output. - Nephrology signed off, reconsult if needed. - Creatinine much improved, 0.65. Elevated transaminases, resolved. 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 Decannulated 11/28/16, on supplemental O2. -Continue CPAP at night if sats drop <92%. -Pulmonary toilet, Continue Duonebs -Pulmonology following, appreciate input. -Colistin nebs stop date 11/14/2016 -History of cultures: Blood cultures 08/28: NGTD C Diff negative 08/28. Lines changed 08/28. Sputum 08/30 - Pseudomonas Sputum 09/02 PSAE, resistant to carbapenem, intermediate to Levaquin. 09/07 - urine -Maribell Guilliermondii 09/07 - blood cultures 2 - no growth 09/09 - urine -strep viridans, Maribell parapsilosis 09/10 - blood cultures 2 -no growth 09/11 - broch washings -no growth to date 09/12 - urine -Maribell glabrata and parapsilosis 09/16 - blood cultures 2 - pending 09/16 - sputum -no growth 09/16 - urine -Maribell glabrata and parapsilosis 10/02 - blood cultures 2 - staph epi 10/02 - urine - ESBL positive Klebsiella 10/04 - blood cultures 2 -no growth 10/05 - blood cultures 2 -no growth 10/17 - blood cultures -no growth 10/17 - sputum -Klebsiella ESBL positive and Stenotrophomonas maltophilia 10/17 - urine -C glabrata 10/21/ 10/22 - urine - ESBL positive Klebsiella 10/24 Sputum culture for pseudomonas aeruginosa nad klebsiella pneumoniae ESBL + Left IJ/subclavian nonocclusive thrombus 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 Pharmacy consult for monitoring. -Continue to follow INR. Type 2 Diabetes mellitus, chronic: Continue diabetic diet. Right lateral malleolus wound Mild deep tissue injury, right and left buttock - Wound care saw pt on 11/20/16. Wound care assess patient 12/01/16 new recommendations include: Cleanse right lateral malleolus with NS and gauze. Apply Optifoam gentle every 3-5 days. (Available via mistogram only) Float heel and ankle off mattress surface by placing pillow underneath calf while in bed. Please apply skin prep to deep tissue injuries to bilateral buttocks BID and leave open to air Hypothyroidism, chronic: Synthroid 200mcg daily GI prophylaxis: Protonix 40mg Q12 DVT prophylaxis: Coumadin Case discussed with Pt, RN (Janey), and Dr. Bocanegra. Discharge Planning Case management following [id number] facility is likely needed Alessandro Coyle Jr. Dec 05, 2016 15:25
[2016-12-05] MEDS: WARFARIN SOD 6 MG TAB PO SCH (16:28)
--- NOTE | 2016-12-05 18:30 | HHI.PR ---
Subjective Remarks Trach site healed . and on N/C 2L. taking her diet well Overall much better. Objective Vital Signs Date Time Temp Pulse Resp B/P Pulse Ox O2 Delivery O2 Flow Rate FiO2 12/05/16 16:00 97.6 94 19 120/83 95 12/05/16 14:07 96 Nasal Cannula 3.00 12/05/16 12:00 96.7 99 20 121/63 96 12/05/16 09:00 Nasal Cannula 2.00 12/05/16 08:00 96.7 78 19 117/61 97 12/05/16 04:00 97.5 86 20 106/65 97 12/05/16 00:00 97.9 81 20 129/74 99 12/04/16 23:30 Nasal Cannula 3.00 35 12/04/16 22:23 Nasal Cannula 3.00 12/04/16 20:00 97.6 99 20 123/71 96 I/O 12/04/16 12/04/16 12/04/16 12/05/16 12/05/16 12/05/16 07:00 15:00 23:00 07:00 15:00 23:00 Intake Total 240 ml 240 ml 780 ml Output Total 3 ml Balance 240 ml 240 ml 777 ml Intake Oral 240 ml 240 ml 780 ml Output Urine Total 3 ml # Voids 1 4 1 1 # Bowel Movements 0 2 Result Diagram: 12/02/16 0712 12/02/16 0816 Objective Remarks This is an obese middle-aged white female who is in no distress HEENT: Head normocephalic.throat clear. Neck: No bruits, no thyroid enlargement.No lymphadenopathy.Healed trach scar Chest: Decreased breath sounds at bases.Clear lungs. Heart: Heart sounds were regular. S1-S2 no murmur, no S3. Abdomen: Soft, benign. No masses, or tenderness. Bowel sounds are active. Extremities:No edema . Neuro :Moves all limbs.no deficits. Alert and Oriented Assessment and Plan Assessment and Plan IMPRESSION 1. Acute hypercapnic respiratory failure.Resolving 2. Pulmonary edema. 3. Drug rash 4. Obstructive sleep apnea syndrome 5. Hypertension 6. Hypothyroidism. 7. MIKE Plan : 1. IS at bedside q3h 2. Arrange home o2 2L 3. PT and OT 4. Rehab placement 5. Add Ventolin HFA , 2 puffs qid prn 6. PFT if stable in am. Abimael Beck MD Dec 05, 2016 18:30
[2016-12-05] MEDS: PRAVASTATIN SOD 20 MG TAB PO SCH (21:03)
[2016-12-05] MEDS: MELATONIN 5 MG TAB PO SCH (21:03)
[2016-12-06] VITALS (8 sets, daily range): BP systolic 108–134; BP diastolic 63–87; PULSE 69–95; RESP 18–22; TEMP 95.5–97.6; O2SAT 95–97
[2016-12-06] MEDS: CHLORHEXIDINE GLUCONATE 2 % 1 PACK (2 CLOTHS) TOP SCH (04:00)
[2016-12-06] MEDS: METOPROLOL TARTRATE 25 MG TAB PO SCH ×3 (05:47→22:00)
[2016-12-06] MEDS: QUEtiapine FUMARATE 25 MG TAB PO SCH ×3 (05:47→22:01)
[2016-12-06] MEDS: LEVOTHYROXINE SODIUM 200 MCG TAB PO SCH (05:47)
[2016-12-06] MEDS: EUCERIN CREAM 120 GM JAR TOPICAL SCH ×2 (09:00→22:02)
[2016-12-06] MEDS: ARTIFICIAL TEARS OPTH SOLN 15 ML BTL EACH EYE SCH ×3 (09:00→20:11)
[2016-12-06] MEDS: BENEPROTEIN POWDER 1 PACK G-TUBE SCH ×3 (09:00→18:00)
[2016-12-06] MEDS: DOCUSATE SODIUM 50 MG/SENNA 8.6 MG TAB PO SCH ×2 (09:28→21:00)
[2016-12-06] MEDS: FAMOTIDINE 20 MG TAB PO SCH ×2 (09:28→22:01)
[2016-12-06] MEDS: SODIUM CHLORIDE 0.9% FLUSH 10 ML FLUSH IVF SCH (09:39)
--- NOTE | 2016-12-06 13:37 | HHI.PR ---
Subjective Remarks Follow up on patient with acute on chronic respiratory failure s/p tracheostomy. Patient seen and examined, lying in bed watching TV, comfortable, in NAD Tolerating oral diet, Pt stated she was pleased with recent changes to her diet. On 2 L NC. Denied any acute events overnight. Pt reported she continues to work with PT, gains being made for standing and sitting on couch. She noted she is taking "some steps" and is being "held up when I walk." She reported PT is addressing left hand issues. Pt noted she has to "get it fixed sos I can go back to cooking." Denies any recent fever, chills, cough, shortness of breath, abdominal pain, NVD , bloody urine or stool. Per Pt's RN (Howard) pt had no acute events overnight or since start of shift. Objective Vitals Vital Signs Date Time Temp Pulse Resp B/P Pulse Ox O2 Delivery O2 Flow Rate FiO2 12/06/16 12:07 96.4 87 22 133/77 96 12/06/16 10:12 95 2.00 12/06/16 08:02 95.5 89 20 120/87 95 12/06/16 05:08 97.5 88 18 129/72 97 12/06/16 00:28 97.6 69 18 134/81 97 12/05/16 21:00 129/75 12/05/16 20:42 99 Nasal Cannula 2.00 12/05/16 20:10 97.3 90 18 94/58 99 12/05/16 16:00 97.6 94 19 120/83 95 12/05/16 14:07 96 Nasal Cannula 3.00 I/O 12/05/16 12/05/16 12/05/16 12/06/16 12/06/16 12/06/16 07:00 15:00 23:00 07:00 15:00 23:00 Intake Total 780 ml 480 ml Output Total 3 ml Balance 777 ml 480 ml Intake Oral 780 ml 480 ml Output Urine Total 3 ml # Voids 1 4 # Bowel Movements 2 Result Diagram: 12/02/16 0712 12/02/16 0816 Objective Remarks GENERAL: Pt laying a bed, pt speaking, NAD. SKIN: Warm and dry. Wound noted on right lateral malleolus bandaged and covered with gauze. gauze on neck at site of former t-tube placement. HEAD: Normocephalic. EYES: No scleral icterus. No injection or drainage. NECK: Supple, trachea midline. No lymphadenopathy. CARDIOVASCULAR: Regular rate and rhythm without murmurs, gallops, or rubs. RESPIRATORY: Breath sounds equal bilaterally and without rhonchi or wheezes. No accessory muscle use. GASTROINTESTINAL: Abdomen soft, non-tender, nondistended. MUSCULOSKELETAL: No cyanosis, or edema. Left hand weakness noted. 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 PSYCHIATRIC: Pt Alert and oriented x3. Pt smiling. Pleasant and cooperative. Procedures 09/15/2016 bronchoscopy 09/11/2016 bronchoscopy 09/10/2016 left IJ central venous line 08/28/2016 subclavian 7 [place] triple-lumen catheter left-sided. 08/18/2016 right arterial line 08/18/2016 right IJ central line Medications and IVs Current Medications Medications (Trade) Dose Ordered Sig/Josephine Route Start Time Stop Time Status Last Admin (Synthroid) 200 mcg DAILY@06 PO 08/15/16 06:00 12/06/16 05:47 (Pravachol) 20 mg HS PO 08/15/16 21:00 12/05/16 21:03 (Tylenol) 650 mg Q6H PRN PO 08/14/16 23:15 11/17/16 15:36 (Tears Naturale Opth Soln) 1 drop TID EACH EYE 08/15/16 09:00 12/05/16 13:00 (Zofran Inj) 4 mg Q6H PRN IV 08/14/16 23:15 Miscellaneous Information 1 Q361D XX 08/14/16 23:15 (Chlorhexidine 2% Cloth) Taper DAILY@04 TOP 08/15/16 04:00 08/11/17 03:59 12/05/16 04:00 (Chlorhexidine 2% Cloth) 3 pack UNSCH PRN TOP 08/14/16 23:15 (Beneprotein Powder) 2 pack TID G-TUBE 08/15/16 09:00 12/02/16 18:00 (D50w (Vial) Inj) 25 ml UNSCH PRN IV PUSH 08/16/16 09:15 (NS Flush) DAILY IVF 09/11/16 09:00 12/06/16 09:39 (Mannitol Inj) 12.5 gm UNSCH PRN IV 09/20/16 10:30 10/05/16 09:40 (Albumin 25% Inj) 25 gm UNSCH PRN IV 09/20/16 10:30 10/10/16 10:10 (NS Flush) 5 ml UNSCH PRN IV FLUSH 09/20/16 10:30 09/21/16 13:24 (Heparin Inj) UNSCH PRN .XX 09/20/16 10:30 10/12/16 10:48 (Gentamicin (Dialysis) Inj) 20 mg UNSCH PRN IV 09/20/16 10:30 10/14/16 12:35 (Zofran Inj) 4 mg UNSCH PRN IV 09/20/16 10:30 (Tylenol) 650 mg UNSCH PRN PO 09/20/16 10:30 (Benadryl) 25 mg UNSCH PRN PO 09/20/16 10:30 11/24/16 14:02 (Nitrostat Sl) 0.4 mg UNSCH PRN SL 09/20/16 10:30 (Gelfoam 12 Mm/7 Mm Top) 1 foam UNSCH PRN TOP 09/20/16 10:30 (Eucerin Cream) 1 applic BID TOPICAL 09/27/16 21:00 12/06/16 09:00 (SEROquel) 75 mg Q8HR PO 09/28/16 14:00 12/06/16 05:47 (NS Flush) UNSCH PRN IVF 09/29/16 12:45 11/30/16 20:39 (Heparin Inj) UNSCH PRN IV FLUSH 09/29/16 12:45 (Melatonin) 5 mg HS PO 10/07/16 21:00 12/05/16 21:03 (Ativan Inj) 1 mg Q6H PRN IV PUSH 10/15/16 11:45 11/11/16 22:23 (Nitroglycerin 2% Oint) 2 inch Q6HR PRN TOPICAL 10/21/16 13:15 (Sharlene-Colace) 2 tab BID PO 11/09/16 13:00 12/06/16 09:28 (Milk Of Magnesia Liq) 30 ml Q6H PRN PO 11/09/16 13:00 12/01/16 15:37 (Coumadin) 6 mg DAILY@16 PO 11/13/16 16:00 12/05/16 16:28 (Lopressor) 25 mg Q8HR PO 11/16/16 14:00 12/06/16 05:47 Famotidine 20 mg 20 mg BID PO 11/17/16 09:15 12/06/16 09:28 (Coumadin Consult Pharmacy) 0 ml @ 0 mls/hr UNSCH OTHER 11/18/16 09:30 (Proair Hfa Inh) 2 puff Q6H PRN INH 12/01/16 17:45 Urinary Catheter: No Date of Insertion: Nov 21, 2016 Date of Removal: Nov 30, 2016 A/P Assessment and Plan 56-year-old female admitted with respiratory failure and pneumonia, now with chronic tracheostomy and chronic respiratory failure. Acute toxic metabolic encephalopathy Critical care myopathy Agitated delirium - Resolved - Seroquel 75 mg every 8 hours for agitation - Melatonin 5mg po qHS for insomnia - Acetaminophen for fever/pain -PT/OT treating; pt dependent for many of her ADL's. Hypertension, chronic Dyslipidemia, chronic - BP well controlled. Will continue Metoprolol, notice hold parameters. - Continue pravastatin. Acute kidney injury, resolved - Follow I's and O's. Adequate urine output. - Nephrology signed off, reconsult if needed. - Creatinine much improved, 0.65. Elevated transaminases, resolved. 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 Decannulated 11/28/16, on supplemental O2. -Continue CPAP at night if sats drop <92%. -Pulmonary toilet, Continue Duonebs -Pulmonology following, appreciate input. -Colistin nebs stop date 11/14/2016 -Pulmonary note indicated possible Pulmonary function test tomorrow (12/07/16) -History of cultures: Blood cultures 08/28: NGTD C Diff negative 08/28. Lines changed 08/28. Sputum 08/30 - Pseudomonas Sputum 09/02 PSAE, resistant to carbapenem, intermediate to Levaquin. 09/07 - urine -Maribell Guilliermondii 09/07 - blood cultures 2 - no growth 09/09 - urine -strep viridans, Maribell parapsilosis 09/10 - blood cultures 2 -no growth 09/11 - broch washings -no growth to date 09/12 - urine -Maribell glabrata and parapsilosis 09/16 - blood cultures 2 - pending 09/16 - sputum -no growth 09/16 - urine -Maribell glabrata and parapsilosis 10/02 - blood cultures 2 - staph epi 10/02 - urine - ESBL positive Klebsiella 10/04 - blood cultures 2 -no growth 10/05 - blood cultures 2 -no growth 10/17 - blood cultures -no growth 10/17 - sputum -Klebsiella ESBL positive and Stenotrophomonas maltophilia 10/17 - urine -C glabrata 10/21/ 10/22 - urine - ESBL positive Klebsiella 10/24 Sputum culture for pseudomonas aeruginosa nad klebsiella pneumoniae ESBL + Left IJ/subclavian nonocclusive thrombus 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 Pharmacy consult for monitoring. -Continue to follow INR. Type 2 Diabetes mellitus, chronic: Continue diabetic diet. Right lateral malleolus wound Mild deep tissue injury, right and left buttock - Wound care saw pt on 11/20/16. Wound care assess patient 12/01/16 new recommendations include: Cleanse right lateral malleolus with NS and gauze. Apply Optifoam gentle every 3-5 days. (Available via mistogram only) Float heel and ankle off mattress surface by placing pillow underneath calf while in bed. Please apply skin prep to deep tissue injuries to bilateral buttocks BID and leave open to air Hypothyroidism, chronic: Synthroid 200mcg daily GI prophylaxis: Protonix 40mg Q12 DVT prophylaxis: Coumadin Case discussed with Pt, RN (Howard), and Dr. Walsh. Discharge Planning Case management following [id number] facility is likely needed Alessandro Coyle Jr. Dec 06, 2016 13:37
[2016-12-06] MEDS: WARFARIN SOD 6 MG TAB PO SCH (16:01)
--- NOTE | 2016-12-06 19:04 | HHI.PR ---
Subjective Remarks No complaints, and on N/C 2L. taking her diet well Feels better. Objective Vital Signs Date Time Temp Pulse Resp B/P Pulse Ox O2 Delivery O2 Flow Rate FiO2 12/06/16 16:12 95.8 95 20 128/79 97 12/06/16 12:07 96.4 87 22 133/77 96 12/06/16 10:12 95 2.00 12/06/16 08:02 95.5 89 20 120/87 95 12/06/16 05:08 97.5 88 18 129/72 97 12/06/16 00:28 97.6 69 18 134/81 97 12/05/16 21:00 129/75 12/05/16 20:42 99 Nasal Cannula 2.00 12/05/16 20:10 97.3 90 18 94/58 99 I/O 12/05/16 12/05/16 12/05/16 12/06/16 12/06/16 12/06/16 07:00 15:00 23:00 07:00 15:00 23:00 Intake Total 780 ml 480 ml 480 ml Output Total 3 ml Balance 777 ml 480 ml 480 ml Intake Oral 780 ml 480 ml 480 ml Output Urine Total 3 ml # Voids 1 4 1 # Bowel Movements 2 Result Diagram: 12/02/16 0712 12/02/16 0816 Objective Remarks This is an obese middle-aged white female who is in no distress HEENT: Head normocephalic.throat clear. Neck: No bruits, no thyroid enlargement.No lymphadenopathy.Healed trach scar Chest: Decreased breath sounds at bases.Occ wheeze Heart: Heart sounds were regular. S1-S2 no murmur, no S3. Abdomen: Soft, benign. No masses, or tenderness. Bowel sounds are active. Extremities:No edema . Neuro :Moves all limbs.no deficits. Alert and Oriented Assessment and Plan Assessment and Plan IMPRESSION 1. Acute hypercapnic respiratory failure.Resolving 2. Pulmonary edema. 3. Drug rash 4. Obstructive sleep apnea syndrome 5. Hypertension 6. Hypothyroidism. 7. MIKE Plan : 1. IS at bedside q3h 2. Arrange home o2 2L 3. PT and OT 4. Rehab placement 5. Add Ventolin HFA , 2 puffs qid prn 6. CBC,BMP. Abimael Beck MD Dec 06, 2016 19:04
[2016-12-06] MEDS: LORazepam 1 MG TAB PO PRN (21:59)
[2016-12-06] MEDS: PRAVASTATIN SOD 20 MG TAB PO SCH (21:59)
[2016-12-06] MEDS: ACETAMINOPHEN 325 MG TAB PO PRN (22:00)
[2016-12-06] MEDS: MELATONIN 5 MG TAB PO SCH (22:00)
[2016-12-07] VITALS (8 sets, daily range): BP systolic 106–126; BP diastolic 61–83; PULSE 62–112; RESP 18–20; TEMP 95.6–96.9; O2SAT 94–99
[2016-12-07] MEDS: CHLORHEXIDINE GLUCONATE 2 % 1 PACK (2 CLOTHS) TOP SCH (04:00)
[2016-12-07] MEDS: FAMOTIDINE 20 MG TAB PO SCH ×2 (07:46→23:20)
[2016-12-07] MEDS: DOCUSATE SODIUM 50 MG/SENNA 8.6 MG TAB PO SCH ×2 (07:46→21:00)
[2016-12-07] MEDS: EUCERIN CREAM 120 GM JAR TOPICAL SCH ×2 (07:47→23:22)
[2016-12-07] MEDS: LEVOTHYROXINE SODIUM 200 MCG TAB PO SCH (07:52)
[2016-12-07] MEDS: QUEtiapine FUMARATE 25 MG TAB PO SCH ×3 (07:52→23:28)
[2016-12-07] MEDS: METOPROLOL TARTRATE 25 MG TAB PO SCH ×3 (07:53→23:21)
[2016-12-07] MEDS: ARTIFICIAL TEARS OPTH SOLN 15 ML BTL EACH EYE SCH ×3 (07:57→18:00)
[2016-12-07] MEDS: BENEPROTEIN POWDER 1 PACK G-TUBE SCH ×3 (07:57→18:00)
[2016-12-07] MEDS: SODIUM CHLORIDE 0.9% FLUSH 10 ML FLUSH IVF SCH (09:00)
[2016-12-07 12:19] LABS: AUTOMATED NEUTROPHIL # 3.6 TH/MM3 (1.8-7.7); BASOPHIL # 0.1 TH/MM3 (0-0.2); BASOPHIL % 0.8 % (0.0-2.0); EOSINOPHIL # 0.3 TH/MM3 (0-0.4); EOSINOPHIL % 3.7 % (0.0-4.0); HEMATOCRIT 35.9 % (35.0-46.0); HEMO FLAGS DIFF FINAL; LYMPH % 42.3 % (9.0-44.0); LYMPHOCYTE # 3.4 TH/MM3 (1.0-4.8); MEAN CELL VOLUME 82.7 FL (80.0-100.0); MEAN CORPUSCULAR HEMOGLOBIN 27.6 PG (27.0-34.0); MEAN CORPUSCULAR HGB CONC 33.3 % (32.0-36.0); MONO % 8.6 % (0.0-8.0); NEUT % 44.6 % (16.0-70.0); PLATELET COUNT 303 TH/MM3 (150-450); RED BLOOD COUNT 4.34 MIL/MM3 (4.00-5.30); RED CELL DISTRIBUTION WIDTH 15.5 % (11.6-17.2); WHITE BLOOD COUNT 8.1 TH/MM3 (4.0-11.0)
[2016-12-07 12:27] LABS: INTERNATIONAL NORMALIZED RATIO 2.5 RATIO; PROTHROMBIN TIME - PATIENT 28.2 SEC (9.8-11.6)
--- NOTE | 2016-12-07 13:53 | HHI.PR ---
Subjective Remarks Follow up on patient with acute on chronic respiratory failure s/p tracheostomy. Patient seen and examined, lying in sleeping, easily awakened, comfortable, in NAD Tolerating oral diet, Pt noted no difficulties swallowing food from recent changes to her diet. On 2 L NC. Denied any acute events overnight. Pt noted her physical therapy continues, reportedly walked from bed for about 5 feet. She noted she is not getting out of bed without assistance from pt. She spoke of performing her exercises in bed. Pt informed of plan to transfer her to [facility]; pt stated "Dr. Pawel Hyde doesn't want me to go." Clinician had discussed transfer with Dr. Beck on 12/[address] Beck in agreement at that time." Pt denied pulmonary function test being performed. Denies any recent fever, chills, cough, shortness of breath, abdominal pain, NVD , bloody urine or stool. Per Pt's RN (Howard) pt had no acute events overnight or since start of shift. Objective Vitals Vital Signs Date Time Temp Pulse Resp B/P Pulse Ox O2 Delivery O2 Flow Rate FiO2 12/07/16 13:34 96 Nasal Cannula 2.00 12/07/16 12:06 96.7 83 20 126/83 97 12/07/16 08:11 95.8 112 20 121/75 94 12/07/16 04:00 96.7 85 18 108/74 99 12/07/16 01:30 Trach Collar 28 12/07/16 00:00 96.4 78 18 106/64 95 12/06/16 20:00 96.0 82 18 108/63 95 12/06/16 19:52 96 Nasal Cannula 2.00 12/06/16 16:12 95.8 95 20 128/79 97 I/O 12/06/16 12/06/16 12/06/16 12/07/16 12/07/16 12/07/16 07:00 15:00 23:00 07:00 15:00 23:00 Intake Total 480 ml 480 ml 360 ml Balance 480 ml 480 ml 360 ml Intake Oral 480 ml 480 ml 360 ml # Voids 4 1 1 # Bowel Movements 1 Result Diagram: 12/07/16 1117 Objective Remarks GENERAL: Pt laying a bed, sleeping, easily awakened, pt speaking, NAD. SKIN: Warm and dry. Wound noted on right lateral malleolus bandaged and covered with gauze. HEAD: Normocephalic. EYES: No scleral icterus. No injection or drainage. NECK: Supple, trachea midline. No lymphadenopathy. CARDIOVASCULAR: Regular rate and rhythm without murmurs, gallops, or rubs. RESPIRATORY: Breath sounds equal bilaterally and without rhonchi or wheezes. No accessory muscle use. GASTROINTESTINAL: Abdomen soft, non-tender, nondistended. MUSCULOSKELETAL: No cyanosis, or edema. Left hand weakness noted. 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 PSYCHIATRIC: Pt Alert and oriented x3. Pt smiling. Pleasant and cooperative. Procedures 09/15/2016 bronchoscopy 09/11/2016 bronchoscopy 09/10/2016 left IJ central venous line 08/28/2016 subclavian 7 [place] triple-lumen catheter left-sided. 08/18/2016 right arterial line 08/18/2016 right IJ central line Medications and IVs Current Medications Medications (Trade) Dose Ordered Sig/Josephine Route Start Time Stop Time Status Last Admin (Synthroid) 200 mcg DAILY@06 PO 08/15/16 06:00 12/07/16 07:52 (Pravachol) 20 mg HS PO 08/15/16 21:00 12/06/16 21:59 (Tylenol) 650 mg Q6H PRN PO 08/14/16 23:15 12/06/16 22:00 (Tears Naturale Opth Soln) 1 drop TID EACH EYE 08/15/16 09:00 12/06/16 20:11 (Zofran Inj) 4 mg Q6H PRN IV 08/14/16 23:15 Miscellaneous Information 1 Q361D XX 08/14/16 23:15 (Chlorhexidine 2% Cloth) 3 pack Taper DAILY@04 TOP 08/15/16 04:00 08/11/17 03:59 12/05/16 04:00 (Chlorhexidine 2% Cloth) 3 pack UNSCH PRN TOP 08/14/16 23:15 (Beneprotein Powder) 2 pack TID G-TUBE 08/15/16 09:00 12/02/16 18:00 (D50w (Vial) Inj) 25 ml UNSCH PRN IV PUSH 08/16/16 09:15 (NS Flush) DAILY IVF 09/11/16 09:00 12/06/16 09:39 (Eucerin Cream) 1 applic BID TOPICAL 09/27/16 21:00 12/07/16 07:47 (SEROquel) 75 mg Q8HR PO 09/28/16 14:00 12/07/16 07:52 (NS Flush) UNSCH PRN IVF 09/29/16 12:45 11/30/16 20:39 (Heparin Inj) UNSCH PRN IV FLUSH 09/29/16 12:45 (Melatonin) 5 mg HS PO 10/07/16 21:00 12/06/16 22:00 (Nitroglycerin 2% Oint) 2 inch Q6HR PRN TOPICAL 10/21/16 13:15 (Sharlene-Colace) 2 tab BID PO 11/09/16 13:00 12/07/16 07:46 (Milk Of Fritz Litelma) 30 ml Q6H PRN PO 11/09/16 13:00 12/01/16 15:37 (Coumadin) 6 mg DAILY@16 PO 11/13/16 16:00 12/06/16 16:01 (Lopressor) 25 mg Q8HR PO 11/16/16 14:00 12/07/16 07:53 Famotidine 20 mg 20 mg BID PO 11/17/16 09:15 12/07/16 07:46 (Coumadin Consult Pharmacy) 0 ml @ 0 mls/hr UNSCH OTHER 11/18/16 09:30 (Proair Hfa Inh) 2 puff Q6H PRN INH 12/01/16 17:45 (Ativan) 1 mg Q6H PRN PO 12/06/16 14:15 12/06/16 21:59 Urinary Catheter: No Date of Insertion: Nov 21, 2016 Date of Removal: Nov 30, 2016 A/P Assessment and Plan 56-year-old female admitted with respiratory failure and pneumonia, now with chronic tracheostomy and chronic respiratory failure. Acute toxic metabolic encephalopathy Critical care myopathy Agitated delirium - Resolved - Seroquel 75 mg every 8 hours for agitation - Melatonin 5mg po qHS for insomnia - Acetaminophen for fever/pain -PT/OT treating; pt dependent for many of her ADL's. Hypertension, chronic Dyslipidemia, chronic - BP well controlled. Will continue Metoprolol, notice hold parameters. - Continue pravastatin. Acute kidney injury, resolved - Follow I's and O's. Adequate urine output. - Nephrology signed off, reconsult if needed. - Creatinine much improved, 0.65. Elevated transaminases, resolved. 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 Decannulated 11/28/16, on supplemental O2. -Continue CPAP at night if sats drop <92%. -Pulmonary toilet, Continue Duonebs -Pulmonology following, appreciate input. -Colistin nebs stop date 11/14/2016 -Pulmonary note indicated possible Pulmonary function test tomorrow (12/07/16) -History of cultures: Blood cultures 08/28: NGTD C Diff negative 08/28. Lines changed 08/28. Sputum 08/30 - Pseudomonas Sputum 09/02 PSAE, resistant to carbapenem, intermediate to Levaquin. 09/07 - urine -Maribell Guilliermondii 09/07 - blood cultures 2 - no growth 09/09 - urine -strep viridans, Maribell parapsilosis 09/10 - blood cultures 2 -no growth 09/11 - broch washings -no growth to date 09/12 - urine -Maribell glabrata and parapsilosis 09/16 - blood cultures 2 - pending 09/16 - sputum -no growth 09/16 - urine -Maribell glabrata and parapsilosis 10/02 - blood cultures 2 - staph epi 10/02 - urine - ESBL positive Klebsiella 10/04 - blood cultures 2 -no growth 10/05 - blood cultures 2 -no growth 10/17 - blood cultures -no growth 10/17 - sputum -Klebsiella ESBL positive and Stenotrophomonas maltophilia 10/17 - urine -C glabrata 10/21/ 10/22 - urine - ESBL positive Klebsiella 10/24 Sputum culture for pseudomonas aeruginosa nad klebsiella pneumoniae ESBL + Left IJ/subclavian nonocclusive thrombus 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 Pharmacy consult for monitoring. -Continue to follow INR. Type 2 Diabetes mellitus, chronic: Continue diabetic diet. Right lateral malleolus wound Mild deep tissue injury, right and left buttock - Wound care saw pt on 11/20/16. Wound care assess patient 12/01/16 new recommendations include: Cleanse right lateral malleolus with NS and gauze. Apply Optifoam gentle every 3-5 days. (Available via mistogram only) Float heel and ankle off mattress surface by placing pillow underneath calf while in bed. Please apply skin prep to deep tissue injuries to bilateral buttocks BID and leave open to air Hypothyroidism, chronic: Synthroid 200 mcg daily GI prophylaxis: Protonix 40mg Q12 DVT prophylaxis: Coumadin Case discussed with Pt, RN (Howard), and Dr. Walsh. Discharge Planning Case management following [id number] facility is likely needed. Consider transfer to [place] for [facility], pending Dr. Pawel hyde's approval. Alessandro Coyle Jr. SCOOTER Dec 07, 2016 13:53
[2016-12-07] MEDS: WARFARIN SOD 6 MG TAB PO SCH (16:51)
--- NOTE | 2016-12-07 18:21 | HHI.PR ---
Subjective Remarks No complaints, and on N/C 2L. No neck pain. Wound is n healing. Objective Vital Signs Date Time Temp Pulse Resp B/P Pulse Ox O2 Delivery O2 Flow Rate FiO2 12/07/16 18:01 94 Nasal Cannula 2.00 12/07/16 16:02 95.6 104 20 119/70 94 12/07/16 13:34 96 Nasal Cannula 2.00 12/07/16 12:06 96.7 83 20 126/83 97 12/07/16 08:11 95.8 112 20 121/75 94 12/07/16 04:00 96.7 85 18 108/74 99 12/07/16 01:30 Trach Collar 28 12/07/16 00:00 96.4 78 18 106/64 95 12/06/16 20:00 96.0 82 18 108/63 95 12/06/16 19:52 96 Nasal Cannula 2.00 I/O 12/06/16 12/06/16 12/06/16 12/07/16 12/07/16 12/07/16 07:00 15:00 23:00 07:00 15:00 23:00 Intake Total 480 ml 480 ml 360 ml 480 ml Balance 480 ml 480 ml 360 ml 480 ml Intake Oral 480 ml 480 ml 360 ml 480 ml # Voids 4 1 3 # Bowel Movements 1 Result Diagram: 12/07/16 1117 Objective Remarks This is an obese middle-aged white female who is in no distress HEENT: Head normocephalic.throat clear. Neck: No bruits, no thyroid enlargement.No lymphadenopathy.Healed trach scar Chest: Decreased breath sounds at bases.Occ wheeze upper chest. Heart: Heart sounds were regular. S1-S2 no murmur, no S3. Abdomen: Soft, benign. No masses, or tenderness. Bowel sounds are active. Extremities:No edema . Neuro :Moves all limbs.no deficits. Alert and Oriented Assessment and Plan Assessment and Plan IMPRESSION 1. Acute hypercapnic respiratory failure.Resolving 2. Pulmonary edema. 3. Drug rash 4. Obstructive sleep apnea syndrome 5. Hypertension 6. Hypothyroidism. 7. MIKE Plan : 1. Chest X ray in am 2. Arrange home o2 2L 3. PT and OT 4. Rehab placement 5. Add Ventolin HFA , 2 puffs qid prn 6. OK to transfer to [facility]. Abimael Beck MD Dec 07, 2016 18:21
[2016-12-07] MEDS: MELATONIN 5 MG TAB PO SCH (23:20)
[2016-12-07] MEDS: LORazepam 1 MG TAB PO PRN (23:20)
[2016-12-07] MEDS: PRAVASTATIN SOD 20 MG TAB PO SCH (23:20)
[2016-12-07] MEDS: ACETAMINOPHEN 325 MG TAB PO PRN (23:21)
[2016-12-08] VITALS (7 sets, daily range): BP systolic 112–123; BP diastolic 62–87; PULSE 80–95; RESP 18–20; TEMP 96.7–99.2; O2SAT 93–96
[2016-12-08] MEDS: CHLORHEXIDINE GLUCONATE 2 % 1 PACK (2 CLOTHS) TOP SCH (04:00)
[2016-12-08] MEDS: METOPROLOL TARTRATE 25 MG TAB PO SCH ×3 (06:29→22:28)
[2016-12-08] MEDS: LEVOTHYROXINE SODIUM 200 MCG TAB PO SCH (06:29)
[2016-12-08] MEDS: QUEtiapine FUMARATE 25 MG TAB PO SCH ×3 (06:29→22:28)
[2016-12-08] MEDS: ACETAMINOPHEN 325 MG TAB PO PRN (06:30)
--- NOTE | 2016-12-08 06:54 | RADRPT ---
EXAM DATE/TIME: 12/08/2016 06:26 [place] COMPARISON: CHEST SINGLE AP, November 30, 2016, 5:02. INDICATIONS : Short of breath, evaluate infiltrate MEDICAL HISTORY : Congestive heart failure. pneumonia SURGICAL HISTORY : None. ENCOUNTER: Subsequent ACUITY: 2 months PAIN SCORE: 0/10 LOCATION: Bilateral chest FINDINGS: Cardiomegaly. No definite consolidation or effusion. Osseous structures are intact. CONCLUSION: No acute disease. Terry Estrada MD on December 08, 2016 at 6:53 Board Certified Radiologist. This report was verified electronically.
[2016-12-08] MEDS: FAMOTIDINE 20 MG TAB PO SCH ×2 (08:54→22:29)
[2016-12-08] MEDS: DOCUSATE SODIUM 50 MG/SENNA 8.6 MG TAB PO SCH ×2 (08:55→21:00)
[2016-12-08] MEDS: ARTIFICIAL TEARS OPTH SOLN 15 ML BTL EACH EYE SCH ×3 (09:00→16:54)
[2016-12-08] MEDS: EUCERIN CREAM 120 GM JAR TOPICAL SCH ×2 (09:00→22:32)
[2016-12-08] MEDS: BENEPROTEIN POWDER 1 PACK G-TUBE SCH ×3 (09:00→16:56)
[2016-12-08] MEDS: SODIUM CHLORIDE 0.9% FLUSH 10 ML FLUSH IVF SCH (09:00)
--- NOTE | 2016-12-08 12:35 | HHI.PR ---
Subjective Remarks Follow up on patient with acute on chronic respiratory failure s/p tracheostomy and debility. Patient seen and examined, lying in bed awake and watching TV, comfortable, in NAD Tolerating oral diet, Pt continues to report no difficulties swallowing food from recent changes to her diet. On 2 L NC. Denied any acute events overnight. Pt noted her physical therapy continues. Pt spoke of limited ambulation due to weakness and painful right ankle. Pt said she is sitting up on couch at bedside. Pt inquired about chest xray performed this morning, informed of negative results. Denies any recent fever, chills, cough, shortness of breath, abdominal pain, NVD , bloody urine or stool. Per Pt's RN (Beto) pt had no acute events overnight or since start of shift. Objective Vitals Vital Signs Date Time Temp Pulse Resp B/P Pulse Ox O2 Delivery O2 Flow Rate FiO2 12/08/16 09:33 95 Nasal Cannula 2.00 12/08/16 09:07 Nasal Cannula 2.00 12/08/16 04:00 96.9 80 18 112/71 94 12/08/16 02:00 Nasal Cannula 2.00 12/08/16 00:37 96.7 91 18 123/69 93 12/07/16 21:05 96.9 62 18 126/61 94 12/07/16 18:01 94 Nasal Cannula 2.00 12/07/16 16:02 95.6 104 20 119/70 94 12/07/16 13:34 96 Nasal Cannula 2.00 I/O 12/07/16 12/07/16 12/07/16 12/08/16 12/08/16 12/08/16 06:59 14:59 22:59 06:59 14:59 22:59 Intake Total 480 ml 240 ml 240 ml Balance 480 ml 240 ml 240 ml Intake Oral 480 ml 240 ml 240 ml # Voids 3 2 2 # Bowel Movements 1 1 Result Diagram: 12/07/16 1117 Objective Remarks GENERAL: Pt laying a bed, awake, watching tv, pt speaking, NAD. SKIN: Warm and dry. Wound noted on right lateral malleolus bandaged and covered with gauze. bandage noted at site of previously placed t-tube. HEAD: Normocephalic. EYES: No scleral icterus. No injection or drainage. NECK: Supple, trachea midline. No lymphadenopathy. CARDIOVASCULAR: Regular rate and rhythm without murmurs, gallops, or rubs. RESPIRATORY: Breath sounds equal bilaterally and without rhonchi or wheezes. No accessory muscle use. GASTROINTESTINAL: Abdomen soft, non-tender, nondistended. MUSCULOSKELETAL: No cyanosis, or edema. Left hand weakness noted. 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 PSYCHIATRIC: Pt Alert and oriented x3. Pt smiling. Pleasant and cooperative. Procedures 09/15/2016 bronchoscopy 09/11/2016 bronchoscopy 09/10/2016 left IJ central venous line 08/28/2016 subclavian 7 Micronesian triple-lumen catheter left-sided. 08/18/2016 right arterial line 08/18/2016 right IJ central line Medications and IVs Current Medications Medications (Trade) Dose Ordered Sig/Josephine Route Start Time Stop Time Status Last Admin (Synthroid) 200 mcg DAILY@06 PO 08/15/16 06:00 12/08/16 06:29 (Pravachol) 20 mg HS PO 08/15/16 21:00 12/07/16 23:20 (Tylenol) 650 mg Q6H PRN PO 08/14/16 23:15 12/08/16 06:30 (Tears Naturale Opth Soln) 1 drop TID EACH EYE 08/15/16 09:00 12/07/16 18:00 (Zofran Inj) 4 mg Q6H PRN IV 08/14/16 23:15 Miscellaneous Information 1 Q361D XX 08/14/16 23:15 (Chlorhexidine 2% Cloth) 3 pack Taper DAILY@04 TOP 08/15/16 04:00 08/11/17 03:59 12/05/16 04:00 (Chlorhexidine 2% Cloth) 3 pack UNSCH PRN TOP 08/14/16 23:15 (Beneprotein Powder) 2 pack TID G-TUBE 08/15/16 09:00 12/02/16 18:00 (D50w (Vial) Inj) 25 ml UNSCH PRN IV PUSH 08/16/16 09:15 (NS Flush) DAILY IVF 09/11/16 09:00 12/08/16 09:00 (Eucerin Cream) 1 applic BID TOPICAL 09/27/16 21:00 12/08/16 09:00 (SEROquel) 75 mg Q8HR PO 09/28/16 14:00 12/08/16 06:29 (NS Flush) UNSCH PRN IVF 09/29/16 12:45 11/30/16 20:39 (Heparin Inj) UNSCH PRN IV FLUSH 09/29/16 12:45 (Melatonin) 5 mg HS PO 10/07/16 21:00 12/07/16 23:20 (Nitroglycerin 2% Oint) 2 inch Q6HR PRN TOPICAL 10/21/16 13:15 (Sharlene-Colace) 2 tab BID PO 11/09/16 13:00 12/07/16 07:46 (Milk Of Magnaurora Liq) 30 ml Q6H PRN PO 11/09/16 13:00 12/01/16 15:37 (Coumadin) 6 mg DAILY@16 PO 11/13/16 16:00 12/07/16 16:51 (Lopressor) 25 mg Q8HR PO 11/16/16 14:00 12/08/16 06:29 Famotidine 20 mg 20 mg BID PO 11/17/16 09:15 12/08/16 08:54 (Coumadin Consult Pharmacy) 0 ml @ 0 mls/hr UNSCH OTHER 11/18/16 09:30 (Proair Hfa Inh) 2 puff Q6H PRN INH 12/01/16 17:45 (Ativan) 1 mg Q6H PRN PO 12/06/16 14:15 12/07/16 23:20 Urinary Catheter: No Date of Insertion: Nov 21, 2016 Date of Removal: Nov 30, 2016 A/P Assessment and Plan 56-year-old female admitted with respiratory failure and pneumonia, now with chronic tracheostomy and chronic respiratory failure. Acute toxic metabolic encephalopathy Critical care myopathy Agitated delirium Debility - Resolved - Seroquel 75 mg every 8 hours for agitation - Melatonin 5mg po qHS for insomnia - Acetaminophen for fever/pain -PT/OT treating; pt dependent for many of her ADL's. Hypertension, chronic Dyslipidemia, chronic - BP well controlled. Will continue Metoprolol, notice hold parameters. - Continue pravastatin. Acute kidney injury, resolved - Follow I's and O's. Adequate urine output. - Nephrology signed off, reconsult if needed. - Creatinine much improved, 0.65. Elevated transaminases, resolved. 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 Decannulated 11/28/16, on supplemental O2. -Continue CPAP at night if sats drop <92%. -Pulmonary toilet, Continue Duonebs -Pulmonology following, appreciate input. -Colistin nebs stop date 11/14/2016 -Pulmonary note indicated possible Pulmonary function test tomorrow (12/07/16) -History of cultures: Blood cultures 08/28: NGTD C Diff negative 08/28. Lines changed 08/28. Sputum 08/30 - Pseudomonas Sputum 09/02 PSAE, resistant to carbapenem, intermediate to Levaquin. 09/07 - urine -Maribell Guilliermondii 09/07 - blood cultures 2 - no growth 09/09 - urine -strep viridans, Maribell parapsilosis 09/10 - blood cultures 2 -no growth 09/11 - broch washings -no growth to date 09/12 - urine -Maribell glabrata and parapsilosis 09/16 - blood cultures 2 - pending 09/16 - sputum -no growth 09/16 - urine -Maribell glabrata and parapsilosis 10/02 - blood cultures 2 - staph epi 10/02 - urine - ESBL positive Klebsiella 10/04 - blood cultures 2 -no growth 10/05 - blood cultures 2 -no growth 10/17 - blood cultures -no growth 10/17 - sputum -Klebsiella ESBL positive and Stenotrophomonas maltophilia 10/17 - urine -C glabrata 10/21/ 10/22 - urine - ESBL positive Klebsiella 10/24 Sputum culture for pseudomonas aeruginosa nad klebsiella pneumoniae ESBL + Left IJ/subclavian nonocclusive thrombus 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 Pharmacy consult for monitoring. -Continue to follow INR. Type 2 Diabetes mellitus, chronic: Continue diabetic diet. Right lateral malleolus wound Mild deep tissue injury, right and left buttock - Wound care saw pt on 11/20/16. Wound care assess patient 12/01/16 new recommendations include: Cleanse right lateral malleolus with NS and gauze. Apply Optifoam gentle every 3-5 days. (Available via mistogram only) Float heel and ankle off mattress surface by placing pillow underneath calf while in bed. Please apply skin prep to deep tissue injuries to bilateral buttocks BID and leave open to air Hypothyroidism, chronic: Synthroid 200 mcg daily GI prophylaxis: Protonix 40mg Q12 DVT prophylaxis: Coumadin Case discussed with Pt, RN (Beto), and Dr. Walsh. case discussed with Dr. Reynolds in advance of pt's transfer to [facility] Discharge Planning Case management following [id number] is likely needed. 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 Pawel hyde's approval. Alessandro Coyle Jr. Dec 08, 2016 12:35
[2016-12-08] MEDS: WARFARIN SOD 6 MG TAB PO SCH (16:53)
--- NOTE | 2016-12-08 18:11 | HHI.PR ---
Subjective Remarks No complaints, and on N/C 2L. No neck pain. Wound is healed Objective Vital Signs Date Time Temp Pulse Resp B/P Pulse Ox O2 Delivery O2 Flow Rate FiO2 12/08/16 18:05 93 Nasal Cannula 2.00 12/08/16 16:14 97.8 94 19 120/62 93 12/08/16 12:56 96.8 92 20 121/78 95 12/08/16 09:33 95 Nasal Cannula 2.00 12/08/16 09:07 Nasal Cannula 2.00 12/08/16 04:00 96.9 80 18 112/71 94 12/08/16 02:00 Nasal Cannula 2.00 12/08/16 00:37 96.7 91 18 123/69 93 12/07/16 21:05 96.9 62 18 126/61 94 I/O 12/07/16 12/07/16 12/07/16 12/08/16 12/08/16 12/08/16 07:00 15:00 23:00 07:00 15:00 23:00 Intake Total 480 ml 240 ml 240 ml Balance 480 ml 240 ml 240 ml Intake Oral 480 ml 240 ml 240 ml # Voids 3 2 2 1 0 # Bowel Movements 1 1 1 Result Diagram: 12/07/16 1117 Objective Remarks This is an obese middle-aged white female who is in no distress HEENT: Head normocephalic.throat clear. Neck: No bruits, no thyroid enlargement.No lymphadenopathy.Healed trach scar Chest: Decreased breath sounds at bases.Occ wheeze. Heart: Heart sounds were regular. S1-S2 no murmur, no S3. Abdomen: Soft, benign. No masses, or tenderness. Bowel sounds are active. Extremities:No edema . Neuro :Moves all limbs.no deficits. Alert and Oriented Assessment and Plan Assessment and Plan IMPRESSION 1. Acute hypercapnic respiratory failure.Resolving 2. Pulmonary edema. 3. Drug rash 4. Obstructive sleep apnea syndrome 5. Hypertension 6. Hypothyroidism. 7. MIKE Plan : 1. CBC,BMP Sunday 2. Arrange home o2 2L 3. PT and OT 4. Rehab placement 5. Add Ventolin HFA , 2 puffs qid prn 6. OK to transfer to [facility] [place]. Abimael Beck MD Dec 08, 2016 18:11
[2016-12-08] MEDS: MELATONIN 5 MG TAB PO SCH (22:28)
[2016-12-08] MEDS: PRAVASTATIN SOD 20 MG TAB PO SCH (22:29)
[2016-12-09] MEDS: CHLORHEXIDINE GLUCONATE 2 % 1 PACK (2 CLOTHS) TOP SCH (03:38)
[2016-12-09] MEDS: LEVOTHYROXINE SODIUM 200 MCG TAB PO SCH (05:40)
[2016-12-09] MEDS: METOPROLOL TARTRATE 25 MG TAB PO SCH ×3 (05:40→21:29)
[2016-12-09] MEDS: QUEtiapine FUMARATE 25 MG TAB PO SCH ×3 (05:40→21:29)
[2016-12-09 07:35] VITALS: O2SAT 94
[2016-12-09 08:00] VITALS: BP 106/84; PULSE 79; RESP 18; TEMP 96.8; O2SAT 96
[2016-12-09] MEDS: FAMOTIDINE 20 MG TAB PO SCH ×2 (08:51→21:29)
[2016-12-09] MEDS: DOCUSATE SODIUM 50 MG/SENNA 8.6 MG TAB PO SCH ×2 (08:52→21:28)
[2016-12-09] MEDS: BENEPROTEIN POWDER 1 PACK G-TUBE SCH ×3 (09:00→16:34)
[2016-12-09] MEDS: SODIUM CHLORIDE 0.9% FLUSH 10 ML FLUSH IVF SCH (09:02)
[2016-12-09] MEDS: ARTIFICIAL TEARS OPTH SOLN 15 ML BTL EACH EYE SCH ×3 (09:02→16:34)
[2016-12-09] MEDS: EUCERIN CREAM 120 GM JAR TOPICAL SCH ×2 (09:03→21:00)
[2016-12-09 11:50] LABS: INTERNATIONAL NORMALIZED RATIO 2.2 RATIO; PROTHROMBIN TIME - PATIENT 25.4 SEC (9.8-11.6)
[2016-12-09 12:30] VITALS: BP 110/80; PULSE 80; RESP 18; TEMP 97; O2SAT 96
--- NOTE | 2016-12-09 14:36 | HHI.PR ---
Subjective Remarks Late entry. Patient evaluated this morning. Follow-up for chronic respiratory failure. Patient was transferred from the main hospital to [place] last night for convalescence and she is awaiting placement. The patient initially presented to the ED on 08/14 with respiratory distress and UTI symptoms. She was found to have CHF and respiratory failure. She was intubated and on a ventilator. She is status post tracheostomy and PEG tube placement. She underwent hemodialysis from 09/20 to 10/14. Pulmonology last evaluated the patient yesterday. Patient is currently stable on oxygen via nasal cannula. The patient denies any fevers or chills. Denies any shortness of breath. Objective Vitals Vital Signs Date Time Temp Pulse Resp B/P Pulse Ox O2 Delivery O2 Flow Rate FiO2 12/09/16 09:30 Nasal Cannula 2.00 28 12/09/16 08:00 96.8 79 18 106/84 96 12/09/16 07:35 94 Nasal Cannula 2.00 12/08/16 21:30 99.2 95 18 118/87 96 12/08/16 20:00 Nasal Cannula 2.00 12/08/16 18:05 93 Nasal Cannula 2.00 12/08/16 16:14 97.8 94 19 120/62 93 I/O 12/08/16 12/08/16 12/08/16 12/09/16 12/09/16 12/09/16 07:00 15:00 23:00 07:00 15:00 23:00 Intake Total 240 ml Balance 240 ml Intake Oral 240 ml # Voids 2 1 2 1 # Bowel Movements 1 2 0 Result Diagram: 12/07/16 1117 Objective Remarks GENERAL: Morbidly obese female in no apparent distress. CARDIOVASCULAR: Regular rate and rhythm. RESPIRATORY: Limited auscultation as patient cannot lean forward for exam. No accessory muscle use. Clear to auscultation. Breath sounds equal bilaterally. GASTROINTESTINAL: Abdomen soft, non-tender, nondistended. NEUROLOGICAL: Awake and alert. Normal speech. PSYCHIATRIC: Appropriate mood and affect; insight and judgment normal. Procedures 09/15/2016 bronchoscopy 09/11/2016 bronchoscopy 09/10/2016 left IJ central venous line 08/28/2016 subclavian 7 Swedish triple-lumen catheter left-sided. 08/18/2016 right arterial line 08/18/2016 right IJ central line Urinary Catheter: No Date of Insertion: Nov 21, 2016 Date of Removal: Nov 30, 2016 Vascular Central Line Catheter: No A/P Assessment and Plan 56-year-old female admitted with respiratory failure and pneumonia, now with chronic respiratory failure. Acute on chronic hypercapnic and hypoxemic respiratory failure, probable JOE -S/p tracheostomy. Decannulated 11/28/16, on supplemental O2. -Sputum culture with Pseudomonas aeruginosa and Klebsiella ESBL positive -Continue CPAP at night if sats drop <92%. -Chest x-ray 12/08 without acute disease. -Pulmonology last evaluated the patient yesterday. Recommends CBC and BMP on Sunday. Continue albuterol 2 puffs every 6 hours as needed for shortness of breath. Debilitation: Requires assistance for ADLs. -PT and OT following Acute toxic metabolic encephalopathy/delirium: Resolved -Seroquel 75 mg every 8 hours for agitation -Melatonin 5mg po qHS for insomnia Hypertension: chronic, well controlled -Continue metoprolol Dyslipidemia: chronic -Continue pravastatin. Acute kidney injury: resolved. Creatinine much improved, 0.65. -S/p hemodialysis -Nephrology signed off, reconsult if needed. 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 Pharmacy consult for monitoring. -Continue to follow INR. Type 2 Diabetes mellitus, chronic: Continue diabetic diet. Right lateral malleolus wound Mild deep tissue injury, right and left buttock -Wound care following. Cleanse right lateral malleolus with NS and gauze. Apply Optifoam gentle every 3-5 days. -Float heel and ankle off mattress surface by placing pillow underneath calf while in bed. Please apply skin prep to deep tissue injuries to bilateral buttocks BID and leave open to air Hypothyroidism, chronic: -Continue Synthroid 200 mcg daily GI prophylaxis: Protonix 40mg Q12 DVT prophylaxis: Coumadin Discharge Planning SSI pending. Patient requires SNF placement. Kalyani Taveras Dec 09, 2016 14:36
[2016-12-09] MEDS: WARFARIN SOD 6 MG TAB PO SCH (16:34)
[2016-12-09 17:00] VITALS: BP 123/77; PULSE 82; RESP 18; TEMP 97.7; O2SAT 96
[2016-12-09 19:45] VITALS: O2SAT 95
[2016-12-09 20:00] VITALS: BP 106/77; PULSE 90; RESP 20; TEMP 97.4; O2SAT 96
[2016-12-09] MEDS: MELATONIN 5 MG TAB PO SCH (21:00)
[2016-12-09] MEDS: PRAVASTATIN SOD 20 MG TAB PO SCH (21:29)
[2016-12-10] VITALS: BP 119/78; PULSE 99; RESP 18; TEMP 96.5; O2SAT 96
[2016-12-10] MEDS: CHLORHEXIDINE GLUCONATE 2 % 1 PACK (2 CLOTHS) TOP SCH (03:21)
[2016-12-10] MEDS: LEVOTHYROXINE SODIUM 200 MCG TAB PO SCH (05:37)
[2016-12-10] MEDS: QUEtiapine FUMARATE 25 MG TAB PO SCH ×3 (05:37→21:27)
[2016-12-10] MEDS: METOPROLOL TARTRATE 25 MG TAB PO SCH ×3 (05:37→21:27)
[2016-12-10 08:00] VITALS: BP 101/73; PULSE 83; RESP 18; TEMP 96.9; O2SAT 94; O2SAT 96
[2016-12-10] MEDS: BENEPROTEIN POWDER 1 PACK G-TUBE SCH ×3 (09:00→16:39)
[2016-12-10] MEDS: DOCUSATE SODIUM 50 MG/SENNA 8.6 MG TAB PO SCH ×2 (09:00→21:26)
[2016-12-10] MEDS: FAMOTIDINE 20 MG TAB PO SCH ×2 (09:35→21:27)
[2016-12-10] MEDS: SODIUM CHLORIDE 0.9% FLUSH 10 ML FLUSH IVF SCH (09:37)
[2016-12-10] MEDS: ARTIFICIAL TEARS OPTH SOLN 15 ML BTL EACH EYE SCH ×3 (09:37→16:39)
[2016-12-10] MEDS: EUCERIN CREAM 120 GM JAR TOPICAL SCH ×2 (09:37→21:00)
--- NOTE | 2016-12-10 10:08 | HHI.PR ---
Subjective Remarks Follow-up for chronic respiratory failure. Patient currently on nasal cannula. Denies any shortness of breath. Objective Vitals Vital Signs Date Time Temp Pulse Resp B/P Pulse Ox O2 Delivery O2 Flow Rate FiO2 12/10/16 00:00 96.5 99 18 119/78 96 12/09/16 20:00 97.4 90 20 106/77 96 12/09/16 19:45 95 Nasal Cannula 2.00 12/09/16 17:00 97.7 82 18 123/77 96 12/09/16 12:30 97.0 80 18 110/80 96 I/O 12/09/16 12/09/16 12/09/16 12/10/16 12/10/16 12/10/16 07:00 15:00 23:00 07:00 15:00 23:00 Intake Total 240 ml 240 ml Output Total 650 ml Balance 240 ml -410 ml Intake Oral 240 ml 240 ml Output Urine Total 650 ml # Voids 1 1 1 # Bowel Movements 0 0 0 Result Diagram: 12/07/16 1117 Objective Remarks GENERAL: Morbidly obese female in no apparent distress. CARDIOVASCULAR: Regular rate and rhythm. RESPIRATORY: Limited exam as patient cannot sit forward for exam. No accessory muscle use. Clear to auscultation. Breath sounds equal bilaterally. GASTROINTESTINAL: Abdomen soft, non-tender, nondistended. MUSCULOSKELETAL: No lower extremity edema bilaterally. NEUROLOGICAL: Awake and alert. Normal speech. PSYCHIATRIC: Appropriate mood and affect. Procedures 09/15/2016 bronchoscopy 09/11/2016 bronchoscopy 09/10/2016 left IJ central venous line 08/28/2016 subclavian 7 Pashto triple-lumen catheter left-sided. 08/18/2016 right arterial line 08/18/2016 right IJ central line Urinary Catheter: No Date of Insertion: Nov 21, 2016 Date of Removal: Nov 30, 2016 Vascular Central Line Catheter: No A/P Assessment and Plan 56-year-old female admitted with respiratory failure and pneumonia, now with chronic respiratory failure. Acute on chronic hypercapnic and hypoxemic respiratory failure, probable JOE -S/p tracheostomy. Decannulated 11/28/16, on supplemental O2. -Sputum culture with Pseudomonas aeruginosa and Klebsiella ESBL positive -Continue CPAP at night if sats drop <92%. -Chest x-ray 12/08 without acute disease. -Pulmonology last evaluated the patient on 12/08. Continue albuterol 2 puffs every 6 hours as needed for shortness of breath. Debilitation: Requires assistance for ADLs. -PT and OT following Acute toxic metabolic encephalopathy/delirium: Resolved -Seroquel 75 mg every 8 hours for agitation -Melatonin 5mg po qHS for insomnia Hypertension: chronic, well controlled -Continue metoprolol Dyslipidemia: chronic -Continue pravastatin. Acute kidney injury: resolved. Creatinine much improved, 0.65. -S/p hemodialysis -Nephrology signed off. -Does have mild pre-renal azotemia. Repeat BMP in the am to evaluate for resolution or worsening. 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 Pharmacy consult for monitoring. -Continue to follow INR. Type 2 Diabetes mellitus, chronic: Continue diabetic diet. Right lateral malleolus wound Mild deep tissue injury, right and left buttock -Wound care following. Cleanse right lateral malleolus with NS and gauze. Apply Optifoam gentle every 3-5 days. -Float heel and ankle off mattress surface by placing pillow underneath calf while in bed. Please apply skin prep to deep tissue injuries to bilateral buttocks BID and leave open to air Hypothyroidism, chronic: -Continue Synthroid 200 mcg daily GI prophylaxis: Protonix 40mg Q12 DVT prophylaxis: Coumadin Discharge Planning SSI pending. Patient requires SNF placement. Kalyani Taveras Dec 10, 2016 10:08
[2016-12-10] MEDS: WARFARIN SOD 6 MG TAB PO SCH (15:54)
[2016-12-10 20:00] VITALS: BP 111/70; PULSE 73; RESP 20; TEMP 96.9; O2SAT 95
[2016-12-10 21:00] VITALS: O2SAT 96
[2016-12-10] MEDS: MELATONIN 5 MG TAB PO SCH (21:00)
[2016-12-10] MEDS: PRAVASTATIN SOD 20 MG TAB PO SCH (21:27)
[2016-12-11] MEDS: CHLORHEXIDINE GLUCONATE 2 % 1 PACK (2 CLOTHS) TOP SCH (04:00)
[2016-12-11] MEDS: LEVOTHYROXINE SODIUM 200 MCG TAB PO SCH (06:00)
[2016-12-11] MEDS: METOPROLOL TARTRATE 25 MG TAB PO SCH ×3 (06:22→21:45)
[2016-12-11] MEDS: QUEtiapine FUMARATE 25 MG TAB PO SCH ×3 (06:22→21:45)
[2016-12-11 08:00] VITALS: BP 122/78; PULSE 91; RESP 19; TEMP 96.9; O2SAT 96
[2016-12-11 08:23] VITALS: O2SAT 96
[2016-12-11] MEDS: BENEPROTEIN POWDER 1 PACK G-TUBE SCH ×3 (09:24→16:40)
[2016-12-11] MEDS: ARTIFICIAL TEARS OPTH SOLN 15 ML BTL EACH EYE SCH ×3 (09:24→16:40)
[2016-12-11] MEDS: SODIUM CHLORIDE 0.9% FLUSH 10 ML FLUSH IVF SCH (09:25)
[2016-12-11] MEDS: FAMOTIDINE 20 MG TAB PO SCH ×2 (09:25→21:45)
[2016-12-11] MEDS: DOCUSATE SODIUM 50 MG/SENNA 8.6 MG TAB PO SCH ×2 (09:25→21:45)
[2016-12-11] MEDS: EUCERIN CREAM 120 GM JAR TOPICAL SCH ×2 (09:26→21:00)
[2016-12-11 10:02] LABS: INTERNATIONAL NORMALIZED RATIO 2.2 RATIO; PROTHROMBIN TIME - PATIENT 24.6 SEC (9.8-11.6)
[2016-12-11 10:04] LABS: POTASSIUM 3.8 MEQ/L (3.5-5.1)
[2016-12-11 10:11] LABS: BICARBONATE 29.3 MEQ/L (21.0-32.0)
[2016-12-11 10:30] VITALS: TEMP 96.9
--- NOTE | 2016-12-11 11:43 | HHI.PR ---
Subjective Remarks Follow-up for chronic respiratory failure. Patient denies any fevers or chills , shortness of breath, or cough. The CLINICAL STATISTICAL PROGRAMMER had inquired about the patient's mobility status as she is requiring bedpan usage. The patient states she has had generalized weakness since she was hospitalized. She states she was independent with ADLs at home prior to hospitalization. She states she does get up with physical therapy only but is unable to support herself when she stands. She states her left hand feels cold and she cannot extend the fingers of her left hand which makes it difficult to use a walker. Objective Vitals Vital Signs Date Time Temp Pulse Resp B/P Pulse Ox O2 Delivery O2 Flow Rate FiO2 12/11/16 10:30 96.9 12/11/16 08:23 96 Nasal Cannula 2.00 12/11/16 08:00 96.9 91 19 122/78 96 12/11/16 07:25 Nasal Cannula 2.00 12/10/16 21:00 96 Nasal Cannula 2.00 12/10/16 20:00 96.9 73 20 111/70 95 I/O 12/10/16 12/10/16 12/10/16 12/11/16 12/11/16 12/11/16 06:59 14:59 22:59 06:59 14:59 22:59 Intake Total 240 ml 600 ml Output Total 650 ml Balance -410 ml 600 ml Intake Oral 240 ml 600 ml Output Urine Total 650 ml # Voids 1 3 2 # Bowel Movements 0 0 Result Diagram: 12/07/16 1117 12/11/16 0915 Objective Remarks GENERAL: Morbidly obese female in no apparent distress. CARDIOVASCULAR: Regular rate and rhythm. RESPIRATORY: No accessory muscle use. Clear to auscultation. Breath sounds equal bilaterally. GASTROINTESTINAL: Abdomen soft, non-tender, nondistended. MUSCULOSKELETAL: No lower extremity edema bilaterally. Patient holds left fingers in a curled position. 2+ left distal radial pulse. Capillary refill normal in digits of left hand. Patient has pain with extension of the left fingers. NEUROLOGICAL: Awake and alert. 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 5/5 quadriceps strength bilaterally. Normal speech. PSYCHIATRIC: Appropriate mood and affect. Procedures 09/15/2016 bronchoscopy 09/11/2016 bronchoscopy 09/10/2016 left IJ central venous line 08/28/2016 subclavian 7 Kenyan triple-lumen catheter left-sided. 08/18/2016 right arterial line 08/18/2016 right IJ central line Urinary Catheter: No Date of Insertion: Nov 21, 2016 Date of Removal: Nov 30, 2016 Vascular Central Line Catheter: No A/P Assessment and Plan 56-year-old female admitted with respiratory failure and pneumonia, now with chronic respiratory failure. Acute on chronic hypercapnic and hypoxemic respiratory failure, probable JOE -S/p tracheostomy. Decannulated 11/28/16, on supplemental O2. -Sputum culture with Pseudomonas aeruginosa and Klebsiella ESBL positive -Continue CPAP at night if sats drop <92%. -Chest x-ray 12/08 without acute disease. -Pulmonology last evaluated the patient on 12/08. Continue albuterol 2 puffs every 6 hours as needed for shortness of breath. Debilitation: Requires assistance for ADLs. -PT and OT following. OT is addressing L hand issues. -Per PT on 12/07, patient requires maximum assistance for sitting-->standing. She requires max x 2 assist with walking using rolling walker with platform for the left upper extremity only going 3 feet with poor+ balance. -Nursing inquired about patient getting oob. Activity status changed to OOB with assistance. Unsure if patient will be able to even use a bedside commode at this time though as patient requires significant assistance to even get up. Acute toxic metabolic encephalopathy/delirium: Resolved -Seroquel 75 mg every 8 hours for agitation -Melatonin 5mg po qHS for insomnia Hypertension: chronic, well controlled -Continue metoprolol Dyslipidemia: chronic -Continue pravastatin. Acute kidney injury: resolved. Creatinine much improved, 0.65. -S/p hemodialysis -Nephrology signed off. -Does have mild pre-renal azotemia. -12/11: BMP reviewed today. BUN stable. Monitor periodically. 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 Pharmacy consult for monitoring. -Continue to follow INR. Type 2 Diabetes mellitus, chronic: Continue diabetic diet. Right lateral malleolus wound Mild deep tissue injury, right and left buttock -Wound care following. Cleanse right lateral malleolus with NS and gauze. Apply Optifoam gentle every 3-5 days. -Float heel and ankle off mattress surface by placing pillow underneath calf while in bed. Apply skin prep to deep tissue injuries to bilateral buttocks BID and leave open to air. Hypothyroidism, chronic: -Continue Synthroid 200 mcg daily GI prophylaxis: Protonix 40mg Q12 DVT prophylaxis: Coumadin Discharge Planning SSI pending. Patient requires SNF placement. Kalyani Taveras Dec 11, 2016 11:43
[2016-12-11] MEDS: WARFARIN SOD 6 MG TAB PO SCH (16:00)
[2016-12-11 20:00] VITALS: BP 99/65; PULSE 78; RESP 18; TEMP 96.5; O2SAT 96
[2016-12-11 20:43] VITALS: O2SAT 94
[2016-12-11] MEDS: MELATONIN 5 MG TAB PO SCH (21:00)
[2016-12-11] MEDS: PRAVASTATIN SOD 20 MG TAB PO SCH (21:45)
[2016-12-12] MEDS: CHLORHEXIDINE GLUCONATE 2 % 1 PACK (2 CLOTHS) TOP SCH (04:00)
[2016-12-12] MEDS: QUEtiapine FUMARATE 25 MG TAB PO SCH ×3 (05:49→21:18)
[2016-12-12] MEDS: LEVOTHYROXINE SODIUM 200 MCG TAB PO SCH (05:49)
[2016-12-12] MEDS: METOPROLOL TARTRATE 25 MG TAB PO SCH ×3 (05:49→21:18)
[2016-12-12 06:02] LABS: INTERNATIONAL NORMALIZED RATIO 2.1 RATIO; PROTHROMBIN TIME - PATIENT 24.2 SEC (9.8-11.6)
[2016-12-12 07:20] VITALS: O2SAT 95
[2016-12-12 08:00] VITALS: BP 132/84; PULSE 70; RESP 20; TEMP 95.8; O2SAT 98
[2016-12-12] MEDS: ARTIFICIAL TEARS OPTH SOLN 15 ML BTL EACH EYE SCH ×2 (08:21→15:11)
[2016-12-12] MEDS: SODIUM CHLORIDE 0.9% FLUSH 10 ML FLUSH IVF SCH (08:21)
[2016-12-12] MEDS: DOCUSATE SODIUM 50 MG/SENNA 8.6 MG TAB PO SCH ×2 (08:22→20:44)
[2016-12-12] MEDS: BENEPROTEIN POWDER 1 PACK G-TUBE SCH ×3 (08:22→18:00)
[2016-12-12] MEDS: FAMOTIDINE 20 MG TAB PO SCH ×2 (08:22→20:44)
[2016-12-12] MEDS: EUCERIN CREAM 120 GM JAR TOPICAL SCH ×2 (08:22→20:45)
[2016-12-12] MEDS ORDERED: WARFARIN SOD 2 MG TAB PO ONE (10:00)
[2016-12-12 14:12] VITALS: BP 113/80; PULSE 87; RESP 18; TEMP 97.4; O2SAT 98
[2016-12-12] MEDS: WARFARIN SOD 6 MG TAB PO SCH (16:30)
--- NOTE | 2016-12-12 16:38 | HHI.PR ---
Subjective Remarks Patient seen and examined today for follow-up on diffuse weakness. Unfortunately patient is had long hospitalization due to respiratory failure, pneumonia. Patient is having good O2 saturations at this time. However she states that she is too weak to walk and can support her own weight. Objective Vitals Vital Signs Date Time Temp Pulse Resp B/P Pulse Ox O2 Delivery O2 Flow Rate FiO2 12/12/16 14:12 97.4 87 18 113/80 98 12/12/16 08:00 95.8 70 20 132/84 98 12/12/16 07:20 95 Nasal Cannula 2.00 12/11/16 20:43 94 Nasal Cannula 2.00 12/11/16 20:00 96.5 78 18 99/65 96 12/11/16 20:00 Nasal Cannula 2.00 I/O 12/11/16 12/11/16 12/11/16 12/12/16 12/12/16 12/12/16 07:00 15:00 23:00 07:00 15:00 23:00 Intake Total 0 ml 0 ml 480 ml Balance 0 ml 0 ml 480 ml Intake Oral 480 ml IV Total 0 ml 0 ml # Voids 2 2 5 # Bowel Movements 0 1 3 Result Diagram: 12/11/16 0915 Objective Remarks GENERAL: Well-developed, morbidly obese, in no acute distress. alert and orientated HEENT: Head is normocephalic without any lesions or masses noted. Facial features are symmetric. Eyes: Extraocular muscles are intact. Conjunctivae were clear. NECK: Trachea midline no deviation. CARDIAC: Regular rhythm, regular rate. S1/S2 are heard. No murmurs gallops or rubs. LUNGS: Clear to auscultation bilaterally. No wheeze, rhonchi or rales. No use of accessory muscles on inspiration or expiration. ABDOMEN: Soft, nontender. Nondistended. Bowel sounds heard in all 4 quadrants. No organomegaly or masses. Negative rebound, negative guarding EXTREMITIES: No edema, pulses are equal bilaterally. No cyanosis or clubbing NEUROLOGY: Mood and affect appear appropriate. Moving all extremities, speech is clear Procedures 09/15/2016 bronchoscopy 09/11/2016 bronchoscopy 09/10/2016 left IJ central venous line 08/28/2016 subclavian 7 Macedonian triple-lumen catheter left-sided. 08/18/2016 right arterial line 08/18/2016 right IJ central line Urinary Catheter: No Date of Insertion: Nov 21, 2016 Date of Removal: Nov 30, 2016 Vascular Central Line Catheter: No A/P Assessment and Plan Profound weakness, debilitation secondary to prolonged hospitalization Physical therapy 7 days a week Continue occupational therapy Get out of bed 3 times daily at least with meals Acute on chronic hypercapnic and hypoxemic respiratory failure, probable JOE, OHS S/p tracheostomy. Decannulated 11/28/16, on supplemental O2. Sputum culture with Pseudomonas aeruginosa and Klebsiella ESBL positive Continue to wean off oxygen Pulmonology following the patient Continue albuterol 2 puffs every 6 hours as needed for shortness of breath. Right lateral malleolus wound, Mild deep tissue injury, right and left buttock Wound care following. Cleanse right lateral malleolus with NS and gauze. Apply Optifoam gentle every 3-5 days. Float heel and ankle off mattress surface by placing pillow underneath calf while in bed. Apply skin prep to deep tissue injuries to bilateral buttocks BID and leave open to air. Acute toxic metabolic encephalopathy/delirium: Resolved Seroquel 75 mg every 8 hours for agitation Melatonin 5mg po qHS for insomnia Hypertension: chronic, well controlled Continue metoprolol Dyslipidemia: chronic -Continue pravastatin. Acute renal failure: resolved. S/p hemodialysis Nephrology signed off. Elevated transaminases: resolved Gallbladder ultrasound shows hepatomegaly with heterogeneous echotexture. Large echogenic area in the neck of the gallbladder suggestive of a stone Monitor clinically Left IJ/subclavian nonocclusive thrombus Continue Coumadin remains therapeutic, 2.2. Pharmacy consult for monitoring. Type 2 Diabetes mellitus, chronic: Continue diabetic diet. Hypothyroidism, chronic: Continue Synthroid 200 mcg daily GI prophylaxis: Protonix 40mg Q12 DVT prophylaxis: Coumadin Discharge Planning Discharge per case management. Documentation indicates that social security is pending, no accepting facility at this time Simeon Reyna Dec 12, 2016 16:38
[2016-12-12] MEDS ORDERED: ONDANSETRON ODT 4 MG TAB PO PRN (16:45)
[2016-12-12 20:00] VITALS: BP 104/74; PULSE 79; RESP 20; TEMP 97.5; O2SAT 99
[2016-12-12] MEDS: MELATONIN 5 MG TAB PO SCH (20:43)
[2016-12-12] MEDS: PRAVASTATIN SOD 20 MG TAB PO SCH (20:44)
[2016-12-13] MEDS: METOPROLOL TARTRATE 25 MG TAB PO SCH ×3 (05:42→21:27)
[2016-12-13] MEDS: QUEtiapine FUMARATE 25 MG TAB PO SCH ×3 (05:42→21:27)
[2016-12-13] MEDS: LEVOTHYROXINE SODIUM 200 MCG TAB PO SCH (05:43)
[2016-12-13 08:00] VITALS: BP 129/78; PULSE 78; RESP 19; TEMP 97.8; O2SAT 94
[2016-12-13] MEDS: DOCUSATE SODIUM 50 MG/SENNA 8.6 MG TAB PO SCH ×2 (08:57→21:19)
[2016-12-13] MEDS: FAMOTIDINE 20 MG TAB PO SCH ×2 (08:57→21:20)
[2016-12-13] MEDS: EUCERIN CREAM 120 GM JAR TOPICAL SCH ×2 (08:58→21:00)
[2016-12-13] MEDS: BENEPROTEIN POWDER 1 PACK G-TUBE SCH ×3 (08:59→18:00)
--- NOTE | 2016-12-13 11:28 | HHI.PR ---
Subjective Remarks Patient seen and examined today for follow-up on chronic respiratory failure, profound weakness. Patient states that she still has not gotten out of bed since yesterday. She states that she is doing exercises in bed. Patient's O2 supplementation have remained stable. She denies any new complaints. Objective Vitals Vital Signs Date Time Temp Pulse Resp B/P Pulse Ox O2 Delivery O2 Flow Rate FiO2 12/13/16 08:00 97.8 78 19 129/78 94 12/13/16 08:00 94 Nasal Cannula 2.00 12/12/16 22:38 Nasal Cannula 2.00 12/12/16 20:00 97.5 79 20 104/74 99 12/12/16 19:00 Nasal Cannula 2.00 12/12/16 14:12 97.4 87 18 113/80 98 I/O 12/12/16 12/12/16 12/12/16 12/13/16 12/13/16 12/13/16 07:00 15:00 23:00 07:00 15:00 23:00 Intake Total 480 ml 480 ml 240 ml Balance 480 ml 480 ml 240 ml Intake Oral 480 ml 480 ml 240 ml # Voids 5 1 1 # Bowel Movements 3 0 0 Result Diagram: 12/13/16 0545 Objective Remarks GENERAL: Well-developed, morbidly obese, in no acute distress. alert and orientated HEENT: Head is normocephalic without any lesions or masses noted. Facial features are symmetric. Eyes: Extraocular muscles are intact. Conjunctivae were clear. NECK: Trachea midline no deviation. CARDIAC: Regular rhythm, regular rate. S1/S2 are heard. No murmurs gallops or rubs. LUNGS: Clear to auscultation bilaterally. No wheeze, rhonchi or rales. No use of accessory muscles on inspiration or expiration. ABDOMEN: Soft, nontender. Nondistended. Bowel sounds heard in all 4 quadrants. No organomegaly or masses. Negative rebound, negative guarding EXTREMITIES: No edema, pulses are equal bilaterally. No cyanosis or clubbing NEUROLOGY: Mood and affect appear appropriate. Moving all extremities, speech is clear Procedures 09/15/2016 bronchoscopy 09/11/2016 bronchoscopy 09/10/2016 left IJ central venous line 08/28/2016 subclavian 7 Chinese triple-lumen catheter left-sided. 08/18/2016 right arterial line 08/18/2016 right IJ central line Urinary Catheter: No Date of Insertion: Nov 21, 2016 Date of Removal: Nov 30, 2016 Vascular Central Line Catheter: No A/P Assessment and Plan Profound weakness, debilitation secondary to prolonged hospitalization Physical therapy 7 days a week Continue occupational therapy Get out of bed 3 times daily at least with meals Acute on chronic hypercapnic and hypoxemic respiratory failure, probable JOE, OHS S/p tracheostomy. Decannulated 11/28/16, on supplemental O2. Sputum culture with Pseudomonas aeruginosa and Klebsiella ESBL positive Continue to wean off oxygen Pulmonology following the patient Right lateral malleolus wound, Mild deep tissue injury, right and left buttock Wound care following. Cleanse right lateral malleolus with NS and gauze. Apply Optifoam gentle every 3-5 days. Float heel and ankle off mattress surface by placing pillow underneath calf while in bed. Apply skin prep to deep tissue injuries to bilateral buttocks BID and leave open to air. Acute toxic metabolic encephalopathy/delirium: Resolved Seroquel 75 mg every 8 hours for agitation Melatonin 5mg po qHS for insomnia Hypertension: chronic, well controlled Continue metoprolol Dyslipidemia: chronic -Continue pravastatin. Acute renal failure: resolved. S/p hemodialysis Nephrology signed off. Elevated transaminases: resolved Gallbladder ultrasound shows hepatomegaly with heterogeneous echotexture. Large echogenic area in the neck of the gallbladder suggestive of a stone Monitor clinically Left IJ/subclavian nonocclusive thrombus Continue Coumadin remains therapeutic, 2.1. Pharmacy consult for monitoring. Type 2 Diabetes mellitus, chronic: Continue diabetic diet. Hypothyroidism, chronic: Continue Synthroid 200 mcg daily GI prophylaxis: Pepcid 20 mg twice daily DVT prophylaxis: Coumadin Discharge Planning Discharge per case management. Documentation indicates that social security is pending, no accepting facility at this time Simeon Reyna Dec 13, 2016 11:28
[2016-12-13] MEDS: ACETAMINOPHEN 325 MG TAB PO PRN ×2 (14:16→21:26)
[2016-12-13] MEDS: WARFARIN SOD 6 MG TAB PO SCH (18:06)
[2016-12-13 20:00] VITALS: BP 130/79; PULSE 86; RESP 20; TEMP 97.2; O2SAT 95
[2016-12-13 20:45] VITALS: O2SAT 95
[2016-12-13] MEDS: MELATONIN 5 MG TAB PO SCH (21:20)
[2016-12-13] MEDS: PRAVASTATIN SOD 20 MG TAB PO SCH (21:20)
[2016-12-14] MEDS: LEVOTHYROXINE SODIUM 200 MCG TAB PO SCH (05:51)
[2016-12-14] MEDS: QUEtiapine FUMARATE 25 MG TAB PO SCH ×3 (05:51→21:12)
[2016-12-14] MEDS: METOPROLOL TARTRATE 25 MG TAB PO SCH ×3 (05:51→21:12)
[2016-12-14 07:37] LABS: INTERNATIONAL NORMALIZED RATIO 2.5 RATIO; PROTHROMBIN TIME - PATIENT 28.4 SEC (9.8-11.6)
[2016-12-14 08:00] VITALS: BP 116/70; PULSE 66; RESP 18; TEMP 97.4; O2SAT 94
[2016-12-14] MEDS: DOCUSATE SODIUM 50 MG/SENNA 8.6 MG TAB PO SCH ×2 (09:00→20:49)
[2016-12-14] MEDS: FAMOTIDINE 20 MG TAB PO SCH ×2 (09:32→20:49)
[2016-12-14] MEDS: EUCERIN CREAM 120 GM JAR TOPICAL SCH ×2 (09:33→20:51)
--- NOTE | 2016-12-14 10:31 | HHI.PR ---
Subjective Remarks Patient seen and examined today for follow-up on profound weakness. Patient lying in bed. She did not get out of bed at all yesterday, except for standing up for short period with physical therapy. I discussed with her that she needed to get out of bed at least 3 times daily. Continue to increase her activity in order to regain her strength so she can ambulate again. Objective Vitals Vital Signs Date Time Temp Pulse Resp B/P Pulse Ox O2 Delivery O2 Flow Rate FiO2 12/13/16 22:26 16 12/13/16 20:45 95 Nasal Cannula 2.00 12/13/16 20:00 97.2 86 20 130/79 95 12/13/16 19:00 Nasal Cannula 2.00 12/13/16 17:12 Nasal Cannula 2.00 I/O 12/13/16 12/13/16 12/13/16 12/14/16 12/14/16 12/14/16 07:00 15:00 23:00 07:00 15:00 23:00 Intake Total 240 ml 480 ml 480 ml Balance 240 ml 480 ml 480 ml Intake Oral 240 ml 480 ml 480 ml # Voids 1 1 3 1 # Bowel Movements 0 1 0 0 Result Diagram: 12/13/16 0545 Objective Remarks GENERAL: Well-developed, morbidly obese, in no acute distress. alert and orientated HEENT: Head is normocephalic without any lesions or masses noted. Facial features are symmetric. Eyes: Extraocular muscles are intact. Conjunctivae were clear. NECK: Trachea midline no deviation. CARDIAC: Regular rhythm, regular rate. S1/S2 are heard. No murmurs gallops or rubs. LUNGS: Clear to auscultation bilaterally. No wheeze, rhonchi or rales. No use of accessory muscles on inspiration or expiration. ABDOMEN: Soft, nontender. Nondistended. Bowel sounds heard in all 4 quadrants. No organomegaly or masses. Negative rebound, negative guarding EXTREMITIES: No edema, pulses are equal bilaterally. No cyanosis or clubbing NEUROLOGY: Mood and affect appear appropriate. Moving all extremities, speech is clear Procedures 09/15/2016 bronchoscopy 09/11/2016 bronchoscopy 09/10/2016 left IJ central venous line 08/28/2016 subclavian 7 Bulgarian triple-lumen catheter left-sided. 08/18/2016 right arterial line 08/18/2016 right IJ central line Urinary Catheter: No Date of Insertion: Nov 21, 2016 Date of Removal: Nov 30, 2016 Vascular Central Line Catheter: No A/P Assessment and Plan Profound weakness, debilitation secondary to prolonged hospitalization Physical therapy 7 days a week Continue occupational therapy Get out of bed 3 times daily at least with meals Acute on chronic hypercapnic and hypoxemic respiratory failure, probable JOE, OHS S/p tracheostomy. Decannulated 11/28/16, on supplemental O2. Sputum culture with Pseudomonas aeruginosa and Klebsiella ESBL positive Continue to wean off oxygen Pulmonology following the patient Right lateral malleolus wound, Mild deep tissue injury, right and left buttock Wound care following. Cleanse right lateral malleolus with NS and gauze. Apply Optifoam gentle every 3-5 days. Float heel and ankle off mattress surface by placing pillow underneath calf while in bed. Apply skin prep to deep tissue injuries to bilateral buttocks BID and leave open to air. Acute toxic metabolic encephalopathy/delirium: Resolved Seroquel 75 mg every 8 hours for agitation Melatonin 5mg po qHS for insomnia Hypertension: chronic, well controlled Continue metoprolol Dyslipidemia: chronic -Continue pravastatin. Acute renal failure: resolved. S/p hemodialysis Nephrology signed off. Elevated transaminases: resolved Gallbladder ultrasound shows hepatomegaly with heterogeneous echotexture. Large echogenic area in the neck of the gallbladder suggestive of a stone Monitor clinically Left IJ/subclavian nonocclusive thrombus Continue Coumadin remains therapeutic, 2.5. Pharmacy consult for monitoring. Type 2 Diabetes mellitus, chronic: Continue diabetic diet. Hypothyroidism, chronic: Continue Synthroid 200 mcg daily GI prophylaxis: Pepcid 20 mg twice daily DVT prophylaxis: Coumadin Discharge Planning Discharge per case management. Documentation indicates that social security is pending, no accepting facility at this time Simeon Reyna Dec 14, 2016 10:31
[2016-12-14 10:57] VITALS: O2SAT 95
[2016-12-14] MEDS: WARFARIN SOD 6 MG TAB PO SCH (16:52)
[2016-12-14 20:00] VITALS: BP 114/84; PULSE 79; RESP 20; TEMP 97.2; O2SAT 94
[2016-12-14] MEDS: PRAVASTATIN SOD 20 MG TAB PO SCH (20:48)
[2016-12-14] MEDS: MELATONIN 5 MG TAB PO SCH (20:49)
[2016-12-14 21:05] VITALS: O2SAT 96
[2016-12-15] MEDS: LEVOTHYROXINE SODIUM 200 MCG TAB PO SCH (05:22)
[2016-12-15] MEDS: METOPROLOL TARTRATE 25 MG TAB PO SCH ×3 (05:22→22:13)
[2016-12-15] MEDS: QUEtiapine FUMARATE 25 MG TAB PO SCH ×3 (05:22→22:13)
[2016-12-15 08:00] VITALS: BP_SYST 107; BP_SYST 126; BP_DIAS 78; BP_DIAS 87; PULSE 73; PULSE 77; RESP 18; TEMP 97.8; TEMP 98.6; O2SAT 97
[2016-12-15] MEDS: FAMOTIDINE 20 MG TAB PO SCH ×2 (08:03→20:22)
[2016-12-15] MEDS: EUCERIN CREAM 120 GM JAR TOPICAL SCH ×2 (08:04→20:23)
[2016-12-15] MEDS: DOCUSATE SODIUM 50 MG/SENNA 8.6 MG TAB PO SCH ×2 (08:04→20:23)
--- NOTE | 2016-12-15 09:48 | HHI.PR ---
Subjective Remarks Patient seen and examined today for follow-up on profound weakness, patient lying in bed as usual. Physical therapy notified yesterday that she was able to stand up for longer period however patient defers bed transfer to chair. Objective Vitals Vital Signs Date Time Temp Pulse Resp B/P Pulse Ox O2 Delivery O2 Flow Rate FiO2 12/14/16 21:05 96 Nasal Cannula 2.00 12/14/16 20:30 Nasal Cannula 2.00 12/14/16 20:00 97.2 79 20 114/84 94 12/14/16 10:57 95 Nasal Cannula 2.00 I/O 12/14/16 12/14/16 12/14/16 12/15/16 12/15/16 12/15/16 06:59 14:59 22:59 06:59 14:59 22:59 Intake Total 480 ml 480 ml 240 ml Balance 480 ml 480 ml 240 ml Intake Oral 480 ml 480 ml 240 ml # Voids 1 3 2 # Bowel Movements 0 0 0 Result Diagram: 12/15/16 0710 Objective Remarks GENERAL: Well-developed, morbidly obese, in no acute distress. alert and orientated HEENT: Head is normocephalic without any lesions or masses noted. Facial features are symmetric. Eyes: Extraocular muscles are intact. Conjunctivae were clear. NECK: Trachea midline no deviation. CARDIAC: Regular rhythm, regular rate. S1/S2 are heard. No murmurs gallops or rubs. LUNGS: Clear to auscultation bilaterally. No wheeze, rhonchi or rales. No use of accessory muscles on inspiration or expiration. ABDOMEN: Soft, nontender. Nondistended. Bowel sounds heard in all 4 quadrants. No organomegaly or masses. Negative rebound, negative guarding EXTREMITIES: No edema, pulses are equal bilaterally. No cyanosis or clubbing NEUROLOGY: Mood and affect appear appropriate. Moving all extremities, speech is clear Procedures 09/15/2016 bronchoscopy 09/11/2016 bronchoscopy 09/10/2016 left IJ central venous line 08/28/2016 subclavian 7 Bahamian triple-lumen catheter left-sided. 08/18/2016 right arterial line 08/18/2016 right IJ central line Urinary Catheter: No Date of Insertion: Nov 21, 2016 Date of Removal: Nov 30, 2016 Vascular Central Line Catheter: No A/P Assessment and Plan Profound weakness, debilitation secondary to prolonged hospitalization Physical therapy 7 days a week Continue occupational therapy Get out of bed 3 times daily at least with meals Patient deferring advancement of care Acute on chronic hypercapnic and hypoxemic respiratory failure, probable JOE, OHS, stable S/p tracheostomy. Decannulated 11/28/16, on supplemental O2. Sputum culture with Pseudomonas aeruginosa and Klebsiella ESBL positive Continue to wean off oxygen Pulmonology following the patient Right lateral malleolus wound, Mild deep tissue injury, right and left buttock Wound care following. Cleanse right lateral malleolus with NS and gauze. Apply Optifoam gentle every 3-5 days. Float heel and ankle off mattress surface by placing pillow underneath calf while in bed. Apply skin prep to deep tissue injuries to bilateral buttocks BID and leave open to air. Acute toxic metabolic encephalopathy/delirium: Resolved Seroquel 75 mg every 8 hours for agitation Melatonin 5mg po qHS for insomnia Hypertension: chronic, well controlled Continue metoprolol Dyslipidemia: chronic -Continue pravastatin. Acute renal failure: resolved. S/p hemodialysis Nephrology signed off. Elevated transaminases: resolved Gallbladder ultrasound shows hepatomegaly with heterogeneous echotexture. Large echogenic area in the neck of the gallbladder suggestive of a stone Monitor clinically Left IJ/subclavian nonocclusive thrombus Continue Coumadin remains therapeutic, 2.5. Pharmacy consult for monitoring. Type 2 Diabetes mellitus, chronic: Continue diabetic diet. Hypothyroidism, chronic: Continue Synthroid 200 mcg daily GI prophylaxis: Pepcid 20 mg twice daily DVT prophylaxis: Coumadin Discharge Planning Discharge per case management. Documentation indicates that social security is pending, no accepting facility at this time Simeon Reyna Dec 15, 2016 09:48
[2016-12-15] MEDS: WARFARIN SOD 6 MG TAB PO SCH (14:03)
[2016-12-15 20:00] VITALS: BP 118/79; PULSE 79; RESP 20; TEMP 97.4; O2SAT 95
[2016-12-15] MEDS: MELATONIN 5 MG TAB PO SCH (20:22)
[2016-12-15] MEDS: PRAVASTATIN SOD 20 MG TAB PO SCH (20:23)
[2016-12-15 20:27] VITALS: O2SAT 96
[2016-12-16] MEDS: METOPROLOL TARTRATE 25 MG TAB PO SCH ×3 (05:36→21:14)
[2016-12-16] MEDS: LEVOTHYROXINE SODIUM 200 MCG TAB PO SCH (05:36)
[2016-12-16] MEDS: QUEtiapine FUMARATE 25 MG TAB PO SCH ×3 (05:36→21:14)
[2016-12-16 07:47] LABS: INTERNATIONAL NORMALIZED RATIO 2.6 RATIO; PROTHROMBIN TIME - PATIENT 30.1 SEC (9.8-11.6)
[2016-12-16 08:00] VITALS: BP 98/59; PULSE 71; RESP 20; TEMP 96.7; O2SAT 98
[2016-12-16] MEDS: DOCUSATE SODIUM 50 MG/SENNA 8.6 MG TAB PO SCH ×2 (09:00→20:51)
[2016-12-16 09:13] VITALS: O2SAT 92
[2016-12-16] MEDS: FAMOTIDINE 20 MG TAB PO SCH ×2 (09:21→20:51)
[2016-12-16] MEDS: EUCERIN CREAM 120 GM JAR TOPICAL SCH ×2 (09:22→20:52)
--- NOTE | 2016-12-16 10:36 | HHI.PR ---
Subjective Remarks Patient seen and examined today for follow-up on profound weakness. Patient did get up with physical therapy yesterday and to the chair. She is progressing slowly Objective Vitals Vital Signs Date Time Temp Pulse Resp B/P Pulse Ox O2 Delivery O2 Flow Rate FiO2 12/16/16 09:13 92 Nasal Cannula 2.00 12/16/16 08:00 Nasal Cannula 2.00 12/16/16 08:00 96.7 71 20 98/59 98 12/15/16 20:27 96 Nasal Cannula 2.00 12/15/16 20:25 Nasal Cannula 2.00 12/15/16 20:00 97.4 79 20 118/79 95 I/O 12/15/16 12/15/16 12/15/16 12/16/16 12/16/16 12/16/16 07:00 15:00 23:00 07:00 15:00 23:00 Intake Total 240 ml 600 ml 365 ml Output Total 1 ml Balance 240 ml 599 ml 365 ml Intake Oral 240 ml 600 ml 365 ml Stool Total 1 ml # Voids 2 4 2 # Bowel Movements 0 1 Result Diagram: 12/15/16 0710 Objective Remarks GENERAL: Well-developed, morbidly obese, in no acute distress. alert and orientated HEENT: Head is normocephalic without any lesions or masses noted. Facial features are symmetric. Eyes: Extraocular muscles are intact. Conjunctivae were clear. NECK: Trachea midline no deviation. CARDIAC: Regular rhythm, regular rate. S1/S2 are heard. No murmurs gallops or rubs. LUNGS: Clear to auscultation bilaterally. No wheeze, rhonchi or rales. No use of accessory muscles on inspiration or expiration. ABDOMEN: Soft, nontender. Nondistended. Bowel sounds heard in all 4 quadrants. No organomegaly or masses. Negative rebound, negative guarding EXTREMITIES: No edema, pulses are equal bilaterally. No cyanosis or clubbing NEUROLOGY: Mood and affect appear appropriate. Moving all extremities, speech is clear Procedures 09/15/2016 bronchoscopy 09/11/2016 bronchoscopy 09/10/2016 left IJ central venous line 08/28/2016 subclavian 7 Somali triple-lumen catheter left-sided. 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 Decannulated 11/28/16, on supplemental O2. Sputum culture with Pseudomonas aeruginosa and Klebsiella ESBL positive Continue to wean off oxygen Pulmonology following the patient Right lateral malleolus wound, Mild deep tissue injury, right and left buttock Wound care following. Cleanse right lateral malleolus with NS and gauze. Apply Optifoam gentle every 3-5 days. Float heel and ankle off mattress surface by placing pillow underneath calf while in bed. Apply skin prep to deep tissue injuries to bilateral buttocks BID and leave open to air. Acute toxic metabolic encephalopathy/delirium: Resolved Seroquel 75 mg every 8 hours for agitation Melatonin 5mg po qHS for insomnia Hypertension: chronic, well controlled Continue metoprolol Dyslipidemia: chronic -Continue pravastatin. Acute renal failure: resolved. S/p hemodialysis Nephrology signed off. Elevated transaminases: resolved Gallbladder ultrasound shows hepatomegaly with heterogeneous echotexture. Large echogenic area in the neck of the gallbladder suggestive of a stone Monitor clinically Left IJ/subclavian nonocclusive thrombus Continue Coumadin remains therapeutic, 2.6. Pharmacy consult for monitoring. Type 2 Diabetes mellitus, chronic: Continue diabetic diet. Hypothyroidism, chronic: Continue Synthroid 200 mcg daily GI prophylaxis: Pepcid 20 mg twice daily DVT prophylaxis: Coumadin Discharge Planning Discharge per case management. Documentation indicates that social security is pending, no accepting facility at this time Simeon Reyna Dec 16, 2016 10:36
[2016-12-16] MEDS: WARFARIN SOD 6 MG TAB PO SCH (16:00)
[2016-12-16 20:00] VITALS: BP 108/63; PULSE 85; RESP 20; TEMP 98.1; O2SAT 94
[2016-12-16] MEDS: PRAVASTATIN SOD 20 MG TAB PO SCH (20:51)
[2016-12-16] MEDS: MELATONIN 5 MG TAB PO SCH (20:53)
[2016-12-16 21:14] VITALS: O2SAT 96
[2016-12-16] MEDS: ACETAMINOPHEN 325 MG TAB PO PRN (21:14)
[2016-12-17] MEDS: QUEtiapine FUMARATE 25 MG TAB PO SCH ×3 (06:22→21:15)
[2016-12-17] MEDS: LEVOTHYROXINE SODIUM 200 MCG TAB PO SCH (06:22)
[2016-12-17] MEDS: METOPROLOL TARTRATE 25 MG TAB PO SCH ×3 (06:22→21:14)
[2016-12-17 08:00] VITALS: BP 98/73; PULSE 75; RESP 19; TEMP 97; O2SAT 96
[2016-12-17 08:05] VITALS: O2SAT 93
[2016-12-17] MEDS: FAMOTIDINE 20 MG TAB PO SCH ×2 (08:27→21:13)
[2016-12-17] MEDS: EUCERIN CREAM 120 GM JAR TOPICAL SCH ×2 (08:27→21:00)
[2016-12-17] MEDS: DOCUSATE SODIUM 50 MG/SENNA 8.6 MG TAB PO SCH ×2 (08:27→21:00)
--- NOTE | 2016-12-17 10:34 | HHI.PR ---
Subjective Remarks Patient seen and examined today for follow-up on severe weakness. Patient was proud of herself that she was able to stand for longer periods patient denies any new complaints today. Objective Vitals Vital Signs Date Time Temp Pulse Resp B/P Pulse Ox O2 Delivery O2 Flow Rate FiO2 12/17/16 08:00 97.0 75 19 98/73 96 12/16/16 22:14 16 12/16/16 21:14 96 Nasal Cannula 2.00 12/16/16 20:00 98.1 85 20 108/63 94 12/16/16 20:00 Nasal Cannula 2.00 I/O 12/16/16 12/16/16 12/16/16 12/17/16 12/17/16 12/17/16 07:00 15:00 23:00 07:00 15:00 23:00 Intake Total 365 ml 240 ml 480 ml 480 ml Output Total 350 ml 200 ml 300 ml Balance 365 ml -110 ml 280 ml 180 ml Intake Oral 365 ml 240 ml 480 ml 480 ml Output Urine Total 350 ml 200 ml 300 ml # Voids 2 2 # Bowel Movements 1 0 0 Result Diagram: 12/17/16 0709 Objective Remarks GENERAL: Well-developed, morbidly obese, in no acute distress. alert and orientated HEENT: Head is normocephalic without any lesions or masses noted. Facial features are symmetric. Eyes: Extraocular muscles are intact. Conjunctivae were clear. NECK: Trachea midline no deviation. CARDIAC: Regular rhythm, regular rate. S1/S2 are heard. No murmurs gallops or rubs. LUNGS: Clear to auscultation bilaterally. No wheeze, rhonchi or rales. No use of accessory muscles on inspiration or expiration. ABDOMEN: Soft, nontender. Nondistended. Bowel sounds heard in all 4 quadrants. No organomegaly or masses. Negative rebound, negative guarding EXTREMITIES: No edema, pulses are equal bilaterally. No cyanosis or clubbing NEUROLOGY: Mood and affect appear appropriate. Moving all extremities, speech is clear Procedures 09/15/2016 bronchoscopy 09/11/2016 bronchoscopy 09/10/2016 left IJ central venous line 08/28/2016 subclavian 7 Serbian triple-lumen catheter left-sided. 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 Decannulated 11/28/16, on supplemental O2. Sputum culture with Pseudomonas aeruginosa and Klebsiella ESBL positive Continue to wean off oxygen Pulmonology following the patient Right lateral malleolus wound, Mild deep tissue injury, right and left buttock Wound care following. Cleanse right lateral malleolus with NS and gauze. Apply Optifoam gentle every 3-5 days. Float heel and ankle off mattress surface by placing pillow underneath calf while in bed. Apply skin prep to deep tissue injuries to bilateral buttocks BID and leave open to air. Acute toxic metabolic encephalopathy/delirium: Resolved Seroquel 75 mg every 8 hours for agitation Melatonin 5mg po qHS for insomnia Hypertension: chronic, well controlled Continue metoprolol Dyslipidemia: chronic -Continue pravastatin. Acute renal failure: resolved. S/p hemodialysis Nephrology signed off. Elevated transaminases: resolved Gallbladder ultrasound shows hepatomegaly with heterogeneous echotexture. Large echogenic area in the neck of the gallbladder suggestive of a stone Monitor clinically Left IJ/subclavian nonocclusive thrombus Continue Coumadin remains therapeutic, 2.6. Pharmacy consult for monitoring. Type 2 Diabetes mellitus, chronic: Continue diabetic diet. Hypothyroidism, chronic: Continue Synthroid 200 mcg daily GI prophylaxis: Pepcid 20 mg twice daily DVT prophylaxis: Coumadin Discharge Planning Discharge per case management. Documentation indicates that social security is pending, no accepting facility at this time Simeon Reyna Dec 17, 2016 10:34
[2016-12-17 14:52] VITALS: BP 113/72; PULSE 83; RESP 18; O2SAT 96
[2016-12-17] MEDS: WARFARIN SOD 6 MG TAB PO SCH (16:50)
[2016-12-17 20:00] VITALS: BP 117/65; PULSE 81; RESP 20; TEMP 96.5; O2SAT 97
[2016-12-17 20:11] VITALS: O2SAT 96
[2016-12-17] MEDS: MELATONIN 5 MG TAB PO SCH (21:00)
[2016-12-17] MEDS: PRAVASTATIN SOD 20 MG TAB PO SCH (21:14)
[2016-12-17] MEDS: ACETAMINOPHEN 325 MG TAB PO PRN (21:15)
[2016-12-18] MEDS: QUEtiapine FUMARATE 25 MG TAB PO SCH ×3 (05:54→21:28)
[2016-12-18] MEDS: LEVOTHYROXINE SODIUM 200 MCG TAB PO SCH (05:54)
[2016-12-18] MEDS: METOPROLOL TARTRATE 25 MG TAB PO SCH ×3 (05:54→21:27)
[2016-12-18 06:00] VITALS: BP 119/78; PULSE 74; RESP 18
[2016-12-18 06:31] LABS: INTERNATIONAL NORMALIZED RATIO 2.5 RATIO; PROTHROMBIN TIME - PATIENT 29.1 SEC (9.8-11.6)
[2016-12-18] MEDS: DOCUSATE SODIUM 50 MG/SENNA 8.6 MG TAB PO SCH ×2 (09:50→21:00)
[2016-12-18] MEDS: FAMOTIDINE 20 MG TAB PO SCH ×2 (09:50→21:27)
[2016-12-18] MEDS: EUCERIN CREAM 120 GM JAR TOPICAL SCH ×2 (09:51→21:32)
--- NOTE | 2016-12-18 10:13 | HHI.PR ---
Subjective Remarks Patient seen and examined today for follow-up on profound weakness. Patient is doing much better. Patient states that she was able to get out of bed and get into the chair for 4 hours yesterday. He graduated her and told her to keep up the good work. Objective Vitals Vital Signs Date Time Temp Pulse Resp B/P Pulse Ox O2 Delivery O2 Flow Rate FiO2 12/18/16 06:00 74 18 119/78 12/17/16 22:15 16 12/17/16 20:11 96 Nasal Cannula 2.00 12/17/16 20:00 Nasal Cannula 2.00 12/17/16 20:00 96.5 81 20 117/65 97 12/17/16 14:52 83 18 113/72 96 I/O 12/17/16 12/17/16 12/17/16 12/18/16 12/18/16 12/18/16 07:00 15:00 23:00 07:00 15:00 23:00 Intake Total 480 ml 630 ml 480 ml 480 ml Output Total 300 ml 200 ml 200 ml 300 ml Balance 180 ml 430 ml 280 ml 180 ml Intake Oral 480 ml 630 ml 480 ml 480 ml Output Urine Total 300 ml 200 ml 200 ml 300 ml # Voids 3 # Bowel Movements 0 2 0 0 Result Diagram: 12/17/16 0709 Objective Remarks GENERAL: Well-developed, morbidly obese, in no acute distress. alert and orientated HEENT: Head is normocephalic without any lesions or masses noted. Facial features are symmetric. Eyes: Extraocular muscles are intact. Conjunctivae were clear. NECK: Trachea midline no deviation. CARDIAC: Regular rhythm, regular rate. S1/S2 are heard. No murmurs gallops or rubs. LUNGS: Clear to auscultation bilaterally. No wheeze, rhonchi or rales. No use of accessory muscles on inspiration or expiration. ABDOMEN: Soft, nontender. Nondistended. Bowel sounds heard in all 4 quadrants. No organomegaly or masses. Negative rebound, negative guarding EXTREMITIES: No edema, pulses are equal bilaterally. No cyanosis or clubbing NEUROLOGY: Mood and affect appear appropriate. Moving all extremities, speech is clear Procedures 09/15/2016 bronchoscopy 09/11/2016 bronchoscopy 09/10/2016 left IJ central venous line 08/28/2016 subclavian 7 Guamanian triple-lumen catheter left-sided. 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 Decannulated 11/28/16, on supplemental O2. Sputum culture with Pseudomonas aeruginosa and Klebsiella ESBL positive Continue to wean off oxygen Pulmonology following the patient Right lateral malleolus wound, Mild deep tissue injury, right and left buttock Wound care following. Cleanse right lateral malleolus with NS and gauze. Apply Optifoam gentle every 3-5 days. Float heel and ankle off mattress surface by placing pillow underneath calf while in bed. Apply skin prep to deep tissue injuries to bilateral buttocks BID and leave open to air. Acute toxic metabolic encephalopathy/delirium: Resolved Seroquel 75 mg every 8 hours for agitation Melatonin 5mg po qHS for insomnia Hypertension: chronic, well controlled Continue metoprolol Dyslipidemia: chronic -Continue pravastatin. Acute renal failure: resolved. S/p hemodialysis Nephrology signed off. Elevated transaminases: resolved Gallbladder ultrasound shows hepatomegaly with heterogeneous echotexture. Large echogenic area in the neck of the gallbladder suggestive of a stone Monitor clinically Left IJ/subclavian nonocclusive thrombus Continue Coumadin remains therapeutic, 2.5. Pharmacy consult for monitoring. Type 2 Diabetes mellitus, chronic: Continue diabetic diet. Hypothyroidism, chronic: Continue Synthroid 200 mcg daily GI prophylaxis: Pepcid 20 mg twice daily DVT prophylaxis: Coumadin Discharge Planning Discharge per case management. Documentation indicates that social security is pending, no accepting facility at this time Simeon Reyna Dec 18, 2016 10:13
[2016-12-18 10:19] VITALS: BP 108/65; PULSE 76; RESP 16; TEMP 96.6; O2SAT 94
[2016-12-18] MEDS: WARFARIN SOD 6 MG TAB PO SCH (17:27)
[2016-12-18 20:00] VITALS: BP 137/67; PULSE 87; RESP 20; TEMP 98.5; O2SAT 94
[2016-12-18] MEDS: MELATONIN 5 MG TAB PO SCH (21:00)
[2016-12-18] MEDS: PRAVASTATIN SOD 20 MG TAB PO SCH (21:27)
[2016-12-18 21:30] VITALS: O2SAT 94
[2016-12-18] MEDS: ACETAMINOPHEN 325 MG TAB PO PRN (21:32)
[2016-12-19] MEDS: LEVOTHYROXINE SODIUM 200 MCG TAB PO SCH (05:29)
[2016-12-19] MEDS: QUEtiapine FUMARATE 25 MG TAB PO SCH ×3 (05:29→21:46)
[2016-12-19] MEDS: METOPROLOL TARTRATE 25 MG TAB PO SCH ×3 (05:29→21:46)
[2016-12-19 08:58] VITALS: BP 94/72; PULSE 68; RESP 19; TEMP 98.3; O2SAT 97
[2016-12-19 09:00] VITALS: O2SAT 95
[2016-12-19] MEDS: FAMOTIDINE 20 MG TAB PO SCH ×2 (09:03→21:46)
[2016-12-19] MEDS: EUCERIN CREAM 120 GM JAR TOPICAL SCH ×2 (09:04→21:47)
[2016-12-19] MEDS: DOCUSATE SODIUM 50 MG/SENNA 8.6 MG TAB PO SCH ×2 (09:07→21:00)
--- NOTE | 2016-12-19 16:36 | HHI.PR ---
Subjective Remarks Follow-up for chronic respiratory failure. Patient currently on nasal cannula. Denies any shortness of breath or cough. She has been using her incentive spirometer. Patient states she has been getting up to the chair for increasing amount of hours. The patient states she has had mild improvement in her generalized weakness, but she states it is difficult because of her ankle pain but also states she is scared because she knows they have to bear her body weight. Objective Vitals Vital Signs Date Time Temp Pulse Resp B/P Pulse Ox O2 Delivery O2 Flow Rate FiO2 12/19/16 10:20 Nasal Cannula 2.00 12/19/16 09:00 95 2.00 12/19/16 08:58 98.3 68 19 94/72 97 12/18/16 21:30 94 Nasal Cannula 2.00 12/18/16 21:20 Nasal Cannula 2.00 Humidified 12/18/16 20:00 98.5 87 20 137/67 94 I/O 12/18/16 12/18/16 12/18/16 12/19/16 12/19/16 12/19/16 06:59 14:59 22:59 06:59 14:59 22:59 Intake Total 480 ml 480 ml 530 ml Output Total 300 ml Balance 180 ml 480 ml 530 ml Intake Oral 480 ml 480 ml 530 ml Output Urine Total 300 ml # Voids 5 1 2 # Bowel Movements 0 1 Result Diagram: 12/19/16 0534 Objective Remarks GENERAL: Morbidly obese female in no apparent distress. CARDIOVASCULAR: Regular rate and rhythm. RESPIRATORY: No accessory muscle use. Clear to auscultation. Breath sounds equal bilaterally. GASTROINTESTINAL: Abdomen soft, non-tender, nondistended. NEUROLOGICAL: Awake and alert. Normal speech. PSYCHIATRIC: Appropriate mood and affect. Procedures 09/15/2016 bronchoscopy 09/11/2016 bronchoscopy 09/10/2016 left IJ central venous line 08/28/2016 subclavian 7 [place]ogolese triple-lumen catheter left-sided. 08/18/2016 right arterial line 08/18/2016 right IJ central line Urinary Catheter: No Date of Insertion: Nov 21, 2016 Date of Removal: Nov 30, 2016 Vascular Central Line Catheter: No A/P Assessment and Plan 56-year-old female admitted with respiratory failure and pneumonia, now with chronic respiratory failure. Acute on chronic hypercapnic and hypoxemic respiratory failure, probable JOE -S/p tracheostomy. Decannulated 11/28/16, on supplemental O2. -Sputum culture with Pseudomonas aeruginosa and Klebsiella ESBL positive -Continue CPAP at night if sats drop <92%. -Chest x-ray 12/08 without acute disease. -Pulmonology last evaluated the patient on 12/08. Continue albuterol 2 puffs every 6 hours as needed for shortness of breath. Debilitation: Requires assistance for ADLs. -PT and OT following. OT is addressing L hand issues. -OOB with assistance. Acute toxic metabolic encephalopathy/delirium: Resolved -Seroquel 75 mg every 8 hours for agitation -Melatonin 5mg po qHS for insomnia Hypertension: chronic, well controlled -Continue metoprolol -12/19: Hypotensive this morning, but MAP good. Monitor. Dyslipidemia: chronic -Continue pravastatin. Acute kidney injury: resolved. Creatinine much improved, 0.65. -S/p hemodialysis -Nephrology signed off. -Does have mild pre-renal azotemia, but BUN stable. 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 Pharmacy consult for monitoring. -Continue to follow INR. Type 2 Diabetes mellitus, chronic: Continue diabetic diet. Right lateral malleolus wound Mild deep tissue injury, right and left buttock -Wound care following. Cleanse right lateral malleolus with NS and gauze. Apply Optifoam gentle every 3-5 days. -Float heel and ankle off mattress surface by placing pillow underneath calf while in bed. Apply skin prep to deep tissue injuries to bilateral buttocks BID and leave open to air. Hypothyroidism, chronic: -Continue Synthroid 200 mcg daily GI prophylaxis: Protonix 40mg Q12 DVT prophylaxis: Coumadin Discharge Planning SSI pending. Patient requires SNF placement. Kalyani Taveras Dec 19, 2016 16:36
[2016-12-19] MEDS: WARFARIN SOD 6 MG TAB PO SCH (17:00)
[2016-12-19 20:00] VITALS: BP 108/66; PULSE 88; RESP 20; TEMP 97; O2SAT 96
[2016-12-19 21:25] VITALS: O2SAT 96
[2016-12-19] MEDS: ACETAMINOPHEN 325 MG TAB PO PRN (21:46)
[2016-12-19] MEDS: PRAVASTATIN SOD 20 MG TAB PO SCH (21:46)
[2016-12-19] MEDS: MELATONIN 5 MG TAB PO SCH (21:46)
[2016-12-20 06:05] VITALS: BP 116/77; PULSE 90; O2SAT 98
[2016-12-20] MEDS: METOPROLOL TARTRATE 25 MG TAB PO SCH ×3 (06:08→20:58)
[2016-12-20] MEDS: LEVOTHYROXINE SODIUM 200 MCG TAB PO SCH (06:08)
[2016-12-20] MEDS: QUEtiapine FUMARATE 25 MG TAB PO SCH ×3 (06:08→20:59)
[2016-12-20 08:00] VITALS: BP 125/83; PULSE 70; RESP 18; TEMP 96.2; O2SAT 97
[2016-12-20] MEDS: FAMOTIDINE 20 MG TAB PO SCH ×2 (08:19→20:59)
[2016-12-20] MEDS: DOCUSATE SODIUM 50 MG/SENNA 8.6 MG TAB PO SCH ×4 (08:20→21:26)
[2016-12-20] MEDS: EUCERIN CREAM 120 GM JAR TOPICAL SCH ×2 (08:21→21:00)
[2016-12-20 08:46] LABS: INTERNATIONAL NORMALIZED RATIO 2.5 RATIO; PROTHROMBIN TIME - PATIENT 28.8 SEC (9.8-11.6)
[2016-12-20 09:00] VITALS: O2SAT 96
--- NOTE | 2016-12-20 12:02 | HHI.PR ---
Subjective Remarks Follow-up for chronic respiratory failure. Patient did not sleep well last night due to disruptive patient next door. Denies shortness of breath. Objective Vitals Vital Signs Date Time Temp Pulse Resp B/P Pulse Ox O2 Delivery O2 Flow Rate FiO2 12/20/16 06:05 90 116/77 98 12/19/16 21:25 96 Nasal Cannula 2.00 12/19/16 20:00 97.0 88 20 108/66 96 I/O 12/19/16 12/19/16 12/19/16 12/20/16 12/20/16 12/20/16 07:00 15:00 23:00 07:00 15:00 23:00 Intake Total 480 ml 530 ml 0 ml Output Total 775 ml Balance 480 ml 530 ml -775 ml Intake Oral 480 ml 530 ml 0 ml Output Urine Total 775 ml # Voids 1 2 # Bowel Movements 1 Result Diagram: 12/19/16 0534 Objective Remarks GENERAL: Morbidly obese female in no apparent distress. CARDIOVASCULAR: Regular rate and rhythm. RESPIRATORY: No accessory muscle use. Clear to auscultation. Breath sounds equal bilaterally. GASTROINTESTINAL: Abdomen soft, non-tender, nondistended. NEUROLOGICAL: Awake and alert. Normal speech. PSYCHIATRIC: Appropriate mood and affect. Procedures 09/15/2016 bronchoscopy 09/11/2016 bronchoscopy 09/10/2016 left IJ central venous line 08/28/2016 subclavian 7 Mongolian triple-lumen catheter left-sided. 08/18/2016 right arterial line 08/18/2016 right IJ central line Urinary Catheter: No Date of Insertion: Nov 21, 2016 Date of Removal: Nov 30, 2016 Vascular Central Line Catheter: No A/P Assessment and Plan 56-year-old female admitted with respiratory failure and pneumonia, now with chronic respiratory failure. 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 Decannulated 11/28/16, on supplemental O2. -Sputum culture with Pseudomonas aeruginosa and Klebsiella ESBL positive -Continue CPAP at night if sats drop <92%. -Chest x-ray 12/08 without acute disease. -Pulmonology last evaluated the patient on 12/08. Continue albuterol 2 puffs every 6 hours as needed for shortness of breath. Debilitation: Requires assistance for ADLs. -PT and OT following. OT is addressing L hand issues. -OOB with assistance. Acute toxic metabolic encephalopathy/delirium: Resolved -Seroquel 75 mg every 8 hours for agitation -Melatonin 5mg po qHS for insomnia Hypertension: chronic, well controlled -Continue metoprolol Dyslipidemia: chronic -Continue pravastatin. Acute kidney injury: resolved. Creatinine much improved, 0.65. -S/p hemodialysis -Nephrology signed off. -Does have mild pre-renal azotemia, but BUN stable. 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 Pharmacy consult for monitoring. -Continue to follow INR. Type 2 Diabetes mellitus, chronic: Continue diabetic diet. Right lateral malleolus wound Mild deep tissue injury, right and left buttock -Wound care following. Cleanse right lateral malleolus with NS and gauze. Apply Optifoam gentle every 3-5 days. -Float heel and ankle off mattress surface by placing pillow underneath calf while in bed. Apply skin prep to deep tissue injuries to bilateral buttocks BID and leave open to air. Hypothyroidism, chronic: -Continue Synthroid 200 mcg daily GI prophylaxis: Protonix 40mg Q12 DVT prophylaxis: Coumadin Discharge Planning SSI pending. Patient requires SNF placement. Kalyani Taveras Dec 20, 2016 12:02
[2016-12-20] MEDS: WARFARIN SOD 6 MG TAB PO SCH (17:27)
[2016-12-20 20:00] VITALS: BP 90/65; PULSE 71; RESP 16; TEMP 95.5; O2SAT 98
[2016-12-20 20:30] VITALS: BP 118/70; PULSE 74; RESP 18
[2016-12-20 20:56] VITALS: O2SAT 95
[2016-12-20] MEDS: PRAVASTATIN SOD 20 MG TAB PO SCH (20:59)
[2016-12-20] MEDS: MELATONIN 5 MG TAB PO SCH (20:59)
[2016-12-20] MEDS: ACETAMINOPHEN 325 MG TAB PO PRN (21:04)
[2016-12-21 06:07] VITALS: BP 114/89; PULSE 90
[2016-12-21] MEDS: QUEtiapine FUMARATE 25 MG TAB PO SCH ×3 (06:07→20:29)
[2016-12-21] MEDS: LEVOTHYROXINE SODIUM 200 MCG TAB PO SCH (06:07)
[2016-12-21] MEDS: METOPROLOL TARTRATE 25 MG TAB PO SCH ×3 (06:07→20:30)
[2016-12-21] MEDS: FAMOTIDINE 20 MG TAB PO SCH ×2 (07:32→19:56)
[2016-12-21] MEDS: EUCERIN CREAM 120 GM JAR TOPICAL SCH ×2 (07:35→19:57)
[2016-12-21 09:07] VITALS: O2SAT 96
[2016-12-21 10:14] VITALS: BP 118/98; PULSE 90; RESP 16; TEMP 96.7; O2SAT 97
--- NOTE | 2016-12-21 11:50 | HHI.PR ---
Subjective Remarks Follow-up for respiratory failure. Patient states she was restless last night. Denies any shortness of breath. Objective Vitals Vital Signs Date Time Temp Pulse Resp B/P Pulse Ox O2 Delivery O2 Flow Rate FiO2 12/21/16 10:14 96.7 90 16 118/98 97 12/21/16 09:10 97 Nasal Cannula 2.00 12/21/16 09:07 96 Nasal Cannula 2.00 12/21/16 06:07 90 114/89 12/20/16 22:04 20 12/20/16 20:56 95 Nasal Cannula 2.00 12/20/16 20:00 95.5 71 16 90/65 98 12/20/16 20:00 Nasal Cannula 2.00 Humidified 12/20/16 12:25 Nasal Cannula 2.00 Humidified I/O 12/20/16 12/20/16 12/20/16 12/21/16 12/21/16 12/21/16 07:00 15:00 23:00 07:00 15:00 23:00 Intake Total 0 ml 480 ml 480 ml Output Total 775 ml 250 ml 300 ml Balance -775 ml 230 ml 180 ml Intake Oral 0 ml 480 ml 480 ml Output Urine Total 775 ml 250 ml 300 ml # Bowel Movements 0 0 Result Diagram: 12/21/16 0650 Objective Remarks GENERAL: Morbidly obese female in no apparent distress. CARDIOVASCULAR: Regular rate and rhythm. RESPIRATORY: No accessory muscle use. Clear to auscultation. Breath sounds equal bilaterally. GASTROINTESTINAL: Abdomen soft, non-tender, nondistended. NEUROLOGICAL: Awake and alert. Normal speech. PSYCHIATRIC: Appropriate mood and affect. Procedures 09/15/2016 bronchoscopy 09/11/2016 bronchoscopy 09/10/2016 left IJ central venous line 08/28/2016 subclavian 7 [place]orese triple-lumen catheter left-sided. 08/18/2016 right arterial line 08/18/2016 right IJ central line Urinary Catheter: No Date of Insertion: Nov 21, 2016 Date of Removal: Nov 30, 2016 Vascular Central Line Catheter: No A/P Assessment and Plan 56-year-old female admitted with respiratory failure and pneumonia, now with chronic respiratory failure. 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 Decannulated 11/28/16, on supplemental O2. -Sputum culture with Pseudomonas aeruginosa and Klebsiella ESBL positive -Continue CPAP at night if sats drop <92%. -Chest x-ray 12/08 without acute disease. -Pulmonology last evaluated the patient on 12/08. Continue albuterol 2 puffs every 6 hours as needed for shortness of breath. -12/21: Stable, 97% on 2L O2. Debilitation: Requires assistance for ADLs. -PT and OT following. OT is addressing L hand issues. -OOB with assistance. Acute toxic metabolic encephalopathy/delirium: Resolved -Seroquel 75 mg every 8 hours for agitation -Melatonin 5mg po qHS for insomnia Hypertension: chronic, well controlled -Continue metoprolol Dyslipidemia: chronic -Continue pravastatin. Acute kidney injury: resolved. Creatinine much improved, 0.65. -S/p hemodialysis -Nephrology signed off. -Does have mild pre-renal azotemia, but BUN stable. 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 Pharmacy consult for monitoring. -Continue to follow INR. Type 2 Diabetes mellitus, chronic: Continue diabetic diet. Right lateral malleolus wound Mild deep tissue injury, right and left buttock -Wound care following. Cleanse right lateral malleolus with NS and gauze. Apply Optifoam gentle every 3-5 days. -Float heel and ankle off mattress surface by placing pillow underneath calf while in bed. Apply skin prep to deep tissue injuries to bilateral buttocks BID and leave open to air. Hypothyroidism, chronic: -Continue Synthroid 200 mcg daily GI prophylaxis: Protonix 40mg Q12 DVT prophylaxis: Coumadin Discharge Planning SSI pending. Patient requires SNF placement. Kalyani Taveras Dec 21, 2016 11:50
[2016-12-21] MEDS: WARFARIN SOD 6 MG TAB PO SCH (15:40)
[2016-12-21] MEDS: PRAVASTATIN SOD 20 MG TAB PO SCH (19:56)
[2016-12-21] MEDS: MELATONIN 5 MG TAB PO SCH (19:57)
[2016-12-21] MEDS: ACETAMINOPHEN 325 MG TAB PO PRN (19:57)
[2016-12-21 20:00] VITALS: BP 94/69; PULSE 86; RESP 20; TEMP 96.7; O2SAT 96
--- NOTE | 2016-12-21 20:00 | HHI.PR ---
Subjective Remarks Seen and Examined. and on N/C 2L..Neck Wound is still draining. Stands up with help.NO SOB at rest Objective Vital Signs Date Time Temp Pulse Resp B/P Pulse Ox O2 Delivery O2 Flow Rate FiO2 12/21/16 10:14 96.7 90 16 118/98 97 12/21/16 09:10 97 Nasal Cannula 2.00 12/21/16 09:07 96 Nasal Cannula 2.00 12/21/16 06:07 90 114/89 12/20/16 22:04 20 12/20/16 20:56 95 Nasal Cannula 2.00 12/20/16 20:00 95.5 71 16 90/65 98 12/20/16 20:00 Nasal Cannula 2.00 Humidified I/O 12/20/16 12/20/16 12/20/16 12/21/16 12/21/16 12/21/16 06:59 14:59 22:59 06:59 14:59 22:59 Intake Total 0 ml 480 ml 480 ml Output Total 775 ml 250 ml 300 ml Balance -775 ml 230 ml 180 ml Intake Oral 0 ml 480 ml 480 ml Output Urine Total 775 ml 250 ml 300 ml # Bowel Movements 0 0 Result Diagram: 12/21/16 0650 Objective Remarks This is an obese middle-aged white female who is in no distress HEENT: Head normocephalic.throat clear. Neck: No bruits, no thyroid enlargement.No lymphadenopathy.Healing trach wound . Chest: Decreased breath sounds at bases.Occ wheeze heard. Heart: Heart sounds were regular. S1-S2 no murmur, no S3. Abdomen: Soft, benign. No masses, or tenderness. Bowel sounds are active. Extremities:No edema . Neuro :Moves all limbs.no deficits. Alert and Oriented Assessment and Plan Assessment and Plan IMPRESSION 1. Acute hypercapnic respiratory failure.Resolved 2. Pulmonary edema.Resolved 3. Obesity 4. Obstructive sleep apnea syndrome 5. Hypertension 6. Hypothyroidism. Plan : 1. CBC,BMP today 2. Check RA sat and D/C O2 if sat >92. 3. PT and OT 4. Clean and dress Trach wound daily. 5. Add Ventolin HFA , 2 puffs qid prn 6. Chest Xray in am. Abimael Beck MD Dec 21, 2016 20:00
[2016-12-21 20:18] VITALS: O2SAT 95
[2016-12-21 20:45] LABS: AUTOMATED NEUTROPHIL # 3.8 TH/MM3 (1.8-7.7); BASOPHIL % 0.4 % (0.0-2.0); EOSINOPHIL # 0.4 TH/MM3 (0-0.4); EOSINOPHIL % 4.8 % (0.0-4.0); HEMATOCRIT 38.7 % (35.0-46.0); HEMO FLAGS DIFF FINAL; LYMPH % 43.9 % (9.0-44.0); LYMPHOCYTE # 3.9 TH/MM3 (1.0-4.8); MEAN CELL VOLUME 82.7 FL (80.0-100.0); MEAN CORPUSCULAR HEMOGLOBIN 27.5 PG (27.0-34.0); MEAN CORPUSCULAR HGB CONC 33.2 % (32.0-36.0); MONO % 7.8 % (0.0-8.0); NEUT % 43.1 % (16.0-70.0); PLATELET COUNT 312 TH/MM3 (150-450); RED BLOOD COUNT 4.68 MIL/MM3 (4.00-5.30); RED CELL DISTRIBUTION WIDTH 14.5 % (11.6-17.2); WHITE BLOOD COUNT 8.8 TH/MM3 (4.0-11.0)
--- NOTE | 2016-12-21 20:58 | RADRPT ---
EXAM DATE/TIME: 12/21/2016 20:26 [facility] COMPARISON: CHEST SINGLE AP, December 08, 2016, 6:26. INDICATIONS : Shortness of breath. Evaluate infiltrate. MEDICAL HISTORY : Congestive heart failure. pneumonia SURGICAL HISTORY : None. ENCOUNTER: Subsequent ACUITY: 2 months PAIN SCORE: 0/10 LOCATION: Bilateral chest FINDINGS: A single view of the chest demonstrates linear atelectasis or scarring at the lung bases. No effusion . No pneumothorax. Heart size within normal limits. CONCLUSION: 1. Minimal basal scarring or atelectasis. No significant effusion. Rony Malloy MD on December 21, 2016 at 20:56 Board Certified Radiologist. This report was verified electronically.
[2016-12-21 21:00] LABS: BICARBONATE 28.1 MEQ/L (21.0-32.0)
[2016-12-22] MEDS: METOPROLOL TARTRATE 25 MG TAB PO SCH ×3 (05:44→21:01)
[2016-12-22] MEDS: QUEtiapine FUMARATE 25 MG TAB PO SCH ×3 (05:44→21:00)
[2016-12-22] MEDS: LEVOTHYROXINE SODIUM 200 MCG TAB PO SCH (05:44)
[2016-12-22 05:46] VITALS: BP 136/88; PULSE 86
[2016-12-22 08:00] VITALS: BP 141/82; PULSE 73; RESP 16; TEMP 97.7; O2SAT 97; O2SAT 98
[2016-12-22] MEDS: FAMOTIDINE 20 MG TAB PO SCH ×2 (10:15→21:00)
[2016-12-22] MEDS: EUCERIN CREAM 120 GM JAR TOPICAL SCH ×2 (10:16→21:01)
[2016-12-22] MEDS: DOCUSATE SODIUM 50 MG/SENNA 8.6 MG TAB PO SCH ×2 (10:17→21:00)
--- NOTE | 2016-12-22 11:33 | HHI.PR ---
Subjective Remarks Follow-up with respiratory failure. I spoke with physical therapist who states the patient is progressing. He does state when she starts ambulating more she will require a right AFO. The patient denies any shortness of breath. She was seen by kennel attendant yesterday. Objective Vitals Vital Signs Date Time Temp Pulse Resp B/P Pulse Ox O2 Delivery O2 Flow Rate FiO2 12/22/16 08:00 98 High Flow Nasal Cannula 2.00 12/22/16 08:00 97.7 73 16 141/82 97 12/22/16 05:46 86 136/88 12/21/16 20:57 20 12/21/16 20:18 95 Nasal Cannula 2.00 12/21/16 20:00 96.7 86 20 94/69 96 Manual Cuff/Auscultation I/O 12/21/16 12/21/16 12/21/16 12/22/16 12/22/16 12/22/16 07:00 15:00 23:00 07:00 15:00 23:00 Intake Total 480 ml 120 ml 0 ml 120 ml Output Total 300 ml 400 ml Balance 180 ml -280 ml 0 ml 120 ml Intake Oral 480 ml 120 ml 0 ml 120 ml Output Urine Total 300 ml 400 ml # Voids 1 2 2 # Bowel Movements 0 1 0 0 Result Diagram: 12/21/16203712/21/162037 Objective Remarks GENERAL: Morbidly obese pleasant female in no apparent distress. CARDIOVASCULAR: Regular rate and rhythm. RESPIRATORY: No accessory muscle use. Clear to auscultation. Breath sounds equal bilaterally. GASTROINTESTINAL: Abdomen soft, non-tender, nondistended. NEUROLOGICAL: Awake and alert. Normal speech. PSYCHIATRIC: Appropriate mood and affect. Procedures 09/15/2016 bronchoscopy 09/11/2016 bronchoscopy 09/10/2016 left IJ central venous line 08/28/2016 subclavian 7 [place]ijani triple-lumen catheter left-sided. 08/18/2016 right arterial line 08/18/2016 right IJ central line Urinary Catheter: No Date of Insertion: Nov 21, 2016 Date of Removal: Nov 30, 2016 Vascular Central Line Catheter: No A/P Assessment and Plan 56-year-old female admitted with respiratory failure and pneumonia, now with chronic respiratory failure. 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 Decannulated 11/28/16, on supplemental O2. -Sputum culture with Pseudomonas aeruginosa and Klebsiella ESBL positive -Continue CPAP at night if sats drop <92%. -Chest x-ray 12/08 without acute disease. -12/22: Pulmonology, Dr. Beck reevaluated patient yesterday. He advises checking room air saturation and discontinuing oxygen if saturation greater than 92%. She is 95% on 2L. He has given wound dressing orders for trach site. Advises Ventolin HFA 2 puffs 4 times a day as needed. He ordered chest x-ray for this am which was personally reviewed and compared to prior. Patient has atelectasis at the bases. Continue incentive spirometry. Debilitation: Requires assistance for ADLs. -PT and OT following. OT is addressing L hand issues. -OOB with assistance. Acute toxic metabolic encephalopathy/delirium: Resolved -Seroquel 75 mg every 8 hours for agitation -Melatonin 5mg po qHS for insomnia Hypertension: chronic, well controlled -Continue metoprolol Dyslipidemia: chronic -Continue pravastatin. Acute kidney injury: resolved. Creatinine much improved, 0.65. -S/p hemodialysis -Nephrology signed off. -Does have mild pre-renal azotemia, but BUN stable. 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 Pharmacy consult for monitoring. -Continue to follow INR. Type 2 Diabetes mellitus, chronic: Continue diabetic diet. Right lateral malleolus wound Mild deep tissue injury, right and left buttock -Wound care following. Cleanse right lateral malleolus with NS and gauze. Apply Optifoam gentle every 3-5 days. -Float heel and ankle off mattress surface by placing pillow underneath calf while in bed. Apply skin prep to deep tissue injuries to bilateral buttocks BID and leave open to air. Hypothyroidism, chronic: -Continue Synthroid 200 mcg daily GI prophylaxis: Protonix 40mg Q12 DVT prophylaxis: Coumadin Discharge Planning SSI pending. Patient requires SNF placement. Kalyani Taveras Dec 22, 2016 11:33
[2016-12-22] MEDS: WARFARIN SOD 6 MG TAB PO SCH (16:14)
[2016-12-22] MEDS: ACETAMINOPHEN 325 MG TAB PO PRN (16:14)
[2016-12-22] MEDS ORDERED: ALBUTEROL SULFATE 90 MCG/ACT HFA 18 GM INHALER INH PRN (18:30)
--- NOTE | 2016-12-22 19:18 | HHI.PR ---
Subjective Remarks Seen and Examined. and still on N/C 2L..Neck Wound is almost healed. Stands up with help. NO SOB at rest Objective Vital Signs Date Time Temp Pulse Resp B/P Pulse Ox O2 Delivery O2 Flow Rate FiO2 12/22/16 11:32 95 Nasal Cannula 2.00 12/22/16 08:00 98 High Flow Nasal Cannula 2.00 12/22/16 08:00 97.7 73 16 141/82 97 12/22/16 05:46 86 136/88 12/21/16 20:57 20 12/21/16 20:18 95 Nasal Cannula 2.00 12/21/16 20:00 96.7 86 20 94/69 96 Manual Cuff/Auscultation I/O 12/21/16 12/21/16 12/21/16 12/22/16 12/22/16 12/22/16 06:59 14:59 22:59 06:59 14:59 22:59 Intake Total 480 ml 120 ml 0 ml 120 ml Output Total 300 ml 400 ml Balance 180 ml -280 ml 0 ml 120 ml Intake Oral 480 ml 120 ml 0 ml 120 ml Output Urine Total 300 ml 400 ml # Voids 1 2 2 5 # Bowel Movements 0 1 0 0 Result Diagram: 12/21/16203712/21/162037 Objective Remarks This is an obese middle-aged white female who is in no distress HEENT: Head normocephalic.throat clear. Neck: No bruits, no thyroid enlargement.No lymphadenopathy.Healing trach wound . Chest: Decreased breath sounds at bases.Occ wheeze heard. Heart: Heart sounds were regular. S1-S2 no murmur, no S3. Abdomen: Soft, benign. No masses, or tenderness. Bowel sounds are active. Extremities:No edema . Neuro :Moves all limbs.no deficits. Alert and Oriented Assessment and Plan Assessment and Plan IMPRESSION 1. Acute hypercapnic respiratory failure.Resolved 2. Pulmonary edema.Resolved 3. Obesity 4. Obstructive sleep apnea syndrome 5. Hypertension 6. Hypothyroidism. Plan : 1. IS q4h , bedside 2. O2 2 L 3. PT and OT 4. Clean and dress Trach wound twice weekly 5. Cont Ventolin HFA , 2 puffs qid prn 6. Rehab soon Abimael Beck MD Dec 22, 2016 19:18
[2016-12-22 19:30] VITALS: O2SAT 97
[2016-12-22 20:59] VITALS: BP 128/98; PULSE 100; RESP 22; TEMP 97.9; O2SAT 97
[2016-12-22] MEDS: PRAVASTATIN SOD 20 MG TAB PO SCH (20:59)
[2016-12-22] MEDS: MELATONIN 5 MG TAB PO SCH (21:00)
[2016-12-23] MEDS: QUEtiapine FUMARATE 25 MG TAB PO SCH ×3 (06:19→21:57)
[2016-12-23] MEDS: LEVOTHYROXINE SODIUM 200 MCG TAB PO SCH (06:19)
[2016-12-23] MEDS: METOPROLOL TARTRATE 25 MG TAB PO SCH ×3 (06:19→21:56)
[2016-12-23 08:11] VITALS: O2SAT 97
[2016-12-23] MEDS: FAMOTIDINE 20 MG TAB PO SCH ×2 (08:47→21:57)
[2016-12-23] MEDS: EUCERIN CREAM 120 GM JAR TOPICAL SCH ×2 (08:48→21:00)
[2016-12-23] MEDS: DOCUSATE SODIUM 50 MG/SENNA 8.6 MG TAB PO SCH ×2 (08:48→21:00)
[2016-12-23 09:18] VITALS: BP 116/80; PULSE 20; RESP 18; TEMP 97.7; O2SAT 98
--- NOTE | 2016-12-23 09:46 | HHI.PR ---
Subjective Remarks Follow-up for respiratory failure. No acute complaints. Objective Vitals Vital Signs Date Time Temp Pulse Resp B/P Pulse Ox O2 Delivery O2 Flow Rate FiO2 12/23/16 09:18 97.7 20 18 116/80 98 12/23/16 08:11 97 Nasal Cannula 2.00 12/22/16 20:59 97.9 100 22 128/98 97 12/22/16 20:00 97 Nasal Cannula 2.00 12/22/16 19:30 97 Nasal Cannula 2.00 12/22/16 11:32 95 Nasal Cannula 2.00 I/O 12/22/16 12/22/16 12/22/16 12/23/16 12/23/16 12/23/16 07:00 15:00 23:00 07:00 15:00 23:00 Intake Total 0 ml 120 ml Balance 0 ml 120 ml Intake Oral 0 ml 120 ml # Voids 2 2 5 2 # Bowel Movements 0 0 Result Diagram: 12/21/16203712/23/1630 Objective Remarks GENERAL: Morbidly obese pleasant female in no apparent distress. SKIN: No erythema around trach wound site. CARDIOVASCULAR: Regular rate and rhythm. RESPIRATORY: No accessory muscle use. Clear but limited auscultation due to body habitus. GASTROINTESTINAL: Abdomen soft, non-tender, nondistended. NEUROLOGICAL: Awake and alert. Normal speech. PSYCHIATRIC: Appropriate mood and affect. Procedures 09/15/2016 bronchoscopy 09/11/2016 bronchoscopy 09/10/2016 left IJ central venous line 08/28/2016 subclavian 7 Latvian triple-lumen catheter left-sided. 08/18/2016 right arterial line 08/18/2016 right IJ central line Urinary Catheter: No Date of Insertion: Nov 21, 2016 Date of Removal: Nov 30, 2016 Vascular Central Line Catheter: No A/P Assessment and Plan 56-year-old female admitted with respiratory failure and pneumonia, now with chronic respiratory failure. 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 Decannulated 11/28/16, on supplemental O2. -Sputum culture with Pseudomonas aeruginosa and Klebsiella ESBL positive -Continue CPAP at night if sats drop <92%. -Chest x-ray 12/23 with atelectasis at the bases. -Pulmonology, Dr. Beck following. Advises IS q4h, Ventolin 2 puffs qid prn, and to cleanse trach wound twice weekly. Debilitation: Requires assistance for ADLs. -PT and OT following. OT is addressing L hand issues. -OOB with assistance. Acute toxic metabolic encephalopathy/delirium: Resolved -Seroquel 75 mg every 8 hours for agitation -Melatonin 5mg po qHS for insomnia Hypertension: chronic, well controlled -Continue metoprolol Dyslipidemia: chronic -Continue pravastatin. Acute kidney injury: resolved. Creatinine much improved, 0.65. -S/p hemodialysis -Nephrology signed off. -Does have mild pre-renal azotemia, but BUN stable. 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 Pharmacy consult for monitoring. -Continue to follow INR. Type 2 Diabetes mellitus, chronic: Continue diabetic diet. Right lateral malleolus wound Mild deep tissue injury, right and left buttock -Wound care following. Cleanse right lateral malleolus with NS and gauze. Apply Optifoam gentle every 3-5 days. -Float heel and ankle off mattress surface by placing pillow underneath calf while in bed. Apply skin prep to deep tissue injuries to bilateral buttocks BID and leave open to air. Hypothyroidism, chronic: -Continue Synthroid 200 mcg daily GI prophylaxis: Protonix 40mg Q12 DVT prophylaxis: Coumadin Discharge Planning SSI pending. Patient requires SNF placement. Kalyani Taveras Dec 23, 2016 09:46
[2016-12-23] MEDS: WARFARIN SOD 6 MG TAB PO SCH (16:18)
[2016-12-23 20:00] VITALS: BP 116/80; PULSE 80; RESP 18; TEMP 96.6; O2SAT 96; O2SAT 99
[2016-12-23] MEDS: MELATONIN 5 MG TAB PO SCH (21:00)
[2016-12-23] MEDS: PRAVASTATIN SOD 20 MG TAB PO SCH (21:57)
[2016-12-23] MEDS: ACETAMINOPHEN 325 MG TAB PO PRN (22:01)
[2016-12-24 04:00] VITALS: BP 137/82; PULSE 86; RESP 18; TEMP 96.3; O2SAT 93
[2016-12-24] MEDS: METOPROLOL TARTRATE 25 MG TAB PO SCH ×3 (06:21→20:54)
[2016-12-24] MEDS: LEVOTHYROXINE SODIUM 200 MCG TAB PO SCH (06:21)
[2016-12-24] MEDS: QUEtiapine FUMARATE 25 MG TAB PO SCH ×3 (06:21→20:49)
[2016-12-24 08:00] VITALS: BP 125/77; PULSE 80; RESP 18; TEMP 98.2; O2SAT 96
[2016-12-24 08:02] VITALS: O2SAT 95
[2016-12-24] MEDS: EUCERIN CREAM 120 GM JAR TOPICAL SCH ×2 (09:00→21:00)
--- NOTE | 2016-12-24 10:03 | HHI.PR ---
Subjective Remarks Follow-up for respiratory failure. She states she does not sleep well. Patient denies any shortness of breath. Objective Vitals Vital Signs Date Time Temp Pulse Resp B/P Pulse Ox O2 Delivery O2 Flow Rate FiO2 12/24/16 08:02 95 Nasal Cannula 2.00 12/24/16 04:00 96.3 86 18 137/82 93 12/23/16 20:00 96.6 80 18 116/80 96 12/23/16 20:00 96 Nasal Cannula 2.00 12/23/16 20:00 99 Nasal Cannula 2.00 12/23/16 13:33 Nasal Cannula 2.00 28 I/O 12/23/16 12/23/16 12/23/16 12/24/16 12/24/16 12/24/16 07:00 15:00 23:00 07:00 15:00 23:00 Intake Total 240 ml 0 ml Balance 240 ml 0 ml Intake Oral 240 ml 0 ml # Voids 2 2 # Bowel Movements 1 Result Diagram: 12/21/16203712/23/1630 Objective Remarks GENERAL: Morbidly obese pleasant female in no apparent distress. CARDIOVASCULAR: Regular rate and rhythm. RESPIRATORY: No accessory muscle use. CTAB. GASTROINTESTINAL: Abdomen soft, non-tender, nondistended. NEUROLOGICAL: Awake and alert. Normal speech. PSYCHIATRIC: Appropriate mood and affect. Procedures 09/15/2016 bronchoscopy 09/11/2016 bronchoscopy 09/10/2016 left IJ central venous line 08/28/2016 subclavian 7 Syriac triple-lumen catheter left-sided. 08/18/2016 right arterial line 08/18/2016 right IJ central line Urinary Catheter: No Date of Insertion: Nov 21, 2016 Date of Removal: Nov 30, 2016 Vascular Central Line Catheter: No A/P Assessment and Plan 56-year-old female admitted with respiratory failure and pneumonia, now with chronic respiratory failure. 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 Decannulated 11/28/16, on supplemental O2. -Sputum culture with Pseudomonas aeruginosa and Klebsiella ESBL positive -Continue CPAP at night if sats drop <92%. -Chest x-ray 12/23 with atelectasis at the bases. -Pulmonology, Dr. Beck following. Advises IS q4h, Ventolin 2 puffs qid prn, and to cleanse trach wound twice weekly. Debilitation: Requires assistance for ADLs. -PT and OT following. OT is addressing L hand issues. -OOB with assistance. Acute toxic metabolic encephalopathy/delirium: Resolved -Seroquel 75 mg every 8 hours for agitation -Melatonin 5mg po qHS for insomnia Hypertension: chronic, well controlled -Continue metoprolol Dyslipidemia: chronic -Continue pravastatin. Acute kidney injury: resolved. Creatinine much improved, 0.65. -S/p hemodialysis -Nephrology signed off. -Does have mild pre-renal azotemia, but BUN stable. 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 Pharmacy consult for monitoring. -Continue to follow INR. Type 2 Diabetes mellitus, chronic: Continue diabetic diet. Right lateral malleolus wound Mild deep tissue injury, right and left buttock -Wound care following. Cleanse right lateral malleolus with NS and gauze. Apply Optifoam gentle every 3-5 days. -Float heel and ankle off mattress surface by placing pillow underneath calf while in bed. Apply skin prep to deep tissue injuries to bilateral buttocks BID and leave open to air. Hypothyroidism, chronic: -Continue Synthroid 200 mcg daily GI prophylaxis: Protonix 40mg Q12 DVT prophylaxis: Coumadin Discharge Planning SSI pending. Patient requires SNF placement. Kalyani Taveras Dec 24, 2016 10:03
[2016-12-24] MEDS: DOCUSATE SODIUM 50 MG/SENNA 8.6 MG TAB PO SCH ×2 (10:54→21:00)
[2016-12-24] MEDS: FAMOTIDINE 20 MG TAB PO SCH ×2 (10:54→20:49)
[2016-12-24] MEDS: WARFARIN SOD 6 MG TAB PO SCH (15:29)
[2016-12-24 20:00] VITALS: BP 113/74; PULSE 92; RESP 20; TEMP 97.1; O2SAT 96
[2016-12-24 20:15] VITALS: O2SAT 95
[2016-12-24] MEDS: PRAVASTATIN SOD 20 MG TAB PO SCH (20:49)
[2016-12-24] MEDS: ACETAMINOPHEN 325 MG TAB PO PRN (20:51)
[2016-12-24] MEDS: MELATONIN 5 MG TAB PO SCH (20:56)
[2016-12-25] MEDS: METOPROLOL TARTRATE 25 MG TAB PO SCH ×3 (06:00→22:10)
[2016-12-25 06:12] VITALS: BP 96/70; PULSE 78
[2016-12-25] MEDS: LEVOTHYROXINE SODIUM 200 MCG TAB PO SCH (06:14)
[2016-12-25] MEDS: QUEtiapine FUMARATE 25 MG TAB PO SCH ×3 (06:14→22:10)
[2016-12-25 08:00] VITALS: O2SAT 94
[2016-12-25] MEDS: EUCERIN CREAM 120 GM JAR TOPICAL SCH ×2 (09:00→22:14)
[2016-12-25] MEDS: DOCUSATE SODIUM 50 MG/SENNA 8.6 MG TAB PO SCH ×2 (09:00→21:00)
[2016-12-25] MEDS: FAMOTIDINE 20 MG TAB PO SCH ×2 (09:08→22:10)
--- NOTE | 2016-12-25 11:06 | HHI.PR ---
Subjective Remarks Follow up for respiratory failure. Patient sleeping when I enter the room. Denies any SOB. Again did not sleep well. Objective Vitals Vital Signs Date Time Temp Pulse Resp B/P Pulse Ox O2 Delivery O2 Flow Rate FiO2 12/25/16 06:12 78 96/70 12/24/16 20:15 95 Nasal Cannula 2.00 12/24/16 20:00 97.1 92 20 113/74 96 12/24/16 20:00 96 Nasal Cannula 2.00 I/O 12/24/16 12/24/16 12/24/16 12/25/16 12/25/16 12/25/16 07:00 15:00 23:00 07:00 15:00 23:00 Intake Total 0 ml 600 ml 672 ml Output Total 2 ml Balance 0 ml 598 ml 672 ml Intake Oral 0 ml 600 ml 672 ml Stool Total 2 ml # Voids 2 3 4 # Bowel Movements 1 1 0 Result Diagram: 12/21/16203712/25/1633 Objective Remarks GENERAL: Morbidly obese pleasant female in no apparent distress. CARDIOVASCULAR: Regular rate and rhythm. RESPIRATORY: No accessory muscle use. CTAB. Decreased breath sounds may be due to body habitus. GASTROINTESTINAL: Abdomen soft, non-tender, nondistended. NEUROLOGICAL: Awake and alert. Normal speech. PSYCHIATRIC: Appropriate mood and affect. Procedures 09/15/2016 bronchoscopy 09/11/2016 bronchoscopy 09/10/2016 left IJ central venous line 08/28/2016 subclavian 7 Norwegian triple-lumen catheter left-sided. 08/18/2016 right arterial line 08/18/2016 right IJ central line Urinary Catheter: No Date of Insertion: Nov 21, 2016 Date of Removal: Nov 30, 2016 Vascular Central Line Catheter: No A/P Assessment and Plan 56-year-old female admitted with respiratory failure and pneumonia, now with chronic respiratory failure. 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 Decannulated 11/28/16, on supplemental O2. -Sputum culture with Pseudomonas aeruginosa and Klebsiella ESBL positive -Continue CPAP at night if sats drop <92%. -Chest x-ray 12/23 with atelectasis at the bases. -Pulmonology, Dr. Beck following. Advises IS q4h, Ventolin 2 puffs qid prn, and to cleanse trach wound twice weekly. Debilitation: Requires assistance for ADLs. -PT and OT following. OT is addressing L hand issues. -OOB with assistance. Acute toxic metabolic encephalopathy/delirium: Resolved -Seroquel 75 mg every 8 hours for agitation -Melatonin 5mg po qHS for insomnia Hypertension, chronic: -12/25: Patient hypotensive today. Metoprolol held. If continues, will need to discontinue or lower dose. Dyslipidemia: chronic -Continue pravastatin. Acute kidney injury: resolved. Creatinine much improved, 0.65. -S/p hemodialysis -Nephrology signed off. -Does have mild pre-renal azotemia, but BUN stable. 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 Pharmacy consult for monitoring. -Continue to follow INR. Type 2 Diabetes mellitus, chronic: Stable. Hemoglobin A1c good at 5.9 although this was in 2005. Currently on calorie restricted diet. Discussed with Dr. Judd, no need to change to diabetic diet also. Right lateral malleolus wound Mild deep tissue injury, right and left buttock -Wound care following. Cleanse right lateral malleolus with NS and gauze. Apply Optifoam gentle every 3-5 days. -Float heel and ankle off mattress surface by placing pillow underneath calf while in bed. Apply skin prep to deep tissue injuries to bilateral buttocks BID and leave open to air. Hypothyroidism, chronic: -Continue Synthroid 200 mcg daily Insomnia: Currently on melatonin 5mg hs and Seroquel q8h. Patient hypotensive today and has presumed obstructive sleep apnea so will not be starting anything additional at this time. Monitor and reassess need for medication adjustment. GI prophylaxis: Protonix 40mg Q12 DVT prophylaxis: Coumadin Discharge Planning SSI pending. Patient requires SNF placement. Kalyani Taveras Dec 25, 2016 11:06
[2016-12-25 14:22] VITALS: BP 97/63; PULSE 88; RESP 18; O2SAT 94
[2016-12-25 15:35] LABS: INTERNATIONAL NORMALIZED RATIO 2.6 RATIO; PROTHROMBIN TIME - PATIENT 30.4 SEC (9.8-11.6)
[2016-12-25] MEDS: WARFARIN SOD 6 MG TAB PO SCH (16:16)
[2016-12-25 19:15] VITALS: BP 80/52; PULSE 100; RESP 16; TEMP 98.5; O2SAT 94
[2016-12-25 21:10] VITALS: O2SAT 94
[2016-12-25] MEDS: PRAVASTATIN SOD 20 MG TAB PO SCH (22:10)
[2016-12-25] MEDS: ACETAMINOPHEN 325 MG TAB PO PRN (22:12)
[2016-12-25] MEDS: MELATONIN 5 MG TAB PO SCH (22:20)
[2016-12-26] MEDS: METOPROLOL TARTRATE 25 MG TAB PO SCH ×2 (06:00→21:26)
[2016-12-26] MEDS: QUEtiapine FUMARATE 25 MG TAB PO SCH ×3 (06:06→21:31)
[2016-12-26] MEDS: LEVOTHYROXINE SODIUM 200 MCG TAB PO SCH (06:06)
[2016-12-26 06:08] VITALS: BP 106/87; PULSE 86; O2SAT 97
[2016-12-26 08:00] VITALS: BP_SYST 101; BP_SYST 98; BP_DIAS 71; BP_DIAS 93; PULSE 105; RESP 18; TEMP 96.9; O2SAT 94; O2SAT 95
[2016-12-26] MEDS: DOCUSATE SODIUM 50 MG/SENNA 8.6 MG TAB PO SCH ×2 (09:00→21:26)
[2016-12-26] MEDS: FAMOTIDINE 20 MG TAB PO SCH ×2 (09:03→21:27)
[2016-12-26] MEDS: EUCERIN CREAM 120 GM JAR TOPICAL SCH ×2 (09:04→21:28)
--- NOTE | 2016-12-26 11:37 | HHI.PR ---
Subjective Remarks Patient seen and examined today for follow-up on weakness and hypoxia. Patient states that she is doing better on a daily basis. She is getting out of bed to chair more often. Objective Vitals Vital Signs Date Time Temp Pulse Resp B/P Pulse Ox O2 Delivery O2 Flow Rate FiO2 12/26/16 08:00 96.9 105 18 98/71 95 12/26/16 06:08 86 106/87 97 12/25/16 21:10 94 Nasal Cannula 2.00 12/25/16 20:00 Nasal Cannula 2.00 12/25/16 19:15 98.5 100 16 80/52 94 12/25/16 14:22 88 18 97/63 94 I/O 12/25/16 12/25/16 12/25/16 12/26/16 12/26/16 12/26/16 06:59 14:59 22:59 06:59 14:59 22:59 Intake Total 672 ml 1390 ml Output Total 300 ml Balance 672 ml 1390 ml -300 ml Intake Oral 672 ml 1390 ml Output Urine Total 300 ml # Voids 4 6 # Bowel Movements 0 1 Result Diagram: 12/25/16 0633 Objective Remarks GENERAL: Well-developed, morbidly obese, in no acute distress. alert and orientated HEENT: Head is normocephalic without any lesions or masses noted. Facial features are symmetric. Eyes: Extraocular muscles are intact. Conjunctivae were clear. NECK: Trachea midline no deviation. CARDIAC: Regular rhythm, regular rate. S1/S2 are heard. No murmurs gallops or rubs. LUNGS: Clear to auscultation bilaterally. No wheeze, rhonchi or rales. No use of accessory muscles on inspiration or expiration. ABDOMEN: Soft, nontender. Nondistended. Bowel sounds heard in all 4 quadrants. No organomegaly or masses. Negative rebound, negative guarding EXTREMITIES: No edema, pulses are equal bilaterally. No cyanosis or clubbing NEUROLOGY: Mood and affect appear appropriate. Moving all extremities, speech is clear Procedures 09/15/2016 bronchoscopy 09/11/2016 bronchoscopy 09/10/2016 left IJ central venous line 08/28/2016 subclavian 7 Kyrgyz triple-lumen catheter left-sided. 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 Decannulated 11/28/16, on supplemental O2. Sputum culture with Pseudomonas aeruginosa and Klebsiella ESBL positive Continue to wean off oxygen Continue albuterol as needed Pulmonology following the patient Right lateral malleolus wound, Mild deep tissue injury, right and left buttock Wound care following. Cleanse right lateral malleolus with NS and gauze. Apply Optifoam gentle every 3-5 days. Float heel and ankle off mattress surface by placing pillow underneath calf while in bed. Apply skin prep to deep tissue injuries to bilateral buttocks BID and leave open to air. Acute toxic metabolic encephalopathy/delirium: Resolved Seroquel 75 mg every 8 hours for agitation Melatonin 5mg po qHS for insomnia Hypertension: chronic, Reduce metoprolol 25 mg twice daily Dyslipidemia: chronic -Continue pravastatin. Acute renal failure: resolved. S/p hemodialysis Nephrology signed off. Elevated transaminases: resolved Gallbladder ultrasound shows hepatomegaly with heterogeneous echotexture. Large echogenic area in the neck of the gallbladder suggestive of a stone Monitor clinically Left IJ/subclavian nonocclusive thrombus Continue Coumadin remains therapeutic, 2.6. Pharmacy consult for monitoring. Type 2 Diabetes mellitus, chronic: Continue diabetic diet. Hypothyroidism, chronic: Continue Synthroid 200 mcg daily GI prophylaxis: Pepcid 20 mg twice daily DVT prophylaxis: Coumadin Discharge Planning Discharge per case management. Documentation indicates that social security is pending, no accepting facility at this time Simeon Reyna Dec 26, 2016 11:37
[2016-12-26] MEDS: WARFARIN SOD 6 MG TAB PO SCH (14:35)
[2016-12-26 20:00] VITALS: BP_SYST 120; BP_SYST 137; BP_DIAS 74; BP_DIAS 95; PULSE 100; PULSE 92; RESP 20; TEMP 96.6; TEMP 98.1; O2SAT 96; O2SAT 99
[2016-12-26 21:00] VITALS: O2SAT 94
[2016-12-26] MEDS: PRAVASTATIN SOD 20 MG TAB PO SCH (21:27)
[2016-12-26] MEDS: MELATONIN 5 MG TAB PO SCH (21:27)
[2016-12-26] MEDS: ACETAMINOPHEN 325 MG TAB PO PRN (21:34)
[2016-12-27] MEDS: QUEtiapine FUMARATE 25 MG TAB PO SCH ×3 (06:45→21:48)
[2016-12-27] MEDS: LEVOTHYROXINE SODIUM 200 MCG TAB PO SCH (06:45)
[2016-12-27] MEDS: FAMOTIDINE 20 MG TAB PO SCH ×2 (08:33→21:48)
[2016-12-27] MEDS: EUCERIN CREAM 120 GM JAR TOPICAL SCH ×2 (08:34→21:50)
[2016-12-27] MEDS: DOCUSATE SODIUM 50 MG/SENNA 8.6 MG TAB PO SCH ×2 (08:34→21:00)
[2016-12-27 08:46] LABS: INTERNATIONAL NORMALIZED RATIO 2.6 RATIO; PROTHROMBIN TIME - PATIENT 30.5 SEC (9.8-11.6)
[2016-12-27] MEDS: METOPROLOL TARTRATE 25 MG TAB PO SCH ×2 (09:00→21:48)
[2016-12-27 09:56] VITALS: BP 99/58; PULSE 84; RESP 16; TEMP 96.7; O2SAT 97
--- NOTE | 2016-12-27 10:45 | HHI.PR ---
Subjective Remarks Patient seen and examined today for follow-up on hypoxia, generalized weakness. Patient states that she did get out of bed yesterday. She is improving on a daily basis. Objective Vitals Vital Signs Date Time Temp Pulse Resp B/P Pulse Ox O2 Delivery O2 Flow Rate FiO2 12/27/16 09:56 96.7 84 16 99/58 97 12/27/16 08:00 98 Nasal Cannula 2.00 Humidified 12/26/16 21:00 94 Nasal Cannula 2.00 12/26/16 20:00 96 Nasal Cannula 2.00 Humidified 12/26/16 20:00 96.6 100 20 120/74 96 I/O 12/26/16 12/26/16 12/26/16 12/27/16 12/27/16 12/27/16 07:00 15:00 23:00 07:00 15:00 23:00 Intake Total 480 ml 240 ml Output Total 300 ml 600 ml Balance -300 ml 480 ml -360 ml Intake Oral 480 ml 240 ml Output Urine Total 300 ml 600 ml # Voids 1 1 # Bowel Movements 0 0 Result Diagram: 12/25/16 0633 Objective Remarks GENERAL: Well-developed, morbidly obese, in no acute distress. alert and orientated HEENT: Head is normocephalic without any lesions or masses noted. Facial features are symmetric. Eyes: Extraocular muscles are intact. Conjunctivae were clear. NECK: Trachea midline no deviation. CARDIAC: Regular rhythm, regular rate. S1/S2 are heard. No murmurs gallops or rubs. LUNGS: Clear to auscultation bilaterally. No wheeze, rhonchi or rales. No use of accessory muscles on inspiration or expiration. ABDOMEN: Soft, nontender. Nondistended. Bowel sounds heard in all 4 quadrants. No organomegaly or masses. Negative rebound, negative guarding EXTREMITIES: No edema, pulses are equal bilaterally. No cyanosis or clubbing NEUROLOGY: Mood and affect appear appropriate. Moving all extremities, speech is clear Procedures 09/15/2016 bronchoscopy 09/11/2016 bronchoscopy 09/10/2016 left IJ central venous line 08/28/2016 subclavian 7 Greek triple-lumen catheter left-sided. 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 Decannulated 11/28/16, on supplemental O2. Sputum culture with Pseudomonas aeruginosa and Klebsiella ESBL positive Continue to wean off oxygen Continue albuterol as needed Pulmonology following the patient Right lateral malleolus wound, Mild deep tissue injury, right and left buttock Wound care following. Cleanse right lateral malleolus with NS and gauze. Apply Optifoam gentle every 3-5 days. Float heel and ankle off mattress surface by placing pillow underneath calf while in bed. Apply skin prep to deep tissue injuries to bilateral buttocks BID and leave open to air. Acute toxic metabolic encephalopathy/delirium: Resolved Seroquel 75 mg every 8 hours for agitation Melatonin 5mg po qHS for insomnia Hypertension: chronic, Reduce metoprolol 25 mg twice daily Dyslipidemia: chronic -Continue pravastatin. Acute renal failure: resolved. S/p hemodialysis Nephrology signed off. Elevated transaminases: resolved Gallbladder ultrasound shows hepatomegaly with heterogeneous echotexture. Large echogenic area in the neck of the gallbladder suggestive of a stone Monitor clinically Left IJ/subclavian nonocclusive thrombus Continue Coumadin remains therapeutic, 2.6. Pharmacy consult for monitoring. Type 2 Diabetes mellitus, chronic: Continue diabetic diet. Hypothyroidism, chronic: Continue Synthroid 200 mcg daily GI prophylaxis: Pepcid 20 mg twice daily DVT prophylaxis: Coumadin Discharge Planning Discharge per case management. Documentation indicates that social security is pending, no accepting facility at this time Simeon Reyna Dec 27, 2016 10:45
[2016-12-27] MEDS: WARFARIN SOD 6 MG TAB PO SCH (16:12)
--- NOTE | 2016-12-27 17:01 | HHI.PR ---
Subjective Remarks Seen and Examined. and still on N/C 2L..Neck Wound is healed. Taking her diet well. NO SOB at rest Objective Vital Signs Date Time Temp Pulse Resp B/P Pulse Ox O2 Delivery O2 Flow Rate FiO2 12/27/16 11:40 Nasal Cannula 2.00 12/27/16 09:56 96.7 84 16 99/58 97 12/27/16 08:00 98 Nasal Cannula 2.00 Humidified 12/26/16 21:00 94 Nasal Cannula 2.00 12/26/16 20:00 96 Nasal Cannula 2.00 Humidified 12/26/16 20:00 96.6 100 20 120/74 96 I/O 12/26/16 12/26/16 12/26/16 12/27/16 12/27/16 12/27/16 06:59 14:59 22:59 06:59 14:59 22:59 Intake Total 480 ml 240 ml Output Total 300 ml 600 ml Balance -300 ml 480 ml -360 ml Intake Oral 480 ml 240 ml Output Urine Total 300 ml 600 ml # Voids 1 1 # Bowel Movements 0 0 Result Diagram: 12/25/16 0633 Objective Remarks This is an obese middle-aged white female who is in no distress HEENT: Head normocephalic.throat clear. Neck: No bruits, no thyroid enlargement.No lymphadenopathy.Healing trach wound . Chest: Decreased breath sounds at bases.Clear lungs. Heart: Heart sounds were regular. S1-S2 no murmur, no S3. Abdomen: Soft, benign. No masses, or tenderness. Bowel sounds are active. Extremities:No edema . Neuro :Moves all limbs.no deficits. Alert and Oriented Assessment and Plan Assessment and Plan IMPRESSION 1. Acute hypercapnic respiratory failure.Resolved 2. Pulmonary edema.Resolved 3. Obesity 4. Obstructive sleep apnea syndrome 5. Hypertension 6. Hypothyroidism. Plan : 1. IS q4h , bedside 2. Wean O2 and check Sat on RA. 3. PT and OT 4. Arrange home O2 if sat <88 on RA. 5. Cont Ventolin HFA , 2 puffs qid prn 6. Rehab soon Abimael Beck MD Dec 27, 2016 17:00
--- NOTE | 2016-12-27 17:41 | PD.WCN.NOT ---
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 Cleanse right lateral malleolus with NS and gauze. Apply Optifoam gentle every 3-5 days. (Available via mistogram only) Float heel and ankle off mattress surface by placing pillow underneath calf while in bed. Additional Information: Patient seen on 5th floor [facility] for follow up fo stage 4 pressure injury to R lateral malleolus. Wound assessment completed with the assistance of Hetal student nurse and VINCENT Pyle 5th floor. VINCENT Pyle removed Optifoam gentle border dressing in place to reveal wound R lateral Malleolus wound. Wound presents with ~80% coverage of dry facia tissue and ~20% pink tissue. Wound has no active drainage and is without odor. Wound measurements are as follows 0.8cm x 0.6cm x ~0.3 cm Periwound noted with slight erythema that is blanchable.Cleansed wound with normal saline and applied Optifoam gentle border dressing. Applied skin prep to periwound before applying adhesive dressing in place. Carie Cordoba [facility] Dec 27, 2016 17:41 Carie Cordoba [facility] Dec 27, 2016 17:41
[2016-12-27 21:38] VITALS: O2SAT 92
[2016-12-27 21:44] VITALS: BP 118/76; PULSE 88; RESP 18; TEMP 97.5; O2SAT 97
[2016-12-27] MEDS: ACETAMINOPHEN 325 MG TAB PO PRN (21:47)
[2016-12-27] MEDS: MELATONIN 5 MG TAB PO SCH (21:48)
[2016-12-27] MEDS: PRAVASTATIN SOD 20 MG TAB PO SCH (21:48)
[2016-12-28 04:00] VITALS: BP 120/68; PULSE 73; RESP 18; TEMP 96.9; O2SAT 91
[2016-12-28] MEDS: LEVOTHYROXINE SODIUM 200 MCG TAB PO SCH (06:34)
[2016-12-28] MEDS: QUEtiapine FUMARATE 25 MG TAB PO SCH ×3 (06:34→20:05)
[2016-12-28 08:00] VITALS: BP 95/72; PULSE 77; RESP 16; TEMP 96.6; O2SAT 95
[2016-12-28] MEDS: DOCUSATE SODIUM 50 MG/SENNA 8.6 MG TAB PO SCH ×2 (09:00→19:53)
[2016-12-28] MEDS: METOPROLOL TARTRATE 25 MG TAB PO SCH ×2 (09:00→19:53)
[2016-12-28] MEDS: FAMOTIDINE 20 MG TAB PO SCH ×2 (09:02→19:53)
[2016-12-28] MEDS: EUCERIN CREAM 120 GM JAR TOPICAL SCH ×2 (09:03→19:54)
[2016-12-28 09:25] VITALS: O2SAT 86
--- NOTE | 2016-12-28 13:16 | HHI.PR ---
Subjective Remarks Patient seen and examined today for follow-up on profound weakness. Patient denies any new complaints. States that she is getting out of bed more often. Objective Vitals Vital Signs Date Time Temp Pulse Resp B/P Pulse Ox O2 Delivery O2 Flow Rate FiO2 12/28/16 09:25 86 21 12/28/16 04:00 96.9 73 18 120/68 91 12/27/16 21:44 97.5 88 18 118/76 97 12/27/16 21:38 92 Nasal Cannula 2.00 12/27/16 20:00 92 Nasal Cannula 2.00 Humidified I/O 12/27/16 12/27/16 12/27/16 12/28/16 12/28/16 12/28/16 07:00 15:00 23:00 07:00 15:00 23:00 Intake Total 240 ml 1750 ml 150 ml Output Total 600 ml 400 ml Balance -360 ml 1350 ml 150 ml Intake Oral 240 ml 1750 ml 150 ml Output Urine Total 600 ml 400 ml # Voids 1 3 2 # Bowel Movements 0 2 Result Diagram: 12/25/16 0633 Objective Remarks GENERAL: Well-developed, morbidly obese, in no acute distress. alert and orientated HEENT: Head is normocephalic without any lesions or masses noted. Facial features are symmetric. Eyes: Extraocular muscles are intact. Conjunctivae were clear. NECK: Trachea midline no deviation. CARDIAC: Regular rhythm, regular rate. S1/S2 are heard. No murmurs gallops or rubs. LUNGS: Clear to auscultation bilaterally. No wheeze, rhonchi or rales. No use of accessory muscles on inspiration or expiration. ABDOMEN: Soft, nontender. Nondistended. Bowel sounds heard in all 4 quadrants. No organomegaly or masses. Negative rebound, negative guarding EXTREMITIES: No edema, pulses are equal bilaterally. No cyanosis or clubbing NEUROLOGY: Mood and affect appear appropriate. Moving all extremities, speech is clear Procedures 09/15/2016 bronchoscopy 09/11/2016 bronchoscopy 09/10/2016 left IJ central venous line 08/28/2016 subclavian 7 [place] triple-lumen catheter left-sided. 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 Decannulated 11/28/16, on supplemental O2. Sputum culture with Pseudomonas aeruginosa and Klebsiella ESBL positive Continue to wean off oxygen Continue albuterol as needed Pulmonology following the patient Right lateral malleolus wound, Mild deep tissue injury, right and left buttock Wound care following. Cleanse right lateral malleolus with NS and gauze. Apply Optifoam gentle every 3-5 days. Float heel and ankle off mattress surface by placing pillow underneath calf while in bed. Apply skin prep to deep tissue injuries to bilateral buttocks BID and leave open to air. Acute toxic metabolic encephalopathy/delirium: Resolved Seroquel 75 mg every 8 hours for agitation Melatonin 5mg po qHS for insomnia Hypertension: chronic, Decrease metoprolol 12.5 mg twice daily Dyslipidemia: chronic -Continue pravastatin. Acute renal failure: resolved. S/p hemodialysis Nephrology signed off. Elevated transaminases: resolved Gallbladder ultrasound shows hepatomegaly with heterogeneous echotexture. Large echogenic area in the neck of the gallbladder suggestive of a stone Monitor clinically Left IJ/subclavian nonocclusive thrombus Continue Coumadin remains therapeutic, 2.6. Pharmacy consult for monitoring. Type 2 Diabetes mellitus, chronic: Continue diabetic diet. Hypothyroidism, chronic: Continue Synthroid 200 mcg daily GI prophylaxis: Pepcid 20 mg twice daily DVT prophylaxis: Coumadin Discharge Planning Discharge per case management. Documentation indicates that social security is pending, no accepting facility at this time Simeon Reyna Dec 28, 2016 13:15
[2016-12-28] MEDS ORDERED: PILL SPLITTER OTHER PRN (13:30)
[2016-12-28] MEDS: WARFARIN SOD 6 MG TAB PO SCH (16:51)
[2016-12-28] MEDS: PRAVASTATIN SOD 20 MG TAB PO SCH (19:53)
[2016-12-28 20:00] VITALS: BP 115/80; PULSE 90; RESP 20; TEMP 97.1; O2SAT 96
[2016-12-28] MEDS: MELATONIN 5 MG TAB PO SCH (20:04)
[2016-12-28] MEDS: ACETAMINOPHEN 325 MG TAB PO PRN (20:05)
[2016-12-28 21:07] VITALS: O2SAT 92
[2016-12-29] MEDS: LEVOTHYROXINE SODIUM 200 MCG TAB PO SCH (04:55)
[2016-12-29] MEDS: QUEtiapine FUMARATE 25 MG TAB PO SCH ×3 (04:55→21:02)
[2016-12-29 08:00] VITALS: BP 115/76; PULSE 95; RESP 18; TEMP 97.8; O2SAT 95
[2016-12-29 08:55] VITALS: O2SAT 98
[2016-12-29] MEDS: EUCERIN CREAM 120 GM JAR TOPICAL SCH ×2 (09:00→21:05)
[2016-12-29] MEDS: DOCUSATE SODIUM 50 MG/SENNA 8.6 MG TAB PO SCH ×2 (09:00→21:00)
[2016-12-29] MEDS: FAMOTIDINE 20 MG TAB PO SCH ×2 (09:20→21:01)
[2016-12-29] MEDS: METOPROLOL TARTRATE 25 MG TAB PO SCH ×2 (09:21→21:02)
--- NOTE | 2016-12-29 10:57 | HHI.PR ---
Subjective Remarks Patient seen and examined today for inability to ambulate, weakness, hypoxia. Patient has a new complaints. Discussed with physical therapy today who indicated patient is candidate for bilateral AFO with postop shoes in order to start ambulating more. Indicates that should be able to start getting up with nursing staff for bedside commode Objective Vitals Vital Signs Date Time Temp Pulse Resp B/P Pulse Ox O2 Delivery O2 Flow Rate FiO2 12/29/16 08:55 98 Nasal Cannula 2.00 12/29/16 08:00 97.8 95 18 115/76 95 12/28/16 22:47 92 2.00 12/28/16 21:07 92 Nasal Cannula 2.00 12/28/16 20:00 97.1 90 20 115/80 96 I/O 12/28/16 12/28/16 12/28/16 12/29/16 12/29/16 12/29/16 06:59 14:59 22:59 06:59 14:59 22:59 Intake Total 150 ml 900 ml 420 ml Balance 150 ml 900 ml 420 ml Intake Oral 150 ml 900 ml 420 ml # Voids 2 5 8 # Bowel Movements 1 4 Result Diagram: 12/25/16 0633 Objective Remarks GENERAL: Well-developed, morbidly obese, in no acute distress. alert and orientated HEENT: Head is normocephalic without any lesions or masses noted. Facial features are symmetric. Eyes: Extraocular muscles are intact. Conjunctivae were clear. NECK: Trachea midline no deviation. CARDIAC: Regular rhythm, regular rate. S1/S2 are heard. No murmurs gallops or rubs. LUNGS: Clear to auscultation bilaterally. No wheeze, rhonchi or rales. No use of accessory muscles on inspiration or expiration. ABDOMEN: Soft, nontender. Nondistended. Bowel sounds heard in all 4 quadrants. No organomegaly or masses. Negative rebound, negative guarding EXTREMITIES: No edema, pulses are equal bilaterally. No cyanosis or clubbing NEUROLOGY: Mood and affect appear appropriate. Moving all extremities, speech is clear Procedures 09/15/2016 bronchoscopy 09/11/2016 bronchoscopy 09/10/2016 left IJ central venous line 08/28/2016 subclavian 7 [place] triple-lumen catheter left-sided. 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 Decannulated 11/28/16, on supplemental O2. Sputum culture with Pseudomonas aeruginosa and Klebsiella ESBL positive Continue to wean off oxygen Continue albuterol as needed Pulmonology following the patient Right lateral malleolus wound, Mild deep tissue injury, right and left buttock Wound care following. Cleanse right lateral malleolus with NS and gauze. Apply Optifoam gentle every 3-5 days. Float heel and ankle off mattress surface by placing pillow underneath calf while in bed. Apply skin prep to deep tissue injuries to bilateral buttocks BID and leave open to air. Acute toxic metabolic encephalopathy/delirium: Resolved Seroquel 75 mg every 8 hours for agitation Melatonin 5mg po qHS for insomnia Hypertension: chronic, Decrease metoprolol 12.5 mg twice daily Dyslipidemia: chronic -Continue pravastatin. Acute renal failure: resolved. S/p hemodialysis Nephrology signed off. Elevated transaminases: resolved Gallbladder ultrasound shows hepatomegaly with heterogeneous echotexture. Large echogenic area in the neck of the gallbladder suggestive of a stone Monitor clinically Left IJ/subclavian nonocclusive thrombus Continue Coumadin remains therapeutic, 2.6. Pharmacy consult for monitoring. Type 2 Diabetes mellitus, chronic: Continue diabetic diet. Hypothyroidism, chronic: Continue Synthroid 200 mcg daily GI prophylaxis: Pepcid 20 mg twice daily DVT prophylaxis: Coumadin Discharge Planning Discharge per case management. Documentation indicates that social security is pending, no accepting facility at this time Simeon Reyna Dec 29, 2016 10:57
[2016-12-29] MEDS: WARFARIN SOD 6 MG TAB PO SCH (16:27)
[2016-12-29 20:00] VITALS: BP 112/73; PULSE 93; RESP 20; TEMP 97.4; O2SAT 96
[2016-12-29 20:22] VITALS: O2SAT 95
[2016-12-29] MEDS: MELATONIN 5 MG TAB PO SCH (21:01)
[2016-12-29] MEDS: PRAVASTATIN SOD 20 MG TAB PO SCH (21:02)
[2016-12-29] MEDS: ACETAMINOPHEN 325 MG TAB PO PRN (21:03)
[2016-12-30] MEDS: LEVOTHYROXINE SODIUM 200 MCG TAB PO SCH (06:19)
[2016-12-30] MEDS: QUEtiapine FUMARATE 25 MG TAB PO SCH ×3 (06:19→21:08)
[2016-12-30] MEDS: METOPROLOL TARTRATE 25 MG TAB PO SCH ×2 (08:25→08:48)
[2016-12-30] MEDS: DOCUSATE SODIUM 50 MG/SENNA 8.6 MG TAB PO SCH ×2 (08:25→21:00)
[2016-12-30] MEDS: FAMOTIDINE 20 MG TAB PO SCH ×2 (08:25→21:08)
[2016-12-30] MEDS: EUCERIN CREAM 120 GM JAR TOPICAL SCH ×2 (08:26→21:09)
[2016-12-30 09:00] VITALS: O2SAT 95
[2016-12-30 09:43] VITALS: BP 122/82; PULSE 91; RESP 16; TEMP 96.6; O2SAT 94
--- NOTE | 2016-12-30 12:29 | HHI.PR ---
Subjective Remarks Patient seen and examined today for follow-up on weakness and hypoxia. Discussed with physical therapy yesterday and indicates patient is slowly progressing. Was able to walk one step and platelet. He states that we can try to transition into bedside commode with nursing staff. Objective Vitals Vital Signs Date Time Temp Pulse Resp B/P Pulse Ox O2 Delivery O2 Flow Rate FiO2 12/30/16 09:43 96.6 91 16 122/82 94 12/30/16 08:15 Nasal Cannula 2.00 21 12/29/16 21:00 Nasal Cannula 2.00 12/29/16 20:22 95 Nasal Cannula 2.00 12/29/16 20:00 97.4 93 20 112/73 96 I/O 12/29/16 12/29/16 12/29/16 12/30/16 12/30/16 12/30/16 07:00 15:00 23:00 07:00 15:00 23:00 Intake Total 420 ml 600 ml 900 ml Output Total 300 ml Balance 420 ml 600 ml 600 ml Intake Oral 420 ml 600 ml 900 ml IV Total 0 ml 0 ml Output Urine Total 300 ml # Voids 8 4 5 # Bowel Movements 4 1 Objective Remarks GENERAL: Well-developed, morbidly obese, in no acute distress. alert and orientated HEENT: Head is normocephalic without any lesions or masses noted. Facial features are symmetric. Eyes: Extraocular muscles are intact. Conjunctivae were clear. NECK: Trachea midline no deviation. CARDIAC: Regular rhythm, regular rate. S1/S2 are heard. No murmurs gallops or rubs. LUNGS: Clear to auscultation bilaterally. No wheeze, rhonchi or rales. No use of accessory muscles on inspiration or expiration. ABDOMEN: Soft, nontender. Nondistended. Bowel sounds heard in all 4 quadrants. No organomegaly or masses. Negative rebound, negative guarding EXTREMITIES: No edema, pulses are equal bilaterally. No cyanosis or clubbing NEUROLOGY: Mood and affect appear appropriate. Moving all extremities, speech is clear Procedures 09/15/2016 bronchoscopy 09/11/2016 bronchoscopy 09/10/2016 left IJ central venous line 08/28/2016 subclavian 7 Bengali triple-lumen catheter left-sided. 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 Decannulated 11/28/16, on supplemental O2. Sputum culture with Pseudomonas aeruginosa and Klebsiella ESBL positive Continue to wean off oxygen Continue albuterol as needed Pulmonology following the patient Right lateral malleolus wound, Mild deep tissue injury, right and left buttock Wound care following. Cleanse right lateral malleolus with NS and gauze. Apply Optifoam gentle every 3-5 days. Float heel and ankle off mattress surface by placing pillow underneath calf while in bed. Apply skin prep to deep tissue injuries to bilateral buttocks BID and leave open to air. Acute toxic metabolic encephalopathy/delirium: Resolved Seroquel 75 mg every 8 hours for agitation Melatonin 5mg po qHS for insomnia Hypertension: chronic, metoprolol 12.5 mg daily Dyslipidemia: chronic -Continue pravastatin. Acute renal failure: resolved. S/p hemodialysis Nephrology signed off. Elevated transaminases: resolved Gallbladder ultrasound shows hepatomegaly with heterogeneous echotexture. Large echogenic area in the neck of the gallbladder suggestive of a stone Monitor clinically Left IJ/subclavian nonocclusive thrombus Continue Coumadin remains therapeutic, 2.6. Pharmacy consult for monitoring. Type 2 Diabetes mellitus, chronic: Continue diabetic diet. Hypothyroidism, chronic: Continue Synthroid 200 mcg daily GI prophylaxis: Pepcid 20 mg twice daily DVT prophylaxis: Coumadin Discharge Planning Discharge per case management. Documentation indicates that social security is pending, no accepting facility at this time Simeon Reyna Dec 30, 2016 12:29
[2016-12-30] MEDS: WARFARIN SOD 6 MG TAB PO SCH (16:09)
[2016-12-30 20:25] VITALS: BP 143/80; PULSE 108; RESP 22; TEMP 98.7; O2SAT 96
[2016-12-30] MEDS: MELATONIN 5 MG TAB PO SCH (21:07)
[2016-12-30] MEDS: PRAVASTATIN SOD 20 MG TAB PO SCH (21:07)
[2016-12-30] MEDS: ACETAMINOPHEN 325 MG TAB PO PRN (21:08)
[2016-12-30 23:33] VITALS: O2SAT 94
[2016-12-31] MEDS: QUEtiapine FUMARATE 25 MG TAB PO SCH ×3 (05:50→21:26)
[2016-12-31] MEDS: LEVOTHYROXINE SODIUM 200 MCG TAB PO SCH (05:50)
[2016-12-31 07:35] VITALS: O2SAT 95
[2016-12-31] MEDS: DOCUSATE SODIUM 50 MG/SENNA 8.6 MG TAB PO SCH ×2 (09:00→20:34)
[2016-12-31] MEDS: EUCERIN CREAM 120 GM JAR TOPICAL SCH ×2 (09:00→21:00)
[2016-12-31] MEDS: FAMOTIDINE 20 MG TAB PO SCH ×2 (09:06→20:34)
[2016-12-31] MEDS: METOPROLOL TARTRATE 25 MG TAB PO SCH (09:06)
[2016-12-31 10:23] VITALS: BP 116/55; PULSE 84; RESP 18; TEMP 96.9; O2SAT 94
--- NOTE | 2016-12-31 11:19 | HHI.PR ---
Subjective Remarks Patient seen and examined today for follow-up on profound weakness, hypoxia. Patient is laying in bed. States she is getting out on a regular basis. We'll need to discuss with nursing staff to start using bedside commode Objective Vitals Vital Signs Date Time Temp Pulse Resp B/P Pulse Ox O2 Delivery O2 Flow Rate FiO2 12/31/16 10:23 96.9 84 18 116/55 94 12/30/16 23:33 94 Nasal Cannula 2.00 12/30/16 21:10 Nasal Cannula 2.00 12/30/16 20:25 98.7 108 22 143/80 96 I/O 12/30/16 12/30/16 12/30/16 12/31/16 12/31/16 12/31/16 07:00 15:00 23:00 07:00 15:00 23:00 Intake Total 900 ml 1000 ml 0 ml Output Total 300 ml 250 ml Balance 600 ml 1000 ml -250 ml Intake Oral 900 ml 1000 ml IV Total 0 ml 0 ml 0 ml Output Urine Total 300 ml 250 ml # Voids 5 3 1 # Bowel Movements 1 1 1 Objective Remarks GENERAL: Well-developed, morbidly obese, in no acute distress. alert and orientated HEENT: Head is normocephalic without any lesions or masses noted. Facial features are symmetric. Eyes: Extraocular muscles are intact. Conjunctivae were clear. NECK: Trachea midline no deviation. CARDIAC: Regular rhythm, regular rate. S1/S2 are heard. No murmurs gallops or rubs. LUNGS: Clear to auscultation bilaterally. No wheeze, rhonchi or rales. No use of accessory muscles on inspiration or expiration. ABDOMEN: Soft, nontender. Nondistended. Bowel sounds heard in all 4 quadrants. No organomegaly or masses. Negative rebound, negative guarding EXTREMITIES: No edema, pulses are equal bilaterally. No cyanosis or clubbing NEUROLOGY: Mood and affect appear appropriate. Moving all extremities, speech is clear Procedures 09/15/2016 bronchoscopy 09/11/2016 bronchoscopy 09/10/2016 left IJ central venous line 08/28/2016 subclavian 7 [place] triple-lumen catheter left-sided. 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 Decannulated 11/28/16, on supplemental O2. Sputum culture with Pseudomonas aeruginosa and Klebsiella ESBL positive Continue to wean off oxygen Continue albuterol as needed Pulmonology following the patient Right lateral malleolus wound, Mild deep tissue injury, right and left buttock Wound care following. Cleanse right lateral malleolus with NS and gauze. Apply Optifoam gentle every 3-5 days. Float heel and ankle off mattress surface by placing pillow underneath calf while in bed. Apply skin prep to deep tissue injuries to bilateral buttocks BID and leave open to air. Acute toxic metabolic encephalopathy/delirium: Resolved Seroquel 75 mg every 8 hours for agitation Melatonin 5mg po qHS for insomnia Hypertension: chronic, metoprolol 12.5 mg daily Dyslipidemia: chronic -Continue pravastatin. Acute renal failure: resolved. S/p hemodialysis Nephrology signed off. Elevated transaminases: resolved Gallbladder ultrasound shows hepatomegaly with heterogeneous echotexture. Large echogenic area in the neck of the gallbladder suggestive of a stone Monitor clinically Left IJ/subclavian nonocclusive thrombus Continue Coumadin remains therapeutic, 2.6. Pharmacy consult for monitoring. Type 2 Diabetes mellitus, chronic: Continue diabetic diet. Hypothyroidism, chronic: Continue Synthroid 200 mcg daily GI prophylaxis: Pepcid 20 mg twice daily DVT prophylaxis: Coumadin Discharge Planning Discharge per case management. Documentation indicates that social security is pending, no accepting facility at this time Simeon Reyna Dec 31, 2016 11:19
[2016-12-31] MEDS: WARFARIN SOD 6 MG TAB PO SCH (16:11)
[2016-12-31 19:13] VITALS: BP 137/80; PULSE 90; RESP 16; TEMP 97.2; O2SAT 98
[2016-12-31 20:01] VITALS: O2SAT 95
[2016-12-31] MEDS: MELATONIN 5 MG TAB PO SCH (20:34)
[2016-12-31] MEDS: PRAVASTATIN SOD 20 MG TAB PO SCH (20:34)
[2017-01-01] MEDS: LEVOTHYROXINE SODIUM 200 MCG TAB PO SCH (05:15)
[2017-01-01] MEDS: QUEtiapine FUMARATE 25 MG TAB PO SCH ×3 (05:15→20:50)
[2017-01-01] MEDS: FAMOTIDINE 20 MG TAB PO SCH ×2 (08:07→20:50)
[2017-01-01] MEDS: METOPROLOL TARTRATE 25 MG TAB PO SCH (08:07)
[2017-01-01] MEDS: DOCUSATE SODIUM 50 MG/SENNA 8.6 MG TAB PO SCH ×2 (08:07→21:00)
[2017-01-01] MEDS: EUCERIN CREAM 120 GM JAR TOPICAL SCH ×2 (08:10→21:00)
--- NOTE | 2017-01-01 08:35 | HHI.PR ---
Subjective Remarks Patient seen and examined today for follow-up on profound weakness, hypoxia. Patient lying in bed comfortable. She has been getting out of bed. Still awaiting patient be strong enough to be discharged home. Objective Vitals Vital Signs Date Time Temp Pulse Resp B/P Pulse Ox O2 Delivery O2 Flow Rate FiO2 12/31/16 20:01 95 Nasal Cannula 2.00 12/31/16 20:00 Nasal Cannula 2.00 12/31/16 19:13 97.2 90 16 137/80 98 12/31/16 10:23 96.9 84 18 116/55 94 I/O 12/31/16 12/31/16 12/31/16 01/01/17 01/01/17 01/01/17 07:00 15:00 23:00 07:00 15:00 23:00 Intake Total 0 ml Output Total 250 ml 450 ml Balance -250 ml -450 ml IV Total 0 ml Output Urine Total 250 ml 450 ml # Voids 1 2 # Bowel Movements 1 Objective Remarks GENERAL: Well-developed, morbidly obese, in no acute distress. alert and orientated HEENT: Head is normocephalic without any lesions or masses noted. Facial features are symmetric. Eyes: Extraocular muscles are intact. Conjunctivae were clear. NECK: Trachea midline no deviation. CARDIAC: Regular rhythm, regular rate. S1/S2 are heard. No murmurs gallops or rubs. LUNGS: Clear to auscultation bilaterally. No wheeze, rhonchi or rales. No use of accessory muscles on inspiration or expiration. ABDOMEN: Soft, nontender. Nondistended. Bowel sounds heard in all 4 quadrants. No organomegaly or masses. Negative rebound, negative guarding EXTREMITIES: No edema, pulses are equal bilaterally. No cyanosis or clubbing NEUROLOGY: Mood and affect appear appropriate. Moving all extremities, speech is clear Procedures 09/15/2016 bronchoscopy 09/11/2016 bronchoscopy 09/10/2016 left IJ central venous line 08/28/2016 subclavian 7 [place] triple-lumen catheter left-sided. 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 Decannulated 11/28/16, on supplemental O2. Sputum culture with Pseudomonas aeruginosa and Klebsiella ESBL positive Continue to wean off oxygen Continue albuterol as needed Pulmonology following the patient Right lateral malleolus wound, Mild deep tissue injury, right and left buttock Wound care following. Cleanse right lateral malleolus with NS and gauze. Apply Optifoam gentle every 3-5 days. Float heel and ankle off mattress surface by placing pillow underneath calf while in bed. Apply skin prep to deep tissue injuries to bilateral buttocks BID and leave open to air. Acute toxic metabolic encephalopathy/delirium: Resolved Seroquel 75 mg every 8 hours for agitation Melatonin 5mg po qHS for insomnia Hypertension: chronic, stable metoprolol 12.5 mg daily Dyslipidemia: chronic -Continue pravastatin. Acute renal failure: resolved. S/p hemodialysis Nephrology signed off. Elevated transaminases: resolved Gallbladder ultrasound shows hepatomegaly with heterogeneous echotexture. Large echogenic area in the neck of the gallbladder suggestive of a stone Monitor clinically Left IJ/subclavian nonocclusive thrombus Continue Coumadin remains therapeutic, 2.6. Pharmacy consult for monitoring. Type 2 Diabetes mellitus, chronic: Continue diabetic diet. Hypothyroidism, chronic: Continue Synthroid 200 mcg daily GI prophylaxis: Pepcid 20 mg twice daily DVT prophylaxis: Coumadin Discharge Planning Discharge per case management. Documentation indicates that social security is pending, no accepting facility at this time Simeon Reyna Jan 01, 2017 08:35
[2017-01-01 08:55] VITALS: BP 125/68; PULSE 97; RESP 19; TEMP 96.6; O2SAT 20
[2017-01-01] MEDS: WARFARIN SOD 6 MG TAB PO SCH (16:24)
[2017-01-01 19:53] VITALS: O2SAT 98
[2017-01-01 20:00] VITALS: BP 119/82; PULSE 47; RESP 20; TEMP 98.2; O2SAT 98
[2017-01-01] MEDS: MELATONIN 5 MG TAB PO SCH (20:50)
[2017-01-01] MEDS: PRAVASTATIN SOD 20 MG TAB PO SCH (20:50)
[2017-01-01] MEDS: ACETAMINOPHEN 325 MG TAB PO PRN (20:51)
[2017-01-02] MEDS: QUEtiapine FUMARATE 25 MG TAB PO SCH ×3 (05:33→21:56)
[2017-01-02] MEDS: LEVOTHYROXINE SODIUM 200 MCG TAB PO SCH (05:33)
[2017-01-02 08:00] VITALS: BP 118/76; PULSE 90; RESP 18; TEMP 97; O2SAT 96
[2017-01-02] MEDS: DOCUSATE SODIUM 50 MG/SENNA 8.6 MG TAB PO SCH ×3 (08:56→21:56)
[2017-01-02] MEDS: METOPROLOL TARTRATE 25 MG TAB PO SCH (08:56)
[2017-01-02] MEDS: EUCERIN CREAM 120 GM JAR TOPICAL SCH ×2 (08:56→21:57)
[2017-01-02] MEDS: FAMOTIDINE 20 MG TAB PO SCH ×2 (08:56→21:56)
--- NOTE | 2017-01-02 11:07 | HHI.PR ---
Subjective Remarks Follow-up for respiratory failure. OT working with patient when I enter the room. Patient states she took a shower for the first time in several months. Objective Vitals Vital Signs Date Time Temp Pulse Resp B/P Pulse Ox O2 Delivery O2 Flow Rate FiO2 01/01/17 20:25 98 Nasal Cannula 2.00 01/01/17 20:00 98.2 47 20 119/82 98 01/01/17 19:53 98 Nasal Cannula 2.00 I/O 01/01/17 01/01/17 01/01/17 01/02/17 01/02/17 01/02/17 07:00 15:00 23:00 07:00 15:00 23:00 Intake Total 620 ml 250 ml Output Total 450 ml Balance -450 ml 620 ml 250 ml Intake Oral 620 ml IV Total 0 ml 250 ml Output Urine Total 450 ml # Voids 2 1 1 Objective Remarks GENERAL: Morbidly obese pleasant female in no apparent distress. CARDIOVASCULAR: Regular rate and rhythm. RESPIRATORY: No accessory muscle use. CTAB. NEUROLOGICAL: Awake and alert. Normal speech. PSYCHIATRIC: Appropriate mood and affect. Procedures 09/15/2016 bronchoscopy 09/11/2016 bronchoscopy 09/10/2016 left IJ central venous line 08/28/2016 subclavian 7 [place] triple-lumen catheter left-sided. 08/18/2016 right arterial line 08/18/2016 right IJ central line Urinary Catheter: No Date of Insertion: Nov 21, 2016 Date of Removal: Nov 30, 2016 Vascular Central Line Catheter: No A/P Assessment and Plan 56-year-old female admitted with respiratory failure and pneumonia, now with chronic respiratory failure. 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 Decannulated 11/28/16, on supplemental O2. -Sputum culture with Pseudomonas aeruginosa and Klebsiella ESBL positive -Continue CPAP at night if sats drop <92%. -Chest x-ray 12/23 with atelectasis at the bases. -Pulmonology, Dr. Beck following. Advises IS q4h, Ventolin 2 puffs qid prn, and to cleanse trach wound twice weekly. Debilitation: Requires assistance for ADLs. Improving. -PT and OT following. OT is addressing L hand issues. -OOB with assistance. Acute toxic metabolic encephalopathy/delirium: Resolved -Seroquel 75 mg every 8 hours for agitation -Melatonin 5mg po qHS for insomnia Hypertension, chronic: Continue Lopressor. Dyslipidemia: chronic -Continue pravastatin. Acute kidney injury: Resolved. -S/p hemodialysis -Nephrology signed off. 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 Pharmacy consult for monitoring. -Continue to follow INR. Type 2 Diabetes mellitus, chronic: Stable. Hemoglobin A1c good at 5.9 although this was in 2005. Currently on calorie restricted diet. Discussed with attending , no need to change to diabetic diet also. Right lateral malleolus wound Mild deep tissue injury, right and left buttock -Wound care following. Cleanse right lateral malleolus with NS and gauze. Apply Optifoam gentle every 3-5 days. -Float heel and ankle off mattress surface by placing pillow underneath calf while in bed. Apply skin prep to deep tissue injuries to bilateral buttocks BID and leave open to air. Hypothyroidism, chronic: -Continue Synthroid 200 mcg daily GI prophylaxis: Protonix 40mg Q12 DVT prophylaxis: Coumadin Discharge Planning SSI pending. Patient requires SNF placement. Kalyani Taveras Jan 02, 2017 11:07 Kalyani Taveras Jan 02, 2017 11:07
[2017-01-02] MEDS: WARFARIN SOD 6 MG TAB PO SCH (15:42)
[2017-01-02 16:52] VITALS: O2SAT 96
[2017-01-02 20:00] VITALS: BP 103/71; PULSE 97; RESP 23; TEMP 96; O2SAT 93
[2017-01-02] MEDS: MELATONIN 5 MG TAB PO SCH (21:56)
[2017-01-02] MEDS: PRAVASTATIN SOD 20 MG TAB PO SCH (21:56)
[2017-01-02] MEDS: ACETAMINOPHEN 325 MG TAB PO PRN (21:56)
[2017-01-02 22:29] VITALS: O2SAT 94
[2017-01-03] MEDS: LEVOTHYROXINE SODIUM 200 MCG TAB PO SCH (05:42)
[2017-01-03] MEDS: QUEtiapine FUMARATE 25 MG TAB PO SCH ×3 (05:42→21:16)
[2017-01-03 08:00] VITALS: BP 123/72; PULSE 90; RESP 18; TEMP 97.9; O2SAT 96
[2017-01-03 08:58] LABS: INTERNATIONAL NORMALIZED RATIO 2.9 RATIO; PROTHROMBIN TIME - PATIENT 33.9 SEC (9.8-11.6)
[2017-01-03] MEDS: EUCERIN CREAM 120 GM JAR TOPICAL SCH ×2 (09:00→21:00)
[2017-01-03] MEDS: DOCUSATE SODIUM 50 MG/SENNA 8.6 MG TAB PO SCH ×2 (09:17→21:00)
[2017-01-03] MEDS: FAMOTIDINE 20 MG TAB PO SCH ×2 (09:17→21:16)
[2017-01-03] MEDS: METOPROLOL TARTRATE 25 MG TAB PO SCH (09:17)
--- NOTE | 2017-01-03 11:54 | HHI.PR ---
Subjective Remarks Follow-up for respiratory failure. Denies difficulty breathing. Objective Vitals Vital Signs Date Time Temp Pulse Resp B/P Pulse Ox O2 Delivery O2 Flow Rate FiO2 01/02/17 22:29 94 Nasal Cannula 2.00 01/02/17 20:00 96.0 97 23 103/71 93 01/02/17 20:00 93 Nasal Cannula 2.00 01/02/17 16:52 96 Nasal Cannula 2.00 I/O 01/02/17 01/02/17 01/02/17 01/03/17 01/03/17 01/03/17 07:00 15:00 23:00 07:00 15:00 23:00 Intake Total 250 ml 840 ml 120 ml Balance 250 ml 840 ml 120 ml Intake Oral 840 ml 120 ml IV Total 250 ml # Voids 1 4 2 # Bowel Movements 0 0 Objective Remarks GENERAL: Morbidly obese pleasant female in no apparent distress. CARDIOVASCULAR: Regular rate and rhythm. RESPIRATORY: No accessory muscle use. CTAB. NEUROLOGICAL: Awake and alert. Normal speech. PSYCHIATRIC: Appropriate mood and affect. Procedures 09/15/2016 bronchoscopy 09/11/2016 bronchoscopy 09/10/2016 left IJ central venous line 08/28/2016 subclavian 7 Turkmen triple-lumen catheter left-sided. 08/18/2016 right arterial line 08/18/2016 right IJ central line Urinary Catheter: No Date of Insertion: Nov 21, 2016 Date of Removal: Nov 30, 2016 Vascular Central Line Catheter: No A/P Assessment and Plan 56-year-old female admitted with respiratory failure and pneumonia, now with chronic respiratory failure. 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 Decannulated 11/28/16, on supplemental O2. -Sputum culture with Pseudomonas aeruginosa and Klebsiella ESBL positive -Continue CPAP at night if sats drop <92%. -Chest x-ray 12/23 with atelectasis at the bases. -Pulmonology, Dr. Beck following. Advises IS q4h, Ventolin 2 puffs qid prn, and to cleanse trach wound twice weekly. Debilitation: Requires assistance for ADLs. Improving. -PT and OT following. OT is addressing L hand issues. -OOB with assistance. Acute toxic metabolic encephalopathy/delirium: Resolved -Seroquel 75 mg every 8 hours for agitation -Melatonin 5mg po qHS for insomnia Hypertension, chronic: Continue Lopressor. Dyslipidemia: chronic -Continue pravastatin. Acute kidney injury: Resolved. -S/p hemodialysis -Nephrology signed off. 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 Pharmacy consult for monitoring. -Continue to follow INR. Type 2 Diabetes mellitus, chronic: Stable. Hemoglobin A1c good at 5.9 although this was in 2005. Currently on calorie restricted diet. Discussed with attending , no need to change to diabetic diet also. Right lateral malleolus wound Mild deep tissue injury, right and left buttock -Wound care following. Cleanse right lateral malleolus with NS and gauze. Apply Optifoam gentle every 3-5 days. -Float heel and ankle off mattress surface by placing pillow underneath calf while in bed. Apply skin prep to deep tissue injuries to bilateral buttocks BID and leave open to air. Hypothyroidism, chronic: -Continue Synthroid 200 mcg daily GI prophylaxis: Protonix 40mg Q12 DVT prophylaxis: Coumadin Discharge Planning 01/03: CM requested Hellen at the [facility] to evaluate patient for placement Kalyani Taveras Jan 03, 2017 11:54
[2017-01-03] MEDS: WARFARIN SOD 6 MG TAB PO SCH (16:12)
[2017-01-03 20:00] VITALS: BP 108/67; PULSE 88; RESP 24; TEMP 96.8; O2SAT 96
[2017-01-03 21:00] VITALS: O2SAT 94
[2017-01-03] MEDS: MELATONIN 5 MG TAB PO SCH (21:16)
[2017-01-03] MEDS: PRAVASTATIN SOD 20 MG TAB PO SCH (21:16)
[2017-01-03] MEDS: ACETAMINOPHEN 325 MG TAB PO PRN (21:18)
[2017-01-04] MEDS: LEVOTHYROXINE SODIUM 200 MCG TAB PO SCH (05:16)
[2017-01-04] MEDS: QUEtiapine FUMARATE 25 MG TAB PO SCH ×3 (05:16→22:16)
[2017-01-04 07:55] VITALS: O2SAT 95
[2017-01-04 08:00] VITALS: BP 109/82; PULSE 87; RESP 20; TEMP 98.2; O2SAT 99
[2017-01-04] MEDS: DOCUSATE SODIUM 50 MG/SENNA 8.6 MG TAB PO SCH ×2 (08:37→20:44)
[2017-01-04] MEDS: METOPROLOL TARTRATE 25 MG TAB PO SCH (08:37)
[2017-01-04] MEDS: EUCERIN CREAM 120 GM JAR TOPICAL SCH ×2 (08:38→20:33)
[2017-01-04] MEDS: FAMOTIDINE 20 MG TAB PO SCH ×2 (08:38→20:31)
--- NOTE | 2017-01-04 10:29 | HHI.PR ---
Subjective Remarks Follow-up for respiratory failure. She denies any difficulty breathing. Patient requests increase in her diet. She is currently on a 1200 kCal calorie restricted diet as requested by the [employer], but she states she has very limited choices stating she can only choose between chicken and roast beef because she does not like fish and she only gets a dry bagel for breakfast. I informed the patient that weight management is important not only for her respiratory status but also due the increased risk of heart disease and stroke with increased weight. She understands. She states when she was on regular diet before she would not eat all of the food. Objective Vitals Vital Signs Date Time Temp Pulse Resp B/P Pulse Ox O2 Delivery O2 Flow Rate FiO2 01/04/17 08:00 98.2 87 20 109/82 99 01/04/17 07:55 95 Nasal Cannula 2.00 01/03/17 21:00 94 Nasal Cannula 2.00 01/03/17 20:00 96.8 88 24 108/67 96 01/03/17 20:00 96.8 88 24 108/67 96 01/03/17 20:00 96 Nasal Cannula 2.00 01/03/17 15:00 Nasal Cannula 2.00 I/O 01/03/17 01/03/17 01/03/17 01/04/17 01/04/17 01/04/17 07:00 15:00 23:00 07:00 15:00 23:00 Intake Total 120 ml 1200 ml 480 ml Output Total 1 ml 1 ml 350 ml Balance 120 ml -1 ml 1199 ml 130 ml Intake Oral 120 ml 1200 ml 480 ml Output Urine Total 350 ml Stool Total 1 ml 1 ml # Voids 2 4 1 # Bowel Movements 0 0 0 Objective Remarks GENERAL: Morbidly obese pleasant female in no apparent distress. CARDIOVASCULAR: Regular rate and rhythm. RESPIRATORY: No accessory muscle use. CTAB. NC in place at 1L. GASTROINTESTINAL: Abdomen soft, non-tender, non-distended. NEUROLOGICAL: Awake and alert. Normal speech. PSYCHIATRIC: Appropriate mood and affect. Procedures 09/15/2016 bronchoscopy 09/11/2016 bronchoscopy 09/10/2016 left IJ central venous line 08/28/2016 subclavian 7 Khmer triple-lumen catheter left-sided. 08/18/2016 right arterial line 08/18/2016 right IJ central line Urinary Catheter: No Date of Insertion: Nov 21, 2016 Date of Removal: Nov 30, 2016 Vascular Central Line Catheter: No A/P Assessment and Plan 56-year-old female admitted with respiratory failure and pneumonia, now with chronic respiratory failure. 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 -S/p tracheostomy. Decannulated 11/28/16, on supplemental O2. -Sputum culture with Pseudomonas aeruginosa and Klebsiella ESBL positive -Continue CPAP at night if sats drop <92%. -Chest x-ray 12/23 with atelectasis at the bases. -Pulmonology, Dr. Beck following. Advises IS q4h, Ventolin 2 puffs qid prn, and to cleanse trach wound twice weekly. -01/04: Patient now down to 1L on nasal cannula at 99% saturation. Debilitation: Requires assistance for ADLs. Improving. -PT and OT following. OT is addressing L hand issues. -OOB with assistance. Acute toxic metabolic encephalopathy/delirium: Resolved -Seroquel 75 mg every 8 hours for agitation -Melatonin 5mg po qHS for insomnia Hypertension, chronic: Continue Lopressor. Dyslipidemia: chronic -Continue pravastatin. Acute kidney injury: Resolved. -S/p hemodialysis -Nephrology signed off. 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 Pharmacy consult for monitoring. -Continue to follow INR. Type 2 Diabetes mellitus, chronic: Stable. Hemoglobin A1c good at 5.9 although this was in 2005. Currently on calorie restricted diet as advised by [employer]. Discussed with attending, no need to change to diabetic diet also. Will increase diet to 1500 kcal to give patient more food options. Right lateral malleolus wound Mild deep tissue injury, right and left buttock -Wound care following. Cleanse right lateral malleolus with NS and gauze. Apply Optifoam gentle every 3-5 days. -Float heel and ankle off mattress surface by placing pillow underneath calf while in bed. Apply skin prep to deep tissue injuries to bilateral buttocks BID and leave open to air. Hypothyroidism, chronic: -Continue Synthroid 200 mcg daily GI prophylaxis: Protonix 40mg Q12 DVT prophylaxis: Coumadin Discharge Planning 01/03: CM requested Hellen at the [facility] to evaluate patient for placement Kalyani Taveras Jan 04, 2017 10:29
[2017-01-04] MEDS: WARFARIN SOD 6 MG TAB PO SCH (16:14)
[2017-01-04 19:50] VITALS: O2SAT 95
[2017-01-04 20:00] VITALS: BP 130/84; PULSE 97; RESP 22; TEMP 97.9; O2SAT 96
[2017-01-04] MEDS: MELATONIN 5 MG TAB PO SCH (20:29)
[2017-01-04] MEDS: ACETAMINOPHEN 325 MG TAB PO PRN (20:30)
[2017-01-04] MEDS: PRAVASTATIN SOD 20 MG TAB PO SCH (20:31)
[2017-01-05] MEDS: LEVOTHYROXINE SODIUM 200 MCG TAB PO SCH (05:18)
[2017-01-05] MEDS: QUEtiapine FUMARATE 25 MG TAB PO SCH ×3 (05:18→20:31)
[2017-01-05 08:00] VITALS: BP 123/72; PULSE 97; RESP 20; TEMP 96.9; O2SAT 94
[2017-01-05] MEDS: DOCUSATE SODIUM 50 MG/SENNA 8.6 MG TAB PO SCH ×2 (09:00→20:27)
[2017-01-05] MEDS: EUCERIN CREAM 120 GM JAR TOPICAL SCH ×2 (09:00→20:31)
[2017-01-05] MEDS: FAMOTIDINE 20 MG TAB PO SCH ×2 (09:10→20:31)
[2017-01-05] MEDS: METOPROLOL TARTRATE 25 MG TAB PO SCH (09:10)
--- NOTE | 2017-01-05 13:01 | HHI.PR ---
Subjective Remarks Follow-up for respiratory failure. Patient denies any shortness of breath. Objective Vitals Vital Signs Date Time Temp Pulse Resp B/P Pulse Ox O2 Delivery O2 Flow Rate FiO2 01/05/17 08:00 96.9 97 20 123/72 94 01/05/17 08:00 99 Nasal Cannula 1.00 01/04/17 21:30 16 01/04/17 20:00 97.9 97 22 130/84 96 01/04/17 20:00 96 Nasal Cannula 2.00 01/04/17 19:50 95 Nasal Cannula 1.00 I/O 01/04/17 01/04/17 01/04/17 01/05/17 01/05/17 01/05/17 07:00 15:00 23:00 07:00 15:00 23:00 Intake Total 480 ml 360 ml 580 ml 480 ml Output Total 350 ml 300 ml 250 ml Balance 130 ml 360 ml 280 ml 230 ml Intake Oral 480 ml 360 ml 580 ml 480 ml Output Urine Total 350 ml 300 ml 250 ml # Voids 1 1 # Bowel Movements 0 0 2 1 Objective Remarks GENERAL: Morbidly obese pleasant female in no apparent distress sitting in recliner. CARDIOVASCULAR: Regular rate and rhythm. RESPIRATORY: No accessory muscle use. CTAB. NC in place. NEUROLOGICAL: Awake and alert. Normal speech. PSYCHIATRIC: Appropriate mood and affect. Procedures 09/15/2016 bronchoscopy 09/11/2016 bronchoscopy 09/10/2016 left IJ central venous line 08/28/2016 subclavian 7 Arabic triple-lumen catheter left-sided. 08/18/2016 right arterial line 08/18/2016 right IJ central line Urinary Catheter: No Date of Insertion: Nov 21, 2016 Date of Removal: Nov 30, 2016 Vascular Central Line Catheter: No A/P Assessment and Plan 56-year-old female admitted with respiratory failure and pneumonia, now with chronic respiratory failure. 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 -S/p tracheostomy. Decannulated 11/28/16, on supplemental O2. -Sputum culture with Pseudomonas aeruginosa and Klebsiella ESBL positive -Continue CPAP at night if sats drop <92%. -Chest x-ray 12/23 with atelectasis at the bases. -Pulmonology, Dr. Beck following. Advises IS q4h, Ventolin 2 puffs qid prn, and to cleanse trach wound twice weekly. -Patient now down to 1L on nasal cannula. Debilitation: Requires assistance for ADLs. Improving. -PT and OT following. OT is addressing L hand issues. -OOB with assistance. Acute toxic metabolic encephalopathy/delirium: Resolved -Seroquel 75 mg every 8 hours for agitation -Melatonin 5mg po qHS for insomnia Hypertension, chronic: Continue Lopressor. Dyslipidemia: chronic -Continue pravastatin. Acute kidney injury: Resolved. -S/p hemodialysis -Nephrology signed off. 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 Pharmacy consult for monitoring. -Continue to follow INR. Type 2 Diabetes mellitus, chronic: Stable. Hemoglobin A1c good at 5.9 although this was in 2005. Currently on calorie restricted diet as advised by service order dispatcher chief. Discussed with attending, no need to change to diabetic diet also. Increased diet per patient request to 1500 kcal to give patient more food options. Right lateral malleolus wound Mild deep tissue injury, right and left buttock -Wound care following. Cleanse right lateral malleolus with NS and gauze. Apply Optifoam gentle every 3-5 days. -Float heel and ankle off mattress surface by placing pillow underneath calf while in bed. Apply skin prep to deep tissue injuries to bilateral buttocks BID and leave open to air. Hypothyroidism, chronic: -Continue Synthroid 200 mcg daily GI prophylaxis: Protonix 40mg Q12 DVT prophylaxis: Coumadin Discharge Planning 01/03: CM requested Hellen at the [facility] to evaluate patient for placement Kalyani Taveras Jan 05, 2017 13:01
[2017-01-05] MEDS: WARFARIN SOD 6 MG TAB PO SCH (15:12)
[2017-01-05 15:52] VITALS: O2SAT 95
--- NOTE | 2017-01-05 18:43 | PD.WCN.NOT ---
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 Cleanse right lateral malleolus with NS and gauze. Apply Optifoam gentle every 3-5 days. (Available via mistogram only) Float heel and ankle off mattress surface by placing pillow underneath calf while in bed. Additional Information: Patient seen on 5th floor [facility] for follow up fo stage 4 pressure injury to R lateral malleolus. Wound assessment of policy writer sales removed rolled gauze and foam dressing in place to reveal R lateral Malleolus wound. Wound presents with 90% coverage of pale yellow tissue and 10% pink tissue. Wound has no active drainage and is without odor. Wound measurements are as follows 0.6cm x 0.4cm x ~0.1 cm Periwound noted with slight erythema that is blanchable and scar tissue.Cleansed wound with normal saline and applied Optifoam gentle border dressing. Applied skin prep to periwound before applying adhesive dressing in place.Wound continues to measure smaller. Carie Cordoba 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 Jan 05, 2017 18:42
[2017-01-05 20:00] VITALS: BP 106/79; PULSE 111; RESP 18; TEMP 97.4; O2SAT 94
[2017-01-05] MEDS: MELATONIN 5 MG TAB PO SCH (20:31)
[2017-01-05] MEDS: PRAVASTATIN SOD 20 MG TAB PO SCH (20:31)
[2017-01-05] MEDS: ACETAMINOPHEN 325 MG TAB PO PRN (20:34)
[2017-01-05 21:10] VITALS: O2SAT 93
[2017-01-06] MEDS: LEVOTHYROXINE SODIUM 200 MCG TAB PO SCH (05:29)
[2017-01-06] MEDS: QUEtiapine FUMARATE 25 MG TAB PO SCH ×3 (05:29→20:49)
[2017-01-06 08:00] VITALS: BP 104/84; PULSE 97; RESP 20; TEMP 97.7; O2SAT 93; O2SAT 95
[2017-01-06] MEDS: METOPROLOL TARTRATE 25 MG TAB PO SCH (08:52)
[2017-01-06] MEDS: DOCUSATE SODIUM 50 MG/SENNA 8.6 MG TAB PO SCH ×3 (08:53→20:50)
[2017-01-06] MEDS: FAMOTIDINE 20 MG TAB PO SCH ×2 (08:53→20:50)
[2017-01-06] MEDS: EUCERIN CREAM 120 GM JAR TOPICAL SCH ×2 (08:54→20:50)
--- NOTE | 2017-01-06 12:25 | HHI.PR ---
Subjective Remarks Follow-up for respiratory failure. Patient no longer requiring oxygen. She denies any shortness of breath. Objective Vitals Vital Signs Date Time Temp Pulse Resp B/P Pulse Ox O2 Delivery O2 Flow Rate FiO2 01/06/17 09:15 Room Air 01/06/17 08:00 97.7 97 20 104/84 95 01/05/17 21:10 93 21 01/05/17 20:00 97.4 111 18 106/79 94 01/05/17 20:00 Room Air 01/05/17 15:52 95 Nasal Cannula 1.00 01/05/17 15:35 95 Room Air I/O 01/05/17 01/05/17 01/05/17 01/06/17 01/06/17 01/06/17 07:00 15:00 23:00 07:00 15:00 23:00 Intake Total 480 ml 750 ml 120 ml Output Total 250 ml 850 ml Balance 230 ml -100 ml 120 ml Intake Oral 480 ml 750 ml 120 ml Output Urine Total 250 ml 850 ml # Voids 3 # Bowel Movements 1 2 1 Objective Remarks GENERAL: Morbidly obese pleasant female in no apparent distress. CARDIOVASCULAR: Regular rate and rhythm. RESPIRATORY: No accessory muscle use. CTAB. NEUROLOGICAL: Awake and alert. Normal speech. PSYCHIATRIC: Appropriate mood and affect. Procedures 09/15/2016 bronchoscopy 09/11/2016 bronchoscopy 09/10/2016 left IJ central venous line 08/28/2016 subclavian 7 Serbian triple-lumen catheter left-sided. 08/18/2016 right arterial line 08/18/2016 right IJ central line Urinary Catheter: No Date of Insertion: Nov 21, 2016 Date of Removal: Nov 30, 2016 Vascular Central Line Catheter: No A/P Assessment and Plan 56-year-old female admitted with respiratory failure and pneumonia, now with chronic respiratory failure. 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 -S/p tracheostomy. Decannulated 11/28/16, on supplemental O2. -Sputum culture with Pseudomonas aeruginosa and Klebsiella ESBL positive -Continue CPAP at night if sats drop <92%. -Chest x-ray 12/23 with atelectasis at the bases. -Pulmonology, Dr. Beck following. Advises IS q4h, Ventolin 2 puffs qid prn, and to cleanse trach wound twice weekly. -01/06: Patient with 93-95% oxygen saturation on room air. Respiratory to continue following. Debilitation: Requires assistance for ADLs. Improving. -PT and OT following. OT is addressing L hand issues. -OOB with assistance. Acute toxic metabolic encephalopathy/delirium: Resolved -Seroquel 75 mg every 8 hours for agitation -Melatonin 5mg po qHS for insomnia Hypertension, chronic: Continue Lopressor. Dyslipidemia: chronic -Continue pravastatin. Acute kidney injury: Resolved. -S/p hemodialysis -Nephrology signed off. 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 Pharmacy consult for monitoring. -Continue to follow INR. Type 2 Diabetes mellitus, chronic: Stable. Hemoglobin A1c good at 5.9 although this was in 2005. Currently on calorie restricted diet as advised by clinical allergist. Discussed with attending, no need to change to diabetic diet also. Increased diet per patient request to 1500 kcal to give patient more food options. Right lateral malleolus wound Mild deep tissue injury, right and left buttock -Wound care following. Cleanse right lateral malleolus with NS and gauze. Apply Optifoam gentle every 3-5 days. -Float heel and ankle off mattress surface by placing pillow underneath calf while in bed. Apply skin prep to deep tissue injuries to bilateral buttocks BID and leave open to air. Hypothyroidism, chronic: -Continue Synthroid 200 mcg daily GI prophylaxis: Protonix 40mg Q12 DVT prophylaxis: Coumadin Discharge Planning 01/03: CM requested Hellen at the [facility] to evaluate patient for placement Kalyani Taveras Jan 06, 2017 12:25
[2017-01-06] MEDS: WARFARIN SOD 6 MG TAB PO SCH (16:13)
[2017-01-06 20:00] VITALS: BP 113/80; PULSE 101; RESP 20; TEMP 96.2; O2SAT 95; O2SAT 97
[2017-01-06] MEDS: MELATONIN 5 MG TAB PO SCH (20:49)
[2017-01-06] MEDS: ACETAMINOPHEN 325 MG TAB PO PRN (20:49)
[2017-01-06] MEDS: PRAVASTATIN SOD 20 MG TAB PO SCH (20:50)
[2017-01-07] MEDS: QUEtiapine FUMARATE 25 MG TAB PO SCH ×3 (06:22→20:56)
[2017-01-07] MEDS: LEVOTHYROXINE SODIUM 200 MCG TAB PO SCH (06:22)
[2017-01-07 08:00] VITALS: BP 123/91; PULSE 97; RESP 18; TEMP 96.1; O2SAT 97
[2017-01-07] MEDS: METOPROLOL TARTRATE 25 MG TAB PO SCH (08:55)
[2017-01-07] MEDS: FAMOTIDINE 20 MG TAB PO SCH ×2 (08:55→20:55)
[2017-01-07] MEDS: DOCUSATE SODIUM 50 MG/SENNA 8.6 MG TAB PO SCH ×2 (08:55→20:56)
[2017-01-07] MEDS: EUCERIN CREAM 120 GM JAR TOPICAL SCH ×2 (08:56→20:56)
[2017-01-07 10:00] VITALS: O2SAT 95
--- NOTE | 2017-01-07 10:21 | HHI.PR ---
Subjective Remarks Follow-up for respiratory failure. Denies feeling sob without oxygen. She states she has a history of using CPAP at night but also states she's claustrophobic. Currently does not use CPAP and sleeps with head of bed elevated. She denies any PND. Objective Vitals Vital Signs Date Time Temp Pulse Resp B/P Pulse Ox O2 Delivery O2 Flow Rate FiO2 01/07/17 08:00 96.1 97 18 123/91 97 01/06/17 20:00 96.2 101 20 113/80 95 01/06/17 20:00 97 21 01/06/17 20:00 Room Air I/O 01/06/17 01/06/17 01/06/17 01/07/17 01/07/17 01/07/17 06:59 14:59 22:59 06:59 14:59 22:59 Intake Total 120 ml 240 ml Balance 120 ml 240 ml Intake Oral 120 ml 240 ml # Voids 3 2 # Bowel Movements 1 Objective Remarks GENERAL: Morbidly obese pleasant female in no apparent distress. CARDIOVASCULAR: Regular rate and rhythm. RESPIRATORY: No accessory muscle use. CTAB. NEUROLOGICAL: Awake and alert. Normal speech. PSYCHIATRIC: Appropriate mood and affect. Procedures 09/15/2016 bronchoscopy 09/11/2016 bronchoscopy 09/10/2016 left IJ central venous line 08/28/2016 subclavian 7 British triple-lumen catheter left-sided. 08/18/2016 right arterial line 08/18/2016 right IJ central line Urinary Catheter: No Date of Insertion: Nov 21, 2016 Date of Removal: Nov 30, 2016 Vascular Central Line Catheter: No A/P Assessment and Plan 56-year-old female admitted with respiratory failure and pneumonia, now with chronic respiratory failure. 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 -S/p tracheostomy. Decannulated 11/28/16, on supplemental O2. -Sputum culture with Pseudomonas aeruginosa and Klebsiella ESBL positive -Continue CPAP at night if sats drop <92%. -Chest x-ray 12/23 with atelectasis at the bases. -Pulmonology, Dr. Beck following. Advises IS q4h, Ventolin 2 puffs qid prn, and to cleanse trach wound twice weekly. -01/07: Patient with 97% oxygen saturation on room air. Respiratory to continue following. Debilitation: Requires assistance for ADLs. Improving. -PT and OT following. OT is addressing L hand issues. -OOB with assistance. Acute toxic metabolic encephalopathy/delirium: Resolved -Seroquel 75 mg every 8 hours for agitation -Melatonin 5mg po qHS for insomnia Hypertension, chronic: Continue Lopressor. Dyslipidemia: chronic -Continue pravastatin. Acute kidney injury: Resolved. -S/p hemodialysis -Nephrology signed off. 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 Pharmacy consult for monitoring. -Continue to follow INR. Type 2 Diabetes mellitus, chronic: Stable. Hemoglobin A1c good at 5.9 although this was in 2005. Currently on calorie restricted diet as advised by patient accounts clerk. Discussed with attending, no need to change to diabetic diet also. Increased diet per patient request to 1500 kcal to give patient more food options. Right lateral malleolus wound Mild deep tissue injury, right and left buttock -Wound care following. Cleanse right lateral malleolus with NS and gauze. Apply Optifoam gentle every 3-5 days. -Float heel and ankle off mattress surface by placing pillow underneath calf while in bed. Apply skin prep to deep tissue injuries to bilateral buttocks BID and leave open to air. Hypothyroidism, chronic: -Continue Synthroid 200 mcg daily GI prophylaxis: Protonix 40mg Q12 DVT prophylaxis: Coumadin Discharge Planning 01/03: CM requested Hellen at the [facility] to evaluate patient for placement Kalyani Taveras Jan 07, 2017 10:21
[2017-01-07] MEDS: WARFARIN SOD 6 MG TAB PO SCH (15:38)
[2017-01-07 20:00] VITALS: BP 114/87; PULSE 94; RESP 20; TEMP 99; O2SAT 90
[2017-01-07] MEDS: PRAVASTATIN SOD 20 MG TAB PO SCH (20:55)
[2017-01-07] MEDS: MELATONIN 5 MG TAB PO SCH (20:55)
[2017-01-07] MEDS: ACETAMINOPHEN 325 MG TAB PO PRN (20:56)
[2017-01-07 21:52] VITALS: O2SAT 94
[2017-01-08] MEDS: LEVOTHYROXINE SODIUM 200 MCG TAB PO SCH (06:11)
[2017-01-08] MEDS: QUEtiapine FUMARATE 25 MG TAB PO SCH ×3 (06:11→22:00)
[2017-01-08 08:00] VITALS: BP 115/76; PULSE 75; RESP 18; TEMP 97.4; O2SAT 94; O2SAT 99
[2017-01-08] MEDS: EUCERIN CREAM 120 GM JAR TOPICAL SCH ×2 (09:00→22:02)
[2017-01-08] MEDS: DOCUSATE SODIUM 50 MG/SENNA 8.6 MG TAB PO SCH ×2 (09:00→22:00)
[2017-01-08] MEDS: METOPROLOL TARTRATE 25 MG TAB PO SCH (09:08)
[2017-01-08] MEDS: FAMOTIDINE 20 MG TAB PO SCH ×2 (09:08→22:00)
--- NOTE | 2017-01-08 10:25 | HHI.PR ---
Subjective Remarks Follow up for respiratory failure. Patient states she didn't sleep last night because she had to get up to use the bathroom, having 2 BMs. The patient was placed back on oxygen at 2 L nasal cannula last night. She denies feeling short of breath prior to this. She denies any new cough. Denies any fevers or chills. Objective Vitals Vital Signs Date Time Temp Pulse Resp B/P Pulse Ox O2 Delivery O2 Flow Rate FiO2 01/08/17 08:00 97.4 75 18 115/76 99 01/07/17 21:52 94 Nasal Cannula 2.00 01/07/17 20:00 99.0 94 20 114/87 90 01/07/17 20:00 Nasal Cannula 2.00 Humidified I/O 01/07/17 01/07/17 01/07/17 01/08/17 01/08/17 01/08/17 07:00 15:00 23:00 07:00 15:00 23:00 Intake Total 240 ml 720 ml 620 ml Balance 240 ml 720 ml 620 ml Intake Oral 240 ml 720 ml 620 ml # Voids 2 4 3 # Bowel Movements 0 2 Objective Remarks GENERAL: Morbidly obese pleasant female in no apparent distress. CARDIOVASCULAR: Regular rate and rhythm. RESPIRATORY: No accessory muscle use. CTAB. GASTROINTESTINAL: Abdomen soft, non-tender, non-distended. NEUROLOGICAL: Awake and alert. Normal speech. PSYCHIATRIC: Appropriate mood and affect. Procedures 09/15/2016 bronchoscopy 09/11/2016 bronchoscopy 09/10/2016 left IJ central venous line 08/28/2016 subclavian 7 Kyrgyz triple-lumen catheter left-sided. 08/18/2016 right arterial line 08/18/2016 right IJ central line Urinary Catheter: No Date of Insertion: Nov 21, 2016 Date of Removal: Nov 30, 2016 Vascular Central Line Catheter: No A/P Assessment and Plan 56-year-old female admitted with respiratory failure and pneumonia, now with chronic respiratory failure. 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 Decannulated 11/28/16, on supplemental O2. -Sputum culture with Pseudomonas aeruginosa and Klebsiella ESBL positive -Chest x-ray 12/23 with atelectasis at the bases. -Pulmonology, Dr. Beck following. Advises IS q4h, Ventolin 2 puffs qid prn, and to cleanse trach wound twice weekly. -Patient has not been using CPAP although did use it at home, but states she was claustrophobic with it. Patient would need CPAP at night, but she states she sleeps in elevated position. -01/08: Placed back on O2 via NC last night. Monitor. Debilitation: Requires assistance for ADLs. Improving. -PT and OT following. OT is addressing L hand issues. -OOB with assistance. Acute toxic metabolic encephalopathy/delirium: Resolved -Seroquel 75 mg every 8 hours for agitation -Melatonin 5mg po qHS for insomnia Hypertension, chronic: Continue Lopressor. Dyslipidemia: chronic -Continue pravastatin. Acute kidney injury: Resolved. -S/p hemodialysis -Nephrology signed off. 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 Pharmacy consult for monitoring. -Continue to follow INR. Type 2 Diabetes mellitus, chronic: Stable. Hemoglobin A1c good at 5.9 although this was in 2005. Currently on calorie restricted diet as advised by director of scientific research. Discussed with attending, no need to change to diabetic diet also. Increased diet per patient request to 1500 kcal to give patient more food options. Right lateral malleolus wound Mild deep tissue injury, right and left buttock -Wound care following. Cleanse right lateral malleolus with NS and gauze. Apply Optifoam gentle every 3-5 days. -Float heel and ankle off mattress surface by placing pillow underneath calf while in bed. Apply skin prep to deep tissue injuries to bilateral buttocks BID and leave open to air. Hypothyroidism, chronic: -Continue Synthroid 200 mcg daily GI prophylaxis: Protonix 40mg Q12 DVT prophylaxis: Coumadin Discharge Planning 01/03: CM requested Hellen at the [facility] to evaluate patient for placement Kalyani Taveras Jan 08, 2017 10:25
[2017-01-08] MEDS: WARFARIN SOD 6 MG TAB PO SCH (14:51)
[2017-01-08 20:00] VITALS: BP 113/81; PULSE 105; RESP 16; TEMP 97.9; O2SAT 97
[2017-01-08 21:10] VITALS: O2SAT 94
[2017-01-08] MEDS: PRAVASTATIN SOD 20 MG TAB PO SCH (22:00)
[2017-01-08] MEDS: MELATONIN 5 MG TAB PO SCH (22:00)
[2017-01-08] MEDS: ACETAMINOPHEN 325 MG TAB PO PRN (22:01)
[2017-01-09] MEDS: LEVOTHYROXINE SODIUM 200 MCG TAB PO SCH (05:24)
[2017-01-09] MEDS: QUEtiapine FUMARATE 25 MG TAB PO SCH ×3 (05:25→21:17)
[2017-01-09 09:27] VITALS: BP 119/89; PULSE 90; RESP 20; TEMP 96.7; O2SAT 100
[2017-01-09] MEDS: DOCUSATE SODIUM 50 MG/SENNA 8.6 MG TAB PO SCH ×2 (10:29→21:17)
[2017-01-09] MEDS: METOPROLOL TARTRATE 25 MG TAB PO SCH (10:30)
[2017-01-09] MEDS: FAMOTIDINE 20 MG TAB PO SCH ×2 (10:30→21:17)
[2017-01-09] MEDS: EUCERIN CREAM 120 GM JAR TOPICAL SCH ×2 (10:43→21:22)
--- NOTE | 2017-01-09 11:47 | HHI.PR ---
Subjective Remarks Patient seen and examined today for follow-up on profound weakness, hypoxia. Patient is lying in bed, resting comfortably. Nursing staff indicates that patient is still using bedpan. I notified them that the patient should be using bedside commode. Discussed with OT, patient is capable of using bedside commode. Made objective here is to patient is stronger, ambulate in order to take care of herself at home. Objective Vitals Vital Signs Date Time Temp Pulse Resp B/P Pulse Ox O2 Delivery O2 Flow Rate FiO2 01/09/17 09:27 96.7 90 20 119/89 100 01/08/17 21:10 94 Nasal Cannula 2.00 01/08/17 20:00 97.9 105 16 113/81 97 01/08/17 20:00 97 Nasal Cannula 2.00 I/O 01/08/17 01/08/17 01/08/17 01/09/17 01/09/17 01/09/17 07:00 15:00 23:00 07:00 15:00 23:00 Intake Total 620 ml 850 ml 0 ml Balance 620 ml 850 ml 0 ml Intake Oral 620 ml 850 ml 0 ml # Voids 3 5 1 # Bowel Movements 2 Objective Remarks GENERAL: Well-developed, morbidly obese, in no acute distress. alert and orientated HEENT: Head is normocephalic without any lesions or masses noted. Facial features are symmetric. Eyes: Extraocular muscles are intact. Conjunctivae were clear. NECK: Trachea midline no deviation. CARDIAC: Regular rhythm, regular rate. S1/S2 are heard. No murmurs gallops or rubs. LUNGS: Clear to auscultation bilaterally. No wheeze, rhonchi or rales. No use of accessory muscles on inspiration or expiration. ABDOMEN: Soft, nontender. Nondistended. Bowel sounds heard in all 4 quadrants. No organomegaly or masses. Negative rebound, negative guarding EXTREMITIES: No edema, pulses are equal bilaterally. No cyanosis or clubbing NEUROLOGY: Mood and affect appear appropriate. Moving all extremities, speech is clear Procedures 09/15/2016 bronchoscopy 09/11/2016 bronchoscopy 09/10/2016 left IJ central venous line 08/28/2016 subclavian 7 [place] triple-lumen catheter left-sided. 08/18/2016 right arterial line 08/18/2016 right IJ central line Urinary Catheter: No Date of Insertion: Nov 21, 2016 Date of Removal: Nov 30, 2016 Vascular Central Line Catheter: No A/P Assessment and Plan Profound weakness, debilitation secondary to prolonged hospitalization Physical therapy 7 days a week Continue occupational therapy Get out of bed 3 times daily at least with meals Patient to use bedside commode Acute on chronic hypercapnic and hypoxemic respiratory failure, probable JOE, OHS, stable S/p tracheostomy. Decannulated 11/28/16, on supplemental O2. Sputum culture with Pseudomonas aeruginosa and Klebsiella ESBL positive Continue to wean off oxygen Continue albuterol as needed Pulmonology following the patient Right lateral malleolus wound, Mild deep tissue injury, right and left buttock Wound care following. Cleanse right lateral malleolus with NS and gauze. Apply Optifoam gentle every 3-5 days. Float heel and ankle off mattress surface by placing pillow underneath calf while in bed. Apply skin prep to deep tissue injuries to bilateral buttocks BID and leave open to air. Acute toxic metabolic encephalopathy/delirium: Resolved Seroquel 25 mg every 8 hours for agitation, continue to titrate down until discontinued per agitation Melatonin 5mg po qHS for insomnia Hypertension: chronic, stable Discontinue metoprolol 12.5 mg daily Dyslipidemia: chronic -Continue pravastatin. Left IJ/subclavian nonocclusive thrombus Continue Coumadin remains therapeutic, 2.9. Pharmacy consult for monitoring. Type 2 Diabetes mellitus, chronic: Continue diabetic diet. Hypothyroidism, chronic: Continue Synthroid 200 mcg daily GI prophylaxis: Pepcid 20 mg twice daily DVT prophylaxis: Coumadin Discharge Planning Discharge per case management. Documentation indicates that social security is pending, no accepting facility at this time Simeon Reyna Jan 09, 2017 11:47
[2017-01-09 13:53] VITALS: O2SAT 94
[2017-01-09 13:59] VITALS: O2SAT 94
[2017-01-09] MEDS: WARFARIN SOD 6 MG TAB PO SCH (16:59)
[2017-01-09 20:00] VITALS: BP 117/76; PULSE 81; RESP 20; TEMP 97.5; O2SAT 95
[2017-01-09] MEDS: PRAVASTATIN SOD 20 MG TAB PO SCH (21:17)
[2017-01-09] MEDS: MELATONIN 5 MG TAB PO SCH (21:17)
[2017-01-09] MEDS: ACETAMINOPHEN 325 MG TAB PO PRN (21:19)
[2017-01-09 21:35] VITALS: O2SAT 93
[2017-01-10] MEDS: QUEtiapine FUMARATE 25 MG TAB PO SCH ×3 (05:13→21:35)
[2017-01-10] MEDS: LEVOTHYROXINE SODIUM 200 MCG TAB PO SCH (05:13)
[2017-01-10 06:56] LABS: INTERNATIONAL NORMALIZED RATIO 3.4 RATIO; PROTHROMBIN TIME - PATIENT 39.2 SEC (9.8-11.6)
[2017-01-10 08:00] VITALS: BP 104/83; PULSE 91; RESP 18; TEMP 97.5; O2SAT 97
[2017-01-10] MEDS: EUCERIN CREAM 120 GM JAR TOPICAL SCH ×2 (09:00→21:00)
[2017-01-10] MEDS: DOCUSATE SODIUM 50 MG/SENNA 8.6 MG TAB PO SCH ×2 (09:00→21:00)
[2017-01-10] MEDS: FAMOTIDINE 20 MG TAB PO SCH ×2 (10:08→21:35)
[2017-01-10 12:50] VITALS: O2SAT 94
--- NOTE | 2017-01-10 14:36 | HHI.PR ---
Subjective Remarks Patient seen and examined today for follow-up on weakness and hypoxia. Patient very happy today that she is going get a shower. Bedside commode is in the room at this time. Patient seen with physical therapy and occupational therapy. Objective Vitals Vital Signs Date Time Temp Pulse Resp B/P Pulse Ox O2 Delivery O2 Flow Rate FiO2 01/10/17 12:50 94 Nasal Cannula 2.00 01/10/17 08:00 Nasal Cannula 2.00 01/10/17 08:00 97.5 91 18 104/83 97 01/09/17 21:35 93 Nasal Cannula 2.00 01/09/17 21:14 Nasal Cannula 2.00 01/09/17 20:00 97.5 81 20 117/76 95 01/09/17 15:47 97 Nasal Cannula 2.00 I/O 01/09/17 01/09/17 01/09/17 01/10/17 01/10/17 01/10/17 07:00 15:00 23:00 07:00 15:00 23:00 Intake Total 0 ml 480 ml Output Total 300 ml Balance 0 ml 180 ml Intake Oral 0 ml 480 ml Output Urine Total 300 ml # Voids 1 3 2 # Bowel Movements 0 Objective Remarks GENERAL: Well-developed, morbidly obese, in no acute distress. alert and orientated HEENT: Head is normocephalic without any lesions or masses noted. Facial features are symmetric. Eyes: Extraocular muscles are intact. Conjunctivae were clear. NECK: Trachea midline no deviation. CARDIAC: Regular rhythm, regular rate. S1/S2 are heard. No murmurs gallops or rubs. LUNGS: Clear to auscultation bilaterally. No wheeze, rhonchi or rales. No use of accessory muscles on inspiration or expiration. ABDOMEN: Soft, nontender. Nondistended. Bowel sounds heard in all 4 quadrants. No organomegaly or masses. Negative rebound, negative guarding EXTREMITIES: No edema, pulses are equal bilaterally. No cyanosis or clubbing NEUROLOGY: Mood and affect appear appropriate. Moving all extremities, speech is clear Procedures 09/15/2016 bronchoscopy 09/11/2016 bronchoscopy 09/10/2016 left IJ central venous line 08/28/2016 subclavian 7 [place] triple-lumen catheter left-sided. 08/18/2016 right arterial line 08/18/2016 right IJ central line Urinary Catheter: No Date of Insertion: Nov 21, 2016 Date of Removal: Nov 30, 2016 Vascular Central Line Catheter: No A/P Assessment and Plan Profound weakness, debilitation secondary to prolonged hospitalization Physical therapy 7 days a week Continue occupational therapy Get out of bed 3 times daily at least with meals Patient to use bedside commode Acute on chronic hypercapnic and hypoxemic respiratory failure, probable JOE, OHS, stable S/p tracheostomy. Decannulated 11/28/16, on supplemental O2. Sputum culture with Pseudomonas aeruginosa and Klebsiella ESBL positive Continue to wean off oxygen Continue albuterol as needed Pulmonology following the patient Right lateral malleolus wound, Mild deep tissue injury, right and left buttock Wound care following. Cleanse right lateral malleolus with NS and gauze. Apply Optifoam gentle every 3-5 days. Float heel and ankle off mattress surface by placing pillow underneath calf while in bed. Apply skin prep to deep tissue injuries to bilateral buttocks BID and leave open to air. Acute toxic metabolic encephalopathy/delirium: Resolved Seroquel 25 mg every 8 hours for agitation, continue to titrate down until discontinued per agitation Melatonin 5mg po qHS for insomnia Hypertension: chronic, remains stable Discontinued metoprolol 12.5 mg daily Dyslipidemia: chronic -Continue pravastatin. Left IJ/subclavian nonocclusive thrombus Continue Coumadin remains therapeutic, 3.4. Pharmacy consult for monitoring. Type 2 Diabetes mellitus, chronic: Continue diabetic diet. Hypothyroidism, chronic: Continue Synthroid 200 mcg daily GI prophylaxis: Pepcid 20 mg twice daily DVT prophylaxis: Coumadin Discharge Planning Discharge per case management. Documentation indicates that social security is pending, no accepting facility at this time Simeon Reyna Jan 10, 2017 14:36
[2017-01-10 20:00] VITALS: BP 107/67; PULSE 98; RESP 20; TEMP 97.8; O2SAT 95
[2017-01-10] MEDS: MELATONIN 5 MG TAB PO SCH (21:35)
[2017-01-10] MEDS: PRAVASTATIN SOD 20 MG TAB PO SCH (21:35)
[2017-01-10] MEDS: ACETAMINOPHEN 325 MG TAB PO PRN (21:37)
[2017-01-10 23:20] VITALS: O2SAT 94
[2017-01-11] MEDS: LEVOTHYROXINE SODIUM 200 MCG TAB PO SCH (05:45)
[2017-01-11] MEDS: QUEtiapine FUMARATE 25 MG TAB PO SCH ×3 (05:45→21:09)
[2017-01-11 06:03] LABS: INTERNATIONAL NORMALIZED RATIO 2.8 RATIO
[2017-01-11 08:00] VITALS: O2SAT 98
[2017-01-11] MEDS: EUCERIN CREAM 120 GM JAR TOPICAL SCH ×2 (09:00→21:00)
[2017-01-11] MEDS: DOCUSATE SODIUM 50 MG/SENNA 8.6 MG TAB PO SCH ×2 (09:00→21:08)
[2017-01-11 09:02] VITALS: BP 106/80; PULSE 95; RESP 19; TEMP 97.6; O2SAT 98
[2017-01-11] MEDS: FAMOTIDINE 20 MG TAB PO SCH ×2 (09:28→21:08)
--- NOTE | 2017-01-11 11:05 | PD.WCN.NOT ---
Wound Consult Description: R lateral malleolus and L heel Communicated with: Dejan Mancia and Yoanna SORENSONN Recommendation: Please discontinue adhesive foam dressing to R lateral malleolus and apply skin prep over non blanchable purple discoloration and intact scab. Please cover with bordered gauze dressing when up with P.T. Please apply skin prep to L heel stage 1 pressure injury before applying hydrocolloid in place. 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 R lateral Malleolus noted area of purple non blanchable intact skin measuring 1.2 cm x1.3cm, indicating deep tissue injury, scab noted in center. Scab in center of deep tissue injury measures 0.4cm x 0.6cm.Applied skin prep over DTI and scab and before [employer] Yoanna applied bordered gauze. L heel is noted with non blanchable erythema measures ~1cm x ~1cm. Patient complains of pain with ambulation when up with therapy. Patient has orthopedic shoes with braces. Heels floated on pillows. Patient does externally rotate feet while in bed, putting pressure on R lateral heel. Spoke with Dejan HELMS regarding multipodus boots and other wound care recommendations.He is agreement with these and will order. Carie Cordoba [facility] Jan 11, 2017 11:04
--- NOTE | 2017-01-11 12:02 | HHI.PR ---
Subjective Remarks Patient seen and examined today for follow-up on profound weakness, hypoxia. Patient is doing much better. She is sitting in a chair when I saw her today working with physical therapy. Nursing staff indicates that she refuses to get out of bed at night will only use bedpan. I counseled the nursing staff that they need to persuade the patient to use bedside commode in order to facilitate her improvement. Discussed with wound care nurse who indicates patient would benefit from Multi-Podus boots. Objective Vitals Vital Signs Date Time Temp Pulse Resp B/P Pulse Ox O2 Delivery O2 Flow Rate FiO2 01/11/17 09:02 97.6 95 19 106/80 98 01/10/17 23:20 94 Nasal Cannula 2.00 01/10/17 23:00 18 01/10/17 20:00 97.8 98 20 107/67 95 01/10/17 20:00 Nasal Cannula 2.00 01/10/17 12:50 94 Nasal Cannula 2.00 I/O 01/10/17 01/10/17 01/10/17 01/11/17 01/11/17 01/11/17 07:00 15:00 23:00 07:00 15:00 23:00 Intake Total 480 ml 600 ml 480 ml Output Total 300 ml 202 ml Balance 180 ml 398 ml 480 ml Intake Oral 480 ml 600 ml 480 ml Output Urine Total 300 ml 200 ml Stool Total 2 ml # Voids 2 4 1 # Bowel Movements 0 0 0 Objective Remarks GENERAL: Well-developed, morbidly obese, in no acute distress. alert and orientated HEENT: Head is normocephalic without any lesions or masses noted. Facial features are symmetric. Eyes: Extraocular muscles are intact. Conjunctivae were clear. NECK: Trachea midline no deviation. CARDIAC: Regular rhythm, regular rate. S1/S2 are heard. No murmurs gallops or rubs. LUNGS: Clear to auscultation bilaterally. No wheeze, rhonchi or rales. No use of accessory muscles on inspiration or expiration. ABDOMEN: Soft, nontender. Nondistended. Bowel sounds heard in all 4 quadrants. No organomegaly or masses. Negative rebound, negative guarding EXTREMITIES: No edema, pulses are equal bilaterally. No cyanosis or clubbing NEUROLOGY: Mood and affect appear appropriate. Moving all extremities, speech is clear Procedures 09/15/2016 bronchoscopy 09/11/2016 bronchoscopy 09/10/2016 left IJ central venous line 08/28/2016 subclavian 7 [place] triple-lumen catheter left-sided. 08/18/2016 right arterial line 08/18/2016 right IJ central line Urinary Catheter: No Date of Insertion: Nov 21, 2016 Date of Removal: Nov 30, 2016 Vascular Central Line Catheter: No A/P Assessment and Plan Profound weakness, debilitation secondary to prolonged hospitalization Physical therapy 7 days a week Continue occupational therapy Get out of bed 3 times daily at least with meals Patient to use bedside commode, avoid bedpan Acute on chronic hypercapnic and hypoxemic respiratory failure, probable JOE, OHS, stable S/p tracheostomy. Decannulated 11/28/16, on supplemental O2. 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 Cleanse right lateral malleolus with NS and gauze. Apply skin prep over non-blanchable purple discoloration. Cover with border gauze dressing Float heel and ankle off mattress surface by placing pillow underneath calf while in bed. Apply skin prep to deep tissue injuries to bilateral buttocks BID and leave open to air. Multi-Podus boots Acute toxic metabolic encephalopathy/delirium: Resolved Seroquel 25 mg every 8 hours for agitation, continue to titrate down until discontinued per agitation Melatonin 5mg po qHS for insomnia Hypertension: chronic, remains stable Discontinued metoprolol 12.5 mg daily Dyslipidemia: chronic -Continue pravastatin. Left IJ/subclavian nonocclusive thrombus Continue Coumadin remains therapeutic, 3.4. Pharmacy consult for monitoring. Type 2 Diabetes mellitus, chronic: Continue diabetic diet. Hypothyroidism, chronic: Continue Synthroid 200 mcg daily GI prophylaxis: Pepcid 20 mg twice daily DVT prophylaxis: Coumadin Discharge Planning Discharge per case management. Documentation indicates that social security is pending, no accepting facility at this time Simeon Reyna Jan 11, 2017 12:02
[2017-01-11] MEDS: WARFARIN SOD 6 MG TAB PO SCH (16:23)
[2017-01-11 20:00] VITALS: BP 103/83; PULSE 88; RESP 18; TEMP 97.8; O2SAT 94
[2017-01-11 20:30] VITALS: O2SAT 95
[2017-01-11] MEDS: MELATONIN 5 MG TAB PO SCH (21:00)
[2017-01-11] MEDS: PRAVASTATIN SOD 20 MG TAB PO SCH (21:08)
[2017-01-11] MEDS: ACETAMINOPHEN 325 MG TAB PO PRN (21:11)
[2017-01-12] MEDS: QUEtiapine FUMARATE 25 MG TAB PO SCH ×2 (06:12→20:48)
[2017-01-12] MEDS: LEVOTHYROXINE SODIUM 200 MCG TAB PO SCH (06:12)
[2017-01-12 08:00] VITALS: BP 107/84; PULSE 90; RESP 18; TEMP 97.5; O2SAT 97
[2017-01-12] MEDS: DOCUSATE SODIUM 50 MG/SENNA 8.6 MG TAB PO SCH ×2 (09:00→20:48)
[2017-01-12] MEDS: EUCERIN CREAM 120 GM JAR TOPICAL SCH ×2 (09:00→20:48)
[2017-01-12] MEDS: FAMOTIDINE 20 MG TAB PO SCH ×2 (10:35→20:47)
--- NOTE | 2017-01-12 11:09 | HHI.PR ---
Subjective Remarks Patient is examined today for profound weakness, hypoxia. Patient is doing better. She is excited that she is able to get up and walk to the door and back. She has been using bedside commode except for at night. She states that she has urinary incontinence that she is unable to hold her urine while waiting to have her shoes put on to use a commode at nighttime. She is still using the bedpan Objective Vitals Vital Signs Date Time Temp Pulse Resp B/P Pulse Ox O2 Delivery O2 Flow Rate FiO2 01/12/17 08:00 Nasal Cannula 2.00 01/12/17 08:00 97.5 90 18 107/84 97 01/11/17 20:30 95 Nasal Cannula 2.00 01/11/17 20:00 97.8 88 18 103/83 94 I/O 01/11/17 01/11/17 01/11/17 01/12/17 01/12/17 01/12/17 06:59 14:59 22:59 06:59 14:59 22:59 Intake Total 480 ml 480 ml 300 ml Balance 480 ml 480 ml 300 ml Intake Oral 480 ml 480 ml 300 ml # Voids 1 2 1 1 # Bowel Movements 0 0 0 Objective Remarks GENERAL: Well-developed, morbidly obese, in no acute distress. alert and orientated HEENT: Head is normocephalic without any lesions or masses noted. Facial features are symmetric. Eyes: Extraocular muscles are intact. Conjunctivae were clear. NECK: Trachea midline no deviation. CARDIAC: Regular rhythm, regular rate. S1/S2 are heard. No murmurs gallops or rubs. LUNGS: Clear to auscultation bilaterally. No wheeze, rhonchi or rales. No use of accessory muscles on inspiration or expiration. ABDOMEN: Soft, nontender. Nondistended. Bowel sounds heard in all 4 quadrants. No organomegaly or masses. Negative rebound, negative guarding EXTREMITIES: No edema, pulses are equal bilaterally. No cyanosis or clubbing NEUROLOGY: Mood and affect appear appropriate. Moving all extremities, speech is clear Procedures 09/15/2016 bronchoscopy 09/11/2016 bronchoscopy 09/10/2016 left IJ central venous line 08/28/2016 subclavian 7 [place] triple-lumen catheter left-sided. 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 Decannulated 11/28/16, on supplemental O2. 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 Cleanse right lateral malleolus with NS and gauze. Apply skin prep over non-blanchable purple discoloration. Cover with border gauze dressing Float heel and ankle off mattress surface by placing pillow underneath calf while in bed. Apply skin prep to deep tissue injuries to bilateral buttocks BID and leave open to air. Multi-Podus boots Acute toxic metabolic encephalopathy/delirium: Resolved Seroquel 25 mg every 12 hours for agitation, continue to titrate down until discontinued per agitation Melatonin 5mg po qHS for insomnia Hypertension: chronic, remains stable No longer on any medication Dyslipidemia: chronic -Continue pravastatin. Check lipid panel quarterly Left IJ/subclavian nonocclusive thrombus Continue Coumadin remains therapeutic, 3.4. Pharmacy consult for monitoring. Type 2 Diabetes mellitus, chronic: Continue diabetic diet. Check hemoglobin A1c quarterly Hypothyroidism, chronic: Continue Synthroid 200 mcg daily Check TSH quarterly GI prophylaxis: Pepcid 20 mg twice daily DVT prophylaxis: Coumadin Discharge Planning Discharge per case management. Documentation indicates that social security is pending, no accepting facility at this time Simeon Reyna Jan 12, 2017 11:09
[2017-01-12] MEDS: WARFARIN SOD 6 MG TAB PO SCH (16:52)
[2017-01-12 20:00] VITALS: BP 139/80; PULSE 86; RESP 16; TEMP 97; O2SAT 96
[2017-01-12 20:30] VITALS: O2SAT 94
[2017-01-12] MEDS: PRAVASTATIN SOD 20 MG TAB PO SCH (20:47)
[2017-01-12] MEDS: MELATONIN 5 MG TAB PO SCH (20:47)
[2017-01-12] MEDS: ACETAMINOPHEN 325 MG TAB PO PRN (20:54)
[2017-01-13] MEDS: LEVOTHYROXINE SODIUM 200 MCG TAB PO SCH (05:36)
[2017-01-13 07:26] LABS: AUTOMATED NEUTROPHIL # 2.7 TH/MM3 (1.8-7.7); BASOPHIL % 0.5 % (0.0-2.0); EOSINOPHIL # 0.4 TH/MM3 (0-0.4); EOSINOPHIL % 5.2 % (0.0-4.0); HEMATOCRIT 37.9 % (35.0-46.0); HEMO FLAGS DIFF FINAL; LYMPHOCYTE # 3.1 TH/MM3 (1.0-4.8); MEAN CORPUSCULAR HEMOGLOBIN 27.4 PG (27.0-34.0); MEAN CORPUSCULAR HGB CONC 33.8 % (32.0-36.0); MONO % 9.2 % (0.0-8.0); NEUT % 39.1 % (16.0-70.0); PLATELET COUNT 320 TH/MM3 (150-450); RED BLOOD COUNT 4.68 MIL/MM3 (4.00-5.30); RED CELL DISTRIBUTION WIDTH 13.2 % (11.6-17.2); WHITE BLOOD COUNT 6.8 TH/MM3 (4.0-11.0)
[2017-01-13 07:33] LABS: CHLORIDE 104 MEQ/L (98-107); POTASSIUM 3.8 MEQ/L (3.5-5.1); SODIUM (NA) 140 MEQ/L (136-145)
[2017-01-13 07:37] LABS: INTERNATIONAL NORMALIZED RATIO 2.4 RATIO; PROTHROMBIN TIME - PATIENT 27.4 SEC (9.8-11.6)
[2017-01-13 07:38] LABS: ANION GAP 6 MEQ/L (5-15); BICARBONATE 29.6 MEQ/L (21.0-32.0); BLOOD UREA NITROGEN 15 MG/DL (7-18); MAGNESIUM 1.9 MG/DL (1.5-2.5)
[2017-01-13 07:41] LABS: ALT (GPT) 48 U/L (10-53); AST (GOT) 30 U/L (15-37); GLOMERULAR FILTRATION RATE 117 ML/MIN (>89)
[2017-01-13 07:43] LABS: TOTAL BILIRUBIN ADULT 0.3 MG/DL (0.2-1.0)
[2017-01-13 07:44] LABS: ALKALINE PHOSPHATASE 130 U/L (45-117)
[2017-01-13 08:30] VITALS: BP 121/78; PULSE 86; RESP 16; TEMP 95.9; O2SAT 96
[2017-01-13 08:37] VITALS: O2SAT 96
[2017-01-13] MEDS: FAMOTIDINE 20 MG TAB PO SCH ×2 (10:00→21:05)
[2017-01-13] MEDS: QUEtiapine FUMARATE 25 MG TAB PO SCH ×2 (10:00→21:05)
[2017-01-13] MEDS: DOCUSATE SODIUM 50 MG/SENNA 8.6 MG TAB PO SCH ×2 (10:00→21:00)
[2017-01-13] MEDS: EUCERIN CREAM 120 GM JAR TOPICAL SCH ×2 (10:01→21:00)
--- NOTE | 2017-01-13 12:00 | HHI.PR ---
Subjective Remarks Patient seen and examined today for follow-up on weakness, hypoxia. Patient sitting in a chair, resting carefully. Denies any new complaints. Patient states that she is getting stronger on a daily basis. Objective Vitals Vital Signs Date Time Temp Pulse Resp B/P Pulse Ox O2 Delivery O2 Flow Rate FiO2 01/13/17 11:37 96 Nasal Cannula 2.00 01/13/17 08:37 96 Nasal Cannula 2.00 01/13/17 08:30 95.9 86 16 121/78 96 01/12/17 20:30 94 Nasal Cannula 2.00 01/12/17 20:00 97.0 86 16 139/80 96 01/12/17 20:00 94 Nasal Cannula 2.00 I/O 01/12/17 01/12/17 01/12/17 01/13/17 01/13/17 01/13/17 06:59 14:59 22:59 06:59 14:59 22:59 Intake Total 300 ml 600 ml Balance 300 ml 600 ml Intake Oral 300 ml 600 ml # Voids 1 2 2 # Bowel Movements 0 0 Result Diagram: 01/13/1718 01/13/1718 Objective Remarks GENERAL: Well-developed, morbidly obese, in no acute distress. alert and orientated HEENT: Head is normocephalic without any lesions or masses noted. Facial features are symmetric. Eyes: Extraocular muscles are intact. Conjunctivae were clear. NECK: Trachea midline no deviation. CARDIAC: Regular rhythm, regular rate. S1/S2 are heard. No murmurs gallops or rubs. LUNGS: Clear to auscultation bilaterally. No wheeze, rhonchi or rales. No use of accessory muscles on inspiration or expiration. ABDOMEN: Soft, nontender. Nondistended. Bowel sounds heard in all 4 quadrants. No organomegaly or masses. Negative rebound, negative guarding EXTREMITIES: No edema, pulses are equal bilaterally. No cyanosis or clubbing NEUROLOGY: Mood and affect appear appropriate. Moving all extremities, speech is clear Procedures 09/15/2016 bronchoscopy 09/11/2016 bronchoscopy 09/10/2016 left IJ central venous line 08/28/2016 subclavian 7 [place]ic triple-lumen catheter left-sided. 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 Decannulated 11/28/16, on supplemental O2. 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 Cleanse right lateral malleolus with NS and gauze. Apply skin prep over non-blanchable purple discoloration. Cover with border gauze dressing Float heel and ankle off mattress surface by placing pillow underneath calf while in bed. Apply skin prep to deep tissue injuries to bilateral buttocks BID and leave open to air. Multi-Podus boots Acute toxic metabolic encephalopathy/delirium: Resolved Seroquel 25 mg every 12 hours for agitation, continue to titrate down until discontinued per agitation Melatonin 5mg po qHS for insomnia Hypertension: chronic, remains stable No longer on any medication Dyslipidemia: chronic -Continue pravastatin. Check lipid panel quarterly Left IJ/subclavian nonocclusive thrombus Continue Coumadin remains therapeutic, 2.4. Pharmacy consult for monitoring. Type 2 Diabetes mellitus, chronic: Continue diabetic diet. Check hemoglobin A1c quarterly Hypothyroidism, chronic: Continue Synthroid 200 mcg daily, change to Synthroid 175 g daily TSH 0.044, down from 1.37 GI prophylaxis: Pepcid 20 mg twice daily DVT prophylaxis: Coumadin Discharge Planning Discharge per case management. Documentation indicates that social security is pending, no accepting facility at this time Simeon Reyna Jan 13, 2017 12:00
[2017-01-13 14:10] LABS: HEMOGLOBIN A1a 0.6 %; HEMOGLOBIN A1b 1.9 %; HEMOGLOBIN Ao 85.3 %; HEMOGLOBIN P3 5.3 %
[2017-01-13] MEDS: WARFARIN SOD 6 MG TAB PO SCH (15:57)
[2017-01-13 20:00] VITALS: BP 127/98; PULSE 95; RESP 24; TEMP 98.1; O2SAT 95
[2017-01-13] MEDS: PRAVASTATIN SOD 20 MG TAB PO SCH (21:05)
[2017-01-13] MEDS: MELATONIN 5 MG TAB PO SCH (21:05)
[2017-01-13] MEDS: ACETAMINOPHEN 325 MG TAB PO PRN (21:08)
[2017-01-14] MEDS: LEVOTHYROXINE SODIUM 100 MCG TAB PO SCH (05:59)
[2017-01-14] MEDS: LEVOTHYROXINE SODIUM 75 MCG TAB PO SCH (05:59)
[2017-01-14 06:33] LABS: INTERNATIONAL NORMALIZED RATIO 2.7 RATIO; PROTHROMBIN TIME - PATIENT 30.8 SEC (9.8-11.6)
[2017-01-14] MEDS: FAMOTIDINE 20 MG TAB PO SCH ×2 (07:16→20:59)
[2017-01-14] MEDS: DOCUSATE SODIUM 50 MG/SENNA 8.6 MG TAB PO SCH ×2 (07:16→20:59)
[2017-01-14] MEDS: QUEtiapine FUMARATE 25 MG TAB PO SCH ×2 (07:16→20:59)
[2017-01-14] MEDS: EUCERIN CREAM 120 GM JAR TOPICAL SCH ×2 (07:17→21:06)
--- NOTE | 2017-01-14 07:40 | HHI.PR ---
Subjective Remarks Patient seen and examined today for follow-up on weakness and hypoxia. Patient lying in bed today. He denies any new complaints. Objective Vitals Vital Signs Date Time Temp Pulse Resp B/P Pulse Ox O2 Delivery O2 Flow Rate FiO2 01/14/17 00:40 Nasal Cannula 2.00 01/13/17 22:15 18 01/13/17 20:00 Nasal Cannula 2.00 01/13/17 20:00 98.1 95 24 127/98 95 01/13/17 11:37 96 Nasal Cannula 2.00 01/13/17 08:37 96 Nasal Cannula 2.00 01/13/17 08:30 95.9 86 16 121/78 96 I/O 01/13/17 01/13/17 01/13/17 01/14/17 01/14/17 01/14/17 07:00 15:00 23:00 07:00 15:00 23:00 Intake Total 480 ml 480 ml Output Total 300 ml Balance 480 ml 180 ml Intake Oral 480 ml 480 ml Output Urine Total 300 ml # Voids 2 4 # Bowel Movements 0 2 0 Result Diagram: 01/13/17 0718 01/13/1718 Objective Remarks GENERAL: Well-developed, morbidly obese, in no acute distress. alert and orientated HEENT: Head is normocephalic without any lesions or masses noted. Facial features are symmetric. Eyes: Extraocular muscles are intact. Conjunctivae were clear. NECK: Trachea midline no deviation. CARDIAC: Regular rhythm, regular rate. S1/S2 are heard. No murmurs gallops or rubs. LUNGS: Clear to auscultation bilaterally. No wheeze, rhonchi or rales. No use of accessory muscles on inspiration or expiration. ABDOMEN: Soft, nontender. Nondistended. Bowel sounds heard in all 4 quadrants. No organomegaly or masses. Negative rebound, negative guarding EXTREMITIES: No edema, pulses are equal bilaterally. No cyanosis or clubbing NEUROLOGY: Mood and affect appear appropriate. Moving all extremities, speech is clear Procedures 09/15/2016 bronchoscopy 09/11/2016 bronchoscopy 09/10/2016 left IJ central venous line 08/28/2016 subclavian 7 [place] triple-lumen catheter left-sided. 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 Decannulated 11/28/16, on supplemental O2. 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 Cleanse right lateral malleolus with NS and gauze. Apply skin prep over non-blanchable purple discoloration. Cover with border gauze dressing Float heel and ankle off mattress surface by placing pillow underneath calf while in bed. Apply skin prep to deep tissue injuries to bilateral buttocks BID and leave open to air. Multi-Podus boots Acute toxic metabolic encephalopathy/delirium: Resolved Seroquel 25 mg daily for agitation, continue to titrate down until discontinued per agitation Melatonin 5mg po qHS for insomnia Hypertension: chronic, remains stable No longer on any medication Dyslipidemia: chronic -Continue pravastatin. Check lipid panel quarterly Left IJ/subclavian nonocclusive thrombus Continue Coumadin remains therapeutic, 2.7. Pharmacy consult for monitoring. Type 2 Diabetes mellitus, chronic: Continue diabetic diet. Check hemoglobin A1c quarterly Hypothyroidism, chronic: Continue Synthroid 200 mcg daily, change to Synthroid 175 g daily TSH 0.044, down from 1.37 GI prophylaxis: Pepcid 20 mg twice daily DVT prophylaxis: Coumadin Discharge Planning Discharge per case management. Documentation indicates that social security is pending, no accepting facility at this time Simeon Reyna Jan 14, 2017 07:40
[2017-01-14 07:54] VITALS: BP 106/85; PULSE 93; RESP 16; TEMP 97.4; O2SAT 97
[2017-01-14 11:00] VITALS: O2SAT 97
[2017-01-14] MEDS: WARFARIN SOD 6 MG TAB PO SCH (14:21)
[2017-01-14 15:59] VITALS: BP 106/85; PULSE 93; RESP 16; TEMP 97.4; O2SAT 97
[2017-01-14 20:00] VITALS: BP 115/83; PULSE 87; RESP 20; TEMP 98.1; O2SAT 92
[2017-01-14 20:25] VITALS: O2SAT 94
[2017-01-14] MEDS: MELATONIN 5 MG TAB PO SCH (20:58)
[2017-01-14] MEDS: PRAVASTATIN SOD 20 MG TAB PO SCH (20:58)
[2017-01-14] MEDS: ACETAMINOPHEN 325 MG TAB PO PRN (21:03)
[2017-01-15] MEDS: LEVOTHYROXINE SODIUM 100 MCG TAB PO SCH (06:03)
[2017-01-15] MEDS: LEVOTHYROXINE SODIUM 75 MCG TAB PO SCH (06:03)
[2017-01-15 08:00] VITALS: BP 117/62; PULSE 98; RESP 16; TEMP 96.7; O2SAT 93; O2SAT 94
[2017-01-15] MEDS: DOCUSATE SODIUM 50 MG/SENNA 8.6 MG TAB PO SCH ×2 (09:20→20:16)
[2017-01-15] MEDS: FAMOTIDINE 20 MG TAB PO SCH ×2 (09:25→20:16)
--- NOTE | 2017-01-15 11:01 | HHI.PR ---
Subjective Remarks Patient seen and examined today for follow-up on weakness and hypoxia. Patient is lying in bed, she denies any new complaints. Discussed with the patient discharge planning when she is able to ambulate on her own and cleared by physical therapy. Objective Vitals Vital Signs Date Time Temp Pulse Resp B/P (MAP) Pulse Ox O2 Delivery O2 Flow Rate FiO2 01/14/17 20:25 94 Nasal Cannula 2.00 01/14/17 20:00 98.1 87 20 115/83 (94) 92 01/14/17 20:00 92 Room Air 01/14/17 15:59 97 Nasal Cannula 2.00 01/14/17 15:59 97.4 93 16 106/85 (92) 97 01/14/17 11:00 97 Nasal Cannula 2.00 I/O 01/14/17 01/14/17 01/14/17 01/15/17 01/15/17 01/15/17 07:00 15:00 23:00 07:00 15:00 23:00 Intake Total 480 ml 240 ml Output Total 300 ml 0 ml 350 ml Balance 180 ml 240 ml -350 ml Intake Oral 480 ml 240 ml Output Urine Total 300 ml 0 ml 350 ml # Voids 3 1 # Bowel Movements 0 1 0 Result Diagram: 01/13/1771701/13/1718 Objective Remarks GENERAL: Well-developed, morbidly obese, in no acute distress. alert and orientated HEENT: Head is normocephalic without any lesions or masses noted. Facial features are symmetric. Eyes: Extraocular muscles are intact. Conjunctivae were clear. NECK: Trachea midline no deviation. CARDIAC: Regular rhythm, regular rate. S1/S2 are heard. No murmurs gallops or rubs. LUNGS: Clear to auscultation bilaterally. No wheeze, rhonchi or rales. No use of accessory muscles on inspiration or expiration. ABDOMEN: Soft, nontender. Nondistended. Bowel sounds heard in all 4 quadrants. No organomegaly or masses. Negative rebound, negative guarding EXTREMITIES: No edema, pulses are equal bilaterally. No cyanosis or clubbing NEUROLOGY: Mood and affect appear appropriate. Moving all extremities, speech is clear Procedures 09/15/2016 bronchoscopy 09/11/2016 bronchoscopy 09/10/2016 left IJ central venous line 08/28/2016 subclavian 7 [place]i triple-lumen catheter left-sided. 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 Decannulated 11/28/16, on supplemental O2. 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 Cleanse right lateral malleolus with NS and gauze. Apply skin prep over non-blanchable purple discoloration. Cover with border gauze dressing Float heel and ankle off mattress surface by placing pillow underneath calf while in bed. Apply skin prep to deep tissue injuries to bilateral buttocks BID and leave open to air. Multi-Podus boots Acute toxic metabolic encephalopathy/delirium: Resolved Seroquel 25 mg daily for agitation, continue to titrate down until discontinued per agitation Melatonin 5mg po qHS for insomnia Hypertension: chronic, remains stable No longer on any medication Dyslipidemia: chronic -Continue pravastatin. Awaiting lipid panel , check quarterly Left IJ/subclavian nonocclusive thrombus Continue Coumadin remains therapeutic, 2.7. Pharmacy consult for monitoring. Type 2 Diabetes mellitus, chronic: Continue diabetic diet. Hemoglobin A1c 5.3 Hypothyroidism, chronic: Continue Synthroid 175 g daily TSH 0.044, down from 1.37, continue monitor and adjust medications accordingly GI prophylaxis: Pepcid 20 mg twice daily DVT prophylaxis: Coumadin Discharge Planning Discharge per case management. Documentation indicates that social security is pending, no accepting facility at this time Simeon Reyna Jan 15, 2017 11:01
[2017-01-15 13:05] LABS: HDL CHOLESTEROL 37.5 MG/DL (40.0-60.0); LDL CHOLESTEROL 83 MG/DL (0-99)
[2017-01-15] MEDS: WARFARIN SOD 6 MG TAB PO SCH (15:41)
[2017-01-15 20:00] VITALS: BP 127/63; PULSE 94; RESP 18; TEMP 97.4; O2SAT 90
[2017-01-15] MEDS: PRAVASTATIN SOD 20 MG TAB PO SCH (20:16)
[2017-01-15] MEDS: QUEtiapine FUMARATE 25 MG TAB PO SCH (20:16)
[2017-01-15] MEDS: ACETAMINOPHEN 325 MG TAB PO PRN (20:16)
[2017-01-15] MEDS: MELATONIN 5 MG TAB PO SCH (20:16)
[2017-01-15] MEDS: EUCERIN CREAM 120 GM JAR TOPICAL SCH (20:17)
[2017-01-15 21:49] VITALS: O2SAT 98
[2017-01-16] MEDS: LEVOTHYROXINE SODIUM 75 MCG TAB PO SCH (06:14)
[2017-01-16] MEDS: LEVOTHYROXINE SODIUM 100 MCG TAB PO SCH (06:14)
--- NOTE | 2017-01-16 08:04 | PD.WCN.NOT ---
Wound Consult Description: R lateral malleolus and L heel Communicated with: VINCENT Hobbs [facility] 5th floor, Ronda HELMS Recommendation: Please discontinue adhesive foam dressing to R lateral malleolus and apply skin prep over non blanchable purple discoloration and intact scab. Please cover with bordered gauze dressing when up with P.T. Please apply skin prep to L heel stage 1 pressure injury before applying hydrocolloid in place. Please change dressing as needed Additional Information: Patient seen on [facility] 5th floor for follow up of Resolved stage 4 R lateral Malleolus with surrounding deep tissue injury.Removed foam dressing and rolled gauze in place to reveal intact scab to R lateral Malleolus with resolving surrounding Deep tissue injury. Area measures 1cm x 1cm. Cleansed R lateral Malleolus with normal saline and pat dry. Applied skin prep before applying bordered gauze dressing in place. Removed rolled gauze and foam dressing in place to L heel to reveal resolving non blanchable area of erythema, that measures ~1cm x ~1.5cm. Applied hydrocolloid dressing in place.Bilateral heels floated off the bed Recommended previously to discontinue adhesive foam dressing and also obtain multipodus boots. No Multipodus boots seen on the room and patient had foam dressing in place. Will speak with PA regarding recommendations Carie Cordoba [facility] Jan 16, 2017 08:04
[2017-01-16 09:00] VITALS: O2SAT 94
[2017-01-16] MEDS: DOCUSATE SODIUM 50 MG/SENNA 8.6 MG TAB PO SCH ×2 (09:00→20:07)
[2017-01-16] MEDS: EUCERIN CREAM 120 GM JAR TOPICAL SCH ×2 (09:00→20:08)
[2017-01-16] MEDS: FAMOTIDINE 20 MG TAB PO SCH ×2 (09:04→20:07)
[2017-01-16 09:21] VITALS: BP 122/86; PULSE 95; RESP 16; TEMP 98; O2SAT 97
--- NOTE | 2017-01-16 10:12 | HHI.PR ---
Subjective Remarks Follow-up for respiratory failure. Patient complains of bruising to the tops of her feet from the post-op shoes. Patient admits to getting out of bed. Objective Vitals Vital Signs Date Time Temp Pulse Resp B/P (MAP) Pulse Ox O2 Delivery O2 Flow Rate FiO2 01/16/17 09:21 98.0 95 16 122/86 (98) 97 01/16/17 09:00 94 Nasal Cannula 2.00 01/15/17 21:49 98 Nasal Cannula 2.00 01/15/17 20:00 97.4 94 18 127/63 (84) 90 01/15/17 20:00 98 Nasal Cannula 2.00 I/O 01/15/17 01/15/17 01/15/17 01/16/17 01/16/17 01/16/17 07:00 15:00 23:00 07:00 15:00 23:00 Intake Total 480 ml 240 ml Output Total 350 ml 200 ml Balance -350 ml 280 ml 240 ml Intake Oral 480 ml 240 ml Output Urine Total 350 ml 200 ml # Voids 1 1 # Bowel Movements 0 0 Result Diagram: 01/13/1718 01/13/1718 Objective Remarks GENERAL: Morbidly obese pleasant female in no apparent distress. SKIN: No ecchymosis to the feet. CARDIOVASCULAR: Regular rate and rhythm. RESPIRATORY: No accessory muscle use. CTAB. GASTROINTESTINAL: Abdomen soft, non-tender, non-distended. MUSCULOSKELETAL: 1+ DP pulses bilaterally. Tender over the dorsal distal feet. NEUROLOGICAL: Awake and alert. Normal speech. PSYCHIATRIC: Appropriate mood and affect. Procedures 09/15/2016 bronchoscopy 09/11/2016 bronchoscopy 09/10/2016 left IJ central venous line 08/28/2016 subclavian 7 [place]ian triple-lumen catheter left-sided. 08/18/2016 right arterial line 08/18/2016 right IJ central line Urinary Catheter: No Date of Insertion: Nov 21, 2016 Date of Removal: Nov 30, 2016 Vascular Central Line Catheter: No A/P Assessment and Plan 56-year-old female admitted with respiratory failure and pneumonia, now with chronic respiratory failure. 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 Decannulated 11/28/16, on supplemental O2. -Sputum culture with Pseudomonas aeruginosa and Klebsiella ESBL positive -Chest x-ray 12/23 with atelectasis at the bases. -Pulmonology, Dr. Beck following. Advises IS q4h, Ventolin 2 puffs qid prn, and to cleanse trach wound twice weekly. -Patient has not been using CPAP although did use it at home, but states she was claustrophobic with it. Patient would need CPAP at night, but she states she sleeps in elevated position. -Again on 2L of oxygen via nasal cannula; need to wean as tolerated. Debilitation: Requires assistance for ADLs. Improving. -PT and OT following. OT is addressing L hand issues. I have asked physical therapist to apply padding under straps of post-op shoes due to patient discomfort. -OOB with assistance. Acute toxic metabolic encephalopathy/delirium: Resolved -Seroquel 75 mg every 8 hours for agitation -Melatonin 5mg po qHS for insomnia Hypertension, chronic: Continue Lopressor. Dyslipidemia: chronic -Continue pravastatin. Acute kidney injury: Resolved. -S/p hemodialysis -Nephrology signed off. 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 Pharmacy consult for monitoring. -Continue to follow INR. Type 2 Diabetes mellitus, chronic: Stable. Hemoglobin A1c good at 5.9 although this was in 2005. Currently on calorie restricted diet as advised by cytopathology technologist. Discussed with attending, no need to change to diabetic diet also. Increased diet per patient request to 1500 kcal to give patient more food options. Right lateral malleolus wound Mild deep tissue injury, right and left buttock -Wound care following. Cover ankle wound with bordered gauze dressing when up with PT and apply skin prep to L heel stage 1 pressure injury before applying hydrocolloid. Change dressing as needed. Nurse to obtain multipodus boots. -Apply skin prep to deep tissue injuries to bilateral buttocks BID and leave open to air. Hypothyroidism, chronic: -Continue Synthroid 200 mcg daily GI prophylaxis: Protonix 40mg Q12 DVT prophylaxis: Coumadin Discharge Planning 01/16: Per [facility] addressing financials to possibly accept patient. Kalyani Taveras Jan 16, 2017 10:12
[2017-01-16] MEDS: WARFARIN SOD 6 MG TAB PO SCH (17:04)
[2017-01-16 20:00] VITALS: BP 113/82; PULSE 89; RESP 17; TEMP 97.9; O2SAT 94
[2017-01-16] MEDS: MELATONIN 5 MG TAB PO SCH (20:07)
[2017-01-16] MEDS: PRAVASTATIN SOD 20 MG TAB PO SCH (20:07)
[2017-01-16] MEDS: QUEtiapine FUMARATE 25 MG TAB PO SCH (20:07)
[2017-01-16] MEDS: ACETAMINOPHEN 325 MG TAB PO PRN (20:07)
[2017-01-16 20:15] VITALS: O2SAT 97
[2017-01-17] MEDS: LEVOTHYROXINE SODIUM 100 MCG TAB PO SCH (05:49)
[2017-01-17] MEDS: LEVOTHYROXINE SODIUM 75 MCG TAB PO SCH (05:49)
[2017-01-17 08:00] VITALS: O2SAT 96
[2017-01-17] MEDS: DOCUSATE SODIUM 50 MG/SENNA 8.6 MG TAB PO SCH ×2 (09:00→20:32)
[2017-01-17] MEDS: EUCERIN CREAM 120 GM JAR TOPICAL SCH ×2 (09:00→20:30)
[2017-01-17 09:16] LABS: PROTHROMBIN TIME - PATIENT 34.8 SEC (9.8-11.6)
[2017-01-17] MEDS: FAMOTIDINE 20 MG TAB PO SCH ×2 (09:40→20:29)
--- NOTE | 2017-01-17 12:20 | HHI.PR ---
Subjective Remarks Follow-up for respiratory failure. No acute complaints. Objective Vitals Vital Signs Date Time Temp Pulse Resp B/P (MAP) Pulse Ox O2 Delivery O2 Flow Rate FiO2 01/17/17 08:00 96 Nasal Cannula 2.00 01/16/17 20:15 97 Nasal Cannula 2.00 01/16/17 20:00 97.9 89 17 113/82 (92) 94 01/16/17 20:00 94 Nasal Cannula 2.00 I/O 01/16/17 01/16/17 01/16/17 01/17/17 01/17/17 01/17/17 06:59 14:59 22:59 06:59 14:59 22:59 Intake Total 240 ml 2080 ml 480 ml Output Total 250 ml 550 ml Balance 240 ml 1830 ml -70 ml Intake Oral 240 ml 2080 ml 480 ml Output Urine Total 250 ml 550 ml Stool Total 0 ml # Voids 1 6 # Bowel Movements 0 6 0 Result Diagram: 01/13/1718 01/13/1718 Objective Remarks GENERAL: Morbidly obese pleasant female in no apparent distress. CARDIOVASCULAR: Regular rate and rhythm. RESPIRATORY: No accessory muscle use. CTAB. GASTROINTESTINAL: Abdomen soft, non-tender, non-distended. MUSCULOSKELETAL: Wearing post-op shoes with gauze padding under straps on both feet. NEUROLOGICAL: Awake and alert. Normal speech. PSYCHIATRIC: Appropriate mood and affect. Procedures 09/15/2016 bronchoscopy 09/11/2016 bronchoscopy 09/10/2016 left IJ central venous line 08/28/2016 subclavian 7 [place] triple-lumen catheter left-sided. 08/18/2016 right arterial line 08/18/2016 right IJ central line Urinary Catheter: No Date of Insertion: Nov 21, 2016 Date of Removal: Nov 30, 2016 Vascular Central Line Catheter: No A/P Assessment and Plan 56-year-old female admitted with respiratory failure and pneumonia, now with chronic respiratory failure. 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 Decannulated 11/28/16, on supplemental O2. -Sputum culture with Pseudomonas aeruginosa and Klebsiella ESBL positive -Chest x-ray 12/23 with atelectasis at the bases. -Pulmonology, Dr. Beck following. Advises IS q4h, Ventolin 2 puffs qid prn, and to cleanse trach wound twice weekly. -Patient has not been using CPAP although did use it at home, but states she was claustrophobic with it. Patient would need CPAP at night, but she states she sleeps in elevated position. -Again on 2L of oxygen via nasal cannula; need to wean as tolerated. Debilitation: Requires assistance for ADLs. Improving. -PT and OT following. OT is addressing L hand issues. I have asked physical therapist to apply padding under straps of post-op shoes due to patient discomfort. -OOB with assistance. Acute toxic metabolic encephalopathy/delirium: Resolved -Seroquel 75 mg every 8 hours for agitation -Melatonin 5mg po qHS for insomnia Hypertension, chronic: Stable -Continue Lopressor. Dyslipidemia: chronic -Continue pravastatin. Acute kidney injury: Resolved. -S/p hemodialysis -Nephrology signed off. 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 Pharmacy consult for monitoring. -Continue to follow INR. Type 2 Diabetes mellitus, chronic: Stable. Hemoglobin A1c good at 5.9 although this was in 2005. Currently on calorie restricted diet as advised by cofounder. Discussed with attending, no need to change to diabetic diet also. Increased diet per patient request to 1500 kcal to give patient more food options. Right lateral malleolus wound Mild deep tissue injury, right and left buttock -Wound care following. Cover ankle wound with bordered gauze dressing when up with PT and apply skin prep to L heel stage 1 pressure injury before applying hydrocolloid. Change dressing as needed. Nurse to obtain multipodus boots. -Apply skin prep to deep tissue injuries to bilateral buttocks BID and leave open to air. Hypothyroidism, chronic: -Continue Synthroid 200 mcg daily GI prophylaxis: Protonix 40mg Q12 DVT prophylaxis: Coumadin Discharge Planning 01/16: Per [facility] addressing financials to possibly accept patient. Kalyani Taveras Jan 17, 2017 12:20
[2017-01-17 12:44] VITALS: BP 120/75; PULSE 97; RESP 20; TEMP 97.9; O2SAT 96
[2017-01-17] MEDS: WARFARIN SOD 6 MG TAB PO SCH (16:07)
[2017-01-17 20:00] VITALS: BP 133/80; PULSE 89; RESP 20; TEMP 96.4; O2SAT 93
[2017-01-17] MEDS: MELATONIN 5 MG TAB PO SCH (20:29)
[2017-01-17] MEDS: PRAVASTATIN SOD 20 MG TAB PO SCH (20:29)
[2017-01-17] MEDS: QUEtiapine FUMARATE 25 MG TAB PO SCH (20:29)
[2017-01-17] MEDS: ACETAMINOPHEN 325 MG TAB PO PRN (20:38)
[2017-01-18] MEDS: LEVOTHYROXINE SODIUM 100 MCG TAB PO SCH (05:31)
[2017-01-18] MEDS: LEVOTHYROXINE SODIUM 75 MCG TAB PO SCH (05:31)
[2017-01-18 06:50] LABS: INTERNATIONAL NORMALIZED RATIO 3.1 RATIO; PROTHROMBIN TIME - PATIENT 36.4 SEC (9.8-11.6)
[2017-01-18] MEDS: WARFARIN SOD 6 MG TAB PO SCH (08:01)
[2017-01-18 08:11] VITALS: BP 100/64; PULSE 90; RESP 17; TEMP 96.2; O2SAT 95
[2017-01-18 08:58] VITALS: O2SAT 95
[2017-01-18] MEDS: DOCUSATE SODIUM 50 MG/SENNA 8.6 MG TAB PO SCH ×2 (09:31→21:00)
[2017-01-18] MEDS: FAMOTIDINE 20 MG TAB PO SCH ×2 (09:31→21:08)
[2017-01-18] MEDS: EUCERIN CREAM 120 GM JAR TOPICAL SCH ×2 (09:31→21:00)
--- NOTE | 2017-01-18 13:25 | HHI.PR ---
Subjective Remarks Follow-up for respiratory failure. Patient has no acute issues. States she wants to go home. Objective Vitals Vital Signs Date Time Temp Pulse Resp B/P (MAP) Pulse Ox O2 Delivery O2 Flow Rate FiO2 01/18/17 09:06 96 Nasal Cannula 2.00 01/18/17 08:58 95 Nasal Cannula 2.00 01/18/17 08:11 96.2 90 17 100/64 (76) 95 01/17/17 23:26 Nasal Cannula 2.00 01/17/17 21:38 16 01/17/17 20:00 94 Nasal Cannula 2.00 01/17/17 20:00 96.4 89 20 133/80 (97) 93 I/O 01/17/17 01/17/17 01/17/17 01/18/17 01/18/17 01/18/17 07:00 15:00 23:00 07:00 15:00 23:00 Intake Total 480 ml 480 ml 240 ml Output Total 550 ml Balance -70 ml 480 ml 240 ml Intake Oral 480 ml 480 ml 240 ml Output Urine Total 550 ml # Voids 0 2 # Bowel Movements 0 0 1 Objective Remarks GENERAL: Morbidly obese pleasant female in no apparent distress. CARDIOVASCULAR: Regular rate and rhythm. RESPIRATORY: No accessory muscle use. CTAB. GASTROINTESTINAL: Abdomen soft, non-tender, non-distended. MUSCULOSKELETAL: Wearing post-op shoes. NEUROLOGICAL: Awake and alert. Normal speech. PSYCHIATRIC: Appropriate mood and affect. Procedures 09/15/2016 bronchoscopy 09/11/2016 bronchoscopy 09/10/2016 left IJ central venous line 08/28/2016 subclavian 7 [place] triple-lumen catheter left-sided. 08/18/2016 right arterial line 08/18/2016 right IJ central line Urinary Catheter: No Date of Insertion: Nov 21, 2016 Date of Removal: Nov 30, 2016 Vascular Central Line Catheter: No A/P Assessment and Plan 56-year-old female admitted with respiratory failure and pneumonia, now with chronic respiratory failure. 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 Decannulated 11/28/16, on supplemental O2. -Sputum culture with Pseudomonas aeruginosa and Klebsiella ESBL positive -Chest x-ray 12/23 with atelectasis at the bases. -Pulmonology, Dr. Beck following. Advises IS q4h, Ventolin 2 puffs qid prn, and to cleanse trach wound twice weekly. -Patient has not been using CPAP although did use it at home, but states she was claustrophobic with it. Patient would need CPAP at night, but she states she sleeps in elevated position. -Again on 2L of oxygen via nasal cannula; need to wean as tolerated. Debilitation: Requires assistance for ADLs. Improving. -PT and OT following. OT is addressing L hand issues. I have asked physical therapist to apply padding under straps of post-op shoes due to patient discomfort. -OOB with assistance. Acute toxic metabolic encephalopathy/delirium: Resolved -Seroquel 75 mg every 8 hours for agitation -Melatonin 5mg po qHS for insomnia Hypertension, chronic: Stable -Continue Lopressor. Dyslipidemia: chronic -Continue pravastatin. Acute kidney injury: Resolved. -S/p hemodialysis -Nephrology signed off. 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 Pharmacy consult for monitoring. -Continue to follow INR. Type 2 Diabetes mellitus, chronic: Stable. Hemoglobin A1c good at 5.9 although this was in 2005. Currently on calorie restricted diet as advised by clarifying plant operator. Discussed with attending, no need to change to diabetic diet also. Increased diet per patient request to 1500 kcal to give patient more food options. Right lateral malleolus wound Mild deep tissue injury, right and left buttock -Wound care following. Cover ankle wound with bordered gauze dressing when up with PT and apply skin prep to L heel stage 1 pressure injury before applying hydrocolloid. Change dressing as needed. Nurse to obtain multipodus boots. -Apply skin prep to deep tissue injuries to bilateral buttocks BID and leave open to air. Hypothyroidism, chronic: -Continue Synthroid 200 mcg daily GI prophylaxis: Protonix 40mg Q12 DVT prophylaxis: Coumadin Discharge Planning 01/16: Per [facility] addressing financials to possibly accept patient. Kalyani Taveras Jan 18, 2017 13:25
[2017-01-18 20:00] VITALS: BP 107/71; PULSE 83; RESP 20; TEMP 98.4; O2SAT 93
[2017-01-18] MEDS: MELATONIN 5 MG TAB PO SCH (21:08)
[2017-01-18] MEDS: QUEtiapine FUMARATE 25 MG TAB PO SCH (21:08)
[2017-01-18] MEDS: PRAVASTATIN SOD 20 MG TAB PO SCH (21:08)
[2017-01-18] MEDS: ACETAMINOPHEN 325 MG TAB PO PRN (21:11)
[2017-01-19] MEDS: LEVOTHYROXINE SODIUM 100 MCG TAB PO SCH (05:02)
[2017-01-19] MEDS: LEVOTHYROXINE SODIUM 75 MCG TAB PO SCH (05:02)
[2017-01-19] MEDS: EUCERIN CREAM 120 GM JAR TOPICAL SCH ×2 (07:45→21:00)
[2017-01-19] MEDS: DOCUSATE SODIUM 50 MG/SENNA 8.6 MG TAB PO SCH ×2 (07:46→21:00)
[2017-01-19] MEDS: FAMOTIDINE 20 MG TAB PO SCH ×2 (07:46→21:53)
[2017-01-19 08:00] VITALS: BP 106/95; PULSE 101; RESP 20; TEMP 96.8; O2SAT 95
[2017-01-19 08:58] LABS: INTERNATIONAL NORMALIZED RATIO 2.5 RATIO
--- NOTE | 2017-01-19 09:49 | HHI.PR ---
Subjective Remarks Follow-up for respiratory failure. No acute complaints. Objective Vitals Vital Signs Date Time Temp Pulse Resp B/P (MAP) Pulse Ox O2 Delivery O2 Flow Rate FiO2 01/19/17 08:00 96.8 101 20 106/95 (99) 95 01/19/17 00:06 Nasal Cannula 2.00 01/18/17 22:11 16 01/18/17 20:00 96 Nasal Cannula 2.00 01/18/17 20:00 98.4 83 20 107/71 (83) 93 I/O 01/18/17 01/18/17 01/18/17 01/19/17 01/19/17 01/19/17 07:00 15:00 23:00 07:00 15:00 23:00 Intake Total 240 ml 1470 ml 240 ml Output Total 300 ml 250 ml Balance 240 ml 1170 ml -10 ml Intake Oral 240 ml 1470 ml 240 ml Output Urine Total 300 ml 250 ml # Voids 2 5 1 # Bowel Movements 1 1 0 Objective Remarks GENERAL: Morbidly obese pleasant female in no apparent distress sitting in recliner. CARDIOVASCULAR: Regular rate and rhythm. RESPIRATORY: No accessory muscle use. CTAB. On 2L NC. GASTROINTESTINAL: Abdomen soft, non-tender, non-distended. NEUROLOGICAL: Awake and alert. Normal speech. PSYCHIATRIC: Appropriate mood and affect. Procedures 09/15/2016 bronchoscopy 09/11/2016 bronchoscopy 09/10/2016 left IJ central venous line 08/28/2016 subclavian 7 [place] triple-lumen catheter left-sided. 08/18/2016 right arterial line 08/18/2016 right IJ central line Urinary Catheter: No Date of Insertion: Nov 21, 2016 Date of Removal: Nov 30, 2016 Vascular Central Line Catheter: No A/P Assessment and Plan 56-year-old female admitted with respiratory failure and pneumonia, now with chronic respiratory failure. 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 Decannulated 11/28/16, on supplemental O2. -Sputum culture with Pseudomonas aeruginosa and Klebsiella ESBL positive -Chest x-ray 12/23 with atelectasis at the bases. -Pulmonology, Dr. Beck following. Advises IS q4h, Ventolin 2 puffs qid prn, and to cleanse trach wound twice weekly. -Patient has not been using CPAP although did use it at home, but states she was claustrophobic with it. Patient would need CPAP at night, but she states she sleeps in elevated position. -Again on 2L of oxygen via nasal cannula; need to wean as tolerated. Debilitation: Requires assistance for ADLs. Improving. -PT and OT following. OT is addressing L hand issues. I have asked physical therapist to apply padding under straps of post-op shoes due to patient discomfort. -OOB with assistance. Acute toxic metabolic encephalopathy/delirium: Resolved -Seroquel 75 mg every 8 hours for agitation -Melatonin 5mg po qHS for insomnia Hypertension, chronic: Stable -Continue Lopressor. Dyslipidemia: chronic -Continue pravastatin. Acute kidney injury: Resolved. -S/p hemodialysis -Nephrology signed off. 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 Pharmacy consult for monitoring. -Continue to follow INR. Type 2 Diabetes mellitus, chronic: Stable. Hemoglobin A1c good at 5.9 although this was in 2005. Currently on calorie restricted diet as advised by director of global marketing. Discussed with attending, no need to change to diabetic diet also. Increased diet per patient request to 1500 kcal to give patient more food options. Right lateral malleolus wound Mild deep tissue injury, right and left buttock -Wound care following. Cover ankle wound with bordered gauze dressing when up with PT and apply skin prep to L heel stage 1 pressure injury before applying hydrocolloid. Change dressing as needed. Nurse to obtain multipodus boots. -Apply skin prep to deep tissue injuries to bilateral buttocks BID and leave open to air. Hypothyroidism, chronic: -Continue Synthroid 200 mcg daily GI prophylaxis: Protonix 40mg Q12 DVT prophylaxis: Coumadin Discharge Planning 01/16: Per [facility] addressing financials to possibly accept patient. Kalyani Taveras Jan 19, 2017 09:49
[2017-01-19 15:25] VITALS: O2SAT 87
[2017-01-19 15:30] VITALS: O2SAT 94
[2017-01-19] MEDS: WARFARIN SOD 5 MG TAB PO SCH (16:16)
[2017-01-19 20:00] VITALS: BP 122/67; PULSE 81; RESP 20; TEMP 97.9; O2SAT 95
[2017-01-19] MEDS: QUEtiapine FUMARATE 25 MG TAB PO SCH (21:53)
[2017-01-19] MEDS: PRAVASTATIN SOD 20 MG TAB PO SCH (21:53)
[2017-01-19] MEDS: ACETAMINOPHEN 325 MG TAB PO PRN (21:53)
[2017-01-19] MEDS: MELATONIN 5 MG TAB PO SCH (21:53)
[2017-01-20] MEDS: LEVOTHYROXINE SODIUM 75 MCG TAB PO SCH (05:54)
[2017-01-20] MEDS: LEVOTHYROXINE SODIUM 100 MCG TAB PO SCH (05:54)
[2017-01-20] MEDS: FAMOTIDINE 20 MG TAB PO SCH ×2 (08:15→21:14)
[2017-01-20] MEDS: EUCERIN CREAM 120 GM JAR TOPICAL SCH ×2 (08:15→21:00)
[2017-01-20] MEDS: DOCUSATE SODIUM 50 MG/SENNA 8.6 MG TAB PO SCH ×2 (08:15→21:00)
[2017-01-20 08:24] VITALS: O2SAT 93
[2017-01-20 09:39] VITALS: BP 120/65; PULSE 101; RESP 16; TEMP 97.2; O2SAT 96
--- NOTE | 2017-01-20 09:55 | HHI.PR ---
Subjective Remarks Follow-up for respiratory failure. States when RT evaluated her this morning her O2 dropped into the 80's on room air. No acute complaints. Objective Vitals Vital Signs Date Time Temp Pulse Resp B/P (MAP) Pulse Ox O2 Delivery O2 Flow Rate FiO2 01/20/17 09:39 97.2 101 16 120/65 (83) 96 01/20/17 09:13 98 Nasal Cannula 2.00 01/20/17 08:24 93 Nasal Cannula 2.00 01/19/17 23:04 Nasal Cannula 2.00 01/19/17 20:00 97.9 81 20 122/67 (85) 95 01/19/17 20:00 95 Nasal Cannula 2.00 01/19/17 15:30 94 Nasal Cannula 2.00 01/19/17 15:25 87 21 01/19/17 10:02 97 Nasal Cannula 2.00 I/O 01/19/17 01/19/17 01/19/17 01/20/17 01/20/17 01/20/17 07:00 15:00 23:00 07:00 15:00 23:00 Intake Total 240 ml 360 ml 480 ml 240 ml Output Total 250 ml 300 ml 350 ml Balance -10 ml 360 ml 180 ml -110 ml Intake Oral 240 ml 360 ml 480 ml 240 ml Output Urine Total 250 ml 300 ml 350 ml # Voids 6 3 # Bowel Movements 0 1 1 0 Objective Remarks GENERAL: Morbidly obese pleasant female in no apparent distress. CARDIOVASCULAR: Regular rate and rhythm. RESPIRATORY: No accessory muscle use. CTAB. On NC. GASTROINTESTINAL: Abdomen soft, non-tender, non-distended. NEUROLOGICAL: Awake and alert. Normal speech. PSYCHIATRIC: Appropriate mood and affect. Procedures 09/15/2016 bronchoscopy 09/11/2016 bronchoscopy 09/10/2016 left IJ central venous line 08/28/2016 subclavian 7 [place] triple-lumen catheter left-sided. 08/18/2016 right arterial line 08/18/2016 right IJ central line Urinary Catheter: No Date of Insertion: Nov 21, 2016 Date of Removal: Nov 30, 2016 Vascular Central Line Catheter: No A/P Assessment and Plan 56-year-old female admitted with respiratory failure and pneumonia, now with chronic respiratory failure. 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 Decannulated 11/28/16, on supplemental O2. -Sputum culture with Pseudomonas aeruginosa and Klebsiella ESBL positive -Chest x-ray 12/23 with atelectasis at the bases. -Pulmonology, Dr. Beck following. Advises IS q4h, Ventolin 2 puffs qid prn, and to cleanse trach wound twice weekly. -Patient has not been using CPAP although did use it at home, but states she was claustrophobic with it. Patient would need CPAP at night, but she states she sleeps in elevated position. -Again on 2L of oxygen via nasal cannula; RT to wean as tolerated. Debilitation: Requires assistance for ADLs. Improving. -PT and OT following. OT is addressing L hand issues. I have asked physical therapist to apply padding under straps of post-op shoes due to patient discomfort. -OOB with assistance. -01/20: I informed patient she needs to work on walking to bathroom rather than using bedside commode. Acute toxic metabolic encephalopathy/delirium: Resolved -Seroquel 75 mg every 8 hours for agitation -Melatonin 5mg po qHS for insomnia Hypertension, chronic: Stable -Continue Lopressor. Dyslipidemia: chronic -Continue pravastatin. Acute kidney injury: Resolved. -S/p hemodialysis -Nephrology signed off. 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 Pharmacy consult for monitoring. -Continue to follow INR. Type 2 Diabetes mellitus, chronic: Stable. Hemoglobin A1c good at 5.9 although this was in 2005. Currently on calorie restricted diet as advised by mixing machine operator. Discussed with attending, no need to change to diabetic diet also. Increased diet per patient request to 1500 kcal to give patient more food options. Right lateral malleolus wound Mild deep tissue injury, right and left buttock -Wound care following. Cover ankle wound with bordered gauze dressing when up with PT and apply skin prep to L heel stage 1 pressure injury before applying hydrocolloid. Change dressing as needed. Nurse to obtain multipodus boots. -Apply skin prep to deep tissue injuries to bilateral buttocks BID and leave open to air. Hypothyroidism, chronic: -Continue Synthroid 200 mcg daily GI prophylaxis: Protonix 40mg Q12 DVT prophylaxis: Coumadin Discharge Planning 01/16: Per [facility] addressing financials to possibly accept patient. Kalyani Taveras Jan 20, 2017 09:55
[2017-01-20] MEDS: WARFARIN SOD 5 MG TAB PO SCH (17:00)
[2017-01-20 20:00] VITALS: BP 128/88; PULSE 102; RESP 18; TEMP 98.8; O2SAT 94
[2017-01-20] MEDS: MELATONIN 5 MG TAB PO SCH (21:14)
[2017-01-20] MEDS: ACETAMINOPHEN 325 MG TAB PO PRN (21:14)
[2017-01-20] MEDS: QUEtiapine FUMARATE 25 MG TAB PO SCH (21:14)
[2017-01-20] MEDS: PRAVASTATIN SOD 20 MG TAB PO SCH (21:14)
[2017-01-21] MEDS: LEVOTHYROXINE SODIUM 100 MCG TAB PO SCH (06:17)
[2017-01-21] MEDS: LEVOTHYROXINE SODIUM 75 MCG TAB PO SCH (06:17)
[2017-01-21 06:47] LABS: INTERNATIONAL NORMALIZED RATIO 1.9 RATIO; PROTHROMBIN TIME - PATIENT 21.8 SEC (9.8-11.6)
[2017-01-21 08:00] VITALS: BP 134/68; PULSE 100; RESP 18; TEMP 98; O2SAT 94; O2SAT 95
[2017-01-21] MEDS ORDERED: WARFARIN SOD 2 MG TAB PO ONE (08:30)
[2017-01-21] MEDS: DOCUSATE SODIUM 50 MG/SENNA 8.6 MG TAB PO SCH ×2 (08:49→21:00)
[2017-01-21] MEDS: FAMOTIDINE 20 MG TAB PO SCH ×2 (08:53→20:45)
[2017-01-21] MEDS: EUCERIN CREAM 120 GM JAR TOPICAL SCH ×2 (08:57→21:00)
--- NOTE | 2017-01-21 11:04 | HHI.PR ---
Subjective Remarks Follow-up for respiratory failure. Patient states she has a dry cough which started yesterday. She denies any worsening shortness of breath. Denies any fevers or chills. Patient was weaned to 1.5 L O2. Objective Vitals Vital Signs Date Time Temp Pulse Resp B/P (MAP) Pulse Ox O2 Delivery O2 Flow Rate FiO2 01/21/17 08:00 98.0 100 18 134/68 (90) 95 01/20/17 20:00 98.8 102 18 128/88 (101) 94 01/20/17 20:00 94 Nasal Cannula 2.00 01/20/17 20:00 94 Nasal Cannula 2.00 I/O 01/20/17 01/20/17 01/20/17 01/21/17 01/21/17 01/21/17 07:00 15:00 23:00 07:00 15:00 23:00 Intake Total 240 ml 0 ml Output Total 350 ml Balance -110 ml 0 ml Intake Oral 240 ml 0 ml Output Urine Total 350 ml # Voids 1 2 # Bowel Movements 0 1 2 Objective Remarks GENERAL: Morbidly obese pleasant female in no apparent distress sitting in recliner. CARDIOVASCULAR: Regular rate and rhythm. RESPIRATORY: No accessory muscle use. CTAB. On 1.5 L O2 via NC. GASTROINTESTINAL: Abdomen soft, non-tender, non-distended. NEUROLOGICAL: Awake and alert. Normal speech. PSYCHIATRIC: Appropriate mood and affect. Procedures 09/15/2016 bronchoscopy 09/11/2016 bronchoscopy 09/10/2016 left IJ central venous line 08/28/2016 subclavian 7 [place] triple-lumen catheter left-sided. 08/18/2016 right arterial line 08/18/2016 right IJ central line Urinary Catheter: No Date of Insertion: Nov 21, 2016 Date of Removal: Nov 30, 2016 Vascular Central Line Catheter: No A/P Assessment and Plan 56-year-old female admitted with respiratory failure and pneumonia, now with chronic respiratory failure. 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 Decannulated 11/28/16, on supplemental O2. -Sputum culture with Pseudomonas aeruginosa and Klebsiella ESBL positive -Chest x-ray 12/23 with atelectasis at the bases. -Pulmonology, Dr. Beck following. Advises IS q4h, Ventolin 2 puffs qid prn, and to cleanse trach wound twice weekly. -Patient has not been using CPAP although did use it at home, but states she was claustrophobic with it. Patient would need CPAP at night, but she states she sleeps in elevated position. -RT to wean oxygen as tolerated. Debilitation: Requires assistance for ADLs. Improving. -PT and OT following. OT is addressing L hand issues. I have asked physical therapist to apply padding under straps of post-op shoes due to patient discomfort. -OOB with assistance. -I informed patient she needs to work on walking to bathroom rather than using bedside commode. Acute toxic metabolic encephalopathy/delirium: Resolved -Seroquel 75 mg every 8 hours for agitation -Melatonin 5mg po qHS for insomnia Hypertension, chronic: Stable -Continue Lopressor. Dyslipidemia: chronic -Continue pravastatin. Acute kidney injury: Resolved. -S/p hemodialysis -Nephrology signed off. 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 Pharmacy consult for monitoring. -Continue to follow INR. Type 2 Diabetes mellitus, chronic: Stable. Hemoglobin A1c good at 5.9 although this was in 2005. Currently on calorie restricted diet as advised by meter maintenance person. Discussed with attending, no need to change to diabetic diet also. Increased diet per patient request to 1500 kcal to give patient more food options. Right lateral malleolus wound Mild deep tissue injury, right and left buttock -Wound care following. Cover ankle wound with bordered gauze dressing when up with PT and apply skin prep to L heel stage 1 pressure injury before applying hydrocolloid. Change dressing as needed. Nurse to obtain multipodus boots. -Apply skin prep to deep tissue injuries to bilateral buttocks BID and leave open to air. Hypothyroidism, chronic: -Continue Synthroid 200 mcg daily GI prophylaxis: Protonix 40mg Q12 DVT prophylaxis: Coumadin Discharge Planning 01/16: Per [facility] addressing financials to possibly accept patient. Kalyani Taveras Jan 21, 2017 11:04
[2017-01-21] MEDS: WARFARIN SOD 5 MG TAB PO SCH (16:33)
[2017-01-21 20:00] VITALS: BP 119/85; PULSE 92; RESP 16; TEMP 99.7; O2SAT 96
[2017-01-21] MEDS: ACETAMINOPHEN 325 MG TAB PO PRN (20:45)
[2017-01-21] MEDS: MELATONIN 5 MG TAB PO SCH (20:45)
[2017-01-21] MEDS: PRAVASTATIN SOD 20 MG TAB PO SCH (20:45)
[2017-01-21] MEDS: QUEtiapine FUMARATE 25 MG TAB PO SCH (20:45)
[2017-01-21 21:00] VITALS: O2SAT 94
[2017-01-22] MEDS: LEVOTHYROXINE SODIUM 100 MCG TAB PO SCH (05:54)
[2017-01-22] MEDS: LEVOTHYROXINE SODIUM 75 MCG TAB PO SCH (05:54)
[2017-01-22 08:07] VITALS: O2SAT 94
[2017-01-22] MEDS: DOCUSATE SODIUM 50 MG/SENNA 8.6 MG TAB PO SCH ×2 (08:51→20:26)
[2017-01-22] MEDS: FAMOTIDINE 20 MG TAB PO SCH ×2 (08:51→20:25)
[2017-01-22] MEDS: EUCERIN CREAM 120 GM JAR TOPICAL SCH ×2 (08:52→20:27)
[2017-01-22] MEDS: ACETAMINOPHEN 325 MG TAB PO PRN ×2 (08:58→20:26)
[2017-01-22 09:13] VITALS: BP 129/86; PULSE 105; RESP 16; TEMP 98.4; O2SAT 95
--- NOTE | 2017-01-22 11:24 | HHI.PR ---
Subjective Remarks Follow-up for respiratory failure. Patient states she had a headache and nausea this morning. She states she gets coughing spells which cause her to feel like she is going to vomit. She denies any fevers or chills. Denies any chest pain, pleuritic pain, or shortness of breath. She only has minor mucus production. Patient is worried because she states everything started with a cough. Objective Vitals Vital Signs Date Time Temp Pulse Resp B/P (MAP) Pulse Ox O2 Delivery O2 Flow Rate FiO2 01/22/17 09:13 98.4 105 16 129/86 (100) 95 01/22/17 08:07 94 Nasal Cannula 2.00 01/21/17 21:00 94 Nasal Cannula 2.00 01/21/17 20:00 99.7 92 16 119/85 (96) 96 01/21/17 20:00 96 Nasal Cannula 1.50 I/O 01/21/17 01/21/17 01/21/17 01/22/17 01/22/17 01/22/17 07:00 15:00 23:00 07:00 15:00 23:00 Intake Total 0 ml 450 ml 120 ml 120 ml Output Total 175 ml 225 ml Balance 0 ml 450 ml -55 ml -105 ml Intake Oral 0 ml 450 ml 120 ml 120 ml Output Urine Total 175 ml 225 ml # Voids 2 3 1 # Bowel Movements 2 0 0 0 Objective Remarks GENERAL: Morbidly obese pleasant female in no apparent distress sitting in recliner. CARDIOVASCULAR: Mildly tachycardic at 92 bpm with regular rhythm. RESPIRATORY: No accessory muscle use. CTAB. No wheezes, rales, or rhonchi. On 2 L O2 via NC. GASTROINTESTINAL: Abdomen soft, non-tender, non-distended. NEUROLOGICAL: Awake and alert. Normal speech. PSYCHIATRIC: Appropriate mood and affect. Procedures 09/15/2016 bronchoscopy 09/11/2016 bronchoscopy 09/10/2016 left IJ central venous line 08/28/2016 subclavian 7 [place] triple-lumen catheter left-sided. 08/18/2016 right arterial line 08/18/2016 right IJ central line Urinary Catheter: No Date of Insertion: Nov 21, 2016 Date of Removal: Nov 30, 2016 Vascular Central Line Catheter: No A/P Assessment and Plan 56-year-old female admitted with respiratory failure and pneumonia, now with chronic respiratory failure. 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 Decannulated 11/28/16, on supplemental O2. -Sputum culture with Pseudomonas aeruginosa and Klebsiella ESBL positive -Chest x-ray 12/23 with atelectasis at the bases. -Pulmonology, Dr. Beck following. Advises IS q4h, Ventolin 2 puffs qid prn, and to cleanse trach wound twice weekly. -Patient has not been using CPAP although did use it at home, but states she was claustrophobic with it. Patient would need CPAP at night, but she states she sleeps in elevated position. -RT to wean oxygen as tolerated. Cough: Started 01/20 per patient. Minimally productive. Remains afebrile. Lungs are clear with good breath sounds. Remains on 2L. -01/22: Start Tessalon prn cough. Would prefer to avoid narcotics at this time. If patient has persistent coughing spells and nausea may need to start Phenergan /codeine syrup. No need for chest x-ray at this time. Patient has been using IS frequently; advised to continue. -Monitor vitals and clinically for worsening. Debilitation: Requires assistance for ADLs. Improving. -PT and OT following. OT is addressing L hand issues. I have asked physical therapist to apply padding under straps of post-op shoes due to patient discomfort. -OOB with assistance. -I informed patient she needs to work on walking to bathroom rather than using bedside commode. Acute toxic metabolic encephalopathy/delirium: Resolved -Seroquel 75 mg every 8 hours for agitation -Melatonin 5mg po qHS for insomnia Hypertension, chronic: Stable -Continue Lopressor. Dyslipidemia: chronic -Continue pravastatin. Acute kidney injury: Resolved. -S/p hemodialysis -Nephrology signed off. 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 Pharmacy consult for monitoring. -Continue to follow INR. Type 2 Diabetes mellitus, chronic: Stable. Hemoglobin A1c good at 5.9 although this was in 2005. Currently on calorie restricted diet as advised by entertainment manager. Discussed with attending, no need to change to diabetic diet also. Increased diet per patient request to 1500 kcal to give patient more food options. Right lateral malleolus wound Mild deep tissue injury, right and left buttock -Wound care following. Cover ankle wound with bordered gauze dressing when up with PT and apply skin prep to L heel stage 1 pressure injury before applying hydrocolloid. Change dressing as needed. Nurse to obtain multipodus boots. -Apply skin prep to deep tissue injuries to bilateral buttocks BID and leave open to air. Hypothyroidism, chronic: -Continue Synthroid 200 mcg daily GI prophylaxis: Protonix 40mg Q12 DVT prophylaxis: Coumadin Discharge Planning 01/16: Per [facility] addressing financials to possibly accept patient. Kalyani Taveras Jan 22, 2017 11:24
[2017-01-22] MEDS: WARFARIN SOD 5 MG TAB PO SCH (16:18)
[2017-01-22 20:00] VITALS: BP 126/73; PULSE 88; RESP 20; TEMP 98.8; O2SAT 94
[2017-01-22] MEDS: MELATONIN 5 MG TAB PO SCH (20:25)
[2017-01-22] MEDS: QUEtiapine FUMARATE 25 MG TAB PO SCH (20:25)
[2017-01-22] MEDS: PRAVASTATIN SOD 20 MG TAB PO SCH (20:25)
[2017-01-22 20:30] VITALS: O2SAT 94
[2017-01-23 05:56] LABS: INTERNATIONAL NORMALIZED RATIO 2.4 RATIO; PROTHROMBIN TIME - PATIENT 27.7 SEC (9.8-11.6)
[2017-01-23] MEDS: LEVOTHYROXINE SODIUM 75 MCG TAB PO SCH (05:56)
[2017-01-23] MEDS: LEVOTHYROXINE SODIUM 100 MCG TAB PO SCH (05:56)
[2017-01-23] MEDS: ACETAMINOPHEN 325 MG TAB PO PRN ×2 (05:58→20:43)
[2017-01-23 08:00] VITALS: O2SAT 93
[2017-01-23] MEDS: EUCERIN CREAM 120 GM JAR TOPICAL SCH ×2 (08:47→20:41)
[2017-01-23] MEDS: DOCUSATE SODIUM 50 MG/SENNA 8.6 MG TAB PO SCH ×2 (08:47→20:41)
[2017-01-23] MEDS: FAMOTIDINE 20 MG TAB PO SCH ×2 (08:47→20:40)
[2017-01-23 13:01] VITALS: BP 107/78; PULSE 101; RESP 16; TEMP 98.1; O2SAT 96
--- NOTE | 2017-01-23 13:59 | HHI.PR ---
Subjective Remarks Patient seen and examined today for follow-up on profound weakness, hypoxia. Nursing staff indicates patient is improving on a daily basis. States that the patient is getting out of bed and ambulating to the restroom. They are requesting if I can discontinue the bedside commode. Objective Vitals Vital Signs Date Time Temp Pulse Resp B/P (MAP) Pulse Ox O2 Delivery O2 Flow Rate FiO2 01/23/17 13:01 98.1 101 16 107/78 (88) 96 01/23/17 10:08 95 Nasal Cannula 1.50 01/22/17 20:30 94 Nasal Cannula 2.00 01/22/17 20:00 98.8 88 20 126/73 (90) 94 01/22/17 20:00 94 Nasal Cannula 1.50 I/O 01/22/17 01/22/17 01/22/17 01/23/17 01/23/17 01/23/17 06:59 14:59 22:59 06:59 14:59 22:59 Intake Total 120 ml 0 ml Output Total 225 ml Balance -105 ml 0 ml Intake Oral 120 ml 0 ml Output Urine Total 225 ml # Voids 3 4 # Bowel Movements 0 Objective Remarks GENERAL: Well-developed, morbidly obese, in no acute distress. alert and orientated HEENT: Head is normocephalic without any lesions or masses noted. Facial features are symmetric. Eyes: Extraocular muscles are intact. Conjunctivae were clear. NECK: Trachea midline no deviation. CARDIAC: Regular rhythm, regular rate. S1/S2 are heard. No murmurs gallops or rubs. LUNGS: Clear to auscultation bilaterally. No wheeze, rhonchi or rales. No use of accessory muscles on inspiration or expiration. ABDOMEN: Soft, nontender. Nondistended. Bowel sounds heard in all 4 quadrants. No organomegaly or masses. Negative rebound, negative guarding EXTREMITIES: No edema, pulses are equal bilaterally. No cyanosis or clubbing NEUROLOGY: Mood and affect appear appropriate. Moving all extremities, speech is clear Procedures 09/15/2016 bronchoscopy 09/11/2016 bronchoscopy 09/10/2016 left IJ central venous line 08/28/2016 subclavian 7 [place] triple-lumen catheter left-sided. 08/18/2016 right arterial line 08/18/2016 right IJ central line Urinary Catheter: No Date of Insertion: Nov 21, 2016 Date of Removal: Nov 30, 2016 Vascular Central Line Catheter: No A/P Assessment and Plan Profound weakness, debilitation secondary to prolonged hospitalization, improving Physical therapy 7 days a week, patient now walking with frontwheel walker 160 feet, patient with standby assist with transfers. 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 Decannulated 11/28/16, on supplemental O2. 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 Cleanse right lateral malleolus with NS and gauze. Apply skin prep over non-blanchable purple discoloration. Cover with border gauze dressing Float heel and ankle off mattress surface by placing pillow underneath calf while in bed. Apply skin prep to deep tissue injuries to bilateral buttocks BID and leave open to air. Multi-Podus boots Acute toxic metabolic encephalopathy/delirium: Resolved Discontinue Seroquel 25 mg daily for agitation Melatonin 5mg po qHS for insomnia Hypertension: chronic, remains stable No longer on any medication Dyslipidemia: chronic -Continue pravastatin. Awaiting lipid panel , check quarterly Left IJ/subclavian nonocclusive thrombus Continue Coumadin remains therapeutic, 2.4. Pharmacy consult for monitoring. Type 2 Diabetes mellitus, chronic: Continue diabetic diet. Hemoglobin A1c 5.3 Hypothyroidism, chronic: Continue Synthroid 175 g daily TSH 0.044, down from 1.37, continue monitor and adjust medications accordingly GI prophylaxis: Pepcid 20 mg twice daily DVT prophylaxis: Coumadin Discharge Planning Discharge per case management. Documentation indicates that social security is pending, no accepting facility at this time Simeon Reyna Jan 23, 2017 13:59
[2017-01-23] MEDS: WARFARIN SOD 5 MG TAB PO SCH (17:33)
[2017-01-23 20:00] VITALS: BP 114/85; PULSE 93; RESP 20; TEMP 98.9; O2SAT 93
[2017-01-23] MEDS: PRAVASTATIN SOD 20 MG TAB PO SCH (20:40)
[2017-01-23] MEDS: MELATONIN 5 MG TAB PO SCH (20:40)
[2017-01-23 22:00] VITALS: O2SAT 93
[2017-01-24] MEDS: LEVOTHYROXINE SODIUM 100 MCG TAB PO SCH (06:04)
[2017-01-24] MEDS: LEVOTHYROXINE SODIUM 75 MCG TAB PO SCH (06:04)
[2017-01-24 08:00] VITALS: BP 135/93; PULSE 103; RESP 19; TEMP 98; O2SAT 92
[2017-01-24] MEDS: DOCUSATE SODIUM 50 MG/SENNA 8.6 MG TAB PO SCH ×2 (08:30→21:00)
[2017-01-24] MEDS: FAMOTIDINE 20 MG TAB PO SCH ×2 (08:30→20:16)
[2017-01-24] MEDS: EUCERIN CREAM 120 GM JAR TOPICAL SCH ×2 (08:31→20:17)
[2017-01-24] MEDS: BENZONATATE 100 MG CAP PO PRN ×2 (09:07→17:32)
[2017-01-24 09:48] VITALS: O2SAT 92
--- NOTE | 2017-01-24 11:43 | HHI.PR ---
Subjective Remarks Patient seen and examined today in follow-up for profound weakness, hypoxia. Patient states that she is getting better on a daily basis. She is no longer using bedside commode. She is getting out of bed on her home and going to the bathroom. She states that she was able to perform her own personal toiletry yesterday. Patient states that she does not want to go to a rehabilitation facility. That she wants to be discharged home. Objective Vitals Vital Signs Date Time Temp Pulse Resp B/P (MAP) Pulse Ox O2 Delivery O2 Flow Rate FiO2 01/24/17 09:48 92 Nasal Cannula 2.00 01/24/17 09:05 92 Nasal Cannula 2.00 01/24/17 08:00 98.0 103 19 135/93 (107) 92 01/23/17 22:00 93 Nasal Cannula 2.00 01/23/17 21:43 16 01/23/17 20:00 98.9 93 20 114/85 (95) 93 01/23/17 20:00 94 Nasal Cannula 1.50 01/23/17 13:01 98.1 101 16 107/78 (88) 96 I/O 01/23/17 01/23/17 01/23/17 01/24/17 01/24/17 01/24/17 06:59 14:59 22:59 06:59 14:59 22:59 Intake Total 0 ml 240 ml 120 ml Output Total 250 ml Balance 0 ml 240 ml -130 ml Intake Oral 0 ml 240 ml 120 ml Output Urine Total 250 ml # Voids 4 5 1 # Bowel Movements 1 0 Objective Remarks GENERAL: Well-developed, morbidly obese, in no acute distress. alert and orientated HEENT: Head is normocephalic without any lesions or masses noted. Facial features are symmetric. Eyes: Extraocular muscles are intact. Conjunctivae were clear. NECK: Trachea midline no deviation. CARDIAC: Regular rhythm, regular rate. S1/S2 are heard. No murmurs gallops or rubs. LUNGS: Clear to auscultation bilaterally. No wheeze, rhonchi or rales. No use of accessory muscles on inspiration or expiration. ABDOMEN: Soft, nontender. Nondistended. Bowel sounds heard in all 4 quadrants. No organomegaly or masses. Negative rebound, negative guarding EXTREMITIES: No edema, pulses are equal bilaterally. No cyanosis or clubbing NEUROLOGY: Mood and affect appear appropriate. Moving all extremities, speech is clear Procedures 09/15/2016 bronchoscopy 09/11/2016 bronchoscopy 09/10/2016 left IJ central venous line 08/28/2016 subclavian 7 Georgian triple-lumen catheter left-sided. 08/18/2016 right arterial line 08/18/2016 right IJ central line Urinary Catheter: No Date of Insertion: Nov 21, 2016 Date of Removal: Nov 30, 2016 Vascular Central Line Catheter: No A/P Assessment and Plan Profound weakness, debilitation secondary to prolonged hospitalization, improving Physical therapy 7 days a week, patient now walking with frontwheel walker 160 feet, patient with standby assist with transfers. Still recommending PT at rehabilitation Continue occupational therapy, patient is improving now only needing minimal assistance with ADLs, contact guard with transferring, still recommending OT at rehabilitation Get out of bed 3 times daily at least with meals Discontinue bedside commode Acute on chronic hypercapnic and hypoxemic respiratory failure, probable JOE, OHS, stable S/p tracheostomy. Decannulated 11/28/16, on supplemental O2. 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 Cleanse right lateral malleolus with NS and gauze. Apply skin prep over non-blanchable purple discoloration. Cover with border gauze dressing Float heel and ankle off mattress surface by placing pillow underneath calf while in bed. Apply skin prep to deep tissue injuries to bilateral buttocks BID and leave open to air. Multi-Podus boots Acute toxic metabolic encephalopathy/delirium: Resolved Discontinue Seroquel 25 mg daily for agitation Melatonin 5mg po qHS for insomnia Hypertension: chronic, remains stable No longer on any medication Dyslipidemia: chronic -Continue pravastatin. Awaiting lipid panel , check quarterly Left IJ/subclavian nonocclusive thrombus Continue Coumadin remains therapeutic, 2.4. Pharmacy consult for monitoring. Type 2 Diabetes mellitus, chronic: Continue diabetic diet. Hemoglobin A1c 5.3 Hypothyroidism, chronic: Continue Synthroid 175 g daily TSH 0.044, down from 1.37, continue monitor and adjust medications accordingly GI prophylaxis: Pepcid 20 mg twice daily DVT prophylaxis: Coumadin Discharge Planning Discharge per case management. Documentation indicates that social security is pending, no accepting facility at this time. Patient indicates that she does not want to go to a rehabilitation facility Simeon Reyna Jan 24, 2017 11:43
[2017-01-24] MEDS: WARFARIN SOD 5 MG TAB PO SCH (15:44)
[2017-01-24 20:00] VITALS: BP 122/90; PULSE 83; RESP 20; TEMP 98.2; O2SAT 94
[2017-01-24] MEDS: PRAVASTATIN SOD 20 MG TAB PO SCH (20:16)
[2017-01-24] MEDS: MELATONIN 5 MG TAB PO SCH (20:16)
[2017-01-24] MEDS: ACETAMINOPHEN 325 MG TAB PO PRN (20:17)
[2017-01-24 21:00] VITALS: O2SAT 93
[2017-01-25] MEDS: BENZONATATE 100 MG CAP PO PRN ×2 (01:04→10:54)
[2017-01-25] MEDS: LEVOTHYROXINE SODIUM 75 MCG TAB PO SCH (05:36)
[2017-01-25] MEDS: LEVOTHYROXINE SODIUM 100 MCG TAB PO SCH (05:36)
[2017-01-25] MEDS: ACETAMINOPHEN 325 MG TAB PO PRN ×2 (05:38→21:44)
[2017-01-25 08:00] VITALS: BP 113/68; PULSE 93; RESP 18; TEMP 96.8; O2SAT 96
[2017-01-25 08:30] LABS: PROTHROMBIN TIME - PATIENT 34.4 SEC (9.8-11.6)
[2017-01-25] MEDS: EUCERIN CREAM 120 GM JAR TOPICAL SCH ×2 (09:00→21:47)
--- NOTE | 2017-01-25 10:35 | HHI.PR ---
Subjective Remarks Patient seen and examined today for follow-up on her weakness, hypoxia. Patient is doing much better. She is using the toilet now incentive bedside commode. She is getting out of bed by herself. Awaiting clearance from physical therapy for discharge. Case management for discharge planning Objective Vitals Vital Signs Date Time Temp Pulse Resp B/P (MAP) Pulse Ox O2 Delivery O2 Flow Rate FiO2 01/25/17 08:00 96.8 93 18 113/68 (83) 96 01/25/17 07:44 18 01/24/17 21:00 93 Nasal Cannula 2.00 01/24/17 20:00 98.2 83 20 122/90 (101) 94 01/24/17 20:00 93 Nasal Cannula 2.00 I/O 01/24/17 01/24/17 01/24/17 01/25/17 01/25/17 01/25/17 06:59 14:59 22:59 06:59 14:59 22:59 Intake Total 120 ml 240 ml Output Total 250 ml 250 ml Balance -130 ml -10 ml Intake Oral 120 ml 240 ml Output Urine Total 250 ml 250 ml # Voids 1 4 1 # Bowel Movements 0 Objective Remarks GENERAL: Well-developed, morbidly obese, in no acute distress. alert and orientated HEENT: Head is normocephalic without any lesions or masses noted. Facial features are symmetric. Eyes: Extraocular muscles are intact. Conjunctivae were clear. NECK: Trachea midline no deviation. CARDIAC: Regular rhythm, regular rate. S1/S2 are heard. No murmurs gallops or rubs. LUNGS: Clear to auscultation bilaterally. No wheeze, rhonchi or rales. No use of accessory muscles on inspiration or expiration. ABDOMEN: Soft, nontender. Nondistended. Bowel sounds heard in all 4 quadrants. No organomegaly or masses. Negative rebound, negative guarding EXTREMITIES: No edema, pulses are equal bilaterally. No cyanosis or clubbing NEUROLOGY: Mood and affect appear appropriate. Moving all extremities, speech is clear Procedures 09/15/2016 bronchoscopy 09/11/2016 bronchoscopy 09/10/2016 left IJ central venous line 08/28/2016 subclavian 7 [place] triple-lumen catheter left-sided. 08/18/2016 right arterial line 08/18/2016 right IJ central line Urinary Catheter: No Date of Insertion: Nov 21, 2016 Date of Removal: Nov 30, 2016 Vascular Central Line Catheter: No A/P Assessment and Plan Profound weakness, debilitation secondary to prolonged hospitalization, improving daily Physical therapy 7 days a week, patient now walking with frontwheel walker 160 feet, patient with standby assist with transfers. Still recommending PT at rehabilitation/home with home PT Continue occupational therapy, patient is improving now only needing minimal assistance with ADLs, contact guard with transferring, still recommending OT at rehabilitation Get out of bed 3 times daily at least with meals Discontinue bedside commode Acute on chronic hypercapnic and hypoxemic respiratory failure, probable JOE, OHS, stable S/p tracheostomy. Decannulated 11/28/16, on supplemental O2. 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 Cleanse right lateral malleolus with NS and gauze. Apply skin prep over non-blanchable purple discoloration. Cover with border gauze dressing Float heel and ankle off mattress surface by placing pillow underneath calf while in bed. Apply skin prep to deep tissue injuries to bilateral buttocks BID and leave open to air. Multi-Podus boots Acute toxic metabolic encephalopathy/delirium: Resolved Discontinue Seroquel 25 mg daily for agitation Melatonin 5mg po qHS for insomnia Hypertension: chronic, remains stable No longer on any medication Dyslipidemia: chronic -Continue pravastatin. Awaiting lipid panel , check quarterly Left IJ/subclavian nonocclusive thrombus Continue Coumadin remains therapeutic, 2.4. Pharmacy consult for monitoring. Type 2 Diabetes mellitus, chronic: Continue diabetic diet. Hemoglobin A1c 5.3 Hypothyroidism, chronic: Continue Synthroid 175 g daily TSH 0.044, down from 1.37, continue monitor and adjust medications accordingly GI prophylaxis: Pepcid 20 mg twice daily DVT prophylaxis: Coumadin Discharge Planning Discharge per case management. Documentation indicates that social security is pending, no accepting facility at this time. Patient indicates that she does not want to go to a rehabilitation facility. We'll consult case management for discharge home with home health care Simeon Reyna Jan 25, 2017 10:35
[2017-01-25] MEDS ORDERED: WALKER WHEELS/F1 MIS (10:40)
[2017-01-25] MEDS ORDERED: ADJUSTABLE COMM1 MIS (10:40)
[2017-01-25] MEDS ORDERED: OXYGENDME NAS.CANULA ×2 (10:40→17:01)
--- NOTE | 2017-01-25 10:41 | HHI.FF ---
Face to Face Verification Diagnosis: (1) Hypoxia (2) Weakness (3) Debility Physical Therapy Order: Evaluate and Treat, Improve ambulation, Strength and gait training Occupational Therapy Order: Evaluate and Treat, Improve ADL, Gross motor coordination, Fine motor coordination Home Health Nursing Order: Medical education Signs/symptoms of disease process Oxygen administration education Nursing assessment with vital signs I have seen patient Barbara Clayton on 01/25/17. My clinical findings support the need for the requested home health care services because: Patient has SOB Deconditioned w/ increased weakness Limited ability to care for self I certify that my clinical findings support that this patient is homebound because: Unsteady gait/balance Unsafe to leave home unassisted Simeon Reyna Jan 25, 2017 10:41
[2017-01-25] MEDS: DOCUSATE SODIUM 50 MG/SENNA 8.6 MG TAB PO SCH ×2 (10:54→21:00)
[2017-01-25] MEDS: FAMOTIDINE 20 MG TAB PO SCH ×2 (10:54→21:46)
[2017-01-25 14:53] VITALS: O2SAT 93
--- NOTE | 2017-01-25 17:19 | PD.WCN.NOT ---
Wound Consult Description: Follow up of R lateral malleolus closed stage 4 now DTI and L heel stage 1 Communicated with: VINCENT Ryan Recommendation: Please discontinue adhesive foam dressing to R lateral malleolus and apply skin prep over non blanchable purple discoloration and intact scab. Please cover with bordered gauze dressing when up with P.T. Please apply skin prep to L heel stage 1 pressure injury before applying hydrocolloid in place. Please change dressing as needed Additional Information: Patient seen on [facility] 5th floor for follow up of Resolved stage 4 R lateral Malleolus with surrounding deep tissue injury.Removed bordered gauze dressing in place to reveal intact scab to R lateral Malleolus with resolved Deep tissue injury. Area. Applied skin prep before applying bordered gauze dressing in place. Peeled back hydrocolloid dressing in place to L heel to reveal resolved stage 1 pressure injury. Replaced hydrocolloid dressing before reapplying shoes with braces. Carie Cordoba [facility] Jan 25, 2017 17:19
[2017-01-25] MEDS: WARFARIN SOD 5 MG TAB PO SCH (17:39)
[2017-01-25 20:00] VITALS: BP 137/87; PULSE 103; RESP 18; TEMP 98.2; O2SAT 95
[2017-01-25 20:32] VITALS: O2SAT 92
[2017-01-25] MEDS: PRAVASTATIN SOD 20 MG TAB PO SCH (21:43)
[2017-01-25] MEDS: MELATONIN 5 MG TAB PO SCH (21:44)
[2017-01-26] MEDS: BENZONATATE 100 MG CAP PO PRN ×2 (03:05→12:32)
[2017-01-26] MEDS: LEVOTHYROXINE SODIUM 75 MCG TAB PO SCH (05:45)
[2017-01-26] MEDS: LEVOTHYROXINE SODIUM 100 MCG TAB PO SCH (05:45)
[2017-01-26] MEDS: ACETAMINOPHEN 325 MG TAB PO PRN (05:46)
[2017-01-26] MEDS ORDERED: COUM5TAB PO (07:52)
[2017-01-26] MEDS ORDERED: LEVO.1 PO (07:52)
[2017-01-26] MEDS ORDERED: LEVO.075 PO (07:52)
[2017-01-26 07:59] LABS: INTERNATIONAL NORMALIZED RATIO 2.8 RATIO; PROTHROMBIN TIME - PATIENT 32.9 SEC (9.8-11.6)
[2017-01-26 08:00] VITALS: BP 121/93; PULSE 98; RESP 18; TEMP 96; O2SAT 94; O2SAT 95
[2017-01-26] MEDS: DOCUSATE SODIUM 50 MG/SENNA 8.6 MG TAB PO SCH ×2 (08:49→08:51)
[2017-01-26] MEDS: FAMOTIDINE 20 MG TAB PO SCH (08:50)
[2017-01-26] MEDS ORDERED: ADJUSTABLE COMM1 MIS (09:35)
[2017-01-26] MEDS ORDERED: OXYGENDME NAS.CANULA (09:35)
[2017-01-26] MEDS ORDERED: WALKER WHEELS/F1 MIS (09:35)
[2017-01-26] MEDS: EUCERIN CREAM 120 GM JAR TOPICAL SCH (10:07)
--- NOTE | 2017-01-26 11:29 | HHI.DCPOC ---
Discharge Care Plan Diagnosis: (1) Respiratory failure (2) Hypoxia (3) Weakness (4) Debility Goals to Promote Your Health * To prevent worsening of your condition and complications * To maintain your health at the optimal level Directions to Meet Your Goals Take your medications as prescribed Follow your dietary instruction Follow activity as directed Keep your appointments as scheduled Take your immunizations and boosters as scheduled If your symptoms worsen call your PCP, if no PCP go to Urgent Care Center or Emergency Room Smoking is Dangerous to Your Health. Avoid second hand smoke Call the 24-hour hour crisis hotline for domestic abuse at Simeon Reyna Jan 26, 2017 11:29
--- NOTE | 2017-01-26 11:31 | HHI.DS ---
Discharge Summary Admission Date Aug 14, 2016 at 22:35 Discharge Date: Jan 26, 2017 Admitting Diagnosis RESP FAILURE, PNEUMONIA, CHF (1) Respiratory failure ICD Code: J96.90 - Respiratory failure, unspecified, unspecified whether with hypoxia or hypercapnia Status: Acute (2) Weakness ICD Code: R53.1 - Weakness Status: Acute (3) Hypoxia ICD Code: R09.02 - Hypoxemia (4) Debility ICD Code: R53.81 - Other malaise Status: Acute Procedures 09/15/2016 bronchoscopy 09/11/2016 bronchoscopy 09/10/2016 left IJ central venous line 08/28/2016 subclavian 7 Romanian triple-lumen catheter left-sided. 08/18/2016 right arterial line 08/18/2016 right IJ central line Brief History - From Admission 56-year-old morbidly obese female brought in the emergency department in respiratory distress. She was intubated by ER attending. She has been sick for about a week with symptoms consistent with UTI. She's had fevers and chills. She's been short of breath. She's had fatigue. She has had a cough and chest pain with coughing. The family reports that she's been delirious for the last 3 days. Significant Findings Laboratory Tests Test 01/25/17 08:10 01/26/17 07:00 Prothrombin Time 34.4 SEC (9.8-11.6) 32.9 SEC (9.8-11.6) Imaging Last Impressions Chest X-Ray 12/21/16 0000 Signed Impressions: Service Date/Time: November 20:26 - CONCLUSION: 1. Minimal basal scarring or atelectasis. No significant effusion. Rony Malloy MD Central Venous Line 10/20/16 0000 Signed Impressions: Service Date/Time: Thursday, October 20, 2016 00:00 - CONCLUSION: Uncomplicated Permcath removal. Didier Zhang MD Catheter Placement X-Ray 09/29/16 1223 Signed Impressions: Service Date/Time: Thursday, September 29, 2016 12:31 - CONCLUSION: Vas-Cath to PermCath exchange as detailed above. Taco Haas Jr., MD Renal Ultrasound 09/17/16 Signed Impressions: Service Date/Time: Saturday, September 17, 2016 13:31 - CONCLUSION: Negative renal sonogram. Taco Davidson MD Upper Extremity Ultrasound 09/14/16 0000 Signed Impressions: Service Date/Time: August 08:32 - CONCLUSION: There is thrombus within the left subclavian and internal jugular veins. Danyel Escalante MD Lower Extremity Ultrasound 09/13/16 0000 Signed Impressions: Service Date/Time: Tuesday, September 13, 2016 22:33 - CONCLUSION: Normal examination. Leonides Mason MD Liver Ultrasound 09/08/16 Signed Impressions: Service Date/Time: Thursday, September 08, 2016 08:45 - CONCLUSION: 1. Cholelithiasis with distended gallbladder. However, there are no associated findings present to diagnose acute cholecystitis. If there is persistent clinical concern for acute cholecystitis could evaluate for cystic duct obstruction with hepatobiliary scintigraphy. 2. Hepatomegaly with very heterogeneous echotexture and steatosis. Dejan Allison MD Gall Bladder Ultrasound 08/29/16 Signed Impressions: Service Date/Time: Monday, August 29, 2016 15:21 - CONCLUSION: 1. Hepatomegaly with heterogeneous echotexture throughout the liver. 2. There is a large echogenic area near the neck of the gallbladder suggestive of a stone, but despite its large size, demonstrates no acoustic shadowing in any of the views. Taco Davidson MD CT Angiography 08/15/16 Signed Impressions: Service Date/Time: Monday, August 15, 2016 02:33 - CONCLUSION: 1. No evidence for pulmonary embolism. 2. Multifocal consolidation greatest in the right lower lobe and associated adenopathy. Terry Estrada MD PE at Discharge GENERAL: Morbidly obese pleasant female in no apparent distress sitting in recliner. CARDIOVASCULAR: Mildly tachycardic at 92 bpm with regular rhythm. RESPIRATORY: No accessory muscle use. CTAB. No wheezes, rales, or rhonchi. On 2 L O2 via NC. GASTROINTESTINAL: Abdomen soft, non-tender, non-distended. NEUROLOGICAL: Awake and alert. Normal speech. PSYCHIATRIC: Appropriate mood and affect. Hospital Course Profound weakness, debilitation secondary to prolonged hospitalization, improving daily Physical therapy 7 days a week, patient now walking with frontwheel walker 160 feet, patient with standby assist with transfers. Still recommending PT at rehabilitation/home with home PT Continue occupational therapy, patient is improving now only needing minimal assistance with ADLs, contact guard with transferring, still recommending OT at rehabilitation Get out of bed 3 times daily at least with meals Discontinue bedside commode Acute on chronic hypercapnic and hypoxemic respiratory failure, probable JOE, OHS, stable S/p tracheostomy. Decannulated 11/28/16, on supplemental O2. 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 Cleanse right lateral malleolus with NS and gauze. Apply skin prep over non-blanchable purple discoloration. Cover with border gauze dressing Float heel and ankle off mattress surface by placing pillow underneath calf while in bed. Apply skin prep to deep tissue injuries to bilateral buttocks BID and leave open to air. Multi-Podus boots Acute toxic metabolic encephalopathy/delirium: Resolved Discontinue Seroquel 25 mg daily for agitation Melatonin 5mg po qHS for insomnia Hypertension: chronic, remains stable No longer on any medication Dyslipidemia: chronic -Continue pravastatin. Awaiting lipid panel , check quarterly Left IJ/subclavian nonocclusive thrombus Continue Coumadin remains therapeutic, 2.4. Pharmacy consult for monitoring. Type 2 Diabetes mellitus, chronic: Continue diabetic diet. Hemoglobin A1c 5.3 Hypothyroidism, chronic: Continue Synthroid 175 g daily TSH 0.044, down from 1.37, continue monitor and adjust medications accordingly GI prophylaxis: Pepcid 20 mg twice daily Pt Condition on Discharge: Stable Discharge Disposition: Disch w/ Home Health Serv Discharge Time: > 30 minutes Discharge Instructions DIET: Follow Instructions for: As Tolerated, No Restrictions Activities you can perform: Regular-No Restrictions Follow up Referrals: Gastroenterology - 2 Weeks PCP Follow-up - 3-5 Days Pulmonology - 1 Week New Medications: Adjustable Commode 3-in-1 (Adjustable Commode 3-in-1) 1 Mis Mis EA .ROUTE DIRECTED, #1 Oxygen (O2) (Oxygen (O2)) Device LITER JORGE.CANULA CONTINUOUS for Prevent Hypoxemia, #2 Oxygen Concentrator Portable Gaseous 2 L/min via Nasal Canula Continuous For 99 months Walker with Front Wheels (Walker with Front Wheels) 1 Mis Mis EA .ROUTE DIRECTED, #1 0 Refills Albuterol Neb (Albuterol Neb) 2.5 Mg/3 Ml Neb 2.5 MG NEB Q4-6H PRN for dyspnea, #30 NEBULE Famotidine Liq (Famotidine Liq) 40 Mg/5 Ml Susp 20 MG NG BID for gerd, #60 CAP Levothyroxine (Synthroid) 100 Mcg Tab 100 MCG PO DAILY@06 for Thyroid, #31 TAB Levothyroxine (Synthroid) 75 Mcg Tab 75 MCG PO DAILY@06 for Thyroid, #31 TAB Warfarin (Coumadin) 5 Mg Tab 5 MG PO DAILY@1600 for anticoagulation, #31 TAB Continued Medications: Lovastatin (Lovastatin) 20 Mg Tab 20 MG PO HS for Cholesterol Management, #30 TAB 0 Refills Discontinued Medications: Hydrochlorothiazide (Hydrochlorothiazide) 12.5 Mg Cap 12.5 MG PO DAILY, #30 CAP 0 Refills Levothyroxine (Levothyroxine) 200 Mcg Tab 200 MCG PO DAILY for Thyroid, #30 TAB 0 Refills Levothyroxine (Levothyroxine) 50 Mcg Tab 50 MCG PO DAILY for Thyroid, #30 TAB 0 Refills Simeon Reyna Jan 26, 2017 11:31
[2017-01-30] MEDS ORDERED: NEBULIZER1 MI1 (16:35)
== END 2017-01-26 17:35 | disposition home health service (06) | DRG 4 ==
LOC: NEPA 20:20 → NEDA 22:35 → HIME 08-15 02:50 → N05A 10-31 21:40 → PH5A 12-08 20:00
PROVIDERS: ADMIT Hospitalist; ATTEND Hospitalist
PROC: 5A1955Z Respiratory Ventilation, Greater than 96 Consecutive Hours (ICD-10-PCS; principal; 2016-08-14)
PROC: 5A09357 Assistance with Respiratory Ventilation, Less than 24 Consecutive Hours, Continuous Positive Airway Pressure (ICD-10-PCS; 2016-08-14)
PROC: 0BH17EZ Insertion of Endotracheal Airway into Trachea, Via Natural or Artificial Opening (ICD-10-PCS; 2016-08-14)
PROC: 30233N1 Transfusion of Nonautologous Red Blood Cells into Peripheral Vein, Percutaneous Approach (ICD-10-PCS; 2016-08-14)
PROC: 03HY32Z Insertion of Monitoring Device into Upper Artery, Percutaneous Approach (ICD-10-PCS; 2016-08-18)
PROC: 05HM33Z Insertion of Infusion Device into Right Internal Jugular Vein, Percutaneous Approach (ICD-10-PCS; 2016-08-18)
PROC: 4A133B1 Monitoring of Arterial Pressure, Peripheral, Percutaneous Approach (ICD-10-PCS; 2016-08-18)
PROC: 4A133J1 Monitoring of Arterial Pulse, Peripheral, Percutaneous Approach (ICD-10-PCS; 2016-08-18)
PROC: 05H633Z Insertion of Infusion Device into Left Subclavian Vein, Percutaneous Approach (ICD-10-PCS; 2016-08-28)
PROC: 0DH63UZ Insertion of Feeding Device into Stomach, Percutaneous Approach (ICD-10-PCS; 2016-09-01)
PROC: 0DH63UZ Insertion of Feeding Device into Stomach, Percutaneous Approach (ICD-10-PCS; 2016-09-01)
PROC: 05HN33Z Insertion of Infusion Device into Left Internal Jugular Vein, Percutaneous Approach (ICD-10-PCS; 2016-09-10)
PROC: 0BC58ZZ Extirpation of Matter from Right Middle Lobe Bronchus, Via Natural or Artificial Opening Endoscopic (ICD-10-PCS; 2016-09-11)
PROC: 0B113F4 Bypass Trachea to Cutaneous with Tracheostomy Device, Percutaneous Approach (ICD-10-PCS; 2016-09-15)
PROC: 0BJ08ZZ Inspection of Tracheobronchial Tree, Via Natural or Artificial Opening Endoscopic (ICD-10-PCS; 2016-09-15)
PROC: 05H533Z Insertion of Infusion Device into Right Subclavian Vein, Percutaneous Approach (ICD-10-PCS; 2016-09-20)
PROC: 5A1D60Z (ICD-10-PCS; 2016-09-20)
PROC: 02HV33Z Insertion of Infusion Device into Superior Vena Cava, Percutaneous Approach (ICD-10-PCS; 2016-09-29)
DX: A41.52 Sepsis due to Pseudomonas (principal); N17.0 Acute kidney failure with tubular necrosis; G72.81 Critical illness myopathy; J15.0 Pneumonia due to Klebsiella pneumoniae; G93.41 Metabolic encephalopathy; J15.1 Pneumonia due to Pseudomonas; J96.21 Acute and chronic respiratory failure with hypoxia; J18.9 Pneumonia, unspecified organism; N18.6 End stage renal disease; J96.22 Acute and chronic respiratory failure with hypercapnia; I13.2 Hypertensive heart and chronic kidney disease with heart failure and with stage 5 chronic kidney disease, or end stage renal disease; E87.3 Alkalosis; J44.0 Chronic obstructive pulmonary disease with (acute) lower respiratory infection; Z99.11 Dependence on respirator [ventilator] status; Z68.42 Body mass index [BMI] 45.0-49.9, adult; N39.0 Urinary tract infection, site not specified; E66.2 Morbid (severe) obesity with alveolar hypoventilation; B37.49 Other urogenital candidiasis; E87.1 Hypo-osmolality and hyponatremia; J95.851 Ventilator associated pneumonia; J98.11 Atelectasis; I82.612 Acute embolism and thrombosis of superficial veins of left upper extremity; L89.514 Pressure ulcer of right ankle, stage 4; R13.10 Dysphagia, unspecified; E11.22 Type 2 diabetes mellitus with diabetic chronic kidney disease; I50.9 Heart failure, unspecified; E78.00 Pure hypercholesterolemia, unspecified; E03.9 Hypothyroidism, unspecified; E87.6 Hypokalemia; R59.9 Enlarged lymph nodes, unspecified; F17.210 Nicotine dependence, cigarettes, uncomplicated; Z51.5 Encounter for palliative care; Y95 Nosocomial condition; Z80.1 Family history of malignant neoplasm of trachea, bronchus and lung; Z83.3 Family history of diabetes mellitus; K76.0 Fatty (change of) liver, not elsewhere classified; K80.20 Calculus of gallbladder without cholecystitis without obstruction; D64.9 Anemia, unspecified; E83.39 Other disorders of phosphorus metabolism; E87.5 Hyperkalemia; F40.240 Claustrophobia; E83.52 Hypercalcemia; Z99.81 Dependence on supplemental oxygen; Z91.19 Patient's noncompliance with other medical treatment and regimen; R21 Rash and other nonspecific skin eruption; R65.20 Severe sepsis without septic shock; E87.70 Fluid overload, unspecified; Y84.8 Other medical procedures as the cause of abnormal reaction of the patient, or of later complication, without mention of misadventure at the time of the procedure; K29.70 Gastritis, unspecified, without bleeding; G47.00 Insomnia, unspecified; L27.0 Generalized skin eruption due to drugs and medicaments taken internally; Z99.2 Dependence on renal dialysis; R32 Unspecified urinary incontinence; L89.321 Pressure ulcer of left buttock, stage 1; L89.311 Pressure ulcer of right buttock, stage 1; Z78.9 Other specified health status; K59.00 Constipation, unspecified; L29.9 Pruritus, unspecified; L89.219 Pressure ulcer of right hip, unspecified stage; L89.621 Pressure ulcer of left heel, stage 1
CPT/HCPCS: 31500; 31600; 31624; 36430; 36556; 36558; 36589; 36600; 71010; 71275; 76705; 76775; 76937; 77001; 80048; 80053; 80061; 80069; 80074; 80202; 81001; 82140; 82272; 82550; 82552; 82565; 82570; 82728; 82805; 82948; 83036; 83540; 83550; 83605; 83690; 83735; 83880; 83970; 84100; 84132; 84145; 84300; 84443; 84484; 84702; 85007; 85018; 85025; 85027; 85379; 85384; 85610; 85730; 86403; 86703; 86850; 86900; 86901; 86920; 87015; 87040; 87070; 87077; 87086; 87102; 87106; 87116; 87186; 87205; 87206; 87449; 87493; 87641; 89051; 90935; 93005; 93306; 93970; 94002; 94003; 94150; 94620; 94640; 94664; 94762; 94799; 95819; 96374; 96375; A7520; A7521; C1750; C1752; C1769; C9113; J0330; J0360; J0456; J0610; J0690; J0692; J0695; J0696; J1120; J1200; J1325; J1335; J1450; J1580; J1644; J1815; J1940; J1956; J2020; J2060; J2150; J2185; J2212; J2248; J2250; J2270; J2543; J2765; J2920; J2930; J3010; J3260; J3370; J3480; J7030; J7040; J7050; J7512; J7608; J7613; J7682; J7685; L1960; L3260; P9016; P9047; Q9967; S0142